=== PATIENT | female | born 1940 | race Caucasian/White ===

== ENCOUNTER 2023-12-28 14:42 | Outpatient (OUT) | payer MEDICARE, SELFPAY ==
[2023-12-28 15:54] LABS: Anion Gap 14.1; BUN Creatinine Ratio 14.8; Calcium 9.8 mg/dL (8.5-10.1); Carbon Dioxide 25.7 mmol/L (21.0-32.0); Chloride 101 mmol/L (98-107); Estimated GFR (African America 21 (>=60); Estimated GFR (Non-African Ame 17 (>=60); Glucose 85 mg/dL (74-106); Potassium 5.8 mmol/L (3.5-5.1); Sodium 135 mmol/L (136-145)
== END 2023-12-28 14:43 | disposition home or self-care (01) ==
LOC: LAB 14:47
PROVIDERS: PCP Nurse Practitioner Family; Visit Provider Physician Assistant
DX: L08.9 Local infection of the skin and subcutaneous tissue, unspecified (principal)
CPT/HCPCS: 36415; 80048

== ENCOUNTER 2024-01-03 09:32 | Outpatient (OUT) | payer MEDICARE, SELFPAY ==
--- OUTSIDE RECORDS SUMMARY | 2024-01-03 09:54 | XMS_ITS | CCD ---
Author Name Unknown Address [address] [facility] [address] [place] [address] Organization [facility] Care Team Providers Care Production Supply Equipment Tender Name Role Phone ABEBE, JIANLIN Unavailable Unavailable ABEBE, JIANLIN Unavailable Unavailable DURBIN, TAN Unavailable Unavailable DURBIN, TAN Unavailable Unavailable ABEEB, JIANLIN Unavailable Unavailable ABEBE, JIANLIN Unavailable Unavailable PAVLOCK, MAX ANAND Unavailable Unavailable PAVLOCK, MAX ANAND Unavailable Unavailable ABEBE, JIANLIN Unavailable Unavailable ABEBE, JIANLIN Unavailable Unavailable PAVLOCK, MAX ANAND Unavailable Unavailable PAVLOCK, MAX ANAND Unavailable Unavailable IA Unavailable Unavailable ABEBE, JIANLIN Unavailable Unavailable KAEL ADKINS Primary Care Unavailable KAEL ADKINS Attending Unavailable KAEL ADKINS Admitting Unavailable REQUEST, NONE LISTED Admitting Unavaila ble REQUEST, NONE LISTED Attending Unavaila ble ARIANNA, STACIA Primary Care Unavailable MISC, DR COOK Consulting Unavailable ARIANNA, STACIA Admitting Unavailable ARIANNA, STACIA Attending Unavailable ARIANNA, STACIA Primary Care Unavailable ARIANNA, STCAIA Admitting Unavailable ARIANNA, STACIA Attending Unavailable ARIANNA, STACIA Primary Care Unavailable JED ., DR SCRUGGS Admitting Unavailable HOMary Jane ., DR SCRUGGS Attending Unavailable ARIANNA, STACIA Primary Care Unavailable HOMary Jane ., DR SCRUGGS Consulting Unavailable MISC, DR COOK Admitting Unavailable MISC, DR COOK Attending Unavailable ARIANNA, STACIA Primary Care Unavailable MISC, DR COOK Consulting Unavailable JED .DR SCRUGGS Admitting Unavailable JED ., DR SCRUGGS Attending Unavailable ARIANNA, STACIA Primary Care Unavailable HOY ., DR SCRUGGS Consulting Unavailable ARIANNA, STACIA Admitting Unavailable ARIANNA, STACIA Attending Unavailable ARIANNA, STACIA Primary Care Unavailable ARIANNA, STACIA Consulting Unavailable Kael Adkins M Primary Care Unavailable Wendy Scott Attending Unavailable Wendy Scott Admitting Unavailable MIAN, MARQUITA A Attending Unavailable Jed THOMAS, Kael Tinoco Primary Care Provider [phone] Allergies Allergy Classification Reported Allergen(s) Allergy Type Date of Onset Reaction(s) Facility (3 sources) codeine Drug Allergy 12-28-19 13 AOF [facility] Repository (1 source) Dust; Translations: [Dust] Propensity to adverse reactions (disorder) 12-28-[address] [facility] Repository (1 source) glycerin Drug Allergy 12-28-[address] [facility] Repository (1 source) Grass pollen; Translations: [grass pollen] Propensity to adverse reactions (disorder) 12-28-[address] [facility] Repository (3 sources) Latex Drug allergy (disorder) 12-28-[address] [facility] Repository (2 sources) meperidine Drug Allergy 12-28-19 [address] [facility] [facility] Repository (2 sources) mold extract; Translations: [Mold] Drug Allergy 12-28-[address] [facility] Repository (3 sources) nitrofurantoin Drug Allergy 12-23-[address] [facility] Repository (1 source) sulfamethoxazole / trimethoprim Drug Allergy 12-28-[address] [facility] Repository (2 sources) Desonide Drug Allergy 06-13-20 13 [facility] Repository (2 sources) Glycerin Drug Allergy 06-13-20 13 [facility] Repository (2 sources) Lidocaine Drug Allergy 06-13-20 13 [facility] Repository (2 sources) Meperidine Drug Allergy 12-23-19 16 [facility] Repository (2 sources) Sulfonamides (Antibiotic) Drug allergy (disorder) 12-23-19 16 [facility] Repository (2 sources) Grass Pollen-[place], Standard Drug allergy (disorder) 06-13-20 13 [facility] Repository (2 sources) Misc-ENV; Translations: [Misc-ENV] Propensity to adverse reactions (disorder) 06-13-20 13 [facility] Repository (1 source) Codeine Drug Allergy 04-08-20 22 [facility] Repository (1 source) Glycerin Drug Allergy 04-08-20 [facility] Repository (1 source) Latex Drug allergy (disorder) 04-08-20 [facility] Repository (1 source) Lidocaine Drug Allergy 04-08-20 [facility] Repository (1 source) Meperidine Drug Allergy 04-08-20 [facility] Repository (1 source) NSAIDs Drug allergy (disorder) 04-08-20 [facility] Repository (1 source) Sulfonamides (Antibiotic) Drug allergy (disorder) 04-08-20 [facility] Repository (1 source) cat dander Drug allergy (disorder) 04-08-20 [facility] Repository Problems Active Problems Problem Classification Problem Date Documented Date Episodic/Chronic Complications of surgical procedures or medical care (1 source) Other postprocedural complications and disorders of digestive system; Translations: [OTH POSTPROCEDURAL COMPLICATIONS AND DISORDERS OF DGSTV SYS] Onset: 06-27-2018 Coronary atherosclerosis and other heart disease (1 source) Atherosclerotic heart disease of [place] coronary artery without angina pectoris; Translations: [ATHSCL HEART DISEASE OF [place] CORONARY ARTERY W/O ANG PCTRS] Onset: 06-27-2018 Chronic Diabetes mellitus with complications (1 source) Type 2 diabetes mellitus with diabetic neuropathy, unspecified; Translations: [TYPE 2 DIABETES MELLITUS WITH DIABETIC NEUROPATHY, UNSP] Onset: 06-27-2018 Esophageal disorders (1 source) Gastro-esophageal reflux disease without esophagitis; Translations: [GASTRO-ESOPHAGEAL REFLUX DISEASE WITHOUT ESOPHAGITIS] Onset: 06-27-2018 Chronic Essential hypertension (1 source) Essential (primary) hypertension; Translations: [ESSENTIAL (PRIMARY) HYPERTENSION] Onset: 05-24-2018 Chronic Fracture of upper limb (5 sources) Displaced fracture of distal phalanx of unspecified thumb, initial encounter for closed fracture; Translations: [Fracture of unspecified phalanx of unspecified finger, initial encounter for closed fracture] Onset: 11-16-2022 Episodic Mood disorders (1 source) Dysthymic disorder; Translations: [DYSTHYMIC DISORDER] Onset: 11-19-2022 Chronic Mood disorders (1 source) Major depressive disorder, single episode, unspecified; Translations: [MAJOR DEPRESSIVE DISORDER, SINGLE EPISODE, UNSPECIFIED] Onset: 06-27-2018 Open wounds of extremities (1 source) Laceration without foreign body of right index finger without damage to nail, initial encounter; Translations: [LAC W/O FB RT IF W/O DMG NAIL INIT] Onset: 11-19-2022 Episodic Osteoarthritis (1 source) Primary osteoarthritis, right hand; Translations: [PRIMARY OSTEOARTHRITIS RIGHT HAND] Onset: 11-19-2022 Chronic Other connective tissue disease (1 source) Impingement syndrome of right shoulder; Translations: [IMPINGEMENT SYNDROME RIGHT SHOULDER] Onset: 11-19-2022 Episodic Other connective tissue disease (1 source) Trigger finger, right index finger; Translations: [TRIGGER FINGER RIGHT INDEX FINGER] Onset: 11-19-2022 Episodic Other ear and sense organ disorders (1 source) Impacted cerumen of bilateral ears; Translations: [Impacted cerumen, bilateral] 12-14-2023 Episodic Other nervous system disorders (1 source) Complex regional pain syndrome I of right upper limb; Translations: [COMPLEX RGN PAIN SYND I RT UP LIMB] Onset: 11-19-2022 Chronic Unclassified (1 source) Other complications of procedures, not elsewhere classified, initial encounter; Translations: [Other complications of procedures, not elsewhere classified, initial encounter] Onset: 11-03-2023 Urinary tract infections (4 sources) Urinary tract infection, site not specified; Translations: [UTI SITE NOT SPECIFIED] Onset: 01-22-2023 Episodic Past or Other Problems Problem Classification Problem Date Documented Da te Episodic/Chronic Allergic reactions (4 sources) Latex allergy status; Translations: [Allergy status to other antibiotic agents status] Onset: 06-27-2018 Episodic Genitourinary symptoms and ill-defined conditions (4 sources) Unspecified symptoms and signs involving the genitourinary system; Translations: [UNS SYMPTOMS SIGNS INVLV SYSTEM] Onset: 02-08-2022 Episodic Other aftercare (4 sources) Encounter for therapeutic drug level monitoring; Translations: [ENCOUNTER FOR THERAPEUTIC DRUG LEVEL MONITORING] Onset: 05-24-2018 Episodic Other aftercare (1 source) Other manager terminal (current) drug therapy; Translations: [OTHER ALF (CURRENT) DRUG THERAPY] Onset: 05-24-2018 Episodic Other gastrointestinal disorders (4 sources) Fistula of intestine; Translations: [FISTULA OF INTESTINE] Onset: 04-19-2018 Episodic Screening or history of mental health and substance abuse (1 source) Personal history of nicotine dependence; Translations: [PERSONAL HISTORY OF NICOTINE DEPENDENCE] Onset: 06-27-2018 Episodic Unclassified (2 sources) Unknown / UNK(Unknown) Onset: 05-24-2018 Results Test Name Value Interpretation Reference Range Facility CULTURE URINEon 01-22-2023 CULTURE URINE Culture Observations : NO GROWTH. Normal [facility] Comment on above: Performed By: #### U A #### [facility] [address] [address] [address] Noreen Castro UA RANDOM W/MICROSCOPICon BACTERIA NONE SEEN Normal NONE SEEN [facility] Comment on above: Performed By: #### U AMIC #### [facility] [address] [place] [address] Dr. Noreen Castro Bilirubin Ql (U) Negative Normal NEGATIVE [facility] Comment on above: Performed By: #### U AMIC #### [facility] [address] [place] [address] Dr. Noreen Castro CAST NONE SEEN Normal NONE SEEN [facility] Comment on above: Performed By: #### U AMIC #### [facility] [address] [address] [address] Noreen Castro Clarity (U) SL CLOUDY Abnormal CLEAR [facility] Comment on above: Performed By: #### U AMIC #### [facility] [address] [address] [address] Noreen Castro Color (U) LT. YELLOW Normal YELLOW [facility] Comment on above: Performed By: #### U AMIC #### [facility] [address] [address] [address] Noreen Castro Crystals LM Nom (Urine sed) NONE SEEN Normal NONE SEEN [facility] Comment on above: Performed By: #### U AMIC #### [facility] [address] [place] [address] Dr. Noreen Castro Epithelial cells LM Ql (Urine sed) FEW Abnormal NONE SEEN /RARE [facility] Comment on above: Performed By: #### U AMIC #### [facility] [address] [place] [address] Dr. Noreen Castro Glucose Ql (U) Negative Normal NEGATIVE [facility] Comment on above: Performed By: #### U AMIC #### [facility] [address] [address] [address] Noreen Castro Hemoglobin Ql (U) Negative Normal NEGATIVE [facility] Comment on above: Performed By: #### U AMIC #### [facility] [address] [address] [address] Noreen Castro Ketones Ql (U) Negative Normal NEGATIVE [facility] Comment on above: Performed By: #### U AMIC #### [facility] [address] [address] [address] Noreen Castro LEUKOCYTES Negative Normal NEGATIVE [facility] Comment on above: Performed By: #### U AMIC #### [facility] [address] [place] [address] Dr. Noreen Castro MUCOUS NONE SEEN Normal NONE SEEN [facility] Comment on above: Performed By: #### U AMIC #### [facility] [address] [address] [address] Noreen Castro Nitrite Ql (U) Negative Normal NEGATIVE [facility] Comment on above: Performed By: #### U AMIC #### [facility] [address] [place] [address] Dr. Noreen Castro pH (U) 6.0 [pH] Normal 5-9 [facility] Comment on above: Performed By: #### U AMIC #### [facility] [address] [place] [address] Dr. Noreen Castro RBC NONE SEEN Abnormal 0-2 [facility] Comment on above: Performed By: #### U AMIC #### [facility] [address] [place] [address] Dr. Noreen Castro SPEC GRAVITY 1.015 Normal 1.005-<=1.02 5 [facility] Comment on above: Performed By: #### U AMIC #### [facility] [address] [address] [address] Noreen Castro UA PROTEIN TRACE Normal NEGATIVE/ TRACE [facility] Comment on above: Performed By: #### U AMIC #### [facility] [address] [place] [address] Dr. Noreen Castro Urobilinogen Qn (U) 0.2 {Scarlett'U}/dL Normal 0.2 - 1.0 [facility] Comment on above: Performed By: #### U AMIC #### [facility] [address] [place] [address] Dr. Noreen Castro WBC 0-2 Abnormal NONE SEEN [facility] Comment on above: Performed By: #### U AMIC #### [facility] [address] [place] [address] Dr. Noreen Castro BILIRUBIN CONJUGATED (DIRECT )on 11-16-2022 BILI, CONJUGATED 0.1 mg/dL Normal 0.0-0.2 [facility] Comment on above: Performed By: #### D NATASHA, CMP #### [facility] [address] [place] [address] Dr. oNreen Castro CBC AUTO DIFFon 11-16-2022 BASO # 0.1 103/ul Normal 0.0-0.1 [facility] Comment on above: Performed By: #### C BC #### [facility] [address] [place] [address] Dr. Noreen Castro Basophils/100 WBC (Bld) 0.6 % Normal 0.2-2.0 [facility] Comment on above: Performed By: #### C BC #### [facility] [address] [place] [address] Dr. Noreen Castro EO # 0.2 103/ul Normal 0.0-0.7 [facility] Comment on above: Performed By: #### C BC #### [facility] [address] [place] [address] Dr. Noreen Castro Eosinophils/100 WBC (Bld) 1.8 % Normal 0.9-7.0 [facility] Comment on above: Performed By: #### C BC #### [facility] [address] [place] [address] Dr. Noreen Castro Erythrocyte distribution width (RBC) [Ratio] 14.1 % Normal 11.0-15.0 [facility] Comment on above: Performed By: #### C BC #### [facility] [address] [place] [address] Dr. Noreen Castro Hematocrit (Bld) [Volume fraction] 35.0 % Critically low 36.0-48.0 [facility] Comment on above: Performed By: #### C BC #### [facility] [address] [place] [address] Dr. Noreen Castro Hemoglobin (Bld) [Mass/Vol] 12.0 g/dL Normal 12.0-16.0 [facility] Comment on above: Performed By: #### C BC #### [facility] [address] [place] [address] Dr. Noreen Castro IG # 0.07 10e3/ul Critically high 0.00-0.03 [facility] Comment on above: Performed By: #### C BC #### [facility] [address] [place] [address] Dr. Noreen Castro IG % 0.7 % Critically high 0.0-0.5 [facility] Comment on above: Performed By: #### C BC #### [facility] [address] [place] [address] Dr. Noreen Castro LYMPH # 2.8 103/ul Normal 1.2-3.8 [facility] Comment on above: Performed By: #### C BC #### [facility] [address] [place] [address] Dr. Noreen Castro Lymphocytes/100 WBC (Bld) 27.1 % Normal 20.5-60.0 [facility] Comment on above: Performed By: #### C BC #### [facility] [address] [place] [address] Dr. Noreen Castro MANUAL DIFF REQ NO Normal [facility] Comment on above: Performed By: #### C BC #### [facility] [address] [place] [address] Dr. Noreen Castro MCH (RBC) [Entitic mass] 31.1 pg Normal 26.7-34.0 [facility] Comment on above: Performed By: #### C BC #### [facility] [address] [address] [address] Noreen Castro MCHC (RBC) [Mass/Vol] 34.3 g/dL Normal 29.9-35.2 [facility] Comment on above: Performed By: #### C BC #### [facility] [address] [address] [address] Noreen Castro MCV (RBC) [Entitic vol] 90.7 fL Normal 81.0-99.0 [facility] Comment on above: Performed By: #### C BC #### [facility] [address] [address] [address] Noreen Castro MONO # 0.8 103/ul Normal 0.3-0.8 [facility] Comment on above: Performed By: #### C BC #### [facility] [address] [place] [address] Dr. Noreen Castro Monocytes/100 WBC (Bld) 8.0 % Normal 1.7-12.0 [facility] Comment on above: Performed By: #### C BC #### [facility] [address] [place] [address] Dr. Noreen Castro NEUT # 6.3 103/ul Normal 1.4-6.5 [facility] Comment on above: Performed By: #### C BC #### [facility] [address] [place] [address] Dr. Noreen Castro Neutrophils/100 WBC (Bld) 61.8 % Normal 43.0-75.0 [facility] Comment on above: Performed By: #### C BC #### [facility] [address] [place] [address] Dr. Noreen Castro Platelet mean volume (Bld) [Entitic vol] 9.6 fL Normal 9.5-13.5 [facility] Comment on above: Performed By: #### C BC #### [facility] [address] [place] [address] Dr. Noreen Castro PLT 210 103/ul Normal 150-450 [facility] Comment on above: Performed By: #### C BC #### [facility] [address] [address] [address] Noreen Castro RBC 3.86 106/ul Critically low 4.20-5.40 [facility] Comment on above: Performed By: #### C BC #### [facility] [address] [place] [address] Dr. Noreen Castro WBC 10.1 103/ul Normal 4.0-11.0 [facility] Comment on above: Performed By: #### C BC #### [facility] [address] [address] [address] Noreen Castro PROF 14(COMP METB)on 023 Albumin [Mass/Vol] 3.8 g/dL Normal 3.4-5.0 [facility] Comment on above: Performed By: #### D NATASHA, CMP #### [facility] [address] [place] [address] Dr. Noreen Castro Albumin/Globulin [Mass ratio] 1.1 {ratio} Normal [facility] Comment on above: Performed By: #### D NATASHA, CMP #### [facility] [address] [place] [address] Dr. Noreen Castro ALP [Catalytic activity/Vol] 76 U/L Normal 46-116 [facility] Comment on above: Performed By: #### D NATASHA, CMP #### [facility] [address] [place] [address] Dr. Noreen Castro ALT [Catalytic activity/Vol] 15 U/L Normal 14-59 [facility] Comment on above: Performed By: #### D NATASHA, CMP #### [facility] [address] [place] [address] Dr. Noreen Castro Anion gap [Moles/Vol] 12.7 mmol/L Normal [facility] Comment on above: Performed By: #### D NATASHA, CMP #### [facility] [address] [place] [address] Dr. Noreen Castro AST [Catalytic activity/Vol] 19 U/L Normal 15-37 [facility] Comment on above: Performed By: #### D NATASHA, CMP #### [facility] [address] [address] [address] Noreen Castro Bilirubin [Mass/Vol] 0.3 mg/dL Normal 0.2-1.0 [facility] Comment on above: Performed By: #### D NATASHA, CMP #### [facility] [address] [place] [address] Dr. Noreen Castro Calcium [Mass/Vol] 9.6 mg/dL Normal 8.5-10.1 [facility] Comment on above: Performed By: #### D NATASHA, CMP #### [facility] [address] [address] [address] Noreen Castro Chloride [Moles/Vol] 100 mmol/L Normal 98-107 [facility] Comment on above: Performed By: #### D NATASHA, CMP #### [facility] [address] [place] [address] Dr. Noreen Castro CO2 [Moles/Vol] 29.4 mmol/L Normal 21.0-32.0 [facility] Comment on above: Performed By: #### D NATASHA, CMP #### [facility] [address] [address] [address] Noreen Castro Creatinine [Mass/Vol] 2.18 mg/dL Critically high 0.55-1.02 [facility] Comment on above: Performed By: #### D NATASHA, CMP #### [facility] [address] [place] [address] Dr. Noreen Castro EGFR-AF UGANDAN 26 mL/min/1.73m2 Critically low >=60 [facility] Comment on above: Performed By: #### D NATASHA, CMP #### [facility] [address] [place] [address] Dr. Noreen Castro EGFR-NON AF UGANDAN 22 mL/min/1.73m2 Critically low >=60 [facility] Comment on above: Performed By: #### D NATASHA, CMP #### [facility] [address] [place] [address] Dr. Noreen Castro Globulin (S) [Mass/Vol] 3.6 g/dL Normal [facility] Comment on above: Performed By: #### D NATASHA, CMP #### [facility] [address] [address] [address] Noreen Castro Glucose [Mass/Vol] 89 mg/dL Normal 74-106 [facility] Comment on above: Performed By: #### D NATASHA, CMP #### [facility] [address] [address] [address] Noreen Castro Potassium [Moles/Vol] 5.1 mmol/L Normal 3.5-5.1 [facility] Comment on above: Performed By: #### D NATASHA, CMP #### [facility] [address] [address] [address] Noreen Castro Protein [Mass/Vol] 7.4 g/dL Normal 6.4-8.2 [facility] Comment on above: Performed By: #### D NATASHA, CMP #### [facility] [address] [place] [address] Dr. Noreen Castro Sodium [Moles/Vol] 137 mmol/L Normal 136-145 [facility] Comment on above: Performed By: #### D NATASHA, CMP #### [facility] [address] [address] [address] Noreen Castro Urea nitrogen [Mass/Vol] 27.0 mg/dL Critically high 7.0-18.0 [facility] Comment on above: Performed By: #### D NATASHA, CMP #### [facility] [address] [place] [address] Dr. Noreen Castro Urea nitrogen/Creatinin e [Mass ratio] 12.4 mg/mg Normal [facility] Comment on above: Performed By: #### D NATASHA, CMP #### [facility] [address] [place] [address] Dr. Noreen Castro Provider Orderson 08-31-2022 Provider Orders [id number] Normal [facility] C Urineon 08-30-2022 C Urine <10,000 cfu/ml Normal [facility] Comment on above: Performed By: #### [id number] #### [facility] (DEFAULT) [address] [place] [address] UA Standardon 08-28-2022 Breakpoint UA Normal [facility] Comment on above: Performed By: #### 1 [id number] #### [facility] (DEFAULT) [address] [place] [address] Color (U) Yellow Normal [facility] Comment on above: Performed By: #### 1 [id number] #### [facility] (DEFAULT) [address] [place] [id number] Glucose (U) [Mass/Vol] Negative [facility] Comment on above: Performed By: #### 1 [id number] #### [facility] (DEFAULT) [address] [place] [address] Ketones Ql (U) Negative Normal [facility] [facility] Comment on above: Performed By: #### 1 [id number] #### [facility] (DEFAULT) [address] [place] [address] UA Bilirubin Negative Normal [facility] Comment on above: Performed By: #### 1 [id number] #### [facility] (DEFAULT) [address] [place] [id number] UA Blood Negative Normal NEGATIVE [facility] Comment on above: Performed By: #### 1 [id number] #### [facility] (DEFAULT) [address] [place] [id number] UA Clarity CLEAR Normal CLEAR [facility] Comment on above: Performed By: #### 1 [id number] #### [facility] (DEFAULT) [address] [place] [id number] UA Leuk Est TRACE Abnormal NEGATIVE [facility] Comment on above: Performed By: #### 1 [id number] #### [facility] (DEFAULT) [address] [place] [address] UA Nitrite Negative Normal NEGATIVE [facility] Comment on above: Performed By: #### 1 [id number] #### [facility] (DEFAULT) [address] [place] [address] UA pH 6.0 Normal 5-8 [facility] Comment on above: Performed By: #### 1 [id number] #### [facility] (DEFAULT) [address] [place] [id number] UA Protein TRACE Abnormal NEGATIVE [facility] Comment on above: Performed By: #### 1 [id number] #### [facility] (DEFAULT) [address] [place] [address] UA Spec Grav 1.020 Normal 1.001-1.035 [facility] Comment on above: Performed By: #### 1 [id number] #### [facility] (DEFAULT) [address] [place] [address] UA Urobilinogen 0.2 mg/dL Normal 0.2-1.0 [facility] Comment on above: Performed By: #### 1 [id number] #### [facility] (DEFAULT) [address] [place] [address] Urine Source Clean Catch Normal [facility] Comment on above: Performed By: #### 1 [id number] #### [facility] (DEFAULT) [address] [place] [address] BILIRUBIN CONJUGATED (DIRECT )on 02-11-2022 BILI, CONJUGATED 0.1 mg/dL Normal 0.0-0.3 [facility] Comment on above: Performed By: #### C MP DBIL #### [facility] [address] [place] [address] Dr. Noreen Castro CBC AUTO DIFFon 02-11-2022 BASO # 0.1 103/ul Normal 0.0-0.1 [facility] Comment on above: Performed By: #### U A #### [facility] [address] [place] [address] Dr. Noreen Castro Basophils/100 WBC (Bld) 0.6 % Normal 0.2-2.0 [facility] Comment on above: Performed By: #### U A #### [facility] [address] [place] [address] Dr. Noreen Castro EO # 0.2 103/ul Normal 0.0-0.7 [facility] Comment on above: Performed By: #### U A #### [facility] [address] [place] [address] Dr. Noreen Castro Eosinophils/100 WBC (Bld) 1.2 % Normal 0.9-7.0 [facility] Comment on above: Performed By: #### U A #### [facility] [address] [place] [address] Dr. Noreen Castro Erythrocyte distribution width (RBC) [Ratio] 14.4 % Normal 11.0-15.0 [facility] Comment on above: Performed By: #### U A #### [facility] [address] [place] [address] Dr. Noreen Castro Hematocrit (Bld) [Volume fraction] 39.0 % Normal 36.0-48.0 [facility] Comment on above: Performed By: #### U A #### [facility] [address] [place] [address] Dr. Noreen Castro Hemoglobin (Bld) [Mass/Vol] 12.3 g/dL Normal 12.0-16.0 [facility] Comment on above: Performed By: #### U A #### [facility] [address] [place] [address] Dr. Noreen Castro IG # 0.20 10e3/ul Critically high 0.00-0.03 [facility] Comment on above: Performed By: #### U A #### [facility] [address] [place] [address] Dr. Noreen Castro IG % 1.4 % Critically high 0.0-0.5 [facility] Comment on above: Performed By: #### U A #### [facility] [address] [place] [address] Dr. Noreen Castro LYMPH # 4.4 103/ul Critically high 1.2-3.8 [facility] Comment on above: Performed By: #### U A #### [facility] [address] [place] [address] Dr. Noreen Castro Lymphocytes/100 WBC (Bld) 30.4 % Normal 20.5-60.0 [facility] Comment on above: Performed By: #### U A #### [facility] [address] [place] [address] Dr. Noreen Castro MANUAL DIFF REQ NO Normal [facility] Comment on above: Performed By: #### U A #### [facility] [address] [place] [address] Dr. Noreen Castro MCH (RBC) [Entitic mass] 30.8 pg Normal 26.7-34.0 [facility] Comment on above: Performed By: #### U A #### [facility] [address] [place] [address] Dr. Noreen Castro MCHC (RBC) [Mass/Vol] 31.5 g/dL Normal 29.9-35.2 [facility] Comment on above: Performed By: #### U A #### [facility] [address] [place] [address] Dr. Noreen Castro MCV (RBC) [Entitic vol] 97.5 fL Normal 81.0-99.0 [facility] Comment on above: Performed By: #### U A #### [facility] [address] [place] [address] Dr. Noreen Castro MONO # 1.0 103/ul Critically high 0.3-0.8 [facility] Comment on above: Performed By: #### U A #### [facility] [address] [place] [address] Dr. Noreen Castro Monocytes/100 WBC (Bld) 6.8 % Normal 1.7-12.0 [facility] Comment on above: Performed By: #### U A #### [facility] [address] [place] [address] Dr. Noreen Castro NEUT # 8.6 103/ul Critically high 1.4-6.5 [facility] Comment on above: Performed By: #### U A #### [facility] [address] [place] [address] Dr. Noreen Castro Neutrophils/100 WBC (Bld) 59.6 % Normal 43.0-75.0 [facility] Comment on above: Performed By: #### U A #### [facility] [address] [place] [address] Dr. Noreen Castro Platelet mean volume (Bld) [Entitic vol] 9.9 fL Normal 9.5-13.5 [facility] Comment on above: Performed By: #### U A #### [facility] [address] [place] [address] Dr. Noreen Castro PLT 283 103/ul Normal 150-450 [facility] Comment on above: Performed By: #### U A #### [facility] [address] [place] [address] Dr. Noreen Castro RBC 4.00 106/ul Critically low 4.20-5.40 [facility] Comment on above: Performed By: #### U A #### [facility] [address] [place] [address] Dr. Noreen Castro WBC 14.5 103/ul Critically high 4.0-11.0 [facility] Comment on above: Performed By: #### U A #### [facility] [address] [place] [address] Dr. Noreen Castro CULTURE URINEon 02-11-2022 CULTURE URINE Isolate 1 Escherichia coli >100,000 cfu/mL of ORGANISM 1 Escherichia coli ANTIBIOTIC M.I.C RX STATUS Ampicillin >=32 R F Ampicillin/Sulbactam 4 S F Piperacillin/Tazobactam <=4 S F Cefazolin 8 S F Ceftazidime <=1 S F Ceftriaxone <=1 S F Ertapenem <=0.5 S F Imipenem <=0.25 S F Amikacin <=2 S F Gentamicin <=1 S F Tobramycin <=1 S F Ciprofloxacin >=4 R F Levofloxacin >=8 R F Nitrofurantoin <=16 S F Trimethoprim/Sulfamethoxaz ole >=320 R F Normal [facility] Comment on above: Performed By: #### U RCX #### [facility] [address] [place] [address] Dr. Noreen Castro DRUG SCREEN RAPID (URINE)on 02-11-2022 AMP Negative Normal NEGATIVE [facility] Comment on above: Performed By: #### U A #### [facility] [address] [place] [address] Dr. Noreen Castro BAR Negative Normal NEGATIVE [facility] Comment on above: Performed By: #### U A #### [facility] [address] [place] [address] Dr. Noreen Castro BUP Negative Normal NEGATIVE [facility] Comment on above: Performed By: #### U A #### [facility] [address] [place] [address] Dr. Noreen Castor BZO Negative Normal NEGATIVE [facility] Comment on above: Performed By: #### U A #### [facility] [address] [place] [address] Dr. Noreen Castro VERONICA Negative Normal NEGATIVE [facility] Comment on above: Performed By: #### U A #### [facility] [address] [place] [address] Dr. Noreen Castro CUT-OFFS SEE BELOW Normal [facility] Comment on above: Result Comment: AMP (Amphetamine): 500ng/mL, BAR (Barbituates): 200 ng/mL, BZO (Benzodiazepines): 150 ng/mL, BUP (Buprenorphine): 10 ng/mL, VERONICA (Cocaine): 150 ng/mL, mAMP (Methamphetamine): 500 ng/mL, MTD (Methadone): 200 ng/mL, OPI (Opiates): 100 ng/mL, OXY (Oxycodone): 100 ng/mL, PCP (Phencyclidine): 25 ng/mL, PPX (Propoxyphene): 300 ng/mL, THC (Cannabinoids): 50 ng/mL, TCA (Trycyclic Antidepressants): 300 ng/mL Performed By: #### U A #### [facility] [address] [place] [address] Dr. Noreen Castro DRUG CUT HEADER DRUG CLASS TEST SYST EM CUT-OFF CONCENTRATIONS ARE FOLLOWS: Normal [facility] Comment on above: Performed By: #### U A #### [facility] [address] [place] [address] Dr. Noreen Castro mAMP Negative Normal NEGATIVE [facility] Comment on above: Performed By: #### U A #### [facility] [address] [place] [address] Dr. Noreen Castro MTD Negative Normal NEGATIVE [facility] Comment on above: Performed By: #### U A #### [facility] [address] [place] [address] Dr. Noreen Castro OPI Negative Normal NEGATIVE [facility] Comment on above: Performed By: #### U A #### [facility] [address] [place] [address] Dr. Noreen Castro OXY Negative Normal NEGATIVE [facility] Comment on above: Performed By: #### U A #### [facility] [address] [place] [address] Dr. Noreen Castro PCP Negative Normal NEGATIVE [facility] Comment on above: Performed By: #### U A #### [facility] [address] [place] [address] Dr. Noreen Castro PPX Negative Normal NEGATIVE [facility] Comment on above: Performed By: #### U A #### [facility] [address] [place] [address] Dr. Noreen Castro TCA Positive Abnormal NEGATIVE [facility] Comment on above: Performed By: #### U A #### [facility] [address] [place] [address] Dr. Noreen Castro THC Negative Normal NEGATIVE [facility] Comment on above: Performed By: #### U A #### [facility] [address] [place] [address] Dr. Noreen Castro PROF 14(COMP METB)on 022 Albumin [Mass/Vol] 3.9 g/dL Normal 3.4-5.0 [facility] Comment on above: Performed By: #### C MP, DBIL #### [facility] [address] [place] [address] Dr. Noreen Castro Albumin/Globulin [Mass ratio] 0.9 {ratio} Normal [facility] Comment on above: Performed By: #### C MP, DBIL #### [facility] [address] [place] [address] Dr. Noreen Castro ALP [Catalytic activity/Vol] 76 U/L Normal 46-116 [facility] Comment on above: Performed By: #### C MP, DBIL #### [facility] [address] [address] [address] Noreen Castro ALT [Catalytic activity/Vol] 39 U/L Normal 14-59 [facility] Comment on above: Performed By: #### C MP, DBIL #### [facility] [address] [address] [address] Noreen Castro Anion gap [Moles/Vol] 18.4 mmol/L Normal [facility] Comment on above: Performed By: #### C MP, DBIL #### [facility] [address] [address] [address] Noreen Castro AST [Catalytic activity/Vol] 30 U/L Normal 15-37 [facility] Comment on above: Performed By: #### C MP, DBIL #### [facility] [address] [place] [address] Dr. Noreen Castro Bilirubin [Mass/Vol] 0.4 mg/dL Normal 0.2-1.3 [facility] Comment on above: Performed By: #### C MP, DBIL #### [facility] [address] [address] [address] Noreen Castro Calcium [Mass/Vol] 9.2 mg/dL Normal 8.5-10.1 [facility] Comment on above: Performed By: #### C MP, DBIL #### [facility] [address] [place] [address] Dr. Noreen Castro Chloride [Moles/Vol] 99 mmol/L Normal 98-107 [facility] Comment on above: Performed By: #### C MP, DBIL #### [facility] [address] [address] [address] Noreen Castro CO2 [Moles/Vol] 22.2 mmol/L Normal 22.0-30.0 [facility] Comment on above: Performed By: #### C MP, DBIL #### [facility] [address] [address] [address] Noreen Castro Creatinine [Mass/Vol] 2.72 mg/dL Critically high 0.52-1.04 [facility] Comment on above: Performed By: #### C MP, DBIL #### [facility] [address] [address] [address] Noreen Castro EGFR-AF UGANDAN 20 mL/min/1.73m2 Critically low >=60 [facility] Comment on above: Performed By: #### C MP, DBIL #### [facility] [address] [address] [address] Noreen Castro EGFR-NON AF UGANDAN 17 mL/min/1.73m2 Critically low >=60 [facility] Comment on above: Performed By: #### C MP, DBIL #### [facility] [address] [address] [address] Noreen Castro Globulin (S) [Mass/Vol] 4.3 g/dL Normal [facility] Comment on above: Performed By: #### C MP, DBIL #### [facility] [address] [address] [address] Noreen Castro Glucose [Mass/Vol] 143 mg/dL Critically high 74-106 T [facility] Comment on above: Performed By: #### C MP, DBIL #### [facility] [address] [address] [address] Noreen Castro Potassium [Moles/Vol] 5.6 mmol/L Critically high 3.4-5.0 [facility] Comment on above: Performed By: #### C MP, DBIL #### [facility] [address] [address] [address] Noreen Castro Protein [Mass/Vol] 8.2 g/dL Normal 6.1-8.2 [facility] Comment on above: Performed By: #### C MP, DBIL #### [facility] [address] [address] [address] Noreen Castro Sodium [Moles/Vol] 134 mmol/L Critically low 137-145 Th [facility] Comment on above: Performed By: #### C MP, DBIL #### [facility] [address] [address] [address] Noreen Castro Urea nitrogen [Mass/Vol] 36.0 mg/dL Critically high 7.0-18.0 [facility] Comment on above: Performed By: #### C GALE, DBIL #### [facility] [address] [place] [address] Dr. Noreen Castro Urea nitrogen/Creatinin e [Mass ratio] 13.2 mg/mg Normal [facility] Comment on above: Performed By: #### C GALE, DBIL #### [facility] [address] [place] [address] Dr. Noreen Castro UA RANDOMon 02-08-2022 Bilirubin Ql (U) Negative Normal NEGATIVE [facility] Comment on above: Performed By: #### U A #### [facility] [address] [place] [address] Dr. Noreen Castro Clarity (U) SL CLOUDY Abnormal CLEAR [facility] Comment on above: Performed By: #### U A #### [facility] [address] [place] [address] Dr. Noreen Castro Color (U) LT. YELLOW Normal YELLOW [facility] Comment on above: Performed By: #### U A #### [facility] [address] [place] [address] Dr. Noreen Castro Glucose Ql (U) Negative Normal NEGATIVE [facility] Comment on above: Performed By: #### U A #### [facility] [address] [place] [address] Dr. Noreen Castro Hemoglobin Ql (U) TRACE-INTACT Abnormal NEGATIVE [facility] Comment on above: Performed By: #### U A #### [facility] [address] [place] [address] Dr. Noreen Castro Ketones Ql (U) Negative Normal NEGATIVE [facility] Comment on above: Performed By: #### U A #### [facility] [address] [place] [address] Dr. Noreen Castro LEUKOCYTES MODERATE Abnormal NEGATIVE [facility] Comment on above: Performed By: #### U A #### [facility] [address] [place] [address] Dr. Noreen Castro Nitrite Ql (U) Positive Abnormal NEGATIVE [facility] Comment on above: Performed By: #### U A #### [facility] [address] [place] [address] Dr. Noreen Castro pH (U) 5.0 [pH] Normal 5-9 [facility] Comment on above: Performed By: #### U A #### [facility] [address] [place] [address] Dr. Noreen Castro SPEC GRAVITY 1.020 Normal 1.005-<=1.02 5 [facility] Comment on above: Performed By: #### U A #### [facility] [address] [place] [address] Dr. Noreen PALM PROTEIN TRACE Normal NEGATIVE/ TRACE [facility] Comment on above: Performed By: #### U A #### [facility] [address] [place] [address] Dr. Noreen Castro Urobilinogen Qn (U) 0.2 {Scarlett'U}/dL Normal 0.2 - 1.0 [facility] Comment on above: Performed By: #### U A #### [facility] [address] [place] [address] Dr. Noreen Castro CULTURE URINEon 02-01-2022 CULTURE URINE Culture Observations : No growth Normal [facility] Comment on above: Performed By: #### U RCX #### [facility] [address] [place] [address] Dr. Noreen Castro UA RANDOMon 02-01-2022 Bilirubin Ql (U) Negative Normal NEGATIVE [facility] Comment on above: Performed By: #### U A #### [facility] [address] [place] [address] Dr. Noreen Castro Clarity (U) CLEAR Normal CLEAR [facility] Comment on above: Performed By: #### U A #### [facility] [address] [place] [address] Dr. Noreen Castro Color (U) YELLOW Normal YELLOW [facility] Comment on above: Performed By: #### U A #### [facility] [address] [place] [address] Dr. Noreen Castro Glucose Ql (U) Negative Normal NEGATIVE [facility] Comment on above: Performed By: #### U A #### [facility] [address] [place] [address] Dr. Noreen Castro Hemoglobin Ql (U) SMALL Abnormal NEGATIVE [facility] Comment on above: Performed By: #### U A #### [facility] [address] [place] [address] Dr. Noreen Castro Ketones Ql (U) Negative Normal NEGATIVE [facility] Comment on above: Performed By: #### U A #### [facility] [address] [place] [address] Dr. Noreen Castro LEUKOCYTES Negative Normal NEGATIVE [facility] Comment on above: Performed By: #### U A #### [facility] [address] [place] [address] Dr. Noreen Castro Nitrite Ql (U) Negative Normal NEGATIVE [facility] Comment on above: Performed By: #### U A #### [facility] [address] [place] [address] Dr. Noreen Castro pH (U) 5.0 [pH] Normal 5-9 [facility] Comment on above: Performed By: #### U A #### [facility] [address] [place] [address] Dr. Noreen Castro SPEC GRAVITY 1.025 Normal 1.005-<=1.02 5 [facility] Comment on above: Performed By: #### U A #### [facility] [address] [place] [address] Dr. Noreen Castro UA PROTEIN Negative Normal NEGATIVE/ TRACE [facility] Comment on above: Performed By: #### U A #### [facility] [address] [place] [address] Dr. Noreen Castro Urobilinogen Qn (U) 0.2 {Scarlett'U}/dL Normal 0.2 - 1.0 [facility] Comment on above: Performed By: #### U A #### [facility] [address] [place] [address] Dr. Noreen Castro POC GLUCOSE LABon 07-19-2018 Glucose mass conc 97 mg/dL Normal 70-[address] [facility] Comment on above: Performed By: #### 0 0121 ####[facility] [place] [address], [facility] Glucose mass conc 110 mg/dL High 70-[address] [facility] Comment on above: Performed By: #### 0 0121 ####[facility] [place] [address], [facility] Glucose mass conc 93 mg/dL Normal 70-[address] [facility] Comment on above: Performed By: #### 0 0121 ####[facility] [place] [address], [facility] Glucose mass conc 92 mg/dL Normal 70-[address] [facility] Comment on above: Performed By: #### 0 0121 ####[facility] [facility].[address] CBC COMPLETE BLOOD COUNTon 0 07-18-2018 Erythrocyte distribution width Auto Ratio (RBC) 14.0 % Normal 11.5-15.0 [facility] Comment on above: Order Comment: No: D o not add to previous draw Performed By: #### 0 0121 ####[facility] [facility] Hematocrit Auto Volume Fraction (Bld) 32.3 % Low 36.0-45.[address] [facility] Comment on above: Order Comment: No: D o not add to previous draw Performed By: #### 0 0121 ####[facility] [facility] [id number], [facility] Hemoglobin mass conc (Bld) 10.1 g/dL Low 12.0-15.[address] [facility] Comment on above: Order Comment: No: D o not add to previous draw Performed By: #### 0 0121 ####[facility] MCH Auto Entitic mass (RBC) 29.6 pg Normal 27.0-33.[address] [facility] Comment on above: Order Comment: No: D o not add to previous draw Performed By: #### 0 0121 ####[facility] MCHC Auto mass conc (RBC) 31.3 g/dL Low 32.0-35.[address] [facility] Comment on above: Order Comment: No: D o not add to previous draw Performed By: #### 0 0121 ####[facility] [facility].[address] MCV Auto Entitic volume (RBC) 94.7 fL Normal 82.0-98.[address] [facility] Comment on above: Order Comment: No: D o not add to previous draw Performed By: #### 0 0121 ####[facility]3000 [facility].[address] Nucleated RBC/100 WBC Ratio (Bld) 0 % Normal 0-[address] [facility] Comment on above: Order Comment: No: D o not add to previous draw Performed By: #### 0 0121 ####[facility]3000 [facility].[address] PLAT CNT 372 10*3/uL Normal 150-[address] [facility] Comment on above: Order Comment: No: D o not add to previous draw Performed By: #### 0 0121 ####[facility]3000 [facility].[address] RBC Auto #/vol (Bld) 3.41 10*6/uL Low 3.80-5.[address] [facility] Comment on above: Order Comment: No: D o not add to previous draw Performed By: #### 0 0121 ####[facility]3000 [facility].[address] WBC Auto #/vol (Bld) 8.69 10*3/uL Normal 4.00-10.[address] [facility] Comment on above: Order Comment: No: D o not add to previous draw Performed By: #### 0 0121 ####[facility] [place] [address], [place] POC GLUCOSE LABon 07-18-2018 Glucose mass conc 101 mg/dL High 70-[address] [facility] Comment on above: Performed By: #### 0 0121 ####[facility] [place] [address], [place] Glucose mass conc 117 mg/dL High 70-[address] [facility] Comment on above: Performed By: #### 0 0121 ####[facility] [place] [address], [place] Glucose mass conc 94 mg/dL Normal 70-[address] [facility] Comment on above: Performed By: #### 0 0121 ####[facility] [place] [address], [place] Glucose mass conc 92 mg/dL Normal 70-[address] [facility] Comment on above: Performed By: #### 0 0121 ####[facility] [place] [address], [place] POC GLUCOSE LABon 07-17-2018 Glucose mass conc 105 mg/dL High 70-[address] [facility] Comment on above: Performed By: #### 0 0121 ####[facility] [place] [address], [place] Glucose mass conc 126 mg/dL High 70-[address] [facility] Comment on above: Performed By: #### 0 0121 ####[facility] [place] [address], [place] Glucose mass conc 118 mg/dL High 70-[address] [facility] Comment on above: Performed By: #### 0 0121 ####[facility] [place] [address], [facility] Glucose mass conc 99 mg/dL Normal 70-[address] [facility] Comment on above: Performed By: #### 0 0121 ####[facility] [place] [address], [facility] BASIC METABOLIC PANELon 09-0 Calcium mass conc 9.4 mg/dL Normal 8.6-10.[address] [facility] Comment on above: Order Comment: No: D o not add to previous draw Performed By: #### 0 0121 ####[facility] [place] [address], [facility] Chloride molar conc 104 mmol/L Normal 98-[address] [facility] Comment on above: Order Comment: No: D o not add to previous draw Performed By: #### 0 0121 ####[facility] [place] [address], [facility] CO2 molar conc 24 mmol/L Normal 21-[address] [facility] Comment on above: Order Comment: No: D o not add to previous draw Performed By: #### 0 0121 ####[facility] [place] [address], [facility] Creatinine mass conc 1.11 mg/dL Normal 0.60-1.[address] [facility] Comment on above: Order Comment: No: D o not add to previous draw Performed By: #### 0 0121 ####[facility] [place] [address], [facility] GFR/1.73 sq M predicted among blacks MDRD vol rate/area (S/P/Bld) 57 ml/min/1.73sq m Abnormal >[address] [facility] Comment on above: Order Comment: No: D o not add to previous draw Result Comment: Calc ulation may not be valid for patients over 70 years Performed By: #### 0 0121 ####[facility] GFR/1.73 sq M predicted among non-blacks MDRD vol rate/area (S/P/Bld) 47 ml/min/1.73sq m Abnormal >[address] [facility] Comment on above: Order Comment: No: D o not add to previous draw Result Comment: Calc ulation may not be valid for patients over 70 years Performed By: #### 0 0121 ####[facility]3000 [facility].[address] Glucose mass conc 104 mg/dL High 70-[address] [facility] Comment on above: Order Comment: No: D o not add to previous draw Performed By: #### 0 0121 ####[address] Potassium molar conc 4.6 mmol/L Normal 3.5-5.[address] [facility] Comment on above: Order Comment: No: D o not add to previous draw Performed By: #### 0 0121 ####[place] [address] [facility].[address] Sodium molar conc 135 mmol/L Low 136-[address] [facility] Comment on above: Order Comment: No: D o not add to previous draw Performed By: #### 0 0121 ####[place] [address] [facility].[address] Urea nitrogen mass conc 22 mg/dL Normal 7-[address] [facility] Comment on above: Order Comment: No: D o not add to previous draw Performed By: #### 0 0121 ####[address] [place] [address], [facility] CBC W/DIFFon 07-16-2018 ABS BASOPHILS 0.1 10*3/uL Normal 0.0-0.[address] [facility] Comment on above: Order Comment: No: D o not add to previous draw Performed By: #### 0 0121 ####[address] [place] [address], [place] ABS IMM GRANS 0.3 10*3/uL High 0.0-0.[address] [facility] Comment on above: Order Comment: No: D o not add to previous draw Performed By: #### 0 0121 ####[facility] [place] [address], [facility] ABS NEUTROPHILS 6.5 10*3/uL Normal 1.6-7.[address] [facility] Comment on above: Order Comment: No: D o not add to previous draw Performed By: #### 0 0121 ####[address] Basophils Auto #/vol (Bld) 0.6 % Normal 0.0-1.[address] [facility] Comment on above: Order Comment: No: D o not add to previous draw Performed By: #### 0 0121 ####[facility] Eosinophils Auto #/vol (Bld) 0.3 10*3/uL Normal 0.0-0.[address] [facility] Comment on above: Order Comment: No: D o not add to previous draw Performed By: #### 0 0121 ####[address] Eosinophils/100 WBC Auto (Bld) 2.5 % Normal 0.0-6.[address] [facility] Comment on above: Order Comment: No: D o not add to previous draw Performed By: #### 0 0121 ####[address] Erythrocyte distribution width Auto Ratio (RBC) 14.4 % Normal 11.5-15.[address] [facility] Comment on above: Order Comment: No: D o not add to previous draw Performed By: #### 0 0121 ####[address] [place] [address], [place] Hematocrit Auto Volume Fraction (Bld) 31.7 % Low 36.0-45.[address] [facility] Comment on above: Order Comment: No: D o not add to previous draw Performed By: #### 0 0121 ####[facility] Hemoglobin mass conc (Bld) 10.1 g/dL Low 12.0-15.[address] [facility] Comment on above: Order Comment: No: D o not add to previous draw Performed By: #### 0 0121 ####[address] IMMATURE GRANS 2.8 % High 0.0-1.[address] [facility] Comment on above: Order Comment: No: D o not add to previous draw Performed By: #### 0 0121 ####[place] [address] [address] Lymphocytes Auto #/vol (Bld) 2.4 10*3/uL Normal 1.2-4.[address] [facility] Comment on above: Order Comment: No: D o not add to previous draw Performed By: #### 0 0121 ####[address] Lymphocytes/100 WBC Auto (Bld) 22.1 % Normal 20.0-45.[address] [facility] Comment on above: Order Comment: No: D o not add to previous draw Performed By: #### 0 0121 ####[place] [address], [facility] MCH Auto Entitic mass (RBC) 30.3 pg Normal 27.0-33.[address] [facility] Comment on above: Order Comment: No: D o not add to previous draw Performed By: #### 0 0121 ####[address] [address], [place] MCHC Auto mass conc (RBC) 31.9 g/dL Low 32.0-35.[address] [facility] Comment on above: Order Comment: No: D o not add to previous draw Performed By: #### 0 0121 ####[facility]3000 [facility].[address] MCV Auto Entitic volume (RBC) 95.2 fL Normal 82.0-98.[address] [facility] Comment on above: Order Comment: No: D o not add to previous draw Performed By: #### 0 0121 ####[facility] Monocytes Auto #/vol (Bld) 1.2 10*3/uL High 0.1-1.[address] [facility] Comment on above: Order Comment: No: D o not add to previous draw Performed By: #### 0 0121 ####[facility] MONOS 11.0 % Normal 5.0-12.[address] [facility] Comment on above: Order Comment: No: D o not add to previous draw Performed By: #### 0 0121 ####[facility] Neutrophils/100 WBC Auto (Bld) 61.0 % Normal 40.0-72.[address] [facility] Comment on above: Order Comment: No: D o not add to previous draw Performed By: #### 0 0121 ####[facility]3000 [facility].[address] Nucleated RBC/100 WBC Ratio (Bld) 0 % Normal 0-[address] [facility] Comment on above: Order Comment: No: D o not add to previous draw Performed By: #### 0 0121 ####[facility] [place] [address], [facility] PLAT CNT 450 10*3/uL High 150-[address] [facility] Comment on above: Order Comment: No: D o not add to previous draw Performed By: #### 0 0121 ####[facility] [place].[address] RBC Auto #/vol (Bld) 3.33 10*6/uL Low 3.80-5.[address] [facility] Comment on above: Order Comment: No: D o not add to previous draw Performed By: #### 0 0121 ####[facility]3000 [facility].[address] WBC Auto #/vol (Bld) 10.68 10*3/uL High 4.00-10.[address] [facility] Comment on above: Order Comment: No: D o not add to previous draw Performed By: #### 0 0121 ####[facility] [place].[address] MAGNESIUM BLOODon 07-16-2018 Magnesium mass conc 2.3 mg/dL Normal 1.9-2.[address] [facility] Comment on above: Order Comment: No: D o not add to previous draw Performed By: #### 0 0121 ####[facility] [place].[address] PHOSPHORUS BLOODon 8 Phosphate mass conc 3.6 mg/dL Normal 2.5-5.[address] [facility] Comment on above: Order Comment: No: D o not add to previous draw Performed By: #### 0 0121 ####[facility] [place].[address] POC GLUCOSE LABon 07-16-2018 Glucose mass conc 111 mg/dL High 70-[address] [facility] Comment on above: Performed By: #### 0 0121 ####[facility] [place].[address] Glucose mass conc 159 mg/dL High 70-[address] [facility] Comment on above: Performed By: #### 0 0121 ####[facility] [place] [address], [facility] Glucose mass conc 103 mg/dL High 70-[address] [facility] Comment on above: Performed By: #### 0 0121 ####[facility] [place] [address], [place] Glucose mass conc 99 mg/dL Normal 70-[address] [facility] Comment on above: Performed By: #### 0 0121 ####[facility] [place] [address], [facility] BASIC METABOLIC PANELon Calcium mass conc 8.8 mg/dL Normal 8.6-10.[address] [facility] Comment on above: Order Comment: No: D o not add to previous draw Performed By: #### 0 0121 ####[facility] [place] [address], [place] Chloride molar conc 106 mmol/L Normal 98-[address] [facility] Comment on above: Order Comment: No: D o not add to previous draw Performed By: #### 0 0121 ####[facility] [place] [address], [place] CO2 molar conc 23 mmol/L Normal 21-[address] [facility] Comment on above: Order Comment: No: D o not add to previous draw Performed By: #### 0 0121 ####[facility] [place] [address], [place] Creatinine mass conc 1.01 mg/dL Normal 0.60-1.[address] [facility] Comment on above: Order Comment: No: D o not add to previous draw Performed By: #### 0 0121 ####[facility] [place] [address], [place] GFR/1.73 sq M predicted among blacks MDRD vol rate/area (S/P/Bld) mL/min/{1.73_m2} Normal >[address] [facility] Comment on above: Order Comment: No: D o not add to previous draw Result Comment: Calc ulation may not be valid for patients over 70 years Performed By: #### 0 0121 ####[facility] [facility] [place] [address], [facility] GFR/1.73 sq M predicted among non-blacks MDRD vol rate/area (S/P/Bld) 53 ml/min/1.73sq m Abnormal >[address] [facility] Comment on above: Order Comment: No: D o not add to previous draw Result Comment: Calc ulation may not be valid for patients over 70 years Performed By: #### 0 0121 ####[facility] [facility] [place] [address], [facility] Glucose mass conc 139 mg/dL High 70-[address] [facility] Comment on above: Order Comment: No: D o not add to previous draw Performed By: #### 0 0121 ####[facility] [facility] [place] [address], [facility] Potassium molar conc 4.1 mmol/L Normal 3.5-5.[address] [facility] Comment on above: Order Comment: No: D o not add to previous draw Performed By: #### 0 0121 ####[facility] [place] [address], [facility] Sodium molar conc 136 mmol/L Normal 136-[address] [facility] Comment on above: Order Comment: No: D o not add to previous draw Performed By: #### 0 0121 ####[facility] [place] [address], [facility] Urea nitrogen mass conc 26 mg/dL High 7-[address] [facility] Comment on above: Order Comment: No: D o not add to previous draw Performed By: #### 0 0121 ####[facility] CBC W/DIFFon 07-15-2018 ABS BASOPHILS 0.0 10*3/uL Normal 0.0-0.[address] [facility] Comment on above: Order Comment: No: D o not add to previous draw Performed By: #### 0 0121 ####[facility] ABS IMM GRANS 0.3 10*3/uL High 0.0-0.[address] [facility] Comment on above: Order Comment: No: D o not add to previous draw Performed By: #### 0 0121 ####[address] ABS NEUTROPHILS 5.7 10*3/uL Normal 1.6-7.[address] [facility] Comment on above: Order Comment: No: D o not add to previous draw Performed By: #### 0 0121 ####[facility] Basophils Auto #/vol (Bld) 0.4 % Normal 0.0-1.[address] [facility] Comment on above: Order Comment: No: D o not add to previous draw Performed By: #### 0 0121 ####[facility] [place] [address] Eosinophils Auto #/vol (Bld) 0.2 10*3/uL Normal 0.0-0.[address] [facility] Comment on above: Order Comment: No: D o not add to previous draw Performed By: #### 0 0121 ####[facility] [place] [address], [facility] Eosinophils/100 WBC Auto (Bld) 2.1 % Normal 0.0-6.[address] [facility] Comment on above: Order Comment: No: D o not add to previous draw Performed By: #### 0 0121 ####[facility] Erythrocyte distribution width Auto Ratio (RBC) 14.1 % Normal 11.5-15.[address] [facility] Comment on above: Order Comment: No: D o not add to previous draw Performed By: #### 0 0121 ####[facility]3000 [facility].[address] Hematocrit Auto Volume Fraction (Bld) 28.7 % Low 36.0-45.[address] [facility] Comment on above: Order Comment: No: D o not add to previous draw Performed By: #### 0 0121 ####[facility] Hemoglobin mass conc (Bld) 9.1 g/dL Low 12.0-15.[address] [facility] Comment on above: Order Comment: No: D o not add to previous draw Performed By: #### 0 0121 ####[facility] IMMATURE GRANS 3.4 % High 0.0-1.[address] [facility] Comment on above: Order Comment: No: D o not add to previous draw Performed By: #### 0 0121 ####[place] [address] [address] Lymphocytes Auto #/vol (Bld) 2.6 10*3/uL Normal 1.2-4.[address] [facility] Comment on above: Order Comment: No: D o not add to previous draw Performed By: #### 0 0121 ####[facility]3000 [facility].[address] Lymphocytes/100 WBC Auto (Bld) 25.8 % Normal 20.0-45.[address] [facility] Comment on above: Order Comment: No: D o not add to previous draw Performed By: #### 0 0121 ####[facility] MCH Auto Entitic mass (RBC) 30.4 pg Normal 27.0-33.[address] [facility] Comment on above: Order Comment: No: D o not add to previous draw Performed By: #### 0 0121 ####[facility] MCHC Auto mass conc (RBC) 31.7 g/dL Low 32.0-35.[address] [facility] Comment on above: Order Comment: No: D o not add to previous draw Performed By: #### 0 0121 ####[address] MCV Auto Entitic volume (RBC) 96.0 fL Normal 82.0-98.[address] [facility] Comment on above: Order Comment: No: D o not add to previous draw Performed By: #### 0 0121 ####[facility] Monocytes Auto #/vol (Bld) 1.0 10*3/uL Normal 0.1-1.[address] [facility] Comment on above: Order Comment: No: D o not add to previous draw Performed By: #### 0 0121 ####[facility] [place] [address] MONOS 10.2 % Normal 5.0-12.[address] [facility] Comment on above: Order Comment: No: D o not add to previous draw Performed By: #### 0 0121 ####[address] Neutrophils/100 WBC Auto (Bld) 58.1 % Normal 40.0-72.[address] [facility] Comment on above: Order Comment: No: D o not add to previous draw Performed By: #### 0 0121 ####[address] [place] [address], [place] Nucleated RBC/100 WBC Ratio (Bld) 0 % Normal 0-[address] [facility] Comment on above: Order Comment: No: D o not add to previous draw Performed By: #### 0 0121 ####[facility] [facility] [place] [address], [facility] PLAT CNT 447 10*3/uL High 150-[address] [facility] Comment on above: Order Comment: No: D o not add to previous draw Performed By: #### 0 0121 ####[facility] [facility].[address] RBC Auto #/vol (Bld) 2.99 10*6/uL Low 3.80-5.[address] [facility] Comment on above: Order Comment: No: D o not add to previous draw Performed By: #### 0 0121 ####[facility] [place].[address] WBC Auto #/vol (Bld) 9.87 10*3/uL Normal 4.00-10.[address] [facility] Comment on above: Order Comment: No: D o not add to previous draw Performed By: #### 0 0121 ####[facility] [facility].[address] MAGNESIUM BLOODon 07-15-2018 Magnesium mass conc 1.6 mg/dL Low 1.9-2.[address] [facility] Comment on above: Order Comment: No: D o not add to previous draw Performed By: #### 0 0121 ####[facility] [facility] [place] [address], [facility] PHOSPHORUS BLOODon 8 Phosphate mass conc 3.2 mg/dL Normal 2.5-5.[address] [facility] Comment on above: Order Comment: No: D o not add to previous draw Performed By: #### 0 0121 ####[facility] [place] [address], [facility] POC GLUCOSE LABon 07-15-2018 Glucose mass conc 109 mg/dL High 70-[address] [facility] Comment on above: Performed By: #### 0 0121 ####[facility] [place] [address], [place] Glucose mass conc 154 mg/dL High 70-[address] [facility] Comment on above: Performed By: #### 0 0121 ####[facility] [place] [address], [place] Glucose mass conc 156 mg/dL High 70-[address] [facility] Comment on above: Performed By: #### 0 0121 ####[facility] [place] [address], [place] Glucose mass conc 166 mg/dL High 70-[address] [facility] Comment on above: Performed By: #### 0 0121 ####[facility] [facility] [place] [address], [facility] BASIC METABOLIC PANELon Calcium mass conc 9.6 mg/dL Normal 8.6-10.[address] [facility] Comment on above: Order Comment: No: D o not add to previous draw Performed By: #### 0 0121 ####[facility] [place] [address], [facility] Chloride molar conc 105 mmol/L Normal 98-[address] [facility] Comment on above: Order Comment: No: D o not add to previous draw Performed By: #### 0 0121 ####[facility] [place] [address], [facility] CO2 molar conc 21 mmol/L Normal 21-[address] [facility] Comment on above: Order Comment: No: D o not add to previous draw Performed By: #### 0 0121 ####[facility] [place] [address], [facility] Creatinine mass conc 1.16 mg/dL Normal 0.60-1.[address] [facility] [facility] Comment on above: Order Comment: No: D o not add to previous draw Performed By: #### 0 0121 ####[facility] [place] [address], [facility] GFR/1.73 sq M predicted among blacks MDRD vol rate/area (S/P/Bld) 54 ml/min/1.73sq m Abnormal >[address] [facility] Comment on above: Order Comment: No: D o not add to previous draw Result Comment: Calc ulation may not be valid for patients over 70 years Performed By: #### 0 0121 ####[facility] [facility] [place] [address], [facility] GFR/1.73 sq M predicted among non-blacks MDRD vol rate/area (S/P/Bld) 45 ml/min/1.73sq m Abnormal >[address] [facility] Comment on above: Order Comment: No: D o not add to previous draw Result Comment: Calc ulation may not be valid for patients over 70 years Performed By: #### 0 0121 ####[facility] [facility] [place] [address], [facility] Glucose mass conc 172 mg/dL High 70-[address] [facility] Comment on above: Order Comment: No: D o not add to previous draw Performed By: #### 0 0121 ####[facility] [facility] [place] [address], [facility] Potassium molar conc 4.9 mmol/L Normal 3.5-5.[address] [facility] Comment on above: Order Comment: No: D o not add to previous draw Performed By: #### 0 0121 ####[facility] [facility] [place] [address], [facility] Sodium molar conc 132 mmol/L Low 136-[address] [facility] Comment on above: Order Comment: No: D o not add to previous draw Performed By: #### 0 0121 ####[facility] Urea nitrogen mass conc 28 mg/dL High 7-[address] [facility] Comment on above: Order Comment: No: D o not add to previous draw Performed By: #### 0 0121 ####[facility] [place] [address], [facility] CBC W/DIFFon 07-14-2018 ABS BASOPHILS 0.1 10*3/uL Normal 0.0-0.[address] [facility] Comment on above: Order Comment: No: D o not add to previous draw Performed By: #### 0 0121 ####[facility] ABS NEUTROPHILS 9.2 10*3/uL High 1.6-7.[address] [facility] Comment on above: Order Comment: No: D o not add to previous draw Performed By: #### 0 0121 ####[facility] Basophils Auto #/vol (Bld) 0.9 % Normal 0.0-1.[address] [facility] Comment on above: Order Comment: No: D o not add to previous draw Performed By: #### 0 0121 ####[facility] Eosinophils Auto #/vol (Bld) 0.4 10*3/uL Normal 0.0-0.[address] [facility] Comment on above: Order Comment: No: D o not add to previous draw Performed By: #### 0 0121 ####[facility] Eosinophils/100 WBC Auto (Bld) 2.7 % Normal 0.0-6.[address] [facility] Comment on above: Order Comment: No: D o not add to previous draw Performed By: #### 0 0121 ####[facility]3000 [facility].[address] Erythrocyte distribution width Auto Ratio (RBC) 14.4 % Normal 11.5-15.[address] [facility] Comment on above: Order Comment: No: D o not add to previous draw Performed By: #### 0 0121 ####[facility] [facility].[address] Hematocrit Auto Volume Fraction (Bld) 30.8 % Low 36.0-45.[address] [facility] Comment on above: Order Comment: No: D o not add to previous draw Performed By: #### 0 0121 ####[facility] Hemoglobin mass conc (Bld) 9.7 g/dL Low 12.0-15.[address] [facility] Comment on above: Order Comment: No: D o not add to previous draw Performed By: #### 0 0121 ####[facility] Lymphocytes Auto #/vol (Bld) 2.5 10*3/uL Normal 1.2-4.[address] [facility] Comment on above: Order Comment: No: D o not add to previous draw Performed By: #### 0 0121 ####[facility] Lymphocytes/100 WBC Auto (Bld) 18.2 % Low 20.0-45.[address] [facility] Comment on above: Order Comment: No: D o not add to previous draw Performed By: #### 0 0121 ####[facility] MCH Auto Entitic mass (RBC) 30.6 pg Normal 27.0-33.[address] [facility] Comment on above: Order Comment: No: D o not add to previous draw Performed By: #### 0 0121 ####[facility] MCHC Auto mass conc (RBC) 31.5 g/dL Low 32.0-35.[address] [facility] Comment on above: Order Comment: No: D o not add to previous draw Performed By: #### 0 0121 ####[facility] MCV Auto Entitic volume (RBC) 97.2 fL Normal 82.0-98.[address] [facility] Comment on above: Order Comment: No: D o not add to previous draw Performed By: #### 0 0121 ####[place] [address] [facility].[address] Monocytes Auto #/vol (Bld) 1.3 10*3/uL High 0.1-1.[address] [facility] Comment on above: Order Comment: No: D o not add to previous draw Performed By: #### 0 0121 ####[facility] [facility].[address] MONOS 10.0 % Normal 5.0-12.[address] [facility] Comment on above: Order Comment: No: D o not add to previous draw Performed By: #### 0 0121 ####[facility] [facility].[address] Neutrophils/100 WBC Auto (Bld) 68.2 % Normal 40.0-72.[address] [facility] Comment on above: Order Comment: No: D o not add to previous draw Performed By: #### 0 0121 ####[facility] [facility].[address] NRBC SCAN Present Normal [facility] Comment on above: Order Comment: No: D o not add to previous draw Performed By: #### 0 0121 ####[facility] Nucleated RBC/100 WBC Ratio (Bld) 0 % Normal 0-[address] [facility] Comment on above: Order Comment: No: D o not add to previous draw Performed By: #### 0 0121 ####[facility] [place] [address], [facility] PLAT CNT 509 10*3/uL High 150-[address] [facility] Comment on above: Order Comment: No: D o not add to previous draw Performed By: #### 0 0121 ####[facility] [facility].[address] RBC Auto #/vol (Bld) 3.17 10*6/uL Low 3.80-5.[address] [facility] Comment on above: Order Comment: No: D o not add to previous draw Performed By: #### 0 0121 ####[facility] WBC Auto #/vol (Bld) 13.48 10*3/uL High 4.00-10.[address] [facility] Comment on above: Order Comment: No: D o not add to previous draw Performed By: #### 0 0121 ####[facility] MAGNESIUM BLOODon 07-14-2018 Magnesium mass conc 2.2 mg/dL Normal 1.9-2.[address] [facility] Comment on above: Order Comment: No: D o not add to previous draw Performed By: #### 0 0121 ####[facility] [place] [address], [facility] PHOSPHORUS BLOODon 8 Phosphate mass conc 3.8 mg/dL Normal 2.5-5.[address] [facility] Comment on above: Order Comment: No: D o not add to previous draw Performed By: #### 0 0121 ####[facility] [place] [address], [facility] POC GLUCOSE LABon 07-14-2018 Glucose mass conc 169 mg/dL High 70-[address] [facility] Comment on above: Performed By: #### 0 0121 ####[facility] [place] [address], [place] Glucose mass conc 188 mg/dL High 70-[address] [facility] Comment on above: Performed By: #### 0 0121 ####[facility] [place] [address], [place] Glucose mass conc 187 mg/dL High 70-[address] [facility] Comment on above: Performed By: #### 0 0121 ####[facility] [place] [address], [place] Glucose mass conc 123 mg/dL High 70-[address] [facility] Comment on above: Performed By: #### 0 0121 ####[facility] [address], [facility] BASIC METABOLIC PANELon Calcium mass conc 9.2 mg/dL Normal 8.6-10.[address] [facility] Comment on above: Order Comment: No: D o not add to previous draw Performed By: #### 0 0121 ####[facility] [place] [address], [facility] Chloride molar conc 104 mmol/L Normal 98-[address] [facility] Comment on above: Order Comment: No: D o not add to previous draw Performed By: #### 0 0121 ####[facility] [place] [address], [place] CO2 molar conc 22 mmol/L Normal 21-[address] [facility] Comment on above: Order Comment: No: D o not add to previous draw Performed By: #### 0 0121 ####[facility] [place] [address], [facility] Creatinine mass conc 1.30 mg/dL High 0.60-1.[address] [facility] Comment on above: Order Comment: No: D o not add to previous draw Performed By: #### 0 0121 ####[facility] [place] [address], [facility] GFR/1.73 sq M predicted among blacks MDRD vol rate/area (S/P/Bld) 47 ml/min/1.73sq m Abnormal >[address] [facility] Comment on above: Order Comment: No: D o not add to previous draw Result Comment: Calc ulation may not be valid for patients over 70 years Performed By: #### 0 0121 ####[facility] [place] [address], [facility] GFR/1.73 sq M predicted among non-blacks MDRD vol rate/area (S/P/Bld) 39 ml/min/1.73sq m Abnormal >[address] [facility] Comment on above: Order Comment: No: D o not add to previous draw Result Comment: Calc ulation may not be valid for patients over 70 years Performed By: #### 0 0121 ####[facility] [place] [address], [facility] Glucose mass conc 160 mg/dL High 70-[address] [facility] Comment on above: Order Comment: No: D o not add to previous draw Performed By: #### 0 0121 ####[facility] [facility] [place] [address], [facility] Potassium molar conc 4.7 mmol/L Normal 3.5-5.[address] [facility] Comment on above: Order Comment: No: D o not add to previous draw Performed By: #### 0 0121 ####[facility] [place] [address], [facility] Sodium molar conc 133 mmol/L Low 136-[address] [facility] Comment on above: Order Comment: No: D o not add to previous draw Performed By: #### 0 0121 ####[facility] Urea nitrogen mass conc 32 mg/dL High 7-[address] [facility] Comment on above: Order Comment: No: D o not add to previous draw Performed By: #### 0 0121 ####[facility] CBC W/DIFFon 07-13-2018 ABS BASOPHILS 0.1 10*3/uL Normal 0.0-0.[address] [facility] Comment on above: Order Comment: No: D o not add to previous draw Performed By: #### 0 0121 ####[facility] ABS NEUTROPHILS 7.1 10*3/uL Normal 1.6-7.[address] [facility] Comment on above: Order Comment: No: D o not add to previous draw Performed By: #### 0 0121 ####[facility] Basophils Auto #/vol (Bld) 1.0 % Normal 0.0-1.[address] [facility] Comment on above: Order Comment: No: D o not add to previous draw Performed By: #### 0 0121 ####[facility] [place] [address], [facility] Eosinophils Auto #/vol (Bld) 0.1 10*3/uL Normal 0.0-0.[address] [facility] Comment on above: Order Comment: No: D o not add to previous draw Performed By: #### 0 0121 ####[facility] [place] [address], [facility] Eosinophils/100 WBC Auto (Bld) 1.0 % Normal 0.0-6.[address] [facility] Comment on above: Order Comment: No: D o not add to previous draw Performed By: #### 0 0121 ####[facility]3000 [facility].[address] Erythrocyte distribution width Auto Ratio (RBC) 14.4 % Normal 11.5-15.[address] [facility] Comment on above: Order Comment: No: D o not add to previous draw Performed By: #### 0 0121 ####[facility]3000 [facility].[address] Hematocrit Auto Volume Fraction (Bld) 30.2 % Low 36.0-45.[address] [facility] Comment on above: Order Comment: No: D o not add to previous draw Performed By: #### 0 0121 ####[facility] Hemoglobin mass conc (Bld) 9.3 g/dL Low 12.0-15.[address] [facility] Comment on above: Order Comment: No: D o not add to previous draw Performed By: #### 0 0121 ####[facility] Lymphocytes Auto #/vol (Bld) 2.7 10*3/uL Normal 1.2-4.[address] [facility] Comment on above: Order Comment: No: D o not add to previous draw Performed By: #### 0 0121 ####[facility]3000 [facility].[address] Lymphocytes/100 WBC Auto (Bld) 23.3 % Normal 20.0-45.[address] [facility] Comment on above: Order Comment: No: D o not add to previous draw Performed By: #### 0 0121 ####[facility] MCH Auto Entitic mass (RBC) 30.3 pg Normal 27.0-33.[address] [facility] Comment on above: Order Comment: No: D o not add to previous draw Performed By: #### 0 0121 ####[facility]3000 [facility].[address] MCHC Auto mass conc (RBC) 30.8 g/dL Low 32.0-35.[address] [facility] Comment on above: Order Comment: No: D o not add to previous draw Performed By: #### 0 0121 ####[facility]3000 [facility].[address] MCV Auto Entitic volume (RBC) 98.4 fL High 82.0-98.[address] [facility] Comment on above: Order Comment: No: D o not add to previous draw Performed By: #### 0 0121 ####[facility] METAMYELO 1.9 % High 0.0-0.[address] [facility] Comment on above: Order Comment: No: D o not add to previous draw Performed By: #### 0 0121 ####[facility]3000 [facility].[address] Monocytes Auto #/vol (Bld) 1.0 10*3/uL Normal 0.1-1.[address] [facility] Comment on above: Order Comment: No: D o not add to previous draw Performed By: #### 0 0121 ####[facility]3000 [facility].[address] MONOS 8.7 % Normal 5.0-12.[address] [facility] Comment on above: Order Comment: No: D o not add to previous draw Performed By: #### 0 0121 ####[facility]3000 [facility].[address] MYELOS 3.9 % High .0-.[address] [facility] Comment on above: Order Comment: No: D o not add to previous draw Performed By: #### 0 0121 ####[facility] [facility] [place] [address], [facility] Neutrophils/100 WBC Auto (Bld) 60.2 % Normal 40.0-72.[address] [facility] Comment on above: Order Comment: No: D o not add to previous draw Performed By: #### 0 0121 ####[facility] [place] [address], [facility] Nucleated RBC/100 WBC Ratio (Bld) 0 % Normal 0-[address] [facility] Comment on above: Order Comment: No: D o not add to previous draw Performed By: #### 0 0121 ####[facility] [place] [address], [facility] PLAT CNT 435 10*3/uL High 150-[address] [facility] Comment on above: Order Comment: No: D o not add to previous draw Performed By: #### 0 0121 ####[facility] [place] [address], [facility] RBC Auto #/vol (Bld) 3.07 10*6/uL Low 3.80-5.[address] [facility] Comment on above: Order Comment: No: D o not add to previous draw Performed By: #### 0 0121 ####[facility] [place] [address], [facility] WBC Auto #/vol (Bld) 11.73 10*3/uL High 4.00-10.[address] [facility] Comment on above: Order Comment: No: D o not add to previous draw Performed By: #### 0 0121 ####[facility] [place] [address], [facility] MAGNESIUM BLOODon 07-13-2018 Magnesium mass conc 1.8 mg/dL Low 1.9-2.[address] [facility] Comment on above: Order Comment: No: D o not add to previous draw Performed By: #### 0 0121 ####[facility] [place] [address], [facility] PHOSPHORUS BLOODon 8 Phosphate mass conc 3.8 mg/dL Normal 2.5-5.[address] [facility] Comment on above: Order Comment: No: D o not add to previous draw Performed By: #### 0 0121 ####[facility] [address], [facility] POC GLUCOSE LABon 07-13-2018 Glucose mass conc 147 mg/dL High 70-[address] [facility] Comment on above: Performed By: #### 0 0121 ####[facility] [facility] [place] [address], [facility] Glucose mass conc 188 mg/dL High 70-[address] [facility] Comment on above: Performed By: #### 0 0121 ####[facility] [place] [address], [facility] Glucose mass conc 150 mg/dL High 70-[address] [facility] Comment on above: Performed By: #### 0 0121 ####[facility] [address], [facility] Glucose mass conc 139 mg/dL High 70-[address] [facility] Comment on above: Performed By: #### 0 0121 ####[facility] [place] [address], [facility] BASIC METABOLIC PANELon Calcium mass conc 9.7 mg/dL Normal 8.6-10.[address] [facility] Comment on above: Order Comment: No: D o not add to previous draw Performed By: #### 0 0121 ####[facility] [place] [address], [facility] Chloride molar conc 103 mmol/L Normal 98-[address] [facility] Comment on above: Order Comment: No: D o not add to previous draw Performed By: #### 0 0121 ####[facility] [place] [address], [facility] CO2 molar conc 18 mmol/L Low 21-[address] [facility] Comment on above: Order Comment: No: D o not add to previous draw Performed By: #### 0 0121 ####[facility] [facility] [place] [address], [facility] Creatinine mass conc 1.33 mg/dL High 0.60-1.[address] [facility] Comment on above: Order Comment: No: D o not add to previous draw Performed By: #### 0 0121 ####[facility] [facility] [place] [address], [facility] GFR/1.73 sq M predicted among blacks MDRD vol rate/area (S/P/Bld) 47 ml/min/1.73sq m Abnormal >[address] [facility] Comment on above: Order Comment: No: D o not add to previous draw Result Comment: Calc ulation may not be valid for patients over 70 years Performed By: #### 0 0121 ####[facility] [facility] [place] [address], [facility] GFR/1.73 sq M predicted among non-blacks MDRD vol rate/area (S/P/Bld) 39 ml/min/1.73sq m Abnormal >[address] [facility] Comment on above: Order Comment: No: D o not add to previous draw Result Comment: Calc ulation may not be valid for patients over 70 years Performed By: #### 0 0121 ####[facility] [facility] [place] [address], [facility] Glucose mass conc 133 mg/dL High 70-[address] [facility] Comment on above: Order Comment: No: D o not add to previous draw Performed By: #### 0 0121 ####[facility] [facility] [place] [address], [facility] Potassium molar conc 5.2 mmol/L High 3.5-5.[address] [facility] Comment on above: Order Comment: No: D o not add to previous draw Performed By: #### 0 0121 ####[facility] Sodium molar conc 131 mmol/L Low 136-[address] [facility] Comment on above: Order Comment: No: D o not add to previous draw Performed By: #### 0 0121 ####[place] [address] [address] Urea nitrogen mass conc 31 mg/dL High 7-[address] [facility] Comment on above: Order Comment: No: D o not add to previous draw Performed By: #### 0 0121 ####[address] CBC W/DIFFon 07-12-2018 ABS BASOPHILS 0.1 10*3/uL Normal 0.0-0.[address] [facility] Comment on above: Order Comment: No: D o not add to previous draw Performed By: #### 0 0121 ####[facility] ABS IMM GRANS 1.2 10*3/uL High 0.0-0.[address] [facility] Comment on above: Order Comment: No: D o not add to previous draw Performed By: #### 0 0121 ####[facility] ABS NEUTROPHILS 7.2 10*3/uL Normal 1.6-7.[address] [facility] Comment on above: Order Comment: No: D o not add to previous draw Performed By: #### 0 0121 ####[facility] Basophils Auto #/vol (Bld) 0.5 % Normal 0.0-1.[address] [facility] Comment on above: Order Comment: No: D o not add to previous draw Performed By: #### 0 0121 ####[facility] Eosinophils Auto #/vol (Bld) 0.3 10*3/uL Normal 0.0-0.[address] [facility] Comment on above: Order Comment: No: D o not add to previous draw Performed By: #### 0 0121 ####[facility]3000 [facility].[address] Eosinophils/100 WBC Auto (Bld) 2.3 % Normal 0.0-6.[address] [facility] Comment on above: Order Comment: No: D o not add to previous draw Performed By: #### 0 0121 ####[facility] Erythrocyte distribution width Auto Ratio (RBC) 14.2 % Normal 11.5-15.[address] [facility] Comment on above: Order Comment: No: D o not add to previous draw Performed By: #### 0 0121 ####[facility] Hematocrit Auto Volume Fraction (Bld) 36.0 % Normal 36.0-45.[address] [facility] Comment on above: Order Comment: No: D o not add to previous draw Performed By: #### 0 0121 ####[facility] Hemoglobin mass conc (Bld) 11.2 g/dL Low 12.0-15.[address] [facility] Comment on above: Order Comment: No: D o not add to previous draw Performed By: #### 0 0121 ####[facility] IMM PLATELET FRAC 2.2 % Normal 0.8-6.[address] [facility] Comment on above: Order Comment: No: D o not add to previous draw Performed By: #### 0 0121 ####[facility] IMMATURE GRANS 9.1 % High 0.0-1.[address] [facility] Comment on above: Order Comment: No: D o not add to previous draw Performed By: #### 0 0121 ####[facility] Lymphocytes Auto #/vol (Bld) 3.0 10*3/uL Normal 1.2-4.[address] [facility] Comment on above: Order Comment: No: D o not add to previous draw Performed By: #### 0 0121 ####[place] [address] [address] Lymphocytes/100 WBC Auto (Bld) 22.3 % Normal 20.0-45.[address] [facility] Comment on above: Order Comment: No: D o not add to previous draw Performed By: #### 0 0121 ####[facility] MCH Auto Entitic mass (RBC) 30.9 pg Normal 27.0-33.[address] [facility] Comment on above: Order Comment: No: D o not add to previous draw Performed By: #### 0 0121 ####[facility] MCHC Auto mass conc (RBC) 31.1 g/dL Low 32.0-35.[address] [facility] Comment on above: Order Comment: No: D o not add to previous draw Performed By: #### 0 0121 ####[facility] MCV Auto Entitic volume (RBC) 99.4 fL High 82.0-98.[address] [facility] Comment on above: Order Comment: No: D o not add to previous draw Performed By: #### 0 0121 ####[facility]3000 [facility] [place] [address], [facility] Monocytes Auto #/vol (Bld) 1.5 10*3/uL High 0.1-1.[address] [facility] Comment on above: Order Comment: No: D o not add to previous draw Performed By: #### 0 0121 ####[facility]3000 [facility] [place] [address], [facility] MONOS 11.3 % Normal 5.0-12.[address] [facility] Comment on above: Order Comment: No: D o not add to previous draw Performed By: #### 0 0121 ####[place] [address] [facility] [place] [address], [facility] Neutrophils/100 WBC Auto (Bld) 54.5 % Normal 40.0-72.[address] [facility] Comment on above: Order Comment: No: D o not add to previous draw Performed By: #### 0 0121 ####[facility]3000 [facility] [place] [address], [facility] Nucleated RBC/100 WBC Ratio (Bld) 0 % Normal 0-[address] [facility] Comment on above: Order Comment: No: D o not add to previous draw Performed By: #### 0 0121 ####[address] [place] [address], [facility] PLAT CNT 425 10*3/uL High 150-[address] [facility] Comment on above: Order Comment: No: D o not add to previous draw Performed By: #### 0 0121 ####[facility] [place] [address].[place] [address], [facility] RBC Auto #/vol (Bld) 3.62 10*6/uL Low 3.80-5.[address] [facility] Comment on above: Order Comment: No: D o not add to previous draw Performed By: #### 0 0121 ####[facility] [place] [address], [facility] WBC Auto #/vol (Bld) 13.29 10*3/uL High 4.00-10.[address] [facility] Comment on above: Order Comment: No: D o not add to previous draw Performed By: #### 0 0121 ####[facility] [address], [facility] MAGNESIUM BLOODon 07-12-2018 Magnesium mass conc 2.1 mg/dL Normal 1.9-2.[address] [facility] Comment on above: Order Comment: No: D o not add to previous draw Performed By: #### 0 0121 ####[facility] [place] [address], [facility] PHOSPHORUS BLOODon 8 Phosphate mass conc 4.6 mg/dL Normal 2.5-5.[address] [facility] Comment on above: Order Comment: No: D o not add to previous draw Performed By: #### 0 0121 ####[facility] [address], [facility] POC GLUCOSE LABon 07-12-2018 Glucose mass conc 145 mg/dL High 70-[address] [facility] Comment on above: Performed By: #### 0 0121 ####[facility] [place] [address], [facility] Glucose mass conc 184 mg/dL High 70-[address] [facility] Comment on above: Performed By: #### 0 0121 ####[facility] [place] [address], [facility] Glucose mass conc 134 mg/dL High 70-[address] [facility] Comment on above: Performed By: #### 0 0121 ####[facility] [place] [address], [place] Glucose mass conc 168 mg/dL High 70-[address] [facility] Comment on above: Performed By: #### 0 0121 ####[facility] ABDOMEN SERIES W CHESTon ABDOMEN SERIES W CHEST [facility]Department [facility] [address] [place] [address] Stacy ent Name: VIDHYA GIORDANO : 1940Sex: FAge: Race: WhiteMRN: [id number]. Location: [id number] Status: IVisit #: [id number] Date: 07/11/2018 11:25:00 AMCompleted Date: 07/11/2018 01:43 PMRequesting Provider: ROSIBEL PERRY Attending Provider: MEG ABEBE Report Copy To: Signs & Symptoms: Post OPHistory: Patient history not availableComments: R/O ObstructionExam: ABDOMEN SERIES W CHESTAccession #: [id number] ===ABDOMEN SERIES W CHEST 07/11/2018 1:43 PM EDT SIGNS AND SYMPTOMS: Post OP TECHNOLOGIST COMMENTS:post-op, complains of abdominal pain QUESTION FOR THE RADIOLOGIST: R/O Obstruction PROTOCOL: AP(PA)Chest with Supine and Decubitus Abdomen views were obtained. COMPARISON: None FINDINGS: Chest: The heart is mildly enlarged. Aorta is calcified aortic knob. Right diaphragm is elevated. No free air is noted. Focal atelectasis or infiltrate left lingula. Abdomen: Is no organomegaly. Scattered surgical clips are seen. No obstruction is noted or ileus. Contrast is noted in the colon from recent CT scan. Patient's had spinal fusion. No free air. IMPRESSION: No evidence of ileus or obstruction. Electronically signed by:Nora Sethi. Transcribed by: [id number], User Resident: Electronically Signed by: NORA SETHI @ 07/12/2018 07:26 AM Normal [facility] Comment on above: Order Comment: R/O O bstruction BASIC METABOLIC PANELon 09-0 Calcium mass conc 10.2 mg/dL Normal 8.6-10.[address] [facility] Comment on above: Order Comment: No: D o not add to previous draw Performed By: #### 0 0121 ####[facility] [facility] [place] [address], [facility] Chloride molar conc 102 mmol/L Normal 98-[address] [facility] Comment on above: Order Comment: No: D o not add to previous draw Performed By: #### 0 0121 ####[facility] [place] [address], [facility] CO2 molar conc 21 mmol/L Normal 21-[address] [facility] Comment on above: Order Comment: No: D o not add to previous draw Performed By: #### 0 0121 ####[facility] [place] [address], [facility] Creatinine mass conc 1.30 mg/dL High 0.60-1.[address] [facility] Comment on above: Order Comment: No: D o not add to previous draw Performed By: #### 0 0121 ####[facility] [place] [address], [facility] GFR/1.73 sq M predicted among blacks MDRD vol rate/area (S/P/Bld) 47 ml/min/1.73sq m Abnormal >[address] [facility] Comment on above: Order Comment: No: D o not add to previous draw Result Comment: Calc ulation may not be valid for patients over 70 years Performed By: #### 0 0121 ####[facility] [place] [address], [facility] GFR/1.73 sq M predicted among non-blacks MDRD vol rate/area (S/P/Bld) 39 ml/min/1.73sq m Abnormal >[address] [facility] Comment on above: Order Comment: No: D o not add to previous draw Result Comment: Calc ulation may not be valid for patients over 70 years Performed By: #### 0 0121 ####[facility] [place] [address], [facility] Glucose mass conc 162 mg/dL High 70-[address] [facility] Comment on above: Order Comment: No: D o not add to previous draw Performed By: #### 0 0121 ####[facility] [place] [address], [facility] Potassium molar conc 5.6 mmol/L High 3.5-5.[address] [facility] Comment on above: Order Comment: No: D o not add to previous draw Performed By: #### 0 0121 ####[facility] [place] [address], [facility] Sodium molar conc 132 mmol/L Low 136-[address] [facility] Comment on above: Order Comment: No: D o not add to previous draw Performed By: #### 0 0121 ####[facility] [place] [address], [facility] Urea nitrogen mass conc 29 mg/dL High 7-[address] [facility] Comment on above: Order Comment: No: D o not add to previous draw Performed By: #### 0 0121 ####[facility] CBC COMPLETE BLOOD COUNTon 0 07-11-2018 Erythrocyte distribution width Auto Ratio (RBC) 14.1 % Normal 11.5-15.[address] [facility] Comment on above: Order Comment: This order is a replacement of the rejected order with accession [id number]. Performed By: #### 0 0121 ####[facility] Hematocrit Auto Volume Fraction (Bld) 33.4 % Low 36.0-45.[address] [facility] Comment on above: Order Comment: This order is a replacement of the rejected order with accession [id number]. Performed By: #### 0 0121 ####[facility] Hemoglobin mass conc (Bld) 10.5 g/dL Low 12.0-15.[address] [facility] Comment on above: Order Comment: This order is a replacement of the rejected order with accession [id number]. Performed By: #### 0 0121 ####[address] MCH Auto Entitic mass (RBC) 30.3 pg Normal 27.0-33.[address] [facility] Comment on above: Order Comment: This order is a replacement of the rejected order with accession [id number]. Performed By: #### 0 0121 ####[place] [address] [address] MCHC Auto mass conc (RBC) 31.4 g/dL Low 32.0-35.[address] [facility] Comment on above: Order Comment: This order is a replacement of the rejected order with accession [id number]. Performed By: #### 0 0121 ####[place] [address] [address] MCV Auto Entitic volume (RBC) 96.5 fL Normal 82.0-98.[address] [facility] Comment on above: Order Comment: This order is a replacement of the rejected order with accession [id number]. Performed By: #### 0 0121 ####[address] Nucleated RBC/100 WBC Ratio (Bld) 0 % Normal 0-[address] [facility] Comment on above: Order Comment: This order is a replacement of the rejected order with accession [id number]. Performed By: #### 0 0121 ####[facility] [address], [facility] PLAT CNT 527 10*3/uL High 150-[address] [facility] Comment on above: Order Comment: This order is a replacement of the rejected order with accession [id number]. Performed By: #### 0 0121 ####[facility]3000 [facility].[address] RBC Auto #/vol (Bld) 3.46 10*6/uL Low 3.80-5.[address] [facility] Comment on above: Order Comment: This order is a replacement of the rejected order with accession [id number]. Performed By: #### 0 0121 ####[place] [address] [facility].[address] WBC Auto #/vol (Bld) 15.56 10*3/uL High 4.00-10.[address] [facility] Comment on above: Order Comment: This order is a replacement of the rejected order with accession [id number]. Performed By: #### 0 0121 ####[place] [address] [address] MAGNESIUM BLOODon 07-11-2018 Magnesium mass conc 1.7 mg/dL Low 1.9-2.[address] [facility] Comment on above: Order Comment: No: D o not add to previous draw Performed By: #### 0 0121 ####[facility]3000 [facility] [place] [address], [facility] PHOSPHORUS BLOODon 8 Phosphate mass conc 4.6 mg/dL Normal 2.5-5.[address] [facility] Comment on above: Order Comment: No: D o not add to previous draw Performed By: #### 0 0121 ####[facility]3000 [facility].[address] POC GLUCOSE LABon 07-11-2018 Glucose mass conc 158 mg/dL High 70-[address] [facility] Comment on above: Performed By: #### 0 0121 ####[facility] [place] [address], [facility] Glucose mass conc 204 mg/dL High 70-[address] [facility] Comment on above: Performed By: #### 0 0121 ####[facility] [place] [address], [facility] Glucose mass conc 186 mg/dL High 70-[address] [facility] Comment on above: Performed By: #### 0 0121 ####[facility] *BLOOD CULTUREon 07-10-2018 Bacteria identified in Blood by Culture Clinical Report: (D) Specimen: BLOOD CULTURE Collected: 07/10/2018 11:19 Status: Final Last Updated: 07/16/2018 06:46 CULT RES (Final) No Growth Day [address] [facility] Comment on above: Performed By: #### 0 0121 ####[facility] [place] BASIC METABOLIC PANELon Calcium mass conc 9.9 mg/dL Normal 8.6-10.[address] [facility] Comment on above: Order Comment: No: D o not add to previous draw Performed By: #### 0 0121 ####[facility] [place] [address], [facility] Chloride molar conc 101 mmol/L Normal 98-[address] [facility] Comment on above: Order Comment: No: D o not add to previous draw Performed By: #### 0 0121 ####[facility] [place] [address], [facility] CO2 molar conc 22 mmol/L Normal 21-[address] [facility] Comment on above: Order Comment: No: D o not add to previous draw Performed By: #### 0 0121 ####[facility] [place] [address], [facility] Creatinine mass conc 1.18 mg/dL Normal 0.60-1.[address] [facility] Comment on above: Order Comment: No: D o not add to previous draw Performed By: #### 0 0121 ####[facility] [place] [address], [facility] GFR/1.73 sq M predicted among blacks MDRD vol rate/area (S/P/Bld) 53 ml/min/1.73sq m Abnormal >[address] [facility] Comment on above: Order Comment: No: D o not add to previous draw Result Comment: Calc ulation may not be valid for patients over 70 years Performed By: #### 0 0121 ####[facility]3000 [facility] [address], [facility] GFR/1.73 sq M predicted among non-blacks MDRD vol rate/area (S/P/Bld) 45 ml/min/1.73sq m Abnormal >[address] [facility] Comment on above: Order Comment: No: D o not add to previous draw Result Comment: Calc ulation may not be valid for patients over 70 years Performed By: #### 0 0121 ####[facility]3000 [facility] [place] [address], [facility] Glucose mass conc 212 mg/dL High 70-[address] [facility] Comment on above: Order Comment: No: D o not add to previous draw Performed By: #### 0 0121 ####[facility]3000 [facility] [place] [address], [facility] Potassium molar conc 5.1 mmol/L Normal 3.5-5.[address] [facility] Comment on above: Order Comment: No: D o not add to previous draw Performed By: #### 0 0121 ####[facility]3000 [facility].[address] Sodium molar conc 132 mmol/L Low 136-[address] [facility] Comment on above: Order Comment: No: D o not add to previous draw Performed By: #### 0 0121 ####[facility] Urea nitrogen mass conc 28 mg/dL High 7-[address] [facility] Comment on above: Order Comment: No: D o not add to previous draw Performed By: #### 0 0121 ####[facility] CBC W/DIFFon 07-10-2018 ABS BASOPHILS 0.2 10*3/uL Normal 0.0-0.[address] [facility] Comment on above: Order Comment: No: D o not add to previous draw Performed By: #### 0 0121 ####[facility]3000 [facility].[address] ABS IMM GRANS 2.1 10*3/uL High 0.0-0.[address] [facility] Comment on above: Order Comment: No: D o not add to previous draw Performed By: #### 0 0121 ####[facility] ABS NEUTROPHILS 13.5 10*3/uL High 1.6-7.[address] [facility] Comment on above: Order Comment: No: D o not add to previous draw Performed By: #### 0 0121 ####[facility]3000 [facility].[address] Basophils Auto #/vol (Bld) 1.0 % Normal 0.0-1.[address] [facility] Comment on above: Order Comment: No: D o not add to previous draw Performed By: #### 0 0121 ####[facility]3000 [facility].[address] Eosinophils Auto #/vol (Bld) 0.2 10*3/uL Normal 0.0-0.[address] [facility] Comment on above: Order Comment: No: D o not add to previous draw Performed By: #### 0 0121 ####[facility] [place] [address], [facility] Eosinophils/100 WBC Auto (Bld) 1.0 % Normal 0.0-6.[address] [facility] Comment on above: Order Comment: No: D o not add to previous draw Performed By: #### 0 0121 ####[facility] Erythrocyte distribution width Auto Ratio (RBC) 13.9 % Normal 11.5-15.[address] [facility] Comment on above: Order Comment: No: D o not add to previous draw Performed By: #### 0 0121 ####[facility] Hematocrit Auto Volume Fraction (Bld) 32.3 % Low 36.0-45.[address] [facility] Comment on above: Order Comment: No: D o not add to previous draw Performed By: #### 0 0121 ####[facility] Hemoglobin mass conc (Bld) 10.4 g/dL Low 12.0-15.[address] [facility] Comment on above: Order Comment: No: D o not add to previous draw Performed By: #### 0 0121 ####[facility] [place] [address], [facility] Lymphocytes Auto #/vol (Bld) 2.8 10*3/uL Normal 1.2-4.[address] [facility] Comment on above: Order Comment: No: D o not add to previous draw Performed By: #### 0 0121 ####[facility] [place] [address], [facility] Lymphocytes/100 WBC Auto (Bld) 15.0 % Low 20.0-45.[address] [facility] Comment on above: Order Comment: No: D o not add to previous draw Performed By: #### 0 0121 ####[facility] MCH Auto Entitic mass (RBC) 30.6 pg Normal 27.0-33.[address] [facility] Comment on above: Order Comment: No: D o not add to previous draw Performed By: #### 0 0121 ####[facility] MCHC Auto mass conc (RBC) 32.2 g/dL Normal 32.0-35.[address] [facility] Comment on above: Order Comment: No: D o not add to previous draw Performed By: #### 0 0121 ####[facility] MCV Auto Entitic volume (RBC) 95.0 fL Normal 82.0-98.[address] [facility] Comment on above: Order Comment: No: D o not add to previous draw Performed By: #### 0 0121 ####[place] [address] [address] METAMYELO 4.0 % High 0.0-0.[address] [facility] Comment on above: Order Comment: No: D o not add to previous draw Performed By: #### 0 0121 ####[facility] Monocytes Auto #/vol (Bld) 0.9 10*3/uL Normal 0.1-1.[address] [facility] Comment on above: Order Comment: No: D o not add to previous draw Performed By: #### 0 0121 ####[facility] [place] [address] MONOS 5.0 % Normal 5.0-12.[address] [facility] Comment on above: Order Comment: No: D o not add to previous draw Performed By: #### 0 0121 ####[facility] MYELOS 2.0 % High .0-.[address] [facility] Comment on above: Order Comment: No: D o not add to previous draw Performed By: #### 0 0121 ####[facility]3000 [facility] [place] [address], [facility] Neutrophils/100 WBC Auto (Bld) 72.0 % Normal 40.0-72.0 The [facility] Comment on above: Order Comment: No: D o not add to previous draw Performed By: #### 0 0121 ####[facility]3000 [facility].[address] Nucleated RBC/100 WBC Ratio (Bld) 0 % Normal 0-[address] [facility] Comment on above: Order Comment: No: D o not add to previous draw Performed By: #### 0 0121 ####[facility]3000 [facility] [place] [address], [facility] PLAT CNT 530 10*3/uL High 150-[address] [facility] Comment on above: Order Comment: No: D o not add to previous draw Performed By: #### 0 0121 ####[facility] [facility] [place] [address], [facility] RBC Auto #/vol (Bld) 3.40 10*6/uL Low 3.80-5.[address] [facility] Comment on above: Order Comment: No: D o not add to previous draw Performed By: #### 0 0121 ####[facility] [place] [address], [facility] WBC Auto #/vol (Bld) 18.70 10*3/uL High 4.00-10.[address] [facility] Comment on above: Order Comment: No: D o not add to previous draw Performed By: #### 0 0121 ####[address] ABDOMEN AND PELVIS WO CON TRASTon 07-10-2018 CT ABDOMEN AND PELVIS WO CONTRAST [facility] HospitalDepartment [facility] Abzqdejyl[address] [place] [address] Stacy ent Name: VIDHYA GIORDANO : 1940Sex: FAge: Race: WhiteMRN: [id number]. Location: [id number] Status: IVisit #: [id number] Date: 07/10/2018 11:10:00 AMCompleted Date: 07/10/2018 02:44 PMRequesting Provider: MEG ABEBE Attending Provider: MEG ABEBE Report Copy To: Signs & Symptoms: AbscessHistory: Patient history not availableComments: Other, leukocytosis. need oral contrastExam: CT ABDOMEN AND PELVIS WO CONTRASTAccession #: [id number] ===CT ABDOMEN AND PELVIS WO CONTRAST 07/10/2018 2:44 PM EDT SIGNS AND SYMPTOMS: Abscess TECHNOLOGIST COMMENTS: leukocytosis. ? abscess abd pain QUESTION FOR THE RADIOLOGIST: Other, leukocytosis. need oral contrast PROTOCOL: Axial CT images of the abdomen and pelvis were obtained without IV contrast. TECHNIQUE: Multidetector ct axial images of the abdomen and pelvis were obtained without IV contrast. Multiplanar reformats were performed and viewed on a separate workstation and reviewed to further define anatomy and possible pathology. Appropriate CT dose lowering techniques were utilized. COMPARISON: None. FINDINGS: Lower Chest: Partially visualized venous catheter, tip at the atriocaval junction. No cardiomegaly or pericardial effusion. Bilateral dependent atelectasis. ABDOMEN:Liver: Within normal limits.Bile Ducts: Normal caliber.Gallbladder: No calcified gallstones. Normal caliber wall.Pancreas: Within normal limits.Spleen: Within normal limits.Adrenals: Within normal limits.Kidneys: There is 2.7 x 2.3 cm lesion extending from the inferior pole of the right kidney measuring approximately 24 Hounsfield units. Pelvis:Reproductive Organs: No pelvic masses.Ureters: Within normal limits.Bladder: Air bubble noted within the urinary bladder, likely from prior instrumentation. Bowel: Status post bowel resection with multiple suture lines noted. Nonobstructive bowel gas pattern. Surgical clips noted at the gastric fundus. There is circumferential narrowing involving the mid transverse colon seen on axial image 280.Mesenteric Lymph Nodes: No enlarged mesenteric lymph nodes.Peritoneum: Surgical drain tip adjacent to the pylorus. There is fluid collection noted at the surgical site posterior to the left rectus abdominis muscle measuring approximately 5.2 x 0.8 cm (transverse X AP) visualized on axial image 412 with multiple small air bubbles. Surgical clips noted in the left upper quadrant adjacent to the spleen.Vessels: Atherosclerotic changes within normal limitsRetroperitoneum: Within normal limits.Abdominal Wall: Status post open laparotomy.Bones: Severe degenerative disease involving thoracolumbar spine. Status post posterior transpedicular fusion of T9-L5 with disc spacer placement at L2-L3, L3-L4 and L4-L5. IMPRESSION:There is fluid collection posterior to the left rectus abdominis muscle measuring approximately 0.8 cm in AP dimension and 5.2 cm in transverse dimension with multiple small air bubbles, this may represent postoperative seroma or early developing abscess. At this time it is too thin for placement of a drainage catheter.There is 2.7 x 2.3 cm lesion extending from the inferior pole of the right kidney, kidney ultrasound is recommended for further evaluation.Circumferential narrowing involving the mid transverse colon, please correlate with prior colonoscopy.Dilatation of the stomach and duodenum with normal proximal jejunum. Partial bowel obstruction involving the distal duodenum or proximal jejunum cannot be excluded bulk of the contrast given is still within the stomach delayed imaging may be helpful for further evaluation Finding discussed with Dr. Alvarado at 3:21 PM 07/10/2018. Approved by:Wu Turner on 07/10/2018 3:27 PM EDT. I, Rhoda Nicole, have reviewed the images and report and concur with these findings. Electronically signed by:Rhoda Nicole. Transcribed by: [id number], User Resident: WU TURNERElectronically Signed by: RHODA NICOLE @ 07/12/2018 10:55 AMI personally read this/these film(s) with this resident Normal [facility] Comment on above: Order Comment: Other , leukocytosis. need oral contrast MAGNESIUM BLOODon 07-10-2018 Magnesium mass conc 1.8 mg/dL Low 1.9-2.[address] [facility] Comment on above: Order Comment: No: D o not add to previous draw Performed By: #### 0 0121 ####[facility] [place] [address], [facility] PHOSPHORUS BLOODon 8 Phosphate mass conc 4.4 mg/dL Normal 2.5-5.[address] [facility] Comment on above: Order Comment: No: D o not add to previous draw Performed By: #### 0 0121 ####[facility] [place] [address], [facility] POC GLUCOSE LABon 07-10-2018 Glucose mass conc 183 mg/dL High 70-[address] [facility] Comment on above: Performed By: #### 0 0121 ####[facility] [place] [address], [place] Glucose mass conc 195 mg/dL High 70-[address] [facility] Comment on above: Performed By: #### 0 0121 ####[facility] [place] [address], [place] Glucose mass conc 246 mg/dL High 70-[address] [facility] Comment on above: Performed By: #### 0 0121 ####[facility] [place] [address], [place] Glucose mass conc 187 mg/dL High 70-[address] [facility] Comment on above: Performed By: #### 0 0121 ####[facility] *BLOOD CULTUREon 07-09-2018 Bacteria identified in Blood by Culture Clinical Report: (D) Specimen: BLOOD CULTURE Collected: 07/09/2018 17:53 Status: Final Last Updated: 07/15/2018 07:43 CULT RES (Final) No Growth Day [address] [facility] Comment on above: Performed By: #### 0 0121 ####[facility]3000 [facility].[address] BASIC METABOLIC PANELon Calcium mass conc 9.2 mg/dL Normal 8.6-10.[address] [facility] Comment on above: Order Comment: No: D o not add to previous draw Performed By: #### 0 0121 ####[facility] [facility] [place] [address], [facility] Chloride molar conc 102 mmol/L Normal 98-[address] [facility] Comment on above: Order Comment: No: D o not add to previous draw Performed By: #### 0 0121 ####[facility] [facility] [place] [address], [facility] CO2 molar conc 25 mmol/L Normal 21-[address] [facility] Comment on above: Order Comment: No: D o not add to previous draw Performed By: #### 0 0121 ####[facility] [facility] [place] [address], [facility] Creatinine mass conc 0.95 mg/dL Normal 0.60-1.[address] [facility] Comment on above: Order Comment: No: D o not add to previous draw Performed By: #### 0 0121 ####[place] [address] [facility] [place] [address], [facility] GFR/1.73 sq M predicted among blacks MDRD vol rate/area (S/P/Bld) mL/min/{1.73_m2} Normal >[address] [facility] Comment on above: Order Comment: No: D o not add to previous draw Result Comment: Calc ulation may not be valid for patients over 70 years Performed By: #### 0 0121 ####[facility] [place] [address], [facility] GFR/1.73 sq M predicted among non-blacks MDRD vol rate/area (S/P/Bld) 56 ml/min/1.73sq m Abnormal >[address] [facility] Comment on above: Order Comment: No: D o not add to previous draw Result Comment: Calc ulation may not be valid for patients over 70 years Performed By: #### 0 0121 ####[facility] [place] [address], [facility] Glucose mass conc 178 mg/dL High 70-[address] [facility] Comment on above: Order Comment: No: D o not add to previous draw Performed By: #### 0 0121 ####[facility] [place] [address], [facility] Potassium molar conc 4.5 mmol/L Normal 3.5-5.[address] [facility] Comment on above: Order Comment: No: D o not add to previous draw Performed By: #### 0 0121 ####[facility] [place] [address], [facility] Sodium molar conc 131 mmol/L Low 136-[address] [facility] Comment on above: Order Comment: No: D o not add to previous draw Performed By: #### 0 0121 ####[facility] [place] [address], [facility] Urea nitrogen mass conc 28 mg/dL High 7-[address] [facility] Comment on above: Order Comment: No: D o not add to previous draw Performed By: #### 0 0121 ####[facility] CBC W/DIFFon 07-09-2018 ABS BASOPHILS 0.0 10*3/uL Normal 0.0-0.[address] [facility] Comment on above: Order Comment: No: D o not add to previous draw Performed By: #### 0 0121 ####[facility] ABS NEUTROPHILS 12.4 10*3/uL High 1.6-7.[address] [facility] Comment on above: Order Comment: No: D o not add to previous draw Performed By: #### 0 0121 ####[facility] Basophils Auto #/vol (Bld) 0.0 % Normal 0.0-1.[address] [facility] Comment on above: Order Comment: No: D o not add to previous draw Performed By: #### 0 0121 ####[facility]3000 [facility].[address] Eosinophils Auto #/vol (Bld) 0.3 10*3/uL Normal 0.0-0.[address] [facility] Comment on above: Order Comment: No: D o not add to previous draw Performed By: #### 0 0121 ####[facility] Eosinophils/100 WBC Auto (Bld) 1.8 % Normal 0.0-6.[address] [facility] Comment on above: Order Comment: No: D o not add to previous draw Performed By: #### 0 0121 ####[facility] Erythrocyte distribution width Auto Ratio (RBC) 14.0 % Normal 11.5-15.[address] [facility] Comment on above: Order Comment: No: D o not add to previous draw Performed By: #### 0 0121 ####[facility] GIANT PLATELETS Present Normal [facility] Comment on above: Order Comment: No: D o not add to previous draw Performed By: #### 0 0121 ####[facility] Hematocrit Auto Volume Fraction (Bld) 30.0 % Low 36.0-45.[address] [facility] Comment on above: Order Comment: No: D o not add to previous draw Performed By: #### 0 0121 ####[facility] Hemoglobin mass conc (Bld) 9.6 g/dL Low 12.0-15.[address] [facility] Comment on above: Order Comment: No: D o not add to previous draw Performed By: #### 0 0121 ####[facility] Lymphocytes Auto #/vol (Bld) 3.1 10*3/uL Normal 1.2-4.[address] [facility] Comment on above: Order Comment: No: D o not add to previous draw Performed By: #### 0 0121 ####[facility] Lymphocytes/100 WBC Auto (Bld) 17.4 % Low 20.0-45.[address] [facility] Comment on above: Order Comment: No: D o not add to previous draw Performed By: #### 0 0121 ####[facility] MCH Auto Entitic mass (RBC) 30.6 pg Normal 27.0-33.[address] [facility] Comment on above: Order Comment: No: D o not add to previous draw Performed By: #### 0 0121 ####[facility] MCHC Auto mass conc (RBC) 32.0 g/dL Normal 32.0-35.[address] [facility] Comment on above: Order Comment: No: D o not add to previous draw Performed By: #### 0 0121 ####[facility] MCV Auto Entitic volume (RBC) 95.5 fL Normal 82.0-98.[address] [facility] Comment on above: Order Comment: No: D o not add to previous draw Performed By: #### 0 0121 ####[facility] METAMYELO 1.8 % High 0.0-0.[address] [facility] Comment on above: Order Comment: No: D o not add to previous draw Performed By: #### 0 0121 ####[facility] Monocytes Auto #/vol (Bld) 1.3 10*3/uL High 0.1-1.[address] [facility] Comment on above: Order Comment: No: D o not add to previous draw Performed By: #### 0 0121 ####[facility] MONOS 7.4 % Normal 5.0-12.[address] [facility] Comment on above: Order Comment: No: D o not add to previous draw Performed By: #### 0 0121 ####[facility] MYELOS 0.9 % High .0-.[address] [facility] Comment on above: Order Comment: No: D o not add to previous draw Performed By: #### 0 0121 ####[facility] Neutrophils/100 WBC Auto (Bld) 70.7 % Normal 40.0-72.[address] [facility] Comment on above: Order Comment: No: D o not add to previous draw Performed By: #### 0 0121 ####[facility] NRBC SCAN Present Normal [facility] Comment on above: Order Comment: No: D o not add to previous draw Performed By: #### 0 0121 ####[facility]3000 [facility].[address] Nucleated RBC/100 WBC Ratio (Bld) 0 % Normal 0-[address] [facility] Comment on above: Order Comment: No: D o not add to previous draw Performed By: #### 0 0121 ####[facility]3000 [facility].[address] PLAT CNT 430 10*3/uL High 150-[address] [facility] Comment on above: Order Comment: No: D o not add to previous draw Performed By: #### 0 0121 ####[facility]3000 [facility].[address] RBC Auto #/vol (Bld) 3.14 10*6/uL Low 3.80-5.[address] [facility] Comment on above: Order Comment: No: D o not add to previous draw Performed By: #### 0 0121 ####[facility]3000 [facility].[address] WBC Auto #/vol (Bld) 17.58 10*3/uL High 4.00-10.[address] [facility] Comment on above: Order Comment: No: D o not add to previous draw Performed By: #### 0 0121 ####[facility] [facility].[address] MAGNESIUM BLOODon 07-09-2018 Magnesium mass conc 1.8 mg/dL Low 1.9-2.[address] [facility] Comment on above: Order Comment: No: D o not add to previous draw Performed By: #### 0 0121 ####[facility] [facility] [place] [address], [facility] PHOSPHORUS BLOODon 8 Phosphate mass conc 4.1 mg/dL Normal 2.5-5.[address] [facility] Comment on above: Order Comment: No: D o not add to previous draw Performed By: #### 0 0121 ####[facility] [place] [address], [facility] POC GLUCOSE LABon 07-09-2018 Glucose mass conc 172 mg/dL High 70-[address] [facility] Comment on above: Performed By: #### 0 0121 ####[address] Glucose mass conc 179 mg/dL High 70-[address] [facility] Comment on above: Performed By: #### 0 0121 ####[address] Glucose mass conc 168 mg/dL High 70-[address] [facility] Comment on above: Performed By: #### 0 0121 ####[address] Glucose mass conc 147 mg/dL High 70-[address] [facility] Comment on above: Performed By: #### 0 0121 ####[address] PORTABLE CHEST 1 VIEWon PORTABLE CHEST [address] [facility] [address] HospitalDepartment of Innfinrml[address] [place] [address] Stacy ent Name: VIDHYA GIORDANO : 1940Sex: FAge: Race: WhiteMRN: [id number]. Location: [id number] Status: IVisit #: [id number] Date: 07/09/2018 5:25:00 PMCompleted Date: 07/09/2018 06:13 PMRequesting Provider: MARLIN DELGADO Attending Provider: MEG ABEBE Report Copy To: Signs & Symptoms: Elevated WBCHistory: Patient history not availableComments: R/O PneumoniaExam: PORTABLE CHEST 1 VIEWAccession #: [id number] ===PORTABLE CHEST 1 VIEW 07/09/2018 6:13 PM EDT SIGNS AND SYMPTOMS: Elevated WBC TECHNOLOGIST COMMENTS: Patient short of breath and elevated WBC QUESTION FOR THE RADIOLOGIST: R/O Pneumonia PROTOCOL: AP(PA) view was obtained. COMPARISON: June 29, 2018 FINDINGS: Interval placement of left PICC line catheter, tip in the mid SVC. Redemonstration of thoracolumbar hardware fusion. Surgical clips noted in the left upper quadrant. Trachea is in the midline. Slightly increased cardiomediastinal silhouette. Costophrenic angles clear bilaterally. No pulmonary consolidation, effusion or pneumothorax no acute osseous abnormality. IMPRESSION: Mild elevation of the right hemidiaphragm and right lower lobe atelectasis. Improved since prior study Approved by:Wu Turner on 07/09/2018 7:00 PM EDT. I, Rhoda Nicole, have reviewed the images and report and concur with these findings. Electronically signed by:Rhoda Nicole. Transcribed by: [email or web address], User Resident: WU TURNERElectronically Signed by: RHODA NICOLE @ 07/10/2018 12:40 PMI personally read this/these film(s) with this resident Normal [facility] Comment on above: Order Comment: R/O P neumonia URINALYSIS REFLEXon 07-09-20 18 APPEARANCE CLEAR Normal CLEAR [facility] Comment on above: Order Comment: No: D o not add to previous drawCriteria for reflexing a culture was not met. Please call the lab [phone] within 24 hours of collection time if culture is needed Performed By: #### 0 0121 ####[facility] [place] [address], [facility] BILIRUBIN Negative Normal NEGATIVE [facility] Comment on above: Order Comment: No: D o not add to previous drawCriteria for reflexing a culture was not met. Please call the lab [id number] within 24 hours of collection time if culture is needed Performed By: #### 0 0121 ####[facility] [facility] [place] [address], [place] BLOOD Negative Normal NEGATIVE [facility] Comment on above: Order Comment: No: D o not add to previous drawCriteria for reflexing a culture was not met. Please call the lab [phone] within 24 hours of collection time if culture is needed Performed By: #### 0 0121 ####[facility] [facility] [place] [address], [place] COLOR YELLOW Normal YELLOW [facility] Comment on above: Order Comment: No: D o not add to previous drawCriteria for reflexing a culture was not met. Please call the lab [phone] within 24 hours of collection time if culture is needed Performed By: #### 0 0121 ####[facility] [address], [place] GLUCOSE Negative Normal NEGATIVE [facility] Comment on above: Order Comment: No: D o not add to previous drawCriteria for reflexing a culture was not met. Please call the lab [phone] within 24 hours of collection time if culture is needed Performed By: #### 0 0121 ####[facility] [place] [address], [place] KETONE Negative Normal NEGATIVE [facility] Comment on above: Order Comment: No: D o not add to previous drawCriteria for reflexing a culture was not met. Please call the lab [phone] within 24 hours of collection time if culture is needed Performed By: #### 0 0121 ####[facility] [facility] [place] [address], [facility] [place] Negative Normal NEGATIVE [facility] Comment on above: Order Comment: No: D o not add to previous drawCriteria for reflexing a culture was not met. Please call the lab [phone] within 24 hours of collection time if culture is needed Performed By: #### 0 0121 ####[facility] [facility] [address], [facility] MICRO NOT DONE negative chemical reactions unless requested in original order Normal [facility] Comment on above: Order Comment: No: D o not add to previous drawCriteria for reflexing a culture was not met. Please call the lab [phone] within 24 hours of collection time if culture is needed Performed By: #### 0 0121 ####[facility] [facility] [place] [address], [facility] NITRITE Negative Normal NEGATIVE [facility] Comment on above: Order Comment: No: D o not add to previous drawCriteria for reflexing a culture was not met. Please call the lab [phone] within 24 hours of collection time if culture is needed Performed By: #### 0 0121 ####[facility] [facility] [place] [address], [facility] PH 5.0 Normal 5.0-8.[address] [facility] Comment on above: Order Comment: No: D o not add to previous drawCriteria for reflexing a culture was not met. Please call the lab [phone] within 24 hours of collection time if culture is needed Performed By: #### 0 0121 ####[facility] [facility] [place] [address], [place] Protein mass conc Negative Normal NEGATIVE [facility] Comment on above: Order Comment: No: D o not add to previous drawCriteria for reflexing a culture was not met. Please call the lab [phone] within 24 hours of collection time if culture is needed Performed By: #### 0 0121 ####[facility]3000 [facility].[address] SPEC GRAV 1.009 Low 1.015-1.[address] [facility] Comment on above: Order Comment: No: D o not add to previous drawCriteria for reflexing a culture was not met. Please call the lab [phone] within 24 hours of collection time if culture is needed Performed By: #### 0 0121 ####[facility]3000 [facility].[address] BASIC METABOLIC PANELon 08-3 Calcium mass conc 9.2 mg/dL Normal 8.6-10.[address] [facility] Comment on above: Order Comment: No: D o not add to previous drawNo collection time noted on specimen or requisition. The collection timerecorded is the time of receipt in the lab. Performed By: #### 1 0070, 51643, 72485 ####[facility]3000 [facility] [place] [address], [facility] Chloride molar conc 100 mmol/L Normal 98-[address] [facility] Comment on above: Order Comment: No: D o not add to previous drawNo collection time noted on specimen or requisition. The collection timerecorded is the time of receipt in the lab. Performed By: #### 1 0070, 99715, 18351 ####[facility]3000 [facility] [place] [address], [facility] CO2 molar conc 26 mmol/L Normal 21-[address] [facility] Comment on above: Order Comment: No: D o not add to previous drawNo collection time noted on specimen or requisition. The collection timerecorded is the time of receipt in the lab. Performed By: #### 1 0070, 16941, 62385 ####[facility]3000 [facility] [place] [address], [facility] Creatinine mass conc 0.92 mg/dL Normal 0.60-1.[address] [facility] Comment on above: Order Comment: No: D o not add to previous drawNo collection time noted on specimen or requisition. The collection timerecorded is the time of receipt in the lab. Performed By: #### 1 0070, 58186, 12011 ####[facility]3000 [facility] [address], [facility] GFR/1.73 sq M predicted among blacks MDRD vol rate/area (S/P/Bld) mL/min/{1.73_m2} Normal >[address] [facility] Comment on above: Order Comment: No: D o not add to previous drawNo collection time noted on specimen or requisition. The collection timerecorded is the time of receipt in the lab. Result Comment: Calc ulation may not be valid for patients over 70 years Performed By: #### 1 0070, 83458, 71721 ####[facility]3000 [facility] [place] [address], [facility] GFR/1.73 sq M predicted among non-blacks MDRD vol rate/area (S/P/Bld) 59 ml/min/1.73sq m Abnormal >[address] [facility] Comment on above: Order Comment: No: D o not add to previous drawNo collection time noted on specimen or requisition. The collection timerecorded is the time of receipt in the lab. Result Comment: Calc ulation may not be valid for patients over 70 years Performed By: #### 1 0070, 51362, 55210 ####[facility]3000 [facility] [place] [address], [facility] Glucose mass conc 391 mg/dL High 70-[address] [facility] Comment on above: Order Comment: No: D o not add to previous drawNo collection time noted on specimen or requisition. The collection timerecorded is the time of receipt in the lab. Performed By: #### 1 0070, 39323, 50830 ####[facility] [place] [address] Potassium molar conc 5.1 mmol/L Normal 3.5-5.[address] [facility] Comment on above: Order Comment: No: D o not add to previous drawNo collection time noted on specimen or requisition. The collection timerecorded is the time of receipt in the lab. Performed By: #### 1 0070, 22149, 65878 ####[facility] Sodium molar conc 130 mmol/L Low 136-[address] [facility] Comment on above: Order Comment: No: D o not add to previous drawNo collection time noted on specimen or requisition. The collection timerecorded is the time of receipt in the lab. Performed By: #### 1 0070, 16811, 66210 ####[place] [address] [address] Urea nitrogen mass conc 24 mg/dL Normal 7-[address] [facility] Comment on above: Order Comment: No: D o not add to previous drawNo collection time noted on specimen or requisition. The collection timerecorded is the time of receipt in the lab. Performed By: #### 1 0070, 80624, 92032 ####[facility] CBC W/DIFFon 07-08-2018 ABS BASOPHILS 0.5 10*3/uL High 0.0-0.[address] [facility] Comment on above: Order Comment: No: D o not add to previous drawNo collection time noted on specimen or requisition. The collection timerecorded is the time of receipt in the lab. Performed By: #### 1 0070, 16451, 43106 ####[facility] [place] [address] ABS NEUTROPHILS 12.1 10*3/uL High 1.6-7.[address] [facility] Comment on above: Order Comment: No: D o not add to previous drawNo collection time noted on specimen or requisition. The collection timerecorded is the time of receipt in the lab. Performed By: #### 1 0, 48296, 81022 ####[facility] Basophils Auto #/vol (Bld) 2.8 % High 0.0-1.[address] [facility] Comment on above: Order Comment: No: D o not add to previous drawNo collection time noted on specimen or requisition. The collection timerecorded is the time of receipt in the lab. Performed By: #### 1 0, 52616, 77949 ####[facility] Eosinophils Auto #/vol (Bld) 0.1 10*3/uL Normal 0.0-0.[address] [facility] Comment on above: Order Comment: No: D o not add to previous drawNo collection time noted on specimen or requisition. The collection timerecorded is the time of receipt in the lab. Performed By: #### 1 0, 78972, 72256 ####[place] [address] [address] Eosinophils/100 WBC Auto (Bld) 0.9 % Normal 0.0-6.[address] [facility] Comment on above: Order Comment: No: D o not add to previous drawNo collection time noted on specimen or requisition. The collection timerecorded is the time of receipt in the lab. Performed By: #### 1 0, 36150, 63108 ####[facility] Erythrocyte distribution width Auto Ratio (RBC) 13.7 % Normal 11.5-15.[address] [facility] Comment on above: Order Comment: No: D o not add to previous drawNo collection time noted on specimen or requisition. The collection timerecorded is the time of receipt in the lab. Performed By: #### 1 0, 29725, 17466 ####[facility] Hematocrit Auto Volume Fraction (Bld) 30.4 % Low 36.0-45.[address] [facility] Comment on above: Order Comment: No: D o not add to previous drawNo collection time noted on specimen or requisition. The collection timerecorded is the time of receipt in the lab. Performed By: #### 1 0070, 86624, 89433 ####[address] Hemoglobin mass conc (Bld) 9.7 g/dL Low 12.0-15.[address] [facility] Comment on above: Order Comment: No: D o not add to previous drawNo collection time noted on specimen or requisition. The collection timerecorded is the time of receipt in the lab. Performed By: #### 1 0, 79595, 11167 ####[address] Lymphocytes Auto #/vol (Bld) 1.5 10*3/uL Normal 1.2-4.[address] [facility] Comment on above: Order Comment: No: D o not add to previous drawNo collection time noted on specimen or requisition. The collection timerecorded is the time of receipt in the lab. Performed By: #### 1 0, 71587, 18370 ####[address] Lymphocytes/100 WBC Auto (Bld) 9.2 % Low 20.0-45.[address] [facility] Comment on above: Order Comment: No: D o not add to previous drawNo collection time noted on specimen or requisition. The collection timerecorded is the time of receipt in the lab. Performed By: #### 1 0070, 57689, 48718 ####[address] MCH Auto Entitic mass (RBC) 30.7 pg Normal 27.0-33.[address] [facility] Comment on above: Order Comment: No: D o not add to previous drawNo collection time noted on specimen or requisition. The collection timerecorded is the time of receipt in the lab. Performed By: #### 1 0, 75838, 45960 ####[facility] MCHC Auto mass conc (RBC) 31.9 g/dL Low 32.0-35.[address] [facility] Comment on above: Order Comment: No: D o not add to previous drawNo collection time noted on specimen or requisition. The collection timerecorded is the time of receipt in the lab. Performed By: #### 1 0, 13586, 07343 ####[address] MCV Auto Entitic volume (RBC) 96.2 fL Normal 82.0-98.[address] [facility] Comment on above: Order Comment: No: D o not add to previous drawNo collection time noted on specimen or requisition. The collection timerecorded is the time of receipt in the lab. Performed By: #### 1 0, 46062, 87062 ####[place] [address] [address] Monocytes Auto #/vol (Bld) 1.9 10*3/uL High 0.1-1.[address] [facility] Comment on above: Order Comment: No: D o not add to previous drawNo collection time noted on specimen or requisition. The collection timerecorded is the time of receipt in the lab. Performed By: #### 1 0, 51397, 08683 ####[facility] MONOS 11.9 % Normal 5.0-12.[address] [facility] Comment on above: Order Comment: No: D o not add to previous drawNo collection time noted on specimen or requisition. The collection timerecorded is the time of receipt in the lab. Performed By: #### 1 0, , 92812 ####[facility]3000 [facility] [place] [address], [facility] Neutrophils/100 WBC Auto (Bld) 75.2 % High 40.0-72.[address] [facility] Comment on above: Order Comment: No: D o not add to previous drawNo collection time noted on specimen or requisition. The collection timerecorded is the time of receipt in the lab. Performed By: #### 1 0, , 15365 ####[facility]3000 [facility].[address] Nucleated RBC/100 WBC Ratio (Bld) 0 % Normal 0-[address] [facility] Comment on above: Order Comment: No: D o not add to previous drawNo collection time noted on specimen or requisition. The collection timerecorded is the time of receipt in the lab. Performed By: #### 1 0, , 78880 ####[facility] [place] [address], [facility] PLAT CNT 354 10*3/uL Normal 150-[address] [facility] Comment on above: Order Comment: No: D o not add to previous drawNo collection time noted on specimen or requisition. The collection timerecorded is the time of receipt in the lab. Performed By: #### 1 0, , 09058 ####[facility]3000 [facility].[address] RBC Auto #/vol (Bld) 3.16 10*6/uL Low 3.80-5.[address] [facility] Comment on above: Order Comment: No: D o not add to previous drawNo collection time noted on specimen or requisition. The collection timerecorded is the time of receipt in the lab. Performed By: #### 1 0, 52699, 56822 ####[facility] [facility] [place] [address], [facility] WBC Auto #/vol (Bld) 16.12 10*3/uL High 4.00-10.[address] [facility] Comment on above: Order Comment: No: D o not add to previous drawNo collection time noted on specimen or requisition. The collection timerecorded is the time of receipt in the lab. Performed By: #### 1 0070, 44867, 94238 ####[facility] [facility] [place] [address], [facility] MAGNESIUM BLOODon 07-08-2018 Magnesium mass conc 2.3 mg/dL Normal 1.9-2.[address] [facility] Comment on above: Order Comment: No: D o not add to previous drawNo collection time noted on specimen or requisition. The collection timerecorded is the time of receipt in the lab. Performed By: #### 1 0070, 80780, 10560 ####[facility] [facility] [place] [address], [facility] PHOSPHORUS BLOODon 8 Phosphate mass conc 4.7 mg/dL Normal 2.5-5.[address] [facility] Comment on above: Order Comment: No: D o not add to previous drawNo collection time noted on specimen or requisition. The collection timerecorded is the time of receipt in the lab. Performed By: #### 1 0070, 49429, 91963 ####[facility] [facility] [place] [address], [facility] POC GLUCOSE LABon 07-08-2018 Glucose mass conc 115 mg/dL High 70-[address] [facility] Comment on above: Performed By: #### 0 0121 ####[facility] [facility] [place] [address], [facility] Glucose mass conc 183 mg/dL High 70-[address] [facility] Comment on above: Performed By: #### 0 0121 ####[facility] [facility] [place] [address], [facility] BASIC METABOLIC PANELon 06-10 Calcium mass conc 9.5 mg/dL Normal 8.6-10.[address] [facility] Comment on above: Order Comment: No: D o not add to previous drawNo collection time noted on specimen or requisition. The collection timerecorded is the time of receipt in the lab. Performed By: #### 1 0070, 62349, 78158 ####[facility] [facility] [place] [address], [facility] Chloride molar conc 99 mmol/L Normal 98-[address] [facility] Comment on above: Order Comment: No: D o not add to previous drawNo collection time noted on specimen or requisition. The collection timerecorded is the time of receipt in the lab. Performed By: #### 1 0070, 79188, 84498 ####[facility] [facility] [place] [address], [facility] CO2 molar conc 24 mmol/L Normal 21-[address] [facility] Comment on above: Order Comment: No: D o not add to previous drawNo collection time noted on specimen or requisition. The collection timerecorded is the time of receipt in the lab. Performed By: #### 1 0070, 19984, 68537 ####[facility] [place] [address], [facility] Creatinine mass conc 0.90 mg/dL Normal 0.60-1.[address] [facility] Comment on above: Order Comment: No: D o not add to previous drawNo collection time noted on specimen or requisition. The collection timerecorded is the time of receipt in the lab. Performed By: #### 1 0070, 29076, 01705 ####[facility] [facility] [place] [address], [facility] GFR/1.73 sq M predicted among blacks MDRD vol rate/area (S/P/Bld) mL/min/{1.73_m2} Normal >[address] [facility] Comment on above: Order Comment: No: D o not add to previous drawNo collection time noted on specimen or requisition. The collection timerecorded is the time of receipt in the lab. Result Comment: Calc ulation may not be valid for patients over 70 years Performed By: #### 1 0070, 43276, 36800 ####[facility] [facility] [place] [address], [facility] GFR/1.73 sq M predicted among non-blacks MDRD vol rate/area (S/P/Bld) mL/min/{1.73_m2} Normal >[address] [facility] Comment on above: Order Comment: No: D o not add to previous drawNo collection time noted on specimen or requisition. The collection timerecorded is the time of receipt in the lab. Result Comment: Calc ulation may not be valid for patients over 70 years Performed By: #### 1 0070, 41884, 71025 ####[facility] [facility] [place] [address], [facility] Glucose mass conc 207 mg/dL High 70-[address] [facility] Comment on above: Order Comment: No: D o not add to previous drawNo collection time noted on specimen or requisition. The collection timerecorded is the time of receipt in the lab. Performed By: #### 1 0, 08827, 60981 ####[facility] [facility] [place] [address], [facility] Potassium molar conc 4.4 mmol/L Normal 3.5-5.[address] [facility] Comment on above: Order Comment: No: D o not add to previous drawNo collection time noted on specimen or requisition. The collection timerecorded is the time of receipt in the lab. Performed By: #### 1 0070, 41820, 39689 ####[facility] [facility] [place] [address], [facility] Sodium molar conc 131 mmol/L Low 136-[address] [facility] Comment on above: Order Comment: No: D o not add to previous drawNo collection time noted on specimen or requisition. The collection timerecorded is the time of receipt in the lab. Performed By: #### 1 0070, 96103, 07554 ####[facility]3000 [facility].[address] Urea nitrogen mass conc 19 mg/dL Normal 7-[address] [facility] Comment on above: Order Comment: No: D o not add to previous drawNo collection time noted on specimen or requisition. The collection timerecorded is the time of receipt in the lab. Performed By: #### 1 0070, 63961, 05257 ####[facility] CALCIUM IONIZED CBGLon 07-07 IONIZED CALCIUM 1.42 mmol/L High 1.12-1.[address] [facility] Comment on above: Performed By: #### 1 0, 00107, 24774 ####[facility] CBC W/DIFFon 07-07-2018 ABS BASOPHILS 0.0 10*3/uL Normal 0.0-0.[address] [facility] Comment on above: Order Comment: No: D o not add to previous drawNo collection time noted on specimen or requisition. The collection timerecorded is the time of receipt in the lab. Performed By: #### 1 0, 11380, 12892 ####[facility] ABS NEUTROPHILS 12.3 10*3/uL High 1.6-7.[address] [facility] Comment on above: Order Comment: No: D o not add to previous drawNo collection time noted on specimen or requisition. The collection timerecorded is the time of receipt in the lab. Performed By: #### 1 0070, 99139, 06920 ####[facility] Basophils Auto #/vol (Bld) 0.0 % Normal 0.0-1.[address] [facility] Comment on above: Order Comment: No: D o not add to previous drawNo collection time noted on specimen or requisition. The collection timerecorded is the time of receipt in the lab. Performed By: #### 1 0, 04549, 81177 ####[facility] Eosinophils Auto #/vol (Bld) 1.1 10*3/uL High 0.0-0.[address] [facility] Comment on above: Order Comment: No: D o not add to previous drawNo collection time noted on specimen or requisition. The collection timerecorded is the time of receipt in the lab. Performed By: #### 1 0, 87451, 88103 ####[facility]3000 [facility].[address] Eosinophils/100 WBC Auto (Bld) 6.4 % High 0.0-6.[address] [facility] Comment on above: Order Comment: No: D o not add to previous drawNo collection time noted on specimen or requisition. The collection timerecorded is the time of receipt in the lab. Performed By: #### 1 0, 47164, 71246 ####[facility] Erythrocyte distribution width Auto Ratio (RBC) 13.6 % Normal 11.5-15.[address] [facility] Comment on above: Order Comment: No: D o not add to previous drawNo collection time noted on specimen or requisition. The collection timerecorded is the time of receipt in the lab. Performed By: #### 1 0, 09463, 10774 ####[facility] [facility] [place] [address], [facility] GIANT PLATELETS Present Normal [facility] Comment on above: Order Comment: No: D o not add to previous drawNo collection time noted on specimen or requisition. The collection timerecorded is the time of receipt in the lab. Performed By: #### 1 0, 69253, 64536 ####[facility] [facility] [place] [address], [facility] Hematocrit Auto Volume Fraction (Bld) 31.8 % Low 36.0-45.[address] [facility] Comment on above: Order Comment: No: D o not add to previous drawNo collection time noted on specimen or requisition. The collection timerecorded is the time of receipt in the lab. Performed By: #### 1 0070, 97761, 36283 ####[facility] Hemoglobin mass conc (Bld) 10.1 g/dL Low 12.0-15.[address] [facility] Comment on above: Order Comment: No: D o not add to previous drawNo collection time noted on specimen or requisition. The collection timerecorded is the time of receipt in the lab. Performed By: #### 1 0, 11770, 48544 ####[address] Lymphocytes Auto #/vol (Bld) 2.7 10*3/uL Normal 1.2-4.[address] [facility] Comment on above: Order Comment: No: D o not add to previous drawNo collection time noted on specimen or requisition. The collection timerecorded is the time of receipt in the lab. Performed By: #### 1 0, 14725, 09639 ####[address] Lymphocytes/100 WBC Auto (Bld) 15.4 % Low 20.0-45.[address] [facility] Comment on above: Order Comment: No: D o not add to previous drawNo collection time noted on specimen or requisition. The collection timerecorded is the time of receipt in the lab. Performed By: #### 1 0070, 17879, 26007 ####[facility] [place] [address] MCH Auto Entitic mass (RBC) 31.3 pg Normal 27.0-33.[address] [facility] Comment on above: Order Comment: No: D o not add to previous drawNo collection time noted on specimen or requisition. The collection timerecorded is the time of receipt in the lab. Performed By: #### 1 0, 12084, 63111 ####[facility] MCHC Auto mass conc (RBC) 31.8 g/dL Low 32.0-35.[address] [facility] Comment on above: Order Comment: No: D o not add to previous drawNo collection time noted on specimen or requisition. The collection timerecorded is the time of receipt in the lab. Performed By: #### 1 0, , 47479 ####[facility] [facility] Auto Entitic volume (RBC) 98.5 fL High 82.0-98.[address] [facility] Comment on above: Order Comment: No: D o not add to previous drawNo collection time noted on specimen or requisition. The collection timerecorded is the time of receipt in the lab. Performed By: #### 1 0, , [id number] ####[facility] METAMYELO 0.9 % High 0.0-0.[address] [facility] Comment on above: Order Comment: No: D o not add to previous drawNo collection time noted on specimen or requisition. The collection timerecorded is the time of receipt in the lab. Performed By: #### 1 0, , [id number] ####[facility] Monocytes Auto #/vol (Bld) 1.0 10*3/uL Normal 0.1-1.[address] [facility] Comment on above: Order Comment: No: D o not add to previous drawNo collection time noted on specimen or requisition. The collection timerecorded is the time of receipt in the lab. Performed By: #### 1 0, 06344, 29315 ####[facility]3000 [facility] [address], [facility] MONOS 5.5 % Normal 5.0-12.[address] [facility] Comment on above: Order Comment: No: D o not add to previous drawNo collection time noted on specimen or requisition. The collection timerecorded is the time of receipt in the lab. Performed By: #### 1 0070, 84834, 44108 ####[facility]3000 [facility].[address] MYELOS 0.9 % High .0-.[address] [facility] Comment on above: Order Comment: No: D o not add to previous drawNo collection time noted on specimen or requisition. The collection timerecorded is the time of receipt in the lab. Performed By: #### 1 0, 95951, 99612 ####[facility]3000 [facility].[address] Neutrophils/100 WBC Auto (Bld) 70.9 % Normal 40.0-72.[address] [facility] Comment on above: Order Comment: No: D o not add to previous drawNo collection time noted on specimen or requisition. The collection timerecorded is the time of receipt in the lab. Performed By: #### 1 0, 18229, 05126 ####[facility]3000 [facility].[address] Nucleated RBC/100 WBC Ratio (Bld) 0 % Normal 0-[address] [facility] Comment on above: Order Comment: No: D o not add to previous drawNo collection time noted on specimen or requisition. The collection timerecorded is the time of receipt in the lab. Performed By: #### 1 0070, 54128, 03772 ####[address] [place] [address], [facility] PLAT CNT 382 10*3/uL Normal 150-[address] [facility] Comment on above: Order Comment: No: D o not add to previous drawNo collection time noted on specimen or requisition. The collection timerecorded is the time of receipt in the lab. Performed By: #### 1 0070, 70379, 13422 ####[facility]3000 [facility].[address] RBC Auto #/vol (Bld) 3.23 10*6/uL Low 3.80-5.[address] [facility] Comment on above: Order Comment: No: D o not add to previous drawNo collection time noted on specimen or requisition. The collection timerecorded is the time of receipt in the lab. Performed By: #### 1 0070, 80669, 47125 ####[facility] WBC Auto #/vol (Bld) 17.29 10*3/uL High 4.00-10.[address] [facility] Comment on above: Order Comment: No: D o not add to previous drawNo collection time noted on specimen or requisition. The collection timerecorded is the time of receipt in the lab. Performed By: #### 1 0070, 55549, 13759 ####[facility] LIVER BATTERYon 07-07-2018 Albumin mass conc 3.0 g/dL Low 3.5-5.[address] [facility] Comment on above: Order Comment: No: D o not add to previous drawNo collection time noted on specimen or requisition. The collection timerecorded is the time of receipt in the lab. Performed By: #### 1 0070, 31408, 96954 ####[facility]3000 [facility].[address] ALKALINE PHOSPH 99 IU/L Normal 34-[address] [facility] Comment on above: Order Comment: No: D o not add to previous drawNo collection time noted on specimen or requisition. The collection timerecorded is the time of receipt in the lab. Performed By: #### 1 0070, 05039, 02003 ####[facility] [place] [address], [facility] ALT enzyme act/vol 21 U/L Normal 7-[address] [facility] Comment on above: Order Comment: No: D o not add to previous drawNo collection time noted on specimen or requisition. The collection timerecorded is the time of receipt in the lab. Performed By: #### 1 0070, 96083, 60951 ####[facility] [facility] [place] [address], [facility] AST enzyme act/vol 23 U/L Normal 13-[address] [facility] Comment on above: Order Comment: No: D o not add to previous drawNo collection time noted on specimen or requisition. The collection timerecorded is the time of receipt in the lab. Performed By: #### 1 0070, 67229, 07630 ####[facility]3000 [facility] [place] [address], [facility] Bilirubin mass conc 0.5 mg/dL Normal 0.3-1.[address] [facility] Comment on above: Order Comment: No: D o not add to previous drawNo collection time noted on specimen or requisition. The collection timerecorded is the time of receipt in the lab. Performed By: #### 1 0070, 03953, 81411 ####[place] [address] [facility] [place] [address], [facility] Bilirubin.direct mass conc 0.3 mg/dL High 0.0-0.[address] [facility] Comment on above: Order Comment: No: D o not add to previous drawNo collection time noted on specimen or requisition. The collection timerecorded is the time of receipt in the lab. Performed By: #### 1 0070, 18430, 78623 ####[facility] [facility] [place] [address], [facility] Protein mass conc 6.5 g/dL Normal 6.0-8.[address] [facility] Comment on above: Order Comment: No: D o not add to previous drawNo collection time noted on specimen or requisition. The collection timerecorded is the time of receipt in the lab. Performed By: #### 1 0070, 74850, 15820 ####[facility]3000 [facility] [place] [address], [facility] MAGNESIUM BLOODon 07-07-2018 Magnesium mass conc 1.6 mg/dL Low 1.9-2.[address] [facility] Comment on above: Order Comment: No: D o not add to previous drawNo collection time noted on specimen or requisition. The collection timerecorded is the time of receipt in the lab. Performed By: #### 1 0070, 04628, 37406 ####[facility]3000 [facility] [place] [address], [facility] PHOSPHORUS BLOODon 8 Phosphate mass conc 3.4 mg/dL Normal 2.5-5.[address] [facility] Comment on above: Order Comment: No: D o not add to previous drawNo collection time noted on specimen or requisition. The collection timerecorded is the time of receipt in the lab. Performed By: #### 1 0070, 06736, 12605 ####[facility]3000 [facility] [place] [address], [facility] POC GLUCOSE LABon 07-07-2018 Glucose mass conc 157 mg/dL High 70-[address] [facility] Comment on above: Performed By: #### 1 0070, 25232, 45475 ####[facility]3000 [facility] [place] [address], [facility] Glucose mass conc 196 mg/dL High 70-[address] [facility] Comment on above: Performed By: #### 1 0070, 44133, 14163 ####[facility] [facility] [place] [address], [facility] Glucose mass conc 190 mg/dL High 70-[address] [facility] Comment on above: Performed By: #### 1 0070, 49674, 83223 ####[facility]3000 [place] [address], [facility] Glucose mass conc 189 mg/dL High 70-[address] [facility] Comment on above: Performed By: #### 1 0070, 48057, 93432 ####[facility] [place] [address], [facility] BASIC METABOLIC PANELon 06-09 Calcium mass conc 9.3 mg/dL Normal 8.6-10.[address] [facility] Comment on above: Order Comment: No: D o not add to previous draw Performed By: #### 8 [id number] ####[facility] [place] [address], [facility] Chloride molar conc 100 mmol/L Normal 98-[address] [facility] Comment on above: Order Comment: No: D o not add to previous draw Performed By: #### 8 [id number] ####[facility] [place] [address], [facility] CO2 molar conc 25 mmol/L Normal 21-[address] [facility] Comment on above: Order Comment: No: D o not add to previous draw Performed By: #### 8 [id number] ####[facility] [place] [address], [facility] Creatinine mass conc 0.97 mg/dL Normal 0.60-1.[address] [facility] Comment on above: Order Comment: No: D o not add to previous draw Performed By: #### 8 [id number] ####[facility] [place] [address], [facility] GFR/1.73 sq M predicted among blacks MDRD vol rate/area (S/P/Bld) mL/min/{1.73_m2} Normal >[address] [facility] Comment on above: Order Comment: No: D o not add to previous draw Result Comment: Calc ulation may not be valid for patients over 70 years Performed By: #### 8 [id number] ####[facility] [address], [facility] GFR/1.73 sq M predicted among non-blacks MDRD vol rate/area (S/P/Bld) 56 ml/min/1.73sq m Abnormal >[address] [facility] Comment on above: Order Comment: No: D o not add to previous draw Result Comment: Calc ulation may not be valid for patients over 70 years Performed By: #### 8 [id number] ####[facility] [place] [address], [facility] Glucose mass conc 213 mg/dL High 70-[address] [facility] Comment on above: Order Comment: No: D o not add to previous draw Performed By: #### 8 [id number] ####[facility] [place] [address], [facility] Potassium molar conc 4.1 mmol/L Normal 3.5-5.[address] [facility] Comment on above: Order Comment: No: D o not add to previous draw Performed By: #### 8 [id number] ####[facility] [place] [address], [facility] Sodium molar conc 132 mmol/L Low 136-[address] [facility] Comment on above: Order Comment: No: D o not add to previous draw Performed By: #### 8 [id number] ####[facility] [place] [address], [facility] Urea nitrogen mass conc 19 mg/dL Normal 7-[address] [facility] Comment on above: Order Comment: No: D o not add to previous draw Performed By: #### 8 [id number] ####[facility] [place] [address], [facility] MAGNESIUM BLOODon 07-06-2018 Magnesium mass conc 1.8 mg/dL Low 1.9-2.[address] [facility] Comment on above: Order Comment: No: D o not add to previous drawNo collection time noted on specimen or requisition. The collection timerecorded is the time of receipt in the lab. Performed By: #### 1 0070, 00071, 35274 ####[facility] [address], [facility] PHOSPHORUS BLOODon 8 Phosphate mass conc 3.8 mg/dL Normal 2.5-5.[address] [facility] Comment on above: Order Comment: No: D o not add to previous drawNo collection time noted on specimen or requisition. The collection timerecorded is the time of receipt in the lab. Performed By: #### 1 0070, 57670, 81571 ####[facility] [facility] [place] [address], [facility] POC GLUCOSE LABon 07-06-2018 Glucose mass conc 217 mg/dL High 70-[address] [facility] Comment on above: Performed By: #### 1 0070, 64780, 63835 ####[facility] [facility] [place] [address], [facility] Glucose mass conc 197 mg/dL High 70-[address] [facility] Comment on above: Performed By: #### 1 0070, 75497, 90812 ####[facility] [facility] [place] [address], [facility] Glucose mass conc 160 mg/dL High 70-[address] [facility] Comment on above: Performed By: #### 8 [id number] ####[facility] [facility] [place] [address], [facility] TRIGLYCERIDES BLOODon 2017 Triglyceride mass conc 256 mg/dL High 40-[address] [facility] Comment on above: Order Comment: No: D o not add to previous draw Result Comment: TRIG LYCERIDE REFERENCE RANGE:20 YEARS AND OLDER CARDIOVASCULAR RISKLESS THAN 150 mg/dl LOW [id number] TO 199 mg/dl BORDERLINE [id number] mg/dl AND GREATER HIGH RISK Performed By: #### 8 [id number] ####[facility]3000 [facility] [place] [address], [facility] BASIC METABOLIC PANELon 06-09 Calcium mass conc 8.7 mg/dL Normal 8.6-10.[address] [facility] Comment on above: Order Comment: No: D o not add to previous draw Performed By: #### 8 [id number] ####[facility] [place] [address], [place] Chloride molar conc 105 mmol/L Normal 98-[address] [facility] Comment on above: Order Comment: No: D o not add to previous draw Performed By: #### 8 [id number] ####[facility] [place] [address], [place] CO2 molar conc 24 mmol/L Normal 21-[address] [facility] Comment on above: Order Comment: No: D o not add to previous draw Performed By: #### 8 [id number] ####[facility] [place] [address], [place] Creatinine mass conc 1.05 mg/dL Normal 0.60-1.[address] [facility] Comment on above: Order Comment: No: D o not add to previous draw Performed By: #### 8 [id number] ####[facility] [place] [address], [place] GFR/1.73 sq M predicted among blacks MDRD vol rate/area (S/P/Bld) mL/min/{1.73_m2} Normal >[address] [facility] Comment on above: Order Comment: No: D o not add to previous draw Result Comment: Calc ulation may not be valid for patients over 70 years Performed By: #### 8 [id number] ####[facility] [place] [address], [place] GFR/1.73 sq M predicted among non-blacks MDRD vol rate/area (S/P/Bld) 50 ml/min/1.73sq m Abnormal >[address] [facility] Comment on above: Order Comment: No: D o not add to previous draw Result Comment: Calc ulation may not be valid for patients over 70 years Performed By: #### 8 [id number] ####[facility] Glucose mass conc 185 mg/dL High 70-[address] [facility] Comment on above: Order Comment: No: D o not add to previous draw Performed By: #### 8 [id number] ####[facility] Potassium molar conc 3.8 mmol/L Normal 3.5-5.[address] [facility] Comment on above: Order Comment: No: D o not add to previous draw Performed By: #### 8 [id number] ####[facility] Sodium molar conc 138 mmol/L Normal 136-[address] [facility] Comment on above: Order Comment: No: D o not add to previous draw Performed By: #### 8 [id number] ####[facility] Urea nitrogen mass conc 18 mg/dL Normal 7-[address] [facility] Comment on above: Order Comment: No: D o not add to previous draw Performed By: #### 8 [id number] ####[facility] CBC W/DIFFon 07-05-2018 ABS BASOPHILS 0.0 10*3/uL Normal 0.0-0.[address] [facility] Comment on above: Order Comment: No: D o not add to previous draw Performed By: #### 8 [id number] ####[facility] ABS NEUTROPHILS 9.5 10*3/uL High 1.6-7.[address] [facility] Comment on above: Order Comment: No: D o not add to previous draw Performed By: #### 8 [id number] ####[facility] Basophils Auto #/vol (Bld) 0.0 % Normal 0.0-1.[address] [facility] Comment on above: Order Comment: No: D o not add to previous draw Performed By: #### 8 [id number] ####[facility] Eosinophils Auto #/vol (Bld) 0.2 10*3/uL Normal 0.0-0.[address] [facility] Comment on above: Order Comment: No: D o not add to previous draw Performed By: #### 8 [id number] ####[facility]3000 [facility].[address] Eosinophils/100 WBC Auto (Bld) 1.8 % Normal 0.0-6.[address] [facility] Comment on above: Order Comment: No: D o not add to previous draw Performed By: #### 8 [id number] ####[facility]3000 [facility].[address] Erythrocyte distribution width Auto Ratio (RBC) 13.8 % Normal 11.5-15.[address] [facility] Comment on above: Order Comment: No: D o not add to previous draw Performed By: #### 8 [id number] ####[facility] [facility].[address] Hematocrit Auto Volume Fraction (Bld) 28.7 % Low 36.0-45.[address] [facility] Comment on above: Order Comment: No: D o not add to previous draw Performed By: #### 8 [id number] ####[facility] [facility].[address] Hemoglobin mass conc (Bld) 8.9 g/dL Low 12.0-15.[address] [facility] Comment on above: Order Comment: No: D o not add to previous draw Performed By: #### 8 [id number] ####[facility] [address], [facility] Lymphocytes Auto #/vol (Bld) 1.3 10*3/uL Normal 1.2-4.[address] [facility] Comment on above: Order Comment: No: D o not add to previous draw Performed By: #### 8 [id number] ####[facility] Lymphocytes/100 WBC Auto (Bld) 10.9 % Low 20.0-45.[address] [facility] Comment on above: Order Comment: No: D o not add to previous draw Performed By: #### 8 [id number] ####[facility] MCH Auto Entitic mass (RBC) 30.5 pg Normal 27.0-33.[address] [facility] Comment on above: Order Comment: No: D o not add to previous draw Performed By: #### 8 [id number] ####[facility] MCHC Auto mass conc (RBC) 31.0 g/dL Low 32.0-35.[address] [facility] Comment on above: Order Comment: No: D o not add to previous draw Performed By: #### 8 [id number] ####[facility] MCV Auto Entitic volume (RBC) 98.3 fL High 82.0-98.[address] [facility] Comment on above: Order Comment: No: D o not add to previous draw Performed By: #### 8 [id number] ####[facility] METAMYELO 0.9 % High 0.0-0.[address] [facility] Comment on above: Order Comment: No: D o not add to previous draw Performed By: #### 8 [id number] ####[facility] Monocytes Auto #/vol (Bld) 0.8 10*3/uL Normal 0.1-1.[address] [facility] Comment on above: Order Comment: No: D o not add to previous draw Performed By: #### 8 [id number] ####[facility] [facility] [place] [address], [facility] MONOS 6.4 % Normal 5.0-12.[address] [facility] Comment on above: Order Comment: No: D o not add to previous draw Performed By: #### 8 [id number] ####[facility] [facility] [place] [address], [facility] MYELOS 0.9 % High .0-.[address] [facility] Comment on above: Order Comment: No: D o not add to previous draw Performed By: #### 8 [id number] ####[facility]3000 [facility].[address] Neutrophils/100 WBC Auto (Bld) 79.1 % High 40.0-72.[address] [facility] Comment on above: Order Comment: No: D o not add to previous draw Performed By: #### 8 [id number] ####[facility]3000 [facility].[address] Nucleated RBC/100 WBC Ratio (Bld) 0 % Normal 0-[address] [facility] Comment on above: Order Comment: No: D o not add to previous draw Performed By: #### 8 [id number] ####[facility] [facility] [place] [address], [facility] PLAT CNT 284 10*3/uL Normal 150-[address] [facility] Comment on above: Order Comment: No: D o not add to previous draw Performed By: #### 8 [id number] ####[facility] [facility] [place] [address], [facility] RBC Auto #/vol (Bld) 2.92 10*6/uL Low 3.80-5.[address] [facility] Comment on above: Order Comment: No: D o not add to previous draw Performed By: #### 8 [id number] ####[facility] WBC Auto #/vol (Bld) 12.05 10*3/uL High 4.00-10.[address] [facility] Comment on above: Order Comment: No: D o not add to previous draw Performed By: #### 8 [id number] ####[facility] MAGNESIUM BLOODon 07-05-2018 Magnesium mass conc 1.8 mg/dL Low 1.9-2.[address] [facility] Comment on above: Order Comment: No: D o not add to previous draw Performed By: #### 8 [id number] ####[facility] [facility].[address] PHOSPHORUS BLOODon 8 Phosphate mass conc 3.4 mg/dL Normal 2.5-5.[address] [facility] Comment on above: Order Comment: No: D o not add to previous draw Performed By: #### 8 [id number] ####[facility] [facility].[address] POC GLUCOSE LABon 07-05-2018 Glucose mass conc 162 mg/dL High 70-[address] [facility] Comment on above: Performed By: #### 8 [id number] ####[facility] [facility].[address] Glucose mass conc 198 mg/dL High 70-100 [facility] [facility] Comment on above: Performed By: #### 8 [id number] ####[facility] [facility] [address], [facility] TRIGLYCERIDES BLOODon 2017 Triglyceride mass conc 204 mg/dL High 40-[address] [facility] Comment on above: Order Comment: No: D o not add to previous draw Result Comment: TRIG LYCERIDE REFERENCE RANGE:20 YEARS AND OLDER CARDIOVASCULAR RISKLESS THAN 150 mg/dl LOW [id number] TO 199 mg/dl BORDERLINE [id number] mg/dl AND GREATER HIGH RISK Performed By: #### 8 [id number] ####[facility] [place] [address], [facility] BASIC METABOLIC PANELon 06-09 Calcium mass conc 8.8 mg/dL Normal 8.6-10.[address] [facility] Comment on above: Order Comment: No: D o not add to previous draw Performed By: #### 8 [id number] ####[facility] [place] [address], [facility] Chloride molar conc 105 mmol/L Normal 98-[address] [facility] Comment on above: Order Comment: No: D o not add to previous draw Performed By: #### 8 [id number] ####[facility] [place] [address], [facility] CO2 molar conc 22 mmol/L Normal 21-[address] [facility] Comment on above: Order Comment: No: D o not add to previous draw Performed By: #### 8 [id number] ####[facility] [place] [address], [facility] Creatinine mass conc 1.07 mg/dL Normal 0.60-1.[address] [facility] Comment on above: Order Comment: No: D o not add to previous draw Performed By: #### 8 [id number] ####[facility] [place] [address], [place] GFR/1.73 sq M predicted among blacks MDRD vol rate/area (S/P/Bld) mL/min/{1.73_m2} Normal >[address] [facility] Comment on above: Order Comment: No: D o not add to previous draw Result Comment: Calc ulation may not be valid for patients over 70 years Performed By: #### [id number] ####[facility] [id number], [place] GFR/1.73 sq M predicted among non-blacks MDRD vol rate/area (S/P/Bld) 50 ml/min/1.73sq m Abnormal >[address] [facility] Comment on above: Order Comment: No: D o not add to previous draw Result Comment: Calc ulation may not be valid for patients over 70 years Performed By: #### 8 [id number] ####[facility] [place] [address], [facility] Glucose mass conc 188 mg/dL High 70-[address] [facility] Comment on above: Order Comment: No: D o not add to previous draw Performed By: #### 8 [id number] ####[facility] [facility] [place] [address], [facility] Potassium molar conc 3.7 mmol/L Normal 3.5-5.[address] [facility] Comment on above: Order Comment: No: D o not add to previous draw Performed By: #### 8 [id number] ####[facility] [place] [address], [facility] Sodium molar conc 136 mmol/L Normal 136-[address] [facility] Comment on above: Order Comment: No: D o not add to previous draw Performed By: #### 8 [id number] ####[facility] [place] [address], [facility] Urea nitrogen mass conc 14 mg/dL Normal 7-[address] [facility] Comment on above: Order Comment: No: D o not add to previous draw Performed By: #### 8 [id number] ####[facility] [place] [address], [facility] CBC W/DIFFon 07-04-2018 ABS BASOPHILS 0.0 10*3/uL Normal 0.0-0.[address] [facility] Comment on above: Performed By: #### 8 [id number] ####[facility] [place] [address], [facility] ABS NEUTROPHILS 9.7 10*3/uL High 1.6-7.[address] [facility] Comment on above: Performed By: #### 8 [id number] ####[facility] [place] [address], [facility] Basophils Auto #/vol (Bld) 0.0 % Normal 0.0-1.[address] [facility] Comment on above: Performed By: #### 8 [id number] ####[facility] [place] [address], [facility] Eosinophils Auto #/vol (Bld) 0.2 10*3/uL Normal 0.0-0.[address] [facility] Comment on above: Performed By: #### 8 [id number] ####[facility] Eosinophils/100 WBC Auto (Bld) 1.8 % Normal 0.0-6.[address] [facility] Comment on above: Performed By: #### 8 [id number] ####[facility] Erythrocyte distribution width Auto Ratio (RBC) 13.7 % Normal 11.5-15.[address] [facility] Comment on above: Performed By: #### 8 [id number] ####[facility] GIANT PLATELETS Present Normal [facility] Comment on above: Performed By: #### 8 [id number] ####[facility] Hematocrit Auto Volume Fraction (Bld) 31.4 % Low 36.0-45.[address] [facility] Comment on above: Performed By: #### 8 [id number] ####[facility] Hemoglobin mass conc (Bld) 10.0 g/dL Low 12.0-15.[address] [facility] Comment on above: Performed By: #### 8 [id number] ####[facility] [facility].[address] Lymphocytes Auto #/vol (Bld) 1.5 10*3/uL Normal 1.2-4.[address] [facility] Comment on above: Performed By: #### 8 [id number] ####[facility] [facility].[address] Lymphocytes/100 WBC Auto (Bld) 11.8 % Low 20.0-45.[address] [facility] Comment on above: Performed By: #### 8 [id number] ####[facility] MCH Auto Entitic mass (RBC) 30.8 pg Normal 27.0-33.[address] [facility] Comment on above: Performed By: #### 8 [id number] ####[facility] MCHC Auto mass conc (RBC) 31.8 g/dL Low 32.0-35.[address] [facility] Comment on above: Performed By: #### 8 [id number] ####[facility] MCV Auto Entitic volume (RBC) 96.6 fL Normal 82.0-98.[address] [facility] Comment on above: Performed By: #### 8 [id number] ####[facility] METAMYELO 0.9 % High 0.0-0.[address] [facility] Comment on above: Performed By: #### 8 [id number] ####[facility] Monocytes Auto #/vol (Bld) 1.0 10*3/uL Normal 0.1-1.[address] [facility] Comment on above: Performed By: #### 8 [id number] ####[facility] [place] [address], [facility] MONOS 8.2 % Normal 5.0-12.[address] [facility] Comment on above: Performed By: #### 8 [id number] ####[facility] [place] [address], [facility] Neutrophils/100 WBC Auto (Bld) 77.3 % High 40.0-72.[address] [facility] Comment on above: Performed By: #### 8 [id number] ####[facility] [facility].[address] NRBC SCAN Present Normal [facility] Comment on above: Performed By: #### 8 [id number] ####[facility] Nucleated RBC/100 WBC Ratio (Bld) 0 % Normal 0-[address] [facility] Comment on above: Performed By: #### 8 [id number] ####[facility] [facility] [place] [address], [facility] PLAT CNT 300 10*3/uL Normal 150-[address] [facility] Comment on above: Performed By: #### 8 [id number] ####[facility] RBC Auto #/vol (Bld) 3.25 10*6/uL Low 3.80-5.[address] [facility] Comment on above: Performed By: #### 8 [id number] ####[facility] [place] [address], [facility] WBC Auto #/vol (Bld) 12.52 10*3/uL High 4.00-10.[address] [facility] Comment on above: Performed By: #### 8 [id number] ####[facility] MAGNESIUM BLOODon 07-04-2018 Magnesium mass conc 1.9 mg/dL Normal 1.9-2.[address] [facility] Comment on above: Order Comment: No: D o not add to previous draw Performed By: #### 8 [id number] ####[facility] [place] [address], [facility] PHOSPHORUS BLOODon 8 Phosphate mass conc 2.8 mg/dL Normal 2.5-5.[address] [facility] Comment on above: Order Comment: No: D o not add to previous draw Performed By: #### 8 [id number] ####[facility] [place] [address], [facility] POC GLUCOSE LABon 07-04-2018 Glucose mass conc 161 mg/dL High 70-[address] [facility] Comment on above: Performed By: #### 8 [id number] ####[facility] [place] [address], [facility] Glucose mass conc 169 mg/dL High 70-[address] [facility] Comment on above: Performed By: #### 8 [id number] ####[facility] [place] [address], [facility] Glucose mass conc 222 mg/dL High 70-[address] [facility] Comment on above: Performed By: #### 8 [id number] ####[facility] [place] [address], [facility] Glucose mass conc 186 mg/dL High 70-[address] [facility] Comment on above: Performed By: #### 8 [id number] ####[facility] [place] [address], [facility] Glucose mass conc 153 mg/dL High 70-[address] [facility] Comment on above: Performed By: #### 8 [id number] ####[facility] [place] [address], [facility] BASIC METABOLIC PANELon 06-09 Calcium mass conc 8.1 mg/dL Low 8.6-10.[address] [facility] Comment on above: Order Comment: No: D o not add to previous draw Performed By: #### 8 [id number] ####[facility] [place] [address], [place] Chloride molar conc 104 mmol/L Normal 98-[address] [facility] Comment on above: Order Comment: No: D o not add to previous draw Performed By: #### 8 [id number] ####[facility] [place] [address], [place] CO2 molar conc 21 mmol/L Normal 21-[address] [facility] Comment on above: Order Comment: No: D o not add to previous draw Performed By: #### 8 [id number] ####[facility] [place] [address], [place] Creatinine mass conc 1.12 mg/dL Normal 0.60-1.[address] [facility] Comment on above: Order Comment: No: D o not add to previous draw Performed By: #### 8 [id number] ####[facility] [place] [address], [place] GFR/1.73 sq M predicted among blacks MDRD vol rate/area (S/P/Bld) 57 ml/min/1.73sq m Abnormal >[address] [facility] Comment on above: Order Comment: No: D o not add to previous draw Result Comment: Calc ulation may not be valid for patients over 70 years Performed By: #### 8 [id number] ####[facility] [place] [address], [place] GFR/1.73 sq M predicted among non-blacks MDRD vol rate/area (S/P/Bld) 47 ml/min/1.73sq m Abnormal >[address] [facility] Comment on above: Order Comment: No: D o not add to previous draw Result Comment: Calc ulation may not be valid for patients over 70 years Performed By: #### 8 [id number] ####[facility] [place] [address], [facility] Glucose mass conc 246 mg/dL High 70-[address] [facility] Comment on above: Order Comment: No: D o not add to previous draw Performed By: #### 8 [id number] ####[facility] [place] [address], [facility] Potassium molar conc 4.4 mmol/L Normal 3.5-5.[address] [facility] Comment on above: Order Comment: No: D o not add to previous draw Performed By: #### 8 [id number] ####[facility] [place] [address], [facility] Sodium molar conc 132 mmol/L Low 136-[address] [facility] Comment on above: Order Comment: No: D o not add to previous draw Performed By: #### 8 [id number] ####[facility] [place] [address], [facility] Urea nitrogen mass conc 10 mg/dL Normal 7-[address] [facility] Comment on above: Order Comment: No: D o not add to previous draw Performed By: #### 8 [id number] ####[facility] [facility] [place] [id number] [place] [address] CBC COMPLETE BLOOD COUNTon 0 07-03-2018 Erythrocyte distribution width Auto Ratio (RBC) 13.7 % Normal 11.5-15.[address] [facility] Comment on above: Order Comment: No: D o not add to previous draw Performed By: #### 8 [id number] ####[facility] [place] [address], [facility] Hematocrit Auto Volume Fraction (Bld) 36.3 % Normal 36.0-45.[address] [facility] Comment on above: Order Comment: No: D o not add to previous draw Performed By: #### 8 [id number] ####[facility] Hemoglobin mass conc (Bld) 11.3 g/dL Low 12.0-15.[address] [facility] Comment on above: Order Comment: No: D o not add to previous draw Performed By: #### 8 [id number] ####[facility] [facility].[address] MCH Auto Entitic mass (RBC) 30.5 pg Normal 27.0-33.[address] [facility] Comment on above: Order Comment: No: D o not add to previous draw Performed By: #### 8 [id number] ####[facility] MCHC Auto mass conc (RBC) 31.1 g/dL Low 32.0-35.[address] [facility] Comment on above: Order Comment: No: D o not add to previous draw Performed By: #### 8 [id number] ####[facility] MCV Auto Entitic volume (RBC) 97.8 fL Normal 82.0-98.[address] [facility] Comment on above: Order Comment: No: D o not add to previous draw Performed By: #### 8 [id number] ####[facility] Nucleated RBC/100 WBC Ratio (Bld) 0 % Normal 0-[address] [facility] Comment on above: Order Comment: No: D o not add to previous draw Performed By: #### 8 [id number] ####[facility] [place] [address] PLAT CNT 313 10*3/uL Normal 150-[address] [facility] Comment on above: Order Comment: No: D o not add to previous draw Performed By: #### 8 [id number] ####[facility] [place] [address], [place] RBC Auto #/vol (Bld) 3.71 10*6/uL Low 3.80-5.[address] [facility] Comment on above: Order Comment: No: D o not add to previous draw Performed By: #### 8 [id number] ####[facility] [place] [address], [facility] WBC Auto #/vol (Bld) 9.64 10*3/uL Normal 4.00-10.[address] [facility] Comment on above: Order Comment: No: D o not add to previous draw Performed By: #### 8 [id number] ####[facility] [place] [address], [facility] LIVER BATTERYon 07-03-2018 Albumin mass conc 2.8 g/dL Low 3.5-5.[address] [facility] Comment on above: Order Comment: No: D o not add to previous draw Performed By: #### 8 [id number] ####[facility] [place] [address], [facility] ALKALINE PHOSPH 87 IU/L Normal 34-[address] [facility] Comment on above: Order Comment: No: D o not add to previous draw Performed By: #### 8 [id number] ####[facility] [place] [address], [facility] ALT enzyme act/vol 17 U/L Normal 7-[address] [facility] Comment on above: Order Comment: No: D o not add to previous draw Performed By: #### 8 [id number] ####[facility] [place] [address], [facility] AST enzyme act/vol 17 U/L Normal 13-[address] [facility] Comment on above: Order Comment: No: D o not add to previous draw Performed By: #### 8 [id number] ####[facility] [place] [address], [facility] Bilirubin mass conc 1.0 mg/dL Normal 0.3-1.[address] [facility] Comment on above: Order Comment: No: D o not add to previous draw Performed By: #### 8 [id number] ####[facility] [facility] [place] [address], [facility] Bilirubin.direct mass conc 0.6 mg/dL High 0.0-0.[address] [facility] Comment on above: Order Comment: No: D o not add to previous draw Performed By: #### 8 [id number] ####[facility] [facility].[address] Protein mass conc 5.6 g/dL Low 6.0-8.[address] [facility] Comment on above: Order Comment: No: D o not add to previous draw Performed By: #### 8 [id number] ####[facility] [facility].[address] MAGNESIUM BLOODon 07-03-2018 Magnesium mass conc 2.3 mg/dL Normal 1.9-2.[address] [facility] Comment on above: Order Comment: No: D o not add to previous draw Performed By: #### 8 [id number] ####[facility] [facility].[address] Operative Reporton 8 Operative Report MR#: [id number] [facility] Name[facility] Vidhya Giordano Room #: [id number] Discharge Date: Birthdate: 1940 OPERATIVE REPORTDATE OF SURGERY: 07/02/2018SURGEON: Meg Abebe M.D.PREOPERATIVE DIAGNOSIS: Status post repair of enterocutaneous fistula andanastomosis leak.POSTOPERATIVE DIAGNOSIS: Status post repair of enterocutaneous fistula andanastomosis leak.OPERATION PERFORMED: Exploratory laparotomy, extensive lysis of adhesionmore than 2 hours, small-bowel resection with functional vft-ju-eknevwtcroyzdu and repair of a transverse colon iatrogenic enterotomy.ANESTHESIA: General endotracheal anesthesia.INDICATION: The patient is 78 years old white female, 6 days status postrepair of enterocutaneous fistula. She developed small bowel anastomosisleak, exploratory laparotomy, possible bowel resection was offered to thepatient. Informed consent was obtained.SURGERY: The patient was brought to the operating room, laid on theoperating table in supine position. General anesthesia was initiated.Abdomen was prepped and draped in the usual sterile fashion. Aftercompletion of time-out, the incision staple was reopened and zpamidpnoigersfmv-ac-hcrno suture was removed. The fascia was opened. Carefullyinspection, a localized anastomosis leak was noticed on the enterocutaneousfistular repair site. The decision was made to perform a small bowelresection for theenterocutaneous fistula leak. The incision was extended superiorly forbetter exposure. However, this extension of the opening fascia is causingtransverse colon enterotomy. Then, the extensive lysis of adhesion wasperformed. The small bowel was fully mobilized from the ligament of Treitz ileocecal valve. It is worse to note that I was told that shehad a right hemicolectomy. However, I noticed the patient had an intactright colon along with the ileocecal valve. The segment of small bowelresection was performed by blue load OLIVE stapler and the mesentery of thesmall bowel was divided with the LigaSure. Then, a functional abj-dp-xwcsurktyeivta was performed by a blue load 6 cm OLIVE stapler. The staplerinsertion site was closed by 3-0 Vicryl running canal suture, then 0 silkinterrupted Lembert suture. The mesenteric defect was also closed byinterrupted 3-0 silk suture. Then, the attention was turned to theenterotomy on the transverse colon. The transverse colon was fullymobilized and the edge of the bowel wall was cleaned up. Then, theenterotomy was closed transversely with a 3-0 Vicryl running canal suture,then interrupted 3-0 silk Lembert suture. Of note, omental patch was usedto cover the suture line. Then, the peritoneal cavity was irrigated withcopious normal saline. A 10 TREVOR was placed, which was introduced all theabdomen through a stab wound on the right lower quadrant. The Seprafilmwas placed into peritoneal cavity. The midline fascia was closed by the2-0 loop Maxon running suture and 1-0 Vicryl interrupted suture. Skin waspartially stapled, then tacked by wet Kerlix. Operation was completedwithout complication.I was present during the entire operation.Electronically Signed by:Meg Abebe M.D. 07/07/2018 12:44 P Meg Abebe M.D.Date Dict: 07/02/2018/07:16 P/Meg Abebe M.D.Date Trans: 07/02/2018 10:15 [id number] c: Kalin Santos D.O. [address] [place] [id number] Normal [facility] PHOSPHORUS BLOODon 8 Phosphate mass conc 2.3 mg/dL Low 2.5-5.[address] [facility] Comment on above: Order Comment: No: D o not add to previous draw Performed By: #### 8 [id number] ####[facility] [facility] [address], [place] POC GLUCOSE LABon 07-03-2018 Glucose mass conc 169 mg/dL High 70-[address] [facility] Comment on above: Performed By: #### 8 [id number] ####[facility] [facility] [place] [address], [place] Glucose mass conc 141 mg/dL High 70-[address] [facility] Comment on above: Performed By: #### 8 [id number] ####[facility] [place] [address], [place] Glucose mass conc 221 mg/dL High 70-[address] [facility] Comment on above: Performed By: #### 8 [id number] ####[facility] [place] [address], [place] *BLOOD CULTUREon 07-02-2018 Bacteria identified in Blood by Culture Clinical Report: (D) Specimen: BLOOD CULTURE Collected: 07/02/2018 21:59 Status: Final Last Updated: 07/08/2018 07:42 CULT RES (Final) No Growth Day [address] [facility] Comment on above: Performed By: #### 8 [id number] ####[facility] [place] [address], [facility] Bacteria identified in Blood by Culture Clinical Report: (D) Specimen: BLOOD CULTURE Collected: 07/02/2018 21:50 Status: Final Last Updated: 07/08/2018 07:42 (1) left hand CULT RES (Final) No Growth Day [address] [facility] Comment on above: Order Comment: left hand Performed By: #### 8 [id number] ####[facility] [facility] [place] [address], [facility] BASIC METABOLIC PANELon 06-09 Calcium mass conc 8.2 mg/dL Low 8.6-10.[address] [facility] Comment on above: Order Comment: No: D o not add to previous draw Performed By: #### 5 6101, 15928 ####[facility] [place] [address], [facility] Chloride molar conc 103 mmol/L Normal 98-[address] [facility] Comment on above: Order Comment: No: D o not add to previous draw Performed By: #### 5 610, 05631 ####[facility] [place] [address], [place] CO2 molar conc 20 mmol/L Low 21-[address] [facility] Comment on above: Order Comment: No: D o not add to previous draw Performed By: #### 5 6101, 89321 ####[facility] [place] [address], [place] Creatinine mass conc 1.09 mg/dL Normal 0.60-1.[address] [facility] Comment on above: Order Comment: No: D o not add to previous draw Performed By: #### 5 610, 60720 ####[facility] [place] [address], [facility] GFR/1.73 sq M predicted among blacks MDRD vol rate/area (S/P/Bld) 59 ml/min/1.73sq m Abnormal >[address] [facility] Comment on above: Order Comment: No: D o not add to previous draw Result Comment: Calc ulation may not be valid for patients over 70 years Performed By: #### 5 6101, 02823 ####[facility] [place] [address], [facility] GFR/1.73 sq M predicted among non-blacks MDRD vol rate/area (S/P/Bld) 48 ml/min/1.73sq m Abnormal >[address] [facility] Comment on above: Order Comment: No: D o not add to previous draw Result Comment: Calc ulation may not be valid for patients over 70 years Performed By: #### 5 610, 32219 ####[facility] [facility] [place] [address], [facility] Glucose mass conc 272 mg/dL High 70-[address] [facility] Comment on above: Order Comment: No: D o not add to previous draw Performed By: #### 5 6101, 50316 ####[facility] [facility] [place] [address], [facility] Potassium molar conc 3.6 mmol/L Normal 3.5-5.[address] [facility] Comment on above: Order Comment: No: D o not add to previous draw Performed By: #### 5 6101, 58101 ####[facility] [place] [address], [place] Sodium molar conc 132 mmol/L Low 136-[address] [facility] Comment on above: Order Comment: No: D o not add to previous draw Performed By: #### 5 6101, 88014 ####[facility] [place] [address], [facility] Urea nitrogen mass conc 10 mg/dL Normal 7-[address] [facility] Comment on above: Order Comment: No: D o not add to previous draw Performed By: #### 5 610, 05798 ####[facility] [id number], [facility] Calcium mass conc 8.4 mg/dL Low 8.6-10.[address] [facility] Comment on above: Order Comment: No: D o not add to previous draw Performed By: #### 5 610, 34056 ####[facility] [place] [address], [place] Chloride molar conc 106 mmol/L Normal 98-[address] [facility] Comment on above: Order Comment: No: D o not add to previous draw Performed By: #### 5 610, 97089 ####[facility] [place] [address], [place] CO2 molar conc 24 mmol/L Normal 21-[address] [facility] Comment on above: Order Comment: No: D o not add to previous draw Performed By: #### 5 610, 25605 ####[facility] [place] [address], [facility] Creatinine mass conc 1.12 mg/dL Normal 0.60-1.[address] [facility] Comment on above: Order Comment: No: D o not add to previous draw Performed By: #### 5 610, 48964 ####[facility] [place] [address], [place] GFR/1.73 sq M predicted among blacks MDRD vol rate/area (S/P/Bld) 57 ml/min/1.73sq m Abnormal >[address] [facility] Comment on above: Order Comment: No: D o not add to previous draw Result Comment: Calc ulation may not be valid for patients over 70 years Performed By: #### 5 610, 44154 ####[facility] [place] [address], [place] GFR/1.73 sq M predicted among non-blacks MDRD vol rate/area (S/P/Bld) 47 ml/min/1.73sq m Abnormal >[address] [facility] Comment on above: Order Comment: No: D o not add to previous draw Result Comment: Calc ulation may not be valid for patients over 70 years Performed By: #### 5 6101, 02536 ####[facility] [place] [address], [facility] Glucose mass conc 149 mg/dL High 70-[address] [facility] Comment on above: Order Comment: No: D o not add to previous draw Performed By: #### 5 6101, 34612 ####[facility] [place] [address], [facility] Potassium molar conc 3.8 mmol/L Normal 3.5-5.[address] [facility] Comment on above: Order Comment: No: D o not add to previous draw Performed By: #### 5 610, 15209 ####[facility] [place] [address], [facility] Sodium molar conc 136 mmol/L Normal 136-[address] [facility] Comment on above: Order Comment: No: D o not add to previous draw Performed By: #### 5 6101, 72511 ####[facility] [place] [address], [facility] Urea nitrogen mass conc 12 mg/dL Normal 7-[address] [facility] Comment on above: Order Comment: No: D o not add to previous draw Performed By: #### 5 6101, 60008 ####[facility] [place] [address], [facility] CBC COMPLETE BLOOD COUNTon 0 - Erythrocyte distribution width Auto Ratio (RBC) 13.8 % Normal 11.5-15.[address] [facility] Comment on above: Order Comment: No: D o not add to previous [id number]- PATIENT NOT IN ROOM; STILL IN O.R. SHOULD BE RN DRAW, PER RN-TECH LM Performed By: #### 5 610, 42689 ####[facility] Hematocrit Auto Volume Fraction (Bld) 36.9 % Normal 36.0-45.[address] [facility] Comment on above: Order Comment: No: D o not add to previous [id number]- PATIENT NOT IN ROOM; STILL IN O.R. SHOULD BE RN DRAW, PER RN-TECH LM Performed By: #### 5 610, 69888 ####[facility] Hemoglobin mass conc (Bld) 11.6 g/dL Low 12.0-15.[address] [facility] Comment on above: Order Comment: No: D o not add to previous [id number]- PATIENT NOT IN ROOM; STILL IN O.R. SHOULD BE RN DRAW, PER RN-TECH LM Performed By: #### 5 610, 00858 ####[facility] [place] [address] MCH Auto Entitic mass (RBC) 31.1 pg Normal 27.0-33.[address] [facility] Comment on above: Order Comment: No: D o not add to previous [id number]- PATIENT NOT IN ROOM; STILL IN O.R. SHOULD BE RN DRAW, PER RN-TECH LM Performed By: #### 5 610, 23718 ####[facility] MCHC Auto mass conc (RBC) 31.4 g/dL Low 32.0-35.[address] [facility] Comment on above: Order Comment: No: D o not add to previous [id number]- PATIENT NOT IN ROOM; STILL IN O.R. SHOULD BE RN DRAW, PER RN-TECH LM Performed By: #### 5 610, 34027 ####[facility] [place] [address] MCV Auto Entitic volume (RBC) 98.9 fL High 82.0-98.[address] [facility] Comment on above: Order Comment: No: D o not add to previous [id number]- PATIENT NOT IN ROOM; STILL IN O.R. SHOULD BE RN DRAW, PER RN-TECH LM Performed By: #### 5 610, 29285 ####[facility] Nucleated RBC/100 WBC Ratio (Bld) 0 % Normal 0-[address] [facility] Comment on above: Order Comment: No: D o not add to previous [id number]- PATIENT NOT IN ROOM; STILL IN O.R. SHOULD BE RN DRAW, PER RN-TECH LM Performed By: #### 5 6101, 35234 ####[facility] PLAT CNT 165 10*3/uL Normal 150-[address] [facility] Comment on above: Order Comment: No: D o not add to previous [id number]- PATIENT NOT IN ROOM; STILL IN O.R. SHOULD BE RN DRAW, PER RN-TECH LM Performed By: #### 5 610, 18219 ####[facility] RBC Auto #/vol (Bld) 3.73 10*6/uL Low 3.80-5.[address] [facility] Comment on above: Order Comment: No: D o not add to previous [id number]- PATIENT NOT IN ROOM; STILL IN O.R. SHOULD BE RN DRAW, PER RN-TECH LM Performed By: #### 5 610, 43014 ####[facility] [facility].[address] WBC Auto #/vol (Bld) 9.50 10*3/uL Normal 4.00-10.[address] [facility] Comment on above: Order Comment: No: D o not add to previous [id number]- PATIENT NOT IN ROOM; STILL IN O.R. SHOULD BE RN DRAW, PER RN-TECH LM Performed By: #### 5 610, 51695 ####[facility] [facility].[address] Erythrocyte distribution width Auto Ratio (RBC) 13.9 % Normal 11.5-15.[address] [facility] Comment on above: Order Comment: No: D o not add to previous draw Performed By: #### 5 6100, 00606 ####[facility] [facility].[address] Hematocrit Auto Volume Fraction (Bld) 34.4 % Low 36.0-45.[address] [facility] Comment on above: Order Comment: No: D o not add to previous draw Performed By: #### 5 6100, 92646 ####[place] [address] [address] Hemoglobin mass conc (Bld) 10.8 g/dL Low 12.0-15.[address] [facility] Comment on above: Order Comment: No: D o not add to previous draw Performed By: #### 5 6100, 82807 ####[facility] MCH Auto Entitic mass (RBC) 31.1 pg Normal 27.0-33.[address] [facility] Comment on above: Order Comment: No: D o not add to previous draw Performed By: #### 5 6100, 24502 ####[facility] [facility].[address] MCHC Auto mass conc (RBC) 31.4 g/dL Low 32.0-35.[address] [facility] Comment on above: Order Comment: No: D o not add to previous draw Performed By: #### 5 610, 25426 ####[facility] MCV Auto Entitic volume (RBC) 99.1 fL High 82.0-98.[address] [facility] Comment on above: Order Comment: No: D o not add to previous draw Performed By: #### 5 610, 33905 ####[facility] Nucleated RBC/100 WBC Ratio (Bld) 0 % Normal 0-[address] [facility] Comment on above: Order Comment: No: D o not add to previous draw Performed By: #### 5 610, 70388 ####[facility] [place] [address], [facility] PLAT CNT 232 10*3/uL Normal 150-[address] [facility] Comment on above: Order Comment: No: D o not add to previous draw Performed By: #### 5 610, 43395 ####[place] [address] RBC Auto #/vol (Bld) 3.47 10*6/uL Low 3.80-5.[address] [facility] Comment on above: Order Comment: No: D o not add to previous draw Performed By: #### 5 610, 90076 ####[facility] [facility].[address] WBC Auto #/vol (Bld) 9.09 10*3/uL Normal 4.00-10.[address] [facility] Comment on above: Order Comment: No: D o not add to previous draw Performed By: #### 5 6101, 06543 ####[facility] MAGNESIUM BLOODon 07-02-2018 Magnesium mass conc 1.6 mg/dL Low 1.9-2.[address] [facility] Comment on above: Order Comment: No: D o not add to previous draw Performed By: #### 5 6101, 81315 ####[place] [address] Operative Reporton 8 Operative Report MR#: [id number] [facility] Name[facility] Vidhya Giordano Room #: [id number] Discharge Date: Birthdate: 1940 OPERATIVE REPORTDATE OF SURGERY: 06/27/2018SURGEON: Meg Abebe M.D.PREOPERATIVE DIAGNOSIS: Enterocutaneous fistula.POSTOPERATIVE DIAGNOSIS:Enterocutaneous fistula.OPERATION PERFORMED: Exploratory laparotomy, repair of enterocutaneousfistula.ANE STHESIA: General endotracheal anesthesia.INDICATION: The patient is 78 years old white female with previous ventralhernia repair. 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 Informed consent was obtained. The patient understands the risksof this surgery include, but not limited to infection, bleeding,anastomosis leak, cardiac attack or stroke. The patient expressedunderstanding and agreed to proceed.SURGERY: The patient was brought to the operating room, laid on theoperating table in supine position. General anesthesia was initiated. Thepatient's abdomen was prepped in the usual sterile fashion. Aftercompletion of time-out, an elliptical incision was made around theenterocutaneous fistula inferior to umbilicus. The dissection down to thesubcutaneous tissue with electrocautery, then reached the fascia. Thefascia was entered by the electrocautery. Care was taken to avoid anyenterotomy. I noticed that polypropylene mesh underneath the fascia andthe erode into the small bowel causing the fistula rise. The small bowelwas fully mobilized by sharp dissection and the infected and eroded meshwas from the small bowel. The fistular tract along with the meshwas sent for permanent pathology. After sufficient lysis of adhesion, Inoticed that the fistula on the small bowel is only 1 cm in diameter, whichwas closed by interrupted full-thickness 3-0 silk suture and interrupted2-0 silk Lembert suture. After this was achieved, the small bowel wasreturned back to the peritoneal cavity. The fascia wasclosed by interrupted 0 PDS [id number] suture. The skin was closed byskin jd. The Prevena wound VAC was applied. Operation was completedwithout complication.I was present during the entire operation.Electronically Signed by:Meg Abebe M.D. 07/07/2018 12:44 P Meg Abebe M.D.Date Dict: 07/02/2018/07:09 Chandni/Meg Abebe M.D.Date Trans: 07/02/2018 09:51 P/[id number] c: Kalin Santos D.O. [address] [place] [id number] Normal [facility] PHOSPHORUS BLOODon 8 Phosphate mass conc 1.9 mg/dL Low 2.5-5.[address] [facility] Comment on above: Order Comment: No: D o not add to previous [id number]- CHANGED TO LAB DRAW Performed By: #### 8 5499 ####[facility] [place] [address], [place] POC GLUCOSE LABon 07-02-2018 Glucose mass conc 246 mg/dL High 70-[address] [facility] Comment on above: Performed By: #### 5 6101, 09486 ####[facility] [place] [address], [place] Glucose mass conc 145 mg/dL High 70-[address] [facility] Comment on above: Performed By: #### 5 6101, 74818 ####[facility] [place] [address], [place] Glucose mass conc 140 mg/dL High 70-[address] [facility] Comment on above: Performed By: #### 5 6101, 99878 ####[facility] [place] [address], [place] Glucose mass conc 163 mg/dL High 70-[address] [facility] Comment on above: Performed By: #### 5 6101, 03555 ####[facility] [place] [address], [place] TYPE AND SCREENon 07-02-2018 ABO INTERPRETATION A Normal [facility] Comment on above: Performed By: #### 5 610, 16504 ####[facility] [place] [address], [facility] RH INTERPRETATION Positive Normal [facility] Comment on above: Performed By: #### 5 610, 52759 ####[facility] [place] [address], [facility] POC GLUCOSE LABon 07-01-2018 Glucose mass conc 137 mg/dL High 70-[address] [facility] Comment on above: Performed By: #### 5 610, 88277 ####[facility] [place] [address], [facility] Glucose mass conc 178 mg/dL High 70-[address] [facility] Comment on above: Performed By: #### 5 610, 27475 ####[facility] [place] [address], [facility] Glucose mass conc 119 mg/dL High 70-[address] [facility] Comment on above: Performed By: #### 5 610, 99255 ####[facility] [place] [address], [facility] Glucose mass conc 95 mg/dL Normal 70-[address] [facility] Comment on above: Performed By: #### 5 610, 40540 ####[facility] [place] [address], [facility] BASIC METABOLIC PANELon 06-09 Calcium mass conc 8.3 mg/dL Low 8.6-10.[address] [facility] Comment on above: Order Comment: No: D o not add to previous draw Performed By: #### 5 610, 45172 ####[facility] [place] [address], [facility] Chloride molar conc 110 mmol/L High 98-[address] [facility] Comment on above: Order Comment: No: D o not add to previous draw Performed By: #### 5 6101, 34537 ####[facility] [place] [address], [facility] CO2 molar conc 23 mmol/L Normal 21-[address] [facility] Comment on above: Order Comment: No: D o not add to previous draw Performed By: #### 5 610, 18993 ####[facility] [place] [address], [facility] Creatinine mass conc 1.08 mg/dL Normal 0.60-1.[address] [facility] Comment on above: Order Comment: No: D o not add to previous draw Performed By: #### 5 610, 09711 ####[facility] [place] [address], [facility] GFR/1.73 sq M predicted among blacks MDRD vol rate/area (S/P/Bld) 59 ml/min/1.73sq m Abnormal >[address] [facility] Comment on above: Order Comment: No: D o not add to previous draw Result Comment: Calc ulation may not be valid for patients over 70 years Performed By: #### 5 610, 91032 ####[facility] [facility] [place] [address], [facility] GFR/1.73 sq M predicted among non-blacks MDRD vol rate/area (S/P/Bld) 49 ml/min/1.73sq m Abnormal >[address] [facility] Comment on above: Order Comment: No: D o not add to previous draw Result Comment: Calc ulation may not be valid for patients over 70 years Performed By: #### 5 6101, 89226 ####[facility] [place] [address], [facility] Glucose mass conc 148 mg/dL High 70-[address] [facility] Comment on above: Order Comment: No: D o not add to previous draw Performed By: #### 5 610, 36972 ####[facility] Potassium molar conc 3.9 mmol/L Normal 3.5-5.[address] [facility] Comment on above: Order Comment: No: D o not add to previous draw Performed By: #### 5 610, 59177 ####[facility] [place] [address], [facility] Sodium molar conc 139 mmol/L Normal 136-[address] [facility] Comment on above: Order Comment: No: D o not add to previous draw Performed By: #### 5 610, 13193 ####[facility] Urea nitrogen mass conc 14 mg/dL Normal 7-[address] [facility] Comment on above: Order Comment: No: D o not add to previous draw Performed By: #### 5 610, 21322 ####[facility] CBC COMPLETE BLOOD COUNTon 0 06-30-2018 Erythrocyte distribution width Auto Ratio (RBC) 14.0 % Normal 11.5-15.[address] [facility] Comment on above: Order Comment: No: D o not add to previous draw Performed By: #### 5 610, 22434 ####[facility] Hematocrit Auto Volume Fraction (Bld) 34.0 % Low 36.0-45.[address] [facility] Comment on above: Order Comment: No: D o not add to previous draw Performed By: #### 5 610, 25902 ####[facility] Hemoglobin mass conc (Bld) 10.7 g/dL Low 12.0-15.[address] [facility] Comment on above: Order Comment: No: D o not add to previous draw Performed By: #### 5 610, 92665 ####[facility] MCH Auto Entitic mass (RBC) 31.6 pg Normal 27.0-33.[address] [facility] Comment on above: Order Comment: No: D o not add to previous draw Performed By: #### 5 610, 31727 ####[facility] [facility].[address] MCHC Auto mass conc (RBC) 31.5 g/dL Low 32.0-35.[address] [facility] Comment on above: Order Comment: No: D o not add to previous draw Performed By: #### 5 6100, 32244 ####[address] MCV Auto Entitic volume (RBC) 100.3 fL High 82.0-98.[address] [facility] Comment on above: Order Comment: No: D o not add to previous draw Performed By: #### 5 6100, 11850 ####[facility] [facility].[address] Nucleated RBC/100 WBC Ratio (Bld) 0 % Normal 0-[address] [facility] Comment on above: Order Comment: No: D o not add to previous draw Performed By: #### 5 6100, 82640 ####[place] [address] [address] PLAT CNT 213 10*3/uL Normal 150-[address] [facility] Comment on above: Order Comment: No: D o not add to previous draw Performed By: #### 5 6100, 16413 ####[address] RBC Auto #/vol (Bld) 3.39 10*6/uL Low 3.80-5.[address] [facility] Comment on above: Order Comment: No: D o not add to previous draw Performed By: #### 5 610, 07625 ####[facility] [place] [address].[place] [address], [facility] WBC Auto #/vol (Bld) 11.66 10*3/uL High 4.00-10.[address] [facility] Comment on above: Order Comment: No: D o not add to previous draw Performed By: #### 5 6101, 87750 ####[facility] [place] [address], [facility] MAGNESIUM BLOODon 06-30-2018 Magnesium mass conc 2.1 mg/dL Normal 1.9-2.[address] [facility] Comment on above: Order Comment: No: D o not add to previous draw Performed By: #### 5 [id number], [id number] ####[facility] [place] [address], [facility] PHOSPHORUS BLOODon 8 Phosphate mass conc 2.1 mg/dL Low 2.5-5.[address] [facility] Comment on above: Order Comment: No: D o not add to previous draw Performed By: #### 5 610, [id number] ####[facility] [place] [address], [facility] POC GLUCOSE LABon 06-30-2018 Glucose mass conc 160 mg/dL High 70-[address] [facility] Comment on above: Performed By: #### 5 610, [id number] ####[facility] [place] [address], [facility] Glucose mass conc 193 mg/dL High 70-[address] [facility] Comment on above: Performed By: #### 5 610, [id number] ####[facility] [place] [place] [address], [facility] Glucose mass conc 134 mg/dL High 70-[address] [facility] Comment on above: Performed By: #### 8 [id number] ####[facility] [place] [address], [place] Glucose mass conc 132 mg/dL High 70-[address] [facility] Comment on above: Performed By: #### 8 [id number] ####[facility] [place] [address], [facility] BASIC METABOLIC PANELon 06-09 Calcium mass conc 8.7 mg/dL Normal 8.6-10.[address] [facility] Comment on above: Order Comment: No: D o not add to previous draw Performed By: #### 8 [id number] ####[facility] [place] [address], [facility] Chloride molar conc 110 mmol/L High 98-[address] [facility] Comment on above: Order Comment: No: D o not add to previous draw Performed By: #### 8 [id number] ####[facility] [place] [address], [place] CO2 molar conc 24 mmol/L Normal 21-[address] [facility] Comment on above: Order Comment: No: D o not add to previous draw Performed By: #### 8 [id number] ####[facility] [place] [address], [facility] Creatinine mass conc 1.25 mg/dL High 0.60-1.[address] [facility] Comment on above: Order Comment: No: D o not add to previous draw Performed By: #### 8 [id number] ####[facility] [place] [address], [facility] GFR/1.73 sq M predicted among blacks MDRD vol rate/area (S/P/Bld) 50 ml/min/1.73sq m Abnormal >[address] [facility] Comment on above: Order Comment: No: D o not add to previous draw Result Comment: Calc ulation may not be valid for patients over 70 years Performed By: #### 8 [id number] ####[facility] [place] [address], [place] GFR/1.73 sq M predicted among non-blacks MDRD vol rate/area (S/P/Bld) 42 ml/min/1.73sq m Abnormal >[address] [facility] Comment on above: Order Comment: No: D o not add to previous draw Result Comment: Calc ulation may not be valid for patients over 70 years Performed By: #### 8 [id number] ####[facility] [place] [address], [facility] Glucose mass conc 183 mg/dL High 70-[address] [facility] Comment on above: Order Comment: No: D o not add to previous draw Performed By: #### 8 [id number] ####[facility] [place] [address], [facility] Potassium molar conc 4.0 mmol/L Normal 3.5-5.[address] [facility] Comment on above: Order Comment: No: D o not add to previous draw Performed By: #### 8 [id number] ####[facility] [place] [address], [facility] Sodium molar conc 139 mmol/L Normal 136-[address] [facility] Comment on above: Order Comment: No: D o not add to previous draw Performed By: #### 8 [id number] ####[facility] [place] [address], [facility] Urea nitrogen mass conc 16 mg/dL Normal 7-[address] [facility] Comment on above: Order Comment: No: D o not add to previous draw Performed By: #### 8 [id number] ####[facility] [place] [address], [facility] CBC COMPLETE BLOOD COUNTon 0 06-29-2018 Erythrocyte distribution width Auto Ratio (RBC) 14.2 % Normal 11.5-15.[address] [facility] Comment on above: Order Comment: No: D o not add to previous draw Performed By: #### 8 [id number] ####[facility] [place] [address], [facility] Hematocrit Auto Volume Fraction (Bld) 36.9 % Normal 36.0-45.[address] [facility] Comment on above: Order Comment: No: D o not add to previous draw Performed By: #### 8 [id number] ####[facility] Hemoglobin mass conc (Bld) 11.5 g/dL Low 12.0-15.[address] [facility] Comment on above: Order Comment: No: D o not add to previous draw Performed By: #### 8 [id number] ####[facility] MCH Auto Entitic mass (RBC) 31.1 pg Normal 27.0-33.[address] [facility] Comment on above: Order Comment: No: D o not add to previous draw Performed By: #### 8 [id number] ####[facility] [facility] MCHC Auto mass conc (RBC) 31.2 g/dL Low 32.0-35.[address] [facility] Comment on above: Order Comment: No: D o not add to previous draw Performed By: #### 8 [id number] ####[facility] [facility].[address] MCV Auto Entitic volume (RBC) 99.7 fL High 82.0-98.[address] [facility] Comment on above: Order Comment: No: D o not add to previous draw Performed By: #### 8 [id number] ####[facility] Nucleated RBC/100 WBC Ratio (Bld) 0 % Normal 0-[address] [facility] Comment on above: Order Comment: No: D o not add to previous draw Performed By: #### 8 [id number] ####[facility] PLAT CNT 228 10*3/uL Normal 150-[address] [facility] Comment on above: Order Comment: No: D o not add to previous draw Performed By: #### 8 [id number] ####[facility] [place] [address], [facility] RBC Auto #/vol (Bld) 3.70 10*6/uL Low 3.80-5.[address] [facility] Comment on above: Order Comment: No: D o not add to previous draw Performed By: #### 8 [id number] ####[facility] [place] [address], [facility] WBC Auto #/vol (Bld) 14.41 10*3/uL High 4.00-10.[address] [facility] Comment on above: Order Comment: No: D o not add to previous draw Performed By: #### 8 [id number] ####[facility] [place] [address], [facility] MAGNESIUM BLOODon 06-29-2018 Magnesium mass conc 2.5 mg/dL Normal 1.9-2.[address] [facility] Comment on above: Order Comment: No: D o not add to previous draw Performed By: #### 8 [id number] ####[facility] [place] [address], [facility] PHOSPHORUS BLOODon 8 Phosphate mass conc 1.7 mg/dL Low 2.5-5.[address] [facility] Comment on above: Order Comment: No: D o not add to previous draw Performed By: #### 8 [id number] ####[facility] [place] [address], [facility] POC GLUCOSE LABon 06-29-2018 Glucose mass conc 134 mg/dL High 70-[address] [facility] Comment on above: Performed By: #### 8 [id number] ####[facility] [place] [address], [facility] Glucose mass conc 168 mg/dL High 70-[address] [facility] Comment on above: Performed By: #### 8 [id number] ####[facility] [facility] [address], [facility] Glucose mass conc 169 mg/dL High 70-[address] [facility] Comment on above: Performed By: #### 0 0121 ####[facility] [facility] [place] [address], [facility] Glucose mass conc 180 mg/dL High 70-[address] [facility] Comment on above: Performed By: #### 0 0121 ####[facility] [facility] [place] [address], [facility] PORTABLE CHEST 1 VIEWon 06-09 PORTABLE CHEST [address] [facility]Department of [id number] [place] [id number] Stacy ent Name: VIDHYA GIORDANO : 1940Sex: FAge: Race: WhiteMRN: [id number]. Location: [id number] Status: IVisit #: [id number] Date: 06/29/2018 7:00:00 AMCompleted Date: 06/29/2018 07:23 AMRequesting Provider: MARLIN DELGADO Attending Provider: MEG ABEBE Report Copy To: Signs & Symptoms: Elevated WBCHistory: Patient history not availableComments: R/O PneumoniaExam: PORTABLE CHEST 1 VIEWAccession #: [id number] ===PORTABLE CHEST 1 VIEW 06/29/2018 7:23 AM EDT SIGNS AND SYMPTOMS: Elevated WBC TECHNOLOGIST COMMENTS: Elevated WBC QUESTION FOR THE RADIOLOGIST: R/O Pneumonia PROTOCOL: AP(PA) view was obtained. COMPARISON: June 28, 2018. FINDINGS: Patient Is rotated. Cardiomediastinal silhouette is within normal limits. 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 Hardware fixation is again redemonstrated. Focal density overlying the right hemidiaphragm, likely atelectasis. Suspect small developing right pleural effusion. There is no pneumothorax. There is no subdiaphragmatic free air. The osseous structures are unchanged. IMPRESSION:Possible pneumatocele in the left upper lobe.Focal density overlying the right hemidiaphragm likely atelectasis. The hemidiaphragm is still visualized.New small right pleural effusion Approved by:MARITA MCKEON on 06/29/2018 9:11 AM EDT. I, Rhoda Nicole, have reviewed the images and report and concur with these findings. Electronically signed by:Rhoda Nicole. Transcribed by: [email or web address], User Resident: MARITA MCKENOElectronically Signed by: RHODA NICOLE @ 06/29/2018 09:45 AMI personally read this/these film(s) with this resident Normal [facility] Comment on above: Order Comment: R/O P neumonia *BLOOD CULTUREon 06-28-2018 Bacteria identified in Blood by Culture Clinical Report: (D) Specimen: BLOOD CULTURE Collected: 06/28/2018 18:45 Status: Final Last Updated: 07/04/2018 07:52 CULT RES (Final) No Growth Day [address] [facility] Comment on above: Performed By: #### 0 0121 ####[facility] [place] [address], [facility] BASIC METABOLIC PANELon 06-09 Calcium mass conc 8.6 mg/dL Normal 8.6-10.[address] [facility] Comment on above: Order Comment: No: D o not add to previous drawNo collection time noted on specimen or requisition. The collection timerecorded is the time of receipt in the lab. Performed By: #### 0 0121 ####[facility] [facility] [place] [address], [facility] Chloride molar conc 106 mmol/L Normal 98-[address] [facility] Comment on above: Order Comment: No: D o not add to previous drawNo collection time noted on specimen or requisition. The collection timerecorded is the time of receipt in the lab. Performed By: #### 0 0121 ####[facility] [facility] [place] [address], [facility] CO2 molar conc 26 mmol/L Normal 21-[address] [facility] Comment on above: Order Comment: No: D o not add to previous drawNo collection time noted on specimen or requisition. The collection timerecorded is the time of receipt in the lab. Performed By: #### 0 0121 ####[address] [place] [address], [facility] Creatinine mass conc 1.50 mg/dL High 0.60-1.[address] [facility] Comment on above: Order Comment: No: D o not add to previous drawNo collection time noted on specimen or requisition. The collection timerecorded is the time of receipt in the lab. Performed By: #### 0 0121 ####[facility] [facility] [place] [address], [facility] GFR/1.73 sq M predicted among blacks MDRD vol rate/area (S/P/Bld) 41 ml/min/1.73sq m Abnormal >[address] [facility] Comment on above: Order Comment: No: D o not add to previous drawNo collection time noted on specimen or requisition. The collection timerecorded is the time of receipt in the lab. Result Comment: Calc ulation may not be valid for patients over 70 years Performed By: #### 0 0121 ####[facility] [facility] [place] [address], [facility] GFR/1.73 sq M predicted among non-blacks MDRD vol rate/area (S/P/Bld) 33 ml/min/1.73sq m Abnormal >[address] [facility] Comment on above: Order Comment: No: D o not add to previous drawNo collection time noted on specimen or requisition. The collection timerecorded is the time of receipt in the lab. Result Comment: Calc ulation may not be valid for patients over 70 years Performed By: #### 0 0121 ####[facility] [facility] [place] [address], [facility] Glucose mass conc 170 mg/dL High 70-[address] [facility] Comment on above: Order Comment: No: D o not add to previous drawNo collection time noted on specimen or requisition. The collection timerecorded is the time of receipt in the lab. Performed By: #### 0 0121 ####[facility] [facility] [place] [address], [facility] Potassium molar conc 4.0 mmol/L Normal 3.5-5.[address] [facility] Comment on above: Order Comment: No: D o not add to previous drawNo collection time noted on specimen or requisition. The collection timerecorded is the time of receipt in the lab. Performed By: #### 0 0121 ####[facility] [facility] [place] [address], [facility] Sodium molar conc 137 mmol/L Normal 136-[address] [facility] Comment on above: Order Comment: No: D o not add to previous drawNo collection time noted on specimen or requisition. The collection timerecorded is the time of receipt in the lab. Performed By: #### 0 0121 ####[facility] [facility] [place] [address], [facility] Urea nitrogen mass conc 23 mg/dL Normal 7-[address] [facility] Comment on above: Order Comment: No: D o not add to previous drawNo collection time noted on specimen or requisition. The collection timerecorded is the time of receipt in the lab. Performed By: #### 0 0121 ####[facility] CBC W/DIFFon 06-28-2018 ABS BASOPHILS 0.0 10*3/uL Normal 0.0-0.[address] [facility] Comment on above: Order Comment: No: D o not add to previous drawNo collection time noted on specimen or requisition. The collection timerecorded is the time of receipt in the lab. Performed By: #### 0 0121 ####[facility] ABS IMM GRANS 0.1 10*3/uL Normal 0.0-0.[address] [facility] Comment on above: Order Comment: No: D o not add to previous drawNo collection time noted on specimen or requisition. The collection timerecorded is the time of receipt in the lab. Performed By: #### 0 0121 ####[address] ABS NEUTROPHILS 9.5 10*3/uL High 1.6-7.[address] [facility] Comment on above: Order Comment: No: D o not add to previous drawNo collection time noted on specimen or requisition. The collection timerecorded is the time of receipt in the lab. Performed By: #### 0 0121 ####[facility] Basophils Auto #/vol (Bld) 0.2 % Normal 0.0-1.[address] [facility] Comment on above: Order Comment: No: D o not add to previous drawNo collection time noted on specimen or requisition. The collection timerecorded is the time of receipt in the lab. Performed By: #### 0 0121 ####[address] Eosinophils Auto #/vol (Bld) 0.0 10*3/uL Normal 0.0-0.[address] [facility] Comment on above: Order Comment: No: D o not add to previous drawNo collection time noted on specimen or requisition. The collection timerecorded is the time of receipt in the lab. Performed By: #### 0 0121 ####[place] [address] Eosinophils/100 WBC Auto (Bld) 0.1 % Normal 0.0-6.[address] [facility] Comment on above: Order Comment: No: D o not add to previous drawNo collection time noted on specimen or requisition. The collection timerecorded is the time of receipt in the lab. Performed By: #### 0 0121 ####[place] [address] Erythrocyte distribution width Auto Ratio (RBC) 14.0 % Normal 11.5-15.[address] [facility] Comment on above: Order Comment: No: D o not add to previous drawNo collection time noted on specimen or requisition. The collection timerecorded is the time of receipt in the lab. Performed By: #### 0 0121 ####[address] Hematocrit Auto Volume Fraction (Bld) 35.7 % Low 36.0-45.[address] [facility] Comment on above: Order Comment: No: D o not add to previous drawNo collection time noted on specimen or requisition. The collection timerecorded is the time of receipt in the lab. Performed By: #### 0 0121 ####[facility] Hemoglobin mass conc (Bld) 11.9 g/dL Low 12.0-15.[address] [facility] Comment on above: Order Comment: No: D o not add to previous drawNo collection time noted on specimen or requisition. The collection timerecorded is the time of receipt in the lab. Performed By: #### 0 0121 ####[address] IMMATURE GRANS 0.4 % Normal 0.0-1.[address] [facility] Comment on above: Order Comment: No: D o not add to previous drawNo collection time noted on specimen or requisition. The collection timerecorded is the time of receipt in the lab. Performed By: #### 0 0121 ####[address] Lymphocytes Auto #/vol (Bld) 2.5 10*3/uL Normal 1.2-4.[address] [facility] Comment on above: Order Comment: No: D o not add to previous drawNo collection time noted on specimen or requisition. The collection timerecorded is the time of receipt in the lab. Performed By: #### 0 0121 ####[address] Lymphocytes/100 WBC Auto (Bld) 18.4 % Low 20.0-45.[address] [facility] Comment on above: Order Comment: No: D o not add to previous drawNo collection time noted on specimen or requisition. The collection timerecorded is the time of receipt in the lab. Performed By: #### 0 0121 ####[address] MCH Auto Entitic mass (RBC) 31.7 pg Normal 27.0-33.[address] [facility] Comment on above: Order Comment: No: D o not add to previous drawNo collection time noted on specimen or requisition. The collection timerecorded is the time of receipt in the lab. Performed By: #### 0 0121 ####[address] MCHC Auto mass conc (RBC) 33.3 g/dL Normal 32.0-35.[address] [facility] Comment on above: Order Comment: No: D o not add to previous drawNo collection time noted on specimen or requisition. The collection timerecorded is the time of receipt in the lab. Performed By: #### 0 0121 ####[facility] [facility].[address] MCV Auto Entitic volume (RBC) 95.2 fL Normal 82.0-98.[address] [facility] Comment on above: Order Comment: No: D o not add to previous drawNo collection time noted on specimen or requisition. The collection timerecorded is the time of receipt in the lab. Performed By: #### 0 0121 ####[facility] [facility].[address] Monocytes Auto #/vol (Bld) 1.3 10*3/uL High 0.1-1.[address] [facility] Comment on above: Order Comment: No: D o not add to previous drawNo collection time noted on specimen or requisition. The collection timerecorded is the time of receipt in the lab. Performed By: #### 0 0121 ####[facility] [facility].[address] MONOS 10.0 % Normal 5.0-12.[address] [facility] Comment on above: Order Comment: No: D o not add to previous drawNo collection time noted on specimen or requisition. The collection timerecorded is the time of receipt in the lab. Performed By: #### 0 0121 ####[facility] [facility].[address] Neutrophils/100 WBC Auto (Bld) 70.9 % Normal 40.0-72.[address] [facility] Comment on above: Order Comment: No: D o not add to previous drawNo collection time noted on specimen or requisition. The collection timerecorded is the time of receipt in the lab. Performed By: #### 0 0121 ####[facility] Nucleated RBC/100 WBC Ratio (Bld) 0 % Normal 0-[address] [facility] Comment on above: Order Comment: No: D o not add to previous drawNo collection time noted on specimen or requisition. The collection timerecorded is the time of receipt in the lab. Performed By: #### 0 0121 ####[facility] [facility].[address] PLAT CNT 236 10*3/uL Normal 150-[address] [facility] Comment on above: Order Comment: No: D o not add to previous drawNo collection time noted on specimen or requisition. The collection timerecorded is the time of receipt in the lab. Performed By: #### 0 0121 ####[facility] [facility].[address] RBC Auto #/vol (Bld) 3.75 10*6/uL Low 3.80-5.[address] [facility] Comment on above: Order Comment: No: D o not add to previous drawNo collection time noted on specimen or requisition. The collection timerecorded is the time of receipt in the lab. Performed By: #### 0 0121 ####[facility] WBC Auto #/vol (Bld) 13.43 10*3/uL High 4.00-10.[address] [facility] Comment on above: Order Comment: No: D o not add to previous drawNo collection time noted on specimen or requisition. The collection timerecorded is the time of receipt in the lab. Performed By: #### 0 0121 ####[facility]3000 [facility].[address] MAGNESIUM BLOODon 06-28-2018 Magnesium mass conc 1.7 mg/dL Low 1.9-2.[address] [facility] Comment on above: Order Comment: No: D o not add to previous drawNo collection time noted on specimen or requisition. The collection timerecorded is the time of receipt in the lab. Performed By: #### 1 0070, [id number], [id number] ####[facility] [facility] [place] [address], [facility] PHOSPHORUS BLOODon 8 Phosphate mass conc 3.4 mg/dL Normal 2.5-5.[address] [facility] Comment on above: Order Comment: No: D o not add to previous drawNo collection time noted on specimen or requisition. The collection timerecorded is the time of receipt in the lab. Performed By: #### 1 0070, [id number], [id number] ####[facility] POC GLUCOSE LABon 06-28-2018 Glucose mass conc 166 mg/dL High 70-[address] [facility] Comment on above: Performed By: #### 0 0121 ####[place] [address] [address] Glucose mass conc 168 mg/dL High 70-[address] [facility] Comment on above: Performed By: #### 0 0121 ####[address] Glucose mass conc 141 mg/dL High 70-[address] [facility] Comment on above: Performed By: #### 0 0121 ####[place] [address] [address] Glucose mass conc 180 mg/dL High 70-[address] [facility] Comment on above: Performed By: #### 8 5499 ####[address] PORTABLE CHEST 1 VIEWon 06-09 PORTABLE CHEST [address] [facility] HospitalDepartment of Pywiypoxr[address] [place] [id number] Stacy ent Name: VIDHYA GIORDANO : 1940Sex: FAge: Race: WhiteMRN: [id number]. Location: [id number] Status: IVisit #: [id number] Date: 06/28/2018 6:35:00 PMCompleted Date: 06/28/2018 07:38 PMRequesting Provider: VINICIO REAVES Attending Provider: MEG ABEBE Report Copy To: Signs & Symptoms: FeverHistory: Patient history not availableComments: R/O InfiltratesExam: PORTABLE CHEST 1 VIEWAccession #: [id number] ===PORTABLE CHEST 1 VIEW 06/28/2018 7:38 PM EDT SIGNS AND SYMPTOMS: Fever TECHNOLOGIST COMMENTS: fever QUESTION FOR THE RADIOLOGIST: R/O Infiltrates PROTOCOL: AP(PA) view was obtained. COMPARISON: October 13, 2013. FINDINGS: Trachea is midline. 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 Bilateral lungs and costophrenic sulci are clear. There is possibly a focal area of retrocardiac atelectasis. Surgical clips overlying the left upper quadrant. Subtle circular density with central lucency possibly a pneumatocele. 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 Bibasilar atelectasisNo radiographic evidence of acute cardiopulmonary disease. Approved by:MARITA MCKEON on 06/29/2018 9:16 AM EDT. I, Rhoda Nicole, have reviewed the images and report and concur with these findings. Electronically signed by:Rhoda Nicole. Transcribed by: [email or web address], User Resident: MARITA MCKEONElectronically Signed by: RHODA NICOLE @ 06/29/2018 09:22 AMI personally read this/these film(s) with this resident Normal [facility] Comment on above: Order Comment: R/O I nfiltrates URINALYSIS REFLEXon 06-28-20 18 APPEARANCE CLEAR Normal CLEAR [facility] Comment on above: Order Comment: No: D o not add to previous drawCriteria for reflexing a culture was not met. Please call the lab [id number] within 24 hours of collection time if culture is needed Performed By: #### 0 0121 ####[facility] [place] [address], [facility] BILIRUBIN Negative Normal NEGATIVE [facility] Comment on above: Order Comment: No: D o not add to previous drawCriteria for reflexing a culture was not met. Please call the lab [id number] within 24 hours of collection time if culture is needed Performed By: #### 0 0121 ####[facility] [place] [address], [place] BLOOD Negative Normal NEGATIVE [facility] Comment on above: Order Comment: No: D o not add to previous drawCriteria for reflexing a culture was not met. Please call the lab [id number] within 24 hours of collection time if culture is needed Performed By: #### 0 0121 ####[facility] [place] [address], [place] COLOR YELLOW Normal YELLOW [facility] Comment on above: Order Comment: No: D o not add to previous drawCriteria for reflexing a culture was not met. Please call the lab [id number] within 24 hours of collection time if culture is needed Performed By: #### 0 0121 ####[facility] [place] [address], [place] GLUCOSE Negative Normal NEGATIVE [facility] Comment on above: Order Comment: No: D o not add to previous drawCriteria for reflexing a culture was not met. Please call the lab [id number] within 24 hours of collection time if culture is needed Performed By: #### 0 0121 ####[facility] [place] [address], [place] KETONE Negative Normal NEGATIVE [facility] Comment on above: Order Comment: No: D o not add to previous drawCriteria for reflexing a culture was not met. Please call the lab [id number] within 24 hours of collection time if culture is needed Performed By: #### 0 0121 ####[facility] [place] [address], [facility] [place] Negative Normal NEGATIVE [facility] Comment on above: Order Comment: No: D o not add to previous drawCriteria for reflexing a culture was not met. Please call the lab [id number] within 24 hours of collection time if culture is needed Performed By: #### 0 0121 ####[facility] [facility] [place] [address], [facility] MICRO NOT DONE negative chemical reactions unless requested in original order Normal [facility] Comment on above: Order Comment: No: D o not add to previous drawCriteria for reflexing a culture was not met. Please call the lab [id number] within 24 hours of collection time if culture is needed Performed By: #### 0 0121 ####[facility] [facility] [place] [address], [facility] NITRITE Negative Normal NEGATIVE [facility] Comment on above: Order Comment: No: D o not add to previous drawCriteria for reflexing a culture was not met. Please call the lab [id number] within 24 hours of collection time if culture is needed Performed By: #### 0 0121 ####[facility] [place] [address], [facility] PH 5.0 Normal 5.0-8.[address] [facility] Comment on above: Order Comment: No: D o not add to previous drawCriteria for reflexing a culture was not met. Please call the lab [id number] within 24 hours of collection time if culture is needed Performed By: #### 0 0121 ####[facility] [place] [address], [facility] Protein mass conc Negative Normal NEGATIVE [facility] Comment on above: Order Comment: No: D o not add to previous drawCriteria for reflexing a culture was not met. Please call the lab [id number] within 24 hours of collection time if culture is needed Performed By: #### 0 0121 ####[facility] [place] [address], [facility] SPEC GRAV 1.013 Low 1.015-1.[address] [facility] Comment on above: Order Comment: No: D o not add to previous drawCriteria for reflexing a culture was not met. Please call the lab [id number] within 24 hours of collection time if culture is needed Performed By: #### 0 0121 ####[facility] APTTon 06-27-2018 aPTT Coag time (Bld) 33.7 s Normal 25.0-35.[address] [facility] Comment on above: Result Comment: ALL RESULTS MUST BE INTERPRETED WITH RESPECT TO BLOOD DRAWING ARTIFACTOR DILUTION ERROR OF ANTICOAGULANT AT THE TIME OF SAMPLING.THE APTT SHOULD NOT BE USED TO MONITOR UNFRACTIONATED HEPARIN THERAPY, THIS LABORATORY NO LONGER HAS AN ESTABLISHED THERAPEUTIC RANGE BASEDON THE APTT. IT IS RECOMMENDED THAT THE [facility] - HEPARIN ASSAY (ANTI-XAACTIVITY) BE USED FOR THIS PURPOSE. Performed By: #### 5 6101, [id number] ####[facility] [facility].[address] POC GLUCOSE LABon 06-27-2018 Glucose mass conc 164 mg/dL High 70-[address] [facility] Comment on above: Performed By: #### 8 5499 ####[facility] [facility] [place] [address], [facility] Glucose mass conc 194 mg/dL High 70-[address] [facility] Comment on above: Performed By: #### 8 5499 ####[facility] [facility] [place] [address], [facility] Glucose mass conc 115 mg/dL High 70-[address] [facility] Comment on above: Performed By: #### 8 5499 ####[facility] [facility].[address] PROTHROMBIN TIMEon 8 INR Coag RelTime (PPP) 1.07 {INR} Normal 0.91-1.[address] [facility] Comment on above: Result Comment: ACCC P RECOMMENDED INR FOR WARFARIN THERAPY CONDITION INRPROPHYLAXIS OF VENOUS THROMBOSIS 2-3(HIGH-RISK SURGERY)TREATMENT OF VENOUS THROMBOSIS 2-3TREATMENT OF PULMONARY EMBOLISM 2-3PREVENTION OF SYSTEMIC EMBOLISM: 2-3 ACUTE MYOCARDIAL INFARCTION TISSUE HEART VALVES VALVULAR HEART DISEASE ATRIAL FIBRILLATION RECURRENT SYSTEMIC EMBOLISMMECHANICAL HEART VALVE 2.5-3.5 FROM: ORAL ANTICOAGULANTS. MECHANISM OF ACTION, CLINICALEFFECTIVENESS, AND OPTIMAL THERAPEUTIC RANGE. [id number]. Performed By: #### 5 6101, 63631 ####[facility] [facility].[address] Prothrombin time (PT) Coag time (PPP) 13.9 s Normal 12.3-14.[address] [facility] Comment on above: Result Comment: ALL RESULTS MUST BE INTERPRETED WITH RESPECT TO BLOOD DRAWING ARTIFACTOR DILUTION ERROR OF ANTICOAGULANT AT THE TIME OF SAMPLING. Performed By: #### 5 6101, 70913 ####[facility] [facility].[address] CBC W/DIFFon 05-24-2018 ABS BASOPHILS 0.1 10*3/uL Normal 0.0-0.[address] [facility] Comment on above: Performed By: #### 5 0103 ####[facility] ABS IMM GRANS 0.1 10*3/uL Normal 0.0-0.[address] [facility] Comment on above: Performed By: #### 5 0103 ####[facility] ABS NEUTROPHILS 4.6 10*3/uL Normal 1.6-7.[address] [facility] Comment on above: Performed By: #### 5 0103 ####[facility] Basophils Auto #/vol (Bld) 0.7 % Normal 0.0-1.[address] [facility] Comment on above: Performed By: #### 5 0103 ####[facility] Eosinophils Auto #/vol (Bld) 0.5 10*3/uL Normal 0.0-0.[address] [facility] Comment on above: Performed By: #### 5 0103 ####[facility] Eosinophils/100 WBC Auto (Bld) 5.2 % Normal 0.0-6.[address] [facility] Comment on above: Performed By: #### 5 0103 ####[facility] Erythrocyte distribution width Auto Ratio (RBC) 13.8 % Normal 11.5-15.[address] [facility] Comment on above: Performed By: #### 5 3 ####[facility] Hematocrit Auto Volume Fraction (Bld) 40.0 % Normal 36.0-45.[address] [facility] Comment on above: Performed By: #### 5 102 ####[facility] Hemoglobin mass conc (Bld) 13.0 g/dL Normal 12.0-15.[address] [facility] Comment on above: Performed By: #### 102 ####[facility] IMMATURE GRANS 0.6 % Normal 0.0-1.[address] [facility] Comment on above: Performed By: #### 102 ####[address] Lymphocytes Auto #/vol (Bld) 3.1 10*3/uL Normal 1.2-4.[address] [facility] Comment on above: Performed By: #### 102 ####[address] Lymphocytes/100 WBC Auto (Bld) 33.5 % Normal 20.0-45.[address] [facility] Comment on above: Performed By: #### 5 102 ####[address] MCH Auto Entitic mass (RBC) 31.9 pg Normal 27.0-33.[address] [facility] Comment on above: Performed By: #### 5 3 ####[facility] MCHC Auto mass conc (RBC) 32.5 g/dL Normal 32.0-35.[address] [facility] Comment on above: Performed By: #### 102 ####[facility] [place] [address] MCV Auto Entitic volume (RBC) 98.0 fL Normal 82.0-98.[address] [facility] Comment on above: Performed By: #### 5 0103 ####[facility] [facility].[address] Monocytes Auto #/vol (Bld) 1.0 10*3/uL Normal 0.1-1.[address] [facility] Comment on above: Performed By: #### 102 ####[facility] MONOS 10.3 % Normal 5.0-12.[address] [facility] Comment on above: Performed By: #### 102 ####[facility] Neutrophils/100 WBC Auto (Bld) 49.7 % Normal 40.0-72.[address] [facility] Comment on above: Performed By: #### 102 ####[facility] Nucleated RBC/100 WBC Ratio (Bld) 0 % Normal 0-[address] [facility] Comment on above: Performed By: #### 102 ####[facility] PLAT CNT 258 10*3/uL Normal 150-[address] [facility] Comment on above: Performed By: #### 102 ####[facility] RBC Auto #/vol (Bld) 4.08 10*6/uL Normal 3.80-5.[address] [facility] Comment on above: Performed By: #### 102 ####[facility] WBC Auto #/vol (Bld) 9.35 10*3/uL Normal 4.00-10.[address] [facility] Comment on above: Performed By: #### 102 ####[facility] [place] [address], [facility] COMP METABOLIC PANELon 05-24 Albumin mass conc 4.1 g/dL Normal 3.5-5.[address] [facility] Comment on above: Performed By: #### 0 0121 ####[facility] [place] [address], [facility] ALKALINE PHOSPH 64 IU/L Normal 34-[address] [facility] Comment on above: Performed By: #### 0 0121 ####[facility] [place] [address], [facility] ALT enzyme act/vol 26 U/L Normal 7-[address] [facility] Comment on above: Performed By: #### 0 0121 ####[facility] [place] [address], [facility] AST enzyme act/vol 32 U/L Normal 13-[address] [facility] Comment on above: Performed By: #### 0 0121 ####[facility] [facility] [place] [address], [facility] Bilirubin mass conc 0.4 mg/dL Normal 0.3-1.[address] [facility] Comment on above: Performed By: #### 0 0121 ####[facility] [facility] [place] [address], [facility] Calcium mass conc 10.2 mg/dL Normal 8.6-10.[address] [facility] Comment on above: Performed By: #### 0 0121 ####[facility] [place] [address], [facility] Chloride molar conc 102 mmol/L Normal 98-[address] [facility] Comment on above: Performed By: #### 0 0121 ####[facility] [place] [address], [facility] CO2 molar conc 24 mmol/L Normal 21-[address] [facility] Comment on above: Performed By: #### 0 0121 ####[facility] [address], [facility] Creatinine mass conc 1.41 mg/dL High 0.60-1.[address] [facility] Comment on above: Performed By: #### 0 0121 ####[facility] [address], [facility] GFR/1.73 sq M predicted among blacks MDRD vol rate/area (S/P/Bld) 44 ml/min/1.73sq m Abnormal >[address] [facility] Comment on above: Result Comment: Calc ulation may not be valid for patients over 70 years Performed By: #### 0 0121 ####[facility] [facility] [place] [address], [facility] GFR/1.73 sq M predicted among non-blacks MDRD vol rate/area (S/P/Bld) 36 ml/min/1.73sq m Abnormal >[address] [facility] Comment on above: Result Comment: Calc ulation may not be valid for patients over 70 years Performed By: #### 0 0121 ####[facility] [facility] [place] [address], [facility] Glucose mass conc 129 mg/dL High 70-[address] [facility] Comment on above: Performed By: #### 0 0121 ####[facility] [facility] [place] [address], [facility] Potassium molar conc 5.1 mmol/L Normal 3.5-5.[address] [facility] Comment on above: Performed By: #### 0 0121 ####[facility] [place] [address], [facility] Protein mass conc 7.6 g/dL Normal 6.0-8.[address] [facility] Comment on above: Performed By: #### 0 0121 ####[facility] [place] Sodium molar conc 134 mmol/L Low 136-[address] [facility] Comment on above: Performed By: #### 0 0121 ####[facility] [place] Urea nitrogen mass conc 25 mg/dL Normal 7-[address] [facility] Comment on above: Performed By: #### 0 0121 ####[facility] Progress Noteon 12-02-2017 HIM IP Note OR Head Of Product Normal [facility] HIM IP Note OR Head Of Product Normal [facility] Encounters Encounter Date Encounter Type Care Provider Facility Start: 12-13-2023 End: 12-13-2023 ambulatory MARQUITA PAPPAS Not Available Comment on above: Bilateral impacted c erumen (Primary Dx) Start: 11-03-2023 ambulatory Kael Adkins Facility: [facility] Start: 01-22-2023 End: 01-22-2023 ambulatory STACIA KELLER Facility: Start: 11-16-2022 End: 11-17-[address] CROWLEY LISTED REQUEST Facility:[facility] Start: 09-16-2022 ambulatory STACIA KELLER Facility: Start: 08-28-2022 End: 08-29-2022 ambulatory KAEL ADKINS Facility:[facility] Start: 02-11-2022 End: 02-12-[address] DOCTOR JUAREZ Facility:[facility] Start: 02-08-2022 End: 02-08-[address] KAEL ADKINS . Facility:[facility] Start: 02-04-2022 ambulatory STACIA KELLER Facility: [facility] Start: 02-01-2022 End: 02-01-[address] KAEL ADKINS . Facility: Start: 06-27-2018 End: 07-19-2018 Evaluation and management of inpatient MEG ABEBE Facility:[facility] Start: 05-24-2018 End: 05-25-2018 Patient encounter MEG ABEBE Facility:[facility] Start: 04-19-2018 End: 04-20-2018 Patient encounter MEG ABEBE Facility:[facility] Procedures Date Procedure Procedure Detail Performing Clinician Start: 07-02-2018 EXCISION OF PERITONE UM, OPEN APPROACH TOMERIN MIS Start: 07-02-2018 EXCISION OF SMALL IN TESTINE, OPEN APPROACH MEG ABEBE Start: 07-02-2018 INTRODUCE ADHESION B ARRIER IN PERITON CAV, OPEN TOMERIN MIS Start: 07-02-2018 RELEASE SMALL INTEST INE, OPEN APPROACH MEG ABEBE Start: 07-02-2018 REPAIR TRANSVERSE CO ELMER, OPEN APPROACH MEG ABEBE Start: 07-02-2018 Antibody screen MEG ABEBE Comment on above: Performed By: #### 5 6101, [id number] ####[facility] [place] Start: 06-28-2018 INTRODUCE OF OTH THE RAP SUBST INTO RESP TRACT, VIA OPENING MEG ABEBE Start: 06-27-2018 EXCISION OF ABD SUBC U/FASCIA, OPEN APPROACH MEG ABEBE Start: 06-27-2018 REPAIR SMALL INTESTI NE, OPEN APPROACH MEG ABEBE Plan of Treatment Date Care Activity Detail Author Start: 2004 Pneumococcal Vaccine : 65+ Years (1 - PCV) Pneumococcal Vaccine: 65+ Years (1 - PCV) [facility] Payers Date Payer Category Payer Private Health Insurance [id number] Self-pay 1960 Medicare [id number] 1960 Self-pay [id number] 1959 Unknown 1959 Unknown [id number] 1939 Unknown [id number] 2.16.8 [id number] 1939 Unknown [id number] 2.16.8 [id number] 1939 Unknown [id number] 2.16.8 [id number] 1939 Unknown [id number] 2.16.84 0.1.588353.3.579.2.718 1939 Unknown [id number] 2.16.84 0.1.975701.3.579.2.593 1939 Unknown [id number] 2.16.84 0.1.896603.3.579.2.593 1939 Unknown [id number] 2.16.84 0.1.627870.3.579.2.593 1939 Unknown [id number] 2.16.84 0.1.514448.3.579.2.593 1939 Unknown [id number] 2.16.84 0.1.781184.3.579.2.593 1939 Unknown [id number] 2.16.84 0.1.777391.3.579.2.593 1939 Unknown [id number] 2.16.84 0.1.812756.3.579.2.593 1939 Unknown [id number] 2.16.84 0.1.570861.3.579.2.1259 Medicare [id number] Unknown [id number] 2.16.8 [id number] Social History Date Type Detail Facility [facility] Start: 1940 Sex Assigned At Not on file [facility] Gender identity Not on file [facility] History of Present illness Narrative 12-13-2023 ZORA Infante - 12/13/2023 1:00 PM EST Note Date & Type Note Facility 12-13-2023 History of Presen t illness Narrative History: Pt here for right ear cleaning. She recently saw her pcp and was told she had a lot of wax in her right ear. Otoscopic Exam: Right Ear: Cerumen impaction Left Ear: Minimal cerumen Procedure: Cerumen removed from each ear canal under direct otoscopy using suction and curette without incident. TM intact post cleaning. Pt to return prn documented in this encounter [facility] Evaluation note Note Date & Type Note Facility Evaluation note Diagnosis Bilateral impacted cerumen- Primary Impacted cerumen documented in this encounter [facility] Summary Purpose Family History No Family History Records FoundNo Family History Records FoundNo Family History Records FoundNo Family History Records FoundNo Family History Records FoundNo Family History Records Found Advance Directives No Advanced Directives Records FoundNo Advanced Directives Records FoundNo Advanced Directives Records FoundNo Advanced Directives Records FoundNo Advanced Directives Records FoundNo Advanced Directives Records Found Hospital Course Note MR[id number] [facility] Name[facility] Vidhya Giordano Admitted: 06/27/2018 Discharged: 07/19/2018 Date of : 1940 Physician: Meg Abebe M.D. DISCHARGE SUMMARYDISCHARGE ATTENDING: Meg Abebe M.D.PRINCIPAL DIAGNOSIS: Enterocutaneous fistula.SECONDARY DIAGNOSES: Depression, hypertension, diabetes mellitus,neuropathy.PROCEDURES PERFORMED AND TREATMENT RENDERED: The patient is a [id number] with a history of ventral hernia repair. She developed anenterocutaneous fistula with low output. However, after more than 6 monthsof conservative therapy, this fistula is not healed and repair of theenterocutaneous fistula was offered to the patient. On June 27, 2018,the patient underwent exploratory laparotomy, repair of anterior cutaneousfistula. Postoperatively, we waited for return of bowel function. On07/01/2018, there was noted to be stool from the midline. It was thendecided to take the patient back to the OR on July 02, 2018, 6 daysstatus p (more content not included)... Additional Source Comments INFORMATION SOURCE (unrecogn ized section and content) DATE CREATED AUTHOR 05/02/2018 [facility] DATE CREATED AUTHOR AUTHOR'S ORGANIZ ATION 10/02/2018 [facility] DATE CREATED AUTHOR AUTHOR'S ORGANIZ ATION 09/01/2022 [facility] DATE CREATED AUTHOR AUTHOR'S ORGANIZ ATION 01/31/2023 [facility] DATE CREATED AUTHOR AUTHOR'S ORGANIZ ATION 11/10/2023 [facility] DATE CREATED AUTHOR AUTHOR'S ORGANIZ ATION 12/14/2023 [facility] dical Specialists EPIC Care Teams (unrecognized sec tion and content) 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 This clinical summary was aggregated from multiple sources. Caution should be exercised in using it in the provision of clinical care. This summary normalizes information from multiple sources, and as a consequence, information in this document may materially change the coding, format and clinical context of patient data. In addition, data may be omitted in some cases. CLINICAL DECISIONS SHOULD BE BASED ON THE PRIMARY CLINICAL RECORDS. [employer] provides no warranty or guarantee of the accuracy or completeness of information in this document.
[2024-01-03 10:22] LABS: Alanine Aminotransferase 14 U/L (14-59); Albumin Level 3.7 g/dL (3.4-5.0); Alkaline Phosphatase 79 U/L (46-116); Anion Gap 13.2; Aspartate Amino Transferase 16 U/L (15-37); BUN Creatinine Ratio 16.8; Bilirubin Total 0.3 mg/dL (0.2-1.0); Calcium 9.1 mg/dL (8.5-10.1); Carbon Dioxide 25.9 mmol/L (21.0-32.0); Chloride 102 mmol/L (98-107); Estimated GFR (African America 24 (>=60); Estimated GFR (Non-African Ame 20 (>=60); Globulin 3.8 g/dL; Glucose 101 mg/dL (74-106); Potassium 5.1 mmol/L (3.5-5.1); Sodium 136 mmol/L (136-145); Total Protein 7.5 g/dL (6.4-8.2)
[2024-01-03 10:50] LABS: Estimated Average Glucose 120 mg/dL; Glycohemoglobin A1C 5.8 % (4.5-6.2)
== END 2024-01-03 09:33 | disposition home or self-care (01) ==
LOC: LAB 09:34
PROVIDERS: PCP Nurse Practitioner Family; Visit Provider Nurse Practitioner Family
DX: E87.5 Hyperkalemia (principal)
CPT/HCPCS: 36415; 80053; 83036

== ENCOUNTER 2024-01-18 12:33 | Outpatient (OUT) | payer MEDICARE, SELFPAY ==
--- NOTE | 2024-01-18 12:30 | CA_ITS ---
[facility] Test Date: 2024-01-18 Pat Name: VIDHYA REGALADO Department: Room: - Gender: Female Front Desk Specialist: : 1940 Requested By: Carline Neumann Order Number: [id number] Reading MD: ADIN MAXWELL Interpretive Statements Monophasic doppler waveforms. PVR waveforms with delayed upstroke, blunted amplitude and loss of dicrotic notch. Right: - no significant pressure gradient between cuffs - abnormal SIDRA Left: - no significant pressure gradient between cuffs - normal SIDRA Impression: - normal arterial evaluation of the left lower extremity without hemodynamic impairment of the left lower extremity at rest. (SIDRA 1.07) - significant arterial disease of the right lower extremity with mild hemodynamic impairment of the right lower extremity at rest (SIDRA 0.95) Electronically Signed On 01-18-2024 22:51:27 EDT by ADIN MAXWELL
== END 2024-01-18 12:34 | disposition home or self-care (01) ==
LOC: CARD 12:34
PROVIDERS: PCP Nurse Practitioner Family; Visit Provider Physician Assistant
DX: R09.89 Other specified symptoms and signs involving the circulatory and respiratory systems (principal)
CPT/HCPCS: 93923

== ENCOUNTER 2024-05-03 11:56 | Outpatient (OUT) | payer MEDICARE, OTHER, SELFPAY ==
[2024-05-03 13:30] LABS: Basophils Absolute Auto 0.1 10^3/uL (0.0-0.1); Basophils Percent Auto 0.5 % (0.2-2.0); Eosinophils Absolute Auto 0.2 10^3/uL (0.0-0.7); Eosinophils Percent Auto 1.7 % (0.9-7.0); Hematocrit 30.8 % (36.0-48.0); Hemoglobin 9.9 g/dL (12.0-16.0); Immature Granulocytes Abs Auto 0.12 10^3/uL (0.00-0.03); Lymphocytes Absolute Auto 3.6 10^3/uL (1.2-3.8); Lymphocytes Percent Auto 28.8 % (20.5-60.0); Mean Corpuscular HGB Conc 32.1 g/dL (29.9-35.2); Mean Corpuscular Hemoglobin 30.8 pg (26.7-34.0); Mean Platelet Volume 11.3 fL (9.5-13.5); Monocytes Absolute Auto 1.1 10^3/uL (0.3-0.8); Monocytes Percent Auto 8.8 % (1.7-12.0); Neutrophils Absolute Auto 7.3 10^3/uL (1.4-6.5); Neutrophils Percent Auto 59.2 % (43.0-75.0); Platelet Count 211 10^3/uL (150-450); Red Blood Count 3.21 10^6/uL (4.20-5.40); Red Cell Distribution Width 15.3 % (11.0-15.0); White Blood Count 12.3 10^3/uL (4.0-11.0)
[2024-05-03 14:51] LABS: Alanine Aminotransferase 16 U/L (14-59); Albumin Globulin Ratio 1.1; Alkaline Phosphatase 82 U/L (46-116); Anion Gap 16.6; Aspartate Amino Transferase 29 U/L (15-37); BUN Creatinine Ratio 11.5; Bilirubin Direct 0.1 mg/dL (0.0-0.2); Bilirubin Total 0.4 mg/dL (0.2-1.0); Calcium 8.7 mg/dL (8.5-10.1); Carbon Dioxide 24.7 mmol/L (21.0-32.0); Chloride 102 mmol/L (98-107); Estimated GFR (African America 17 (>=60); Estimated GFR (Non-African Ame 14 (>=60); Globulin 3.5 g/dL; Glucose 94 mg/dL (74-106); Sodium 137 mmol/L (136-145); Total Protein 7.5 g/dL (6.4-8.2)
[2024-05-03 15:05] LABS: Potassium 6.3 mmol/L (3.5-5.1)
== END 2024-05-03 11:57 | disposition home or self-care (01) ==
LOC: LAB 12:02
PROVIDERS: PCP Nurse Practitioner Family
DX: S62.523A Displaced fracture of distal phalanx of unspecified thumb, initial encounter for closed fracture (principal); G90.511 Complex regional pain syndrome I of right upper limb; F34.1 Dysthymic disorder; S62.609A Fracture of unspecified phalanx of unspecified finger, initial encounter for closed fracture; F41.1 Generalized anxiety disorder; M75.41 Impingement syndrome of right shoulder; S61.210A Laceration without foreign body of right index finger without damage to nail, initial encounter; M19.041 Primary osteoarthritis, right hand; M65.321 Trigger finger, right index finger
CPT/HCPCS: 36415; 80053; 82248; 85025

== ENCOUNTER 2025-03-05 16:27 | Inpatient (IN) | payer MEDICARE, SELFPAY ==
[2025-03-05] VITALS (33 sets, daily range): BP systolic 128–152; BP diastolic 63–77; PULSE 53–121; TEMP 36.8–37.2; O2SAT 86–94; BMI 29.3; BMI 30.1
--- NOTE | 2025-03-05 16:45 | ECG_ITS ---
[facility] Test Date: 2025-03-05 Pat Name: VIDHYA REGALADO Department: Room: - Gender: Female Camera Mechanic: : 1940 Requested By: [id number] Order Number: [id number] Reading MD: JANNA ALTAMIRANO M.D. Measurements Intervals [place] Rate: 53 P: 60 SC: 210 QRS: -4 QRSD: 118 T: 15 QT: 444 QTc: 428 Interpretive Statements 1100 Sinus rhythm 2231 First degree AV block 2440 Incomplete right bundle branch block 8102 Low QRS voltage in chest leads 9150 abnormal ECG Compared to ECG 08/30/2020 17:27:03 First degree AV block now present Incomplete right bundle-branch block now present Electronically Signed On 03-05-2025 17:21:02 EDT by JANNA ALTAMIRANO M.D.
--- NOTE | 2025-03-05 16:54 | ED_ITS ---
HPI HPI - General Adult General Chief complaint: Recheck/Abnormal Lab/Rx Stated complaint: ABNORMAL LABS Time Seen by Provider: 03/05/25 16:29 Source: patient Mode of arrival: ambulance History of Present Illness HPI narrative: The patient is 84 years old female coming from home after she had a regular workup at home and found to have elevated potassium, patient mentioned also that she had a fall yesterday she tripped and fell hitting her head she did not pass out, she fell backwards She denies any acute complaint she mentioned that she have bilateral leg heaviness which is not new. Related Data Home Medications ?Medication ?Instructions ?Recorded ?Confirmed allopurinol 100 mg tablet mg 03/05/25 atenolol 25 mg tablet mg 03/05/25 buprenorphine 20 mcg/hour weekly 03/05/25 transdermal patch cyclobenzaprine 10 mg tablet mg 03/05/25 cyclobenzaprine 5 mg tablet mg 03/05/25 diclofenac sodium 1 % topical gel topical 03/05/25 donepezil 5 mg tablet mg 03/05/25 escitalopram oxalate 20 mg tablet mg 03/05/25 esomeprazole magnesium 20 mg mg 03/05/25 capsule,delayed release gabapentin 300 mg capsule mg 03/05/25 levothyroxine 50 mcg tablet mcg 03/05/25 lidocaine 4 % topical cream 03/05/25 metformin 500 mg tablet mg 03/05/25 pravastatin 10 mg tablet mg 03/05/25 risperidone 0.25 mg tablet mg 03/05/25 spironolactone 25 mg tablet mg 03/05/25 vitamin B12 DAILY 03/05/25 Allergies Allergy/AdvReac Type Severity Reaction Status Date / Time codeine Allergy dizzy Verified 03/05/25 17:21 latex Allergy Rash Verified 03/05/25 17:21 meperidine (From Demerol) Allergy hallucinati Verified 03/05/25 17:21 on Sulfa (Sulfonamide Allergy Rash Verified 03/05/25 17:21 Antibiotics) Opioid HPI Opioid Management Most Recent Opioid Data: No Data to Display Review of Systems ROS Status of ROS 10 or more systems reviewed and unremark able except as noted in history and below PFSH PFSH Social History Little interest or pleasure in doing things: several days Feeling down, depressed, or hopeless: not at all Exam Narrative Exam Narrative: Nurses notes and vital signs reviewed and patient is not hypoxic. General: Well-appearing and in no apparent distress. Skin: Warm, dry, no pallor noted. No rash. Head: Normocephalic, atraumatic. Neck: Supple, non-tender. Patient is wearing a soft neck collar Eye: Pupils are equal, round and EOMI. No scleral icterus. Ears, Nose, Mouth, and Throat: TM are clear, no nasal mucosal hypertrophy. Oral mucosa is moist, no posterior oropharynx erythema, uvula is mid-line Cardiovascular: Regular Rate and Rhythm without murmur, gallop or rub. Respiratory: No accessory muscle use or respiratory distress. Lungs are clear to auscultation, no wheezing, rales or rhonchi Chest Wall: Some anterior chest wall tenderness Back: No midline thoracic or lumbar vertebral tenderness. No CVA tenderness Musculoskeletal: normal ROM, no calf or popliteal tenderness, although the patient does have bilateral leg looks like purple but she does have a good anterior tibial pulse bilaterally and the feet are warm GI: Abdomen is soft, non-distended. Normal bowel sounds. No masses appreciated. No tenderness to palpation. No rebound, guarding, or rigidity noted. Neurological: A&O x4. No cranial nerve dysfunction observed. No truncal ataxia. Moves all extremities. Sensation intact. Psychiatric: Cooperative and interactive. Normal mood and affect. Constitutional Vital Signs, click to edit/add: Last Vital Signs Temp 99 F 03/05/25 16:32 Pulse 54 L 03/05/25 18:46 Resp 18 03/05/25 18:50 BP 128/68 03/05/25 18:46 Pulse Ox 91 L 03/05/25 18:50 O2 Del Method Room Air 03/05/25 16:32 Course Vital Signs Vital signs: Vital Signs Temperature 99 F 03/05/25 16:32 Pulse Rate 53 L 03/05/25 16:32 Respiratory Rate 18 03/05/25 16:32 Blood Pressure 152/68 H 03/05/25 16:32 Pulse Oximetry 94 L 03/05/25 16:32 Oxygen Delivery Method Room Air 03/05/25 16:32 Temperature 99 F 03/05/25 16:32 Pulse Rate 54 L 03/05/25 18:46 Respiratory Rate 18 03/05/25 18:50 Blood Pressure 128/68 03/05/25 18:46 Pulse Oximetry 91 L 03/05/25 18:50 Oxygen Delivery Method Room Air 03/05/25 16:32 Medical Decision Making MDM Narrative Medical decision making narrative: The patient EKG in the ER showing sinus rhythm with a heart rate of [address] elevation or depression The patient CAT scan of the head showed no acute pathology as well as CT of the cervical x-ray of the chest and CT of the abdomen pelvis This workup was ordered just because the patient discoloration of the foot which seems to be chronic but just to make sure we not missing any acute pathology The patient does have bilateral leg good pulses and she have no weakness, The patient blood workup showed that the patient potassium is 6.5 with no acute EKG changes that shows hyperkalemia the patient was started on Lokelma The plan is to give her Lokelma 3 times every 8 hours for 24 hours and repeat the potassium tomorrow but because of the patient's fragility and the fact that she lives by self she will not be able to come tomorrow the patient will be admitted for observation PT case discussed with TANNER Calvo and will be admitted under Dr Ball Lab Data Labs: Lab Results 03/05/25 Range/Units 17:38 WBC 9.0 (4.0-11.0) 10^3/uL RBC 4.06 L (4.20-5.40) 10^6/uL Hgb 11.9 L (12.0-16.0) g/dL Hct 36.9 (36.0-48.0) % MCV 90.9 (81.0-99.0) fL MCH 29.3 (26.7-34.0) pg MCHC 32.2 (29.9-35.2) g/dL RDW 14.9 (11.0-15.0) % Plt Count 231 (150-450) 10^3/uL MPV 10.6 (9.5-13.5) fL Neut % (Auto) 56.8 (43.0-75.0) % Lymph % (Auto) 31.8 (20.5-60.0) % Forest % (Auto) 8.1 (1.7-12.0) % Eos % (Auto) 2.1 (0.9-7.0) % Baso % (Auto) 0.6 (0.2-2.0) % Neut # (Auto) 5.1 (1.4-6.5) 10^3/uL Lymph # (Auto) 2.9 (1.2-3.8) 10^3/uL Forest # (Auto) 0.7 (0.3-0.8) 10^3/uL Eos # (Auto) 0.2 (0.0-0.7) 10^3/uL Baso # (Auto) 0.1 (0.0-0.1) 10^3/uL Abs Immat Gran (auto) 0.05 H (0.00-0.03) 10^3/uL Imm/Tot Granulo (auto) 0.6 H (0.0-0.5) % Sodium 137 (136-145) mmol/L Potassium 6.5 H* (3.5-5.1) mmol/L Chloride 103 (98-107) mmol/L Carbon Dioxide 28.1 (21.0-32.0) mmol/L Anion Gap 12.4 BUN 26.0 H (7.0-18.0) mg/dL Creatinine 2.24 H (0.55-1.02) mg/dL Est GFR ( Amer) 25 L (>=60 mL/min/1.73m^2) Est GFR (Non-Af Amer) 21 L (>=60 mL/min/1.73m^2) BUN/Creatinine Ratio 11.6 Glucose 91 (74-106) mg/dL Calcium 9.2 (8.5-10.1) mg/dL Total Bilirubin 0.3 (0.2-1.0) mg/dL AST 16 (15-37) U/L ALT 18 (14-59) U/L Alkaline Phosphatase 85 (46-116) U/L Total Protein 7.4 (6.4-8.2) g/dL Albumin 3.9 (3.4-5.0) g/dL Globulin 3.5 g/dL Albumin/Globulin Ratio 1.1 Discharge Plan Discharge Chief Complaint: Recheck/Abnormal Lab/Rx Clinical Impression: Hyperkalemia, Fall Patient Disposition: Admitted as Observation Time of Disposition Decision: 18:55
[2025-03-05 17:49] LABS: Basophils Absolute Auto 0.1 10^3/uL (0.0-0.1); Basophils Percent Auto 0.6 % (0.2-2.0); Eosinophils Absolute Auto 0.2 10^3/uL (0.0-0.7); Eosinophils Percent Auto 2.1 % (0.9-7.0); Hematocrit 36.9 % (36.0-48.0); Hemoglobin 11.9 g/dL (12.0-16.0); Immature Granulocytes Abs Auto 0.05 10^3/uL (0.00-0.03); Immature Granulocytes Pct Auto 0.6 % (0.0-0.5); Lymphocytes Absolute Auto 2.9 10^3/uL (1.2-3.8); Lymphocytes Percent Auto 31.8 % (20.5-60.0); Mean Corpuscular HGB Conc 32.2 g/dL (29.9-35.2); Mean Corpuscular Hemoglobin 29.3 pg (26.7-34.0); Mean Corpuscular Volume 90.9 fL (81.0-99.0); Mean Platelet Volume 10.6 fL (9.5-13.5); Monocytes Absolute Auto 0.7 10^3/uL (0.3-0.8); Monocytes Percent Auto 8.1 % (1.7-12.0); Neutrophils Absolute Auto 5.1 10^3/uL (1.4-6.5); Neutrophils Percent Auto 56.8 % (43.0-75.0); Platelet Count 231 10^3/uL (150-450); Red Blood Count 4.06 10^6/uL (4.20-5.40); Red Cell Distribution Width 14.9 % (11.0-15.0)
[2025-03-05 17:59] LABS: Alanine Aminotransferase 18 U/L (14-59); Albumin Globulin Ratio 1.1; Albumin Level 3.9 g/dL (3.4-5.0); Alkaline Phosphatase 85 U/L (46-116); Anion Gap 12.4; Aspartate Amino Transferase 16 U/L (15-37); BUN Creatinine Ratio 11.6; Bilirubin Total 0.3 mg/dL (0.2-1.0); Calcium 9.2 mg/dL (8.5-10.1); Carbon Dioxide 28.1 mmol/L (21.0-32.0); Chloride 103 mmol/L (98-107); Estimated GFR (African America 25 (>=60 mL/min/1.73m^2); Estimated GFR (Non-African Ame 21 (>=60 mL/min/1.73m^2); Globulin 3.5 g/dL; Glucose 91 mg/dL (74-106); Sodium 137 mmol/L (136-145); Total Protein 7.4 g/dL (6.4-8.2)
[2025-03-05 18:02] LABS: Potassium 6.5 mmol/L (3.5-5.1)
[2025-03-05] MEDS: SODIUM ZIRCONIUM CYCLOSILICATE 10 GM POWD.PACK PO (19:03)
[2025-03-05] MEDS: CYCLOBENZAPRINE HCL 10 MG TABLET PO (22:29)
[2025-03-05] MEDS: ATENOLOL 25 MG TABLET 12.5 MG PO (22:29)
[2025-03-05] MEDS: PANTOPRAZOLE SODIUM 40 MG TABLET.DR PO (22:30)
[2025-03-05] MEDS: ESCITALOPRAM 10 MG TABLET 20 MG PO (22:30)
[2025-03-05] MEDS: GABAPENTIN 300 MG CAPSULE PO (22:30)
[2025-03-05] MEDS: ALLOPURINOL 100 MG TABLET PO (22:30)
[2025-03-05] MEDS: DONEPEZIL HCL 5 MG TABLET PO (22:30)
[2025-03-05 23:39] LABS: Anion Gap 14.8; BUN Creatinine Ratio 12.1; Calcium 8.6 mg/dL (8.5-10.1); Carbon Dioxide 26.4 mmol/L (21.0-32.0); Chloride 103 mmol/L (98-107); Estimated GFR (African America 25 (>=60 mL/min/1.73m^2); Estimated GFR (Non-African Ame 21 (>=60 mL/min/1.73m^2); Glucose 196 mg/dL (74-106); Potassium 5.2 mmol/L (3.5-5.1); Sodium 139 mmol/L (136-145)
[2025-03-06] VITALS (15 sets, daily range): BP systolic 135–169; BP diastolic 70–94; PULSE 49–90; TEMP 36.3–36.7; O2SAT 91–93
[2025-03-06] MEDS: LEVOTHYROXINE SODIUM 25 MCG TABLET 50 MCG PO (06:44)
[2025-03-06] MEDS: GABAPENTIN 300 MG CAPSULE PO ×3 (06:44→21:51)
[2025-03-06] MEDS: ACETAMINOPHEN 325 MG TABLET 650 MG PO (06:44)
[2025-03-06 06:50] LABS: Hematocrit 33.9 % (36.0-48.0); Hemoglobin 10.8 g/dL (12.0-16.0); Mean Corpuscular HGB Conc 31.9 g/dL (29.9-35.2); Mean Corpuscular Volume 90.9 fL (81.0-99.0); Mean Platelet Volume 11.2 fL (9.5-13.5); Platelet Count 211 10^3/uL (150-450); Red Blood Count 3.73 10^6/uL (4.20-5.40); Red Cell Distribution Width 15.1 % (11.0-15.0); White Blood Count 7.5 10^3/uL (4.0-11.0)
[2025-03-06 07:01] LABS: Anion Gap 14.4; Calcium 8.9 mg/dL (8.5-10.1); Chloride 104 mmol/L (98-107); Estimated GFR (African America 29 (>=60 mL/min/1.73m^2); Estimated GFR (Non-African Ame 24 (>=60 mL/min/1.73m^2); Glucose 82 mg/dL (74-106); Potassium 5.4 mmol/L (3.5-5.1); Sodium 138 mmol/L (136-145)
[2025-03-06 07:49] LABS: Magnesium 2.1 mg/dL (1.8-2.4)
--- NOTE | 2025-03-06 07:52 | P.HP_ITS ---
HPI H&P: HPI History of Present Illness Chief complaint: ABNORMAL LABS, HYPERKALEMIA Narrative: Patient with mechanical fall x 2, presented to the emergency room, CT workup for the fall was unremarkable no fractures, CT head normal, found on workup. Patient with potassium of over 6, she was given 1 dose of Lokelma, with the falls and the elevated potassium she was admitted to observation overnight When I saw patient up in the medical surgical floor, resting comfortably bed, she has a soft collar on which she wears chronically since having neck surgery years ago, no other specific complaints, strength in upper and lower extremities is normal to her but she has not been out of bed yet Opioid HPI Opioid Management Most Recent Pain and Opioid Data: Last Pain Scale 8 Today, 06:44 Last Pain Assessment 03/05/25, 21:00 Last MAR Pain Assessment Today, 06:44 Last ORT Total Score 0 03/05/25, 20:51 Last ORT Risk Category Low Risk 03/05/25, 20:51 Review of Systems ROS Status of ROS 10 or more systems reviewed and unremark able except as noted in history and below [facility] Medical History (Updated 03/05/25 @ 21:25 by Jaz Ravi, HENRY) Peripheral vascular disease ?I73.9 - Peripheral vascular disease, unspecified (ICD-10) Nerve damage ?T14.8XXA - Other injury of unspecified body region, initial encounter (ICD- 10) HTN (hypertension) ?I10 - Essential (primary) hypertension (ICD-10) Diabetes ?E11.9 - Type 2 diabetes mellitus without complications (ICD-10) Surgical History (Updated 03/05/25 @ 21:25 by Jaz Ravi, HENRY) History of cholecystectomy ?Z90.49 - Acquired absence of other specified parts of digestive tract (ICD- 10) H/O knee surgery ?Z98.890 - Other specified postprocedural states (ICD-10) History of hysterectomy ?Z90.710 - Acquired absence of both cervix and uterus (ICD-10) Previous back surgery ?Z98.890 - Other specified postprocedural states (ICD-10) H/O neck surgery ?Z98.890 - Other specified postprocedural states (ICD-10) Family History (Updated 03/05/25 @ 21:15 by Jaz Ravi, HENRY) Mother Family history of cancer Other Family history of CHF (congestive heart failure) Social History (Updated 03/05/25 @ 21:15 by Jaz Ravi RN) Within the past year, how often did you have a drink containing alcohol: never Score interpretation: A score less than 3 is consistent with normal alcohol consumption. Smoking status: Former smoker Non-prescribed substance use: denies use Highest level of school completed/degree received: high school graduate Are you now , , , , never or living with a partner: In a typical week, how many times do you talk on the telephone with family, friends, or neighbors: twice per week How often do you get together with friends or relatives: twice per week Little interest or pleasure in doing things: not at all Feeling down, depressed, or hopeless: not at all Feel stressed/tense/nervous/anxious/difficulty sleeping: not at all Do you think of yourself as: straight/heterosexual Gender Identity: female Meds Home Medications and Allergies Home Medications ?Medication ?Instructions ?Recorded ?Confirmed ?Type allopurinol 100 mg tablet 100 mg PO QDAY 03/05/2502/07 History atenolol 25 mg tablet 12.5 mg PO Q24H 03/05/25 History buprenorphine 20 mcg/hour weekly 1 patch transdermal Q 7D 03/05/25 03/05/25 History transdermal patch cyclobenzaprine 10 mg tablet 10 mg PO .qhs 03/05/25 History cyclobenzaprine 5 mg tablet 5 mg PO Q12H 03/05/2502/07 History diclofenac sodium 1 % topical gel 4 g topical .q6 PRN pain 03/05/25 03/05/25 History donepezil 5 mg tablet 5 mg PO .qhs 03/05/25 History escitalopram oxalate 20 mg tablet 20 mg PO .q12 03/05/25 History esomeprazole magnesium 20 mg 20 mg PO Q24H 03/05/25 History capsule,delayed release gabapentin 300 mg capsule 300 mg PO Q8H 03/05/2503/05 History levothyroxine 50 mcg tablet 50 mcg PO QAM 03/05/25 History lidocaine 4 % topical cream 2.5 g topical Q6H PRN pain 03/05/25 03/05/25 History metformin 500 mg tablet 500 mg PO QDAY 03/05/2502/07 History pravastatin 10 mg tablet 10 mg PO QDAY 03/05/2503/05 History risperidone 0.25 mg tablet 0.5 mg PO QDAY 03/05/25 History spironolactone 25 mg tablet 25 mg PO QDAY 03/05/25 History vitamin B12 1 tab PO DAILY 03/05/2502/07 History Allergies Allergy/AdvReac Type Severity Reaction Status Date / Time codeine Allergy dizzy Verified 03/05/25 17:21 latex Allergy Rash Verified 03/05/25 17:21 meperidine (From Demerol) Allergy hallucinati Verified 03/05/25 17:21 on Sulfa (Sulfonamide Allergy Rash Verified 03/05/25 17:21 Antibiotics) Exam Constitutional Vital Signs, click to edit/add: Last Vital Signs Temp 97.5 F L 03/06/25 07:00 Pulse 56 L 03/06/25 07:00 Resp 18 03/06/25 07:00 BP 166/74 H 03/06/25 07:00 Pulse Ox 92 L 03/06/25 07:00 O2 Del Method Room Air 03/06/25 07:00 Results Labs Labs: Short CBC 03/05/25 03/06/25 Range/Units 17:38 05:54 WBC 9.0 7.5 (4.0-11.0) 10^3/uL Hgb 11.9 L 10.8 L (12.0-16.0) g/dL Hct 36.9 33.9 L (36.0-48.0) % Plt Count 231 211 (150-450) 10^3/uL BMP 03/05/25 03/05/25 03/06/25 17:38 23:00 05:54 Sodium 137 139 138 Potassium 6.5 H* 5.2 H 5.4 H Chloride 103 103 104 Carbon Dioxide 28.1 26.4 25.0 BUN 26.0 H 27.0 H 26.0 H Creatinine 2.24 H 2.23 H 2.00 H Glucose 91 196 H 82 Calcium 9.2 8.6 8.9 Liver Function 04/28/25 Range/Units 17:38 Total Bilirubin 0.3 (0.2-1.0) mg/dL AST 16 (15-37) U/L ALT 18 (14-59) U/L Alkaline Phosphatase 85 (46-116) U/L Albumin 3.9 (3.4-5.0) g/dL Assessment and Plan Assessment and Plan (1) Fall: (2) Hyperkalemia: (3) HTN (hypertension): (4) Diabetes: (5) H/O neck surgery: Plan Admission findings: Tachycardia admission and bradycardia in the 50s, uncontrolled hypertension admission but improved this morning, hyperkalemia, iron deficiency anemia Mechanical fall-patient denies syncope, just to trip and fall, happened twice, no loss of consciousness, no chest pain no shortness of breath-workup negative so far, PT OT to work with patient, patient currently does not want to go to rehab will see how she ambulates Hyperkalemia-likely related to the spironolactone, will stop that as an outp atient, give 1 more dose of medication to bring her potassium down she was given Lokelma in the ER but her potassium is higher over the last evaluation, give 1 dose of Kayexalate if she is constipated anyway Iron deficiency anemia and anemia of chronic kidney disease-monitor as an outpatient Chronic kidney disease stage III-monitor as an outpatient-creatinine is improved this morning to baseline of 2 Chronic opioid use secondary to cervical disc disease status post surgery- maintain home medications Alzheimer's type dementia-continue with current medications Depression-continue current medications GERD continue with current medications Hypothyroidism continue continue with current medications Diabetes mellitus-insulin sliding scale Hypercholesterolemia continue with home medications Admission status: Patient admitted to observation status post fall x 2, PT OT to work with patient today, potassium so far although elevated from previous levels improved from a slightly admission numbers, maintain current observational status. If medically necessary treatment does span 2 midnights i.e. her potassium goes higher despite medication, or unable to ambulate she will be changed to inpatient status
[2025-03-06] MEDS: risperiDONE 0.5 MG TABLET PO (08:49)
[2025-03-06] MEDS: ESCITALOPRAM 10 MG TABLET 20 MG PO ×2 (08:49→21:51)
[2025-03-06] MEDS: SODIUM POLYSTYRENE SULFON 15 GM/60 ML ORAL.SUSP KAYEXALATE 30 GM PO (08:50)
[2025-03-06] MEDS: CYCLOBENZAPRINE HCL 10 MG TABLET 5 MG PO ×2 (08:50→13:42)
[2025-03-06] MEDS: ATENOLOL 25 MG TABLET 12.5 MG PO (08:50)
[2025-03-06] MEDS: ALLOPURINOL 100 MG TABLET PO (08:50)
[2025-03-06] MEDS: ATORVASTATIN CALCIUM 10 MG TABLET PO (09:02)
[2025-03-06 10:29] LABS: Anion Gap 13.6; BUN Creatinine Ratio 10.9; Calcium 8.9 mg/dL (8.5-10.1); Chloride 102 mmol/L (98-107); Estimated GFR (African America 23 (>=60 mL/min/1.73m^2); Estimated GFR (Non-African Ame 19 (>=60 mL/min/1.73m^2); Glucose 115 mg/dL (74-106); Potassium 5.6 mmol/L (3.5-5.1); Sodium 137 mmol/L (136-145)
--- NOTE | 2025-03-06 10:54 | SWNOTE1 ---
Medicare Outpatient Observation Notice reviewed and discussed with patient. Pt. verbalized understanding and signed the form. Original given to patient and copy placed in patient?s chart.
--- NOTE | 2025-03-06 11:10 | SWNOTE1 ---
SW met with pt to discuss dc needs. Pt lives at home with her daughter. It is a one story home and has a ramp to get in. Pt uses a walker at home. SW spoke with her about recommedations of HH services. Pt voiced she did have someone coming in, but she is unsure if she still has them. SW provided her a list of HH companies and [facility], but advised SW to call Sofi Srivastava office to verify. SW did advise pt that PT will be in to see her as well and we will see what there recommendations are. SW advised that there is a chance rehab may come up at a group home faciltiy. She voiced she does not want to go to rehab. SW to stop back after PT works with pt. TONEY called Sofi Srivastava's office and pt is current with [facility]. TONEY called [facility] and verified. TONEY had message from Garo in PT and he is recommending SNF. SW to speak with pt again about rehab.
[2025-03-06 11:18] LABS: Glucometer 118 mg/dL (74-106)
--- NOTE | 2025-03-06 11:56 | SWNOTE1 ---
SW had a conversation with pt and pt's daughter was on phone as well. TOENY explained to pt that PT did recommend SNF for a short time to get stronger. Pt did voice she felt like rehab would be a good idea and that she did struggle with therapy some. Daughter, Clyde, is in agreement with what patient decides. Clyde lives in [place] and has some medical issues and spoke to her mom about going somewhere in [place]. TONEY provided names of facilities in [place] and list from Medicare.gov. Pt and daughter in agreement and would like SW to reach out to [facility]. If [facility] does not have openings, then SW to call daughter back. TONEY advised daughter and pt that pt is a precert and we will have to wait for insurance to either approve or deny pt to go skilled. They voiced understanding. SW updated nurse and messaged doctor. Referral sent to [facility]. Referral included face sheet, ED note, H&P, provider notes, case management report, nursing notes, diagnostic imaging, med list, and PT/OT notes.
--- NOTE | 2025-03-06 12:54 | SWNOTE1 ---
[facility] is able to accept and they are starting precert. SW faxed over updated H&P with addendum added to Lacey at [facility].
--- NOTE | 2025-03-06 13:36 | SWNOTE1 ---
Important Message from Medicare reviewed and discussed with patient. Pt. verbalized understanding and signed the form. Original given to patient and copy placed in patient?s chart.
--- NOTE | 2025-03-06 13:38 | SWNOTE1 ---
SW let pt know that [facility] has accepted and submitted precert to insurance.
[2025-03-06] MEDS: LACTATED RINGER'S SOLUTION 1,000 ML 250 ML IV (13:41)
[2025-03-06] MEDS: ACETAMINOPHEN 500 MG TABLET 1000 MG PO (13:41)
[2025-03-06 14:14] LABS: BUN Creatinine Ratio 10.5; Calcium 9.2 mg/dL (8.5-10.1); Carbon Dioxide 28.6 mmol/L (21.0-32.0); Chloride 101 mmol/L (98-107); Estimated GFR (African America 23 (>=60 mL/min/1.73m^2); Estimated GFR (Non-African Ame 19 (>=60 mL/min/1.73m^2); Glucose 129 mg/dL (74-106); Potassium 5.6 mmol/L (3.5-5.1); Sodium 138 mmol/L (136-145)
--- NOTE | 2025-03-06 14:29 | SWNOTE1 ---
TONEY completed [facility] online. SW also called daughter and updated her that [facility] has started precert.
[2025-03-06 17:05] LABS: Glucometer 114 mg/dL (74-106)
[2025-03-06 20:17] LABS: Glucometer 117 mg/dL (74-106)
[2025-03-06 21:34] LABS: BUN Creatinine Ratio 11.4; Calcium 8.6 mg/dL (8.5-10.1); Carbon Dioxide 28.1 mmol/L (21.0-32.0); Chloride 102 mmol/L (98-107); Estimated GFR (African America 25 (>=60 mL/min/1.73m^2); Estimated GFR (Non-African Ame 20 (>=60 mL/min/1.73m^2); Glucose 119 mg/dL (74-106); Potassium 5.1 mmol/L (3.5-5.1); Sodium 140 mmol/L (136-145)
[2025-03-06] MEDS: PANTOPRAZOLE SODIUM 40 MG TABLET.DR PO (21:50)
[2025-03-06] MEDS: DONEPEZIL HCL 5 MG TABLET PO (21:51)
[2025-03-06] MEDS: CYCLOBENZAPRINE HCL 10 MG TABLET PO (21:51)
[2025-03-07] VITALS (17 sets, daily range): BP systolic 150–169; BP diastolic 75–87; PULSE 56–72; TEMP 36.3–36.8; O2SAT 91–98
[2025-03-07] MEDS: GABAPENTIN 300 MG CAPSULE PO ×3 (05:40→21:44)
[2025-03-07] MEDS: LEVOTHYROXINE SODIUM 25 MCG TABLET 50 MCG PO (05:40)
[2025-03-07 07:04] LABS: Basophils Absolute Auto 0.1 10^3/uL (0.0-0.1); Eosinophils Absolute Auto 0.2 10^3/uL (0.0-0.7); Eosinophils Percent Auto 2.3 % (0.9-7.0); Hematocrit 33.5 % (36.0-48.0); Hemoglobin 10.7 g/dL (12.0-16.0); Immature Granulocytes Abs Auto 0.04 10^3/uL (0.00-0.03); Immature Granulocytes Pct Auto 0.6 % (0.0-0.5); Lymphocytes Absolute Auto 2.4 10^3/uL (1.2-3.8); Lymphocytes Percent Auto 32.4 % (20.5-60.0); Mean Corpuscular HGB Conc 31.9 g/dL (29.9-35.2); Mean Corpuscular Hemoglobin 29.5 pg (26.7-34.0); Mean Corpuscular Volume 92.3 fL (81.0-99.0); Mean Platelet Volume 10.3 fL (9.5-13.5); Monocytes Absolute Auto 0.9 10^3/uL (0.3-0.8); Neutrophils Absolute Auto 3.8 10^3/uL (1.4-6.5); Neutrophils Percent Auto 51.7 % (43.0-75.0); Platelet Count 200 10^3/uL (150-450); Red Blood Count 3.63 10^6/uL (4.20-5.40); Red Cell Distribution Width 15.2 % (11.0-15.0); White Blood Count 7.3 10^3/uL (4.0-11.0)
[2025-03-07 07:12] LABS: Anion Gap 11.2; BUN Creatinine Ratio 13.6; Carbon Dioxide 30.5 mmol/L (21.0-32.0); Chloride 103 mmol/L (98-107); Estimated GFR (African America 27 (>=60 mL/min/1.73m^2); Estimated GFR (Non-African Ame 22 (>=60 mL/min/1.73m^2); Glucose 116 mg/dL (74-106); Potassium 4.7 mmol/L (3.5-5.1); Sodium 140 mmol/L (136-145)
--- NOTE | 2025-03-07 08:02 | P.PN_ITS ---
Progress Note: Subjective Subjective Interval history: Patient does feel better today, still with pain in her neck but that is her chronic Exam Constitutional Vital Signs, click to edit/add: Last Vital Signs Temp 97.4 F L 03/07/25 06:28 Pulse 68 03/07/25 06:28 Resp 18 03/07/25 06:28 BP 169/87 H 03/07/25 06:28 Pulse Ox 91 L 03/07/25 06:28 O2 Del Method Room Air 03/07/25 06:28 Documenting provider has reviewed patient's vital signs: yes Common normals: no apparent distress Neck & C-Spine Common normals: negative for full ROM (Soft collar in place-chronic) Chest Common normals: inspection of chest normal Respiratory Common normals: normal respiratory effort and no retractions Cardio Common normals: regular rate, regular rhythm, no gallops, no clicks and no murmurs GI Common normals: Normal to inspection, nondistended, normoactive bowel sounds present Extremity Common normals: normal to inspection, full ROM and no clubbing, cyanosis or edema Progress Note: Objective Labs Labs: Short CBC 03/07/25 Range/Units 06:57 WBC 7.3 (4.0-11.0) 10^3/uL Hgb 10.7 L (12.0-16.0) g/dL Hct 33.5 L (36.0-48.0) % Plt Count 200 (150-450) 10^3/uL BMP 03/06/25 03/06/25 03/06/25 10:14 14:00 20:40 Sodium 137 138 140 Potassium 5.6 H 5.6 H 5.1 Chloride 102 101 102 Carbon Dioxide 27.0 28.6 28.1 BUN 26.0 H 26.0 H 26.0 H Creatinine 2.38 H 2.47 H 2.28 H Glucose 115 H 129 H 119 H Calcium 8.9 9.2 8.6 03/07/25 06:57 Sodium 140 Potassium 4.7 Chloride 103 Carbon Dioxide 30.5 BUN 29.0 H Creatinine 2.13 H Glucose 116 H Calcium 9.0 Progress Note: A&P Assessment and Plan (1) Fall: (2) Hyperkalemia: (3) HTN (hypertension): (4) Diabetes: (5) H/O neck surgery: Plan Admission findings: Tachycardia admission and bradycardia in the 50s, uncontrolled hypertension admission but improved this morning, hyperkalemia, iron deficiency anemia Mechanical fall-patient denies syncope, just to trip and fall, happened twice, no loss of consciousness, no chest pain no shortness of breath-workup negative so far, PT OT to work with patient, patient currently does not want to go to rehab will see how she ambulates Hyperkalemia-hyperkalemia not responding to initial treatment and factor was elevating throughout the course of the day yesterday, finally back down to normal today, continue to monitor daily Iron deficiency anemia and anemia of chronic kidney disease-monitor as an outpatient Chronic kidney disease stage III-monitor as an outpatient-stable at her baseline 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 Because of this she was changed to inpatient status with medically necessary treatment spanning 2 midnights. Maintain inpatient status ?
[2025-03-07] MEDS: risperiDONE 0.5 MG TABLET PO (08:56)
[2025-03-07] MEDS: CYCLOBENZAPRINE HCL 10 MG TABLET 5 MG PO ×2 (08:57→14:13)
[2025-03-07] MEDS: ESCITALOPRAM 10 MG TABLET 20 MG PO ×2 (08:57→21:44)
[2025-03-07] MEDS: ATORVASTATIN CALCIUM 10 MG TABLET PO (08:58)
[2025-03-07] MEDS: ATENOLOL 25 MG TABLET PO (08:58)
[2025-03-07] MEDS: ALLOPURINOL 100 MG TABLET PO (08:58)
[2025-03-07 11:23] LABS: Glucometer 107 mg/dL (74-106)
--- NOTE | 2025-03-07 13:04 | OT.DAILY ---
Occupational Therapy Daily Note OT Inpatient Daily Visit Note Start: 03/06/25 09:29 Freq: Status: Active Protocol: Document 03/07/25 12:59 [id number] (Rec: 03/07/25 13:04 [id number]) OT Visit Details Time In/Time Out Time In 12:40 Time Out 12:56 OT Treatment Plan Subjective Subjective Pt awake and AAOx4. Reports neck pain 7/10 but agreeable to participate. Objective Objective Completed eac-fp-idixn transfer with recliner CGA for LOB, using walker. No LOB or fatigue walking to bathroom. Completed oral hygiene at sink while standing within base of walker. 1-3 cues to maintain appropriate posture while standing at sink. Stand-to- sit transfer to chair CGA with 1-3 VCs for safety techniques. Assessment Assessment Pt tolerated treatment well. Neck pain exacerbated with neck extension, slight increase in discomfort follow self-care tasks. Continue OT POC. OT Community Assistant Timed Codes Self-Shelter 16 Management minutes ( minutes) Self-Shelter 1 Management units
--- NOTE | 2025-03-07 13:43 | PT.DAILY ---
Physical Therapy Daily Note PT Daily Note/Assess Start: 03/06/25 11:18 Freq: Status: Active Protocol: Document 03/07/25 01:15 DERRICK (Rec: 03/07/25 13:43 DERRICK [id number]) Physical Therapy Daily Note/Assessment Time In/Time Out Time In 01:15 Time Out 01:32 Subjective Subjective Patient reports feeling good today, was just up with OT but agreeable to walk and seated exercises. Therapeutic Exercise Time Therapeutic Exercise 5 Minutes (minutes) Therapeutic Exercise 0 Units Therapeutic Exercise Treatment Therapeutic Exercise Seated Exercises: Treatment Marches x 10 LAQ x 10 HR/TR x 10 Hip abd x 10 Add squeezes x 10 Therapeutic Activity Time Therapeutic Activity 12 Minutes (minutes) Therapeutic Activity 1 Units Therapeutic Activity Treatment Chair Transfer Contact Guard Assist Ability Therapeutic Activity Patient ambulates 54 feet x 2 with RW and CGA for Comments safety. Patient demonstrates decreased step length with fatigue and mild SOB after ambulation. Requires short seated RB before second trial with quick recovery from SOB. Total Physical Therapy Time Total Therapy 17 Minutes Total Physical 1 Therapy Units Summary Daily Note Summary Patient demonstrates improved distance with ambulation to 54 feet x 2 with RW CGA. Seated RB required in between trials due to increased fatigue and SOB. Patient is then able to complete seated exercise after short rest break post ambulation. Patient recovers quickly from SOB and fatigue. Patient in chair with call light in reach and all needs met post treatment. Recommend SNF [place] to continue to improve B LE strength and increase endurance in order to return to PLOF.
[2025-03-07 14:49] LABS: Bilirubin Urine NEGATIVE (NEGATIVE); Blood Urine NEGATIVE (NEGATIVE); Clarity Urine CLEAR (CLEAR); Color Urine LT. YELLOW (YELLOW); Glucose Urine UA NEGATIVE (NEGATIVE); Ketones Urine NEGATIVE (NEGATIVE); Leukocyte Esterase Urine NEGATIVE (NEGATIVE); Nitrite Urine NEGATIVE (NEGATIVE); Protein Urine NEGATIVE (NEG/TRACE); Specific Gravity Urine 1.015 (1.005-1.025); Urobilinogen Urine 0.2 EU/dL (0.2-1.0)
[2025-03-07 14:58] LABS: Bacteria Urine NONE SEEN #/HPF (NONE SEEN); Cast Seen? NONE SEEN #/LPF (NONE SEEN); Crystals Seen? None Seen #/HPF (None Seen); Mucus Urine NONE SEEN (NONE SEEN); RBC Urine NONE SEEN #/HPF (0-2); Squamous Epithelial Cell Urine RARE #/LPF (NONE/RARE); WBC Urine 0-2 #/HPF (NONE SEEN)
[2025-03-07 14:59] LABS: Urine Culture Indicated NO
--- NOTE | 2025-03-07 15:03 | SWNOTE1 ---
TONEY faxed PT/Ot updates, physician note, labs, vitals, and nursing notes to Kristy at . She sent message back that precert is still pending. TONEY spoke to daughter, Clyde, and let her know precert still pending.
[2025-03-07 16:34] LABS: Glucometer 149 mg/dL (74-106)
[2025-03-07] MEDS: PANTOPRAZOLE SODIUM 40 MG TABLET.DR PO (21:44)
[2025-03-07] MEDS: DONEPEZIL HCL 5 MG TABLET PO (21:44)
[2025-03-07] MEDS: CYCLOBENZAPRINE HCL 10 MG TABLET PO (21:44)
[2025-03-07] MEDS: DICLOFENAC SODIUM 1% 100 GM TUBE TOPICAL (21:45)
[2025-03-07 21:55] LABS: Glucometer 128 mg/dL (74-106)
[2025-03-08] VITALS (12 sets, daily range): BP systolic 134–169; BP diastolic 69–76; PULSE 50–65; TEMP 36.4–36.7; O2SAT 90–96
[2025-03-08] MEDS: LEVOTHYROXINE SODIUM 25 MCG TABLET 50 MCG PO (05:42)
[2025-03-08] MEDS: GABAPENTIN 300 MG CAPSULE PO ×2 (05:43→15:24)
[2025-03-08 05:52] LABS: Anion Gap 9.5; BUN Creatinine Ratio 16.2; Calcium 9.2 mg/dL (8.5-10.1); Carbon Dioxide 29.8 mmol/L (21.0-32.0); Chloride 104 mmol/L (98-107); Estimated GFR (African America 29 (>=60 mL/min/1.73m^2); Estimated GFR (Non-African Ame 24 (>=60 mL/min/1.73m^2); Glucose 117 mg/dL (74-106); Potassium 4.3 mmol/L (3.5-5.1); Sodium 139 mmol/L (136-145)
--- NOTE | 2025-03-08 07:25 | P.PN_ITS ---
Progress Note: Subjective Subjective Interval history: Neck pain better today, still difficulty ambulating, shortness of breath significant requiring breaks Exam Constitutional Vital Signs, click to edit/add: Last Vital Signs Temp 97.5 F L 03/08/25 04:00 Pulse 58 L 03/08/25 06:00 Resp 18 03/08/25 04:00 BP 169/76 H 03/08/25 04:00 Pulse Ox 96 03/08/25 04:00 O2 Del Method Room Air 03/08/25 04:00 Documenting provider has reviewed patient's vital signs: yes Common normals: no apparent distress Neck & C-Spine Common normals: negative for full ROM (Soft collar in place-chronic) Respiratory Common normals: normal respiratory effort and clear to auscultation bilaterally Cardio Common normals: regular rate, regular rhythm, S1 normal heart sound and S2 normal heart sound GI Common normals: Normal to inspection, nondistended, normoactive bowel sounds present, soft to palpation, non-tender and no hepatosplenomegaly Extremity Common normals: normal to inspection, full ROM, normal capillary refill and no clubbing, cyanosis or edema Progress Note: Objective Labs Labs: [facility] 03/08/25 05:12 Sodium 139 Potassium 4.3 Chloride 104 Carbon Dioxide 29.8 BUN 32.0 H Creatinine 1.97 H Glucose 117 H Calcium 9.2 Urine 03/07/25 Range/Units 12:00 Urine Color Lt. yellow (YELLOW) Urine Clarity Clear (CLEAR) Urine pH 6.0 (5.0-9.0) Ur Specific [place] 1.015 (1.005-1.025) Urine Protein Negative (NEG/TRACE) mg/dL Urine Glucose (UA) Negative (NEGATIVE) mg/dL Progress Note: A&P Assessment and Plan (1) Fall: (2) Hyperkalemia: (3) HTN (hypertension): (4) Diabetes: (5) H/O neck surgery: Plan Admission findings: Tachycardia admission and bradycardia in the 50s, uncontrolled hypertension admission but improved this morning, hyperkalemia, iron deficiency anemia Mechanical fall-patient denies syncope, just to trip and fall, happened twice, no loss of consciousness, no chest pain no shortness of breath-continue with physical therapy Hyperkalemia-resolved, maintain current medications, avoid Aldactone in the future Iron deficiency anemia and anemia of chronic kidney disease-monitor as an outpatient Chronic kidney disease stage III-improved to baseline today 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 Because of this she was changed to inpatient status with medically necessary treatment spanning 2 midnights. Maintain inpatient status, stable for rehab ?
[2025-03-08 07:33] LABS: Glucometer 103 mg/dL (74-106)
[2025-03-08] MEDS: ALLOPURINOL 100 MG TABLET PO (09:14)
[2025-03-08] MEDS: ACETAMINOPHEN 500 MG TABLET 1000 MG PO ×2 (09:15→16:19)
[2025-03-08] MEDS: ATENOLOL 25 MG TABLET 50 MG PO (09:15)
[2025-03-08] MEDS: ATORVASTATIN CALCIUM 10 MG TABLET PO (09:15)
[2025-03-08] MEDS: ESCITALOPRAM 10 MG TABLET 20 MG PO (09:15)
[2025-03-08] MEDS: CYCLOBENZAPRINE HCL 10 MG TABLET 5 MG PO ×2 (09:16→15:24)
[2025-03-08] MEDS: risperiDONE 0.5 MG TABLET PO (09:17)
--- NOTE | 2025-03-08 09:25 | SWNOTE1 ---
TONEY received an email and insurance is requesting peer to peer to be completed by [facility]. TONEY secured text Dr. Adkins the information.
--- NOTE | 2025-03-08 09:55 | P.DS_ITS ---
DS: Providers Provider Date of admission: 03/06/25 12:08 Primary care physician: STACIA KELLER Consults: 03/06/25 07:35 Occupational Therapy Eval and Treat Routine Reason for consultation: Only if needed for Rehab Has provider been notified: No Physical Therapy Eval and Treat Routine Reason for consultation: Eval and Treat Has provider been notified: No 03/06/25 08:03 Physical Therapy Eval and Treat Routine Reason for consultation: if can ambulate in [place] safely will d/c to home DS: Diagnosis Discharge Diagnosis (1) Fall: (2) Hyperkalemia: (3) HTN (hypertension): (4) Diabetes: (5) H/O neck surgery: Plan Admission findings: Tachycardia admission and bradycardia in the 50s, uncontrolled hypertension admission but improved this morning, hyperkalemia, iron deficiency anemia Mechanical fall-patient denies syncope, just to trip and fall, happened twice, no loss of consciousness, no chest pain no shortness of breath-continue with physical therapy Hyperkalemia-resolved, maintain current medications, avoid Aldactone in the future Iron deficiency anemia and anemia of chronic kidney disease-monitor as an outpatient Chronic kidney disease stage III-improved to baseline today 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 Because of this she was changed to inpatient status with medically necessary treatment spanning 2 midnights. Maintain inpatient status, stable for rehab ? ? DS: Summary Hospital Course Hospital Course: Patient was admitted through the emergency room status post fall, but the significant finding was her significant anemia, given medicines in the ER, rest of the patient's morning blood patient on [facility], repeat potassium later today and continue to elevate, but that she was changed from observation status to inpatient due to the failure of Treatment: For her hyperkalemia, medications were further adjusted during the day and by next morning her potassium is finally improving, physical therapy evaluated the patient also on the day of admission and patient not safe for ambulation by herself, she does live with someone else but she is disabled, patient was recommended for rehab on the day of discharge she is approved to go to a rehab, she is medically stable for discharge to rehab. Medications see list. Follow-up PCP at discharge. Time Spent with Patient Time attestation: Total time spent providing and/or coordinating discharge services: Exam Constitutional Vital Signs, click to edit/add: Last Vital Signs Temp 97.8 F 03/08/25 11:12 Pulse 55 L 03/08/25 14:00 Resp 18 03/08/25 11:12 BP 134/75 03/08/25 11:12 Pulse Ox 94 L 03/08/25 11:30 O2 Del Method Room Air 03/08/25 11:30 Documenting provider has reviewed patient's vital signs: yes Common normals: no apparent distress Neck & C-Spine Common normals: negative for full ROM (Soft collar in place-chronic) Respiratory Common normals: normal respiratory effort and clear to auscultation bilaterally Cardio Common normals: regular rate, regular rhythm, S1 normal heart sound and S2 normal heart sound GI Common normals: Normal to inspection, nondistended, normoactive bowel sounds present, soft to palpation, non-tender and no hepatosplenomegaly Extremity Common normals: normal to inspection, full ROM, normal capillary refill and no clubbing, cyanosis or edema Discharge Plan Discharge Disposition: Xfer SNF Discharge Medications: New atenolol 50 mg Tablet 50 mg PO DAILY Qty: 30 0RF gabapentin 300 mg Capsule 300 mg PO Q8H Qty: 90 3RF buprenorphine 20 mcg/hour Patch Weekly 1 patch transdermal Q7D 28 Days Qty: 4 0RF Continued donepezil 5 mg tablet 5 mg PO .qhs risperidone 0.25 mg tablet 0.5 mg PO QDAY allopurinol 100 mg tablet 100 mg PO QDAY pravastatin 10 mg tablet 10 mg PO QDAY vitamin B12 100 mcg tablet 1 tab PO DAILY cyclobenzaprine 10 mg tablet 10 mg PO .qhs esomeprazole magnesium 20 mg capsule,delayed release(DR/EC) 20 mg PO Q24H escitalopram oxalate 20 mg tablet 20 mg PO .q12 Rx Instructions: x 1 month diclofenac sodium 1 % gel 4 g TOPICAL .q6 PRN (Reason: pain) buprenorphine 20 mcg/hour patch weekly 1 patch transdermal Q7D metformin 500 mg tablet 500 mg PO QDAY lidocaine 4 % cream 2.5 g topical Q6H PRN (Reason: pain) levothyroxine 50 mcg tablet 50 mcg PO QAM gabapentin 300 mg capsule 300 mg PO Q8H cyclobenzaprine 5 mg tablet 5 mg PO Q12H Rx Instructions: morning and afternoon Discontinued spironolactone 25 mg tablet 25 mg PO QDAY atenolol 25 mg tablet 12.5 mg PO Q24H Print Language: Prydeinig Assurance Associate/Senior Project Coordinator Instructions: Discharge to New Site skilled Forms: Portal Instructions Discharge Date/Time: 03/08/25 17:56 [facility]
--- NOTE | 2025-03-08 10:18 | SWNOTE1 ---
Dr. Adkins completing peer to peer.
--- NOTE | 2025-03-08 10:22 | SWNOTE1 ---
Doctor was able to schedule peer to peer between 1&3.
[2025-03-08 11:18] LABS: Glucometer 110 mg/dL (74-106)
--- NOTE | 2025-03-08 13:17 | SWNOTE1 ---
TONEY received message from Dr. Adkins and peer to peer is approved for rehab. TONEY messaged [facility] and they will let SW know when they receive approval.
--- NOTE | 2025-03-08 14:55 | SWNOTE1 ---
TONEY received message from Kristy at [facility] and they have received approval. TONEY let Dr. Adkins know. Dr. Adkins put in orders. TONEY faxed dc med rec, physician note, labs, vitals, and OT note from today. TONEY called [facility], but they do not have availability. TONEY called and spoke to daughter. She does not want SW to set up ambulance. She did ask about [facility]. TONEY advised that [facility] does not have transport available. TONEY did ask if she could come get pt and take her over and the hospital and [facility] will assist with getting her in and out of car. She would like TONEY to call [facility] first and then if they can't she will transport.
--- NOTE | 2025-03-08 15:13 | SWNOTE1 ---
SW called [facility] and they do not have transport. SW did email Kristy at and they do not have transport. SW called daughter and let her know. Daughter will be coming to get patient to transport. SW updated [place]. Pt is going to [place] skilled. SW took packet to med/surge floor.
--- NOTE | 2025-03-08 15:14 | SWNOTE1 ---
SW let Kristy at [facility] know daughter transporting and let nurse know.
--- NOTE | 2025-03-08 15:22 | PT.DAILY ---
Physical Therapy Daily Note PT Daily Note/Assess Start: 03/06/25 11:18 Freq: Status: Active Protocol: Document 03/08/25 02:40 DERRICK (Rec: 03/08/25 15:22 ESHUMARIANO [id number]) Physical Therapy Daily Note/Assessment Time In/Time Out Time In 02:40 Time Out 02:55 Subjective Subjective Patient reports feeling good today and is ready to get up and go for a walk. Therapeutic Exercise Time Therapeutic Exercise 5 Minutes (minutes) Therapeutic Exercise 0 Units Therapeutic Exercise Treatment Therapeutic Exercise Seated Exercises: Treatment Marches x 10 LAQ x 10 HR/ TR x 10 Hip abd x 10 Add squeezes x 10 Therapeutic Activity Time Therapeutic Activity 10 Minutes (minutes) Therapeutic Activity 1 Units Therapeutic Activity Treatment Chair Transfer Contact Guard Assist,Minimum Assist Ability Therapeutic Activity Patient completes sit to stand transfer from chair to Comments RW CGA. Ambulates 10 feet to bathroom with RW CGA. Sit to stand transfer from toilet back to RW required MIN A . Patient then stands at sink for around 1 minute to wash hands. Patient ambulates 40 feet from bathroom out into the hallway and back to chair. Total Physical Therapy Time Total Therapy 15 Minutes Total Physical 1 Therapy Units Summary Daily Note Summary Patient completes seated exercises today x 10 each. Patient able to complete sit to stand transfer from chair to RW CGA and then ambulate 10 feet to bathroom. MIN A required for transfer from toiler back to RW, then stand at sink for around 1 minute to wash hands then ambulates 40 feet from bathroom out into hallway and back to chair. Patient demonstrates improved endurance with ambulation and transfers without rest break today. Patient in chair with call light in reach and all needs met post treatment. Continue to recommend SNF at [place] to build endurance and increase strength in B LE.
--- NOTE | 2025-03-08 17:54 | PC.NURSE ---
report given to eze, all questions answered
== END 2025-03-08 17:56 | DRG 641 ==
LOC: ER 18:56 → MS 20:35
PROVIDERS: Registered Nurse; Admitting Provider Family Medicine; Emergency Provider Emergency Medicine; PCP Nurse Practitioner Family; Visit Provider Family Medicine
DX: E87.5 Hyperkalemia (principal); E11.51 Type 2 diabetes mellitus with diabetic peripheral angiopathy without gangrene; I12.9 Hypertensive chronic kidney disease with stage 1 through stage 4 chronic kidney disease, or unspecified chronic kidney disease; D63.1 Anemia in chronic kidney disease; N18.30 Chronic kidney disease, stage 3 unspecified; Z79.84 Long term (current) use of oral hypoglycemic drugs; Z90.49 Acquired absence of other specified parts of digestive tract; Z90.710 Acquired absence of both cervix and uterus; Z87.891 Personal history of nicotine dependence; Z79.899 Other long term (current) drug therapy; R00.0 Tachycardia, unspecified; D50.9 Iron deficiency anemia, unspecified; R00.1 Bradycardia, unspecified; Z91.81 History of falling; E11.22 Type 2 diabetes mellitus with diabetic chronic kidney disease; Z79.891 Long term (current) use of opiate analgesic; M50.90 Cervical disc disorder, unspecified, unspecified cervical region; G30.9 Alzheimer's disease, unspecified; F02.80 Dementia in other diseases classified elsewhere, unspecified severity, without behavioral disturbance, psychotic disturbance, mood disturbance, and anxiety; F32.A Depression, unspecified; K21.9 Gastro-esophageal reflux disease without esophagitis; E03.9 Hypothyroidism, unspecified; Z79.890 Hormone replacement therapy; E78.00 Pure hypercholesterolemia, unspecified
CPT/HCPCS: 36415; 70450; 71045; 72125; 74176; 80048; 80053; 81001; 82948; 83735; 85025; 85027; 87086; 93005; 94761; 97161; 97165; 97530; 97535; 99285; G0378

== ENCOUNTER 2025-05-15 09:25 | Outpatient (OUT) | payer MEDICARE, SELFPAY ==
--- OUTSIDE RECORDS SUMMARY | 2025-03-07 07:36 | XMS_ITS ---
Author Name Auto Generated Organization OHIP Care Team Providers Care Cloth Shrinker Name Role Phone Greg Adkins Attending Unavailable Greg Adkins Admitting Unavailable STACIA KELLER Attending Unavailable PROVIDER, CONVERSION Primary Care Unavailable PROBLEMS DATE TYPE CONDITION / CODE ATTENDING STATUS FATOUMATA RCE 03/05/2025 Unknown Essential (prima ry) hypertension / I10(ICD-10) STACIA KELLER Active [facility] PROCEDURES No Procedure Records Found RESULTS URINALYSIS Collected: 05/01/2025 4:00 PM S tatus: COMPLETED Source: [facility] Order Comment: Urine receive d without preservative. Delays in transport may affect results. Interpret with caution. A clinical correlation is recommended. TYPE CODE TESTS RESULT OUT OF RANGE REFERENCE UNITS LAB COLP COLOR Yellow Yellow, Colorless LAB TURB TURBIDITY Clear Clear LAB SPGR SPECIFIC GRAVITY <=^1.005 1.003-1.035 NA LAB NITR NITRITE Negative Negative LAB PHUR PH,URINE 6.0 5.0-8.5 NA LAB LEST LEUKOCYTE ESTERASE Trace Abnormal Negative LAB PRU PROTEIN Negative Negative LAB KET KETONES (URINE) Negative Negative LAB UROB UROBILINOGEN 0.2 eu/dL 0.2 eu/ dL, 1.0 eu/dL LAB BILEU BILIRUBIN (URINE) Negative Negative LAB BLUR BLOOD/HGB Negative Negative LAB SEP SQUAMOUS EPITHELIUM 1 0-5 NA LAB WBCU W.B.CELLS 20 High 0-5 NA LAB GLUR GLUCOSE (URINE) Negative Nega tive, 250 mg/dL Performed By: #### UA #### [facility]) [address] [place] [address]. [place] [address] VIR URINE CULTURE Observed: 05/01/2025 4:00 PM Status: COMPLETED Source: [facility] Order Comment: Urine receive d without preservative - delays in transport may affect results. Interpret with caution and clinical correlation is recommended. CULTURE RESULTS ESCHERICHIA COLI >100,000 CFU/mL Escherichia coli [ S = SUSCEPTIBLE R = RESISTANT I = INTERMEDIATE S-DO = Susceptible-dose dependent NS = Non-suscceptible NO = No Interpretation ] Organism: ESCHERICHIA COLI Antibiotic Interpretation JONATHAN Status Ampicillin S <=^2.0 F AMP/SULBACTAM S <=^2.0 F PIPERACIL/TAZOBACTAM S <=^4.0 F Cefazolin (non-urinary) S 2.0 F Cefazolin (urinary) S 2.0 F Ceftriaxone S <=^0.25 F Gentamicin S <=^1.0 F Ciprofloxacin S <=^0.06 F Levofloxacin S <=^0.12 F Nitrofurantoin S <=^16.0 F Trimethoprim + Sulfamethoxazole S <=^1.0 F Performed By: #### UC #### [facility] ([facility]) [address] [place] [address] VIR BASIC METABOLIC PANEL Collected: 04/11/2025 3:1 9 PM Status: COMPLETED Source: [facility] TYPE CODE TESTS RESULT OUT OF RANGE REFERENCE UNITS LAB NA SODIUM 135 134-146 mmol/L LAB K POTASSIUM 4.9 3.5-5.0 mmol/L LAB CL CHLORIDE 102 98-109 mmol/L LAB CO2 CARBON DIOXIDE 21 Low 22-32 mmol/L LAB AGAP ANION GAP 12 5-15 mmol/L LAB BUN BLOOD UREA NITROGEN 29 High 5-27 mg/dL LAB CRET CREATININE 2.29 High 0.40-1.00 mg/dL Result Comment: METHOD TRACE ABLE TO IDMS STANDARD LAB GLU GLUCOSE 188 High 65-99 mg/dL LAB CA CALCIUM 9.4 8.5-10.5 mg/dL LAB EGFR EGFR (CKD-EPI) NON-RACE DEPENDENT 20 Low >=60 ml/min/1. 73sq.m Result Comment: eGFR not rep orted due to non-numeric value for Creatinine. Reported eGFR is based on the CKD-EPI 2020 equation that does not use a race coefficient. Performed By: #### BMP #### [facility]) [address] [place] [address] VIR URINE CULTURE Observed: 03/07/2025 7:36 AM Status: F Source: [facility] 25,000 colonies/ml mixed bacterial skin contaminants 2 Days PERFORMED BY: [place] [id number] PATHOLOGIST TOLL BRIDGE ATTENDANT DEBORAH VIZCAINO M.D. Performed By: #### CUU #### [place] [id number] [facility] CBC WITH AUTO DIFFERENTIAL Collected: 0 03/05/2025 10:30 AM Status: COMPLETED Source: [facility] TYPE CODE TESTS RESULT OUT OF RANGE REFERENCE UNITS LAB WBC WBC 6.6 4-11 x10E9/L LAB RBC RBC COUNT 3.98 3.8-5.2 X10E12/L LAB HGB HEMOGLOBIN 11.4 Low 11.7-15.5 g/dL LAB HCT HEMATOCRIT 34.8 Low 35-47 % LAB MCV MCV 88 80-100 fL LAB MCH MCH 28.6 27-34 pg LAB MCHC MCHC 32.7 32-36 g/dL LAB RDW RDW 15.8 High 11.5-15 % LAB PLTC PLATELET COUNT 236 150-450 X10E9/L LAB MPV MPV 9.0 7-12 fL LAB NEUT NEUTROPHILS RELATIVE PERCENT BY AUTOMATED COUNT 57.6 % LAB LYMP LYMPHOCYTES RELATIVE PERCENT BY AUTOMATED COUNT 30.3 % LAB MONO MONOCYTES RELATIVE PERCENT BY AUTOMATED COUNT 8.9 % LAB EOS EOSINOPHILS RELATIVE PERCENT BY AUTOMATED COUNT 2.5 % LAB BASO BASOPHILS RELATIVE PERCENT BY AUTOMATED COUNT 0.7 % LAB ANEUT NEUTROPHILS ABSOLUTE COUNT BY AUTOMATED COUNT 3.8 10*3/uL LAB ALYMP LYMPHOCYTES ABSOLUTE COUNT (10*3/UL) BY AUTOMATED COUNT 2.0 10*3/uL LAB AMONO MONOCYTES ABSOLUTE COUNT (10*3/UL) BY AUTOMATED COUNT 0.6 10*3/uL LAB AEOS EOSINOPHILS ABSOLUTE COUNT (10*3/UL) BY AUTOMATED COUNT 0.2 10*3/uL LAB ABASO BASOPHILS ABSOLUTE COUNT (10*3/UL) BY AUTOMATED COUNT 0.0 10*3/uL LAB DTYPE CELLAVISION DIFFERENTIAL TYPE AUTOMATED DIFFERENTIAL Performed By: #### CBCA #### [address] [address] VIR THYROID PROFILE INCLUDES TSH FT4 Collected: 03/05/2025 10:30 AM Status: COMPLETED Source: [facility] TYPE CODE TESTS RESULT OUT OF RANGE REFERENCE UNITS LAB FT4 FREE T4 0.93 0.61-1.60 ng/dL LAB TSH TSH 2.21 0.49-4.67 uIU/mL Performed By: #### THYR #### [facility] [address] [address] VIR COMPREHENSIVE METABOLIC PANEL Collected : 03/05/2025 10:30 AM Status: COMPLETED Source: [facility] TYPE CODE TESTS RESULT OUT OF RANGE REFERENCE UNITS LAB NA SODIUM 135 134-146 mmol/L LAB K POTASSIUM 6.3 High Alert 3.5-5.0 mmol/L LAB CL CHLORIDE 103 98-109 mmol/L LAB CO2 CARBON DIOXIDE 24 22-32 mmol/L LAB AGAP ANION GAP 8 5-15 mmol/L LAB BUN BLOOD UREA NITROGEN 30 High 5-27 mg/dL LAB CRET CREATININE 2.14 High 0.40-1.00 mg/dL Result Comment: METHOD TRACE ABLE TO IDMS STANDARD LAB GLU GLUCOSE 102 High 65-99 mg/dL LAB CA CALCIUM 9.4 8.5-10.5 mg/dL LAB TP TOTAL PROTEIN 7.0 6.0-8.0 g/dL LAB ALB ALBUMIN 4.1 3.2-5.3 g/dL LAB ALK ALKALINE PHOSPHATASE 76 39-130 U/L LAB AST AST 21 <=41 U/L LAB ALT ALT 18 <=31 U/L LAB TBIL BILIRUBIN,TOTAL 0.6 0.3-1.2 mg/dL LAB EGFR EGFR (CKD-EPI) NON-RACE DEPENDENT 22 Low >=60 ml/min/1 .73sq.m Result Comment: Reported eGF R is based on the CKD-EPI 2020 equation that does not use a race coefficient. Performed By: #### CMP #### [facility] [place] [id number] VIR LIPID PROFILE Collected: 03/05/2025 10:30 AM Status: COMPLETED Source: [facility] TYPE CODE TESTS RESULT OUT OF RANGE REFERENCE UNITS LAB CHOL CHOLESTEROL 186 150-200 mg/dL LAB TRIG TRIGLYCERIDE 217 High 27-150 mg/dL LAB HDL HDL CHOLESTEROL 43 >39 mg/dL Result Comment: HDL <40 mg/d L - High Risk HDL > or = 40mg/dL- Desirable HDL >60 mg/dL - Negative Risk LAB LDL LDL (CALC) 100 <130 mg/dL Result Comment: LDL <100 mg/ dL - Desirable LDL >160 mg/dL - High Risk LAB CHDL CHOLESTEROL:HDL 4.3 1.0-5.0 NA LAB VLDL VERY LOW LIPOPROTEIN 43 High 0-30 mg/dL Performed By: #### LIPR #### [facility] ([facility]) [address] [place] [address] VIR IRON AND TIBC Collected: 10:30 AM Status: COMPLETED Source: [facility] TYPE CODE TESTS RESULT OUT OF RANGE REFERENCE UNITS LAB FE IRON 48 Low 50-170 ug/dL LAB TRF TRANSFERRIN 368 High 168-336 mg/dL LAB TIBC IRON BINDING 515 High 250-425 ug/dL LAB SAT IRON SATURATION 9 Low 15-50 % SATURATION Performed By: #### FEPR #### [facility] ([facility]) [address] [place] [address] VIR VITAMIN D 25 HYDROXY Collected: 025 10:30 AM Status: COMPLETED Source: [facility] Order Comment: Vitamin D sta tus 25 [place] Vitamin D Deficiency <20 ng/mL Insufficiency 20-29 ng/mL Sufficiency 30-100 ng/mL Toxicity >100 ng/mL NOTE: A pediatric reference range has not been established by the presser all around of this kit. The [place] [employer] recommends a Vitamin D level of = or >20ng/mL in infants and children. TYPE CODE TESTS RESULT OUT OF RANGE REFERENCE UNITS LAB VITD VITAMIN D 25 HYD TOT 35.4 30.0-100.0 ng/mL Performed By: #### VITD #### [facility] ([facility]) [address] [place] [address] VIR INSULIN Collected: 10:30 AM Status: COMPLETED Source: [facility] Order Comment: Ref. range is for FASTING NON-DIABETIC POPULATION. TYPE CODE TESTS RESULT OUT OF RANGE REFERENCE UNITS LAB INS INSULIN 19.48 1.00-23.00 uIU/mL Performed By: #### INSL #### [facility] ([facility]) [address] [place] [address] VIR HEMOGLOBIN A1C Collected: 03/05/2025 10:30 AM Status: COMPLETED Source: [facility] TYPE CODE TESTS RESULT OUT OF RANGE REFERENCE UNITS LAB HBA1C HEMOGLOBIN A1C 5.9 High 4.4-5.6 % Result Comment: ADA Guidelin es Result HgbA1c Normal : less than 5.7 % Prediabetes : 5.7 % to 6.4 % Diabetes : > 6.4 % Use with caution in patients with abnormal hemoglobin variants as the half-life of red blood cells and in vivo glycation rates are affected. LAB EAG EST. AVERAGE GLUCOSE 123 mg/dL Performed By: #### HA1C #### [facility] ([facility]) [address] [place] [address] VIR ALLERGIES DATE TYPE / CODE NAME / CODE REACTION SEVERITY SOURCE 04/08/2022 Drug Allergy/38904 8002(SNOMED CT) NSAIDS (Non-Steroidal Anti-Inflamma/W1223 62656(RXNORM) Rash Unknown [facility] 04/08/2022 Drug Allergy/94134 8002(SNOMED CT) glycerin/[id number] (RXNORM) Unknown Reaction Unknown [facility] 04/08/2022 Drug Allergy/59833 8002(SNOMED CT) lidocaine/[id number] 0(RXNORM) Unknown Reaction Unknown [facility] 04/08/2022 Drug Allergy/36027 8002(SNOMED CT) cat dander/[id number](R XNORM) Sneezing Unknown [facility] 04/08/2022 Drug Allergy/89586 8002(SNOMED CT) mold/[id number](RXN ORM) Sneezing Unknown [facility] Drug Class/7360056 03(SNOMED CT) NO ALLERGY INFORMATION AVAILABLE [facility] ENCOUNTERS ADMIT/DISCHARGE ACCOUNT NUMBER ADMITTING ENCOUNTER CLASS LOCATION SOURCE 03/07/2025/03/07/20 [id number] Greg Ad[facility] 03/05/2025/03/05/20 [id number] Ambulatory Building:[facility] PAYERS ENCOUNTER GUARANTOR PAYER SUBSCRIBER SOURCE 03/07/2025 Vidhya L [id number] [id number]: () Primary Insurance:Self PayPolicy Number: Effective Date:2025-03-07 [facility]25 VIDHYA L TINOOB: [place], [place] [address]Xba: (HP) (WP) Primary Insurance:[employer] MEDICARE PLAN (PPO)Policy Number: [id number] lay Date:2021-11-08 VIDHYA L TINOOB: [id number] [place], [place] [address]Ccm: (HP) [facility]
--- OUTSIDE RECORDS SUMMARY | 2025-05-15 09:28 | XMS_ITS | Encounter Summary ---
Author Organization [facility] [employer] [facility] Address [address] [place] [address] Care Team Providers Care Lap Machine Tender Name Role Phone Kalin Santos DO Primary Care Provider Unavaila ble Reason for Visit * Reason Comments Medication Refill Encounter Details Date Type Department Care Team (Late st Contact Info) Description 07/05/2012 Refill [facility] [address] [place] [phone] Antoni Anne MD [address] [place] [address] Medication Refill Social History Tobacco Use Types Packs/Day Years Used Date Smoking Tobacco: Never Smokeless Tobacco: Never Alcohol Use Standard Drinks/Week Comments No 0 (1 standard drink = 0.6 oz pur e alcohol) Comments Unknown Sex and Gender Information Value Date Recorded Sex Assigned at Not on file Legal Sex Female 8:48 PM EST Gender Identity Not on file Sexual Orientation Not on file documented as of this encounter Plan of Treatment Not on file documented as of this encounter Visit Diagnoses Not on filedocumented in this encounter Additional Health Concerns Infection Onset Date Last Indicated Resolved Time 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
--- OUTSIDE RECORDS SUMMARY | 2025-05-15 09:28 | XMS_ITS | Encounter Summary ---
Author Organization [facility] [employer] [facility] Address [address] [place] [address] Care Team Providers Care Management Services Technician Name Role Phone Kalin Santos DO Primary Care Provider Unavaila ble Encounter Details Date Type Department Care Team (Late st Contact Info) Description 05/12/2016 PAT Telephone [facility] Pre-Admit Testing [address] [place] [address] Marci Canchola RN Social History Tobacco Use Types Packs/Day Years Used Date Smoking Tobacco: Former Smokeless Tobacco: Never Alcohol Use Standard Drinks/Week Comments No 0 (1 standard drink = 0.6 oz pur e alcohol) Comments No Sex and Gender Information Value Date Recorded [...] Indicated Resolved Time 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
--- OUTSIDE RECORDS SUMMARY | 2025-05-15 09:28 | XMS_ITS | Encounter Summary ---
Author Organization [facility] [employer] [facility] Address [address] [place] [address] Care Team Providers Care Human Resources Analyst Name Role Phone Kalin Santos DO Primary Care Provider Unavaila ble Reason for Visit * Reason Comments Medication Refill Encounter Details Date Type Department Care Team (Late st Contact Info) Description 06/26/2012 Refill [facility] [address] [place] [phone] Antoni Anne MD [address] [place] [address] Medication Refill Social History Tobacco Use Types [...] documented as of this encounter Care Teams Human Resources Analyst Relationship Specialty Start Date End Date Kalin Santos DO [address] [place] [address] PCP - General 06/22/16 documented as of this encounter
--- OUTSIDE RECORDS SUMMARY | 2025-05-15 09:28 | XMS_ITS | Encounter Summary ---
Author Organization [facility] Address [address] [place] [address] Care Team Providers Care Public Relations Director Name Role Phone Kalin Santos DO Primary Care Provider Unavaila ble Encounter Details Date Type Department Care Team (Late st Contact Info) Description 06/19/2016 PAT Telephone [facility] Pre-Admit Testing [address] [place] [address] Osvaldo Pagan, HENRY Social History Tobacco Use Types Packs/Day Years [...] on file documented as of this encounter Last Filed Vital Signs Vital Sign Reading Time Taken Comments Blood Pressure - - Pulse - - Temperature - - Respiratory Rate - - Oxygen Saturation - - Inhaled Oxygen Concentration - - Weight 70.8 kg (156 lb) 06/19/2016 3:49 PM EDT Height 152.4 cm (5') 06/19/2016 3:49 PM EDT Body Mass Index 30.47 06/19/2016 3:49 PM EDT documented in this encounter Plan of Treatment Not on file documented as of this encounter Visit Diagnoses Not on filedocumented in this encounter Additional Health Concerns Infection Onset Date Last Indicated Resolved Time MRSA Comment:Barrett06/23/16 06/24/2016 06/24/2016 Assessment Noted Time A fall risk assessment has been complete d for the patient 02/22/2014 4:25 PM EDT documented as of this encounter Care Teams Public Relations Director Relationship Specialty Start Date End Date Kalin Santos DO [address] [place] [address] PCP - General 06/22/16 documented as of this encounter
--- OUTSIDE RECORDS SUMMARY | 2025-05-15 09:28 | XMS_ITS | Clinical Summary ---
Author Organization [facility] Address [address] [place] [address] Care Team Providers Care Atomic Physics Teacher Name Role Phone Kalin Santos DO Primary Care Provider Unavaila ble Allergies Active Allergy Reactions Criticality Noted Date Comments Lorazepam Anxiety Low 06/24/2016 Patient became very agitated Meperidine Hcl Anaphylaxis High 01/29/2011 Hydromorphone Hcl Other (See Comments) Low 06/24/20 16 Patient became very confused Latex 09/21/2013 Nitrofurantoin Monohyd Macro 09/21/2013 Morphine Other (See Comments) Medium 02/04/2016 Hallucinations, agitation Nsaids 08/16/2014 Has kidney disease Sulfa Antibiotics High 01/19/2013 Adhesive Tape Rash Low 05/13/2016 Paper tape OK Medications therapeutic multivitamin-mi nerals (THERAGRAN-M) tablet Take 1 tablet by mouth daily GUMMIES Active pravastatin (PRAVACHOL) 20 MG tablet Take 10 mg by mouth daily Active meclizine (ANTIVERT) 25 MG tablet Take 25 mg by mouth 3 times daily as needed. Active polyethylene glycol (GLYCOLAX) powder Take 17 g by mouth daily as needed Active donepezil (ARICEPT) 5 MG tablet Take 5 mg by mouth daily. Active risperiDONE (RISPERDAL) 0.25 MG tablet Take 0.25 mg by mouth 2 times daily. Active Cyanocobalamin (VITAMIN B-12) [address] under the tongue daily. Active ferrous sulfate 325 (65 FE) MG tablet Take 325 mg by mouth 2 times daily. Active pantoprazole (PROTONIX) 40 MG tablet Take 40 mg by mouth daily. Active Albuterol Sulfate (PROAIR HFA IN) Inhale 2 puffs into the lungs as needed. Active atenolol (TENORMIN) 25 MG tablet Take 12.5 mg by mouth daily Half tab daily Active spironolactone (ALDACTONE) 25 MG tablet Take 50 mg by mouth daily Active chlorpheniramin e (CHLOR-TRIMETON ) 4 MG tablet Take 2 mg by mouth daily Half tab Active Probiotic Product (PROBIOTIC DAILY PO) Take by mouth daily Active traZODone (DESYREL) 50 MG tablet Take 25 mg by mouth nightly Active ondansetron (ZOFRAN) 4 MG tablet Take 4 mg by mouth every 8 hours as needed for Nausea or Vomiting Active docusate sodium (COLACE, DULCOLAX) 100 MG CAPS Take 100 mg by mouth 2 times daily 60 capsule 6 Active Additional Information Patient taking differently:100 mg OralDAILY PRN, Reported on 09/03/2016 Carbamide Peroxide (DEBROX OT) Place in ear(s) as needed Active cyclobenzaprine (FLEXERIL) 5 MG tablet Take 5 mg by mouth 2 times daily as needed for Muscle spasms And 10mg at HS Active calcium citrate-vitamin D (CITRICAL + D) 315-250 MG-UNIT TABS per tablet Take 1 tablet by mouth daily Calcium 600 Active gabapentin (NEURONTIN) 600 MG tabletIndicatio ns:Chronic right shoulder pain,Closed displaced fracture of distal phalanx of right thumb, initial encounter,Open wound of finger, initial encounter,Chron ic pain syndrome Take 1 tablet by mouth 3 times daily for 30 days. 90 tablet 2 8 Active buprenorphine (BUTRANS) 20 MCG/HR PTWKIndications :Chronic right shoulder pain,Closed displaced fracture of distal phalanx of right thumb, initial encounter,Open wound of finger, initial encounter,Chron ic pain syndrome Apply 1 patch topically every 7 days for 84 days. 4 patch 2 8 Active escitalopram (LEXAPRO) 20 MG tabletIndicatio ns:Chronic right shoulder pain,Closed displaced fracture of distal phalanx of right thumb, initial encounter,Open wound of finger, initial encounter,Chron ic pain syndrome Take 1 tablet by mouth 2 times daily (with meals) 60 tablet 2 8 Active Active Problems Problem Noted Date Diagnosed Date Right shoulder pain 05/17/2014 Trigger finger, acquired Closed fracture of distal phalanx or phalanges o f hand Open wound of finger Unstable burst fracture of first cervical verteb ra Fall from other slipping, tripping, or stumbling Herniated cervical disc Syncope and collapse Mobility impaired Family History Medical History Relation Name Comments Cancer Mother Relation Name Status Comments Father Mother Social History Tobacco Use Types Packs/Day Years Used Date Smoking Tobacco: Former Smokeless Tobacco: Never Alcohol Use Standard Drinks/Week Comments No 0 (1 standard drink = 0.6 oz pur e alcohol) Comments No Sex and Gender Information Value Date Recorded Sex Assigned at Not on file Legal Sex Female 8:48 PM EST Gender Identity Not on file Sexual Orientation Not on file Last Filed Vital Signs Vital Sign Reading Time Taken Comments Blood Pressure 130/78 12/02/2017 12:00 PM EST Pulse 67 12/02/2017 12:00 PM EST Temperature 35.8 C (96.4 F) 12/02/2017 12:00 PM EST Respiratory Rate 20 12/02/2017 12:00 PM EST Oxygen Saturation 94% 06/30/2016 3:30 AM EDT Inhaled Oxygen Concentration - - Weight 78 kg (172 lb) 12/02/2017 12:00 PM EST Height 152.4 cm (5') 08/19/2017 11:09 AM EDT Body Mass Index 33.59 08/19/2017 11:09 AM EDT Plan of Treatment Not on file Additional Health Concerns Infection Onset Date Last Indicated MRSA Comment:Gladys-06/23/16 06/24/2016 06/24/[address] [place] [address] [employer] MEDICARE [place] MEDICARE [facility] Advance Directives Documents on File Type Date Recorded Patient Relationship Assoc Expl anation ACP-Power of Size Mixer 02/03/2016 10:12 AM * Full Code (Latest Code Status on File) Date Activated Date Inactivated Comments 06/22/2016 8:05 PM 06/30/2016 8:13 PM * Full Code Date Activated Date Inactivated Comments 05/13/2016 3:56 PM 05/18/2016 8:04 PM * Full Code Date Activated Date Inactivated Comments 02/04/2016 6:35 PM 02/11/2016 5:00 PM * Full Code Date Activated Date Inactivated Comments 02/03/2016 2:46 PM 02/04/2016 6:35 PM Care Teams Atomic Physics Teacher Relationship Specialty Start Date End Date Kalin Santos DO [address] [place] [address] PCP - General 06/22/16
--- OUTSIDE RECORDS SUMMARY | 2025-05-15 09:28 | XMS_ITS | Encounter Summary ---
Author Organization [facility] [place] [employer] [facility] Address [address] [place] [address] Care Team Providers Care Regulatory Affairs Internship Name Role Phone Kalin Santos DO Primary Care Provider Unavaila ble Reason for Visit * Reason Comments Medication Refill Encounter Details Date Type Department Care Team (Late st Contact Info) Description 03/28/2012 Refill [facility] [address] [place] [phone] Antoni Anne MD [address] [place] [address] Medication Refill Social History Tobacco Use Types [...] documented as of this encounter Care Teams Regulatory Affairs Internship Relationship Specialty Start Date End Date Kalin Santos DO [address] [place] [address] PCP - General 06/22/16 documented as of this encounter
--- OUTSIDE RECORDS SUMMARY | 2025-05-15 09:28 | XMS_ITS | Encounter Summary ---
Author Organization [facility] Address [address] [place] [address] Care Team Providers Care Ham Curer Name Role Phone Kalin Santos DO Primary Care Provider Unavaila ble Reason for Visit * Reason Comments Medication Refill Encounter Details Date Type Department Care Team (Late st Contact Info) Description 11/23/2016 Refill [facility] [address] [place] [address] [address] [place] [address] Antoni Anne MD [address] [place] [address] Medication Refill Social History Tobacco Use Types [...] documented as of this encounter Visit Diagnoses Diagnosis Chronic right shoulder pain Pain in joint, shoulder region Closed displaced fracture of distal phalanx of right thumb, initial encounter Open wound of finger, initial encounter Chronic pain syndrome documented in this encounter Additional Health Concerns Infection Onset Date Last Indicated Resolved Time MRSA Comment:Gladys-06/23/16 06/24/2016 06/24/2016 Assessment Noted Time A fall risk assessment has been complete d for the patient 02/22/2014 4:25 PM EDT documented as of this encounter Care Teams Ham Curer Relationship Specialty Start Date End Date Kalin Santos DO [address] [place] [address] PCP - General 06/22/16 documented as of this encounter
--- OUTSIDE RECORDS SUMMARY | 2025-05-15 09:28 | XMS_ITS | Encounter Summary ---
Author Organization [facility] Address [address] [place] [address] Care Team Providers Care Key Ringer Name Role Phone Kalin Santos DO Primary Care Provider Unavaila ble Reason for Visit * Reason Comments Medication Refill Encounter Details Date Type Department Care Team (Late st Contact Info) Description 11/15/2011 Refill [facility] [address] [place] [address] [address] [place] [phone] Antoni Anne MD [address] [place] [address] Medication Refill Social History Tobacco Use Types Packs/Day Years Used Date Smoking Tobacco: Never Assessed Comments Unknown Sex and Gender Information Value [...] documented as of this encounter Care Teams Key Ringer Relationship Specialty Start Date End Date Kalin Santos DO [address] [place] [address] PCP - General 06/22/16 documented as of this encounter
--- NOTE | 2025-05-15 09:32 | MR_ITS ---
The [address] [address] Patient Name: VIDHYA REGALADO MRN: [id number] date: 1940 Sex: F Assigned Patient Location: MRI Current Patient Location: MRI Accession/Order Number: [id number] Exam Date: 05/15/2025 15:07 Report Date: 05/15/2025 15:20 At the request of: KAEL AYALA MD Procedure: MR cervical spine wo con MR cervical spine wo con 05/15/2025:51 AM SIGNS AND SYMPTOMS: Recent fall, chronic neck pain right greater than left PROTOCOL: Multiplanar multisequence MR images of the cervical spine without IV contrast COMPARISON: None. FINDINGS: There is preservation of vertebral body heights. Posterior decompression from C3 through C6. This is similar to the prior CT. There is reversal of the normal cervical lordosis with 5 mm of anterolisthesis of C3 upon C4 which is unchanged. There is 4 mm of anterolisthesis of C2 upon C3. The marrow signal is within normal limits. Severe degenerative changes are noted at the craniocervical junction and along the lateral axial joint, better demonstrated on the previous CT. There is chronic myelomalacia at C3-C4. No epidural or paraspinous fluid collection is appreciated. The visualized paraspinous soft tissues are within normal limits. The prevertebral soft tissues are within normal limits. 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 At C2-C3: Facet hypertrophy is present bilaterally without joint spurring contributing to moderate to severe bilateral neural foraminal narrowing and moderate spinal canal stenosis. At C3-C4: There is facet hypertrophy with uncovertebral joint spurring contributing to moderate to severe left and severe right neural foraminal narrowing with moderate to severe spinal canal narrowing. There is underlying chronic myelomalacia within the cord at this level. At C4-C5: There is operative joint spurring and facet hypertrophy with posterior decompression. There is mild spinal canal narrowing with moderate right and mild left neural foraminal stenosis. At C5-C6: There is operative joint spurring and facet hypertrophy with posterior decompression. There is mild spinal canal narrowing with moderate right and mild left neural foraminal stenosis. At C6-C7: There is operative joint spurring and facet hypertrophy with posterior decompression. There is mild spinal canal narrowing with mild bilateral neural foraminal stenosis. At C7-T1: There is a normal disc, central canal, and neural foramen. MR/MR cervical spine wo con IMPRESSION: At C3-C4: There is facet hypertrophy with uncovertebral joint spurring contributing to moderate to severe left and severe right neural foraminal narrowing with moderate to severe spinal canal narrowing. There is underlying chronic myelomalacia within the cord at this level. Additional significant but lesser degrees of spinal canal and neural foraminal narrowing is noted as above. There is reversal of the normal cervical lordosis with 5 mm of anterolisthesis of C3 upon C4 which is unchanged. There is 4 mm of anterolisthesis of C2 upon C3. There is posterior decompression from C3 through C6 which is unchanged. Impression dictated by: Cheng Bartlett M.D. 05/15/2025 3:20 PM Dictation Location: [place] [address] Electronically authenticated by: [id number] Y Date: 05/15/2025 15:20
== END 2025-05-15 09:26 | disposition home or self-care (01) ==
PROVIDERS: PCP Nurse Practitioner Family; Visit Provider Family Medicine
DX: S12.090A Other displaced fracture of first cervical vertebra, initial encounter for closed fracture (principal); M43.12 Spondylolisthesis, cervical region
CPT/HCPCS: 72141

== ENCOUNTER 2025-06-25 15:47 | Observation (INO) | payer MEDICARE, SELFPAY ==
--- OUTSIDE RECORDS SUMMARY | 2025-05-28 08:58 | XMS_ITS ---
Author Organization The [facility] in [place] Address [address] [place] [address] Care Team Providers Care Lockstitch Back Maker Name Role Phone Atiya Srivastava Primary Care Provider [phone] REASON FOR VISIT UA Encounters Encounter Location Date Provider Diagnosis [address] [place] [address] 05/28/2025 Atiya Srivastava UTI (urinary tract infection) N39.0 Assessments Encounter Date Diagnosis (ICD Code) Assessment Notes Treatment Notes Treatment Clinical Notes Section Notes 05/28/2025 UTI (urinary tract infection) (ICD-10 - N39.0) Plan Of Treatment Pending Test Test Name Order Date UA (URINALYSIS, COMPLETE) 05/28/2025 Urine Culture 05/28/2025 Progress Notes * Dahlia REGALADO LDOB:01/1940 (84 yo F)Acc No.[id number]:05/28/2025 Patient: Nick Dahlia LYN :1940 A ge:84 Y S ex:Female Address:[address] [place] [address] Subjective: * Chief Complaints: * U A * Medical History: * Surgical History: * Hospitalization/Major Diagno stic Procedure: * Medications: Objective: * Vitals: * Physical Examination: Assessment: * Assessment: 1. U TI (urinary tract infection) - N39.0 (Primary) Plan: * Treatment: * Procedure Codes: * true * Date: Generated for Shyla larson/Evette/Evans on: 06/25/2025 04:58 PM EDT
--- OUTSIDE RECORDS SUMMARY | 2025-06-15 05:54 | XMS_ITS ---
Author Organization The [facility] in [place] Address [address] [place] [address] Care Team Providers Care Environmental Management Specialist Name Role Phone Atiya Srivastava Primary Care Provider REASON FOR VISIT UA Medications Medication SIG (Take, Route, Fr equency, Duration) Notes Start Date End Date Status levoFLOXacin 250 MG 1 tablet Orally Once a day for 5 days 06/15/2025 Active Encounters Encounter Location Date Provider Diagnosis [address] [address] 06/15/2025 Atiya Srivastava Plan Of Treatment Medication Medication Name Sig Start Date Stop Date Notes levoFLOXacin 250 MG 1 tablet Orally Once a day for 5 days 06/15/2025 Progress Notes * Dahlia REGALADO LDOB:01/1940 (85 yo F)Acc No.[id number]:06/15/2025 Patient: Nick Dahlia LYN :1940 A ge:85 Y S ex:Female Address:[address] [place] [address] * Refills Start levoFLOXacin Tablet, 250 MG, Orally, 5 Tablet, 1 tablet, Once a day, 5 days, Refills=0 Subjective: * Chief Complaints: * U A * Medical History: * Surgical History: * Hospitalization/Major Diagno stic Procedure: * Medications: Objective: * Vitals: * Physical Examination: Assessment: Plan: * Treatment: * Procedure Codes: * true * Date: Generated for Shyla larson/Evette/Evans on: 0 06/25/2025 04:58 PM EDT
--- OUTSIDE RECORDS SUMMARY | 2025-06-18 06:29 | XMS_ITS ---
Author Organization The [facility] in [place] Address [address] [place] [address] Care Team Providers Care Prepared Foods Production Team Member Name Role Phone Atiya Srivastava Primary Care Provider REASON FOR VISIT urine cx Medications Medication SIG (Take, Route, Fr equency, Duration) Notes Start Date End Date Status levoFLOXacin 250 MG 1 tablet Orally Once a day for 5 days 06/15/2025 Active Encounters Encounter Location Date Provider Diagnosis [address] [place] [address] 06/18/2025 Atiya Srivastava Plan Of Treatment Medication Medication Name Sig Start Date Stop Date Notes levoFLOXacin 250 MG 1 tablet Orally Once a day for 5 days 06/15/2025 Progress Notes * Dahlia REGALADO LDOB:01/1940 (85 yo F)Acc No.[id number]:06/18/2025 Patient: Nick Dahlia LYN :1940 A ge:85 Y S ex:Female Address:[address] [place] [address] * Refills Refill levoFLOXacin Tablet, 250 MG, Orally, 5 Tablet, 1 tablet, Once a day, 5 days, Refills=0 * true * Date: Generated for Printi ng/Fakiersteng/eTransmitting on: 0 06/25/2025 04:58 PM EDT
[2025-06-25 15:49] VITALS: BP 158/89; PULSE 80; TEMP 36.6; O2SAT 96; BMI 29.3
--- NOTE | 2025-06-25 16:05 | XR_ITS ---
[place] [id number] Patient Name: VIDHYA REGALADO MRN: [id number] date: 1940 Sex: F Assigned Patient Location: ED.MAIN Current Patient Location: ED.MAIN Accession/Order Number: [id number] Exam Date: 06/25/2025 17:14 Report Date: 06/25/2025 17:16 At the request of: BO PATRICK DO Procedure: XR chest 1V Plain film chest Single view HISTORY: Weakness COMPARISON: 03/05/2025 FINDINGS: SUPPORT DEVICES: None POSTSURGICAL CHANGES: Spinal fixation hardware HEART: Within normal limits PULMONARY FRANKIE: Within normal limits MEDIASTINUM: Unremarkable LUNGS AND PLEURA: No acute lung process, pleural effusion or pneumothorax identified. Similar right hemidiaphragm elevation BONY STRUCTURES: Intact ADDITIONAL FINDINGS None XR/XR chest 1V IMPRESSION: No acute process. Impression dictated by: Mark Funez M.D. 06/25/2025 5:16 PM Dictation Location: [employer] Electronically authenticated by: [id number] Y Date: 06/25/2025 17:16
--- NOTE | 2025-06-25 16:10 | ED.WEAKNESS1 ---
HPI - Weakness General Chief complaint: Weakness Stated complaint: WEAKNESS Time Seen by Provider: 06/25/25 15:50 Source: patient Mode of arrival: ambulance History of Present Illness HPI Narrative: The patient is an 85-year-old female who presents to the emergency department via EMS secondary to weakness. Patient usually has mobility issues and has home health care and lives with family. But, today she states that she is so weak she cannot even bear her own weight. She states usually she walks 1 or 2 steps and today she cannot do anything. This poses a problem for her because her daughter just recently broke her foot and is unable to provide any additional care than she already is. Now that the patient is profoundly weak she cannot do anything. The patient states that she does have home health care and despite that she is still very weak. About a week ago it was surmised that the patient had a urinary tract infection. She was placed on an unknown antibiotic. She states that she is progressively getting more weak. She occasionally feels chilled. She indicates that she does not have any flank pain but she still has burning, urgency, frequency and sometimes is not able to hold it. She is currently wearing a briefs but she has been wearing her briefs since a urinary tract infection since the urgency and frequency have been so profound. Related Data Home Medications ?Medication ?Instructions ?Recorded ?Confirmed allopurinol 100 mg tablet 100 mg PO QDAY 03/05/25 03/05/25 buprenorphine 20 mcg/hour weekly 1 patch transdermal Q7D 03/05/25 03/05/25 transdermal patch cyclobenzaprine 10 mg tablet 10 mg PO .qhs 03/05/25 03/05/25 cyclobenzaprine 5 mg tablet 5 mg PO Q12H 03/05/25 03/05/25 diclofenac sodium 1 % topical gel 4 g topical .q6 PRN pain 03/05/25 03/05/25 donepezil 5 mg tablet 5 mg PO .qhs 03/05/25 03/05/25 escitalopram oxalate 20 mg tablet 20 mg PO .q12 03/05/25 03/05/25 esomeprazole magnesium 20 mg 20 mg PO Q24H 03/05/25 03/05/25 capsule,delayed release gabapentin 300 mg capsule 300 mg PO Q8H 03/05/25 03/05/25 levothyroxine 50 mcg tablet 50 mcg PO QAM 03/05/25 03/05/25 lidocaine 4 % topical cream 2.5 g topical Q6H PRN pain 03/05/25 03/05/25 metformin 500 mg tablet 500 mg PO QDAY 03/05/25 03/05/25 pravastatin 10 mg tablet 10 mg PO QDAY 03/05/25 03/05/25 risperidone 0.25 mg tablet 0.5 mg PO QDAY 03/05/25 03/05/25 vitamin B12 1 tab PO DAILY 03/05/25 03/05/25 Previous Rx's ?Medication ?Instructions ?Recorded atenolol 50 mg tablet 50 mg PO DAILY #30 tabs 03/08/25 buprenorphine 20 mcg/hour weekly 1 patch transdermal Q7D 28 days #4 03/08/25 transdermal patch ea gabapentin 300 mg capsule 300 mg PO Q8H #90 caps 03/08/25 Allergies Allergy/AdvReac Type Severity Reaction Status Date / Time codeine Allergy dizzy Verified 03/05/25 17:21 latex Allergy Rash Verified 03/05/25 17:21 meperidine (From Demerol) Allergy hallucinati Verified 03/05/25 17:21 on Sulfa (Sulfonamide Allergy Rash Verified 03/05/25 17:21 Antibiotics) Review of Systems ROS Narrative 10 Systems were reviewed, and unless noted in the HPI, all other systems are reviewed, unremarkable, or noncontributory. [facility] Medical History Fall ?W19.XXXA - Unspecified fall, initial encounter (ICD-10) Hyperkalemia ?E87.5 - Hyperkalemia (ICD-10) Peripheral vascular disease ?I73.9 - Peripheral vascular disease, unspecified (ICD-10) Nerve damage ?T14.8XXA - Other injury of unspecified body region, initial encounter (ICD-10) HTN (hypertension) ?I10 - Essential (primary) hypertension (ICD-10) Diabetes ?E11.9 - Type 2 diabetes mellitus without complications (ICD-10) Surgical History History of cholecystectomy ?Z90.49 - Acquired absence of other specified parts of digestive tract (ICD-10) H/O knee surgery ?Z98.890 - Other specified postprocedural states (ICD-10) History of hysterectomy ?Z90.710 - Acquired absence of both cervix and uterus (ICD-10) Previous back surgery ?Z98.890 - Other specified postprocedural states (ICD-10) H/O neck surgery ?Z98.890 - Other specified postprocedural states (ICD-10) Family History Mother Family history of cancer Other Family history of CHF (congestive heart failure) Social History Within the past year, how often did you have a drink containing alcohol: never Score interpretation: A score less than 3 is consistent with normal alcohol consumption. Smoking status: Former smoker Non-prescribed substance use: denies use Highest level of school completed/degree received: high school graduate Are you now , , , , never or living with a partner: In a typical week, how many times do you talk on the telephone with family, friends, or neighbors: twice per week How often do you get together with friends or relatives: twice per week Little interest or pleasure in doing things: not at all Feeling down, depressed, or hopeless: not at all Feel stressed/tense/nervous/anxious/difficulty sleeping: not at all Do you think of yourself as: straight/heterosexual Gender Identity: female Exam Narrative Exam Narrative: Prior to examining the patient, I have washed with hospital approved and provided Antiseptic Hand Motor Room Controller and have also applied gloves.? Prior to touching the patient, I asked for consent to examine the patient.? General: Alert and oriented, morbidly obese, moderate distress. Profoundly weak. Patient can even turn herself in the bed. Eye: PERRL, EOMI, normal conjunctiva. 4 mm and reactive. No vertical or horizontal nystagmus. HENT: Normocephalic, normal hearing, moist oral mucosa, no scleral icterus Neck: Supple, non-tender, no carotid bruits, no JVD, no lymphadenopathy. Lungs: Clear to auscultation and percussion, non-labored respiration. No rhonchi, rales, wheezing Heart: Normal rate, regular rhythm, no murmur, gallop. The patient has generalized +1-2 pitting edema bilateral lower extremities to the thighs. Abdomen: Soft, non-tender, non-distended, normal bowel sounds, no masses. Obese Musculoskeletal: The patient has tenderness to the sacrum and coccyx area. The patient overall is profoundly weak. There is no gross deformity. Skin: Skin is warm, dry and pink, no rashes or lesions. Patient has +2 skin breakdown there is no peeling of the skin or breakdown of the skin but the patient has very poor blanching to palpation to the area and it is somewhat purple in appearance. No evidence of warmth or well-defined border. Neurologic: Awake, alert, and oriented X3, CN II-XII intact. Psychiatric: Cooperative, appropriate mood and affect.? Following the conclusion of the examination, I have washed my hands thoroughly after removing examination gloves. Constitutional Vital Signs, click to edit/add: Last Vital Signs Temp 97.8 F 06/25/25 15:49 Pulse 80 06/25/25 15:49 Resp 20 06/25/25 15:49 BP 158/89 H 06/25/25 15:49 Pulse Ox 97 06/25/25 16:39 O2 Del Method Room Air 06/25/25 16:39 Course Course Hospital Course: Patient is an 85-year-old profoundly weak patient who presents to the emergency department. The patient came in an ambulance. Patient currently lives with her daughter. Her daughter currently has a broken foot and cannot care for her. In addition, the patient has a caregiver who cares for her and is no longer able to care for her because her automobile is not working properly. However, having said that this patient typically is able to walk 2 or 3 steps to help stand, pivot, and transfer. For the last 6 days the patient has been bedridden and unable to move or help with anything and now with out having 2 people able to help her at all times the patient is unsafe being at home. Patient arrived in a completely full brief that she had had on this morning it was completely saturated and leaking around. Her perennial area was not vat cleaner cared for. The patient's sacral area had a stage II type of breakdown with nonblanching skin that was having a purple hue. Patient has not had any fever or chills. No evidence of infection. She is completely alert and oriented without any evidence of headache or injury. At this time the patient simply needs an assessment properly for potential placement, which would need PT/OT evaluation as well as social work assessment. I cannot send the patient home at this hour. It would be an unsafe disposition and placing the patient at further risk for disability or injury. Reevaluation(s) Reevaluation #1: Patient was made aware of the ultimate disposition to be admitted. Time: 18:54 Consultations Consultation #1: I discussed this case with Dr. Momin who was extremely helpful in facilitating the observation admission for this patient for unsafe disposition. Time: 18:54 Vital Signs Vital signs: Vital Signs Temperature 97.8 F 06/25/25 15:49 Pulse Rate 80 06/25/25 15:49 Respiratory Rate 20 06/25/25 15:49 Blood Pressure 158/89 H 06/25/25 15:49 Pulse Oximetry 96 06/25/25 15:49 Oxygen Delivery Method Room Air 06/25/25 15:49 Temperature 97.8 F 06/25/25 15:49 Pulse Rate 80 06/25/25 15:49 Respiratory Rate 20 06/25/25 15:49 Blood Pressure 158/89 H 06/25/25 15:49 Pulse Oximetry 97 06/25/25 16:39 Oxygen Delivery Method Room Air 06/25/25 16:39 MDM - Weakness MDM Narrative Medical decision making narrative: The patient at this time does not seem to have any metabolic or infectious etiology for her weakness at this time. The patient has had prolonged immobility for some time which I think is only gotten worse with the recent urinary tract infections. She has had 3 recent rounds of antibiotics. She still saying that she has burning with urination but I find that her urine is free of infection and I think that her burning is like from perhaps yeast vaginitis and irritation from the vulvar because of yeast. I do not endorse a urinary tract infection as a result of the burning. Differential Diagnosis Differential diagnosis: Likely acute myocardial infarction, anemia, hypoglycemia, hypothyroidism, rhabdomyolysis, sepsis and dehydration Medical Records Attestation: I reviewed the patient's medical records. Lab Data Attestation: I reviewed the patient's lab results. Labs: Lab Results 06/25/25 06/25/25 Range/Units 16:05 16:24 WBC 10.5 (4.0-11.0) 10^3/uL RBC 4.35 (4.20-5.40) 10^6/uL Hgb 11.8 L (12.0-16.0) g/dL Hct 37.8 (36.0-48.0) % MCV 86.9 (81.0-99.0) fL MCH 27.1 (26.7-34.0) pg MCHC 31.2 (29.9-35.2) g/dL RDW 15.7 H (11.0-15.0) % Plt Count 278 (150-450) 10^3/uL MPV 9.8 (9.5-13.5) fL Neut % (Auto) 59.3 (43.0-75.0) % Lymph % (Auto) 27.9 (20.5-60.0) % [place] % (Auto) 8.4 (1.7-12.0) % Eos % (Auto) 1.5 (0.9-7.0) % Baso % (Auto) 0.8 (0.2-2.0) % Neut # (Auto) 6.2 (1.4-6.5) 10^3/uL Lymph # (Auto) 2.9 (1.2-3.8) 10^3/uL [place] # (Auto) 0.9 H (0.3-0.8) 10^3/uL Eos # (Auto) 0.2 (0.0-0.7) 10^3/uL Baso # (Auto) 0.1 (0.0-0.1) 10^3/uL Abs Immat Gran (auto) 0.22 H (0.00-0.03) 10^3/uL Imm/Tot Granulo (auto) 2.1 H (0.0-0.5) % Sodium 140 (136-145) mmol/L Potassium 5.6 H (3.5-5.1) mmol/L Chloride 106 (98-107) mmol/L Carbon Dioxide 28.0 (21.0-32.0) mmol/L Anion Gap 11.6 BUN 35.0 H (7.0-18.0) mg/dL Creatinine 1.87 H (0.55-1.02) mg/dL Est GFR ( Amer) 31 L (>=60 mL/min/1.73m^2) Est GFR (Non-Af Amer) 26 L (>=60 mL/min/1.73m^2) BUN/Creatinine Ratio 18.7 Glucose 123 H (74-106) mg/dL Lactate 2.0 (0.4-2.0) mmol/L Calcium 9.7 (8.5-10.1) mg/dL Total Bilirubin 0.3 (0.2-1.0) mg/dL AST 16 (15-37) U/L ALT 24 (14-59) U/L Alkaline Phosphatase 135 H (46-116) U/L Troponin I High Sens 14.9 (4.0-51.3) pg/mL Total Protein 7.9 (6.4-8.2) g/dL Albumin 3.8 (3.4-5.0) g/dL Globulin 4.1 g/dL Albumin/Globulin Ratio 0.9 Urine Color Lt. yellow (YELLOW) Urine Clarity Clear (CLEAR) Urine pH 6.0 (5.0-9.0) Ur Specific [place] 1.020 (1.005-1.025) Urine Protein Negative (NEG/TRACE) mg/dL Urine Glucose (UA) Negative (NEGATIVE) mg/dL Urine Ketones Negative (NEGATIVE) mg/dL Urine Occult Blood Negative (NEGATIVE) Urine Nitrite Negative (NEGATIVE) Urine Bilirubin Negative (NEGATIVE) Urine Urobilinogen 0.2 (0.2-1.0) EU/dL Ur Leukocyte Esterase Negative (NEGATIVE) Urine RBC 0-2 (0-2) #/HPF Urine WBC 0-2 A (NONE SEEN) #/HPF Ur Squamous Epith Cells Rare (NONE/RARE) #/LPF Urine Crystals None seen (None Seen) #/HPF Urine Bacteria None seen (NONE SEEN) #/HPF Urine Casts None seen (NONE SEEN) #/LPF Urine Mucus None seen (NONE SEEN) Ur Culture Indicated? No Imaging Data Chest x-ray: Radiologist's impression: ITS Impressions Chest X-Ray 06/25/25 16:05 IMPRESSION: No acute process. Impression dictated by: Mark Funez M.D. 06/25/2025 5:16 PM Dictation Location: [place] [address] Electronically authenticated by: [id number] Y Date: 06/25/2025 17:16 Discharge Plan Discharge Chief Complaint: Weakness Clinical Impression: Weakness, Acute vaginitis Patient Disposition: Admitted as Observation Time of Disposition Decision: 18:57 Condition: Fair
[2025-06-25 16:33] LABS: Hematocrit 37.8 % (36.0-48.0); Hemoglobin 11.8 g/dL (12.0-16.0); Immature Granulocytes Abs Auto 0.22 10^3/uL (0.00-0.03); Immature Granulocytes Pct Auto 2.1 % (0.0-0.5); Lymphocytes Absolute Auto 2.9 10^3/uL (1.2-3.8); Mean Corpuscular HGB Conc 31.2 g/dL (29.9-35.2); Mean Corpuscular Hemoglobin 27.1 pg (26.7-34.0); Mean Corpuscular Volume 86.9 fL (81.0-99.0); Platelet Count 278 10^3/uL (150-450); Red Blood Count 4.35 10^6/uL (4.20-5.40); White Blood Count 10.5 10^3/uL (4.0-11.0)
[2025-06-25 16:39] VITALS: O2SAT 97
[2025-06-25 16:47] LABS: Alanine Aminotransferase 24 U/L (14-59); Albumin Globulin Ratio 0.9; Albumin Level 3.8 g/dL (3.4-5.0); Alkaline Phosphatase 135 U/L (46-116); Anion Gap 11.6; Aspartate Amino Transferase 16 U/L (15-37); Blood Urea Nitrogen 35.0 mg/dL (7.0-18.0); Calcium 9.7 mg/dL (8.5-10.1); Carbon Dioxide 28.0 mmol/L (21.0-32.0); Chloride 106 mmol/L (98-107); Estimated GFR (African America 31 (>=60 mL/min/1.73m^2); Estimated GFR (Non-African Ame 26 (>=60 mL/min/1.73m^2); Globulin 4.1 g/dL; Glucose 123 mg/dL (74-106); Potassium 5.6 mmol/L (3.5-5.1); Sodium 140 mmol/L (136-145); Total Protein 7.9 g/dL (6.4-8.2)
[2025-06-25 16:57] LABS: Glucose Urine UA NEGATIVE (NEGATIVE)
--- OUTSIDE RECORDS SUMMARY | 2025-06-25 16:58 | XMS_ITS | Encounter Summary ---
Author Organization [facility] Address [address], [address] [place] [address] Care Team Providers Care Enterprise Application Analyst Name Role Phone Kalin Santos DO Primary Care Provider Unavaila ble Encounter Details Date Type Department Care Team (Late st Contact Info) Description 05/12/2016 PAT Telephone STV Pre-Admit Testing [address] [place] [address] Marci Canchola RN Social History Tobacco Use [...] documented as of this encounter Care Teams Enterprise Application Analyst Relationship Specialty Start Date End Date Kalin Santos DO [address] [place] [address] PCP - General 06/22/16 documented as of this encounter
--- OUTSIDE RECORDS SUMMARY | 2025-06-25 16:58 | XMS_ITS | Encounter Summary ---
Author Organization [facility] Address [address], [address] [place] [address] Care Team Providers Care Machine Filler Shredder Name Role Phone Kalin Santos DO Primary Care Provider Unavaila ble Reason for Visit * Reason Comments Medication Refill Encounter Details Date Type Department Care Team (Late st Contact Info) Description 03/28/2012 Refill [facility] [address] [place] [phone] Antoni Anne MD [address] [place] [address] Medication Refill Social History Tobacco Use Types [...] documented as of this encounter Care Teams Machine Filler Shredder Relationship Specialty Start Date End Date Kalin Santos DO [address] [place] [address] PCP - General 06/22/16 documented as of this encounter
--- OUTSIDE RECORDS SUMMARY | 2025-06-25 16:58 | XMS_ITS | Encounter Summary ---
Author Organization [facility] Address [address], [address] [place] [address] Care Team Providers Care Supervisor Tree Trimming Name Role Phone Kalin Santos DO Primary Care Provider Unavaila ble Reason for Visit * Reason Comments Medication Refill Encounter Details Date Type Department Care Team (Late st Contact Info) Description 11/15/2011 Refill [facility] [address] [place] [phone] Antoni Anne MD [address] [place] [address] Medication Refill Social History Tobacco Use Types [...] documented as of this encounter Care Teams Supervisor Tree Trimming Relationship Specialty Start Date End Date Kalin Santos DO [address] [place] [address] PCP - General 06/22/16 documented as of this encounter
--- OUTSIDE RECORDS SUMMARY | 2025-06-25 16:58 | XMS_ITS | Encounter Summary ---
Author Organization [facility] Address [address], [address] [place] [address] Care Team Providers Care Sales Support Technician Name Role Phone Kalin Santos DO Primary Care Provider Unavaila ble Reason for Visit * Reason Comments Medication Refill Encounter Details Date Type Department Care Team (Late st Contact Info) Description 07/05/2012 Refill [facility] [address] [place] [phone] Antoni Anne MD [address] [place] [address] Medication Refill Social History Tobacco Use Types [...] documented as of this encounter Care Teams Sales Support Technician Relationship Specialty Start Date End Date Kalin Santos DO [address] [place] [address] PCP - General 06/22/16 documented as of this encounter
--- OUTSIDE RECORDS SUMMARY | 2025-06-25 16:58 | XMS_ITS | Encounter Summary ---
Author Organization [facility] Address [address], [address] [place] [address] Care Team Providers Care Combination Welder Apprentice Name Role Phone Kalin Santos DO Primary Care Provider Unavaila ble Reason for Visit * Reason Comments Medication Refill Encounter Details Date Type Department Care Team (Late st Contact Info) Description 06/26/2012 Refill [facility] [address] [place] [phone] Antoni Anne MD [address] [place] [address] Medication Refill Social History Tobacco Use Types [...] documented as of this encounter Care Teams Combination Welder Apprentice Relationship Specialty Start Date End Date Kalin Santos DO [address] [place] [address] PCP - General 06/22/16 documented as of this encounter
--- OUTSIDE RECORDS SUMMARY | 2025-06-25 16:58 | XMS_ITS | Patient Health Record ---
Author Organization [facility] in [place] Address [address] [place] [address] Care Team Providers Care Agriculture Research Director Name Role Phone Atiya Srivastava Primary Care Provider David Ayala [phone] Allergies Allergen (clinical drug ingredient) Drug/Non Drug Allergy documented on EMR Reaction Allergy Type Onset Date Status codeine Codeine Sulfate TABS (uncoded) dizzy Allergy Active Latex Latex (uncoded) rash Allergy Acti ve Demerol TABS dizzy Drug Allergy Acti ve Substance with sulfonamide structure and antibacterial mechanism of action (substance) Sulfa Antibiotics rash Drug Allergy Active Results Component Value Reference Range Notes VITAMIN D 25 HYD TOT Reviewed date:03/06/2025 08:45:29 AM Interpretation: Performing Lab: Notes/Report: VITAMIN D 25 HYD TOT 35.4 30.0-100.0 ng/mL Vitamin D status 25 [place] Vitamin D Deficiency <20 ng/mL Insufficiency 20-29 ng/mL Sufficiency 30-100 ng/mL Toxicity >100 ng/mL NOTE: A pediatric reference range has not been established by the bobbin hauler of this kit. The [place] [employer] recommends a Vitamin D level of = or >20ng/mL in infants and children. PERFORMED AT [facility] [place] [address],[place] [address] IRON PROFILE ([facility]) Reviewed date:03/06/2025 08:45:29 AM Interpretation: Performing Lab: Notes/Report: IRON 48 50-170 ug/dL TRANSFERRIN 368 168-336 mg/dL IRON BINDING 515 250-425 ug/dL IRON SATURATION 9 15-50 % SATURATION PERFORMED AT [address] [place] [id number] INSULIN Reviewed date:03/06/2025 08:45:29 AM Interpretation: Performing Lab: Notes/Report: INSULIN 19.48 1.00-23.00 uIU/mL Ref. range is for FASTING NON-DIABETIC POPULATION[place] [address] HGB A1C (GLYCO-HGB) Reviewed date:04/10/2025 12:47:56 PM Interpretation: Performing Lab: Notes/Report: HEMOGLOBIN A1C 5.9 4.4-5.6 % ADA Guidelines Result HgbA1c Normal : less than 5.7 % Prediabetes : 5.7 % to 6.4 % Diabetes : > 6.4 % Use with caution in patients with abnormal hemoglobin variants as the half-life of red blood cells and in vivo glycation rates are affected. EST. AVERAGE GLUCOSE [address] PERFORMED AT [address] [address] LIPID PANEL Reviewed date:03/06/2025 08:45:29 AM Interpretation: Performing Lab: Notes/Report: CHOLESTEROL 186 150-200 mg/dL TRIGLYCERIDE 217 27-150 mg/dL HDL CHOLESTEROL 43 >39 mg/dL HDL <40 mg/dL - High Risk HDL > or = 40mg/dL- Desirable HDL >60 mg/dL - Negative Risk LDL (CALC) 100 <130 mg/dL LDL <100 mg/dL - Desirable LDL >160 mg/dL - High Risk CHOLESTEROL:HDL 4.3 1.0-5.0 NA VERY LOW LIPOPROTEIN 43 0-30 mg/dL PERFORMED AT [address] [place], [place] [id number] PROF CHEM 8 (BAS METB) Reviewed date:03/06/2025 08:45:29 AM Interpretation: Performing Lab: Notes/Report: [facility] , Sodium 139 136-145 mmol/L Potassium 5.2 3.5-5.1 mmol/L Chloride 103 98-107 mmol/L Carbon Dioxide 26.4 21.0-32.0 mmol/L Anion Gap 14.8 Glucose 196 74-106 mg/dL Blood Urea Nitrogen 27.0 7.0-18.0 mg/dL Creatinine 2.23 0.55-1.02 mg/dL Estimated GFR ( Simona 25 >=60 mL/min/1.73m 2 Estimated GFR (Non- Eva 21 >=60 mL/min/1.73m 2 BUN Creatinine Ratio 12.1 Calcium 8.6 8.5-10.1 mg/dL Performing Lab: see note ML - [facility] LB ECG 12 lead Reviewed date:03/06/2025 08:45:29 AM Interpretation: Performing Lab: Notes/Report: Source Facility: [facility] [place] [address] [place] [address] Electrocardiograph Report Signed Patient: VIDHYA REGALADO MR#: [id number] : 1940 Acct:[id number] Age/Sex: 84 / F ADM Date: 03/05/25 Loc: ER Attending Dr: Ordering Physician: Jackelyn Arreola Date of Service: 03/05/25 Procedure(s): ECG 12 lead Accession Number(s): [id number] cc: [facility] Test Date: 2025-03-05 Pat Name: VIDHYA REGALADO Department: Room: - Gender: Female Yarn Wrapper: : 1940 Requested By: 1854 Order Number: [id number] Reading MD: JANNA ALTAMIRANO M.D. Measurements Intervals [place] Rate: 53 P: 60 [place]: 210 QRS: -4 QRSD: 118 T: 15 QT: 444 QTc: 428 Interpretive Statements 1100 Sinus rhythm 2231 First degree AV block 2440 Incomplete right bundle branch block 8102 Low QRS voltage in chest leads 9150 abnormal ECG Compared to ECG 08/30/2020 17:27:03 First degree AV block now present Incomplete right bundle-branch block now present Electronically Signed On 03-05-2025 17:21:02 EDT by JANNA ALTAMIRANO M.D. Dictated By: JANNA ALTAMIRANO Signed By: 03/05/251720 DD/ 48 TD/TT: Clam Bed Laborer: [place] [address] Electrocardiograph Report Signed Patient: VIDHYA REGALADO MR#: [id number] : 1940 Acct:[id number] Age/Sex: 84 / F ADM Date: 03/05/25 Loc: ER Attending Dr: Ordering Physician: Jackelyn Arreola Date of Service: 03/05/25 Procedure(s): ECG 12 lead Accession Number(s): [id number] cc: [facility] Test Date: 2025-03-05 Pat Name: VIDHYA REGALADO Department: 05 Room: - Gender: Female Yarn Wrapper: : 1940 Requ ested By: 4 Order Number: [id number] Reading MD: JANNA ALTAMIRANO M.D. Measurements Intervals [place] Rate: 53 P: 60 [place]: 210 QRS: -4 QRSD: 118 T: 15 QT: 444 QTc: 428 Interpretive Statements 1100 Sinus rhythm 2231 First degree AV block 2440 Incomplete righ t bundle branch block 8102 Low QRS voltage in chest leads 9150 abnormal ECG Compared to ECG 08/30/2020 17:27:03 First degree AV bloc k now present Incomplete right bundle-branch block now present Electronically Scarlett d On 03-05-2025 17:21:02 EDT by JANNA ALTAMIRANO M.D. Dictated By: JANNA ALTAMIRANO Signed By: 03/05/251720 DD/ 48 TD/TT: Clam Bed Laborer: MAGNESIUM Reviewed date:03/06/2025 12:19:06 PM Interpretation: Performing Lab: Notes/Report: Comment am blood? [facility] , Magnesium 2.1 1.8-2.4 mg/dL Performing Lab: see note ML - [facility] LB PROF CHEM 8 (BAS METB) Reviewed date:03/06/2025 12:19:06 PM Interpretation: Performing Lab: Notes/Report: [facility] , Sodium 137 136-145 mmol/L Potassium 5.6 3.5-5.1 mmol/L Chloride 102 98-107 mmol/L Carbon Dioxide 27.0 21.0-32.0 mmol/L Anion Gap 13.6 Glucose 115 74-106 mg/dL Blood Urea Nitrogen 26.0 7.0-18.0 mg/dL Creatinine 2.38 0.55-1.02 mg/dL Estimated GFR ( Simona 23 >=60 mL/min/1.73m 2 Estimated GFR (Non- Eva 19 >=60 mL/min/1.73m 2 BUN Creatinine Ratio 10.9 Calcium 8.9 8.5-10.1 mg/dL Performing Lab: see note ML - [facility] LB UA RANDOM W or MICROSCOPIC Reviewed date:03/07/2025 04:59:39 PM Interpretation: Performing Lab: Notes/Report: [facility] , Color Urine LT. YELLOW YELLOW Clarity Urine CLEAR CLEAR Specific [place] Urine 1.015 1.005-1.025 pH Urine 6.0 5.0-9.0 Protein Urine NEGATIVE NEG/TRACE mg/dL Glucose Urine UA NEGATIVE NEGATIVE mg/dL Bilirubin Urine NEGATIVE NEGATIVE Ketones Urine NEGATIVE NEGATIVE mg/dL Blood Urine NEGATIVE NEGATIVE Nitrite Urine NEGATIVE NEGATIVE Urobilinogen Urine 0.2 0.2-1.0 EU/dL Leukocyte Esterase Urine NEGATIVE NEGATIVE WBC Urine 0-2 NONE SEEN #/HPF RBC Urine NONE SEEN 0-2 #/HPF Bacteria Urine NONE SEEN NONE SEEN #/HPF Mucus Urine NONE SEEN NONE SEEN Squamous Epithelial Cell Urine RARE NONE/RARE #/LPF Crystals Seen? None Seen None Seen #/HPF Cast Seen? NONE SEEN NONE SEEN #/LPF Urine Culture Indicated NO Performing Lab: see note ML - [facility] LB Urine Culture - FR Reviewed date:03/12/2025 08:01:02 PM Interpretation: Performing Lab: Notes/Report: [facility] , Urine Culture - [facility] See Below For Report Urine Culture - FR 25,000 colonies/ml mixed Urine Culture - FR bacterial skin contaminants Urine Culture - FR 25,000 colonies/ml mixed Urine Culture - FR 2 Days Urine Culture - FR 25,000 colonies/ml mixed Urine Culture - [facility] Urine Culture - FR 25,000 colonies/ml mixed Urine Culture - [facility] Testing performed a t [facility] Urine Culture - [facility] 25,000 colonies/ml mixed Urine Culture - [facility] [address] [place] [address] Urine Culture - [facility] 25,000 colonies/ml mixed Performing Lab: see note ML - [facility] LB URINE CULTURE Reviewed date:05/03/2025 12:01:18 PM Interpretation: Performing Lab:[facility] ([facility]), [address] [place] [address]., [address], [place]. [address] PH:[phone] Notes/Report: URINE CULTURE SEE RESULTS BELOW SPECIMEN SOURCE Urine Urine, Clean Catch Midstream CULTURE RESULTS ORGANISM 1: ESCHERICHIA COLI >100,000 CFU/mL Escherichia coli REPORT STATUS FINAL 05/03/2025 ESCHERICHIA COLI Interpretation Ampicillin <=2.0 S AMP/SULBACTAM <=2.0 S PIPERACIL/TAZOBACTA M <=4.0 S Cefazolin (non-urinary) 2.0 S Cefazolin (urinary) 2.0 S Ceftriaxone <=0.25 S Gentamicin <=1.0 S Ciprofloxacin <=0.06 S Levofloxacin <=0.12 S Nitrofurantoin <=16.0 S Trimethoprim + Sulfamethoxazole<=1 .0 S Urine received without preservative - delays in transport may affect results. Interpret with caution and clinical correlation is recommended. PERFORMED AT [address], [place] [address] URINALYSIS Reviewed date:05/02/2025 08:54:55 AM Interpretation: Performing Lab: Notes/Report: COLOR Yellow Yellow, Colorless TURBIDITY Clear Clear SPECIFIC GRAVITY <=1.005 1.003-1.035 NA NITRITE Negative Negative PH,URINE 6.0 5.0-8.5 NA LEUKOCYTE ESTERASE Trace Negative PROTEIN Negative Negative KETONES (URINE) Negative Negative UROBILINOGEN 0.2 eu/dL 0.2 eu/dL, 1.0 eu/dL BILIRUBIN (URINE) Negative Negative BLOOD/HGB Negative Negative SQUAMOUS EPITHELIUM 1 0-5 NA W.B.CELLS 20 0-5 NA GLUCOSE (URINE) Negative Negative, 250 mg/dL Urine received without preservative. Delays in transport may affect results. Interpret with caution. A clinical correlation is recommended. PERFORMED AT [address] [place] [address] URINE CULTURE Reviewed date:05/28/2025 04:54:52 PM Interpretation: Performing Lab:[facility] ([facility]), [address] [place], [place] [address]., [address], [place]. [address] PH:[phone] Notes/Report: URINE CULTURE SEE RESULTS BELOW SPECIMEN SOURCE Urine Urine CULTURE RESULTS ORGANISM 1: ESCHERICHIA COLI >100,000 CFU/mL Escherichia coli REPORT STATUS FINAL 05/25/2025 ESCHERICHIA COLI Interpretation Ampicillin <=2.0 S AMP/SULBACTAM <=2.0 S PIPERACIL/TAZOBACTA M <=4.0 S Cefazolin (non-urinary) <=1.0 S Cefazolin (urinary) <=1.0 S Ceftriaxone <=0.25 S Gentamicin <=1.0 S Ciprofloxacin <=0.06 S Levofloxacin <=0.12 S Nitrofurantoin <=16.0 S Trimethoprim + Sulfamethoxazole<=1 .0 S PERFORMED AT [address], [place] [address] URINE CULTURE Reviewed date:06/18/2025 10:29:29 AM Interpretation: Performing Lab:[facility] ([facility]), [address] [place] [address]., [address], [place]. [address] PH:[phone] Notes/Report: URINE CULTURE SEE RESULTS BELOW SPECIMEN SOURCE Urine Urine CULTURE RESULTS ORGANISM 1: ESCHERICHIA COLI >100,000 CFU/mL Escherichia coli REPORT STATUS FINAL 06/17/2025 ESCHERICHIA COLI Interpretation Ampicillin <=2.0 S AMP/SULBACTAM <=2.0 S PIPERACIL/TAZOBACTA M <=4.0 S Cefazolin (non-urinary) 2.0 S Cefazolin (urinary) 2.0 S Ceftriaxone <=0.25 S Gentamicin <=1.0 S Ciprofloxacin <=0.06 S Levofloxacin <=0.12 S Nitrofurantoin <=16.0 S Trimethoprim + Sulfamethoxazole<=1 .0 S Along with 10,000 to 50,000 CFU/mL Normal Urogenital Dania. Urine received without preservative - delays in transport may affect results. Interpret with caution and clinical correlation is recommended. PERFORMED AT [address],[place] [address] URINALYSIS Reviewed date:06/18/2025 10:30:28 AM Interpretation: Performing Lab: Notes/Report: COLOR Yellow Yellow TURBIDITY Cloudy Clear SPECIFIC GRAVITY 1.025 1.003-1.035 NA NITRITE Positive Negative PH,URINE 6.0 5.0-8.5 NA LEUKOCYTE ESTERASE Moderate Negative PROTEIN Trace Negative KETONES (URINE) Negative Negative UROBILINOGEN 0.2 eu/dL 0.2 eu/dL, 1.0 eu/dL BILIRUBIN (URINE) Negative Negative BLOOD/HGB Trace Negative R.B.CELLS 3 0-5 NA SQUAMOUS EPITHELIUM 2 0-5 NA W.B.CELLS >100 0-5 NA GLUCOSE (URINE) Negative Negative, 250 mg/dL Urine received without preservative. Delays in transport may affect results. Interpret with caution. A clinical correlation is recommended. PERFORMED AT [address] [place] [address] CBC AUTO DIFF (Not yet revie wed by provider) Interpretation: Performing Lab: Notes/Report: [facility] , White Blood Count 10.5 4.0-11.0 10 3/uL Red Blood Count 4.35 4.20-5.40 10 6/uL Hemoglobin 11.8 12.0-16.0 g/dL Hematocrit 37.8 36.0-48.0 % Mean Corpuscular Volume 86.9 81.0-99.0 fL Mean Corpuscular Hemoglobin 27.1 26.7-34.0 pg Mean Corpuscular HGB Conc 31.2 29.9-35.2 g/dL Red Cell Distribution Width 15.7 11.0-15.0 % Platelet Count 278 150-450 10 3/uL Mean Platelet Volume 9.8 9.5-13.5 fL Neutrophils Percent Auto 59.3 43.0-75.0 % Lymphocytes Percent Auto 27.9 20.5-60.0 % Monocytes Percent Auto 8.4 1.7-12.0 % Eosinophils Percent Auto 1.5 0.9-7.0 % Basophils Percent Auto 0.8 0.2-2.0 % Immature Granulocytes Pct Auto 2.1 0.0-0.5 % Neutrophils Absolute Auto 6.2 1.4-6.5 10 3/uL Lymphocytes Absolute Auto 2.9 1.2-3.8 10 3/uL Monocytes Absolute Auto 0.9 0.3-0.8 10 3/uL Eosinophils Absolute Auto 0.2 0.0-0.7 10 3/uL Basophils Absolute Auto 0.1 0.0-0.1 10 3/uL Immature Granulocytes Abs Auto 0.22 0.00-0.03 10 3/uL Performing Lab: see note ML - [facility] LB PROF 14(COMP METB) (Not yet reviewed by provider) Interpretation: Performing Lab: Notes/Report: [facility] , Sodium 140 136-145 mmol/L Potassium 5.6 3.5-5.1 mmol/L Chloride 106 98-107 mmol/L Carbon Dioxide 28.0 21.0-32.0 mmol/L Anion Gap 11.6 Glucose 123 74-106 mg/dL Blood Urea Nitrogen 35.0 7.0-18.0 mg/dL Creatinine 1.87 0.55-1.02 mg/dL Estimated GFR ( Simona 31 >=60 mL/min/1.73m 2 Estimated GFR (Non- Eva 26 >=60 mL/min/1.73m 2 BUN Creatinine Ratio 18.7 Calcium 9.7 8.5-10.1 mg/dL Bilirubin Total 0.3 0.2-1.0 mg/dL Aspartate Amino Transferase 16 15-37 U/L Alanine Aminotransferase 24 14-59 U/L Alkaline Phosphatase 135 46-116 U/L Total Protein 7.9 6.4-8.2 g/dL Albumin Level 3.8 3.4-5.0 g/dL Globulin 4.1 Albumin Globulin Ratio 0.9 Performing Lab: see note ML - [facility] LB Troponin I High Sensitivity (Not yet reviewed by provider) Interpretation: Performing Lab: Notes/Report: [facility] , Troponin I High Sensitivity 14.9 4.0-51.3 pg/mL CUT-OFF POINTS HAVE BEEN ESTABLISHED BASED ON THE FOURTH UNIVERSAL DEFINITION OF MYOCARDIAL INFARCTION. THE UPPER REFERENCE LIMIT (URL) OF TROPONIN, DEFINED THE 99TH PERCENTILE OF cTnI DISTRIBUTION IN A REFERENCE POPULATION, HAS BEEN CONFIRMED THE DECISION THRESHOLD FOR ME DIAGNOSIS. 99TH PERCENTILE = 51.4 PG/ML NOTE: HIGH-SENSITIVITY TROPONIN ASSAY IS NOT INTENDED TO BE USED IN ISOLATION BUT SHOULD BE INTERPRETED IN CONJUNCTION WITH OTHER DIAGNOSTIC AND CLINICAL INFORMATION. Performing Lab: see note ML - [facility] LB BMP w/GFR Reviewed date:04/11/2025 09:49:53 PM Interpretation: Performing Lab: Notes/Report: SODIUM 135 134-146 mmol/L POTASSIUM 4.9 3.5-5.0 mmol/L CHLORIDE 102 98-109 mmol/L CARBON DIOXIDE 21 22-32 mmol/L ANION GAP 12 5-15 mmol/L BLOOD UREA NITROGEN 29 5-27 mg/dL CREATININE 2.29 0.40-1.00 mg/dL METHOD TRACE ABLE TO IDMS STANDARD GLUCOSE 188 65-99 mg/dL CALCIUM 9.4 8.5-10.5 mg/dL EGFR (CKD-EPI) NON-RACE DEPENDENT 20 >=60 ml/min/1.73sq.m eGFR not reported due to non-numeric value for Creatinine. Reported eGFR is based on the CKD-EPI 2020 equation that does not use a race coefficient. PERFORMED AT [address] [place] [address] CBC AUTO DIFF Reviewed date:03/07/2025 04:59:39 PM Interpretation: Performing Lab: Notes/Report: [facility] , White Blood Count 7.3 4.0-11.0 10 3/uL Red Blood Count 3.63 4.20-5.40 10 6/uL Hemoglobin 10.7 12.0-16.0 g/dL Hematocrit 33.5 36.0-48.0 % Mean Corpuscular Volume 92.3 81.0-99.0 fL Mean Corpuscular Hemoglobin 29.5 26.7-34.0 pg Mean Corpuscular HGB Conc 31.9 29.9-35.2 g/dL Red Cell Distribution Width 15.2 11.0-15.0 % Platelet Count 200 150-450 10 3/uL Mean Platelet Volume 10.3 9.5-13.5 fL Neutrophils Percent Auto 51.7 43.0-75.0 % Lymphocytes Percent Auto 32.4 20.5-60.0 % Monocytes Percent Auto 12.0 1.7-12.0 % Eosinophils Percent Auto 2.3 0.9-7.0 % Basophils Percent Auto 1.0 0.2-2.0 % Immature Granulocytes Pct Auto 0.6 0.0-0.5 % Neutrophils Absolute Auto 3.8 1.4-6.5 10 3/uL Lymphocytes Absolute Auto 2.4 1.2-3.8 10 3/uL Monocytes Absolute Auto 0.9 0.3-0.8 10 3/uL Eosinophils Absolute Auto 0.2 0.0-0.7 10 3/uL Basophils Absolute Auto 0.1 0.0-0.1 10 3/uL Immature Granulocytes Abs Auto 0.04 0.00-0.03 10 3/uL Performing Lab: see note - [facility] PROF CHEM 8 (Growing Stars METB) Reviewed date:03/07/2025 04:59:39 PM Interpretation: Performing Lab: Notes/Report: [facility] , Sodium 140 136-145 mmol/L Potassium 5.1 3.5-5.1 mmol/L Chloride 102 98-107 mmol/L Carbon Dioxide 28.1 21.0-32.0 mmol/L Anion Gap 15.0 Glucose 119 74-106 mg/dL Blood Urea Nitrogen 26.0 7.0-18.0 mg/dL Creatinine 2.28 0.55-1.02 mg/dL Estimated GFR ( Simona 25 >=60 mL/min/1.73m 2 Estimated GFR (Non- Eva 20 >=60 mL/min/1.73m 2 BUN Creatinine Ratio 11.4 Calcium 8.6 8.5-10.1 mg/dL Performing Lab: see note [facility] PROF CHEM 8 (Growing Stars METB) Reviewed date:03/06/2025 04:03:20 PM Interpretation: Performing Lab: Notes/Report: [facility] , Sodium 138 136-145 mmol/L Potassium 5.6 3.5-5.1 mmol/L Chloride 101 98-107 mmol/L Carbon Dioxide 28.6 21.0-32.0 mmol/L Anion Gap 14.0 Glucose 129 74-106 mg/dL Blood Urea Nitrogen 26.0 7.0-18.0 mg/dL Creatinine 2.47 0.55-1.02 mg/dL Estimated GFR ( Simona 23 >=60 mL/min/1.73m 2 Estimated GFR (Non- Eva 19 >=60 mL/min/1.73m 2 BUN Creatinine Ratio 10.5 Calcium 9.2 8.5-10.1 mg/dL Performing Lab: see note - [facility] CBC no Diff (Hemogram) Reviewed date:03/06/2025 08:45:29 AM Interpretation: Performing Lab: Notes/Report: [facility] , White Blood Count 7.5 4.0-11.0 10 3/uL Red Blood Count 3.73 4.20-5.40 10 6/uL Hemoglobin 10.8 12.0-16.0 g/dL Hematocrit 33.9 36.0-48.0 % Mean Corpuscular Volume 90.9 81.0-99.0 fL Mean Corpuscular Hemoglobin 29.0 26.7-34.0 pg Mean Corpuscular HGB Conc 31.9 29.9-35.2 g/dL Red Cell Distribution Width 15.1 11.0-15.0 % Platelet Count 211 150-450 10 3/uL Mean Platelet Volume 11.2 9.5-13.5 fL Performing Lab: see note - [facility] PROF CHEM 8 (BAS METB) Reviewed date:03/06/2025 08:45:29 AM Interpretation: Performing Lab: Notes/Report: [facility] , Sodium 138 136-145 mmol/L Potassium 5.4 3.5-5.1 mmol/L Chloride 104 98-107 mmol/L Carbon Dioxide 25.0 21.0-32.0 mmol/L Anion Gap 14.4 Glucose 82 74-106 mg/dL Blood Urea Nitrogen 26.0 7.0-18.0 mg/dL Creatinine 2.00 0.55-1.02 mg/dL Estimated GFR ( Simona 29 >=60 mL/min/1.73m 2 Estimated GFR (Non- Eva 24 >=60 mL/min/1.73m 2 BUN Creatinine Ratio 13.0 Calcium 8.9 8.5-10.1 mg/dL Performing Lab: see note - [facility] LB PROF 14(COMP METB) Reviewed date:03/06/2025 08:45:29 AM Interpretation: Performing Lab: Notes/Report: [facility] , Sodium 137 136-145 mmol/L Potassium 6.5 3.5-5.1 mmol/L RESULTS MENDOZA D TO Dr. Arreola Chloride 103 98-107 mmol/L Carbon Dioxide 28.1 21.0-32.0 mmol/L Anion Gap 12.4 Glucose 91 74-106 mg/dL Blood Urea Nitrogen 26.0 7.0-18.0 mg/dL Creatinine 2.24 0.55-1.02 mg/dL Estimated GFR ( Simona 25 >=60 mL/min/1.73m 2 Estimated GFR (Non- Eva 21 >=60 mL/min/1.73m 2 BUN Creatinine Ratio 11.6 Calcium 9.2 8.5-10.1 mg/dL Bilirubin Total 0.3 0.2-1.0 mg/dL Aspartate Amino Transferase 16 15-37 U/L Alanine Aminotransferase 18 14-59 U/L Alkaline Phosphatase 85 46-116 U/L Total Protein 7.4 6.4-8.2 g/dL Albumin Level 3.9 3.4-5.0 g/dL Globulin 3.5 Albumin Globulin Ratio 1.1 Performing Lab: see note ML - [facility] LB CBC AUTO DIFF Reviewed date:03/06/2025 08:45:29 AM Interpretation: Performing Lab: Notes/Report: [facility] , White Blood Count 9.0 4.0-11.0 10 3/uL Red Blood Count 4.06 4.20-5.40 10 6/uL Hemoglobin 11.9 12.0-16.0 g/dL Hematocrit 36.9 36.0-48.0 % Mean Corpuscular Volume 90.9 81.0-99.0 fL Mean Corpuscular Hemoglobin 29.3 26.7-34.0 pg Mean Corpuscular HGB Conc 32.2 29.9-35.2 g/dL Red Cell Distribution Width 14.9 11.0-15.0 % Platelet Count 231 150-450 10 3/uL Mean Platelet Volume 10.6 9.5-13.5 fL Neutrophils Percent Auto 56.8 43.0-75.0 % Lymphocytes Percent Auto 31.8 20.5-60.0 % Monocytes Percent Auto 8.1 1.7-12.0 % Eosinophils Percent Auto 2.1 0.9-7.0 % Basophils Percent Auto 0.6 0.2-2.0 % Immature Granulocytes Pct Auto 0.6 0.0-0.5 % Neutrophils Absolute Auto 5.1 1.4-6.5 10 3/uL Lymphocytes Absolute Auto 2.9 1.2-3.8 10 3/uL Monocytes Absolute Auto 0.7 0.3-0.8 10 3/uL Eosinophils Absolute Auto 0.2 0.0-0.7 10 3/uL Basophils Absolute Auto 0.1 0.0-0.1 10 3/uL Immature Granulocytes Abs Auto 0.05 0.00-0.03 10 3/uL Performing Lab: see note ML - [facility] LB URINALYSIS Reviewed date:05/25/2025 10:37:04 AM Interpretation: Performing Lab: Notes/Report: COLOR Yellow Yellow, Colorless TURBIDITY Hazy Clear SPECIFIC GRAVITY 1.020 1.003-1.035 NA NITRITE Positive Negative PH,URINE 6.0 5.0-8.5 NA LEUKOCYTE ESTERASE Moderate Negative PROTEIN Trace Negative KETONES (URINE) Negative Negative UROBILINOGEN 0.2 eu/dL 0.2 eu/dL, 1.0 eu/dL BILIRUBIN (URINE) Negative Negative BLOOD/HGB Negative Negative R.B.CELLS 3 0-5 NA SQUAMOUS EPITHELIUM 1 0-5 NA W.B.CELLS 90 0-5 NA GLUCOSE (URINE) Negative Negative, 250 mg/dL PERFORMED AT [address] [place] [address] MR cervical spine wo con Reviewed date:05/15/2025 07:26:45 PM Interpretation: Performing Lab: Notes/Report: Source Facility: [place] [address] Magnetic Resonance Report Signed Patient: VIDHYA REGALADO MR#: [id number] : 1940 Acct:[id number] Age/Sex: 84 / F ADM Date: 05/15/25 Loc: MRI Attending Dr: Kael Ayala M.D. Ordering Physician: Kael Ayala M.D. Date of Service: 05/15/25 Procedure(s): MR cervical spine wo con Accession Number(s): [id number] cc: ATIYA SRIVASTAVA ; Kael Ayala M.D. [place] [address] Patient Name: VIDHYA REGALADO MRN: [id number] date: 1940 Sex: F Assigned Patient Location: MRI Current Patient Location: MRI Accession/Order Number: [id number] Exam Date: 05/15/2025 15:07 Report Date: 05/15/2025 15:20 At the request of: KAEL AYALA MD Procedure: MR cervical spine wo con MR cervical spine wo con 05/15/2025:51 AM SIGNS AND SYMPTOMS: Recent fall, chronic neck pain right greater than left PROTOCOL: Multiplanar multisequence MR images of the cervical spine without IV contrast COMPARISON: None. FINDINGS: There is preservation of vertebral body heights. Posterior decompression from C3 through C6. This is similar to the prior CT. There is reversal of the normal cervical lordosis with 5 mm of anterolisthesis of C3 upon C4 which is unchanged. There is 4 mm of anterolisthesis of C2 upon C3. The marrow signal is within normal limits. Severe degenerative changes are noted at the craniocervical junction and along the lateral axial joint, better demonstrated on the previous CT. There is chronic myelomalacia at C3-C4. No epidural or paraspinous fluid collection is appreciated. The visualized paraspinous soft tissues are within normal limits. The prevertebral soft tissues are within normal limits. 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 At C2-C3: Facet hypertrophy is present bilaterally without joint spurring contributing to moderate to severe bilateral neural foraminal narrowing and moderate spinal canal stenosis. At C3-C4: There is facet hypertrophy with uncovertebral joint spurring contributing to moderate to severe left and severe right neural foraminal narrowing with moderate to severe spinal canal narrowing. There is underlying chronic myelomalacia within the cord at this level. At C4-C5: There is operative joint spurring and facet hypertrophy with posterior decompression. There is mild spinal canal narrowing with moderate right and mild left neural foraminal stenosis. At C5-C6: There is operative joint spurring and facet hypertrophy with posterior decompression. There is mild spinal canal narrowing with moderate right and mild left neural foraminal stenosis. At C6-C7: There is operative joint spurring and facet hypertrophy with posterior decompression. There is mild spinal canal narrowing with mild bilateral neural foraminal stenosis. At C7-T1: There is a normal disc, central canal, and neural foramen. MR/MR cervical spine wo con IMPRESSION: At C3-C4: There is facet hypertrophy with uncovertebral joint spurring contributing to moderate to severe left and severe right neural foraminal narrowing with moderate to severe spinal canal narrowing. There is underlying chronic myelomalacia within the cord at this level. Additional significant but lesser degrees of spinal canal and neural foraminal narrowing is noted as above. There is reversal of the normal cervical lordosis with 5 mm of anterolisthesis of C3 upon C4 which is unchanged. There is 4 mm of anterolisthesis of C2 upon C3. There is posterior decompression from C3 through C6 which is unchanged. Impression dictated by: Cheng Bartlett M.D. 05/15/2025 3:20 PM Dictation Location: [place] [address] Electronically authenticated by: [id number] Y Date: 05/15/2025 15:20 Dictated By: Cheng Bartlett M.D. Signed By: 05/15/25 1523 DD/ 1520 TD/TT: Clam Bed Laborer: [place] [address] Magnetic Resonance Report Signed Patient: VIDHYA REGALADO MR#: [id number] : 1940 Acct:[id number] Age/Sex: 84 / F ADM Date: 05/15/25 Loc: MRI Attending Dr: Julia Ayala M.D. Ordering Physician: Kael Ayala M.D. Date of Service: 05/15/25 Procedure(s): MR cer vical spine wo con Accession Number(s): [id number] cc: ATIYA SRIVASTAVA ; Kael Ayala M.D. [place] [address] Patient Name: VIDHYA REGALADO MRN: [id number] date: 1940 Sex: F Assigned Patient Location: MRI Current Patient Loca tion: MRI Accession/Order Numb er: [id number] Exam Date: 05/15/2025 15:07 Report Date: 05/15/2025 15:20 At the request of: KAEL AYALA MD Procedure: MR cervic al spine wo con MR cervical spine wo con 05/15/2025:51 AM SIGNS AND SYMPTOMS: Recent fall, chronic neck pain right greater than left PROTOCOL: Multiplana r multisequence MR images of the cervical spine without IV contrast COMPARISON: None. FINDINGS: There is preservation of vertebral body heights. Posterior decompression from C 3 through C6. This is similar to the prior CT. There is reversal of the norm al cervical lordosis with 5 mm of anterolisthesis of C3 upon C4 which is unchanged. There is 4 mm of anterolisthesis of C2 upon C3. The marrow signal is within normal limits. Severe degenerative changes are noted at the craniocervical junction and along the lateral axial joint, better demonstrated on the previous CT. There is chronic myelomalacia at C3-C4. No epidural or paraspin ous fluid collection is appreciated. The visualized paraspinous soft tis sues are within normal limits. The prevertebral soft tissues are within n ormal limits. 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 At C2-C3: Facet hypertrophy is present bilaterally without joint spurring contributing to mode rate to severe bilateral neural foraminal narrowing and moderate spinal chuck l stenosis. At C3-C4: There is f acet hypertrophy with uncovertebral joint spurring contributing to mode rate to severe left and severe right neural foraminal narrowing with moder ate to severe spinal canal narrowing. There is underlying chronic myelomalacia within the cord at this level. At C4-C5: There is operative joint spurring and facet hypertrophy with posterior decompress ion. There is mild spinal canal narrowing with moderate right and mild left neural foraminal stenosis. At C5-C6: There is operative joint spurring and facet hypertrophy with posterior decompress ion. There is mild spinal canal narrowing with moderate right and mild left neural foraminal stenosis. At C6-C7: There is operative joint spurring and facet hypertrophy with posterior decompress ion. There is mild spinal canal narrowing with mild bilateral neural foraminal stenosis. At C7-T1: There is a normal disc, central canal, and neural foramen. M R/MR cervical spine wo con IMPRESSION: At C3-C4: There is f acet hypertrophy with uncovertebral joint spurring contributing to mode rate to severe left and severe right neural foraminal narrowing with moder ate to severe spinal canal narrowing. There is underlying chronic myelomalacia within the cord at this level. Additional significa nt but lesser degrees of spinal canal and neural foraminal narrowing is noted a s above. There is reversal of the normal cervical lordosis with 5 mm of anterolisthesis of C3 upon C4 which is unchanged. There is 4 mm of anterolisthesis of C2 upon C3. There is posterior decompression from C3 through C6 which is unchanged. Impression dictated by: Cheng Bartlett M.D. 05/15/2025 3:20 PM Dictation Location: [place] [address] Electronically authenticated by: [id number] Y Date: 05/15/2025 15:20 Dictated By: Cheng Bartlett M.D. Signed By: 05/15/25 1523 DD/ 1520 TD/TT: Clam Bed Laborer: PROF NYLA Holland (PAOLA DONALD) Reviewed date:03/08/2025 12:30:42 PM Interpretation: Performing Lab: Notes/Report: [facility] , Sodium 139 136-145 mmol/L Potassium 4.3 3.5-5.1 mmol/L Chloride 104 98-107 mmol/L Carbon Dioxide 29.8 21.0-32.0 mmol/L Anion Gap 9.5 Glucose 117 74-106 mg/dL Blood Urea Nitrogen 32.0 7.0-18.0 mg/dL Creatinine 1.97 0.55-1.02 mg/dL Estimated GFR ( Simona 29 >=60 mL/min/1.73m 2 Estimated GFR (Non- Eva 24 >=60 mL/min/1.73m 2 BUN Creatinine Ratio 16.2 Calcium 9.2 8.5-10.1 mg/dL Performing Lab: see note ML - [facility] PROF NYLA Holland (PAOLA DONALD) Reviewed date:03/07/2025 04:59:39 PM Interpretation: Performing Lab: Notes/Report: [facility] , Sodium 140 136-145 mmol/L Potassium 4.7 3.5-5.1 mmol/L Chloride 103 98-107 mmol/L Carbon Dioxide 30.5 21.0-32.0 mmol/L Anion Gap 11.2 Glucose 116 74-106 mg/dL Blood Urea Nitrogen 29.0 7.0-18.0 mg/dL Creatinine 2.13 0.55-1.02 mg/dL Estimated GFR ( Simona 27 >=60 mL/min/1.73m 2 Estimated GFR (Non- Eva 22 >=60 mL/min/1.73m 2 BUN Creatinine Ratio 13.6 Calcium 9.0 8.5-10.1 mg/dL Performing Lab: see note ML - [facility] Reason For Referral Reason home health, pt and ot Diagnosis 1 Generalized weakness (R53.1) Referral Organization [facility] Referring Provider First Name Atiya Referring Provider Last Name Carola Referring Provider [facility] Referred Provider [facility] Referred Provider Specialty Home Health Agency Referral Priority Routine Reason needs home health ai de and nursing for labs Diagnosis 1 Generalized weakness (R53.1) Diagnosis 2 Chronic kidney disea se, stage 4 (severe) (N18.4) Diagnosis 3 Peripheral vascular disease, unspecified (I73.9) Referral Organization [facility] Referring Provider First Name Atiya Referring Provider Last Name Carola Referring Provider [facility] Referred Provider [facility] Referred Provider Specialty [facility] Referral Priority Routine Medications Medication SIG (Take, Route, Frequency, Duration) Notes Start Date End Date Status risperiDONE 0.25 MG TAKE 2 TABLETS BY MOUTH EVERY DAY FOR 90 DAYS for 90 Active Levothyroxine Sodium 50 MCG TAKE 1 TABLET BY MOUTH EVERY DAY IN THE MORNING ON AN EMPTY STOMACH for 90 Active Donepezil HCl 5 MG take 1 tablet by mouth at bedtime for 90 Active Cyclobenzaprine HCl 5 MG 1 tablet Orally am & noon per Dr Anne Active Colchicine 0.6 MG 1/2 tablet Orally once for 1 days may repeat dose in 3 days 03/06/2024 Active Indomethacin 50 MG 1 capsule with food or milk, PRN pain Orally TID for 30 02/14/2024 Active Incentive spirometer 12/07/2024 Active Gabapentin 300 MG 1 capsule Orally TID per Dr Anne Active Flexeril 10 MG 1 tablet Orally Q HS per Dr Anne Active Vitamin B12 100 MCG Orally Active Spironolactone 25 MG TAKE 1 TABLET BY MOUTH EVERY DAY for 90 days Active Lexapro 20 MG 0.5 tablet Orally Once a day Active Wheelchair with Standard Foot Rests With Use As Directed 12/01/2024 Active levoFLOXacin 250 MG 1 tablet Orally Once a day for 5 days 06/15/2025 Active Cefdinir 300 MG one capsule Orally daily for 7 days cr clearance 23 04/09/2025 Active Atenolol 25 MG 1/2 tablet Orally Once a day for 90 days 07/17/2024 Not-Taking Pravastatin Sodium 10 MG TAKE 1 TABLET BY MOUTH DAILY for 90 Active Allopurinol 100 MG take 1 tablet by mouth once daily for 30 Active Multivitamin Orally Active Caltrate 600+D 600-400 MG-UNIT 1 tablet with food Orally Once a day Active metFORMIN HCl 500 MG 1 tablet with a meal Orally Once a day for 30 days Active Butrans 20 MCG/HR 1 patch to skin Transdermal weekly per Dr Anne 1 patch only until patient can get ahold of Dr. Anne's office 08/28/2024 Active Blood Glucose Monitor System w/Device as directed daily fasting Active Nyamyc 398039 UNIT/GM APPLY TO THE ABDOMINAL FOLDS TWICE A DAY UNTIL RASH IIS CLEAR FOR 7 DAYS for 7 days Active NexIUM 20 MG 1 capsule Orally Once a day for 90 days 05/25/2024 Active Nebulizer/Tubing/Mouth piece - Use up to four times daily with nebulizer. Dx: Covid 19 12/07/2024 Active Mupirocin 2 % 1 application Externally Twice a day for 5 days 03/06/2024 Active Probiotic Orally Active ProAir HFA 108 (90 Base) MCG/ACT 2 puffs as needed Inhalation every 4 hrs Active Polymyxin B-Trimethoprim 19595-2.1 UNIT/ML 1 drop into affected eye Ophthalmic Four times a day for 5 days 01/08/2025 Active Immunizations Vaccine Route Administration Date Status Comme nts Flu, Fluad (0806-6487) (63048) 65 yrs+, single-dose syringe IM Intramuscular 09/29/2023 Administered Social History AUDIT-C (Standard) Question Answer Notes Did you have a drink containing alcohol in the p ast year? No Points 0 Interpretation Negative Problems Problem Type SNOMED Code ICD Code Onset Dates Problem Status W/U Status Risk Notes Problem 520537340 Peripheral vascular disease, unspecified (I73.9) Active confirmed Problem 48744076 Type 2 diabetes mellitus with diabetic chronic kidney disease (E11.22) Active confirmed Problem 50543489619827824 Cutaneous abscess of right foot (L02.611) Active confirmed Problem 216852634 Non-pressure chronic ulcer of skin of other sites with unspecified severity (L98.499) Active confirmed Problem 958896407 Chronic kidney disease, stage 4 (severe) (N18.4) Active confirmed Problem Gastroesophageal reflux disease (945853594) GERD (gastroesophag eal reflux disease) (K21.9) Active confirmed Problem Arthritis (6840372) Arthritis (M19.90) Active confirmed Problem Chronic kidney disease (209453096) CKD (chronic kidney disease) (N18.9) Active confirmed Problem Gout (58341035) Gout (M10.9) Active confirmed Problem Iron deficiency anemia (24819463) Iron deficiency anemia (D50.9) Active confirmed Problem Alzheimer disease (09224841) Alzheimer disease (G30.9) Active confirmed Problem Paresthesia of arm (92733276) Paresthesia of arm (R20.2) Active confirmed Vital Signs Heart Rate 60 /min 04/16/2025 Temperature 97.2 degrees Fahrenheit 11/30/2024 Oximetry 97 % 11/30/2024 Blood pressure diastolic 70 mm Hg 04/16/2025 Height 60 in 04/16/2025 Blood pressure systolic 130 mm Hg 04/16/2025 Encounters Encounter Location Date Provider Diagnosis [facility] [address] [place] [address] 06/15/2025 Atiya Srivastava [facility] [address] [place] [address] 06/18/2025 Atiya Srivastava [facility] [address] [place] [address] 05/02/2025 Atiya Srivastava [facility] [address] [place] [address] 05/03/2025 Atiya Srivastava Urinary tract infection, site not specified N39.0 [facility] [address] [place] [address] 05/04/2025 Atiya Srivastava [facility] [address] [place] [address] 05/15/2025 David Ayala [facility] [address] [place] [address] 05/24/2025 Atiya Srivastava [facility] [address] [place] [address] 05/28/2025 Atiya Srivastava UTI (urinary tract infection) N39.0 [facility] [address] [place] [address] 04/11/2025 Atiya Srivastava [facility] [address] [place] [address] 04/17/2025 Atiya Srivastava [facility] [address] [place] [address] 04/20/2025 Atiya Srivastava [facility] [address] [place] [address] 04/23/2025 David Ayala Compression fracture of C1 vertebra S12.090A [facility] [address] [place] [address] 04/27/2025 Atiya Srivastava [facility] [address] [place] [address] 05/01/2025 Atiya Srivastava [facility] [address] [place] [address] 03/05/2025 Atiya Srivastava [facility] [address] [place] [address] 03/13/2025 Atiya Srivastava [facility] [address] [place] [address] 03/29/2025 Atiya Srivastava [facility] [address] [place] [address] 03/30/2025 David Ayala Hyperkalemia E87.5 [facility] [address] [place] [address] 04/06/2025 Atiya Srivastava [facility] [address] [place] [address] 04/10/2025 Atiya Srivastava [facility] [address] [place] [address] 01/16/2025 Atiya Srivastava [facility] [address] [place] [address] 01/31/2025 Atiya Srivastava [facility] [address] [place] [address] 02/19/2025 Atiya Srivastava HTN (hypertension) I 10 [facility] [address] [place] [address] 02/22/2025 Atiya Srivastava [facility] [address] [place] [address] 03/01/2025 Atiya Srivastava Generalized weakness R53.1 and Type 2 diabetes mellitus with diabetic chronic kidney disease E11.22 [facility] [address] [place] [address] 03/05/2025 Atiya Srivastava [facility] [address] [place] [address] 12/06/2024 Atiya Srivastava [facility] [address] [place] [address] 12/07/2024 Atiya Srivastava [facility] [address] [place] [address] 12/08/2024 Atiya Srivastava [facility] [address] [place] [address] 01/02/2025 Atiya Srivastava Generalized weakness R53.1 [facility] [address] [place] [address] 01/02/2025 Atiya Srivastava [facility] [address] [place] [address] 01/08/2025 Atiya Srivastava [facility] [address] [place] [address] 07/17/2024 Atiya Srivastava [facility] [address] [place] [address] 08/18/2024 Atiya Srivastava [facility] [address] [place] [address] 08/28/2024 Atiya Srivastava [facility] [address] [place] [address] 09/26/2024 Atiya Srivastava [facility] [address] [place] [address] 11/30/2024 Atiya Srivastava COVID-19 U07.1 and Arthritis M19.90 [facility] [address] [place] [address] 04/16/2025 Atiya Srivastava Hyperkalemia E87.5 a nd Paresthesia of arm R20.2 Assessments Encounter Date Diagnosis (ICD Code) Assessment Notes Treatment Notes Treatment Clinical Notes Section Notes 01/02/2025 Generalized weakness (ICD-10 - R53.1) 02/19/2025 HTN (hypertension) (ICD-10 - I10) 03/01/2025 Generalized weakness (ICD-10 - R53.1) 03/01/2025 Type 2 diabetes mellitus with diabetic chronic kidney disease (ICD-10 - E11.22) 03/30/2025 Hyperkalemia (ICD-10 - E87.5) 04/23/2025 Compression fracture of C1 vertebra (ICD-10 - S12.090A) 05/03/2025 Urinary tract infection, site not specified (ICD-10 - N39.0) 05/28/2025 UTI (urinary tract infection) (ICD-10 - N39.0) 11/30/2024 COVID-19 (ICD-10 - U07.1) called in rx Paxlovid, renal dosing patient wants to take and zpack push fluids, rest monitor pulse ox, if condition worsens needs to fu 11/30/2024 Arthritis (ICD-10 - M19.90) The beneficiary has a mobility limitation that significantly impairs his/her ability to participate in one or more mobility-related activities of daily living including toileting, feeding dressing, grooming, and bathing in customary locations in the home. The beneficiary's mobility limitation cannot be sufficiently resolved by the use of an appropriately fitted cane or walker. The beneficiary's home provides adequate access between rooms, maneuvering space, and surfaces for use of the manual wheelchair that is provided. Use of a manual wheelchair will significantly improve the beneficiary's ability to participate in ADLs and the beneficiary will use it on a regular basis in the home. The beneficiary has not expressed an unwillingness to use the manual wheelchair that is provided in the home. The beneficiary has sufficient upper extremity function and other physical and mental capabilities to safely self propel the manual wheelchair that is provided in the home during a typical day. The beneficiary has a caregiver who is willing and able to provide assistance with the wheelchair in the home. 04/16/2025 Hyperkalemia (ICD-10 - E87.5) last K check wnl repeat 3m 04/16/2025 Paresthesia of arm (ICD-10 - R20.2) Plan Of Treatment Pending Test Test Name Order Date CMP (COMPLETE METABOLIC PANEL) 3 CMP (COMPLETE METABOLIC PANEL) 4 CMP (COMPLETE METABOLIC PANEL) 4 UA (URINALYSIS, COMPLETE) 03/19/2016 UA (URINALYSIS, COMPLETE) 05/03/2025 UA (URINALYSIS, COMPLETE) 05/28/2025 ALBUMIN, BLOOD 03/19/2016 HEMOGLOBIN A1C (GLYCO) 09/29/2023 HEMOGLOBIN A1C (GLYCO) 02/19/2025 HEMOGLOBIN A1C (GLYCO) 12/31/2023 IRON, TOTAL 02/19/2025 IRON, TOTAL 03/08/2023 IRON, TOTAL 09/29/2023 MAGNESIUM 03/19/2016 MAGNESIUM 02/27/2016 LIPID PANEL (CHOL/TRIG/HDL/LDL) 02/20/20 25 LIPID PANEL (CHOL/TRIG/HDL/LDL) 09/29/20 23 CBC NO DIFF 03/19/2016 CBC WITH DIFF 09/29/2023 CBC WITH DIFF 02/27/2016 CBC WITH DIFF 03/08/2023 BMP (BASIC MET PANEL - W/GFR) 02/27/2016 BMP (BASIC MET PANEL - W/GFR) 03/19/2016 MICROALBUMIN with ALB/CREAT RATIO, URINE (MALB)) 03/19/2016 MICROALBUMIN with ALB/CREAT RATIO, URINE (MALB)) 02/27/2016 PHOSPHORUS 02/27/2016 PHOSPHORUS 03/19/2016 PTH INTACT (PARATHYROID HORMONE) 016 VITAMIN D, 25 LEVEL (TOTAL) 03/19/2016 VITAMIN D, 25 LEVEL (TOTAL) 03/08/2023 VITAMIN D, 25 LEVEL (TOTAL) 02/19/2025 MRI Cervical Spine w/o contrast * 2024 Urine Culture 05/28/2025 Insulin Level 02/19/2025 EAR IRRIGATION - performed 09/29/2023 BMP - Basic Metabolic Panel 03/30/2025 CBC AUTO DIFF 06/25/2025 CULTURE URINE 05/03/2025 PROF 14(COMP METB) 06/25/2025 UA RANDOM W or MICROSCOPIC 03/08/2023 THYROID PANEL (T4/TSH/FREE T3) THYROID PANEL (T4/TSH/FREE T3) 3 Troponin I High Sensitivity 06/25/2025 XR cervical spine 2-3V 04/16/2025 CMP (COMP MET SALMON) w/eGFR CKD-EPI 2024 CBC WITH DIFF 02/19/2025 Future Test Test Name Order Date BMP (BASIC MET PANEL - W/GFR) 03/19/2016 Insurance Providers Payer Name Payer Address Payer Phone Subscriber Number Group Number Insured Name Patient Relationship to Insured Coverage Start Date Coverage End Date [employer] MED[employer]ARE [address] [place], [place] [id number] [facility] Self - patient is the insured Medical (General) History Medical History History ICD Code reoccuring UTI Arthritis of spine M46.90 Chronic kidney disease, stage 4 (severe) N18.4 COVID-19 U07.1 Dysphagia R13.10 Complex regional pain syndrome G90.50 Depression F32.A Anxiety F41.9 Diabetes mellitus E11.9 Fibrocystic breast disease N60.19 GERD (gastroesophageal reflux disease) K 21.9 Hemorrhoids K64.9 Hypercholesterolemia E78.00 Hypertension I10 Herpes zoster B02.9 Insomnia G47.00 Mitral regurgitation I34.0 Renal insufficiency N28.9 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
--- OUTSIDE RECORDS SUMMARY | 2025-06-25 16:58 | XMS_ITS | Encounter Summary ---
Author Organization [facility] Address [address], [address] [place] [address] Care Team Providers Care Quick Mixer Operator Name Role Phone Kalin Santos DO Primary Care Provider Unavaila ble Reason for Visit * Reason Comments Medication Refill Encounter Details Date Type Department Care Team (Late st Contact Info) Description 11/23/2016 Refill [facility] [address] [place] [address] [address] [place] [address] Antoni Anne MD [address] [place] [address] Medication Refill Social History Tobacco Use Types [...] documented as of this encounter Care Teams Quick Mixer Operator Relationship Specialty Start Date End Date Kalin Santos DO [address] [place] [address] PCP - General 06/22/16 documented as of this encounter
--- OUTSIDE RECORDS SUMMARY | 2025-06-25 16:58 | XMS_ITS | Clinical Summary ---
Author Organization [facility] Address [address], [address] [place] [address] Care Team Providers Care Oem Sales Manager Name Role Phone Kalin Santos DO Primary [...] Last Indicated MRSA Comment:Gladys-06/23/16 06/24/2016 06/24/2016 Insurance [address] [place] [address] A[employer]NA MEDICARE AETNA MEDICARE [facility] Advance Directives Documents on File Type Date Recorded Patient Die Cutting Machine Operator Expl anation ACP-Power of Neck Skewer 02/03/2016 10:12 AM * Full Code (Latest [...] 2:46 PM 02/04/2016 6:35 PM Care Teams Oem Sales Manager Relationship Specialty Start Date End Date Kalin Santos DO [address] [place] [address] PCP - General 06/22/16
--- OUTSIDE RECORDS SUMMARY | 2025-06-25 16:58 | XMS_ITS | Encounter Summary ---
Author Organization [facility] Address [address], [address] [place] [address] Care Team Providers Care World Language Teacher Name Role Phone Kalin Santos DO Primary Care Provider Unavaila ble Encounter Details Date Type Department Care Team (Late st Contact Info) Description 06/19/2016 PAT Telephone [facility] Pre-Admit Testing [address] [place] [id number] Osvaldo Pagan RN Social History Tobacco Use Types Packs/Day [...] documented as of this encounter Care Teams World Language Teacher Relationship Specialty Start Date End Date Kalin Santos DO [address] [place] [address] PCP - General 06/22/16 documented as of this encounter
--- OUTSIDE RECORDS SUMMARY | 2025-06-25 16:59 | XMS_ITS | Encounter Summary ---
Author Organization [facility] Sys tem Address [id number] [address] [place] [address] Care Team Providers Care Histology Teacher Name Role Phone Provider, Colt THOMAS Primary Care Provider Un available Encounter Details Date Type Department Care Team (Late st Contact Info) Description 03/20/2024 Orders Only [facility] [address] [place] [address] Ref Prov, [place] [address] Social History Tobacco Use Types Packs/Day Years Used Date Smoking Tobacco: Never Assessed Childcare Answer Date Recorded Childcare Unknown 04/19/2019 Employment Answer Date Recorded Employment Unknown 04/19/2019 Purpose - Life Answer Date Recorded Purpose and direction in life Unknown Comments Unknown Sex and Gender Information Value Date Recorded Sex Assigned at Not on file Legal Sex Female 11:29 AM EDT Gender Identity Not on file Sexual Orientation Not on file documented as of this encounter Plan of Treatment Not on file documented as of this encounter Procedures Procedure Name Priority Date/Time Associated Diagnosis Comments VASC ARTERIAL DOPPLER LOWER LIMITED SINGLE (SIDRA) Routine 03/20/2024 3:49 PM EDT documented in this encounter Results * Vas art doppler lwr limited single (03/20/2024 3:49 PM EDT) Anatomical Region Laterality Modality Vascular N/A Ultrasound us Not In System Ref Prov CV VASCULAR ORDERABLES Fi nal Result documented in this encounter Visit Diagnoses Not on filedocumented in this encounter Care Teams Histology Teacher Relationship Specialty Start Date End Date ProviderColt MD PCP - General 01/05/13 documented as of this encounter
--- OUTSIDE RECORDS SUMMARY | 2025-06-25 16:59 | XMS_ITS | Encounter Summary ---
Author Organization [facility] tem Address [id number] [address] [place] [address] Care Team Providers Care City Assessor Name Role Phone Provider, Conversion Primary Care Provider Un available Encounter Details Date Type Department Care Team (Late st Contact Info) Description 03/05/2025 Lab Requisition [facility] - Lab [address] [place] [phone] Atiya Srivastava, LODGE SALES ASSOCIATE-HEEL SEAT POUNDER [address] [place] [phone] Essential (primary) hypertension Social History Tobacco Use Types Packs/Day Years [...] Procedure Name Priority Date/Time Associated Diagnosis Comments THYROID PROFILE INCLUDES TSH FT4 Routine 03/05/2025 10:30 AM EDT Essential (primary) hypertension CBC WITH AUTO DIFFERENTIAL Routine 03/05/2025 10:30 AM EDT Essential (primary) hypertension IRON AND TIBC Routine 03/05/2025 10:30 AM EDT Essential (primary) hypertension VITAMIN D 25 HYDROXY Routine 03/05/2025 10:30 AM EDT Essential (primary) hypertension INSULIN Routine 03/05/2025 10:30 AM EDT Essential (primary) hypertension HEMOGLOBIN A1C Routine 03/05/2025 10:30 AM EDT Essential (primary) hypertension LIPID PROFILE Routine 03/05/2025 10:30 AM EDT Essential (primary) hypertension COMPREHENSIVE METABOLIC PANEL Routine 03/05/2025 10:30 AM EDT Essential (primary) hypertension documented in this encounter Results * (ABNORMAL) Comprehensive metabolic panel (03/05/2025 10:30 AM EDT) SODIUM 135 134 - 146 mmol/L 03/05/2025 12:29 PM EDT [facility] POTASSIUM 6.3(HH) 3.5 - 5.0 mmol/L 03/05/2025 12:29 PM EDT [facility] CHLORIDE 103 98 - 109 mmol/L 03/05/2025 12:29 PM EDT [facility] CARBON DIOXIDE 24 22 - 32 mmol/L 03/05/2025 12:29 PM EDT [facility] ANION GAP 8 5 - 15 mmol/L 03/05/2025 12:29 PM EDT [facility] BLOOD UREA NITROGEN 30(H) 5 - 27 mg/dL 03/05/2025 12:29 PM EDT [facility] CREATININE 2.14(H) 0.40 - 1.00 mg/dL 03/05/2025 12:29 PM EDT [facility] Comment:METHOD TRACEABLE TO IDMS STANDARD GLUCOSE 102(H) 65 - 99 mg/dL 03/05/2025 12:29 PM EDT [facility] CALCIUM 9.4 8.5 - 10.5 mg/dL 03/05/2025 12:29 PM EDT [facility] TOTAL PROTEIN 7.0 6.0 - 8.0 g/dL 03/05/2025 12:29 PM EDT [facility] ALBUMIN 4.1 3.2 - 5.3 g/dL 03/05/2025 12:29 PM EDT [facility] ALKALINE PHOSPHATASE 76 39 - 130 U/L 03/05/2025 12:29 PM EDT [facility] AST 21 <=41 U/L 03/05/2025 12:29 PM EDT [facility] ALT 18 <=31 U/L 03/05/2025 12:29 PM EDT [facility] BILIRUBIN,TOTAL 0.6 0.3 - 1.2 mg/dL 03/05/2025 12:29 PM EDT [facility] EGFR Non-Race Dependent 22(L) >=60 ml/min/1.7 3sq.m 03/05/2025 12:29 PM EDT [facility] Comment: Reported eGFR is based on the CKD-EPI 2020 equation that does not use a race coefficient. Blood Venous blood / Unknown 03/05/2025 10:30 AM EDT 03/05/2025 11:42 AM EDT us Atiya Srivastava LODGE SALES ASSOCIATE-HEEL SEAT POUNDER LAB BLOOD ORDERABLES Fi nal Result [facility] [address] [place] [address], * Thyroid profile includes TSH FT4 (03/05/2025 10:30 AM EDT) FREE T4 0.93 0.61 - 1.60 ng/dL 03/05/2025 12:24 PM EDT [facility] TSH 2.21 0.49 - 4.67 uIU/mL 03/05/2025 12:24 PM EDT [facility] Blood Venous blood / Unknown 03/05/2025 10:30 AM EDT 03/05/2025 11:42 AM EDT Atiya Srivastava LODGE SALES ASSOCIATE-[facility] LAB BLOOD ORDERABLES Fi nal Result [facility] [address] [place] [address], [place] * Insulin (03/05/2025 10:30 AM EDT) INSULIN 19.48 1.00 - 23.00 uIU/mL 03/05/2025 8:10 PM ED[address] [facility] Blood Venous blood / Unknown 03/05/2025 10:30 AM EDT 03/05/2025 11:42 AM EDT [facility]ORAT[facility] - 03/05/2025 8:10 PM EDT Ref. range is for FASTING NON-DIABETIC POPULATION. Atiya Srivastava [facility] LAB BLOOD ORDERABLES nal Result [facility] [address] [place] [address], [place] [phone] * Vitamin D 25 hydroxy (03/05/2025 10:30 AM EDT) VITAMIN D 25 HYD TOT 35.4 30.0 - 100.0 ng/mL 03/05/2025 8:09 PM EDT [facility] Blood Venous blood / Unknown 03/05/2025 10:30 AM EDT 03/05/2025 11:42 AM EDT [facility] LABORATORY - 03/05/2025 8:09 PM EDT Vitamin D status 25 [place] Vitamin D Deficiency <20 ng/mL Insufficiency 20-29 ng/mL Sufficiency 30-100 ng/mL Toxicity >100 ng/mL NOTE: A pediatric reference range has not been established by the supplier specialist of this kit. The [place] [employer] recommends a Vitamin D level of = or >20ng/mL in infants and children. Atiya Srivastava [facility] LAB BLOOD ORDERABLES Fi nal Result Performing Organization Address City/[facility]/ZIP Co de Phone Number [facility] [address] [place] [address], * (ABNORMAL) Iron and TIBC (03/05/2025 10:30 AM EDT) IRON 48(L) 50 - 170 ug/dL 03/05/2025 7:50 PM EDT [facility] TRANSFERRIN 368(H) 168 - 336 mg/dL 03/05/2025 7:50 PM EDT [facility] IRON BINDING 515(H) 250 - 425 ug/dL 03/05/2025 7:50 PM EDT [facility] IRON SATURATION 9(L) 15 - 50 % SATURATION 03/05/2025 7:50 PM EDT [facility] Blood Venous blood / Unknown 03/05/2025 10:30 AM EDT 03/05/2025 11:42 AM EDT Atiya Cottrellmer [facility] LAB BLOOD ORDERABLES nal Result Performing Organization Address City/[facility]/ZIP Co de Phone Number [facility] [address] [place] [address], * (ABNORMAL) Hemoglobin A1c (03/05/2025 10:30 AM EDT) HEMOGLOBIN A1C 5.9(H) 4.4 - 5.6 % 03/05/2025 7:33 PM ED[address] [facility] Comment: ADA Guidelines Result HgbA1c Normal : less than 5.7 % Prediabetes : 5.7 % to 6.4 % Diabetes : > 6.4 % Use with caution in patients with abnormal hemoglobin variants as the half-life of red blood cells and in vivo glycation rates are affected. EST. AVERAGE GLUCOSE 123 mg/dL 03/05/2025 7:33 PM EDT [facility] Blood Venous blood / Unknown 03/05/2025 10:30 AM EDT 03/05/2025 11:42 AM EDT us Atiya Srivastava LODGE SALES ASSOCIATE-HEEL SEAT POUNDER LAB BLOOD ORDERABLES Fi nal Result [facility] [address] [place] [address], * (ABNORMAL) CBC auto differential (03/05/2025 10:30 AM EDT) WBC 6.6 4 - 11 x10E9/L 03/05/2025 12:02 PM EDT [facility] RBC Count 3.98 3.8 - 5.2 X10E12/L 03/05/2025 12:02 PM EDT [facility] Hemoglobin 11.4(L) 11.7 - 15.5 g/dL 03/05/2025 12:02 PM EDT [facility] Hematocrit 34.8(L) 35 - 47 % 03/05/2025 12:02 PM EDT [facility] MCV 88 80 - 100 fL 03/05/2025 12:02 PM EDT [facility] MCH 28.6 27 - 34 pg 03/05/2025 12:02 PM EDT [facility] MCHC 32.7 32 - 36 g/dL 03/05/2025 12:02 PM EDT [facility] RDW 15.8(H) 11.5 - 15 % 03/05/2025 12:02 PM EDT [facility] Platelet Count 236 150 - 450 X10E9/L 03/05/2025 12:02 PM EDT [facility] MPV 9.0 7 - 12 fL 03/05/2025 12:02 PM EDT [facility] Neutrophils % 57.6 % 03/05/2025 12:02 PM EDT [facility] Lymphocytes % 30.3 % 03/05/2025 12:02 PM EDT [facility] Monocytes % 8.9 % 03/05/2025 12:02 PM EDT [facility] Eosinophils % 2.5 % 03/05/2025 12:02 PM EDT [facility] Basophils % 0.7 % 03/05/2025 12:02 PM EDT [facility] Neutrophils Absolute (A) 3.8 10*3/uL 03/05/2025 12:02 PM EDT [facility] Lymphocytes Absolute 2.0 10*3/uL 03/05/2025 12:02 PM EDT [facility] Monocytes Absolute 0.6 10*3/uL 03/05/2025 12:02 PM EDT [facility] Eosinophils Absolute 0.2 10*3/uL 03/05/2025 12:02 PM EDT [facility] Basophils Absolute 0.0 10*3/uL 03/05/2025 12:02 PM EDT [facility] Differential Type AUTOMATED DIFFERENTIAL 03/05/2025 12:02 PM EDT [facility] Blood Venous blood / Unknown 03/05/2025 10:30 AM EDT 03/05/2025 11:42 AM EDT us Atiya Srivastava LODGE SALES ASSOCIATE-HEEL SEAT POUNDER LAB BLOOD ORDERABLES Fi nal Result [facility] [address] [place] [address], [place] * (ABNORMAL) Lipid profile (03/05/2025 10:30 AM EDT) CHOLESTEROL 186 150 - 200 mg/dL 03/05/2025 7:50 PM EDT [facility] TRIGLYCERIDE 217(H) 27 - 150 mg/dL 03/05/2025 7:50 PM EDT [facility] HDL CHOLESTEROL 43 >39 mg/dL 7:50 PM EDT [facility] Comment: HDL <40 mg/dL - High Risk HDL > or = 40mg/dL- Desirable HDL >60 mg/dL - Negative Risk LDL (CALC) 100 <130 mg/dL 03/05/2025 7:50 PM EDT [facility] Comment: LDL <100 mg/dL - Desirable LDL >160 mg/dL - High Risk CHOLESTEROL:HDL 4.3 1.0 - 5.0 7:50 [address] [facility] VERY LOW LIPOPROTEIN 43(H) 0 - 30 mg/dL 03/05/2025 7:50 PM [address] [facility] Blood Venous blood / Unknown 03/05/2025 10:30 AM EDT 03/05/2025 11:42 AM EDT us Atiya Srivastava LODGE SALES ASSOCIATE-HEEL SEAT POUNDER LAB BLOOD ORDERABLES Fi nal Result [facility] [address] [place] [address], [place] [phone] documented in this encounter Visit Diagnoses Diagnosis Essential (primary) hypertension Unspecified essential hypertension documented in this encounter Care Teams City Assessor Relationship Specialty Start Date End Date Provider, MD Colt PCP - General 01/05/13 documented as of this encounter
--- OUTSIDE RECORDS SUMMARY | 2025-06-25 16:59 | XMS_ITS | Encounter Summary ---
Author Organization [facility] tem Address [id number] [address] [place] [address] Care Team Providers Care Motorboat Mechanic Inboard/Outboard Name Role Phone Provider, Conversion MD Primary Care Provider Un available Encounter Details Date Type Department Care Team (Latest Contact Info) Description 06/14/2025 Lab Requisition [facility] - Lab [address] [place] [address] Atiya Srivastava, ROVING WEIGHT GAUGER-FAMILY SUPPORT WORKER [address] [place] [address] Unspecified symptoms and signs involving the genitourinary system; Unspecified abnormal findings in urine; Type 2 diabetes mellitus with diabetic chronic kidney disease ([facility]) Social History Tobacco Use Types Packs/Day Years [...] Procedure Name Priority Date/Time Associated Diagnosis Comments URINALYSIS Routine 06/14/2025 3:50 PM EDT Unspecified symptoms and signs involving the genitourinary system Unspecified abnormal findings in urine Type 2 diabetes mellitus with diabetic chronic kidney disease ([facility]) URINE CULTURE Routine 06/14/2025 3:50 PM EDT Unspecified symptoms and signs involving the genitourinary system Unspecified abnormal findings in urine Type 2 diabetes mellitus with diabetic chronic kidney disease ([facility]) documented in this encounter Results * (ABNORMAL) Urine Culture (06/14/2025 3:50 PM EDT) CULTURE RESULTS >100,000 CFU/mL Escherichia coli(A) 06/17/2025 8:48 AM EDT [facility] Urine Urine / Unknown 06/14/2025 3 :50 PM EDT 06/14/2025 4:14 PM EDT Narrative [facility] - 06/17/2025 8:48 AM EDT Along with 10,000 to 50,000 CFU/mL Normal Urogenital Dania. Urine received without preservative - delays in transport may affect results. Interpret with caution and clinical correlation is recommended. Organism Antibiotic Method Susceptibility Escherichia coli Ampicillin <=2.0: Susceptible Escherichia coli AMP/SULBACTAM <=2.0: Susceptible Escherichia coli PIPERACIL/TAZOBACTAM <=4.0: Susceptible Escherichia coli Cefazolin (non-urinary) 2.0: Susceptible Escherichia coli Cefazolin (urinary) 2.0: Susceptible Escherichia coli Ceftriaxone <=0.25: Susceptible Escherichia coli Gentamicin <=1.0: Susceptible Escherichia coli Ciprofloxacin <=0.06: Susceptible Escherichia coli Levofloxacin <=0.12: Susceptible Escherichia coli Nitrofurantoin <=16.0: Susceptible Escherichia coli Trimethoprim + Sulfamethoxazole <=1.0: Susceptible us Atiya Srivastava ROVING WEIGHT GAUGER-FAMILY SUPPORT WORKER MICROBIOLOGY - GENERAL ORDERABLES Final Result [facility] [address] [place] [address], * (ABNORMAL) Urinalysis (06/14/2025 3:50 PM EDT) COLOR Yellow Yellow 06/14/2025 4:34 PM EDT [facility] TURBIDITY Cloudy(A) Clear 06/14/2025 4:34 PM EDT [facility] SPECIFIC GRAVITY 1.025 1.003 - 1.035 06/14/2025 4:34 PM EDT [facility] NITRITE Positive(A) Negative 06/14/2025 4:34 PM EDT [facility] PH,URINE 6.0 5.0 - 8.5 06/14/2025 4:34 PM EDT [facility] LEUKOCYTE ESTERASE Moderate(A) Negative 06/14/2025 4:34 PM EDT [facility] PROTEIN Trace(A) Negative 06/14/2025 4:34 PM EDT [facility] KETONES (URINE) Negative Negative 4:34 PM EDT [facility] UROBILINOGEN 0.2 eu/dL 0.2 eu/dL, 1.0 eu/dL 06/14/2025 4:34 PM EDT [facility] BILIRUBIN (URINE) Negative Negative 06/14/2025 4:34 PM EDT [facility] BLOOD/HGB Trace(A) Negative 06/14/2025 4:34 PM EDT [facility] R.B.CELLS 3 0 - 5 06/14/2025 4:34 PM EDT [facility] SQUAMOUS EPITHELIUM 2 0 - 5 06/14/2025 4:34 PM EDT [facility] W.B.CELLS >100(H) 0 - 5 06/14/2025 4:34 PM EDT [facility] GLUCOSE (URINE) Negative Negative, 250 mg/dL 06/14/2025 4:34 PM EDT [facility] Urine Urine / Unknown 06/14/2025 3 :50 PM EDT 06/14/2025 4:14 PM EDT Narrative [facility] - 06/14/2025 4:34 PM EDT Urine received without preservative. Delays in transport may affect results. Interpret with caution. A clinical correlation is recommended. us Atiya Srivastava ROVING WEIGHT GAUGER-FAMILY SUPPORT WORKER URINE ORDERABLES Final Result [facility] [address] [place] [address], documented in this encounter Visit Diagnoses Diagnosis Unspecified symptoms and signs involving the genitourinary system Unspecified abnormal findings in urine Type 2 diabetes mellitus with diabetic chronic kidney disease ([facility]) documented in this encounter Care Teams Motorboat Mechanic Inboard/Outboard Relationship Specialty Start Date End Date Provider, MD Colt PCP - General 01/05/13 documented as of this encounter
--- OUTSIDE RECORDS SUMMARY | 2025-06-25 16:59 | XMS_ITS | Encounter Summary ---
Author Organization [facility] [employer] [facility] tem Address [id number] [address] [place] [address] Care Team Providers Care Band Master Name Role Phone Provider, Conversion MD Primary Care Provider Un available Encounter Details Date Type Department Care Team (Latest Contact Info) Description 05/01/2025 Lab Requisition [facility] - Lab [address] [place] [phone] Atiya Srivastava, NEWBORN PHOTOGRAPHER-SPUDDER [address] [place] [phone] Unspecified symptoms and signs involving the genitourinary system; Unspecified abnormal findings in urine Social History Tobacco Use Types Packs/Day Years [...] Priority Date/Time Associated Diagnosis Comments URINALYSIS Routine 05/01/2025 4:00 PM EDT Unspecified symptoms and signs involving the genitourinary system Unspecified abnormal findings in urine URINE CULTURE Routine 05/01/2025 4:00 PM EDT Unspecified symptoms and signs involving the genitourinary system Unspecified abnormal findings in urine documented in this encounter Results * (ABNORMAL) Urine culture (05/01/2025 4:00 PM EDT) CULTURE RESULTS >100,000 CFU/mL Escherichia coli(A) 05/03/2025 10:33 AM EDT [facility] Urine Urine specimen collection, clean catch / Unknown 05/01/2025 4:00 PM EDT 05/01/2025 5:23 PM EDT Narrative [facility] - 05/03/2025 10:33 AM EDT Urine received without preservative - delays in [...] Escherichia coli Trimethoprim + Sulfamethoxazole <=1.0: Susceptible Atiya Srivastava NEWBORN PHOTOGRAPHER-SPUDDER MICROBIOLOGY - GENERAL ORDERABLES Final Result [facility] [address] [place] [address], * (ABNORMAL) Urinalysis (05/01/2025 4:00 PM EDT) COLOR Yellow Yellow, Colorless 05/01/2025 6:15 PM EDT [facility] TURBIDITY Clear Clear 05/01/2025 6:15 PM EDT [facility] SPECIFIC GRAVITY <=1.005 1.003 - 1.035 05/01 6:15 PM EDT [facility] NITRITE Negative Negative 05/01/2025 6:15 PM EDT [facility] PH,URINE 6.0 5.0 - 8.5 05/01/2025 6:15 PM EDT [facility] LEUKOCYTE ESTERASE Trace(A) Negative 05/01/2025 6:15 PM EDT [facility] PROTEIN Negative Negative 05/01/2025 6:15 PM EDT [facility] KETONES (URINE) Negative Negative 6:15 PM EDT [facility] UROBILINOGEN 0.2 eu/dL 0.2 eu/dL, 1.0 eu/dL 05/01/2025 6:15 PM EDT [facility] BILIRUBIN (URINE) Negative Negative 05/01/2025 6:15 PM EDT [facility] BLOOD/HGB Negative Negative 05/01/2025 6:15 PM EDT [facility] SQUAMOUS EPITHELIUM 1 0 - 5 05/01/2025 6:15 PM EDT [facility] W.B.CELLS 20(H) 0 - 5 05/01/2025 6:15 PM EDT [facility] GLUCOSE (URINE) Negative Negative, 250 mg/dL 05/01/2025 6:15 PM EDT [facility] Urine Urine specimen collection, clean catch / Unknown 05/01/2025 4:00 PM EDT 05/01/2025 5:23 PM EDT Narrative [facility] - 05/01/2025 6:15 PM EDT Urine received without preservative. Delays in transport may affect results. Interpret with caution. A clinical correlation is recommended. us Atiya Srivastava NEWBORN PHOTOGRAPHER-SPUDDER URINE ORDERABLES Final Result [facility] [address] [facility] [place] [address], documented in this encounter Visit Diagnoses Diagnosis Unspecified symptoms and signs involving the genitourinary system Unspecified abnormal findings in urine documented in this encounter Care Teams Band Master Relationship Specialty Start Date End Date Provider, Colt, PCP - General 01/05/13 documented as of this encounter
--- OUTSIDE RECORDS SUMMARY | 2025-06-25 16:59 | XMS_ITS | Clinical Summary ---
Author Organization [facility] [employer] [facility] Address [id number] [address] [place] [address] Care Team Providers Care Biofuels Manager Name Role Phone Provider, Conversion Primary Care Provider Un available Encounters Date Type Department Care Team Description 06/14/2025 Lab Requisition [facility] - Lab [address] [place] [phone] Atiya Srivastava, NAILER MACHINE-FILTRATION OPERATOR Unspecified symptoms and signs involving the genitourinary system; Unspecified abnormal findings in urine; Type 2 diabetes mellitus with diabetic chronic kidney disease ([facility]) 05/23/2025 Lab Requisition [facility] - Lab [address] [place] [phone] Atiya Srivastava, NAILER MACHINE-FILTRATION OPERATOR Type 2 diabetes mellitus with diabetic chronic kidney disease ([facility] Urinary tract infection, site not specified 05/01/2025 Lab Requisition [facility] - Lab [address] [place] [phone] Atiya Srivastava, NAILER MACHINE-FILTRATION OPERATOR Unspecified symptoms and signs involving the genitourinary system; Unspecified abnormal findings in urine 04/11/2025 Lab Requisition [facility] - Lab [address] [place] [phone] Greg Adkins MD Hyperkalemia; Type 2 diabetes mellitus with diabetic chronic kidney disease ([facility]) from Last 3 Months Social History Tobacco Use Types Packs/Day Years [...] Sign Reading Time Taken Comments Blood Pressure 113/72 06/15/2014 1:36 PM EDT Pulse 85 06/15/2014 1:36 PM EDT Temperature - - Respiratory Rate - - Oxygen Saturation - - Inhaled Oxygen Concentration - - Weight 78 kg (172 lb) 06/15/2014 1:36 PM EDT Height 152.4 cm (5') 06/15/2014 1:36 PM EDT Body Mass Index 33.59 06/15/2014 1:36 PM EDT Plan of Treatment Health Maintenance Due Date Last Done Comments Depression Screening 1952 Tobacco Screening 1952 DTaP,Tdap and Td Vaccines (1 - Tdap) 1958 Zoster (Shingles) Vaccine (1 of 2) 1989 Fall Risk Screening 2004 Influenza Vaccine 07/09/2025 Medical Devices Not on file Procedures Procedure Name Priority Date/Time Associated Diagnosis Comments URINALYSIS Routine 06/14/2025 3:50 PM EDT Unspecified symptoms and signs involving the genitourinary system Unspecified abnormal findings in urine Type 2 diabetes mellitus with diabetic chronic kidney disease ([facility]) URINE CULTURE Routine 06/14/2025 3:50 PM EDT Unspecified symptoms and signs involving the genitourinary system Unspecified abnormal findings in urine Type 2 diabetes mellitus with diabetic chronic kidney disease ([facility]) URINALYSIS Routine 05/23/2025 12:51 PM EDT Type 2 diabetes mellitus with diabetic chronic kidney disease ([facility]) Urinary tract infection, site not specified URINE CULTURE Routine 05/23/2025 12:51 PM EDT Type 2 diabetes mellitus with diabetic chronic kidney disease ([facility]) Urinary tract infection, site not specified URINALYSIS Routine 05/01/2025 4:00 PM EDT Unspecified symptoms and signs involving the genitourinary system Unspecified abnormal findings in urine URINE CULTURE Routine 05/01/2025 4:00 PM EDT Unspecified symptoms and signs involving the genitourinary system Unspecified abnormal findings in urine BASIC METABOLIC PANEL Routine 04/11/2025 3:19 PM EDT Hyperkalemia Type 2 diabetes mellitus with diabetic chronic kidney disease ([facility]) from Last 3 Months Results * (ABNORMAL) Urinalysis (06/14/2025 3:50 PM EDT) Only the most recent of3 resultswithin the time period is included. COLOR Yellow Yellow 06/14/2025 4:34 PM EDT [facility] TURBIDITY Cloudy(A) Clear 06/14/2025 4:34 PM EDT [facility] SPECIFIC GRAVITY 1.025 1.003 - 1.035 06/14/2025 4:34 PM EDT [facility] NITRITE Positive(A) Negative 06/14/2025 4:34 PM EDT [facility] PH,URINE 6.0 5.0 - 8.5 06/14/2025 4:34 PM EDT [facility] LEUKOCYTE ESTERASE Moderate(A) Negative 06/14/2025 4:34 PM EDT [facility] PROTEIN Trace(A) Negative 06/14/2025 4:34 PM EDT [facility] KETONES (URINE) Negative Negative 4:34 PM EDT [facility] UROBILINOGEN 0.2 eu/dL 0.2 eu/dL, 1.0 eu/dL 06/14/2025 4:34 PM EDT [facility] BILIRUBIN (URINE) Negative Negative 06/14/2025 4:34 PM EDT [facility] BLOOD/HGB Trace(A) Negative 06/14/2025 4:34 PM EDT [facility] R.B.CELLS 3 0 - 5 06/14/2025 4:34 PM EDT [facility] SQUAMOUS EPITHELIUM 2 0 - 5 06/14/2025 4:34 PM EDT [facility] W.B.CELLS >100(H) 0 - 5 06/14/2025 4:34 PM EDT [facility] GLUCOSE (URINE) Negative Negative, 250 mg/dL 06/14/2025 4:34 PM EDT [facility] Urine Urine / Unknown 06/14/2025 3 :50 PM EDT 06/14/2025 4:14 PM EDT [facility] - 06/14/2025 4:34 PM EDT Urine received without preservative. Delays in transport may affect results. Interpret with caution. A clinical correlation is recommended. us Atiya Srivastava NAILER MACHINE-FILTRATION OPERATOR URINE ORDERABLES Final Result [facility] [address] [place] [address], * (ABNORMAL) Urine Culture (06/14/2025 3:50 PM EDT) Only the most recent of3 resultswithin the time period is included. CULTURE RESULTS >100,000 CFU/mL Escherichia coli(A) 06/17/2025 8:48 AM EDT [facility] Urine Urine / Unknown 06/14/2025 3 :50 PM EDT 06/14/2025 4:14 PM EDT [facility] - 06/17/2025 8:48 AM EDT Along [...] + Sulfamethoxazole <=1.0: Susceptible us Atiya Srivastava NAILER MACHINE-FILTRATION OPERATOR MICROBIOLOGY - GENERAL ORDERABLES Final Result [facility] [address] [place] [address], * (ABNORMAL) Basic Metabolic Panel (04/11/2025 3:19 PM EDT) SODIUM 135 134 - 146 mmol/L 04/11/2025 4:02 PM EDT [facility] POTASSIUM 4.9 3.5 - 5.0 mmol/L 04/11/2025 4:02 PM EDT [facility] CHLORIDE 102 98 - 109 mmol/L 04/11/2025 4:02 PM EDT [facility] CARBON DIOXIDE 21(L) 22 - 32 mmol/L 04/11/2025 4:02 PM EDT [facility] ANION GAP 12 5 - 15 mmol/L 04/11/2025 4:02 PM EDT [facility] BLOOD UREA NITROGEN 29(H) 5 - 27 mg/dL 04/11/2025 4:02 PM EDT [facility] CREATININE 2.29(H) 0.40 - 1.00 mg/dL 04/11/2025 4:02 PM EDT [facility] Comment:METHOD TRACEABLE TO IDMS STANDARD GLUCOSE 188(H) 65 - 99 mg/dL 04/11/2025 4:02 PM EDT [facility] CALCIUM 9.4 8.5 - 10.5 mg/dL 04/11/2025 4:02 PM EDT [facility] EGFR Non-Race Dependent 20(L) >=60 ml/min/1.7 3sq.m 04/11/2025 4:02 PM EDT [facility] Comment: eGFR not reported due to non-numeric value for Creatinine. Reported eGFR is based on the CKD-EPI 2020 equation that does not use a race coefficient. Blood Venous blood / Unknown 04/11/2025 3:19 PM EDT 04/11/2025 3:47 PM EDT us Greg Adkins MD LAB BLOOD ORDERABLES Final Resu lt [facility] [address] [place] [address], from Last 3 Months Insurance [employer] MEDICARE Care Teams Biofuels Manager Relationship Specialty Start Date End Date Provider, MD Colt PCP - General 01/05/13
--- OUTSIDE RECORDS SUMMARY | 2025-06-25 16:59 | XMS_ITS | Encounter Summary ---
Author Organization [facility] [employer] [facility] Address [id number] [place] [address] Care Team Providers Care Waste Recycler Name Role Phone Provider, Conversion Primary Care Provider Un available Encounter Details Date Type Department Care Team (Late st Contact Info) Description 04/11/2025 Lab Requisition [facility] - Lab [address] [place] [phone] Greg Adkins MD [address] [place] [address] Hyperkalemia; Type 2 diabetes mellitus with diabetic chronic kidney disease ([facility]) Social History Tobacco Use Types Packs/Day Years [...] Procedure Name Priority Date/Time Associated Diagnosis Comments BASIC METABOLIC PANEL Routine 04/11/2025 3:19 PM EDT Hyperkalemia Type 2 diabetes mellitus with diabetic chronic kidney disease ([facility]) documented in this encounter Results * (ABNORMAL) Basic Metabolic Panel (04/11/2025 3:19 PM EDT) SODIUM 135 134 - 146 mmol/L 04/11/2025 4:02 PM EDT [facility] POTASSIUM 4.9 3.5 - 5.0 mmol/L 04/11/2025 4:02 PM EDT [facility] CHLORIDE 102 98 - 109 mmol/L 04/11/2025 4:02 PM EDT [facility] CARBON DIOXIDE 21(L) 22 - 32 mmol/L 04/11/2025 4:02 PM EDT [facility] ANION GAP 12 5 - 15 mmol/L 04/11/2025 4:02 PM EDT [facility] BLOOD UREA NITROGEN 29(H) 5 - 27 mg/dL 04/11/2025 4:02 PM EDT [facility] CREATININE 2.29(H) 0.40 - 1.00 mg/dL 04/11/2025 4:02 PM EDT [facility] Comment:METHOD TRACEABLE TO IDMS STANDARD GLUCOSE 188(H) 65 - 99 mg/dL 04/11/2025 4:02 PM EDT [facility] CALCIUM 9.4 8.5 - 10.5 mg/dL 04/11/2025 4:02 PM EDT [facility] EGFR Non-Race Dependent 20(L) >=60 ml/min/1.7 3sq.m 04/11/2025 4:02 PM EDT [facility] Comment: eGFR not reported due to non-numeric value for Creatinine. Reported eGFR is based on the CKD-EPI 2020 equation that does not use a race coefficient. Blood Venous blood / Unknown 04/11/2025 3:19 PM EDT 04/11/2025 3:47 PM EDT us Greg Adkins MD LAB BLOOD ORDERABLES Final Resu lt [facility] [address] [facility] [place] [address], documented in this encounter Visit Diagnoses Diagnosis Hyperkalemia Hyperpotassemia Type 2 diabetes mellitus with diabetic chronic kidney disease (CMS-HCC) documented in this encounter Care Teams Waste Recycler Relationship Specialty Start Date End Date Provider, Colt, PCP - General 01/05/13 documented as of this encounter
--- OUTSIDE RECORDS SUMMARY | 2025-06-25 16:59 | XMS_ITS | Encounter Summary ---
Author Organization [facility] [employer] [facility] Address [id number] [place] [address] Care Team Providers Care Active Directory Specialist Name Role Phone Provider, Conversion MD Primary Care Provider Un available Encounter Details Date Type Department Care Team (Late st Contact Info) Description 05/23/2025 Lab Requisition [facility] - Lab [address] [place] [phone] Atiya Srivastava, TILE POWER SHEAR OPERATOR-FULL TIME BABYSITTER [address] [place] [phone] Type 2 diabetes mellitus with diabetic chronic kidney disease ([facility]); Urinary tract infection, site not specified Social History Tobacco Use Types Packs/Day Years [...] Priority Date/Time Associated Diagnosis Comments URINALYSIS Routine 05/23/2025 12:51 PM EDT Type 2 diabetes mellitus with diabetic chronic kidney [facility] Urinary tract infection, site not specified URINE CULTURE Routine 05/23/2025 12:51 PM EDT Type 2 diabetes mellitus with diabetic chronic kidney disease (CMS-HCC) Urinary tract infection, site not specified documented in this encounter Results * (ABNORMAL) Urine culture (05/23/2025 12:51 PM EDT) CULTURE RESULTS >100,000 CFU/mL Escherichia coli(A) 05/25/2025 11:50 AM EDT [facility] Urine Urine / Unknown 05/23/2025 1 2:51 PM EDT 05/23/2025 1:28 PM EDT Narrative Organism Antibiotic Method Susceptibility Escherichia coli Ampicillin <=2.0: Susceptible Escherichia coli AMP/SULBACTAM <=2.0: Susceptible Escherichia coli PIPERACIL/TAZOBACTAM <=4.0: Susceptible Escherichia coli Cefazolin (non-urinary) <=1.0: Susceptible Escherichia coli Cefazolin (urinary) <=1.0: Susceptible Escherichia coli Ceftriaxone <=0.25: Susceptible Escherichia coli Gentamicin <=1.0: Susceptible Escherichia coli Ciprofloxacin <=0.06: Susceptible Escherichia coli Levofloxacin <=0.12: Susceptible Escherichia coli Nitrofurantoin <=16.0: Susceptible Escherichia coli Trimethoprim + Sulfamethoxazole <=1.0: Susceptible Atiya Srivastava TILE POWER SHEAR OPERATOR-FULL TIME BABYSITTER MICROBIOLOGY - GENERAL ORDERABLES Final Result [facility] [address] [place] [address], * (ABNORMAL) Urinalysis (05/23/2025 12:51 PM EDT) COLOR Yellow Yellow, Colorless 05/23/2025 2:07 PM EDT [facility] TURBIDITY Hazy(A) Clear 05/23/2025 2:07 PM EDT [facility] SPECIFIC GRAVITY 1.020 1.003 - 1.035 05/23/2025 2:07 PM EDT [facility] NITRITE Positive(A) Negative 05/23/2025 2:07 PM EDT [facility] PH,URINE 6.0 5.0 - 8.5 05/23/2025 2:07 PM EDT [facility] LEUKOCYTE ESTERASE Moderate(A) Negative 05/23/2025 2:07 PM EDT [facility] PROTEIN Trace(A) Negative 05/23/2025 2:07 PM EDT [facility] KETONES (URINE) Negative Negative 2:07 PM EDT [facility] UROBILINOGEN 0.2 eu/dL 0.2 eu/dL, 1.0 eu/dL 05/23/2025 2:07 PM EDT [facility] BILIRUBIN (URINE) Negative Negative 05/23/2025 2:07 PM EDT [facility] BLOOD/HGB Negative Negative 05/23/2025 2:07 PM EDT [facility] R.B.CELLS 3 0 - 5 05/23/2025 2:07 PM EDT [facility] SQUAMOUS EPITHELIUM 1 0 - 5 05/23/2025 2:07 PM EDT [facility] W.B.CELLS 90(H) 0 - 5 05/23/2025 2:07 PM EDT [facility] GLUCOSE (URINE) Negative Negative, 250 mg/dL 05/23/2025 2:07 PM EDT [facility] Urine Urine / Unknown 05/23/2025 1 2:51 PM EDT 05/23/2025 1:28 PM EDT us Atiya Srivastava TILE POWER SHEAR OPERATOR-FULL TIME BABYSITTER URINE ORDERABLES Final Result [facility] [address] [place] [address], documented in this encounter Visit Diagnoses Diagnosis Type 2 diabetes mellitus with diabetic chronic kidney disease (CMS-HCC) Urinary tract infection, site not specified documented in this encounter Care Teams Active Directory Specialist Relationship Specialty Start Date End Date Provider, Colt, PCP - General 01/05/13 documented as of this encounter
[2025-06-25 17:01] LABS: Lactate/Lactic Acid 2.0 mmol/L (0.4-2.0)
[2025-06-25 17:10] LABS: Cast Seen? NONE SEEN #/LPF (NONE SEEN); Crystals Seen? None Seen #/HPF (None Seen); Urine Culture Indicated NO
--- OUTSIDE RECORDS SUMMARY | 2025-06-25 17:45 | XMS_ITS | CCD ---
Author Organization [facility] Care Team Providers Care Plaster Model And Mold Maker Name Role Phone ABEBE, JIANLIN Unavailable Unavailable ABEBE, JIANLIN Unavailable Unavailable DURBIN, TAN Unavailable Unavailable DURBIN, TAN Unavailable Unavailable ABEBE, JIANLIN Unavailable Unavailable ABEBE, JIANLIN Unavailable Unavailable PAVLOCK, MAX ANAND Unavailable Unavailable PAVLOCK, MAX ANAND Unavailable Unavailable ABEBE, JIANLIN Unavailable Unavailable ABEBE, JIANLIN Unavailable Unavailable PAVLOCK, MAX ANAND Unavailable Unavailable PAVLOCK, MAX ANAND Unavailable Unavailable UT Unavailable Unavailable ABEBE, JIANLIN Unavailable Unavailable KAEL ADKINS Primary Care Unavailable KAEL ADKINS Attending Unavailable KAEL ADKINS Admitting Unavailable REQUEST, NONE LISTED Admitting Unavaila ble REQUEST, DR CROWLEY LISTED Attending Unavaila ble ARIANNA, STACIA Primary Care Unavailable MISC, DR COOK Consulting Unavailable ARIANNA, STACIA Admitting Unavailable ARIANNA, STACIA Attending Unavailable ARIANNA, STACIA Primary Care Unavailable ARIANNA, STACIA Admitting Unavailable ARIANNA, STACIA Attending Unavailable ARIANNA, STACIA Primary Care Unavailable HOMary Jane ., DR SCRUGGS Admitting Unavailable HOMary Jane ., DR SCRUGGS Attending Unavailable ARIANNA, STACIA Primary Care Unavailable HOY ., DR SCRUGGS Consulting Unavailable MISC, DR COOK Admitting Unavailable MISC, DR COOK Attending Unavailable ARIANNA, STACIA Primary Care Unavailable MISC, DR COOK Consulting Unavailable HOMary Jane ., DR SCRUGGS Admitting Unavailable HOMary Jane ., DR SCRUGGS Attending Unavailable ARIANNA, STACIA Primary Care Unavailable HOY ., DR SCRUGGS Consulting Unavailable ARIANNA, STACIA Admitting Unavailable ARIANNA, STACIA Attending Unavailable ARIANNA, STACIA Primary Care Unavailable ARIANNA, STACIA Consulting Unavailable Kael Adkins MD Primary Care Provider [phone] ANNA KUMAR Attending Unavailable MD Kael Adkins Primary Care Provider [phone] DG Scott Attending Provider Kael Adkins MD Attending Provider Kael Adkins Admitting Unavailable Kael Adkins Attending Unavailable Kael Adkins Primary Care Unavailable Wendy Scott Admitting Unavailable Wendy Scott Attending Unavailable STACIA KELLER Attending Unavailable PROVIDER, CONVERSION Primary Care Unavailable Allergies Allergy Classification Reported Allergen(s) Allergy Type Date of Onset Reaction(s) Facility (5 sources) codeine Drug Allergy 12-28-19 13 AOF, Unknown Reaction [facility] Rep[facility] (1 source) Dust; Translations: [Dust] Propensity to adverse reactions (disorder) 12-28-19 13 [facility] Rep[facility] (3 sources) glycerin Drug Allergy 12-28-19 13 Unknown Reaction [facility] (1 source) Grass pollen; Translations: [grass pollen] Propensity to adverse reactions (disorder) 12-28-19 13 [facility] (5 sources) Latex Drug allergy (disorder) 12-28-19 13 Unknown Reaction [facility] (2 sources) meperidine Drug Allergy 12-28-19 13 AOF [facility] Rep[facility] (4 sources) mold extract; Translations: [Mold] Drug Allergy 12-28-19 13 Sneezing [facility] (3 sources) nitrofurantoin Drug Allergy 12-23-19 16 [facility] (1 source) sulfamethoxazole / trimethoprim Drug Allergy 12-28-19 13 [facility] (2 sources) Desonide Drug Allergy 06-13-20 13 [facility] (2 sources) Glycerin Drug Allergy 06-13-20 13 [facility] (4 sources) Lidocaine Drug Allergy 06-13-20 13 Unknown Reaction [facility] (2 sources) Meperidine Drug Allergy 12-23-19 16 [facility] (2 sources) Sulfonamides (Antibiotic) Drug allergy (disorder) 12-23-19 16 [facility] (2 sources) Grass Pollen-[place], Standard Drug allergy (disorder) 06-13-20 13 [facility] (2 sources) Misc-ENV; Translations: [Misc-ENV] Propensity to adverse reactions (disorder) 06-13-20 13 [facility] Repository (3 sources) Meperidine; Translations: [meperidine] Drug Allergy 04-08-20 Confusion [facility] (3 sources) Sulfonamides (Antibiotic); Translations: [Sulfa (Sulfonamide Antibiotics)] Allergy to substance 04-08-20 [facility] (3 sources) cat dander; Translations: [cat dander] Allergy to substance 04-08-20 Sneezing [facility] (3 sources) NSAIDS (Non-Steroidal Anti-Inflamma; Translations: [NSAIDS (Non-Steroidal Anti-Inflamma] Allergy to substance 04-08-20 [facility] (1 source) Codeine Drug Allergy 04-08-20 [facility] Rep[facility] (1 source) Glycerin Drug Allergy 04-08-20 [facility] (1 source) Latex Drug allergy (disorder) 04-08-20 [facility] Rep[facility] (1 source) Lidocaine Drug Allergy 04-08-20 [facility] Repository Medications Current Medications Medication Drug Class(es) Dates Sig (Normalized) Sig (Original) 8 hr acetaminophen 650 mg extended release oral tablet (4 sources) Start: 05-10-2019 take 1 tablet by mouth every four to six hours as needed for pain Acetaminophen 650 mg Tablet Extended Release Active 650 MG PO EVERY 4-6 HOURS as needed for Pain May 10, 2019 12:00am Start: 05-10-2019 End: 11-14-2020 Acetaminophen 650 mg Supposi tory Discontinued 650 MG UT Q6H as needed for Fever May 10, 2019 12:00am November 14, 2020 8:57am Albuterol Sulfate (Proair Hfa) 90 mcg/actuation Hfa Aerosol Inhaler (2 sources) Start: 12-23-2017 take 1 puff(s) by inhalation every six hours as needed Albuterol Sulfate (Proair Hfa) 90 mcg/actuation Hfa Aerosol Inhaler Active 2 PUFF INHALATION Every 6 hours as needed for Shortness Of Breath December 23, 2017 1:00am Start: 12-23-2017 take 1 puff(s) by in halation every six hours Albuterol Sulfate (Proair Hfa) 90 mcg/actuation Hfa Aerosol Inhaler Active 2 PUFF INHALATION Every 6 hours December 23, 2017 1:00am allopurinol 100 mg oral tablet (2 sources) Xanthine Oxidase Inhibitor Start: 05-10-2019 take 1 tablet by mouth once daily Allopurinol 100 mg tablet Active 100 MG PO Daily May 10, 2019 12:00am atenolol 25 mg oral tablet (2 sources) beta-Adrenergic Dion Start: 12-23-2017 Atenolol 25 mg tablet Active 12.5 MG PO Daily December 23, 2017 1:00am Start: 12-23-2017 take 12.5 mg by mouth once lolis ly Atenolol Active 12.5 MG PO Daily December 23, 2017 1:00am 168 hr buprenorphine 0.02 mg/hr transdermal system (2 sources) Partial Opioid Agonist Start: 12-23-2017 apply 1 ug topically every hour Buprenorphine 20 mcg/hour patch weekly Active 20 mcg/hr TOPICAL every week December 23, 2017 1:00am calcium carbonate 1500 mg / cholecalciferol 800 unt chewable tablet (2 sources) Vitamin D Start: 12-23-2017 Calcium Carbonate-Vitamin D3 (Caltrate 600 + D) 600 mg (1,500 mg)-800 unit Tablet,Chewable Active 1 TAB PO Daily December 23, 2017 1:00am chlorpheniramine maleate 4 mg oral tablet (2 sources) Histamine-1 Receptor Antagonist Start: 12-23-2017 Chlorpheniramine Maleate (Chlor-Trimeton) 4 mg Tablet Active 2 MG PO Daily December 23, 2017 1:00am cyclobenzaprine hydrochloride 10 mg oral tablet (6 sources) Muscle Relaxant Start: 12-23-2017 End: 05-10-2019 take 1 tablet by mouth twice daily as needed for muscle spasms Cyclobenzaprine 10 mg Tablet Active 10 MG PO Twice daily as needed for Muscle Spasm May 10, 2019 12:00am Start: 12-23-2017 End: 05-10-2019 Cyclobenzaprine 5 mg tablet Discontinued TABLET December 23, 2017 1:00am May 10, 2019 11:25am Start: 12-23-2017 End: 05-10-2019 Cyclobenzaprine Discontinued TABLET December 23, 2017 1:00am May 10, 2019 11:25am donepezil hydrochloride 5 mg oral tablet (2 sources) Start: 12-23-2017 take 1 tablet by mouth once daily Donepezil 5 mg tablet Active 5 MG PO Daily December 23, 2017 1:00am escitalopram 20 mg oral tablet (2 sources) Serotonin Reuptake Inhibitor Start: 12-23-2017 take 1 tablet by mouth twice daily Escitalopram Oxalate 20 mg tablet Active 20 MG PO Twice daily December 23, 2017 1:00am gabapentin 600 mg oral tablet (2 sources) Anti-epileptic Agent Start: 12-23-2017 Gabapentin 600 mg tablet Active 800 MG PO Daily December 23, 2017 1:00am Start: 12-23-2017 take 800 mg by mouth once otoniel y Gabapentin Active 800 MG PO Daily December 23, 2017 1:00am Lactobacillus Combination No.4 (Probiotic) 3 billion cell Capsule (2 sources) Start: 05-10-2019 take 3 capsules by mouth once daily Lactobacillus Combination No.4 (Probiotic) 3 billion cell Capsule Active 3000 MMU CELLS PO Daily May 10, 2019 12:00am meclizine hydrochloride 12.5 mg oral tablet (2 sources) Antiemetic Start: 05-10-2019 take 1 tablet by mouth once daily as needed for dizziness Meclizine 12.5 mg Tablet Active 12.5 MG PO Daily as needed for Dizziness May 10, 2019 12:00am metFORMIN hydrochloride 500 mg oral tablet (2 sources) Biguanide Start: 05-10-2019 take 1 tablet by mouth once daily Metformin 500 mg Tablet Active 500 MG PO Daily May 10, 2019 12:00am Multivitamin (Daily-Justo) Tablet (2 sources) Start: 12-23-2017 take 1 tablet by mouth once daily Multivitamin (Daily-Justo) Tablet Active 1 TAB PO Daily December 23, 2017 1:00am ondansetron 4 mg disintegrating oral tablet (2 sources) Serotonin-3 Receptor Antagonist Start: 05-10-2019 take 1 tablet by mouth every four hours as needed for nausea Ondansetron 4 mg Tablet,Disintegrat ing Active 4 MG PO Q4H as needed for Nausea May 10, 2019 12:00am pantoprazole 40 mg delayed release oral tablet (4 sources) Proton Pump Inhibitor Start: 12-23-2017 End: 05-10-2019 take 1 tablet by mouth once daily Pantoprazole 40 mg tablet,delayed release (DR/EC) Active 40 MG PO Daily December 23, 2017 1:00am Start: 12-23-2017 End: 05-10-2019 Pantoprazole 40 mg tablet,de layed release (/EC) Discontinued December 23, 2017 1:00am May 10, 2019 11:35am polyethylene glycol 3350 29438 mg powder for oral solution (2 sources) Osmotic Laxative Start: 05-10-2019 Polyethylene Glycol 3350 (Miralax) 17 gram Powder In Packet Active 17 GM PO Daily as needed for Constipation May 10, 2019 12:00am pravastatin sodium 10 mg oral tablet (2 sources) HMG-CoA Reductase Inhibitor Start: 05-10-2019 take 1 tablet by mouth once daily Pravastatin 10 mg Tablet Active 10 MG PO Daily May 10, 2019 12:00am risperiDONE 0.25 mg oral tablet (2 sources) Atypical Antipsychotic Start: 05-10-2019 take 1 tablet by mouth twice daily Risperidone 0.25 mg Tablet Active 0.25 MG PO Twice daily May 10, 2019 12:00am spironolactone 25 mg oral tablet (2 sources) Aldosterone Antagonist Start: 05-10-2019 take 1 tablet by mouth once daily Spironolactone 25 mg Tablet Active 25 MG PO Daily May 10, 2019 12:00am triamcinolone acetonide 0.001 mg/mg topical ointment (2 sources) Corticosteroid Start: 12-23-2017 Triamcinolone Acetonide 0.1 % ointment Active 1 APPLIC TOPICAL Daily December 23, 2017 1:00am apply daily as discussed, no more than 2 wks valACYclovir 1000 mg oral tablet (2 sources) Herpesvirus Nucleoside Analog DNA Polymerase Inhibitor, Herpes Simplex Virus Nucleoside Analog DNA Polymerase Inhibitor, Herpes Zoster Virus Nucleoside Analog DNA Polymerase Inhibitor Start: 02-11-2022 Valacyclovir 1 gram tablet Active 1000 MG PO Three times daily February 11, 2022 12:00am Start: 02-11-2022 take 1000 mg by mout h three times daily Valacyclovir Active 1000 MG PO Three times daily February 11, 2022 12:00am vitamin b12 2.5 mg sublingual tablet (2 sources) Vitamin B12 Start: 05-10-2019 take 1 tablet under the tongue once daily Cyanocobalamin (Vitamin B-12) (Vitamin B-12) 2,500 mcg Tablet, Sublingual Active 2500 MCG SUBLINGUAL Daily May 10, 2019 12:00am Completed/Discontinued Medications Medication Drug Class(es) Dates Sig (Normalized) Sig (Original) acetaminophen 325 mg / oxyCODONE hydrochloride 5 mg oral tablet (2 sources) Opioid Agonist Start: 05-10-2019 End: 07-12-2020 take 2 tablets by mouth every four to six hours as needed for pain Oxycodone-Acetamin ophen 5-325 mg Tablet Discontinued 2 TAB PO EVERY 4-6 HOURS as needed for Pain May 10, 2019 12:00am July 12, 2020 2:05pm cefdinir 300 mg oral capsule (2 sources) Cephalosporin Antibacterial Start: 02-11-2022 End: 04-08-2022 take 2 capsules by mouth once daily Cefdinir 300 mg Capsule Discontinued 600 MG PO Daily February 11, 2022 12:00am April 08, 2022 1:02pm Start: 02-11-2022 End: 04-08-2022 take 600 mg by mouth once daily Cefdinir Discontinued 600 MG PO Daily February 11, 2022 12:00am April 08, 2022 1:02pm ciprofloxacin 500 mg oral tablet (2 sources) Quinolone Antimicrobial Start: 03-17-2021 End: 06-23-2021 take 1 tablet by mouth twice daily Ciprofloxacin Hcl (Cipro) 500 mg Tablet Discontinued 500 MG PO Twice daily March 17, 2021 12:00am June 23, 2021 11:25am docusate sodium 50 mg / sennosides, group home 8.6 mg oral tablet (2 sources) Start: 05-10-2019 End: 07-12-2020 take 2 tablets by mouth once daily at bedtime Sennosides-Docusate Sodium (Senna-S) 8.6-50 mg Tablet Discontinued 2 TAB PO Daily at bedtime May 10, 2019 12:00am July 12, 2020 2:05pm doxycycline hyclate 100 mg oral capsule (2 sources) Tetracycline-clas s Drug Start: 09-07-2019 End: 11-16-2019 take 1 capsule by mouth twice daily Doxycycline Hyclate 100 mg capsule Discontinued 100 MG PO Twice daily September 07, 2019 12:00am November 16, 2019 9:03am avoid taking Calcium/Iron at the same time as the Doxy ferrous sulfate 324 mg delayed release oral tablet (2 sources) Start: 12-23-2017 End: 07-12-2020 take 1 tablet by mouth twice daily Ferrous Sulfate 324 mg (65 mg iron) tablet,delayed release (DR/EC) Discontinued 325 MG PO Twice daily December 23, 2017 1:00am July 12, 2020 2:03pm hydroCHLOROthiazide 50 mg oral tablet (2 sources) Thiazide Diuretic Start: 12-23-2017 End: 05-10-2019 Hydrochlorothiazide 50 mg Tablet Discontinued TABLET December 23, 2017 1:00am May 10, 2019 11:35am Start: 12-23-2017 End: 05-10-2019 Hydrochlorothiazide Disconti nued TABLET December 23, 2017 1:00am May 10, 2019 11:35am L.Acidoph-L.Bulg-B.Bif-S.The rm (Bacid (L. Acidophilus)) 1 billion cell- 250 mg Tablet (2 sources) Start: 05-10-2019 End: 07-12-2020 take 1 tablet by mouth twice daily L.Acidoph-L.Bulg-B.Bif-S.Therm (Bacid (L. Acidophilus)) 1 billion cell- 250 mg Tablet Discontinued 1 TAB PO Twice daily May 10, 2019 12:00am July 12, 2020 2:05pm traZODone hydrochloride 50 m g oral tablet (2 sources) Cody Chang anthony Inhib itor Start: 05-10-2019 End: 07-12-2020 Trazodone 50 mg Tablet Discontinued 25 MG PO Daily at bedtime May 10, 2019 12:00am July 12, 2020 2:04pm Start: 05-10-2019 End: 07-12-2020 take 25 mg by mouth once daily at bedtime Trazodone Discontinued 25 MG PO Daily at bedtime May 10, 2019 12:00am July 12, 2020 2:04pm Problems Active Problems Problem Classification Problem Date Documented Da te Episodic/Chronic Administrative/social admission (6 sources) Reduced mobility; Translations: [Other reduced mobility] 07-12-2020 Episodic Allergic reactions (6 sources) Latex allergy status; Translations: [Allergy status to other antibiotic agents status] Onset: 8 12-23-2017 Episodic Complications of surgical procedures or medical care (1 source) Other postprocedural complications and disorders of digestive system; Translations: [OTH POSTPROCEDURAL COMPLICATIONS AND DISORDERS OF DGSTV SYS] Onset: 8 Coronary atherosclerosis and other heart disease (1 source) Atherosclerotic heart disease of [place] coronary artery without angina pectoris; Translations: [ATHSCL HEART DISEASE OF [place] CORONARY ARTERY W/O ANG PCTRS] Onset: 8 Chronic Delirium, dementia, and amnestic and other cognitive disorders (3 sources) Dementia; Translations: [Unspecified dementia without behavioral disturbance] 07-12-2020 Chronic Diabetes mellitus with complications (1 source) Type 2 diabetes mellitus with diabetic neuropathy, unspecified; Translations: [TYPE 2 DIABETES MELLITUS WITH DIABETIC NEUROPATHY, UNSP] Onset: 8 Esophageal disorders (1 source) Gastro-esophageal reflux disease without esophagitis; Translations: [GASTRO-ESOPHAGEAL REFLUX DISEASE WITHOUT ESOPHAGITIS] Onset: 8 Chronic Essential hypertension (2 sources) Essential (primary) hypertension; Translations: [ESSENTIAL (PRIMARY) HYPERTENSION] Onset: 8 Chronic Fracture of upper limb (5 sources) Displaced fracture of distal phalanx of unspecified thumb, initial encounter for closed fracture; Translations: [Fracture of unspecified phalanx of unspecified finger, initial encounter for closed fracture] Onset: 3 Episodic Mood disorders (1 source) Dysthymic disorder; Translations: [DYSTHYMIC DISORDER] Onset: 3 Chronic Mood disorders (1 source) Major depressive disorder, single episode, unspecified; Translations: [MAJOR DEPRESSIVE DISORDER, SINGLE EPISODE, UNSPECIFIED] Onset: 8 Mycoses (3 sources) Candidiasis; Translations: [Candidiasis, unspecified] 01-02-2021 Episodic Open wounds of extremities (1 source) Laceration without foreign body of right index finger without damage to nail, initial encounter; Translations: [LAC W/O FB RT IF W/O DMG NAIL INIT] Onset: 3 Episodic Osteoarthritis (1 source) Primary osteoarthritis, right hand; Translations: [PRIMARY OSTEOARTHRITIS RIGHT HAND] Onset: 3 Chronic Other connective tissue disease (1 source) Impingement syndrome of right shoulder; Translations: [IMPINGEMENT SYNDROME RIGHT SHOULDER] Onset: 3 Episodic Other connective tissue disease (1 source) Trigger finger, right index finger; Translations: [TRIGGER FINGER RIGHT INDEX FINGER] Onset: 3 Episodic Other ear and sense organ disorders (1 source) Impacted cerumen of bilateral ears; Translations: [Impacted cerumen, bilateral] 12-14-2023 Episodic Other gastrointestinal disorders (5 sources) Fistula of intestine; 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, excluding rectum and anus] Onset: 8 05-03-2024 Episodic Other gastrointestinal disorders (2 sources) Gastrointestinal fistula; 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] 01-13-2018 Episodic Other nervous system disorders (1 source) Complex regional pain syndrome I of right upper limb; Translations: [COMPLEX RGN PAIN SYND I RT UP LIMB] Onset: 3 Chronic Other nutritional; endocrine; and metabolic disorders (2 sources) Obesity; Translations: [Obesity, unspecified] 12-23-2017 Chronic Other nutritional; endocrine; and metabolic disorders (1 source) Obesity, unspecified; Translations: [Obesity, unspecified] 05-03-2024 Chronic Residual codes; unclassified (1 source) Inflammatory disorder 07-14-2023 Episodic Unclassified (2 sources) Inflammatory disorder; Translations: [Inflammation] 07-14-2023 Urinary tract infections (4 sources) Urinary tract infection, site not specified; Translations: [UTI SITE NOT SPECIFIED] Onset: 3 Episodic Past or Other Problems Problem Classification Problem Date Documented Date Episodic/Chronic Complications of surgical procedures or medical care (4 sources) Non-healing surgical wound; Translations: [Other complications of procedures, not elsewhere classified, initial encounter] Onset: 05-03-2024 06-03-2022 Episodic Genitourinary symptoms and ill-defined conditions (4 sources) Unspecified symptoms and signs involving the genitourinary system; Translations: [UNS SYMPTOMS SIGNS INVLV SYSTEM] Onset: 02-08-2022 Episodic Other aftercare (4 sources) Encounter for therapeutic drug level monitoring; Translations: [ENCOUNTER FOR THERAPEUTIC DRUG LEVEL MONITORING] Onset: 05-24-2018 Episodic Other aftercare (1 source) Other extermination inspector (current) drug therapy; Translations: [OTHER CROP SPECIALIST (CURRENT) DRUG THERAPY] Onset: 05-24-2018 Episodic Screening or history of mental health and substance abuse (1 source) Personal history of nicotine dependence; Translations: [PERSONAL HISTORY OF NICOTINE DEPENDENCE] Onset: 06-27-2018 Episodic Unclassified (2 sources) Unknown / UNK(Unknown) Onset: 05-24-2018 Results Test Name Value Interpretation Reference Range Facility URINALYSISon 06-14-2025 Bilirubin Ql (U) Negative Normal Negative [facility] Comment on above: Order Comment: Urine received without preservative. Delays in transport may affect results. Interpret with caution. A clinical correlation is recommended. Performed By: #### T HYR #### [facility] ([address] [address] VIR BLOOD/HGB Trace Abnormal Negative [facility] Comment on above: Order Comment: Urine received without preservative. Delays in transport may affect results. Interpret with caution. A clinical correlation is recommended. Performed By: #### T HYR #### [facility] ([address] [address] VIR Color (U) Yellow Normal Yellow [facility] Comment on above: Order Comment: Urine received without preservative. Delays in transport may affect results. Interpret with caution. A clinical correlation is recommended. Performed By: #### T HYR #### [facility] ([address] [address] VIR Glucose Ql (U) Negative Normal Negative, 250 mg/dL [facility] Comment on above: Order Comment: Urine received without preservative. Delays in transport may affect results. Interpret with caution. A clinical correlation is recommended. Performed By: #### T HYR #### [facility] ([address] [address] VIR Ketones Ql (U) Negative Normal Negative [facility] Comment on above: Order Comment: Urine received without preservative. Delays in transport may affect results. Interpret with caution. A clinical correlation is recommended. Performed By: #### T HYR #### [facility] ([address] [address] VIR Leukocyte esterase Test strip Ql (U) Moderate Abnormal Negative [facility] Comment on above: Order Comment: Urine received without preservative. Delays in transport may affect results. Interpret with caution. A clinical correlation is recommended. Performed By: #### T HYR #### [facility] ([address] [address] VIR Nitrite Ql (U) Positive Abnormal Negative [facility] Comment on above: Order Comment: Urine received without preservative. Delays in transport may affect results. Interpret with caution. A clinical correlation is recommended. Performed By: #### T HYR #### [facility] ([address] [address] VIR PH,URINE 6.0 Normal 5.0-8.5 [facility] Comment on above: Order Comment: Urine received without preservative. Delays in transport may affect results. Interpret with caution. A clinical correlation is recommended. Performed By: #### T HYR #### [facility] ([address] [address] VIR Protein Ql (U) Trace Abnormal Negative [facility] Comment on above: Order Comment: Urine received without preservative. Delays in transport may affect results. Interpret with caution. A clinical correlation is recommended. Performed By: #### T HYR #### [facility] ([address] [address] VIR R.B.CELLS 3 Normal 0-5 [facility] Comment on above: Order Comment: Urine received without preservative. Delays in transport may affect results. Interpret with caution. A clinical correlation is recommended. Performed By: #### T HYR #### [facility] ([address] [address] VIR Specific gravity (U) [Rel density] 1.025 Normal 1.003-1.035 [facility] Comment on above: Order Comment: Urine received without preservative. Delays in transport may affect results. Interpret with caution. A clinical correlation is recommended. Performed By: #### T HYR #### [facility] ([address] [address] VIR SQUAMOUS EPITHELIUM 2 Normal 0-5 [facility] Comment on above: Order Comment: Urine received without preservative. Delays in transport may affect results. Interpret with caution. A clinical correlation is recommended. Performed By: #### T HYR #### [facility] ([address] [address] VIR TURBIDITY Cloudy Abnormal Clear [facility] Comment on above: Order Comment: Urine received without preservative. Delays in transport may affect results. Interpret with caution. A clinical correlation is recommended. Performed By: #### T HYR #### [facility] ([address] [address] VIR UROBILINOGEN 0.2 eu/dL Normal 0.2 eu/dL, 1.0 eu/dL [facility] Comment on above: Order Comment: Urine received without preservative. Delays in transport may affect results. Interpret with caution. A clinical correlation is recommended. Performed By: #### T HYR #### [facility] ([address] [address] VIR W.B.CELLS >^100 High 0-5 [facility] Comment on above: Order Comment: Urine received without preservative. Delays in transport may affect results. Interpret with caution. A clinical correlation is recommended. Performed By: #### T HYR #### [facility] ([address] [address] VIR URINE CULTUREon 06-14-2025 Bacteria identified Cx Nom (U) CULTURE RESULTS ESCHERICHIA COLI >100,000 CFU/mL Escherichia [...] F Trimethoprim + Sulfamethoxazole S <=^1.0 F Susceptible [facility] Comment on above: Order Comment: Along with 10,000 to 50,000 CFU/mL Normal Urogenital Dania.Urine received without preservative - delays in transport may affect results. Interpret with caution and clinical correlation is recommended. Performed By: #### T HYR #### [facility] ([address] [place] [address] VIR URINALYSISon 05-23-2025 Bilirubin Ql (U) Negative Normal Negative [facility] Comment on above: Performed By: #### T HYR #### [facility] ([address] [place] [address] VIR BLOOD/HGB Negative Normal Negative [facility] Comment on above: Performed By: #### T HYR #### [facility] ([address] [place] [address] VIR Color (U) Yellow Normal Yellow, Colorless [facility] Comment on above: Performed By: #### T HYR #### [facility] ([address] [place] [address] VIR Glucose Ql (U) Negative Normal Negative, 250 mg/dL [facility] Comment on above: Performed By: #### T HYR #### [facility] ([address] [place] [address] VIR Ketones Ql (U) Negative Normal Negative [facility] Comment on above: Performed By: #### T HYR #### [facility] ([address] [place] [address] VIR Leukocyte esterase Test strip Ql (U) Moderate Abnormal Negative [facility] Comment on above: Performed By: #### T HYR #### [facility] ([facility]) [address] [place] [place] [address] VIR Nitrite Ql (U) Positive Abnormal Negative [facility] Comment on above: Performed By: #### T HYR #### [facility] ([facility]) [address] [place] [address] [place] [address] VIR PH,URINE 6.0 Normal 5.0-8.5 [facility] Comment on above: Performed By: #### T HYR #### [facility] ([address] [place] [address] VIR Protein Ql (U) Trace Abnormal Negative [facility] Comment on above: Performed By: #### T HYR #### [facility] ([address] [place] [address] VIR R.B.CELLS 3 Normal 0-5 [facility] Comment on above: Performed By: #### T HYR #### [facility] ([address] [place] [address] VIR Specific gravity (U) [Rel density] 1.020 Normal 1.003-1.035 [facility] Comment on above: Performed By: #### T HYR #### [facility] ([address] [place] [address] VIR SQUAMOUS EPITHELIUM 1 Normal 0-5 [facility] Comment on above: Performed By: #### T HYR #### [facility] ([place] [address] [place] [address] VIR TURBIDITY Hazy Abnormal Clear [facility] Comment on above: Performed By: #### T HYR #### [facility] ([address] [place] [address] VIR UROBILINOGEN 0.2 eu/dL Normal 0.2 eu/dL, 1.0 eu/dL [facility] Comment on above: Performed By: #### T HYR #### [facility] ([facility]) [address] [place] [address] VIR W.B.CELLS 90 High 0-5 [facility] Comment on above: Performed By: #### T HYR #### [facility] ([facility]) [address] [place] [address] VIR URINE CULTUREon 05-23-2025 Bacteria identified Cx Nom (U) CULTURE RESULTS ESCHERICHIA COLI >100,000 CFU/mL Escherichia coli [ S = SUSCEPTIBLE R = RESISTANT I = INTERMEDIATE S-DO = Susceptible-dose dependent NS = Non-suscceptible NO = No Interpretation ] Organism: ESCHERICHIA COLI Antibiotic Interpretation JONATHAN Status Ampicillin S <=^2.0 F AMP/SULBACTAM S <=^2.0 F PIPERACIL/TAZOBACTAM S <=^4.0 F Cefazolin (non-urinary) S <=^1.0 F Cefazolin (urinary) S <=^1.0 F Ceftriaxone S <=^0.25 F Gentamicin S <=^1.0 F Ciprofloxacin S <=^0.06 F Levofloxacin S <=^0.12 F Nitrofurantoin S <=^16.0 F Trimethoprim + Sulfamethoxazole S <=^1.0 F Susceptible [facility] Comment on above: Performed By: #### T HYR #### [facility] ([address] [address] VIR URINALYSISon 05-01-2025 Bilirubin Ql (U) Negative Normal Negative [facility] Comment on above: Order Comment: Urine received without preservative. Delays in transport may affect results. Interpret with caution. A clinical correlation is recommended. Performed By: #### U A #### [facility] ([facility]) [address] [place] [address] VIR BLOOD/HGB Negative Normal Negative [facility] Comment on above: Order Comment: Urine received without preservative. Delays in transport may affect results. Interpret with caution. A clinical correlation is recommended. Performed By: #### U A #### [facility] ([address] [place] [address] VIR Color (U) Yellow Normal Yellow, Colorless [facility] Comment on above: Order Comment: Urine received without preservative. Delays in transport may affect results. Interpret with caution. A clinical correlation is recommended. Performed By: #### U A #### [facility] ([address] [place] [address] VIR Glucose Ql (U) Negative Normal Negative, 250 mg/dL [facility] Comment on above: Order Comment: Urine received without preservative. Delays in transport may affect results. Interpret with caution. A clinical correlation is recommended. Performed By: #### U A #### [facility] ([address] [place] [address] VIR Ketones Ql (U) Negative Normal Negative [facility] Comment on above: Order Comment: Urine received without preservative. Delays in transport may affect results. Interpret with caution. A clinical correlation is recommended. Performed By: #### U A #### [address] [place] [address] VIR Leukocyte esterase Test strip Ql (U) Trace Abnormal Negative [facility] Comment on above: Order Comment: Urine received without preservative. Delays in transport may affect results. Interpret with caution. A clinical correlation is recommended. Performed By: #### U A #### [facility] ([address] [place] [address] VIR Nitrite Ql (U) Negative Normal Negative [facility] Comment on above: Order Comment: Urine received without preservative. Delays in transport may affect results. Interpret with caution. A clinical correlation is recommended. Performed By: #### U A #### [address] [place] [address] VIR PH,URINE 6.0 Normal 5.0-8.5 [facility] Comment on above: Order Comment: Urine received without preservative. Delays in transport may affect results. Interpret with caution. A clinical correlation is recommended. Performed By: #### U A #### [facility] ([address] [address] VIR Protein Ql (U) Negative Normal Negative [facility] Comment on above: Order Comment: Urine received without preservative. Delays in transport may affect results. Interpret with caution. A clinical correlation is recommended. Performed By: #### U A #### [facility] ([address] [address] VIR Specific gravity (U) [Rel density] <=^1.005 Normal 1.003-1.035 [facility] Comment on above: Order Comment: Urine received without preservative. Delays in transport may affect results. Interpret with caution. A clinical correlation is recommended. Performed By: #### U A #### [facility] ([address] [address] VIR SQUAMOUS EPITHELIUM 1 Normal 0-5 [facility] Comment on above: Order Comment: Urine received without preservative. Delays in transport may affect results. Interpret with caution. A clinical correlation is recommended. Performed By: #### U A #### [facility] ([address] [address] VIR TURBIDITY Clear Normal Clear [facility] Comment on above: Order Comment: Urine received without preservative. Delays in transport may affect results. Interpret with caution. A clinical correlation is recommended. Performed By: #### U A #### [facility] ([address] [address] VIR UROBILINOGEN 0.2 eu/dL Normal 0.2 eu/dL, 1.0 eu/dL [facility] Comment on above: Order Comment: Urine received without preservative. Delays in transport may affect results. Interpret with caution. A clinical correlation is recommended. Performed By: #### U A #### [facility] ([address] [address] VIR W.B.CELLS 20 High 0-5 [facility] Comment on above: Order Comment: Urine received without preservative. Delays in transport may affect results. Interpret with caution. A clinical correlation is recommended. Performed By: #### U A #### [facility] ([address] [place] [address] VIR URINE CULTUREon 05-01-2025 Bacteria identified Cx Nom (U) CULTURE RESULTS ESCHERICHIA COLI >100,000 CFU/mL Escherichia [...] F Trimethoprim + Sulfamethoxazole S <=^1.0 F Susceptible [facility] Comment on above: Order Comment: Urine received without preservative - delays in transport may affect results. Interpret with caution and clinical correlation is recommended. Performed By: #### T HYR #### [facility] ([address] [place] [address] VIR BASIC METABOLIC PANELon Anion gap [Moles/Vol] 12 mmol/L Normal 5-15 [facility] Comment on above: Performed By: #### B MP #### [facility] ([address] [address] VIR Calcium [Mass/Vol] 9.4 mg/dL Normal 8.5-10.5 [facility] Comment on above: Performed By: #### B MP #### [facility] ([address] [place] [address] VIR Chloride [Moles/Vol] 102 mmol/L Normal 98-109 [facility] Comment on above: Performed By: #### B MP #### [facility] ([address] [place] [address] VIR CO2 [Moles/Vol] 21 mmol/L Low 22-32 [facility] Comment on above: Performed By: #### B MP #### [facility] ([address] [place] [address] VIR Creatinine [Mass/Vol] 2.29 mg/dL High 0.40-1.00 [facility] Comment on above: Result Comment: METH OD TRACEABLE TO IDMS STANDARD Performed By: #### B MP #### [facility] ([address] [address] VIR GFR/1.73 sq M.predicted among non-blacks MDRD (S/P/Bld) [Vol rate/Area] 20 mL/min/{1.73_m2} Low >=60 [facility] Comment on above: Result Comment: eGFR not reported due to non-numeric value for Creatinine. Reported eGFR is based on the CKD-EPI 2021 equation that does not use a race coefficient. Performed By: #### B MP #### [facility] ([address] [place] [address] VIR Glucose [Mass/Vol] 188 mg/dL High 65-99 [facility] Comment on above: Performed By: #### B MP #### [facility] ([address] [place] [address] VIR Potassium [Moles/Vol] 4.9 mmol/L Normal 3.5-5.0 [facility] Comment on above: Performed By: #### B MP #### [facility]) [address] [place] [address]. [place] [address] VIR Sodium [Moles/Vol] 135 mmol/L Normal 134-146 [facility] Comment on above: Performed By: #### B MP #### [facility] ([facility]) [address] [place] [address]. [place] [address] VIR Urea nitrogen [Mass/Vol] 29 mg/dL High 5-27 [facility] Comment on above: Performed By: #### B MP #### [facility] ([facility]) [address] [place] [address] VIR Urine Cultureon 03-07-2025 Bacteria identified Cx Nom (U) 25,000 colonies/ml mixed bacterial skin contaminants 2 Days PERFORMED BY: [place] [address] PATHOLOGIST WELDING MACHINE OPERATOR [employer] DEBORAH VIZCAINO M.D. Normal [facility] Comment on above: Performed By: #### C UU #### [address] CBC WITH AUTO DIFFERENTIALon 03-05-2025 BASOPHILS ABSOLUTE COUNT (10*3/UL) BY AUTOMATED COUNT 0.0 10*3/uL Normal [facility] Comment on above: Performed By: #### C BCA #### [facility] ([facility]) [address] [place] [address] VIR BASOPHILS RELATIVE PERCENT BY AUTOMATED COUNT 0.7 % Normal [facility] Comment on above: Performed By: #### C BCA #### [facility] ([facility]) [address] [place] [address]. [place] [address] VIR CELLAVISION DIFFERENTIAL TYPE AUTOMATED DIFFERENTIAL Normal [facility] Comment on above: Performed By: #### C BCA #### [facility] ([facility]) [address] [place] [address] VIR Eosinophils (Bld) [#/Vol] 0.2 10*3/uL Normal [facility] Comment on above: Performed By: #### C BCA #### [facility] ([address] [address] VIR EOSINOPHILS RELATIVE PERCENT BY AUTOMATED COUNT 2.5 % Normal [facility] Comment on above: Performed By: #### C BCA #### [facility] ([address] [address] VIR Erythrocyte distribution width (RBC) [Ratio] 15.8 % High 11.5-15 [facility] Comment on above: Performed By: #### C BCA #### [facility] ([address] [address] VIR Hematocrit (Bld) [Volume fraction] 34.8 % Low 35-47 [facility] Comment on above: Performed By: #### C BCA #### [facility] ([address] [address] VIR Hemoglobin (Bld) [Mass/Vol] 11.4 g/dL Low 11.7-15.5 [facility] Comment on above: Performed By: #### C BCA #### [facility] ([address] [address] VIR LYMPHOCYTES ABSOLUTE COUNT (10*3/UL) BY AUTOMATED COUNT 2.0 10*3/uL Normal [facility] Comment on above: Performed By: #### C BCA #### [facility] ([address] [address] VIR LYMPHOCYTES RELATIVE PERCENT BY AUTOMATED COUNT 30.3 % Normal [facility] Comment on above: Performed By: #### C BCA #### [facility] ([address] [address] VIR MCH (RBC) [Entitic mass] 28.6 pg Normal 27-34 [facility] Comment on above: Performed By: #### C BCA #### [facility] ([address] [place] [address] VIR MCHC (RBC) [Mass/Vol] 32.7 g/dL Normal 32-36 [facility] Comment on above: Performed By: #### C BCA #### [facility] ([address] [place] [address] VIR MCV (RBC) [Entitic vol] 88 fL Normal 80-100 [facility] Comment on above: Performed By: #### C BCA #### [facility] ([address] [place] [address] VIR MONOCYTES ABSOLUTE COUNT (10*3/UL) BY AUTOMATED COUNT 0.6 10*3/uL Normal [facility] Comment on above: Performed By: #### C BCA #### [facility] ([address] [place] [address] VIR MONOCYTES RELATIVE PERCENT BY AUTOMATED COUNT 8.9 % Normal [facility] Comment on above: Performed By: #### C BCA #### [facility] ([address] [place] [address] VIR NEUTROPHILS ABSOLUTE COUNT BY AUTOMATED COUNT 3.8 10*3/uL Normal [facility] Comment on above: Performed By: #### C BCA #### [facility] ([address] [place] [address] VIR NEUTROPHILS RELATIVE PERCENT BY AUTOMATED COUNT 57.6 % Normal [facility] Comment on above: Performed By: #### C BCA #### [facility] ([address] [place] [address] VIR Platelet mean volume (Bld) [Entitic vol] 9.0 fL Normal 7-12 [facility] Comment on above: Performed By: #### C BCA #### [facility] ([address] [place] [address] VIR Platelets (Bld) [#/Vol] 236 10*3/uL Normal 150-450 [facility] Comment on above: Performed By: #### C BCA #### [facility] ([address] [place] [address] VIR RBC COUNT 3.98 X10E12/L Normal 3.8-5.2 [facility] Comment on above: Performed By: #### C BCA #### [facility] ([address] [place] [address] VIR WBC (Bld) [#/Vol] 6.6 10*3/uL Normal 4-11 [facility] Comment on above: Performed By: #### C BCA #### [facility] ([address] [place] [address] VIR COMPREHENSIVE METABOLIC PANE [place] 03-05-2025 Albumin [Mass/Vol] 4.1 g/dL Normal 3.2-5.3 [facility] Comment on above: Performed By: #### C MP #### [facility] ([address] [place] [address] VIR ALP [Catalytic activity/Vol] 76 U/L Normal 39-130 [facility] Comment on above: Performed By: #### C MP #### [facility] ([address] [place] [address] VIR ALT [Catalytic activity/Vol] 18 U/L Normal <=31 [facility] Comment on above: Performed By: #### C MP #### [facility] ([address] [place] [address] VIR Anion gap [Moles/Vol] 8 mmol/L Normal 5-15 [facility] Comment on above: Performed By: #### C MP #### [facility] ([address] [place] [address] VIR AST [Catalytic activity/Vol] 21 U/L Normal <=41 [facility] Comment on above: Performed By: #### C MP #### [facility] ([address] [place] [address] VIR Bilirubin [Mass/Vol] 0.6 mg/dL Normal 0.3-1.2 [facility] Comment on above: Performed By: #### C MP #### [facility] ([address] [place] [address] VIR Calcium [Mass/Vol] 9.4 mg/dL Normal 8.5-10.5 [facility] Comment on above: Performed By: #### C MP #### [facility] ([address] [place] [address] VIR Chloride [Moles/Vol] 103 mmol/L Normal 98-109 [facility] Comment on above: Performed By: #### C MP #### [facility] ([address] [place] [address] VIR CO2 [Moles/Vol] 24 mmol/L Normal 22-32 [facility] Comment on above: Performed By: #### C MP #### [facility] ([address] [place] [address] VIR Creatinine [Mass/Vol] 2.14 mg/dL High 0.40-1.00 [facility] Comment on above: Result Comment: METH OD TRACEABLE TO IDMS STANDARD Performed By: #### C MP #### [facility] ([address] [place] [address] VIR GFR/1.73 sq M.predicted among non-blacks MDRD (S/P/Bld) [Vol rate/Area] 22 mL/min/{1.73_m2} Low >=60 [facility] Comment on above: Result Comment: Repo rted eGFR is based on the CKD-EPI 2020 equation that does not use a race coefficient. Performed By: #### C MP #### [facility] ([facility]) [address] [place] [address] VIR Glucose [Mass/Vol] 102 mg/dL High 65-99 [facility] Comment on above: Performed By: #### C MP #### [facility] ([facility]) [address] [place] [place] [address] VIR Potassium [Moles/Vol] 6.3 mmol/L Critically high 3.5-5.0 [facility] Comment on above: Performed By: #### C MP #### [facility] ([address] [place] [address] VIR Protein [Mass/Vol] 7.0 g/dL Normal 6.0-8.0 [facility] Comment on above: Performed By: #### C MP #### [facility] ([address] [place] [address] VIR Sodium [Moles/Vol] 135 mmol/L Normal 134-146 [facility] Comment on above: Performed By: #### C MP #### [facility] ([address] [place] [address] VIR Urea nitrogen [Mass/Vol] 30 mg/dL High 5-27 [facility] Comment on above: Performed By: #### C MP #### [facility] ([address] [place] [address] VIR HEMOGLOBIN A1Con 03-05-2025 Glucose [Mass/Vol] 123 mg/dL Normal [facility] Comment on above: Performed By: #### H A1C #### [facility] ([facility]) [address] [place] [address] VIR HbA1c (Bld) [Mass fraction] 5.9 % High 4.4-5.6 [facility] Comment on above: Result Comment: ADA Guidelines Result HgbA1c Normal : less than 5.7 % Prediabetes : 5.7 % to 6.4 % Diabetes : > 6.4 % Use with caution in patients with abnormal hemoglobin variants as the half-life of red blood cells and in vivo glycation rates are affected. Performed By: #### H A1C #### [facility] ([facility]) [address] [place] [address] VIR INSULINon 03-05-2025 INSULIN 19.48 uIU/mL Normal 1.00-23.00 [facility] Comment on above: Order Comment: Ref. range is for FASTING NON-DIABETIC POPULATION. Performed By: #### I NSL #### [facility] ([facility]) [address] [place] [address] VIR IRON AND TIBCon 03-05-2025 Iron [Mass/Vol] 48 ug/dL Low 50-170 [facility] Comment on above: Performed By: #### F EPR #### [facility] ([facility]) [address] [place] [address] VIR IRON BINDING 515 ug/dL High 250-425 [facility] Comment on above: Performed By: #### F EPR #### [facility] ([facility]) [address] [place] [address] VIR IRON SATURATION 9 % SATURATION Low 15-50 [facility] Comment on above: Performed By: #### F EPR #### [facility] ([facility]) [address] [place] [address] VIR Transferrin [Mass/Vol] 368 mg/dL High 168-336 [facility] Comment on above: Performed By: #### F EPR #### [facility] ([facility]) [address] [place] [address] VIR LIPID PROFILEon 03-05-2025 Cholesterol [Mass/Vol] 186 mg/dL Normal 150-200 [facility] Comment on above: Performed By: #### L IPR #### [facility] ([facility]) [address] [place] [address] VIR Cholesterol in HDL [Mass/Vol] 43 mg/dL Normal >39 [facility] Comment on above: Result Comment: HDL <40 mg/dL - High Risk HDL > or = 40mg/dL- Desirable HDL >60 mg/dL - Negative Risk Performed By: #### L IPR #### [facility] ([facility]) [address] [place] [address] VIR Cholesterol in LDL [Mass/Vol] 100 mg/dL Normal <130 [facility] Comment on above: Result Comment: LDL <100 mg/dL - Desirable LDL >160 mg/dL - High Risk Performed By: #### L IPR #### [facility] ([facility]) [address] [place] [address] VIR CHOLESTEROL:HDL 4.3 Normal 1.0-5.0 [facility] Comment on above: Performed By: #### L IPR #### [facility] ([facility]) [address] [place] [address] VIR Triglyceride [Mass/Vol] 217 mg/dL High 27-150 [facility] Comment on above: Performed By: #### L IPR #### [facility] ([facility]) [address] [place] [address] VIR VERY LOW LIPOPROTEIN 43 mg/dL High 0-30 [facility] Comment on above: Performed By: #### L IPR #### [facility] ([facility]) [address] [place] [address] VIR THYROID PROFILE INCLUDES TSH FT4on 03-05-2025 Free T4 [Mass/Vol] 0.93 ng/dL Normal 0.61-1.60 [facility] Comment on above: Performed By: #### T HYR #### [facility] ([facility]) [address] [place], [place] [address]E. [place] [address] VIR TSH 2.21 uIU/mL Normal 0.49-4.67 [facility] Comment on above: Performed By: #### T HYR #### [facility] ([facility]) [address] [address] VIR VITAMIN D 25 HYDROXYon 03-05 VITAMIN D 25 HYD TOT 35.4 ng/mL Normal 30.0-100.0 [facility] Comment on above: Order Comment: Vitam in D status 25 [place] Vitamin D Deficiency <20 ng/mL Insufficiency 20-29 ng/mL Sufficiency 30-100 ng/mL Toxicity >100 ng/mL NOTE: A pediatric reference range has not been established by the technical spec of this kit. The [place] [employer] recommends a Vitamin D level of = or >20ng/mL in infants and children. Performed By: #### V ITD #### [facility] ([facility]) [address] [place] [address] VIR CULTURE URINEon 01-22-2023 CULTURE URINE Culture Observations : NO GROWTH. Normal [facility] Comment on above: Performed By: #### U A #### [facility] [address] [place] [address] Dr. Noreen Castro UA RANDOM W/MICROSCOPICon BACTERIA NONE SEEN Normal NONE SEEN [facility] Comment on above: Performed By: #### U AMIC #### [facility] [address] [address] [address] Noreen Castro Bilirubin Ql (U) Negative Normal NEGATIVE [facility] Comment on above: Performed By: #### U AMIC #### [facility] [address] [address] [address] Noreen Castro CAST NONE SEEN Normal NONE SEEN [facility] Comment on above: Performed By: #### U AMIC #### [facility] [address] [address] [address] Noreen Castro Clarity (U) SL CLOUDY Abnormal CLEAR [facility] Comment on above: Performed By: #### U AMIC #### [facility] [address] [address] [address] Noreen Castro Color (U) LT. YELLOW Normal YELLOW [facility] Comment on above: Performed By: #### U AMIC #### [facility] [address] [address] [address] Noreen Castro Crystals LM Nom (Urine sed) NONE SEEN Normal NONE SEEN [facility] Comment on above: Performed By: #### U AMIC #### [facility] [address] [address] [address] Noreen Castro Epithelial cells LM Ql (Urine sed) FEW Abnormal NONE SEEN /RARE [facility] Comment on above: Performed By: #### U AMIC #### [facility] [address] [place] [address] Dr. Noreen Castro Glucose Ql (U) Negative Normal NEGATIVE [facility] Comment on above: Performed By: #### U AMIC #### [facility] [address] [address] [address] Noreen Castro Hemoglobin Ql (U) Negative Normal NEGATIVE [facility] Comment on above: Performed By: #### U AMIC #### [facility] [address] [address] [address] Noreen Castro Ketones Ql (U) Negative Normal NEGATIVE [facility] Comment on above: Performed By: #### U AMIC #### [facility] [address] [address] [address] Noreen Castro LEUKOCYTES Negative Normal NEGATIVE [facility] Comment on above: Performed By: #### U AMIC #### [facility] [address] [address] [address] Noreen Castro MUCOUS NONE SEEN Normal NONE SEEN [facility] Comment on above: Performed By: #### U AMIC #### [facility] [address] [address] [address] Noreen Castro Nitrite Ql (U) Negative Normal NEGATIVE [facility] Comment on above: Performed By: #### U AMIC #### [facility] [address] [place] [address] Dr. Noreen Castro pH (U) 6.0 [pH] Normal 5-9 [facility] Comment on above: Performed By: #### U AMIC #### [facility] [address] [place] [address] Dr. Noreen Castro RBC NONE SEEN Abnormal 0-2 [facility] Comment on above: Performed By: #### U AMIC #### [facility] [address] [place] [address] Dr. Noreen Castro SPEC GRAVITY 1.015 Normal 1.005-<=1.02 5 [facility] Comment on above: Performed By: #### U AMIC #### [facility] [address] [place] [address] Dr. Noreen Castro UA PROTEIN TRACE Normal NEGATIVE/ TRACE [facility] Comment on above: Performed By: #### U AMIC #### [facility] [address] [place] [address] Dr. Noreen Castro Urobilinogen Qn (U) 0.2 {Scarlett'U}/dL Normal 0.2 - 1.0 [facility] Comment on above: Performed By: #### U AMIC #### [facility] [address] [place] [address] Dr. Noreen Castro WBC 0-2 Abnormal NONE SEEN [facility] Comment on above: Performed By: #### U AMIC #### [facility] [address] [place] [address] Dr. Noreen Castro BILIRUBIN CONJUGATED (DIRECT )on 11-16-2022 BILI, CONJUGATED 0.1 mg/dL Normal 0.0-0.2 [facility] Comment on above: Performed By: #### D NATASHA, CMP #### [facility] [address] [place] [address] Dr. Noreen Castro CBC AUTO DIFFon 11-16-2022 BASO # 0.1 103/ul Normal 0.0-0.1 [facility] Comment on above: Performed By: #### C BC #### [facility] [address] [place] [address] Dr. Noreen Castro Basophils/100 WBC (Bld) 0.6 % Normal 0.2-2.0 [facility] Comment on above: Performed By: #### C BC #### [facility] [address] [place] [address] Dr. Noreen Castro EO # 0.2 103/ul Normal 0.0-0.7 [facility] Comment on above: Performed By: #### C BC #### [facility] [address] [place] [address] Dr. Noreen Castro Eosinophils/100 WBC (Bld) 1.8 % Normal 0.9-7.0 [facility] Comment on above: Performed By: #### C BC #### [facility] [address] [place] [address] Dr. Noreen Castro Erythrocyte distribution width (RBC) [Ratio] 14.1 % Normal 11.0-15.0 [facility] Comment on above: Performed By: #### C BC #### [facility] [address] [place] [address] Dr. Noreen Castro Hematocrit (Bld) [Volume fraction] 35.0 % Critically low 36.0-48.0 [facility] Comment on above: Performed By: #### C BC #### [facility] [address] [place] [address] Dr. Noreen Castro Hemoglobin (Bld) [Mass/Vol] 12.0 g/dL Normal 12.0-16.0 [facility] Comment on above: Performed By: #### C BC #### [facility] [address] [place] [address] Dr. Noreen Castro IG # 0.07 10e3/ul Critically high 0.00-0.03 [facility] Comment on above: Performed By: #### C BC #### [facility] [address] [place] [address] Dr. Noreen Castro IG % 0.7 % Critically high 0.0-0.5 [facility] Comment on above: Performed By: #### C BC #### [facility] [address] [place] [address] Dr. Noreen Castro LYMPH # 2.8 103/ul Normal 1.2-3.8 [facility] Comment on above: Performed By: #### C BC #### [facility] [address] [place] [address] Dr. Noreen Castro Lymphocytes/100 WBC (Bld) 27.1 % Normal 20.5-60.0 [facility] Comment on above: Performed By: #### C BC #### [facility] [address] [place] [address] Dr. Noreen Castro MANUAL DIFF REQ NO Normal [facility] Comment on above: Performed By: #### C BC #### [facility] [address] [place] [address] Dr. Noreen Castro MCH (RBC) [Entitic mass] 31.1 pg Normal 26.7-34.0 [facility] Comment on above: Performed By: #### C BC #### [facility] [address] [place] [address] Dr. Noreen Castro MCHC (RBC) [Mass/Vol] 34.3 g/dL Normal 29.9-35.2 [facility] Comment on above: Performed By: #### C BC #### [facility] [address] [place] [address] Dr. Noreen Castro MCV (RBC) [Entitic vol] 90.7 fL Normal 81.0-99.0 [facility] Comment on above: Performed By: #### C BC #### [facility] [address] [place] [address] Dr. Noreen Castro MONO # 0.8 103/ul Normal 0.3-0.8 [facility] Comment on above: Performed By: #### C BC #### [facility] [address] [place] [address] Dr. Noreen Castro Monocytes/100 WBC (Bld) 8.0 % Normal 1.7-12.0 [facility] Comment on above: Performed By: #### C BC #### [facility] [address] [place] [address] Dr. Noreen Castro NEUT # 6.3 103/ul Normal 1.4-6.5 [facility] Comment on above: Performed By: #### C BC #### [facility] [address] [address] [address] Noreen Castro Neutrophils/100 WBC (Bld) 61.8 % Normal 43.0-75.0 [facility] Comment on above: Performed By: #### C BC #### [facility] [address] [address] [address] Noreen Castro Platelet mean volume (Bld) [Entitic vol] 9.6 fL Normal 9.5-13.5 [facility] Comment on above: Performed By: #### C BC #### [facility] [address] [place] [address] Dr. Noreen Castro PLT 210 103/ul Normal 150-450 [facility] Comment on above: Performed By: #### C BC #### [facility] [address] [place] [address] Dr. Noreen Castro RBC 3.86 106/ul Critically low 4.20-5.40 [facility] Comment on above: Performed By: #### C BC #### [facility] [address] [place] [address] Dr. Noreen Castro WBC 10.1 103/ul Normal 4.0-11.0 [facility] Comment on above: Performed By: #### C BC #### [facility] [address] [place] [address] Dr. Noreen Castro PROF 14(COMP METB)on 023 Albumin [Mass/Vol] 3.8 g/dL Normal 3.4-5.0 [facility] Comment on above: Performed By: #### D NATASHA, CMP #### [facility] [address] [place] [address] Dr. Noreen Castro Albumin/Globulin [Mass ratio] 1.1 {ratio} Normal [facility] Comment on above: Performed By: #### D NATASHA, CMP #### [facility] [address] [address] [address] Noreen Castro ALP [Catalytic activity/Vol] 76 U/L Normal 46-116 [facility] Comment on above: Performed By: #### D NATASHA, CMP #### [facility] [address] [address] [address] Noreen Castro ALT [Catalytic activity/Vol] 15 U/L Normal 14-59 [facility] Comment on above: Performed By: #### D NATASHA, CMP #### [facility] [address] [address] [address] Noreen Castro Anion gap [Moles/Vol] 12.7 mmol/L Normal [facility] Comment on above: Performed By: #### D NATASHA, CMP #### [facility] [address] [address] [address] Noreen Castro AST [Catalytic activity/Vol] 19 U/L Normal 15-37 [facility] Comment on above: Performed By: #### D NATASHA, CMP #### [facility] [address] [address] [address] Noreen Castro Bilirubin [Mass/Vol] 0.3 mg/dL Normal 0.2-1.0 [facility] Comment on above: Performed By: #### D NATASHA, CMP #### [facility] [address] [address] [address] Noreen Castro Calcium [Mass/Vol] 9.6 mg/dL Normal 8.5-10.1 [facility] Comment on above: Performed By: #### D NATASHA, CMP #### [facility] [address] [address] [address] Noreen Castro Chloride [Moles/Vol] 100 mmol/L Normal 98-107 [facility] Comment on above: Performed By: #### D NATASHA, CMP #### [facility] [address] [address] [address] Noreen Castro CO2 [Moles/Vol] 29.4 mmol/L Normal 21.0-32.0 [facility] Comment on above: Performed By: #### D NATASHA, CMP #### [facility] [address] [address] [address] Noreen Castro Creatinine [Mass/Vol] 2.18 mg/dL Critically high 0.55-1.02 [facility] Comment on above: Performed By: #### D NATASHA, CMP #### [facility] [address] [address] [address] Noreen Castro EGFR-AF ARMENIAN 26 mL/min/1.73m2 Critically low >=60 [facility] Comment on above: Performed By: #### D NATASHA, CMP #### [facility] [address] [address] [address] Noreen Castro EGFR-NON AF ARMENIAN 22 mL/min/1.73m2 Critically low >=60 [facility] Comment on above: Performed By: #### D NATASHA, CMP #### [facility] [address] [place] [address] Dr. Noreen Castro Globulin (S) [Mass/Vol] 3.6 g/dL Normal [facility] Comment on above: Performed By: #### D NATASHA, CMP #### [facility] [address] [place] [address] Dr. Noreen Castro Glucose [Mass/Vol] 89 mg/dL Normal 74-106 [facility] Comment on above: Performed By: #### D NATASHA, CMP #### [facility] [address] [place] [address] Dr. Noreen Castro Potassium [Moles/Vol] 5.1 mmol/L Normal 3.5-5.1 [facility] Comment on above: Performed By: #### D NATASHA, CMP #### [facility] [address] [place] [address] Dr. Noreen Castro Protein [Mass/Vol] 7.4 g/dL Normal 6.4-8.2 [facility] Comment on above: Performed By: #### D NATASHA, CMP #### [facility] [address] [place] [address] Dr. Noreen Castro Sodium [Moles/Vol] 137 mmol/L Normal 136-145 [facility] Comment on above: Performed By: #### D NATASHA, CMP #### [facility] [address] [place] [address] Dr. Noreen Castro Urea nitrogen [Mass/Vol] 27.0 mg/dL Critically high 7.0-18.0 [facility] Comment on above: Performed By: #### D NATASHA, CMP #### [facility] [address] [address] [address] Noreen Castro Urea nitrogen/Creatinin e [Mass ratio] 12.4 mg/mg Normal [facility] Comment on above: Performed By: #### D NATASHA, CMP #### [facility] [address] [address] [address] Noreen Castro Provider Orderson 08-31-2022 Provider Orders [id number] [facility] C Urineon 08-30-2022 C Urine <10,000 cfu/ml [facility] Comment on above: Performed By: #### [id number] #### [facility] (DEFAULT) [address] [place] [address] 38333 UA Standardon 08-28-2022 Breakpoint [facility]A [facility] Comment on above: Performed By: #### 1 [id number] #### [facility] (DEFAULT) [address] [place] [address] 53317 Color (U) Yellow [facility] Comment on above: Performed By: #### 1 [id number] #### [facility] (DEFAULT) [address] [place] [address] Glucose (U) [Mass/Vol] Negative [facility] Comment on above: Performed By: #### 1 [id number] #### [facility] (DEFAULT) [address] [place] [address]239 Ketones Ql (U) Negative [facility] Comment on above: Performed By: #### 1 [id number] #### [facility] (DEFAULT) [address] [place] [address] 77553 UA Bilirubin Negative [facility] Comment on above: Performed By: #### 1 [id number] #### [facility] (DEFAULT) [address] [place] [address] 28795 UA Blood Negative Normal [facility] Comment on above: Performed By: #### 1 [id number] #### [facility] (DEFAULT) [address] [place] [address] 57839 UA Clarity CLEAR Normal CLEAR [facility] Comment on above: Performed By: #### 1 [id number] #### [facility] (DEFAULT) [address] [place] [address] 90436 UA Leuk Est TRACE Abnormal NEGATIVE [facility] Comment on above: Performed By: #### 1 [id number] #### [facility] (DEFAULT) [address] [place] [address] 96369 UA Nitrite Negative Normal NEGATIVE [facility] Comment on above: Performed By: #### 1 [id number] #### [facility] (DEFAULT) [address] [place] [address] 14943 UA pH 6.0 Normal 5-8 [facility] Comment on above: Performed By: #### 1 [id number] #### [facility] (DEFAULT) [address] [place] [address] 48721 UA Protein TRACE Abnormal NEGATIVE [facility] Comment on above: Performed By: #### 1 [id number] #### [facility] (DEFAULT) [address] [place] [address] 70201 UA Spec Grav 1.020 Normal 1.001-1.035 [facility] Comment on above: Performed By: #### 1 [id number] #### [facility] (DEFAULT) [address] [place] [address] 20773 UA Urobilinogen 0.2 mg/dL Normal 0.2-1.0 [facility] Comment on above: Performed By: #### 1 [id number] #### [facility] (DEFAULT) [address] [place] [address] 13569 Urine Source Clean Catch Normal [facility] Comment on above: Performed By: #### 1 [id number] #### [facility] (DEFAULT) [address] [place] [address] 82481 BILIRUBIN CONJUGATED (DIRECT )on 02-11-2022 BILI, CONJUGATED 0.1 mg/dL Normal 0.0-0.3 [facility] Comment on above: Performed By: #### C MP DBIL #### [facility] [address] [address] [address] Noreen Castro CBC AUTO DIFFon 02-11-2022 BASO # 0.1 103/ul Normal 0.0-0.1 [facility] Comment on above: Performed By: #### U A #### [facility] [address] [place] [address] Dr. Noreen Castro Basophils/100 WBC (Bld) 0.6 % Normal 0.2-2.0 [facility] Comment on above: Performed By: #### U A #### [facility] [address] [place] [address] Dr. Noreen Castro EO # 0.2 103/ul Normal 0.0-0.7 [facility] Comment on above: Performed By: #### U A #### [facility] [address] [place] [address] Dr. Noreen Castro Eosinophils/100 WBC (Bld) 1.2 % Normal 0.9-7.0 [facility] Comment on above: Performed By: #### U A #### [facility] [address] [place] [address] Dr. Noreen Castro Erythrocyte distribution width (RBC) [Ratio] 14.4 % Normal 11.0-15.0 [facility] Comment on above: Performed By: #### U A #### [facility] [address] [place] [address] Dr. Noreen Castro Hematocrit (Bld) [Volume fraction] 39.0 % Normal 36.0-48.0 [facility] Comment on above: Performed By: #### U A #### [facility] [address] [place] [address] Dr. Noreen Castro Hemoglobin (Bld) [Mass/Vol] 12.3 g/dL Normal 12.0-16.0 [facility] Comment on above: Performed By: #### U A #### [facility] [address] [place] [address] Dr. Noreen Castro IG # 0.20 10e3/ul Critically high 0.00-0.03 [facility] Comment on above: Performed By: #### U A #### [facility] [address] [place] [address] Dr. Noreen Castro IG % 1.4 % Critically high 0.0-0.5 [facility] Comment on above: Performed By: #### U A #### [facility] [address] [place] [address] Dr. Noreen Castro LYMPH # 4.4 103/ul Critically high 1.2-3.8 [facility] Comment on above: Performed By: #### U A #### [facility] [address] [place] [address] Dr. Noreen Castro Lymphocytes/100 WBC (Bld) 30.4 % Normal 20.5-60.0 [facility] Comment on above: Performed By: #### U A #### [facility] [address] [place] [address] Dr. Noreen Castro MANUAL DIFF REQ NO Normal [facility] Comment on above: Performed By: #### U A #### [facility] [address] [place] [address] Dr. Noreen Castro MCH (RBC) [Entitic mass] 30.8 pg Normal 26.7-34.0 [facility] Comment on above: Performed By: #### U A #### [facility] [address] [place] [address] Dr. Noreen Castro MCHC (RBC) [Mass/Vol] 31.5 g/dL Normal 29.9-35.2 [facility] Comment on above: Performed By: #### U A #### [facility] [address] [place] [address] Dr. Noreen Castro MCV (RBC) [Entitic vol] 97.5 fL Normal 81.0-99.0 [facility] Comment on above: Performed By: #### U A #### [facility] [address] [place] [address] Dr. Noreen Castro MONO # 1.0 103/ul Critically high 0.3-0.8 [facility] Comment on above: Performed By: #### U A #### [facility] [address] [address] [address] Noreen Castro Monocytes/100 WBC (Bld) 6.8 % Normal 1.7-12.0 [facility] Comment on above: Performed By: #### U A #### [facility] [address] [address] [address] Noreen Castro NEUT # 8.6 103/ul Critically high 1.4-6.5 [facility] Comment on above: Performed By: #### U A #### [facility] [address] [address] [address] Noreen Castro Neutrophils/100 WBC (Bld) 59.6 % Normal 43.0-75.0 [facility] Comment on above: Performed By: #### U A #### [facility] [address] [place] [address] Dr. Noreen Castro Platelet mean volume (Bld) [Entitic vol] 9.9 fL Normal 9.5-13.5 [facility] Comment on above: Performed By: #### U A #### [facility] [address] [place] [address] Dr. Noreen Castro PLT 283 103/ul Normal 150-450 [facility] Comment on above: Performed By: #### U A #### [facility] [address] [place] [address] Dr. Noreen Castro RBC 4.00 106/ul Critically low 4.20-5.40 [facility] Comment on above: Performed By: #### U A #### [facility] [address] [place] [address] Dr. Noreen Castro WBC 14.5 103/ul Critically high 4.0-11.0 [facility] Comment on above: Performed By: #### U A #### [facility] [address] [place] [address] Dr. Noreen Castro CULTURE URINEon 02-11-2022 CULTURE [...] Trimethoprim/Sulfamethoxaz ole >=320 R F Normal [facility] Comment on above: Performed By: #### U RCX #### [facility] [address] [place] [address] Dr. Noreen Castro DRUG SCREEN RAPID (URINE)on 02-11-2022 AMP Negative Normal NEGATIVE [facility] Comment on above: Performed By: #### U A #### [facility] [address] [place] [address] Dr. Noreen Castro BAR Negative Normal NEGATIVE [facility] Comment on above: Performed By: #### U A #### [facility] [address] [place] [address] Dr. Noreen Castro BUP Negative Normal NEGATIVE [facility] Comment on above: Performed By: #### U A #### [facility] [address] [place] [address] Dr. Noreen Castro BZO Negative Normal NEGATIVE [facility] Comment on above: Performed By: #### U A #### [facility] [address] [place] [address] Dr. Noreen Castro VERONICA Negative Normal NEGATIVE [facility] Comment on above: Performed By: #### U A #### [facility] [address] [place] [address] Dr. Noreen Castro CUT-OFFS SEE BELOW Normal [facility] Comment on above: Result Comment: AMP (Amphetamine): 500ng/mL, BAR (Barbituates): 200 ng/mL, BZO (Benzodiazepines): 150 ng/mL, BUP (Buprenorphine): 10 ng/mL, VERONICA (Cocaine): 150 ng/mL, mAMP (Methamphetamine): 500 ng/mL, MTD (Methadone): 200 ng/mL, OPI (Opiates): 100 ng/mL, OXY (Oxycodone): 100 ng/mL, PCP (Phencyclidine): 25 ng/mL, PPX (Propoxyphene): 300 ng/mL, THC (Cannabinoids): 50 ng/mL, TCA (Trycyclic Antidepressants): 300 ng/mL Performed By: #### U A #### [facility] [address] [place] [address] Dr. Noreen Castro DRUG CUT HEADER DRUG CLASS TEST SYST EM CUT-OFF CONCENTRATIONS ARE FOLLOWS: Normal [facility] Comment on above: Performed By: #### U A #### [facility] [address] [place] [address] Dr. Noreen Castro mAMP Negative Normal NEGATIVE [facility] Comment on above: Performed By: #### U A #### [facility] [address] [place] [address] Dr. Noreen Castro MTD Negative Normal NEGATIVE [facility] [facility] Comment on above: Performed By: #### U A #### [facility] [address] [place] [address] Dr. Noreen Castro OPI Negative Normal NEGATIVE [facility] Comment on above: Performed By: #### U A #### [facility] [address] [place] [address] Dr. Noreen Castro OXY Negative Normal NEGATIVE [facility] Comment on above: Performed By: #### U A #### [facility] [address] [place] [address] Dr. Noreen Castro PCP Negative Normal NEGATIVE [facility] Comment on above: Performed By: #### U A #### [facility] [address] [place] [address] Dr. Noreen Castro PPX Negative Normal NEGATIVE [facility] Comment on above: Performed By: #### U A #### [facility] [address] [place] [address] Dr. Noreen Castro TCA Positive Abnormal NEGATIVE [facility] Comment on above: Performed By: #### U A #### [facility] [address] [place] [address] Dr. Noreen Castro THC Negative Normal NEGATIVE [facility] Comment on above: Performed By: #### U A #### [facility] [address] [address] [address] Noreen Castro PROF 14(COMP METB)on 022 Albumin [Mass/Vol] 3.9 g/dL Normal 3.4-5.0 [facility] Comment on above: Performed By: #### C MP, DBIL #### [facility] [address] [place] [address] Dr. Noreen Castro Albumin/Globulin [Mass ratio] 0.9 {ratio} Normal [facility] Comment on above: Performed By: #### C MP, DBIL #### [facility] [address] [place] [address] Dr. Noreen Castro ALP [Catalytic activity/Vol] 76 U/L Normal 46-116 [facility] Comment on above: Performed By: #### C MP, DBIL #### [facility] [address] [place] [address] Dr. Noreen Castro ALT [Catalytic activity/Vol] 39 U/L Normal 14-59 [facility] Comment on above: Performed By: #### C MP, DBIL #### [facility] [address] [place] [address] Dr. Noreen Castro Anion gap [Moles/Vol] 18.4 mmol/L Normal [facility] Comment on above: Performed By: #### C MP, DBIL #### [facility] [address] [place] [address] Dr. Noreen Castro AST [Catalytic activity/Vol] 30 U/L Normal 15-37 [facility] Comment on above: Performed By: #### C MP, DBIL #### [facility] [address] [place] [address] Dr. Noreen Castro Bilirubin [Mass/Vol] 0.4 mg/dL Normal 0.2-1.3 [facility] Comment on above: Performed By: #### C MP, DBIL #### [facility] [address] [place] [address] Dr. Noreen Castro Calcium [Mass/Vol] 9.2 mg/dL Normal 8.5-10.1 [facility] Comment on above: Performed By: #### C MP, DBIL #### [facility] [address] [place] [address] Dr. Noreen Castro Chloride [Moles/Vol] 99 mmol/L Normal 98-107 [facility] Comment on above: Performed By: #### C MP, DBIL #### [facility] [address] [place] [address] Dr. Noreen Castro CO2 [Moles/Vol] 22.2 mmol/L Normal 22.0-30.0 [facility] Comment on above: Performed By: #### C MP, DBIL #### [facility] [address] [place] [address] Dr. Noreen Castro Creatinine [Mass/Vol] 2.72 mg/dL Critically high 0.52-1.04 [facility] Comment on above: Performed By: #### C MP, DBIL #### [facility] [address] [place] [address] Dr. Noreen Castro EGFR-AF ARMENIAN 20 mL/min/1.73m2 Critically low >=60 [facility] Comment on above: Performed By: #### C MP, DBIL #### [facility] [address] [place] [address] Dr. Noreen Castro EGFR-NON AF ARMENIAN 17 mL/min/1.73m2 Critically low >=60 [facility] Comment on above: Performed By: #### C MP, DBIL #### [facility] [address] [place] [address] Dr. Noreen Castro Globulin (S) [Mass/Vol] 4.3 g/dL Normal [facility] Comment on above: Performed By: #### C MP, DBIL #### [facility] [address] [place] [address] Dr. Noreen Castro Glucose [Mass/Vol] 143 mg/dL Critically high 74-106 T [facility] Comment on above: Performed By: #### C MP, DBIL #### [facility] [address] [place] [address] Dr. Noreen Castro Potassium [Moles/Vol] 5.6 mmol/L Critically high 3.4-5.0 [facility] Comment on above: Performed By: #### C MP, DBIL #### [facility] [address] [place] [address] Dr. Noreen Castro Protein [Mass/Vol] 8.2 g/dL Normal 6.1-8.2 [facility] Comment on above: Performed By: #### C MP, DBIL #### [facility] [address] [place] [address] Dr. Noreen Castro Sodium [Moles/Vol] 134 mmol/L Critically low 137-145 Th [facility] Comment on above: Performed By: #### C MP, DBIL #### [facility] [address] [place] [address] Dr. Noreen Castro Urea nitrogen [Mass/Vol] 36.0 mg/dL Critically high 7.0-18.0 [facility] Comment on above: Performed By: #### C MP, DBIL #### [facility] [address] [place] [address] Dr. Noreen Castro Urea nitrogen/Creatinin e [Mass ratio] 13.2 mg/mg Normal [facility] Comment on above: Performed By: #### C MP, DBIL #### [facility] [address] [place] [address] Dr. Noreen Castro UA RANDOMon 02-08-2022 Bilirubin Ql (U) Negative Normal NEGATIVE [facility] Comment on above: Performed By: #### U A #### [facility] [address] [place] [address] Dr. Noreen Castro Clarity (U) SL CLOUDY Abnormal CLEAR [facility] Comment on above: Performed By: #### U A #### [facility] [address] [place] [address] Dr. Noreen Castro Color (U) LT. YELLOW Normal YELLOW [facility] Comment on above: Performed By: #### U A #### [facility] [address] [place] [address] Dr. Noreen Castro Glucose Ql (U) Negative Normal NEGATIVE [facility] Comment on above: Performed By: #### U A #### [facility] [address] [place] [address] Dr. Noreen Castro Hemoglobin Ql (U) TRACE-INTACT Abnormal NEGATIVE [facility] Comment on above: Performed By: #### U A #### [facility] [address] [place] [address] Dr. Noreen Castro Ketones Ql (U) Negative Normal NEGATIVE [facility] Comment on above: Performed By: #### U A #### [facility] [address] [place] [address] Dr. Noreen Castro LEUKOCYTES MODERATE Abnormal NEGATIVE [facility] Comment on above: Performed By: #### U A #### [facility] [address] [place] [address] Dr. Noreen Castro Nitrite Ql (U) Positive Abnormal NEGATIVE [facility] Comment on above: Performed By: #### U A #### [facility] [address] [place] [address] Dr. Noreen Castro pH (U) 5.0 [pH] Normal 5-9 [facility] Comment on above: Performed By: #### U A #### [facility] [address] [place] [address] Dr. Noreen Castro SPEC GRAVITY 1.020 Normal 1.005-<=1.02 5 [facility] Comment on above: Performed By: #### U A #### [facility] [address] [place] [address] Dr. Noreen Castro UA PROTEIN TRACE Normal NEGATIVE/ TRACE [facility] Comment on above: Performed By: #### U A #### [facility] [address] [place] [address] Dr. Noreen Castro Urobilinogen Qn (U) 0.2 {Scarlett'U}/dL Normal 0.2 - 1.0 [facility] Comment on above: Performed By: #### U A #### [facility] [address] [place] [address] Dr. Noreen Castro CULTURE URINEon 02-01-2022 CULTURE URINE Culture Observations : No growth Normal [facility] Comment on above: Performed By: #### U RCX #### [facility] [address] [place] [address] Dr. Noreen Castro UA RANDOMon 02-01-2022 Bilirubin Ql (U) Negative Normal NEGATIVE [facility] Comment on above: Performed By: #### U A #### [facility] [address] [place] [address] Dr. Noreen Castro Clarity (U) CLEAR Normal CLEAR [facility] Comment on above: Performed By: #### U A #### [facility] [address] [place] [address] Dr. Noreen Castro Color (U) YELLOW Normal YELLOW [facility] Comment on above: Performed By: #### U A #### [facility] [address] [place] [address] Dr. Noreen Castro Glucose Ql (U) Negative Normal NEGATIVE [facility] Comment on above: Performed By: #### U A #### [facility] [address] [place] [address] Dr. Noreen Castro Hemoglobin Ql (U) SMALL Abnormal NEGATIVE [facility] Comment on above: Performed By: #### U A #### [facility] [address] [place] [address] Dr. Noreen Castro Ketones Ql (U) Negative Normal NEGATIVE [facility] Comment on above: Performed By: #### U A #### [facility] [address] [place] [address] Dr. Noreen Castro LEUKOCYTES Negative Normal NEGATIVE [facility] Comment on above: Performed By: #### U A #### [facility] [address] [place] [address] Dr. Noreen Castro Nitrite Ql (U) Negative Normal NEGATIVE [facility] Comment on above: Performed By: #### U A #### [facility] [address] [place] [address] Dr. Noreen Castro pH (U) 5.0 [pH] Normal 5-9 [facility] Comment on above: Performed By: #### U A #### [facility] [address] [address] [address] Noreen Castro SPEC GRAVITY 1.025 Normal 1.005-<=1.02 5 [facility] Comment on above: Performed By: #### U A #### [facility] [address] [address] [address] Noreen Castro UA PROTEIN Negative Normal NEGATIVE/ TRACE [facility] Comment on above: Performed By: #### U A #### [facility] [address] [address] [address] Noreen Castro Urobilinogen Qn (U) 0.2 {Scarlett'U}/dL Normal 0.2 - 1.0 [facility] Comment on above: Performed By: #### U A #### [facility] [address] [address] [address] Noreen Castro POC GLUCOSE LABon 07-19-2018 Glucose mass conc 97 mg/dL Normal 70-100 [facility] Comment on above: Performed By: #### 0 0121 ####[facility] [facility] [place] [address], [facility] Glucose mass conc 110 mg/dL High 70-100 [facility] Comment on above: Performed By: #### 0 0121 ####[facility] [facility] [place] [address], [facility] Glucose mass conc 93 mg/dL Normal 70-100 [facility] Comment on above: Performed By: #### 0 0121 ####[facility] [facility] [place] [address], [facility] Glucose mass conc 92 mg/dL Normal 70-100 [facility] Comment on above: Performed By: #### 0 0121 ####[facility] [facility] [place] [address], [facility] CBC COMPLETE BLOOD COUNTon 0 07-18-2018 Erythrocyte distribution width Auto Ratio (RBC) 14.0 % Normal 11.5-15.0 [facility] Comment on above: Order Comment: No: D o not add to previous draw Performed By: #### 0 0121 ####[facility] Hematocrit Auto Volume Fraction (Bld) 32.3 % Low 36.0-45.0 [facility] Comment on above: Order Comment: No: D o not add to previous draw Performed By: #### 0 0121 ####[facility] Hemoglobin mass conc (Bld) 10.1 g/dL Low 12.0-15.0 [facility] Comment on above: Order Comment: No: D o not add to previous draw Performed By: #### 0 0121 ####[facility] MCH Auto Entitic mass (RBC) 29.6 pg Normal 27.0-33.0 [facility] Comment on above: Order Comment: No: D o not add to previous draw Performed By: #### 0 0121 ####[facility] MCHC Auto mass conc (RBC) 31.3 g/dL Low 32.0-35.0 [facility] Comment on above: Order Comment: No: D o not add to previous draw Performed By: #### 0 0121 ####[facility] MCV Auto Entitic volume (RBC) 94.7 fL Normal 82.0-98.0 [facility] Comment on above: Order Comment: No: D o not add to previous draw Performed By: #### 0 0121 ####[facility] Nucleated RBC/100 WBC Ratio (Bld) 0 % Normal 0-0 [facility] Comment on above: Order Comment: No: D o not add to previous draw Performed By: #### 0 0121 ####[facility] [place] [address], [facility] PLAT CNT 372 10*3/uL Normal 150-400 [facility] Comment on above: Order Comment: No: D o not add to previous draw Performed By: #### 0 0121 ####[facility] [place] [address], [facility] RBC Auto #/vol (Bld) 3.41 10*6/uL Low 3.80-5.00 [facility] Comment on above: Order Comment: No: D o not add to previous draw Performed By: #### 0 0121 ####[facility] [place] [address], [facility] WBC Auto #/vol (Bld) 8.69 10*3/uL Normal 4.00-10.60 [facility] Comment on above: Order Comment: No: D o not add to previous draw Performed By: #### 0 0121 ####[facility] [place] [address], [facility] POC GLUCOSE LABon 07-18-2018 Glucose mass conc 101 mg/dL High 70-100 [facility] Comment on above: Performed By: #### 0 0121 ####[facility] [place] [address], [facility] Glucose mass conc 117 mg/dL High 70-100 [facility] Comment on above: Performed By: #### 0 0121 ####[facility] [place] [address], [facility] Glucose mass conc 94 mg/dL Normal 70-100 [facility] Comment on above: Performed By: #### 0 0121 ####[facility] [address], [facility] Glucose mass conc 92 mg/dL Normal 70-100 [facility] Comment on above: Performed By: #### 0 0121 ####[facility] [address], [facility] POC GLUCOSE LABon 07-17-2018 Glucose mass conc 105 mg/dL High 70-100 [facility] Comment on above: Performed By: #### 0 0121 ####[facility] [place] [address], [facility] Glucose mass conc 126 mg/dL High 70-100 [facility] Comment on above: Performed By: #### 0 0121 ####[facility] [facility] [address], [facility] Glucose mass conc 118 mg/dL High 70-100 [facility] Comment on above: Performed By: #### 0 0121 ####[facility] [facility] [address], [facility] Glucose mass conc 99 mg/dL Normal 70-100 [facility] Comment on above: Performed By: #### 0 0121 ####[facility] [facility] [place] [address], [facility] BASIC METABOLIC PANELon Calcium mass conc 9.4 mg/dL Normal 8.6-10.3 [facility] Comment on above: Order Comment: No: D o not add to previous draw Performed By: #### 0 0121 ####[facility] [place] [address], [facility] Chloride molar conc 104 mmol/L Normal 98-107 [facility] Comment on above: Order Comment: No: D o not add to previous draw Performed By: #### 0 0121 ####[facility] [place] [address], [facility] CO2 molar conc 24 mmol/L Normal 21-31 [facility] Comment on above: Order Comment: No: D o not add to previous draw Performed By: #### 0 0121 ####[facility] [place] [address], [facility] Creatinine mass conc 1.11 mg/dL Normal 0.60-1.20 [facility] Comment on above: Order Comment: No: D o not add to previous draw Performed By: #### 0 0121 ####[facility] [place] [address], [facility] GFR/1.73 sq M predicted among blacks MDRD vol rate/area (S/P/Bld) 57 ml/min/1.73sq m Abnormal >60 [facility] Comment on above: Order Comment: No: D o not add to previous draw Result Comment: Calc ulation may not be valid for patients over 70 years Performed By: #### 0 0121 ####[facility] [place] [address], [facility] GFR/1.73 sq M predicted among non-blacks MDRD vol rate/area (S/P/Bld) 47 ml/min/1.73sq m Abnormal >60 [facility] Comment on above: Order Comment: No: D o not add to previous draw Result Comment: Calc ulation may not be valid for patients over 70 years Performed By: #### 0 0121 ####[facility] [facility] [place] [address], [facility] Glucose mass conc 104 mg/dL High 70-100 [facility] Comment on above: Order Comment: No: D o not add to previous draw Performed By: #### 0 0121 ####[facility] [facility] [place] [address], [facility] Potassium molar conc 4.6 mmol/L Normal 3.5-5.1 [facility] Comment on above: Order Comment: No: D o not add to previous draw Performed By: #### 0 0121 ####[facility] [facility] [place] [address], [place] Sodium molar conc 135 mmol/L Low 136-145 [facility] Comment on above: Order Comment: No: D o not add to previous draw Performed By: #### 0 0121 ####[place] [address] Urea nitrogen mass conc 22 mg/dL Normal 7-25 [facility] Comment on above: Order Comment: No: D o not add to previous draw Performed By: #### 0 0121 ####[facility] CBC W/DIFFon 07-16-2018 ABS BASOPHILS 0.1 10*3/uL Normal 0.0-0.2 [facility] Comment on above: Order Comment: No: D o not add to previous draw Performed By: #### 0 0121 ####[facility] ABS IMM GRANS 0.3 10*3/uL High 0.0-0.2 [facility] Comment on above: Order Comment: No: D o not add to previous draw Performed By: #### 0 0121 ####[place] [address] ABS NEUTROPHILS 6.5 10*3/uL Normal 1.6-7.6 [facility] Comment on above: Order Comment: No: D o not add to previous draw Performed By: #### 0 0121 ####[facility] Basophils Auto #/vol (Bld) 0.6 % Normal 0.0-1.0 [facility] Comment on above: Order Comment: No: D o not add to previous draw Performed By: #### 0 0121 ####[facility] Eosinophils Auto #/vol (Bld) 0.3 10*3/uL Normal 0.0-0.5 [facility] Comment on above: Order Comment: No: D o not add to previous draw Performed By: #### 0 0121 ####[facility] Eosinophils/100 WBC Auto (Bld) 2.5 % Normal 0.0-6.0 [facility] Comment on above: Order Comment: No: D o not add to previous draw Performed By: #### 0 0121 ####[facility] Erythrocyte distribution width Auto Ratio (RBC) 14.4 % Normal 11.5-15.0 [facility] Comment on above: Order Comment: No: D o not add to previous draw Performed By: #### 0 0121 ####[facility] Hematocrit Auto Volume Fraction (Bld) 31.7 % Low 36.0-45.0 [facility] Comment on above: Order Comment: No: D o not add to previous draw Performed By: #### 0 0121 ####[facility] Hemoglobin mass conc (Bld) 10.1 g/dL Low 12.0-15.0 [facility] Comment on above: Order Comment: No: D o not add to previous draw Performed By: #### 0 0121 ####[facility] IMMATURE GRANS 2.8 % High 0.0-1.0 [facility] Comment on above: Order Comment: No: D o not add to previous draw Performed By: #### 0 0121 ####[facility] Lymphocytes Auto #/vol (Bld) 2.4 10*3/uL Normal 1.2-4.0 [facility] Comment on above: Order Comment: No: D o not add to previous draw Performed By: #### 0 0121 ####[facility] Lymphocytes/100 WBC Auto (Bld) 22.1 % Normal 20.0-45.0 [facility] Comment on above: Order Comment: No: D o not add to previous draw Performed By: #### 0 0121 ####[facility] MCH Auto Entitic mass (RBC) 30.3 pg Normal 27.0-33.0 [facility] Comment on above: Order Comment: No: D o not add to previous draw Performed By: #### 0 0121 ####[facility] MCHC Auto mass conc (RBC) 31.9 g/dL Low 32.0-35.0 [facility] Comment on above: Order Comment: No: D o not add to previous draw Performed By: #### 0 0121 ####[place] [address] MCV Auto Entitic volume (RBC) 95.2 fL Normal 82.0-98.0 [facility] Comment on above: Order Comment: No: D o not add to previous draw Performed By: #### 0 0121 ####[facility] Monocytes Auto #/vol (Bld) 1.2 10*3/uL High 0.1-1.0 [facility] Comment on above: Order Comment: No: D o not add to previous draw Performed By: #### 0 0121 ####[facility] MONOS 11.0 % Normal 5.0-12.0 [facility] Comment on above: Order Comment: No: D o not add to previous draw Performed By: #### 0 0121 ####[facility] [address] [address], [facility] Neutrophils/100 WBC Auto (Bld) 61.0 % Normal 40.0-72.0 [facility] Comment on above: Order Comment: No: D o not add to previous draw Performed By: #### 0 0121 ####[facility] [facility].[address] Nucleated RBC/100 WBC Ratio (Bld) 0 % Normal 0-0 [facility] Comment on above: Order Comment: No: D o not add to previous draw Performed By: #### 0 0121 ####[facility] [facility] [place] [address], [facility] PLAT CNT 450 10*3/uL High 150-400 [facility] Comment on above: Order Comment: No: D o not add to previous draw Performed By: #### 0 0121 ####[facility] [facility].[address] RBC Auto #/vol (Bld) 3.33 10*6/uL Low 3.80-5.00 [facility] Comment on above: Order Comment: No: D o not add to previous draw Performed By: #### 0 0121 ####[facility] [address], [facility] WBC Auto #/vol (Bld) 10.68 10*3/uL High 4.00-10.60 [facility] Comment on above: Order Comment: No: D o not add to previous draw Performed By: #### 0 0121 ####[facility] MAGNESIUM BLOODon 07-16-2018 Magnesium mass conc 2.3 mg/dL Normal 1.9-2.7 [facility] Comment on above: Order Comment: No: D o not add to previous draw Performed By: #### 0 0121 ####[facility] [place] [address], [facility] PHOSPHORUS BLOODon 8 Phosphate mass conc 3.6 mg/dL Normal 2.5-5.0 [facility] Comment on above: Order Comment: No: D o not add to previous draw Performed By: #### 0 0121 ####[facility] [place] [address], [facility] POC GLUCOSE LABon 07-16-2018 Glucose mass conc 111 mg/dL High 70-100 [facility] Comment on above: Performed By: #### 0 0121 ####[facility] [place] [address], [facility] Glucose mass conc 159 mg/dL High 70-100 [facility] Comment on above: Performed By: #### 0 0121 ####[facility] [place] [address], [facility] Glucose mass conc 103 mg/dL High 70-100 [facility] Comment on above: Performed By: #### 0 0121 ####[facility] [place] [address], [facility] Glucose mass conc 99 mg/dL Normal 70-100 [facility] Comment on above: Performed By: #### 0 0121 ####[facility] [place] [address], [facility] BASIC METABOLIC PANELon Calcium mass conc 8.8 mg/dL Normal 8.6-10.3 [facility] Comment on above: Order Comment: No: D o not add to previous draw Performed By: #### 0 0121 ####[facility] [place] [address], [facility] Chloride molar conc 106 mmol/L Normal 98-107 [facility] Comment on above: Order Comment: No: D o not add to previous draw Performed By: #### 0 0121 ####[facility] [facility] [place] [address], [facility] CO2 molar conc 23 mmol/L Normal 21-31 [facility] Comment on above: Order Comment: No: D o not add to previous draw Performed By: #### 0 0121 ####[facility] [place] [address], [facility] Creatinine mass conc 1.01 mg/dL Normal 0.60-1.20 [facility] Comment on above: Order Comment: No: D o not add to previous draw Performed By: #### 0 0121 ####[facility] [facility] [place] [address], [facility] GFR/1.73 sq M predicted among blacks MDRD vol rate/area (S/P/Bld) mL/min/{1.73_m2} Normal >60 [facility] Comment on above: Order Comment: No: D o not add to previous draw Result Comment: Calc ulation may not be valid for patients over 70 years Performed By: #### 0 0121 ####[facility] [facility] [place] [address], [facility] GFR/1.73 sq M predicted among non-blacks MDRD vol rate/area (S/P/Bld) 53 ml/min/1.73sq m Abnormal >60 [facility] Comment on above: Order Comment: No: D o not add to previous draw Result Comment: Calc ulation may not be valid for patients over 70 years Performed By: #### 0 0121 ####[facility] [facility] [address], [facility] Glucose mass conc 139 mg/dL High 70-100 [facility] Comment on above: Order Comment: No: D o not add to previous draw Performed By: #### 0 0121 ####[facility] [facility] Potassium molar conc 4.1 mmol/L Normal 3.5-5.1 [facility] Comment on above: Order Comment: No: D o not add to previous draw Performed By: #### 0 0121 ####[facility] [facility].[address] Sodium molar conc 136 mmol/L Normal 136-145 [facility] Comment on above: Order Comment: No: D o not add to previous draw Performed By: #### 0 0121 ####[facility] Urea nitrogen mass conc 26 mg/dL High 7-25 [facility] Comment on above: Order Comment: No: D o not add to previous draw Performed By: #### 0 0121 ####[facility] CBC W/DIFFon 07-15-2018 ABS BASOPHILS 0.0 10*3/uL Normal 0.0-0.2 [facility] Comment on above: Order Comment: No: D o not add to previous draw Performed By: #### 0 0121 ####[facility] ABS IMM GRANS 0.3 10*3/uL High 0.0-0.2 [facility] Comment on above: Order Comment: No: D o not add to previous draw Performed By: #### 0 0121 ####[facility] ABS NEUTROPHILS 5.7 10*3/uL Normal 1.6-7.6 [facility] Comment on above: Order Comment: No: D o not add to previous draw Performed By: #### 0 0121 ####[facility] [facility].[address] Basophils Auto #/vol (Bld) 0.4 % Normal 0.0-1.0 [facility] Comment on above: Order Comment: No: D o not add to previous draw Performed By: #### 0 0121 ####[facility] Eosinophils Auto #/vol (Bld) 0.2 10*3/uL Normal 0.0-0.5 [facility] Comment on above: Order Comment: No: D o not add to previous draw Performed By: #### 0 0121 ####[facility] Eosinophils/100 WBC Auto (Bld) 2.1 % Normal 0.0-6.0 [facility] Comment on above: Order Comment: No: D o not add to previous draw Performed By: #### 0 0121 ####[facility] Erythrocyte distribution width Auto Ratio (RBC) 14.1 % Normal 11.5-15.0 [facility] Comment on above: Order Comment: No: D o not add to previous draw Performed By: #### 0 0121 ####[facility] Hematocrit Auto Volume Fraction (Bld) 28.7 % Low 36.0-45.0 [facility] Comment on above: Order Comment: No: D o not add to previous draw Performed By: #### 0 0121 ####[facility] Hemoglobin mass conc (Bld) 9.1 g/dL Low 12.0-15.0 [facility] Comment on above: Order Comment: No: D o not add to previous draw Performed By: #### 0 0121 ####[facility] [place] [address] IMMATURE GRANS 3.4 % High 0.0-1.0 [facility] Comment on above: Order Comment: No: D o not add to previous draw Performed By: #### 0 0121 ####[facility] Lymphocytes Auto #/vol (Bld) 2.6 10*3/uL Normal 1.2-4.0 [facility] Comment on above: Order Comment: No: D o not add to previous draw Performed By: #### 0 0121 ####[facility] Lymphocytes/100 WBC Auto (Bld) 25.8 % Normal 20.0-45.0 [facility] Comment on above: Order Comment: No: D o not add to previous draw Performed By: #### 0 0121 ####[place] [address] [address] MCH Auto Entitic mass (RBC) 30.4 pg Normal 27.0-33.0 [facility] Comment on above: Order Comment: No: D o not add to previous draw Performed By: #### 0 0121 ####[place] [address] MCHC Auto mass conc (RBC) 31.7 g/dL Low 32.0-35.0 [facility] Comment on above: Order Comment: No: D o not add to previous draw Performed By: #### 0 0121 ####[facility] MCV Auto Entitic volume (RBC) 96.0 fL Normal 82.0-98.0 [facility] Comment on above: Order Comment: No: D o not add to previous draw Performed By: #### 0 0121 ####[address] Monocytes Auto #/vol (Bld) 1.0 10*3/uL Normal 0.1-1.0 [facility] Comment on above: Order Comment: No: D o not add to previous draw Performed By: #### 0 0121 ####[facility] MONOS 10.2 % Normal 5.0-12.0 [facility] Comment on above: Order Comment: No: D o not add to previous draw Performed By: #### 0 0121 ####[facility] [facility].[address] Neutrophils/100 WBC Auto (Bld) 58.1 % Normal 40.0-72.0 [facility] Comment on above: Order Comment: No: D o not add to previous draw Performed By: #### 0 0121 ####[facility] [facility].[address] Nucleated RBC/100 WBC Ratio (Bld) 0 % Normal 0-0 [facility] Comment on above: Order Comment: No: D o not add to previous draw Performed By: #### 0 0121 ####[facility] [facility] [place] [address], [facility] PLAT CNT 447 10*3/uL High 150-400 [facility] Comment on above: Order Comment: No: D o not add to previous draw Performed By: #### 0 0121 ####[facility] [facility].[address] RBC Auto #/vol (Bld) 2.99 10*6/uL Low 3.80-5.00 [facility] Comment on above: Order Comment: No: D o not add to previous draw Performed By: #### 0 0121 ####[facility] WBC Auto #/vol (Bld) 9.87 10*3/uL Normal 4.00-10.60 [facility] Comment on above: Order Comment: No: D o not add to previous draw Performed By: #### 0 0121 ####[facility] [place] [address], [facility] MAGNESIUM BLOODon 07-15-2018 Magnesium mass conc 1.6 mg/dL Low 1.9-2.7 [facility] Comment on above: Order Comment: No: D o not add to previous draw Performed By: #### 0 0121 ####[facility] [place] [address], [facility] PHOSPHORUS BLOODon 8 Phosphate mass conc 3.2 mg/dL Normal 2.5-5.0 [facility] Comment on above: Order Comment: No: D o not add to previous draw Performed By: #### 0 0121 ####[facility] [place] [address], [facility] POC GLUCOSE LABon 07-15-2018 Glucose mass conc 109 mg/dL High 70-100 [facility] Comment on above: Performed By: #### 0 0121 ####[facility] [place] [address], [facility] Glucose mass conc 154 mg/dL High 70-100 [facility] Comment on above: Performed By: #### 0 0121 ####[facility] [place] [address], [facility] Glucose mass conc 156 mg/dL High 70-100 [facility] Comment on above: Performed By: #### 0 0121 ####[facility] [place] [address], [facility] Glucose mass conc 166 mg/dL High 70-100 [facility] Comment on above: Performed By: #### 0 0121 ####[facility] [place] [address], [facility] BASIC METABOLIC PANELon Calcium mass conc 9.6 mg/dL Normal 8.6-10.3 [facility] Comment on above: Order Comment: No: D o not add to previous draw Performed By: #### 0 0121 ####[facility] [place] [address], [facility] Chloride molar conc 105 mmol/L Normal 98-107 [facility] Comment on above: Order Comment: No: D o not add to previous draw Performed By: #### 0 0121 ####[facility] [place] [address], [place] CO2 molar conc 21 mmol/L Normal 21-31 [facility] Comment on above: Order Comment: No: D o not add to previous draw Performed By: #### 0 0121 ####[facility] [place] [address], [facility] Creatinine mass conc 1.16 mg/dL Normal 0.60-1.20 [facility] Comment on above: Order Comment: No: D o not add to previous draw Performed By: #### 0 0121 ####[facility] [facility] [place] [address], [facility] GFR/1.73 sq M predicted among blacks MDRD vol rate/area (S/P/Bld) 54 ml/min/1.73sq m Abnormal >60 [facility] Comment on above: Order Comment: No: D o not add to previous draw Result Comment: Calc ulation may not be valid for patients over 70 years Performed By: #### 0 0121 ####[facility] [facility] [place] [address], [facility] GFR/1.73 sq M predicted among non-blacks MDRD vol rate/area (S/P/Bld) 45 ml/min/1.73sq m Abnormal >60 [facility] Comment on above: Order Comment: No: D o not add to previous draw Result Comment: Calc ulation may not be valid for patients over 70 years Performed By: #### 0 0121 ####[facility] Glucose mass conc 172 mg/dL High 70-100 [facility] Comment on above: Order Comment: No: D o not add to previous draw Performed By: #### 0 0121 ####[facility] [facility].[address] Potassium molar conc 4.9 mmol/L Normal 3.5-5.1 [facility] Comment on above: Order Comment: No: D o not add to previous draw Performed By: #### 0 0121 ####[facility] [facility].[address] Sodium molar conc 132 mmol/L Low 136-145 [facility] Comment on above: Order Comment: No: D o not add to previous draw Performed By: #### 0 0121 ####[facility] [facility].[address] Urea nitrogen mass conc 28 mg/dL High 7-25 [facility] Comment on above: Order Comment: No: D o not add to previous draw Performed By: #### 0 0121 ####[address] CBC W/DIFFon 07-14-2018 ABS BASOPHILS 0.1 10*3/uL Normal 0.0-0.2 [facility] Comment on above: Order Comment: No: D o not add to previous draw Performed By: #### 0 0121 ####[facility] [facility].[address] ABS NEUTROPHILS 9.2 10*3/uL High 1.6-7.6 [facility] Comment on above: Order Comment: No: D o not add to previous draw Performed By: #### 0 0121 ####[facility] [facility].[address] Basophils Auto #/vol (Bld) 0.9 % Normal 0.0-1.0 [facility] Comment on above: Order Comment: No: D o not add to previous draw Performed By: #### 0 0121 ####[facility] [facility].[address] Eosinophils Auto #/vol (Bld) 0.4 10*3/uL Normal 0.0-0.5 [facility] Comment on above: Order Comment: No: D o not add to previous draw Performed By: #### 0 0121 ####[facility] Eosinophils/100 WBC Auto (Bld) 2.7 % Normal 0.0-6.0 [facility] Comment on above: Order Comment: No: D o not add to previous draw Performed By: #### 0 0121 ####[facility] Erythrocyte distribution width Auto Ratio (RBC) 14.4 % Normal 11.5-15.0 [facility] Comment on above: Order Comment: No: D o not add to previous draw Performed By: #### 0 0121 ####[facility] Hematocrit Auto Volume Fraction (Bld) 30.8 % Low 36.0-45.0 [facility] Comment on above: Order Comment: No: D o not add to previous draw Performed By: #### 0 0121 ####[facility] Hemoglobin mass conc (Bld) 9.7 g/dL Low 12.0-15.0 [facility] Comment on above: Order Comment: No: D o not add to previous draw Performed By: #### 0 0121 ####[facility] [place] [address], [facility] Lymphocytes Auto #/vol (Bld) 2.5 10*3/uL Normal 1.2-4.0 [facility] Comment on above: Order Comment: No: D o not add to previous draw Performed By: #### 0 0121 ####[facility] Lymphocytes/100 WBC Auto (Bld) 18.2 % Low 20.0-45.0 [facility] Comment on above: Order Comment: No: D o not add to previous draw Performed By: #### 0 0121 ####[facility] MCH Auto Entitic mass (RBC) 30.6 pg Normal 27.0-33.0 [facility] Comment on above: Order Comment: No: D o not add to previous draw Performed By: #### 0 0121 ####[facility] MCHC Auto mass conc (RBC) 31.5 g/dL Low 32.0-35.0 [facility] Comment on above: Order Comment: No: D o not add to previous draw Performed By: #### 0 0121 ####[facility] MCV Auto Entitic volume (RBC) 97.2 fL Normal 82.0-98.0 [facility] Comment on above: Order Comment: No: D o not add to previous draw Performed By: #### 0 0121 ####[facility] Monocytes Auto #/vol (Bld) 1.3 10*3/uL High 0.1-1.0 [facility] Comment on above: Order Comment: No: D o not add to previous draw Performed By: #### 0 0121 ####[facility] MONOS 10.0 % Normal 5.0-12.0 [facility] Comment on above: Order Comment: No: D o not add to previous draw Performed By: #### 0 0121 ####[facility] [place] [address], [facility] Neutrophils/100 WBC Auto (Bld) 68.2 % Normal 40.0-72.0 [facility] Comment on above: Order Comment: No: D o not add to previous draw Performed By: #### 0 0121 ####[facility] [facility].[address] NRBC SCAN Present Normal [facility] Comment on above: Order Comment: No: D o not add to previous draw Performed By: #### 0 0121 ####[facility] [facility].[address] Nucleated RBC/100 WBC Ratio (Bld) 0 % Normal 0-0 [facility] Comment on above: Order Comment: No: D o not add to previous draw Performed By: #### 0 0121 ####[facility] [facility].[address] PLAT CNT 509 10*3/uL High 150-400 [facility] Comment on above: Order Comment: No: D o not add to previous draw Performed By: #### 0 0121 ####[facility] [facility].[address] RBC Auto #/vol (Bld) 3.17 10*6/uL Low 3.80-5.00 [facility] Comment on above: Order Comment: No: D o not add to previous draw Performed By: #### 0 0121 ####[facility] [place] [address].[address] WBC Auto #/vol (Bld) 13.48 10*3/uL High 4.00-10.60 [facility] Comment on above: Order Comment: No: D o not add to previous draw Performed By: #### 0 0121 ####[facility] [place] [address], [facility] MAGNESIUM BLOODon 07-14-2018 Magnesium mass conc 2.2 mg/dL Normal 1.9-2.7 [facility] Comment on above: Order Comment: No: D o not add to previous draw Performed By: #### 0 0121 ####[facility] [place] [address], [facility] PHOSPHORUS BLOODon 8 Phosphate mass conc 3.8 mg/dL Normal 2.5-5.0 [facility] Comment on above: Order Comment: No: D o not add to previous draw Performed By: #### 0 0121 ####[facility] [place] [address], [facility] POC GLUCOSE LABon 07-14-2018 Glucose mass conc 169 mg/dL High 70-100 [facility] Comment on above: Performed By: #### 0 0121 ####[facility] [place] [address], [facility] Glucose mass conc 188 mg/dL High 70-100 [facility] Comment on above: Performed By: #### 0 0121 ####[facility] [place] [address], [facility] Glucose mass conc 187 mg/dL High 70-100 [facility] Comment on above: Performed By: #### 0 0121 ####[facility] [place] [address], [facility] Glucose mass conc 123 mg/dL High 70-100 [facility] Comment on above: Performed By: #### 0 0121 ####[facility] [place] [address], [facility] BASIC METABOLIC PANELon Calcium mass conc 9.2 mg/dL Normal 8.6-10.3 [facility] Comment on above: Order Comment: No: D o not add to previous draw Performed By: #### 0 0121 ####[facility] [place] [address], [facility] Chloride molar conc 104 mmol/L Normal 98-107 [facility] Comment on above: Order Comment: No: D o not add to previous draw Performed By: #### 0 0121 ####[facility] [place] [address], [place] CO2 molar conc 22 mmol/L Normal 21-31 [facility] Comment on above: Order Comment: No: D o not add to previous draw Performed By: #### 0 0121 ####[facility] [place] [address], [facility] Creatinine mass conc 1.30 mg/dL High 0.60-1.20 [facility] Comment on above: Order Comment: No: D o not add to previous draw Performed By: #### 0 0121 ####[facility] [place] [address], [facility] GFR/1.73 sq M predicted among blacks MDRD vol rate/area (S/P/Bld) 47 ml/min/1.73sq m Abnormal >60 [facility] Comment on above: Order Comment: No: D o not add to previous draw Result Comment: Calc ulation may not be valid for patients over 70 years Performed By: #### 0 0121 ####[facility] [place] [address], [facility] GFR/1.73 sq M predicted among non-blacks MDRD vol rate/area (S/P/Bld) 39 ml/min/1.73sq m Abnormal >60 [facility] Comment on above: Order Comment: No: D o not add to previous draw Result Comment: Calc ulation may not be valid for patients over 70 years Performed By: #### 0 0121 ####[facility] Glucose mass conc 160 mg/dL High 70-100 [facility] Comment on above: Order Comment: No: D o not add to previous draw Performed By: #### 0 0121 ####[facility] [facility].[address] Potassium molar conc 4.7 mmol/L Normal 3.5-5.1 [facility] Comment on above: Order Comment: No: D o not add to previous draw Performed By: #### 0 0121 ####[facility] [facility].[address] Sodium molar conc 133 mmol/L Low 136-145 [facility] Comment on above: Order Comment: No: D o not add to previous draw Performed By: #### 0 0121 ####[facility] [facility].[address] Urea nitrogen mass conc 32 mg/dL High 7-25 [facility] Comment on above: Order Comment: No: D o not add to previous draw Performed By: #### 0 0121 ####[address] CBC W/DIFFon 07-13-2018 ABS BASOPHILS 0.1 10*3/uL Normal 0.0-0.2 [facility] Comment on above: Order Comment: No: D o not add to previous draw Performed By: #### 0 0121 ####[facility] [facility].[address] ABS NEUTROPHILS 7.1 10*3/uL Normal 1.6-7.6 [facility] Comment on above: Order Comment: No: D o not add to previous draw Performed By: #### 0 0121 ####[facility] [facility].[address] Basophils Auto #/vol (Bld) 1.0 % Normal 0.0-1.0 [facility] Comment on above: Order Comment: No: D o not add to previous draw Performed By: #### 0 0121 ####[facility] Eosinophils Auto #/vol (Bld) 0.1 10*3/uL Normal 0.0-0.5 [facility] Comment on above: Order Comment: No: D o not add to previous draw Performed By: #### 0 0121 ####[facility] [facility].[address] Eosinophils/100 WBC Auto (Bld) 1.0 % Normal 0.0-6.0 [facility] Comment on above: Order Comment: No: D o not add to previous draw Performed By: #### 0 0121 ####[facility] [facility].[address] Erythrocyte distribution width Auto Ratio (RBC) 14.4 % Normal 11.5-15.0 [facility] Comment on above: Order Comment: No: D o not add to previous draw Performed By: #### 0 0121 ####[facility] [facility].[address] Hematocrit Auto Volume Fraction (Bld) 30.2 % Low 36.0-45.0 [facility] Comment on above: Order Comment: No: D o not add to previous draw Performed By: #### 0 0121 ####[facility] [facility].[address] Hemoglobin mass conc (Bld) 9.3 g/dL Low 12.0-15.0 [facility] Comment on above: Order Comment: No: D o not add to previous draw Performed By: #### 0 0121 ####[facility] [place] [address], [facility] Lymphocytes Auto #/vol (Bld) 2.7 10*3/uL Normal 1.2-4.0 [facility] Comment on above: Order Comment: No: D o not add to previous draw Performed By: #### 0 0121 ####[facility] Lymphocytes/100 WBC Auto (Bld) 23.3 % Normal 20.0-45.0 [facility] Comment on above: Order Comment: No: D o not add to previous draw Performed By: #### 0 0121 ####[facility] MCH Auto Entitic mass (RBC) 30.3 pg Normal 27.0-33.0 [facility] Comment on above: Order Comment: No: D o not add to previous draw Performed By: #### 0 0121 ####[facility] MCHC Auto mass conc (RBC) 30.8 g/dL Low 32.0-35.0 [facility] Comment on above: Order Comment: No: D o not add to previous draw Performed By: #### 0 0121 ####[facility] MCV Auto Entitic volume (RBC) 98.4 fL High 82.0-98.0 [facility] Comment on above: Order Comment: No: D o not add to previous draw Performed By: #### 0 0121 ####[facility] METAMYELO 1.9 % High 0.0-0.0 [facility] Comment on above: Order Comment: No: D o not add to previous draw Performed By: #### 0 0121 ####[facility] [place] [address] Monocytes Auto #/vol (Bld) 1.0 10*3/uL Normal 0.1-1.0 [facility] Comment on above: Order Comment: No: D o not add to previous draw Performed By: #### 0 0121 ####[facility] [place] [address], [facility] MONOS 8.7 % Normal 5.0-12.0 [facility] Comment on above: Order Comment: No: D o not add to previous draw Performed By: #### 0 0121 ####[facility] [facility] [place] [address], [facility] MYELOS 3.9 % High .0-.0 [facility] Comment on above: Order Comment: No: D o not add to previous draw Performed By: #### 0 0121 ####[facility] [facility].[address] Neutrophils/100 WBC Auto (Bld) 60.2 % Normal 40.0-72.0 [facility] Comment on above: Order Comment: No: D o not add to previous draw Performed By: #### 0 0121 ####[facility] [facility].[address] Nucleated RBC/100 WBC Ratio (Bld) 0 % Normal 0-0 [facility] Comment on above: Order Comment: No: D o not add to previous draw Performed By: #### 0 0121 ####[facility] [facility] [place] [address], [facility] PLAT CNT 435 10*3/uL High 150-400 [facility] Comment on above: Order Comment: No: D o not add to previous draw Performed By: #### 0 0121 ####[facility] [place] [address], [facility] RBC Auto #/vol (Bld) 3.07 10*6/uL Low 3.80-5.00 [facility] Comment on above: Order Comment: No: D o not add to previous draw Performed By: #### 0 0121 ####[facility] [facility] [place] [address], [facility] WBC Auto #/vol (Bld) 11.73 10*3/uL High 4.00-10.60 [facility] Comment on above: Order Comment: No: D o not add to previous draw Performed By: #### 0 0121 ####[facility] [facility] [place] [address], [facility] MAGNESIUM BLOODon 07-13-2018 Magnesium mass conc 1.8 mg/dL Low 1.9-2.7 [facility] Comment on above: Order Comment: No: D o not add to previous draw Performed By: #### 0 0121 ####[facility] [facility] [place] [address], [facility] PHOSPHORUS BLOODon 8 Phosphate mass conc 3.8 mg/dL Normal 2.5-5.0 [facility] Comment on above: Order Comment: No: D o not add to previous draw Performed By: #### 0 0121 ####[facility] [facility].[address] POC GLUCOSE LABon 07-13-2018 Glucose mass conc 147 mg/dL High 70-100 [facility] Comment on above: Performed By: #### 0 0121 ####[facility] [facility] [place] [address], [facility] Glucose mass conc 188 mg/dL High 70-100 [facility] Comment on above: Performed By: #### 0 0121 ####[facility] [facility] [place] [address], [facility] Glucose mass conc 150 mg/dL High 70-100 [facility] Comment on above: Performed By: #### 0 0121 ####[facility] [facility] [place] [address], [facility] Glucose mass conc 139 mg/dL High 70-100 [facility] Comment on above: Performed By: #### 0 0121 ####[facility] [place] [address], [facility] BASIC METABOLIC PANELon 09-0 Calcium mass conc 9.7 mg/dL Normal 8.6-10.3 [facility] Comment on above: Order Comment: No: D o not add to previous draw Performed By: #### 0 0121 ####[facility] [place] [address], [facility] Chloride molar conc 103 mmol/L Normal 98-107 [facility] Comment on above: Order Comment: No: D o not add to previous draw Performed By: #### 0 0121 ####[facility] [place] [address], [facility] CO2 molar conc 18 mmol/L Low 21-31 [facility] Comment on above: Order Comment: No: D o not add to previous draw Performed By: #### 0 0121 ####[facility] [place] [address], [facility] Creatinine mass conc 1.33 mg/dL High 0.60-1.20 [facility] Comment on above: Order Comment: No: D o not add to previous draw Performed By: #### 0 0121 ####[facility] [place] [address], [facility] GFR/1.73 sq M predicted among blacks MDRD vol rate/area (S/P/Bld) 47 ml/min/1.73sq m Abnormal >60 [facility] Comment on above: Order Comment: No: D o not add to previous draw Result Comment: Calc ulation may not be valid for patients over 70 years Performed By: #### 0 0121 ####[facility] [place] [address], [facility] GFR/1.73 sq M predicted among non-blacks MDRD vol rate/area (S/P/Bld) 39 ml/min/1.73sq m Abnormal >60 [facility] Comment on above: Order Comment: No: D o not add to previous draw Result Comment: Calc ulation may not be valid for patients over 70 years Performed By: #### 0 0121 ####[facility] [facility].[address] Glucose mass conc 133 mg/dL High 70-100 [facility] Comment on above: Order Comment: No: D o not add to previous draw Performed By: #### 0 0121 ####[facility] [facility].[address] Potassium molar conc 5.2 mmol/L High 3.5-5.1 [facility] Comment on above: Order Comment: No: D o not add to previous draw Performed By: #### 0 0121 ####[facility] [facility].[address] Sodium molar conc 131 mmol/L Low 136-145 [facility] Comment on above: Order Comment: No: D o not add to previous draw Performed By: #### 0 0121 ####[facility] [facility].[address] Urea nitrogen mass conc 31 mg/dL High 7-25 [facility] Comment on above: Order Comment: No: D o not add to previous draw Performed By: #### 0 0121 ####[facility] [facility] [place] [address], [facility] CBC W/DIFFon 07-12-2018 ABS BASOPHILS 0.1 10*3/uL Normal 0.0-0.2 [facility] Comment on above: Order Comment: No: D o not add to previous draw Performed By: #### 0 0121 ####[facility] [facility] [place] [address], [place] ABS IMM GRANS 1.2 10*3/uL High 0.0-0.2 [facility] Comment on above: Order Comment: No: D o not add to previous draw Performed By: #### 0 0121 ####[facility] [facility] [place] [address], [facility] ABS NEUTROPHILS 7.2 10*3/uL Normal 1.6-7.6 [facility] Comment on above: Order Comment: No: D o not add to previous draw Performed By: #### 0 0121 ####[facility] [facility] [place] [address], [facility] Basophils Auto #/vol (Bld) 0.5 % Normal 0.0-1.0 [facility] Comment on above: Order Comment: No: D o not add to previous draw Performed By: #### 0 0121 ####[facility] [facility] [place] [address], [facility] Eosinophils Auto #/vol (Bld) 0.3 10*3/uL Normal 0.0-0.5 [facility] Comment on above: Order Comment: No: D o not add to previous draw Performed By: #### 0 0121 ####[facility] [facility].[address] Eosinophils/100 WBC Auto (Bld) 2.3 % Normal 0.0-6.0 [facility] Comment on above: Order Comment: No: D o not add to previous draw Performed By: #### 0 0121 ####[facility] [facility].[address] Erythrocyte distribution width Auto Ratio (RBC) 14.2 % Normal 11.5-15.0 [facility] Comment on above: Order Comment: No: D o not add to previous draw Performed By: #### 0 0121 ####[facility] Hematocrit Auto Volume Fraction (Bld) 36.0 % Normal 36.0-45.0 [facility] Comment on above: Order Comment: No: D o not add to previous draw Performed By: #### 0 0121 ####[facility] [facility].[address] Hemoglobin mass conc (Bld) 11.2 g/dL Low 12.0-15.0 [facility] Comment on above: Order Comment: No: D o not add to previous draw Performed By: #### 0 0121 ####[facility] IMM PLATELET FRAC 2.2 % Normal 0.8-6.3 [facility] Comment on above: Order Comment: No: D o not add to previous draw Performed By: #### 0 0121 ####[facility] IMMATURE GRANS 9.1 % High 0.0-1.0 [facility] Comment on above: Order Comment: No: D o not add to previous draw Performed By: #### 0 0121 ####[facility] Lymphocytes Auto #/vol (Bld) 3.0 10*3/uL Normal 1.2-4.0 [facility] Comment on above: Order Comment: No: D o not add to previous draw Performed By: #### 0 0121 ####[facility] [facility].[address] Lymphocytes/100 WBC Auto (Bld) 22.3 % Normal 20.0-45.0 [facility] Comment on above: Order Comment: No: D o not add to previous draw Performed By: #### 0 0121 ####[facility] MCH Auto Entitic mass (RBC) 30.9 pg Normal 27.0-33.0 [facility] Comment on above: Order Comment: No: D o not add to previous draw Performed By: #### 0 0121 ####[facility] MCHC Auto mass conc (RBC) 31.1 g/dL Low 32.0-35.0 [facility] Comment on above: Order Comment: No: D o not add to previous draw Performed By: #### 0 0121 ####[facility] MCV Auto Entitic volume (RBC) 99.4 fL High 82.0-98.0 [facility] Comment on above: Order Comment: No: D o not add to previous draw Performed By: #### 0 0121 ####[facility] Monocytes Auto #/vol (Bld) 1.5 10*3/uL High 0.1-1.0 [facility] Comment on above: Order Comment: No: D o not add to previous draw Performed By: #### 0 0121 ####[facility] MONOS 11.3 % Normal 5.0-12.0 [facility] Comment on above: Order Comment: No: D o not add to previous draw Performed By: #### 0 0121 ####[facility] Neutrophils/100 WBC Auto (Bld) 54.5 % Normal 40.0-72.0 [facility] Comment on above: Order Comment: No: D o not add to previous draw Performed By: #### 0 0121 ####[facility] Nucleated RBC/100 WBC Ratio (Bld) 0 % Normal 0-0 [facility] Comment on above: Order Comment: No: D o not add to previous draw Performed By: #### 0 0121 ####[facility] [address], [facility] PLAT CNT 425 10*3/uL High 150-400 [facility] Comment on above: Order Comment: No: D o not add to previous draw Performed By: #### 0 0121 ####[facility] RBC Auto #/vol (Bld) 3.62 10*6/uL Low 3.80-5.00 [facility] Comment on above: Order Comment: No: D o not add to previous draw Performed By: #### 0 0121 ####[facility] [facility] [place] [address], [facility] WBC Auto #/vol (Bld) 13.29 10*3/uL High 4.00-10.60 [facility] Comment on above: Order Comment: No: D o not add to previous draw Performed By: #### 0 0121 ####[facility] [facility].[address] MAGNESIUM BLOODon 07-12-2018 Magnesium mass conc 2.1 mg/dL Normal 1.9-2.7 [facility] Comment on above: Order Comment: No: D o not add to previous draw Performed By: #### 0 0121 ####[facility] [place] [address], [facility] PHOSPHORUS BLOODon 8 Phosphate mass conc 4.6 mg/dL Normal 2.5-5.0 [facility] Comment on above: Order Comment: No: D o not add to previous draw Performed By: #### 0 0121 ####[facility] POC GLUCOSE LABon 07-12-2018 Glucose mass conc 145 mg/dL High 70-[address] [facility] Comment on above: Performed By: #### 0 0121 ####[facility] [place] [address], [facility] Glucose mass conc 184 mg/dL High 70-100 [facility] Comment on above: Performed By: #### 0 0121 ####[facility] [facility] [place] [address], [facility] Glucose mass conc 134 mg/dL High 70-100 [facility] Comment on above: Performed By: #### 0 0121 ####[facility] [place] [address], [facility] Glucose mass conc 168 mg/dL High 70-100 [facility] Comment on above: Performed By: #### 0 0121 ####[facility] [place] [address], [facility] ABDOMEN SERIES W CHESTon ABDOMEN SERIES W CHEST [facility] [id number] [place] [address] Stacy ent Name: VIDHYA GIORDANO : 1940Sex: FAge: Race: WhiteMRN: [id number]. Location: [id number] Status: IVisit #: [id number] Date: 07/11/2018 11:25:00 AMCompleted Date: 07/11/2018 01:43 PMRequesting Provider: ROSIBEL PERRY Attending Provider: MEG ABEBE Report Copy To: Signs & Symptoms: Post OPHistory: Patient history not availableComments: R/O ObstructionExam: ABDOMEN SERIES W CHESTAccession #: [id number] ===ABDOMEN SERIES W CHEST 07/11/2018 1:43 PM [...] obstruction. Electronically signed by:Nora Sethi. Transcribed by: [email or web address], User Resident: Electronically Signed by: NORA SETHI @ 07/12/2018 07:26 AM Normal [facility] Comment on above: Order Comment: R/O O bstruction BASIC METABOLIC PANELon Calcium mass conc 10.2 mg/dL Normal 8.6-10.3 [facility] Comment on above: Order Comment: No: D o not add to previous draw Performed By: #### 0 0121 ####[facility] [facility] [place] [address], [facility] Chloride molar conc 102 mmol/L Normal 98-107 [facility] Comment on above: Order Comment: No: D o not add to previous draw Performed By: #### 0 0121 ####[facility] [place] [address], [facility] CO2 molar conc 21 mmol/L Normal 21-31 [facility] Comment on above: Order Comment: No: D o not add to previous draw Performed By: #### 0 0121 ####[facility] [place] [address], [facility] Creatinine mass conc 1.30 mg/dL High 0.60-1.20 [facility] Comment on above: Order Comment: No: D o not add to previous draw Performed By: #### 0 0121 ####[facility] [place] [address], [facility] GFR/1.73 sq M predicted among blacks MDRD vol rate/area (S/P/Bld) 47 ml/min/1.73sq m Abnormal >60 [facility] Comment on above: Order Comment: No: D o not add to previous draw Result Comment: Calc ulation may not be valid for patients over 70 years Performed By: #### 0 0121 ####[facility] [facility] [place] [address], [facility] GFR/1.73 sq M predicted among non-blacks MDRD vol rate/area (S/P/Bld) 39 ml/min/1.73sq m Abnormal >60 [facility] Comment on above: Order Comment: No: D o not add to previous draw Result Comment: Calc ulation may not be valid for patients over 70 years Performed By: #### 0 0121 ####[facility] [facility] [place] [address], [facility] Glucose mass conc 162 mg/dL High 70-100 [facility] Comment on above: Order Comment: No: D o not add to previous draw Performed By: #### 0 0121 ####[facility] [facility] [place] [address], [facility] Potassium molar conc 5.6 mmol/L High 3.5-5.1 [facility] Comment on above: Order Comment: No: D o not add to previous draw Performed By: #### 0 0121 ####[facility] [facility] [place] [address], [facility] Sodium molar conc 132 mmol/L Low 136-145 [facility] Comment on above: Order Comment: No: D o not add to previous draw Performed By: #### 0 0121 ####[facility] Urea nitrogen mass conc 29 mg/dL High 7-25 [facility] Comment on above: Order Comment: No: D o not add to previous draw Performed By: #### 0 0121 ####[facility] CBC COMPLETE BLOOD COUNTon 0 07-11-2018 Erythrocyte distribution width Auto Ratio (RBC) 14.1 % Normal 11.5-15.0 [facility] Comment on above: Order Comment: This order is a replacement of the rejected order with accession [id number]. Performed By: #### 0 0121 ####[place] [address] Hematocrit Auto Volume Fraction (Bld) 33.4 % Low 36.0-45.0 [facility] Comment on above: Order Comment: This order is a replacement of the rejected order with accession [id number]. Performed By: #### 0 0121 ####[place] [address] Hemoglobin mass conc (Bld) 10.5 g/dL Low 12.0-15.0 [facility] Comment on above: Order Comment: This order is a replacement of the rejected order with accession [id number]. Performed By: #### 0 0121 ####[facility] MCH Auto Entitic mass (RBC) 30.3 pg Normal 27.0-33.0 [facility] Comment on above: Order Comment: This order is a replacement of the rejected order with accession [id number]. Performed By: #### 0 0121 ####[facility] MCHC Auto mass conc (RBC) 31.4 g/dL Low 32.0-35.0 [facility] Comment on above: Order Comment: This order is a replacement of the rejected order with accession [id number]. Performed By: #### 0 0121 ####[facility] MCV Auto Entitic volume (RBC) 96.5 fL Normal 82.0-98.0 [facility] Comment on above: Order Comment: This order is a replacement of the rejected order with accession [id number]. Performed By: #### 0 0121 ####[place] [address] Nucleated RBC/100 WBC Ratio (Bld) 0 % Normal 0-0 [facility] Comment on above: Order Comment: This order is a replacement of the rejected order with accession [id number]. Performed By: #### 0 0121 ####[facility] PLAT CNT 527 10*3/uL High 150-400 [facility] Comment on above: Order Comment: This order is a replacement of the rejected order with accession [id number]. Performed By: #### 0 0121 ####[place] [address] RBC Auto #/vol (Bld) 3.46 10*6/uL Low 3.80-5.00 [facility] Comment on above: Order Comment: This order is a replacement of the rejected order with accession [id number]. Performed By: #### 0 0121 ####[facility] WBC Auto #/vol (Bld) 15.56 10*3/uL High 4.00-10.60 [facility] Comment on above: Order Comment: This order is a replacement of the rejected order with accession [id number]. Performed By: #### 0 0121 ####[facility] [facility] [place] [address], [facility] MAGNESIUM BLOODon 07-11-2018 Magnesium mass conc 1.7 mg/dL Low 1.9-2.7 [facility] Comment on above: Order Comment: No: D o not add to previous draw Performed By: #### 0 0121 ####[facility] [facility] [place] [address], [facility] PHOSPHORUS BLOODon 8 Phosphate mass conc 4.6 mg/dL Normal 2.5-5.0 [facility] Comment on above: Order Comment: No: D o not add to previous draw Performed By: #### 0 0121 ####[facility] [facility] [place] [address], [facility] POC GLUCOSE LABon 07-11-2018 Glucose mass conc 158 mg/dL High 70-100 [facility] Comment on above: Performed By: #### 0 0121 ####[facility] [facility].[address] Glucose mass conc 204 mg/dL High 70-100 [facility] Comment on above: Performed By: #### 0 0121 ####[facility] [facility] [place] [address], [facility] Glucose mass conc 186 mg/dL High 70-100 [facility] Comment on above: Performed By: #### 0 0121 ####[facility] [facility].[address] *BLOOD CULTUREon 07-10-2018 Bacteria identified in Blood by Culture Clinical Report: (D) Specimen: BLOOD CULTURE Collected: 07/10/2018 11:19 Status: Final Last Updated: 07/16/2018 06:46 CULT RES (Final) No Growth Day 5 Normal [facility] Comment on above: Performed By: #### 0 0121 ####[facility] [place] [address], [facility] BASIC METABOLIC PANELon 09-0 Calcium mass conc 9.9 mg/dL Normal 8.6-10.3 [facility] Comment on above: Order Comment: No: D o not add to previous draw Performed By: #### 0 0121 ####[facility] [place] [address], [facility] Chloride molar conc 101 mmol/L Normal 98-107 [facility] Comment on above: Order Comment: No: D o not add to previous draw Performed By: #### 0 0121 ####[facility] [place] [address], [facility] CO2 molar conc 22 mmol/L Normal 21-31 [facility] Comment on above: Order Comment: No: D o not add to previous draw Performed By: #### 0 0121 ####[facility] [place] [address], [facility] Creatinine mass conc 1.18 mg/dL Normal 0.60-1.20 [facility] Comment on above: Order Comment: No: D o not add to previous draw Performed By: #### 0 0121 ####[facility] [place] [address], [facility] GFR/1.73 sq M predicted among blacks MDRD vol rate/area (S/P/Bld) 53 ml/min/1.73sq m Abnormal >60 [facility] Comment on above: Order Comment: No: D o not add to previous draw Result Comment: Calc ulation may not be valid for patients over 70 years Performed By: #### 0 0121 ####[facility] [place] [address], [facility] GFR/1.73 sq M predicted among non-blacks MDRD vol rate/area (S/P/Bld) 45 ml/min/1.73sq m Abnormal >60 [facility] Comment on above: Order Comment: No: D o not add to previous draw Result Comment: Calc ulation may not be valid for patients over 70 years Performed By: #### 0 0121 ####[facility] Glucose mass conc 212 mg/dL High 70-100 [facility] Comment on above: Order Comment: No: D o not add to previous draw Performed By: #### 0 0121 ####[facility] Potassium molar conc 5.1 mmol/L Normal 3.5-5.1 [facility] Comment on above: Order Comment: No: D o not add to previous draw Performed By: #### 0 0121 ####[facility] Sodium molar conc 132 mmol/L Low 136-145 [facility] Comment on above: Order Comment: No: D o not add to previous draw Performed By: #### 0 0121 ####[facility] Urea nitrogen mass conc 28 mg/dL High 7-25 [facility] Comment on above: Order Comment: No: D o not add to previous draw Performed By: #### 0 0121 ####[facility] CBC W/DIFFon 07-10-2018 ABS BASOPHILS 0.2 10*3/uL Normal 0.0-0.2 [facility] Comment on above: Order Comment: No: D o not add to previous draw Performed By: #### 0 0121 ####[facility] ABS IMM GRANS 2.1 10*3/uL High 0.0-0.2 [facility] Comment on above: Order Comment: No: D o not add to previous draw Performed By: #### 0 0121 ####[facility] [facility] [place] [address], [facility] ABS NEUTROPHILS 13.5 10*3/uL High 1.6-7.6 [facility] Comment on above: Order Comment: No: D o not add to previous draw Performed By: #### 0 0121 ####[facility] [facility] [place] [address], [facility] Basophils Auto #/vol (Bld) 1.0 % Normal 0.0-1.0 [facility] Comment on above: Order Comment: No: D o not add to previous draw Performed By: #### 0 0121 ####[facility] [place] [address], [facility] Eosinophils Auto #/vol (Bld) 0.2 10*3/uL Normal 0.0-0.5 [facility] Comment on above: Order Comment: No: D o not add to previous draw Performed By: #### 0 0121 ####[facility] [place] [address], [facility] Eosinophils/100 WBC Auto (Bld) 1.0 % Normal 0.0-6.0 [facility] Comment on above: Order Comment: No: D o not add to previous draw Performed By: #### 0 0121 ####[facility] [facility].[address] Erythrocyte distribution width Auto Ratio (RBC) 13.9 % Normal 11.5-15.0 [facility] Comment on above: Order Comment: No: D o not add to previous draw Performed By: #### 0 0121 ####[facility] Hematocrit Auto Volume Fraction (Bld) 32.3 % Low 36.0-45.0 [facility] Comment on above: Order Comment: No: D o not add to previous draw Performed By: #### 0 0121 ####[facility] Hemoglobin mass conc (Bld) 10.4 g/dL Low 12.0-15.0 [facility] Comment on above: Order Comment: No: D o not add to previous draw Performed By: #### 0 0121 ####[facility] Lymphocytes Auto #/vol (Bld) 2.8 10*3/uL Normal 1.2-4.0 [facility] Comment on above: Order Comment: No: D o not add to previous draw Performed By: #### 0 0121 ####[facility] Lymphocytes/100 WBC Auto (Bld) 15.0 % Low 20.0-45.0 [facility] Comment on above: Order Comment: No: D o not add to previous draw Performed By: #### 0 0121 ####[facility] MCH Auto Entitic mass (RBC) 30.6 pg Normal 27.0-33.0 [facility] Comment on above: Order Comment: No: D o not add to previous draw Performed By: #### 0 0121 ####[facility] [place] [address] MCHC Auto mass conc (RBC) 32.2 g/dL Normal 32.0-35.0 [facility] Comment on above: Order Comment: No: D o not add to previous draw Performed By: #### 0 0121 ####[place] [address] [address] MCV Auto Entitic volume (RBC) 95.0 fL Normal 82.0-98.0 [facility] Comment on above: Order Comment: No: D o not add to previous draw Performed By: #### 0 0121 ####[facility] [facility] [place] [address], [facility] METAMYELO 4.0 % High 0.0-0.0 [facility] Comment on above: Order Comment: No: D o not add to previous draw Performed By: #### 0 0121 ####[facility] [facility] [place] [address], [facility] Monocytes Auto #/vol (Bld) 0.9 10*3/uL Normal 0.1-1.0 [facility] Comment on above: Order Comment: No: D o not add to previous draw Performed By: #### 0 0121 ####[facility] [facility] [place] [address], [facility] MONOS 5.0 % Normal 5.0-12.0 [facility] Comment on above: Order Comment: No: D o not add to previous draw Performed By: #### 0 0121 ####[facility] [facility] [place] [address], [facility] MYELOS 2.0 % High .0-.0 [facility] Comment on above: Order Comment: No: D o not add to previous draw Performed By: #### 0 0121 ####[facility] [facility] [place] [address], [facility] Neutrophils/100 WBC Auto (Bld) 72.0 % Normal 40.0-72.0 [facility] Comment on above: Order Comment: No: D o not add to previous draw Performed By: #### 0 0121 ####[facility] [facility] [place] [address], [facility] Nucleated RBC/100 WBC Ratio (Bld) 0 % Normal 0-0 [facility] Comment on above: Order Comment: No: D o not add to previous draw Performed By: #### 0 0121 ####[facility] PLAT CNT 530 10*3/uL High 150-400 [facility] Comment on above: Order Comment: No: D o not add to previous draw Performed By: #### 0 0121 ####[facility] RBC Auto #/vol (Bld) 3.40 10*6/uL Low 3.80-5.00 [facility] Comment on above: Order Comment: No: D o not add to previous draw Performed By: #### 0 0121 ####[facility] WBC Auto #/vol (Bld) 18.70 10*3/uL High 4.00-10.60 [facility] Comment on above: Order Comment: No: D o not add to previous draw Performed By: #### 0 0121 ####[address] ABDOMEN AND PELVIS WO CON TRASTon 07-10-2018 CT ABDOMEN AND PELVIS WO CONTRAST [facility] Dadghpkx[address] [place] [address] Stacy ent Name: VIDHYA GIORDANO : 1940Sex: FAge: Race: WhiteMRN: [id number]. Location: [id number] Status: IVisit #: [id number] Date: 07/10/2018 11:10:00 AMCompleted Date: 07/10/2018 02:44 PMRequesting Provider: MEG AEBBE Attending Provider: MEG ABEBE Report Copy To: Signs & Symptoms: AbscessHistory: Patient history not availableComments: Other, leukocytosis. need oral contrastExam: CT ABDOMEN AND PELVIS WO CONTRASTAccession #: [id number] ===CT ABDOMEN AND PELVIS WO CONTRAST 07/10/2018 [...] findings. Electronically signed by:Rhoda Nicole. Transcribed by: [email or web address], User Resident: WU TURNERElectronically Signed by: RHODA NICOLE @ 07/12/2018 10:55 AMI personally read this/these film(s) with this resident Normal [facility] Comment on above: Order Comment: Other , leukocytosis. need oral contrast MAGNESIUM BLOODon 07-10-2018 Magnesium mass conc 1.8 mg/dL Low 1.9-2.7 [facility] Comment on above: Order Comment: No: D o not add to previous draw Performed By: #### 0 0121 ####[facility] PHOSPHORUS BLOODon 8 Phosphate mass conc 4.4 mg/dL Normal 2.5-5.0 [facility] Comment on above: Order Comment: No: D o not add to previous draw Performed By: #### 0 0121 ####[facility] [place] [address], [facility] POC GLUCOSE LABon 07-10-2018 Glucose mass conc 183 mg/dL High 70-100 [facility] Comment on above: Performed By: #### 0 0121 ####[facility] [facility] [place] [address], [facility] Glucose mass conc 195 mg/dL High 70-100 [facility] Comment on above: Performed By: #### 0 0121 ####[facility] [facility] [place] [address], [facility] Glucose mass conc 246 mg/dL High 70-100 [facility] Comment on above: Performed By: #### 0 0121 ####[facility] [facility] [place] [address], [facility] Glucose mass conc 187 mg/dL High 70-100 [facility] Comment on above: Performed By: #### 0 0121 ####[facility] [facility].[address] *BLOOD CULTUREon 07-09-2018 Bacteria identified in Blood by Culture Clinical Report: (D) Specimen: BLOOD CULTURE Collected: 07/09/2018 17:53 Status: Final Last Updated: 07/15/2018 07:43 CULT RES (Final) No Growth Day 5 Normal [facility] Comment on above: Performed By: #### 0 0121 ####[facility] [facility].[address] BASIC METABOLIC PANELon Calcium mass conc 9.2 mg/dL Normal 8.6-10.3 [facility] Comment on above: Order Comment: No: D o not add to previous draw Performed By: #### 0 0121 ####[facility] Chloride molar conc 102 mmol/L Normal 98-107 [facility] Comment on above: Order Comment: No: D o not add to previous draw Performed By: #### 0 0121 ####[facility] [place] [address], [facility] CO2 molar conc 25 mmol/L Normal 21-31 [facility] Comment on above: Order Comment: No: D o not add to previous draw Performed By: #### 0 0121 ####[facility] [place] [address], [facility] Creatinine mass conc 0.95 mg/dL Normal 0.60-1.20 [facility] Comment on above: Order Comment: No: D o not add to previous draw Performed By: #### 0 0121 ####[facility] [place] [address], [facility] GFR/1.73 sq M predicted among blacks MDRD vol rate/area (S/P/Bld) mL/min/{1.73_m2} Normal >60 [facility] Comment on above: Order Comment: No: D o not add to previous draw Result Comment: Calc ulation may not be valid for patients over 70 years Performed By: #### 0 0121 ####[facility] [facility] [place] [address], [facility] GFR/1.73 sq M predicted among non-blacks MDRD vol rate/area (S/P/Bld) 56 ml/min/1.73sq m Abnormal >60 [facility] Comment on above: Order Comment: No: D o not add to previous draw Result Comment: Calc ulation may not be valid for patients over 70 years Performed By: #### 0 0121 ####[facility] [place] [address], [facility] Glucose mass conc 178 mg/dL High 70-100 [facility] Comment on above: Order Comment: No: D o not add to previous draw Performed By: #### 0 0121 ####[facility] [place] [address], [facility] Potassium molar conc 4.5 mmol/L Normal 3.5-5.1 [facility] Comment on above: Order Comment: No: D o not add to previous draw Performed By: #### 0 0121 ####[facility] Sodium molar conc 131 mmol/L Low 136-145 [facility] Comment on above: Order Comment: No: D o not add to previous draw Performed By: #### 0 0121 ####[facility] [place] [address] Urea nitrogen mass conc 28 mg/dL High 7-25 [facility] Comment on above: Order Comment: No: D o not add to previous draw Performed By: #### 0 0121 ####[place] [address] CBC W/DIFFon 07-09-2018 ABS BASOPHILS 0.0 10*3/uL Normal 0.0-0.2 [facility] Comment on above: Order Comment: No: D o not add to previous draw Performed By: #### 0 0121 ####[place] [address] ABS NEUTROPHILS 12.4 10*3/uL High 1.6-7.6 [facility] Comment on above: Order Comment: No: D o not add to previous draw Performed By: #### 0 0121 ####[facility] Basophils Auto #/vol (Bld) 0.0 % Normal 0.0-1.0 [facility] Comment on above: Order Comment: No: D o not add to previous draw Performed By: #### 0 0121 ####[facility] Eosinophils Auto #/vol (Bld) 0.3 10*3/uL Normal 0.0-0.5 [facility] Comment on above: Order Comment: No: D o not add to previous draw Performed By: #### 0 0121 ####[facility] Eosinophils/100 WBC Auto (Bld) 1.8 % Normal 0.0-6.0 [facility] Comment on above: Order Comment: No: D o not add to previous draw Performed By: #### 0 0121 ####[facility] Erythrocyte distribution width Auto Ratio (RBC) 14.0 % Normal 11.5-15.0 [facility] Comment on above: Order Comment: No: D o not add to previous draw Performed By: #### 0 0121 ####[facility] GIANT PLATELETS Present Normal [facility] Comment on above: Order Comment: No: D o not add to previous draw Performed By: #### 0 0121 ####[facility] Hematocrit Auto Volume Fraction (Bld) 30.0 % Low 36.0-45.0 [facility] Comment on above: Order Comment: No: D o not add to previous draw Performed By: #### 0 0121 ####[facility] [facility].[address] Hemoglobin mass conc (Bld) 9.6 g/dL Low 12.0-15.0 [facility] Comment on above: Order Comment: No: D o not add to previous draw Performed By: #### 0 0121 ####[facility] Lymphocytes Auto #/vol (Bld) 3.1 10*3/uL Normal 1.2-4.0 [facility] Comment on above: Order Comment: No: D o not add to previous draw Performed By: #### 0 0121 ####[facility] Lymphocytes/100 WBC Auto (Bld) 17.4 % Low 20.0-45.0 [facility] Comment on above: Order Comment: No: D o not add to previous draw Performed By: #### 0 0121 ####[facility] MCH Auto Entitic mass (RBC) 30.6 pg Normal 27.0-33.0 [facility] Comment on above: Order Comment: No: D o not add to previous draw Performed By: #### 0 0121 ####[facility] MCHC Auto mass conc (RBC) 32.0 g/dL Normal 32.0-35.0 [facility] Comment on above: Order Comment: No: D o not add to previous draw Performed By: #### 0 0121 ####[facility] MCV Auto Entitic volume (RBC) 95.5 fL Normal 82.0-98.0 [facility] Comment on above: Order Comment: No: D o not add to previous draw Performed By: #### 0 0121 ####[facility] METAMYELO 1.8 % High 0.0-0.0 [facility] Comment on above: Order Comment: No: D o not add to previous draw Performed By: #### 0 0121 ####[address] Monocytes Auto #/vol (Bld) 1.3 10*3/uL High 0.1-1.0 [facility] Comment on above: Order Comment: No: D o not add to previous draw Performed By: #### 0 0121 ####[facility] [place] [address], [facility] MONOS 7.4 % Normal 5.0-12.0 [facility] Comment on above: Order Comment: No: D o not add to previous draw Performed By: #### 0 0121 ####[facility] [place] [address], [facility] MYELOS 0.9 % High .0-.0 [facility] Comment on above: Order Comment: No: D o not add to previous draw Performed By: #### 0 0121 ####[facility] [place] [address], [facility] Neutrophils/100 WBC Auto (Bld) 70.7 % Normal 40.0-72.0 [facility] Comment on above: Order Comment: No: D o not add to previous draw Performed By: #### 0 0121 ####[facility] NRBC SCAN Present Normal [facility] Comment on above: Order Comment: No: D o not add to previous draw Performed By: #### 0 0121 ####[facility] [place] [address], [facility] Nucleated RBC/100 WBC Ratio (Bld) 0 % Normal 0-0 [facility] Comment on above: Order Comment: No: D o not add to previous draw Performed By: #### 0 0121 ####[facility] [place] [address], [facility] PLAT CNT 430 10*3/uL High 150-400 [facility] Comment on above: Order Comment: No: D o not add to previous draw Performed By: #### 0 0121 ####[facility] [place] [address], [facility] RBC Auto #/vol (Bld) 3.14 10*6/uL Low 3.80-5.00 [facility] Comment on above: Order Comment: No: D o not add to previous draw Performed By: #### 0 0121 ####[facility] [facility].[address] WBC Auto #/vol (Bld) 17.58 10*3/uL High 4.00-10.60 [facility] Comment on above: Order Comment: No: D o not add to previous draw Performed By: #### 0 0121 ####[facility] [facility] [place] [address], [facility] MAGNESIUM BLOODon 07-09-2018 Magnesium mass conc 1.8 mg/dL Low 1.9-2.7 [facility] Comment on above: Order Comment: No: D o not add to previous draw Performed By: #### 0 0121 ####[facility] [facility] [place] [address], [facility] PHOSPHORUS BLOODon 8 Phosphate mass conc 4.1 mg/dL Normal 2.5-5.0 [facility] Comment on above: Order Comment: No: D o not add to previous draw Performed By: #### 0 0121 ####[facility] [facility].[address] POC GLUCOSE LABon 07-09-2018 Glucose mass conc 172 mg/dL High 70-100 [facility] Comment on above: Performed By: #### 0 0121 ####[facility] [facility] [place] [address], [facility] Glucose mass conc 179 mg/dL High 70-100 [facility] Comment on above: Performed By: #### 0 0121 ####[facility] [facility] [place] [address], [facility] Glucose mass conc 168 mg/dL High 70-100 [facility] Comment on above: Performed By: #### 0 0121 ####[id number] [place] [address], [facility] Glucose mass conc 147 mg/dL High 70-100 [facility] Comment on above: Performed By: #### 0 0121 ####[facility] [place] [address], [facility] PORTABLE CHEST 1 VIEWon PORTABLE CHEST 1 VIEW [facility] D[address]mdmbbmc[address] [place] [address] Stacy ent Name: VIDHYA GIORDANO : 1940Sex: FAge: Race: WhiteMRN: [id number]. Location: [id number] Status: IVisit #: [id number] Date: 07/09/2018 5:25:00 PMCompleted Date: 07/09/2018 06:13 PMRequesting Provider: MARLIN DELGADO Attending Provider: MEG ABEBE Report Copy To: Signs & Symptoms: Elevated WBCHistory: Patient history not availableComments: R/O PneumoniaExam: PORTABLE CHEST 1 VIEWAccession #: [id number] ===PORTABLE CHEST 1 VIEW 07/09/2018 6:13 PM [...] findings. Electronically signed by:Rhoda Nicole. Transcribed by: [id number], User Resident: WU TURNERElectronically Signed by: RHODA NICOLE @ 07/10/2018 12:40 PMI personally read this/these film(s) with this resident Normal [facility] Comment on above: Order Comment: R/O P neumonia URINALYSIS REFLEXon 07-09-20 18 APPEARANCE CLEAR Normal CLEAR [facility] Comment on above: Order Comment: No: D o not add to previous drawCriteria for reflexing a culture was not met. Please call the lab [phone] within 24 hours of collection time if culture is needed Performed By: #### 0 0121 ####[facility] [facility] [place] [address], [facility] BILIRUBIN Negative Normal NEGATIVE [facility] Comment on above: Order Comment: No: D o not add to previous drawCriteria for reflexing a culture was not met. Please call the lab [phone] within 24 hours of collection time if culture is needed Performed By: #### 0 0121 ####[facility] [place] [address], [place] BLOOD Negative Normal NEGATIVE [facility] Comment on above: Order Comment: No: D o not add to previous drawCriteria for reflexing a culture was not met. Please call the lab [id number] within 24 hours of collection time if culture is needed Performed By: #### 0 0121 ####[facility] [place] [address], [place] COLOR YELLOW Normal YELLOW [facility] Comment on above: Order Comment: No: D o not add to previous drawCriteria for reflexing a culture was not met. Please call the lab [id number] within 24 hours of collection time if culture is needed Performed By: #### 0 0121 ####[facility] [place] [address], [place] GLUCOSE Negative Normal NEGATIVE [facility] Comment on above: Order Comment: No: D o not add to previous drawCriteria for reflexing a culture was not met. Please call the lab [id number] within 24 hours of collection time if culture is needed Performed By: #### 0 0121 ####[facility] [place] [address], [facility] KETONE Negative Normal NEGATIVE [facility] Comment on above: Order Comment: No: D o not add to previous drawCriteria for reflexing a culture was not met. Please call the lab [id number] within 24 hours of collection time if culture is needed Performed By: #### 0 0121 ####[facility] [address], [place] LE[place] GA Negative Normal NEGATIVE [facility] Comment on above: Order Comment: No: D o not add to previous drawCriteria for reflexing a culture was not met. Please call the lab [id number] within 24 hours of collection time if culture is needed Performed By: #### 0 0121 ####[facility] [place] [address], [place] MICRO NOT DONE negative chemical reactions unless requested in original order Normal [facility] Comment on above: Order Comment: No: D o not add to previous drawCriteria for reflexing a culture was not met. Please call the lab [id number] within 24 hours of collection time if culture is needed Performed By: #### 0 0121 ####[facility] [place] [address], [place] NITRITE Negative Normal NEGATIVE [facility] Comment on above: Order Comment: No: D o not add to previous drawCriteria for reflexing a culture was not met. Please call the lab [id number] within 24 hours of collection time if culture is needed Performed By: #### 0 0121 ####[facility] [place] [address], [facility] PH 5.0 Normal 5.0-8.0 [facility] Comment on above: Order Comment: No: D o not add to previous drawCriteria for reflexing a culture was not met. Please call the lab [id number] within 24 hours of collection time if culture is needed Performed By: #### 0 0121 ####[facility] [place] [address], [facility] Protein mass conc Negative Normal NEGATIVE [facility] Comment on above: Order Comment: No: D o not add to previous drawCriteria for reflexing a culture was not met. Please call the lab [id number] within 24 hours of collection time if culture is needed Performed By: #### 0 0121 ####[facility] [place] [address], [facility] SPEC GRAV 1.009 Low 1.015-1.020 [facility] Comment on above: Order Comment: No: D o not add to previous drawCriteria for reflexing a culture was not met. Please call the lab [id number] within 24 hours of collection time if culture is needed Performed By: #### 0 0121 ####[facility] [facility] [place] [address], [facility] BASIC METABOLIC PANELon 08-3 Calcium mass conc 9.2 mg/dL Normal 8.6-10.3 [facility] Comment on above: Order Comment: No: D o not add to previous drawNo collection time noted on specimen or requisition. The collection timerecorded is the time of receipt in the lab. Performed By: #### 1 0070, 84528, 48940 ####[facility] [facility] [place] [address], [facility] Chloride molar conc 100 mmol/L Normal 98-107 [facility] Comment on above: Order Comment: No: D o not add to previous drawNo collection time noted on specimen or requisition. The collection timerecorded is the time of receipt in the lab. Performed By: #### 1 0070, 67990, 01110 ####[facility] [facility] [place] [address], [facility] CO2 molar conc 26 mmol/L Normal 21-31 [facility] Comment on above: Order Comment: No: D o not add to previous drawNo collection time noted on specimen or requisition. The collection timerecorded is the time of receipt in the lab. Performed By: #### 1 0070, 88852, 64763 ####[facility] [place] [address], [facility] Creatinine mass conc 0.92 mg/dL Normal 0.60-1.20 [facility] Comment on above: Order Comment: No: D o not add to previous drawNo collection time noted on specimen or requisition. The collection timerecorded is the time of receipt in the lab. Performed By: #### 1 0070, 78826, 17152 ####[facility] [facility] [place] [address], [facility] GFR/1.73 sq M predicted among blacks MDRD vol rate/area (S/P/Bld) mL/min/{1.73_m2} Normal >60 [facility] Comment on above: Order Comment: No: D o not add to previous drawNo collection time noted on specimen or requisition. The collection timerecorded is the time of receipt in the lab. Result Comment: Calc ulation may not be valid for patients over 70 years Performed By: #### 1 0070, 58974, 04415 ####[facility] [facility] [place] [address], [facility] GFR/1.73 sq M predicted among non-blacks MDRD vol rate/area (S/P/Bld) 59 ml/min/1.73sq m Abnormal >60 [facility] Comment on above: Order Comment: No: D o not add to previous drawNo collection time noted on specimen or requisition. The collection timerecorded is the time of receipt in the lab. Result Comment: Calc ulation may not be valid for patients over 70 years Performed By: #### 1 0070, 89073, 25212 ####[facility] [facility] [place] [address], [facility] Glucose mass conc 391 mg/dL High 70-100 [facility] Comment on above: Order Comment: No: D o not add to previous drawNo collection time noted on specimen or requisition. The collection timerecorded is the time of receipt in the lab. Performed By: #### 1 0070, 31224, 10479 ####[facility] [facility] [place] [address], [facility] Potassium molar conc 5.1 mmol/L Normal 3.5-5.1 [facility] Comment on above: Order Comment: No: D o not add to previous drawNo collection time noted on specimen or requisition. The collection timerecorded is the time of receipt in the lab. Performed By: #### 1 0070, 01062, 06239 ####[facility] [facility] [place] [address], [facility] Sodium molar conc 130 mmol/L Low 136-145 [facility] Comment on above: Order Comment: No: D o not add to previous drawNo collection time noted on specimen or requisition. The collection timerecorded is the time of receipt in the lab. Performed By: #### 1 0070, 57166, 26444 ####[facility] [facility] [place] [address], [facility] Urea nitrogen mass conc 24 mg/dL Normal 7-25 [facility] Comment on above: Order Comment: No: D o not add to previous drawNo collection time noted on specimen or requisition. The collection timerecorded is the time of receipt in the lab. Performed By: #### 1 0, 12901, 57086 ####[facility] [facility].[address] CBC W/DIFFon 07-08-2018 ABS BASOPHILS 0.5 10*3/uL High 0.0-0.2 [facility] Comment on above: Order Comment: No: D o not add to previous drawNo collection time noted on specimen or requisition. The collection timerecorded is the time of receipt in the lab. Performed By: #### 1 0, 34931, 91629 ####[facility] [facility].[address] ABS NEUTROPHILS 12.1 10*3/uL High 1.6-7.6 [facility] Comment on above: Order Comment: No: D o not add to previous drawNo collection time noted on specimen or requisition. The collection timerecorded is the time of receipt in the lab. Performed By: #### 1 0, , 23646 ####[facility] [facility].[address] Basophils Auto #/vol (Bld) 2.8 % High 0.0-1.0 [facility] Comment on above: Order Comment: No: D o not add to previous drawNo collection time noted on specimen or requisition. The collection timerecorded is the time of receipt in the lab. Performed By: #### 1 0, , 85023 ####[facility] [facility].[address] Eosinophils Auto #/vol (Bld) 0.1 10*3/uL Normal 0.0-0.5 [facility] Comment on above: Order Comment: No: D o not add to previous drawNo collection time noted on specimen or requisition. The collection timerecorded is the time of receipt in the lab. Performed By: #### 1 0, 05695, 38623 ####[facility] [facility].[address] Eosinophils/100 WBC Auto (Bld) 0.9 % Normal 0.0-6.0 [facility] Comment on above: Order Comment: No: D o not add to previous drawNo collection time noted on specimen or requisition. The collection timerecorded is the time of receipt in the lab. Performed By: #### 1 0070, 07635, 27687 ####[facility] Erythrocyte distribution width Auto Ratio (RBC) 13.7 % Normal 11.5-15.0 [facility] Comment on above: Order Comment: No: D o not add to previous drawNo collection time noted on specimen or requisition. The collection timerecorded is the time of receipt in the lab. Performed By: #### 1 0070, 12474, 79662 ####[facility] [facility].[address] Hematocrit Auto Volume Fraction (Bld) 30.4 % Low 36.0-45.0 [facility] Comment on above: Order Comment: No: D o not add to previous drawNo collection time noted on specimen or requisition. The collection timerecorded is the time of receipt in the lab. Performed By: #### 1 0070, 70516, 72775 ####[facility] Hemoglobin mass conc (Bld) 9.7 g/dL Low 12.0-15.0 [facility] Comment on above: Order Comment: No: D o not add to previous drawNo collection time noted on specimen or requisition. The collection timerecorded is the time of receipt in the lab. Performed By: #### 1 0070, 88789, 12202 ####[facility] [facility].[address] Lymphocytes Auto #/vol (Bld) 1.5 10*3/uL Normal 1.2-4.0 [facility] Comment on above: Order Comment: No: D o not add to previous drawNo collection time noted on specimen or requisition. The collection timerecorded is the time of receipt in the lab. Performed By: #### 1 0070, 64554, 44211 ####[facility] Lymphocytes/100 WBC Auto (Bld) 9.2 % Low 20.0-45.0 [facility] Comment on above: Order Comment: No: D o not add to previous drawNo collection time noted on specimen or requisition. The collection timerecorded is the time of receipt in the lab. Performed By: #### 1 0070, 46622, 05052 ####[facility] [place] [address] MCH Auto Entitic mass (RBC) 30.7 pg Normal 27.0-33.0 [facility] Comment on above: Order Comment: No: D o not add to previous drawNo collection time noted on specimen or requisition. The collection timerecorded is the time of receipt in the lab. Performed By: #### 1 0070, 58927, 11525 ####[address] MCHC Auto mass conc (RBC) 31.9 g/dL Low 32.0-35.0 [facility] Comment on above: Order Comment: No: D o not add to previous drawNo collection time noted on specimen or requisition. The collection timerecorded is the time of receipt in the lab. Performed By: #### 1 0070, 91095, 09215 ####[facility] MCV Auto Entitic volume (RBC) 96.2 fL Normal 82.0-98.0 [facility] Comment on above: Order Comment: No: D o not add to previous drawNo collection time noted on specimen or requisition. The collection timerecorded is the time of receipt in the lab. Performed By: #### 1 0070, 23973, 49083 ####[facility] [facility] [address], [facility] Monocytes Auto #/vol (Bld) 1.9 10*3/uL High 0.1-1.0 [facility] Comment on above: Order Comment: No: D o not add to previous drawNo collection time noted on specimen or requisition. The collection timerecorded is the time of receipt in the lab. Performed By: #### 1 0, , 83399 ####[facility] [facility].[address] MONOS 11.9 % Normal 5.0-12.0 [facility] Comment on above: Order Comment: No: D o not add to previous drawNo collection time noted on specimen or requisition. The collection timerecorded is the time of receipt in the lab. Performed By: #### 1 0, , 64659 ####[facility] [facility].[address] Neutrophils/100 WBC Auto (Bld) 75.2 % High 40.0-72.0 [facility] Comment on above: Order Comment: No: D o not add to previous drawNo collection time noted on specimen or requisition. The collection timerecorded is the time of receipt in the lab. Performed By: #### 1 0, , 30257 ####[facility] [facility].[address] Nucleated RBC/100 WBC Ratio (Bld) 0 % Normal 0-0 [facility] Comment on above: Order Comment: No: D o not add to previous drawNo collection time noted on specimen or requisition. The collection timerecorded is the time of receipt in the lab. Performed By: #### 1 0, 88314, 93690 ####[facility] [place] [address], [facility] PLAT CNT 354 10*3/uL Normal 150-400 [facility] Comment on above: Order Comment: No: D o not add to previous drawNo collection time noted on specimen or requisition. The collection timerecorded is the time of receipt in the lab. Performed By: #### 1 0070, 93007, 77142 ####[facility] RBC Auto #/vol (Bld) 3.16 10*6/uL Low 3.80-5.00 [facility] Comment on above: Order Comment: No: D o not add to previous drawNo collection time noted on specimen or requisition. The collection timerecorded is the time of receipt in the lab. Performed By: #### 1 0070, 83356, 99004 ####[facility] WBC Auto #/vol (Bld) 16.12 10*3/uL High 4.00-10.60 [facility] Comment on above: Order Comment: No: D o not add to previous drawNo collection time noted on specimen or requisition. The collection timerecorded is the time of receipt in the lab. Performed By: #### 1 0070, 08148, 99668 ####[facility] MAGNESIUM BLOODon 07-08-2018 Magnesium mass conc 2.3 mg/dL Normal 1.9-2.7 [facility] Comment on above: Order Comment: No: D o not add to previous drawNo collection time noted on specimen or requisition. The collection timerecorded is the time of receipt in the lab. Performed By: #### 1 0070, 42008, 50133 ####[facility] [place] [address], [facility] PHOSPHORUS BLOODon 8 Phosphate mass conc 4.7 mg/dL Normal 2.5-5.0 [facility] Comment on above: Order Comment: No: D o not add to previous drawNo collection time noted on specimen or requisition. The collection timerecorded is the time of receipt in the lab. Performed By: #### 1 0070, 98614, 43241 ####[facility] [facility].[address] POC GLUCOSE LABon 07-08-2018 Glucose mass conc 115 mg/dL High 70-100 [facility] Comment on above: Performed By: #### 0 0121 ####[facility] [facility] [place] [address], [facility] Glucose mass conc 183 mg/dL High 70-100 [facility] Comment on above: Performed By: #### 0 0121 ####[address] BASIC METABOLIC PANELon 06-10 Calcium mass conc 9.5 mg/dL Normal 8.6-10.3 [facility] Comment on above: Order Comment: No: D o not add to previous drawNo collection time noted on specimen or requisition. The collection timerecorded is the time of receipt in the lab. Performed By: #### 1 0070, 97025, 31004 ####[place] [facility] [place] [address], [facility] Chloride molar conc 99 mmol/L Normal 98-107 [facility] Comment on above: Order Comment: No: D o not add to previous drawNo collection time noted on specimen or requisition. The collection timerecorded is the time of receipt in the lab. Performed By: #### 1 0070, 69799, 03661 ####[facility] [facility] [place] [address], [facility] CO2 molar conc 24 mmol/L Normal 21-31 [facility] Comment on above: Order Comment: No: D o not add to previous drawNo collection time noted on specimen or requisition. The collection timerecorded is the time of receipt in the lab. Performed By: #### 1 0070, 60130, 40206 ####[facility] [place] [address], [facility] Creatinine mass conc 0.90 mg/dL Normal 0.60-1.20 [facility] Comment on above: Order Comment: No: D o not add to previous drawNo collection time noted on specimen or requisition. The collection timerecorded is the time of receipt in the lab. Performed By: #### 1 0070, 45332, 98923 ####[facility] [place] [address], [facility] GFR/1.73 sq M predicted among blacks MDRD vol rate/area (S/P/Bld) mL/min/{1.73_m2} Normal >60 [facility] Comment on above: Order Comment: No: D o not add to previous drawNo collection time noted on specimen or requisition. The collection timerecorded is the time of receipt in the lab. Result Comment: Calc ulation may not be valid for patients over 70 years Performed By: #### 1 0070, 38301, 02325 ####[address] [place] [address], [facility] GFR/1.73 sq M predicted among non-blacks MDRD vol rate/area (S/P/Bld) mL/min/{1.73_m2} Normal >60 [facility] Comment on above: Order Comment: No: D o not add to previous drawNo collection time noted on specimen or requisition. The collection timerecorded is the time of receipt in the lab. Result Comment: Calc ulation may not be valid for patients over 70 years Performed By: #### 1 0070, 37056, 07242 ####[address] [place] [address], [facility] Glucose mass conc 207 mg/dL High 70-100 [facility] Comment on above: Order Comment: No: D o not add to previous drawNo collection time noted on specimen or requisition. The collection timerecorded is the time of receipt in the lab. Performed By: #### 1 0070, 03556, 73236 ####[facility] Potassium molar conc 4.4 mmol/L Normal 3.5-5.1 [facility] Comment on above: Order Comment: No: D o not add to previous drawNo collection time noted on specimen or requisition. The collection timerecorded is the time of receipt in the lab. Performed By: #### 1 0, 24937, 47256 ####[facility] [facility].[address] Sodium molar conc 131 mmol/L Low 136-145 [facility] Comment on above: Order Comment: No: D o not add to previous drawNo collection time noted on specimen or requisition. The collection timerecorded is the time of receipt in the lab. Performed By: #### 1 0, 43907, 17657 ####[place] [address] [facility].[address] Urea nitrogen mass conc 19 mg/dL Normal 7-25 [facility] Comment on above: Order Comment: No: D o not add to previous drawNo collection time noted on specimen or requisition. The collection timerecorded is the time of receipt in the lab. Performed By: #### 1 0, 14971, 14535 ####[facility] CALCIUM IONIZED CBGLon 07-07 IONIZED CALCIUM 1.42 mmol/L High 1.12-1.30 [facility] Comment on above: Performed By: #### 1 0070, 96597, 56850 ####[facility] [facility] [place] [address], [facility] CBC W/DIFFon 07-07-2018 ABS BASOPHILS 0.0 10*3/uL Normal 0.0-0.2 [facility] Comment on above: Order Comment: No: D o not add to previous drawNo collection time noted on specimen or requisition. The collection timerecorded is the time of receipt in the lab. Performed By: #### 1 0, , 32875 ####[facility] ABS NEUTROPHILS 12.3 10*3/uL High 1.6-7.6 [facility] Comment on above: Order Comment: No: D o not add to previous drawNo collection time noted on specimen or requisition. The collection timerecorded is the time of receipt in the lab. Performed By: #### 1 0, , 48255 ####[facility] Basophils Auto #/vol (Bld) 0.0 % Normal 0.0-1.0 [facility] Comment on above: Order Comment: No: D o not add to previous drawNo collection time noted on specimen or requisition. The collection timerecorded is the time of receipt in the lab. Performed By: #### 1 0, , 18428 ####[facility] Eosinophils Auto #/vol (Bld) 1.1 10*3/uL High 0.0-0.5 [facility] Comment on above: Order Comment: No: D o not add to previous drawNo collection time noted on specimen or requisition. The collection timerecorded is the time of receipt in the lab. Performed By: #### 1 0, , 10025 ####[facility] Eosinophils/100 WBC Auto (Bld) 6.4 % High 0.0-6.0 [facility] Comment on above: Order Comment: No: D o not add to previous drawNo collection time noted on specimen or requisition. The collection timerecorded is the time of receipt in the lab. Performed By: #### 1 0, , 61558 ####[facility] Erythrocyte distribution width Auto Ratio (RBC) 13.6 % Normal 11.5-15.0 [facility] Comment on above: Order Comment: No: D o not add to previous drawNo collection time noted on specimen or requisition. The collection timerecorded is the time of receipt in the lab. Performed By: #### 1 0070, 37062, 52651 ####[facility] GIANT PLATELETS Present Normal [facility] Comment on above: Order Comment: No: D o not add to previous drawNo collection time noted on specimen or requisition. The collection timerecorded is the time of receipt in the lab. Performed By: #### 1 0070, 11742, 06533 ####[facility] Hematocrit Auto Volume Fraction (Bld) 31.8 % Low 36.0-45.0 [facility] Comment on above: Order Comment: No: D o not add to previous drawNo collection time noted on specimen or requisition. The collection timerecorded is the time of receipt in the lab. Performed By: #### 1 0070, 27300, 47106 ####[facility] Hemoglobin mass conc (Bld) 10.1 g/dL Low 12.0-15.0 [facility] Comment on above: Order Comment: No: D o not add to previous drawNo collection time noted on specimen or requisition. The collection timerecorded is the time of receipt in the lab. Performed By: #### 1 0070, 08800, 98677 ####[facility] Lymphocytes Auto #/vol (Bld) 2.7 10*3/uL Normal 1.2-4.0 [facility] Comment on above: Order Comment: No: D o not add to previous drawNo collection time noted on specimen or requisition. The collection timerecorded is the time of receipt in the lab. Performed By: #### 1 0, 54872, 28250 ####[facility] Lymphocytes/100 WBC Auto (Bld) 15.4 % Low 20.0-45.0 [facility] Comment on above: Order Comment: No: D o not add to previous drawNo collection time noted on specimen or requisition. The collection timerecorded is the time of receipt in the lab. Performed By: #### 1 0, , 52155 ####[facility] MCH Auto Entitic mass (RBC) 31.3 pg Normal 27.0-33.0 [facility] Comment on above: Order Comment: No: D o not add to previous drawNo collection time noted on specimen or requisition. The collection timerecorded is the time of receipt in the lab. Performed By: #### 1 0, , 59632 ####[facility] MCHC Auto mass conc (RBC) 31.8 g/dL Low 32.0-35.0 [facility] Comment on above: Order Comment: No: D o not add to previous drawNo collection time noted on specimen or requisition. The collection timerecorded is the time of receipt in the lab. Performed By: #### 1 0, 10431, 90446 ####[facility]3000 [facility].[address] MCV Auto Entitic volume (RBC) 98.5 fL High 82.0-98.0 [facility] Comment on above: Order Comment: No: D o not add to previous drawNo collection time noted on specimen or requisition. The collection timerecorded is the time of receipt in the lab. Performed By: #### 1 0070, 86228, 77803 ####[facility] METAMYELO 0.9 % High 0.0-0.0 [facility] Comment on above: Order Comment: No: D o not add to previous drawNo collection time noted on specimen or requisition. The collection timerecorded is the time of receipt in the lab. Performed By: #### 1 0070, 96468, 40287 ####[facility] Monocytes Auto #/vol (Bld) 1.0 10*3/uL Normal 0.1-1.0 [facility] Comment on above: Order Comment: No: D o not add to previous drawNo collection time noted on specimen or requisition. The collection timerecorded is the time of receipt in the lab. Performed By: #### 1 0070, 76001, 00329 ####[address] MONOS 5.5 % Normal 5.0-12.0 [facility] Comment on above: Order Comment: No: D o not add to previous drawNo collection time noted on specimen or requisition. The collection timerecorded is the time of receipt in the lab. Performed By: #### 1 0070, 86606, 26660 ####[address] MYELOS 0.9 % High .0-.0 [facility] Comment on above: Order Comment: No: D o not add to previous drawNo collection time noted on specimen or requisition. The collection timerecorded is the time of receipt in the lab. Performed By: #### 1 0070, 88105, 89991 ####[place] [address] [address] Neutrophils/100 WBC Auto (Bld) 70.9 % Normal 40.0-72.0 [facility] Comment on above: Order Comment: No: D o not add to previous drawNo collection time noted on specimen or requisition. The collection timerecorded is the time of receipt in the lab. Performed By: #### 1 0, 40817, 31011 ####[facility]3000 [facility].[address] Nucleated RBC/100 WBC Ratio (Bld) 0 % Normal 0-0 [facility] Comment on above: Order Comment: No: D o not add to previous drawNo collection time noted on specimen or requisition. The collection timerecorded is the time of receipt in the lab. Performed By: #### 1 0, , 72546 ####[facility]3000 [facility].[address] PLAT CNT 382 10*3/uL Normal 150-400 [facility] Comment on above: Order Comment: No: D o not add to previous drawNo collection time noted on specimen or requisition. The collection timerecorded is the time of receipt in the lab. Performed By: #### 1 0, , 53222 ####[facility]3000 [facility].[address] RBC Auto #/vol (Bld) 3.23 10*6/uL Low 3.80-5.00 [facility] Comment on above: Order Comment: No: D o not add to previous drawNo collection time noted on specimen or requisition. The collection timerecorded is the time of receipt in the lab. Performed By: #### 1 0, 42294, 63329 ####[facility]3000 [facility].[address] WBC Auto #/vol (Bld) 17.29 10*3/uL High 4.00-10.60 [facility] Comment on above: Order Comment: No: D o not add to previous drawNo collection time noted on specimen or requisition. The collection timerecorded is the time of receipt in the lab. Performed By: #### 1 0, 69232, 11020 ####[facility] [place] [address].[address] LIVER BATTERYon 07-07-2018 Albumin mass conc 3.0 g/dL Low 3.5-5.7 [facility] Comment on above: Order Comment: No: D o not add to previous drawNo collection time noted on specimen or requisition. The collection timerecorded is the time of receipt in the lab. Performed By: #### 1 0070, 00740, 65037 ####[facility] ALKALINE PHOSPH 99 IU/L Normal 34-104 [facility] Comment on above: Order Comment: No: D o not add to previous drawNo collection time noted on specimen or requisition. The collection timerecorded is the time of receipt in the lab. Performed By: #### 1 0070, 38131, 43988 ####[address] ALT enzyme act/vol 21 U/L Normal 7-52 [facility] Comment on above: Order Comment: No: D o not add to previous drawNo collection time noted on specimen or requisition. The collection timerecorded is the time of receipt in the lab. Performed By: #### 1 0070, 07646, 96353 ####[place] [address] [address] AST enzyme act/vol 23 U/L Normal 13-39 [facility] Comment on above: Order Comment: No: D o not add to previous drawNo collection time noted on specimen or requisition. The collection timerecorded is the time of receipt in the lab. Performed By: #### 1 0070, 77312, 44773 ####[address] Bilirubin mass conc 0.5 mg/dL Normal 0.3-1.0 [facility] Comment on above: Order Comment: No: D o not add to previous drawNo collection time noted on specimen or requisition. The collection timerecorded is the time of receipt in the lab. Performed By: #### 1 0070, 33246, 59094 ####[facility] [facility] [place] [address], [facility] Bilirubin.direct mass conc 0.3 mg/dL High 0.0-0.2 [facility] Comment on above: Order Comment: No: D o not add to previous drawNo collection time noted on specimen or requisition. The collection timerecorded is the time of receipt in the lab. Performed By: #### 1 0070, 42539, 02855 ####[facility]3000 [facility].[address] Protein mass conc 6.5 g/dL Normal 6.0-8.3 [facility] Comment on above: Order Comment: No: D o not add to previous drawNo collection time noted on specimen or requisition. The collection timerecorded is the time of receipt in the lab. Performed By: #### 1 0, 04500, 01501 ####[facility] [facility] [place] [address], [facility] MAGNESIUM BLOODon 07-07-2018 Magnesium mass conc 1.6 mg/dL Low 1.9-2.7 [facility] Comment on above: Order Comment: No: D o not add to previous drawNo collection time noted on specimen or requisition. The collection timerecorded is the time of receipt in the lab. Performed By: #### 1 0070, 31313, 43458 ####[facility] [place] [address], [facility] PHOSPHORUS BLOODon 8 Phosphate mass conc 3.4 mg/dL Normal 2.5-5.0 [facility] Comment on above: Order Comment: No: D o not add to previous drawNo collection time noted on specimen or requisition. The collection timerecorded is the time of receipt in the lab. Performed By: #### 1 0070, 98266, 83815 ####[facility] [place] [address], [place] POC GLUCOSE LABon 07-07-2018 Glucose mass conc 157 mg/dL High 70-100 [facility] Comment on above: Performed By: #### 1 0070, 43352, 16879 ####[facility] [place] [address], [place] Glucose mass conc 196 mg/dL High 70-100 [facility] Comment on above: Performed By: #### 1 0070, 00570, 57239 ####[facility] [place] [address], [place] Glucose mass conc 190 mg/dL High 70-100 [facility] Comment on above: Performed By: #### 1 0070, 65859, 78721 ####[facility] [place] [address], [place] Glucose mass conc 189 mg/dL High 70-100 [facility] Comment on above: Performed By: #### 1 0070, 85889, 68940 ####[facility] [place] [address], [facility] BASIC METABOLIC PANELon 06-09 Calcium mass conc 9.3 mg/dL Normal 8.6-10.3 [facility] Comment on above: Order Comment: No: D o not add to previous draw Performed By: #### 8 5499 ####[facility] [place] [address], [place] Chloride molar conc 100 mmol/L Normal 98-107 [facility] Comment on above: Order Comment: No: D o not add to previous draw Performed By: #### 8 1629 ####[facility] [place] [address], [place] CO2 molar conc 25 mmol/L Normal 21-31 [facility] Comment on above: Order Comment: No: D o not add to previous draw Performed By: #### 8 8279 ####[facility] [place] [address], [facility] Creatinine mass conc 0.97 mg/dL Normal 0.60-1.20 [facility] Comment on above: Order Comment: No: D o not add to previous draw Performed By: #### 8 5499 ####[facility] [place] [address], [facility] GFR/1.73 sq M predicted among blacks MDRD vol rate/area (S/P/Bld) mL/min/{1.73_m2} Normal >60 [facility] Comment on above: Order Comment: No: D o not add to previous draw Result Comment: Calc ulation may not be valid for patients over 70 years Performed By: #### 8 5499 ####[facility] [place] [address], [facility] GFR/1.73 sq M predicted among non-blacks MDRD vol rate/area (S/P/Bld) 56 ml/min/1.73sq m Abnormal >60 [facility] Comment on above: Order Comment: No: D o not add to previous draw Result Comment: Calc ulation may not be valid for patients over 70 years Performed By: #### 8 5499 ####[facility] [place] [address], [facility] Glucose mass conc 213 mg/dL High 70-100 [facility] Comment on above: Order Comment: No: D o not add to previous draw Performed By: #### 8 5499 ####[facility] [place] [address], [place] Potassium molar conc 4.1 mmol/L Normal 3.5-5.1 [facility] Comment on above: Order Comment: No: D o not add to previous draw Performed By: #### 8 5499 ####[facility] [place] [address], [place] Sodium molar conc 132 mmol/L Low 136-145 [facility] Comment on above: Order Comment: No: D o not add to previous draw Performed By: #### 8 5499 ####[facility] [facility] [place] [address], [facility] Urea nitrogen mass conc 19 mg/dL Normal 7-25 [facility] Comment on above: Order Comment: No: D o not add to previous draw Performed By: #### 8 5499 ####[facility]3000 [facility].[address] MAGNESIUM BLOODon 07-06-2018 Magnesium mass conc 1.8 mg/dL Low 1.9-2.7 [facility] Comment on above: Order Comment: No: D o not add to previous drawNo collection time noted on specimen or requisition. The collection timerecorded is the time of receipt in the lab. Performed By: #### 1 0070, 43837, 20301 ####[facility] [facility].[address] PHOSPHORUS BLOODon 8 Phosphate mass conc 3.8 mg/dL Normal 2.5-5.0 [facility] Comment on above: Order Comment: No: D o not add to previous drawNo collection time noted on specimen or requisition. The collection timerecorded is the time of receipt in the lab. Performed By: #### 1 0070, 59777, 53916 ####[facility] [facility] [place] [address], [facility] POC GLUCOSE LABon 07-06-2018 Glucose mass conc 217 mg/dL High 70-100 [facility] Comment on above: Performed By: #### 1 0070, 80752, 02135 ####[facility] [facility] [place] [address], [facility] Glucose mass conc 197 mg/dL High 70-100 [facility] Comment on above: Performed By: #### 1 0070, 49792, 95034 ####[facility] [address], [facility] Glucose mass conc 160 mg/dL High 70-100 [facility] Comment on above: Performed By: #### 8 5499 ####[facility] [place] [address], [facility] TRIGLYCERIDES BLOODon 2017 Triglyceride mass conc 256 mg/dL High 40-149 [facility] Comment on above: Order Comment: No: D o not add to previous draw Result Comment: TRIG LYCERIDE REFERENCE RANGE:20 YEARS AND OLDER CARDIOVASCULAR RISKLESS THAN 150 mg/dl LOW [id number] TO 199 mg/dl BORDERLINE [id number] mg/dl AND GREATER HIGH RISK Performed By: #### 8 5499 ####[address] BASIC METABOLIC PANELon 06-09 Calcium mass conc 8.7 mg/dL Normal 8.6-10.3 [facility] Comment on above: Order Comment: No: D o not add to previous draw Performed By: #### 8 5499 ####[facility] [facility] [place] [address], [facility] Chloride molar conc 105 mmol/L Normal 98-107 [facility] Comment on above: Order Comment: No: D o not add to previous draw Performed By: #### 8 5499 ####[facility] [address], [facility] CO2 molar conc 24 mmol/L Normal 21-31 [facility] Comment on above: Order Comment: No: D o not add to previous draw Performed By: #### 8 5499 ####[facility] [address], [facility] Creatinine mass conc 1.05 mg/dL Normal 0.60-1.20 [facility] Comment on above: Order Comment: No: D o not add to previous draw Performed By: #### 8 5499 ####[facility] [facility] [place] [address], [facility] GFR/1.73 sq M predicted among blacks MDRD vol rate/area (S/P/Bld) mL/min/{1.73_m2} Normal >60 [facility] Comment on above: Order Comment: No: D o not add to previous draw Result Comment: Calc ulation may not be valid for patients over 70 years Performed By: #### 8 5499 ####[facility] [facility] [place] [address], [facility] GFR/1.73 sq M predicted among non-blacks MDRD vol rate/area (S/P/Bld) 50 ml/min/1.73sq m Abnormal >60 [facility] Comment on above: Order Comment: No: D o not add to previous draw Result Comment: Calc ulation may not be valid for patients over 70 years Performed By: #### 8 5499 ####[facility] [facility] [place] [address], [facility] Glucose mass conc 185 mg/dL High 70-100 [facility] Comment on above: Order Comment: No: D o not add to previous draw Performed By: #### 8 5499 ####[facility] [facility] [place] [address], [facility] Potassium molar conc 3.8 mmol/L Normal 3.5-5.1 [facility] Comment on above: Order Comment: No: D o not add to previous draw Performed By: #### 8 5499 ####[facility] [facility] [place] [address], [place] Sodium molar conc 138 mmol/L Normal 136-145 [facility] Comment on above: Order Comment: No: D o not add to previous draw Performed By: #### 8 5499 ####[facility] [facility] [place] [address], [facility] Urea nitrogen mass conc 18 mg/dL Normal 7-25 [facility] Comment on above: Order Comment: No: D o not add to previous draw Performed By: #### 8 5499 ####[facility] CBC W/DIFFon 07-05-2018 ABS BASOPHILS 0.0 10*3/uL Normal 0.0-0.2 [facility] Comment on above: Order Comment: No: D o not add to previous draw Performed By: #### 8 5499 ####[facility] ABS NEUTROPHILS 9.5 10*3/uL High 1.6-7.6 [facility] Comment on above: Order Comment: No: D o not add to previous draw Performed By: #### 8 5499 ####[facility] Basophils Auto #/vol (Bld) 0.0 % Normal 0.0-1.0 [facility] Comment on above: Order Comment: No: D o not add to previous draw Performed By: #### 8 5499 ####[facility] [place] [address], [facility] Eosinophils Auto #/vol (Bld) 0.2 10*3/uL Normal 0.0-0.5 [facility] Comment on above: Order Comment: No: D o not add to previous draw Performed By: #### 8 5499 ####[facility] Eosinophils/100 WBC Auto (Bld) 1.8 % Normal 0.0-6.0 [facility] Comment on above: Order Comment: No: D o not add to previous draw Performed By: #### 8 5499 ####[facility] Erythrocyte distribution width Auto Ratio (RBC) 13.8 % Normal 11.5-15.0 [facility] Comment on above: Order Comment: No: D o not add to previous draw Performed By: #### 8 5499 ####[facility] Hematocrit Auto Volume Fraction (Bld) 28.7 % Low 36.0-45.0 [facility] Comment on above: Order Comment: No: D o not add to previous draw Performed By: #### 8 5499 ####[facility] Hemoglobin mass conc (Bld) 8.9 g/dL Low 12.0-15.0 [facility] Comment on above: Order Comment: No: D o not add to previous draw Performed By: #### 8 5499 ####[facility] [place] [address] Lymphocytes Auto #/vol (Bld) 1.3 10*3/uL Normal 1.2-4.0 [facility] Comment on above: Order Comment: No: D o not add to previous draw Performed By: #### 8 5499 ####[facility] [place] [address] Lymphocytes/100 WBC Auto (Bld) 10.9 % Low 20.0-45.0 [facility] Comment on above: Order Comment: No: D o not add to previous draw Performed By: #### 8 5499 ####[facility] [place] [address] MCH Auto Entitic mass (RBC) 30.5 pg Normal 27.0-33.0 [facility] Comment on above: Order Comment: No: D o not add to previous draw Performed By: #### 8 5499 ####[facility] [place] [address] MCHC Auto mass conc (RBC) 31.0 g/dL Low 32.0-35.0 [facility] Comment on above: Order Comment: No: D o not add to previous draw Performed By: #### 8 5499 ####[facility] MCV Auto Entitic volume (RBC) 98.3 fL High 82.0-98.0 [facility] Comment on above: Order Comment: No: D o not add to previous draw Performed By: #### 8 5499 ####[facility] METAMYELO 0.9 % High 0.0-0.0 [facility] Comment on above: Order Comment: No: D o not add to previous draw Performed By: #### 8 5499 ####[facility] Monocytes Auto #/vol (Bld) 0.8 10*3/uL Normal 0.1-1.0 [facility] Comment on above: Order Comment: No: D o not add to previous draw Performed By: #### 8 5499 ####[facility] MONOS 6.4 % Normal 5.0-12.0 [facility] Comment on above: Order Comment: No: D o not add to previous draw Performed By: #### 8 5499 ####[facility] MYELOS 0.9 % High .0-.0 [facility] Comment on above: Order Comment: No: D o not add to previous draw Performed By: #### 8 5499 ####[facility] Neutrophils/100 WBC Auto (Bld) 79.1 % High 40.0-72.0 [facility] Comment on above: Order Comment: No: D o not add to previous draw Performed By: #### 8 5499 ####[facility] Nucleated RBC/100 WBC Ratio (Bld) 0 % Normal 0-0 [facility] Comment on above: Order Comment: No: D o not add to previous draw Performed By: #### 8 5499 ####[facility] [facility] [place] [address], [facility] PLAT CNT 284 10*3/uL Normal 150-400 [facility] Comment on above: Order Comment: No: D o not add to previous draw Performed By: #### 8 5499 ####[facility] [facility].[address] RBC Auto #/vol (Bld) 2.92 10*6/uL Low 3.80-5.00 [facility] Comment on above: Order Comment: No: D o not add to previous draw Performed By: #### 8 5499 ####[facility] [facility].[address] WBC Auto #/vol (Bld) 12.05 10*3/uL High 4.00-10.60 [facility] Comment on above: Order Comment: No: D o not add to previous draw Performed By: #### 8 5499 ####[facility] [facility].[address] MAGNESIUM BLOODon 07-05-2018 Magnesium mass conc 1.8 mg/dL Low 1.9-2.7 [facility] Comment on above: Order Comment: No: D o not add to previous draw Performed By: #### 8 5499 ####[facility] [address], [facility] PHOSPHORUS BLOODon 8 Phosphate mass conc 3.4 mg/dL Normal 2.5-5.0 [facility] Comment on above: Order Comment: No: D o not add to previous draw Performed By: #### 8 5499 ####[facility] [place] [address], [facility] POC GLUCOSE LABon 07-05-2018 Glucose mass conc 162 mg/dL High 70-100 [facility] Comment on above: Performed By: #### 8 5499 ####[facility] [place] [address], [facility] Glucose mass conc 198 mg/dL High 70-100 [facility] Comment on above: Performed By: #### 8 5499 ####[facility] [place] [address], [facility] TRIGLYCERIDES BLOODon 2017 Triglyceride mass conc 204 mg/dL High 40-149 [facility] Comment on above: Order Comment: No: D o not add to previous draw Result Comment: TRIG LYCERIDE REFERENCE RANGE:20 YEARS AND OLDER CARDIOVASCULAR RISKLESS THAN 150 mg/dl LOW [id number] TO 199 mg/dl BORDERLINE [id number] mg/dl AND GREATER HIGH RISK Performed By: #### 8 [id number] ####[facility] [facility] [place] [address], [facility] BASIC METABOLIC PANELon 06-09 Calcium mass conc 8.8 mg/dL Normal 8.6-10.3 [facility] Comment on above: Order Comment: No: D o not add to previous draw Performed By: #### 8 [id number] ####[facility] [place] [address], [facility] Chloride molar conc 105 mmol/L Normal 98-107 [facility] Comment on above: Order Comment: No: D o not add to previous draw Performed By: #### 8 [id number] ####[facility] [place] [address], [facility] CO2 molar conc 22 mmol/L Normal 21-31 [facility] Comment on above: Order Comment: No: D o not add to previous draw Performed By: #### 8 [id number] ####[facility] [facility] [place] [address], [facility] Creatinine mass conc 1.07 mg/dL Normal 0.60-1.20 [facility] Comment on above: Order Comment: No: D o not add to previous draw Performed By: #### 8 [id number] ####[facility] [place] [address], [place] GFR/1.73 sq M predicted among blacks MDRD vol rate/area (S/P/Bld) mL/min/{1.73_m2} Normal >60 [facility] Comment on above: Order Comment: No: D o not add to previous draw Result Comment: Calc ulation may not be valid for patients over 70 years Performed By: #### 8 [id number] ####[facility] [facility] [place] [address], [facility] GFR/1.73 sq M predicted among non-blacks MDRD vol rate/area (S/P/Bld) 50 ml/min/1.73sq m Abnormal >60 [facility] Comment on above: Order Comment: No: D o not add to previous draw Result Comment: Calc ulation may not be valid for patients over 70 years Performed By: #### 8 [id number] ####[facility] [facility] [place] [address], [facility] Glucose mass conc 188 mg/dL High 70-100 [facility] Comment on above: Order Comment: No: D o not add to previous draw Performed By: #### 8 [id number] ####[facility] [facility] [place] [address], [place] Potassium molar conc 3.7 mmol/L Normal 3.5-5.1 [facility] Comment on above: Order Comment: No: D o not add to previous draw Performed By: #### 8 [id number] ####[facility] [facility] [address], [place] Sodium molar conc 136 mmol/L Normal 136-145 [facility] Comment on above: Order Comment: No: D o not add to previous draw Performed By: #### 8 [id number] ####[facility] [facility].[address] Urea nitrogen mass conc 14 mg/dL Normal 7-25 [facility] Comment on above: Order Comment: No: D o not add to previous draw Performed By: #### 8 [id number] ####[facility] [facility].[address] CBC W/DIFFon 07-04-2018 ABS BASOPHILS 0.0 10*3/uL Normal 0.0-0.2 [facility] Comment on above: Performed By: #### 8 [id number] ####[facility] [facility].[address] ABS NEUTROPHILS 9.7 10*3/uL High 1.6-7.6 [facility] Comment on above: Performed By: #### 8 [id number] ####[facility] [facility].[address] Basophils Auto #/vol (Bld) 0.0 % Normal 0.0-1.0 [facility] Comment on above: Performed By: #### 8 [id number] ####[facility] [facility].[address] Eosinophils Auto #/vol (Bld) 0.2 10*3/uL Normal 0.0-0.5 [facility] Comment on above: Performed By: #### 8 5499 ####[facility] [facility].[address] Eosinophils/100 WBC Auto (Bld) 1.8 % Normal 0.0-6.0 [facility] Comment on above: Performed By: #### 8 5499 ####[facility] [facility].[address] Erythrocyte distribution width Auto Ratio (RBC) 13.7 % Normal 11.5-15.0 [facility] Comment on above: Performed By: #### 8 [id number] ####[facility] GIANT PLATELETS Present Normal [facility] Comment on above: Performed By: #### 8 [id number] ####[facility] Hematocrit Auto Volume Fraction (Bld) 31.4 % Low 36.0-45.0 [facility] Comment on above: Performed By: #### 8 5499 ####[facility] Hemoglobin mass conc (Bld) 10.0 g/dL Low 12.0-15.0 [facility] Comment on above: Performed By: #### 8 5499 ####[facility] Lymphocytes Auto #/vol (Bld) 1.5 10*3/uL Normal 1.2-4.0 [facility] Comment on above: Performed By: #### 8 5499 ####[facility] Lymphocytes/100 WBC Auto (Bld) 11.8 % Low 20.0-45.0 [facility] Comment on above: Performed By: #### 8 5499 ####[facility] MCH Auto Entitic mass (RBC) 30.8 pg Normal 27.0-33.0 [facility] Comment on above: Performed By: #### 8 5499 ####[facility] MCHC Auto mass conc (RBC) 31.8 g/dL Low 32.0-35.0 [facility] Comment on above: Performed By: #### 8 5499 ####[facility] [facility].[address] MCV Auto Entitic volume (RBC) 96.6 fL Normal 82.0-98.0 [facility] Comment on above: Performed By: #### 8 5499 ####[facility] [facility].[address] METAMYELO 0.9 % High 0.0-0.0 [facility] Comment on above: Performed By: #### 8 5499 ####[facility] Monocytes Auto #/vol (Bld) 1.0 10*3/uL Normal 0.1-1.0 [facility] Comment on above: Performed By: #### 8 5499 ####[facility] MONOS 8.2 % Normal 5.0-12.0 [facility] Comment on above: Performed By: #### 8 5499 ####[facility] Neutrophils/100 WBC Auto (Bld) 77.3 % High 40.0-72.0 [facility] Comment on above: Performed By: #### 8 5499 ####[facility] NRBC SCAN Present Normal [facility] Comment on above: Performed By: #### 8 5499 ####[facility] [facility].[address] Nucleated RBC/100 WBC Ratio (Bld) 0 % Normal 0-0 [facility] Comment on above: Performed By: #### 8 [id number] ####[facility] [facility] [place] [address], [facility] PLAT CNT 300 10*3/uL Normal 150-400 [facility] Comment on above: Performed By: #### 8 5499 ####[facility] [place] [address], [facility] RBC Auto #/vol (Bld) 3.25 10*6/uL Low 3.80-5.00 [facility] Comment on above: Performed By: #### 8 5499 ####[facility] WBC Auto #/vol (Bld) 12.52 10*3/uL High 4.00-10.60 [facility] Comment on above: Performed By: #### 8 5499 ####[facility] MAGNESIUM BLOODon 07-04-2018 Magnesium mass conc 1.9 mg/dL Normal 1.9-2.7 [facility] Comment on above: Order Comment: No: D o not add to previous draw Performed By: #### 8 5499 ####[facility] PHOSPHORUS BLOODon 8 Phosphate mass conc 2.8 mg/dL Normal 2.5-5.0 [facility] Comment on above: Order Comment: No: D o not add to previous draw Performed By: #### 8 5499 ####[facility] POC GLUCOSE LABon 07-04-2018 Glucose mass conc 161 mg/dL High 70-100 [facility] Comment on above: Performed By: #### 8 5499 ####[facility] Glucose mass conc 169 mg/dL High 70-100 [facility] Comment on above: Performed By: #### 8 5499 ####[facility] [place] [address], [place] Glucose mass conc 222 mg/dL High 70-100 [facility] Comment on above: Performed By: #### 8 5499 ####[facility] [place] [address], [place] Glucose mass conc 186 mg/dL High 70-100 [facility] Comment on above: Performed By: #### 8 5499 ####[facility] [place] [address], [place] Glucose mass conc 153 mg/dL High 70-100 [facility] Comment on above: Performed By: #### 8 5499 ####[facility] [place] [address], [facility] BASIC METABOLIC PANELon 08-2 Calcium mass conc 8.1 mg/dL Low 8.6-10.3 [facility] Comment on above: Order Comment: No: D o not add to previous draw Performed By: #### 8 5499 ####[facility] [place] [address], [place] Chloride molar conc 104 mmol/L Normal 98-107 [facility] Comment on above: Order Comment: No: D o not add to previous draw Performed By: #### 8 5499 ####[facility] [place] [address], [place] CO2 molar conc 21 mmol/L Normal 21-31 [facility] Comment on above: Order Comment: No: D o not add to previous draw Performed By: #### 8 5499 ####[facility] [place] [address], [place] Creatinine mass conc 1.12 mg/dL Normal 0.60-1.20 [facility] Comment on above: Order Comment: No: D o not add to previous draw Performed By: #### 8 5499 ####[facility] [place] [address], [place] GFR/1.73 sq M predicted among blacks MDRD vol rate/area (S/P/Bld) 57 ml/min/1.73sq m Abnormal >60 [facility] Comment on above: Order Comment: No: D o not add to previous draw Result Comment: Calc ulation may not be valid for patients over 70 years Performed By: #### 8 5499 ####[facility] [place] [address], [facility] GFR/1.73 sq M predicted among non-blacks MDRD vol rate/area (S/P/Bld) 47 ml/min/1.73sq m Abnormal >60 [facility] Comment on above: Order Comment: No: D o not add to previous draw Result Comment: Calc ulation may not be valid for patients over 70 years Performed By: #### 8 5499 ####[facility] [facility] [address], [facility] Glucose mass conc 246 mg/dL High 70-100 [facility] Comment on above: Order Comment: No: D o not add to previous draw Performed By: #### 8 5499 ####[facility] [facility] [address], [place] Potassium molar conc 4.4 mmol/L Normal 3.5-5.1 [facility] Comment on above: Order Comment: No: D o not add to previous draw Performed By: #### 8 5499 ####[facility] [place] [address], [place] Sodium molar conc 132 mmol/L Low 136-145 [facility] Comment on above: Order Comment: No: D o not add to previous draw Performed By: #### 8 5499 ####[facility] [place] [address], [place] Urea nitrogen mass conc 10 mg/dL Normal 7-25 [facility] Comment on above: Order Comment: No: D o not add to previous draw Performed By: #### 8 5499 ####[facility] CBC COMPLETE BLOOD COUNTon 0 07-03-2018 Erythrocyte distribution width Auto Ratio (RBC) 13.7 % Normal 11.5-15.0 [facility] Comment on above: Order Comment: No: D o not add to previous draw Performed By: #### 8 [id number] ####[facility] [facility] Hematocrit Auto Volume Fraction (Bld) 36.3 % Normal 36.0-45.0 [facility] Comment on above: Order Comment: No: D o not add to previous draw Performed By: #### 8 5499 ####[facility] Hemoglobin mass conc (Bld) 11.3 g/dL Low 12.0-15.0 [facility] Comment on above: Order Comment: No: D o not add to previous draw Performed By: #### 8 5499 ####[facility] [facility].[address] MCH Auto Entitic mass (RBC) 30.5 pg Normal 27.0-33.0 [facility] Comment on above: Order Comment: No: D o not add to previous draw Performed By: #### 8 5499 ####[facility] [facility].[address] MCHC Auto mass conc (RBC) 31.1 g/dL Low 32.0-35.0 [facility] Comment on above: Order Comment: No: D o not add to previous draw Performed By: #### 8 5499 ####[facility] MCV Auto Entitic volume (RBC) 97.8 fL Normal 82.0-98.0 [facility] Comment on above: Order Comment: No: D o not add to previous draw Performed By: #### 8 5499 ####[facility] Nucleated RBC/100 WBC Ratio (Bld) 0 % Normal 0-0 [facility] Comment on above: Order Comment: No: D o not add to previous draw Performed By: #### 8 5499 ####[facility] [address], [facility] PLAT CNT 313 10*3/uL Normal 150-400 [facility] Comment on above: Order Comment: No: D o not add to previous draw Performed By: #### 8 5499 ####[facility] RBC Auto #/vol (Bld) 3.71 10*6/uL Low 3.80-5.00 [facility] Comment on above: Order Comment: No: D o not add to previous draw Performed By: #### 8 5499 ####[facility] WBC Auto #/vol (Bld) 9.64 10*3/uL Normal 4.00-10.60 [facility] Comment on above: Order Comment: No: D o not add to previous draw Performed By: #### 8 5499 ####[facility] LIVER BATTERYon 07-03-2018 Albumin mass conc 2.8 g/dL Low 3.5-5.7 [facility] Comment on above: Order Comment: No: D o not add to previous draw Performed By: #### 8 5499 ####[facility] [place] [address], [facility] ALKALINE PHOSPH 87 IU/L Normal 34-104 [facility] Comment on above: Order Comment: No: D o not add to previous draw Performed By: #### 8 5499 ####[facility] [place] [address], [facility] ALT enzyme act/vol 17 U/L Normal 7-52 [facility] Comment on above: Order Comment: No: D o not add to previous draw Performed By: #### 8 5499 ####[facility] [place] [address], [place] AST enzyme act/vol 17 U/L Normal 13-39 [facility] Comment on above: Order Comment: No: D o not add to previous draw Performed By: #### 8 5499 ####[facility] [place] [address], [facility] Bilirubin mass conc 1.0 mg/dL Normal 0.3-1.0 [facility] Comment on above: Order Comment: No: D o not add to previous draw Performed By: #### 8 5499 ####[facility] [place] [address], [facility] Bilirubin.direct mass conc 0.6 mg/dL High 0.0-0.2 [facility] Comment on above: Order Comment: No: D o not add to previous draw Performed By: #### 8 5499 ####[facility] [place] [address], [facility] Protein mass conc 5.6 g/dL Low 6.0-8.3 [facility] Comment on above: Order Comment: No: D o not add to previous draw Performed By: #### 8 5499 ####[facility] [place] [address], [facility] MAGNESIUM BLOODon 07-03-2018 Magnesium mass conc 2.3 mg/dL Normal 1.9-2.7 [facility] Comment on above: Order Comment: No: D o not add to previous draw Performed By: #### 8 5499 ####[facility] Operative Reporton 8 Operative Report MR#: [id number] [facility] Name[facility] Vidhya Giordano Room #: 3AB [id number] Discharge Date: Birthdate: 1940 OPERATIVE REPORTDATE OF SURGERY: 07/02/2018SURGEON: Meg Abebe M.D.PREOPERATIVE DIAGNOSIS: Status post repair of enterocutaneous fistula andanastomosis leak.POSTOPERATIVE DIAGNOSIS: Status post repair of enterocutaneous fistula andanastomosis leak.OPERATION PERFORMED: Exploratory laparotomy, extensive lysis of adhesionmore than 2 hours, small-bowel resection with functional nlt-qi-jxhpplhctqvixz and repair of a transverse colon iatrogenic [...] time-out, the incision staple was reopened and bezckkrlyqooerhyc-kg-qlwtk suture was removed. The fascia was opened. [...] divided with the LigaSure. Then, a functional elk-uw-wiobocmbdxpnmk was performed by a blue load 6 [...] 07/02/2018/07:16 P/Meg Abebe M.D.Date Trans: 07/02/2018 10:15 P/[id number] c: Kalin Santos D.O. [address] [place] [id number] Normal [facility] PHOSPHORUS BLOODon 8 Phosphate mass conc 2.3 mg/dL Low 2.5-5.0 [facility] Comment on above: Order Comment: No: D o not add to previous draw Performed By: #### 8 [id number] ####[facility] [place] [address], [facility] POC GLUCOSE LABon 07-03-2018 Glucose mass conc 169 mg/dL High 70-100 [facility] Comment on above: Performed By: #### 8 5499 ####[facility] [address], [facility] Glucose mass conc 141 mg/dL High 70-100 [facility] Comment on above: Performed By: #### 8 5499 ####[facility] [place] [address], [facility] Glucose mass conc 221 mg/dL High 70-100 [facility] Comment on above: Performed By: #### 8 5499 ####[facility] [place] [address], [facility] *BLOOD CULTUREon 07-02-2018 Bacteria identified in Blood by Culture Clinical Report: (D) Specimen: BLOOD CULTURE Collected: 07/02/2018 21:59 Status: Final Last Updated: 07/08/2018 07:42 CULT RES (Final) No Growth Day 5 Normal [facility] Comment on above: Performed By: #### 8 [id number] ####[facility] [facility] [place] [address], [facility] Bacteria identified in Blood by Culture Clinical Report: (D) Specimen: BLOOD CULTURE Collected: 07/02/2018 21:50 Status: Final Last Updated: 07/08/2018 07:42 (1) left hand CULT RES (Final) No Growth Day 5 Normal [facility] Comment on above: Order Comment: left hand Performed By: #### 8 [id number] ####[facility] [place] [address], [facility] BASIC METABOLIC PANELon 06-09 Calcium mass conc 8.2 mg/dL Low 8.6-10.3 [facility] Comment on above: Order Comment: No: D o not add to previous draw Performed By: #### 5 6101, 77073 ####[facility] [place] [address], [facility] Chloride molar conc 103 mmol/L Normal 98-107 [facility] Comment on above: Order Comment: No: D o not add to previous draw Performed By: #### 5 0601, 72053 ####[facility] [place] [address], [facility] CO2 molar conc 20 mmol/L Low 21-31 [facility] Comment on above: Order Comment: No: D o not add to previous draw Performed By: #### 5 6101, 15009 ####[facility] [place] [address], [facility] Creatinine mass conc 1.09 mg/dL Normal 0.60-1.20 [facility] Comment on above: Order Comment: No: D o not add to previous draw Performed By: #### 5 6101, 22406 ####[facility] [place] [address], [facility] GFR/1.73 sq M predicted among blacks MDRD vol rate/area (S/P/Bld) 59 ml/min/1.73sq m Abnormal >60 [facility] Comment on above: Order Comment: No: D o not add to previous draw Result Comment: Calc ulation may not be valid for patients over 70 years Performed By: #### 5 6101, 62304 ####[facility] [place] [address], [facility] GFR/1.73 sq M predicted among non-blacks MDRD vol rate/area (S/P/Bld) 48 ml/min/1.73sq m Abnormal >60 [facility] Comment on above: Order Comment: No: D o not add to previous draw Result Comment: Calc ulation may not be valid for patients over 70 years Performed By: #### 5 0965, 70540 ####[facility] [place] [address], [facility] Glucose mass conc 272 mg/dL High 70-100 [facility] Comment on above: Order Comment: No: D o not add to previous draw Performed By: #### 5 610, 49411 ####[facility] [place] [address], [place] Potassium molar conc 3.6 mmol/L Normal 3.5-5.1 [facility] Comment on above: Order Comment: No: D o not add to previous draw Performed By: #### 5 610, 11885 ####[facility] [place] [address], [place] Sodium molar conc 132 mmol/L Low 136-145 [facility] Comment on above: Order Comment: No: D o not add to previous draw Performed By: #### 5 610, 66409 ####[facility] [place] [address], [facility] Urea nitrogen mass conc 10 mg/dL Normal 7-25 [facility] Comment on above: Order Comment: No: D o not add to previous draw Performed By: #### 5 610, 20896 ####[facility] [place] [address], [place] Calcium mass conc 8.4 mg/dL Low 8.6-10.3 [facility] Comment on above: Order Comment: No: D o not add to previous draw Performed By: #### 5 610, 56860 ####[facility] [place] [address], [place] Chloride molar conc 106 mmol/L Normal 98-107 [facility] Comment on above: Order Comment: No: D o not add to previous draw Performed By: #### 5 610, 20853 ####[facility] [place] [address], [place] CO2 molar conc 24 mmol/L Normal 21-31 [facility] Comment on above: Order Comment: No: D o not add to previous draw Performed By: #### 5 610, 65181 ####[facility] [place] [address], [facility] Creatinine mass conc 1.12 mg/dL Normal 0.60-1.20 [facility] Comment on above: Order Comment: No: D o not add to previous draw Performed By: #### 5 610, 53576 ####[facility] [place] [address], [facility] GFR/1.73 sq M predicted among blacks MDRD vol rate/area (S/P/Bld) 57 ml/min/1.73sq m Abnormal >60 [facility] Comment on above: Order Comment: No: D o not add to previous draw Result Comment: Calc ulation may not be valid for patients over 70 years Performed By: #### 5 610, 18410 ####[facility] [place] [address], [facility] GFR/1.73 sq M predicted among non-blacks MDRD vol rate/area (S/P/Bld) 47 ml/min/1.73sq m Abnormal >60 The [facility] Comment on above: Order Comment: No: D o not add to previous draw Result Comment: Calc ulation may not be valid for patients over 70 years Performed By: #### 5 3334, 93269 ####[facility] [place] [address], [facility] Glucose mass conc 149 mg/dL High 70-100 [facility] Comment on above: Order Comment: No: D o not add to previous draw Performed By: #### 5 0496, 29054 ####[facility] [place] [address], [facility] Potassium molar conc 3.8 mmol/L Normal 3.5-5.1 [facility] Comment on above: Order Comment: No: D o not add to previous draw Performed By: #### 5 610, 43929 ####[facility] [place] [address], [place] Sodium molar conc 136 mmol/L Normal 136-145 [facility] Comment on above: Order Comment: No: D o not add to previous draw Performed By: #### 5 610, 90503 ####[facility] Urea nitrogen mass conc 12 mg/dL Normal 7-25 [facility] Comment on above: Order Comment: No: D o not add to previous draw Performed By: #### 5 610, 84708 ####[facility] CBC COMPLETE BLOOD COUNTon 0 07-02-2018 Erythrocyte distribution width Auto Ratio (RBC) 13.8 % Normal 11.5-15.0 [facility] Comment on above: Order Comment: No: D o not add to previous [id number]- PATIENT NOT IN ROOM; STILL IN O.R. SHOULD BE RN DRAW, PER RN-TECH LM Performed By: #### 5 610, 19356 ####[facility] Hematocrit Auto Volume Fraction (Bld) 36.9 % Normal 36.0-45.0 [facility] Comment on above: Order Comment: No: D o not add to previous [id number]- PATIENT NOT IN ROOM; STILL IN O.R. SHOULD BE RN DRAW, PER RN-TECH LM Performed By: #### 5 6101, 23714 ####[facility] [facility].[address] Hemoglobin mass conc (Bld) 11.6 g/dL Low 12.0-15.0 [facility] Comment on above: Order Comment: No: D o not add to previous [id number]- PATIENT NOT IN ROOM; STILL IN O.R. SHOULD BE RN DRAW, PER RN-TECH LM Performed By: #### 5 6101, 78957 ####[facility] [facility] [place] [address], [facility] MCH Auto Entitic mass (RBC) 31.1 pg Normal 27.0-33.0 [facility] Comment on above: Order Comment: No: D o not add to previous [id number]- PATIENT NOT IN ROOM; STILL IN O.R. SHOULD BE RN DRAW, PER RN-TECH LM Performed By: #### 5 610, 36390 ####[facility] MCHC Auto mass conc (RBC) 31.4 g/dL Low 32.0-35.0 [facility] Comment on above: Order Comment: No: D o not add to previous [id number]- PATIENT NOT IN ROOM; STILL IN O.R. SHOULD BE RN DRAW, PER RN-TECH LM Performed By: #### 5 610, 01549 ####[place] [address] [address] MCV Auto Entitic volume (RBC) 98.9 fL High 82.0-98.0 [facility] Comment on above: Order Comment: No: D o not add to previous [id number]- PATIENT NOT IN ROOM; STILL IN O.R. SHOULD BE RN DRAW, PER RN-TECH LM Performed By: #### 5 610, 75029 ####[address] Nucleated RBC/100 WBC Ratio (Bld) 0 % Normal 0-0 [facility] Comment on above: Order Comment: No: D o not add to previous [id number]- PATIENT NOT IN ROOM; STILL IN O.R. SHOULD BE RN DRAW, PER RN-TECH LM Performed By: #### 5 610, 40015 ####[place] [address] [address] PLAT CNT 165 10*3/uL Normal 150-400 [facility] Comment on above: Order Comment: No: D o not add to previous [id number]- PATIENT NOT IN ROOM; STILL IN O.R. SHOULD BE RN DRAW, PER RN-TECH LM Performed By: #### 5 610, 60978 ####[facility] RBC Auto #/vol (Bld) 3.73 10*6/uL Low 3.80-5.00 [facility] Comment on above: Order Comment: No: D o not add to previous [id number]- PATIENT NOT IN ROOM; STILL IN O.R. SHOULD BE RN DRAW, PER RN-TECH LM Performed By: #### 5 610, 92914 ####[facility] [facility].[address] WBC Auto #/vol (Bld) 9.50 10*3/uL Normal 4.00-10.60 [facility] Comment on above: Order Comment: No: D o not add to previous [id number]- PATIENT NOT IN ROOM; STILL IN O.R. SHOULD BE RN DRAW, PER RN-TECH LM Performed By: #### 5 610, 93477 ####[facility] [facility].[address] Erythrocyte distribution width Auto Ratio (RBC) 13.9 % Normal 11.5-15.0 [facility] Comment on above: Order Comment: No: D o not add to previous draw Performed By: #### 5 610, 91044 ####[place] [address] [facility].[address] Hematocrit Auto Volume Fraction (Bld) 34.4 % Low 36.0-45.0 [facility] Comment on above: Order Comment: No: D o not add to previous draw Performed By: #### 5 610, 54675 ####[facility] [facility] Hemoglobin mass conc (Bld) 10.8 g/dL Low 12.0-15.0 [facility] Comment on above: Order Comment: No: D o not add to previous draw Performed By: #### 5 610, 34793 ####[facility] [facility] [place] [address], [facility] MCH Auto Entitic mass (RBC) 31.1 pg Normal 27.0-33.0 [facility] Comment on above: Order Comment: No: D o not add to previous draw Performed By: #### 5 610, 55734 ####[facility] MCHC Auto mass conc (RBC) 31.4 g/dL Low 32.0-35.0 [facility] Comment on above: Order Comment: No: D o not add to previous draw Performed By: #### 5 6100, 45404 ####[facility] MCV Auto Entitic volume (RBC) 99.1 fL High 82.0-98.0 [facility] Comment on above: Order Comment: No: D o not add to previous draw Performed By: #### 5 6100, 77380 ####[facility] [facility].[address] Nucleated RBC/100 WBC Ratio (Bld) 0 % Normal 0-0 [facility] Comment on above: Order Comment: No: D o not add to previous draw Performed By: #### 5 6100, 41702 ####[facility] PLAT CNT 232 10*3/uL Normal 150-400 [facility] Comment on above: Order Comment: No: D o not add to previous draw Performed By: #### 5 610, 72973 ####[facility] RBC Auto #/vol (Bld) 3.47 10*6/uL Low 3.80-5.00 [facility] Comment on above: Order Comment: No: D o not add to previous draw Performed By: #### 5 610, 36977 ####[facility] WBC Auto #/vol (Bld) 9.09 10*3/uL Normal 4.00-10.60 [facility] Comment on above: Order Comment: No: D o not add to previous draw Performed By: #### 5 6101, 69594 ####[facility] MAGNESIUM BLOODon 07-02-2018 Magnesium mass conc 1.6 mg/dL Low 1.9-2.7 [facility] Comment on above: Order Comment: No: D o not add to previous draw Performed By: #### 5 6101, 94163 ####[facility] Operative Reporton 8 Operative Report MR#: [id number] [facility] Vidhya Giordano Room #: [id number] Discharge Date: Birthdate: 1940 OPERATIVE REPORTDATE OF [...] The fascia wasclosed by interrupted 0 PDS mrfggm-[id number] suture. The skin was closed byskin jd. The Prevena wound VAC was applied. Operation was completedwithout complication.I was present during the entire operation.Electronically Signed by:Meg Abebe M.D. 07/07/2018 12:44 P Meg Abebe M.D.Date Dict: 07/02/2018/07:09 P/Meg Abebe M.D.Date Trans: 07/02/2018 09:51 P/[email or web address]_JN:[id number] c: Kalin Santos D.O. [address] [facility] [address] Normal [facility] PHOSPHORUS BLOODon 8 Phosphate mass conc 1.9 mg/dL Low 2.5-5.0 [facility] Comment on above: Order Comment: No: D o not add to previous [id number]- CHANGED TO LAB DRAW Performed By: #### 8 5499 ####[facility] [facility] [place] [address], [facility] POC GLUCOSE LABon 07-02-2018 Glucose mass conc 246 mg/dL High 70-100 [facility] Comment on above: Performed By: #### 5 6101, 75435 ####[facility] [facility] [place] [address], [place] Glucose mass conc 145 mg/dL High 70-100 [facility] Comment on above: Performed By: #### 5 610, 42544 ####[facility] [place] [address], [place] Glucose mass conc 140 mg/dL High 70-100 [facility] Comment on above: Performed By: #### 5 610, 42146 ####[facility] [place] [address], [place] Glucose mass conc 163 mg/dL High 70-100 [facility] Comment on above: Performed By: #### 5 610, 86277 ####[facility] [place] [address], [place] TYPE AND SCREENon 07-02-2018 ABO INTERPRETATION A Normal [facility] Comment on above: Performed By: #### 5 610, 03602 ####[facility] [place] [address], [place] RH INTERPRETATION Positive Normal [facility] Comment on above: Performed By: #### 5 610, 15662 ####[facility] [place] [address], [place] POC GLUCOSE LABon 07-01-2018 Glucose mass conc 137 mg/dL High 70-100 [facility] Comment on above: Performed By: #### 5 6100, 75265 ####[facility] [place] [address], [place] Glucose mass conc 178 mg/dL High 70-100 [facility] Comment on above: Performed By: #### 5 610, 74803 ####[facility] [place] [address], [place] Glucose mass conc 119 mg/dL High 70-100 [facility] Comment on above: Performed By: #### 5 610, 65271 ####[facility] [place] [address], [facility] Glucose mass conc 95 mg/dL Normal 70-100 [facility] Comment on above: Performed By: #### 5 610, 88685 ####[facility] [place] [address], [facility] BASIC METABOLIC PANELon 08-2 Calcium mass conc 8.3 mg/dL Low 8.6-10.3 [facility] Comment on above: Order Comment: No: D o not add to previous draw Performed By: #### 5 610, 85238 ####[facility] [place] [address], [facility] Chloride molar conc 110 mmol/L High 98-107 [facility] Comment on above: Order Comment: No: D o not add to previous draw Performed By: #### 5 610, 74730 ####[facility] [place] [address], [facility] CO2 molar conc 23 mmol/L Normal 21-31 [facility] Comment on above: Order Comment: No: D o not add to previous draw Performed By: #### 5 610, 84069 ####[facility] [place] [address], [facility] Creatinine mass conc 1.08 mg/dL Normal 0.60-1.20 [facility] Comment on above: Order Comment: No: D o not add to previous draw Performed By: #### 5 610, 94615 ####[facility] [place] [address], [facility] GFR/1.73 sq M predicted among blacks MDRD vol rate/area (S/P/Bld) 59 ml/min/1.73sq m Abnormal >60 [facility] Comment on above: Order Comment: No: D o not add to previous draw Result Comment: Calc ulation may not be valid for patients over 70 years Performed By: #### 5 6101, 48325 ####[facility] [place] [address], [facility] GFR/1.73 sq M predicted among non-blacks MDRD vol rate/area (S/P/Bld) 49 ml/min/1.73sq m Abnormal >60 [facility] Comment on above: Order Comment: No: D o not add to previous draw Result Comment: Calc ulation may not be valid for patients over 70 years Performed By: #### 5 6101, 61040 ####[facility] [place] [address], [facility] Glucose mass conc 148 mg/dL High 70-100 [facility] Comment on above: Order Comment: No: D o not add to previous draw Performed By: #### 5 610, 66631 ####[facility] [place] [address], [facility] Potassium molar conc 3.9 mmol/L Normal 3.5-5.1 [facility] Comment on above: Order Comment: No: D o not add to previous draw Performed By: #### 5 6101, 19747 ####[facility] [place] [address], [facility] Sodium molar conc 139 mmol/L Normal 136-145 [facility] Comment on above: Order Comment: No: D o not add to previous draw Performed By: #### 5 6101, 34159 ####[facility] [place] [address], [facility] Urea nitrogen mass conc 14 mg/dL Normal 7-25 [facility] Comment on above: Order Comment: No: D o not add to previous draw Performed By: #### 5 6101, 42603 ####[facility] [place] [address], [facility] CBC COMPLETE BLOOD COUNTon 0 - Erythrocyte distribution width Auto Ratio (RBC) 14.0 % Normal 11.5-15.0 [facility] Comment on above: Order Comment: No: D o not add to previous draw Performed By: #### 5 610, 77098 ####[facility] Hematocrit Auto Volume Fraction (Bld) 34.0 % Low 36.0-45.0 [facility] Comment on above: Order Comment: No: D o not add to previous draw Performed By: #### 5 610, 32626 ####[facility] Hemoglobin mass conc (Bld) 10.7 g/dL Low 12.0-15.0 [facility] Comment on above: Order Comment: No: D o not add to previous draw Performed By: #### 5 610, 36481 ####[facility] [facility].[address] MCH Auto Entitic mass (RBC) 31.6 pg Normal 27.0-33.0 [facility] Comment on above: Order Comment: No: D o not add to previous draw Performed By: #### 5 6100, 83985 ####[facility] [facility].[address] MCHC Auto mass conc (RBC) 31.5 g/dL Low 32.0-35.0 [facility] Comment on above: Order Comment: No: D o not add to previous draw Performed By: #### 5 610, 56579 ####[facility] [facility].[address] MCV Auto Entitic volume (RBC) 100.3 fL High 82.0-98.0 [facility] Comment on above: Order Comment: No: D o not add to previous draw Performed By: #### 5 610, 52366 ####[facility] Nucleated RBC/100 WBC Ratio (Bld) 0 % Normal 0-0 [facility] Comment on above: Order Comment: No: D o not add to previous draw Performed By: #### 5 610, 68795 ####[facility] [address], [facility] PLAT CNT 213 10*3/uL Normal 150-400 [facility] Comment on above: Order Comment: No: D o not add to previous draw Performed By: #### 5 610, 96470 ####[facility] [address], [facility] RBC Auto #/vol (Bld) 3.39 10*6/uL Low 3.80-5.00 [facility] Comment on above: Order Comment: No: D o not add to previous draw Performed By: #### 5 610, 56603 ####[facility] [place] [address], [facility] WBC Auto #/vol (Bld) 11.66 10*3/uL High 4.00-10.60 [facility] Comment on above: Order Comment: No: D o not add to previous draw Performed By: #### 5 6101, 50014 ####[facility] [place] [address], [facility] MAGNESIUM BLOODon 06-30-2018 Magnesium mass conc 2.1 mg/dL Normal 1.9-2.7 [facility] Comment on above: Order Comment: No: D o not add to previous draw Performed By: #### 5 610, 22266 ####[facility] [place] [address], [facility] PHOSPHORUS BLOODon 8 Phosphate mass conc 2.1 mg/dL Low 2.5-5.0 [facility] Comment on above: Order Comment: No: D o not add to previous draw Performed By: #### 5 610, 78993 ####[facility] [place] [address], [facility] POC GLUCOSE LABon 06-30-2018 Glucose mass conc 160 mg/dL High 70-100 [facility] Comment on above: Performed By: #### 5 6101, 38337 ####[facility] [place] [address], [facility] Glucose mass conc 193 mg/dL High 70-100 [facility] Comment on above: Performed By: #### 5 6101, 88932 ####[facility] [place] [address], [facility] Glucose mass conc 134 mg/dL High 70-100 [facility] Comment on above: Performed By: #### 8 5499 ####[facility] [place] [address], [facility] Glucose mass conc 132 mg/dL High 70-100 [facility] Comment on above: Performed By: #### 8 5499 ####[facility] [place] [address], [facility] BASIC METABOLIC PANELon 06-09 Calcium mass conc 8.7 mg/dL Normal 8.6-10.3 [facility] Comment on above: Order Comment: No: D o not add to previous draw Performed By: #### 8 5499 ####[facility] [place] [address], [facility] Chloride molar conc 110 mmol/L High 98-107 [facility] Comment on above: Order Comment: No: D o not add to previous draw Performed By: #### 8 5499 ####[facility] [place] [address], [facility] CO2 molar conc 24 mmol/L Normal 21-31 [facility] Comment on above: Order Comment: No: D o not add to previous draw Performed By: #### 8 5499 ####[facility] [place] [address], [facility] Creatinine mass conc 1.25 mg/dL High 0.60-1.20 [facility] Comment on above: Order Comment: No: D o not add to previous draw Performed By: #### 8 5499 ####[facility] [facility] [place] [address], [facility] GFR/1.73 sq M predicted among blacks MDRD vol rate/area (S/P/Bld) 50 ml/min/1.73sq m Abnormal >60 [facility] Comment on above: Order Comment: No: D o not add to previous draw Result Comment: Calc ulation may not be valid for patients over 70 years Performed By: #### 8 5499 ####[facility] [facility] [place] [address], [facility] GFR/1.73 sq M predicted among non-blacks MDRD vol rate/area (S/P/Bld) 42 ml/min/1.73sq m Abnormal >60 [facility] Comment on above: Order Comment: No: D o not add to previous draw Result Comment: Calc ulation may not be valid for patients over 70 years Performed By: #### 8 5499 ####[facility] [facility] [place] [address], [facility] Glucose mass conc 183 mg/dL High 70-100 [facility] Comment on above: Order Comment: No: D o not add to previous draw Performed By: #### 8 5499 ####[facility] [facility] [place] [address], [facility] Potassium molar conc 4.0 mmol/L Normal 3.5-5.1 [facility] Comment on above: Order Comment: No: D o not add to previous draw Performed By: #### 8 5499 ####[facility] [facility] [place] [address], [place] Sodium molar conc 139 mmol/L Normal 136-145 [facility] Comment on above: Order Comment: No: D o not add to previous draw Performed By: #### 8 5499 ####[facility] [facility].[address] Urea nitrogen mass conc 16 mg/dL Normal 7-25 [facility] Comment on above: Order Comment: No: D o not add to previous draw Performed By: #### 8 5499 ####[facility] [facility].[address] CBC COMPLETE BLOOD COUNTon 06-29-2018 Erythrocyte distribution width Auto Ratio (RBC) 14.2 % Normal 11.5-15.0 [facility] Comment on above: Order Comment: No: D o not add to previous draw Performed By: #### 8 5499 ####[facility] Hematocrit Auto Volume Fraction (Bld) 36.9 % Normal 36.0-45.0 [facility] Comment on above: Order Comment: No: D o not add to previous draw Performed By: #### 8 5499 ####[facility] [facility].[address] Hemoglobin mass conc (Bld) 11.5 g/dL Low 12.0-15.0 [facility] Comment on above: Order Comment: No: D o not add to previous draw Performed By: #### 8 5499 ####[facility] [facility].[address] MCH Auto Entitic mass (RBC) 31.1 pg Normal 27.0-33.0 [facility] Comment on above: Order Comment: No: D o not add to previous draw Performed By: #### 8 5499 ####[facility] [facility].[address] MCHC Auto mass conc (RBC) 31.2 g/dL Low 32.0-35.0 [facility] Comment on above: Order Comment: No: D o not add to previous draw Performed By: #### 8 5499 ####[facility] MCV Auto Entitic volume (RBC) 99.7 fL High 82.0-98.0 [facility] Comment on above: Order Comment: No: D o not add to previous draw Performed By: #### 8 5499 ####[facility] [facility].[address] Nucleated RBC/100 WBC Ratio (Bld) 0 % Normal 0-0 [facility] Comment on above: Order Comment: No: D o not add to previous draw Performed By: #### 8 5499 ####[facility] [facility].[address] PLAT CNT 228 10*3/uL Normal 150-400 [facility] Comment on above: Order Comment: No: D o not add to previous draw Performed By: #### 8 5499 ####[facility] RBC Auto #/vol (Bld) 3.70 10*6/uL Low 3.80-5.00 [facility] Comment on above: Order Comment: No: D o not add to previous draw Performed By: #### 8 5499 ####[facility] [facility].[address] WBC Auto #/vol (Bld) 14.41 10*3/uL High 4.00-10.60 [facility] Comment on above: Order Comment: No: D o not add to previous draw Performed By: #### 8 5499 ####[facility] [facility].[address] MAGNESIUM BLOODon 06-29-2018 Magnesium mass conc 2.5 mg/dL Normal 1.9-2.7 [facility] Comment on above: Order Comment: No: D o not add to previous draw Performed By: #### 8 5499 ####[facility] [facility] [place] [address], [facility] PHOSPHORUS BLOODon 8 Phosphate mass conc 1.7 mg/dL Low 2.5-5.0 [facility] Comment on above: Order Comment: No: D o not add to previous draw Performed By: #### 8 5499 ####[facility] [place] [address] [address], [facility] POC GLUCOSE LABon 06-29-2018 Glucose mass conc 134 mg/dL High 70-100 [facility] Comment on above: Performed By: #### 8 5499 ####[facility] [facility] [place] [address], [facility] Glucose mass conc 168 mg/dL High 70-100 [facility] Comment on above: Performed By: #### 8 [id number] ####[facility] [place] [address], [facility] Glucose mass conc 169 mg/dL High 70-100 [facility] Comment on above: Performed By: #### 0 0121 ####[address] [address], [facility] Glucose mass conc 180 mg/dL High 70-100 [facility] Comment on above: Performed By: #### 0 0121 ####[address] [address], [facility] PORTABLE CHEST 1 VIEWon 06-09 PORTABLE CHEST 1 VIEW [facility] Abqlfbcpk[address] [place] [address] Stacy ent Name: VIDHYA GIORDANO : 1940Sex: FAge: Race: WhiteMRN: [id number]. Location: [id number] Status: IVisit #: [id number] Date: 06/29/2018 7:00:00 AMCompleted Date: 06/29/2018 07:23 AMRequesting Provider: MARLIN DELGADO Attending Provider: MEG ABEBE Report Copy To: Signs & Symptoms: Elevated WBCHistory: Patient history not availableComments: R/O PneumoniaExam: PORTABLE CHEST 1 VIEWAccession #: [id number] ===PORTABLE CHEST 1 VIEW 06/29/2018 7:23 AM [...] findings. Electronically signed by:Rhoda Nicole. Transcribed by: [email or web address], User Resident: MARITA MCKEONElectronically Signed by: RHODA NICOLE @ 06/29/2018 09:45 AMI personally read this/these film(s) with this resident Normal [facility] Comment on above: Order Comment: R/O P neumonia *BLOOD CULTUREon 06-28-2018 Bacteria identified in Blood by Culture Clinical Report: (D) Specimen: BLOOD CULTURE Collected: 06/28/2018 18:45 Status: Final Last Updated: 07/04/2018 07:52 CULT RES (Final) No Growth Day 5 Normal [facility] Comment on above: Performed By: #### 0 0121 ####[facility] [facility].[address] BASIC METABOLIC PANELon 06-09 Calcium mass conc 8.6 mg/dL Normal 8.6-10.3 [facility] Comment on above: Order Comment: No: D o not add to previous drawNo collection time noted on specimen or requisition. The collection timerecorded is the time of receipt in the lab. Performed By: #### 0 0121 ####[facility] [facility] [place] [address], [facility] Chloride molar conc 106 mmol/L Normal 98-107 [facility] Comment on above: Order Comment: No: D o not add to previous drawNo collection time noted on specimen or requisition. The collection timerecorded is the time of receipt in the lab. Performed By: #### 0 0121 ####[facility] [facility] [place] [address], [facility] CO2 molar conc 26 mmol/L Normal 21-31 [facility] Comment on above: Order Comment: No: D o not add to previous drawNo collection time noted on specimen or requisition. The collection timerecorded is the time of receipt in the lab. Performed By: #### 0 0121 ####[facility] [facility] [place] [address], [facility] Creatinine mass conc 1.50 mg/dL High 0.60-1.20 [facility] Comment on above: Order Comment: No: D o not add to previous drawNo collection time noted on specimen or requisition. The collection timerecorded is the time of receipt in the lab. Performed By: #### 0 0121 ####[facility] [place] [address], [facility] GFR/1.73 sq M predicted among blacks MDRD vol rate/area (S/P/Bld) 41 ml/min/1.73sq m Abnormal >60 [facility] Comment on above: Order Comment: No: D o not add to previous drawNo collection time noted on specimen or requisition. The collection timerecorded is the time of receipt in the lab. Result Comment: Calc ulation may not be valid for patients over 70 years Performed By: #### 0 0121 ####[facility] [facility] [place] [address], [facility] GFR/1.73 sq M predicted among non-blacks MDRD vol rate/area (S/P/Bld) 33 ml/min/1.73sq m Abnormal >60 [facility] Comment on above: Order Comment: No: D o not add to previous drawNo collection time noted on specimen or requisition. The collection timerecorded is the time of receipt in the lab. Result Comment: Calc ulation may not be valid for patients over 70 years Performed By: #### 0 0121 ####[place] [address] [place] [address], [facility] Glucose mass conc 170 mg/dL High 70-100 [facility] Comment on above: Order Comment: No: D o not add to previous drawNo collection time noted on specimen or requisition. The collection timerecorded is the time of receipt in the lab. Performed By: #### 0 0121 ####[address] Potassium molar conc 4.0 mmol/L Normal 3.5-5.1 [facility] Comment on above: Order Comment: No: D o not add to previous drawNo collection time noted on specimen or requisition. The collection timerecorded is the time of receipt in the lab. Performed By: #### 0 0121 ####[place] [address] Sodium molar conc 137 mmol/L Normal 136-145 [facility] Comment on above: Order Comment: No: D o not add to previous drawNo collection time noted on specimen or requisition. The collection timerecorded is the time of receipt in the lab. Performed By: #### 0 0121 ####[place] [address] Urea nitrogen mass conc 23 mg/dL Normal 7-25 [facility] Comment on above: Order Comment: No: D o not add to previous drawNo collection time noted on specimen or requisition. The collection timerecorded is the time of receipt in the lab. Performed By: #### 0 0121 ####[address] CBC W/DIFFon 06-28-2018 ABS BASOPHILS 0.0 10*3/uL Normal 0.0-0.2 [facility] Comment on above: Order Comment: No: D o not add to previous drawNo collection time noted on specimen or requisition. The collection timerecorded is the time of receipt in the lab. Performed By: #### 0 0121 ####[address] ABS IMM GRANS 0.1 10*3/uL Normal 0.0-0.2 [facility] Comment on above: Order Comment: No: D o not add to previous drawNo collection time noted on specimen or requisition. The collection timerecorded is the time of receipt in the lab. Performed By: #### 0 0121 ####[address] ABS NEUTROPHILS 9.5 10*3/uL High 1.6-7.6 [facility] Comment on above: Order Comment: No: D o not add to previous drawNo collection time noted on specimen or requisition. The collection timerecorded is the time of receipt in the lab. Performed By: #### 0 0121 ####[facility] Basophils Auto #/vol (Bld) 0.2 % Normal 0.0-1.0 [facility] Comment on above: Order Comment: No: D o not add to previous drawNo collection time noted on specimen or requisition. The collection timerecorded is the time of receipt in the lab. Performed By: #### 0 0121 ####[facility] Eosinophils Auto #/vol (Bld) 0.0 10*3/uL Normal 0.0-0.5 [facility] Comment on above: Order Comment: No: D o not add to previous drawNo collection time noted on specimen or requisition. The collection timerecorded is the time of receipt in the lab. Performed By: #### 0 0121 ####[place] [address] Eosinophils/100 WBC Auto (Bld) 0.1 % Normal 0.0-6.0 [facility] Comment on above: Order Comment: No: D o not add to previous drawNo collection time noted on specimen or requisition. The collection timerecorded is the time of receipt in the lab. Performed By: #### 0 0121 ####[facility] Erythrocyte distribution width Auto Ratio (RBC) 14.0 % Normal 11.5-15.0 [facility] Comment on above: Order Comment: No: D o not add to previous drawNo collection time noted on specimen or requisition. The collection timerecorded is the time of receipt in the lab. Performed By: #### 0 0121 ####[address] Hematocrit Auto Volume Fraction (Bld) 35.7 % Low 36.0-45.0 [facility] Comment on above: Order Comment: No: D o not add to previous drawNo collection time noted on specimen or requisition. The collection timerecorded is the time of receipt in the lab. Performed By: #### 0 0121 ####[facility] Hemoglobin mass conc (Bld) 11.9 g/dL Low 12.0-15.0 [facility] Comment on above: Order Comment: No: D o not add to previous drawNo collection time noted on specimen or requisition. The collection timerecorded is the time of receipt in the lab. Performed By: #### 0 0121 ####[place] [address] IMMATURE GRANS 0.4 % Normal 0.0-1.0 [facility] Comment on above: Order Comment: No: D o not add to previous drawNo collection time noted on specimen or requisition. The collection timerecorded is the time of receipt in the lab. Performed By: #### 0 0121 ####[address] Lymphocytes Auto #/vol (Bld) 2.5 10*3/uL Normal 1.2-4.0 [facility] Comment on above: Order Comment: No: D o not add to previous drawNo collection time noted on specimen or requisition. The collection timerecorded is the time of receipt in the lab. Performed By: #### 0 0121 ####[address] Lymphocytes/100 WBC Auto (Bld) 18.4 % Low 20.0-45.0 [facility] Comment on above: Order Comment: No: D o not add to previous drawNo collection time noted on specimen or requisition. The collection timerecorded is the time of receipt in the lab. Performed By: #### 0 0121 ####[facility] MCH Auto Entitic mass (RBC) 31.7 pg Normal 27.0-33.0 [facility] Comment on above: Order Comment: No: D o not add to previous drawNo collection time noted on specimen or requisition. The collection timerecorded is the time of receipt in the lab. Performed By: #### 0 0121 ####[facility] MCHC Auto mass conc (RBC) 33.3 g/dL Normal 32.0-35.0 [facility] Comment on above: Order Comment: No: D o not add to previous drawNo collection time noted on specimen or requisition. The collection timerecorded is the time of receipt in the lab. Performed By: #### 0 0121 ####[facility] MCV Auto Entitic volume (RBC) 95.2 fL Normal 82.0-98.0 [facility] Comment on above: Order Comment: No: D o not add to previous drawNo collection time noted on specimen or requisition. The collection timerecorded is the time of receipt in the lab. Performed By: #### 0 0121 ####[place] [address] Monocytes Auto #/vol (Bld) 1.3 10*3/uL High 0.1-1.0 [facility] Comment on above: Order Comment: No: D o not add to previous drawNo collection time noted on specimen or requisition. The collection timerecorded is the time of receipt in the lab. Performed By: #### 0 0121 ####[facility] MONOS 10.0 % Normal 5.0-12.0 [facility] Comment on above: Order Comment: No: D o not add to previous drawNo collection time noted on specimen or requisition. The collection timerecorded is the time of receipt in the lab. Performed By: #### 0 0121 ####[facility] Neutrophils/100 WBC Auto (Bld) 70.9 % Normal 40.0-72.0 [facility] Comment on above: Order Comment: No: D o not add to previous drawNo collection time noted on specimen or requisition. The collection timerecorded is the time of receipt in the lab. Performed By: #### 0 0121 ####[facility] Nucleated RBC/100 WBC Ratio (Bld) 0 % Normal 0-0 [facility] Comment on above: Order Comment: No: D o not add to previous drawNo collection time noted on specimen or requisition. The collection timerecorded is the time of receipt in the lab. Performed By: #### 0 0121 ####[facility] PLAT CNT 236 10*3/uL Normal 150-400 [facility] Comment on above: Order Comment: No: D o not add to previous drawNo collection time noted on specimen or requisition. The collection timerecorded is the time of receipt in the lab. Performed By: #### 0 0121 ####[facility] RBC Auto #/vol (Bld) 3.75 10*6/uL Low 3.80-5.00 [facility] Comment on above: Order Comment: No: D o not add to previous drawNo collection time noted on specimen or requisition. The collection timerecorded is the time of receipt in the lab. Performed By: #### 0 0121 ####[facility] [facility].[address] WBC Auto #/vol (Bld) 13.43 10*3/uL High 4.00-10.60 [facility] Comment on above: Order Comment: No: D o not add to previous drawNo collection time noted on specimen or requisition. The collection timerecorded is the time of receipt in the lab. Performed By: #### 0 0121 ####[facility] [facility] [place] [address], [facility] MAGNESIUM BLOODon 06-28-2018 Magnesium mass conc 1.7 mg/dL Low 1.9-2.7 [facility] Comment on above: Order Comment: No: D o not add to previous drawNo collection time noted on specimen or requisition. The collection timerecorded is the time of receipt in the lab. Performed By: #### 1 0070, [id number], [id number] ####[facility] [facility] [place] [address], [facility] PHOSPHORUS BLOODon 8 Phosphate mass conc 3.4 mg/dL Normal 2.5-5.0 [facility] Comment on above: Order Comment: No: D o not add to previous drawNo collection time noted on specimen or requisition. The collection timerecorded is the time of receipt in the lab. Performed By: #### 1 0070, [id number], [id number] ####[facility] [facility] [place] [address], [facility] POC GLUCOSE LABon 06-28-2018 Glucose mass conc 166 mg/dL High 70-100 [facility] Comment on above: Performed By: #### 0 0121 ####[facility] [facility] [place] [address], [facility] Glucose mass conc 168 mg/dL High 70-100 [facility] Comment on above: Performed By: #### 0 0121 ####[facility] [facility] [place] [address], [facility] Glucose mass conc 141 mg/dL High 70-100 [facility] Comment on above: Performed By: #### 0 0121 ####[facility] [facility] [place] [address], [facility] Glucose mass conc 180 mg/dL High 70-100 [facility] Comment on above: Performed By: #### 8 5499 ####[facility] [place] [address], [facility] PORTABLE CHEST 1 VIEWon 06-09 PORTABLE CHEST 1 VIEW [facility] [id number] [place] [id number] Stacy ent Name: VIDHYA GIORDANO : 1940Sex: FAge: Race: WhiteMRN: [id number]. Location: [id number] Status: IVisit #: [id number] Date: 06/28/2018 6:35:00 PMCompleted Date: 06/28/2018 07:38 PMRequesting Provider: VINICIO REAVES Attending Provider: MEG ABEBE Report Copy To: Signs & Symptoms: FeverHistory: Patient history not availableComments: R/O InfiltratesExam: PORTABLE CHEST 1 VIEWAccession #: [id number] ===PORTABLE CHEST 1 VIEW 06/28/2018 7:38 PM [...] findings. Electronically signed by:Rhoda Nicole. Transcribed by: [email or web address], User Resident: MARITA MCKEONElectronically Signed by: RHODA NICOLE @ 06/29/2018 09:22 AMI personally read this/these film(s) with this resident Normal [facility] Comment on above: Order Comment: R/O I nfiltrates URINALYSIS REFLEXon 06-28-20 18 APPEARANCE CLEAR Normal CLEAR [facility] Comment on above: Order Comment: No: D o not add to previous drawCriteria for reflexing a culture was not met. Please call the lab [email or web address] within 24 hours of collection time if culture is needed Performed By: #### 0 0121 ####[facility] [facility] [place] [address], [facility] BILIRUBIN Negative Normal NEGATIVE [facility] Comment on above: Order Comment: No: D o not add to previous drawCriteria for reflexing a culture was not met. Please call the lab [email or web address] within 24 hours of collection time if culture is needed Performed By: #### 0 0121 ####[facility] [place] [address], [facility] BLOOD Negative Normal NEGATIVE [facility] Comment on above: Order Comment: No: D o not add to previous drawCriteria for reflexing a culture was not met. Please call the lab [phone] within 24 hours of collection time if culture is needed Performed By: #### 0 0121 ####[facility] [address], [place] COLOR YELLOW Normal YELLOW [facility] Comment on above: Order Comment: No: D o not add to previous drawCriteria for reflexing a culture was not met. Please call the lab [phone] within 24 hours of collection time if culture is needed Performed By: #### 0 0121 ####[facility] [place] [address], [place] GLUCOSE Negative Normal NEGATIVE [facility] Comment on above: Order Comment: No: D o not add to previous drawCriteria for reflexing a culture was not met. Please call the lab [id number] within 24 hours of collection time if culture is needed Performed By: #### 0 0121 ####[facility] [place] [address], [facility] KETONE Negative Normal NEGATIVE [facility] Comment on above: Order Comment: No: D o not add to previous drawCriteria for reflexing a culture was not met. Please call the lab [id number] within 24 hours of collection time if culture is needed Performed By: #### 0 0121 ####[facility] [place] [address], [place] Negative Normal NEGATIVE [facility] Comment on above: Order Comment: No: D o not add to previous drawCriteria for reflexing a culture was not met. Please call the lab [id number] within 24 hours of collection time if culture is needed Performed By: #### 0 0121 ####[facility] [place] [address], [place] MICRO NOT DONE negative chemical reactions unless requested in original order Normal [facility] Comment on above: Order Comment: No: D o not add to previous drawCriteria for reflexing a culture was not met. Please call the lab [id number] within 24 hours of collection time if culture is needed Performed By: #### 0 0121 ####[facility] [place] [address], [facility] NITRITE Negative Normal NEGATIVE [facility] Comment on above: Order Comment: No: D o not add to previous drawCriteria for reflexing a culture was not met. Please call the lab [id number] within 24 hours of collection time if culture is needed Performed By: #### 0 0121 ####[facility] [facility].[address] PH 5.0 Normal 5.0-8.0 [facility] Comment on above: Order Comment: No: D o not add to previous drawCriteria for reflexing a culture was not met. Please call the lab [id number] within 24 hours of collection time if culture is needed Performed By: #### 0 0121 ####[facility] Protein mass conc Negative Normal NEGATIVE [facility] Comment on above: Order Comment: No: D o not add to previous drawCriteria for reflexing a culture was not met. Please call the lab [id number] within 24 hours of collection time if culture is needed Performed By: #### 0 0121 ####[facility] SPEC GRAV 1.013 Low 1.015-1.020 [facility] Comment on above: Order Comment: No: D o not add to previous drawCriteria for reflexing a culture was not met. Please call the lab [id number] within 24 hours of collection time if culture is needed Performed By: #### 0 0121 ####[facility] [facility].[address] APTTon 06-27-2018 aPTT Coag time (Bld) 33.7 s Normal 25.0-35.0 [facility] Comment on above: Result Comment: ALL RESULTS [...] THIS PURPOSE. Performed By: #### 5 6101, [id number] ####[facility] [facility].[address] POC GLUCOSE LABon 06-27-2018 Glucose mass conc 164 mg/dL High 70-100 [facility] Comment on above: Performed By: #### 8 5499 ####[facility] [facility].[address] Glucose mass conc 194 mg/dL High 70-100 [facility] Comment on above: Performed By: #### 8 5499 ####[facility] [facility].[address] Glucose mass conc 115 mg/dL High 70-100 [facility] Comment on above: Performed By: #### 8 5499 ####[facility] [facility].[address] PROTHROMBIN TIMEon 8 INR Coag RelTime (PPP) 1.07 {INR} Normal 0.91-1.16 [facility] Comment on above: Result Comment: ACCC P RECOMMENDED INR FOR WARFARIN THERAPY CONDITION INRPROPHYLAXIS OF VENOUS THROMBOSIS 2-3(HIGH-RISK SURGERY)TREATMENT OF VENOUS THROMBOSIS 2-3TREATMENT OF PULMONARY EMBOLISM 2-3PREVENTION OF SYSTEMIC EMBOLISM: 2-3 ACUTE MYOCARDIAL INFARCTION TISSUE HEART VALVES VALVULAR HEART DISEASE ATRIAL FIBRILLATION RECURRENT SYSTEMIC EMBOLISMMECHANICAL HEART VALVE 2.5-3.5 FROM: ORAL ANTICOAGULANTS. MECHANISM OF ACTION, CLINICALEFFECTIVENESS, AND OPTIMAL THERAPEUTIC RANGE. [id number]. Performed By: #### 5 6101, [id number] ####[facility] Prothrombin time (PT) Coag time (PPP) 13.9 s Normal 12.3-14.8 [facility] Comment on above: Result Comment: ALL RESULTS MUST BE INTERPRETED WITH RESPECT TO BLOOD DRAWING ARTIFACTOR DILUTION ERROR OF ANTICOAGULANT AT THE TIME OF SAMPLING. Performed By: #### 5 6101, [id number] ####[facility] CBC W/DIFFon 05-24-2018 ABS BASOPHILS 0.1 10*3/uL Normal 0.0-0.2 [facility] Comment on above: Performed By: #### 5 0103 ####[facility] ABS IMM GRANS 0.1 10*3/uL Normal 0.0-0.2 [facility] Comment on above: Performed By: #### 5 0103 ####[place] [address] ABS NEUTROPHILS 4.6 10*3/uL Normal 1.6-7.6 [facility] Comment on above: Performed By: #### 5 0103 ####[facility] Basophils Auto #/vol (Bld) 0.7 % Normal 0.0-1.0 [facility] Comment on above: Performed By: #### 5 0103 ####[facility] [facility].[address] Eosinophils Auto #/vol (Bld) 0.5 10*3/uL Normal 0.0-0.5 [facility] Comment on above: Performed By: #### 5 0103 ####[facility] [facility].[address] Eosinophils/100 WBC Auto (Bld) 5.2 % Normal 0.0-6.0 [facility] Comment on above: Performed By: #### 3 ####[facility] [facility].[address] Erythrocyte distribution width Auto Ratio (RBC) 13.8 % Normal 11.5-15.0 [facility] Comment on above: Performed By: #### 3 ####[facility] Hematocrit Auto Volume Fraction (Bld) 40.0 % Normal 36.0-45.0 [facility] Comment on above: Performed By: #### 3 ####[facility] [facility].[address] Hemoglobin mass conc (Bld) 13.0 g/dL Normal 12.0-15.0 [facility] [place] Comment on above: Performed By: #### 5 3 ####[facility] IMMATURE GRANS 0.6 % Normal 0.0-1.0 [facility] [place] Comment on above: Performed By: #### 5 3 ####[facility]3000 [facility].[address] Lymphocytes Auto #/vol (Bld) 3.1 10*3/uL Normal 1.2-4.0 [facility] [place] Comment on above: Performed By: #### 5 3 ####[facility] Lymphocytes/100 WBC Auto (Bld) 33.5 % Normal 20.0-45.0 [facility] [place] Comment on above: Performed By: #### 0103 ####[facility] MCH Auto Entitic mass (RBC) 31.9 pg Normal 27.0-33.0 [facility] [place] Comment on above: Performed By: #### 3 ####[facility] MCHC Auto mass conc (RBC) 32.5 g/dL Normal 32.0-35.0 [facility] [place] Comment on above: Performed By: #### 3 ####[facility] MCV Auto Entitic volume (RBC) 98.0 fL Normal 82.0-98.0 [facility] [place] Comment on above: Performed By: #### 3 ####[facility] Monocytes Auto #/vol (Bld) 1.0 10*3/uL Normal 0.1-1.0 [facility] [place] Comment on above: Performed By: #### 3 ####[facility] MONOS 10.3 % Normal 5.0-12.0 [facility] [place] Comment on above: Performed By: #### 5 3 ####[facility] Neutrophils/100 WBC Auto (Bld) 49.7 % Normal 40.0-72.0 [facility] [place] Comment on above: Performed By: #### 3 ####[facility] Nucleated RBC/100 WBC Ratio (Bld) 0 % Normal 0-0 [facility] [place] Comment on above: Performed By: #### 3 ####[facility] [address], [facility] PLAT CNT 258 10*3/uL Normal 150-400 [facility] [place] Comment on above: Performed By: #### 102 ####[facility]3000 [facility] [place] [address], [facility] RBC Auto #/vol (Bld) 4.08 10*6/uL Normal 3.80-5.00 [facility] [place] Comment on above: Performed By: #### 5 010 ####[facility]3000 [facility] [place] [address], [facility] WBC Auto #/vol (Bld) 9.35 10*3/uL Normal 4.00-10.60 [facility] [place] Comment on above: Performed By: #### 102 ####[facility]3000 [facility].[address] COMP METABOLIC PANELon 05-24 Albumin mass conc 4.1 g/dL Normal 3.5-5.7 [facility] [place] Comment on above: Performed By: #### 0 0121 ####[place] [address] [facility].[address] ALKALINE PHOSPH 64 IU/L Normal 34-104 [facility] [place] Comment on above: Performed By: #### 0 0121 ####[facility]3000 [facility].[address] ALT enzyme act/vol 26 U/L Normal 7-52 [facility] [place] Comment on above: Performed By: #### 0 0121 ####[place] [address] [facility].[address] AST enzyme act/vol 32 U/L Normal 13-39 [facility] [place] Comment on above: Performed By: #### 0 0121 ####[address] Bilirubin mass conc 0.4 mg/dL Normal 0.3-1.0 [facility] [place] Comment on above: Performed By: #### 0 0121 ####[facility]3000 [facility] [place] [address], [facility] Calcium mass conc 10.2 mg/dL Normal 8.6-10.3 [facility] [place] Comment on above: Performed By: #### 0 0121 ####[facility]3000 [facility] [place] [address], [facility] Chloride molar conc 102 mmol/L Normal 98-107 [facility] [place] Comment on above: Performed By: #### 0 0121 ####[facility]3000 [facility] [place] [address], [facility] CO2 molar conc 24 mmol/L Normal 21-31 [facility] [place] Comment on above: Performed By: #### 0 0121 ####[facility] [place] [address], [facility] Creatinine mass conc 1.41 mg/dL High 0.60-1.20 [facility] [place] Comment on above: Performed By: #### 0 0121 ####[facility] [place] [address], [facility] GFR/1.73 sq M predicted among blacks MDRD vol rate/area (S/P/Bld) 44 ml/min/1.73sq m Abnormal >60 [facility] [place] Comment on above: Result Comment: Calc ulation may not be valid for patients over 70 years Performed By: #### 0 0121 ####[facility]3000 [facility] [place] [address], [facility] GFR/1.73 sq M predicted among non-blacks MDRD vol rate/area (S/P/Bld) 36 ml/min/1.73sq m Abnormal >60 [facility] [place] Comment on above: Result Comment: Calc ulation may not be valid for patients over 70 years Performed By: #### 0 0121 ####[facility]3000 [facility] [place] [address], [facility] Glucose mass conc 129 mg/dL High 70-100 [facility] [place] Comment on above: Performed By: #### 0 0121 ####[facility]3000 [facility] [place] [address], [facility] Potassium molar conc 5.1 mmol/L Normal 3.5-5.1 [facility] [place] Comment on above: Performed By: #### 0 0121 ####[facility] [facility] [place] [address], [facility] Protein mass conc 7.6 g/dL Normal 6.0-8.3 [facility] [place] Comment on above: Performed By: #### 0 0121 ####[facility]3000 [facility] [place] [address], [facility] Sodium molar conc 134 mmol/L Low 136-145 [facility] [place] Comment on above: Performed By: #### 0 0121 ####[facility]3000 [facility] [place] [address], [facility] Urea nitrogen mass conc 25 mg/dL Normal 7-25 [facility] [place] Comment on above: Performed By: #### 0 0121 ####[facility]3000 [place], [place] [id number] [place] [address] Progress Noteon 12-02-2017 HIM IP Note OR Remarketing Manager Normal [facility] HIM IP Note OR Remarketing Manager Normal [facility] Vital Signs Date Time Vital Sign Value Performing Clinician Manohari shana 05-03-2024 13: Body height 152.4 cm MD Kael Adkins Work Phone: [facility] 05-03-2024 13: Body mass index (BMI) [Ratio] 31.5 kg/m2 MD Kael Adkins Work Phone: [facility] 05-03-2024 13: Body weight 73.2 kg MD Kael Adkins Work Phone: [facility] 05-03-2024 13:020400 Body temperature 97.3 [degF] MD Kael Adkins Work Phone: [facility] 05-03-2024 13:020400 Diastolic blood pressure 59 mm[Hg] MD Kael Adkins Work Phone: [facility] 05-03-2024 13:020400 Heart rate 56 /min MD Kael Adkins Work Phone: [facility] 05-03-2024 13:020400 Respiratory rate 20 /min MD Kael Adkins Work Phone: [facility] 05-03-2024 13:020400 Systolic blood pressure 106 mm[Hg] MD Kael Adkins Work Phone: [facility] Encounters Encounter Date Encounter Type Care Provider Facility Start: 03-07-2025 End: 03-07-2025 ambulatory Kael Adkins [facility] Work Phone: Start: 03-07-2025 End: 03-07-2025 Departed Referred Kael Adkins MD Work Phone: [facility] Start: 03-05-2025 End: 03-05-2025 ambulatory [facility] Start: 05-03-2024 End: 05-03-2024 ambulatory MD Kael Adkins Work Phone: [facility] Work Phone: Start: 05-03-2024 End: 05-03-2024 Discharged Recurring MD Kael Adkins Work Phone: [facility] [place] Work Phone: Start: 12-13-2023 End: 12-13-2023 Clinical Support Anna Kumar CCC-A Work Phone: [facility] Comment on above: Bilateral impacted c erumen (Primary Dx) Start: 01-22-2023 End: 01-22-2023 ambulatory STACIA ARIANNA Facility:[facility] Start: 11-16-2022 End: 11-17-2022 ambulatory NONE LISTED REQUEST Facility:[facility] Start: 09-16-2022 ambulatory STACIAKRISSY KELLER Facility: [facility] Start: 08-28-2022 End: 08-29-2022 ambulatory KAEL ADKINS Facility:[facility] Start: 02-11-2022 End: 02-12-[address] DOCTOR JUAREZ Facility:[facility] Start: 02-08-2022 End: 02-08-[address] KAEL ADKINS . Facility:[facility] Start: 02-04-2022 ambulatory STACIA KELLER Facility: [facility] Start: 02-01-2022 End: 02-01-[address] KAEL ADKINS . Facility: Start: 06-27-2018 End: 07-19-2018 Evaluation and management of inpatient MEG ABEBE Facility:[facility] Start: 05-24-2018 End: 05-25-2018 Patient encounter MEG ABEBE Facility:[facility] Start: 04-19-2018 End: 04-20-2018 Patient encounter MEG ABEBE Facility:[facility] Procedures Date Procedure Procedure Detail Performing Clinician Start: 07-02-2018 EXCISION OF PERITONE UM, OPEN APPROACH MEG ABEBE Start: 07-02-2018 EXCISION OF SMALL IN TESTINE, OPEN APPROACH MEG ABEBE Start: 07-02-2018 INTRODUCE ADHESION B ARRIER IN PERITON CAV, OPEN MEG ABEBE Start: 07-02-2018 RELEASE SMALL INTEST INE, OPEN APPROACH EMG ABEBE Start: 07-02-2018 REPAIR TRANSVERSE CO ELMER, OPEN APPROACH MEG ABEBE Start: 07-02-2018 Antibody screen MEG ABEBE Comment on above: Performed By: #### 5 6101, [id number] ####[facility] [place] [address], [facility] Start: 06-28-2018 INTRODUCE OF OTH THE RAP SUBST INTO RESP TRACT, VIA OPENING TOMERIN MIS Start: 06-27-2018 EXCISION OF ABD SUBC U/FASCIA, OPEN APPROACH MEG ABEBE Start: 06-27-2018 REPAIR SMALL INTESTI NE, OPEN APPROACH MEG ABEBE Plan of Treatment Date Care Activity Detail Author Start: 03-07-2025 Bacteria identified in Urine by Culture Urine Culture [facility] Start: 03-07-2025 Urine culture [facility] Start: 2004 Pneumococcal Vaccine: 65+ Years (1 - PCV) Pneumococcal Vaccine: 65+ Years (1 - PCV) [facility] Payers Date Payer Category Payer Private Health Insurance [facility] [id number] 2020 Self-pay [id number] 1960 Medicare [id number] 1959 Self-pay [id number] 1959 Unknown 1959 Unknown [id number] 1939 Unknown [id number] 2.16.8 [id number] 1939 Unknown [id number] 2.16.8 [id number] 1939 Unknown [id number] 2.16.8 [id number] 1939 Unknown [id number] 2.16.84 [id number] 1939 Unknown [id number] 2.16.84 [id number] 1939 Unknown [id number] 2.16.84 0.1.490035.3.579.2.593 1939 Unknown [id number] 2.16.84 0.1.749490.3.579.2.593 1939 Unknown [id number] 2.16.84 [id number] 1939 Unknown [id number] 2.16.84 [id number] 1939 Unknown [id number] 2.16.84 0.1.699271.3.579.2.593 1939 Unknown [id number] 2.16.84 [id number] 1939 Unknown [id number] 2.16.84 [id number] 1939 Unknown [id number] 2.16. [id number] Medicare [id number] Unknown [id number] 2.16.8 [id number] Unknown [id number] 2.16.8 [id number] Social History Date Type Detail Facility Tobacco smoking status NHIS Tobacco smoking consumption unknown [facility] Start: 1940 Sex Assigned At Not on file [facility] Gender identity Not on file [facility] Start: 05-03-2024 Tobacco smoking status NHIS Ex-smoker (finding) [facility] Start: 1940 Sex Assigned At Female F [facility] Start: 03-09-2025 Sex Female (finding) [facility] Clinical Notes 10-17-2020 to 05-03-2024 Note Date & Type Note Facility 05-03-2024 Progress note Note Date/Time May 03, 2024 1:14pm [facility] [address] [place] [address] Wound Center Provider Note Signed Patient: Vidhya Giordano MR#: [id number] : 1940 Acct:[id number] Age/Sex: 83 / F Copies to: MD Wendy Verdugo APRN~ HPI Date of Visit Date of Visit: Date of Service: 05/03/2024 Time of Service: 13:12 Narrative HPI: Vidhya is an 81 year old female presenting to [facility] wound care program for afollow up visit for an abdominal ulcer. 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 Her daughter states that she did have mesh removed from the area but that there is still mesh in place and I do wonder if this area will not heal because of the foreign body that is still in place- Vidhya has no intention of any further surgical procedures. The patient reports that this area has been opening on and off for the past 3-4 years. She is currently living with her daughter at her home and she has HH in place. I did order collagen silver and bordered foam for bioburden control and to assist in healing- the area looks epithelialized today 04/08/22. The patient reports that her appetite has been good- I did provide her with Humble samples, unflavored and flavored and did educate her and her daughter about obtaining these if she likes them. Healing of the area will be largely dependent on an adequate diet, compliance with dressing changes, and prevention of infection- it is highly likely that this will never remain healed given the internal mesh. She can be seen every 8 weeks for maintenance. 06/03/22 the area is stable, orders kept the same, can be seen again in 8 weeks for maintenance 07/29/22 stable, no real change, silver nitrate was applied today, orders kept asis, 8 week appt 09/23/22 stable, no change, orders kept the same, 8 week appt to follow for any acute infection or changes, they understand that this will not heal 11/18/22 stable, no change, no change to orders, 8 week appt 01/13/23 stable, no change, orders changed to include iodoflex, prefers to keep appts at 8 week intervals, understands that healing will not occur 03/24/23 stable, no change, orders the same as 01/13/ visit, patient and daughter still prefer to visit but do understand that this will not heal 05/19/23 stable again, [facility] we will order suppliesfrom a dme supplier, orders the same since the daughter prefers it that way, 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, 8 week appt 07/14/23 stable, no real change, orders the same, likely not going to heal withoutsurgical intervention and since they decline a consult our goal is not healing but rather keeping her comfortable, 8 week appt 09/08/23 still the same, no change, no change expected given the fistula, 8 week appt 11/03/23 stable, changed orders to alginate silver, 8 week appt, daughter present for visit 12/29/22 stable, no acute infection signs, collagen silver and alginate silver for something different to see if the collagen will stimulate any collagen growth, 8 week appt, daughter present and still performs the dressings 03/01/24 stable, no change, same orders of collagen silver and iodoflex since thepatient and family are happy with this order, [facility] and [facility] will think about getting this since she qualifies for the skilled dressing and taxing effort to leave the home, no acute infection noted, doubtful this will heal given the fistula and her desire to not have surgery, 8 week appt 05/03/24 hypergranulated today, silver nitrate applied, orders the same, showed us a spot on her lle and by the explanation of how it comes and goes and scabs- it sounds like derm should look at this area and so 2 local options were provided, 8 week appt here, no acute infection noted Subjective Pain Abdomen: Pain Description: Intermittent Pain Intensity: 7 Wound/Ulcer History Mode of Arrival/ Residence Hall Director: Family Assistive Device Used Today: Wheelchair Lives with:: Children Appetite Description: Within Normal Limits Who helps w/ dressing change?: Home Health Why Do You Need Help?: Can't Reach Ulcer, Limited mobility, Unsafe leave home byself and Taxing effort to leave home Smoking Status: Former smoker [facility], [facility] Medical History (Updated 07/14/23 @ 13:12 by Wendy Scott APRN) Skin ulcer of abdomen Intestinal fistula Bipolar disorder Major depressive disorder Alzheimer disease Hyperlipemia Neck fracture Dementia Muscle weakness Chronic pain Chronic UTI SOB (shortness of breath) HBP (high blood pressure) Gout Surgical History H/O: hysterectomy Hx of cholecystectomy Family History Mother Cancer Daughter Cancer Sister Cancer Social History Smoking Status: Former smoker Tobacco Type: cigarettes Substance Use Type: None Grafts History of Graft History of Graft?: No Exam Physical Exam Vital Signs: Temp Pulse Resp BP O2 Del Method 97.3 F L 56 L 20 106/59 L Room Air 05/03/24 13:02 05/03/24 13:02 05/03/24 13:02 05/03/24 13:02 03/01/24 14:47 Const General: cooperative, comfortable and no acute distress Nutritional Appearance: obese Orientation: alert, awake and oriented x3 Lower/Upper Extremity Exam Vascular Exam-Pulses Left Brachial: Pulse Assessment Method: NIBP Objective Meds/Allergies Home Medications albuterol sulfate 90 mcg/actuation aerosol inhaler (ProAir HFA) 2 puff inhalation Q6HR PRN Shortness Of Breath 12/23/17 [History Confirmed 11/03/23] atenolol 25 mg tablet 12.5 mg PO DAILY 12/23/17 [History Confirmed 11/03/23] buprenorphine 20 mcg/hour weekly transdermal patch 20 mcg/hr topical QWEEK 12/23/17 [History Confirmed 11/03/23] calcium carbonate 600 mg-vitamin D3 20 mcg (800 unit) chewable tablet (Caltrate 600 plus D) 1 tab PO DAILY 12/23/17 [History Confirmed 11/03/23] chlorpheniramine maleate 4 mg tablet (Chlor-Trimeton) 2 mg PO DAILY 12/23/17 [History Confirmed 11/03/23] donepezil 5 mg tablet 5 mg PO DAILY 12/23/17 [History Confirmed 11/03/23] escitalopram oxalate 20 mg tablet 20 mg PO BID 12/23/17 [History Confirmed 11/03/23] gabapentin 600 mg tablet 800 mg PO DAILY 12/23/17 [History Confirmed 11/03/23] multivitamin (Daily-Justo tablet) 1 tab PO DAILY 12/23/17 [History Confirmed 11/03/23] pantoprazole 40 mg tablet,delayed release 40 mg PO DAILY 12/23/17 [History Confirmed 11/03/23] triamcinolone acetonide 0.1 % topical ointment 1 applic topical DAILY #30 grams 12/23/17 [Rx Confirmed 11/03/23] acetaminophen 650 mg tablet,extended release 650 mg PO Q4-6H PRN Pain 05/10/19 [History Confirmed 11/03/23] allopurinol 100 mg tablet 100 mg PO DAILY 05/10/19 [History Confirmed 11/03/23] cyanocobalamin (vitamin B-12) 2,500 mcg sublingual tablet (Vitamin B-12) 2,500 mcg sublingual DAILY 05/10/19 [History Confirmed 11/03/23] cyclobenzaprine 10 mg tablet 10 mg PO BID PRN Muscle Spasm 05/10/19 [History Confirmed 11/03/23] lactobacillus combination no.4 3 billion cell capsule (Probiotic) 3,000 mmu cells PO DAILY 05/10/19 [History Confirmed 11/03/23] meclizine 12.5 mg tablet 12.5 mg PO DAILY PRN Dizziness 05/10/19 [History Confirmed 11/03/23] metformin 500 mg tablet 500 mg PO DAILY 05/10/19 [History Confirmed 11/03/23] ondansetron 4 mg disintegrating tablet 4 mg PO Q4H PRN Nausea 05/10/19 [History Confirmed 11/03/23] polyethylene glycol 3350 17 gram oral powder packet (Miralax) 17 g PO DAILY PRN Constipation 05/10/19 [History Confirmed 11/03/23] pravastatin 10 mg tablet 10 mg PO DAILY 05/10/19 [History Confirmed 11/03/23] risperidone 0.25 mg tablet 0.25 mg PO BID 05/10/19 [History Confirmed 11/03/23] spironolactone 25 mg tablet 25 mg PO DAILY 05/10/19 [History Confirmed 11/03/23] valacyclovir 1 gram tablet 1,000 mg PO TID 02/11/22 [History Confirmed 11/03/23] Allergies cat dander Allergy (Verified 04/08/22 13:01) Sneezing codeine Allergy (Verified 04/08/22 13:01) Unknown Reaction glycerin Allergy (Verified 04/08/22 13:01) Unknown Reaction latex Allergy (Verified 04/08/22 13:01) Unknown Reaction lidocaine Allergy (Verified 04/08/22 13:01) Unknown Reaction meperidine [From Demerol] Allergy (Verified 04/08/22 13:01) Confusion mold Allergy (Verified 04/08/22 13:01) Sneezing NSAIDS (Non-Steroidal Anti-Inflamma Allergy (Verified 04/08/22 13:01) Rash Sulfa (Sulfonamide Antibiotics) Allergy (Verified 04/08/22 13:01) Rash Wound/Ulcer Abdomen: Type: Surgical Wound (Non-healing surgical wound) Thickness: Full Bed Appearance: Beefy Red, Hypergranulation and [place] Percent of Wound Bed Granulated/Red: 100 Percent of Devitalized: 0 Length (cm): 0.3 Width (cm): 0.2 Depth (cm): 0.1 CM Sq: 0.060 Surrounding Tissue Appearance: Hyperpigmented Surrounding Tissue Temp: Warm Drainage Amount: Moderate Drainage Description: Serosanguineous and Yellow Drainage Odor: No Odor Lidocaine Applied Topically: 2% Jelly Chemical Cauterization: Chem Caut-Hypergranulation Procedures Time Out: 2 Patient Identifiers, Correct Patient, Correct Side/Site, Correct Procedure and Safety Issues Reviewed Procedure: silver nitrate applied to the wound to knock down the hypergranulated tissue- she tolerated well Results Height: 5 ft Weight: 73.21 kg Body Mass Index: 31.5 Assessment/Plan Assessment/Plan (1) Surgical wound, non healing: Qualifiers: Encounter type: sequela Qualified Code(s): T81.89XS - Other complications of procedures, not elsewhere classified, sequela Code(s): T81.89XA - Other complications of procedures, not elsewhere classified, initial encounter (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: Qualifiers: Encounter type: initial encounter Qualified Code(s): T85.79XA - Infection and inflammatory reaction due to other internal prosthetic devices, implants and grafts, initial encounter Code(s): T85.79XA - Infection and inflammatory reaction due to other internal prosthetic devices, implants and grafts, initial encounter (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 - Fistula of intestine (4) Obesity: Code(s): E66.9 - Obesity, unspecified (5) Limited mobility: Code(s): Z74.09 - Other reduced mobility (6) Requires daily assistance for activities of daily living (ADL) and comfort needs: Code(s): Z74.1 - Need for assistance with personal care (7) Dementia: Code(s): F03.90 - Unspecified dementia, unspecified severity, without behavioral disturbance, psychotic disturbance, mood disturbance, and anxiety (8) Inflammation: Plan see orders and hpi Time spent with patient Time Spent With Patient (min): 12 Dictated By: Wendy Scott APRN DD/ 11 Signed By: <Electronically signed by DG Scott> 05/03/241313 [facility] Work Phone: 1(766) 832-562304-24-2024 Progress note Author Wendy Scott [facility] March 01, 2024 2:57pm Note Date/Time March 01, 2024 2:5 8pm [facility] [address] [place] [address] Wound Center Provider Note Signed Patient: Vidhya Giordano MR#: [id number] : 1940 Acct:[id number] Age/Sex: 83 / F Copies to: MD Wendy Verdugo, DG~ HPI Date of Visit Date of Visit: Date of Service: 03/01/2024 Time of Service: 14:55 Narrative HPI: Vidhya is an 81 year old female presenting to [facility] wound care program for afollow up visit for an abdominal ulcer. 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 Her daughter states that she did have mesh removed from the area but that there is still mesh in place and I do wonder if this area will not heal because of the foreign body that is still in place- Vidhya has no intention of any further surgical procedures. The patient reports that this area has been opening on and off for the past 3-4 years. She is currently living with her daughter at her home and she has HH in place. I did order collagen silver and bordered foam for bioburden control and to assist in healing- the area looks epithelialized today 04/08/22. The patient reports that her appetite has been good- I did provide her with Humble samples, unflavored and flavored and did educate her and her daughter about obtaining these if she likes them. Healing of the area will be largely dependent on an adequate diet, compliance with dressing changes, and prevention of infection- it is highly likely that this will never remain healed given the internal mesh. She can be seen every 8 weeks for maintenance. 06/03/22 the area is stable, orders kept the same, can be seen again in 8 weeks for maintenance 07/29/22 stable, no real change, silver nitrate was applied today, orders kept asis, 8 week appt 09/23/22 stable, no change, orders kept the same, 8 week appt to follow for any acute infection or changes, they understand that this will not heal 11/18/22 stable, no change, no change to orders, 8 week appt 3/8/23 stable, no change, orders changed to include iodoflex, prefers to keep appts at 8 week intervals, understands that healing will not occur 03/24/23 stable, no change, orders the same as 01/13/ visit, patient and daughter still prefer to visit but do understand that this will not heal 05/19/23 stable again, [facility] suppliesfrom a dme supplier, orders the same since the daughter prefers it that way, 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, 8 week appt 07/14/23 stable, no real change, orders the same, likely not going to heal withoutsurgical intervention and since they decline a consult our goal is not healing but rather keeping her comfortable, 8 week appt 09/08/23 still the same, no change, no change expected given the fistula, 8 week appt 11/03/23 stable, changed orders to alginate silver, 8 week appt, daughter present for visit 12/29/22 stable, no acute infection signs, collagen silver and alginate silver for something different to see if the collagen will stimulate any collagen growth, 8 week appt, daughter present and still performs the dressings 03/01/24 stable, no change, same orders of collagen silver and iodoflex since thepatient and family are happy with this order, [facility] and [facility] will think about getting this since she qualifies for the skilled dressing and taxing effort to leave the home, no acute infection noted, doubtful this will heal given the fistula and her desire to not have surgery, 8 week appt Subjective Pain Abdomen: Pain Description: Constant Pain Intensity: 0 Pain Management Techniques Other/Comment: it bhargav hurts all the time Wound/Ulcer History Mode of Arrival/ Residence Hall Director: Family Assistive Device Used Today: Wheelchair Lives with:: Children Appetite Description: Within Normal Limits Who helps w/ dressing change?: Home Health Why Do You Need Help?: Can't Reach Ulcer, Limited mobility, Unsafe leave home byself and Taxing effort to leave home Smoking Status: Former smoker [facility], [facility] Medical History (Updated 07/14/23 @ 13:12 by Wendy Scott APRN) Skin ulcer of abdomen Intestinal fistula Bipolar disorder Major depressive disorder Alzheimer disease Hyperlipemia Neck fracture Dementia Muscle weakness Chronic pain Chronic UTI SOB (shortness of breath) HBP (high blood pressure) Gout Surgical History H/O: hysterectomy Hx of cholecystectomy Family History Mother Cancer Daughter Cancer Sister Cancer Social History Smoking Status: Former smoker Tobacco Type: cigarettes Substance Use Type: None Grafts History of Graft History of Graft?: No Exam Physical Exam Vital Signs: Temp Pulse Resp BP O2 Del Method 97.5 F L 69 20 138/78 Room Air 03/01/24 14:47 03/01/24 14:47 03/01/24 14:47 03/01/24 14:47 03/01/24 14:47 Const General: cooperative, comfortable and no acute distress Nutritional Appearance: obese Orientation: alert, awake and oriented x3 Lower/Upper Extremity Exam Vascular Exam-Pulses Left Brachial: Pulse Assessment Method: NIBP Objective Meds/Allergies Home Medications albuterol sulfate 90 mcg/actuation aerosol inhaler (ProAir HFA) 2 puff inhalation Q6HR PRN Shortness Of Breath 12/23/17 [History Confirmed 11/03/23] atenolol 25 mg tablet 12.5 mg PO DAILY 12/23/17 [History Confirmed 11/03/23] buprenorphine 20 mcg/hour weekly transdermal patch 20 mcg/hr topical QWEEK 12/23/17 [History Confirmed 11/03/23] calcium carbonate 600 mg-vitamin D3 20 mcg (800 unit) chewable tablet (Caltrate 600 plus D) 1 tab PO DAILY 12/23/17 [History Confirmed 11/03/23] chlorpheniramine maleate 4 mg tablet (Chlor-Trimeton) 2 mg PO DAILY 12/23/17 [History Confirmed 11/03/23] donepezil 5 mg tablet 5 mg PO DAILY 12/23/17 [History Confirmed 11/03/23] escitalopram oxalate 20 mg tablet 20 mg PO BID 12/23/17 [History Confirmed 11/03/23] gabapentin 600 mg tablet 800 mg PO DAILY 12/23/17 [History Confirmed 11/03/23] multivitamin (Daily-Justo tablet) 1 tab PO DAILY 12/23/17 [History Confirmed 11/03/23] pantoprazole 40 mg tablet,delayed release 40 mg PO DAILY 12/23/17 [History Confirmed 11/03/23] triamcinolone acetonide 0.1 % topical ointment 1 applic topical DAILY #30 grams 12/23/17 [Rx Confirmed 11/03/23] acetaminophen 650 mg tablet,extended release 650 mg PO Q4-6H PRN Pain 05/10/19 [History Confirmed 11/03/23] allopurinol 100 mg tablet 100 mg PO DAILY 05/10/19 [History Confirmed 11/03/23] cyanocobalamin (vitamin B-12) 2,500 mcg sublingual tablet (Vitamin B-12) 2,500 mcg sublingual DAILY 05/10/19 [History Confirmed 11/03/23] cyclobenzaprine 10 mg tablet 10 mg PO BID PRN Muscle Spasm 05/10/19 [History Confirmed 11/03/23] lactobacillus combination no.4 3 billion cell capsule (Probiotic) 3,000 mmu cells PO DAILY 05/10/19 [History Confirmed 11/03/23] meclizine 12.5 mg tablet 12.5 mg PO DAILY PRN Dizziness 05/10/19 [History Confirmed 11/03/23] metformin 500 mg tablet 500 mg PO DAILY 05/10/19 [History Confirmed 11/03/23] ondansetron 4 mg disintegrating tablet 4 mg PO Q4H PRN Nausea 05/10/19 [History Confirmed 11/03/23] polyethylene glycol 3350 17 gram oral powder packet (Miralax) 17 g PO DAILY PRN Constipation 05/10/19 [History Confirmed 11/03/23] pravastatin 10 mg tablet 10 mg PO DAILY 05/10/19 [History Confirmed 11/03/23] risperidone 0.25 mg tablet 0.25 mg PO BID 05/10/19 [History Confirmed 11/03/23] spironolactone 25 mg tablet 25 mg PO DAILY 05/10/19 [History Confirmed 11/03/23] valacyclovir 1 gram tablet 1,000 mg PO TID 02/11/22 [History Confirmed 11/03/23] Allergies cat dander Allergy (Verified 04/08/22 13:01) Sneezing codeine Allergy (Verified 04/08/22 13:01) Unknown Reaction glycerin Allergy (Verified 04/08/22 13:01) Unknown Reaction latex Allergy (Verified 04/08/22 13:01) Unknown Reaction lidocaine Allergy (Verified 04/08/22 13:01) Unknown Reaction meperidine [From Demerol] Allergy (Verified 04/08/22 13:01) Confusion mold Allergy (Verified 04/08/22 13:01) Sneezing NSAIDS (Non-Steroidal Anti-Inflamma Allergy (Verified 04/08/22 13:01) Rash Sulfa (Sulfonamide Antibiotics) Allergy (Verified 04/08/22 13:01) Rash Wound/Ulcer Abdomen: Type: Surgical Wound (Non-healing surgical wound) Thickness: Full Bed Appearance: Beefy Red and [place] Percent of Wound Bed Granulated/Red: 100 Percent of Devitalized: 0 Length (cm): 0.2 Width (cm): 0.3 Depth (cm): 0.3 CM Sq: 0.060 Surrounding Tissue Appearance: Hyperpigmented Surrounding Tissue Temp: Warm Drainage Amount: Moderate Drainage Description: Serosanguineous and Yellow Drainage Odor: No Odor Results Height: 5 ft Weight: 73.21 kg Body Mass Index: 31.5 Assessment/Plan Assessment/Plan (1) Surgical wound, non healing: Qualifiers: Encounter type: sequela Qualified Code(s): T81.89XS - Other complications of procedures, not elsewhere classified, sequela Code(s): T81.89XA - Other complications of procedures, not elsewhere classified, initial encounter (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: Qualifiers: Encounter type: initial encounter Qualified Code(s): T85.79XA - Infection and inflammatory reaction due to other internal prosthetic devices, implants and grafts, initial encounter Code(s): T85.79XA - Infection and inflammatory reaction due to other internal prosthetic devices, implants and grafts, initial encounter (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 - Fistula of intestine (4) Obesity: Code(s): E66.9 - Obesity, unspecified (5) Limited mobility: Code(s): Z74.09 - Other reduced mobility (6) Requires daily assistance for activities of daily living (ADL) and comfort needs: Code(s): Z74.1 - Need for assistance with personal care (7) Dementia: Code(s): F03.90 - Unspecified dementia, unspecified severity, without behavioral disturbance, psychotic disturbance, mood disturbance, and anxiety (8) Inflammation: Plan see orders and hpi Time spent with patient Time Spent With Patient (min): 11 Dictated By: Wendy Scott APRN DD/ 1455 Signed By: <Electronically signed by DG Sctot> 03/01/24 1455 [facility] Work Phone: 1(194) 901-640902-21-2024 Progress note Author Wendy Scott [facility] December 29, 2023 1:12pm Note Date/Time December 29, 2023 1:34pm [facility] [address] [place] [address] Wound Center Provider Note Signed Patient: Vidhya Giordano MR#: [id number] : 1940 Acct:[id number] Age/Sex: 83 / F Copies to: MD Wendy Verdugo APRN~ HPI Date of Visit Date of Visit: Date of Service: 12/29/2023 Time of Service: 13:10 Narrative HPI: Vidhya is an 81 year old female presenting to [facility] wound care program for afollow up visit for an abdominal ulcer. 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 Her daughter states that she did have mesh removed from the area but that there is still mesh in place and I do wonder if this area will not heal because of the foreign body that is still in place- Vidhya has no intention of any further surgical procedures. The patient reports that this area has been opening on and off for the past 3-4 years. She is currently living with her daughter at her home and she has HH in place. I did order collagen silver and bordered foam for bioburden control and to assist in healing- the area looks epithelialized today 04/08/22. The patient reports that her appetite has been good- I did provide her with [employer] samples, unflavored and flavored and did educate her and her daughter about obtaining these if she likes them. Healing of the area will be largely dependent on an adequate diet, compliance with dressing changes, and prevention of infection- it is highly likely that this will never remain healed given the internal mesh. She can be seen every 8 weeks for maintenance. 06/03/22 the area is stable, orders kept the same, can be seen again in 8 weeks for maintenance 07/29/22 stable, no real change, silver nitrate was applied today, orders kept asis, 8 week appt 09/23/22 stable, no change, orders kept the same, 8 week appt to follow for any acute infection or changes, they understand that this will not heal 11/18/22 stable, no change, no change to orders, 8 week appt 01/13/23 stable, no change, orders changed to include iodoflex, prefers to keep appts at 8 week intervals, understands that healing will not occur 03/24/23 stable, no change, orders the same as 01/13/ visit, patient and daughter still prefer to visit but do understand that this will not heal 05/19/23 stable again, [facility] a dme supplier, orders the same since the daughter prefers it that way, 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, 8 week appt 07/14/23 stable, no real change, orders the same, likely not going to heal withoutsurgical intervention and since they decline a consult our goal is not healing but rather keeping her comfortable, 8 week appt 09/08/23 still the same, no change, no change expected given the fistula, 8 week appt 11/03/23 stable, changed orders to alginate silver, 8 week appt, daughter present for visit 12/29/22 stable, no acute infection signs, collagen silver and alginate silver for something different to see if the collagen will stimulate any collagen growth, 8 week appt, daughter present and still performs the dressings Subjective Pain Abdomen: Pain Description: Intermittent Pain Intensity: 0 Wound/Ulcer History Mode of Arrival/ Residence Hall Director: Family Assistive Device Used Today: Wheelchair Lives with:: Children Appetite Description: Within Normal Limits Who helps w/ dressing change?: Home Health Why Do You Need Help?: Can't Reach Ulcer, Limited mobility, Unsafe leave home byself and Taxing effort to leave home Smoking Status: Former smoker [facility], [facility] Medical History (Updated 07/14/23 @ 13:12 by Wendy Scott APRN) Skin ulcer of abdomen Intestinal fistula Bipolar disorder Major depressive disorder Alzheimer disease Hyperlipemia Neck fracture Dementia Muscle weakness Chronic pain Chronic UTI SOB (shortness of breath) HBP (high blood pressure) Gout Surgical History H/O: hysterectomy Hx of cholecystectomy Family History Mother Cancer Daughter Cancer Sister Cancer Social History Smoking Status: Former smoker Tobacco Type: cigarettes Substance Use Type: None Grafts History of Graft History of Graft?: No Exam Physical Exam Vital Signs: Temp Pulse Resp BP O2 Del Method 97.2 F L 60 18 140/77 Room Air 12/29/23 13:07 12/29/23 13:07 12/29/23 13:07 12/29/23 13:07 12/29/23 13:07 Const General: cooperative, comfortable and no acute distress Nutritional Appearance: obese Orientation: alert, awake and oriented x3 Lower/Upper Extremity Exam Vascular Exam-Pulses Left Brachial: Pulse Assessment Method: NIBP Objective Meds/Allergies Home Medications albuterol sulfate 90 mcg/actuation aerosol inhaler (ProAir HFA) 2 puff inhalation Q6HR PRN Shortness Of Breath 12/23/17 [History Confirmed 11/03/23] atenolol 25 mg tablet 12.5 mg PO DAILY 12/23/17 [History Confirmed 11/03/23] buprenorphine 20 mcg/hour weekly transdermal patch 20 mcg/hr topical QWEEK 12/23/17 [History Confirmed 11/03/23] calcium carbonate 600 mg-vitamin D3 20 mcg (800 unit) chewable tablet (Caltrate 600 plus D) 1 tab PO DAILY 12/23/17 [History Confirmed 11/03/23] chlorpheniramine maleate 4 mg tablet (Chlor-Trimeton) 2 mg PO DAILY 12/23/17 [History Confirmed 11/03/23] donepezil 5 mg tablet 5 mg PO DAILY 12/23/17 [History Confirmed 11/03/23] escitalopram oxalate 20 mg tablet 20 mg PO BID 12/23/17 [History Confirmed 11/03/23] gabapentin 600 mg tablet 800 mg PO DAILY 12/23/17 [History Confirmed 11/03/23] multivitamin (Daily-Justo tablet) 1 tab PO DAILY 12/23/17 [History Confirmed 11/03/23] pantoprazole 40 mg tablet,delayed release 40 mg PO DAILY 12/23/17 [History Confirmed 11/03/23] triamcinolone acetonide 0.1 % topical ointment 1 applic topical DAILY #30 grams 12/23/17 [Rx Confirmed 11/03/23] acetaminophen 650 mg tablet,extended release 650 mg PO Q4-6H PRN Pain 05/10/19 [History Confirmed 11/03/23] allopurinol 100 mg tablet 100 mg PO DAILY 05/10/19 [History Confirmed 11/03/23] cyanocobalamin (vitamin B-12) 2,500 mcg sublingual tablet (Vitamin B-12) 2,500 mcg sublingual DAILY 05/10/19 [History Confirmed 11/03/23] cyclobenzaprine 10 mg tablet 10 mg PO BID PRN Muscle Spasm 05/10/19 [History Confirmed 11/03/23] lactobacillus combination no.4 3 billion cell capsule (Probiotic) 3,000 mmu cells PO DAILY 05/10/19 [History Confirmed 11/03/23] meclizine 12.5 mg tablet 12.5 mg PO DAILY PRN Dizziness 05/10/19 [History Confirmed 11/03/23] metformin 500 mg tablet 500 mg PO DAILY 05/10/19 [History Confirmed 11/03/23] ondansetron 4 mg disintegrating tablet 4 mg PO Q4H PRN Nausea 05/10/19 [History Confirmed 11/03/23] polyethylene glycol 3350 17 gram oral powder packet (Miralax) 17 g PO DAILY PRN Constipation 05/10/19 [History Confirmed 11/03/23] pravastatin 10 mg tablet 10 mg PO DAILY 05/10/19 [History Confirmed 11/03/23] risperidone 0.25 mg tablet 0.25 mg PO BID 05/10/19 [History Confirmed 11/03/23] spironolactone 25 mg tablet 25 mg PO DAILY 05/10/19 [History Confirmed 11/03/23] valacyclovir 1 gram tablet 1,000 mg PO TID 02/11/22 [History Confirmed 11/03/23] Allergies cat dander Allergy (Verified 04/08/22 13:01) Sneezing codeine Allergy (Verified 04/08/22 13:01) Unknown Reaction glycerin Allergy (Verified 04/08/22 13:01) Unknown Reaction latex Allergy (Verified 04/08/22 13:01) Unknown Reaction lidocaine Allergy (Verified 04/08/22 13:01) Unknown Reaction meperidine [From Demerol] Allergy (Verified 04/08/22 13:01) Confusion mold Allergy (Verified 04/08/22 13:01) Sneezing NSAIDS (Non-Steroidal Anti-Inflamma Allergy (Verified 04/08/22 13:01) Rash Sulfa (Sulfonamide Antibiotics) Allergy (Verified 04/08/22 13:01) Rash Wound/Ulcer Abdomen: Type: Surgical Wound (Non-healing surgical wound) Thickness: Full Bed Appearance: Beefy Red and [place] Percent of Wound Bed Granulated/Red: 100 Percent of Devitalized: 0 Length (cm): 0.3 Width (cm): 0.3 Depth (cm): 0.2 CM Sq: 0.090 Surrounding Tissue Appearance: Hyperpigmented Surrounding Tissue Temp: Warm Drainage Amount: Moderate Drainage Description: Serosanguineous and Yellow Drainage Odor: No Odor Results Height: 5 ft Weight: 73.21 kg Body Mass Index: 31.5 Assessment/Plan Assessment/Plan (1) Surgical wound, non healing: Qualifiers: Encounter type: sequela Qualified Code(s): T81.89XS - Other complications of procedures, not elsewhere classified, sequela Code(s): T81.89XA - Other complications of procedures, not elsewhere classified, initial encounter (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: Qualifiers: Encounter type: initial encounter Qualified Code(s): T85.79XA - Infection and inflammatory reaction due to other internal prosthetic devices, implants and grafts, initial encounter Code(s): T85.79XA - Infection and inflammatory reaction due to other internal prosthetic devices, implants and grafts, initial encounter (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 - Fistula of intestine (4) Obesity: Code(s): E66.9 - Obesity, unspecified (5) Limited mobility: Code(s): Z74.09 - Other reduced mobility (6) Requires daily assistance for activities of daily living (ADL) and comfort needs: Code(s): Z74.1 - Need for assistance with personal care (7) Dementia: Code(s): F03.90 - Unspecified dementia, unspecified severity, without behavioral disturbance, psychotic disturbance, mood disturbance, and anxiety (8) Inflammation: Plan see orders and hpi Time spent with patient Time Spent With Patient (min): 10 Dictated By: Wendy Scott APRN DD/ 1310 Signed By: <Electronically signed by DG Scott> 12/29/23 1312 [facility] Work Phone: [phone]) 938-222202-05-2024 History of Present illness Narrative* ZORA Infante - 12/13/2023 1:00 PM EST History: Pt here for right ear cleaning. She recently saw her pcp and was told she had a lot of wax in her right ear. Otoscopic Exam: Right Ear: Cerumen impaction Left Ear: Minimal cerumen Procedure: Cerumen removed from each ear canal under direct otoscopy using suction and curette without incident. TM intact post cleaning. Pt to return prn documented in this encounterCox [id number] Progress note Author Wendy Scott [facility] November 03, 2023 1:09pm Note Date/Time November 03, 2023 1:09pm [facility] [address] [place] [address] Wound Center Provider Note Signed Patient: Vidhya Giordano MR#: [id number] : 1940 Acct:[id number] Age/Sex: 83 / F Copies to: MD Wendy Verdugo APRN~ HPI Date of Visit Date of Visit: Date of Service: 11/03/2023 Time of Service: 13:08 Narrative HPI: Vidhya is an 81 year old female presenting to [facility] wound care program for afollow up visit for an abdominal ulcer. 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 Her daughter states that she did have mesh removed from the area but that there is still mesh in place and I do wonder if this area will not heal because of the foreign body that is still in place- Vidhya has no intention of any further surgical procedures. The patient reports that this area has been opening on and off for the past 3-4 years. She is currently living with her daughter at her home and she has HH in place. I did order collagen silver and bordered foam for bioburden control and to assist in healing- the area looks epithelialized today 04/08/22. The patient reports that her appetite has been good- I did provide her with [employer] samples, unflavored and flavored and did educate her and her daughter about obtaining these if she likes them. Healing of the area will be largely dependent on an adequate diet, compliance with dressing changes, and prevention of infection- it is highly likely that this will never remain healed given the internal mesh. She can be seen every 8 weeks for maintenance. 06/03/22 the area is stable, orders kept the same, can be seen again in 8 weeks for maintenance 07/29/22 stable, no real change, silver nitrate was applied today, orders kept asis, 8 week appt 09/23/22 stable, no change, orders kept the same, 8 week appt to follow for any acute infection or changes, they understand that this will not heal 11/18/22 stable, no change, no change to orders, 8 week appt 01/13/23 stable, no change, orders changed to include iodoflex, prefers to keep appts at 8 week intervals, understands that healing will not occur 03/24/23 stable, no change, orders the same as 01/13/ visit, patient and daughter still prefer to visit but do understand that this will not heal 05/19/23 stable again, [facility] suppliesfrom a dme supplier, orders the same since the daughter prefers it that way, 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, 8 week appt 07/14/23 stable, no real change, orders the same, likely not going to heal withoutsurgical intervention and since they decline a consult our goal is not healing but rather keeping her comfortable, 8 week appt 09/08/23 still the same, no change, no change expected given the fistula, 8 week appt 11/03/23 stable, changed orders to alginate silver, 8 week appt, daughter present for visit Subjective Pain Abdomen: Pain Description: Intermittent Pain Intensity: 0 Wound/Ulcer History Mode of Arrival/ Residence Hall Director: Family Assistive Device Used Today: Wheelchair Lives with:: Children Appetite Description: Within Normal Limits Who helps w/ dressing change?: Home Health Why Do You Need Help?: Can't Reach Ulcer, Limited mobility, Unsafe leave home byself and Taxing effort to leave home Smoking Status: Former smoker [facility], [facility] Medical History (Updated 07/14/23 @ 13:12 by Wendy Scott APRN) Alzheimer disease Bipolar disorder Chronic pain Chronic UTI Dementia Gout HBP (high blood pressure) Hyperlipemia Intestinal fistula Major depressive disorder Muscle weakness Neck fracture Skin ulcer of abdomen SOB (shortness of breath) Surgical History H/O: hysterectomy Hx of cholecystectomy Family History Mother Cancer Daughter Cancer Sister Cancer Social History Smoking Status: Former smoker Tobacco Type: cigarettes Substance Use Type: None Grafts History of Graft History of Graft?: No Exam Physical Exam Vital Signs: Temp Pulse Resp BP O2 Del Method 97.9 F 81 20 121/77 Room Air 11/03/23 13:04 11/03/23 13:04 11/03/23 13:04 11/03/23 13:04 11/03/23 13:04 Const General: cooperative, comfortable and no acute distress Nutritional Appearance: obese Orientation: alert, awake and oriented x3 Lower/Upper Extremity Exam Vascular Exam-Pulses Left Brachial: Pulse Assessment Method: NIBP Objective Meds/Allergies Home Medications albuterol sulfate 90 mcg/actuation aerosol inhaler (ProAir HFA) 2 puff inhalation Q6HR PRN Shortness Of Breath 12/23/17 [History Confirmed 07/14/23] atenolol 25 mg tablet 12.5 mg PO DAILY 12/23/17 [History Confirmed 07/14/23] buprenorphine 20 mcg/hour weekly transdermal patch 20 mcg/hr topical QWEEK 12/23/17 [History Confirmed 07/14/23] calcium carbonate 600 mg-vitamin D3 20 mcg (800 unit) chewable tablet (Caltrate 600 plus D) 1 tab PO DAILY 12/23/17 [History Confirmed 07/14/23] chlorpheniramine maleate 4 mg tablet (Chlor-Trimeton) 2 mg PO DAILY 12/23/17 [History Confirmed 07/14/23] donepezil 5 mg tablet 5 mg PO DAILY 12/23/17 [History Confirmed 07/14/23] escitalopram oxalate 20 mg tablet 20 mg PO BID 12/23/17 [History Confirmed 07/14/23] gabapentin 600 mg tablet 800 mg PO DAILY 12/23/17 [History Confirmed 07/14/23] multivitamin (Daily-Justo tablet) 1 tab PO DAILY 12/23/17 [History Confirmed 07/14/23] pantoprazole 40 mg tablet,delayed release 40 mg PO DAILY 12/23/17 [History Confirmed 07/14/23] triamcinolone acetonide 0.1 % topical ointment 1 applic topical DAILY #30 grams 12/23/17 [Rx Confirmed 07/14/23] acetaminophen 650 mg tablet,extended release 650 mg PO Q4-6H PRN Pain 05/10/19 [History Confirmed 07/14/23] allopurinol 100 mg tablet 100 mg PO DAILY 05/10/19 [History Confirmed 07/14/23] cyanocobalamin (vitamin B-12) 2,500 mcg sublingual tablet (Vitamin B-12) 2,500 mcg sublingual DAILY 05/10/19 [History Confirmed 07/14/23] cyclobenzaprine 10 mg tablet 10 mg PO BID PRN Muscle Spasm 05/10/19 [History Confirmed 07/14/23] lactobacillus combination no.4 3 billion cell capsule (Probiotic) 3,000 mmu cells PO DAILY 05/10/19 [History Confirmed 07/14/23] meclizine 12.5 mg tablet 12.5 mg PO DAILY PRN Dizziness 05/10/19 [History Confirmed 07/14/23] metformin 500 mg tablet 500 mg PO DAILY 05/10/19 [History Confirmed 07/14/23] ondansetron 4 mg disintegrating tablet 4 mg PO Q4H PRN Nausea 05/10/19 [History Confirmed 07/14/23] polyethylene glycol 3350 17 gram oral powder packet (Miralax) 17 g PO DAILY PRN Constipation 05/10/19 [History Confirmed 07/14/23] pravastatin 10 mg tablet 10 mg PO DAILY 05/10/19 [History Confirmed 07/14/23] risperidone 0.25 mg tablet 0.25 mg PO BID 05/10/19 [History Confirmed 07/14/23] spironolactone 25 mg tablet 25 mg PO DAILY 05/10/19 [History Confirmed 07/14/23] valacyclovir 1 gram tablet 1,000 mg PO TID 02/11/22 [History Confirmed 07/14/23] Allergies cat dander Allergy (Verified 04/08/22 13:01) Sneezing codeine Allergy (Verified 04/08/22 13:01) Unknown Reaction glycerin Allergy (Verified 04/08/22 13:01) Unknown Reaction latex Allergy (Verified 04/08/22 13:01) Unknown Reaction lidocaine Allergy (Verified 04/08/22 13:01) Unknown Reaction meperidine [From Demerol] Allergy (Verified 04/08/22 13:01) Confusion mold Allergy (Verified 04/08/22 13:01) Sneezing NSAIDS (Non-Steroidal Anti-Inflamma Allergy (Verified 04/08/22 13:01) Rash Sulfa (Sulfonamide Antibiotics) Allergy (Verified 04/08/22 13:01) Rash Wound/Ulcer Abdomen: Type: Surgical Wound (Non-healing surgical wound) Thickness: Full Bed Appearance: Beefy Red and [place] Percent of Wound Bed Granulated/Red: 100 Percent of Devitalized: 0 Length (cm): 0.1 Width (cm): 0.1 Depth (cm): 0.1 CM Sq: 0.010 Tunneling Position: 00:00 Tunneling Depth: 0 Surrounding Tissue Appearance: Hyperpigmented Surrounding Tissue Temp: Warm Drainage Amount: Moderate Drainage Description: Serosanguineous and Yellow Drainage Odor: No Odor Results Height: 5 ft Weight: 73.21 kg Body Mass Index: 31.5 Assessment/Plan Assessment/Plan (1) Surgical wound, non healing: Qualifiers: Encounter type: sequela Qualified Code(s): T81.89XS - Other complications of procedures, not elsewhere classified, sequela (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: Qualifiers: Encounter type: initial encounter Qualified Code(s): T85.79XA - Infection and inflammatory reaction due to other internal prosthetic devices, implants and grafts, initial encounter (3) Gastrointestinal fistula: (4) Obesity: (5) Limited mobility: (6) Requires daily assistance for activities of daily living (ADL) and comfort needs: (7) Dementia: (8) Inflammation: Plan see orders and hpi Time spent with patient Time Spent With Patient (min): 8 Dictated By: Wendy Scott APRN DD/ 1308 Signed By: <Electronically signed by DG Scott> 11/03/23 1309 [facility] Work Phone: 1([phone]) 126-454911-01-2023 Progress note Author Wendy Scott [facility] September 08, 2023 1:10pm Note Date/Time September 08, 2023 1 :10pm [facility] [address] [place] [address] Wound Center Provider Note Signed Patient: Vidhya Giordano MR#: [id number] : 1940 Acct:[id number] Age/Sex: 83 / F Copies to: MD Wendy Verdugo APRN~ HPI Date of Visit Date of Visit: Date of Service: 09/08/2023 Time of Service: 13:08 Narrative HPI: Vidhya is an 81 year old female presenting to [facility] wound care program for afollow up visit for an abdominal ulcer. 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 Her daughter states that she did have mesh removed from the area but that there is still mesh in place and I do wonder if this area will not heal because of the foreign body that is still in place- Vidhya has no intention of any further surgical procedures. The patient reports that this area has been opening on and off for the past 3-4 years. She is currently living with her daughter at her home and she has HH in place. I did order collagen silver and bordered foam for bioburden control and to assist in healing- the area looks epithelialized today 04/08/22. The patient reports that her appetite has been good- I did provide her with Humble samples, unflavored and flavored and did educate her and her daughter about obtaining these if she likes them. Healing of the area will be largely dependent on an adequate diet, compliance with dressing changes, and prevention of infection- it is highly likely that this will never remain healed given the internal mesh. She can be seen every 8 weeks for maintenance. 06/03/22 the area is stable, orders kept the same, can be seen again in 8 weeks for maintenance 07/29/22 stable, no real change, silver nitrate was applied today, orders kept asis, 8 week appt 09/23/22 stable, no change, orders kept the same, 8 week appt to follow for any acute infection or changes, they understand that this will not heal 11/18/22 stable, no change, no change to orders, 8 week appt 01/13/23 stable, no change, orders changed to include iodoflex, prefers to keep appts at 8 week intervals, understands that healing will not occur 03/24/23 stable, no change, orders the same as 01/13/ visit, patient and daughter still prefer to visit but do understand that this will not heal 05/19/23 stable again, [facility] order suppliesfrom a dme supplier, orders the same since the daughter prefers it that way, 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, 8 week appt 07/14/23 stable, no real change, orders the same, likely not going to heal withoutsurgical intervention and since they decline a consult our goal is not healing but rather keeping her comfortable, 8 week appt 09/08/23 still the same, no change, no change expected given the fistula, 8 week appt Subjective Pain Abdomen: Pain Description: Intermittent and Soreness Pain Intensity: 0 Wound/Ulcer History Mode of Arrival/ Residence Hall Director: Family Assistive Device Used Today: Wheelchair Lives with:: Children Appetite Description: Within Normal Limits Who helps w/ dressing change?: Home Health Why Do You Need Help?: Can't Reach Ulcer, Limited mobility, Unsafe leave home byself and Taxing effort to leave home Smoking Status: Former smoker [facility], [facility] Medical History (Updated 07/14/23 @ 13:12 by Wendy Scott APRN) Alzheimer disease Bipolar disorder Chronic pain Chronic UTI Dementia Gout HBP (high blood pressure) Hyperlipemia Intestinal fistula Major depressive disorder Muscle weakness Neck fracture Skin ulcer of abdomen SOB (shortness of breath) Surgical History H/O: hysterectomy Hx of cholecystectomy Family History Mother Cancer Daughter Cancer Sister Cancer Social History Smoking Status: Former smoker Tobacco Type: cigarettes Substance Use Type: None Grafts History of Graft History of Graft?: No Exam Physical Exam Vital Signs: Temp Pulse Resp BP O2 Del Method 97.5 F L 69 18 99/55 L Room Air 09/08/23 13:03 09/08/23 13:03 09/08/23 13:03 09/08/23 13:03 07/14/23 13:05 Const General: cooperative, comfortable and no acute distress Nutritional Appearance: obese Orientation: alert, awake and oriented x3 Lower/Upper Extremity Exam Vascular Exam-Pulses Left Brachial: Pulse Assessment Method: NIBP Objective Meds/Allergies Home Medications albuterol sulfate 90 mcg/actuation aerosol inhaler (ProAir HFA) 2 puff inhalation Q6HR PRN Shortness Of Breath 12/23/17 [History Confirmed 07/14/23] atenolol 25 mg tablet 12.5 mg PO DAILY 12/23/17 [History Confirmed 07/14/23] buprenorphine 20 mcg/hour weekly transdermal patch 20 mcg/hr topical QWEEK 12/23/17 [History Confirmed 07/14/23] calcium carbonate 600 mg-vitamin D3 20 mcg (800 unit) chewable tablet (Caltrate 600 plus D) 1 tab PO DAILY 12/23/17 [History Confirmed 07/14/23] chlorpheniramine maleate 4 mg tablet (Chlor-Trimeton) 2 mg PO DAILY 12/23/17 [History Confirmed 07/14/23] donepezil 5 mg tablet 5 mg PO DAILY 12/23/17 [History Confirmed 07/14/23] escitalopram oxalate 20 mg tablet 20 mg PO BID 12/23/17 [History Confirmed 07/14/23] gabapentin 600 mg tablet 800 mg PO DAILY 12/23/17 [History Confirmed 07/14/23] multivitamin (Daily-Justo tablet) 1 tab PO DAILY 12/23/17 [History Confirmed 07/14/23] pantoprazole 40 mg tablet,delayed release 40 mg PO DAILY 12/23/17 [History Confirmed 07/14/23] triamcinolone acetonide 0.1 % topical ointment 1 applic topical DAILY #30 grams 12/23/17 [Rx Confirmed 07/14/23] acetaminophen 650 mg tablet,extended release 650 mg PO Q4-6H PRN Pain 05/10/19 [History Confirmed 07/14/23] allopurinol 100 mg tablet 100 mg PO DAILY 05/10/19 [History Confirmed 07/14/23] cyanocobalamin (vitamin B-12) 2,500 mcg sublingual tablet (Vitamin B-12) 2,500 mcg sublingual DAILY 05/10/19 [History Confirmed 07/14/23] cyclobenzaprine 10 mg tablet 10 mg PO BID PRN Muscle Spasm 05/10/19 [History Confirmed 07/14/23] lactobacillus combination no.4 3 billion cell capsule (Probiotic) 3,000 mmu cells PO DAILY 05/10/19 [History Confirmed 07/14/23] meclizine 12.5 mg tablet 12.5 mg PO DAILY PRN Dizziness 05/10/19 [History Confirmed 07/14/23] metformin 500 mg tablet 500 mg PO DAILY 05/10/19 [History Confirmed 07/14/23] ondansetron 4 mg disintegrating tablet 4 mg PO Q4H PRN Nausea 05/10/19 [History Confirmed 07/14/23] polyethylene glycol 3350 17 gram oral powder packet (Miralax) 17 g PO DAILY PRN Constipation 05/10/19 [History Confirmed 07/14/23] pravastatin 10 mg tablet 10 mg PO DAILY 05/10/19 [History Confirmed 07/14/23] risperidone 0.25 mg tablet 0.25 mg PO BID 05/10/19 [History Confirmed 07/14/23] spironolactone 25 mg tablet 25 mg PO DAILY 05/10/19 [History Confirmed 07/14/23] valacyclovir 1 gram tablet 1,000 mg PO TID 02/11/22 [History Confirmed 07/14/23] Allergies cat dander Allergy (Verified 04/08/22 13:01) Sneezing codeine Allergy (Verified 04/08/22 13:01) Unknown Reaction glycerin Allergy (Verified 04/08/22 13:01) Unknown Reaction latex Allergy (Verified 04/08/22 13:01) Unknown Reaction lidocaine Allergy (Verified 04/08/22 13:01) Unknown Reaction meperidine [From Demerol] Allergy (Verified 04/08/22 13:01) Confusion mold Allergy (Verified 04/08/22 13:01) Sneezing NSAIDS (Non-Steroidal Anti-Inflamma Allergy (Verified 04/08/22 13:01) Rash Sulfa (Sulfonamide Antibiotics) Allergy (Verified 04/08/22 13:01) Rash Wound/Ulcer Abdomen: Type: Surgical Wound (Non-healing surgical wound) Thickness: Full Bed Appearance: Beefy Red and [place] Percent of Wound Bed Granulated/Red: 100 Percent of Devitalized: 0 Length (cm): 0.2 Width (cm): 0.2 Depth (cm): 0.3 CM Sq: 0.040 Tunneling Position: 00:00 Tunneling Depth: 0 Surrounding Tissue Appearance: Hyperpigmented Surrounding Tissue Temp: Warm Drainage Amount: Moderate Drainage Description: Serosanguineous and Yellow Drainage Odor: No Odor Results Height: 5 ft Weight: 73.21 kg Body Mass Index: 31.5 Assessment/Plan Assessment/Plan (1) Surgical wound, non healing: Qualifiers: Encounter type: sequela Qualified Code(s): T81.89XS - Other complications of procedures, not elsewhere classified, sequela Code(s): T81.89XA - Other complications of procedures, not elsewhere classified, initial encounter Status: Chronic (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: Assessment/Problem Details: patient states mesh is present in abdomen Qualifiers: Encounter type: initial encounter Qualified Code(s): T85.79XA - Infection and inflammatory reaction due to other internal prosthetic devices, implants and grafts, initial encounter Code(s): T85.79XA - Infection and inflammatory reaction due to other internal prosthetic devices, implants and grafts, initial encounter Status: Suspected (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 - Fistula of intestine Status: Chronic (4) Obesity: Code(s): E66.9 - Obesity, unspecified Status: Chronic (5) Limited mobility: Code(s): Z74.09 - Other reduced mobility Status: Chronic (6) Requires daily assistance for activities of daily living (ADL) and comfort needs: Code(s): Z74.1 - Need for assistance with personal care Status: Chronic (7) Dementia: Code(s): F03.90 - Unspecified dementia, unspecified severity, without behavioral disturbance, psychotic disturbance, mood disturbance, and anxiety Status: Chronic (8) Inflammation: Status: Chronic Time spent with patient Time Spent With Patient (min): 10 Dictated By: Wendy Scott APRN DD/ 1308 Signed By: <Electronically signed by DG Scott> 09/08/23 1310 [facility] Work Phone: 1(832) 837-746209-06-2023 Progress note Author Wendy Scott [facility] July 14, 2023 1:12pm Note Date/Time July 14, 2023 1:13pm [facility] [address] [place] [address] Wound Center Provider Note Signed Patient: Vidhya Giordano MR#: [id number] : 1940 Acct:[id number] Age/Sex: 83 / F Copies to: MD Wendy Verdugo APRN~ HPI Date of Visit Date of Visit: Date of Service: 07/14/2023 Time of Service: 13:10 Narrative HPI: Vidhya is an 81 year old female presenting to [facility] wound care program for afollow up visit for an abdominal ulcer. 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 Her daughter states that she did have mesh removed from the area but that there is still mesh in place and I do wonder if this area will not heal because of the foreign body that is still in place- Vidhya has no intention of any further surgical procedures. The patient reports that this area has been opening on and off for the past 3-4 years. She is currently living with her daughter at her home and she has HH in place. I did order collagen silver and bordered foam for bioburden control and to assist in healing- the area looks epithelialized today 04/08/22. The patient reports that her appetite has been good- I did provide her with Humble samples, unflavored and flavored and did educate her and her daughter about obtaining these if she likes them. Healing of the area will be largely dependent on an adequate diet, compliance with dressing changes, and prevention of infection- it is highly likely that this will never remain healed given the internal mesh. She can be seen every 8 weeks for maintenance. 06/03/22 the area is stable, orders kept the same, can be seen again in 8 weeks for maintenance 07/29/22 stable, no real change, silver nitrate was applied today, orders kept asis, 8 week appt 09/23/22 stable, no change, orders kept the same, 8 week appt to follow for any acute infection or changes, they understand that this will not heal 11/18/22 stable, no change, no change to orders, 8 week appt 01/13/23 stable, no change, orders changed to include iodoflex, prefers to keep appts at 8 week intervals, understands that healing will not occur 03/24/23 stable, no change, orders the same as 01/13/ visit, patient and daughter still prefer to visit but do understand that this will not heal 05/19/23 stable again, [facility] will order suppliesfrom a dme supplier, orders the same since the daughter prefers it that way, 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, 8 week appt 07/14/23 stable, mo real change, orders the same, likely not going to heal withoutsurgical intervention and since they decline a consult our goal is not healing but rather keeping her comfortable, 8 week appt Subjective Pain Abdomen: Pain Description: Intermittent and Soreness Pain Intensity: 0 Wound/Ulcer History Mode of Arrival/ Residence Hall Director: Family Assistive Device Used Today: Wheelchair Lives with:: Children Appetite Description: Within Normal Limits Who helps w/ dressing change?: Home Health Why Do You Need Help?: Can't Reach Ulcer, Limited mobility, Unsafe leave home byself and Taxing effort to leave home Smoking Status: Former smoker [facility], [facility] Medical History (Updated 07/14/23 @ 13:12 by Wendy Scott APRN) Alzheimer disease Bipolar disorder Chronic pain Chronic UTI Dementia Gout HBP (high blood pressure) Hyperlipemia Intestinal fistula Major depressive disorder Muscle weakness Neck fracture Skin ulcer of abdomen SOB (shortness of breath) Surgical History H/O: hysterectomy Hx of cholecystectomy Family History Mother Cancer Daughter Cancer Sister Cancer Social History Smoking Status: Former smoker Tobacco Type: cigarettes Substance Use Type: None Grafts History of Graft History of Graft?: No Exam Physical Exam Vital Signs: Temp Pulse Resp BP O2 Del Method 97.3 F L 80 20 137/73 Room Air 07/14/23 13:05 07/14/23 13:05 07/14/23 13:05 07/14/23 13:05 07/14/23 13:05 Const General: cooperative, comfortable and no acute distress Nutritional Appearance: obese Orientation: alert, awake and oriented x3 Lower/Upper Extremity Exam Vascular Exam-Pulses Left Brachial: Pulse Assessment Method: NIBP Objective Meds/Allergies Home Medications albuterol sulfate 90 mcg/actuation aerosol inhaler (ProAir HFA) 2 puff inhalation Q6HR PRN Shortness Of Breath 12/23/17 [History Confirmed 07/14/23] atenolol 25 mg tablet 12.5 mg PO DAILY 12/23/17 [History Confirmed 07/14/23] buprenorphine 20 mcg/hour weekly transdermal patch 20 mcg/hr topical QWEEK 12/23/17 [History Confirmed 07/14/23] calcium carbonate 600 mg-vitamin D3 20 mcg (800 unit) chewable tablet (Caltrate 600 plus D) 1 tab PO DAILY 12/23/17 [History Confirmed 07/14/23] chlorpheniramine maleate 4 mg tablet (Chlor-Trimeton) 2 mg PO DAILY 12/23/17 [History Confirmed 07/14/23] donepezil 5 mg tablet 5 mg PO DAILY 12/23/17 [History Confirmed 07/14/23] escitalopram oxalate 20 mg tablet 20 mg PO BID 12/23/17 [History Confirmed 07/14/23] gabapentin 600 mg tablet 800 mg PO DAILY 12/23/17 [History Confirmed 07/14/23] multivitamin (Daily-Justo tablet) 1 tab PO DAILY 12/23/17 [History Confirmed 07/14/23] pantoprazole 40 mg tablet,delayed release 40 mg PO DAILY 12/23/17 [History Confirmed 07/14/23] triamcinolone acetonide 0.1 % topical ointment 1 applic topical DAILY #30 grams 12/23/17 [Rx Confirmed 07/14/23] acetaminophen 650 mg tablet,extended release 650 mg PO Q4-6H PRN Pain 05/10/19 [History Confirmed 07/14/23] allopurinol 100 mg tablet 100 mg PO DAILY 05/10/19 [History Confirmed 07/14/23] cyanocobalamin (vitamin B-12) 2,500 mcg sublingual tablet (Vitamin B-12) 2,500 mcg sublingual DAILY 05/10/19 [History Confirmed 07/14/23] cyclobenzaprine 10 mg tablet 10 mg PO BID PRN Muscle Spasm 05/10/19 [History Confirmed 07/14/23] lactobacillus combination no.4 3 billion cell capsule (Probiotic) 3,000 mmu cells PO DAILY 05/10/19 [History Confirmed 07/14/23] meclizine 12.5 mg tablet 12.5 mg PO DAILY PRN Dizziness 05/10/19 [History Confirmed 07/14/23] metformin 500 mg tablet 500 mg PO DAILY 05/10/19 [History Confirmed 07/14/23] ondansetron 4 mg disintegrating tablet 4 mg PO Q4H PRN Nausea 05/10/19 [History Confirmed 07/14/23] polyethylene glycol 3350 17 gram oral powder packet (Miralax) 17 g PO DAILY PRN Constipation 05/10/19 [History Confirmed 07/14/23] pravastatin 10 mg tablet 10 mg PO DAILY 05/10/19 [History Confirmed 07/14/23] risperidone 0.25 mg tablet 0.25 mg PO BID 05/10/19 [History Confirmed 07/14/23] spironolactone 25 mg tablet 25 mg PO DAILY 05/10/19 [History Confirmed 07/14/23] valacyclovir 1 gram tablet 1,000 mg PO TID 02/11/22 [History Confirmed 07/14/23] Allergies cat dander Allergy (Verified 04/08/22 13:01) Sneezing codeine Allergy (Verified 04/08/22 13:01) Unknown Reaction glycerin Allergy (Verified 04/08/22 13:01) Unknown Reaction latex Allergy (Verified 04/08/22 13:01) Unknown Reaction lidocaine Allergy (Verified 04/08/22 13:01) Unknown Reaction meperidine [From Demerol] Allergy (Verified 04/08/22 13:01) Confusion mold Allergy (Verified 04/08/22 13:01) Sneezing NSAIDS (Non-Steroidal Anti-Inflamma Allergy (Verified 04/08/22 13:01) Rash Sulfa (Sulfonamide Antibiotics) Allergy (Verified 04/08/22 13:01) Rash Wound/Ulcer Abdomen: Type: Surgical Wound (Non-healing surgical wound) Thickness: Full Bed Appearance: Beefy Red and [place] Percent of Wound Bed Granulated/Red: 100 Percent of Devitalized: 0 Length (cm): 0.3 Width (cm): 0.3 Depth (cm): 0.3 CM Sq: 0.090 Tunneling Position: 00:00 Surrounding Tissue Appearance: Hyperpigmented Surrounding Tissue Temp: Warm Drainage Amount: Moderate Drainage Description: Serosanguineous and Yellow Drainage Odor: No Odor Results Height: 5 ft Weight: 73.21 kg Body Mass Index: 31.5 Assessment/Plan Assessment/Plan (1) Surgical wound, non healing: Qualifiers: Encounter type: sequela Qualified Code(s): T81.89XS - Other complications of procedures, not elsewhere classified, sequela Code(s): T81.89XA - Other complications of procedures, not elsewhere classified, initial encounter Status: Chronic (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: Assessment/Problem Details: patient states mesh is present in abdomen Qualifiers: Encounter type: initial encounter Qualified Code(s): T85.79XA - Infection and inflammatory reaction due to other internal prosthetic devices, implants and grafts, initial encounter Code(s): T85.79XA - Infection and inflammatory reaction due to other internal prosthetic devices, implants and grafts, initial encounter Status: Suspected (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 - Fistula of intestine Status: Chronic (4) Obesity: Code(s): E66.9 - Obesity, unspecified Status: Chronic (5) Limited mobility: Code(s): Z74.09 - Other reduced mobility Status: Chronic (6) Requires daily assistance for activities of daily living (ADL) and comfort needs: Code(s): Z74.1 - Need for assistance with personal care Status: Chronic (7) Dementia: Code(s): F03.90 - Unspecified dementia, unspecified severity, without behavioral disturbance, psychotic disturbance, mood disturbance, and anxiety Status: Chronic (8) Inflammation: Status: Chronic Time spent with patient Time Spent With Patient (min): 12 Dictated By: Wendy Scott APRN DD/ 1310 Signed By: <Electronically signed by DG Scott> 07/14/23 1312 [facility] Work Phone: 1(658) 351-808907-12-2023 Progress note Author Wendy Scott [facility] May 19, 2023 1:22pm Note Date/Time May 19, 2023 1:22 pm [facility] [address] [place] [address] Wound Center Provider Note Signed Patient: Vidhya Giordano MR#: [id number] : 1940 Acct:[id number] Age/Sex: 82 / F Copies to: MD Wendy Verdugo, LACTATION COORDINATOR~ HPI Date of Visit Date of Visit: Date of Service: 05/19/2023 Time of Service: 13:19 Narrative HPI: Vidhya is an 81 year old female presenting to [facility] wound care program for afollow up visit for an abdominal ulcer. 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 Her daughter states that she did have mesh removed from the area but that there is still mesh in place and I do wonder if this area will not heal because of the foreign body that is still in place- Vidhya has no intention of any further surgical procedures. The patient reports that this area has been opening on and off for the past 3-4 years. She is currently living with her daughter at her home and she has HH in place. I did order collagen silver and bordered foam for bioburden control and to assist in healing- the area looks epithelialized today 04/08/22. The patient reports that her appetite has been good- I did provide her with Humble samples, unflavored and flavored and did educate her and her daughter about obtaining these if she likes them. Healing of the area will be largely dependent on an adequate diet, compliance with dressing changes, and prevention of infection- it is highly likely that this will never remain healed given the internal mesh. She can be seen every 8 weeks for maintenance. 06/03/22 the area is stable, orders kept the same, can be seen again in 8 weeks for maintenance 07/29/22 stable, no real change, silver nitrate was applied today, orders kept asis, 8 week appt 09/23/22 stable, no change, orders kept the same, 8 week appt to follow for any acute infection or changes, they understand that this will not heal 11/18/22 stable, no change, no change to orders, 8 week appt 01/13/23 stable, no change, orders changed to include iodoflex, prefers to keep appts at 8 week intervals, understands that healing will not occur 03/24/23 stable, no change, orders the same as 01/13/ visit, patient and daughter still prefer to visit but do understand that this will not heal 05/19/23 stable again, [facility] we will order suppliesfrom a dme supplier, orders the same since the daughter prefers it that way, 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, 8 week appt Subjective Pain Abdomen: Pain Intensity: 0 Wound/Ulcer History Mode of Arrival/ Residence Hall Director: Family Assistive Device Used Today: Wheelchair Lives with:: Children Appetite Description: Within Normal Limits Who helps w/ dressing change?: Home Health Why Do You Need Help?: Can't Reach Ulcer, Limited mobility, Unsafe leave home byself and Taxing effort to leave home Smoking Status: Former smoker [facility], [facility] Medical History (Updated 06/03/22 @ 11:55 by Wendy Scott APRN) Alzheimer disease Bipolar disorder Chronic pain Chronic UTI Dementia Gout HBP (high blood pressure) Hyperlipemia Intestinal fistula Major depressive disorder Muscle weakness Neck fracture Skin ulcer of abdomen SOB (shortness of breath) Surgical History H/O: hysterectomy Hx of cholecystectomy Family History Mother Cancer Daughter Cancer Sister Cancer Social History Smoking Status: Former smoker Tobacco Type: cigarettes Substance Use Type: None Grafts History of Graft History of Graft?: No Exam Physical Exam Vital Signs: Temp Pulse Resp BP O2 Del Method 98.6 F 71 18 112/69 Room Air 05/19/23 13:12 05/19/23 13:12 05/19/23 13:12 05/19/23 13:12 05/19/23 13:12 Const General: cooperative, comfortable and no acute distress Nutritional Appearance: obese Orientation: alert, awake and oriented x3 Lower/Upper Extremity Exam Vascular Exam-Pulses Left Brachial: Pulse Assessment Method: NIBP Objective Meds/Allergies Home Medications albuterol sulfate 90 mcg/actuation aerosol inhaler (ProAir HFA) 2 puff inhalation Q6HR PRN Shortness Of Breath 12/23/17 [History Confirmed 03/24/23] atenolol 25 mg tablet 12.5 mg PO DAILY 12/23/17 [History Confirmed 03/24/23] buprenorphine 20 mcg/hour weekly transdermal patch 20 mcg/hr topical QWEEK 12/23/17 [History Confirmed 03/24/23] calcium carbonate 600 mg-vitamin D3 20 mcg (800 unit) chewable tablet (Caltrate 600 plus D) 1 tab PO DAILY 12/23/17 [History Confirmed 03/24/23] chlorpheniramine maleate 4 mg tablet (Chlor-Trimeton) 2 mg PO DAILY 12/23/17 [History Confirmed 03/24/23] donepezil 5 mg tablet 5 mg PO DAILY 12/23/17 [History Confirmed 03/24/23] escitalopram oxalate 20 mg tablet 20 mg PO BID 12/23/17 [History Confirmed 03/24/23] gabapentin 600 mg tablet 800 mg PO DAILY 12/23/17 [History Confirmed 03/24/23] multivitamin (Daily-Justo tablet) 1 tab PO DAILY 12/23/17 [History Confirmed 03/24/23] pantoprazole 40 mg tablet,delayed release 40 mg PO DAILY 12/23/17 [History Confirmed 03/24/23] triamcinolone acetonide 0.1 % topical ointment 1 applic topical DAILY #30 grams 12/23/17 [Rx Confirmed 03/24/23] acetaminophen 650 mg tablet,extended release 650 mg PO Q4-6H PRN Pain 05/10/19 [History Confirmed 03/24/23] allopurinol 100 mg tablet 100 mg PO DAILY 05/10/19 [History Confirmed 03/24/23] cyanocobalamin (vitamin B-12) 2,500 mcg sublingual tablet (Vitamin B-12) 2,500 mcg sublingual DAILY 05/10/19 [History Confirmed 03/24/23] cyclobenzaprine 10 mg tablet 10 mg PO BID PRN Muscle Spasm 05/10/19 [History Confirmed 03/24/23] lactobacillus combination no.4 3 billion cell capsule (Probiotic) 3,000 mmu cells PO DAILY 05/10/19 [History Confirmed 03/24/23] meclizine 12.5 mg tablet 12.5 mg PO DAILY PRN Dizziness 05/10/19 [History Confirmed 03/24/23] metformin 500 mg tablet 500 mg PO DAILY 05/10/19 [History Confirmed 03/24/23] ondansetron 4 mg disintegrating tablet 4 mg PO Q4H PRN Nausea 05/10/19 [History Confirmed 03/24/23] polyethylene glycol 3350 17 gram oral powder packet (Miralax) 17 g PO DAILY PRN Constipation 05/10/19 [History Confirmed 03/24/23] pravastatin 10 mg tablet 10 mg PO DAILY 05/10/19 [History Confirmed 03/24/23] risperidone 0.25 mg tablet 0.25 mg PO BID 05/10/19 [History Confirmed 03/24/23] spironolactone 25 mg tablet 25 mg PO DAILY 05/10/19 [History Confirmed 03/24/23] valacyclovir 1 gram tablet 1,000 mg PO TID 02/11/22 [History Confirmed 03/24/23] Allergies cat dander Allergy (Verified 04/08/22 13:01) Sneezing codeine Allergy (Verified 04/08/22 13:01) Unknown Reaction glycerin Allergy (Verified 04/08/22 13:01) Unknown Reaction latex Allergy (Verified 04/08/22 13:01) Unknown Reaction lidocaine Allergy (Verified 04/08/22 13:01) Unknown Reaction meperidine [From Demerol] Allergy (Verified 04/08/22 13:01) Confusion mold Allergy (Verified 04/08/22 13:01) Sneezing NSAIDS (Non-Steroidal Anti-Inflamma Allergy (Verified 04/08/22 13:01) Rash Sulfa (Sulfonamide Antibiotics) Allergy (Verified 04/08/22 13:01) Rash Wound/Ulcer Abdomen: Type: Surgical Wound (Non-healing surgical wound) Thickness: Full Bed Appearance: Beefy Red, [place] and Hypergranulation Percent of Wound Bed Granulated/Red: 100 Percent of Devitalized: 0 Length (cm): 0.2 Width (cm): 0.2 Depth (cm): 0.2 CM Sq: 0.040 Surrounding Tissue Appearance: Hyperpigmented Surrounding Tissue Temp: Warm Drainage Amount: Small Drainage Description: Serosanguineous and Yellow Drainage Odor: No Odor Results Height: 5 ft Weight: 73.21 kg Body Mass Index: 31.5 Assessment/Plan Assessment/Plan (1) Surgical wound, non healing: Qualifiers: Encounter type: sequela Qualified Code(s): T81.89XS - Other complications of procedures, not elsewhere classified, sequela Code(s): T81.89XA - Other complications of procedures, not elsewhere classified, initial encounter Status: Chronic (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: Assessment/Problem Details: patient states mesh is present in abdomen Qualifiers: Encounter type: initial encounter Qualified Code(s): T85.79XA - Infection and inflammatory reaction due to other internal prosthetic devices, implants and grafts, initial encounter Code(s): T85.79XA - Infection and inflammatory reaction due to other internal prosthetic devices, implants and grafts, initial encounter Status: Suspected (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 - Fistula of intestine Status: Chronic (4) Obesity: Code(s): E66.9 - Obesity, unspecified Status: Chronic (5) Limited mobility: Code(s): Z74.09 - Other reduced mobility Status: Chronic (6) Requires daily assistance for activities of daily living (ADL) and comfort needs: Code(s): Z74.1 - Need for assistance with personal care Status: Chronic (7) Dementia: Code(s): F03.90 - Unspecified dementia, unspecified severity, without behavioral disturbance, psychotic disturbance, mood disturbance, and anxiety Status: Chronic Time spent with patient Time Spent With Patient (min): 12 Dictated By: Wendy Scott APRN DD/ 1319 Signed By: <Electronically signed by DG Scott> 05/19/23 [address] [facility] Work Phone: [phone]) 124-756205-17-2023 Progress note Author Wendy Scott [facility] March 24, 2023 1:44pm Note Date/Time March 24, 2023 1:44p m [facility] [address] [place] [address] Wound Center Provider Note Signed Patient: Vidhya Giordano MR#: [id number] : 1940 Acct:[id number] Age/Sex: 82 / F Copies to: Kael Adkins MD Wendy Tyler, LACTATION COORDINATOR~ HPI Date of Visit Date of Visit: Date of Service: 03/24/2023 Time of Service: 13:42 Narrative HPI: Vidhya is an 81 year old female presenting to [facility] wound care program for afollow up visit for an abdominal ulcer. 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 Her daughter states that she did have mesh removed from the area but that there is still mesh in place and I do wonder if this area will not heal because of the foreign body that is still in place- Vidhya has no intention of any further surgical procedures. The patient reports that this area has been opening on and off for the past 3-4 years. She is currently living with her daughter at her home and she has HH in place. I did order collagen silver and bordered foam for bioburden control and to assist in healing- the area looks epithelialized today 04/08/22. The patient reports that her appetite has been good- I did provide her with Humble samples, unflavored and flavored and did educate her and her daughter about obtaining these if she likes them. Healing of the area will be largely dependent on an adequate diet, compliance with dressing changes, and prevention of infection- it is highly likely that this will never remain healed given the internal mesh. She can be seen every 8 weeks for maintenance. 06/03/22 the area is stable, orders kept the same, can be seen again in 8 weeks for maintenance 07/29/22 stable, no real change, silver nitrate was applied today, orders kept asis, 8 week appt 09/23/22 stable, no change, orders kept the same, 8 week appt to follow for any acute infection or changes, they understand that this will not heal 11/18/22 stable, no change, no change to orders, 8 week appt 01/13/23 stable, no change, orders changed to include iodoflex, prefers to keep appts at 8 week intervals, understands that healing will not occur 03/24/23 stable, no change, orders the same as 3/8/ visit, patient and daughter still prefer to visit but do understand that this will not heal Subjective Pain Abdomen: Pain Intensity: 0 Pain Management Techniques Other/Comment: 02/11/2022 States sharp pain from shingles Wound/Ulcer History Mode of Arrival/ Residence Hall Director: Family Assistive Device Used Today: Wheelchair Lives with:: Children Appetite Description: Within Normal Limits Who helps w/ dressing change?: Home Health Why Do You Need Help?: Can't Reach Ulcer, Limited mobility, Unsafe leave home byself and Taxing effort to leave home Smoking Status: Former smoker [facility], [facility] Medical History (Updated 06/03/22 @ 11:55 by Wendy Scott APRN) Alzheimer disease Bipolar disorder Chronic pain Chronic UTI Dementia Gout HBP (high blood pressure) Hyperlipemia Intestinal fistula Major depressive disorder Muscle weakness Neck fracture Skin ulcer of abdomen SOB (shortness of breath) Surgical History H/O: hysterectomy Hx of cholecystectomy Family History Mother Cancer Daughter Cancer Sister Cancer Social History Smoking Status: Former smoker Tobacco Type: cigarettes Substance Use Type: None Grafts History of Graft History of Graft?: No Exam Physical Exam Vital Signs: Temp Pulse Resp BP O2 Del Method 97.3 F L 77 20 125/75 Room Air 03/24/23 13:35 03/24/23 13:35 03/24/23 13:35 03/24/23 13:35 03/24/23 13:35 Const General: cooperative, comfortable and no acute distress Nutritional Appearance: obese Orientation: alert, awake and oriented x3 Lower/Upper Extremity Exam Vascular Exam-Pulses Left Brachial: Pulse Assessment Method: NIBP Objective Meds/Allergies Home Medications albuterol sulfate 90 mcg/actuation aerosol inhaler (ProAir HFA) 2 puff inhalation Q6HR PRN Shortness Of Breath 12/23/17 [History Confirmed 03/24/23] atenolol 25 mg tablet 12.5 mg PO DAILY 12/23/17 [History Confirmed 03/24/23] buprenorphine 20 mcg/hour weekly transdermal patch 20 mcg/hr topical QWEEK 12/23/17 [History Confirmed 03/24/23] calcium carbonate 600 mg-vitamin D3 20 mcg (800 unit) chewable tablet (Caltrate 600 plus D) 1 tab PO DAILY 12/23/17 [History Confirmed 03/24/23] chlorpheniramine maleate 4 mg tablet (Chlor-Trimeton) 2 mg PO DAILY 12/23/17 [History Confirmed 03/24/23] donepezil 5 mg tablet 5 mg PO DAILY 12/23/17 [History Confirmed 03/24/23] escitalopram oxalate 20 mg tablet 20 mg PO BID 12/23/17 [History Confirmed 03/24/23] gabapentin 600 mg tablet 800 mg PO DAILY 12/23/17 [History Confirmed 03/24/23] multivitamin (Daily-Justo tablet) 1 tab PO DAILY 12/23/17 [History Confirmed 03/24/23] pantoprazole 40 mg tablet,delayed release 40 mg PO DAILY 12/23/17 [History Confirmed 03/24/23] triamcinolone acetonide 0.1 % topical ointment 1 applic topical DAILY #30 grams 12/23/17 [Rx Confirmed 03/24/23] acetaminophen 650 mg tablet,extended release 650 mg PO Q4-6H PRN Pain 05/10/19 [History Confirmed 03/24/23] allopurinol 100 mg tablet 100 mg PO DAILY 05/10/19 [History Confirmed 03/24/23] cyanocobalamin (vitamin B-12) 2,500 mcg sublingual tablet (Vitamin B-12) 2,500 mcg sublingual DAILY 05/10/19 [History Confirmed 03/24/23] cyclobenzaprine 10 mg tablet 10 mg PO BID PRN Muscle Spasm 05/10/19 [History Confirmed 03/24/23] lactobacillus combination no.4 3 billion cell capsule (Probiotic) 3,000 mmu cells PO DAILY 05/10/19 [History Confirmed 03/24/23] meclizine 12.5 mg tablet 12.5 mg PO DAILY PRN Dizziness 05/10/19 [History Confirmed 03/24/23] metformin 500 mg tablet 500 mg PO DAILY 05/10/19 [History Confirmed 03/24/23] ondansetron 4 mg disintegrating tablet 4 mg PO Q4H PRN Nausea 05/10/19 [History Confirmed 03/24/23] polyethylene glycol 3350 17 gram oral powder packet (Miralax) 17 g PO DAILY PRN Constipation 05/10/19 [History Confirmed 03/24/23] pravastatin 10 mg tablet 10 mg PO DAILY 05/10/19 [History Confirmed 03/24/23] risperidone 0.25 mg tablet 0.25 mg PO BID 05/10/19 [History Confirmed 03/24/23] spironolactone 25 mg tablet 25 mg PO DAILY 05/10/19 [History Confirmed 03/24/23] valacyclovir 1 gram tablet 1,000 mg PO TID 02/11/22 [History Confirmed 03/24/23] Allergies cat dander Allergy (Verified 04/08/22 13:01) Sneezing codeine Allergy (Verified 04/08/22 13:01) Unknown Reaction glycerin Allergy (Verified 04/08/22 13:01) Unknown Reaction latex Allergy (Verified 04/08/22 13:01) Unknown Reaction lidocaine Allergy (Verified 04/08/22 13:01) Unknown Reaction meperidine [From Demerol] Allergy (Verified 04/08/22 13:01) Confusion mold Allergy (Verified 04/08/22 13:01) Sneezing NSAIDS (Non-Steroidal Anti-Inflamma Allergy (Verified 04/08/22 13:01) Rash Sulfa (Sulfonamide Antibiotics) Allergy (Verified 04/08/22 13:01) Rash Wound/Ulcer Abdomen: Type: Surgical Wound (Non-healing surgical wound) Thickness: Full Bed Appearance: [place] and Rolled Edges Percent of Wound Bed Granulated/Red: 100 Percent of Devitalized: 0 Length (cm): 0.2 Width (cm): 0.2 Depth (cm): 0.2 CM Sq: 0.040 Surrounding Tissue Appearance: Hyperpigmented Surrounding Tissue Temp: Warm Drainage Amount: Small Drainage Description: Serosanguineous and Yellow Drainage Odor: No Odor Results Height: 5 ft Weight: 73.21 kg Body Mass Index: 31.5 Assessment/Plan Assessment/Plan (1) Surgical wound, non healing: Qualifiers: Encounter type: sequela Qualified Code(s): T81.89XS - Other complications of procedures, not elsewhere classified, sequela Code(s): T81.89XA - Other complications of procedures, not elsewhere classified, initial encounter Status: Chronic (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: Assessment/Problem Details: patient states mesh is present in abdomen Qualifiers: Encounter type: initial encounter Qualified Code(s): T85.79XA - Infection and inflammatory reaction due to other internal prosthetic devices, implants and grafts, initial encounter Code(s): T85.79XA - Infection and inflammatory reaction due to other internal prosthetic devices, implants and grafts, initial encounter Status: Suspected (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 - Fistula of intestine Status: Chronic (4) Obesity: Code(s): E66.9 - Obesity, unspecified Status: Chronic (5) Limited mobility: Code(s): Z74.09 - Other reduced mobility Status: Chronic (6) Requires daily assistance for activities of daily living (ADL) and comfort needs: Code(s): Z74.1 - Need for assistance with personal care Status: Chronic (7) Dementia: Code(s): F03.90 - Unspecified dementia, unspecified severity, without behavioral disturbance, psychotic disturbance, mood disturbance, and anxiety Status: Chronic Time spent with patient Time Spent With Patient (min): 13 Dictated By: Wendy Scott APRN DD/ 1342 Signed By: <Electronically signed by DG Scott> 03/24/23 [address] [facility] Work Phone: 1(590) 707-921703-08-2023 Progress note Author Wendy Scott [facility] January 13, 2023 1:07pm Note Date/Time January 13, 2023 1:08 pm [facility] [address] [place] [address] Wound Center Provider Note Signed Patient: Vidhya Giordano MR#: [id number] : 1940 Acct:[id number] Age/Sex: 82 / F Copies to: MD Wendy Verdugo APRN~ HPI Date of Visit Date of Visit: Date of Service: 01/13/2023 Time of Service: 13:06 Narrative HPI: Vidhya is an 81 year old female presenting to [facility] wound care program for afollow up visit for an abdominal ulcer. 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 Her daughter states that she did have mesh removed from the area but that there is still mesh in place and I do wonder if this area will not heal because of the foreign body that is still in place- Vidhya has no intention of any further surgical procedures. The patient reports that this area has been opening on and off for the past 3-4 years. She is currently living with her daughter at her home and she has HH in place. I did order collagen silver and bordered foam for bioburden control and to assist in healing- the area looks epithelialized today 04/08/22. The patient reports that her appetite has been good- I did provide her with Humble samples, unflavored and flavored and did educate her and her daughter about obtaining these if she likes them. Healing of the area will be largely dependent on an adequate diet, compliance with dressing changes, and prevention of infection- it is highly likely that this will never remain healed given the internal mesh. She can be seen every 8 weeks for maintenance. 06/03/22 the area is stable, orders kept the same, can be seen again in 8 weeks for maintenance 07/29/22 stable, no real change, silver nitrate was applied today, orders kept asis, 8 week appt 09/23/22 stable, no change, orders kept the same, 8 week appt to follow for any acute infection or changes, they understand that this will not heal 11/18/22 stable, no change, no change to orders, 8 week appt 01/13/23 stable, no change, orders changed to include iodoflex, prefers to keep appts at 8 week intervals, understands that healing will not occur Subjective Pain Abdomen: Pain Description: Intermittent Pain Intensity: 7 Wound/Ulcer History Mode of Arrival/ Residence Hall Director: Family Assistive Device Used Today: Wheelchair Lives with:: Children Appetite Description: Within Normal Limits Who helps w/ dressing change?: Home Health Why Do You Need Help?: Can't Reach Ulcer, Limited mobility, Unsafe leave home byself and Taxing effort to leave home Smoking Status: Former smoker [facility], [facility] Medical History (Updated 06/03/22 @ 11:55 by Wendy Scott APRN) Alzheimer disease Bipolar disorder Chronic pain Chronic UTI Dementia Gout HBP (high blood pressure) Hyperlipemia Intestinal fistula Major depressive disorder Muscle weakness Neck fracture Skin ulcer of abdomen SOB (shortness of breath) Surgical History H/O: hysterectomy Hx of cholecystectomy Family History Mother Cancer Daughter Cancer Sister Cancer Social History Smoking Status: Former smoker Tobacco Type: cigarettes Substance Use Type: None Grafts History of Graft History of Graft?: No Exam Physical Exam Vital Signs: Temp Pulse Resp BP O2 Del Method 97.9 F 60 18 130/64 Room Air 01/13/23 13:00 01/13/23 13:00 01/13/23 13:00 01/13/23 13:00 01/13/23 13:00 Const General: cooperative, comfortable and no acute distress Nutritional Appearance: obese Orientation: alert, awake and oriented x3 Lower/Upper Extremity Exam Vascular Exam-Pulses Left Radial: Pulse Assessment Method: Palpation Objective Meds/Allergies Home Medications albuterol sulfate 90 mcg/actuation aerosol inhaler (ProAir HFA) 2 puff inhalation Q6HR PRN Shortness Of Breath 12/23/17 [History Confirmed 01/13/23] atenolol 25 mg tablet 12.5 mg PO DAILY 12/23/17 [History Confirmed 01/13/23] buprenorphine 20 mcg/hour weekly transdermal patch 20 mcg/hr topical QWEEK 12/23/17 [History Confirmed 01/13/23] calcium carbonate 600 mg-vitamin D3 20 mcg (800 unit) chewable tablet (Caltrate 600 plus D) 1 tab PO DAILY 12/23/17 [History Confirmed 01/13/23] chlorpheniramine maleate 4 mg tablet (Chlor-Trimeton) 2 mg PO DAILY 12/23/17 [History Confirmed 01/13/23] donepezil 5 mg tablet 5 mg PO DAILY 12/23/17 [History Confirmed 01/13/23] escitalopram oxalate 20 mg tablet 20 mg PO BID 12/23/17 [History Confirmed 01/13/23] gabapentin 600 mg tablet 800 mg PO DAILY 12/23/17 [History Confirmed 01/13/23] multivitamin (Daily-Justo tablet) 1 tab PO DAILY 12/23/17 [History Confirmed 01/13/23] pantoprazole 40 mg tablet,delayed release 40 mg PO DAILY 12/23/17 [History Confirmed 01/13/23] triamcinolone acetonide 0.1 % topical ointment 1 applic topical DAILY #30 grams 12/23/17 [Rx Confirmed 01/13/23] acetaminophen 650 mg tablet,extended release 650 mg PO Q4-6H PRN Pain 05/10/19 [History Confirmed 01/13/23] allopurinol 100 mg tablet 100 mg PO DAILY 05/10/19 [History Confirmed 01/13/23] cyanocobalamin (vitamin B-12) 2,500 mcg sublingual tablet (Vitamin B-12) 2,500 mcg sublingual DAILY 05/10/19 [History Confirmed 01/13/23] cyclobenzaprine 10 mg tablet 10 mg PO BID PRN Muscle Spasm 05/10/19 [History Confirmed 01/13/23] lactobacillus combination no.4 3 billion cell capsule (Probiotic) 3,000 mmu cells PO DAILY 05/10/19 [History Confirmed 01/13/23] meclizine 12.5 mg tablet 12.5 mg PO DAILY PRN Dizziness 05/10/19 [History Confirmed 01/13/23] metformin 500 mg tablet 500 mg PO DAILY 05/10/19 [History Confirmed 01/13/23] ondansetron 4 mg disintegrating tablet 4 mg PO Q4H PRN Nausea 05/10/19 [History Confirmed 01/13/23] polyethylene glycol 3350 17 gram oral powder packet (Miralax) 17 g PO DAILY PRN Constipation 05/10/19 [History Confirmed 01/13/23] pravastatin 10 mg tablet 10 mg PO DAILY 05/10/19 [History Confirmed 01/13/23] risperidone 0.25 mg tablet 0.25 mg PO BID 05/10/19 [History Confirmed 01/13/23] spironolactone 25 mg tablet 25 mg PO DAILY 05/10/19 [History Confirmed 01/13/23] valacyclovir 1 gram tablet 1,000 mg PO TID 02/11/22 [History Confirmed 01/13/23] Allergies cat dander Allergy (Verified 04/08/22 13:01) Sneezing codeine Allergy (Verified 04/08/22 13:01) Unknown Reaction glycerin Allergy (Verified 04/08/22 13:01) Unknown Reaction latex Allergy (Verified 04/08/22 13:01) Unknown Reaction lidocaine Allergy (Verified 04/08/22 13:01) Unknown Reaction meperidine [From Demerol] Allergy (Verified 04/08/22 13:01) Confusion mold Allergy (Verified 04/08/22 13:01) Sneezing NSAIDS (Non-Steroidal Anti-Inflamma Allergy (Verified 04/08/22 13:01) Rash Sulfa (Sulfonamide Antibiotics) Allergy (Verified 04/08/22 13:01) Rash Wound/Ulcer Abdomen: Type: Surgical Wound (Non-healing surgical wound) Thickness: Full Bed Appearance: [place] and Rolled Edges Percent of Wound Bed Granulated/Red: 100 Percent of Devitalized: 0 Length (cm): 0.2 Width (cm): 0.3 Depth (cm): 0.4 CM Sq: 0.060 Surrounding Tissue Appearance: Hyperpigmented Surrounding Tissue Temp: Warm Drainage Amount: Small Drainage Description: Serosanguineous and Yellow Drainage Odor: No Odor Results Height: 5 ft Weight: 73.21 kg Body Mass Index: 31.5 Assessment/Plan Assessment/Plan (1) Surgical wound, non healing: Qualifiers: Encounter type: sequela Qualified Code(s): T81.89XS - Other complications of procedures, not elsewhere classified, sequela Code(s): T81.89XA - Other complications of procedures, not elsewhere classified, initial encounter Status: Chronic (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: Qualifiers: Encounter type: initial encounter Qualified Code(s): T85.79XA - Infection and inflammatory reaction due to other internal prosthetic devices, implants and grafts, initial encounter Code(s): T85.79XA - Infection and inflammatory reaction due to other internal prosthetic devices, implants and grafts, initial encounter Status: Suspected (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 - Fistula of intestine Status: Chronic (4) Obesity: Code(s): E66.9 - Obesity, unspecified Status: Chronic (5) Limited mobility: Code(s): Z74.09 - Other reduced mobility Status: Chronic (6) Requires daily assistance for activities of daily living (ADL) and comfort needs: Code(s): Z74.1 - Need for assistance with personal care Status: Chronic (7) Dementia: Code(s): F03.90 - Unspecified dementia, unspecified severity, without behavioral disturbance, psychotic disturbance, mood disturbance, and anxiety Status: Chronic Time spent with patient Time Spent With Patient (min): 10 Dictated By: Wendy Scott APRN DD/ 1306 Signed By: <Electronically signed by DG Scott> 01/13/23 [address] [facility] Work Phone: 1(400) 270-522901-11-2023 Progress note Author Wendy Scott [facility] November 18, 2022 11:26am Note Date/Time November 18, 2022 1 1:27am [facility] [address] [place] [address] Wound Center Provider Note Signed Patient: Vidhya Giordano MR#: [id number] : 1940 Acct:[id number] Age/Sex: 82 / F Copies to: MD Wendy Verdugo APRN~ HPI Date of Visit Date of Visit: Date of Service: 11/18/2022 Time of Service: 11:25 Narrative HPI: Vidhya is an 81 year old female presenting to [facility] wound care program for afollow up visit for an abdominal ulcer. 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 Her daughter states that she did have mesh removed from the area but that there is still mesh in place and I do wonder if this area will not heal because of the foreign body that is still in place- Vidhya has no intention of any further surgical procedures. The patient reports that this area has been opening on and off for the past 3-4 years. She is currently living with her daughter at her home and she has HH in place. I did order collagen silver and bordered foam for bioburden control and to assist in healing- the area looks epithelialized today 04/08/22. The patient reports that her appetite has been good- I did provide her with Humble samples, unflavored and flavored and did educate her and her daughter about obtaining these if she likes them. Healing of the area will be largely dependent on an adequate diet, compliance with dressing changes, and prevention of infection- it is highly likely that this will never remain healed given the internal mesh. She can be seen every 8 weeks for maintenance. 06/03/22 the area is stable, orders kept the same, can be seen again in 8 weeks for maintenance 07/29/22 stable, no real change, silver nitrate was applied today, orders kept asis, 8 week appt 09/23/22 stable, no change, orders kept the same, 8 week appt to follow for any acute infection or changes, they understand that this will not heal 11/18/22 stable, no change, no change to orders, 8 week appt Subjective Pain Abdomen: Pain Description: Soreness Pain Intensity: 0 Pain Management Techniques Other/Comment: 02/11/2022 States sharp pain from shingles Wound/Ulcer History Mode of Arrival/ Residence Hall Director: Family Assistive Device Used Today: Wheelchair Lives with:: Children Appetite Description: Within Normal Limits Who helps w/ dressing change?: Home Health Why Do You Need Help?: Can't Reach Ulcer, Limited mobility, Unsafe leave home byself and Taxing effort to leave home Smoking Status: Former smoker [facility], [facility] Medical History (Updated 06/03/22 @ 11:55 by Wendy Scott APRN) Alzheimer disease Bipolar disorder Chronic pain Chronic UTI Dementia Gout HBP (high blood pressure) Hyperlipemia Intestinal fistula Major depressive disorder Muscle weakness Neck fracture Skin ulcer of abdomen SOB (shortness of breath) Surgical History H/O: hysterectomy Hx of cholecystectomy Family History Mother Cancer Daughter Cancer Sister Cancer Social History Smoking Status: Former smoker Tobacco Type: cigarettes Substance Use Type: None Grafts History of Graft History of Graft?: No Exam Physical Exam Vital Signs: Temp Pulse Resp BP O2 Del Method 97 F L 60 18 130/58 L Room Air 11/18/22 11:16 11/18/22 11:16 11/18/22 11:16 11/18/22 11:16 11/18/22 11:16 Const General: cooperative, comfortable and no acute distress Nutritional Appearance: obese Orientation: alert, awake and oriented x3 Lower/Upper Extremity Exam Vascular Exam-Pulses Left Radial: Pulse Assessment Method: Palpation Objective Meds/Allergies Home Medications albuterol sulfate 90 mcg/actuation aerosol inhaler (ProAir HFA) 2 puff inhalation Q6HR PRN Shortness Of Breath 12/23/17 [History Confirmed 11/18/22] atenolol 25 mg tablet 12.5 mg PO DAILY 12/23/17 [History Confirmed 11/18/22] buprenorphine 20 mcg/hour weekly transdermal patch 20 mcg/hr topical QWEEK 12/23/17 [History Confirmed 11/18/22] calcium carbonate 600 mg-vitamin D3 20 mcg (800 unit) chewable tablet (Caltrate 600 plus D) 1 tab PO DAILY 12/23/17 [History Confirmed 11/18/22] chlorpheniramine maleate 4 mg tablet (Chlor-Trimeton) 2 mg PO DAILY 12/23/17 [History Confirmed 11/18/22] donepezil 5 mg tablet 5 mg PO DAILY 12/23/17 [History Confirmed 11/18/22] escitalopram oxalate 20 mg tablet 20 mg PO BID 12/23/17 [History Confirmed 11/18/22] gabapentin 600 mg tablet 800 mg PO DAILY 12/23/17 [History Confirmed 11/18/22] multivitamin (Daily-Justo tablet) 1 tab PO DAILY 12/23/17 [History Confirmed 11/18/22] pantoprazole 40 mg tablet,delayed release 40 mg PO DAILY 12/23/17 [History Confirmed 11/18/22] triamcinolone acetonide 0.1 % topical ointment 1 applic topical DAILY #30 grams 12/23/17 [Rx Confirmed 11/18/22] acetaminophen 650 mg tablet,extended release 650 mg PO Q4-6H PRN Pain 05/10/19 [History Confirmed 11/18/22] allopurinol 100 mg tablet 100 mg PO DAILY 05/10/19 [History Confirmed 11/18/22] cyanocobalamin (vitamin B-12) 2,500 mcg sublingual tablet (Vitamin B-12) 2,500 mcg sublingual DAILY 05/10/19 [History Confirmed 11/18/22] cyclobenzaprine 10 mg tablet 10 mg PO BID PRN Muscle Spasm 05/10/19 [History Confirmed 11/18/22] lactobacillus combination no.4 3 billion cell capsule (Probiotic) 3,000 mmu cells PO DAILY 05/10/19 [History Confirmed 11/18/22] meclizine 12.5 mg tablet 12.5 mg PO DAILY PRN Dizziness 05/10/19 [History Confirmed 11/18/22] metformin 500 mg tablet 500 mg PO DAILY 05/10/19 [History Confirmed 11/18/22] ondansetron 4 mg disintegrating tablet 4 mg PO Q4H PRN Nausea 05/10/19 [History Confirmed 11/18/22] polyethylene glycol 3350 17 gram oral powder packet (Miralax) 17 g PO DAILY PRN Constipation 05/10/19 [History Confirmed 11/18/22] pravastatin 10 mg tablet 10 mg PO DAILY 05/10/19 [History Confirmed 11/18/22] risperidone 0.25 mg tablet 0.25 mg PO BID 05/10/19 [History Confirmed 11/18/22] spironolactone 25 mg tablet 25 mg PO DAILY 05/10/19 [History Confirmed 11/18/22] valacyclovir 1 gram tablet 1,000 mg PO TID 02/11/22 [History Confirmed 11/18/22] Allergies cat dander Allergy (Verified 04/08/22 13:01) Sneezing codeine Allergy (Verified 04/08/22 13:01) Unknown Reaction glycerin Allergy (Verified 04/08/22 13:01) Unknown Reaction latex Allergy (Verified 04/08/22 13:01) Unknown Reaction lidocaine Allergy (Verified 04/08/22 13:01) Unknown Reaction meperidine [From Demerol] Allergy (Verified 04/08/22 13:01) Confusion mold Allergy (Verified 04/08/22 13:01) Sneezing NSAIDS (Non-Steroidal Anti-Inflamma Allergy (Verified 04/08/22 13:01) Rash Sulfa (Sulfonamide Antibiotics) Allergy (Verified 04/08/22 13:01) Rash Wound/Ulcer Abdomen: Type: Surgical Wound (Non-healing surgical wound) Thickness: Full Bed Appearance: [place] and Rolled Edges Percent of Wound Bed Granulated/Red: 100 Percent of Devitalized: 0 Length (cm): 0.2 Width (cm): 0.3 Depth (cm): 0.4 CM Sq: 0.060 Tunneling Position: 00:00 Tunneling Depth: 0 Surrounding Tissue Appearance: Hyperpigmented Surrounding Tissue Temp: Warm Drainage Amount: Small Drainage Description: Serosanguineous and Yellow Drainage Odor: No Odor Results Height: 5 ft Weight: 73.21 kg Body Mass Index: 31.5 Assessment/Plan Assessment/Plan (1) Surgical wound, non healing: Qualifiers: Encounter type: sequela Qualified Code(s): T81.89XS - Other complications of procedures, not elsewhere classified, sequela Code(s): T81.89XA - Other complications of procedures, not elsewhere classified, initial encounter Status: Chronic (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: Qualifiers: Encounter type: initial encounter Qualified Code(s): T85.79XA - Infection and inflammatory reaction due to other internal prosthetic devices, implants and grafts, initial encounter Code(s): T85.79XA - Infection and inflammatory reaction due to other internal prosthetic devices, implants and grafts, initial encounter Status: Suspected (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 - Fistula of intestine Status: Chronic (4) Obesity: Code(s): E66.9 - Obesity, unspecified Status: Chronic (5) Limited mobility: Code(s): Z74.09 - Other reduced mobility Status: Chronic (6) Requires daily assistance for activities of daily living (ADL) and comfort needs: Code(s): Z74.1 - Need for assistance with personal care Status: Chronic (7) Dementia: Code(s): F03.90 - Unspecified dementia, unspecified severity, without behavioral disturbance, psychotic disturbance, mood disturbance, and anxiety Status: Chronic Time spent with patient Time Spent With Patient (min): 10 Dictated By: Wendy Scott APRN DD/ 24 Signed By: <Electronically signed by DG Scott> 11/18/221125 [facility] Work Phone: 1(956) 520-244411-16-2022 Progress note Author Wendy Scott [facility] September 23, 2022 11:25am Note Date/Time September 23, 2022 11:25am [facility] [address] [place] [address] Wound Center Provider Note Signed Patient: Vidhya Giordano MR#: [id number] : 1940 Acct:[id number] Age/Sex: 82 / F Copies to: MD Wendy Verdugo APRN~ HPI Date of Visit Date of Visit: Date of Service: 09/23/2022 Time of Service: 11:22 Narrative HPI: Vidhya is an 81 year old female presenting to [facility] wound care program for afollow up visit for an abdominal ulcer. 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 Her daughter states that she did have mesh removed from the area but that there is still mesh in place and I do wonder if this area will not heal because of the foreign body that is still in place- Vidhya has no intention of any further surgical procedures. The patient reports that this area has been opening on and off for the past 3-4 years. She is currently living with her daughter at her home and she has HH in place. I did order collagen silver and bordered foam for bioburden control and to assist in healing- the area looks epithelialized today 04/08/22. The patient reports that her appetite has been good- I did provide her with Humble samples, unflavored and flavored and did educate her and her daughter about obtaining these if she likes them. Healing of the area will be largely dependent on an adequate diet, compliance with dressing changes, and prevention of infection- it is highly likely that this will never remain healed given the internal mesh. She can be seen every 8 weeks for maintenance. 06/03/22 the area is stable, orders kept the same, can be seen again in 8 weeks for maintenance 07/29/22 stable, no real change, silver nitrate was applied today, orders kept asis, 8 week appt 09/23/22 stable, no change, orders kept the same, 8 week appt to follow for any acute infection or changes, they understand that this will not heal Subjective Pain Abdomen: Pain Description: Soreness Pain Intensity: 0 Wound/Ulcer History Mode of Arrival/ Residence Hall Director: Family Assistive Device Used Today: Wheelchair Lives with:: Children Appetite Description: Within Normal Limits Who helps w/ dressing change?: Home Health Why Do You Need Help?: Can't Reach Ulcer, Limited mobility, Unsafe leave home byself and Taxing effort to leave home Smoking Status: Former smoker [facility], [facility] Medical History (Updated 06/03/22 @ 11:55 by Wendy Scott APRN) Alzheimer disease Bipolar disorder Chronic pain Chronic UTI Dementia Gout HBP (high blood pressure) Hyperlipemia Intestinal fistula Major depressive disorder Muscle weakness Neck fracture Skin ulcer of abdomen SOB (shortness of breath) Surgical History H/O: hysterectomy Hx of cholecystectomy Family History Mother Cancer Daughter Cancer Sister Cancer Social History Smoking Status: Former smoker Tobacco Type: cigarettes Substance Use Type: None Grafts History of Graft History of Graft?: No Exam Physical Exam Vital Signs: Temp Pulse Resp BP O2 Del Method 97.2 F L 68 18 118/62 Room Air 09/23/22 11:15 09/23/22 11:15 09/23/22 11:15 09/23/22 11:15 09/23/22 11:15 Const General: cooperative, comfortable and no acute distress Nutritional Appearance: obese Orientation: alert, awake and oriented x3 Lower/Upper Extremity Exam Vascular Exam-Pulses Left Radial: Pulse Assessment Method: Palpation Objective Meds/Allergies Home Medications albuterol sulfate 90 mcg/actuation aerosol inhaler (ProAir HFA) 2 puff inhalation Q6HR PRN Shortness Of Breath 12/23/17 [History Confirmed 06/03/22] atenolol 25 mg tablet 12.5 mg PO DAILY 12/23/17 [History Confirmed 06/03/22] buprenorphine 20 mcg/hour weekly transdermal patch 20 mcg/hr topical QWEEK 12/23/17 [History Confirmed 06/03/22] calcium carbonate 600 mg-vitamin D3 20 mcg (800 unit) chewable tablet (Caltrate 600 plus D) 1 tab PO DAILY 12/23/17 [History Confirmed 06/03/22] chlorpheniramine maleate 4 mg tablet (Chlor-Trimeton) 2 mg PO DAILY 12/23/17 [History Confirmed 06/03/22] donepezil 5 mg tablet 5 mg PO DAILY 12/23/17 [History Confirmed 06/03/22] escitalopram oxalate 20 mg tablet 20 mg PO BID 12/23/17 [History Confirmed 06/03/22] gabapentin 600 mg tablet 800 mg PO DAILY 12/23/17 [History Confirmed 06/03/22] multivitamin (Daily-Justo tablet) 1 tab PO DAILY 12/23/17 [History Confirmed 06/03/22] pantoprazole 40 mg tablet,delayed release 40 mg PO DAILY 12/23/17 [History Confirmed 06/03/22] triamcinolone acetonide 0.1 % topical ointment 1 applic topical DAILY #30 grams 12/23/17 [Rx Confirmed 06/03/22] acetaminophen 650 mg tablet,extended release 650 mg PO Q4-6H PRN Pain 05/10/19 [History Confirmed 06/03/22] allopurinol 100 mg tablet 100 mg PO DAILY 05/10/19 [History Confirmed 06/03/22] cyanocobalamin (vitamin B-12) 2,500 mcg sublingual tablet (Vitamin B-12) 2,500 mcg sublingual DAILY 05/10/19 [History Confirmed 06/03/22] cyclobenzaprine 10 mg tablet 10 mg PO BID PRN Muscle Spasm 05/10/19 [History Confirmed 06/03/22] lactobacillus combination no.4 3 billion cell capsule (Probiotic) 3,000 mmu cells PO DAILY 05/10/19 [History Confirmed 06/03/22] meclizine 12.5 mg tablet 12.5 mg PO DAILY PRN Dizziness 05/10/19 [History Confirmed 06/03/22] metformin 500 mg tablet 500 mg PO DAILY 05/10/19 [History Confirmed 07/29/22] ondansetron 4 mg disintegrating tablet 4 mg PO Q4H PRN Nausea 05/10/19 [History Confirmed 06/03/22] polyethylene glycol 3350 17 gram oral powder packet (Miralax) 17 g PO DAILY PRN Constipation 05/10/19 [History Confirmed 06/03/22] pravastatin 10 mg tablet 10 mg PO DAILY 05/10/19 [History Confirmed 06/03/22] risperidone 0.25 mg tablet 0.25 mg PO BID 05/10/19 [History Confirmed 06/03/22] spironolactone 25 mg tablet 25 mg PO DAILY 05/10/19 [History Confirmed 06/03/22] valacyclovir 1 gram tablet 1,000 mg PO TID 02/11/22 [History Confirmed 06/03/22] Allergies cat dander Allergy (Verified 04/08/22 13:01) Sneezing codeine Allergy (Verified 04/08/22 13:01) Unknown Reaction glycerin Allergy (Verified 04/08/22 13:01) Unknown Reaction latex Allergy (Verified 04/08/22 13:01) Unknown Reaction lidocaine Allergy (Verified 04/08/22 13:01) Unknown Reaction meperidine [From Demerol] Allergy (Verified 04/08/22 13:01) Confusion mold Allergy (Verified 04/08/22 13:01) Sneezing NSAIDS (Non-Steroidal Anti-Inflamma Allergy (Verified 04/08/22 13:01) Rash Sulfa (Sulfonamide Antibiotics) Allergy (Verified 04/08/22 13:01) Rash Wound/Ulcer Abdomen: Type: Surgical Wound (Non-healing surgical wound) Thickness: Full Bed Appearance: [place] and Rolled Edges Percent of Wound Bed Granulated/Red: 100 Percent of Devitalized: 0 Length (cm): 0.2 Width (cm): 0.4 Depth (cm): 0.4 CM Sq: 0.080 Surrounding Tissue Appearance: Hyperpigmented Surrounding Tissue Temp: Warm Drainage Amount: Small Drainage Description: Serosanguineous Drainage Odor: No Odor Results Height: 5 ft Weight: 73.21 kg Body Mass Index: 31.5 Assessment/Plan Assessment/Plan (1) Surgical wound, non healing: Qualifiers: Encounter type: sequela Qualified Code(s): T81.89XS - Other complications of procedures, not elsewhere classified, sequela Code(s): T81.89XA - Other complications of procedures, not elsewhere classified, initial encounter Status: Chronic (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: Assessment/Problem Details: patient states mesh is present in abdomen Qualifiers: Encounter type: initial encounter Qualified Code(s): T85.79XA - Infection and inflammatory reaction due to other internal prosthetic devices, implants and grafts, initial encounter Code(s): T85.79XA - Infection and inflammatory reaction due to other internal prosthetic devices, implants and grafts, initial encounter Status: Suspected (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 - Fistula of intestine Status: Chronic (4) Obesity: Code(s): E66.9 - Obesity, unspecified Status: Chronic (5) Limited mobility: Code(s): Z74.09 - Other reduced mobility Status: Chronic (6) Requires daily assistance for activities of daily living (ADL) and comfort needs: Code(s): Z74.1 - Need for assistance with personal care Status: Chronic (7) Dementia: Code(s): F03.90 - Unspecified dementia, unspecified severity, without behavioral disturbance, psychotic disturbance, mood disturbance, and anxiety Status: Chronic Time spent with patient Time Spent With Patient (min): 15 Dictated By: Wendy Scott APRN DD/ 21 Signed By: <Electronically signed by DG Scott> 09/23/22 [address] [facility] Work Phone: 1(435) 855-216509-21-2022 Progress note Author Wendy Scott [facility] July 29, 2022 11:35am Note Date/Time July 29, 2022 11:34am [facility] [address] [place] [address] Wound Center Provider Note Signed Patient: Vidhya Giordano MR#: [id number] : 1940 Acct:[id number] Age/Sex: 82 / F Copies to: MD Wendy Verdugo APRN~ HPI Date of Visit Date of Visit: Date of Service: 07/29/2022 Time of Service: 11:25 Narrative HPI: Vidhya is an 81 year old female presenting to [facility] wound care program for afollow up visit for an abdominal ulcer. 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 Her daughter states that she did have mesh removed from the area but that there is still mesh in place and I do wonder if this area will not heal because of the foreign body that is still in place- Vidhya has no intention of any further surgical procedures. The patient reports that this area has been opening on and off for the past 3-4 years. She is currently living with her daughter at her home and she has HH in place. I did order collagen silver and bordered foam for bioburden control and to assist in healing- the area looks epithelialized today 04/08/22. The patient reports that her appetite has been good- I did provide her with Humble samples, unflavored and flavored and did educate her and her daughter about obtaining these if she likes them. Healing of the area will be largely dependent on an adequate diet, compliance with dressing changes, and prevention of infection- it is highly likely that this will never remain healed given the internal mesh. She can be seen every 8 weeks for maintenance. 06/03/22 the area is stable, orders kept the same, can be seen again in 8 weeks for maintenance 07/29/22 stable, no real change, silver nitrate was applied today, orders kept asis, 8 week appt Subjective Pain Abdomen: Pain Description: Soreness Pain Intensity: 6 Wound/Ulcer History Mode of Arrival/ Residence Hall Director: Family Assistive Device Used Today: Wheelchair Lives with:: Children Appetite Description: Within Normal Limits Who helps w/ dressing change?: Home Health Why Do You Need Help?: Can't Reach Ulcer, Limited mobility, Unsafe leave home byself and Taxing effort to leave home Smoking Status: Former smoker [facility], [facility] Medical History (Updated 06/03/22 @ 11:55 by Wendy Scott APRN) Alzheimer disease Bipolar disorder Chronic pain Chronic UTI Dementia Gout HBP (high blood pressure) Hyperlipemia Intestinal fistula Major depressive disorder Muscle weakness Neck fracture Skin ulcer of abdomen SOB (shortness of breath) Surgical History H/O: hysterectomy Hx of cholecystectomy Family History Mother Cancer Daughter Cancer Sister Cancer Social History Smoking Status: Former smoker Tobacco Type: cigarettes Substance Use Type: None Grafts History of Graft History of Graft?: No Exam Physical Exam Vital Signs: Temp Pulse Resp BP O2 Del Method 98.1 F 61 20 145/71 H Room Air 07/29/22 11:17 07/29/22 11:17 07/29/22 11:17 07/29/22 11:17 07/29/22 11:17 Const General: cooperative, comfortable and no acute distress Nutritional Appearance: obese Orientation: alert, awake and oriented x3 Lower/Upper Extremity Exam Vascular Exam-Pulses Left Brachial: Pulse Assessment Method: NIBP Objective Meds/Allergies Home Medications albuterol sulfate 90 mcg/actuation aerosol inhaler (ProAir HFA) 2 puff inhalation Q6HR PRN Shortness Of Breath 12/23/17 [History Confirmed 06/03/22] atenolol 25 mg tablet 12.5 mg PO DAILY 12/23/17 [History Confirmed 06/03/22] buprenorphine 20 mcg/hour weekly transdermal patch 20 mcg/hr topical QWEEK 12/23/17 [History Confirmed 06/03/22] calcium carbonate 600 mg-vitamin D3 20 mcg (800 unit) chewable tablet (Caltrate 600 plus D) 1 tab PO DAILY 12/23/17 [History Confirmed 06/03/22] chlorpheniramine maleate 4 mg tablet (Chlor-Trimeton) 2 mg PO DAILY 12/23/17 [History Confirmed 06/03/22] donepezil 5 mg tablet 5 mg PO DAILY 12/23/17 [History Confirmed 06/03/22] escitalopram oxalate 20 mg tablet 20 mg PO BID 12/23/17 [History Confirmed 06/03/22] gabapentin 600 mg tablet 800 mg PO DAILY 12/23/17 [History Confirmed 06/03/22] multivitamin (Daily-Justo tablet) 1 tab PO DAILY 12/23/17 [History Confirmed 06/03/22] pantoprazole 40 mg tablet,delayed release 40 mg PO DAILY 12/23/17 [History Confirmed 06/03/22] triamcinolone acetonide 0.1 % topical ointment 1 applic topical DAILY #30 grams 12/23/17 [Rx Confirmed 06/03/22] acetaminophen 650 mg tablet,extended release 650 mg PO Q4-6H PRN Pain 05/10/19 [History Confirmed 06/03/22] allopurinol 100 mg tablet 100 mg PO DAILY 05/10/19 [History Confirmed 06/03/22] cyanocobalamin (vitamin B-12) 2,500 mcg sublingual tablet (Vitamin B-12) 2,500 mcg sublingual DAILY 05/10/19 [History Confirmed 06/03/22] cyclobenzaprine 10 mg tablet 10 mg PO BID PRN Muscle Spasm 05/10/19 [History Confirmed 06/03/22] lactobacillus combination no.4 3 billion cell capsule (Probiotic) 3,000 mmu cells PO DAILY 05/10/19 [History Confirmed 06/03/22] meclizine 12.5 mg tablet 12.5 mg PO DAILY PRN Dizziness 05/10/19 [History Confirmed 06/03/22] metformin 500 mg tablet 500 mg PO DAILY 05/10/19 [History Confirmed 07/29/22] ondansetron 4 mg disintegrating tablet 4 mg PO Q4H PRN Nausea 05/10/19 [History Confirmed 06/03/22] polyethylene glycol 3350 17 gram oral powder packet (Miralax) 17 g PO DAILY PRN Constipation 05/10/19 [History Confirmed 06/03/22] pravastatin 10 mg tablet 10 mg PO DAILY 05/10/19 [History Confirmed 06/03/22] risperidone 0.25 mg tablet 0.25 mg PO BID 05/10/19 [History Confirmed 06/03/22] spironolactone 25 mg tablet 25 mg PO DAILY 05/10/19 [History Confirmed 06/03/22] valacyclovir 1 gram tablet 1,000 mg PO TID 02/11/22 [History Confirmed 06/03/22] Allergies cat dander Allergy (Verified 04/08/22 13:01) Sneezing codeine Allergy (Verified 04/08/22 13:01) Unknown Reaction glycerin Allergy (Verified 04/08/22 13:01) Unknown Reaction latex Allergy (Verified 04/08/22 13:01) Unknown Reaction lidocaine Allergy (Verified 04/08/22 13:01) Unknown Reaction meperidine [From Demerol] Allergy (Verified 04/08/22 13:01) Confusion mold Allergy (Verified 04/08/22 13:01) Sneezing NSAIDS (Non-Steroidal Anti-Inflamma Allergy (Verified 04/08/22 13:01) Rash Sulfa (Sulfonamide Antibiotics) Allergy (Verified 04/08/22 13:01) Rash Wound/Ulcer Abdomen: Type: Surgical Wound (Non-healing surgical wound) Thickness: Full Bed Appearance: Beefy Red, [place] and Rolled Edges Percent of Wound Bed Granulated/Red: 100 Percent of Devitalized: 0 Length (cm): 0.2 Width (cm): 0.3 Depth (cm): 0.3 CM Sq: 0.060 Surrounding Tissue Appearance: Hyperpigmented Surrounding Tissue Temp: Warm Drainage Amount: Small Drainage Description: Serosanguineous Drainage Odor: No Odor Lidocaine Applied Topically: 2% Jelly Chemical Cauterization: Chem Caut-Epibole Procedures Time Out: 2 Patient Identifiers, Correct Patient, Correct Side/Site, Correct Procedure and Safety Issues Reviewed Procedure: Silver nitrate was applied to the abdomen wound to knock down the rolled edges of the ulcer- she tolerated well. Results Height: 5 ft Weight: 73.21 kg Body Mass Index: 31.5 Assessment/Plan Assessment/Plan (1) Surgical wound, non healing: Qualifiers: Encounter type: sequela Qualified Code(s): T81.89XS - Other complications of procedures, not elsewhere classified, sequela Code(s): T81.89XA - Other complications of procedures, not elsewhere classified, initial encounter Status: Chronic (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: Assessment/Problem Details: patient states mesh is present in abdomen Qualifiers: Encounter type: initial encounter Qualified Code(s): T85.79XA - Infection and inflammatory reaction due to other internal prosthetic devices, implants and grafts, initial encounter Code(s): T85.79XA - Infection and inflammatory reaction due to other internal prosthetic devices, implants and grafts, initial encounter Status: Suspected (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 - Fistula of intestine Status: Chronic (4) Obesity: Code(s): E66.9 - Obesity, unspecified Status: Chronic (5) Limited mobility: Code(s): Z74.09 - Other reduced mobility Status: Chronic (6) Requires daily assistance for activities of daily living (ADL) and comfort needs: Code(s): Z74.1 - Need for assistance with personal care Status: Chronic (7) Dementia: Code(s): F03.90 - Unspecified dementia without behavioral disturbance Status: Chronic Time spent with patient Time Spent With Patient (min): 10 Dictated By: Wendy Scott APRN DD/ 24 Signed By: <Electronically signed by DG Scott> 07/29/22 113[address] [facility] Work Phone: [phone]) 545-450007-27-2022 Progress note Author Wendy Scott [facility] June 03, 2022 11:56am Note Date/Time June 03, 2022 11:5 5am [facility] [address] [place] [address] Wound Center Provider Note Signed Patient: Vidhya Giordano MR#: [id number] : 1940 Acct:[id number] Age/Sex: 81 / F Copies to: MD Wendy Verdugo APRN~ HPI Date of Visit Date of Visit: Date of Service: 06/03/2022 Time of Service: 11:54 Narrative HPI: Vidhya is an 81 year old female presenting to [facility] wound care program for afollow up visit for an abdominal ulcer. 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 Her daughter states that she did have mesh removed from the area but that there is still mesh in place and I do wonder if this area will not heal because of the foreign body that is still in place- Vihdya has no intention of any further surgical procedures. The patient reports that this area has been opening on and off for the past 3-4 years. She is currently living with her daughter at her home and she has HH in place. I did order collagen silver and bordered foam for bioburden control and to assist in healing- the area looks epithelialized today 04/08/22. The patient reports that her appetite has been good- I did provide her with Humble samples, unflavored and flavored and did educate her and her daughter about obtaining these if she likes them. Healing of the area will be largely dependent on an adequate diet, compliance with dressing changes, and prevention of infection- it is highly likely that this will never remain healed given the internal mesh. She can be seen every 8 weeks for maintenance. 06/03/22 the area is stable, orders kept the same, can be seen again in 8 weeks for maintenance Subjective Pain Abdomen: Pain Description: Soreness Pain Intensity: 7 Pain Management Techniques Other/Comment: 02/11/2022 States sharp pain from shingles Wound/Ulcer History Mode of Arrival/ Residence Hall Director: Family Assistive Device Used Today: Wheelchair Lives with:: Children Appetite Description: Within Normal Limits Who helps w/ dressing change?: Home Health Why Do You Need Help?: Can't Reach Ulcer, Limited mobility, Unsafe leave home byself and Taxing effort to leave home Smoking Status: Former smoker [facility], [facility] Medical History (Updated 06/03/22 @ 11:55 by Wendy Scott APRN) Alzheimer disease Bipolar disorder Chronic pain Chronic UTI Dementia Gout HBP (high blood pressure) Hyperlipemia Intestinal fistula Major depressive disorder Muscle weakness Neck fracture Skin ulcer of abdomen SOB (shortness of breath) Surgical History H/O: hysterectomy Hx of cholecystectomy Family History Mother Cancer Daughter Cancer Sister Cancer Social History Smoking Status: Former smoker Tobacco Type: cigarettes Substance Use Type: None Grafts History of Graft History of Graft?: No Exam Physical Exam Vital Signs: Temp Pulse Resp BP O2 Del Method 97.5 F L 67 18 148/77 H Room Air 06/03/22 11:45 06/03/22 11:45 06/03/22 11:45 06/03/22 11:45 06/03/22 11:45 Const General: cooperative, comfortable and no acute distress Nutritional Appearance: obese Orientation: alert, awake and oriented x3 Lower/Upper Extremity Exam Vascular Exam-Pulses Left Brachial: Pulse Assessment Method: NIBP Objective Meds/Allergies Home Medications albuterol sulfate 90 mcg/actuation aerosol inhaler (ProAir HFA) 2 puff inhalation Q6HR PRN Shortness Of Breath 12/23/17 [History Confirmed 06/03/22] atenolol 25 mg tablet 12.5 mg PO DAILY 12/23/17 [History Confirmed 06/03/22] buprenorphine 20 mcg/hour weekly transdermal patch 20 mcg/hr topical QWEEK 12/23/17 [History Confirmed 06/03/22] calcium carbonate 600 mg-vitamin D3 20 mcg (800 unit) chewable tablet (Caltrate 600 plus D) 1 tab PO DAILY 12/23/17 [History Confirmed 06/03/22] chlorpheniramine maleate 4 mg tablet (Chlor-Trimeton) 2 mg PO DAILY 12/23/17 [History Confirmed 06/03/22] donepezil 5 mg tablet 5 mg PO DAILY 12/23/17 [History Confirmed 06/03/22] escitalopram oxalate 20 mg tablet 20 mg PO BID 12/23/17 [History Confirmed 06/03/22] gabapentin 600 mg tablet 800 mg PO DAILY 12/23/17 [History Confirmed 06/03/22] multivitamin (Daily-Justo) 1 tab PO DAILY 12/23/17 [History Confirmed 06/03/22] pantoprazole 40 mg tablet,delayed release 40 mg PO DAILY 12/23/17 [History Confirmed 06/03/22] triamcinolone acetonide 0.1 % topical ointment 1 applic topical DAILY #30 grams 12/23/17 [Rx Confirmed 06/03/22] acetaminophen 650 mg tablet,extended release 650 mg PO Q4-6H PRN Pain 05/10/19 [History Confirmed 06/03/22] allopurinol 100 mg tablet 100 mg PO DAILY 05/10/19 [History Confirmed 06/03/22] cyanocobalamin (vitamin B-12) 2,500 mcg sublingual tablet (Vitamin B-12) 2,500 mcg sublingual DAILY 05/10/19 [History Confirmed 06/03/22] cyclobenzaprine 10 mg tablet 10 mg PO BID PRN Muscle Spasm 05/10/19 [History Confirmed 06/03/22] lactobacillus combination no.4 3 billion cell capsule (Probiotic) 3,000 mmu cells PO DAILY 05/10/19 [History Confirmed 06/03/22] meclizine 12.5 mg tablet 12.5 mg PO DAILY PRN Dizziness 05/10/19 [History Confirmed 06/03/22] metformin 500 mg tablet 500 mg PO BID 05/10/19 [History Confirmed 06/03/22] ondansetron 4 mg disintegrating tablet 4 mg PO Q4H PRN Nausea 05/10/19 [History Confirmed 06/03/22] polyethylene glycol 3350 17 gram oral powder packet (Miralax) 17 g PO DAILY PRN Constipation 05/10/19 [History Confirmed 06/03/22] pravastatin 10 mg tablet 10 mg PO DAILY 05/10/19 [History Confirmed 06/03/22] risperidone 0.25 mg tablet 0.25 mg PO BID 05/10/19 [History Confirmed 06/03/22] spironolactone 25 mg tablet 25 mg PO DAILY 05/10/19 [History Confirmed 06/03/22] valacyclovir 1 gram tablet 1,000 mg PO TID 02/11/22 [History Confirmed 06/03/22] Allergies cat dander Allergy (Verified 04/08/22 13:01) Sneezing codeine Allergy (Verified 04/08/22 13:01) Unknown Reaction glycerin Allergy (Verified 04/08/22 13:01) Unknown Reaction latex Allergy (Verified 04/08/22 13:01) Unknown Reaction lidocaine Allergy (Verified 04/08/22 13:01) Unknown Reaction meperidine [From Demerol] Allergy (Verified 06/01/22 13:01) Confusion mold Allergy (Verified 04/08/22 13:01) Sneezing NSAIDS (Non-Steroidal Anti-Inflamma Allergy (Verified 04/08/22 13:01) Rash Sulfa (Sulfonamide Antibiotics) Allergy (Verified 04/08/22 13:01) Rash Wound/Ulcer Abdomen: Type: Surgical Wound (Non-healing surgical wound) Thickness: Full Bed Appearance: Beefy Red, [place] and Hypergranulation Percent of Wound Bed Granulated/Red: 90 Percent of Devitalized: 10 Length (cm): 0.2 Width (cm): 0.2 Depth (cm): 0.3 CM Sq: 0.040 Surrounding Tissue Appearance: Hyperpigmented Surrounding Tissue Temp: Warm Drainage Amount: Small Drainage Description: Serosanguineous Drainage Odor: No Odor Results Height: 5 ft Weight: 73.21 kg Body Mass Index: 31.5 Assessment/Plan Assessment/Plan (1) Surgical wound, non healing: Qualifiers: Encounter type: sequela Qualified Code(s): T81.89XS - Other complications of procedures, not elsewhere classified, sequela Code(s): T81.89XA - Other complications of procedures, not elsewhere classified, initial encounter Status: Chronic (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: Assessment/Problem Details: patient states mesh is present in abdomen Qualifiers: Encounter type: initial encounter Qualified Code(s): T85.79XA - Infection and inflammatory reaction due to other internal prosthetic devices, implants and grafts, initial encounter Code(s): T85.79XA - Infection and inflammatory reaction due to other internal prosthetic devices, implants and grafts, initial encounter Status: Suspected (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 - Fistula of intestine Status: Chronic (4) Obesity: Code(s): E66.9 - Obesity, unspecified Status: Chronic (5) Limited mobility: Code(s): Z74.09 - Other reduced mobility Status: Chronic (6) Requires daily assistance for activities of daily living (ADL) and comfort needs: Code(s): Z74.1 - Need for assistance with personal care Status: Chronic (7) Dementia: Code(s): F03.90 - Unspecified dementia without behavioral disturbance Status: Chronic Time spent with patient Time Spent With Patient (min): 10 Dictated By: Wendy Scott APRN DD/ 1154 Signed By: <Electronically signed by DG Scott> 06/03/22 115[address] [facility] Work Phone: 1(775) 269-237606-01-2022 Progress note Author Wendy Scott [facility] April 08, 2022 1:14pm Note Date/Time April 08, 2022 1:14p m [facility] [address] [place] [address] Wound Center Provider Note Signed Patient: Vidhya Giordano MR#: [id number] : 1940 Acct:[id number] Age/Sex: 81 / F Copies to: MD Wendy Verdugo APRN~ HPI Date of Visit Date of Visit: Date of Service: 04/08/2022 Time of Service: 13:11 Narrative HPI: Vidhya is an 81 year old female presenting to [facility] wound care program for afollow up visit for an abdominal ulcer. 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 Her daughter states that she did have mesh removed from the area but that there is still mesh in place and I do wonder if this area will not heal because of the foreign body that is still in place- Vidhya has no intention of any further surgical procedures. The patient reports that this area has been opening on and off for the past 3-4 years. She is currently living with her daughter at her home and she has HH in place. I did order collagen silver and bordered foam for bioburden control and to assist in healing- the area looks epithelialized today 04/08/22. The patient reports that her appetite has been good- I did provide her with Humble samples, unflavored and flavored and did educate her and her daughter about obtaining these if she likes them. Healing of the area will be largely dependent on an adequate diet, compliance with dressing changes, and prevention of infection- it is highly likely that this will never remain healed given the internal mesh. She can be seen every 8 weeks for maintenance. Subjective Pain Abdomen: Pain Intensity: 0 Wound/Ulcer History Mode of Arrival/ Residence Hall Director: Family Assistive Device Used Today: Wheelchair Lives with:: Children Appetite Description: Within Normal Limits Who helps w/ dressing change?: Home Health Why Do You Need Help?: Can't Reach Ulcer, Limited mobility, Unsafe leave home byself and Taxing effort to leave home Smoking Status: Former smoker [facility], [facility] Medical History (Updated 04/08/22 @ 13:13 by Wendy Scott APRN) Alzheimer disease Bipolar disorder Chronic pain Chronic UTI Dementia Gout HBP (high blood pressure) Hyperlipemia Intestinal fistula Major depressive disorder Muscle weakness Neck fracture Skin ulcer of abdomen SOB (shortness of breath) Surgical History H/O: hysterectomy Hx of cholecystectomy Family History Mother Cancer Daughter Cancer Sister Cancer Social History Smoking Status: Former smoker Tobacco Type: cigarettes Substance Use Type: None Grafts History of Graft History of Graft?: No Exam Physical Exam Vital Signs: Temp Pulse Resp BP 97.3 F L 73 18 155/78 H 04/08/22 13:00 04/08/22 13:00 04/08/22 13:00 04/08/22 13:00 Const General: cooperative, comfortable and no acute distress Nutritional Appearance: obese Orientation: alert, awake and oriented x3 Lower/Upper Extremity Exam Vascular Exam-Pulses Right Brachial: Pulse Assessment Method: NIBP Objective Meds/Allergies Home Medications albuterol sulfate 90 mcg/actuation aerosol inhaler (ProAir HFA) 2 puff INHALATION Q6HR PRN 12/23/17 [History Confirmed 04/08/22] atenolol 25 mg tablet 12.5 mg PO DAILY 12/23/17 [History Confirmed 04/08/22] buprenorphine 20 mcg/hour weekly transdermal patch 20 mcg/hr TOPICAL QWEEK 12/23/17 [History Confirmed 04/08/22] calcium carbonate 600 mg-vitamin D3 20 mcg (800 unit) chewable tablet (Caltrate 600 plus D) 1 tab PO DAILY 12/23/17 [History Confirmed 04/08/22] chlorpheniramine maleate 4 mg tablet (Chlor-Trimeton) 2 mg PO DAILY 12/23/17 [History Confirmed 04/08/22] donepezil 5 mg tablet 5 mg PO DAILY 12/23/17 [History Confirmed 04/08/22] escitalopram oxalate 20 mg tablet 20 mg PO BID 12/23/17 [History Confirmed 04/08/22] gabapentin 600 mg tablet 800 mg PO DAILY 12/23/17 [History Confirmed 04/08/22] multivitamin (Daily-Justo) 1 tab PO DAILY 12/23/17 [History Confirmed 04/08/22] pantoprazole 40 mg tablet,delayed release 40 mg PO DAILY 12/23/17 [History Confirmed 04/08/22] triamcinolone acetonide 0.1 % topical ointment 1 applic TOPICAL DAILY #30 gm 12/23/17 [Rx Confirmed 04/08/22] acetaminophen 650 mg tablet,extended release 650 mg PO Q4-6H PRN 05/10/19 [History Confirmed 04/08/22] allopurinol 100 mg tablet 100 mg PO DAILY 05/10/19 [History Confirmed 04/08/22] cyanocobalamin (vitamin B-12) 2,500 mcg sublingual tablet (Vitamin B-12) 2,500 mcg SUBLINGUAL DAILY 05/10/19 [History Confirmed 04/08/22] cyclobenzaprine 10 mg tablet 10 mg PO BID PRN 05/10/19 [History Confirmed 04/08/22] lactobacillus combination no.4 3 billion cell capsule (Probiotic) 3,000 mmu cells PO DAILY 05/10/19 [History Confirmed 04/08/22] meclizine 12.5 mg tablet 12.5 mg PO DAILY PRN 05/10/19 [History Confirmed 04/08/22] metformin 500 mg tablet 500 mg PO BID 05/10/19 [History Confirmed 04/08/22] ondansetron 4 mg disintegrating tablet 4 mg PO Q4H PRN 05/10/19 [History Confirmed 04/08/22] polyethylene glycol 3350 17 gram oral powder packet (Miralax) 17 g PO DAILY PRN 05/10/19 [History Confirmed 04/08/22] pravastatin 10 mg tablet 10 mg PO DAILY 05/10/19 [History Confirmed 04/08/22] risperidone 0.25 mg tablet 0.25 mg PO BID 05/10/19 [History Confirmed 04/08/22] spironolactone 25 mg tablet 25 mg PO DAILY 05/10/19 [History Confirmed 04/08/22] valacyclovir 1 gram tablet 1,000 mg PO TID 02/11/22 [History Confirmed 04/08/22] Allergies cat dander Allergy (Verified 04/08/22 13:01) Sneezing codeine Allergy (Verified 04/08/22 13:01) Unknown Reaction glycerin Allergy (Verified 04/08/22 13:01) Unknown Reaction latex Allergy (Verified 04/08/22 13:01) Unknown Reaction lidocaine Allergy (Verified 04/08/22 13:01) Unknown Reaction meperidine [From Demerol] Allergy (Verified 04/08/22 13:01) Confusion mold Allergy (Verified 04/08/22 13:01) Sneezing NSAIDS (Non-Steroidal Anti-Inflamma Allergy (Verified 04/08/22 13:01) Rash Sulfa (Sulfonamide Antibiotics) Allergy (Verified 04/08/22 13:01) Rash Wound/Ulcer Abdomen: Type: Surgical Wound (Non-healing surgical wound) Thickness: Full Length (cm): 0 Width (cm): 0 Depth (cm): 0 CM Sq: 0.000 Tunneling Position: 00:00 Tunneling Depth: 0 Surrounding Tissue Appearance: Hyperpigmented Surrounding Tissue Temp: Warm Drainage Amount: None Drainage Odor: No Odor Results Height: 5 ft Weight: 73.21 kg Body Mass Index: 31.5 Assessment/Plan Assessment/Plan (1) Surgical wound, non healing: Qualifiers: Encounter type: subsequent encounter Qualified Code(s): T81.89XD - Other complications of procedures, not elsewhere classified, subsequent encounter Code(s): T81.89XA - Other complications of procedures, not elsewhere classified, initial encounter Status: Resolved (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: Assessment/Problem Details: patient states mesh is present in abdomen Qualifiers: Encounter type: initial encounter Qualified Code(s): T85.79XA - Infection and inflammatory reaction due to other internal prosthetic devices, implants and grafts, initial encounter Code(s): T85.79XA - Infection and inflammatory reaction due to other internal prosthetic devices, implants and grafts, initial encounter Status: Suspected (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 - Fistula of intestine Status: Chronic (4) Obesity: Code(s): E66.9 - Obesity, unspecified Status: Chronic (5) Limited mobility: Code(s): Z74.09 - Other reduced mobility Status: Chronic (6) Requires daily assistance for activities of daily living (ADL) and comfort needs: Code(s): Z74.1 - Need for assistance with personal care Status: Chronic (7) Dementia: Code(s): F03.90 - Unspecified dementia without behavioral disturbance Status: Chronic Time spent with patient Time Spent With Patient (min): 15 Dictated By: Wendy Scott APRN DD/ 1311 Signed By: <Electronically signed by DG Scott> 04/08/22 13[address] [facility] Work Phone: 1(945) 960-861404-06-2022 Progress note Author Wendy Scott [facility] February 11, 2022 1:50pm Note Date/Time February 11, 2022 1:50 pm [facility] [address] [place] [address] Wound Center Provider Note Signed Patient: Vidhya Giordano MR#: [id number] : 1940 Acct:[id number] Age/Sex: 81 / F Copies to: MD Wendy Verdugo APRN~ HPI Date of Visit Date of Visit: Date of Service: 02/11/2022 Time of Service: 13:46 Narrative HPI: Vidhya is an 81 year old female presenting to [facility] wound care program for afollow up visit for an abdominal ulcer. 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 Her daughter states that she did have mesh removed from the area but that there is still mesh in place and I do wonder if this area will not heal because of the foreign body that is still in place- Vidhya has no intention of any further surgical procedures. The patient reports that this area has been opening on and off for the past 3-4 years. She is currently living with her daughter at her home and she has HH in place. I did order Iodoflex, and bordered foam for bioburden control and to assist in healing. The patient reports that her appetite has been good- I did provide her with Humble samples, unflavored and flavored and did educate her and her daughter about obtaining these if she likes them. Healing of the area will be largely dependent on an adequate diet, compliance with dressing changes, and prevention of infection- it is highly likely that this will never heal given the internal mesh. She can be seen every 8 weeks for maintenance. Subjective Pain Abdomen: Pain Intensity: 0 Pain Management Techniques Other/Comment: 02/11/2022 States sharp pain from shingles Wound/Ulcer History Mode of Arrival/ Residence Hall Director: Family Assistive Device Used Today: Wheelchair Lives with:: Children Appetite Description: Within Normal Limits Who helps w/ dressing change?: Home Health Why Do You Need Help?: Can't Reach Ulcer, Limited mobility, Unsafe leave home byself and Taxing effort to leave home Smoking Status: Former smoker [facility], [facility] Medical History (Updated 01/02/21 @ 15:16 by Nichole Giordano APRN) Alzheimer disease Bipolar disorder Chronic pain Chronic UTI Dementia Gout HBP (high blood pressure) Hyperlipemia Intestinal fistula Major depressive disorder Muscle weakness Neck fracture Skin ulcer of abdomen SOB (shortness of breath) Surgical History H/O: hysterectomy Hx of cholecystectomy Family History Mother Cancer Daughter Cancer Sister Cancer Social History Smoking Status: Former smoker Tobacco Type: cigarettes Substance Use Type: None Grafts History of Graft History of Graft?: No Exam Physical Exam Vital Signs: Temp Pulse Resp BP 97.5 F L 72 20 138/83 02/11/22 13:37 02/11/22 13:37 02/11/22 13:37 02/11/22 13:37 Const General: cooperative, comfortable and no acute distress Nutritional Appearance: obese Orientation: alert, awake and oriented x3 Lower/Upper Extremity Exam Vascular Exam-Pulses Right Brachial: Pulse Assessment Method: NIBP Objective Meds/Allergies Home Medications albuterol sulfate 90 mcg/actuation aerosol inhaler (ProAir HFA) 2 puff INHALATION Q6HR PRN 12/23/17 [History Confirmed 02/11/22] atenolol 25 mg tablet 12.5 mg PO DAILY 12/23/17 [History Confirmed 02/11/22] buprenorphine 20 mcg/hour weekly transdermal patch 20 mcg/hr TOPICAL QWEEK 12/23/17 [History Confirmed 02/11/22] calcium carbonate 600 mg-vitamin D3 20 mcg (800 unit) chewable tablet (Caltrate 600 plus D) 1 tab PO DAILY 12/23/17 [History Confirmed 02/11/22] chlorpheniramine maleate 4 mg tablet (Chlor-Trimeton) 2 mg PO DAILY 12/23/17 [History Confirmed 02/11/22] donepezil 5 mg tablet 5 mg PO DAILY 12/23/17 [History Confirmed 02/11/22] escitalopram oxalate 20 mg tablet 20 mg PO BID 12/23/17 [History Confirmed 02/11/22] gabapentin 600 mg tablet 800 mg PO DAILY 12/23/17 [History Confirmed 02/11/22] multivitamin (Daily-Justo) 1 tab PO DAILY 12/23/17 [History Confirmed 02/11/22] pantoprazole 40 mg tablet,delayed release 40 mg PO DAILY 12/23/17 [History Confirmed 02/11/22] triamcinolone acetonide 0.1 % topical ointment 1 applic TOPICAL DAILY #30 gm 12/23/17 [Rx Confirmed 02/11/22] acetaminophen 650 mg tablet,extended release 650 mg PO Q4-6H PRN 05/10/19 [History Confirmed 02/11/22] allopurinol 100 mg tablet 100 mg PO DAILY 05/10/19 [History Confirmed 02/11/22] cyanocobalamin (vitamin B-12) 2,500 mcg sublingual tablet (Vitamin B-12) 2,500 mcg SUBLINGUAL DAILY 05/10/19 [History Confirmed 02/11/22] cyclobenzaprine 10 mg tablet 10 mg PO BID PRN 05/10/19 [History Confirmed 02/11/22] lactobacillus combination no.4 3 billion cell capsule (Probiotic) 3,000 mmu cells PO DAILY 05/10/19 [History Confirmed 02/11/22] meclizine 12.5 mg tablet 12.5 mg PO DAILY PRN 05/10/19 [History Confirmed 02/11/22] metformin 500 mg tablet 500 mg PO BID 05/10/19 [History Confirmed 02/11/22] ondansetron 4 mg disintegrating tablet 4 mg PO Q4H PRN 05/10/19 [History Confirmed 02/11/22] polyethylene glycol 3350 17 gram oral powder packet (Miralax) 17 g PO DAILY PRN 05/10/19 [History Confirmed 02/11/22] pravastatin 10 mg tablet 10 mg PO DAILY 05/10/19 [History Confirmed 02/11/22] risperidone 0.25 mg tablet 0.25 mg PO BID 05/10/19 [History Confirmed 02/11/22] spironolactone 25 mg tablet 25 mg PO DAILY 05/10/19 [History Confirmed 02/11/22] cefdinir 300 mg capsule 300 mg PO DAILY 02/11/22 [History Confirmed 02/11/22] valacyclovir 1 gram tablet 1,000 mg PO TID 02/11/22 [History Confirmed 02/11/22] Allergies cat dander Allergy (Verified 12/17/21 13:53) Sneezing codeine Allergy (Verified 12/17/21 13:53) Unknown Reaction glycerin Allergy (Verified 12/17/21 13:53) Unknown Reaction latex Allergy (Verified 12/17/21 13:53) Unknown Reaction lidocaine Allergy (Verified 12/17/21 13:53) Unknown Reaction meperidine [From Demerol] Allergy (Verified 12/17/21 13:53) Confusion mold Allergy (Verified 12/17/21 13:53) Sneezing NSAIDS (Non-Steroidal Anti-Inflamma Allergy (Verified 12/17/21 13:53) Rash Sulfa (Sulfonamide Antibiotics) Allergy (Verified 12/17/21 13:53) Rash Wound/Ulcer Abdomen: Type: Surgical Wound (Non-healing surgical wound) Thickness: Full Bed Appearance: Beefy Red and [place] Percent of Wound Bed Granulated/Red: 90 Percent of Devitalized: 10 Length (cm): 0.6 Width (cm): 0.6 Depth (cm): 0.5 CM Sq: 0.360 Surrounding Tissue Appearance: Hyperpigmented Surrounding Tissue Temp: Warm Drainage Amount: Scant Drainage Description: Sanguineous Drainage Odor: No Odor Results Height: 5 ft Weight: 73.21 kg Body Mass Index: 31.5 Assessment/Plan Assessment/Plan (1) Surgical wound, non healing: Qualifiers: Encounter type: subsequent encounter Qualified Code(s): T81.89XD - Other complications of procedures, not elsewhere classified, subsequent encounter Code(s): T81.89XA - Other complications of procedures, not elsewhere classified, initial encounter Status: Chronic (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: Assessment/Problem Details: patient states mesh is present in abdomen Qualifiers: Encounter type: initial encounter Qualified Code(s): T85.79XA - Infection and inflammatory reaction due to other internal prosthetic devices, implants and grafts, initial encounter Code(s): T85.79XA - Infection and inflammatory reaction due to other internal prosthetic devices, implants and grafts, initial encounter Status: Suspected (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 - Fistula of intestine Status: Chronic (4) Obesity: Code(s): E66.9 - Obesity, unspecified Status: Chronic (5) Limited mobility: Code(s): Z74.09 - Other reduced mobility Status: Chronic (6) Requires daily assistance for activities of daily living (ADL) and comfort needs: Code(s): Z74.1 - Need for assistance with personal care Status: Chronic (7) Dementia: Code(s): F03.90 - Unspecified dementia without behavioral disturbance Status: Chronic Time spent with patient Time Spent With Patient (min): 10 Dictated By: Wendy Scott APRN DD/ [id number] Signed By: <Electronically signed by DG Scott> 02/11/22 [address] [facility] Work Phone: [phone]) 269-487402-09-2022 Progress note Author Wendy Scott [facility] December 17, 2021 2:16pm Note Date/Time December 17, 2021 2 :16pm [facility] [address] [place] [address] Wound Center Provider Note Signed Patient: Vidhya Giordano MR#: [id number] : 1940 Acct:[id number] Age/Sex: 81 / F Copies to: MD Wendy Verdugo APRN~ HPI Date of Visit Date of Visit: Date of Service: 12/17/2021 Time of Service: 14:13 Narrative HPI: Vidhya is an 81 year old female presenting to [facility] wound care program for afollow up visit for an abdominal ulcer. 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 Her daughter states that she did have mesh removed from the area but that there is still mesh in place and I do wonder if this area will not heal because of the foreign body that is still in place- Vidhya has no intention of any further surgical procedures. The patient reports that this area has been opening on and off for the past 3-4 years. She is currently living with her daughter at her home and she has HH in place. I did order collagen silver packing, and bordered foam for bioburden control andto assist in healing. The patient reports that her appetite has been good- I did provide her with Humble samples, unflavored and flavored and did educate her and her daughter about obtaining these if she likes them. Healing of the area will be largely dependent on an adequate diet, compliance with dressing changes, and prevention of infection- it is highly likely that this will never heal given the internal mesh. She can be seen every 8 weeks for maintenance. Subjective Pain Abdomen: Pain Description: Soreness Pain Intensity: 6 Pain Management Techniques Other/Comment: Hurts when I touch it, and I know it is there Wound/Ulcer History Mode of Arrival/ Residence Hall Director: Family Assistive Device Used Today: Wheelchair Lives with:: Children Appetite Description: Within Normal Limits Who helps w/ dressing change?: Home Health Why Do You Need Help?: Can't Reach Ulcer, Limited mobility, Unsafe leave home byself and Taxing effort to leave home Smoking Status: Former smoker [facility], [facility] Medical History (Updated 01/02/21 @ 15:16 by Nichole Giordano APRN) Alzheimer disease Bipolar disorder Chronic pain Chronic UTI Dementia Gout HBP (high blood pressure) Hyperlipemia Intestinal fistula Major depressive disorder Muscle weakness Neck fracture Skin ulcer of abdomen SOB (shortness of breath) Surgical History H/O: hysterectomy Hx of cholecystectomy Family History Mother Cancer Daughter Cancer Sister Cancer Social History Smoking Status: Former smoker Tobacco Type: cigarettes Substance Use Type: None Grafts History of Graft History of Graft?: No Exam Physical Exam Vital Signs: Temp Pulse Resp BP 97.5 F L 76 18 124/68 12/17/21 13:52 12/17/21 13:52 12/17/21 13:52 12/17/21 13:52 Const General: cooperative, comfortable and no acute distress Nutritional Appearance: obese Orientation: alert, awake and oriented x3 Lower/Upper Extremity Exam Vascular Exam-Pulses Right Radial: Pulse Assessment Method: Palpation Objective Meds/Allergies Home Medications albuterol sulfate 90 mcg/actuation aerosol inhaler (ProAir HFA) 2 puff INHALATION Q6HR PRN 12/23/17 [History Confirmed 12/17/21] atenolol 25 mg tablet 12.5 mg PO DAILY 12/23/17 [History Confirmed 12/17/21] buprenorphine 20 mcg/hour weekly transdermal patch 20 mcg/hr TOPICAL QWEEK 12/23/17 [History Confirmed 12/17/21] calcium carbonate 600 mg-vitamin D3 20 mcg (800 unit) chewable tablet (Caltrate 600 plus D) 1 tab PO DAILY 12/23/17 [History Confirmed 12/17/21] chlorpheniramine maleate 4 mg tablet (Chlor-Trimeton) 2 mg PO DAILY 12/23/17 [History Confirmed 12/17/21] donepezil 5 mg tablet 5 mg PO DAILY 12/23/17 [History Confirmed 12/17/21] escitalopram oxalate 20 mg tablet 20 mg PO BID 12/23/17 [History Confirmed 12/17/21] gabapentin 600 mg tablet 800 mg PO DAILY 12/23/17 [History Confirmed 12/17/21] multivitamin (Daily-Justo) 1 tab PO DAILY 12/23/17 [History Confirmed 12/17/21] pantoprazole 40 mg tablet,delayed release 40 mg PO DAILY 12/23/17 [History Confirmed 12/17/21] triamcinolone acetonide 0.1 % topical ointment 1 applic TOPICAL DAILY #30 gm 12/23/17 [Rx Confirmed 12/17/21] acetaminophen 650 mg tablet,extended release 650 mg PO Q4-6H PRN 05/10/19 [History Confirmed 12/17/21] allopurinol 100 mg tablet 100 mg PO DAILY 05/10/19 [History Confirmed 12/17/21] cyanocobalamin (vitamin B-12) 2,500 mcg sublingual tablet (Vitamin B-12) 2,500 mcg SUBLINGUAL DAILY 05/10/19 [History Confirmed 12/17/21] cyclobenzaprine 10 mg tablet 10 mg PO BID PRN 05/10/19 [History Confirmed 12/17/21] lactobacillus combination no.4 3 billion cell capsule (Probiotic) 3,000 mmu cells PO DAILY 05/10/19 [History Confirmed 12/17/21] meclizine 12.5 mg tablet 12.5 mg PO DAILY PRN 05/10/19 [History Confirmed 12/17/21] metformin 500 mg tablet 500 mg PO BID 05/10/19 [History Confirmed 12/17/21] ondansetron 4 mg disintegrating tablet 4 mg PO Q4H PRN 05/10/19 [History Confirmed 12/17/21] polyethylene glycol 3350 17 gram oral powder packet (Miralax) 17 g PO DAILY PRN 05/10/19 [History Confirmed 12/17/21] pravastatin 10 mg tablet 10 mg PO DAILY 05/10/19 [History Confirmed 12/17/21] risperidone 0.25 mg tablet 0.25 mg PO BID 05/10/19 [History Confirmed 12/17/21] spironolactone 25 mg tablet 25 mg PO DAILY 05/10/19 [History Confirmed 12/17/21] Allergies cat dander Allergy (Verified 12/17/21 13:53) Sneezing codeine Allergy (Verified 12/17/21 13:53) Unknown Reaction glycerin Allergy (Verified 12/17/21 13:53) Unknown Reaction latex Allergy (Verified 12/17/21 13:53) Unknown Reaction lidocaine Allergy (Verified 12/17/21 13:53) Unknown Reaction meperidine [From Demerol] Allergy (Verified 12/17/21 13:53) Confusion mold Allergy (Verified 12/17/21 13:53) Sneezing NSAIDS (Non-Steroidal Anti-Inflamma Allergy (Verified 12/17/21 13:53) Rash Sulfa (Sulfonamide Antibiotics) Allergy (Verified 12/17/21 13:53) Rash Wound/Ulcer Abdomen: Type: Surgical Wound (Non-healing surgical wound) Thickness: Full Bed Appearance: Beefy Red and [place] Percent of Wound Bed Granulated/Red: 100 Percent of Devitalized: 0 Length (cm): 0.2 Width (cm): 0.3 Depth (cm): 0.7 CM Sq: 0.060 Surrounding Tissue Appearance: Hyperpigmented Surrounding Tissue Temp: Warm Drainage Amount: Moderate Drainage Description: Bloody Drainage Odor: No Odor Lidocaine Applied Topically: 2% Jelly Results Height: 5 ft Weight: 73.21 kg Body Mass Index: 31.5 Assessment/Plan Assessment/Plan (1) Surgical wound, non healing: Qualifiers: Encounter type: subsequent encounter Qualified Code(s): T81.89XD - Other complications of procedures, not elsewhere classified, subsequent encounter Code(s): T81.89XA - Other complications of procedures, not elsewhere classified, initial encounter Status: Chronic (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: Assessment/Problem Details: patient states mesh is present in abdomen Qualifiers: Encounter type: initial encounter Qualified Code(s): T85.79XA - Infection and inflammatory reaction due to other internal prosthetic devices, implants and grafts, initial encounter Code(s): T85.79XA - Infection and inflammatory reaction due to other internal prosthetic devices, implants and grafts, initial encounter Status: Suspected (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 - Fistula of intestine Status: Chronic (4) Obesity: Code(s): E66.9 - Obesity, unspecified Status: Chronic (5) Limited mobility: Code(s): Z74.09 - Other reduced mobility Status: Chronic (6) Requires daily assistance for activities of daily living (ADL) and comfort needs: Code(s): Z74.1 - Need for assistance with personal care Status: Chronic (7) Dementia: Code(s): F03.90 - Unspecified dementia without behavioral disturbance Status: Chronic Time spent with patient Time Spent With Patient (min): 10 Dictated By: Wendy Scott APRN DD/ 12 Signed By: <Electronically signed by DG Scott> 12/17/21 [facility] Work Phone: [phone]) 867-198911-29-2021 Progress note Author Wendy Scott [facility] October 06, 2021 11:31am Note Date/Time October 06, 2021 11:31am [facility] [address] [place] [address] Wound Center Provider Note Signed Patient: Vidhya Giordano MR#: [id number] : 1940 Acct:[id number] Age/Sex: 81 / F Copies to: MD Wendy Verdugo APRN~ HPI Date of Visit Date of Visit: Date of Service: 10/06/2021 Time of Service: :29 Narrative HPI: Vidhya is an 81 year old female presenting to [facility] wound care program for afollow up visit for an abdominal ulcer. 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 Her daughter states that she did have mesh removed from the area but that there is still mesh in place and I do wonder if this area will not heal because of the foreign body that is still in place. The patient reports that this area has been opening on and off for the past 3-4 years. She is currently living with her daughter at her home and she has HH in place. I did order gentamicin coated1/4 strip gauze packing, and bordered foam for bioburden control and to assist in healing. The patient reports that her appetite has been good- I did provide her with Humble samples, unflavored and flavored and did educate her and her daughter about obtaining these if she likes them. Healing of the area will be largely dependent on an adequate diet, compliance with dressing changes, and prevention of infection- it is highly likely that this will never heal given theinternal mesh. She can be seen every 8 weeks for maintenance. Subjective Pain Abdomen: Pain Description: Intermittent and Sharp Pain Intensity: 6 Pain Management Techniques Other/Comment: Hurts when I touch it, and I know it is there Wound/Ulcer History Mode of Arrival/ Residence Hall Director: Family Assistive Device Used Today: Wheelchair Lives with:: Children Appetite Description: Within Normal Limits Who helps w/ dressing change?: Home Health Why Do You Need Help?: Can't Reach Ulcer, Limited mobility, Unsafe leave home byself and Taxing effort to leave home Smoking Status: Former smoker [facility], [facility] Medical History (Updated 01/02/21 @ 15:16 by Nichole Giordano APRN) Alzheimer disease Bipolar disorder Chronic pain Chronic UTI Dementia Gout HBP (high blood pressure) Hyperlipemia Intestinal fistula Major depressive disorder Muscle weakness Neck fracture Skin ulcer of abdomen SOB (shortness of breath) Surgical History H/O: hysterectomy Hx of cholecystectomy Family History Mother Cancer Daughter Cancer Sister Cancer Social History Smoking Status: Former smoker Tobacco Type: cigarettes Substance Use Type: None Grafts History of Graft History of Graft?: No Exam Physical Exam Vital Signs: Temp Pulse Resp BP 97.3 F L 80 20 160/72 H 10/06/21 11:23 10/06/21 11:23 10/06/21 11:23 10/06/21 11:23 Const General: cooperative, comfortable and no acute distress Nutritional Appearance: obese Orientation: alert, awake and oriented x3 Lower/Upper Extremity Exam Vascular Exam-Pulses Right Radial: Pulse Assessment Method: NIBP Objective Meds/Allergies Home Medications albuterol sulfate 90 mcg/actuation aerosol inhaler (ProAir HFA) 2 puff INHALATION Q6HR PRN 12/23/17 [History Confirmed 06/23/21] atenolol 25 mg tablet 12.5 mg PO DAILY 12/23/17 [History Confirmed 06/23/21] buprenorphine 20 mcg/hour weekly transdermal patch 20 mcg/hr TOPICAL QWEEK 12/23/17 [History Confirmed 06/23/21] calcium carbonate 600 mg-vitamin D3 20 mcg (800 unit) chewable tablet (Caltrate 600 plus D) 1 tab PO DAILY 12/23/17 [History Confirmed 06/23/21] chlorpheniramine maleate 4 mg tablet (Chlor-Trimeton) 2 mg PO DAILY 12/23/17 [History Confirmed 06/23/21] donepezil 5 mg tablet 5 mg PO DAILY 12/23/17 [History Confirmed 06/23/21] escitalopram oxalate 20 mg tablet 20 mg PO BID 12/23/17 [History Confirmed 06/23/21] gabapentin 600 mg tablet 800 mg PO DAILY 12/23/17 [History Confirmed 06/23/21] multivitamin (Daily-Justo) 1 tab PO DAILY 12/23/17 [History Confirmed 06/23/21] pantoprazole 40 mg tablet,delayed release 40 mg PO DAILY 12/23/17 [History Confirmed 06/23/21] triamcinolone acetonide 0.1 % topical ointment 1 applic TOPICAL DAILY #30 gm 12/23/17 [Rx Confirmed 06/23/21] acetaminophen 650 mg tablet,extended release 650 mg PO Q4-6H PRN 05/10/19 [History Confirmed 06/23/21] allopurinol 100 mg tablet 100 mg PO DAILY 05/10/19 [History Confirmed 06/23/21] cyanocobalamin (vitamin B-12) 2,500 mcg sublingual tablet (Vitamin B-12) 2,500 mcg SUBLINGUAL DAILY 05/10/19 [History Confirmed 06/23/21] cyclobenzaprine 10 mg tablet 10 mg PO BID PRN 05/10/19 [History Confirmed 06/23/21] lactobacillus combination no.4 3 billion cell capsule (Probiotic) 3,000 mmu cells PO DAILY 05/10/19 [History Confirmed 06/23/21] meclizine 12.5 mg tablet 12.5 mg PO DAILY PRN 05/10/19 [History Confirmed 06/23/21] metformin 500 mg tablet 500 mg PO BID 05/10/19 [History Confirmed 06/23/21] ondansetron 4 mg disintegrating tablet 4 mg PO Q4H PRN 05/10/19 [History Confirmed 06/23/21] polyethylene glycol 3350 17 gram oral powder packet (Miralax) 17 g PO DAILY PRN 05/10/19 [History Confirmed 06/23/21] pravastatin 10 mg tablet 10 mg PO DAILY 05/10/19 [History Confirmed 06/23/21] risperidone 0.25 mg tablet 0.25 mg PO BID 05/10/19 [History Confirmed 06/23/21] spironolactone 25 mg tablet 25 mg PO DAILY 05/10/19 [History Confirmed 06/23/21] Allergies cat dander Allergy (Verified 06/23/21 11:26) Sneezing codeine Allergy (Verified 06/23/21 11:26) Unknown Reaction glycerin Allergy (Verified 06/23/21 11:26) Unknown Reaction latex Allergy (Verified 06/23/21 11:26) Unknown Reaction lidocaine Allergy (Verified 06/23/21 11:26) Unknown Reaction meperidine [From Demerol] Allergy (Verified 06/23/21 11:26) Confusion mold Allergy (Verified 06/23/21 11:26) Sneezing NSAIDS (Non-Steroidal Anti-Inflamma Allergy (Verified 06/23/21 11:26) Rash Sulfa (Sulfonamide Antibiotics) Allergy (Verified 06/23/21 11:26) Rash Wound/Ulcer Abdomen: Type: Surgical Wound (Non-healing surgical wound) Thickness: Full Bed Appearance: Beefy Red and [place] Percent of Wound Bed Granulated/Red: 100 Percent of Devitalized: 0 Length (cm): 0.2 Width (cm): 0.2 Depth (cm): 0.5 CM Sq: 0.040 Surrounding Tissue Appearance: Hyperpigmented Surrounding Tissue Temp: Warm Drainage Amount: Scant Drainage Description: Bloody Drainage Odor: No Odor Results Height: 5 ft Weight: 73.21 kg Body Mass Index: 31.5 Assessment/Plan Assessment/Plan (1) Surgical wound, non healing: Qualifiers: Encounter type: subsequent encounter Qualified Code(s): T81.89XD - Other complications of procedures, not elsewhere classified, subsequent encounter Code(s): T81.89XA - Other complications of procedures, not elsewhere classified, initial encounter Status: Chronic (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: Assessment/Problem Details: patient states mesh is present in abdomen Qualifiers: Encounter type: initial encounter Qualified Code(s): T85.79XA - Infection and inflammatory reaction due to other internal prosthetic devices, implants and grafts, initial encounter Code(s): T85.79XA - Infection and inflammatory reaction due to other internal prosthetic devices, implants and grafts, initial encounter Status: Suspected (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 - Fistula of intestine Status: Chronic (4) Obesity: Code(s): E66.9 - Obesity, unspecified Status: Chronic (5) Limited mobility: Code(s): Z74.09 - Other reduced mobility Status: Chronic (6) Requires daily assistance for activities of daily living (ADL) and comfort needs: Code(s): Z74.1 - Need for assistance with personal care Status: Chronic (7) Dementia: Code(s): F03.90 - Unspecified dementia without behavioral disturbance Status: Chronic Time spent with patient Time Spent With Patient (min): 15 Dictated By: Wendy Scott APRN DD/ [id number] Signed By: <Electronically signed by DG Scott> 10/06/21 [address] [facility] Work Phone: [phone]) 414-930010-11-2021 Progress note Author Wendy Scott [facility] August 18, 2021 11:42am Note Date/Time August 18, 2021 1 1:42am [facility] [address] [place] [address] Wound Center Provider Note Signed Patient: Vidhya Giordano MR#: [id number] : 1940 Acct:[id number] Age/Sex: 81 / F Copies to: MD Wendy Verdugo, LACTATION COORDINATOR~ HPI Date of Visit Date of Visit: Date of Service: 08/18/2021 Time of Service: 11:37 Narrative HPI: Vidhya is an 81 year old female presenting to [facility] wound care program for afollow up visit for an abdominal ulcer. 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 Her daughter states that she did have mesh removed from the area but that there is still mesh in place and I do wonder if this area will not heal because of the foreign body that is still in place. The patient reports that this area has been opening on and off for the past 3-4 years. She is currently living with her daughter at her home and she has HH in place. I did order gentamicin coated1/4 strip gauze packing, and bordered foam for bioburden control and to assist in healing. The patient reports that her appetite has been good- I did provide her with Humble samples, unflavored and flavored and did educate her and her daughter about obtaining these if she likes them. Healing of the area will be largely dependent on an adequate diet, compliance with dressing changes, and prevention of infection- it is highly likely that this will never heal given theinternal mesh. She can be seen every 8 weeks for maintenance. Subjective Pain Abdomen: Pain Description: Intermittent and Sharp Pain Intensity: 8 Pain Management Techniques Other/Comment: Hurts when I touch it, and I know it is there Wound/Ulcer History Mode of Arrival/ Residence Hall Director: Family Assistive Device Used Today: Wheelchair Lives with:: Children Appetite Description: Within Normal Limits Who helps w/ dressing change?: Home Health Why Do You Need Help?: Can't Reach Ulcer, Limited mobility, Unsafe leave home byself and Taxing effort to leave home Smoking Status: Former smoker [facility], [facility] Medical History (Updated 01/02/21 @ 15:16 by Nichole Giordano APRN) Alzheimer disease Bipolar disorder Chronic pain Chronic UTI Dementia Gout HBP (high blood pressure) Hyperlipemia Intestinal fistula Major depressive disorder Muscle weakness Neck fracture Skin ulcer of abdomen SOB (shortness of breath) Surgical History H/O: hysterectomy Hx of cholecystectomy Family History Mother Cancer Daughter Cancer Sister Cancer Social History Smoking Status: Former smoker Tobacco Type: cigarettes Substance Use Type: None Grafts History of Graft History of Graft?: No Exam Physical Exam Vital Signs: Temp Pulse Resp BP 97.7 F 84 20 131/74 08/18/21 11:23 08/18/21 11:23 08/18/21 11:23 08/18/21 11:23 Const General: cooperative, comfortable and no acute distress Nutritional Appearance: obese Orientation: alert, awake and oriented x3 Lower/Upper Extremity Exam Vascular Exam-Pulses Left Radial: Pulse Assessment Method: NIBP Objective Meds/Allergies Home Medications albuterol sulfate 90 mcg/actuation aerosol inhaler (ProAir HFA) 2 puff INHALATION Q6HR PRN 12/23/17 [History Confirmed 06/23/21] atenolol 25 mg tablet 12.5 mg PO DAILY 12/23/17 [History Confirmed 06/23/21] buprenorphine 20 mcg/hour weekly transdermal patch 20 mcg/hr TOPICAL QWEEK 12/23/17 [History Confirmed 06/23/21] calcium carbonate 600 mg(1,500 mg)-vitamin D3 800 unit chewable tablet ([id number] plus D) 1 tab PO DAILY 12/23/17 [History Confirmed 06/23/21] chlorpheniramine maleate 4 mg tablet (Chlor-Trimeton) 2 mg PO DAILY 12/23/17 [History Confirmed 06/23/21] donepezil 5 mg tablet 5 mg PO DAILY 12/23/17 [History Confirmed 06/23/21] escitalopram oxalate 20 mg tablet 20 mg PO BID 12/23/17 [History Confirmed 06/23/21] gabapentin 600 mg tablet 800 mg PO DAILY 12/23/17 [History Confirmed 06/23/21] multivitamin (Daily-Justo) 1 tab PO DAILY 12/23/17 [History Confirmed 06/23/21] pantoprazole 40 mg tablet,delayed release 40 mg PO DAILY 12/23/17 [History Confirmed 06/23/21] triamcinolone acetonide 0.1 % topical ointment 1 applic TOPICAL DAILY #30 gm 12/23/17 [Rx Confirmed 06/23/21] acetaminophen 650 mg tablet,extended release 650 mg PO Q4-6H PRN 05/10/19 [History Confirmed 06/23/21] allopurinol 100 mg tablet 100 mg PO DAILY 05/10/19 [History Confirmed 06/23/21] cyanocobalamin (vitamin B-12) 2,500 mcg sublingual tablet (Vitamin B-12) 2,500 mcg SUBLINGUAL DAILY 05/10/19 [History Confirmed 06/23/21] cyclobenzaprine 10 mg tablet 10 mg PO BID PRN 05/10/19 [History Confirmed 06/23/21] lactobacillus combination no.4 3 billion cell capsule (Probiotic) 3,000 mmu cells PO DAILY 05/10/19 [History Confirmed 06/23/21] meclizine 12.5 mg tablet 12.5 mg PO DAILY PRN 05/10/19 [History Confirmed 06/23/21] metformin 500 mg tablet 500 mg PO BID 05/10/19 [History Confirmed 06/23/21] ondansetron 4 mg disintegrating tablet 4 mg PO Q4H PRN 05/10/19 [History Confirmed 06/23/21] polyethylene glycol 3350 17 gram oral powder packet (Miralax) 17 g PO DAILY PRN 05/10/19 [History Confirmed 06/23/21] pravastatin 10 mg tablet 10 mg PO DAILY 05/10/19 [History Confirmed 06/23/21] risperidone 0.25 mg tablet 0.25 mg PO BID 05/10/19 [History Confirmed 06/23/21] spironolactone 25 mg tablet 25 mg PO DAILY 05/10/19 [History Confirmed 06/23/21] Allergies cat dander Allergy (Verified 06/23/21 11:26) Sneezing codeine Allergy (Verified 06/23/21 11:26) Unknown Reaction glycerin Allergy (Verified 06/23/21 11:26) Unknown Reaction latex Allergy (Verified 06/23/21 11:26) Unknown Reaction lidocaine Allergy (Verified 06/23/21 11:) Unknown Reaction meperidine [From Demerol] Allergy (Verified 06/23/21 11:26) Confusion mold Allergy (Verified 06/23/21 11:26) Sneezing NSAIDS (Non-Steroidal Anti-Inflamma Allergy (Verified 06/23/21 11:26) Rash Sulfa (Sulfonamide Antibiotics) Allergy (Verified 06/23/21 11:26) Rash Wound/Ulcer Abdomen: Type: Surgical Wound (Non-healing surgical wound) Thickness: Full Bed Appearance: Beefy Red and [place] Percent of Wound Bed Granulated/Red: 100 Percent of Devitalized: 0 Length (cm): 0.2 Width (cm): 0.2 Depth (cm): 0.3 CM Sq: 0.040 Tunneling Position: 05:00 Tunneling Depth: 0.5 Surrounding Tissue Appearance: Hyperpigmented Surrounding Tissue Temp: Warm Drainage Amount: Scant Drainage Description: Bloody Drainage Odor: No Odor Results Height: 5 ft Weight: 73.21 kg Body Mass Index: 31.5 Assessment/Plan Assessment/Plan (1) Surgical wound, non healing: Qualifiers: Encounter type: subsequent encounter Qualified Code(s): T81.89XD - Other complications of procedures, not elsewhere classified, subsequent encounter Code(s): T81.89XA - Other complications of procedures, not elsewhere classified, initial encounter Status: Chronic (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: Assessment/Problem Details: patient states mesh is present in abdomen Qualifiers: Encounter type: initial encounter Qualified Code(s): T85.79XA - Infection and inflammatory reaction due to other internal prosthetic devices, implants and grafts, initial encounter Code(s): T85.79XA - Infection and inflammatory reaction due to other internal prosthetic devices, implants and grafts, initial encounter Status: Suspected (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 - Fistula of intestine Status: Chronic (4) Obesity: Code(s): E66.9 - Obesity, unspecified Status: Chronic (5) Limited mobility: Code(s): Z74.09 - Other reduced mobility Status: Chronic (6) Requires daily assistance for activities of daily living (ADL) and comfort needs: Code(s): Z74.1 - Need for assistance with personal care Status: Chronic (7) Dementia: Code(s): F03.90 - Unspecified dementia without behavioral disturbance Status: Chronic Time spent with patient Time Spent With Patient (min): 15 Dictated By: Wendy Scott APRN DD/ [id number] Signed By: <Electronically signed by DG Scott> 08/18/21 114[address] [facility] Work Phone: 1(398) 362-627408-16-2021 Progress note Author Wendy Scott [facility] June 23, 2021 11:37am Note Date/Time June 23, 2021 11 :37am [facility] [address] [place] [address] Wound Center Provider Note Signed Patient: Vidhya Giordano MR#: [id number] : 1940 Acct:[id number] Age/Sex: 81 / F Copies to: MD Wendy Verdugo APRN~ HPI Date of Visit Date of Visit: Date of Service: 06/23/2021 Time of Service: 11:35 Narrative HPI: Vidhya is an 81 year old female presenting to [facility] wound care program for a follow up visit with myself for an abdominal ulcer. 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 Her daughter states that she did have mesh removed from the area but that there is still mesh in place and I do wonder if this area will not heal because of the foreign body that is still in place. The patient reports that this area has been opening on and off for the past 3-4 years. She is currently living with her daughter at her home and she has HH in place. I did order Vashe, iodoflex, and bordered foam for bioburden control and to assist in healing. The patient reports that her appetite has been good. Healing of the area will be largely dependent on an adequate diet, compliance with dressing changes, and prevention of infection- it is highly likely that this will never heal given the internal mesh. She can be seen every 8 weeks for maintenance. Subjective Pain Abdomen: Pain Description: Intermittent Pain Intensity: 8 Pain Management Techniques Other/Comment: Hurts when I touch it, and I know it is there Wound/Ulcer History Mode of Arrival/ Residence Hall Director: Family Assistive Device Used Today: Wheelchair Lives with:: Children Appetite Description: Within Normal Limits Who helps w/ dressing change?: Home Health Why Do You Need Help?: Can't Reach Ulcer, Limited mobility, Unsafe leave home byself and Taxing effort to leave home Smoking Status: Former smoker [facility], [facility] Medical History (Updated 01/02/21 @ 15:16 by Nichole Giordano APRN) Alzheimer disease Bipolar disorder Chronic pain Chronic UTI Dementia Gout HBP (high blood pressure) Hyperlipemia Intestinal fistula Major depressive disorder Muscle weakness Neck fracture Skin ulcer of abdomen SOB (shortness of breath) Surgical History H/O: hysterectomy Hx of cholecystectomy Family History Mother Cancer Daughter Cancer Sister Cancer Social History Smoking Status: Former smoker Tobacco Type: cigarettes Substance Use Type: None Grafts History of Graft History of Graft?: No Exam Physical Exam Vital Signs: Temp Pulse Resp BP 98.1 F 78 16 115/75 06/23/21 11:26 06/23/21 11:26 06/23/21 11:26 06/23/21 11:26 Const General: cooperative, comfortable and no acute distress Nutritional Appearance: obese Orientation: alert, awake and oriented x3 Lower/Upper Extremity Exam Vascular Exam-Pulses Left Radial: Pulse Assessment Method: NIBP Objective Meds/Allergies Home Medications albuterol sulfate 90 mcg/actuation aerosol inhaler (ProAir HFA) 2 puff INHALATION Q6HR PRN 12/23/17 [History Confirmed 06/23/21] atenolol 25 mg tablet 12.5 mg PO DAILY 12/23/17 [History Confirmed 06/23/21] buprenorphine 20 mcg/hour weekly transdermal patch 20 mcg/hr TOPICAL QWEEK 12/23/17 [History Confirmed 06/23/21] calcium carbonate 600 mg(1,500 mg)-vitamin D3 800 unit chewable tablet ([id number] plus D) 1 tab PO DAILY 12/23/17 [History Confirmed 06/23/21] chlorpheniramine maleate 4 mg tablet (Chlor-Trimeton) 2 mg PO DAILY 12/23/17 [History Confirmed 06/23/21] donepezil 5 mg tablet 5 mg PO DAILY 12/23/17 [History Confirmed 06/23/21] escitalopram oxalate 20 mg tablet 20 mg PO BID 12/23/17 [History Confirmed 06/23/21] gabapentin 600 mg tablet 800 mg PO DAILY 12/23/17 [History Confirmed 06/23/21] multivitamin (Daily-Justo) 1 tab PO DAILY 12/23/17 [History Confirmed 06/23/21] pantoprazole 40 mg tablet,delayed release 40 mg PO DAILY 12/23/17 [History Confirmed 06/23/21] triamcinolone acetonide 0.1 % topical ointment 1 applic TOPICAL DAILY #30 gm 12/23/17 [Rx Confirmed 06/23/21] acetaminophen 650 mg tablet,extended release 650 mg PO Q4-6H PRN 05/10/19 [History Confirmed 06/23/21] allopurinol 100 mg tablet 100 mg PO DAILY 05/10/19 [History Confirmed 06/23/21] cyanocobalamin (vitamin B-12) 2,500 mcg sublingual tablet (Vitamin B-12) 2,500 mcg SUBLINGUAL DAILY 05/10/19 [History Confirmed 06/23/21] cyclobenzaprine 10 mg tablet 10 mg PO BID PRN 05/10/19 [History Confirmed 06/23/21] lactobacillus combination no.4 3 billion cell capsule (Probiotic) 3,000 mmu cells PO DAILY 05/10/19 [History Confirmed 06/23/21] meclizine 12.5 mg tablet 12.5 mg PO DAILY PRN 05/10/19 [History Confirmed 06/23/21] metformin 500 mg tablet 500 mg PO BID 05/10/19 [History Confirmed 06/23/21] ondansetron 4 mg disintegrating tablet 4 mg PO Q4H PRN 05/10/19 [History Confirmed 06/23/21] polyethylene glycol 3350 17 gram oral powder packet (Miralax) 17 g PO DAILY PRN 05/10/19 [History Confirmed 06/23/21] pravastatin 10 mg tablet 10 mg PO DAILY 05/10/19 [History Confirmed 06/23/21] risperidone 0.25 mg tablet 0.25 mg PO BID 05/10/19 [History Confirmed 06/23/21] spironolactone 25 mg tablet 25 mg PO DAILY 05/10/19 [History Confirmed 06/23/21] Allergies cat dander Allergy (Verified 06/23/21 11:26) Sneezing codeine Allergy (Verified 06/23/21 11:26) Unknown Reaction glycerin Allergy (Verified 06/23/21 11:26) Unknown Reaction latex Allergy (Verified 06/23/21 11:26) Unknown Reaction lidocaine Allergy (Verified 06/23/21 11:26) Unknown Reaction meperidine [From Demerol] Allergy (Verified 06/23/21 11:26) Confusion mold Allergy (Verified 06/23/21 11:26) Sneezing NSAIDS (Non-Steroidal Anti-Inflamma Allergy (Verified 06/23/21 11:26) Rash Sulfa (Sulfonamide Antibiotics) Allergy (Verified 06/23/21 11:26) Rash Wound/Ulcer Abdomen: Type: Surgical Wound (Non-healing surgical wound) Thickness: Full Bed Appearance: Beefy Red and [place] Percent of Wound Bed Granulated/Red: 100 Percent of Devitalized: 0 Length (cm): 0.1 Width (cm): 0.1 Depth (cm): 0.1 CM Sq: 0.010 Surrounding Tissue Appearance: Hyperpigmented Surrounding Tissue Temp: Warm Drainage Amount: Scant Drainage Description: Brown Drainage Odor: No Odor Lidocaine Applied Topically: 2% Jelly Results Height: 5 ft Weight: 73.21 kg Body Mass Index: 31.5 Assessment/Plan Assessment/Plan (1) Surgical wound, non healing: Qualifiers: Encounter type: subsequent encounter Qualified Code(s): T81.89XD - Other complications of procedures, not elsewhere classified, subsequent encounter Code(s): T81.89XA - Other complications of procedures, not elsewhere classified, initial encounter Status: Chronic (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: Assessment/Problem Details: patient states mesh is present in abdomen Qualifiers: Encounter type: initial encounter Qualified Code(s): T85.79XA - Infection and inflammatory reaction due to other internal prosthetic devices, implants and grafts, initial encounter Code(s): T85.79XA - Infection and inflammatory reaction due to other internal prosthetic devices, implants and grafts, initial encounter Status: Suspected (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 - Fistula of intestine Status: Chronic (4) Obesity: Code(s): E66.9 - Obesity, unspecified Status: Chronic (5) Limited mobility: Code(s): Z74.09 - Other reduced mobility Status: Chronic (6) Requires daily assistance for activities of daily living (ADL) and comfort needs: Code(s): Z74.1 - Need for assistance with personal care Status: Chronic (7) Dementia: Code(s): F03.90 - Unspecified dementia without behavioral disturbance Status: Chronic Time spent with patient Time Spent With Patient (min): 15 Dictated By: Wendy Scott APRN DD/ 1135 Signed By: <Electronically signed by DG Scott> 06/23/21 [address] [facility] Work Phone: 1(143) 618-646206-21-2021 Progress note Author Wendy Scott [facility] April 28, 2021 11:22am Note Date/Time April 28, 2021 11:2 2am [facility] [address] [place] [address] Wound Center Provider Note Signed Patient: Vidhya Giordano MR#: [id number] : 1940 Acct:[id number] Age/Sex: 80 / F Copies to: MD Wendy Verdugo APRN~ HPI Date of Visit Date of Visit: Date of Service: 04/28/2021 Time of Service: 11:18 Narrative HPI: Vidhya is an 80 year old female presenting to [facility] wound care program for a follow up visit with myself for an abdominal ulcer. 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 Her daughter states that she did have mesh removed from the area but that there is still mesh in place and I do wonder if this area will not healbecause of the foreign body that is still in place. The patient reports that this area has been opening on and off for the past 3-4 years. She is currently living with her daughter at her home and she has HH in place. I did order Vashe, iodoflex, and bordered foam for bioburden control and to assist in healing. The patient reports that her appetite has been good. Healing of the area will be largely dependent on an adequate diet, compliance with dressing changes, and prevention of infection- it is highly likely that this will never heal given the internal mesh. She can be seen every 8 weeks for maintenance. Subjective Pain Abdomen: Pain Intensity: 0 Wound/Ulcer History Mode of Arrival/ Residence Hall Director: Family Assistive Device Used Today: Wheelchair Lives with:: Children Appetite Description: Within Normal Limits Who helps w/ dressing change?: Home Health Why Do You Need Help?: Can't Reach Ulcer, Limited mobility, Unsafe leave home byself and Taxing effort to leave home Smoking Status: Former smoker [facility], [facility] Medical History (Updated 01/02/21 @ 15:16 by Nichole Giordano APRN) Alzheimer disease Bipolar disorder Chronic pain Chronic UTI Dementia Gout HBP (high blood pressure) Hyperlipemia Intestinal fistula Major depressive disorder Muscle weakness Neck fracture Skin ulcer of abdomen SOB (shortness of breath) Surgical History H/O: hysterectomy Hx of cholecystectomy Family History Mother Cancer Daughter Cancer Sister Cancer Social History Smoking Status: Former smoker Tobacco Type: cigarettes Substance Use Type: None Grafts History of Graft History of Graft?: No Exam Physical Exam Vital Signs: Temp Pulse Resp BP 97.3 F L 74 18 138/75 04/28/21 11:12 04/28/21 11:12 04/28/21 11:12 04/28/21 11:12 Const General: cooperative, comfortable and no acute distress Nutritional Appearance: obese Orientation: alert, awake and oriented x3 Lower/Upper Extremity Exam Vascular Exam-Pulses Left Radial: Pulse Assessment Method: NIBP Objective Meds/Allergies Home Medications albuterol sulfate [ProAir HFA] 2 puff INHALATION Q6HR PRN 12/23/17 [History Confirmed 04/28/21] atenolol 12.5 mg PO DAILY 12/23/17 [History Confirmed 04/28/21] buprenorphine 20 mcg/hr TOPICAL QWEEK 12/23/17 [History Confirmed 04/28/21] calcium carbonate-vitamin D3 [Caltrate 600 + D] 1 tab PO DAILY 12/23/17 [History Confirmed 04/28/21] chlorpheniramine maleate [Chlor-Trimeton] 2 mg PO DAILY 12/23/17 [History Confirmed 04/28/21] donepezil 5 mg PO DAILY 12/23/17 [History Confirmed 04/28/21] escitalopram oxalate 20 mg PO BID 12/23/17 [History Confirmed 04/28/21] gabapentin 800 mg PO DAILY 12/23/17 [History Confirmed 04/28/21] multivitamin [Daily-Justo] 1 tab PO DAILY 12/23/17 [History Confirmed 04/28/21] pantoprazole 40 mg PO DAILY 12/23/17 [History Confirmed 04/28/21] triamcinolone acetonide 1 applic TOPICAL DAILY #30 gm 12/23/17 [Rx Confirmed 04/28/21] acetaminophen 650 mg PO Q4-6H PRN 05/10/19 [History Confirmed 04/28/21] allopurinol 100 mg PO DAILY 05/10/19 [History Confirmed 04/28/21] cyanocobalamin (vitamin B-12) [Vitamin B-12] 2,500 mcg SUBLINGUAL DAILY 05/10/19[History Confirmed 04/28/21] cyclobenzaprine 10 mg PO BID PRN 05/10/19 [History Confirmed 04/28/21] lactobacillus combination no.4 [Probiotic] 3,000 mmu cells PO DAILY 05/10/19 [History Confirmed 04/28/21] meclizine 12.5 mg PO DAILY PRN 05/10/19 [History Confirmed 04/28/21] metformin 500 mg PO BID 05/10/19 [History Confirmed 04/28/21] ondansetron 4 mg PO Q4H PRN 05/10/19 [History Confirmed 04/28/21] polyethylene glycol 3350 [Miralax] 17 g PO DAILY PRN 05/10/19 [History Confirmed 04/28/21] pravastatin 10 mg PO DAILY 05/10/19 [History Confirmed 04/28/21] risperidone 0.25 mg PO BID 05/10/19 [History Confirmed 04/28/21] spironolactone 25 mg PO DAILY 05/10/19 [History Confirmed 04/28/21] ciprofloxacin HCl [Cipro] 500 mg PO BID 03/17/21 [History Confirmed 04/28/21] Allergies cat dander Allergy (Verified 03/17/21 11:23) Sneezing codeine Allergy (Verified 03/17/21 11:23) Unknown Reaction glycerin Allergy (Verified 03/17/21 11:23) Unknown Reaction latex Allergy (Verified 03/17/21 11:23) Unknown Reaction lidocaine Allergy (Verified 03/17/21 11:23) Unknown Reaction meperidine [From Demerol] Allergy (Verified 03/17/21 11:23) Confusion mold Allergy (Verified 03/17/21 11:23) Sneezing NSAIDS (Non-Steroidal Anti-Inflamma Allergy (Verified 03/17/21 11:23) Rash Sulfa (Sulfonamide Antibiotics) Allergy (Verified 03/17/21 11:) Rash Wound/Ulcer Abdomen: Type: Surgical Wound (Non-healing surgical wound) Thickness: Full Bed Appearance: Beefy Red and [place] Percent of Wound Bed Granulated/Red: 100 Percent of Devitalized: 0 Length (cm): 0.1 Width (cm): 0.1 Depth (cm): 0.1 CM Sq: 0.010 Surrounding Tissue Appearance: Hyperpigmented Surrounding Tissue Temp: Warm Drainage Amount: Scant Drainage Description: Brown Drainage Odor: No Odor Results Height: 5 ft Weight: 74.843 kg Body Mass Index: 32.2 Assessment/Plan Assessment/Plan (1) Surgical wound, non healing: Qualifiers: Encounter type: subsequent encounter Qualified Code(s): T81.89XD - Other complications of procedures, not elsewhere classified, subsequent encounter Code(s): T81.89XA - Other complications of procedures, not elsewhere classified, initial encounter Status: Chronic (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: Assessment/Problem Details: patient states mesh is present in abdomen Qualifiers: Encounter type: initial encounter Qualified Code(s): T85.79XA - Infection and inflammatory reaction due to other internal prosthetic devices, implants and grafts, initial encounter Code(s): T85.79XA - Infection and inflammatory reaction due to other internal prosthetic devices, implants and grafts, initial encounter Status: Suspected (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 - Fistula of intestine Status: Chronic (4) Obesity: Code(s): E66.9 - Obesity, unspecified Status: Chronic (5) Limited mobility: Code(s): Z74.09 - Other reduced mobility Status: Chronic (6) Requires daily assistance for activities of daily living (ADL) and comfort needs: Code(s): Z74.1 - Need for assistance with personal care Status: Chronic (7) Dementia: Code(s): F03.90 - Unspecified dementia without behavioral disturbance Status: Chronic Time spent with patient Time Spent With Patient (min): 15 Dictated By: Wendy Scott APRN DD/ 1118 Signed By: <Electronically signed by DG Scott> 04/28/21 [address] [facility] Work Phone: [phone]) 735-344805-10-2021 Progress note Author Wendy Scott [facility] March 17, 2021 11:35am Note Date/Time March 17, 2021 11:35 am [facility] [address] [place] [address] Wound Center Provider Note Signed Patient: Vidhya Giordano MR#: [id number] : 1940 Acct:[id number] Age/Sex: 80 / F Copies to: MD Wendy Verdugo APRN~ HPI Date of Visit Date of Visit: Date of Service: 03/17/2021 Time of Service: 11:31 Narrative HPI: Vidhya is an 80 year old female presenting to [facility] wound care program for a follow up visit with myself for an abdominal ulcer. 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 Her daughter states that she did have mesh removed from the area but that there is still mesh in place and I do wonder if this area will not healbecause of the foreign body that is still in place. The patient reports that this area has been opening on and off for the past 3-4 years. She is currently living with her daughter at her home and she has HH in place. I did order Vashe, iodoflex, and bordered foam for bioburden control and to assist in healing. The patient reports that her appetite has been good. Healing of the area will be largely dependent on an adequate diet, compliance with dressing changes, and prevention of infection- it is highly likely that this will never heal given the internal mesh. She can be seen monthly to every 6-7 weeks for maintenance. Subjective Pain Abdomen: Pain Description: Intermittent Pain Intensity: 0 Pain Management Techniques Other/Comment: Hurts when I touch it, and I know it is there Wound/Ulcer History Mode of Arrival/ Residence Hall Director: Family Assistive Device Used Today: Wheelchair Lives with:: Children Appetite Description: Within Normal Limits Who helps w/ dressing change?: Home Health Why Do You Need Help?: Can't Reach Ulcer, Limited mobility, Unsafe leave home byself and Taxing effort to leave home [facility] Medical History (Updated 01/02/21 @ 15:16 by Nichole Giordano APRN) Alzheimer disease Bipolar disorder Chronic pain Chronic UTI Dementia Gout HBP (high blood pressure) Hyperlipemia Intestinal fistula Major depressive disorder Muscle weakness Neck fracture Skin ulcer of abdomen SOB (shortness of breath) Surgical History H/O: hysterectomy Hx of cholecystectomy Family History Mother Cancer Daughter Cancer Sister Cancer Social History Smoking Status: Former smoker Tobacco Type: cigarettes Substance Use Type: None Grafts History of Graft History of Graft?: No Exam Physical Exam Vital Signs: Temp Pulse Resp BP 97.2 F L 68 18 123/74 03/17/21 11:23 03/17/21 11:23 03/17/21 11:23 03/17/21 11:23 Const General: cooperative, comfortable and no acute distress Nutritional Appearance: obese Orientation: alert, awake and oriented x3 Lower/Upper Extremity Exam Vascular Exam-Pulses Right Radial: Pulse Assessment Method: Palpation Left Radial: Pulse Assessment Method: NIBP Objective Meds/Allergies Home Medications albuterol sulfate [ProAir HFA] 2 puff INHALATION Q6HR PRN 12/23/17 [History Confirmed 03/17/21] atenolol 12.5 mg PO DAILY 12/23/17 [History Confirmed 03/17/21] buprenorphine 20 mcg/hr TOPICAL QWEEK 12/23/17 [History Confirmed 03/17/21] calcium carbonate-vitamin D3 [Caltrate 600 + D] 1 tab PO DAILY 12/23/17 [History Confirmed 03/17/21] chlorpheniramine maleate [Chlor-Trimeton] 2 mg PO DAILY 12/23/17 [History Confirmed 03/17/21] donepezil 5 mg PO DAILY 12/23/17 [History Confirmed 03/17/21] escitalopram oxalate 20 mg PO BID 12/23/17 [History Confirmed 03/17/21] gabapentin 800 mg PO DAILY 12/23/17 [History Confirmed 03/17/21] multivitamin [Daily-Justo] 1 tab PO DAILY 12/23/17 [History Confirmed 03/17/21] pantoprazole 40 mg PO DAILY 12/23/17 [History Confirmed 03/17/21] triamcinolone acetonide 1 applic TOPICAL DAILY #30 gm 12/23/17 [Rx Confirmed 03/17/21] acetaminophen 650 mg PO Q4-6H PRN 05/10/19 [History Confirmed 03/17/21] allopurinol 100 mg PO DAILY 05/10/19 [History Confirmed 03/17/21] cyanocobalamin (vitamin B-12) [Vitamin B-12] 2,500 mcg SUBLINGUAL DAILY 05/10/19[History Confirmed 03/17/21] cyclobenzaprine 10 mg PO BID PRN 05/10/19 [History Confirmed 03/17/21] lactobacillus combination no.4 [Probiotic] 3,000 mmu cells PO DAILY 05/10/19 [History Confirmed 03/17/21] meclizine 12.5 mg PO DAILY PRN 05/10/19 [History Confirmed 03/17/21] metformin 500 mg PO BID 05/10/19 [History Confirmed 03/17/21] ondansetron 4 mg PO Q4H PRN 05/10/19 [History Confirmed 03/17/21] polyethylene glycol 3350 [Miralax] 17 g PO DAILY PRN 05/10/19 [History Confirmed 03/17/21] pravastatin 10 mg PO DAILY 05/10/19 [History Confirmed 03/17/21] risperidone 0.25 mg PO BID 05/10/19 [History Confirmed 03/17/21] spironolactone 25 mg PO DAILY 05/10/19 [History Confirmed 03/17/21] ciprofloxacin HCl [Cipro] 500 mg PO BID 03/17/21 [History Confirmed 03/17/21] Allergies cat dander Allergy (Verified 03/17/21 11:23) Sneezing codeine Allergy (Verified 03/17/21 11:23) Unknown Reaction glycerin Allergy (Verified 03/17/21 11:23) Unknown Reaction latex Allergy (Verified 03/17/21 11:23) Unknown Reaction lidocaine Allergy (Verified 03/17/21 11:23) Unknown Reaction meperidine [From Demerol] Allergy (Verified 03/17/21 11:23) Confusion mold Allergy (Verified 03/17/21 11:23) Sneezing NSAIDS (Non-Steroidal Anti-Inflamma Allergy (Verified 03/17/21 11:23) Rash Sulfa (Sulfonamide Antibiotics) Allergy (Verified 03/17/21 11:23) Rash Wound/Ulcer Abdomen: Type: Surgical Wound (Non-healing surgical wound) Thickness: Full Bed Appearance: Beefy Red and [place] Percent of Wound Bed Granulated/Red: 100 Percent of Devitalized: 0 Length (cm): 0.1 Width (cm): 0.1 Depth (cm): 0.3 CM Sq: 0.010 Surrounding Tissue Appearance: Hyperpigmented Surrounding Tissue Temp: Warm Drainage Amount: Moderate Drainage Description: Brown Drainage Odor: No Odor Results Height: 5 ft Weight: 74.843 kg Body Mass Index: 32.2 Assessment/Plan Assessment/Plan (1) Surgical wound, non healing: Qualifiers: Encounter type: subsequent encounter Qualified Code(s): T81.89XD - Other complications of procedures, not elsewhere classified, subsequent encounter Code(s): T81.89XA - Other complications of procedures, not elsewhere classified, initial encounter Status: Chronic (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: Assessment/Problem Details: patient states mesh is present in abdomen Qualifiers: Encounter type: initial encounter Qualified Code(s): T85.79XA - Infection and inflammatory reaction due to other internal prosthetic devices, implants and grafts, initial encounter Code(s): T85.79XA - Infection and inflammatory reaction due to other internal prosthetic devices, implants and grafts, initial encounter Status: Suspected (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 - Fistula of intestine Status: Chronic (4) Obesity: Code(s): E66.9 - Obesity, unspecified Status: Chronic (5) Limited mobility: Code(s): Z74.09 - Other reduced mobility Status: Chronic (6) Requires daily assistance for activities of daily living (ADL) and comfort needs: Code(s): Z74.1 - Need for assistance with personal care Status: Chronic (7) Dementia: Code(s): F03.90 - Unspecified dementia without behavioral disturbance Status: Chronic Time spent with patient Time Spent With Patient (min): 15 Dictated By: Wendy Scott APRN DD/ 30 Signed By: <Electronically signed by DG Scott> 03/17/21 113[address] [facility] Work Phone: 1(242) 531-680203-17-2021 Progress note Author Wendy Scott [facility] January 22, 2021 1:13pm Note Date/Time January 22, 2021 1:1 3pm [facility] [address] [place] [address] Wound Center Provider Note Signed Patient: Vidhya Giordano MR#: [id number] : 1940 Acct:[id number] Age/Sex: 80 / F Copies to: MD Wendy Verdugo APRN~ HPI Date of Visit Date of Visit: Date of Service: 01/22/2021 Time of Service: 13:11 Narrative HPI: Vidhya is an 80 year old female presenting to [facility] wound care program for a follow up visit with myself for an abdominal ulcer. 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 Her daughter states that she did have mesh removed from the area but that there is still mesh in place and I do wonder if this area will not healbecause of the foreign body that is still in place. The patient reports that this area has been opening on and off for the past 3-4 years. She is currently living with her daughter at her home and she has HH in place. I did order Vashe, collagen silver, and bordered foam for bioburden control and to assist inhealing. The patient reports that her appetite has been good. Healing of the area will be largely dependent on an adequate diet, compliance with dressing changes, and prevention of infection- it is highly likely that this will never heal given the internal mesh. She can be seen monthly to every 6 weeks for maintenance. Subjective Pain Abdomen: Pain Description: Intermittent Pain Intensity: 0 Pain Management Techniques Other/Comment: Hurts when I touch it, and I know it is there Wound/Ulcer History Mode of Arrival/ Residence Hall Director: Family Assistive Device Used Today: Wheelchair Lives with:: Children Appetite Description: Within Normal Limits Who helps w/ dressing change?: Home Health Why Do You Need Help?: Can't Reach Ulcer, Limited mobility, Unsafe leave home byself and Taxing effort to leave home Smoking Status: Former smoker [facility], [facility] Medical History (Updated 01/02/21 @ 15:16 by Nichole Giordano APRN) Alzheimer disease Bipolar disorder Chronic pain Chronic UTI Dementia Gout HBP (high blood pressure) Hyperlipemia Intestinal fistula Major depressive disorder Muscle weakness Neck fracture Skin ulcer of abdomen SOB (shortness of breath) Surgical History H/O: hysterectomy Hx of cholecystectomy Family History Mother Cancer Daughter Cancer Sister Cancer Social History Smoking Status: Former smoker Tobacco Type: cigarettes Substance Use Type: None Grafts History of Graft History of Graft?: No Exam Physical Exam Vital Signs: Temp Pulse Resp BP 97.3 F L 70 18 142/79 H 01/22/21 13:04 01/22/21 13:04 01/22/21 13:04 01/22/21 13:04 Const General: cooperative, comfortable and no acute distress Nutritional Appearance: obese Orientation: alert, awake and oriented x3 Lower/Upper Extremity Exam Vascular Exam-Pulses Right Radial: Pulse Assessment Method: Palpation Objective Meds/Allergies Home Medications albuterol sulfate [ProAir HFA] 2 puff INHALATION Q6HR PRN 12/23/17 [History Confirmed 11/14/20] atenolol 12.5 mg PO DAILY 12/23/17 [History Confirmed 11/14/20] buprenorphine 20 mcg/hr TOPICAL QWEEK 12/23/17 [History Confirmed 11/14/20] calcium carbonate-vitamin D3 [Caltrate 600 + D] 1 tab PO DAILY 12/23/17 [History Confirmed 11/14/20] chlorpheniramine maleate [Chlor-Trimeton] 2 mg PO DAILY 12/23/17 [History Confirmed 11/14/20] donepezil 5 mg PO DAILY 12/23/17 [History Confirmed 11/14/20] escitalopram oxalate 20 mg PO BID 12/23/17 [History Confirmed 11/14/20] gabapentin 800 mg PO DAILY 12/23/17 [History Confirmed 11/14/20] multivitamin [Daily-Justo] 1 tab PO DAILY 12/23/17 [History Confirmed 11/14/20] pantoprazole 40 mg PO DAILY 12/23/17 [History Confirmed 11/14/20] triamcinolone acetonide 1 applic TOPICAL DAILY #30 gm 12/23/17 [Rx Confirmed 11/14/20] acetaminophen 650 mg PO Q4-6H PRN 05/10/19 [History Confirmed 11/14/20] allopurinol 100 mg PO DAILY 05/10/19 [History Confirmed 11/14/20] cyanocobalamin (vitamin B-12) [Vitamin B-12] 2,500 mcg SUBLINGUAL DAILY 05/10/19[History Confirmed 11/14/20] cyclobenzaprine 10 mg PO BID PRN 05/10/19 [History Confirmed 11/14/20] lactobacillus combination no.4 [Probiotic] 3,000 mmu cells PO DAILY 05/10/19 [History Confirmed 11/14/20] meclizine 12.5 mg PO DAILY PRN 05/10/19 [History Confirmed 11/14/20] metformin 500 mg PO BID 05/10/19 [History Confirmed 11/14/20] ondansetron 4 mg PO Q4H PRN 05/10/19 [History Confirmed 11/14/20] polyethylene glycol 3350 [Miralax] 17 g PO DAILY PRN 05/10/19 [History Confirmed 11/14/20] pravastatin 10 mg PO DAILY 05/10/19 [History Confirmed 11/14/20] risperidone 0.25 mg PO BID 05/10/19 [History Confirmed 11/14/20] spironolactone 25 mg PO DAILY 05/10/19 [History Confirmed 11/14/20] Allergies cat dander Allergy (Verified 11/14/20 07:56) Sneezing codeine Allergy (Verified 11/14/20 07:56) Unknown Reaction glycerin Allergy (Verified 11/14/20 07:56) Unknown Reaction latex Allergy (Verified 11/14/20 07:56) Unknown Reaction lidocaine Allergy (Verified 11/14/20 07:56) Unknown Reaction meperidine [From Demerol] Allergy (Verified 11/14/20 07:56) Confusion mold Allergy (Verified 11/14/20 07:56) Sneezing NSAIDS (Non-Steroidal Anti-Inflamma Allergy (Verified 11/14/20 07:56) Rash Sulfa (Sulfonamide Antibiotics) Allergy (Verified 11/14/20 07:56) Rash Wound/Ulcer Abdomen: Type: Surgical Wound (Non-healing surgical wound) Thickness: Full Bed Appearance: Beefy Red and [place] Percent of Wound Bed Granulated/Red: 100 Percent of Devitalized: 0 Length (cm): 0.2 Width (cm): 0.3 Depth (cm): 0.3 CM Sq: 0.060 Surrounding Tissue Appearance: Hyperpigmented Surrounding Tissue Temp: Warm Drainage Amount: Moderate Drainage Description: Serosanguineous Drainage Odor: No Odor Results Height: 5 ft Weight: 74.843 kg Body Mass Index: 32.2 Assessment/Plan Assessment/Plan (1) Surgical wound, non healing: Qualifiers: Encounter type: subsequent encounter Qualified Code(s): T81.89XD - Other complications of procedures, not elsewhere classified, subsequent encounter Code(s): T81.89XA - Other complications of procedures, not elsewhere classified, initial encounter Status: Chronic (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: Assessment/Problem Details: patient states mesh is present in abdomen Qualifiers: Encounter type: initial encounter Qualified Code(s): T85.79XA - Infection and inflammatory reaction due to other internal prosthetic devices, implants and grafts, initial encounter Code(s): T85.79XA - Infection and inflammatory reaction due to other internal prosthetic devices, implants and grafts, initial encounter Status: Suspected (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 - Fistula of intestine Status: Chronic (4) Obesity: Code(s): E66.9 - Obesity, unspecified Status: Chronic (5) Limited mobility: Code(s): Z74.09 - Other reduced mobility Status: Chronic (6) Requires daily assistance for activities of daily living (ADL) and comfort needs: Code(s): Z74.1 - Need for assistance with personal care Status: Chronic (7) Dementia: Code(s): F03.90 - Unspecified dementia without behavioral disturbance Status: Chronic Time spent with patient Time Spent With Patient (min): 15 Dictated By: Wendy Scott APRN DD/ 10 Signed By: <Electronically signed by DG Scott> 01/22/211312 [facility] Work Phone: 1(445) 545-911102-25-2021 Progress note Author Nichole Giordano [facility] January 02, 2021 3:18pm Note Date/Time January 02, 2021 3:15pm [facility] [address] [place] [address] Wound Center Provider Note Signed Patient: Vidhya Giordano MR#: [id number] : 1940 Acct:[id number] Age/Sex: 80 / F Copies to: MD Nichole Verdugo APRN~ HPI Date of Visit Date of Visit: Date of Service: 01/02/2021 Time of Service: 15:14 Narrative HPI: Vidhya is an 80 year old female presenting to [facility] wound care program for an initial visit with myself but a follow up visit to the office for an abdominal ulcer. I am very familiar with Vidhya, as she has been a patient of ours in the past for the same area and at that time it was a fistula but she hassince had surgery to repair the fistula. Her daughter states that she did have mesh removed from the area but that there is still mesh in place and I do wonderif this area will not heal because of the foreign body that is still in place. The patient reports that this area has been opening on and off for the past 3-4 years. She is currently living with her daughter at her home and she has HH in place. The wound did have some improvement today. The patient did previously have a fungal rash that is resolved at today's visit. I did continue the currentorders of Vashe, iodoflex, and bordered foam for bioburden control and to assistin healing. The patient reports that her appetite has been good. Healing of the area will be largely dependent on an adequate diet, compliance with dressingchanges, and prevention of infection- it is highly likely that this will never heal given the internal mesh. She can be seen monthly to every 6 weeks for maintenance. Subjective Pain Abdomen: Pain Description: Intermittent Pain Intensity: 0 Pain Management Techniques Other/Comment: Hurts when I touch it, and I know it is there Wound/Ulcer History Mode of Arrival/ Residence Hall Director: Family Assistive Device Used Today: Wheelchair Lives with:: Children Appetite Description: Within Normal Limits Who helps w/ dressing change?: Home Health Why Do You Need Help?: Can't Reach Ulcer, Limited mobility, Unsafe leave home byself and Taxing effort to leave home Smoking Status: Former smoker [facility], [facility] Medical History (Updated 01/02/21 @ 15:16 by Nichole Giordano APRN) Alzheimer disease Bipolar disorder Chronic pain Chronic UTI Dementia Gout HBP (high blood pressure) Hyperlipemia Intestinal fistula Major depressive disorder Muscle weakness Neck fracture Skin ulcer of abdomen SOB (shortness of breath) Surgical History H/O: hysterectomy Hx of cholecystectomy Family History Mother Cancer Daughter Cancer Sister Cancer Social History Smoking Status: Former smoker Tobacco Type: cigarettes Substance Use Type: None Grafts History of Graft History of Graft?: No Exam Physical Exam Vital Signs: Temp Pulse Resp BP 96.1 F L 67 18 108/71 01/02/21 15:10 01/02/21 15:10 01/02/21 15:10 01/02/21 15:10 Const General: cooperative, no acute distress and well groomed Nutritional Appearance: average body habitus and obese Orientation: alert and oriented x3 Lower/Upper Extremity Exam Vascular Exam-Pulses Right Radial: Pulse Assessment Method: Diagnostic Monitor Left Radial: Pulse Assessment Method: Palpation Objective Meds/Allergies Home Medications albuterol sulfate [ProAir HFA] 2 puff INHALATION Q6HR PRN 12/23/17 [History Confirmed 11/14/20] atenolol 12.5 mg PO DAILY 12/23/17 [History Confirmed 11/14/20] buprenorphine 20 mcg/hr TOPICAL QWEEK 12/23/17 [History Confirmed 11/14/20] calcium carbonate-vitamin D3 [Caltrate 600 + D] 1 tab PO DAILY 12/23/17 [History Confirmed 11/14/20] chlorpheniramine maleate [Chlor-Trimeton] 2 mg PO DAILY 12/23/17 [History Confirmed 11/14/20] donepezil 5 mg PO DAILY 12/23/17 [History Confirmed 11/14/20] escitalopram oxalate 20 mg PO BID 12/23/17 [History Confirmed 11/14/20] gabapentin 800 mg PO DAILY 12/23/17 [History Confirmed 11/14/20] multivitamin [Daily-Justo] 1 tab PO DAILY 12/23/17 [History Confirmed 11/14/20] pantoprazole 40 mg PO DAILY 12/23/17 [History Confirmed 11/14/20] triamcinolone acetonide 1 applic TOPICAL DAILY #30 gm 12/23/17 [Rx Confirmed 11/14/20] acetaminophen 650 mg PO Q4-6H PRN 05/10/19 [History Confirmed 11/14/20] allopurinol 100 mg PO DAILY 05/10/19 [History Confirmed 11/14/20] cyanocobalamin (vitamin B-12) [Vitamin B-12] 2,500 mcg SUBLINGUAL DAILY 05/10/19[History Confirmed 11/14/20] cyclobenzaprine 10 mg PO BID PRN 05/10/19 [History Confirmed 11/14/20] lactobacillus combination no.4 [Probiotic] 3,000 mmu cells PO DAILY 05/10/19 [History Confirmed 11/14/20] meclizine 12.5 mg PO DAILY PRN 05/10/19 [History Confirmed 11/14/20] metformin 500 mg PO BID 05/10/19 [History Confirmed 11/14/20] ondansetron 4 mg PO Q4H PRN 05/10/19 [History Confirmed 11/14/20] polyethylene glycol 3350 [Miralax] 17 g PO DAILY PRN 05/10/19 [History Confirmed 11/14/20] pravastatin 10 mg PO DAILY 05/10/19 [History Confirmed 11/14/20] risperidone 0.25 mg PO BID 05/10/19 [History Confirmed 11/14/20] spironolactone 25 mg PO DAILY 05/10/19 [History Confirmed 11/14/20] Allergies cat dander Allergy (Verified 11/14/20 07:56) Sneezing codeine Allergy (Verified 11/14/20 07:56) Unknown Reaction glycerin Allergy (Verified 11/14/20 07:56) Unknown Reaction latex Allergy (Verified 11/14/20 07:56) Unknown Reaction lidocaine Allergy (Verified 11/14/20 07:56) Unknown Reaction meperidine [From Demerol] Allergy (Verified 11/14/20 07:56) Confusion mold Allergy (Verified 11/14/20 07:56) Sneezing NSAIDS (Non-Steroidal Anti-Inflamma Allergy (Verified 11/14/20 07:56) Rash Sulfa (Sulfonamide Antibiotics) Allergy (Verified 11/14/20 07:56) Rash Wound/Ulcer Abdomen: Type: Surgical Wound (Non-healing surgical wound) Thickness: Full Bed Appearance: Beefy Red and [place] Percent of Wound Bed Granulated/Red: 100 Percent of Devitalized: 0 Length (cm): 0.2 Width (cm): 0.3 Depth (cm): 0.3 CM Sq: 0.060 Surrounding Tissue Appearance: Hyperpigmented Surrounding Tissue Temp: Warm Drainage Amount: Moderate Drainage Description: Serosanguineous Drainage Odor: No Odor Results Height: 5 ft Weight: 74.843 kg Body Mass Index: 32.2 Assessment/Plan Assessment/Plan (1) Candidiasis: Assessment/Problem Details: periwound skin abdomen at 11/14 visit Code(s): B37.9 - Candidiasis, unspecified Status: Resolved (2) Surgical wound, non healing: Qualifiers: Encounter type: subsequent encounter Qualified Code(s): T81.89XD - Other complications of procedures, not elsewhere classified, subsequent encounter Code(s): T81.89XA - Other complications of procedures, not elsewhere classified, initial encounter Status: Chronic (3) Infected prosthetic mesh of abdominal wall: Assessment/Problem Details: patient states mesh is present in abdomen Qualifiers: Encounter type: initial encounter Qualified Code(s): T85.79XA - Infection and inflammatory reaction due to other internal prosthetic devices, implants and grafts, initial encounter Code(s): T85.79XA - Infection and inflammatory reaction due to other internal prosthetic devices, implants and grafts, initial encounter Status: Suspected (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 - Fistula of intestine Status: Chronic (5) Obesity: Code(s): E66.9 - Obesity, unspecified Status: Chronic (6) Limited mobility: Code(s): Z74.09 - Other reduced mobility Status: Chronic (7) Requires daily assistance for activities of daily living (ADL) and comfort needs: Code(s): Z74.1 - Need for assistance with personal care Status: Chronic (8) Dementia: Code(s): F03.90 - Unspecified dementia without behavioral disturbance Status: Chronic Time spent with patient Time Spent With Patient (min): 20 Dictated By: Nichole Giordano APRN DD/ 13 Signed By: <Electronically signed by DG Giordano> 01/02/21 1518 [facility] Work Phone: 1(624) 997-772501-07-2021 Progress note Author Wendy Scott [facility] November 14, 2020 8:16am Note Date/Time November 14, 2020 8: 16am [facility] [address] [place] [address] Wound Center Provider Note Signed Patient: Vidhya Giordano MR#: [id number] : 1940 Acct:[id number] Age/Sex: 80 / F Copies to: MD Wendy Verdugo APRN~ HPI Date of Visit Date of Visit: Date of Service: 11/14/2020 Time of Service: 08:14 Narrative HPI: Vidhya is an 80 year old female presenting to [facility] wound care program for a follow up visit with myself for an abdominal ulcer. 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 Her daughter states that she did have mesh removed from the area but that there is still mesh in place and I do wonder if this area will not healbecause of the foreign body that is still in place. The patient reports that this area has been opening on and off for the past 3-4 years. She is currently living with her daughter at her home and she has HH in place. I did order Vashe, iodoflex, and bordered foam for bioburden control and to assist in healing. The patient reports that her appetite has been good. Healing of the area will be largely dependent on an adequate diet, compliance with dressing changes, and prevention of infection- it is highly likely that this will never heal given the internal mesh. She can be seen monthly to every 6 weeks for maintenance. She has a fungal rash so this was addressed today and nystatin was ordered and dressing orders were adjusted as well. Subjective Pain Abdomen: Pain Intensity: 0 Pain Management Techniques Other/Comment: Hurts when I touch it, and I know it is there Wound/Ulcer History Mode of Arrival/ Residence Hall Director: Family Assistive Device Used Today: Wheelchair Lives with:: Children Appetite Description: Within Normal Limits Who helps w/ dressing change?: Home Health Why Do You Need Help?: Can't Reach Ulcer, Limited mobility, Unsafe leave home byself and Taxing effort to leave home Smoking Status: Former smoker [facility], [facility] Medical History (Updated 11/14/20 @ 08:16 by Wendy Scott APRN) Alzheimer disease Bipolar disorder Chronic pain Chronic UTI Dementia Gout HBP (high blood pressure) Hyperlipemia Intestinal fistula Major depressive disorder Muscle weakness Neck fracture Skin ulcer of abdomen SOB (shortness of breath) Surgical History H/O: hysterectomy Hx of cholecystectomy Family History Mother Cancer Daughter Cancer Sister Cancer Social History Smoking Status: Former smoker Tobacco Type: cigarettes Substance Use Type: None Grafts History of Graft History of Graft?: No Exam Physical Exam Vital Signs: Temp Pulse Resp BP 98.1 F 76 16 120/70 11/14/20 07:57 11/14/20 07:57 11/14/20 07:57 11/14/20 07:57 Const General: cooperative, comfortable and no acute distress Nutritional Appearance: obese Orientation: alert, awake and oriented x3 Lower/Upper Extremity Exam Vascular Exam-Pulses Left Radial: Pulse Assessment Method: Palpation Objective Meds/Allergies Home Medications albuterol sulfate [ProAir HFA] 2 puff INHALATION Q6HR PRN 12/23/17 [History Confirmed 11/14/20] atenolol 12.5 mg PO DAILY 12/23/17 [History Confirmed 11/14/20] buprenorphine 20 mcg/hr TOPICAL QWEEK 12/23/17 [History Confirmed 11/14/20] calcium carbonate-vitamin D3 [Caltrate 600 + D] 1 tab PO DAILY 12/23/17 [History Confirmed 11/14/20] chlorpheniramine maleate [Chlor-Trimeton] 2 mg PO DAILY 12/23/17 [History Confirmed 11/14/20] donepezil 5 mg PO DAILY 12/23/17 [History Confirmed 11/14/20] escitalopram oxalate 20 mg PO BID 12/23/17 [History Confirmed 11/14/20] gabapentin 800 mg PO DAILY 12/23/17 [History Confirmed 11/14/20] multivitamin [Daily-Justo] 1 tab PO DAILY 12/23/17 [History Confirmed 11/14/20] pantoprazole 40 mg PO DAILY 12/23/17 [History Confirmed 11/14/20] triamcinolone acetonide 1 applic TOPICAL DAILY #30 gm 12/23/17 [Rx Confirmed 11/14/20] acetaminophen 650 mg PO Q4-6H PRN 05/10/19 [History Confirmed 11/14/20] allopurinol 100 mg PO DAILY 05/10/19 [History Confirmed 11/14/20] cyanocobalamin (vitamin B-12) [Vitamin B-12] 2,500 mcg SUBLINGUAL DAILY 05/10/19[History Confirmed 11/14/20] cyclobenzaprine 10 mg PO BID PRN 05/10/19 [History Confirmed 11/14/20] lactobacillus combination no.4 [Probiotic] 3,000 mmu cells PO DAILY 05/10/19 [History Confirmed 11/14/20] meclizine 12.5 mg PO DAILY PRN 05/10/19 [History Confirmed 11/14/20] metformin 500 mg PO BID 05/10/19 [History Confirmed 11/14/20] ondansetron 4 mg PO Q4H PRN 05/10/19 [History Confirmed 11/14/20] polyethylene glycol 3350 [Miralax] 17 g PO DAILY PRN 05/10/19 [History Confirmed 11/14/20] pravastatin 10 mg PO DAILY 05/10/19 [History Confirmed 11/14/20] risperidone 0.25 mg PO BID 05/10/19 [History Confirmed 11/14/20] spironolactone 25 mg PO DAILY 05/10/19 [History Confirmed 11/14/20] Allergies cat dander Allergy (Verified 11/14/20 07:56) Sneezing codeine Allergy (Verified 11/14/20 07:56) Unknown Reaction glycerin Allergy (Verified 11/14/20 07:56) Unknown Reaction latex Allergy (Verified 11/14/20 07:56) Unknown Reaction lidocaine Allergy (Verified 11/14/20 07:56) Unknown Reaction meperidine [From Demerol] Allergy (Verified 11/14/20 07:56) Confusion mold Allergy (Verified 11/14/20 07:56) Sneezing NSAIDS (Non-Steroidal Anti-Inflamma Allergy (Verified 11/14/20 07:56) Rash Sulfa (Sulfonamide Antibiotics) Allergy (Verified 11/14/20 07:56) Rash Wound/Ulcer Abdomen: Bed Appearance: Beefy Red and [place] Percent of Wound Bed Granulated/Red: 100 Percent of Devitalized: 0 Length (cm): 0.6 Width (cm): 0.6 Depth (cm): 0.5 CM Sq: 0.360 Surrounding Tissue Appearance: Hyperpigmented Surrounding Tissue Temp: Warm Drainage Amount: Moderate Drainage Description: Serosanguineous Drainage Odor: No Odor Results Height: 5 ft Weight: 74.843 kg Body Mass Index: 32.2 Assessment/Plan Assessment/Plan (1) Candidiasis: Assessment/Problem Details: periwound skin abdomen at 11/14 visit Code(s): B37.9 - Candidiasis, unspecified Status: Acute (2) Surgical wound, non healing: Qualifiers: Encounter type: subsequent encounter Qualified Code(s): T81.89XD - Other complications of procedures, not elsewhere classified, subsequent encounter Code(s): T81.89XA - Other complications of procedures, not elsewhere classified, initial encounter Status: Chronic (3) Infected prosthetic mesh of abdominal wall: Assessment/Problem Details: patient states mesh is present in abdomen Qualifiers: Encounter type: initial encounter Qualified Code(s): T85.79XA - Infection and inflammatory reaction due to other internal prosthetic devices, implants and grafts, initial encounter Code(s): T85.79XA - Infection and inflammatory reaction due to other internal prosthetic devices, implants and grafts, initial encounter Status: Suspected (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 - Fistula of intestine Status: Chronic (5) Obesity: Code(s): E66.9 - Obesity, unspecified Status: Chronic (6) Limited mobility: Code(s): Z74.09 - Other reduced mobility Status: Chronic (7) Requires daily assistance for activities of daily living (ADL) and comfort needs: Code(s): Z74.1 - Need for assistance with personal care Status: Chronic (8) Dementia: Code(s): F03.90 - Unspecified dementia without behavioral disturbance Status: Chronic Time spent with patient Time Spent With Patient (min): 15 Dictated By: Wendy Scott APRN DD/ 3 Signed By: <Electronically signed by DG Scott> 11/14/20815 [facility] Work Phone: [phone] 592-240912-10-2020 Progress note Author Wendy Scott [facility] October 17, 2020 8:39am Note Date/Time October 17, 2020 8:35am [facility] [address] [place] [address] Wound Center Provider Note Signed Patient: Vidhya Giordano MR#: [id number] : 1940 Acct:[id number] Age/Sex: 80 / F Copies to: MD Wendy Verdugo APRN~ HPI Date of Visit Date of Visit: Date of Service: 10/17/2020 Time of Service: 08:32 Narrative HPI: Vidhya is an 80 year old female presenting to [facility] wound care program for an initial visit with myself for an abdominal ulcer. 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 Her daughter states that she did have mesh removed from the area but that there is still mesh in place and I do wonder if this area will not healbecause of the foreign body that is still in place. The patient reports that this area has been opening on and off for the past 3-4 years. She is currently living with her daughter at her home and she has HH in place. I did order Vashe, iodoflex coated nugauze, and bordered foam for bioburden control and to assist in healing. The patient reports that her appetite has been good. Healing of the area will be largely dependent on an adequate diet, compliance with dressing changes, and prevention of infection- it is highly likely that this will never heal given the internal mesh. She can be seen monthly to every 6weeks for maintenance. Subjective Pain Abdomen: Pain Management Techniques Other/Comment: Hurts when I touch it, and I know it is there Wound/Ulcer History Mode of Arrival/ Residence Hall Director: Family Assistive Device Used Today: Wheelchair Lives with:: Children Appetite Description: Within Normal Limits Who helps w/ dressing change?: Home Health Why Do You Need Help?: Can't Reach Ulcer, Limited mobility, Unsafe leave home byself and Taxing effort to leave home Smoking Status: Former smoker [facility] Medical History (Updated 10/17/20 @ 08:34 by Wendy Scott APRN) Alzheimer disease (Chronic) Bipolar disorder (Chronic) Chronic pain (Chronic) Chronic UTI (Chronic) Dementia (Chronic) Gout (Chronic) HBP (high blood pressure) (Chronic) Hyperlipemia (Chronic) Intestinal fistula (Chronic) Major depressive disorder (Chronic) Muscle weakness (Chronic) Neck fracture (Chronic) Skin ulcer of abdomen (Acute) SOB (shortness of breath) (Chronic) Surgical History H/O: hysterectomy (Acute) Hx of cholecystectomy (Acute) Family History Mother Cancer Daughter Cancer Sister Cancer Social History Smoking Status: Former smoker Tobacco Type: cigarettes Substance Use Type: None Grafts History of Graft History of Graft?: No Exam Physical Exam Vital Signs: Temp Pulse Resp BP 97.7 F 68 18 122/62 10/17/20 08:16 10/17/20 08:16 10/17/20 08:16 10/17/20 08:16 Const General: cooperative, comfortable and no acute distress Nutritional Appearance: obese Orientation: alert, awake and oriented x3 Lower/Upper Extremity Exam Vascular Exam-Pulses Right Radial: Pulse Assessment Method: Palpation Objective Meds/Allergies Home Medications albuterol sulfate [ProAir HFA] 2 puff INHALATION Q6HR PRN 12/23/17 [History Confirmed 10/17/20] atenolol 12.5 mg PO DAILY 12/23/17 [History Confirmed 10/17/20] buprenorphine 20 mcg/hr TOPICAL QWEEK 12/23/17 [History Confirmed 10/17/20] calcium carbonate-vitamin D3 [Caltrate 600 + D] 1 tab PO DAILY 12/23/17 [History Confirmed 10/17/20] chlorpheniramine maleate [Chlor-Trimeton] 2 mg PO DAILY 12/23/17 [History Confirmed 10/17/20] donepezil 5 mg PO DAILY 12/23/17 [History Confirmed 10/17/20] escitalopram oxalate 20 mg PO BID 12/23/17 [History Confirmed 10/17/20] gabapentin 800 mg PO DAILY 12/23/17 [History Confirmed 10/17/20] multivitamin [Daily-Justo] 1 tab PO DAILY 12/23/17 [History Confirmed 10/17/20] pantoprazole 40 mg PO DAILY 12/23/17 [History Confirmed 10/17/20] triamcinolone acetonide 1 applic TOPICAL DAILY #30 gm 12/23/17 [Rx Confirmed 10/17/20] acetaminophen 650 mg PO Q4-6H PRN 05/10/19 [History Confirmed 10/17/20] acetaminophen 650 mg UT Q6H PRN 05/10/19 [History Confirmed 10/17/20] allopurinol 100 mg PO DAILY 05/10/19 [History Confirmed 10/17/20] cyanocobalamin (vitamin B-12) [Vitamin B-12] 2,500 mcg SUBLINGUAL DAILY 05/10/19[History Confirmed 10/17/20] cyclobenzaprine 10 mg PO BID PRN 05/10/19 [History Confirmed 10/17/20] lactobacillus combination no.4 [Probiotic] 3,000 mmu cells PO DAILY 05/10/19 [History Confirmed 10/17/20] meclizine 12.5 mg PO DAILY PRN 05/10/19 [History Confirmed 10/17/20] metformin 500 mg PO BID 05/10/19 [History Confirmed 10/17/20] ondansetron 4 mg PO Q4H PRN 05/10/19 [History Confirmed 10/17/20] polyethylene glycol 3350 [Miralax] 17 g PO DAILY PRN 05/10/19 [History Confirmed 10/17/20] pravastatin 10 mg PO DAILY 05/10/19 [History Confirmed 10/17/20] risperidone 0.25 mg PO BID 05/10/19 [History Confirmed 10/17/20] spironolactone 25 mg PO DAILY 05/10/19 [History Confirmed 10/17/20] Allergies cat dander Allergy (Verified 07/12/20 14:02) Sneezing codeine Allergy (Verified 07/12/20 14:02) Unknown Reaction glycerin Allergy (Verified 07/12/20 14:02) Unknown Reaction latex Allergy (Verified 07/12/20 14:02) Unknown Reaction lidocaine Allergy (Verified 07/12/20 14:02) Unknown Reaction meperidine [From Demerol] Allergy (Verified 07/12/20 14:02) Confusion mold Allergy (Verified 07/12/20 14:02) Sneezing NSAIDS (Non-Steroidal Anti-Inflamma Allergy (Verified 07/12/20 14:02) Rash Sulfa (Sulfonamide Antibiotics) Allergy (Verified 07/12/20 14:02) Rash Wound/Ulcer Abdomen: Bed Appearance: Beefy Red, [place] and Hypergranulation Percent of Wound Bed Granulated/Red: 100 Percent of Devitalized: 0 Length (cm): 0.5 Width (cm): 0.5 Depth (cm): 0.5 CM Sq: 0.250 Surrounding Tissue Appearance: Hyperpigmented Surrounding Tissue Temp: Warm Drainage Amount: Scant Drainage Description: Serosanguineous Drainage Odor: No Odor Chemical Cauterization: Chem Caut-Hypergranulation Procedures Time Out: 2 Patient Identifiers, Correct Patient, Correct Side/Site, Correct Procedure and Safety Issues Reviewed Procedure: Silver nitrate was used to knock down some rolled edges as well as help with hyper granulated tissue. She tolerated this well without pain. Results Height: 5 ft Weight: 74.843 kg Body Mass Index: 32.2 Assessment/Plan Assessment/Plan (1) Surgical wound, non healing: Qualifiers: Encounter type: initial encounter Qualified Code(s): T81.89XA - Other complications of procedures, not elsewhere classified, initial encounter Code(s): T81.89XA - Other complications of procedures, not elsewhere classified, initial encounter Status: Chronic (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: Assessment/Problem Details: patient states mesh is present in abdomen Qualifiers: Encounter type: initial encounter Qualified Code(s): T85.79XA - Infection and inflammatory reaction due to other internal prosthetic devices, implants and grafts, initial encounter Code(s): T85.79XA - Infection and inflammatory reaction due to other internal prosthetic devices, implants and grafts, initial encounter Status: Suspected (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 - Fistula of intestine Status: Chronic (4) Obesity: Code(s): E66.9 - Obesity, unspecified Status: Chronic (5) Limited mobility: Code(s): Z74.09 - Other reduced mobility Status: Chronic (6) Requires daily assistance for activities of daily living (ADL) and comfort needs: Code(s): Z74.1 - Need for assistance with personal care Status: Chronic (7) Dementia: Code(s): F03.90 - Unspecified dementia without behavioral disturbance Status: Chronic Time spent with patient Time Spent With Patient (min): 20 Dictated By: Wendy Scott APRN DD/ 0832 Signed By: <Electronically signed by DG Scott> 10/17/20 0839 [facility] Work Phone: Evaluation note* Diagnosis Bilateral impacted cerumen- Primary Impacted cerumen documented in this encounter [facility] Diagnosis Onset Date Resolution Status Dementia chronic Gastrointestinal fistula chr onic Inflammation chronic Limited mobility chronic Obesity chronic [id number] chronic Surgical wound, non healing chronic Candidiasis resolved [facility] Work Phone: Evaluation noteNo assessment information available [facility] Work Phone: Summary Purpose Family History No Family History Records Found Relationship Condition Age at Onset Recorded Date/T scott mother Malignant neoplasm Unknown daughter Malignant neoplasm Unknown sister Malignant neoplasm Unknown Advance Directives No Advanced Directives Records Found Advance Directive Response Recorded Date/ Time Advance Directives No December 11:26am Hospital Course Note MR[id number] [facility] Vidhya Giordano Admitted: 06/27/2018 Discharged: 07/19/2018 Date of : 1940 Physician: Meg Abebe M.D. DISCHARGE SUMMARYDISCHARGE ATTENDING: Jianlin Abebe, M.D.PRINCIPAL DIAGNOSIS: Enterocutaneous fistula.SECONDARY DIAGNOSES: Depression, hypertension, diabetes mellitus,neuropathy.PROCEDURES PERFORMED AND TREATMENT RENDERED: The patient is a [id number] with a history of ventral hernia repair. [...] 6 daysstatus p (more content not included)... Chief Complaint and Reason for Visit Chief Complaint Open Wound - new wou nd Reason for Visit Dementia Gastrointestinal fistula Inflammation Limited mobility Obesity [id number] Surgical wound, non healing Candidiasis Chief Complaint Admit Date Unknown March 07, 2025 7:3 6am Additional Source Comments INFORMATION SOURCE (unrecogn ized section and content) DATE CREATED AUTHOR [facility]02[facility]2018 [facility] DATE CREATED AUTHOR AUTHOR'S ORGANIZ ATION 10/02/2018 [facility] DATE CREATED AUTHOR AUTHOR'S ORGANIZ ATION 09/01/[address] [facility] DATE CREATED AUTHOR AUTHOR'S ORGANIZ ATION 01/31/2023 [facility] DATE CREATED AUTHOR AUTHOR'S ORGANIZ ATION 06/24/2024 [facility] EPIC DATE CREATED AUTHOR AUTHOR'S ORGANIZ ATION 03/13/2025 [facility] DATE CREATED AUTHOR AUTHOR'S ORGANIZ ATION 06/18/2025 [facility] Care Teams (unrecognized sec tion and content) [employer] Relationship Specialty Start Date End Date Kael Adkins MD [address] [place] [address] PCP - General Family Medicine 12/13/23 Team Status: Active Member Role Status Dates Kael Adkins MD Primary Care Provider Active Team Status: Inactive Member Role Status Dates Kael Adkins MD Primary Care Provider Active Start: May 03, 2024 End: May 03, 2024 Wendy Scott APRN Attending Provider Active St art: May 03, 2024 End: May 03, 2024 Nichole Giordano APRN Active Start: May 03, 2024 End: May 03, 2024 Team Status: Inactive Member Role Status Dates Kael Adkins MD Attending Provider Active Sta rt: March 07, 2025 End: March 07, 2025 Goals (unrecognized section and content) Goals may be documented in a n alternate sectionGoals may be documented in an alternate section FOR RECORDS PERTAINING TO PATIENTS WHO ARE [...] BE BASED ON THE PRIMARY CLINICAL RECORDS. [employer] provides no warranty or guarantee of the accuracy or completeness of information in this document.
--- NOTE | 2025-06-25 18:29 | PC.NURSE ---
upon ED arrival, pt arrived via EMS. pt transferred over to ED cart and foul smelling urine was noted. pt arrived in a brief that was soaked. pt unable to state when the brief was last changed. this RN changed pt into gown and removed old soaked brief. pts linens changed d/t pt urinating while changing. states she does not always know when she has to urinate which is baseline. pt noted to have reddened genital area that is blanchable. no open wounds or sores noted. excoriation from sitting in wet brief noted. some yeast noted to labia. pt has small reddened area to coccyx that is blanchable. pt denies pain to bottom or genital. pt states having home health nurse who changes her, also states she moves from chair to potty chair independently. pt is weak and unable to lift legs off of bed during this security solutions architect and assessment.
--- OUTSIDE RECORDS SUMMARY | 2025-06-25 20:02 | XMS_ITS | CCD ---
Author Organization [facility] Care Team Providers Care [place] Name Role Phone ABEBE, JIANLIN Unavailable Unavailable [...] Unavailable Kael Adkins MD Primary Care Provider [phone] ANNA KUMAR Attending Unavailable MD Kael Adkins Primary Care Provider [phone] DG Scott Attending Provider [phone] Kael Adkins MD Attending Provider Kael Adkins Admitting Unavailable Kael Adkins Attending Unavailable Kael Adkins Primary Care Unavailable Wendy Scott Admitting Unavailable Wendy Scott Attending Unavailable STACIA KELLER Attending Unavailable PROVIDER, CONVERSION Primary Care Unavailable Allergies Allergy Classification Reported Allergen(s) Allergy Type Date of Onset Reaction(s) Facility (5 sources) codeine Drug Allergy 12-28-19 13 AOF, Unknown Reaction [facility] Repository (1 source) Dust; Translations: [Dust] Propensity to adverse reactions (disorder) 12-28-19 13 [facility] Repository (3 sources) glycerin Drug Allergy 12-28-19 13 Unknown Reaction [facility] Repository (1 source) Grass pollen; Translations: [grass pollen] Propensity to adverse reactions (disorder) 12-28-19 13 [facility] Repository (5 sources) Latex Drug allergy (disorder) 12-28-19 13 Unknown Reaction [facility] Repository (2 sources) meperidine Drug Allergy 12-28-19 13 AOF [facility] Repository (4 sources) mold extract; Translations: [Mold] Drug Allergy 12-28-19 13 Sneezing [facility] Repository (3 sources) nitrofurantoin Drug Allergy 12-23-19 16 [facility] Repository (1 source) sulfamethoxazole / trimethoprim Drug Allergy 12-28-19 13 [facility] Repository (2 sources) Desonide Drug Allergy 06-13-20 13 [facility] Repository (2 sources) Glycerin Drug Allergy 06-13-20 13 [facility] Repository (4 sources) Lidocaine Drug Allergy 06-13-20 13 Unknown Reaction [facility] Repository (2 sources) Meperidine Drug Allergy 12-23-19 16 [facility] Repository (2 sources) Sulfonamides (Antibiotic) Drug allergy (disorder) 12-23-19 16 [facility] Repository (2 sources) Grass Pollen-[place], Standard Drug allergy (disorder) 06-13-20 13 [facility] Repository (2 sources) Misc-ENV; Translations: [Misc-ENV] Propensity to adverse reactions (disorder) 06-13-20 13 [facility] Repository (3 sources) Meperidine; Translations: [meperidine] Drug Allergy 04-08-[address] [facility] (3 sources) Sulfonamides (Antibiotic); Translations: [Sulfa (Sulfonamide Antibiotics)] Allergy to substance 04-08-20 [facility] (3 sources) cat dander; Translations: [cat dander] Allergy to substance 04-08-[address] [facility] (3 sources) NSAIDS (Non-Steroidal Anti-Inflamma; Translations: [NSAIDS (Non-Steroidal Anti-Inflamma] Allergy to substance 04-08-20 [facility] (1 source) Codeine Drug Allergy 04-08-[address] [facility] Repository (1 source) Glycerin Drug Allergy 04-08-[address] [facility] Repository (1 source) Latex Drug allergy (disorder) 04-08-[address] [facility] Repository (1 source) Lidocaine Drug Allergy 04-08-[address] 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 Delays in transport may affect results. Interpret with caution. A clinical correlation is recommended. Performed By: #### T HYR #### [facility] ([address] [address] VIR BLOOD/HGB Trace Abnormal Negative [facility] Comment on above: Order Comment: Urine received without preservative. Delays in transport may affect results. Interpret with caution. A clinical correlation is recommended. Performed By: #### T HYR #### [facility] ([address] [address] VIR Color (U) Yellow Normal Yellow [facility] Comment on above: Order Comment: Urine received without preservative. Delays in transport may affect results. Interpret with caution. A clinical correlation is recommended. Performed By: #### T HYR #### [facility] ([address] [address] VIR Glucose Ql (U) Negative Normal Negative, 250 mg/dL [facility] Comment on above: Order Comment: Urine received without preservative. Delays in transport may affect results. Interpret with caution. A clinical correlation is recommended. Performed By: #### T HYR #### [facility] ([address] [address] VIR Ketones Ql (U) Negative Normal Negative [facility] Comment on above: Order Comment: Urine received without preservative. Delays in transport may affect results. Interpret with caution. A clinical correlation is recommended. Performed By: #### T HYR #### [facility] ([address] [address] VIR Leukocyte esterase Test strip Ql (U) Moderate Abnormal Negative [facility] Comment on above: Order Comment: Urine received without preservative. Delays in transport may affect results. Interpret with caution. A clinical correlation is recommended. Performed By: #### T HYR #### [facility] ([address] [address] VIR Nitrite Ql (U) Positive Abnormal Negative [facility] Comment on above: Order Comment: Urine received without preservative. Delays in transport may affect results. Interpret with caution. A clinical correlation is recommended. Performed By: #### T HYR #### [facility] ([address] [address] VIR PH,URINE 6.0 Normal 5.0-8.5 [facility] Comment on above: Order Comment: Urine received without preservative. Delays in transport may affect results. Interpret with caution. A clinical correlation is recommended. Performed By: #### T HYR #### [facility] ([address] [address] VIR Protein Ql (U) Trace Abnormal Negative [facility] Comment on above: Order Comment: Urine received without preservative. Delays in transport may affect results. Interpret with caution. A clinical correlation is recommended. Performed By: #### T HYR #### [facility] ([address] [address] VIR R.B.CELLS 3 Normal 0-5 [facility] Comment on above: Order Comment: Urine received without preservative. Delays in transport may affect results. Interpret with caution. A clinical correlation is recommended. Performed By: #### T HYR #### [facility] ([address] [address] VIR Specific gravity (U) [Rel density] 1.025 Normal 1.003-1.035 [facility] Comment on above: Order Comment: Urine received without preservative. Delays in transport may affect results. Interpret with caution. A clinical correlation is recommended. Performed By: #### T HYR #### [facility] ([address] [address] VIR SQUAMOUS EPITHELIUM 2 Normal 0-5 [facility] Comment on above: Order Comment: Urine received without preservative. Delays in transport may affect results. Interpret with caution. A clinical correlation is recommended. Performed By: #### T HYR #### [facility] ([address] [address] VIR TURBIDITY Cloudy Abnormal Clear [facility] Comment on above: Order Comment: Urine received without preservative. Delays in transport may affect results. Interpret with caution. A clinical correlation is recommended. Performed By: #### T HYR #### [facility] ([address] [address] VIR UROBILINOGEN 0.2 eu/dL Normal 0.2 eu/dL, 1.0 eu/dL [facility] Comment on above: Order Comment: Urine received without preservative. Delays in transport may affect results. Interpret with caution. A clinical correlation is recommended. Performed By: #### T HYR #### [facility] ([address] [address] VIR W.B.CELLS >^100 High 0-5 [facility] Comment on above: Order Comment: Urine received without preservative. Delays in transport may affect results. Interpret with caution. A clinical correlation is recommended. Performed By: #### T HYR #### [facility] ([address] [address] VIR URINE CULTUREon 06-14-2025 Bacteria identified Cx [...] Trimethoprim + Sulfamethoxazole S <=^1.0 F Susceptible [facility] Comment on above: Order Comment: Along with 10,000 to 50,000 CFU/mL Normal Urogenital Dania.Urine received without preservative - delays in transport may affect results. Interpret with caution and clinical correlation is recommended. Performed By: #### T HYR #### [facility] ([address] [place] [address] VIR URINALYSISon 05-23-2025 Bilirubin Ql (U) Negative Normal Negative [facility] Comment on above: Performed By: #### T HYR #### [facility] ([address] [place] [address] VIR BLOOD/HGB Negative Normal Negative [facility] Comment on above: Performed By: #### T HYR #### [facility] ([address] [place] [address] VIR Color (U) Yellow Normal Yellow, Colorless [facility] Comment on above: Performed By: #### T HYR #### [facility] ([address] [place] [address] VIR Glucose Ql (U) Negative Normal Negative, 250 mg/dL [facility] Comment on above: Performed By: #### T HYR #### [facility] ([address] [place] [address] VIR Ketones Ql (U) Negative Normal Negative [facility] Comment on above: Performed By: #### T HYR #### [facility] ([address] [place] [address] VIR Leukocyte esterase Test strip Ql (U) Moderate Abnormal Negative [facility] Comment on above: Performed By: #### T HYR #### [facility] ([facility]) [address] [place] [address] VIR Nitrite Ql (U) Positive Abnormal Negative [facility] Comment on above: Performed By: #### T HYR #### [facility] ([facility]) [address] [place] [address] [place] [address] VIR PH,URINE 6.0 Normal 5.0-8.5 [facility] Comment on above: Performed By: #### T HYR #### [facility] ([address] [place] [address] VIR Protein Ql (U) Trace Abnormal Negative [facility] Comment on above: Performed By: #### T HYR #### [facility] ([address] [place] [address] VIR R.B.CELLS 3 Normal 0-5 [facility] Comment on above: Performed By: #### T HYR #### [facility] ([address] [place] [address] VIR Specific gravity (U) [Rel density] 1.020 Normal 1.003-1.035 [facility] Comment on above: Performed By: #### T HYR #### [facility] ([address] [place] [address] VIR SQUAMOUS EPITHELIUM 1 Normal 0-5 [facility] Comment on above: Performed By: #### T HYR #### [facility] ([place] [address] [facility] [place] [address] VIR TURBIDITY Hazy Abnormal Clear [facility] Comment on above: Performed By: #### T HYR #### [facility] ([address] [place] [address] VIR UROBILINOGEN 0.2 eu/dL Normal 0.2 eu/dL, 1.0 eu/dL [facility] Comment on above: Performed By: #### T HYR #### [facility] ([facility]) [address] [place] [address] VIR W.B.CELLS 90 High 0-5 [facility] Comment on above: Performed By: #### T HYR #### [facility] ([facility]) [address] [place] [address] VIR URINE CULTUREon 05-23-2025 Bacteria identified Cx [...] Trimethoprim + Sulfamethoxazole S <=^1.0 F Susceptible [facility] Comment on above: Performed By: #### T HYR #### [facility] ([address] [address] VIR URINALYSISon 05-01-2025 Bilirubin Ql (U) Negative Normal Negative [facility] Comment on above: Order Comment: Urine received without preservative. Delays in transport may affect results. Interpret with caution. A clinical correlation is recommended. Performed By: #### U A #### [facility] ([facility]) [address] [place] [address] VIR BLOOD/HGB Negative Normal Negative [facility] Comment on above: Order Comment: Urine received without preservative. Delays in transport may affect results. Interpret with caution. A clinical correlation is recommended. Performed By: #### U A #### [facility] ([address] [place] [address] VIR Color (U) Yellow Normal Yellow, Colorless [facility] Comment on above: Order Comment: Urine received without preservative. Delays in transport may affect results. Interpret with caution. A clinical correlation is recommended. Performed By: #### U A #### [facility] ([address] [place] [address] VIR Glucose Ql (U) Negative Normal Negative, 250 mg/dL [facility] Comment on above: Order Comment: Urine received without preservative. Delays in transport may affect results. Interpret with caution. A clinical correlation is recommended. Performed By: #### U A #### [facility] ([address] [place] [address] VIR Ketones Ql (U) Negative Normal Negative [facility] Comment on above: Order Comment: Urine received without preservative. Delays in transport may affect results. Interpret with caution. A clinical correlation is recommended. Performed By: #### U A #### [address] [place] [address] VIR Leukocyte esterase Test strip Ql (U) Trace Abnormal Negative [facility] Comment on above: Order Comment: Urine received without preservative. Delays in transport may affect results. Interpret with caution. A clinical correlation is recommended. Performed By: #### U A #### [facility] ([address] [place] [address] VIR Nitrite Ql (U) Negative Normal Negative [facility] Comment on above: Order Comment: Urine received without preservative. Delays in transport may affect results. Interpret with caution. A clinical correlation is recommended. Performed By: #### U A #### [address] [place] [address] VIR PH,URINE 6.0 Normal 5.0-8.5 [facility] Comment on above: Order Comment: Urine received without preservative. Delays in transport may affect results. Interpret with caution. A clinical correlation is recommended. Performed By: #### U A #### [facility] ([address] [address] VIR Protein Ql (U) Negative Normal Negative [facility] Comment on above: Order Comment: Urine received without preservative. Delays in transport may affect results. Interpret with caution. A clinical correlation is recommended. Performed By: #### U A #### [facility] ([address] [address] VIR Specific gravity (U) [Rel density] <=^1.005 Normal 1.003-1.035 [facility] Comment on above: Order Comment: Urine received without preservative. Delays in transport may affect results. Interpret with caution. A clinical correlation is recommended. Performed By: #### U A #### [facility] ([address] [address] VIR SQUAMOUS EPITHELIUM 1 Normal 0-5 [facility] Comment on above: Order Comment: Urine received without preservative. Delays in transport may affect results. Interpret with caution. A clinical correlation is recommended. Performed By: #### U A #### [facility] ([address] [address] VIR TURBIDITY Clear Normal Clear [facility] Comment on above: Order Comment: Urine received without preservative. Delays in transport may affect results. Interpret with caution. A clinical correlation is recommended. Performed By: #### U A #### [facility] ([address] [address] VIR UROBILINOGEN 0.2 eu/dL Normal 0.2 eu/dL, 1.0 eu/dL [facility] Comment on above: Order Comment: Urine received without preservative. Delays in transport may affect results. Interpret with caution. A clinical correlation is recommended. Performed By: #### U A #### [facility] ([address] [address] VIR W.B.CELLS 20 High 0-5 [facility] Comment on above: Order Comment: Urine received without preservative. Delays in transport may affect results. Interpret with caution. A clinical correlation is recommended. Performed By: #### U A #### [facility] ([address] [place] [address] VIR URINE CULTUREon 05-01-2025 Bacteria identified Cx [...] Trimethoprim + Sulfamethoxazole S <=^1.0 F Susceptible [facility] Comment on above: Order Comment: Urine received without preservative - delays in transport may affect results. Interpret with caution and clinical correlation is recommended. Performed By: #### T HYR #### [facility] ([address] [place] [address] VIR BASIC METABOLIC PANELon Anion gap [Moles/Vol] 12 mmol/L Normal 5-15 [facility] Comment on above: Performed By: #### B MP #### [facility] ([address] [address] VIR Calcium [Mass/Vol] 9.4 mg/dL Normal 8.5-10.5 [facility] Comment on above: Performed By: #### B MP #### [facility] ([address] [place] [address] VIR Chloride [Moles/Vol] 102 mmol/L Normal 98-109 [facility] Comment on above: Performed By: #### B MP #### [facility] ([address] [place] [address] VIR CO2 [Moles/Vol] 21 mmol/L Low 22-32 [facility] Comment on above: Performed By: #### B MP #### [facility] ([address] [place] [address] VIR Creatinine [Mass/Vol] 2.29 mg/dL High 0.40-1.00 [facility] Comment on above: Result Comment: METH OD TRACEABLE TO IDMS STANDARD Performed By: #### B MP #### [facility] ([address] [address] VIR GFR/1.73 sq M.predicted among non-blacks MDRD (S/P/Bld) [Vol rate/Area] 20 mL/min/{1.73_m2} Low >=60 [facility] Comment on above: Result Comment: eGFR not reported due to non-numeric value for Creatinine. Reported eGFR is based on the CKD-EPI 2021 equation that does not use a race coefficient. Performed By: #### B MP #### [facility] ([address] [place] [address] VIR Glucose [Mass/Vol] 188 mg/dL High 65-99 [facility] Comment on above: Performed By: #### B MP #### [facility] ([address] [place] [address] VIR Potassium [Moles/Vol] 4.9 mmol/L Normal 3.5-5.0 [facility] Comment on above: Performed By: #### B MP #### [facility]) [address] [place] [address]. [place] [address] VIR Sodium [Moles/Vol] 135 mmol/L Normal 134-146 [facility] Comment on above: Performed By: #### B MP #### [facility] ([facility]) [address] [place] [address]. [place] [address] VIR Urea nitrogen [Mass/Vol] 29 mg/dL High 5-27 [facility] Comment on above: Performed By: #### B MP #### [facility] ([facility]) [address] [place] [address] VIR Urine Cultureon 03-07-2025 Bacteria identified Cx Nom (U) 25,000 colonies/ml mixed bacterial skin contaminants 2 Days PERFORMED BY: [place] [address] PATHOLOGIST BOX OFFICE CLERK DEBORAH VIZCAINO M.D. Normal [facility] Comment on above: Performed By: #### C UU #### [address] CBC WITH AUTO DIFFERENTIALon 03-05-2025 BASOPHILS ABSOLUTE COUNT (10*3/UL) BY AUTOMATED COUNT 0.0 10*3/uL Normal [facility] Comment on above: Performed By: #### C BCA #### [facility] ([facility]) [address] [place] [address] VIR BASOPHILS RELATIVE PERCENT BY AUTOMATED COUNT 0.7 % Normal [facility] Comment on above: Performed By: #### C BCA #### [facility] ([facility]) [address] [place] [address]. [place] [address] VIR CELLAVISION DIFFERENTIAL TYPE AUTOMATED DIFFERENTIAL Normal [facility] Comment on above: Performed By: #### C BCA #### [facility] ([facility]) [address] [place] [address] VIR Eosinophils (Bld) [#/Vol] 0.2 10*3/uL Normal [facility] Comment on above: Performed By: #### C BCA #### [facility] ([address] [address] VIR EOSINOPHILS RELATIVE PERCENT BY AUTOMATED COUNT 2.5 % Normal [facility] Comment on above: Performed By: #### C BCA #### [facility] ([address] [address] VIR Erythrocyte distribution width (RBC) [Ratio] 15.8 % High 11.5-15 [facility] Comment on above: Performed By: #### C BCA #### [facility] ([address] [address] VIR Hematocrit (Bld) [Volume fraction] 34.8 % Low 35-47 [facility] Comment on above: Performed By: #### C BCA #### [facility] ([address] [address] VIR Hemoglobin (Bld) [Mass/Vol] 11.4 g/dL Low 11.7-15.5 [facility] Comment on above: Performed By: #### C BCA #### [facility] ([address] [address] VIR LYMPHOCYTES ABSOLUTE COUNT (10*3/UL) BY AUTOMATED COUNT 2.0 10*3/uL Normal [facility] Comment on above: Performed By: #### C BCA #### [facility] ([address] [address] VIR LYMPHOCYTES RELATIVE PERCENT BY AUTOMATED COUNT 30.3 % Normal [facility] Comment on above: Performed By: #### C BCA #### [facility] ([address] [address] VIR MCH (RBC) [Entitic mass] 28.6 pg Normal 27-34 [facility] Comment on above: Performed By: #### C BCA #### [facility] ([address] [place] [address] VIR MCHC (RBC) [Mass/Vol] 32.7 g/dL Normal 32-36 [facility] Comment on above: Performed By: #### C BCA #### [facility] ([address] [place] [address] VIR MCV (RBC) [Entitic vol] 88 fL Normal 80-100 [facility] Comment on above: Performed By: #### C BCA #### [facility] ([address] [place] [address] VIR MONOCYTES ABSOLUTE COUNT (10*3/UL) BY AUTOMATED COUNT 0.6 10*3/uL Normal [facility] Comment on above: Performed By: #### C BCA #### [facility] ([address] [place] [address] VIR MONOCYTES RELATIVE PERCENT BY AUTOMATED COUNT 8.9 % Normal [facility] Comment on above: Performed By: #### C BCA #### [facility] ([address] [place] [address] VIR NEUTROPHILS ABSOLUTE COUNT BY AUTOMATED COUNT 3.8 10*3/uL Normal [facility] Comment on above: Performed By: #### C BCA #### [facility] ([address] [place] [address] VIR NEUTROPHILS RELATIVE PERCENT BY AUTOMATED COUNT 57.6 % Normal [facility] Comment on above: Performed By: #### C BCA #### [facility] ([address] [place] [address] VIR Platelet mean volume (Bld) [Entitic vol] 9.0 fL Normal 7-12 [facility] Comment on above: Performed By: #### C BCA #### [facility] ([address] [place] [address] VIR Platelets (Bld) [#/Vol] 236 10*3/uL Normal 150-450 [facility] Comment on above: Performed By: #### C BCA #### [facility] ([address] [place] [address] VIR RBC COUNT 3.98 X10E12/L Normal 3.8-5.2 [facility] Comment on above: Performed By: #### C BCA #### [facility] ([address] [place] [address] VIR WBC (Bld) [#/Vol] 6.6 10*3/uL Normal 4-11 [facility] Comment on above: Performed By: #### C BCA #### [facility] ([address] [place] [address] VIR COMPREHENSIVE METABOLIC PANE Elmer 03-05-2025 Albumin [Mass/Vol] 4.1 g/dL Normal 3.2-5.3 [facility] Comment on above: Performed By: #### C MP #### [facility] ([address] [place] [address] VIR ALP [Catalytic activity/Vol] 76 U/L Normal 39-130 [facility] Comment on above: Performed By: #### C MP #### [facility] ([address] [place] [address] VIR ALT [Catalytic activity/Vol] 18 U/L Normal <=31 [facility] Comment on above: Performed By: #### C MP #### [facility] ([address] [place] [address] VIR Anion gap [Moles/Vol] 8 mmol/L Normal 5-15 [facility] Comment on above: Performed By: #### C MP #### [facility] ([address] [place] [address] VIR AST [Catalytic activity/Vol] 21 U/L Normal <=41 [facility] Comment on above: Performed By: #### C MP #### [facility] ([address] [place] [address] VIR Bilirubin [Mass/Vol] 0.6 mg/dL Normal 0.3-1.2 [facility] Comment on above: Performed By: #### C MP #### [facility] ([address] [place] [address] VIR Calcium [Mass/Vol] 9.4 mg/dL Normal 8.5-10.5 [facility] Comment on above: Performed By: #### C MP #### [facility] ([address] [place] [address] VIR Chloride [Moles/Vol] 103 mmol/L Normal 98-109 [facility] Comment on above: Performed By: #### C MP #### [facility] ([address] [place] [address] VIR CO2 [Moles/Vol] 24 mmol/L Normal 22-32 [facility] Comment on above: Performed By: #### C MP #### [facility] ([address] [place] [address] VIR Creatinine [Mass/Vol] 2.14 mg/dL High 0.40-1.00 [facility] Comment on above: Result Comment: METH OD TRACEABLE TO IDMS STANDARD Performed By: #### C MP #### [facility] ([address] [place] [address] VIR GFR/1.73 sq M.predicted among non-blacks MDRD (S/P/Bld) [Vol rate/Area] 22 mL/min/{1.73_m2} Low >=60 [facility] Comment on above: Result Comment: Repo rted eGFR is based on the CKD-EPI 2020 equation that does not use a race coefficient. Performed By: #### C MP #### [facility] ([facility]) [address] [place] [address] VIR Glucose [Mass/Vol] 102 mg/dL High 65-99 [facility] Comment on above: Performed By: #### C MP #### [facility] ([facility]) [address] [place] [address] VIR Potassium [Moles/Vol] 6.3 mmol/L Critically high 3.5-5.0 [facility] Comment on above: Performed By: #### C MP #### [facility] ([address] [place] [address] VIR Protein [Mass/Vol] 7.0 g/dL Normal 6.0-8.0 [facility] Comment on above: Performed By: #### C MP #### [facility] ([address] [place] [address] VIR Sodium [Moles/Vol] 135 mmol/L Normal 134-146 [facility] Comment on above: Performed By: #### C MP #### [facility] ([address] [place] [address] VIR Urea nitrogen [Mass/Vol] 30 mg/dL High 5-27 [facility] Comment on above: Performed By: #### C MP #### [facility] ([address] [place] [address] VIR HEMOGLOBIN A1Con 03-05-2025 Glucose [Mass/Vol] 123 mg/dL Normal [facility] Comment on above: Performed By: #### H A1C #### [facility] ([facility]) [address] [place] [address] VIR HbA1c (Bld) [Mass fraction] 5.9 % High 4.4-5.6 [facility] Comment on above: Result Comment: ADA Guidelines Result HgbA1c Normal : less than 5.7 % Prediabetes : 5.7 % to 6.4 % Diabetes : > 6.4 % Use with caution in patients with abnormal hemoglobin variants as the half-life of red blood cells and in vivo glycation rates are affected. Performed By: #### H A1C #### [facility] ([facility]) [address] [place] [address] VIR INSULINon 03-05-2025 INSULIN 19.48 uIU/mL Normal 1.00-23.00 [facility] Comment on above: Order Comment: Ref. range is for FASTING NON-DIABETIC POPULATION. Performed By: #### I NSL #### [facility] ([facility]) [address] [place] [address] VIR IRON AND TIBCon 03-05-2025 Iron [Mass/Vol] 48 ug/dL Low 50-170 [facility] Comment on above: Performed By: #### F EPR #### [facility] ([facility]) [address] [place] [address] VIR IRON BINDING 515 ug/dL High 250-425 [facility] Comment on above: Performed By: #### F EPR #### [facility] ([facility]) [address] [place] [address] VIR IRON SATURATION 9 % SATURATION Low 15-50 [facility] Comment on above: Performed By: #### F EPR #### [facility] ([facility]) [address] [place] [address] VIR Transferrin [Mass/Vol] 368 mg/dL High 168-336 [facility] Comment on above: Performed By: #### F EPR #### [facility] ([facility]) [address] [place] [address] VIR LIPID PROFILEon 03-05-2025 Cholesterol [Mass/Vol] 186 mg/dL Normal 150-200 [facility] Comment on above: Performed By: #### L IPR #### [facility] ([facility]) [address] [place] [address] VIR Cholesterol in HDL [Mass/Vol] 43 mg/dL Normal >39 [facility] Comment on above: Result Comment: HDL <40 mg/dL - High Risk HDL > or = 40mg/dL- Desirable HDL >60 mg/dL - Negative Risk Performed By: #### L IPR #### [facility] ([facility]) [address] [place] [address] VIR Cholesterol in LDL [Mass/Vol] 100 mg/dL Normal <130 [facility] Comment on above: Result Comment: LDL <100 mg/dL - Desirable LDL >160 mg/dL - High Risk Performed By: #### L IPR #### [facility] ([facility]) [address] [place] [address] VIR CHOLESTEROL:HDL 4.3 Normal 1.0-5.0 [facility] Comment on above: Performed By: #### L IPR #### [facility] ([facility]) [address] [place] [address] VIR Triglyceride [Mass/Vol] 217 mg/dL High 27-150 [facility] Comment on above: Performed By: #### L IPR #### [facility] ([facility]) [address] [place] [address] VIR VERY LOW LIPOPROTEIN 43 mg/dL High 0-30 [facility] Comment on above: Performed By: #### L IPR #### [facility] ([facility]) [address] [place] [address] VIR THYROID PROFILE INCLUDES TSH FT4on 03-05-2025 Free T4 [Mass/Vol] 0.93 ng/dL Normal 0.61-1.60 [facility] Comment on above: Performed By: #### T HYR #### [facility] ([facility]) [address] [place], [place] [address] [address] VIR TSH 2.21 uIU/mL Normal 0.49-4.67 [facility] Comment on above: Performed By: #### T HYR #### [facility] ([facility]) [address] [place] [address] VIR VITAMIN D 25 HYDROXYon 03-05 VITAMIN D 25 HYD TOT 35.4 ng/mL Normal 30.0-100.0 [facility] Comment on above: Order Comment: Vitam in D status 25 [place] Vitamin D Deficiency <20 ng/mL Insufficiency 20-29 ng/mL Sufficiency 30-100 ng/mL Toxicity >100 ng/mL NOTE: A pediatric reference range has not been established by the memory care program director of this kit. The [place] [employer] recommends a Vitamin D level of = or >20ng/mL in infants and children. Performed By: #### V ITD #### [facility] ([facility]) [address] [place] [address] VIR CULTURE URINEon 01-22-2023 CULTURE URINE Culture Observations : NO GROWTH. Normal [facility] Comment on above: Performed By: #### U A #### [facility] [address] [place] [address] Dr. Noreen Castro UA RANDOM W/MICROSCOPICon BACTERIA NONE SEEN Normal NONE SEEN [facility] Comment on above: Performed By: #### U AMIC #### [facility] [address] [address] [address] Noreen Castro Bilirubin Ql (U) Negative Normal NEGATIVE [facility] Comment on above: Performed By: #### U AMIC #### [facility] [address] [address] [address] Noreen Castro CAST NONE SEEN Normal NONE SEEN [facility] Comment on above: Performed By: #### U AMIC #### [facility] [address] [address] [address] Noreen Castro Clarity (U) SL CLOUDY Abnormal CLEAR [facility] Comment on above: Performed By: #### U AMIC #### [facility] [address] [address] [address] Noreen Castro Color (U) LT. YELLOW Normal YELLOW [facility] Comment on above: Performed By: #### U AMIC #### [facility] [address] [address] [address] Noreen Castro Crystals LM Nom (Urine sed) NONE SEEN Normal NONE SEEN [facility] Comment on above: Performed By: #### U AMIC #### [facility] [address] [address] [address] Noreen Castro Epithelial cells LM Ql (Urine sed) FEW Abnormal NONE SEEN /RARE [facility] Comment on above: Performed By: #### U AMIC #### [facility] [address] [place] [address] Dr. Noreen Castro Glucose Ql (U) Negative Normal NEGATIVE The [facility] Comment on above: Performed By: #### U AMIC #### [facility] [address] [address] [address] oNreen Castro Hemoglobin Ql (U) Negative Normal NEGATIVE [facility] Comment on above: Performed By: #### U AMIC #### [facility] [address] [address] [address] Noreen Castro Ketones Ql (U) Negative Normal NEGATIVE [facility] Comment on above: Performed By: #### U AMIC #### [facility] [address] [address] [address] Noreen Castro LEUKOCYTES Negative Normal NEGATIVE [facility] Comment on above: Performed By: #### U AMIC #### [facility] [address] [address] [address] Noreen Castro MUCOUS NONE SEEN Normal NONE SEEN [facility] Comment on above: Performed By: #### U AMIC #### [facility] [address] [address] [address] Noreen Castro Nitrite Ql (U) Negative Normal NEGATIVE [facility] Comment on above: Performed By: #### U AMIC #### [facility] [address] [place] [address] Dr. Noreen Castro pH (U) 6.0 [pH] Normal 5-9 [facility] Comment on above: Performed By: #### U AMIC #### [facility] [address] [place] [address] Dr. Noreen Castro RBC NONE SEEN Abnormal 0-2 [facility] Comment on above: Performed By: #### U AMIC #### [facility] [address] [place] [address] Dr. Noreen Castro SPEC GRAVITY 1.015 Normal 1.005-<=1.02 5 [facility] Comment on above: Performed By: #### U AMIC #### [facility] [address] [place] [address] Dr. Noreen Castro UA PROTEIN TRACE Normal NEGATIVE/ TRACE [facility] Comment on above: Performed By: #### U AMIC #### [facility] [address] [place] [address] Dr. Noreen Castro Urobilinogen Qn (U) 0.2 {Scarlett'U}/dL Normal 0.2 - 1.0 [facility] Comment on above: Performed By: #### U AMIC #### [facility] [address] [place] [address] Dr. Noreen Castro WBC 0-2 Abnormal NONE SEEN [facility] Comment on above: Performed By: #### U AMIC #### [facility] [address] [place] [address] Dr. Noreen Castro BILIRUBIN CONJUGATED (DIRECT )on 11-16-2022 BILI, CONJUGATED 0.1 mg/dL Normal 0.0-0.[address] [facility] Comment on above: Performed By: #### D NATASHA, CMP #### [facility] [address] [place] [address] Dr. Noreen Castro CBC AUTO DIFFon 11-16-2022 BASO # 0.1 103/ul Normal 0.0-0.1 [facility] Comment on above: Performed By: #### C BC #### [facility] [address] [place] [address] Dr. Noreen Castro Basophils/100 WBC (Bld) 0.6 % Normal 0.2-2.0 [facility] Comment on above: Performed By: #### C BC #### [facility] [address] [place] [address] Dr. Noreen Castro EO # 0.2 103/ul Normal 0.0-0.7 [facility] Comment on above: Performed By: #### C BC #### [facility] [address] [place] [address] Dr. Noreen Castro Eosinophils/100 WBC (Bld) 1.8 % Normal 0.9-7.0 [facility] Comment on above: Performed By: #### C BC #### [facility] [address] [place] [address] Dr. Noreen Castro Erythrocyte distribution width (RBC) [Ratio] 14.1 % Normal 11.0-15.0 [facility] Comment on above: Performed By: #### C BC #### [facility] [address] [place] [address] Dr. Noreen Castro Hematocrit (Bld) [Volume fraction] 35.0 % Critically low 36.0-48.0 [facility] Comment on above: Performed By: #### C BC #### [facility] [address] [place] [address] Dr. Noreen Castro Hemoglobin (Bld) [Mass/Vol] 12.0 g/dL Normal 12.0-16.0 [facility] Comment on above: Performed By: #### C BC #### [facility] [address] [place] [address] Dr. Noreen Castro IG # 0.07 10e3/ul Critically high 0.00-0.03 [facility] Comment on above: Performed By: #### C BC #### [facility] [address] [place] [address] Dr. Noreen Castro IG % 0.7 % Critically high 0.0-0.[address] [facility] Comment on above: Performed By: #### C BC #### [facility] [address] [place] [address] Dr. Noreen Castro LYMPH # 2.8 103/ul Normal 1.2-3.8 [facility] Comment on above: Performed By: #### C BC #### [facility] [address] [place] [address] Dr. Noreen Castro Lymphocytes/100 WBC (Bld) 27.1 % Normal 20.5-60.0 [facility] Comment on above: Performed By: #### C BC #### [facility] [address] [place] [address] Dr. Noreen Castro MANUAL DIFF REQ NO Normal [facility] Comment on above: Performed By: #### C BC #### [facility] [address] [place] [address] Dr. Noreen Castro MCH (RBC) [Entitic mass] 31.1 pg Normal 26.7-34.0 [facility] Comment on above: Performed By: #### C BC #### [facility] [address] [place] [address] Dr. Noreen Castro MCHC (RBC) [Mass/Vol] 34.3 g/dL Normal 29.9-35.2 [facility] Comment on above: Performed By: #### C BC #### [facility] [address] [place] [address] Dr. Noreen Castro MCV (RBC) [Entitic vol] 90.7 fL Normal 81.0-99.0 [facility] Comment on above: Performed By: #### C BC #### [facility] [address] [place] [address] Dr. Noreen Castro MONO # 0.8 103/ul Normal 0.3-0.8 [facility] Comment on above: Performed By: #### C BC #### [facility] [address] [place] [address] Dr. Noreen Castro Monocytes/100 WBC (Bld) 8.0 % Normal 1.7-12.0 [facility] Comment on above: Performed By: #### C BC #### [facility] [address] [place] [address] Dr. Noreen Castro NEUT # 6.3 103/ul Normal 1.4-6.5 [facility] Comment on above: Performed By: #### C BC #### [facility] [address] [address] [address] Noreen Castro Neutrophils/100 WBC (Bld) 61.8 % Normal 43.0-75.0 [facility] Comment on above: Performed By: #### C BC #### [facility] [address] [address] [address] Noreen Castro Platelet mean volume (Bld) [Entitic vol] 9.6 fL Normal 9.5-13.5 [facility] Comment on above: Performed By: #### C BC #### [facility] [address] [place] [address] Dr. Noreen Castro PLT 210 103/ul Normal 150-450 [facility] Comment on above: Performed By: #### C BC #### [facility] [address] [place] [address] Dr. Noreen Castro RBC 3.86 106/ul Critically low 4.20-5.40 [facility] Comment on above: Performed By: #### C BC #### [facility] [address] [place] [address] Dr. Noreen Castro WBC 10.1 103/ul Normal 4.0-11.0 [facility] Comment on above: Performed By: #### C BC #### [facility] [address] [place] [address] Dr. Noreen Castro PROF 14(COMP METB)on 023 Albumin [Mass/Vol] 3.8 g/dL Normal 3.4-5.0 [facility] Comment on above: Performed By: #### D NATASHA, CMP #### [facility] [address] [place] [address] Dr. Noreen Castro Albumin/Globulin [Mass ratio] 1.1 {ratio} Normal [facility] Comment on above: Performed By: #### D NATASHA, CMP #### [facility] [address] [address] [address] Noreen Castro ALP [Catalytic activity/Vol] 76 U/L Normal 46-116 [facility] Comment on above: Performed By: #### D NATASHA, CMP #### [facility] [address] [address] [address] Noreen Castro ALT [Catalytic activity/Vol] 15 U/L Normal 14-59 [facility] Comment on above: Performed By: #### D NATASHA, CMP #### [facility] [address] [address] [address] Noreen Castro Anion gap [Moles/Vol] 12.7 mmol/L Normal [facility] Comment on above: Performed By: #### D NATASHA, CMP #### [facility] [address] [address] [address] Noreen Castro AST [Catalytic activity/Vol] 19 U/L Normal 15-37 [facility] Comment on above: Performed By: #### D NATASHA, CMP #### [facility] [address] [address] [address] Noreen Castro Bilirubin [Mass/Vol] 0.3 mg/dL Normal 0.2-1.0 [facility] Comment on above: Performed By: #### D NATASHA, CMP #### [facility] [address] [address] [address] Noreen Castro Calcium [Mass/Vol] 9.6 mg/dL Normal 8.5-10.1 [facility] Comment on above: Performed By: #### D NATASHA, CMP #### [facility] [address] [address] [address] Noreen Castro Chloride [Moles/Vol] 100 mmol/L Normal 98-107 [facility] Comment on above: Performed By: #### D NATASHA, CMP #### [facility] [address] [address] [address] Noreen Castro CO2 [Moles/Vol] 29.4 mmol/L Normal 21.0-32.0 [facility] Comment on above: Performed By: #### D NATASHA, CMP #### [facility] [address] [address] [address] Noreen Castro Creatinine [Mass/Vol] 2.18 mg/dL Critically high 0.55-1.02 [facility] Comment on above: Performed By: #### D NATASHA, CMP #### [facility] [address] [address] [address] Noreen Castro EGFR-AF [place] 26 mL/min/1.73m2 Critically low >=60 [facility] Comment on above: Performed By: #### D NATASHA, CMP #### [facility] [facility] [address] [address] [address] Noreen Castro EGFR-NON AF CANADIAN 22 mL/min/1.73m2 Critically low >=60 [facility] Comment on above: Performed By: #### D NATASHA, CMP #### [facility] [address] [place] [address] Dr. Noreen Castro Globulin (S) [Mass/Vol] 3.6 g/dL Normal [facility] Comment on above: Performed By: #### D NATASHA, CMP #### [facility] [address] [place] [address] Dr. Noreen Castro Glucose [Mass/Vol] 89 mg/dL Normal 74-106 [facility] Comment on above: Performed By: #### D NATASHA, CMP #### [facility] [address] [place] [address] Dr. Noreen Castro Potassium [Moles/Vol] 5.1 mmol/L Normal 3.5-5.1 [facility] Comment on above: Performed By: #### D NATASHA, CMP #### [facility] [address] [place] [address] Dr. Noreen Castro Protein [Mass/Vol] 7.4 g/dL Normal 6.4-8.2 [facility] Comment on above: Performed By: #### D NATASHA, CMP #### [facility] [address] [place] [address] Dr. Noreen Castro Sodium [Moles/Vol] 137 mmol/L Normal 136-145 [facility] Comment on above: Performed By: #### D NATASHA, CMP #### [facility] [address] [place] [address] Dr. Noreen Castro Urea nitrogen [Mass/Vol] 27.0 mg/dL Critically high 7.0-18.0 [facility] Comment on above: Performed By: #### D NATASHA, CMP #### [facility] [address] [address] [address] Noreen Castro Urea nitrogen/Creatinin e [Mass ratio] 12.4 mg/mg Normal [facility] Comment on above: Performed By: #### D NATASHA, CMP #### [facility] [address] [address] [address] Noreen Castro Provider Orderson 08-31-2022 Provider Orders [id number] [facility] C Urineon 08-30-2022 C Urine <10,000 cfu/ml [facility] Comment on above: Performed By: #### [id number] #### [facility] (DEFAULT) [address] [place] [address] UA Standardon 08-28-2022 Breakpoint UA [facility] Comment on above: Performed By: #### 1 [id number] #### [facility] (DEFAULT) [address] [place] [address] 37744 Color (U) Yellow [facility] Comment on above: Performed By: #### 1 [id number] #### [facility] (DEFAULT) [address] [place] [address] 03874 Glucose (U) [Mass/Vol] Negative [facility] Comment on above: Performed By: #### 1 [id number] #### [facility] (DEFAULT) [address] [place] [address] 17101 Ketones Ql (U) Negative [facility] Comment on above: Performed By: #### 1 [id number] #### [facility] (DEFAULT) [address] [place] [address] 10642 UA Bilirubin Negative [facility] Comment on above: Performed By: #### 1 [id number] #### [facility] (DEFAULT) [address] [place] [address] 66220 UA Blood Negative Normal [facility] Comment on above: Performed By: #### 1 [id number] #### [facility] (DEFAULT) [address] [place] [address] 18910 UA Clarity CLEAR Normal CLEAR [facility] Comment on above: Performed By: #### 1 [id number] #### [facility] (DEFAULT) [address] [place] [address] 40287 UA Leuk Est TRACE Abnormal NEGATIVE [facility] Comment on above: Performed By: #### 1 [id number] #### [facility] (DEFAULT) [address] [place] [address] 67167 UA Nitrite Negative Normal NEGATIVE [facility] Comment on above: Performed By: #### 1 [id number] #### [facility] (DEFAULT) [address] [place] [address] 16269 UA pH 6.0 Normal 5-8 [facility] Comment on above: Performed By: #### 1 [id number] #### [facility] (DEFAULT) [address] [place] [address] 70834 UA Protein TRACE Abnormal NEGATIVE [facility] Comment on above: Performed By: #### 1 [id number] #### [facility] (DEFAULT) [address] [place] [address] 31736 UA Spec Grav 1.020 Normal 1.001-1.035 [facility] Comment on above: Performed By: #### 1 [id number] #### [facility] (DEFAULT) [address] [place] [address] 87856 UA Urobilinogen 0.2 mg/dL Normal 0.2-1.0 [facility] Comment on above: Performed By: #### 1 [id number] #### [facility] (DEFAULT) [address] [place] [address] 47723 Urine Source Clean Catch Normal [facility] Comment on above: Performed By: #### 1 [id number] #### [facility] (DEFAULT) [address] [place] [address] 32351 BILIRUBIN CONJUGATED (DIRECT )on 02-11-2022 BILI, CONJUGATED 0.1 mg/dL Normal 0.0-0.3 [facility] Comment on above: Performed By: #### C MP DBIL #### [facility] [address] [address] [address] Noreen Castro CBC AUTO DIFFon 02-11-2022 BASO # 0.1 103/ul Normal 0.0-0.1 [facility] Comment on above: Performed By: #### U A #### [facility] [address] [place] [address] Dr. Noreen Castro Basophils/100 WBC (Bld) 0.6 % Normal 0.2-2.0 [facility] Comment on above: Performed By: #### U A #### [facility] [address] [place] [address] Dr. Noreen Castro EO # 0.2 103/ul Normal 0.0-0.7 [facility] Comment on above: Performed By: #### U A #### [facility] [address] [place] [address] Dr. Noreen Castro Eosinophils/100 WBC (Bld) 1.2 % Normal 0.9-7.0 [facility] Comment on above: Performed By: #### U A #### [facility] [address] [place] [address] Dr. Noreen Castro Erythrocyte distribution width (RBC) [Ratio] 14.4 % Normal 11.0-15.0 [facility] Comment on above: Performed By: #### U A #### [facility] [address] [place] [address] Dr. Noreen Castro Hematocrit (Bld) [Volume fraction] 39.0 % Normal 36.0-48.0 [facility] Comment on above: Performed By: #### U A #### [facility] [address] [place] [address] Dr. Noreen Castro Hemoglobin (Bld) [Mass/Vol] 12.3 g/dL Normal 12.0-16.0 [facility] Comment on above: Performed By: #### U A #### [facility] [address] [place] [address] Dr. Noreen Castro IG # 0.20 10e3/ul Critically high 0.00-0.03 [facility] Comment on above: Performed By: #### U A #### [facility] [address] [place] [address] Dr. Noreen Castro IG % 1.4 % Critically high 0.0-0.5 [facility] Comment on above: Performed By: #### U A #### [facility] [address] [place] [address] Dr. Noreen Castro LYMPH # 4.4 103/ul Critically high 1.2-3.[address] [facility] Comment on above: Performed By: #### U A #### [facility] [address] [place] [address] Dr. Noreen Castro Lymphocytes/100 WBC (Bld) 30.4 % Normal 20.5-60.0 [facility] Comment on above: Performed By: #### U A #### [facility] [address] [place] [address] Dr. Noreen Castro MANUAL DIFF REQ NO Normal [facility] Comment on above: Performed By: #### U A #### [facility] [address] [place] [address] Dr. Noreen Castro MCH (RBC) [Entitic mass] 30.8 pg Normal 26.7-34.0 [facility] Comment on above: Performed By: #### U A #### [facility] [address] [place] [address] Dr. Noreen Castro MCHC (RBC) [Mass/Vol] 31.5 g/dL Normal 29.9-35.2 [facility] Comment on above: Performed By: #### U A #### [facility] [address] [place] [address] Dr. Noreen Castro MCV (RBC) [Entitic vol] 97.5 fL Normal 81.0-99.0 [facility] Comment on above: Performed By: #### U A #### [facility] [address] [place] [address] Dr. Noreen Castro MONO # 1.0 103/ul Critically high 0.3-0.8 [facility] Comment on above: Performed By: #### U A #### [facility] [address] [address] [address] Noreen Castro Monocytes/100 WBC (Bld) 6.8 % Normal 1.7-12.0 [facility] Comment on above: Performed By: #### U A #### [facility] [address] [address] [address] Noreen Castro NEUT # 8.6 103/ul Critically high 1.4-6.[address] [facility] Comment on above: Performed By: #### U A #### [facility] [address] [address] [address] Noreen Castro Neutrophils/100 WBC (Bld) 59.6 % Normal 43.0-75.0 [facility] Comment on above: Performed By: #### U A #### [facility] [address] [place] [address] Dr. Noreen Castro Platelet mean volume (Bld) [Entitic vol] 9.9 fL Normal 9.5-13.5 [facility] Comment on above: Performed By: #### U A #### [facility] [address] [place] [address] Dr. Noreen Castro PLT 283 103/ul Normal 150-450 [facility] Comment on above: Performed By: #### U A #### [facility] [address] [place] [address] Dr. Noreen Castro RBC 4.00 106/ul Critically low 4.20-5.[address] [facility] Comment on above: Performed By: #### U A #### [facility] [address] [place] [address] Dr. Noreen Castro WBC 14.5 103/ul Critically high 4.0-11.[address] [facility] Comment on above: Performed By: #### U A #### [facility] [address] [place] [address] Dr. Noreen Castro CULTURE URINEon 02-11-2022 CULTURE [...] Trimethoprim/Sulfamethoxaz ole >=320 R F Normal [facility] Comment on above: Performed By: #### U RCX #### [facility] [address] [place] [address] Dr. Noreen Castro DRUG SCREEN RAPID (URINE)on 02-11-2022 AMP Negative Normal NEGATIVE [facility] Comment on above: Performed By: #### U A #### [facility] [address] [place] [address] Dr. Noreen Castro BAR Negative Normal NEGATIVE [facility] Comment on above: Performed By: #### U A #### [facility] [address] [place] [address] Dr. Noreen Castro BUP Negative Normal NEGATIVE [facility] Comment on above: Performed By: #### U A #### [facility] [address] [place] [address] Dr. Noreen Castro BZO Negative Normal NEGATIVE [facility] Comment on above: Performed By: #### U A #### [facility] [address] [place] [address] Dr. Noreen Castro VERONICA Negative Normal NEGATIVE [facility] Comment on above: Performed By: #### U A #### [facility] [address] [place] [address] Dr. Noreen Castro CUT-OFFS SEE BELOW Normal [facility] Comment on above: Result Comment: [...] ng/mL Performed By: #### U A #### [facility] [address] [place] [address] Dr. Noreen Castro DRUG CUT HEADER DRUG CLASS TEST SYST EM CUT-OFF CONCENTRATIONS ARE FOLLOWS: Normal [facility] Comment on above: Performed By: #### U A #### [facility] [address] [place] [address] Dr. Noreen Castro mAMP Negative Normal NEGATIVE [facility] Comment on above: Performed By: #### U A #### [facility] [address] [place] [address] Dr. Noreen Castro MTD Negative Normal NEGATIVE [facility] Comment on above: Performed By: #### U A #### [facility] [address] [place] [address] Dr. Noreen Castro OPI Negative Normal NEGATIVE [facility] Comment on above: Performed By: #### U A #### [facility] [address] [place] [address] Dr. Noreen Castro OXY Negative Normal NEGATIVE [facility] Comment on above: Performed By: #### U A #### [facility] [address] [place] [address] Dr. Noreen Castro PCP Negative Normal NEGATIVE [facility] Comment on above: Performed By: #### U A #### [facility] [address] [place] [address] Dr. Noreen Castro PPX Negative Normal NEGATIVE [facility] Comment on above: Performed By: #### U A #### [facility] [address] [place] [address] Dr. Noreen Castro TCA Positive Abnormal NEGATIVE [facility] Comment on above: Performed By: #### U A #### [facility] [address] [place] [address] Dr. Noreen Castro THC Negative Normal NEGATIVE [facility] Comment on above: Performed By: #### U A #### [facility] [address] [address] [address] Noreen Castro PROF 14(COMP METB)on 022 Albumin [Mass/Vol] 3.9 g/dL Normal 3.4-5.0 [facility] Comment on above: Performed By: #### C MP, DBIL #### [facility] [address] [place] [address] Dr. Noreen Castro Albumin/Globulin [Mass ratio] 0.9 {ratio} Normal [facility] Comment on above: Performed By: #### C MP, DBIL #### [facility] [address] [place] [address] Dr. Nroeen Castro ALP [Catalytic activity/Vol] 76 U/L Normal 46-116 [facility] Comment on above: Performed By: #### C MP, DBIL #### [facility] [address] [place] [address] Dr. Noreen Castro ALT [Catalytic activity/Vol] 39 U/L Normal 14-59 [facility] Comment on above: Performed By: #### C MP, DBIL #### [facility] [address] [place] [address] Dr. Noreen Castro Anion gap [Moles/Vol] 18.4 mmol/L Normal [facility] Comment on above: Performed By: #### C MP, DBIL #### [facility] [address] [place] [address] Dr. Noreen Castro AST [Catalytic activity/Vol] 30 U/L Normal 15-37 [facility] Comment on above: Performed By: #### C MP, DBIL #### [facility] [address] [place] [address] Dr. Noreen Castro Bilirubin [Mass/Vol] 0.4 mg/dL Normal 0.2-1.3 [facility] Comment on above: Performed By: #### C MP, DBIL #### [facility] [address] [place] [address] Dr. Noreen Castro Calcium [Mass/Vol] 9.2 mg/dL Normal 8.5-10.1 [facility] Comment on above: Performed By: #### C MP, DBIL #### [facility] [address] [place] [address] Dr. Noreen Castro Chloride [Moles/Vol] 99 mmol/L Normal 98-107 [facility] Comment on above: Performed By: #### C MP, DBIL #### [facility] [address] [place] [address] Dr. Noreen Castro CO2 [Moles/Vol] 22.2 mmol/L Normal 22.0-30.0 [facility] Comment on above: Performed By: #### C MP, DBIL #### [facility] [address] [place] [address] Dr. Noreen Castro Creatinine [Mass/Vol] 2.72 mg/dL Critically high 0.52-1.04 [facility] Comment on above: Performed By: #### C MP, DBIL #### [facility] [address] [place] [address] Dr. Noreen Castro EGFR-AF CANADIAN 20 mL/min/1.73m2 Critically low >=60 [facility] Comment on above: Performed By: #### C MP, DBIL #### [facility] [address] [place] [address] Dr. Noreen Castro EGFR-NON AF [place]DIAN 17 mL/min/1.73m2 Critically low >=60 [facility] Comment on above: Performed By: #### C MP, DBIL #### [facility] [address] [place] [address] Dr. Noreen Castro Globulin (S) [Mass/Vol] 4.3 g/dL Normal [facility] Comment on above: Performed By: #### C MP, DBIL #### [facility] [address] [place] [address] Dr. Noreen Castro Glucose [Mass/Vol] 143 mg/dL Critically high 74-106 T [facility] Comment on above: Performed By: #### C MP, DBIL #### [facility] [address] [place] [address] Dr. Noreen Castro Potassium [Moles/Vol] 5.6 mmol/L Critically high 3.4-5.0 [facility] Comment on above: Performed By: #### C MP, DBIL #### [facility] [address] [place] [address] Dr. Noreen Castro Protein [Mass/Vol] 8.2 g/dL Normal 6.1-8.2 [facility] Comment on above: Performed By: #### C MP, DBIL #### [facility] [address] [place] [address] Dr. Noreen Castro Sodium [Moles/Vol] 134 mmol/L Critically low 137-145 Th [facility] Comment on above: Performed By: #### C MP, DBIL #### [facility] [address] [place] [address] Dr. Noreen Castro Urea nitrogen [Mass/Vol] 36.0 mg/dL Critically high 7.0-18.0 [facility] Comment on above: Performed By: #### C MP, DBIL #### [facility] [address] [place] [address] Dr. Noreen Castro Urea nitrogen/Creatinin e [Mass ratio] 13.2 mg/mg Normal [facility] Comment on above: Performed By: #### C MP, DBIL #### [facility] [address] [place] [address] Dr. Noreen Castro UA RANDOMon 02-08-2022 Bilirubin Ql (U) Negative Normal NEGATIVE [facility] Comment on above: Performed By: #### U A #### [facility] [address] [place] [address] Dr. Noreen Castro Clarity (U) SL CLOUDY Abnormal CLEAR [facility] Comment on above: Performed By: #### U A #### [facility] [address] [place] [address] Dr. Noreen Castro Color (U) LT. YELLOW Normal YELLOW [facility] Comment on above: Performed By: #### U A #### [facility] [address] [place] [address] Dr. Noreen Castro Glucose Ql (U) Negative Normal NEGATIVE [facility] Comment on above: Performed By: #### U A #### [facility] [address] [place] [address] Dr. Noreen Castro Hemoglobin Ql (U) TRACE-INTACT Abnormal NEGATIVE [facility] Comment on above: Performed By: #### U A #### [facility] [address] [place] [address] Dr. Noreen Castro Ketones Ql (U) Negative Normal NEGATIVE [facility] Comment on above: Performed By: #### U A #### [facility] [address] [place] [address] Dr. Noreen Castro LEUKOCYTES MODERATE Abnormal NEGATIVE [facility] Comment on above: Performed By: #### U A #### [facility] [address] [place] [address] Dr. Noreen Castro Nitrite Ql (U) Positive Abnormal NEGATIVE [facility] Comment on above: Performed By: #### U A #### [facility] [address] [place] [address] Dr. Noreen Castro pH (U) 5.0 [pH] Normal 5-9 [facility] Comment on above: Performed By: #### U A #### [facility] [address] [place] [address] Dr. Noreen Castro SPEC GRAVITY 1.020 Normal 1.005-<=1.02 5 [facility] Comment on above: Performed By: #### U A #### [facility] [address] [place] [address] Dr. Noreen Castro UA PROTEIN TRACE Normal NEGATIVE/ TRACE [facility] Comment on above: Performed By: #### U A #### [facility] [address] [place] [address] Dr. Noreen Castro Urobilinogen Qn (U) 0.2 {Scarlett'U}/dL Normal 0.2 - 1.0 [facility] Comment on above: Performed By: #### U A #### [facility] [address] [place] [address] Dr. Noreen Castro CULTURE URINEon 02-01-2022 CULTURE URINE Culture Observations : No growth Normal [facility] Comment on above: Performed By: #### U RCX #### [facility] [address] [place] [address] Dr. Noreen Castro UA RANDOMon 02-01-2022 Bilirubin Ql (U) Negative Normal NEGATIVE [facility] Comment on above: Performed By: #### U A #### [facility] [address] [place] [address] Dr. Noreen Castro Clarity (U) CLEAR Normal CLEAR [facility] Comment on above: Performed By: #### U A #### [facility] [address] [place] [address] Dr. Noreen Castro Color (U) YELLOW Normal YELLOW [facility] Comment on above: Performed By: #### U A #### [facility] [address] [place] [address] Dr. Noreen Castro Glucose Ql (U) Negative Normal NEGATIVE [facility] Comment on above: Performed By: #### U A #### [facility] [address] [place] [address] Dr. Noreen Castro Hemoglobin Ql (U) SMALL Abnormal NEGATIVE [facility] Comment on above: Performed By: #### U A #### [facility] [address] [place] [address] Dr. Noreen aCstro Ketones Ql (U) Negative Normal NEGATIVE [facility] Comment on above: Performed By: #### U A #### [facility] [address] [place] [address] Dr. Noreen Castro LEUKOCYTES Negative Normal NEGATIVE [facility] Comment on above: Performed By: #### U A #### [facility] [address] [place] [address] Dr. Noreen Castro Nitrite Ql (U) Negative Normal NEGATIVE [facility] Comment on above: Performed By: #### U A #### [facility] [address] [place] [address] Dr. oNreen Castro pH (U) 5.0 [pH] Normal 5-9 [facility] Comment on above: Performed By: #### U A #### [facility] [address] [address] [address] Noreen Castro SPEC GRAVITY 1.025 Normal 1.005-<=1.02 5 [facility] Comment on above: Performed By: #### U A #### [facility] [address] [address] [address] Noreen Castro UA PROTEIN Negative Normal NEGATIVE/ TRACE [facility] Comment on above: Performed By: #### U A #### [facility] [address] [address] [address] Noreen Castro Urobilinogen Qn (U) 0.2 {Scarlett'U}/dL Normal 0.2 - 1.0 [facility] Comment on above: Performed By: #### U A #### [facility] [address] [address] [address] Noreen Castro POC GLUCOSE LABon 07-19-2018 Glucose mass conc 97 mg/dL Normal 70-100 [facility] Comment on above: Performed By: #### 0 0121 ####[facility] [facility] [place] [address], [facility] Glucose mass conc 110 mg/dL High 70-100 [facility] Comment on above: Performed By: #### 0 0121 ####[facility] [facility] [place] [address], [facility] Glucose mass conc 93 mg/dL Normal 70-100 [facility] Comment on above: Performed By: #### 0 0121 ####[facility] [facility] [place] [address], [facility] Glucose mass conc 92 mg/dL Normal 70-100 [facility] Comment on above: Performed By: #### 0 0121 ####[facility] [facility] [place] [address], [facility] CBC COMPLETE BLOOD COUNTon 0 07-18-2018 Erythrocyte distribution width Auto Ratio (RBC) 14.0 % Normal 11.5-15.0 [facility] Comment on above: Order Comment: No: D o not add to previous draw Performed By: #### 0 0121 ####[facility] Hematocrit Auto Volume Fraction (Bld) 32.3 % Low 36.0-45.0 [facility] Comment on above: Order Comment: No: D o not add to previous draw Performed By: #### 0 0121 ####[facility] Hemoglobin mass conc (Bld) 10.1 g/dL Low 12.0-15.0 [facility] Comment on above: Order Comment: No: D o not add to previous draw Performed By: #### 0 0121 ####[facility] MCH Auto Entitic mass (RBC) 29.6 pg Normal 27.0-33.0 [facility] Comment on above: Order Comment: No: D o not add to previous draw Performed By: #### 0 0121 ####[facility] MCHC Auto mass conc (RBC) 31.3 g/dL Low 32.0-35.0 [facility] Comment on above: Order Comment: No: D o not add to previous draw Performed By: #### 0 0121 ####[facility] MCV Auto Entitic volume (RBC) 94.7 fL Normal 82.0-98.0 [facility] Comment on above: Order Comment: No: D o not add to previous draw Performed By: #### 0 0121 ####[facility] Nucleated RBC/100 WBC Ratio (Bld) 0 % Normal 0-0 [facility] Comment on above: Order Comment: No: D o not add to previous draw Performed By: #### 0 0121 ####[facility] [place] [address], [facility] PLAT CNT 372 10*3/uL Normal 150-400 [facility] Comment on above: Order Comment: No: D o not add to previous draw Performed By: #### 0 0121 ####[facility] [address], [facility] RBC Auto #/vol (Bld) 3.41 10*6/uL Low 3.80-5.00 [facility] Comment on above: Order Comment: No: D o not add to previous draw Performed By: #### 0 0121 ####[facility] [address], [facility] WBC Auto #/vol (Bld) 8.69 10*3/uL Normal 4.00-10.60 [facility] Comment on above: Order Comment: No: D o not add to previous draw Performed By: #### 0 0121 ####[facility] [address], [facility] POC GLUCOSE LABon 07-18-2018 Glucose mass conc 101 mg/dL High 70-100 [facility] Comment on above: Performed By: #### 0 0121 ####[facility] [place] [address], [facility] Glucose mass conc 117 mg/dL High 70-100 [facility] Comment on above: Performed By: #### 0 0121 ####[facility] [address], [facility] Glucose mass conc 94 mg/dL Normal 70-100 [facility] Comment on above: Performed By: #### 0 0121 ####[facility] [address], [facility] Glucose mass conc 92 mg/dL Normal 70-100 [facility] Comment on above: Performed By: #### 0 0121 ####[facility] [address], [facility] POC GLUCOSE LABon 07-17-2018 Glucose mass conc 105 mg/dL High 70-100 [facility] Comment on above: Performed By: #### 0 0121 ####[facility] [address], [facility] Glucose mass conc 126 mg/dL High 70-100 [facility] Comment on above: Performed By: #### 0 0121 ####[facility] [facility] [place] [address], [facility] Glucose mass conc 118 mg/dL High 70-100 [facility] Comment on above: Performed By: #### 0 0121 ####[facility] [facility] [place] [address], [facility] Glucose mass conc 99 mg/dL Normal 70-100 [facility] Comment on above: Performed By: #### 0 0121 ####[facility] [facility] [place] [address], [facility] BASIC METABOLIC PANELon Calcium mass conc 9.4 mg/dL Normal 8.6-10.3 [facility] Comment on above: Order Comment: No: D o not add to previous draw Performed By: #### 0 0121 ####[facility] [facility] [place] [address], [facility] Chloride molar conc 104 mmol/L Normal 98-107 [facility] Comment on above: Order Comment: No: D o not add to previous draw Performed By: #### 0 0121 ####[facility] [place] [address], [facility] CO2 molar conc 24 mmol/L Normal 21-31 [facility] Comment on above: Order Comment: No: D o not add to previous draw Performed By: #### 0 0121 ####[facility] [facility] [place] [address], [facility] Creatinine mass conc 1.11 mg/dL Normal 0.60-1.20 [facility] Comment on above: Order Comment: No: D o not add to previous draw Performed By: #### 0 0121 ####[facility] [facility] [place] [address], [facility] GFR/1.73 sq M predicted among blacks MDRD vol rate/area (S/P/Bld) 57 ml/min/1.73sq m Abnormal >60 [facility] Comment on above: Order Comment: No: D o not add to previous draw Result Comment: Calc ulation may not be valid for patients over 70 years Performed By: #### 0 0121 ####[facility] [facility] [place] [address], [facility] GFR/1.73 sq M predicted among non-blacks MDRD vol rate/area (S/P/Bld) 47 ml/min/1.73sq m Abnormal >60 [facility] Comment on above: Order Comment: No: D o not add to previous draw Result Comment: Calc ulation may not be valid for patients over 70 years Performed By: #### 0 0121 ####[facility] [facility] [place] [address], [facility] Glucose mass conc 104 mg/dL High 70-100 [facility] Comment on above: Order Comment: No: D o not add to previous draw Performed By: #### 0 0121 ####[facility] [facility] [place] [address], [facility] Potassium molar conc 4.6 mmol/L Normal 3.5-5.1 [facility] Comment on above: Order Comment: No: D o not add to previous draw Performed By: #### 0 0121 ####[facility] [facility] [place] [address], [place] Sodium molar conc 135 mmol/L Low 136-145 [facility] Comment on above: Order Comment: No: D o not add to previous draw Performed By: #### 0 0121 ####[place] [id number] [address] Urea nitrogen mass conc 22 mg/dL Normal 7-25 [facility] Comment on above: Order Comment: No: D o not add to previous draw Performed By: #### 0 0121 ####[facility] CBC W/DIFFon 07-16-2018 ABS BASOPHILS 0.1 10*3/uL Normal 0.0-0.2 [facility] Comment on above: Order Comment: No: D o not add to previous draw Performed By: #### 0 0121 ####[facility] ABS IMM GRANS 0.3 10*3/uL High 0.0-0.2 [facility] Comment on above: Order Comment: No: D o not add to previous draw Performed By: #### 0 0121 ####[place] [id number] [address] ABS NEUTROPHILS 6.5 10*3/uL Normal 1.6-7.6 [facility] Comment on above: Order Comment: No: D o not add to previous draw Performed By: #### 0 0121 ####[facility] Basophils Auto #/vol (Bld) 0.6 % Normal 0.0-1.0 [facility] Comment on above: Order Comment: No: D o not add to previous draw Performed By: #### 0 0121 ####[facility] Eosinophils Auto #/vol (Bld) 0.3 10*3/uL Normal 0.0-0.5 [facility] Comment on above: Order Comment: No: D o not add to previous draw Performed By: #### 0 0121 ####[facility] Eosinophils/100 WBC Auto (Bld) 2.5 % Normal 0.0-6.0 [facility] Comment on above: Order Comment: No: D o not add to previous draw Performed By: #### 0 0121 ####[facility] Erythrocyte distribution width Auto Ratio (RBC) 14.4 % Normal 11.5-15.0 [facility] Comment on above: Order Comment: No: D o not add to previous draw Performed By: #### 0 0121 ####[facility] Hematocrit Auto Volume Fraction (Bld) 31.7 % Low 36.0-45.0 [facility] Comment on above: Order Comment: No: D o not add to previous draw Performed By: #### 0 0121 ####[facility] Hemoglobin mass conc (Bld) 10.1 g/dL Low 12.0-15.0 [facility] Comment on above: Order Comment: No: D o not add to previous draw Performed By: #### 0 0121 ####[facility] IMMATURE GRANS 2.8 % High 0.0-1.0 [facility] Comment on above: Order Comment: No: D o not add to previous draw Performed By: #### 0 0121 ####[facility] Lymphocytes Auto #/vol (Bld) 2.4 10*3/uL Normal 1.2-4.0 [facility] Comment on above: Order Comment: No: D o not add to previous draw Performed By: #### 0 0121 ####[facility] Lymphocytes/100 WBC Auto (Bld) 22.1 % Normal 20.0-45.0 [facility] Comment on above: Order Comment: No: D o not add to previous draw Performed By: #### 0 0121 ####[facility] MCH Auto Entitic mass (RBC) 30.3 pg Normal 27.0-33.0 [facility] Comment on above: Order Comment: No: D o not add to previous draw Performed By: #### 0 0121 ####[facility] MCHC Auto mass conc (RBC) 31.9 g/dL Low 32.0-35.0 [facility] Comment on above: Order Comment: No: D o not add to previous draw Performed By: #### 0 0121 ####[place] [id number] [address] MCV Auto Entitic volume (RBC) 95.2 fL Normal 82.0-98.0 [facility] Comment on above: Order Comment: No: D o not add to previous draw Performed By: #### 0 0121 ####[facility] Monocytes Auto #/vol (Bld) 1.2 10*3/uL High 0.1-1.0 [facility] Comment on above: Order Comment: No: D o not add to previous draw Performed By: #### 0 0121 ####[facility] MONOS 11.0 % Normal 5.0-12.0 [facility] Comment on above: Order Comment: No: D o not add to previous draw Performed By: #### 0 0121 ####[facility] [address] [address], [facility] Neutrophils/100 WBC Auto (Bld) 61.0 % Normal 40.0-72.0 [facility] Comment on above: Order Comment: No: D o not add to previous draw Performed By: #### 0 0121 ####[facility] [facility].[address] Nucleated RBC/100 WBC Ratio (Bld) 0 % Normal 0-0 [facility] Comment on above: Order Comment: No: D o not add to previous draw Performed By: #### 0 0121 ####[facility] [facility] [place] [address], [facility] PLAT CNT 450 10*3/uL High 150-400 [facility] Comment on above: Order Comment: No: D o not add to previous draw Performed By: #### 0 0121 ####[facility] [facility].[address] RBC Auto #/vol (Bld) 3.33 10*6/uL Low 3.80-5.00 [facility] Comment on above: Order Comment: No: D o not add to previous draw Performed By: #### 0 0121 ####[facility] [address], [facility] WBC Auto #/vol (Bld) 10.68 10*3/uL High 4.00-10.60 [facility] Comment on above: Order Comment: No: D o not add to previous draw Performed By: #### 0 0121 ####[facility] MAGNESIUM BLOODon 07-16-2018 Magnesium mass conc 2.3 mg/dL Normal 1.9-2.7 [facility] Comment on above: Order Comment: No: D o not add to previous draw Performed By: #### 0 0121 ####[facility] [place] [address], [facility] PHOSPHORUS BLOODon 8 Phosphate mass conc 3.6 mg/dL Normal 2.5-5.0 [facility] Comment on above: Order Comment: No: D o not add to previous draw Performed By: #### 0 0121 ####[facility] [address], [facility] POC GLUCOSE LABon 07-16-2018 Glucose mass conc 111 mg/dL High 70-100 [facility] Comment on above: Performed By: #### 0 0121 ####[facility] [place] [address], [facility] Glucose mass conc 159 mg/dL High 70-100 [facility] Comment on above: Performed By: #### 0 0121 ####[facility] [place] [address], [facility] Glucose mass conc 103 mg/dL High 70-100 [facility] Comment on above: Performed By: #### 0 0121 ####[facility] [address], [facility] Glucose mass conc 99 mg/dL Normal 70-100 [facility] Comment on above: Performed By: #### 0 0121 ####[facility] [address], [facility] BASIC METABOLIC PANELon Calcium mass conc 8.8 mg/dL Normal 8.6-10.3 [facility] Comment on above: Order Comment: No: D o not add to previous draw Performed By: #### 0 0121 ####[facility] [place] [address], [facility] Chloride molar conc 106 mmol/L Normal 98-107 [facility] Comment on above: Order Comment: No: D o not add to previous draw Performed By: #### 0 0121 ####[facility] [facility] [address], [facility] CO2 molar conc 23 mmol/L Normal 21-31 [facility] Comment on above: Order Comment: No: D o not add to previous draw Performed By: #### 0 0121 ####[facility] [facility] [place] [address], [facility] Creatinine mass conc 1.01 mg/dL Normal 0.60-1.20 [facility] Comment on above: Order Comment: No: D o not add to previous draw Performed By: #### 0 0121 ####[facility] [facility] [place] [address], [facility] GFR/1.73 sq M predicted among blacks MDRD vol rate/area (S/P/Bld) mL/min/{1.73_m2} Normal >60 [facility] Comment on above: Order Comment: No: D o not add to previous draw Result Comment: Calc ulation may not be valid for patients over 70 years Performed By: #### 0 0121 ####[facility] [facility] [place] [place] [address], [facility] GFR/1.73 sq M predicted among non-blacks MDRD vol rate/area (S/P/Bld) 53 ml/min/1.73sq m Abnormal >60 [facility] Comment on above: Order Comment: No: D o not add to previous draw Result Comment: Calc ulation may not be valid for patients over 70 years Performed By: #### 0 0121 ####[facility] [facility] [place] [address], [facility] Glucose mass conc 139 mg/dL High 70-100 [facility] Comment on above: Order Comment: No: D o not add to previous draw Performed By: #### 0 0121 ####[facility] [facility].[address] Potassium molar conc 4.1 mmol/L Normal 3.5-5.1 [facility] Comment on above: Order Comment: No: D o not add to previous draw Performed By: #### 0 0121 ####[facility] [facility].[address] Sodium molar conc 136 mmol/L Normal 136-145 [facility] Comment on above: Order Comment: No: D o not add to previous draw Performed By: #### 0 0121 ####[facility] Urea nitrogen mass conc 26 mg/dL High 7-25 [facility] Comment on above: Order Comment: No: D o not add to previous draw Performed By: #### 0 0121 ####[facility] CBC W/DIFFon 07-15-2018 ABS BASOPHILS 0.0 10*3/uL Normal 0.0-0.2 [facility] Comment on above: Order Comment: No: D o not add to previous draw Performed By: #### 0 0121 ####[facility] ABS IMM GRANS 0.3 10*3/uL High 0.0-0.2 [facility] Comment on above: Order Comment: No: D o not add to previous draw Performed By: #### 0 0121 ####[facility] ABS NEUTROPHILS 5.7 10*3/uL Normal 1.6-7.6 [facility] Comment on above: Order Comment: No: D o not add to previous draw Performed By: #### 0 0121 ####[facility] [facility].[address] Basophils Auto #/vol (Bld) 0.4 % Normal 0.0-1.0 [facility] Comment on above: Order Comment: No: D o not add to previous draw Performed By: #### 0 0121 ####[facility] Eosinophils Auto #/vol (Bld) 0.2 10*3/uL Normal 0.0-0.5 [facility] Comment on above: Order Comment: No: D o not add to previous draw Performed By: #### 0 0121 ####[facility] Eosinophils/100 WBC Auto (Bld) 2.1 % Normal 0.0-6.0 [facility] Comment on above: Order Comment: No: D o not add to previous draw Performed By: #### 0 0121 ####[facility] Erythrocyte distribution width Auto Ratio (RBC) 14.1 % Normal 11.5-15.0 [facility] Comment on above: Order Comment: No: D o not add to previous draw Performed By: #### 0 0121 ####[facility] Hematocrit Auto Volume Fraction (Bld) 28.7 % Low 36.0-45.0 [facility] Comment on above: Order Comment: No: D o not add to previous draw Performed By: #### 0 0121 ####[facility] Hemoglobin mass conc (Bld) 9.1 g/dL Low 12.0-15.0 [facility] Comment on above: Order Comment: No: D o not add to previous draw Performed By: #### 0 0121 ####[facility] [place] [address] IMMATURE GRANS 3.4 % High 0.0-1.0 [facility] Comment on above: Order Comment: No: D o not add to previous draw Performed By: #### 0 0121 ####[facility] Lymphocytes Auto #/vol (Bld) 2.6 10*3/uL Normal 1.2-4.0 [facility] Comment on above: Order Comment: No: D o not add to previous draw Performed By: #### 0 0121 ####[facility] Lymphocytes/100 WBC Auto (Bld) 25.8 % Normal 20.0-45.0 [facility] Comment on above: Order Comment: No: D o not add to previous draw Performed By: #### 0 0121 ####[place] [id number] [address] MCH Auto Entitic mass (RBC) 30.4 pg Normal 27.0-33.0 [facility] Comment on above: Order Comment: No: D o not add to previous draw Performed By: #### 0 0121 ####[place] [id number] MCHC Auto mass conc (RBC) 31.7 g/dL Low 32.0-35.0 [facility] Comment on above: Order Comment: No: D o not add to previous draw Performed By: #### 0 0121 ####[facility] MCV Auto Entitic volume (RBC) 96.0 fL Normal 82.0-98.0 [facility] Comment on above: Order Comment: No: D o not add to previous draw Performed By: #### 0 0121 ####[address] Monocytes Auto #/vol (Bld) 1.0 10*3/uL Normal 0.1-1.0 [facility] Comment on above: Order Comment: No: D o not add to previous draw Performed By: #### 0 0121 ####[facility] MONOS 10.2 % Normal 5.0-12.0 [facility] Comment on above: Order Comment: No: D o not add to previous draw Performed By: #### 0 0121 ####[facility] [facility].[address] Neutrophils/100 WBC Auto (Bld) 58.1 % Normal 40.0-72.0 [facility] Comment on above: Order Comment: No: D o not add to previous draw Performed By: #### 0 0121 ####[facility] [facility].[address] Nucleated RBC/100 WBC Ratio (Bld) 0 % Normal 0-0 [facility] Comment on above: Order Comment: No: D o not add to previous draw Performed By: #### 0 0121 ####[facility] [facility] [place] [address], [facility] PLAT CNT 447 10*3/uL High 150-400 [facility] Comment on above: Order Comment: No: D o not add to previous draw Performed By: #### 0 0121 ####[facility] [facility].[address] RBC Auto #/vol (Bld) 2.99 10*6/uL Low 3.80-5.00 [facility] Comment on above: Order Comment: No: D o not add to previous draw Performed By: #### 0 0121 ####[facility] WBC Auto #/vol (Bld) 9.87 10*3/uL Normal 4.00-10.60 [facility] Comment on above: Order Comment: No: D o not add to previous draw Performed By: #### 0 0121 ####[facility] [place] [address], [facility] MAGNESIUM BLOODon 07-15-2018 Magnesium mass conc 1.6 mg/dL Low 1.9-2.7 [facility] Comment on above: Order Comment: No: D o not add to previous draw Performed By: #### 0 0121 ####[facility] [place] [address], [facility] PHOSPHORUS BLOODon 8 Phosphate mass conc 3.2 mg/dL Normal 2.5-5.0 [facility] Comment on above: Order Comment: No: D o not add to previous draw Performed By: #### 0 0121 ####[facility] [place] [address], [facility] POC GLUCOSE LABon 07-15-2018 Glucose mass conc 109 mg/dL High 70-100 [facility] Comment on above: Performed By: #### 0 0121 ####[facility] [place] [address], [facility] Glucose mass conc 154 mg/dL High 70-100 [facility] Comment on above: Performed By: #### 0 0121 ####[facility] [place] [address], [facility] Glucose mass conc 156 mg/dL High 70-100 [facility] Comment on above: Performed By: #### 0 0121 ####[facility] [place] [address], [facility] Glucose mass conc 166 mg/dL High 70-100 [facility] Comment on above: Performed By: #### 0 0121 ####[facility] [place] [address], [facility] BASIC METABOLIC PANELon Calcium mass conc 9.6 mg/dL Normal 8.6-10.3 [facility] Comment on above: Order Comment: No: D o not add to previous draw Performed By: #### 0 0121 ####[facility] [place] [address], [facility] Chloride molar conc 105 mmol/L Normal 98-107 [facility] Comment on above: Order Comment: No: D o not add to previous draw Performed By: #### 0 0121 ####[facility] [place] [address], [place] CO2 molar conc 21 mmol/L Normal 21-31 [facility] Comment on above: Order Comment: No: D o not add to previous draw Performed By: #### 0 0121 ####[facility] [facility] [place] [address], [facility] Creatinine mass conc 1.16 mg/dL Normal 0.60-1.20 [facility] Comment on above: Order Comment: No: D o not add to previous draw Performed By: #### 0 0121 ####[facility] [facility] [place] [address], [facility] GFR/1.73 sq M predicted among blacks MDRD vol rate/area (S/P/Bld) 54 ml/min/1.73sq m Abnormal >60 [facility] Comment on above: Order Comment: No: D o not add to previous draw Result Comment: Calc ulation may not be valid for patients over 70 years Performed By: #### 0 0121 ####[facility] [facility] [place] [address], [facility] GFR/1.73 sq M predicted among non-blacks MDRD vol rate/area (S/P/Bld) 45 ml/min/1.73sq m Abnormal >60 [facility] Comment on above: Order Comment: No: D o not add to previous draw Result Comment: Calc ulation may not be valid for patients over 70 years Performed By: #### 0 0121 ####[facility] Glucose mass conc 172 mg/dL High 70-100 [facility] Comment on above: Order Comment: No: D o not add to previous draw Performed By: #### 0 0121 ####[facility] [facility].[address] Potassium molar conc 4.9 mmol/L Normal 3.5-5.1 [facility] Comment on above: Order Comment: No: D o not add to previous draw Performed By: #### 0 0121 ####[facility] [facility].[address] Sodium molar conc 132 mmol/L Low 136-145 [facility] Comment on above: Order Comment: No: D o not add to previous draw Performed By: #### 0 0121 ####[facility] [facility].[address] Urea nitrogen mass conc 28 mg/dL High 7-25 [facility] Comment on above: Order Comment: No: D o not add to previous draw Performed By: #### 0 0121 ####[address] CBC W/DIFFon 07-14-2018 ABS BASOPHILS 0.1 10*3/uL Normal 0.0-0.2 [facility] Comment on above: Order Comment: No: D o not add to previous draw Performed By: #### 0 0121 ####[facility] [facility].[address] ABS NEUTROPHILS 9.2 10*3/uL High 1.6-7.6 [facility] Comment on above: Order Comment: No: D o not add to previous draw Performed By: #### 0 0121 ####[facility] [facility].[address] Basophils Auto #/vol (Bld) 0.9 % Normal 0.0-1.0 [facility] Comment on above: Order Comment: No: D o not add to previous draw Performed By: #### 0 0121 ####[facility] [facility].[address] Eosinophils Auto #/vol (Bld) 0.4 10*3/uL Normal 0.0-0.5 [facility] Comment on above: Order Comment: No: D o not add to previous draw Performed By: #### 0 0121 ####[facility] Eosinophils/100 WBC Auto (Bld) 2.7 % Normal 0.0-6.0 [facility] Comment on above: Order Comment: No: D o not add to previous draw Performed By: #### 0 0121 ####[facility] Erythrocyte distribution width Auto Ratio (RBC) 14.4 % Normal 11.5-15.0 [facility] Comment on above: Order Comment: No: D o not add to previous draw Performed By: #### 0 0121 ####[facility] Hematocrit Auto Volume Fraction (Bld) 30.8 % Low 36.0-45.0 [facility] Comment on above: Order Comment: No: D o not add to previous draw Performed By: #### 0 0121 ####[facility] Hemoglobin mass conc (Bld) 9.7 g/dL Low 12.0-15.0 [facility] Comment on above: Order Comment: No: D o not add to previous draw Performed By: #### 0 0121 ####[facility] [place] [address], [facility] Lymphocytes Auto #/vol (Bld) 2.5 10*3/uL Normal 1.2-4.0 [facility] Comment on above: Order Comment: No: D o not add to previous draw Performed By: #### 0 0121 ####[facility] Lymphocytes/100 WBC Auto (Bld) 18.2 % Low 20.0-45.0 [facility] Comment on above: Order Comment: No: D o not add to previous draw Performed By: #### 0 0121 ####[facility] MCH Auto Entitic mass (RBC) 30.6 pg Normal 27.0-33.0 [facility] Comment on above: Order Comment: No: D o not add to previous draw Performed By: #### 0 0121 ####[facility] MCHC Auto mass conc (RBC) 31.5 g/dL Low 32.0-35.0 [facility] Comment on above: Order Comment: No: D o not add to previous draw Performed By: #### 0 0121 ####[facility] MCV Auto Entitic volume (RBC) 97.2 fL Normal 82.0-98.0 [facility] Comment on above: Order Comment: No: D o not add to previous draw Performed By: #### 0 0121 ####[facility] Monocytes Auto #/vol (Bld) 1.3 10*3/uL High 0.1-1.0 [facility] Comment on above: Order Comment: No: D o not add to previous draw Performed By: #### 0 0121 ####[facility] MONOS 10.0 % Normal 5.0-12.0 [facility] Comment on above: Order Comment: No: D o not add to previous draw Performed By: #### 0 0121 ####[facility] [place] [address], [facility] Neutrophils/100 WBC Auto (Bld) 68.2 % Normal 40.0-72.0 [facility] Comment on above: Order Comment: No: D o not add to previous draw Performed By: #### 0 0121 ####[facility] [facility].[address] NRBC SCAN Present Normal [facility] Comment on above: Order Comment: No: D o not add to previous draw Performed By: #### 0 0121 ####[facility] [facility].[address] Nucleated RBC/100 WBC Ratio (Bld) 0 % Normal 0-0 [facility] Comment on above: Order Comment: No: D o not add to previous draw Performed By: #### 0 0121 ####[facility] [facility].[address] PLAT CNT 509 10*3/uL High 150-400 [facility] Comment on above: Order Comment: No: D o not add to previous draw Performed By: #### 0 0121 ####[facility] [facility].[address] RBC Auto #/vol (Bld) 3.17 10*6/uL Low 3.80-5.00 [facility] Comment on above: Order Comment: No: D o not add to previous draw Performed By: #### 0 0121 ####[facility] [place] [address].[address] WBC Auto #/vol (Bld) 13.48 10*3/uL High 4.00-10.60 [facility] Comment on above: Order Comment: No: D o not add to previous draw Performed By: #### 0 0121 ####[facility] [place] [address], [facility] MAGNESIUM BLOODon 07-14-2018 Magnesium mass conc 2.2 mg/dL Normal 1.9-2.7 [facility] Comment on above: Order Comment: No: D o not add to previous draw Performed By: #### 0 0121 ####[facility] [place] [address], [facility] PHOSPHORUS BLOODon 8 Phosphate mass conc 3.8 mg/dL Normal 2.5-5.0 [facility] Comment on above: Order Comment: No: D o not add to previous draw Performed By: #### 0 0121 ####[facility] [place] [address], [facility] POC GLUCOSE LABon 07-14-2018 Glucose mass conc 169 mg/dL High 70-100 [facility] Comment on above: Performed By: #### 0 0121 ####[facility] [place] [address], [facility] Glucose mass conc 188 mg/dL High 70-100 [facility] Comment on above: Performed By: #### 0 0121 ####[facility] [place] [address], [facility] Glucose mass conc 187 mg/dL High 70-100 [facility] Comment on above: Performed By: #### 0 0121 ####[facility] [place] [address], [facility] Glucose mass conc 123 mg/dL High 70-100 [facility] Comment on above: Performed By: #### 0 0121 ####[facility] [place] [address], [facility] BASIC METABOLIC PANELon Calcium mass conc 9.2 mg/dL Normal 8.6-10.3 [facility] Comment on above: Order Comment: No: D o not add to previous draw Performed By: #### 0 0121 ####[facility] [place] [address], [facility] Chloride molar conc 104 mmol/L Normal 98-107 [facility] Comment on above: Order Comment: No: D o not add to previous draw Performed By: #### 0 0121 ####[facility] [place] [address], [place] CO2 molar conc 22 mmol/L Normal 21-31 [facility] Comment on above: Order Comment: No: D o not add to previous draw Performed By: #### 0 0121 ####[facility] [facility] [place] [address], [facility] Creatinine mass conc 1.30 mg/dL High 0.60-1.20 [facility] Comment on above: Order Comment: No: D o not add to previous draw Performed By: #### 0 0121 ####[facility] [facility] [place] [address], [facility] GFR/1.73 sq M predicted among blacks MDRD vol rate/area (S/P/Bld) 47 ml/min/1.73sq m Abnormal >60 [facility] Comment on above: Order Comment: No: D o not add to previous draw Result Comment: Calc ulation may not be valid for patients over 70 years Performed By: #### 0 0121 ####[facility] [facility] [place] [address], [facility] GFR/1.73 sq M predicted among non-blacks MDRD vol rate/area (S/P/Bld) 39 ml/min/1.73sq m Abnormal >60 [facility] Comment on above: Order Comment: No: D o not add to previous draw Result Comment: Calc ulation may not be valid for patients over 70 years Performed By: #### 0 0121 ####[facility] Glucose mass conc 160 mg/dL High 70-100 [facility] Comment on above: Order Comment: No: D o not add to previous draw Performed By: #### 0 0121 ####[facility] [facility].[address] Potassium molar conc 4.7 mmol/L Normal 3.5-5.1 [facility] Comment on above: Order Comment: No: D o not add to previous draw Performed By: #### 0 0121 ####[facility] [facility].[address] Sodium molar conc 133 mmol/L Low 136-145 [facility] Comment on above: Order Comment: No: D o not add to previous draw Performed By: #### 0 0121 ####[facility] [facility].[address] Urea nitrogen mass conc 32 mg/dL High 7-25 [facility] Comment on above: Order Comment: No: D o not add to previous draw Performed By: #### 0 0121 ####[address] CBC W/DIFFon 07-13-2018 ABS BASOPHILS 0.1 10*3/uL Normal 0.0-0.2 [facility] Comment on above: Order Comment: No: D o not add to previous draw Performed By: #### 0 0121 ####[facility] [facility].[address] ABS NEUTROPHILS 7.1 10*3/uL Normal 1.6-7.6 [facility] Comment on above: Order Comment: No: D o not add to previous draw Performed By: #### 0 0121 ####[facility] [facility].[address] Basophils Auto #/vol (Bld) 1.0 % Normal 0.0-1.0 [facility] Comment on above: Order Comment: No: D o not add to previous draw Performed By: #### 0 0121 ####[facility] Eosinophils Auto #/vol (Bld) 0.1 10*3/uL Normal 0.0-0.5 [facility] Comment on above: Order Comment: No: D o not add to previous draw Performed By: #### 0 0121 ####[facility] [facility].[address] Eosinophils/100 WBC Auto (Bld) 1.0 % Normal 0.0-6.0 [facility] Comment on above: Order Comment: No: D o not add to previous draw Performed By: #### 0 0121 ####[facility] [facility].[address] Erythrocyte distribution width Auto Ratio (RBC) 14.4 % Normal 11.5-15.0 [facility] Comment on above: Order Comment: No: D o not add to previous draw Performed By: #### 0 0121 ####[facility] [facility].[address] Hematocrit Auto Volume Fraction (Bld) 30.2 % Low 36.0-45.0 [facility] Comment on above: Order Comment: No: D o not add to previous draw Performed By: #### 0 0121 ####[facility] [facility].[address] Hemoglobin mass conc (Bld) 9.3 g/dL Low 12.0-15.0 [facility] Comment on above: Order Comment: No: D o not add to previous draw Performed By: #### 0 0121 ####[facility] [place] [address], [facility] Lymphocytes Auto #/vol (Bld) 2.7 10*3/uL Normal 1.2-4.0 [facility] Comment on above: Order Comment: No: D o not add to previous draw Performed By: #### 0 0121 ####[facility] Lymphocytes/100 WBC Auto (Bld) 23.3 % Normal 20.0-45.0 [facility] Comment on above: Order Comment: No: D o not add to previous draw Performed By: #### 0 0121 ####[facility] MCH Auto Entitic mass (RBC) 30.3 pg Normal 27.0-33.0 [facility] Comment on above: Order Comment: No: D o not add to previous draw Performed By: #### 0 0121 ####[facility] MCHC Auto mass conc (RBC) 30.8 g/dL Low 32.0-35.0 [facility] Comment on above: Order Comment: No: D o not add to previous draw Performed By: #### 0 0121 ####[facility] MCV Auto Entitic volume (RBC) 98.4 fL High 82.0-98.0 [facility] Comment on above: Order Comment: No: D o not add to previous draw Performed By: #### 0 0121 ####[facility] METAMYELO 1.9 % High 0.0-0.0 [facility] Comment on above: Order Comment: No: D o not add to previous draw Performed By: #### 0 0121 ####[facility] [place] [address] Monocytes Auto #/vol (Bld) 1.0 10*3/uL Normal 0.1-1.0 [facility] Comment on above: Order Comment: No: D o not add to previous draw Performed By: #### 0 0121 ####[facility] [place] [address], [facility] MONOS 8.7 % Normal 5.0-12.0 [facility] Comment on above: Order Comment: No: D o not add to previous draw Performed By: #### 0 0121 ####[facility] [facility] [place] [address], [facility] MYELOS 3.9 % High .0-.0 [facility] Comment on above: Order Comment: No: D o not add to previous draw Performed By: #### 0 0121 ####[facility] [facility].[address] Neutrophils/100 WBC Auto (Bld) 60.2 % Normal 40.0-72.0 [facility] Comment on above: Order Comment: No: D o not add to previous draw Performed By: #### 0 0121 ####[facility] [facility].[address] Nucleated RBC/100 WBC Ratio (Bld) 0 % Normal 0-0 [facility] Comment on above: Order Comment: No: D o not add to previous draw Performed By: #### 0 0121 ####[facility] [facility] [place] [address], [facility] PLAT CNT 435 10*3/uL High 150-400 [facility] Comment on above: Order Comment: No: D o not add to previous draw Performed By: #### 0 0121 ####[facility] [place] [address], [facility] RBC Auto #/vol (Bld) 3.07 10*6/uL Low 3.80-5.00 [facility] Comment on above: Order Comment: No: D o not add to previous draw Performed By: #### 0 0121 ####[facility] [facility] [place] [address], [facility] WBC Auto #/vol (Bld) 11.73 10*3/uL High 4.00-10.60 [facility] Comment on above: Order Comment: No: D o not add to previous draw Performed By: #### 0 0121 ####[facility] [facility] [place] [address], [facility] MAGNESIUM BLOODon 07-13-2018 Magnesium mass conc 1.8 mg/dL Low 1.9-2.7 [facility] Comment on above: Order Comment: No: D o not add to previous draw Performed By: #### 0 0121 ####[facility] [facility] [place] [address], [facility] PHOSPHORUS BLOODon 8 Phosphate mass conc 3.8 mg/dL Normal 2.5-5.0 [facility] Comment on above: Order Comment: No: D o not add to previous draw Performed By: #### 0 0121 ####[facility] [facility].[address] POC GLUCOSE LABon 07-13-2018 Glucose mass conc 147 mg/dL High 70-100 [facility] Comment on above: Performed By: #### 0 0121 ####[facility] [facility] [place] [address], [facility] Glucose mass conc 188 mg/dL High 70-100 [facility] Comment on above: Performed By: #### 0 0121 ####[facility] [facility] [place] [address], [facility] Glucose mass conc 150 mg/dL High 70-100 [facility] Comment on above: Performed By: #### 0 0121 ####[facility] [facility] [place] [address], [facility] Glucose mass conc 139 mg/dL High 70-100 [facility] Comment on above: Performed By: #### 0 0121 ####[facility] [place] [address], [facility] BASIC METABOLIC PANELon 09-0 Calcium mass conc 9.7 mg/dL Normal 8.6-10.3 [facility] Comment on above: Order Comment: No: D o not add to previous draw Performed By: #### 0 0121 ####[facility] [place] [address], [facility] Chloride molar conc 103 mmol/L Normal 98-107 [facility] Comment on above: Order Comment: No: D o not add to previous draw Performed By: #### 0 0121 ####[facility] [place] [address], [facility] CO2 molar conc 18 mmol/L Low 21-31 [facility] Comment on above: Order Comment: No: D o not add to previous draw Performed By: #### 0 0121 ####[facility] [place] [address], [facility] Creatinine mass conc 1.33 mg/dL High 0.60-1.20 [facility] Comment on above: Order Comment: No: D o not add to previous draw Performed By: #### 0 0121 ####[facility] [place] [address], [facility] GFR/1.73 sq M predicted among blacks MDRD vol rate/area (S/P/Bld) 47 ml/min/1.73sq m Abnormal >60 [facility] Comment on above: Order Comment: No: D o not add to previous draw Result Comment: Calc ulation may not be valid for patients over 70 years Performed By: #### 0 0121 ####[facility] [place] [address], [facility] GFR/1.73 sq M predicted among non-blacks MDRD vol rate/area (S/P/Bld) 39 ml/min/1.73sq m Abnormal >60 [facility] Comment on above: Order Comment: No: D o not add to previous draw Result Comment: Calc ulation may not be valid for patients over 70 years Performed By: #### 0 0121 ####[facility] [facility].[address] Glucose mass conc 133 mg/dL High 70-100 [facility] Comment on above: Order Comment: No: D o not add to previous draw Performed By: #### 0 0121 ####[facility] [facility].[address] Potassium molar conc 5.2 mmol/L High 3.5-5.1 [facility] Comment on above: Order Comment: No: D o not add to previous draw Performed By: #### 0 0121 ####[facility] [facility].[address] Sodium molar conc 131 mmol/L Low 136-145 [facility] Comment on above: Order Comment: No: D o not add to previous draw Performed By: #### 0 0121 ####[facility] [facility].[address] Urea nitrogen mass conc 31 mg/dL High 7-25 [facility] Comment on above: Order Comment: No: D o not add to previous draw Performed By: #### 0 0121 ####[facility] [facility] [place] [address], [facility] CBC W/DIFFon 07-12-2018 ABS BASOPHILS 0.1 10*3/uL Normal 0.0-0.2 [facility] Comment on above: Order Comment: No: D o not add to previous draw Performed By: #### 0 0121 ####[facility] [facility] [place] [address], [place] ABS IMM GRANS 1.2 10*3/uL High 0.0-0.2 [facility] Comment on above: Order Comment: No: D o not add to previous draw Performed By: #### 0 0121 ####[facility] [facility] [place] [place] [address], [facility] ABS NEUTROPHILS 7.2 10*3/uL Normal 1.6-7.6 [facility] Comment on above: Order Comment: No: D o not add to previous draw Performed By: #### 0 0121 ####[facility] [facility] [place] [address], [facility] Basophils Auto #/vol (Bld) 0.5 % Normal 0.0-1.0 [facility] Comment on above: Order Comment: No: D o not add to previous draw Performed By: #### 0 0121 ####[facility] [facility] [place] [address], [facility] Eosinophils Auto #/vol (Bld) 0.3 10*3/uL Normal 0.0-0.5 [facility] Comment on above: Order Comment: No: D o not add to previous draw Performed By: #### 0 0121 ####[facility] [facility].[address] Eosinophils/100 WBC Auto (Bld) 2.3 % Normal 0.0-6.0 [facility] Comment on above: Order Comment: No: D o not add to previous draw Performed By: #### 0 0121 ####[facility] [facility].[address] Erythrocyte distribution width Auto Ratio (RBC) 14.2 % Normal 11.5-15.0 [facility] Comment on above: Order Comment: No: D o not add to previous draw Performed By: #### 0 0121 ####[facility] Hematocrit Auto Volume Fraction (Bld) 36.0 % Normal 36.0-45.0 [facility] Comment on above: Order Comment: No: D o not add to previous draw Performed By: #### 0 0121 ####[facility] [facility].[address] Hemoglobin mass conc (Bld) 11.2 g/dL Low 12.0-15.0 [facility] Comment on above: Order Comment: No: D o not add to previous draw Performed By: #### 0 0121 ####[facility] IMM PLATELET FRAC 2.2 % Normal 0.8-6.3 [facility] Comment on above: Order Comment: No: D o not add to previous draw Performed By: #### 0 0121 ####[facility] IMMATURE GRANS 9.1 % High 0.0-1.0 [facility] Comment on above: Order Comment: No: D o not add to previous draw Performed By: #### 0 0121 ####[facility] Lymphocytes Auto #/vol (Bld) 3.0 10*3/uL Normal 1.2-4.0 [facility] Comment on above: Order Comment: No: D o not add to previous draw Performed By: #### 0 0121 ####[facility] [facility].[address] Lymphocytes/100 WBC Auto (Bld) 22.3 % Normal 20.0-45.0 [facility] Comment on above: Order Comment: No: D o not add to previous draw Performed By: #### 0 0121 ####[facility] MCH Auto Entitic mass (RBC) 30.9 pg Normal 27.0-33.0 [facility] Comment on above: Order Comment: No: D o not add to previous draw Performed By: #### 0 0121 ####[facility] MCHC Auto mass conc (RBC) 31.1 g/dL Low 32.0-35.0 [facility] Comment on above: Order Comment: No: D o not add to previous draw Performed By: #### 0 0121 ####[facility] MCV Auto Entitic volume (RBC) 99.4 fL High 82.0-98.0 [facility] Comment on above: Order Comment: No: D o not add to previous draw Performed By: #### 0 0121 ####[facility] Monocytes Auto #/vol (Bld) 1.5 10*3/uL High 0.1-1.0 [facility] Comment on above: Order Comment: No: D o not add to previous draw Performed By: #### 0 0121 ####[facility] MONOS 11.3 % Normal 5.0-12.0 [facility] Comment on above: Order Comment: No: D o not add to previous draw Performed By: #### 0 0121 ####[facility] Neutrophils/100 WBC Auto (Bld) 54.5 % Normal 40.0-72.0 [facility] Comment on above: Order Comment: No: D o not add to previous draw Performed By: #### 0 0121 ####[facility] Nucleated RBC/100 WBC Ratio (Bld) 0 % Normal 0-0 [facility] Comment on above: Order Comment: No: D o not add to previous draw Performed By: #### 0 0121 ####[facility] [address], [facility] PLAT CNT 425 10*3/uL High 150-400 [facility] Comment on above: Order Comment: No: D o not add to previous draw Performed By: #### 0 0121 ####[facility] RBC Auto #/vol (Bld) 3.62 10*6/uL Low 3.80-5.00 [facility] Comment on above: Order Comment: No: D o not add to previous draw Performed By: #### 0 0121 ####[facility] [facility] [place] [address], [facility] WBC Auto #/vol (Bld) 13.29 10*3/uL High 4.00-10.60 [facility] Comment on above: Order Comment: No: D o not add to previous draw Performed By: #### 0 0121 ####[facility] [facility].[address] MAGNESIUM BLOODon 07-12-2018 Magnesium mass conc 2.1 mg/dL Normal 1.9-2.7 [facility] Comment on above: Order Comment: No: D o not add to previous draw Performed By: #### 0 0121 ####[facility] [facility] [place] [address], [facility] PHOSPHORUS BLOODon 8 Phosphate mass conc 4.6 mg/dL Normal 2.5-5.0 [facility] Comment on above: Order Comment: No: D o not add to previous draw Performed By: #### 0 0121 ####[facility] POC GLUCOSE LABon 07-12-2018 Glucose mass conc 145 mg/dL High 70-100 [facility] Comment on above: Performed By: #### 0 0121 ####[facility] [place] [address], [facility] Glucose mass conc 184 mg/dL High 70-100 [facility] Comment on above: Performed By: #### 0 0121 ####[facility] [facility] [place] [address], [facility] Glucose mass conc 134 mg/dL High 70-100 [facility] Comment on above: Performed By: #### 0 0121 ####[facility] [place] [address], [facility] Glucose mass conc 168 mg/dL High 70-100 [facility] Comment on above: Performed By: #### 0 0121 ####[facility] [place] [address], [facility] ABDOMEN SERIES W CHESTon ABDOMEN SERIES W CHEST [facility] Foundation[facility] Rfstiyrzt[address] [place] [address] Stacy ent Name: VIDHYA GIORDANO : 1940Sex: FAge: Race: WhiteMRN: [id number]. Location: [id number] Status: IVisit #: [id number] Date: 07/11/2018 11:25:00 AMCompleted Date: 07/11/2018 01:43 PMRequesting Provider: ROSIBEL PERRY Attending Provider: MEG ABEBE Report Copy To: Signs & Symptoms: Post OPHistory: Patient history not availableComments: R/O ObstructionExam: ABDOMEN SERIES W CHESTAccession #: [id number] ===ABDOMEN SERIES W CHEST 07/11/2018 1:43 PM [...] obstruction. Electronically signed by:Nora Sethi. Transcribed by: [email or web address], User Resident: Electronically Signed by: NORA SETHI @ 07/12/2018 07:26 AM Normal [facility] Comment on above: Order Comment: R/O O bstruction BASIC METABOLIC PANELon Calcium mass conc 10.2 mg/dL Normal 8.6-10.3 [facility] Comment on above: Order Comment: No: D o not add to previous draw Performed By: #### 0 0121 ####[facility] [facility] [place] [address], [facility] Chloride molar conc 102 mmol/L Normal 98-107 [facility] Comment on above: Order Comment: No: D o not add to previous draw Performed By: #### 0 0121 ####[facility] [place] [address], [facility] CO2 molar conc 21 mmol/L Normal 21-31 [facility] Comment on above: Order Comment: No: D o not add to previous draw Performed By: #### 0 0121 ####[facility] [place] [address], [facility] Creatinine mass conc 1.30 mg/dL High 0.60-1.20 [facility] Comment on above: Order Comment: No: D o not add to previous draw Performed By: #### 0 0121 ####[facility] [facility] [place] [address], [facility] GFR/1.73 sq M predicted among blacks MDRD vol rate/area (S/P/Bld) 47 ml/min/1.73sq m Abnormal >60 [facility] Comment on above: Order Comment: No: D o not add to previous draw Result Comment: Calc ulation may not be valid for patients over 70 years Performed By: #### 0 0121 ####[facility] [facility] [place] [address], [facility] GFR/1.73 sq M predicted among non-blacks MDRD vol rate/area (S/P/Bld) 39 ml/min/1.73sq m Abnormal >60 [facility] Comment on above: Order Comment: No: D o not add to previous draw Result Comment: Calc ulation may not be valid for patients over 70 years Performed By: #### 0 0121 ####[facility] [facility] [place] [address], [facility] Glucose mass conc 162 mg/dL High 70-100 [facility] Comment on above: Order Comment: No: D o not add to previous draw Performed By: #### 0 0121 ####[facility] [facility] [place] [address], [facility] Potassium molar conc 5.6 mmol/L High 3.5-5.1 [facility] Comment on above: Order Comment: No: D o not add to previous draw Performed By: #### 0 0121 ####[facility] [facility] [place] [address], [facility] Sodium molar conc 132 mmol/L Low 136-145 [facility] Comment on above: Order Comment: No: D o not add to previous draw Performed By: #### 0 0121 ####[facility] Urea nitrogen mass conc 29 mg/dL High 7-25 [facility] Comment on above: Order Comment: No: D o not add to previous draw Performed By: #### 0 0121 ####[facility] CBC COMPLETE BLOOD COUNTon 0 07-11-2018 Erythrocyte distribution width Auto Ratio (RBC) 14.1 % Normal 11.5-15.0 [facility] Comment on above: Order Comment: This order is a replacement of the rejected order with accession [id number]. Performed By: #### 0 0121 ####[place] [id number] Hematocrit Auto Volume Fraction (Bld) 33.4 % Low 36.0-45.0 [facility] Comment on above: Order Comment: This order is a replacement of the rejected order with accession [id number]. Performed By: #### 0 0121 ####[place] [address] Hemoglobin mass conc (Bld) 10.5 g/dL Low 12.0-15.0 [facility] Comment on above: Order Comment: This order is a replacement of the rejected order with accession [id number]. Performed By: #### 0 0121 ####[facility] MCH Auto Entitic mass (RBC) 30.3 pg Normal 27.0-33.0 [facility] Comment on above: Order Comment: This order is a replacement of the rejected order with accession [id number]. Performed By: #### 0 0121 ####[facility] MCHC Auto mass conc (RBC) 31.4 g/dL Low 32.0-35.0 [facility] Comment on above: Order Comment: This order is a replacement of the rejected order with accession [id number]. Performed By: #### 0 0121 ####[facility] MCV Auto Entitic volume (RBC) 96.5 fL Normal 82.0-98.0 [facility] Comment on above: Order Comment: This order is a replacement of the rejected order with accession [id number]. Performed By: #### 0 0121 ####[place] [address] Nucleated RBC/100 WBC Ratio (Bld) 0 % Normal 0-0 [facility] Comment on above: Order Comment: This order is a replacement of the rejected order with accession [id number]. Performed By: #### 0 0121 ####[facility] PLAT CNT 527 10*3/uL High 150-400 [facility] Comment on above: Order Comment: This order is a replacement of the rejected order with accession [id number]. Performed By: #### 0 0121 ####[place] [address] RBC Auto #/vol (Bld) 3.46 10*6/uL Low 3.80-5.00 [facility] Comment on above: Order Comment: This order is a replacement of the rejected order with accession [id number]. Performed By: #### 0 0121 ####[facility] WBC Auto #/vol (Bld) 15.56 10*3/uL High 4.00-10.60 [facility] Comment on above: Order Comment: This order is a replacement of the rejected order with accession [id number]. Performed By: #### 0 0121 ####[facility] [facility] [place] [address], [facility] MAGNESIUM BLOODon 07-11-2018 Magnesium mass conc 1.7 mg/dL Low 1.9-2.7 [facility] Comment on above: Order Comment: No: D o not add to previous draw Performed By: #### 0 0121 ####[facility] [facility] [place] [address], [facility] PHOSPHORUS BLOODon 8 Phosphate mass conc 4.6 mg/dL Normal 2.5-5.0 [facility] Comment on above: Order Comment: No: D o not add to previous draw Performed By: #### 0 0121 ####[facility] [facility] [place] [address], [facility] POC GLUCOSE LABon 07-11-2018 Glucose mass conc 158 mg/dL High 70-100 [facility] Comment on above: Performed By: #### 0 0121 ####[facility] [facility].[address] Glucose mass conc 204 mg/dL High 70-100 [facility] Comment on above: Performed By: #### 0 0121 ####[facility] [facility] [place] [address], [facility] Glucose mass conc 186 mg/dL High 70-100 [facility] Comment on above: Performed By: #### 0 0121 ####[facility] [facility].[address] *BLOOD CULTUREon 07-10-2018 Bacteria identified in Blood by Culture Clinical Report: (D) Specimen: BLOOD CULTURE Collected: 07/10/2018 11:19 Status: Final Last Updated: 07/16/2018 06:46 CULT RES (Final) No Growth Day 5 Normal [facility] Comment on above: Performed By: #### 0 0121 ####[facility] [place] [address], [facility] BASIC METABOLIC PANELon 09-0 Calcium mass conc 9.9 mg/dL Normal 8.6-10.3 [facility] Comment on above: Order Comment: No: D o not add to previous draw Performed By: #### 0 0121 ####[facility] [place] [address], [facility] Chloride molar conc 101 mmol/L Normal 98-107 [facility] Comment on above: Order Comment: No: D o not add to previous draw Performed By: #### 0 0121 ####[facility] [place] [address], [facility] CO2 molar conc 22 mmol/L Normal 21-31 [facility] Comment on above: Order Comment: No: D o not add to previous draw Performed By: #### 0 0121 ####[facility] [place] [address], [facility] Creatinine mass conc 1.18 mg/dL Normal 0.60-1.20 [facility] Comment on above: Order Comment: No: D o not add to previous draw Performed By: #### 0 0121 ####[facility] [address], [facility] GFR/1.73 sq M predicted among blacks MDRD vol rate/area (S/P/Bld) 53 ml/min/1.73sq m Abnormal >60 [facility] Comment on above: Order Comment: No: D o not add to previous draw Result Comment: Calc ulation may not be valid for patients over 70 years Performed By: #### 0 0121 ####[facility] [address], [facility] GFR/1.73 sq M predicted among non-blacks MDRD vol rate/area (S/P/Bld) 45 ml/min/1.73sq m Abnormal >60 [facility] Comment on above: Order Comment: No: D o not add to previous draw Result Comment: Calc ulation may not be valid for patients over 70 years Performed By: #### 0 0121 ####[facility] Glucose mass conc 212 mg/dL High 70-100 [facility] Comment on above: Order Comment: No: D o not add to previous draw Performed By: #### 0 0121 ####[facility] Potassium molar conc 5.1 mmol/L Normal 3.5-5.1 [facility] Comment on above: Order Comment: No: D o not add to previous draw Performed By: #### 0 0121 ####[facility] Sodium molar conc 132 mmol/L Low 136-145 [facility] Comment on above: Order Comment: No: D o not add to previous draw Performed By: #### 0 0121 ####[facility] Urea nitrogen mass conc 28 mg/dL High 7-25 [facility] Comment on above: Order Comment: No: D o not add to previous draw Performed By: #### 0 0121 ####[facility] CBC W/DIFFon 07-10-2018 ABS BASOPHILS 0.2 10*3/uL Normal 0.0-0.2 [facility] Comment on above: Order Comment: No: D o not add to previous draw Performed By: #### 0 0121 ####[facility] ABS IMM GRANS 2.1 10*3/uL High 0.0-0.2 [facility] Comment on above: Order Comment: No: D o not add to previous draw Performed By: #### 0 0121 ####[facility] [facility] [place] [address], [facility] ABS NEUTROPHILS 13.5 10*3/uL High 1.6-7.6 [facility] Comment on above: Order Comment: No: D o not add to previous draw Performed By: #### 0 0121 ####[facility] [facility] [place] [address], [facility] Basophils Auto #/vol (Bld) 1.0 % Normal 0.0-1.0 [facility] Comment on above: Order Comment: No: D o not add to previous draw Performed By: #### 0 0121 ####[facility] [place] [address], [facility] Eosinophils Auto #/vol (Bld) 0.2 10*3/uL Normal 0.0-0.5 [facility] Comment on above: Order Comment: No: D o not add to previous draw Performed By: #### 0 0121 ####[facility] [place] [address], [facility] Eosinophils/100 WBC Auto (Bld) 1.0 % Normal 0.0-6.0 [facility] Comment on above: Order Comment: No: D o not add to previous draw Performed By: #### 0 0121 ####[facility] [facility].[address] Erythrocyte distribution width Auto Ratio (RBC) 13.9 % Normal 11.5-15.0 [facility] Comment on above: Order Comment: No: D o not add to previous draw Performed By: #### 0 0121 ####[facility] Hematocrit Auto Volume Fraction (Bld) 32.3 % Low 36.0-45.0 [facility] Comment on above: Order Comment: No: D o not add to previous draw Performed By: #### 0 0121 ####[facility] Hemoglobin mass conc (Bld) 10.4 g/dL Low 12.0-15.0 [facility] Comment on above: Order Comment: No: D o not add to previous draw Performed By: #### 0 0121 ####[facility] Lymphocytes Auto #/vol (Bld) 2.8 10*3/uL Normal 1.2-4.0 [facility] Comment on above: Order Comment: No: D o not add to previous draw Performed By: #### 0 0121 ####[facility] Lymphocytes/100 WBC Auto (Bld) 15.0 % Low 20.0-45.0 [facility] Comment on above: Order Comment: No: D o not add to previous draw Performed By: #### 0 0121 ####[facility] MCH Auto Entitic mass (RBC) 30.6 pg Normal 27.0-33.0 [facility] Comment on above: Order Comment: No: D o not add to previous draw Performed By: #### 0 0121 ####[facility] [place] [address] MCHC Auto mass conc (RBC) 32.2 g/dL Normal 32.0-35.0 [facility] Comment on above: Order Comment: No: D o not add to previous draw Performed By: #### 0 0121 ####[place] [address] MCV Auto Entitic volume (RBC) 95.0 fL Normal 82.0-98.0 [facility] Comment on above: Order Comment: No: D o not add to previous draw Performed By: #### 0 0121 ####[facility]3000 [facility] [place] [address], [facility] METAMYELO 4.0 % High 0.0-0.0 [facility] Comment on above: Order Comment: No: D o not add to previous draw Performed By: #### 0 0121 ####[facility]3000 [facility] [place] [address], [facility] Monocytes Auto #/vol (Bld) 0.9 10*3/uL Normal 0.1-1.0 [facility] Comment on above: Order Comment: No: D o not add to previous draw Performed By: #### 0 0121 ####[facility] [facility] [place] [address], [facility] MONOS 5.0 % Normal 5.0-12.0 [facility] Comment on above: Order Comment: No: D o not add to previous draw Performed By: #### 0 0121 ####[facility] [facility] [place] [address], [facility] MYELOS 2.0 % High .0-.0 [facility] Comment on above: Order Comment: No: D o not add to previous draw Performed By: #### 0 0121 ####[facility] [facility] [place] [address], [facility] Neutrophils/100 WBC Auto (Bld) 72.0 % Normal 40.0-72.0 [facility] Comment on above: Order Comment: No: D o not add to previous draw Performed By: #### 0 0121 ####[facility] [facility] [place] [address], [facility] Nucleated RBC/100 WBC Ratio (Bld) 0 % Normal 0-0 [facility] Comment on above: Order Comment: No: D o not add to previous draw Performed By: #### 0 0121 ####[facility] PLAT CNT 530 10*3/uL High 150-400 [facility] Comment on above: Order Comment: No: D o not add to previous draw Performed By: #### 0 0121 ####[facility] RBC Auto #/vol (Bld) 3.40 10*6/uL Low 3.80-5.00 [facility] Comment on above: Order Comment: No: D o not add to previous draw Performed By: #### 0 0121 ####[facility] WBC Auto #/vol (Bld) 18.70 10*3/uL High 4.00-10.60 [facility] Comment on above: Order Comment: No: D o not add to previous draw Performed By: #### 0 0121 ####[address] ABDOMEN AND PELVIS WO CON TRASTon 07-10-2018 CT ABDOMEN AND PELVIS WO CONTRAST [facility] [address]ptzr[address] [place] [address] Stacy ent Name: VIDHYA GIORDANO : 1940Sex: FAge: Race: WhiteMRN: [id number]. Location: [id number] Status: IVisit #: [id number] Date: 07/10/2018 11:10:00 AMCompleted Date: 07/10/2018 02:44 PMRequesting Provider: MEG ABEBE Attending Provider: MEG ABEBE Report Copy To: Signs & Symptoms: AbscessHistory: Patient history not availableComments: Other, leukocytosis. need oral contrastExam: CT ABDOMEN AND PELVIS WO CONTRASTAccession #: [id number] ===CT ABDOMEN AND PELVIS WO CONTRAST 07/10/2018 [...] findings. Electronically signed by:Rhoda Nicole. Transcribed by: [id number], User Resident: WU TURNERElectronically Signed by: RHODA NICOLE @ 07/12/2018 10:55 AMI personally read this/these film(s) with this resident Normal [facility] Comment on above: Order Comment: Other , leukocytosis. need oral contrast MAGNESIUM BLOODon 07-10-2018 Magnesium mass conc 1.8 mg/dL Low 1.9-2.7 [facility] Comment on above: Order Comment: No: D o not add to previous draw Performed By: #### 0 0121 ####[facility] PHOSPHORUS BLOODon 8 Phosphate mass conc 4.4 mg/dL Normal 2.5-5.0 [facility] Comment on above: Order Comment: No: D o not add to previous draw Performed By: #### 0 0121 ####[facility] [place] [address], [facility] POC GLUCOSE LABon 07-10-2018 Glucose mass conc 183 mg/dL High 70-100 [facility] Comment on above: Performed By: #### 0 0121 ####[facility] [facility] [place] [address], [facility] Glucose mass conc 195 mg/dL High 70-100 [facility] Comment on above: Performed By: #### 0 0121 ####[facility] [facility] [place] [address], [facility] Glucose mass conc 246 mg/dL High 70-100 [facility] Comment on above: Performed By: #### 0 0121 ####[facility] [facility] [place] [address], [facility] Glucose mass conc 187 mg/dL High 70-100 [facility] Comment on above: Performed By: #### 0 0121 ####[facility] [facility].[address] *BLOOD CULTUREon 07-09-2018 Bacteria identified in Blood by Culture Clinical Report: (D) Specimen: BLOOD CULTURE Collected: 07/09/2018 17:53 Status: Final Last Updated: 07/15/2018 07:43 CULT RES (Final) No Growth Day 5 Normal [facility] Comment on above: Performed By: #### 0 0121 ####[facility] [facility].[address] BASIC METABOLIC PANELon Calcium mass conc 9.2 mg/dL Normal 8.6-10.3 [facility] Comment on above: Order Comment: No: D o not add to previous draw Performed By: #### 0 0121 ####[facility] Chloride molar conc 102 mmol/L Normal 98-107 [facility] Comment on above: Order Comment: No: D o not add to previous draw Performed By: #### 0 0121 ####[facility] [address], [facility] CO2 molar conc 25 mmol/L Normal 21-31 [facility] Comment on above: Order Comment: No: D o not add to previous draw Performed By: #### 0 0121 ####[facility] [place] [address], [facility] Creatinine mass conc 0.95 mg/dL Normal 0.60-1.20 [facility] Comment on above: Order Comment: No: D o not add to previous draw Performed By: #### 0 0121 ####[facility]3000 [facility] [place] [address], [facility] GFR/1.73 sq M predicted among blacks MDRD vol rate/area (S/P/Bld) mL/min/{1.73_m2} Normal >60 [facility] Comment on above: Order Comment: No: D o not add to previous draw Result Comment: Calc ulation may not be valid for patients over 70 years Performed By: #### 0 0121 ####[facility] [facility] [place] [address], [facility] GFR/1.73 sq M predicted among non-blacks MDRD vol rate/area (S/P/Bld) 56 ml/min/1.73sq m Abnormal >60 [facility] Comment on above: Order Comment: No: D o not add to previous draw Result Comment: Calc ulation may not be valid for patients over 70 years Performed By: #### 0 0121 ####[facility] [place] [address], [facility] Glucose mass conc 178 mg/dL High 70-100 [facility] Comment on above: Order Comment: No: D o not add to previous draw Performed By: #### 0 0121 ####[facility] [place] [address], [facility] Potassium molar conc 4.5 mmol/L Normal 3.5-5.1 [facility] Comment on above: Order Comment: No: D o not add to previous draw Performed By: #### 0 0121 ####[facility] Sodium molar conc 131 mmol/L Low 136-145 [facility] Comment on above: Order Comment: No: D o not add to previous draw Performed By: #### 0 0121 ####[facility] [place] [address] Urea nitrogen mass conc 28 mg/dL High 7-25 [facility] Comment on above: Order Comment: No: D o not add to previous draw Performed By: #### 0 0121 ####[place] [address] CBC W/DIFFon 07-09-2018 ABS BASOPHILS 0.0 10*3/uL Normal 0.0-0.2 [facility] Comment on above: Order Comment: No: D o not add to previous draw Performed By: #### 0 0121 ####[place] [address] ABS NEUTROPHILS 12.4 10*3/uL High 1.6-7.6 [facility] Comment on above: Order Comment: No: D o not add to previous draw Performed By: #### 0 0121 ####[facility] Basophils Auto #/vol (Bld) 0.0 % Normal 0.0-1.0 [facility] Comment on above: Order Comment: No: D o not add to previous draw Performed By: #### 0 0121 ####[facility] Eosinophils Auto #/vol (Bld) 0.3 10*3/uL Normal 0.0-0.5 [facility] Comment on above: Order Comment: No: D o not add to previous draw Performed By: #### 0 0121 ####[facility] Eosinophils/100 WBC Auto (Bld) 1.8 % Normal 0.0-6.0 [facility] Comment on above: Order Comment: No: D o not add to previous draw Performed By: #### 0 0121 ####[facility] Erythrocyte distribution width Auto Ratio (RBC) 14.0 % Normal 11.5-15.0 [facility] Comment on above: Order Comment: No: D o not add to previous draw Performed By: #### 0 0121 ####[facility] GIANT PLATELETS Present Normal [facility] Comment on above: Order Comment: No: D o not add to previous draw Performed By: #### 0 0121 ####[facility] Hematocrit Auto Volume Fraction (Bld) 30.0 % Low 36.0-45.0 [facility] Comment on above: Order Comment: No: D o not add to previous draw Performed By: #### 0 0121 ####[facility] [facility].[address] Hemoglobin mass conc (Bld) 9.6 g/dL Low 12.0-15.0 [facility] Comment on above: Order Comment: No: D o not add to previous draw Performed By: #### 0 0121 ####[facility] Lymphocytes Auto #/vol (Bld) 3.1 10*3/uL Normal 1.2-4.0 [facility] Comment on above: Order Comment: No: D o not add to previous draw Performed By: #### 0 0121 ####[facility] Lymphocytes/100 WBC Auto (Bld) 17.4 % Low 20.0-45.0 [facility] Comment on above: Order Comment: No: D o not add to previous draw Performed By: #### 0 0121 ####[facility] MCH Auto Entitic mass (RBC) 30.6 pg Normal 27.0-33.0 [facility] Comment on above: Order Comment: No: D o not add to previous draw Performed By: #### 0 0121 ####[facility] MCHC Auto mass conc (RBC) 32.0 g/dL Normal 32.0-35.0 [facility] Comment on above: Order Comment: No: D o not add to previous draw Performed By: #### 0 0121 ####[facility] MCV Auto Entitic volume (RBC) 95.5 fL Normal 82.0-98.0 [facility] Comment on above: Order Comment: No: D o not add to previous draw Performed By: #### 0 0121 ####[facility] METAMYELO 1.8 % High 0.0-0.0 [facility] Comment on above: Order Comment: No: D o not add to previous draw Performed By: #### 0 0121 ####[address] Monocytes Auto #/vol (Bld) 1.3 10*3/uL High 0.1-1.0 [facility] Comment on above: Order Comment: No: D o not add to previous draw Performed By: #### 0 0121 ####[facility] [address], [facility] MONOS 7.4 % Normal 5.0-12.0 [facility] Comment on above: Order Comment: No: D o not add to previous draw Performed By: #### 0 0121 ####[facility] [place] [address], [facility] MYELOS 0.9 % High .0-.0 [facility] Comment on above: Order Comment: No: D o not add to previous draw Performed By: #### 0 0121 ####[facility] [address], [facility] Neutrophils/100 WBC Auto (Bld) 70.7 % Normal 40.0-72.0 [facility] Comment on above: Order Comment: No: D o not add to previous draw Performed By: #### 0 0121 ####[facility] NRBC SCAN Present Normal [facility] Comment on above: Order Comment: No: D o not add to previous draw Performed By: #### 0 0121 ####[facility] [place] [address], [facility] Nucleated RBC/100 WBC Ratio (Bld) 0 % Normal 0-0 [facility] Comment on above: Order Comment: No: D o not add to previous draw Performed By: #### 0 0121 ####[facility] [address], [facility] PLAT CNT 430 10*3/uL High 150-400 [facility] Comment on above: Order Comment: No: D o not add to previous draw Performed By: #### 0 0121 ####[facility] [address], [facility] RBC Auto #/vol (Bld) 3.14 10*6/uL Low 3.80-5.00 [facility] Comment on above: Order Comment: No: D o not add to previous draw Performed By: #### 0 0121 ####[facility] [facility].[address] WBC Auto #/vol (Bld) 17.58 10*3/uL High 4.00-10.60 [facility] Comment on above: Order Comment: No: D o not add to previous draw Performed By: #### 0 0121 ####[facility] [facility] [place] [address], [facility] MAGNESIUM BLOODon 07-09-2018 Magnesium mass conc 1.8 mg/dL Low 1.9-2.7 [facility] Comment on above: Order Comment: No: D o not add to previous draw Performed By: #### 0 0121 ####[facility] [facility] [place] [address], [facility] PHOSPHORUS BLOODon 8 Phosphate mass conc 4.1 mg/dL Normal 2.5-5.0 [facility] Comment on above: Order Comment: No: D o not add to previous draw Performed By: #### 0 0121 ####[facility] [facility].[address] POC GLUCOSE LABon 07-09-2018 Glucose mass conc 172 mg/dL High 70-100 [facility] Comment on above: Performed By: #### 0 0121 ####[facility] [facility] [place] [address], [facility] Glucose mass conc 179 mg/dL High 70-100 [facility] Comment on above: Performed By: #### 0 0121 ####[facility] [facility] [place] [address], [facility] Glucose mass conc 168 mg/dL High 70-100 [facility] Comment on above: Performed By: #### 0 0121 ####[id number] [place] [address], [facility] Glucose mass conc 147 mg/dL High 70-100 [facility] Comment on above: Performed By: #### 0 0121 ####[facility]3000 [facility] [place] [address], [facility] PORTABLE CHEST 1 VIEWon PORTABLE CHEST 1 VIEW [facility]Department [facility] Mayklyotr[address] [place] [address] Stacy ent Name: VIDHYA GIORDANO : 1940Sex: FAge: Race: WhiteMRN: [id number]. Location: [id number] Status: IVisit #: [id number] Date: 07/09/2018 5:25:00 PMCompleted Date: 07/09/2018 06:13 PMRequesting Provider: MARLIN DELGADO Attending Provider: MEG ABEBE Report Copy To: Signs & Symptoms: Elevated WBCHistory: Patient history not availableComments: R/O PneumoniaExam: PORTABLE CHEST 1 VIEWAccession #: [id number] ===PORTABLE CHEST 1 VIEW 07/09/2018 6:13 PM [...] findings. Electronically signed by:Rhoda Nicole. Transcribed by: [email or web address], User Resident: WU TURNERElectronically Signed by: RHODA NICOLE @ 07/10/2018 12:40 PMI personally read this/these film(s) with this resident Normal [facility] Comment on above: Order Comment: R/O P neumonia URINALYSIS REFLEXon 07-09-20 18 APPEARANCE CLEAR Normal CLEAR [facility] Comment on above: Order Comment: No: D o not add to previous drawCriteria for reflexing a culture was not met. Please call the lab [id number] within 24 hours of collection time if culture is needed Performed By: #### 0 0121 ####[facility] [facility] [place] [address], [facility] BILIRUBIN Negative Normal NEGATIVE [facility] Comment on above: Order Comment: No: D o not add to previous drawCriteria for reflexing a culture was not met. Please call the lab [id number] within 24 hours of collection time if culture is needed Performed By: #### 0 0121 ####[facility] [place] [address], [place] BLOOD Negative Normal NEGATIVE [facility] Comment on above: Order Comment: No: D o not add to previous drawCriteria for reflexing a culture was not met. Please call the lab [id number] within 24 hours of collection time if culture is needed Performed By: #### 0 0121 ####[facility] [place] [address], [place] COLOR YELLOW Normal YELLOW [facility] Comment on above: Order Comment: No: D o not add to previous drawCriteria for reflexing a culture was not met. Please call the lab [id number] within 24 hours of collection time if culture is needed Performed By: #### 0 0121 ####[facility] [address], [place] GLUCOSE Negative Normal NEGATIVE [facility] Comment on above: Order Comment: No: D o not add to previous drawCriteria for reflexing a culture was not met. Please call the lab [id number] within 24 hours of collection time if culture is needed Performed By: #### 0 0121 ####[facility]3000 [facility] [place] [address], [facility] KETONE Negative Normal NEGATIVE [facility] Comment on above: Order Comment: No: D o not add to previous drawCriteria for reflexing a culture was not met. Please call the lab [id number] within 24 hours of collection time if culture is needed Performed By: #### 0 0121 ####[facility] [place] [address], [place] GA Negative Normal NEGATIVE [facility] Comment on above: Order Comment: No: D o not add to previous drawCriteria for reflexing a culture was not met. Please call the lab [id number] within 24 hours of collection time if culture is needed Performed By: #### 0 0121 ####[facility] [place] [address], [place] MICRO NOT DONE negative chemical reactions unless requested in original order Normal [facility] Comment on above: Order Comment: No: D o not add to previous drawCriteria for reflexing a culture was not met. Please call the lab [id number] within 24 hours of collection time if culture is needed Performed By: #### 0 0121 ####[facility] [place] [address], [place] NITRITE Negative Normal NEGATIVE [facility] Comment on above: Order Comment: No: D o not add to previous drawCriteria for reflexing a culture was not met. Please call the lab [id number] within 24 hours of collection time if culture is needed Performed By: #### 0 0121 ####[facility] [place] [address], [facility] PH 5.0 Normal 5.0-8.0 [facility] Comment on above: Order Comment: No: D o not add to previous drawCriteria for reflexing a culture was not met. Please call the lab [id number] within 24 hours of collection time if culture is needed Performed By: #### 0 0121 ####[facility] [place] [address], [facility] Protein mass conc Negative Normal NEGATIVE [facility] Comment on above: Order Comment: No: D o not add to previous drawCriteria for reflexing a culture was not met. Please call the lab [id number] within 24 hours of collection time if culture is needed Performed By: #### 0 0121 ####[facility] [place] [address], [facility] SPEC GRAV 1.009 Low 1.015-1.020 [facility] Comment on above: Order Comment: No: D o not add to previous drawCriteria for reflexing a culture was not met. Please call the lab [id number] within 24 hours of collection time if culture is needed Performed By: #### 0 0121 ####[facility] [facility] [place] [address], [facility] BASIC METABOLIC PANELon 08-3 Calcium mass conc 9.2 mg/dL Normal 8.6-10.3 [facility] Comment on above: Order Comment: No: D o not add to previous drawNo collection time noted on specimen or requisition. The collection timerecorded is the time of receipt in the lab. Performed By: #### 1 0070, [id number], [id number] ####[facility] [facility] [place] [address], [facility] Chloride molar conc 100 mmol/L Normal 98-107 [facility] Comment on above: Order Comment: No: D o not add to previous drawNo collection time noted on specimen or requisition. The collection timerecorded is the time of receipt in the lab. Performed By: #### 1 0070, [id number], [id number] ####[facility] [facility] [place] [address], [facility] CO2 molar conc 26 mmol/L Normal 21-31 [facility] Comment on above: Order Comment: No: D o not add to previous drawNo collection time noted on specimen or requisition. The collection timerecorded is the time of receipt in the lab. Performed By: #### 1 0070, [id number], [id number] ####[facility] [place] [address], [facility] Creatinine mass conc 0.92 mg/dL Normal 0.60-1.20 [facility] Comment on above: Order Comment: No: D o not add to previous drawNo collection time noted on specimen or requisition. The collection timerecorded is the time of receipt in the lab. Performed By: #### 1 0070, [id number], [id number] ####[facility] [facility] [place] [address], [facility] GFR/1.73 sq M predicted among blacks MDRD vol rate/area (S/P/Bld) mL/min/{1.73_m2} Normal >60 [facility] Comment on above: Order Comment: No: D o not add to previous drawNo collection time noted on specimen or requisition. The collection timerecorded is the time of receipt in the lab. Result Comment: Calc ulation may not be valid for patients over 70 years Performed By: #### 1 0070, 46060, 12395 ####[facility] [facility] [place] [address], [facility] GFR/1.73 sq M predicted among non-blacks MDRD vol rate/area (S/P/Bld) 59 ml/min/1.73sq m Abnormal >60 [facility] Comment on above: Order Comment: No: D o not add to previous drawNo collection time noted on specimen or requisition. The collection timerecorded is the time of receipt in the lab. Result Comment: Calc ulation may not be valid for patients over 70 years Performed By: #### 1 0070, 41613, 35560 ####[facility] [facility] [place] [address], [facility] Glucose mass conc 391 mg/dL High 70-100 [facility] Comment on above: Order Comment: No: D o not add to previous drawNo collection time noted on specimen or requisition. The collection timerecorded is the time of receipt in the lab. Performed By: #### 1 0070, 72102, 55722 ####[facility] [facility] [place] [address], [facility] Potassium molar conc 5.1 mmol/L Normal 3.5-5.1 [facility] Comment on above: Order Comment: No: D o not add to previous drawNo collection time noted on specimen or requisition. The collection timerecorded is the time of receipt in the lab. Performed By: #### 1 0070, 19918, 88940 ####[facility] [facility] [place] [address], [facility] Sodium molar conc 130 mmol/L Low 136-145 [facility] Comment on above: Order Comment: No: D o not add to previous drawNo collection time noted on specimen or requisition. The collection timerecorded is the time of receipt in the lab. Performed By: #### 1 0070, 54172, 93640 ####[facility] [facility] [place] [address], [facility] Urea nitrogen mass conc 24 mg/dL Normal 7-25 [facility] Comment on above: Order Comment: No: D o not add to previous drawNo collection time noted on specimen or requisition. The collection timerecorded is the time of receipt in the lab. Performed By: #### 1 0, 21547, 85909 ####[facility] [facility].[address] CBC W/DIFFon 07-08-2018 ABS BASOPHILS 0.5 10*3/uL High 0.0-0.2 [facility] Comment on above: Order Comment: No: D o not add to previous drawNo collection time noted on specimen or requisition. The collection timerecorded is the time of receipt in the lab. Performed By: #### 1 0, 97575, 13760 ####[facility] [facility].[address] ABS NEUTROPHILS 12.1 10*3/uL High 1.6-7.6 [facility] Comment on above: Order Comment: No: D o not add to previous drawNo collection time noted on specimen or requisition. The collection timerecorded is the time of receipt in the lab. Performed By: #### 1 0, , 13450 ####[facility] [facility].[address] Basophils Auto #/vol (Bld) 2.8 % High 0.0-1.0 [facility] Comment on above: Order Comment: No: D o not add to previous drawNo collection time noted on specimen or requisition. The collection timerecorded is the time of receipt in the lab. Performed By: #### 1 0, , 65326 ####[facility] [facility].[address] Eosinophils Auto #/vol (Bld) 0.1 10*3/uL Normal 0.0-0.5 [facility] Comment on above: Order Comment: No: D o not add to previous drawNo collection time noted on specimen or requisition. The collection timerecorded is the time of receipt in the lab. Performed By: #### 1 0, 21254, 32518 ####[facility] [facility].[address] Eosinophils/100 WBC Auto (Bld) 0.9 % Normal 0.0-6.0 [facility] Comment on above: Order Comment: No: D o not add to previous drawNo collection time noted on specimen or requisition. The collection timerecorded is the time of receipt in the lab. Performed By: #### 1 0070, 70812, 07298 ####[facility] Erythrocyte distribution width Auto Ratio (RBC) 13.7 % Normal 11.5-15.0 [facility] Comment on above: Order Comment: No: D o not add to previous drawNo collection time noted on specimen or requisition. The collection timerecorded is the time of receipt in the lab. Performed By: #### 1 0070, 97680, 20682 ####[facility] [facility].[address] Hematocrit Auto Volume Fraction (Bld) 30.4 % Low 36.0-45.0 [facility] Comment on above: Order Comment: No: D o not add to previous drawNo collection time noted on specimen or requisition. The collection timerecorded is the time of receipt in the lab. Performed By: #### 1 0070, 98717, 21565 ####[facility] Hemoglobin mass conc (Bld) 9.7 g/dL Low 12.0-15.0 [facility] Comment on above: Order Comment: No: D o not add to previous drawNo collection time noted on specimen or requisition. The collection timerecorded is the time of receipt in the lab. Performed By: #### 1 0070, 96639, 50167 ####[facility] [facility].[address] Lymphocytes Auto #/vol (Bld) 1.5 10*3/uL Normal 1.2-4.0 [facility] Comment on above: Order Comment: No: D o not add to previous drawNo collection time noted on specimen or requisition. The collection timerecorded is the time of receipt in the lab. Performed By: #### 1 0070, 22745, 25235 ####[facility] Lymphocytes/100 WBC Auto (Bld) 9.2 % Low 20.0-45.0 [facility] Comment on above: Order Comment: No: D o not add to previous drawNo collection time noted on specimen or requisition. The collection timerecorded is the time of receipt in the lab. Performed By: #### 1 0070, 96104, 33315 ####[facility] [place] [address] MCH Auto Entitic mass (RBC) 30.7 pg Normal 27.0-33.0 [facility] Comment on above: Order Comment: No: D o not add to previous drawNo collection time noted on specimen or requisition. The collection timerecorded is the time of receipt in the lab. Performed By: #### 1 0070, 22321, 26449 ####[address] MCHC Auto mass conc (RBC) 31.9 g/dL Low 32.0-35.0 [facility] Comment on above: Order Comment: No: D o not add to previous drawNo collection time noted on specimen or requisition. The collection timerecorded is the time of receipt in the lab. Performed By: #### 1 0070, 03352, 24201 ####[facility] MCV Auto Entitic volume (RBC) 96.2 fL Normal 82.0-98.0 [facility] Comment on above: Order Comment: No: D o not add to previous drawNo collection time noted on specimen or requisition. The collection timerecorded is the time of receipt in the lab. Performed By: #### 1 0070, 77675, 26425 ####[facility] [facility] [place] [address], [facility] Monocytes Auto #/vol (Bld) 1.9 10*3/uL High 0.1-1.0 [facility] Comment on above: Order Comment: No: D o not add to previous drawNo collection time noted on specimen or requisition. The collection timerecorded is the time of receipt in the lab. Performed By: #### 1 0, , 93326 ####[facility] [facility].[address] MONOS 11.9 % Normal 5.0-12.0 [facility] Comment on above: Order Comment: No: D o not add to previous drawNo collection time noted on specimen or requisition. The collection timerecorded is the time of receipt in the lab. Performed By: #### 1 0, , 37953 ####[facility] [facility].[address] Neutrophils/100 WBC Auto (Bld) 75.2 % High 40.0-72.0 [facility] Comment on above: Order Comment: No: D o not add to previous drawNo collection time noted on specimen or requisition. The collection timerecorded is the time of receipt in the lab. Performed By: #### 1 0, , 37063 ####[facility] [facility].[address] Nucleated RBC/100 WBC Ratio (Bld) 0 % Normal 0-0 [facility] Comment on above: Order Comment: No: D o not add to previous drawNo collection time noted on specimen or requisition. The collection timerecorded is the time of receipt in the lab. Performed By: #### 1 0, 42340, 71309 ####[facility] [place] [address], [facility] PLAT CNT 354 10*3/uL Normal 150-400 [facility] Comment on above: Order Comment: No: D o not add to previous drawNo collection time noted on specimen or requisition. The collection timerecorded is the time of receipt in the lab. Performed By: #### 1 0070, 32991, 69480 ####[facility] RBC Auto #/vol (Bld) 3.16 10*6/uL Low 3.80-5.00 [facility] Comment on above: Order Comment: No: D o not add to previous drawNo collection time noted on specimen or requisition. The collection timerecorded is the time of receipt in the lab. Performed By: #### 1 0070, 40715, 33107 ####[facility] WBC Auto #/vol (Bld) 16.12 10*3/uL High 4.00-10.60 [facility] Comment on above: Order Comment: No: D o not add to previous drawNo collection time noted on specimen or requisition. The collection timerecorded is the time of receipt in the lab. Performed By: #### 1 0070, 78061, 76803 ####[facility] MAGNESIUM BLOODon 07-08-2018 Magnesium mass conc 2.3 mg/dL Normal 1.9-2.7 [facility] Comment on above: Order Comment: No: D o not add to previous drawNo collection time noted on specimen or requisition. The collection timerecorded is the time of receipt in the lab. Performed By: #### 1 0070, 18597, 01450 ####[facility] [place] [address], [facility] PHOSPHORUS BLOODon 8 Phosphate mass conc 4.7 mg/dL Normal 2.5-5.0 [facility] Comment on above: Order Comment: No: D o not add to previous drawNo collection time noted on specimen or requisition. The collection timerecorded is the time of receipt in the lab. Performed By: #### 1 0070, 05272, 56800 ####[facility] [facility].[address] POC GLUCOSE LABon 07-08-2018 Glucose mass conc 115 mg/dL High 70-100 [facility] Comment on above: Performed By: #### 0 0121 ####[facility] [facility] [place] [address], [facility] Glucose mass conc 183 mg/dL High 70-100 [facility] Comment on above: Performed By: #### 0 0121 ####[address] BASIC METABOLIC PANELon 06-10 Calcium mass conc 9.5 mg/dL Normal 8.6-10.3 [facility] Comment on above: Order Comment: No: D o not add to previous drawNo collection time noted on specimen or requisition. The collection timerecorded is the time of receipt in the lab. Performed By: #### 1 0070, 91364, 52929 ####[place] [address] [facility] [place] [address], [facility] Chloride molar conc 99 mmol/L Normal 98-107 [facility] Comment on above: Order Comment: No: D o not add to previous drawNo collection time noted on specimen or requisition. The collection timerecorded is the time of receipt in the lab. Performed By: #### 1 0070, 50200, 09447 ####[facility] [facility] [place] [address], [facility] CO2 molar conc 24 mmol/L Normal 21-31 [facility] Comment on above: Order Comment: No: D o not add to previous drawNo collection time noted on specimen or requisition. The collection timerecorded is the time of receipt in the lab. Performed By: #### 1 0070, 33081, 35822 ####[facility] [place] [address], [facility] Creatinine mass conc 0.90 mg/dL Normal 0.60-1.20 [facility] Comment on above: Order Comment: No: D o not add to previous drawNo collection time noted on specimen or requisition. The collection timerecorded is the time of receipt in the lab. Performed By: #### 1 0070, 88726, 38699 ####[facility] [place] [address], [facility] GFR/1.73 sq M predicted among blacks MDRD vol rate/area (S/P/Bld) mL/min/{1.73_m2} Normal >60 [facility] Comment on above: Order Comment: No: D o not add to previous drawNo collection time noted on specimen or requisition. The collection timerecorded is the time of receipt in the lab. Result Comment: Calc ulation may not be valid for patients over 70 years Performed By: #### 1 0070, 22457, 71161 ####[place] [address] [place] [address], [facility] GFR/1.73 sq M predicted among non-blacks MDRD vol rate/area (S/P/Bld) mL/min/{1.73_m2} Normal >60 [facility] Comment on above: Order Comment: No: D o not add to previous drawNo collection time noted on specimen or requisition. The collection timerecorded is the time of receipt in the lab. Result Comment: Calc ulation may not be valid for patients over 70 years Performed By: #### 1 0070, 65664, 45829 ####[place] [address] [place] [address], [facility] Glucose mass conc 207 mg/dL High 70-100 [facility] Comment on above: Order Comment: No: D o not add to previous drawNo collection time noted on specimen or requisition. The collection timerecorded is the time of receipt in the lab. Performed By: #### 1 0070, 24299, 29329 ####[facility] Potassium molar conc 4.4 mmol/L Normal 3.5-5.1 [facility] Comment on above: Order Comment: No: D o not add to previous drawNo collection time noted on specimen or requisition. The collection timerecorded is the time of receipt in the lab. Performed By: #### 1 0, 83531, 80587 ####[facility] [facility].[address] Sodium molar conc 131 mmol/L Low 136-145 [facility] Comment on above: Order Comment: No: D o not add to previous drawNo collection time noted on specimen or requisition. The collection timerecorded is the time of receipt in the lab. Performed By: #### 1 0, 48357, 97737 ####[place] [address] [facility].[address] Urea nitrogen mass conc 19 mg/dL Normal 7-25 [facility] Comment on above: Order Comment: No: D o not add to previous drawNo collection time noted on specimen or requisition. The collection timerecorded is the time of receipt in the lab. Performed By: #### 1 0, 79337, 63479 ####[facility] CALCIUM IONIZED CBGLon 07-07 IONIZED CALCIUM 1.42 mmol/L High 1.12-1.30 [facility] Comment on above: Performed By: #### 1 0070, 69986, 10713 ####[facility] [facility] [place] [address], [facility] CBC W/DIFFon 07-07-2018 ABS BASOPHILS 0.0 10*3/uL Normal 0.0-0.2 [facility] Comment on above: Order Comment: No: D o not add to previous drawNo collection time noted on specimen or requisition. The collection timerecorded is the time of receipt in the lab. Performed By: #### 1 0, , 64756 ####[facility] ABS NEUTROPHILS 12.3 10*3/uL High 1.6-7.6 [facility] Comment on above: Order Comment: No: D o not add to previous drawNo collection time noted on specimen or requisition. The collection timerecorded is the time of receipt in the lab. Performed By: #### 1 0, , 57903 ####[facility] Basophils Auto #/vol (Bld) 0.0 % Normal 0.0-1.0 [facility] Comment on above: Order Comment: No: D o not add to previous drawNo collection time noted on specimen or requisition. The collection timerecorded is the time of receipt in the lab. Performed By: #### 1 0, , 02425 ####[facility] Eosinophils Auto #/vol (Bld) 1.1 10*3/uL High 0.0-0.5 [facility] Comment on above: Order Comment: No: D o not add to previous drawNo collection time noted on specimen or requisition. The collection timerecorded is the time of receipt in the lab. Performed By: #### 1 0, , 87179 ####[facility] Eosinophils/100 WBC Auto (Bld) 6.4 % High 0.0-6.0 [facility] Comment on above: Order Comment: No: D o not add to previous drawNo collection time noted on specimen or requisition. The collection timerecorded is the time of receipt in the lab. Performed By: #### 1 0, , 30039 ####[facility] Erythrocyte distribution width Auto Ratio (RBC) 13.6 % Normal 11.5-15.0 [facility] Comment on above: Order Comment: No: D o not add to previous drawNo collection time noted on specimen or requisition. The collection timerecorded is the time of receipt in the lab. Performed By: #### 1 0070, 93631, 08158 ####[facility] GIANT PLATELETS Present Normal [facility] Comment on above: Order Comment: No: D o not add to previous drawNo collection time noted on specimen or requisition. The collection timerecorded is the time of receipt in the lab. Performed By: #### 1 0070, 41729, 42020 ####[facility] Hematocrit Auto Volume Fraction (Bld) 31.8 % Low 36.0-45.0 [facility] Comment on above: Order Comment: No: D o not add to previous drawNo collection time noted on specimen or requisition. The collection timerecorded is the time of receipt in the lab. Performed By: #### 1 0070, 80162, 67572 ####[facility] Hemoglobin mass conc (Bld) 10.1 g/dL Low 12.0-15.0 [facility] Comment on above: Order Comment: No: D o not add to previous drawNo collection time noted on specimen or requisition. The collection timerecorded is the time of receipt in the lab. Performed By: #### 1 0070, 38914, 66418 ####[facility] Lymphocytes Auto #/vol (Bld) 2.7 10*3/uL Normal 1.2-4.0 [facility] Comment on above: Order Comment: No: D o not add to previous drawNo collection time noted on specimen or requisition. The collection timerecorded is the time of receipt in the lab. Performed By: #### 1 0, 72464, 14854 ####[facility] Lymphocytes/100 WBC Auto (Bld) 15.4 % Low 20.0-45.0 [facility] Comment on above: Order Comment: No: D o not add to previous drawNo collection time noted on specimen or requisition. The collection timerecorded is the time of receipt in the lab. Performed By: #### 1 0, , 74366 ####[facility] MCH Auto Entitic mass (RBC) 31.3 pg Normal 27.0-33.0 [facility] Comment on above: Order Comment: No: D o not add to previous drawNo collection time noted on specimen or requisition. The collection timerecorded is the time of receipt in the lab. Performed By: #### 1 0, , 94722 ####[facility] MCHC Auto mass conc (RBC) 31.8 g/dL Low 32.0-35.0 [facility] Comment on above: Order Comment: No: D o not add to previous drawNo collection time noted on specimen or requisition. The collection timerecorded is the time of receipt in the lab. Performed By: #### 1 0, 97090, 25218 ####[facility] [facility].[address] MCV Auto Entitic volume (RBC) 98.5 fL High 82.0-98.0 [facility] Comment on above: Order Comment: No: D o not add to previous drawNo collection time noted on specimen or requisition. The collection timerecorded is the time of receipt in the lab. Performed By: #### 1 0070, 82269, 84887 ####[facility] METAMYELO 0.9 % High 0.0-0.0 [facility] Comment on above: Order Comment: No: D o not add to previous drawNo collection time noted on specimen or requisition. The collection timerecorded is the time of receipt in the lab. Performed By: #### 1 0070, 19541, 41597 ####[facility] Monocytes Auto #/vol (Bld) 1.0 10*3/uL Normal 0.1-1.0 [facility] Comment on above: Order Comment: No: D o not add to previous drawNo collection time noted on specimen or requisition. The collection timerecorded is the time of receipt in the lab. Performed By: #### 1 0070, 34624, 18487 ####[address] MONOS 5.5 % Normal 5.0-12.0 [facility] Comment on above: Order Comment: No: D o not add to previous drawNo collection time noted on specimen or requisition. The collection timerecorded is the time of receipt in the lab. Performed By: #### 1 0070, 33588, 80854 ####[address] MYELOS 0.9 % High .0-.0 [facility] Comment on above: Order Comment: No: D o not add to previous drawNo collection time noted on specimen or requisition. The collection timerecorded is the time of receipt in the lab. Performed By: #### 1 0070, 20569, 23346 ####[place] [address] Neutrophils/100 WBC Auto (Bld) 70.9 % Normal 40.0-72.0 [facility] Comment on above: Order Comment: No: D o not add to previous drawNo collection time noted on specimen or requisition. The collection timerecorded is the time of receipt in the lab. Performed By: #### 1 0, 70943, 17216 ####[facility] [facility].[address] Nucleated RBC/100 WBC Ratio (Bld) 0 % Normal 0-0 [facility] Comment on above: Order Comment: No: D o not add to previous drawNo collection time noted on specimen or requisition. The collection timerecorded is the time of receipt in the lab. Performed By: #### 1 0, , 62569 ####[facility] [facility].[address] PLAT CNT 382 10*3/uL Normal 150-400 [facility] Comment on above: Order Comment: No: D o not add to previous drawNo collection time noted on specimen or requisition. The collection timerecorded is the time of receipt in the lab. Performed By: #### 1 0, , 72649 ####[facility] [facility].[address] RBC Auto #/vol (Bld) 3.23 10*6/uL Low 3.80-5.00 [facility] Comment on above: Order Comment: No: D o not add to previous drawNo collection time noted on specimen or requisition. The collection timerecorded is the time of receipt in the lab. Performed By: #### 1 0, 79084, 79417 ####[facility] [facility].[address] WBC Auto #/vol (Bld) 17.29 10*3/uL High 4.00-10.60 [facility] Comment on above: Order Comment: No: D o not add to previous drawNo collection time noted on specimen or requisition. The collection timerecorded is the time of receipt in the lab. Performed By: #### 1 0, 09843, 12819 ####[facility] [place] [address].[address] LIVER BATTERYon 07-07-2018 Albumin mass conc 3.0 g/dL Low 3.5-5.7 [facility] Comment on above: Order Comment: No: D o not add to previous drawNo collection time noted on specimen or requisition. The collection timerecorded is the time of receipt in the lab. Performed By: #### 1 0070, 28323, 82550 ####[facility] ALKALINE PHOSPH 99 IU/L Normal 34-104 [facility] Comment on above: Order Comment: No: D o not add to previous drawNo collection time noted on specimen or requisition. The collection timerecorded is the time of receipt in the lab. Performed By: #### 1 0070, 40526, 54268 ####[address] ALT enzyme act/vol 21 U/L Normal 7-52 [facility] Comment on above: Order Comment: No: D o not add to previous drawNo collection time noted on specimen or requisition. The collection timerecorded is the time of receipt in the lab. Performed By: #### 1 0070, 87412, 00026 ####[place] [address] [address] AST enzyme act/vol 23 U/L Normal 13-39 [facility] Comment on above: Order Comment: No: D o not add to previous drawNo collection time noted on specimen or requisition. The collection timerecorded is the time of receipt in the lab. Performed By: #### 1 0070, 42929, 12704 ####[address] Bilirubin mass conc 0.5 mg/dL Normal 0.3-1.0 [facility] Comment on above: Order Comment: No: D o not add to previous drawNo collection time noted on specimen or requisition. The collection timerecorded is the time of receipt in the lab. Performed By: #### 1 0070, 27979, 54255 ####[facility] [facility] [place] [address], [facility] Bilirubin.direct mass conc 0.3 mg/dL High 0.0-0.2 [facility] Comment on above: Order Comment: No: D o not add to previous drawNo collection time noted on specimen or requisition. The collection timerecorded is the time of receipt in the lab. Performed By: #### 1 0070, 70701, 20716 ####[facility] [facility].[address] Protein mass conc 6.5 g/dL Normal 6.0-8.3 [facility] Comment on above: Order Comment: No: D o not add to previous drawNo collection time noted on specimen or requisition. The collection timerecorded is the time of receipt in the lab. Performed By: #### 1 0, 92946, 55176 ####[facility] [facility] [place] [address], [facility] MAGNESIUM BLOODon 07-07-2018 Magnesium mass conc 1.6 mg/dL Low 1.9-2.7 [facility] Comment on above: Order Comment: No: D o not add to previous drawNo collection time noted on specimen or requisition. The collection timerecorded is the time of receipt in the lab. Performed By: #### 1 0070, 48906, 81303 ####[facility]3000 [facility] [place] [address], [facility] PHOSPHORUS BLOODon 8 Phosphate mass conc 3.4 mg/dL Normal 2.5-5.0 [facility] Comment on above: Order Comment: No: D o not add to previous drawNo collection time noted on specimen or requisition. The collection timerecorded is the time of receipt in the lab. Performed By: #### 1 0070, 26929, 15192 ####[facility] [facility] [place] [address], [place] POC GLUCOSE LABon 07-07-2018 Glucose mass conc 157 mg/dL High 70-100 [facility] Comment on above: Performed By: #### 1 0070, 89623, 38399 ####[facility] [place] [address], [place] Glucose mass conc 196 mg/dL High 70-100 [facility] Comment on above: Performed By: #### 1 0070, 40143, 94997 ####[facility] [place] [address], [place] Glucose mass conc 190 mg/dL High 70-100 [facility] Comment on above: Performed By: #### 1 0070, 57861, 07717 ####[facility] [place] [address], [place] Glucose mass conc 189 mg/dL High 70-100 [facility] Comment on above: Performed By: #### 1 0070, 19380, 38999 ####[facility]3000 [facility] [place] [address], [facility] BASIC METABOLIC PANELon 06-09 Calcium mass conc 9.3 mg/dL Normal 8.6-10.3 [facility] Comment on above: Order Comment: No: D o not add to previous draw Performed By: #### 8 5499 ####[facility] [place] [address], [place] Chloride molar conc 100 mmol/L Normal 98-107 [facility] Comment on above: Order Comment: No: D o not add to previous draw Performed By: #### 8 7289 ####[facility] [place] [address], [place] CO2 molar conc 25 mmol/L Normal 21-31 [facility] Comment on above: Order Comment: No: D o not add to previous draw Performed By: #### 8 7739 ####[facility] [address], [facility] Creatinine mass conc 0.97 mg/dL Normal 0.60-1.20 [facility] Comment on above: Order Comment: No: D o not add to previous draw Performed By: #### 8 5499 ####[facility] [place] [address], [facility] GFR/1.73 sq M predicted among blacks MDRD vol rate/area (S/P/Bld) mL/min/{1.73_m2} Normal >60 [facility] Comment on above: Order Comment: No: D o not add to previous draw Result Comment: Calc ulation may not be valid for patients over 70 years Performed By: #### 8 5499 ####[facility] [place] [address], [facility] GFR/1.73 sq M predicted among non-blacks MDRD vol rate/area (S/P/Bld) 56 ml/min/1.73sq m Abnormal >60 [facility] Comment on above: Order Comment: No: D o not add to previous draw Result Comment: Calc ulation may not be valid for patients over 70 years Performed By: #### 8 5499 ####[facility] [place] [address], [facility] Glucose mass conc 213 mg/dL High 70-100 [facility] Comment on above: Order Comment: No: D o not add to previous draw Performed By: #### 8 5499 ####[facility] [place] [address], [place] Potassium molar conc 4.1 mmol/L Normal 3.5-5.1 [facility] Comment on above: Order Comment: No: D o not add to previous draw Performed By: #### 8 5499 ####[facility] [address], [place] Sodium molar conc 132 mmol/L Low 136-145 [facility] Comment on above: Order Comment: No: D o not add to previous draw Performed By: #### 8 5499 ####[facility] [facility] [place] [address], [facility] Urea nitrogen mass conc 19 mg/dL Normal 7-25 [facility] Comment on above: Order Comment: No: D o not add to previous draw Performed By: #### 8 5499 ####[facility] [facility].[address] MAGNESIUM BLOODon 07-06-2018 Magnesium mass conc 1.8 mg/dL Low 1.9-2.7 [facility] Comment on above: Order Comment: No: D o not add to previous drawNo collection time noted on specimen or requisition. The collection timerecorded is the time of receipt in the lab. Performed By: #### 1 0070, 91099, 90461 ####[facility] [facility].[address] PHOSPHORUS BLOODon 8 Phosphate mass conc 3.8 mg/dL Normal 2.5-5.0 [facility] Comment on above: Order Comment: No: D o not add to previous drawNo collection time noted on specimen or requisition. The collection timerecorded is the time of receipt in the lab. Performed By: #### 1 0070, 47153, 83703 ####[facility] [facility] [place] [address], [facility] POC GLUCOSE LABon 07-06-2018 Glucose mass conc 217 mg/dL High 70-100 [facility] Comment on above: Performed By: #### 1 0070, 58969, 37149 ####[facility] [facility] [place] [address], [facility] Glucose mass conc 197 mg/dL High 70-100 [facility] Comment on above: Performed By: #### 1 0070, 79151, 85675 ####[facility] [address], [facility] Glucose mass conc 160 mg/dL High 70-100 [facility] Comment on above: Performed By: #### 8 5499 ####[facility] [place] [address], [facility] TRIGLYCERIDES BLOODon 2017 Triglyceride mass conc 256 mg/dL High 40-149 [facility] Comment on above: Order Comment: No: D o not add to previous draw Result Comment: TRIG LYCERIDE REFERENCE RANGE:20 YEARS AND OLDER CARDIOVASCULAR RISKLESS THAN 150 mg/dl LOW [id number] TO 199 mg/dl BORDERLINE [id number] mg/dl AND GREATER HIGH RISK Performed By: #### 8 5499 ####[address] BASIC METABOLIC PANELon 06-09 Calcium mass conc 8.7 mg/dL Normal 8.6-10.3 [facility] Comment on above: Order Comment: No: D o not add to previous draw Performed By: #### 8 5499 ####[facility] [facility] [place] [address], [facility] Chloride molar conc 105 mmol/L Normal 98-107 [facility] Comment on above: Order Comment: No: D o not add to previous draw Performed By: #### 8 5499 ####[facility] [address], [facility] CO2 molar conc 24 mmol/L Normal 21-31 [facility] Comment on above: Order Comment: No: D o not add to previous draw Performed By: #### 8 5499 ####[facility] [address], [facility] Creatinine mass conc 1.05 mg/dL Normal 0.60-1.20 [facility] Comment on above: Order Comment: No: D o not add to previous draw Performed By: #### 8 5499 ####[facility] [facility] [place] [address], [facility] GFR/1.73 sq M predicted among blacks MDRD vol rate/area (S/P/Bld) mL/min/{1.73_m2} Normal >60 [facility] Comment on above: Order Comment: No: D o not add to previous draw Result Comment: Calc ulation may not be valid for patients over 70 years Performed By: #### 8 5499 ####[facility] [facility] [place] [address], [facility] GFR/1.73 sq M predicted among non-blacks MDRD vol rate/area (S/P/Bld) 50 ml/min/1.73sq m Abnormal >60 [facility] Comment on above: Order Comment: No: D o not add to previous draw Result Comment: Calc ulation may not be valid for patients over 70 years Performed By: #### 8 5499 ####[facility] [facility] [place] [address], [facility] Glucose mass conc 185 mg/dL High 70-100 [facility] Comment on above: Order Comment: No: D o not add to previous draw Performed By: #### 8 5499 ####[facility] [facility] [place] [address], [facility] Potassium molar conc 3.8 mmol/L Normal 3.5-5.1 [facility] Comment on above: Order Comment: No: D o not add to previous draw Performed By: #### 8 5499 ####[facility] [facility] [place] [address], [place] Sodium molar conc 138 mmol/L Normal 136-145 [facility] Comment on above: Order Comment: No: D o not add to previous draw Performed By: #### 8 5499 ####[facility] [facility] [place] [address], [facility] Urea nitrogen mass conc 18 mg/dL Normal 7-25 [facility] Comment on above: Order Comment: No: D o not add to previous draw Performed By: #### 8 5499 ####[facility] CBC W/DIFFon 07-05-2018 ABS BASOPHILS 0.0 10*3/uL Normal 0.0-0.2 [facility] Comment on above: Order Comment: No: D o not add to previous draw Performed By: #### 8 5499 ####[facility] ABS NEUTROPHILS 9.5 10*3/uL High 1.6-7.6 [facility] Comment on above: Order Comment: No: D o not add to previous draw Performed By: #### 8 5499 ####[facility] Basophils Auto #/vol (Bld) 0.0 % Normal 0.0-1.0 [facility] Comment on above: Order Comment: No: D o not add to previous draw Performed By: #### 8 5499 ####[facility] [place] [address], [facility] Eosinophils Auto #/vol (Bld) 0.2 10*3/uL Normal 0.0-0.5 [facility] Comment on above: Order Comment: No: D o not add to previous draw Performed By: #### 8 5499 ####[facility] Eosinophils/100 WBC Auto (Bld) 1.8 % Normal 0.0-6.0 [facility] Comment on above: Order Comment: No: D o not add to previous draw Performed By: #### 8 5499 ####[facility] Erythrocyte distribution width Auto Ratio (RBC) 13.8 % Normal 11.5-15.0 [facility] Comment on above: Order Comment: No: D o not add to previous draw Performed By: #### 8 5499 ####[facility] Hematocrit Auto Volume Fraction (Bld) 28.7 % Low 36.0-45.0 [facility] Comment on above: Order Comment: No: D o not add to previous draw Performed By: #### 8 5499 ####[facility] Hemoglobin mass conc (Bld) 8.9 g/dL Low 12.0-15.0 [facility] Comment on above: Order Comment: No: D o not add to previous draw Performed By: #### 8 5499 ####[facility] [place] [address] Lymphocytes Auto #/vol (Bld) 1.3 10*3/uL Normal 1.2-4.0 [facility] Comment on above: Order Comment: No: D o not add to previous draw Performed By: #### 8 5499 ####[facility] [place] [address] Lymphocytes/100 WBC Auto (Bld) 10.9 % Low 20.0-45.0 [facility] Comment on above: Order Comment: No: D o not add to previous draw Performed By: #### 8 5499 ####[facility] [place] [address] MCH Auto Entitic mass (RBC) 30.5 pg Normal 27.0-33.0 [facility] Comment on above: Order Comment: No: D o not add to previous draw Performed By: #### 8 5499 ####[facility] [place] [address] MCHC Auto mass conc (RBC) 31.0 g/dL Low 32.0-35.0 [facility] Comment on above: Order Comment: No: D o not add to previous draw Performed By: #### 8 5499 ####[facility] MCV Auto Entitic volume (RBC) 98.3 fL High 82.0-98.0 [facility] Comment on above: Order Comment: No: D o not add to previous draw Performed By: #### 8 5499 ####[facility] METAMYELO 0.9 % High 0.0-0.0 [facility] Comment on above: Order Comment: No: D o not add to previous draw Performed By: #### 8 5499 ####[facility] Monocytes Auto #/vol (Bld) 0.8 10*3/uL Normal 0.1-1.0 [facility] Comment on above: Order Comment: No: D o not add to previous draw Performed By: #### 8 5499 ####[facility] MONOS 6.4 % Normal 5.0-12.0 [facility] Comment on above: Order Comment: No: D o not add to previous draw Performed By: #### 8 5499 ####[facility] MYELOS 0.9 % High .0-.0 [facility] Comment on above: Order Comment: No: D o not add to previous draw Performed By: #### 8 5499 ####[facility] Neutrophils/100 WBC Auto (Bld) 79.1 % High 40.0-72.0 [facility] Comment on above: Order Comment: No: D o not add to previous draw Performed By: #### 8 5499 ####[facility] Nucleated RBC/100 WBC Ratio (Bld) 0 % Normal 0-0 [facility] Comment on above: Order Comment: No: D o not add to previous draw Performed By: #### 8 5499 ####[facility] [facility] [place] [address], [facility] PLAT CNT 284 10*3/uL Normal 150-400 [facility] Comment on above: Order Comment: No: D o not add to previous draw Performed By: #### 8 5499 ####[facility] [facility].[address] RBC Auto #/vol (Bld) 2.92 10*6/uL Low 3.80-5.00 [facility] Comment on above: Order Comment: No: D o not add to previous draw Performed By: #### 8 5499 ####[facility] [facility].[address] WBC Auto #/vol (Bld) 12.05 10*3/uL High 4.00-10.60 [facility] Comment on above: Order Comment: No: D o not add to previous draw Performed By: #### 8 5499 ####[facility] [facility].[address] MAGNESIUM BLOODon 07-05-2018 Magnesium mass conc 1.8 mg/dL Low 1.9-2.7 [facility] Comment on above: Order Comment: No: D o not add to previous draw Performed By: #### 8 5499 ####[facility] [address], [facility] PHOSPHORUS BLOODon 8 Phosphate mass conc 3.4 mg/dL Normal 2.5-5.0 [facility] Comment on above: Order Comment: No: D o not add to previous draw Performed By: #### 8 5499 ####[facility] [place] [address], [facility] POC GLUCOSE LABon 07-05-2018 Glucose mass conc 162 mg/dL High 70-100 [facility] Comment on above: Performed By: #### 8 5499 ####[facility] [facility] [place] [address], [facility] Glucose mass conc 198 mg/dL High 70-100 [facility] Comment on above: Performed By: #### 8 5499 ####[facility] [facility] [place] [address], [facility] TRIGLYCERIDES BLOODon 2017 Triglyceride mass conc 204 mg/dL High 40-149 [facility] Comment on above: Order Comment: No: D o not add to previous draw Result Comment: TRIG LYCERIDE REFERENCE RANGE:20 YEARS AND OLDER CARDIOVASCULAR RISKLESS THAN 150 mg/dl LOW [id number] TO 199 mg/dl BORDERLINE [id number] mg/dl AND GREATER HIGH RISK Performed By: #### 8 5499 ####[facility] [facility] [place] [address], [facility] BASIC METABOLIC PANELon 06-09 Calcium mass conc 8.8 mg/dL Normal 8.6-10.3 [facility] Comment on above: Order Comment: No: D o not add to previous draw Performed By: #### 8 5499 ####[facility] [facility] [place] [address], [facility] Chloride molar conc 105 mmol/L Normal 98-107 [facility] Comment on above: Order Comment: No: D o not add to previous draw Performed By: #### 8 5499 ####[facility] [facility] [place] [address], [facility] CO2 molar conc 22 mmol/L Normal 21-31 [facility] Comment on above: Order Comment: No: D o not add to previous draw Performed By: #### 8 5499 ####[facility] [facility] [place] [address], [facility] Creatinine mass conc 1.07 mg/dL Normal 0.60-1.20 [facility] Comment on above: Order Comment: No: D o not add to previous draw Performed By: #### 8 5499 ####[facility] [facility] [place] [address], [place] GFR/1.73 sq M predicted among blacks MDRD vol rate/area (S/P/Bld) mL/min/{1.73_m2} Normal >60 [facility] Comment on above: Order Comment: No: D o not add to previous draw Result Comment: Calc ulation may not be valid for patients over 70 years Performed By: #### 8 [id number] ####[facility] [facility] [place] [address], [facility] GFR/1.73 sq M predicted among non-blacks MDRD vol rate/area (S/P/Bld) 50 ml/min/1.73sq m Abnormal >60 [facility] Comment on above: Order Comment: No: D o not add to previous draw Result Comment: Calc ulation may not be valid for patients over 70 years Performed By: #### 8 [id number] ####[facility] [facility] [place] [place] [address], [facility] Glucose mass conc 188 mg/dL High 70-100 [facility] Comment on above: Order Comment: No: D o not add to previous draw Performed By: #### 8 5499 ####[facility] [facility] [place] [address], [place] Potassium molar conc 3.7 mmol/L Normal 3.5-5.1 [facility] Comment on above: Order Comment: No: D o not add to previous draw Performed By: #### 8 5499 ####[facility] [facility] [place] [address], [place] Sodium molar conc 136 mmol/L Normal 136-145 [facility] Comment on above: Order Comment: No: D o not add to previous draw Performed By: #### 8 5499 ####[facility] [facility].[address] Urea nitrogen mass conc 14 mg/dL Normal 7-25 [facility] Comment on above: Order Comment: No: D o not add to previous draw Performed By: #### 8 5499 ####[facility] [facility].[address] CBC W/DIFFon 07-04-2018 ABS BASOPHILS 0.0 10*3/uL Normal 0.0-0.2 [facility] Comment on above: Performed By: #### 8 5499 ####[facility] [facility].[address] ABS NEUTROPHILS 9.7 10*3/uL High 1.6-7.6 [facility] Comment on above: Performed By: #### 8 5499 ####[facility] [facility].[address] Basophils Auto #/vol (Bld) 0.0 % Normal 0.0-1.0 [facility] Comment on above: Performed By: #### 8 [id number] ####[facility] [facility].[address] Eosinophils Auto #/vol (Bld) 0.2 10*3/uL Normal 0.0-0.5 [facility] Comment on above: Performed By: #### 8 5499 ####[facility] [facility].[address] Eosinophils/100 WBC Auto (Bld) 1.8 % Normal 0.0-6.0 [facility] Comment on above: Performed By: #### 8 5499 ####[facility] [facility].[address] Erythrocyte distribution width Auto Ratio (RBC) 13.7 % Normal 11.5-15.0 [facility] Comment on above: Performed By: #### 8 [id number] ####[facility] GIANT PLATELETS Present Normal [facility] Comment on above: Performed By: #### 8 [id number] ####[facility] Hematocrit Auto Volume Fraction (Bld) 31.4 % Low 36.0-45.0 [facility] Comment on above: Performed By: #### 8 [id number] ####[facility] Hemoglobin mass conc (Bld) 10.0 g/dL Low 12.0-15.0 [facility] Comment on above: Performed By: #### 8 [id number] ####[facility] Lymphocytes Auto #/vol (Bld) 1.5 10*3/uL Normal 1.2-4.0 [facility] Comment on above: Performed By: #### 8 5499 ####[facility] Lymphocytes/100 WBC Auto (Bld) 11.8 % Low 20.0-45.0 [facility] Comment on above: Performed By: #### 8 [id number] ####[facility] MCH Auto Entitic mass (RBC) 30.8 pg Normal 27.0-33.0 [facility] Comment on above: Performed By: #### 8 [id number] ####[facility] MCHC Auto mass conc (RBC) 31.8 g/dL Low 32.0-35.0 [facility] Comment on above: Performed By: #### 8 5499 ####[facility] [facility].[address] MCV Auto Entitic volume (RBC) 96.6 fL Normal 82.0-98.0 [facility] Comment on above: Performed By: #### 8 [id number] ####[facility] [facility].[address] METAMYELO 0.9 % High 0.0-0.0 [facility] Comment on above: Performed By: #### 8 5499 ####[facility] Monocytes Auto #/vol (Bld) 1.0 10*3/uL Normal 0.1-1.0 [facility] Comment on above: Performed By: #### 8 5499 ####[facility] MONOS 8.2 % Normal 5.0-12.0 [facility] Comment on above: Performed By: #### 8 5499 ####[facility] Neutrophils/100 WBC Auto (Bld) 77.3 % High 40.0-72.0 [facility] Comment on above: Performed By: #### 8 5499 ####[facility] NRBC SCAN Present Normal [facility] Comment on above: Performed By: #### 8 5499 ####[facility] [facility].[address] Nucleated RBC/100 WBC Ratio (Bld) 0 % Normal 0-0 [facility] Comment on above: Performed By: #### 8 [id number] ####[facility] [facility] [place] [address], [facility] PLAT CNT 300 10*3/uL Normal 150-400 [facility] Comment on above: Performed By: #### 8 5499 ####[facility] [address], [facility] RBC Auto #/vol (Bld) 3.25 10*6/uL Low 3.80-5.00 [facility] Comment on above: Performed By: #### 8 5499 ####[facility] WBC Auto #/vol (Bld) 12.52 10*3/uL High 4.00-10.60 [facility] Comment on above: Performed By: #### 8 5499 ####[facility] MAGNESIUM BLOODon 07-04-2018 Magnesium mass conc 1.9 mg/dL Normal 1.9-2.7 [facility] Comment on above: Order Comment: No: D o not add to previous draw Performed By: #### 8 5499 ####[facility] [address].[address] PHOSPHORUS BLOODon 8 Phosphate mass conc 2.8 mg/dL Normal 2.5-5.0 [facility] Comment on above: Order Comment: No: D o not add to previous draw Performed By: #### 8 5499 ####[facility] POC GLUCOSE LABon 07-04-2018 Glucose mass conc 161 mg/dL High 70-100 [facility] Comment on above: Performed By: #### 8 5499 ####[facility] Glucose mass conc 169 mg/dL High 70-100 [facility] Comment on above: Performed By: #### 8 5499 ####[facility] [place] [address], [place] Glucose mass conc 222 mg/dL High 70-100 [facility] Comment on above: Performed By: #### 8 5499 ####[facility] [place] [address], [place] Glucose mass conc 186 mg/dL High 70-100 [facility] Comment on above: Performed By: #### 8 5499 ####[facility] [place] [address], [place] Glucose mass conc 153 mg/dL High 70-100 [facility] Comment on above: Performed By: #### 8 5499 ####[facility] [address], [facility] BASIC METABOLIC PANELon 08-2 Calcium mass conc 8.1 mg/dL Low 8.6-10.3 [facility] Comment on above: Order Comment: No: D o not add to previous draw Performed By: #### 8 5499 ####[facility] [place] [address], [place] Chloride molar conc 104 mmol/L Normal 98-107 [facility] Comment on above: Order Comment: No: D o not add to previous draw Performed By: #### 8 5499 ####[facility] [place] [address], [place] CO2 molar conc 21 mmol/L Normal 21-31 [facility] Comment on above: Order Comment: No: D o not add to previous draw Performed By: #### 8 5499 ####[facility] [place] [address], [place] Creatinine mass conc 1.12 mg/dL Normal 0.60-1.20 [facility] Comment on above: Order Comment: No: D o not add to previous draw Performed By: #### 8 5499 ####[facility] [address], [place] GFR/1.73 sq M predicted among blacks MDRD vol rate/area (S/P/Bld) 57 ml/min/1.73sq m Abnormal >60 [facility] Comment on above: Order Comment: No: D o not add to previous draw Result Comment: Calc ulation may not be valid for patients over 70 years Performed By: #### 8 5499 ####[facility] [address], [facility] GFR/1.73 sq M predicted among non-blacks MDRD vol rate/area (S/P/Bld) 47 ml/min/1.73sq m Abnormal >60 [facility] Comment on above: Order Comment: No: D o not add to previous draw Result Comment: Calc ulation may not be valid for patients over 70 years Performed By: #### 8 5499 ####[facility]3000 [facility] [place] [address], [facility] Glucose mass conc 246 mg/dL High 70-100 [facility] Comment on above: Order Comment: No: D o not add to previous draw Performed By: #### 8 5499 ####[facility] [facility] [place] [address], [place] Potassium molar conc 4.4 mmol/L Normal 3.5-5.1 [facility] Comment on above: Order Comment: No: D o not add to previous draw Performed By: #### 8 5499 ####[facility] [place] [address], [place] Sodium molar conc 132 mmol/L Low 136-145 [facility] Comment on above: Order Comment: No: D o not add to previous draw Performed By: #### 8 5499 ####[facility] [place] [address], [place] Urea nitrogen mass conc 10 mg/dL Normal 7-25 [facility] Comment on above: Order Comment: No: D o not add to previous draw Performed By: #### 8 5499 ####[facility] CBC COMPLETE BLOOD COUNTon 0 07-03-2018 Erythrocyte distribution width Auto Ratio (RBC) 13.7 % Normal 11.5-15.0 [facility] Comment on above: Order Comment: No: D o not add to previous draw Performed By: #### 8 5499 ####[facility]3000 [facility] Hematocrit Auto Volume Fraction (Bld) 36.3 % Normal 36.0-45.0 [facility] Comment on above: Order Comment: No: D o not add to previous draw Performed By: #### 8 5499 ####[facility] Hemoglobin mass conc (Bld) 11.3 g/dL Low 12.0-15.0 [facility] Comment on above: Order Comment: No: D o not add to previous draw Performed By: #### 8 5499 ####[facility] [facility].[address] MCH Auto Entitic mass (RBC) 30.5 pg Normal 27.0-33.0 [facility] Comment on above: Order Comment: No: D o not add to previous draw Performed By: #### 8 5499 ####[facility] [facility].[address] MCHC Auto mass conc (RBC) 31.1 g/dL Low 32.0-35.0 [facility] Comment on above: Order Comment: No: D o not add to previous draw Performed By: #### 8 5499 ####[facility] MCV Auto Entitic volume (RBC) 97.8 fL Normal 82.0-98.0 [facility] Comment on above: Order Comment: No: D o not add to previous draw Performed By: #### 8 5499 ####[facility] Nucleated RBC/100 WBC Ratio (Bld) 0 % Normal 0-0 [facility] Comment on above: Order Comment: No: D o not add to previous draw Performed By: #### 8 5499 ####[facility] [address], [facility] PLAT CNT 313 10*3/uL Normal 150-400 [facility] Comment on above: Order Comment: No: D o not add to previous draw Performed By: #### 8 5499 ####[facility] [place] AVJerri.[address] RBC Auto #/vol (Bld) 3.71 10*6/uL Low 3.80-5.00 [facility] Comment on above: Order Comment: No: D o not add to previous draw Performed By: #### 8 5499 ####[facility] WBC Auto #/vol (Bld) 9.64 10*3/uL Normal 4.00-10.60 [facility] Comment on above: Order Comment: No: D o not add to previous draw Performed By: #### 8 5499 ####[facility] LIVER BATTERYon 07-03-2018 Albumin mass conc 2.8 g/dL Low 3.5-5.7 [facility] Comment on above: Order Comment: No: D o not add to previous draw Performed By: #### 8 5499 ####[facility] [address], [facility] ALKALINE PHOSPH 87 IU/L Normal 34-104 [facility] Comment on above: Order Comment: No: D o not add to previous draw Performed By: #### 8 5499 ####[facility] [address], [facility] ALT enzyme act/vol 17 U/L Normal 7-52 [facility] Comment on above: Order Comment: No: D o not add to previous draw Performed By: #### 8 5499 ####[facility] [place] [address], [place] AST enzyme act/vol 17 U/L Normal 13-39 [facility] Comment on above: Order Comment: No: D o not add to previous draw Performed By: #### 8 5499 ####[facility] [address], [facility] Bilirubin mass conc 1.0 mg/dL Normal 0.3-1.0 [facility] Comment on above: Order Comment: No: D o not add to previous draw Performed By: #### 8 5499 ####[facility] [address], [facility] Bilirubin.direct mass conc 0.6 mg/dL High 0.0-0.2 [facility] Comment on above: Order Comment: No: D o not add to previous draw Performed By: #### 8 5499 ####[facility] [address], [facility] Protein mass conc 5.6 g/dL Low 6.0-8.3 [facility] Comment on above: Order Comment: No: D o not add to previous draw Performed By: #### 8 5499 ####[facility] [place] [address], [facility] MAGNESIUM BLOODon 07-03-2018 Magnesium mass conc 2.3 mg/dL Normal 1.9-2.7 [facility] Comment on above: Order Comment: No: D o not add to previous draw Performed By: #### 8 5499 ####[facility] [address] Operative Reporton 8 Operative Report MR#: [id number] [facility] Pt[facility] Name: Vidhya Giordano Room #: [id number] Discharge Date: Birthdate: 1940 OPERATIVE REPORTDATE OF SURGERY: 07/02/2018SURGEON: Meg Abebe M.D.PREOPERATIVE DIAGNOSIS: Status post repair of enterocutaneous fistula andanastomosis leak.POSTOPERATIVE DIAGNOSIS: Status post repair of enterocutaneous fistula andanastomosis leak.OPERATION PERFORMED: Exploratory laparotomy, extensive lysis of adhesionmore than 2 hours, small-bowel resection with functional bum-wb-csodahnoxxcaso and repair of a transverse colon iatrogenic [...] time-out, the incision staple was reopened and hgpzjoueiyykdfyec-tf-ynqxd suture was removed. The fascia was opened. [...] divided with the LigaSure. Then, a functional ihz-ty-nsxpsaesnogmja was performed by a blue load 6 [...] 07/02/2018/07:16 P/Meg Abebe M.D.Date Trans: 07/02/2018 10:15 P/[id number]:[id number] c: Kalin Santos D.O. [address] [place] [id number] Normal [facility] PHOSPHORUS BLOODon 8 Phosphate mass conc 2.3 mg/dL Low 2.5-5.0 [facility] Comment on above: Order Comment: No: D o not add to previous draw Performed By: #### 8 5499 ####[facility] [place] [address], [facility] POC GLUCOSE LABon 07-03-2018 Glucose mass conc 169 mg/dL High 70-100 [facility] Comment on above: Performed By: #### 8 5499 ####[facility] [place] [address], [facility] Glucose mass conc 141 mg/dL High 70-100 [facility] Comment on above: Performed By: #### 8 5499 ####[facility] [address], [facility] Glucose mass conc 221 mg/dL High 70-100 [facility] Comment on above: Performed By: #### 8 5499 ####[facility] [address], [facility] *BLOOD CULTUREon 07-02-2018 Bacteria identified in Blood by Culture Clinical Report: (D) Specimen: BLOOD CULTURE Collected: 07/02/2018 21:59 Status: Final Last Updated: 07/08/2018 07:42 CULT RES (Final) No Growth Day 5 Normal [facility] Comment on above: Performed By: #### 8 5499 ####[facility] [facility] [place] [address], [facility] Bacteria identified in Blood by Culture Clinical Report: (D) Specimen: BLOOD CULTURE Collected: 07/02/2018 21:50 Status: Final Last Updated: 07/08/2018 07:42 (1) left hand CULT RES (Final) No Growth Day 5 Normal [facility] Comment on above: Order Comment: left hand Performed By: #### 8 5499 ####[facility] [place] [address], [facility] BASIC METABOLIC PANELon 06-09 Calcium mass conc 8.2 mg/dL Low 8.6-10.3 [facility] Comment on above: Order Comment: No: D o not add to previous draw Performed By: #### 5 6101, 55612 ####[facility] [address], [facility] Chloride molar conc 103 mmol/L Normal 98-107 [facility] Comment on above: Order Comment: No: D o not add to previous draw Performed By: #### 5 0921, 43762 ####[facility] [address], [facility] CO2 molar conc 20 mmol/L Low 21-31 [facility] Comment on above: Order Comment: No: D o not add to previous draw Performed By: #### 5 6101, 65788 ####[facility] [place] [address], [facility] Creatinine mass conc 1.09 mg/dL Normal 0.60-1.20 [facility] Comment on above: Order Comment: No: D o not add to previous draw Performed By: #### 5 6101, 53205 ####[facility] [facility] [place] [address], [facility] GFR/1.73 sq M predicted among blacks MDRD vol rate/area (S/P/Bld) 59 ml/min/1.73sq m Abnormal >60 [facility] Comment on above: Order Comment: No: D o not add to previous draw Result Comment: Calc ulation may not be valid for patients over 70 years Performed By: #### 5 6101, 17697 ####[facility] [facility] [place] [address], [facility] GFR/1.73 sq M predicted among non-blacks MDRD vol rate/area (S/P/Bld) 48 ml/min/1.73sq m Abnormal >60 [facility] Comment on above: Order Comment: No: D o not add to previous draw Result Comment: Calc ulation may not be valid for patients over 70 years Performed By: #### 5 1094, 23970 ####[facility] [address], [facility] Glucose mass conc 272 mg/dL High 70-100 [facility] Comment on above: Order Comment: No: D o not add to previous draw Performed By: #### 5 610, 48433 ####[facility] [place] [address], [place] Potassium molar conc 3.6 mmol/L Normal 3.5-5.1 [facility] Comment on above: Order Comment: No: D o not add to previous draw Performed By: #### 5 610, 81133 ####[facility] [place] [address], [place] Sodium molar conc 132 mmol/L Low 136-145 [facility] Comment on above: Order Comment: No: D o not add to previous draw Performed By: #### 5 610, 86747 ####[facility] [place] [address], [facility] Urea nitrogen mass conc 10 mg/dL Normal 7-25 [facility] Comment on above: Order Comment: No: D o not add to previous draw Performed By: #### 5 610, 33125 ####[facility] [place] [address], [place] Calcium mass conc 8.4 mg/dL Low 8.6-10.3 [facility] Comment on above: Order Comment: No: D o not add to previous draw Performed By: #### 5 610, 58988 ####[facility] [place] [address], [place] Chloride molar conc 106 mmol/L Normal 98-107 [facility] Comment on above: Order Comment: No: D o not add to previous draw Performed By: #### 5 610, 47221 ####[facility] [place] [address], [place] CO2 molar conc 24 mmol/L Normal 21-31 [facility] Comment on above: Order Comment: No: D o not add to previous draw Performed By: #### 5 610, 04832 ####[facility] [address], [facility] Creatinine mass conc 1.12 mg/dL Normal 0.60-1.20 [facility] Comment on above: Order Comment: No: D o not add to previous draw Performed By: #### 5 610, 62160 ####[facility] [address], [facility] GFR/1.73 sq M predicted among blacks MDRD vol rate/area (S/P/Bld) 57 ml/min/1.73sq m Abnormal >60 [facility] Comment on above: Order Comment: No: D o not add to previous draw Result Comment: Calc ulation may not be valid for patients over 70 years Performed By: #### 5 610, 77757 ####[facility] [address], [facility] GFR/1.73 sq M predicted among non-blacks MDRD vol rate/area (S/P/Bld) 47 ml/min/1.73sq m Abnormal >60 [facility] Comment on above: Order Comment: No: D o not add to previous draw Result Comment: Calc ulation may not be valid for patients over 70 years Performed By: #### 5 5752, 21616 ####[facility] [address], [facility] Glucose mass conc 149 mg/dL High 70-100 [facility] Comment on above: Order Comment: No: D o not add to previous draw Performed By: #### 5 2760, 00662 ####[facility] [place] [address], [facility] Potassium molar conc 3.8 mmol/L Normal 3.5-5.1 [facility] Comment on above: Order Comment: No: D o not add to previous draw Performed By: #### 5 610, 61141 ####[facility] [place] [address], [place] Sodium molar conc 136 mmol/L Normal 136-145 [facility] Comment on above: Order Comment: No: D o not add to previous draw Performed By: #### 5 610, 71779 ####[facility] Urea nitrogen mass conc 12 mg/dL Normal 7-25 [facility] Comment on above: Order Comment: No: D o not add to previous draw Performed By: #### 5 610, 99927 ####[facility] CBC COMPLETE BLOOD COUNTon 0 07-02-2018 Erythrocyte distribution width Auto Ratio (RBC) 13.8 % Normal 11.5-15.0 [facility] Comment on above: Order Comment: No: D o not add to previous [id number]- PATIENT NOT IN ROOM; STILL IN O.R. SHOULD BE RN DRAW, PER RN-TECH LM Performed By: #### 5 610, 94709 ####[facility] Hematocrit Auto Volume Fraction (Bld) 36.9 % Normal 36.0-45.0 [facility] Comment on above: Order Comment: No: D o not add to previous [id number]- PATIENT NOT IN ROOM; STILL IN O.R. SHOULD BE RN DRAW, PER RN-TECH LM Performed By: #### 5 6101, 81110 ####[facility] [facility].[address] Hemoglobin mass conc (Bld) 11.6 g/dL Low 12.0-15.0 [facility] Comment on above: Order Comment: No: D o not add to previous [id number]- PATIENT NOT IN ROOM; STILL IN O.R. SHOULD BE RN DRAW, PER RN-TECH LM Performed By: #### 5 6101, 45839 ####[facility] [facility] [place] [address], [facility] MCH Auto Entitic mass (RBC) 31.1 pg Normal 27.0-33.0 [facility] Comment on above: Order Comment: No: D o not add to previous [id number]- PATIENT NOT IN ROOM; STILL IN O.R. SHOULD BE RN DRAW, PER RN-TECH LM Performed By: #### 5 610, 12652 ####[facility] MCHC Auto mass conc (RBC) 31.4 g/dL Low 32.0-35.0 [facility] Comment on above: Order Comment: No: D o not add to previous [id number]- PATIENT NOT IN ROOM; STILL IN O.R. SHOULD BE RN DRAW, PER RN-TECH LM Performed By: #### 5 610, [address] ####[place] [address] [address] MCV Auto Entitic volume (RBC) 98.9 fL High 82.0-98.0 [facility] Comment on above: Order Comment: No: D o not add to previous [id number]- PATIENT NOT IN ROOM; STILL IN O.R. SHOULD BE RN DRAW, PER RN-TECH LM Performed By: #### 5 610, 75053 ####[address] Nucleated RBC/100 WBC Ratio (Bld) 0 % Normal 0-0 [facility] Comment on above: Order Comment: No: D o not add to previous [id number]- PATIENT NOT IN ROOM; STILL IN O.R. SHOULD BE RN DRAW, PER RN-TECH LM Performed By: #### 5 610, 79514 ####[place] [address] [address] PLAT CNT 165 10*3/uL Normal 150-400 [facility] Comment on above: Order Comment: No: D o not add to previous [id number]- PATIENT NOT IN ROOM; STILL IN O.R. SHOULD BE RN DRAW, PER RN-TECH LM Performed By: #### 5 610, 55320 ####[facility] RBC Auto #/vol (Bld) 3.73 10*6/uL Low 3.80-5.00 The [facility] Comment on above: Order Comment: No: D o not add to previous [id number]- PATIENT NOT IN ROOM; STILL IN O.R. SHOULD BE RN DRAW, PER RN-TECH LM Performed By: #### 5 610, 72946 ####[facility] [facility].[address] WBC Auto #/vol (Bld) 9.50 10*3/uL Normal 4.00-10.60 [facility] Comment on above: Order Comment: No: D o not add to previous [id number]- PATIENT NOT IN ROOM; STILL IN O.R. SHOULD BE RN DRAW, PER RN-TECH LM Performed By: #### 5 610, 50667 ####[facility] [facility].[address] Erythrocyte distribution width Auto Ratio (RBC) 13.9 % Normal 11.5-15.0 [facility] Comment on above: Order Comment: No: D o not add to previous draw Performed By: #### 5 610, 53770 ####[place] [address] [facility].[address] Hematocrit Auto Volume Fraction (Bld) 34.4 % Low 36.0-45.0 [facility] Comment on above: Order Comment: No: D o not add to previous draw Performed By: #### 5 610, 01854 ####[facility]3000 [facility].[address] Hemoglobin mass conc (Bld) 10.8 g/dL Low 12.0-15.0 [facility] Comment on above: Order Comment: No: D o not add to previous draw Performed By: #### 5 610, 14092 ####[facility]3000 [facility] [place] [address], [facility] MCH Auto Entitic mass (RBC) 31.1 pg Normal 27.0-33.0 [facility] Comment on above: Order Comment: No: D o not add to previous draw Performed By: #### 5 610, 44494 ####[facility] MCHC Auto mass conc (RBC) 31.4 g/dL Low 32.0-35.0 [facility] Comment on above: Order Comment: No: D o not add to previous draw Performed By: #### 5 6100, 42503 ####[facility] MCV Auto Entitic volume (RBC) 99.1 fL High 82.0-98.0 [facility] Comment on above: Order Comment: No: D o not add to previous draw Performed By: #### 5 6100, 76963 ####[facility]3000 [facility].[address] Nucleated RBC/100 WBC Ratio (Bld) 0 % Normal 0-0 [facility] Comment on above: Order Comment: No: D o not add to previous draw Performed By: #### 5 6100, 59245 ####[facility] PLAT CNT 232 10*3/uL Normal 150-400 [facility] Comment on above: Order Comment: No: D o not add to previous draw Performed By: #### 5 610, 87825 ####[facility] RBC Auto #/vol (Bld) 3.47 10*6/uL Low 3.80-5.00 [facility] Comment on above: Order Comment: No: D o not add to previous draw Performed By: #### 5 610, 58442 ####[facility] WBC Auto #/vol (Bld) 9.09 10*3/uL Normal 4.00-10.60 [facility] Comment on above: Order Comment: No: D o not add to previous draw Performed By: #### 5 6101, 38172 ####[facility] MAGNESIUM BLOODon 07-02-2018 Magnesium mass conc 1.6 mg/dL Low 1.9-2.7 [facility] Comment on above: Order Comment: No: D o not add to previous draw Performed By: #### 5 6101, 82005 ####[facility] Operative Reporton 8 Operative Report MR#: [id number] [facility] Name[facility] Vidhya Giordano Room #: 3AB [id number] Discharge Date: Birthdate: 1940 OPERATIVE REPORTDATE OF [...] The fascia wasclosed by interrupted 0 PDS ujghnr-ps-tqiqk suture. The skin was closed byskin jd. The Prevena wound VAC was applied. Operation was completedwithout complication.I was present during the entire operation.Electronically Signed by:Meg Abebe M.D. 07/07/2018 12:44 P Meg Abebe M.D.Date Dict: 07/02/2018/07:09 P/Meg Abebe M.D.Date Trans: 07/02/2018 09:51 P/giovannyoDWalt_JN:[id number] c: Kalin Santos D.O. [address] [facility] [address] Normal [facility] PHOSPHORUS BLOODon 8 Phosphate mass conc 1.9 mg/dL Low 2.5-5.0 [facility] Comment on above: Order Comment: No: D o not add to previous [id number]- CHANGED TO LAB DRAW Performed By: #### 8 5499 ####[facility] [facility] [place] [address], [facility] POC GLUCOSE LABon 07-02-2018 Glucose mass conc 246 mg/dL High 70-100 [facility] Comment on above: Performed By: #### 5 6101, 02275 ####[facility] [facility] [address] [place] [place] [address], [place] Glucose mass conc 145 mg/dL High 70-100 [facility] Comment on above: Performed By: #### 5 610, 27427 ####[facility] [address], [place] Glucose mass conc 140 mg/dL High 70-100 [facility] Comment on above: Performed By: #### 5 610, 02031 ####[facility] [place] [address], [place] Glucose mass conc 163 mg/dL High 70-100 [facility] Comment on above: Performed By: #### 5 610, 43636 ####[facility] [place] [address], [place] TYPE AND SCREENon 07-02-2018 ABO INTERPRETATION A Normal [facility] Comment on above: Performed By: #### 5 610, 70734 ####[facility]3000 [facility] [place] [address], [place] RH INTERPRETATION Positive Normal [facility] Comment on above: Performed By: #### 5 610, 06248 ####[facility] [place] [address], [place] POC GLUCOSE LABon 07-01-2018 Glucose mass conc 137 mg/dL High 70-100 [facility] Comment on above: Performed By: #### 5 6100, 66421 ####[facility] [address], [place] Glucose mass conc 178 mg/dL High 70-100 [facility] Comment on above: Performed By: #### 5 610, 95777 ####[facility] [place] [address], [place] Glucose mass conc 119 mg/dL High 70-100 [facility] Comment on above: Performed By: #### 5 610, 83475 ####[facility] [address], [facility] Glucose mass conc 95 mg/dL Normal 70-100 [facility] Comment on above: Performed By: #### 5 610, 01343 ####[facility] [address], [facility] BASIC METABOLIC PANELon 08-2 Calcium mass conc 8.3 mg/dL Low 8.6-10.3 [facility] Comment on above: Order Comment: No: D o not add to previous draw Performed By: #### 5 610, 53651 ####[facility] [place] [address], [facility] Chloride molar conc 110 mmol/L High 98-107 [facility] Comment on above: Order Comment: No: D o not add to previous draw Performed By: #### 5 610, 85649 ####[facility] [place] [address], [facility] CO2 molar conc 23 mmol/L Normal 21-31 [facility] Comment on above: Order Comment: No: D o not add to previous draw Performed By: #### 5 610, 19747 ####[facility] [place] [address], [facility] Creatinine mass conc 1.08 mg/dL Normal 0.60-1.20 [facility] Comment on above: Order Comment: No: D o not add to previous draw Performed By: #### 5 610, 19841 ####[facility] [place] [address], [facility] GFR/1.73 sq M predicted among blacks MDRD vol rate/area (S/P/Bld) 59 ml/min/1.73sq m Abnormal >60 [facility] Comment on above: Order Comment: No: D o not add to previous draw Result Comment: Calc ulation may not be valid for patients over 70 years Performed By: #### 5 6101, 22762 ####[facility] [address], [facility] GFR/1.73 sq M predicted among non-blacks MDRD vol rate/area (S/P/Bld) 49 ml/min/1.73sq m Abnormal >60 [facility] Comment on above: Order Comment: No: D o not add to previous draw Result Comment: Calc ulation may not be valid for patients over 70 years Performed By: #### 5 6101, 44271 ####[facility] [address], [facility] Glucose mass conc 148 mg/dL High 70-100 [facility] Comment on above: Order Comment: No: D o not add to previous draw Performed By: #### 5 610, 53170 ####[facility] [place] [address], [facility] Potassium molar conc 3.9 mmol/L Normal 3.5-5.1 [facility] Comment on above: Order Comment: No: D o not add to previous draw Performed By: #### 5 6101, 62546 ####[facility] [address], [facility] Sodium molar conc 139 mmol/L Normal 136-145 [facility] Comment on above: Order Comment: No: D o not add to previous draw Performed By: #### 5 6101, 46016 ####[facility] [address], [facility] Urea nitrogen mass conc 14 mg/dL Normal 7-25 [facility] Comment on above: Order Comment: No: D o not add to previous draw Performed By: #### 5 6101, 79870 ####[facility] [address], [facility] CBC COMPLETE BLOOD COUNTon 0 - Erythrocyte distribution width Auto Ratio (RBC) 14.0 % Normal 11.5-15.0 [facility] Comment on above: Order Comment: No: D o not add to previous draw Performed By: #### 5 610, 85754 ####[facility] Hematocrit Auto Volume Fraction (Bld) 34.0 % Low 36.0-45.0 [facility] Comment on above: Order Comment: No: D o not add to previous draw Performed By: #### 5 610, 74842 ####[facility] Hemoglobin mass conc (Bld) 10.7 g/dL Low 12.0-15.0 [facility] Comment on above: Order Comment: No: D o not add to previous draw Performed By: #### 5 610, 03529 ####[facility]3000 [facility].[address] MCH Auto Entitic mass (RBC) 31.6 pg Normal 27.0-33.0 [facility] Comment on above: Order Comment: No: D o not add to previous draw Performed By: #### 5 6100, 22522 ####[facility]3000 [facility].[address] MCHC Auto mass conc (RBC) 31.5 g/dL Low 32.0-35.0 [facility] Comment on above: Order Comment: No: D o not add to previous draw Performed By: #### 5 610, 07412 ####[facility] [facility].[address] MCV Auto Entitic volume (RBC) 100.3 fL High 82.0-98.0 [facility] Comment on above: Order Comment: No: D o not add to previous draw Performed By: #### 5 610, 01896 ####[facility] Nucleated RBC/100 WBC Ratio (Bld) 0 % Normal 0-0 [facility] Comment on above: Order Comment: No: D o not add to previous draw Performed By: #### 5 610, 57754 ####[facility] [address], [facility] PLAT CNT 213 10*3/uL Normal 150-400 [facility] Comment on above: Order Comment: No: D o not add to previous draw Performed By: #### 5 610, 74582 ####[facility] [address], [facility] RBC Auto #/vol (Bld) 3.39 10*6/uL Low 3.80-5.00 [facility] Comment on above: Order Comment: No: D o not add to previous draw Performed By: #### 5 610, 35773 ####[facility] [place] [address], [facility] WBC Auto #/vol (Bld) 11.66 10*3/uL High 4.00-10.60 [facility] Comment on above: Order Comment: No: D o not add to previous draw Performed By: #### 5 6101, 49944 ####[facility] [address], [facility] MAGNESIUM BLOODon 06-30-2018 Magnesium mass conc 2.1 mg/dL Normal 1.9-2.7 [facility] Comment on above: Order Comment: No: D o not add to previous draw Performed By: #### 5 610, 73089 ####[facility] [address], [facility] PHOSPHORUS BLOODon 8 Phosphate mass conc 2.1 mg/dL Low 2.5-5.0 [facility] Comment on above: Order Comment: No: D o not add to previous draw Performed By: #### 5 610, 26845 ####[facility] [address], [facility] POC GLUCOSE LABon 06-30-2018 Glucose mass conc 160 mg/dL High 70-100 [facility] Comment on above: Performed By: #### 5 6101, 05950 ####[facility] [address], [facility] Glucose mass conc 193 mg/dL High 70-100 [facility] Comment on above: Performed By: #### 5 6101, 17318 ####[facility] [address], [facility] Glucose mass conc 134 mg/dL High 70-100 [facility] Comment on above: Performed By: #### 8 5499 ####[facility] [address], [facility] Glucose mass conc 132 mg/dL High 70-100 [facility] Comment on above: Performed By: #### 8 5499 ####[facility] [address], [facility] BASIC METABOLIC PANELon 06-09 Calcium mass conc 8.7 mg/dL Normal 8.6-10.3 [facility] Comment on above: Order Comment: No: D o not add to previous draw Performed By: #### 8 5499 ####[facility] [address], [facility] Chloride molar conc 110 mmol/L High 98-107 [facility] Comment on above: Order Comment: No: D o not add to previous draw Performed By: #### 8 5499 ####[facility] [address], [facility] CO2 molar conc 24 mmol/L Normal 21-31 [facility] Comment on above: Order Comment: No: D o not add to previous draw Performed By: #### 8 5499 ####[facility] [address], [facility] Creatinine mass conc 1.25 mg/dL High 0.60-1.20 [facility] Comment on above: Order Comment: No: D o not add to previous draw Performed By: #### 8 5499 ####[facility] [facility] [place] [address], [facility] GFR/1.73 sq M predicted among blacks MDRD vol rate/area (S/P/Bld) 50 ml/min/1.73sq m Abnormal >60 [facility] Comment on above: Order Comment: No: D o not add to previous draw Result Comment: Calc ulation may not be valid for patients over 70 years Performed By: #### 8 5499 ####[facility] [facility] [place] [address], [facility] GFR/1.73 sq M predicted among non-blacks MDRD vol rate/area (S/P/Bld) 42 ml/min/1.73sq m Abnormal >60 [facility] Comment on above: Order Comment: No: D o not add to previous draw Result Comment: Calc ulation may not be valid for patients over 70 years Performed By: #### 8 5499 ####[facility] [facility] [place] [address], [facility] Glucose mass conc 183 mg/dL High 70-100 [facility] Comment on above: Order Comment: No: D o not add to previous draw Performed By: #### 8 5499 ####[facility] [facility] [place] [address], [facility] Potassium molar conc 4.0 mmol/L Normal 3.5-5.1 [facility] Comment on above: Order Comment: No: D o not add to previous draw Performed By: #### 8 5499 ####[facility] [facility] [place] [address], [place] Sodium molar conc 139 mmol/L Normal 136-145 [facility] Comment on above: Order Comment: No: D o not add to previous draw Performed By: #### 8 5499 ####[facility] [facility].[address] Urea nitrogen mass conc 16 mg/dL Normal 7-25 [facility] Comment on above: Order Comment: No: D o not add to previous draw Performed By: #### 8 5499 ####[facility] [facility].[address] CBC COMPLETE BLOOD COUNTon 06-29-2018 Erythrocyte distribution width Auto Ratio (RBC) 14.2 % Normal 11.5-15.0 [facility] Comment on above: Order Comment: No: D o not add to previous draw Performed By: #### 8 5499 ####[facility] Hematocrit Auto Volume Fraction (Bld) 36.9 % Normal 36.0-45.0 [facility] Comment on above: Order Comment: No: D o not add to previous draw Performed By: #### 8 5499 ####[facility] [facility].[address] Hemoglobin mass conc (Bld) 11.5 g/dL Low 12.0-15.0 [facility] Comment on above: Order Comment: No: D o not add to previous draw Performed By: #### 8 5499 ####[facility] [facility].[address] MCH Auto Entitic mass (RBC) 31.1 pg Normal 27.0-33.0 [facility] Comment on above: Order Comment: No: D o not add to previous draw Performed By: #### 8 5499 ####[facility] [facility].[address] MCHC Auto mass conc (RBC) 31.2 g/dL Low 32.0-35.0 [facility] Comment on above: Order Comment: No: D o not add to previous draw Performed By: #### 8 5499 ####[facility] MCV Auto Entitic volume (RBC) 99.7 fL High 82.0-98.0 [facility] Comment on above: Order Comment: No: D o not add to previous draw Performed By: #### 8 5499 ####[facility] [facility].[address] Nucleated RBC/100 WBC Ratio (Bld) 0 % Normal 0-0 [facility] Comment on above: Order Comment: No: D o not add to previous draw Performed By: #### 8 5499 ####[facility] [facility].[address] PLAT CNT 228 10*3/uL Normal 150-400 [facility] Comment on above: Order Comment: No: D o not add to previous draw Performed By: #### 8 5499 ####[facility] RBC Auto #/vol (Bld) 3.70 10*6/uL Low 3.80-5.00 [facility] Comment on above: Order Comment: No: D o not add to previous draw Performed By: #### 8 5499 ####[facility] [facility].[address] WBC Auto #/vol (Bld) 14.41 10*3/uL High 4.00-10.60 [facility] Comment on above: Order Comment: No: D o not add to previous draw Performed By: #### 8 5499 ####[facility] [facility].[address] MAGNESIUM BLOODon 06-29-2018 Magnesium mass conc 2.5 mg/dL Normal 1.9-2.7 [facility] Comment on above: Order Comment: No: D o not add to previous draw Performed By: #### 8 5499 ####[facility] [facility] [place] [address], [facility] PHOSPHORUS BLOODon 8 Phosphate mass conc 1.7 mg/dL Low 2.5-5.0 [facility] Comment on above: Order Comment: No: D o not add to previous draw Performed By: #### 8 5499 ####[facility] [place] [address].[place] [address], [facility] POC GLUCOSE LABon 06-29-2018 Glucose mass conc 134 mg/dL High 70-100 [facility] Comment on above: Performed By: #### 8 5499 ####[facility] [place] [address], [facility] Glucose mass conc 168 mg/dL High 70-100 [facility] Comment on above: Performed By: #### 8 5499 ####[facility] [place] [address], [facility] Glucose mass conc 169 mg/dL High 70-100 [facility] Comment on above: Performed By: #### 0 0121 ####[address] [address], [facility] Glucose mass conc 180 mg/dL High 70-100 [facility] Comment on above: Performed By: #### 0 0121 ####[address] [address], [facility] PORTABLE CHEST 1 VIEWon 06-09 PORTABLE CHEST 1 VIEW [facility] of Iwq[address]bbqq[address] [place] [address] Stacy ent Name: VIDHYA GIORDANO : 1940Sex: FAge: Race: WhiteMRN: [id number]. Location: [id number] Status: IVisit #: [id number] Date: 06/29/2018 7:00:00 AMCompleted Date: 06/29/2018 07:23 AMRequesting Provider: MARLIN DELGADO Attending Provider: MEG ABEBE Report Copy To: Signs & Symptoms: Elevated WBCHistory: Patient history not availableComments: R/O PneumoniaExam: PORTABLE CHEST 1 VIEWAccession #: [id number] ===PORTABLE CHEST 1 VIEW 06/29/2018 7:23 AM [...] on 06/29/2018 9:11 AM EDT. I, Rhoda Nicoel, have reviewed the images and report and concur with these findings. Electronically signed by:Rhoda Nicole. Transcribed by: [id number], User Resident: MARITA MCKEONElectronically Signed by: RHODA NICOLE @ 06/29/2018 09:45 AMI personally read this/these film(s) with this resident Normal [facility] Comment on above: Order Comment: R/O P neumonia *BLOOD CULTUREon 06-28-2018 Bacteria identified in Blood by Culture Clinical Report: (D) Specimen: BLOOD CULTURE Collected: 06/28/2018 18:45 Status: Final Last Updated: 07/04/2018 07:52 CULT RES (Final) No Growth Day 5 Normal [facility] Comment on above: Performed By: #### 0 0121 ####[facility] [facility].[address] BASIC METABOLIC PANELon 06-09 Calcium mass conc 8.6 mg/dL Normal 8.6-10.3 [facility] Comment on above: Order Comment: No: D o not add to previous drawNo collection time noted on specimen or requisition. The collection timerecorded is the time of receipt in the lab. Performed By: #### 0 0121 ####[facility] [facility] [place] [address], [facility] Chloride molar conc 106 mmol/L Normal 98-107 [facility] Comment on above: Order Comment: No: D o not add to previous drawNo collection time noted on specimen or requisition. The collection timerecorded is the time of receipt in the lab. Performed By: #### 0 0121 ####[facility] [facility] [place] [address], [facility] CO2 molar conc 26 mmol/L Normal 21-31 [facility] Comment on above: Order Comment: No: D o not add to previous drawNo collection time noted on specimen or requisition. The collection timerecorded is the time of receipt in the lab. Performed By: #### 0 0121 ####[facility] [facility].[place] [place] [address], [facility] Creatinine mass conc 1.50 mg/dL High 0.60-1.20 [facility] Comment on above: Order Comment: No: D o not add to previous drawNo collection time noted on specimen or requisition. The collection timerecorded is the time of receipt in the lab. Performed By: #### 0 0121 ####[facility] [place] [address], [facility] GFR/1.73 sq M predicted among blacks MDRD vol rate/area (S/P/Bld) 41 ml/min/1.73sq m Abnormal >60 [facility] Comment on above: Order Comment: No: D o not add to previous drawNo collection time noted on specimen or requisition. The collection timerecorded is the time of receipt in the lab. Result Comment: Calc ulation may not be valid for patients over 70 years Performed By: #### 0 0121 ####[facility] [facility] [place] [address], [facility] GFR/1.73 sq M predicted among non-blacks MDRD vol rate/area (S/P/Bld) 33 ml/min/1.73sq m Abnormal >60 [facility] Comment on above: Order Comment: No: D o not add to previous drawNo collection time noted on specimen or requisition. The collection timerecorded is the time of receipt in the lab. Result Comment: Calc ulation may not be valid for patients over 70 years Performed By: #### 0 0121 ####[place] [address] [place] [address], [facility] Glucose mass conc 170 mg/dL High 70-100 [facility] Comment on above: Order Comment: No: D o not add to previous drawNo collection time noted on specimen or requisition. The collection timerecorded is the time of receipt in the lab. Performed By: #### 0 0121 ####[address] Potassium molar conc 4.0 mmol/L Normal 3.5-5.1 [facility] Comment on above: Order Comment: No: D o not add to previous drawNo collection time noted on specimen or requisition. The collection timerecorded is the time of receipt in the lab. Performed By: #### 0 0121 ####[place] [address] Sodium molar conc 137 mmol/L Normal 136-145 [facility] Comment on above: Order Comment: No: D o not add to previous drawNo collection time noted on specimen or requisition. The collection timerecorded is the time of receipt in the lab. Performed By: #### 0 0121 ####[place] [address] Urea nitrogen mass conc 23 mg/dL Normal 7-25 [facility] Comment on above: Order Comment: No: D o not add to previous drawNo collection time noted on specimen or requisition. The collection timerecorded is the time of receipt in the lab. Performed By: #### 0 0121 ####[address] CBC W/DIFFon 06-28-2018 ABS BASOPHILS 0.0 10*3/uL Normal 0.0-0.2 [facility] Comment on above: Order Comment: No: D o not add to previous drawNo collection time noted on specimen or requisition. The collection timerecorded is the time of receipt in the lab. Performed By: #### 0 0121 ####[address] ABS IMM GRANS 0.1 10*3/uL Normal 0.0-0.2 [facility] Comment on above: Order Comment: No: D o not add to previous drawNo collection time noted on specimen or requisition. The collection timerecorded is the time of receipt in the lab. Performed By: #### 0 0121 ####[address] ABS NEUTROPHILS 9.5 10*3/uL High 1.6-7.6 [facility] Comment on above: Order Comment: No: D o not add to previous drawNo collection time noted on specimen or requisition. The collection timerecorded is the time of receipt in the lab. Performed By: #### 0 0121 ####[facility] Basophils Auto #/vol (Bld) 0.2 % Normal 0.0-1.0 [facility] Comment on above: Order Comment: No: D o not add to previous drawNo collection time noted on specimen or requisition. The collection timerecorded is the time of receipt in the lab. Performed By: #### 0 0121 ####[facility] Eosinophils Auto #/vol (Bld) 0.0 10*3/uL Normal 0.0-0.5 [facility] Comment on above: Order Comment: No: D o not add to previous drawNo collection time noted on specimen or requisition. The collection timerecorded is the time of receipt in the lab. Performed By: #### 0 0121 ####[place] [address] Eosinophils/100 WBC Auto (Bld) 0.1 % Normal 0.0-6.0 [facility] Comment on above: Order Comment: No: D o not add to previous drawNo collection time noted on specimen or requisition. The collection timerecorded is the time of receipt in the lab. Performed By: #### 0 0121 ####[facility] Erythrocyte distribution width Auto Ratio (RBC) 14.0 % Normal 11.5-15.0 [facility] Comment on above: Order Comment: No: D o not add to previous drawNo collection time noted on specimen or requisition. The collection timerecorded is the time of receipt in the lab. Performed By: #### 0 0121 ####[address] Hematocrit Auto Volume Fraction (Bld) 35.7 % Low 36.0-45.0 [facility] Comment on above: Order Comment: No: D o not add to previous drawNo collection time noted on specimen or requisition. The collection timerecorded is the time of receipt in the lab. Performed By: #### 0 0121 ####[facility] Hemoglobin mass conc (Bld) 11.9 g/dL Low 12.0-15.0 [facility] Comment on above: Order Comment: No: D o not add to previous drawNo collection time noted on specimen or requisition. The collection timerecorded is the time of receipt in the lab. Performed By: #### 0 0121 ####[place] [address] IMMATURE GRANS 0.4 % Normal 0.0-1.0 [facility] Comment on above: Order Comment: No: D o not add to previous drawNo collection time noted on specimen or requisition. The collection timerecorded is the time of receipt in the lab. Performed By: #### 0 0121 ####[address] Lymphocytes Auto #/vol (Bld) 2.5 10*3/uL Normal 1.2-4.0 [facility] Comment on above: Order Comment: No: D o not add to previous drawNo collection time noted on specimen or requisition. The collection timerecorded is the time of receipt in the lab. Performed By: #### 0 0121 ####[address] Lymphocytes/100 WBC Auto (Bld) 18.4 % Low 20.0-45.0 [facility] Comment on above: Order Comment: No: D o not add to previous drawNo collection time noted on specimen or requisition. The collection timerecorded is the time of receipt in the lab. Performed By: #### 0 0121 ####[facility] MCH Auto Entitic mass (RBC) 31.7 pg Normal 27.0-33.0 [facility] Comment on above: Order Comment: No: D o not add to previous drawNo collection time noted on specimen or requisition. The collection timerecorded is the time of receipt in the lab. Performed By: #### 0 0121 ####[facility] MCHC Auto mass conc (RBC) 33.3 g/dL Normal 32.0-35.0 [facility] Comment on above: Order Comment: No: D o not add to previous drawNo collection time noted on specimen or requisition. The collection timerecorded is the time of receipt in the lab. Performed By: #### 0 0121 ####[facility] MCV Auto Entitic volume (RBC) 95.2 fL Normal 82.0-98.0 [facility] Comment on above: Order Comment: No: D o not add to previous drawNo collection time noted on specimen or requisition. The collection timerecorded is the time of receipt in the lab. Performed By: #### 0 0121 ####[place] [address] Monocytes Auto #/vol (Bld) 1.3 10*3/uL High 0.1-1.0 [facility] Comment on above: Order Comment: No: D o not add to previous drawNo collection time noted on specimen or requisition. The collection timerecorded is the time of receipt in the lab. Performed By: #### 0 0121 ####[facility] MONOS 10.0 % Normal 5.0-12.0 [facility] Comment on above: Order Comment: No: D o not add to previous drawNo collection time noted on specimen or requisition. The collection timerecorded is the time of receipt in the lab. Performed By: #### 0 0121 ####[facility] Neutrophils/100 WBC Auto (Bld) 70.9 % Normal 40.0-72.0 [facility] Comment on above: Order Comment: No: D o not add to previous drawNo collection time noted on specimen or requisition. The collection timerecorded is the time of receipt in the lab. Performed By: #### 0 0121 ####[facility] Nucleated RBC/100 WBC Ratio (Bld) 0 % Normal 0-0 [facility] Comment on above: Order Comment: No: D o not add to previous drawNo collection time noted on specimen or requisition. The collection timerecorded is the time of receipt in the lab. Performed By: #### 0 0121 ####[facility] PLAT CNT 236 10*3/uL Normal 150-400 [facility] Comment on above: Order Comment: No: D o not add to previous drawNo collection time noted on specimen or requisition. The collection timerecorded is the time of receipt in the lab. Performed By: #### 0 0121 ####[facility] RBC Auto #/vol (Bld) 3.75 10*6/uL Low 3.80-5.00 [facility] Comment on above: Order Comment: No: D o not add to previous drawNo collection time noted on specimen or requisition. The collection timerecorded is the time of receipt in the lab. Performed By: #### 0 0121 ####[facility] [facility].[address] WBC Auto #/vol (Bld) 13.43 10*3/uL High 4.00-10.60 [facility] Comment on above: Order Comment: No: D o not add to previous drawNo collection time noted on specimen or requisition. The collection timerecorded is the time of receipt in the lab. Performed By: #### 0 0121 ####[facility] [facility] [place] [address], [facility] MAGNESIUM BLOODon 06-28-2018 Magnesium mass conc 1.7 mg/dL Low 1.9-2.7 [facility] Comment on above: Order Comment: No: D o not add to previous drawNo collection time noted on specimen or requisition. The collection timerecorded is the time of receipt in the lab. Performed By: #### 1 0070, [id number], [id number] ####[facility] [facility] [place] [address], [facility] PHOSPHORUS BLOODon 8 Phosphate mass conc 3.4 mg/dL Normal 2.5-5.0 [facility] Comment on above: Order Comment: No: D o not add to previous drawNo collection time noted on specimen or requisition. The collection timerecorded is the time of receipt in the lab. Performed By: #### 1 0070, [id number], [id number] ####[facility] [facility] [place] [address], [facility] POC GLUCOSE LABon 06-28-2018 Glucose mass conc 166 mg/dL High 70-100 [facility] Comment on above: Performed By: #### 0 0121 ####[facility] [facility] [place] [address], [facility] Glucose mass conc 168 mg/dL High 70-100 [facility] Comment on above: Performed By: #### 0 0121 ####[facility] [facility] [place] [address], [facility] Glucose mass conc 141 mg/dL High 70-100 [facility] Comment on above: Performed By: #### 0 0121 ####[facility] [facility] [place] [address], [facility] Glucose mass conc 180 mg/dL High 70-100 [facility] Comment on above: Performed By: #### 8 5499 ####[facility] [place] [address], [facility] PORTABLE CHEST 1 VIEWon 06-09 PORTABLE CHEST 1 VIEW [facility] [id number] [place] [id number] Stacy ent Name: VIDHYA GIORDANO : 1940Sex: FAge: Race: WhiteMRN: [id number]. Location: [id number] Status: IVisit #: [id number] Date: 06/28/2018 6:35:00 PMCompleted Date: 06/28/2018 07:38 PMRequesting Provider: VINICIO REAVES Attending Provider: MEG ABEBE Report Copy To: Signs & Symptoms: FeverHistory: Patient history not availableComments: R/O InfiltratesExam: PORTABLE CHEST 1 VIEWAccession #: [id number] ===PORTABLE CHEST 1 VIEW 06/28/2018 7:38 PM [...] findings. Electronically signed by:Rhoda Nicole. Transcribed by: [email or web address], User Resident: MARITA MCKEONElectronically Signed by: RHODA NICOLE @ 06/29/2018 09:22 AMI personally read this/these film(s) with this resident Normal [facility] Comment on above: Order Comment: R/O I nfiltrates URINALYSIS REFLEXon 06-28-20 18 APPEARANCE CLEAR Normal CLEAR [facility] Comment on above: Order Comment: No: D o not add to previous drawCriteria for reflexing a culture was not met. Please call the lab [id number] within 24 hours of collection time if culture is needed Performed By: #### 0 0121 ####[facility] [facility] [place] [address], [facility] BILIRUBIN Negative Normal NEGATIVE [facility] Comment on above: Order Comment: No: D o not add to previous drawCriteria for reflexing a culture was not met. Please call the lab [id number] within 24 hours of collection time if culture is needed Performed By: #### 0 0121 ####[facility] [place] [address], [facility] BLOOD Negative Normal NEGATIVE [facility] Comment on above: Order Comment: No: D o not add to previous drawCriteria for reflexing a culture was not met. Please call the lab [id number] within 24 hours of collection time if culture is needed Performed By: #### 0 0121 ####[facility] [address], [place] COLOR YELLOW Normal YELLOW [facility] Comment on above: Order Comment: No: D o not add to previous drawCriteria for reflexing a culture was not met. Please call the lab [id number] within 24 hours of collection time if culture is needed Performed By: #### 0 0121 ####[facility] [address], [place] GLUCOSE Negative Normal NEGATIVE [facility] Comment on above: Order Comment: No: D o not add to previous drawCriteria for reflexing a culture was not met. Please call the lab [id number] within 24 hours of collection time if culture is needed Performed By: #### 0 0121 ####[facility] [facility] [place] [place] [address], [facility] KETONE Negative Normal NEGATIVE [facility] Comment on above: Order Comment: No: D o not add to previous drawCriteria for reflexing a culture was not met. Please call the lab [id number] within 24 hours of collection time if culture is needed Performed By: #### 0 0121 ####[facility] [facility] [place] [address], [place] Negative Normal NEGATIVE [facility] Comment on above: Order Comment: No: D o not add to previous drawCriteria for reflexing a culture was not met. Please call the lab [id number] within 24 hours of collection time if culture is needed Performed By: #### 0 0121 ####[facility] [facility] [place] [address], [place] MICRO NOT DONE negative chemical reactions unless requested in original order Normal [facility] Comment on above: Order Comment: No: D o not add to previous drawCriteria for reflexing a culture was not met. Please call the lab [id number] within 24 hours of collection time if culture is needed Performed By: #### 0 0121 ####[facility] [address], [facility] NITRITE Negative Normal NEGATIVE [facility] Comment on above: Order Comment: No: D o not add to previous drawCriteria for reflexing a culture was not met. Please call the lab [id number] within 24 hours of collection time if culture is needed Performed By: #### 0 0121 ####[facility] [facility].[address] PH 5.0 Normal 5.0-8.0 [facility] Comment on above: Order Comment: No: D o not add to previous drawCriteria for reflexing a culture was not met. Please call the lab [id number] within 24 hours of collection time if culture is needed Performed By: #### 0 0121 ####[facility] Protein mass conc Negative Normal NEGATIVE [facility] Comment on above: Order Comment: No: D o not add to previous drawCriteria for reflexing a culture was not met. Please call the lab [id number] within 24 hours of collection time if culture is needed Performed By: #### 0 0121 ####[facility] SPEC GRAV 1.013 Low 1.015-1.020 [facility] Comment on above: Order Comment: No: D o not add to previous drawCriteria for reflexing a culture was not met. Please call the lab [id number] within 24 hours of collection time if culture is needed Performed By: #### 0 0121 ####[facility] [facility].[address] APTTon 06-27-2018 aPTT Coag time (Bld) 33.7 s Normal 25.0-35.0 [facility] Comment on above: Result Comment: ALL RESULTS [...] THIS PURPOSE. Performed By: #### 5 6101, 40730 ####[facility] [facility].[address] POC GLUCOSE LABon 06-27-2018 Glucose mass conc 164 mg/dL High 70-100 [facility] Comment on above: Performed By: #### 8 5499 ####[facility] [facility].[address] Glucose mass conc 194 mg/dL High 70-100 [facility] Comment on above: Performed By: #### 8 5499 ####[facility] [facility].[address] Glucose mass conc 115 mg/dL High 70-100 [facility] Comment on above: Performed By: #### 8 5499 ####[facility] [facility].[address] PROTHROMBIN TIMEon 8 INR Coag RelTime (PPP) 1.07 {INR} Normal 0.91-1.16 [facility] Comment on above: Result Comment: ACC[facility] P RECOMMENDED INR FOR WARFARIN THERAPY CONDITION INRPROPHYLAXIS OF VENOUS THROMBOSIS 2-3(HIGH-RISK SURGERY)TREATMENT OF VENOUS THROMBOSIS 2-3TREATMENT OF PULMONARY EMBOLISM 2-3PREVENTION OF SYSTEMIC EMBOLISM: 2-3 ACUTE MYOCARDIAL INFARCTION TISSUE HEART VALVES VALVULAR HEART DISEASE ATRIAL FIBRILLATION RECURRENT SYSTEMIC EMBOLISMMECHANICAL HEART VALVE 2.5-3.5 FROM: ORAL ANTICOAGULANTS. MECHANISM OF ACTION, CLINICALEFFECTIVENESS, AND OPTIMAL THERAPEUTIC RANGE. [id number]. Performed By: #### 5 6101, 80735 ####[facility] Prothrombin time (PT) Coag time (PPP) 13.9 s Normal 12.3-14.8 [facility] Comment on above: Result Comment: ALL RESULTS MUST BE INTERPRETED WITH RESPECT TO BLOOD DRAWING ARTIFACTOR DILUTION ERROR OF ANTICOAGULANT AT THE TIME OF SAMPLING. Performed By: #### 5 6101, [id number] ####[facility] CBC W/DIFFon 05-24-2018 ABS BASOPHILS 0.1 10*3/uL Normal 0.0-0.2 [facility] Comment on above: Performed By: #### 5 0103 ####[facility] ABS IMM GRANS 0.1 10*3/uL Normal 0.0-0.2 [facility] Comment on above: Performed By: #### 5 0103 ####[place] [address] ABS NEUTROPHILS 4.6 10*3/uL Normal 1.6-7.6 [facility] Comment on above: Performed By: #### 5 0103 ####[facility] Basophils Auto #/vol (Bld) 0.7 % Normal 0.0-1.0 [facility] Comment on above: Performed By: #### 5 0103 ####[facility] [facility].[address] Eosinophils Auto #/vol (Bld) 0.5 10*3/uL Normal 0.0-0.5 [facility] Comment on above: Performed By: #### 5 0103 ####[facility] [facility].[address] Eosinophils/100 WBC Auto (Bld) 5.2 % Normal 0.0-6.0 [facility] Comment on above: Performed By: #### 3 ####[facility] [facility].[address] Erythrocyte distribution width Auto Ratio (RBC) 13.8 % Normal 11.5-15.0 [facility] Comment on above: Performed By: #### 3 ####[facility] Hematocrit Auto Volume Fraction (Bld) 40.0 % Normal 36.0-45.0 [facility] Comment on above: Performed By: #### 3 ####[facility] [facility].[address] Hemoglobin mass conc (Bld) 13.0 g/dL Normal 12.0-15.0 [facility] Comment on above: Performed By: #### 5 3 ####[facility] IMMATURE GRANS 0.6 % Normal 0.0-1.0 [facility] Comment on above: Performed By: #### 5 3 ####[facility] [facility].[address] Lymphocytes Auto #/vol (Bld) 3.1 10*3/uL Normal 1.2-4.0 [facility] Comment on above: Performed By: #### 5 3 ####[facility] [facility].[address] Lymphocytes/100 WBC Auto (Bld) 33.5 % Normal 20.0-45.0 [facility] Comment on above: Performed By: #### 0103 ####[facility] MCH Auto Entitic mass (RBC) 31.9 pg Normal 27.0-33.0 [facility] Comment on above: Performed By: #### 3 ####[facility] MCHC Auto mass conc (RBC) 32.5 g/dL Normal 32.0-35.0 [facility] Comment on above: Performed By: #### 3 ####[facility] MCV Auto Entitic volume (RBC) 98.0 fL Normal 82.0-98.0 [facility] Comment on above: Performed By: #### 3 ####[facility] Monocytes Auto #/vol (Bld) 1.0 10*3/uL Normal 0.1-1.0 [facility] Comment on above: Performed By: #### 3 ####[facility] MONOS 10.3 % Normal 5.0-12.0 [facility] Comment on above: Performed By: #### 5 3 ####[facility] Neutrophils/100 WBC Auto (Bld) 49.7 % Normal 40.0-72.0 [facility] Comment on above: Performed By: #### 3 ####[facility] Nucleated RBC/100 WBC Ratio (Bld) 0 % Normal 0-0 [facility] Comment on above: Performed By: #### 3 ####[facility] [address], [facility] PLAT CNT 258 10*3/uL Normal 150-400 [facility] Comment on above: Performed By: #### 102 ####[facility] [facility] [place] [place] [address], [facility] RBC Auto #/vol (Bld) 4.08 10*6/uL Normal 3.80-5.00 [facility] Comment on above: Performed By: #### 5 010 ####[facility] [facility] [place] [address], [facility] WBC Auto #/vol (Bld) 9.35 10*3/uL Normal 4.00-10.60 [facility] Comment on above: Performed By: #### 102 ####[facility] [facility].[address] COMP METABOLIC PANELon 05-24 Albumin mass conc 4.1 g/dL Normal 3.5-5.7 [facility] Comment on above: Performed By: #### 0 0121 ####[place] [address] [facility].[address] ALKALINE PHOSPH 64 IU/L Normal 34-104 [facility] Comment on above: Performed By: #### 0 0121 ####[facility] [facility].[address] ALT enzyme act/vol 26 U/L Normal 7-52 [facility] Comment on above: Performed By: #### 0 0121 ####[place] [address] [facility].[address] AST enzyme act/vol 32 U/L Normal 13-39 [facility] Comment on above: Performed By: #### 0 0121 ####[address] Bilirubin mass conc 0.4 mg/dL Normal 0.3-1.0 [facility] Comment on above: Performed By: #### 0 0121 ####[facility] [facility] [place] [address], [facility] Calcium mass conc 10.2 mg/dL Normal 8.6-10.3 [facility] Comment on above: Performed By: #### 0 0121 ####[facility] [facility] [place] [address], [facility] Chloride molar conc 102 mmol/L Normal 98-107 [facility] Comment on above: Performed By: #### 0 0121 ####[facility] [facility] [place] [address], [facility] CO2 molar conc 24 mmol/L Normal 21-31 [facility] Comment on above: Performed By: #### 0 0121 ####[facility] [place] [address], [facility] Creatinine mass conc 1.41 mg/dL High 0.60-1.20 [facility] Comment on above: Performed By: #### 0 0121 ####[facility] [place] [address], [facility] GFR/1.73 sq M predicted among blacks MDRD vol rate/area (S/P/Bld) 44 ml/min/1.73sq m Abnormal >60 [facility] Comment on above: Result Comment: Calc ulation may not be valid for patients over 70 years Performed By: #### 0 0121 ####[facility] [facility] [place] [address], [facility] GFR/1.73 sq M predicted among non-blacks MDRD vol rate/area (S/P/Bld) 36 ml/min/1.73sq m Abnormal >60 [facility] Comment on above: Result Comment: Calc ulation may not be valid for patients over 70 years Performed By: #### 0 0121 ####[facility] [facility] [place] [address], [facility] Glucose mass conc 129 mg/dL High 70-100 [facility] Comment on above: Performed By: #### 0 0121 ####[facility] [facility] [place] [address], [facility] Potassium molar conc 5.1 mmol/L Normal 3.5-5.1 [facility] Comment on above: Performed By: #### 0 0121 ####[facility] [facility] [place] [address], [facility] Protein mass conc 7.6 g/dL Normal 6.0-8.3 [facility] Comment on above: Performed By: #### 0 0121 ####[facility] [facility] [place] [address], [facility] Sodium molar conc 134 mmol/L Low 136-145 [facility] Comment on above: Performed By: #### 0 0121 ####[facility] [facility] [place] [address], [facility] Urea nitrogen mass conc 25 mg/dL Normal 7-25 [facility] Comment on above: Performed By: #### 0 0121 ####[facility] [place], [place] [id number] [place] [address] Progress Noteon 12-02-2017 HIM IP Note OR Film Mounter Normal [facility] HIM IP Note OR Film Mounter Normal [facility] Vital Signs Date Time Vital Sign Value Performing Clinician Manohari shana 05-03-2024 13: Body height 152.4 cm MD Kael Adkins Work Phone: [facility] 05-03-2024 13: Body mass index (BMI) [Ratio] 31.5 kg/m2 MD Kael Adkins Work Phone: [facility] 05-03-2024 13: Body weight 73.2 kg MD Kael Adkins Work Phone: [facility] 05-03-2024 13:020400 Body temperature 97.3 [degF] MD Kael Adkins Work Phone: [facility] 05-03-2024 13:020400 Diastolic blood pressure 59 mm[Hg] MD Kael Adkins Work Phone: [facility] 05-03-2024 13:020400 Heart rate 56 /min MD Kael Adkins Work Phone: [facility] 05-03-2024 13:020400 Respiratory rate 20 /min MD Kael Adkins Work Phone: [facility] 05-03-2024 13:020400 Systolic blood pressure 106 mm[Hg] MD Kael Adkins Work Phone: [facility] Encounters Encounter Date Encounter Type Care Provider Facility Start: 03-07-2025 End: 03-07-2025 ambulatory Kael Adkins [facility] Work Phone: Start: 03-07-2025 End: 03-07-2025 Departed Referred Kael Adkins MD Work Phone: [facility] Start: 03-05-2025 End: 03-05-2025 ambulatory [facility] Start: 05-03-2024 End: 05-03-2024 ambulatory MD Kael Adkins Work Phone: [facility] Work Phone: Start: 05-03-2024 End: 05-03-2024 Discharged Recurring MD Kael Adkins Work Phone: [facility] [place] Work Phone: Start: 12-13-2023 End: 12-13-2023 Clinical Support Anna Kumar CCC-A Work Phone: [facility] Comment on above: Bilateral impacted c erumen (Primary Dx) Start: 01-22-2023 End: 01-22-2023 ambulatory STACIA ARIANNA Facility:[facility] Start: 11-16-2022 End: 11-17-2022 ambulatory NONE LISTED REQUEST Facility:[facility] Start: 09-16-2022 ambulatory STACIAKRISSY KELLER Facility: [facility] Start: 08-28-2022 End: 08-29-2022 ambulatory KAEL ADKINS Facility:[facility] Start: 02-11-2022 End: 02-12-[address] DOCTOR JUAREZ Facility:[facility] Start: 02-08-2022 End: 02-08-[address] KAEL ADKINS . Facility:[facility] Start: 02-04-2022 ambulatory STACIA KELLER Facility: [facility] Start: 02-01-2022 End: 02-01-[address] KAEL ADKINS . Facility: Start: 06-27-2018 End: 07-19-2018 Evaluation and management of inpatient MEG ABEBE Facility:[facility] Start: 05-24-2018 End: 05-25-2018 Patient encounter MEG ABEBE Facility:[facility] Start: 04-19-2018 End: 04-20-2018 Patient encounter MEG ABEBE Facility:[facility] Procedures Date Procedure Procedure Detail Performing Clinician [...] on above: Performed By: #### 5 6101, [address] ####[facility] [place] [address], [facility] Start: 06-28-2018 INTRODUCE OF OTH THE RAP SUBST INTO RESP TRACT, VIA OPENING TOMERIN MIS Start: 06-27-2018 EXCISION OF ABD SUBC U/FASCIA, OPEN APPROACH MEG ABEBE Start: 06-27-2018 REPAIR SMALL INTESTI NE, OPEN APPROACH MEG ABEBE Plan of Treatment Date Care Activity Detail Author Start: 03-07-2025 Bacteria identified in Urine by Culture Urine Culture [facility] Start: 03-07-[address] [facility] Start: 2004 Pneumococcal Vaccine: 65+ Years (1 - PCV) Pneumococcal Vaccine: 65+ Years (1 - PCV) [facility] Payers Date Payer Category Payer Private Health Insurance [facility] [id number] 2020 Self-pay [id number] 1960 Medicare [id number] 1959 Self-pay [id number] 1959 Unknown 1959 Unknown [id number] 1939 Unknown [id number] 2.16.8 [id number] 1939 Unknown [id number] 2.16.8 40.1.010930.3.579.2.647 1939 Unknown [id number] 2.16.8 40.1.707113.3.579.2.647 1939 Unknown [id number] 2.16.84 0.1.536269.3.579.2.718 1939 Unknown [id number] 2.16.84 0.1.118401.3.579.2.593 1939 Unknown [id number] 2.16.84 0.1.753312.3.579.2.593 1939 Unknown [id number] 2.16.84 0.1.929342.3.579.2.593 1939 Unknown [id number] 2.16.84 0.1.649156.3.579.2.593 1939 Unknown [id number] 2.16.84 0.1.435233.3.579.2.593 1939 Unknown [id number] 2.16.84 0.1.304610.3.579.2.593 1939 Unknown [id number] 2.16.84 0.1.313571.3.579.2.593 1939 Unknown [id number] 2.16.84 0.1.489191.3.579.2.1259 1939 Unknown [id number] 2.16. 840.1.000230.3.579.2.1286 Medicare [id number] Unknown [id number] 2.16.8 40.1.492929.3.579.2.531 Unknown [id number] 2.16.8 40.1.623688.3.579.2.531 Social History Date Type Detail Facility Tobacco smoking status NHIS Tobacco smoking consumption unknown [facility] Start: 1940 Sex Assigned At Not on file [facility] Gender identity Not on file [facility] Start: 05-03-2024 Tobacco smoking status NHIS Ex-smoker (finding) [facility] Start: 1940 Sex Assigned At Female F [facility] Start: 03-09-2025 Sex Female (finding) [facility] Clinical Notes 10-17-2020 to 05-03-2024 Note Date & Type Note Facility 05-03-2024 Progress note Note Date/Time May 03, 2024 1:14pm [facility] [address] [place] [address] Wound Center Provider Note Signed Patient: Vidhya Giordano MR#: [id number] : 1940 Acct:[id number] Age/Sex: 83 / F Copies to: MD Wendy Verdugo APRN~ HPI Date of Visit Date of Visit: Date of Service: 05/03/2024 Time of Service: 13:12 Narrative HPI: Vidhya is an 81 year old female presenting to [facility] wound care program for afollow up [...] 05/19/23 stable again, was apparently dc'd from [facility] and so we will order suppliesfrom [...] are happy with this order, spoke about [facility] again and they will think about [...] Intensity: 7 Wound/Ulcer History Mode of Arrival/ Airplane Pilot Commercial: Family Assistive Device Used Today: Wheelchair Lives with:: Children Appetite Description: Within Normal Limits Who helps w/ dressing change?: Home Health Why Do You Need Help?: Can't Reach Ulcer, Limited mobility, Unsafe leave home byself and Taxing effort to leave home Smoking Status: Former smoker [facility] Medical History (Updated 07/14/23 @ 13:12 by [...] Full Bed Appearance: Beefy Red, Hypergranulation and Suarez Percent of Wound Bed Granulated/Red: 100 Percent [...] By: <Electronically signed by DG Scott> 05/03/241313 [facility] Work Phone: 1(194) 281-545104-24-2024 Progress note Author eWndy Scott [facility] March 01, 2024 2:57pm Note Date/Time March 01, 2024 2:5 8pm [facility] [address] [place] [address] Wound Center Provider Note Signed Patient: Vidhya Giordano MR#: [id number] : 1940 Acct:[id number] Age/Sex: 83 / F Copies to: MD Wendy Verdugo, DG~ HPI Date of Visit Date of Visit: Date of Service: 03/01/2024 Time of Service: 14:55 Narrative HPI: Vidhya is an 81 year old female presenting to [facility] wound care program for afollow up [...] 05/19/23 stable again, was apparently dc'd from [facility] and so we will order suppliesfrom [...] are happy with this order, spoke about [facility] again and they will think about [...] the time Wound/Ulcer History Mode of Arrival/ Airplane Pilot Commercial: Family Assistive Device Used Today: Wheelchair Lives with:: Children Appetite Description: Within Normal Limits Who helps w/ dressing change?: Home Health Why Do You Need Help?: Can't Reach Ulcer, Limited mobility, Unsafe leave home byself and Taxing effort to leave home Smoking Status: Former smoker [facility] Medical History (Updated 07/14/23 @ 13:12 by [...] Thickness: Full Bed Appearance: Beefy Red and Suarez Percent of Wound Bed Granulated/Red: 100 Percent [...] 1455 Signed By: <Electronically signed by DG Scott> 03/01/24 1454 [facility] Work Phone: 1(503) 217-183102-21-2024 Progress note Author Wendy Scott [facility] December 29, 2023 1:12pm Note Date/Time December 29, 2023 1:34pm [facility] [address] [place] [address] Wound Center Provider Note Signed Patient: Vidhya Giordano MR#: [id number] : 1940 Acct:[id number] Age/Sex: 83 / F Copies to: MD Wendy Verdugo APRN~ HPI Date of Visit Date of Visit: Date of Service: 12/29/2023 Time of Service: 13:10 Narrative HPI: Vidhya is an 81 year old female presenting to [facility] wound care program for afollow up [...] 05/19/23 stable again, was apparently dc'd from [facility] and so we will order suppliesfrom [...] Intensity: 0 Wound/Ulcer History Mode of Arrival/ Airplane Pilot Commercial: Family Assistive Device Used Today: Wheelchair Lives with:: Children Appetite Description: Within Normal Limits Who helps w/ dressing change?: Home Health Why Do You Need Help?: Can't Reach Ulcer, Limited mobility, Unsafe leave home byself and Taxing effort to leave home Smoking Status: Former smoker [facility] Medical History (Updated 07/14/23 @ 13:12 by [...] Thickness: Full Bed Appearance: Beefy Red and Suarez Percent of Wound Bed Granulated/Red: 100 Percent [...] <Electronically signed by DG Scott> 12/29/23 1312 [facility] Work Phone: 1(325) 831-417802-05-2024 History of Present illness Narrative* ZORA Infante [...] Pt to return prn documented in [facility] encounterThree [facility] [id number] Progress note Author Wendy Scott [facility] November 03, 2023 1:09pm Note Date/Time November 03, 2023 1:09pm [facility] [address] [place] [address] Wound Center Provider Note Signed Patient: Vidhya Giordano MR#: [id number] : 1940 Acct:[id number] Age/Sex: 83 / F Copies to: MD Wendy Verdugo APRN~ HPI Date of Visit Date of Visit: Date of Service: 11/03/2023 Time of Service: 13:08 Narrative HPI: Vidhya is an 81 year old female presenting to [facility] wound care program for afollow up [...] 05/19/23 stable again, was apparently dc'd from [facility] and so we will order suppliesfrom [...] Intensity: 0 Wound/Ulcer History Mode of Arrival/ Airplane Pilot Commercial: Family Assistive Device Used Today: Wheelchair Lives with:: Children Appetite Description: Within Normal Limits Who helps w/ dressing change?: Home Health Why Do You Need Help?: Can't Reach Ulcer, Limited mobility, Unsafe leave home byself and Taxing effort to leave home Smoking Status: Former smoker [facility] Medical History (Updated 07/14/23 @ 13:12 by [...] Thickness: Full Bed Appearance: Beefy Red and Suarez Percent of Wound Bed Granulated/Red: 100 Percent [...] <Electronically signed by DG Scott> 11/03/23 1309 [facility] Work Phone: 1(175) 823-823911-01-2023 Progress note Author Wendy Scott [facility] September 08, 2023 1:10pm Note Date/Time September 08, 2023 1 :10pm [facility] [address] [place] [address] Wound Center Provider Note Signed Patient: Vidhya Giordano MR#: [id number] : 1940 Acct:[id number] Age/Sex: 83 / F Copies to: MD Wendy Verdugo APRN~ HPI Date of Visit Date of Visit: Date of Service: 09/08/2023 Time of Service: 13:08 Narrative HPI: Vidhya is an 81 year old female presenting to [facility] wound care program for afollow up [...] 05/19/23 stable again, was apparently dc'd from [facility] and so we will order suppliesfrom [...] Intensity: 0 Wound/Ulcer History Mode of Arrival/ Airplane Pilot Commercial: Family Assistive Device Used Today: Wheelchair Lives with:: Children Appetite Description: Within Normal Limits Who helps w/ dressing change?: Home Health Why Do You Need Help?: Can't Reach Ulcer, Limited mobility, Unsafe leave home byself and Taxing effort to leave home Smoking Status: Former smoker [facility] Medical History (Updated 07/14/23 @ 13:12 by [...] Thickness: Full Bed Appearance: Beefy Red and Suarez Percent of Wound Bed Granulated/Red: 100 Percent [...] <Electronically signed by DG Scott> 09/08/23 1310 [facility] Work Phone: 1(623) 513-630409-06-2023 Progress note Author Wendy Scott [facility] July 14, 2023 1:12pm Note Date/Time July 14, 2023 1:13pm [facility] [address] [place] [address] Wound Center Provider Note Signed Patient: Vidhya Giordano MR#: [id number] : 1940 Acct:[id number] Age/Sex: 83 / F Copies to: MD Wendy Verdugo APRN~ HPI Date of Visit Date of Visit: Date of Service: 07/14/2023 Time of Service: 13:10 Narrative HPI: Vidhya is an 81 year old female presenting to [facility] wound care program for afollow up [...] 05/19/23 stable again, was apparently dc'd from [facility] and so we will order suppliesfrom [...] Intensity: 0 Wound/Ulcer History Mode of Arrival/ Airplane Pilot Commercial: Family Assistive Device Used Today: Wheelchair Lives with:: Children Appetite Description: Within Normal Limits Who helps w/ dressing change?: Home Health Why Do You Need Help?: Can't Reach Ulcer, Limited mobility, Unsafe leave home byself and Taxing effort to leave home Smoking Status: Former smoker [facility] Medical History (Updated 07/14/23 @ 13:12 by [...] Thickness: Full Bed Appearance: Beefy Red and Suarez Percent of Wound Bed Granulated/Red: 100 Percent [...] <Electronically signed by DG Scott> 07/14/23 1312 [facility] Work Phone: 1(171) 225-450907-12-2023 Progress note Author Wendy Scott [facility] May 19, 2023 1:22pm Note Date/Time May 19, 2023 1:22 pm [facility] [address] [place] [address] Wound Center Provider Note Signed Patient: Vidhya Giordano MR#: [id number] : 1940 Acct:[id number] Age/Sex: 82 / F Copies to: MD Wendy Verdugo, [employer]~ HPI Date of Visit Date of Visit: Date of Service: 05/19/2023 Time of Service: 13:19 Narrative HPI: Vidhya is an 81 year old female presenting to [facility] wound care program for afollow up [...] 05/19/23 stable again, was apparently dc'd from [facility] and so we will order suppliesfrom a dme supplier, orders the same since the daughter prefers it that way, 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, 8 week appt Subjective Pain Abdomen: Pain Intensity: 0 Wound/Ulcer History Mode of Arrival/ Airplane Pilot Commercial: Family Assistive Device Used Today: Wheelchair Lives with:: Children Appetite Description: Within Normal Limits Who helps w/ dressing change?: Home Health Why Do You Need Help?: Can't Reach Ulcer, Limited mobility, Unsafe leave home byself and Taxing effort to leave home Smoking Status: Former smoker [facility] Medical History (Updated 06/03/22 @ 11:55 by [...] wound) Thickness: Full Bed Appearance: Beefy Red, Suarez and Hypergranulation Percent of Wound Bed Granulated/Red: [...] <Electronically signed by DG Scott> 05/19/23 1322 [facility] Work Phone: 1(165) 151-310305-17-2023 Progress note Author Wendy Scott [facility] March 24, 2023 1:44pm Note Date/Time March 24, 2023 1:44p m [facility] [address] [place] [address] Wound Center Provider Note Signed Patient: Vidhya Giordano MR#: [id number] : 1940 Acct:[id number] Age/Sex: 82 / F Copies to: Kael Adkins MD Wendy Tyler, [employer]~ HPI Date of Visit Date of Visit: Date of Service: 03/24/2023 Time of Service: 13:42 Narrative HPI: Vidhya is an 81 year old female presenting to [facility] wound care program for afollow up [...] from shingles Wound/Ulcer History Mode of Arrival/ Airplane Pilot Commercial: Family Assistive Device Used Today: Wheelchair Lives with:: Children Appetite Description: Within Normal Limits Who helps w/ dressing change?: Home Health Why Do You Need Help?: Can't Reach Ulcer, Limited mobility, Unsafe leave home byself and Taxing effort to leave home Smoking Status: Former smoker [facility] Medical History (Updated 06/03/22 @ 11:55 by [...] (Non-healing surgical wound) Thickness: Full Bed Appearance: Suarez and Rolled Edges Percent of Wound Bed [...] <Electronically signed by DG Scott> 03/24/23 1344 [facility] Work Phone: 1(729) 974-892103-08-2023 Progress note Author Wendy Scott [facility] January 13, 2023 1:07pm Note Date/Time January 13, 2023 1:08 pm [facility] [address] [place] [address] Wound Center Provider Note Signed Patient: Vidhya Giordano MR#: [id number] : 1940 Acct:[id number] Age/Sex: 82 / F Copies to: MD Wendy Verdugo APRN~ HPI Date of Visit Date of Visit: Date of Service: 01/13/2023 Time of Service: 13:06 Narrative HPI: Vidhya is an 81 year old female presenting to [facility] wound care program for afollow up [...] Intensity: 7 Wound/Ulcer History Mode of Arrival/ Airplane Pilot Commercial: Family Assistive Device Used Today: Wheelchair Lives with:: Children Appetite Description: Within Normal Limits Who helps w/ dressing change?: Home Health Why Do You Need Help?: Can't Reach Ulcer, Limited mobility, Unsafe leave home byself and Taxing effort to leave home Smoking Status: Former smoker [facility] Medical History (Updated 06/03/22 @ 11:55 by Wedny Scott APRN) Alzheimer disease Bipolar disorder Chronic [...] (Non-healing surgical wound) Thickness: Full Bed Appearance: Suarez and Rolled Edges Percent of Wound Bed [...] By: <Electronically signed by DG Scott> 01/13/23 1303 [facility] Work Phone: 1(717) 854-966501-11-2023 Progress note Author Wendy Scott [facility] November 18, 2022 11:26am Note Date/Time November 18, 2022 1 1:27am [facility] [address] [place] [address] Wound Center Provider Note Signed Patient: Vidhya Giordano MR#: [id number] : 1940 Acct:[id number] Age/Sex: 82 / F Copies to: MD Wendy Verdugo APRN~ HPI Date of Visit Date of Visit: Date of Service: 11/18/2022 Time of Service: 11:25 Narrative HPI: Vidhya is an 81 year old female presenting to [facility] wound care program for afollow up [...] from shingles Wound/Ulcer History Mode of Arrival/ Airplane Pilot Commercial: Family Assistive Device Used Today: Wheelchair Lives with:: Children Appetite Description: Within Normal Limits Who helps w/ dressing change?: Home Health Why Do You Need Help?: Can't Reach Ulcer, Limited mobility, Unsafe leave home byself and Taxing effort to leave home Smoking Status: Former smoker [facility] Medical History (Updated 06/03/22 @ 11:55 by [...] (Non-healing surgical wound) Thickness: Full Bed Appearance: Suarez and Rolled Edges Percent of Wound Bed [...] By: <Electronically signed by DG Scott> 11/18/221125 [facility] Work Phone: 1(249) 454-956911-16-2022 Progress note Author Wendy Scott [facility] September 23, 2022 11:25am Note Date/Time September 23, 2022 11:25am [facility] [address] [place] [address] Wound Center Provider Note Signed Patient: Vidhya Giordano MR#: [id number] : 1940 Acct:[id number] Age/Sex: 82 / F Copies to: MD Wendy Verdugo APRN~ HPI Date of Visit Date of Visit: Date of Service: 09/23/2022 Time of Service: 11:22 Narrative HPI: Vidhya is an 81 year old female presenting to [facility] wound care program for afollow up [...] Intensity: 0 Wound/Ulcer History Mode of Arrival/ Airplane Pilot Commercial: Family Assistive Device Used Today: Wheelchair Lives with:: Children Appetite Description: Within Normal Limits Who helps w/ dressing change?: Home Health Why Do You Need Help?: Can't Reach Ulcer, Limited mobility, Unsafe leave home byself and Taxing effort to leave home Smoking Status: Former smoker [facility] Medical History (Updated 06/03/22 @ 11:55 by [...] (Non-healing surgical wound) Thickness: Full Bed Appearance: Suarez and Rolled Edges Percent of Wound Bed [...] <Electronically signed by DG Scott> 09/23/22 1125 [facility] Work Phone: 1(279) 427-954609-21-2022 Progress note Author Wendy Scott [facility] July 29, 2022 11:35am Note Date/Time July 29, 2022 11:34am [facility] [address] [place] [address] Wound Center Provider Note Signed Patient: Vidhya Giordano MR#: [id number] : 1940 Acct:[id number] Age/Sex: 82 / F Copies to: MD Wendy Verdugo APRN~ HPI Date of Visit Date of Visit: Date of Service: 07/29/2022 Time of Service: 11:25 Narrative HPI: Vidhya is an 81 year old female presenting to [facility] wound care program for afollow up [...] Intensity: 6 Wound/Ulcer History Mode of Arrival/ Airplane Pilot Commercial: Family Assistive Device Used Today: Wheelchair Lives with:: Children Appetite Description: Within Normal Limits Who helps w/ dressing change?: Home Health Why Do You Need Help?: Can't Reach Ulcer, Limited mobility, Unsafe leave home byself and Taxing effort to leave home Smoking Status: Former smoker [facility] Medical History (Updated 06/03/22 @ 11:55 by [...] wound) Thickness: Full Bed Appearance: Beefy Red, Suarez and Rolled Edges Percent of Wound Bed [...] <Electronically signed by DG Scott> 07/29/22 1135 [facility] Work Phone: 1(121) 917-344507-27-2022 Progress note Author Wendy Scott [facility] June 03, 2022 11:56am Note Date/Time June 03, 2022 11:5 5am [facility] [address] [place] [address] Wound Center Provider Note Signed Patient: Vidhya Giordano MR#: [id number] : 1940 Acct:[id number] Age/Sex: 81 / F Copies to: MD Wendy Verdugo APRN~ HPI Date of Visit Date of Visit: Date of Service: 06/03/2022 Time of Service: 11:54 Narrative HPI: Vidhya is an 81 year old female presenting to [facility] wound care program for afollow up [...] from shingles Wound/Ulcer History Mode of Arrival/ Airplane Pilot Commercial: Family Assistive Device Used Today: Wheelchair Lives with:: Children Appetite Description: Within Normal Limits Who helps w/ dressing change?: Home Health Why Do You Need Help?: Can't Reach Ulcer, Limited mobility, Unsafe leave home byself and Taxing effort to leave home Smoking Status: Former smoker [facility] Medical History (Updated 06/03/22 @ 11:55 by [...] wound) Thickness: Full Bed Appearance: Beefy Red, Suarez and Hypergranulation Percent of Wound Bed Granulated/Red: [...] By: <Electronically signed by DG Scott> 06/03/22 1158 [facility] Work Phone: 1(988) 684-296506-01-2022 Progress note Author Wendy Scott [facility] April 08, 2022 1:14pm Note Date/Time April 08, 2022 1:14p m [facility] [address] [place] [address] Wound Center Provider Note Signed Patient: Vidhya Giordano MR#: [id number] : 1940 Acct:[id number] Age/Sex: 81 / F Copies to: MD Wendy Verdugo APRN~ HPI Date of Visit Date of Visit: Date of Service: 04/08/2022 Time of Service: 13:11 Narrative HPI: Vidhya is an 81 year old female presenting to [facility] wound care program for afollow up [...] Intensity: 0 Wound/Ulcer History Mode of Arrival/ Airplane Pilot Commercial: Family Assistive Device Used Today: Wheelchair Lives with:: Children Appetite Description: Within Normal Limits Who helps w/ dressing change?: Home Health Why Do You Need Help?: Can't Reach Ulcer, Limited mobility, Unsafe leave home byself and Taxing effort to leave home Smoking Status: Former smoker [facility] Medical History (Updated 04/08/22 @ 13:13 by [...] <Electronically signed by DG Scott> 04/08/22 1314 [facility] Work Phone: 1(793) 603-986204-06-2022 Progress note Author Wendy Scott [facility] February 11, 2022 1:50pm Note Date/Time February 11, 2022 1:50 pm [facility] [address] [place] [address] Wound Center Provider Note Signed Patient: Vidhya Giordano MR#: [id number] : 1940 Acct:[id number] Age/Sex: 81 / F Copies to: MD Wendy Verdugo APRN~ HPI Date of Visit Date of Visit: Date of Service: 02/11/2022 Time of Service: 13:46 Narrative HPI: Vidhya is an 81 year old female presenting to [facility] wound care program for afollow up [...] from shingles Wound/Ulcer History Mode of Arrival/ Airplane Pilot Commercial: Family Assistive Device Used Today: Wheelchair Lives with:: Children Appetite Description: Within Normal Limits Who helps w/ dressing change?: Home Health Why Do You Need Help?: Can't Reach Ulcer, Limited mobility, Unsafe leave home byself and Taxing effort to leave home Smoking Status: Former smoker [facility] Medical History (Updated 01/02/21 @ 15:16 by [...] Thickness: Full Bed Appearance: Beefy Red and Suarez Percent of Wound Bed Granulated/Red: 90 Percent [...] <Electronically signed by DG Scott> 02/11/22 1350 [facility] Work Phone: 1(449) 143-835502-09-2022 Progress note Author Wendy Scott [facility] December 17, 2021 2:16pm Note Date/Time December 17, 2021 2 :16pm [facility] [address] [place] [address] Wound Center Provider Note Signed Patient: Vidhya Giordano MR#: [id number] : 1940 Acct:[id number] Age/Sex: 81 / F Copies to: MD Wendy Verdugo APRN~ HPI Date of Visit Date of Visit: Date of Service: 12/17/2021 Time of Service: 14:13 Narrative HPI: Vidhya is an 81 year old female presenting to [facility] wound care program for afollow up [...] is there Wound/Ulcer History Mode of Arrival/ Airplane Pilot Commercial: Family Assistive Device Used Today: Wheelchair Lives with:: Children Appetite Description: Within Normal Limits Who helps w/ dressing change?: Home Health Why Do You Need Help?: Can't Reach Ulcer, Limited mobility, Unsafe leave home byself and Taxing effort to leave home Smoking Status: Former smoker [facility] Medical History (Updated 01/02/21 @ 15:16 by [...] Thickness: Full Bed Appearance: Beefy Red and Suarez Percent of Wound Bed Granulated/Red: 100 Percent [...] By: <Electronically signed by DG Scott> 12/17/21 [facility]6 [facility] Work Phone: 1(199) 308-858911-29-2021 Progress note Author Wendy Scott [facility] October 06, 2021 11:31am Note Date/Time October 06, 2021 11:31am [facility] [address] [place] [address] Wound Center Provider Note Signed Patient: Vidhya Giordano MR#: [id number] : 1940 Acct:[id number] Age/Sex: 81 / F Copies to: MD Wendy Verdugo APRN~ HPI Date of Visit Date of Visit: Date of Service: 10/06/2021 Time of Service: :29 Narrative HPI: Vidhya is an 81 year old female presenting to [facility] wound care program for afollow up [...] is there Wound/Ulcer History Mode of Arrival/ Airplane Pilot Commercial: Family Assistive Device Used Today: Wheelchair Lives with:: Children Appetite Description: Within Normal Limits Who helps w/ dressing change?: Home Health Why Do You Need Help?: Can't Reach Ulcer, Limited mobility, Unsafe leave home byself and Taxing effort to leave home Smoking Status: Former smoker [facility] Medical History (Updated 01/02/21 @ 15:16 by [...] Thickness: Full Bed Appearance: Beefy Red and Suarez Percent of Wound Bed Granulated/Red: 100 Percent [...] <Electronically signed by DG Scott> 10/06/21 1131 [facility] Work Phone: 1(707) 106-335510-11-2021 Progress note Author Wendy Scott [facility] August 18, 2021 11:42am Note Date/Time August 18, 2021 1 1:42am [facility] [address] [place] [address] Wound Center Provider Note Signed Patient: Vidhya Giordano MR#: [id number] : 1940 Acct:[id number] Age/Sex: 81 / F Copies to: MD Wendy Verdugo, [employer]~ HPI Date of Visit Date of Visit: Date of Service: 08/18/2021 Time of Service: 11:37 Narrative HPI: Vidhya is an 81 year old female presenting to [facility] wound care program for afollow up [...] is there Wound/Ulcer History Mode of Arrival/ Airplane Pilot Commercial: Family Assistive Device Used Today: Wheelchair Lives with:: Children Appetite Description: Within Normal Limits Who helps w/ dressing change?: Home Health Why Do You Need Help?: Can't Reach Ulcer, Limited mobility, Unsafe leave home byself and Taxing effort to leave home Smoking Status: Former smoker [facility] Medical History (Updated 01/02/21 @ 15:16 by [...] mg(1,500 mg)-vitamin D3 800 unit chewable tablet ([id number] plus D) 1 tab PO DAILY 12/23/17 [...] Thickness: Full Bed Appearance: Beefy Red and Suarez Percent of Wound Bed Granulated/Red: 100 Percent [...] <Electronically signed by DG Scott> 08/18/21 1142 [facility] Work Phone: 1(641) 624-608108-16-2021 Progress note Author Wendy Scott [facility] June 23, 2021 11:37am Note Date/Time June 23, 2021 11 :37am [facility] [address] [place] [address] Wound Center Provider Note Signed Patient: Vidhya Giordano MR#: [id number] : 1940 Acct:[id number] Age/Sex: 81 / F Copies to: MD Wendy Verdugo APRN~ HPI Date of Visit Date of Visit: Date of Service: 06/23/2021 Time of Service: 11:35 Narrative HPI: Vidhya is an 81 year old female presenting to [facility] wound care program for a follow [...] is there Wound/Ulcer History Mode of Arrival/ Airplane Pilot Commercial: Family Assistive Device Used Today: Wheelchair Lives with:: Children Appetite Description: Within Normal Limits Who helps w/ dressing change?: Home Health Why Do You Need Help?: Can't Reach Ulcer, Limited mobility, Unsafe leave home byself and Taxing effort to leave home Smoking Status: Former smoker [facility] Medical History (Updated 01/02/21 @ 15:16 by [...] mg(1,500 mg)-vitamin D3 800 unit chewable tablet ([id number] plus D) 1 tab PO DAILY 12/23/17 [...] Thickness: Full Bed Appearance: Beefy Red and Suarez Percent of Wound Bed Granulated/Red: 100 Percent [...] 1135 Signed By: <Electronically signed by DG Soctt> 06/23/21 1137 [facility] Work Phone: 1(520) 474-112306-21-2021 Progress note Author Wendy Scott [facility] April 28, 2021 11:22am Note Date/Time April 28, 2021 11:2 2am [facility] [address] [place] [address] Wound Center Provider Note Signed Patient: Vdihya Giordano MR#: [id number] : 1940 Acct:[id number] Age/Sex: 80 / F Copies to: MD Wendy Verdugo APRN~ HPI Date of Visit Date of Visit: Date of Service: 04/28/2021 Time of Service: 11:18 Narrative HPI: Vidhya is an 80 year old female presenting to [facility] wound care program for a follow [...] Intensity: 0 Wound/Ulcer History Mode of Arrival/ Airplane Pilot Commercial: Family Assistive Device Used Today: Wheelchair Lives with:: Children Appetite Description: Within Normal Limits Who helps w/ dressing change?: Home Health Why Do You Need Help?: Can't Reach Ulcer, Limited mobility, Unsafe leave home byself and Taxing effort to leave home Smoking Status: Former smoker [facility] Medical History (Updated 01/02/21 @ 15:16 by [...] Thickness: Full Bed Appearance: Beefy Red and Suarez Percent of Wound Bed Granulated/Red: 100 Percent [...] <Electronically signed by DG Scott> 04/28/21 1122 [facility] Work Phone: 1(505) 600-622405-10-2021 Progress note Author Wendy Scott [facility] March 17, 2021 11:35am Note Date/Time March 17, 2021 11:35 am [facility] [address] [place] [address] Wound Center Provider Note Signed Patient: Vidhya Giordano MR#: [id number] : 1940 Acct:[id number] Age/Sex: 80 / F Copies to: MD Wendy Verdugo APRN~ HPI Date of Visit Date of Visit: Date of Service: 03/17/2021 Time of Service: 11:31 Narrative HPI: Vidhya is an 80 year old female presenting to [facility] wound care program for a follow [...] is there Wound/Ulcer History Mode of Arrival/ Airplane Pilot Commercial: Family Assistive Device Used Today: Wheelchair Lives with:: Children Appetite Description: Within Normal Limits Who helps w/ dressing change?: Home Health Why Do You Need Help?: Can't Reach Ulcer, Limited mobility, Unsafe leave home byself and Taxing effort to leave home [facility] Medical History (Updated 01/02/21 @ 15:16 by [...] Thickness: Full Bed Appearance: Beefy Red and Suarez Percent of Wound Bed Granulated/Red: 100 Percent [...] <Electronically signed by DG Scott> 03/17/21 1135 [facility] Work Phone: 1(703) 309-499303-17-2021 Progress note Author Wendy Scott [facility] January 22, 2021 1:13pm Note Date/Time January 22, 2021 1:1 3pm [facility] [address] [place] [address] Wound Center Provider Note Signed Patient: Vidhya Giordano MR#: [id number] : 1940 Acct:[id number] Age/Sex: 80 / F Copies to: MD Wendy Verdugo APRN~ HPI Date of Visit Date of Visit: Date of Service: 01/22/2021 Time of Service: 13:11 Narrative HPI: Vidhya is an 80 year old female presenting to [facility] wound care program for a follow [...] is there Wound/Ulcer History Mode of Arrival/ Airplane Pilot Commercial: Family Assistive Device Used Today: Wheelchair Lives with:: Children Appetite Description: Within Normal Limits Who helps w/ dressing change?: Home Health Why Do You Need Help?: Can't Reach Ulcer, Limited mobility, Unsafe leave home byself and Taxing effort to leave home Smoking Status: Former smoker [facility] Medical History (Updated 01/02/21 @ 15:16 by [...] Thickness: Full Bed Appearance: Beefy Red and Suarez Percent of Wound Bed Granulated/Red: 100 Percent [...] By: <Electronically signed by DG Scott> 01/22/211312 [facility] Work Phone: 1(121) 810-505402-25-2021 Progress note Author Nichole Giordano [facility] January 02, 2021 3:18pm Note Date/Time January 02, 2021 3:15pm [facility] [address] [place] [address] Wound Center Provider Note Signed Patient: Vidhya Giordano MR#: [id number] : 1940 Acct:[id number] Age/Sex: 80 / F Copies to: MD Nichole Verdugo APRN~ HPI Date of Visit Date of Visit: Date of Service: 01/02/2021 Time of Service: 15:14 Narrative HPI: Vidhya is an 80 year old female presenting to [facility] wound care program for an initial [...] is there Wound/Ulcer History Mode of Arrival/ Airplane Pilot Commercial: Family Assistive Device Used Today: Wheelchair Lives with:: Children Appetite Description: Within Normal Limits Who helps w/ dressing change?: Home Health Why Do You Need Help?: Can't Reach Ulcer, Limited mobility, Unsafe leave home byself and Taxing effort to leave home Smoking Status: Former smoker [facility] Medical History (Updated 01/02/21 @ 15:16 by [...] Thickness: Full Bed Appearance: Beefy Red and Suarez Percent of Wound Bed Granulated/Red: 100 Percent [...] <Electronically signed by DG Giordano> 01/02/21 1518 [facility] Work Phone: 1(302) 833-269501-07-2021 Progress note Author Wendy Scott [facility] November 14, 2020 8:16am Note Date/Time November 14, 2020 8: 16am [facility] [address] [place] [address] Wound Center Provider Note Signed Patient: Vidhya Giordano MR#: [id number] : 1940 Acct:[id number] Age/Sex: 80 / F Copies to: MD Wendy Verdugo APRN~ HPI Date of Visit Date of Visit: Date of Service: 11/14/2020 Time of Service: 08:14 Narrative HPI: Vidhya is an 80 year old female presenting to [facility] wound care program for a follow [...] is there Wound/Ulcer History Mode of Arrival/ Airplane Pilot Commercial: Family Assistive Device Used Today: Wheelchair Lives with:: Children Appetite Description: Within Normal Limits Who helps w/ dressing change?: Home Health Why Do You Need Help?: Can't Reach Ulcer, Limited mobility, Unsafe leave home byself and Taxing effort to leave home Smoking Status: Former smoker [facility] Medical History (Updated 11/14/20 @ 08:16 by [...] Wound/Ulcer Abdomen: Bed Appearance: Beefy Red and Suarez Percent of Wound Bed Granulated/Red: 100 Percent [...] DD/ 3 Signed By: <Electronically signed by GD Scott> 11/14/20815 [facility] Work Phone: 1(393) 224-998112-10-2020 Progress note Author Wendy Scott [facility] October 17, 2020 8:39am Note Date/Time October 17, 2020 8:35am [facility] [address] [place] [address] Wound Center Provider Note Signed Patient: Vidhya Giordano MR#: [id number] : 1940 Acct:[id number] Age/Sex: 80 / F Copies to: MD Wendy Verdugo APRN~ HPI Date of Visit Date of Visit: Date of Service: 10/17/2020 Time of Service: 08:32 Narrative HPI: Vidhya is an 80 year old female presenting to [facility] wound care program for an initial [...] is there Wound/Ulcer History Mode of Arrival/ Airplane Pilot Commercial: Family Assistive Device Used Today: Wheelchair Lives with:: Children Appetite Description: Within Normal Limits Who helps w/ dressing change?: Home Health Why Do You Need Help?: Can't Reach Ulcer, Limited mobility, Unsafe leave home byself and Taxing effort to leave home Smoking Status: Former smoker [facility] Medical History (Updated 10/17/20 @ 08:34 by [...] Rash Wound/Ulcer Abdomen: Bed Appearance: Beefy Red, Suarez and Hypergranulation Percent of Wound Bed Granulated/Red: [...] <Electronically signed by DG Scott> 10/17/20 0839 [facility] Work Phone: Evaluation note* Diagnosis Bilateral impacted cerumen- Primary Impacted cerumen documented in this encounter [facility] Diagnosis Onset Date Resolution Status Dementia chronic Gastrointestinal fistula chr onic Inflammation chronic Limited mobility chronic Obesity chronic [id number] chronic Surgical wound, non healing chronic Candidiasis resolved [facility] Work Phone: Evaluation noteNo assessment information available [facility] Work Phone: Summary Purpose Family History No Family History Records Found Relationship Condition Age at Onset Recorded Date/T scott mother Malignant neoplasm Unknown daughter Malignant neoplasm Unknown sister Malignant neoplasm Unknown Advance Directives No Advanced Directives Records Found Advance Directive Response Recorded Date/ Time Advance Directives No December 11:26am Hospital Course Note MR[id number] Vid[facility] Admitted: 06/27/2018 Discharged: 07/19/2018 Date of : 1940 Physician: Meg Abebe M.D. DISCHARGE SUMMARYDISCHARGE ATTENDING: Jianlin Abebe, M.D.PRINCIPAL DIAGNOSIS: Enterocutaneous fistula.SECONDARY DIAGNOSES: Depression, hypertension, diabetes mellitus,neuropathy.PROCEDURES PERFORMED AND TREATMENT RENDERED: The patient is a [id number] with a history of ventral hernia repair. [...] Dementia Gastrointestinal fistula Inflammation Limited mobility Obesity [id number] Surgical wound, non healing Candidiasis Chief Complaint Admit Date Unknown March 07, 2025 7:3 6am Additional Source Comments INFORMATION SOURCE (unrecogn ized section and content) DATE CREATED AUTHOR [facility]02/2018 [facility] DATE CREATED AUTHOR AUTHOR'S ORGANIZ ATION 10/02/2018 [facility] DATE CREATED AUTHOR AUTHOR'S ORGANIZ ATION 09/01/2022 [facility] DATE CREATED AUTHOR AUTHOR'S ORGANIZ ATION 01/31/2023 [facility] DATE CREATED AUTHOR AUTHOR'S ORGANIZ ATION 06/24/2024 [facility] EPIC DATE CREATED AUTHOR AUTHOR'S ORGANIZ ATION 03/13/2025 [facility] DATE CREATED AUTHOR AUTHOR'S ORGANIZ ATION 06/18/2025 [facility] Care Teams (unrecognized sec tion and content) [place] Relationship Specialty Start Date End Date Kael Adkins MD [address] [place] [address] PCP - General Family Medicine 12/13/23 Team [...] BE BASED ON THE PRIMARY CLINICAL RECORDS. [employer] provides no warranty or guarantee of the accuracy or completeness of information in this document.
[2025-06-25 20:09] VITALS: BP 161/78; PULSE 78; TEMP 36.7; O2SAT 95
[2025-06-25 20:11] VITALS: BP 176/85; PULSE 77; TEMP 36.4; O2SAT 93; BMI 31.1
[2025-06-25] MEDS: SODIUM ZIRCONIUM CYCLOSILICATE 10 GM POWD.PACK 5 GM PO (21:35)
[2025-06-25] MEDS: ACETAMINOPHEN 325 MG TABLET 650 MG PO (21:38)
[2025-06-25 23:54] VITALS: BP 132/71; PULSE 76; TEMP 36.4; O2SAT 92
[2025-06-26 04:00] VITALS: BP 129/75; PULSE 71; TEMP 36.5; O2SAT 90
[2025-06-26 05:43] LABS: Hematocrit 35.0 % (36.0-48.0); Hemoglobin 11.0 g/dL (12.0-16.0); Immature Granulocytes Abs Auto 0.15 10^3/uL (0.00-0.03); Immature Granulocytes Pct Auto 1.6 % (0.0-0.5); Lymphocytes Absolute Auto 3.1 10^3/uL (1.2-3.8); Mean Corpuscular HGB Conc 31.4 g/dL (29.9-35.2); Mean Corpuscular Hemoglobin 27.0 pg (26.7-34.0); Mean Corpuscular Volume 85.8 fL (81.0-99.0); Platelet Count 254 10^3/uL (150-450); Red Blood Count 4.08 10^6/uL (4.20-5.40); White Blood Count 9.4 10^3/uL (4.0-11.0)
[2025-06-26 06:00] LABS: Anion Gap 13.1; Blood Urea Nitrogen 34.0 mg/dL (7.0-18.0); Calcium 9.5 mg/dL (8.5-10.1); Carbon Dioxide 25.7 mmol/L (21.0-32.0); Chloride 104 mmol/L (98-107); Estimated GFR (African America 35 (>=60 mL/min/1.73m^2); Estimated GFR (Non-African Ame 29 (>=60 mL/min/1.73m^2); Glucose 113 mg/dL (74-106); Potassium 4.8 mmol/L (3.5-5.1); Sodium 138 mmol/L (136-145)
[2025-06-26 08:05] VITALS: BP 169/84; PULSE 76; TEMP 36.8; O2SAT 92
--- NOTE | 2025-06-26 09:44 | PC.NURSE ---
It was reported to bond writer from case management that in patient's chart there is a documented coccyx ulcer. Sales Secretary and another RN do not find any wound on this patient's buttocks. Old, healed wounds are noted but no signs of any opening skin. Her buttocks are reddened and slightly purple from laying on buttocks, but blanchable. Patient has been turned and repositioned at this time. Sales Secretary did note a bandage on umbilicus. Patient states this is an old fistual that she has been dealing with for years after hernia surgery. She states she has a nurse that places a bandage on it weekly. Sales Secretary took pictures for chart and placed mepilex.
--- NOTE | 2025-06-26 09:45 | CM.NOTE ---
Rounds made with Dr. Momin, discussed with pt reason for admission and plan of care. Dr. Momin will also reach out to pt's daughter for more information and provide update. Pt will remain OBS status at this time.
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
--- NOTE | 2025-06-26 09:58 | SWNOTE1 ---
Pt also stated the private caregiver's car broke down so she has not been able to come see her.
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
--- NOTE | 2025-06-26 11:17 | SWNOTE1 ---
PT/OT did recommend SNF. Pt and daughter have voiced they want her to go to [facility] if possible. SW to send referral and reach out to [facility].
--- NOTE | 2025-06-26 11:28 | SWNOTE1 ---
Referral sent to [facility]. Referral included face sheet, ED note, case management report, nursing notes, diagnostic imaging, med list, and PT/OT notes.
--- NOTE | 2025-06-26 12:59 | SWNOTE1 ---
Lacey at [facility] reached back out and they are not sure when they will have a bed and will not know until tomorrow due to other people appealing there discharge. TONEY called and updated daughter. TONEY advised that we will have to get a precert started today and can't wait until tomorrow to see if they have a bed open. TONEY explained that sometimes precerts take a few days and we do not want to delay her discharge. Pt's daughter did ask about where Dr. Adkins went, TONEY advised the [facility]. She would like SW to check [facility], SW did let her know that SW spoke to them yesterday and they were pretty full and unsure of bed status, but SW will check. TONEY called and spoke with Lula. She voiced they are also waiting on appeals and discharges and not sure when they will have a bed open either. TONEY called and explained this to daughter. TONEY went over list from [email or web address].GOV earlier in conversation and daughter was going to look at this. She was alright with TONEY looking in to [facility], but wants SW to talk with pt as well. SW to talk with pt. TONEY also went over the other facilties in [place].
--- NOTE | 2025-06-26 13:15 | SWNOTE1 ---
SW stopped in to speak with pt in regards to facilities for rehab. Nurse was in room as well. SW let pt know [facility] is unsure when they will have a bed open. SW let pt know that SW has spoke to her daughter a few times over the phone and [facility] was her second choice, but they were also unsure of when they would have openings. SW did let pt know that SW and her daughter did go over list from Medicare.gov of the facilities in the area and [facility] was her 3rd choice. Pt is alright with [facility] and alright with SW sending referral. She did ask how long it would take. SW did explain that she is a precert and it will depend on her insurance. SW to call daughter back to update her.
--- NOTE | 2025-06-26 14:10 | SWNOTE1 ---
TONEY received call from Lula at [facility] and they do now have a bed that will be open for pt. TONEY to send referral. TONEY called pt's daughter, Divya, and updated her. She would like [facility]. She again asked about [facility], but SW stated they do not have a bed. SW to updated pt on [facility]. Referral sent to [facility]. Referral included face sheet, ED note, case management report, wound consult, nursing notes, diagnostic imaging, med list, and PT/OT notes.
--- NOTE | 2025-06-26 14:24 | PM.HP ---
HPI H&P: HPI History of Present Illness Chief complaint: WEAKNESS Acute vaginitis Narrative: Mrs. Giordano is an 85-year-old female with a long history of Chronic neck pain. Patient had been living at home with her daughter. As per report, the patient developed a few times. Over the last week or 2 her weakness has gotten worse. Before that she was able to ambulate with a walker and rollator but recently she became so weak up to the point that she was unable to stand up and ambulate. She was urinating in her brief. She was brought to the emergency room for an evaluation suspecting that she may have recurrent UTI. Repeat UA is negative. No fever or chills. No chest pain palpitation. No abdominal pain. No focal weakness or numbness. Patient is wearing a soft neck collar. She has been wearing a neck collar for 5 years at least according to her. Opioid HPI Opioid Management Most Recent Pain and Opioid Data: Last Pain Scale 0 Today, 06:19 Last Pain Intensity 3 03/06/25, 11:19 Last Pain Assessment 06/25/25, 21:38 Last MAR Pain Assessment 06/25/25, 21:38 Last ORT Total Score 0 06/25/25, 20:11 Last ORT Risk Category Low Risk 06/25/25, 20:11 Review of Systems ROS Status of ROS 10 or more systems reviewed and unremarkable except as noted in history and below [facility] Medical History Fall ?W19.XXXA - Unspecified fall, initial encounter (ICD-10) Hyperkalemia ?E87.5 - Hyperkalemia (ICD-10) Peripheral vascular disease ?I73.9 - Peripheral vascular disease, unspecified (ICD-10) Nerve damage ?T14.8XXA - Other injury of unspecified body region, initial encounter (ICD-10) HTN (hypertension) ?I10 - Essential (primary) hypertension (ICD-10) Diabetes ?E11.9 - Type 2 diabetes mellitus without complications (ICD-10) Surgical History History of cholecystectomy ?Z90.49 - Acquired absence of other specified parts of digestive tract (ICD-10) H/O knee surgery ?Z98.890 - Other specified postprocedural states (ICD-10) History of hysterectomy ?Z90.710 - Acquired absence of both cervix and uterus (ICD-10) Previous back surgery ?Z98.890 - Other specified postprocedural states (ICD-10) H/O neck surgery ?Z98.890 - Other specified postprocedural states (ICD-10) Family History Mother Family history of cancer Other Family history of CHF (congestive heart failure) Social History (Updated 06/25/25 @ 20:28 by Carline Spivey RN) Within the past year, how often did you have a drink containing alcohol: never Within the past year, how often did you have six or more drinks on one occasion: never Score interpretation: A score less than 3 is consistent with normal alcohol consumption. Smoking status: Former smoker Second hand tobacco smoke exposure: Yes Non-prescribed substance use: denies use Known occupational exposures/hazards: No Highest level of school completed/degree received: high school graduate Do you want help with school or training: No Are you now , , , , never or living with a partner: In a typical week, how many times do you talk on the telephone with family, friends, or neighbors: twice per week How often do you get together with friends or relatives: twice per week Little interest or pleasure in doing things: not at all Feeling down, depressed, or hopeless: not at all Feel stressed/tense/nervous/anxious/difficulty sleeping: not at all Do you think of yourself as: straight/heterosexual Gender Identity: female Meds Home Medications and Allergies Home Medications ?Medication ?Instructions ?Recorded ?Confirmed ?Type allopurinol 100 mg tablet 100 mg PO QDAY 03/05/25 03/05/25 History buprenorphine 20 mcg/hour weekly 1 patch transdermal Q7D 03/05/25 06/25/25 History transdermal patch cyclobenzaprine 10 mg tablet 10 mg PO .qhs 03/05/25 06/25/25 History donepezil 5 mg tablet 5 mg PO .qhs 03/05/25 06/25/25 History escitalopram oxalate 20 mg tablet 20 mg PO BID 03/05/25 06/25/25 History esomeprazole magnesium 20 mg 20 mg PO Q24H 03/05/25 06/25/25 History capsule,delayed release levothyroxine 50 mcg tablet 50 mcg PO QAM 03/05/25 06/25/25 History metformin 500 mg tablet 500 mg PO DAILY 03/05/25 06/25/25 History pravastatin 10 mg tablet 10 mg PO QDAY 03/05/25 06/25/25 History risperidone 0.25 mg tablet 0.5 mg PO .QHS 03/05/25 06/25/25 History vitamin B12 1 tab PO DAILY 03/05/25 03/05/25 History gabapentin 300 mg capsule 300 mg PO Q8H #90 caps 03/08/25 Rx atenolol 25 mg tablet 12.5 mg PO DAILY 06/25/25 History spironolactone 25 mg tablet 25 mg PO DAILY 06/25/25 06/25/25 History Allergies Allergy/AdvReac Type Severity Reaction Status Date / Time codeine Allergy dizzy Verified 03/05/25 17:21 latex Allergy Rash Verified 03/05/25 17:21 meperidine (From Demerol) Allergy hallucinati Verified 03/05/25 17:21 on Sulfa (Sulfonamide Allergy Rash Verified 03/05/25 17:21 Antibiotics) Exam Narrative Exam Narrative: Patient is lying in bed. She is wearing a soft neck collar. Her neck is tilted to the right side. Chest is clear, heart is regular. Central obesity. No abdominal tenderness. No guarding. Lower extremities trace pitting edema and hyperpigmentation. Patient is able to provide information. Able to answer questions. Unable to provide details. Able to lift upper arms against gravity. Able to lift upper legs against gravity but not against resistance. Symmetrical tone. Symmetric reflexes Constitutional Vital Signs, click to edit/add: Last Vital Signs Temp 98.3 F 06/26/25 08:05 Pulse 76 06/26/25 08:05 Resp 18 06/26/25 08:05 BP 169/84 H 06/26/25 08:05 Pulse Ox 92 L 06/26/25 08:05 O2 Del Method Room Air 06/26/25 08:05 Results Labs Labs: Short CBC 06/25/25 06/26/25 Range/Units 16:24 05:28 WBC 10.5 9.4 (4.0-11.0) 10^3/uL Hgb 11.8 L 11.0 L (12.0-16.0) g/dL Hct 37.8 35.0 L (36.0-48.0) % Plt Count 278 254 (150-450) 10^3/uL BMP 06/25/25 06/26/25 16:24 05:28 Sodium 140 138 Potassium 5.6 H 4.8 Chloride 106 104 Carbon Dioxide 28.0 25.7 BUN 35.0 H 34.0 H Creatinine 1.87 H 1.66 H Glucose 123 H 113 H Calcium 9.7 9.5 Liver Function 06/25/25 Range/Units 16:24 Total Bilirubin 0.3 (0.2-1.0) mg/dL AST 16 (15-37) U/L ALT 24 (14-59) U/L Alkaline Phosphatase 135 H (46-116) U/L Albumin 3.8 (3.4-5.0) g/dL Urine 06/25/25 Range/Units 16:05 Urine Color Lt. yellow (YELLOW) Urine Clarity Clear (CLEAR) Urine pH 6.0 (5.0-9.0) Ur Specific G[place]mith 1.020 (1.005-1.025) Urine Protein Negative (NEG/TRACE) mg/dL Urine Glucose (UA) Negative (NEGATIVE) mg/dL Assessment and Plan Assessment and Plan (1) Weakness: (2) Spinal stenosis: (3) Myelomalacia: (4) Obesity: Plan Progressive weakness. Patient is unable to stand up and ambulate. Patient is wearing neck collar. I reviewed the record and the subsequently called her daughter Clyde to gather more information. Her daughter stated that the patient had cervical spine surgery in [place] more than 6 years ago. Patient had instrumentation in the cervical spine. 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 Subsequently, patient was told by her spine surgeon in [place] to wear halo for several years. Recently the patient switched the hard halo into the soft halo. Patient was told by her spine surgeon in [place] 5 years ago that her cervical bone vertebral body is so soft that he would not recommend any additional surgical intervention. Since then the patient has had progressive weakness and fatigue. She uses a walker at home. She was admitted to the long-term facility in April for several weeks. Subsequently her insurance company cut her down. She went back home and has been gradually declining. Patient had MRI of the cervical spine last month ordered by her primary care doctor Dr. Adkins. Please refer to MRI report for details but essentially showing severe right neural foraminal narrowing with moderate to severe spinal canal stenosis as well as underlying chronic myelomalacia within the cord itself. MRI of is also positive for significant but lesser degree spinal canal stenosis involving multiple levels. I suspect that her progressive weakness is likely secondary to spinal cord disease. I could not exclude other possible etiologies such as progressive myopathy, neuropathy, thoracic and lumbar spine disease causing or contributing to her weakness. I requested CAT scan of the head to rule out acute/subacute ischemic cerebral process although it is less likely given the preservation of her cognition and mental status. Goals of care discussion and advance care plan I had an open and honest conversation with her daughter Clyde about her issues. Given the development of chronic cervical spine myelomalacia, the patient may be having chronic and irreversible weakness involving her upper and lower extremities. Furthermore, her spine surgeon did not recommend any additional surgical intervention 6 years ago therefore it is unlikely that she would be offered surgical intervention now. At this time, her daughter Clyde is acceptinmg the fact that patient may never recover from the functional standpoint. Clyde is accepting that her mom would likely end up being wheelchair and Ayde lift dependent. (At this time she is totally dependent but hoping that she may recover with physical and Occupational Therapy ) I would trial the use of Decadron for a few days to see if there would be any improvement In addition patient is 85 years old with chronic kidney failure and obesity. She is also diagnosed having dementia and on Aricept however patient has preserved cognitive status to understand conversation related to her health. Clyde is in agreement not to put her through any additional diagnostic investigation for her weakness such as MRI of the entire spine and/or brain Clyde is in agreement not to put her through any additional therapeutic intervention other than physical and Occupational Therapy. Clyde would like her mom to go to a long-term facility. I will arrange for that. I suspect that the patient may end up needing to to stay at the care home long-term after skilled care. Clyde is aware of that. Furthermore we discussed her CODE STATUS and living well. I explained in simple terms of the difference between full code, CCA and CC. I explained in layman's terms the process of CPR, chest compressions and shocks. Clyde wants her mom to be CCA. She does not want her to receive any heroic measures such as intubation, shocks, life support or any other resuscitative effort in case of a cardiac or respiratory arrest. Hyperkalemia Likely caused by CKD while patient taking spironolactone. Discontinue spironolactone. Patient was given Lokelma yesterday and her potassium had been corrected. Diabetes, patient is on metformin. Metformin is contraindicated and the patient with a GFR less than 30. Her GFR now is 30 and creatinine is 1.66. We will discontinue metformin Hypothyroidism Continue Synthroid. Check TSH DVT prophylax Heparin subcu Chronic medical conditions not listed above, incidental findings seen on labs and imaging. These would need to be addressed. Could be addressed when time and condition are appropriate. Could be addressed in the outpatient setting by PCP collaboration with other needed outpatient providers. Urinary Catheter Management Urinary Catheter Management Pure Wick: Cath placed during this visit: no
--- NOTE | 2025-06-26 14:35 | CT_ITS ---
The [address] [address] Patient Name: VIDHYA REGALADO MRN: [id number] date: 1940 Sex: F Assigned Patient Location: [place] Current Patient Location: [place] Accession/Order Number: [id number] Exam Date: 06/26/2025 16:05 Report Date: 06/26/2025 16:11 At the request of: SOL MUHAMMAD MD Procedure: CT head/brain wo con CT BRAIN WITHOUT CONTRAST: CLINICAL HISTORY: Weakness COMPARISON: CT head 03/05/2025, MRI cervical spine 05/15/2025 TECHNIQUE: Contiguous axial unenhanced images were obtained through the brain. This CT exam was performed using one or more following dose reduction techniques: Automated exposure control, adjustment of the mA and/or kV according to patient size, or use of iterative reconstruction technique. FINDINGS: There is no evidence of midline shift, intra or extra-axial fluid collection, hemorrhage or CT evidence of of acute large vascular lesion stroke. Moderate chronic small ischemic disease and Central involutional changes identified. 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 There are contraindications identified involving the intracranial vasculature. Cataract surgery. Visualized paranasal sinuses are clear. No calvarial fracture. Severe degenerative changes at the craniocervical junction again identified better assessed on recent MRI cervical spine. CT/CT head/brain wo con IMPRESSION: NO ACUTE INTRACRANIAL ABNORMALITY. CHRONIC SMALL VESSEL ISCHEMIC DISEASE AND CENTRAL INVOLUTIONAL CHANGES. Impression dictated by: Odilon Jain M.D. 06/26/2025 4:11 PM Dictation Location: [place] [address] Electronically authenticated by: [id number] Y Date: 06/26/2025 16:11
--- NOTE | 2025-06-26 14:56 | SWNOTE1 ---
TONEY faxed H&P to the [facility].
[2025-06-26 14:57] VITALS: BP 138/73
[2025-06-26] MEDS: AMLODIPINE BESYLATE 5 MG TABLET 2.5 MG PO (14:57)
[2025-06-26] MEDS: ASPIRIN 81 MG TABLET.DR PO (14:57)
[2025-06-26] MEDS: DEXAMETHASONE SOD PHOS 10 MG/ML VIAL IM (15:25)
--- NOTE | 2025-06-26 15:41 | PM.EN ---
Event Note Event Note: I went back and talked to the patient about the different options. Patient is really in agreement to proceed with skilled care at the nursing facility. I informed the patient that I do not have a spine surgeon here at [facility] to evaluate your case comprehensively and determine if you would benefit from any surgical treatment. I offered to transfer her back to [facility] (assuming that her previous spine surgeon is still practicing ) or to [facility] Patient understood benefit and risk of all options. Patient declined to permit transferring her anywhere. She wants to stay here at [facility] and go to the nursing facility for rehabilitation. I informed her that her weakness may not recover completely and may end up dependent on wheelchair. She is comfortable with that. She stated that she has had neck trouble for a while and does not want intervention. I called her primary care doctor Dr. Adkins to discuss the case as well. He is in agreement for patient to go to skilled care meanwhile he will pursue to seek spine surgery opinion on MRI abnormalities and he will discuss further with the patient and her daughter. In fact, he told me that he started the process of seeking spine surgery consultation.
[2025-06-26 16:15] VITALS: BP 138/73; PULSE 74; O2SAT 91
[2025-06-26 20:00] VITALS: BP 150/68; PULSE 100; TEMP 36.8; O2SAT 92
[2025-06-26] MEDS: DONEPEZIL HCL 5 MG TABLET PO (21:04)
[2025-06-26] MEDS: ESCITALOPRAM 10 MG TABLET 20 MG PO (21:04)
[2025-06-26] MEDS: ACETAMINOPHEN 325 MG TABLET 650 MG PO (21:04)
[2025-06-26] MEDS: DEXAMETHASONE 4 MG TABLET PO (21:07)
[2025-06-27] VITALS (9 sets, daily range): BP systolic 137–180; BP diastolic 76–83; PULSE 87–98; TEMP 36.4–37.4; O2SAT 88–94
[2025-06-27] MEDS: ACETAMINOPHEN 325 MG TABLET 650 MG PO ×3 (00:50→12:08)
[2025-06-27 06:01] LABS: Hematocrit 37.3 % (36.0-48.0); Hemoglobin 12.1 g/dL (12.0-16.0); Mean Corpuscular HGB Conc 32.4 g/dL (29.9-35.2); Mean Corpuscular Hemoglobin 27.5 pg (26.7-34.0); Mean Corpuscular Volume 84.8 fL (81.0-99.0); Platelet Count 261 10^3/uL (150-450); Red Blood Count 4.40 10^6/uL (4.20-5.40); White Blood Count 11.0 10^3/uL (4.0-11.0)
[2025-06-27] MEDS: PANTOPRAZOLE SODIUM 40 MG TABLET.DR PO (06:02)
[2025-06-27] MEDS: LEVOTHYROXINE SODIUM 25 MCG TABLET 50 MCG PO (06:02)
[2025-06-27] MEDS: DEXAMETHASONE 4 MG TABLET PO ×2 (06:02→13:50)
[2025-06-27 06:14] LABS: Anion Gap 12.9; Blood Urea Nitrogen 38.0 mg/dL (7.0-18.0); Calcium 9.5 mg/dL (8.5-10.1); Carbon Dioxide 26.4 mmol/L (21.0-32.0); Chloride 102 mmol/L (98-107); Estimated GFR (African America 31 (>=60 mL/min/1.73m^2); Estimated GFR (Non-African Ame 26 (>=60 mL/min/1.73m^2); Glucose 255 mg/dL (74-106); Potassium 5.3 mmol/L (3.5-5.1); Sodium 136 mmol/L (136-145)
--- NOTE | 2025-06-27 08:25 | SWNOTE1 ---
Precert to [facility] was started on 06/26/25.
--- NOTE | 2025-06-27 08:52 | SWNOTE1 ---
SW reviewed RO form with pt, she voiced she would like SW to review form with daughter, Divya.
--- NOTE | 2025-06-27 09:20 | CM.NOTE ---
Rounds made with Dr. Momin, Dr. Momin discussed plan of care with pt's PCP. Pt had outpatient MRI done in May with significant findings that have been discussed with pt and daughter. Dr. Momin discussed transfer to [facility] or [facility] to see specialist to consider surgical intervention( if pt would be a candidate). Pt at this time refuses transfer and does not want intervention. Pt A&Ox3 at this time and verbalizes understanding of risks and benefits. Daughter also aware of MRI findings and would like mother to make her own decision regarding transfer or intervention. Pt continues to verbalize that she does not want surgical intervention and wishes are to stay at [facility] and go to [facility] for skilled rehab at discharge.
[2025-06-27] MEDS: ESCITALOPRAM 10 MG TABLET 20 MG PO ×2 (09:22→21:34)
[2025-06-27] MEDS: TORSEMIDE 20 MG TABLET PO (09:22)
[2025-06-27] MEDS: ASPIRIN 81 MG TABLET.DR PO (09:23)
[2025-06-27] MEDS: AMLODIPINE BESYLATE 5 MG TABLET 2.5 MG PO ×2 (09:23→10:34)
--- NOTE | 2025-06-27 10:12 | P.PN_ITS ---
Progress Note: Subjective Subjective Interval history: Uneventful night. Patient reports having constipation. Persistent numbing sensation involving her hands and feet. Chronic neck pain for the last 7 years Exam Narrative Exam Narrative: Patient is lying in bed. She has neck collar on. Her had this tilted to the right side with slight contraction and the rigidity suggestive of chronicity. Chest is clear, heart regular. Abdomen soft. Increased abdominal girth, no tenderness. Hypoactive bowel sounds. Lower extremities trace pitting edema. Hyperpigmentation. Patient is able to lift upper arms against mild resistance. Patient is able to lift upper legs against gravity. Symmetrical tone. Mild hyperreflexia. Constitutional Vital Signs, click to edit/add: Last Vital Signs Temp 97.6 F 06/27/25 07:48 Pulse 91 H 06/27/25 07:48 Resp 16 06/27/25 07:48 BP 180/79 H 06/27/25 07:48 Pulse Ox 90 L 06/27/25 07:48 O2 Del Method Room Air 06/27/25 07:48 Progress Note: Objective Labs Labs: Short CBC 06/27/25 Range/Units 05:53 WBC 11.0 (4.0-11.0) 10^3/uL Hgb 12.1 (12.0-16.0) g/dL Hct 37.3 (36.0-48.0) % Plt Count 261 (150-450) 10^3/uL BMP 06/27/25 05:53 Sodium 136 Potassium 5.3 H Chloride 102 Carbon Dioxide 26.4 BUN 38.0 H Creatinine 1.86 H Glucose 255 H Calcium 9.5 Progress Note: A&P Assessment and Plan (1) Weakness: (2) Spinal stenosis: (3) Myelomalacia: (4) Obesity: Plan Progressive weakness. Gradual up progression of her weakness over the last 7 years but more rapid decline over the last 2 months prompting the decision by her primary care doctor to order MRI of the cervical spine in the beginning of May. Cervical spine stenosis. Neuroforaminal narrowing. Myelomalacia suggestive of chronicity and and likelihood of irreversibility I discussed this with patient, her daughter and their primary care doctor. Her primary care doctor Dr. Adkins was planning to seek spine surgery consultation, not yet accomplished in the outpatient setting. I had a long conversation with her daughter yesterday about her cervical spine issue and the progressive weakness. Daughter confirmed that patient has been progressively weak for the last several years. Patient confirmed that patient had cervical spine repair 6 to 7 years ago in [place] followed by revision due to migration of rods Subsequently her surgeon told her that they would not recommend any show logical intervention on her neck anytime in the future. Her daughter asked me to discuss this further with the patient and make her make the final decision. Patient is on Aricept for suspected dementia however she is very coherent. She is able to understand conversation related to her health. She is able to understand the benefit, risk, options, alternatives. I offered the patient to transfer her to [place] to see her spine team if not retired yet. I also offered patient to go to [place] such as [facility] or . I informed the patient that transferring her does not mean that she would definitely have cervical spine operation Furthermore I could not exclude other possible thoracic or lumbar spinal abnormalities contributing to her weakness I informed patient 06/26 and 06/27 and her daughter on 06/26 that without surgery there is a likelihood that the patient will continue to decline from the functional standpoint and they become wheelchair and bedbound today. Patient understood the conversation very well. Patient understood the potential risk and benefit. Patient was able to ask and answer questions. Patient was able to repeat and recite. Patient declined to allow me to initiate transfer. Patient does not want to have any surgical intervention whatsoever. Patient is interested in having PT OT at the nursing facility. Hyperkalemia Likely caused by CKD while patient taking spironolactone. Discontinue spironolactone. Patient was given Lokelma on 06/25 Given her CKD I would start patient on diuretics to keep patient in euvolemic state and keep potassium hopefully less than 5.4. Diabetes, patient is on metformin. Metformin is contraindicated and the patient with a GFR less than 30. Her GFR now is 30 and creatinine is 1.66. We will discontinue metformin Hypothyroidism Continue Synthroid. Check TSH DVT prophylax Heparin subcu Chronic medical conditions not listed above, incidental findings seen on labs and imaging. These would need to be addressed. Could be addressed when time and condition are appropriate. Could be addressed in the outpatient setting by PCP collaboration with other needed outpatient providers. Urinary Catheter Management Urinary Catheter Management Pure Wick: Cath placed during this visit: no
--- NOTE | 2025-06-27 10:57 | SWNOTE1 ---
SW called daughter, Divya Love, and reviewed RO form with her as well. Pt nor daughter had questions or concerns in regards to RO form. SW signed the form that it was reviewed with pt and daughter. TONEY placed original in pt's room and copy on chart.
--- NOTE | 2025-06-27 11:13 | REH.PTDLY ---
Physical Therapy Daily Note PT Daily Note/Assess Start: 06/27/25 11:06 Freq: Status: Active Protocol: Document 06/27/25 11:07 [email or web address] (Rec: 06/27/25 11:12 [facility] [id number]) Physical Therapy Daily Note/Assessment Time In 10:33 Time Out 10:54 Subjective Pt in chair upon arrival, reports her neck pain as an 8 /10 and that hands are numb. Pt wearing neck collar. Student nurse and pt states it was a 2 assist for pt to get into chair. Therapeutic Exercise 10 Minutes (minutes) Therapeutic Exercise 1 Units Therapeutic Exercise Instructed in Zachery LE exs with feet elevated in recliner Treatment 10x ea with AP, QS, AA heel slides, AA hip abd slides, and AA SLR to improve strength for ease of transfers and gait. L LE is weaker compared to R LE with limited ROM. Seated exs included LAQ, hip add squeeze, and marching 10x ea. Marching performed in very small range Therapeutic Activity 7 Minutes (minutes) Therapeutic Activity 0 Units Therapeutic Activity Instructed in sit to stand transfers from chair. First Comments transfer cued pt to scoot forward and to push off with arms from chair, pt able to stand up with Min A x2, with blocking of pt's feet to prevent them from sliding forward. Pt stood for 30 seconds, attempted to advance feet, but unsuccessful. On second attempt to stand pt is unsuccessful in standing, readjusted pt's feet and continued to cue pt. Pt is then able to stand with Mod A x2 on 3rd attempt, however pt sits down rather quickly after 20 seconds. Total Therapy 17 Minutes Total Physical 1 Therapy Units Daily Note Summary Pt continues to need 2 assist with transfers. Pt unable to ambulate at this time. Worked on Zachery LE exs to improve strength for transfers and gait. Pt will need SNF stay at [facility] to become stronger as she is unable to care for herself at this time.
--- NOTE | 2025-06-27 11:47 | SWNOTE1 ---
TONEY faxed over PT/OT, phsyician notes, labs, vitals, and nursing notes to Ara at [facility] to be attached to pt's precert.
[2025-06-27] MEDS: SENNOSIDES/DOCUSATE SODIUM 1 TAB TABLET 2 TAB PO (12:08)
[2025-06-27] MEDS: POLYETHYLENE GLYCOL 3350 17 GM POWDER PACKET PO (12:08)
[2025-06-27] MEDS: METHYLNALTREXONE BROMIDE 12 MG/0.6 ML VIAL SUBQ (12:18)
[2025-06-27] MEDS: DONEPEZIL HCL 5 MG TABLET PO (21:34)
[2025-06-27] MEDS: TRAMADOL HCL 50 MG TABLET PO (21:34)
[2025-06-27] MEDS: PREGABALIN 50 MG CAPSULE PO (21:34)
[2025-06-28 04:00] VITALS: BP 150/85; PULSE 80; TEMP 36.4; O2SAT 90
[2025-06-28] MEDS: PANTOPRAZOLE SODIUM 40 MG TABLET.DR PO (05:50)
[2025-06-28] MEDS: LEVOTHYROXINE SODIUM 25 MCG TABLET 50 MCG PO (05:50)
[2025-06-28 08:01] VITALS: BP 146/74; PULSE 94; TEMP 36.5; O2SAT 92
--- NOTE | 2025-06-28 08:49 | SWNOTE1 ---
SW had an email from Eugene at [facility] and pt is approved to go to [facility]. SW notified case management.
--- NOTE | 2025-06-28 08:56 | SWNOTE1 ---
TONEY called daughter, Divya, and updated her on approval from insurance. She did ask about transport, SW let her know that the [facility] or trips will transport. She did ask about clothes and that she would not be able to get clothes to her right away, but likely later to the [facility]. SW assured daughter that we can accommodate.
--- NOTE | 2025-06-28 09:00 | CM.NOTE ---
Rounds made with Dr. Momin, pt has been approved for skilled therapy at [facility]. Dr. Momin changing pt to inpatient status today. Pt continues with c/o increasing abdominal pain. SW will update [facility].
[2025-06-28] MEDS: SENNOSIDES/DOCUSATE SODIUM 1 TAB TABLET 2 TAB PO (09:43)
[2025-06-28] MEDS: POLYETHYLENE GLYCOL 3350 17 GM POWDER PACKET PO ×2 (09:43→21:46)
[2025-06-28] MEDS: DOCUSATE SODIUM 100 MG CAPSULE PO ×2 (09:44→21:46)
[2025-06-28] MEDS: PREGABALIN 50 MG CAPSULE PO ×2 (09:44→21:46)
[2025-06-28] MEDS: AMLODIPINE BESYLATE 5 MG TABLET PO (09:44)
[2025-06-28] MEDS: TORSEMIDE 20 MG TABLET PO (09:44)
[2025-06-28] MEDS: ASPIRIN 81 MG TABLET.DR PO (09:44)
[2025-06-28] MEDS: ESCITALOPRAM 10 MG TABLET 20 MG PO (09:44)
[2025-06-28] MEDS: TRAMADOL HCL 50 MG TABLET PO (09:44)
[2025-06-28] MEDS: DEXAMETHASONE 4 MG TABLET PO ×2 (09:44→21:46)
--- NOTE | 2025-06-28 10:13 | XR_ITS ---
[place] [id number] Patient Name: VIDHYA REGALADO MRN: [id number] date: 1940 Sex: F Assigned Patient Location: [place] Current Patient Location: [place] Accession/Order Number: [id number] Exam Date: 06/28/2025 12:02 Report Date: 06/28/2025 12:05 At the request of: SOL MUHAMMAD MD Procedure: XR abdomen 1V Single supine view abdomen INDICATION: Ileus XR/XR abdomen 1V IMPRESSION: 02/25/2025 FINDINGS: There are prominent gas-filled loops of bowel identified moderate stool burden rectosigmoid junction. No definite free air. Multilevel postsurgical changes thoracolumbar instrumentation noted. IMPRESSION: Moderate stool burden rectosigmoid junction. Moderate gaseous of the bowel loops may suggest distal obstruction or impaction. Impression dictated by: Odilon Jain M.D. 06/28/2025 12:05 PM Dictation Location: [place] [address] Electronically authenticated by: [id number] Y Date: 06/28/2025 12:05
--- NOTE | 2025-06-28 10:13 | PM.PN ---
Progress Note: Subjective Subjective Interval history: Patient had large bowel movement yesterday. Persistent numbing sensation involving her hands and feet. Chronic neck pain for the last 7 years Exam Narrative Exam Narrative: Patient is lying in bed. She has neck collar on. Her had this tilted to the right side with slight contraction and the rigidity suggestive of chronicity. Chest is clear, heart regular. Abdomen soft. Increased abdominal girth, no tenderness. Hypoactive bowel sounds. Lower extremities trace pitting edema. Hyperpigmentation. Patient is able to lift upper arms against mild resistance. Patient is able to lift upper legs against gravity. Symmetrical tone. Mild hyperreflexia. Constitutional Vital Signs, click to edit/add: Last Vital Signs Temp 97.7 F 06/28/25 08:01 Pulse 94 H 06/28/25 08:01 Resp 18 06/28/25 08:01 BP 146/74 H 06/28/25 08:01 Pulse Ox 92 L 06/28/25 08:01 O2 Del Method Room Air 06/28/25 08:01 Progress Note: A&P Assessment and Plan (1) Weakness: (2) Spinal stenosis: (3) Myelomalacia: (4) Obesity: Plan Progressive weakness. Gradual up progression of her weakness over the last 7 years but more rapid decline over the last 2 months prompting the decision by her primary care doctor to order MRI of the cervical spine in the beginning of May. Cervical spine stenosis. Neuroforaminal narrowing. Myelomalacia suggestive of chronicity and and likelihood of irreversibility I discussed this with patient, her daughter and their primary care doctor. Her primary care doctor Dr. Adkins was planning to seek spine surgery consultation, not yet accomplished in the outpatient setting. I had a long conversation with her daughter yesterday about her cervical spine issue and the progressive weakness. Daughter confirmed that patient has been progressively weak for the last several years. 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 Her daughter asked me to discuss this further with the patient and make her make the final decision. Patient is on Aricept for suspected dementia however she is very coherent. She is able to understand conversation related to her health. She is able to understand the benefit, risk, options, alternatives. I offered the patient to transfer her to [place] to see her spine team if not retired yet. I also offered patient to go to [place] such as [facility] or . I informed the patient that transferring her does not mean that she would definitely have cervical spine operation Furthermore I could not exclude other possible thoracic or lumbar spinal abnormalities contributing to her weakness I informed patient 06/26 and 06/27 and her daughter on 06/26 that without surgery there is a likelihood that the patient will continue to decline from the functional standpoint and they become wheelchair and bedbound today. Patient understood the conversation very well. Patient understood the potential risk and benefit. Patient was able to ask and answer questions. Patient was able to repeat and recite. Patient declined to allow me to initiate transfer. Patient does not want to have any surgical intervention whatsoever. Patient is interested in having PT OT at the nursing facility. Patient will be discharged to the [facility] once medically cleared Ileus likely secondary to diminished activity, the use of opiates. Probable opiate induced ileus. Patient had a bowel movement yesterday after given Relistor, Senokot and MiraLAX Patient is feeling better today. Continues to have some distention. Requested KUB Continue stool softeners, laxatives and stimulant Hyperkalemia Likely caused by CKD while patient taking spironolactone. Discontinue spironolactone. Patient was given Lokelma on 06/25 Given her CKD I started patient on diuretics to keep patient in euvolemic state and keep potassium hopefully less than 5.4. Diabetes, patient is on metformin. Metformin is contraindicated and the patient with a GFR less than 30. Her GFR now is 30 and creatinine is 1.66. We will discontinue metformin Hypothyroidism Continue Synthroid. Check TSH CKD stage III, near baseline Avoid nephrotoxic drugs. Start patient on diuretics to keep her in euvolemic state DVT prophylax Heparin subcu Chronic medical conditions not listed above, incidental findings seen on labs and imaging. These would need to be addressed. Could be addressed when time and condition are appropriate. Could be addressed in the outpatient setting by PCP collaboration with other needed outpatient providers. Urinary Catheter Management Urinary Catheter Management Pure Wick: Cath placed during this visit: no
[2025-06-28] MEDS: MAGNESIUM HYDROXIDE 2,400 MG/10 ML ORAL.SUSP 2400 MG PO (10:48)
--- NOTE | 2025-06-28 10:52 | SWNOTE1 ---
TONEY spoke to case management and pt is not discharging today. TONEY updated Eugene at [facility] and she voiced they do have several other referrals and if pt does not come tomorrow, her bed may be filled. TONEY to let doctor know.
[2025-06-28 11:41] VITALS: BP 136/83; PULSE 100; TEMP 36.6; O2SAT 93
--- NOTE | 2025-06-28 13:11 | SWNOTE1 ---
SW called and updated pt's daughter of no discharge today, left message. SW called daughter, Divya, while in room with pt. Divya and pt were able to converse, SW assisted with holding the phone. Daughter did inform SW that pt now has to share room with someone at [facility]. Pt is alright with this. SW also assisted pt with calling her brother. SW then assisted pt with ordering lunch. Nurse updated.
--- NOTE | 2025-06-28 13:39 | SWNOTE1 ---
Important Message from Medicare reviewed and discussed with patient and pt's daughter, Divya Love, via telephone. Pt and daughter verbalized understanding and had SW sign the form that it was reviewed. Original placed in pt's room and copy placed in patient?s chart.
--- NOTE | 2025-06-28 15:02 | OT.DAILY ---
Occupational Therapy Daily Note OT Inpatient Daily Visit Note Start: 06/26/25 10:44 Freq: Status: Active Protocol: Document 06/28/25 14:51 [id number] (Rec: 06/28/25 15:01 [id number] No Response) OT Visit Details Time In/Time Out Time In 14:25 Time Out 14:48 OT Treatment Plan Subjective Subjective I am feeling weak Objective Objective Completed stand-pivot transfer from EOB to BSC, 2x assist. Able to maintain TINO while sitting on commode. No BMs, minimal voiding. Max A kimberly-care for generalized weakness and poor dynamic balance. Sit-to- stand from BSC to walker 2x assist, pivot to recliner chair to begin LB dressing with nursing staff. Assessment Assessment Pt tolerated treatment well. She was agreeable to sit- to-stand as needed for adjustments and body positioning . 2-4 VCs during transfer for correct positioning and safety techniques. Continue OT POC. OT Cloth Hand Timed Codes Self-Nursing Home 20 Management minutes ( minutes) Self-Nursing Home 1 Management units
--- NOTE | 2025-06-28 15:03 | PT.DAILY ---
Physical Therapy Daily Note PT Daily Note/Assess Start: 06/27/25 11:06 Freq: Status: Active Protocol: Document 06/28/25 14:50 [id number] (Rec: 06/28/25 15:03 ESHUMARIANO [id number]) Physical Therapy Daily Note/Assessment Time In/Time Out Time In 14:08 Time Out 14:48 Subjective Subjective Patient is agreeable to PT. Wishes to get up to commode and then into chair. Patient reports neck pain but does not rate on pain scale, and complaints of numbness in B hands. Therapeutic Exercise Time Therapeutic Exercise 10 Minutes (minutes) Therapeutic Exercise 1 Units Therapeutic Exercise Treatment Therapeutic Exercise Supine exercises with APOM in all planes to promote Treatment improved strength and prepare for bed mobility and transfers. Therapeutic Activity Time Therapeutic Activity 15 Minutes (minutes) Therapeutic Activity 1 Units Therapeutic Activity Treatment Bed Mobility Ability Maximum Assist,1 Person Assist Chair Transfer Minimum Assist,Moderate Assist,1 Person Assist,2 Person Ability Assist Therapeutic Activity Patient does well initiating bed mobility with brining Comments legs off of bed but then requires max assist at trunk to come up into unsupported sitting. Sit stands completed 8x throughout RX from various heights and surfaces with assistance ranging from mod assist x1 to min assist x2. Transfer from bed to commode was mod assist x2 with side stepping over, and then min assist x2 going form commode to chair. Once in chair patient was unable to push self back and did require max assist position comfortably in chair. Total Physical Therapy Time Total Therapy 25 Minutes Total Physical 2 Therapy Units Summary Daily Note Summary Patient does show improvements in transfers and bed mobility but is still heavily reliant on assistance for safety and due to weakness. Patient will benefit from SNF at [place] to gain strength allowing her to return to [facility]. Patient is in chair and nursing takes over care post RX.
--- NOTE | 2025-06-28 15:04 | PT.DAILY ---
Physical Therapy Daily Note PT Daily Note/Assess Start: 06/27/25 11:06 Freq: Status: Active Protocol: Document 06/28/25 14:50 ESSOFÍA (Rec: 06/28/25 15:03 ESHUMARIANO [id number]) Physical Therapy Daily Note/Assessment Time In/Time Out Time In 14:08 Time Out 14:48 Subjective Subjective Patient is agreeable to PT. Wishes to get up to commode and then into chair. Patient reports neck pain but does not rate on pain scale, and complaints of numbness in B hands. Therapeutic Exercise Time Therapeutic Exercise 10 Minutes (minutes) Therapeutic Exercise 1 Units Therapeutic Exercise Treatment Therapeutic Exercise Supine exercises with APOM in all planes to promote Treatment improved strength and prepare for bed mobility and transfers. Therapeutic Activity Time Therapeutic Activity 15 Minutes (minutes) Therapeutic Activity 1 Units Therapeutic Activity Treatment Bed Mobility Ability Maximum Assist,1 Person Assist Chair Transfer Minimum Assist,Moderate Assist,1 Person Assist,2 Person Ability Assist Therapeutic Activity Patient does well initiating bed mobility with brining Comments legs off of bed but then requires max assist at trunk to come up into unsupported sitting. Sit stands completed 8x throughout RX from various heights and surfaces with assistance ranging from mod assist x1 to min assist x2. Transfer from bed to commode was mod assist x2 with side stepping over, and then min assist x2 going form commode to chair. Once in chair patient was unable to push self back and did require max assist position comfortably in chair. Total Physical Therapy Time Total Therapy 25 Minutes Total Physical 2 Therapy Units Summary Daily Note Summary Patient does show improvements in transfers and bed mobility but is still heavily reliant on assistance for safety and due to weakness. Patient will benefit from SNF at [place] to gain strength allowing her to return to [facility]. Patient is in chair and nursing takes over care post RX.
[2025-06-28 15:26] VITALS: BP 150/84; PULSE 98; TEMP 36.6; O2SAT 94
[2025-06-28 20:00] VITALS: BP 137/82; PULSE 83; TEMP 36.5
--- NOTE | 2025-06-28 20:00 | CT_ITS ---
[address] [address] Patient Name: VIDHYA REGALADO MRN: [id number] date: 1940 Sex: F Assigned Patient Location: MS Current Patient Location: [place] Accession/Order Number: [id number] Exam Date: 06/28/2025 22:02 Report Date: 06/28/2025 22:57 At the request of: SOL MUHAMMAD MD Procedure: CT abdomen pelvis wo con CT Abdomen and Pelvis withoutcontrast TECHNIQUE: Axial imaging with 2-D reconstruction. . The CT exam was performed using one or more the following dose reduction techniques: Automated exposure control, adjustment of the MA and/or Kv according to patient size, or use of the iterative reconstruction technique. COMPARISON: None History: Constipation. Assessment for obstruction LIMITATIONS: None LOWER THORAX mild atelectasis/scarring. LIVER: Unremarkable GALLBLADDER: Cholecystectomy clips identified. BILE DUCTS: No dilatation SPLEEN: Unremarkable PANCREAS: Unremarkable ADRENAL GLANDS: Unremarkable KIDNEYS:Unremarkable AORTA: No abdominal aortic aneurysm identified. Atherosclerosis RETROPERITONEUM: No significant retroperitoneal abnormalities identified. MESENTERY:Unremarkable STOMACH:Unremarkable SMALL BOWEL: The small bowel loops are nondistended. APPENDIX: The appendix is normal. COLON: Moderate burden of stool throughout the colon. URINARY BLADDER: Urinary bladder is unremarkable. REPRODUCTIVE SYSTEM: Reproductive structures are unremarkable. PNEUMOPERITONEUM: None PERITONEAL FLUID:None BONY STRUCTURES: Spinal fixation hardware ABDOMINAL WALL: Unremarkable CT/CT abdomen pelvis wo con IMPRESSION: No acute findings. Moderate constipation. No bowel obstruction. No focal inflammatory changes. Impression dictated by: Mark Funez M.D. 06/28/2025 10:57 PM Dictation Location: [employer] Electronically authenticated by: [id number] Y Date: 06/28/2025 22:57
[2025-06-28] MEDS: DONEPEZIL HCL 5 MG TABLET PO (21:46)
[2025-06-29] VITALS: BP 144/83; PULSE 82; O2SAT 92
[2025-06-29 03:37] VITALS: BP 122/80; PULSE 80; TEMP 36.4; O2SAT 94
[2025-06-29 05:31] LABS: Hematocrit 38.9 % (36.0-48.0); Hemoglobin 12.8 g/dL (12.0-16.0); Mean Corpuscular HGB Conc 32.9 g/dL (29.9-35.2); Mean Corpuscular Hemoglobin 27.2 pg (26.7-34.0); Mean Corpuscular Volume 82.8 fL (81.0-99.0); Platelet Count 311 10^3/uL (150-450); Red Blood Count 4.70 10^6/uL (4.20-5.40); White Blood Count 15.0 10^3/uL (4.0-11.0)
[2025-06-29 05:52] LABS: Anion Gap 15.2; Blood Urea Nitrogen 60.0 mg/dL (7.0-18.0); Calcium 9.5 mg/dL (8.5-10.1); Carbon Dioxide 29.6 mmol/L (21.0-32.0); Chloride 93 mmol/L (98-107); Estimated GFR (African America 30 (>=60 mL/min/1.73m^2); Estimated GFR (Non-African Ame 24 (>=60 mL/min/1.73m^2); Glucose 225 mg/dL (74-106); Potassium 4.8 mmol/L (3.5-5.1); Sodium 133 mmol/L (136-145)
[2025-06-29] MEDS: LEVOTHYROXINE SODIUM 25 MCG TABLET 50 MCG PO (06:15)
[2025-06-29] MEDS: PANTOPRAZOLE SODIUM 40 MG TABLET.DR PO (06:15)
[2025-06-29 07:22] VITALS: BP 130/80; PULSE 87; TEMP 36.2; O2SAT 93
--- NOTE | 2025-06-29 08:39 | SWNOTE1 ---
TONEY called Janette at [facility] and let her know that pt is ready for discharge today.
--- NOTE | 2025-06-29 08:45 | CM.NOTE ---
Rounds made with Dr. Momin, pt will discharge to [facility] for skilled therapy today. Updated SW, SW will notify [facility] and set up discharge transportation.
[2025-06-29] MEDS: POLYETHYLENE GLYCOL 3350 17 GM POWDER PACKET PO (09:52)
[2025-06-29] MEDS: TORSEMIDE 20 MG TABLET PO (09:53)
[2025-06-29] MEDS: ESCITALOPRAM 10 MG TABLET 20 MG PO (09:53)
[2025-06-29] MEDS: DOCUSATE SODIUM 100 MG CAPSULE PO (09:53)
[2025-06-29] MEDS: PREGABALIN 50 MG CAPSULE PO (09:53)
[2025-06-29] MEDS: SENNOSIDES/DOCUSATE SODIUM 1 TAB TABLET 2 TAB PO (09:53)
[2025-06-29] MEDS: AMLODIPINE BESYLATE 5 MG TABLET PO (09:53)
[2025-06-29] MEDS: DEXAMETHASONE 4 MG TABLET PO (09:53)
[2025-06-29] MEDS: ASPIRIN 81 MG TABLET.DR PO (09:54)
--- NOTE | 2025-06-29 10:53 | PT.DAILY ---
Physical Therapy Daily Note PT Daily Note/Assess Start: 06/27/25 11:06 Freq: Status: Active Protocol: Document 06/29/25 10:49 CHAZ (Rec: 06/29/25 10:53 CHAZ [id number]) Physical Therapy Daily Note/Assessment Time In/Time Out Time In 10:30 Time Out 10:43 Pain In Pain N/A Pain Out Pain N/A Subjective Subjective Pt supine upon arrival. Agrees to PT. Planned dc this afternoon to [facility]. Therapeutic Activity Time Therapeutic Activity 10 Minutes (minutes) Therapeutic Activity 1 Units Therapeutic Activity Treatment Bed Mobility Ability Maximum Assist Chair Transfer Maximum Assist Ability Therapeutic Activity Supine>sit MaxA due to heavy posterior lean and to Comments shift hips to EOB. Pt sit>stand to RW MaxA - cont to demonstrate heavy posterior lean. 3x attempts for sit> stand to feel stable enough to pivot to BS chair. Pt takes 3 side steps with R foot to pivot to chair using RW and MaxA. pt wishes to get dressed to prepare for dc . Needs total assist for upper and lower body dressing. Sit>stand with ModA+2 to pull pants up completely. Pt able to scoot herself back into chair with ModA. Pt remains in BS chair with call light within reach and needs met. Total Physical Therapy Time Total Therapy 10 Minutes Total Physical 1 Therapy Units Summary Daily Note Summary Poor transfer ability. Would benefit greatly from SNF to improve strength, balance, and endurance to PLOF.
--- NOTE | 2025-06-29 11:07 | P.DS_ITS ---
DS: Providers Provider Date of admission: 06/28/25 08:30 Primary care physician: STACIA KELLER Consults: 06/25/25 19:20 Occupational Therapy Eval and Treat Routine Reason for consultation: Weakness Physical Therapy Eval and Treat Routine Reason for consultation: Weakness DS: Diagnosis Discharge Diagnosis (1) Weakness: (2) Spinal stenosis: (3) Myelomalacia: (4) Obesity: Plan As listed above and others that are not listed DS: Summary Hospital Course Hospital Course: Mrs. Giordano is 85-year-old female who came in with progressive weakness and a chronic functional decline over the last several years. Patient was found to have the following Progressive weakness. Gradual progression of her weakness over the last 7 years but more rapid decline over the last 2 months prompting the decision by her primary care doctor to order MRI of the cervical spine in the beginning of May. Cervical spine stenosis. Neuroforaminal narrowing. Myelomalacia suggestive of chronicity and and likelihood of irreversibility I discussed this with patient, her daughter and their primary care doctor. Her primary care doctor Dr. Adkins was planning to seek spine surgery consultation, not yet accomplished in the outpatient setting. I had a long conversation with her daughter about her cervical spine issue and the progressive weakness. Daughter confirmed that patient has been progressively weak for the last several years. 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 Her daughter asked me to discuss this further with the patient and make her make the final decision. Patient is on Aricept for suspected dementia however she is very coherent. She is able to understand conversation related to her health. She is able to understand the benefit, risk, options, alternatives. Patient was able to ask and answer questions. Patient was able to recite I offered the patient to transfer her to [place] to see her spine team if not retired yet. I also offered patient to go to [place] such as [facility] or . I informed the patient that transferring her does not mean that she would definitely have cervical spine operation Furthermore I could not exclude other possible thoracic or lumbar spinal abnormalities contributing to her weakness I informed patient 06/26 and 06/27 and her daughter on 06/26 that without surgery there is a likelihood that the patient will continue to decline from the functional standpoint and they become wheelchair and bedbound today. Patient understood the conversation very well. Patient understood the potential risk and benefit. Patient was able to ask and answer questions. Patient was able to repeat and recite. Repeatedly and on a daily basis, patient declined to allow me to initiate transfer. Repeatedly and on a daily basis, patient does not want to have any surgical intervention whatsoever. Patient is interested in having PT OT at the nursing facility. Patient will be discharged to the assisted once medically cleared Her daughter was made aware of patient's decision not to proceed with any surgical intervention at this time. Daughter is comfortable and content with the decision Ileus likely secondary to diminished activity, the use of opiates. Probable opiate induced ileus. Patient had a bowel movement yesterday after given Relistor, Senokot and MiraLAX Patient is feeling better today. Continues to have some distention. Requested KUB which showed constipation with fecal impaction. I ordered CT scan which does not show any obstruction. Patient is feeling much better. She has had multiple bowel movements over the last 48 hours. Continue stool softeners, laxatives and stimulant Hyperkalemia Likely caused by CKD while patient taking spironolactone. Discontinued spironolactone. Patient was given Lokelma on 06/25 Given her CKD I started patient on diuretics to keep patient in euvolemic state and keep potassium hopefully less than 5.4. Diabetes, patient is on metformin. Metformin is contraindicated and the patient with a GFR less than 30. Her GFR now is 30 and creatinine is 1.66. We will discontinue metformin Last A1c was normal. Her blood sugar is slightly elevated secondary to Decadron. Hopefully this will stabilize after discontinuation of Decadron Hypothyroidism Continue Synthroid. CKD stage III, near baseline Avoid nephrotoxic drugs. Start patient on diuretics to keep her in euvolemic state DVT prophylax Heparin subcu Chronic medical conditions not listed above, incidental findings seen on labs and imaging. These would need to be addressed. Could be addressed when time and condition are appropriate. Could be addressed in the outpatient setting by PCP collaboration with other needed outpatient providers. Patient has multiple complex medical issues as listed above and others that are not listed. All appear to be stable. I do not have any clear or strong clinical justification to extend inpatient hospitalization. Patient however will require close and frequent monitoring as well as additional work-up, investigation and therapeutic intervention that could take place from this point on post discharge. That is to prevent relapse, decompensation, rehospitalization and other medical implications. I instructed patient to ask her primary care doctor to obtain [facility] record entirely to address abnormalities seen on labs and imaging that I have and have not addressed during this hospitalization, follow-up on pending blood work, imaging and pathology is if available and to follow-up on needed medical care in the outpatient setting. Time Spent with Patient Time attestation: Total time spent providing and/or coordinating discharge services: Time spent: greater than 30 minutes Exam Narrative Exam Narrative: Patient is lying in bed. She has neck collar on. Her had this tilted to the right side with slight contraction and the rigidity suggestive of chronicity. Chest is clear, heart regular. Abdomen soft. Increased abdominal girth, no tenderness. Hypoactive bowel sounds. Lower extremities trace pitting edema. Hyperpigmentation. Patient is able to lift upper arms against mild resistance. Patient is able to lift upper legs against gravity. Symmetrical tone. Mild hyperreflexia. Constitutional Vital Signs, click to edit/add: Last Vital Signs Temp 97.2 F L 06/29/25 07:22 Pulse 87 06/29/25 07:22 Resp 18 06/29/25 07:22 BP 130/80 06/29/25 07:22 Pulse Ox 93 L 06/29/25 07:22 O2 Del Method Room Air 06/29/25 07:22 DS: Data Data Completed and Pending Labs on day of discharge: Labs from last 24 hours 06/29/25 05:10 WBC 15.0 H RBC 4.70 Hgb 12.8 Hct 38.9 MCV 82.8 MCH 27.2 MCHC 32.9 RDW 15.2 H Plt Count 311 MPV 10.7 Sodium 133 L Potassium 4.8 Chloride 93 L Carbon Dioxide 29.6 Anion Gap 15.2 BUN 60.0 H Creatinine 1.94 H Est GFR ( Amer) 30 L Est GFR (Non-Af Amer) 24 L BUN/Creatinine Ratio 30.9 Glucose 225 H Calcium 9.5 Discharge Plan Discharge Disposition: Xfer SNF Condition: Fair Discharge Medications: New acetaminophen [Tylenol] 325 mg Tablet 650 mg PO Q6H PRN (Reason: Pain) Qty: 0 0RF torsemide 20 mg Tablet 20 mg PO QD Qty: 0 0RF polyethylene glycol 3350 17 gram Powder In Packet 17 g PO BID PRN (Reason: Constipation) Qty: 30 0RF sennosides-docusate sodium [Senna Plus] 8.6-50 mg Tablet 2 tab PO QD Qty: 0 0RF amlodipine 5 mg Tablet 5 mg PO QD Qty: 0 0RF aspirin 81 mg Tablet,Delayed Release (Dr/Ec) 81 mg PO QD Qty: 0 0RF docusate sodium 100 mg Capsule 100 mg PO BID Qty: 0 0RF escitalopram oxalate 10 mg Tablet 20 mg PO DAILY Qty: 0 0RF pregabalin 50 mg Capsule 50 mg PO BID Qty: 20 0RF Melatonin 6 mg PO HS Qty: 0 0RF metoprolol succinate [Toprol XL] 25 mg tablet extended release 24 hr 25 mg PO DAILY Qty: 30 1RF Continued donepezil 5 mg tablet 5 mg PO .qhs allopurinol 100 mg tablet 100 mg PO QDAY pravastatin 10 mg tablet 10 mg PO QDAY vitamin B12 100 mcg tablet 1 tab PO DAILY esomeprazole magnesium 20 mg capsule,delayed release(DR/EC) 20 mg PO Q24H levothyroxine 50 mcg tablet 50 mcg PO QAM buprenorphine 20 mcg/hour patch weekly 1 patch transdermal Q7D Qty: 1 0RF Discontinued risperidone 0.25 mg tablet 0.5 mg PO .QHS cyclobenzaprine 10 mg tablet 10 mg PO .qhs escitalopram oxalate 20 mg tablet 20 mg PO BID metformin 500 mg tablet 500 mg PO DAILY gabapentin 300 mg Capsule 300 mg PO Q8H Qty: 90 3RF spironolactone 25 mg tablet 25 mg PO DAILY atenolol 25 mg tablet 12.5 mg PO DAILY Print Language: Luxembourgish Activity Restrictions/Additional Instructions: I may not have addressed or treated all of your medical illnesses or the abnormal blood work or imaging studies during this hospitalization. Please ask your primary care provider to obtain [facility] records entirely to follow up on all of the abnormal physical, laboratory, and imaging findings that I have not addressed. Please return back to the emergency room or seek medical attention if your symptoms worsen or return. Discharging you from [facility] does not mean that your medical care ends here and now. You may still need additional monitoring, work up, investigation, and treatment plan to be handled from this point on by out patient providers including your primary care provider and specialists. For any medication question, please contact your retail pharmacist or your primary care provider. Thank you. [employer]/Weight Inspector Instructions: Discharge to [facility] Forms: Portal Instructions
[2025-06-29 11:37] VITALS: BP 134/82; PULSE 96; TEMP 36.6; O2SAT 93
--- NOTE | 2025-06-29 11:57 | SWNOTE1 ---
Pt is all set to go to [facility]. [facility] called and set up trips, family can't transport and [facility] does not have transport today. Trips will be here between 3:15-3:45. TONEY faxed over dc med rec and dc summary to the [facility]. TONEY called and let pt's daughter Divya, pt's nurse, and Janette at [facility] of time. TONEY complete HENS 7000 online as well. TONEY took packet to med/surge floor.
== END 2025-06-29 15:17 ==
LOC: ER 18:57 → MS 19:56
PROVIDERS: Admitting Provider Internal Medicine; Emergency Provider Emergency Medicine; PCP Nurse Practitioner Family; Visit Provider Internal Medicine
DX: G95.89 Other specified diseases of spinal cord (principal); K56.7 Ileus, unspecified; M48.02 Spinal stenosis, cervical region; R53.1 Weakness; T40.2X5A Adverse effect of other opioids, initial encounter; K56.41 Fecal impaction; E87.5 Hyperkalemia; Z79.84 Long term (current) use of oral hypoglycemic drugs; N18.30 Chronic kidney disease, stage 3 unspecified; E11.22 Type 2 diabetes mellitus with diabetic chronic kidney disease; E03.9 Hypothyroidism, unspecified; Z79.82 Long term (current) use of aspirin; Z79.899 Other long term (current) drug therapy; Z87.440 Personal history of urinary (tract) infections; E11.51 Type 2 diabetes mellitus with diabetic peripheral angiopathy without gangrene; Z90.49 Acquired absence of other specified parts of digestive tract; Z90.710 Acquired absence of both cervix and uterus; Z87.891 Personal history of nicotine dependence; F03.90 Unspecified dementia, unspecified severity, without behavioral disturbance, psychotic disturbance, mood disturbance, and anxiety; Z79.890 Hormone replacement therapy; E66.01 Morbid (severe) obesity due to excess calories; N76.0 Acute vaginitis; Z68.31 Body mass index [BMI] 31.0-31.9, adult; M79.606 Pain in leg, unspecified; R60.0 Localized edema
CPT/HCPCS: 36415; 70450; 71045; 74018; 74176; 80048; 80053; 81001; 83605; 84484; 85025; 85027; 93970; 96372; 97110; 97163; 97165; 97530; 97535; 99285; G0378; J1100; J2212; J8540

== ENCOUNTER 2025-07-08 11:10 | Inpatient (IN) | payer MEDICARE, SELFPAY ==
--- OUTSIDE RECORDS SUMMARY | 2025-05-24 10:21 | XMS_ITS ---
Author Organization The [facility] in [place] Address [address] [place] [address] Care Team Providers Care Field Service Engineer Name Role Phone Atiya Srivastava Primary Care Provider REASON FOR VISIT UTI Medications Medication SIG (Take, Route, Frequency, Duration) Notes Start Date End Date Status Cefdinir 300 MG one capsule Orally d aily for 7 days cr clearance 23 04/09/2025 Active Encounters Encounter Location Date Provider Diagnosis [address] [address] 05/24/2025 Atiya Srivastava Plan Of Treatment Medication Medication Name Sig Start Date Stop Date Notes Cefdinir 300 MG one capsule Orally d aily for 7 days 04/09/2025 cr clearance 23 Progress Notes * Dahlia REGALADO LDOB:01/1940 (84 yo F)Acc No.[id number]:05/24/2025 Patient: Nick Dahlia LYN :1940 A ge:84 Y S ex:Female Address:[address] [place] [address] * Refills Refill Cefdinir Capsule, 300 MG, Orally, 7, one capsule, daily, 7 days, Refills=0 Subjective: * Chief Complaints: * U TI * Medical History: * Surgical History: * Hospitalization/Major Diagno stic Procedure: * Medications: Objective: * Vitals: * Physical Examination: Assessment: Plan: * Treatment: * Procedure Codes: * true * Date: Generated for Shyla larson/Evette/Evans on: 0 07/12/2025 12:42 AM EDT
--- OUTSIDE RECORDS SUMMARY | 2025-05-28 08:58 | XMS_ITS ---
Author Organization The [facility] in [place] Address [address] [place] [address] Care Team Providers Care Major Account Representative Name Role Phone Atiya Srivastava Primary Care Provider REASON FOR VISIT UA Encounters Encounter Location Date Provider Diagnosis [address] [place] [address] 05/28/2025 Atiya Srivastava UTI (urinary tract infection) N39.0 Assessments Encounter Date Diagnosis (ICD Code) Assessment Notes Treatment Notes Treatment Clinical Notes Section Notes 05/28/2025 UTI (urinary tract infection) (ICD-10 - N39.0) Plan Of Treatment Pending Test Test Name Order Date UA (URINALYSIS, COMPLETE) 05/28/2025 Urine Culture 05/28/2025 Progress Notes * Dahlia REGALADO LDOB:01/1940 (84 yo F)Acc No.[id number]:05/28/2025 Patient: iNck Dahlia LYN :1940 A ge:84 Y S ex:Female Address:[address] [place] [address] Subjective: * Chief Complaints: * U A * Medical History: * Surgical History: * Hospitalization/Major Diagno stic Procedure: * Medications: Objective: * Vitals: * Physical Examination: Assessment: * Assessment: 1. U TI (urinary tract infection) - N39.0 (Primary) Plan: * Treatment: * Procedure Codes: * true * Date: Generated for Shyla larson/Evette/Evans on: 0 07/12/2025 12:43 AM EDT
--- OUTSIDE RECORDS SUMMARY | 2025-06-15 05:54 | XMS_ITS ---
Author Organization The [facility] in [place] Address [address] [place] [address] Care Team Providers Care Gear Lapping Machine Operator Name Role Phone Atiya Srivastava Primary Care Provider [phone] REASON FOR VISIT UA Medications Medication SIG (Take, Route, Fr equency, Duration) Notes Start Date End Date Status levoFLOXacin 250 MG 1 tablet Orally Once a day for 5 days 06/15/2025 Active Encounters Encounter Location Date Provider Diagnosis [address] [address] 06/15/2025 Atiya Srivastava Plan Of Treatment Medication Medication Name Sig Start Date Stop Date Notes levoFLOXacin 250 MG 1 tablet Orally Once a day for 5 days 06/15/2025 Progress Notes * Dahlia REGALADO LDOB:01/1940 (85 yo F)Acc No.[id number]:06/15/2025 Patient: Nick Dahlia LYN :1940 A ge:85 Y S ex:Female Address:[address] [place] [address] * Refills Start levoFLOXacin Tablet, 250 MG, [...]
--- OUTSIDE RECORDS SUMMARY | 2025-06-18 06:29 | XMS_ITS ---
Author Organization [facility] in [place] Address [address] [place] [address] Care Team Providers Care Hand Fur Cleaner Name Role Phone Atiya Srivastava Primary Care Provider REASON FOR VISIT urine cx Medications Medication SIG (Take, Route, Fr equency, Duration) Notes Start Date End Date Status levoFLOXacin 250 MG 1 tablet Orally Once a day for 5 days 06/15/2025 Active Encounters Encounter Location Date Provider Diagnosis [address] [place] [address] 06/18/2025 Atiya Srivastava Plan Of Treatment Medication Medication Name Sig Start Date Stop Date Notes levoFLOXacin 250 MG 1 tablet Orally Once a day for 5 days 06/15/2025 Progress Notes * Dahlia REGALADO LDOB:01/1940 (85 yo F)Acc No.[id number]:06/18/2025 Patient: Nick Dahlia LYN :1940 A ge:85 Y S ex:Female Address:[address] [place] [address] * Refills Refill levoFLOXacin Tablet, 250 MG, Orally, 5 Tablet, 1 tablet, Once a day, 5 days, Refills=0 * true * Date: Generated for Printi ng/Fakiersteng/eTransmitting on: 0 07/12/2025 12:42 AM EDT
--- OUTSIDE RECORDS SUMMARY | 2025-06-26 11:37 | XMS_ITS ---
Author Organization [facility] in [place] Address [address] [place] [address] Care Team Providers Care Ear Pull Machine Operator Name Role Phone Atiya Srivastava Primary Care Provider [phone] David Adkins Unavailable [phone] REASON FOR VISIT Surgeon Encounters Encounter Location Date Provider Diagnosis [facility] [address] [place] [address] 06/26/2025 David Adkins Plan Of Treatment No Information Progress Notes * Dahlia REGALADO LDOB:01/1940 (85 yo F)Acc No.[id number]:06/26/2025 Patient: Nick Dahlia LYN :1940 A ge:85 Y S ex:Female Address:[address] [place], [place] [address] * true * Date: Generated for Printi ng/Fakiersteng/eTransmitting on: 0 07/12/2025 12:42 AM EDT
[2025-07-08] VITALS (47 sets, daily range): BP systolic 84–139; BP diastolic 51–74; PULSE 72–87; TEMP 36.6–36.8; O2SAT 89–97; BMI 28.4
--- NOTE | 2025-07-08 11:19 | ECG_ITS ---
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 [employer]: : 1940 Requested By: [id number] Order Number: [id number] Reading MD: BJORN PRINCE Measurements Intervals [place] Rate: 85 P: -27 AK: 186 QRS: -47 QRSD: 132 T: 6 QT: 428 QTc: 470 Interpretive Statements 1100 Sinus rhythm 2450 Right bundle branch block 2630 Left anterior fascicular block Bifascicular Block 7300 Indeterminate axis 9150 abnormal ECG Compared to ECG 03/05/2025 16:49:25 Right bundle-branch block now present Left anterior fascicular block now present Indeterminate axis now present First degree AV block no longer present Incomplete right bundle-branch block no longer present Electronically Signed On 07-11-2025 13:35:26 EDT by BJORN PRINCE
--- NOTE | 2025-07-08 11:19 | CT_ITS ---
The [address] [address] Patient Name: VIDHYA REGALADO MRN: [id number] date: 1940 Sex: F Assigned Patient Location: ER Current Patient Location: Accession/Order Number: [id number] Exam Date: 07/08/2025 11:29 Report Date: 07/08/2025 11:55 At the request of: MACARIO BASS MD Procedure: CT stroke head/brain wo con CT stroke head/brain wo con 07/08/2025 11:47 AM SIGNS AND SYMPTOMS: ^new blurry vision and weakness TECHNIQUE:Multi-detector CT axial slices of the brain were obtained without IV contrast. CT was performed with one or more of the following dose reduction techniques: Automated exposure control, adjustment of the mA and/or kV according to patient size, or use of iterative reconstruction technique. COMPARISON: 06/26/2025 FINDINGS: There is no shift of the midline structures, acute intracranial bleeding, mass effects, or evidence of acute ischemia. The ventricular system is normal in size. The brainstem is within normal limits. There is gliosis and encephalomalacia in the left cerebellar hemisphere. This is consistent with a remote infarct. Periventricular white matter hypoattenuation is noted. There is a remote infarct in the left frontal periventricular white matter. There is age-related cortical atrophy. The visualized intraorbital contents, the visualized paranasal sinuses, and the infratemporal soft tissues show no acute abnormality. The osseous structures in the skull base and the calvarium show no abnormality. CT/CT stroke head/brain wo con IMPRESSION: No acute intrapelvic pathology. 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 Impression dictated by: Cheng Bartlett M.D. 07/08/2025 11:55 AM Dictation Location: [place] [address] Electronically authenticated by: [id number] Y Date: 07/08/2025 11:55
--- NOTE | 2025-07-08 11:20 | CT_ITS ---
The [address] [address] Patient Name: VIDHYA REGALADO MRN: [id number] date: 1940 Sex: F Assigned Patient Location: ER Current Patient Location: Accession/Order Number: [id number] Exam Date: 07/08/2025 11:30 Report Date: 07/08/2025 12:01 At the request of: MACARIO BASS MD Procedure: CT cervical spine wo con CT cervical spine wo con 07/08/2025 11:46 AM SIGN AND SYMPTOMS: ^left sided upper and lower extremity movement TECHNIQUE: Multi detector CT axial slices of the cervical spine were obtained without IV contrast. Volumetric acquisition sagittal, coronal, and 3-D reconstructions were performed and reviewed. CT was performed with one or more of the following dose reduction techniques: Automated exposure control, adjustment of the mA and/or kV according to patient size, or use of iterative reconstruction technique. COMPARISON: 05/15/2025 FINDINGS: There is preservation of the vertebral body heights. There is severe disc height loss at C4-C5, C5-6, and C6-C7. There is accompanying posterior decompression. There is facet hypertrophy throughout. No fractures or dislocations are seen. The alignment of the cervical spine is normal. Degenerative changes are noted at the craniocervical junction and atlantoaxial joint. There is pseudoarticulation of the posterior arch of C1 and the posterior elements of C2. The prevertebral soft tissues are within normal limits. Calcified plaque is noted in the carotid bifurcations. The paraspinous soft tissues are within normal limits. The lung apices are unremarkable. CT/CT cervical spine wo con IMPRESSION: No acute bony injury. Severe degenerative and postoperative changes are noted as above. Impression dictated by: Cheng Bartlett M.D. 07/08/2025 12:01 PM Dictation Location: [place] [address] Electronically authenticated by: [id number] Y Date: 07/08/2025 12:01
--- NOTE | 2025-07-08 11:21 | PC.NURSE ---
pupils are round and equal, unreactive to lihjy. pt reports having cataract surgery to bilat eyes.
--- OUTSIDE RECORDS SUMMARY | 2025-07-08 11:35 | XMS_ITS | Encounter Summary ---
Author Organization [facility] Address [id number] [address] [place] [address] Care Team Providers Care Tutorial Laboratory Supervisor Name Role Phone Provider, Colt THOMAS Primary Care Provider Un available Encounter Details Date Type Department Care Team (Late st Contact Info) Description 07/08/2025 11:35 AM EDT Ancillary Procedure [facility] [address] [place] [address] Pain Social History Tobacco Use Types Packs/Day Years [...] Procedure Name Priority Date/Time Associated Diagnosis Comments CT BRAIN WO CONT STROKE ALERT STAT Reading 07/08/2025 11:35 AM EDT Pain documented in this encounter Results * CT brain without contrast stroke alert (07/08/2025 11:35 AM EDT) us Scanning Provider External IMG CT ORDERABLES Fin al Result documented in this encounter Visit Diagnoses Diagnosis Pain Generalized pain documented in this encounter Care Teams Tutorial Laboratory Supervisor Relationship Specialty Start Date End Date ProviderColt MD PCP - General 01/05/13 documented as of this encounter
--- OUTSIDE RECORDS SUMMARY | 2025-07-08 11:40 | XMS_ITS | Encounter Summary ---
Author Organization [facility] Address [facility]-[id number] [address] [place] [address] Care Team Providers Care Rose Grader Name Role Phone Provider, Colt THOMAS Primary Care Provider Un available Encounter Details Date Type Department Care Team (Late st Contact Info) Description 07/08/2025 11:40 AM EDT Ancillary Procedure [facility] [address] [place] [address] Pain Social History Tobacco Use [...] Name Priority Date/Time Associated Diagnosis Comments CT CERVICAL SPINE WO CONT Routine 07/08/2025 11:40 AM EDT Pain documented in this encounter Results * CT cervical spine without contrast (07/08/2025 11:40 AM EDT) us Scanning Provider External IMG CT ORDERABLES Fin al Result documented in this encounter Visit Diagnoses Diagnosis Pain Generalized pain documented in this encounter Care Teams Rose Grader Relationship Specialty Start Date End Date ProviderColt MD PCP - General 01/05/13 documented as of this encounter
--- OUTSIDE RECORDS SUMMARY | 2025-07-08 11:43 | XMS_ITS | CCD ---
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 Name Role Phone ABEBE, JIANLIN Unavailable Unavailable ABEBE, JIANLIN Unavailable Unavailable DURBIN, TAN Unavailable Unavailable DURBIN, TAN Unavailable Unavailable ABEBE, JIANLIN Unavailable Unavailable ABEBE, JIANLIN Unavailable Unavailable PAVLOCK, MAX ANAND Unavailable Unavailable PAVLOCK, MAX ANAND Unavailable Unavailable ABEBE, JIANLIN Unavailable Unavailable ABEBE, JIANLIN Unavailable Unavailable PAVLOCK, MAX ANAND Unavailable Unavailable PAVLOCK, MAX ANAND Unavailable Unavailable SC Unavailable Unavailable ABEBE, JIANLIN Unavailable Unavailable KAEL [...] Unavailable Kael Adkins MD Primary Care Provider [phone] ANNA KUMAR Attending Unavailable MD Kael Adkins Primary Care Provider [phone] DG Scott Attending Provider [phone] Kael Adkins MD Attending Provider Kael Adkins Admitting Unavailable Kael Adkins Attending Unavailable Kael Adkins Primary Care Unavailable Wendy Scott Admitting Unavailable Wendy Scott Attending Unavailable STACIA KELLER Attending Unavailable PROVIDER, CONVERSION Primary Care Unavailable Allergies Allergy Classification Reported Allergen(s) Allergy Type Date of Onset Reaction(s) Facility (5 sources) codeine Drug Allergy 12-28-19 13 AOF, Unknown Reaction [facility] Repository (1 source) Dust; Translations: [Dust] Propensity to adverse reactions (disorder) 12-28-19 13 [facility] Repository (3 sources) glycerin Drug Allergy 12-28-19 13 Unknown Reaction [facility] Repository (1 source) Grass pollen; Translations: [grass pollen] Propensity to adverse reactions (disorder) 12-28-19 13 The [facility] Repository (5 sources) Latex Drug allergy (disorder) 12-28-19 13 Unknown Reaction [facility] Repository (2 sources) meperidine Drug Allergy 12-28-19 13 AOF [facility] Repository (4 sources) mold extract; Translations: [Mold] Drug Allergy 12-28-19 13 Sneezing [facility] Repository (3 sources) nitrofurantoin Drug Allergy 12-23-19 16 [facility] Repository (1 source) sulfamethoxazole / trimethoprim Drug Allergy 12-28-19 13 [facility] Repository (2 sources) Desonide Drug Allergy 06-13-20 13 The [facility] Repository (2 sources) Glycerin Drug Allergy 06-13-20 13 The [facility] Repository (4 sources) Lidocaine Drug Allergy 06-13-20 13 Unknown Reaction The [facility] Repository (2 sources) Meperidine Drug Allergy 12-23-19 16 The [facility] Repository (2 sources) Sulfonamides (Antibiotic) Drug allergy (disorder) 12-23-19 16 The [facility] Repository (2 sources) Grass Pollen-[place], Standard Drug allergy (disorder) 06-13-20 13 The [facility] Repository (2 sources) Misc-ENV; Translations: [Misc-ENV] Propensity to adverse reactions (disorder) 06-13-20 13 [facility] Repository (3 sources) Meperidine; Translations: [meperidine] Drug Allergy 04-08-20 Confusion [facility] (3 sources) Sulfonamides (Antibiotic); Translations: [Sulfa (Sulfonamide Antibiotics)] Allergy to substance 04-08-[address] [facility] (3 sources) cat dander; Translations: [cat dander] Allergy to substance 04-08-20 Sneezing [facility] (3 sources) NSAIDS (Non-Steroidal Anti-Inflamma; Translations: [NSAIDS (Non-Steroidal Anti-Inflamma] Allergy to substance 04-08-[address] [facility] (1 source) Codeine Drug Allergy 04-08-20 [facility] Repository (1 source) Glycerin Drug Allergy 04-08-20 [facility] Repository (1 source) Latex Drug allergy (disorder) 04-08-20 [facility] Repository (1 source) Lidocaine Drug Allergy 04-08-20 [facility] Repository Medications Current Medications Medication Drug [...] 650 mg Supposi tory Discontinued 650 MG SC Q6H as needed for Fever May 10, [...] May 10, 2019 11:35am polyethylene glycol 3350 60658 mg powder for oral solution (2 sources) [...] 11:25am docusate sodium 50 mg / sennosides, [facility] 8.6 mg oral tablet (2 sources) Start: [...] disease (1 source) Atherosclerotic heart disease of [place] coronary artery without angina pectoris; Translations: [ATHSCL HEART DISEASE OF [place] CORONARY ARTERY W/O ANG PCTRS] Onset: 8 [...] 05-24-2018 Episodic Other aftercare (1 source) Other intermission coordinator (current) drug therapy; Translations: [OTHER WEIGHTS AND MEASURES INSPECTOR (CURRENT) DRUG THERAPY] Onset: 05-24-2018 Episodic Screening or history of mental health and substance abuse (1 source) Personal history of nicotine dependence; Translations: [PERSONAL HISTORY OF NICOTINE DEPENDENCE] Onset: 06-27-2018 Episodic Unclassified (2 sources) Unknown / UNK(Unknown) Onset: 05-24-2018 Results Test Name Value Interpretation Reference Range Facility URINALYSISon 06-14-2025 Bilirubin Ql (U) Negative Normal Negative [facility] Comment on above: Order Comment: Urine received without preservative. Delays in transport may affect results. Interpret with caution. A clinical correlation is recommended. Performed By: #### T HYR #### [facility] ([address] [address] VIR BLOOD/HGB Trace Abnormal Negative [facility] Comment on above: Order Comment: Urine received without preservative. Delays in transport may affect results. Interpret with caution. A clinical correlation is recommended. Performed By: #### T HYR #### [facility] ([address] [address] VIR Color (U) Yellow Normal Yellow [facility] Comment on above: Order Comment: Urine received without preservative. Delays in transport may affect results. Interpret with caution. A clinical correlation is recommended. Performed By: #### T HYR #### [facility] ([address] [address] VIR Glucose Ql (U) Negative Normal Negative, 250 mg/dL [facility] Comment on above: Order Comment: Urine received without preservative. Delays in transport may affect results. Interpret with caution. A clinical correlation is recommended. Performed By: #### T HYR #### [facility] ([address] [address] VIR Ketones Ql (U) Negative Normal Negative [facility] Comment on above: Order Comment: Urine received without preservative. Delays in transport may affect results. Interpret with caution. A clinical correlation is recommended. Performed By: #### T HYR #### [facility] ([address] [address] VIR Leukocyte esterase Test strip Ql (U) Moderate Abnormal Negative [facility] Comment on above: Order Comment: Urine received without preservative. Delays in transport may affect results. Interpret with caution. A clinical correlation is recommended. Performed By: #### T HYR #### [facility] ([address] [address] VIR Nitrite Ql (U) Positive Abnormal Negative [facility] Comment on above: Order Comment: Urine received without preservative. Delays in transport may affect results. Interpret with caution. A clinical correlation is recommended. Performed By: #### T HYR #### [facility] ([address] [address] VIR PH,URINE 6.0 Normal 5.0-8.[address] [facility] Comment on above: Order Comment: Urine received without preservative. Delays in transport may affect results. Interpret with caution. A clinical correlation is recommended. Performed By: #### T HYR #### [facility] ([address] [address] VIR Protein Ql (U) Trace Abnormal Negative [facility] Comment on above: Order Comment: Urine received without preservative. Delays in transport may affect results. Interpret with caution. A clinical correlation is recommended. Performed By: #### T HYR #### [facility] ([address] [address] VIR R.B.CELLS 3 Normal 0-[address] [facility] Comment on above: Order Comment: Urine received without preservative. Delays in transport may affect results. Interpret with caution. A clinical correlation is recommended. Performed By: #### T HYR #### [facility] ([address] [address] VIR Specific gravity (U) [Rel density] 1.025 Normal 1.003-1.[address] [facility] Comment on above: Order Comment: Urine received without preservative. Delays in transport may affect results. Interpret with caution. A clinical correlation is recommended. Performed By: #### T HYR #### [facility] ([address] [address] VIR SQUAMOUS EPITHELIUM 2 Normal 0-[address] [facility] Comment on above: Order Comment: Urine received without preservative. Delays in transport may affect results. Interpret with caution. A clinical correlation is recommended. Performed By: #### T HYR #### [facility] ([address] [address] VIR TURBIDITY Cloudy Abnormal Clear [facility] Comment on above: Order Comment: Urine received without preservative. Delays in transport may affect results. Interpret with caution. A clinical correlation is recommended. Performed By: #### T HYR #### [facility] ([address] [address] VIR UROBILINOGEN 0.2 eu/dL Normal 0.2 eu/dL, 1.0 eu/dL [facility] Comment on above: Order Comment: Urine received without preservative. Delays in transport may affect results. Interpret with caution. A clinical correlation is recommended. Performed By: #### T HYR #### [facility] ([address] [address] VIR W.B.CELLS >^100 High 0-[address] [facility] Comment on above: Order Comment: Urine received without preservative. Delays in transport may affect results. Interpret with caution. A clinical correlation is recommended. Performed By: #### T HYR #### [facility] ([address] [address] VIR URINE CULTUREon 06-14-2025 Bacteria identified Cx [...] Trimethoprim + Sulfamethoxazole S <=^1.0 F Susceptible [facility] Comment on above: Order Comment: Along with 10,000 to 50,000 CFU/mL Normal Urogenital Dania.Urine received without preservative - delays in transport may affect results. Interpret with caution and clinical correlation is recommended. Performed By: #### T HYR #### [facility] ([address] [place] [address] VIR URINALYSISon 05-23-2025 Bilirubin Ql (U) Negative Normal Negative [facility] Comment on above: Performed By: #### T HYR #### [facility] ([address] [place] [address] VIR BLOOD/HGB Negative Normal Negative [facility] Comment on above: Performed By: #### T HYR #### [facility] ([address] [place] [address] VIR Color (U) Yellow Normal Yellow, Colorless [facility] Comment on above: Performed By: #### T HYR #### [facility] ([address] [place] [address] VIR Glucose Ql (U) Negative Normal Negative, 250 mg/dL [facility] Comment on above: Performed By: #### T HYR #### [facility] ([address] [place] [address] VIR Ketones Ql (U) Negative Normal Negative [facility] Comment on above: Performed By: #### T HYR #### [facility] ([address] [place] [address] VIR Leukocyte esterase Test strip Ql (U) Moderate Abnormal Negative [facility] Comment on above: Performed By: #### T HYR #### [facility] ([facility]) [address] [place] [address] VIR Nitrite Ql (U) Positive Abnormal Negative [facility] Comment on above: Performed By: #### T HYR #### [facility] ([facility]) [address] [place] [address] [place] [address] VIR PH,URINE 6.0 Normal 5.0-8.[address] [facility] Comment on above: Performed By: #### T HYR #### [facility] ([address] [place] [address] VIR Protein Ql (U) Trace Abnormal Negative [facility] Comment on above: Performed By: #### T HYR #### [facility] ([address] [place] [address] VIR R.B.CELLS 3 Normal 0-[address] [facility] Comment on above: Performed By: #### T HYR #### [facility] ([address] [place] [address] VIR Specific gravity (U) [Rel density] 1.020 Normal 1.003-1.[address] [facility] Comment on above: Performed By: #### T HYR #### [facility] ([address] [place] [address] VIR SQUAMOUS EPITHELIUM 1 Normal 0-[address] [facility] Comment on above: Performed By: #### T HYR #### [facility] ([place] [address] [place] [address] VIR TURBIDITY Hazy Abnormal Clear [facility] Comment on above: Performed By: #### T HYR #### [facility] ([address] [place] [address] VIR UROBILINOGEN 0.2 eu/dL Normal 0.2 eu/dL, 1.0 eu/dL [facility] Comment on above: Performed By: #### T HYR #### [facility] ([facility]) [address] [place] [address] VIR W.B.CELLS 90 High 0-[address] [facility] Comment on above: Performed By: #### T HYR #### [facility] ([facility]) [address] [place] [address] VIR URINE CULTUREon 05-23-2025 Bacteria identified Cx [...] Trimethoprim + Sulfamethoxazole S <=^1.0 F Susceptible [facility] Comment on above: Performed By: #### T HYR #### [facility] ([address] [address] VIR URINALYSISon 05-01-2025 Bilirubin Ql (U) Negative Normal Negative [facility] Comment on above: Order Comment: Urine received without preservative. Delays in transport may affect results. Interpret with caution. A clinical correlation is recommended. Performed By: #### U A #### [facility] ([facility]) [address] [place] [address] VIR BLOOD/HGB Negative Normal Negative [facility] Comment on above: Order Comment: Urine received without preservative. Delays in transport may affect results. Interpret with caution. A clinical correlation is recommended. Performed By: #### U A #### [facility] ([address] [place] [address] VIR Color (U) Yellow Normal Yellow, Colorless [facility] Comment on above: Order Comment: Urine received without preservative. Delays in transport may affect results. Interpret with caution. A clinical correlation is recommended. Performed By: #### U A #### [facility] ([address] [place] [address] VIR Glucose Ql (U) Negative Normal Negative, 250 mg/dL [facility] Comment on above: Order Comment: Urine received without preservative. Delays in transport may affect results. Interpret with caution. A clinical correlation is recommended. Performed By: #### U A #### [facility] ([address] [place] [address] VIR Ketones Ql (U) Negative Normal Negative [facility] Comment on above: Order Comment: Urine received without preservative. Delays in transport may affect results. Interpret with caution. A clinical correlation is recommended. Performed By: #### U A #### [address] [place] [address] VIR Leukocyte esterase Test strip Ql (U) Trace Abnormal Negative [facility] Comment on above: Order Comment: Urine received without preservative. Delays in transport may affect results. Interpret with caution. A clinical correlation is recommended. Performed By: #### U A #### [facility] ([address] [place] [address] VIR Nitrite Ql (U) Negative Normal Negative [facility] Comment on above: Order Comment: Urine received without preservative. Delays in transport may affect results. Interpret with caution. A clinical correlation is recommended. Performed By: #### U A #### [address] [place] [address] VIR PH,URINE 6.0 Normal 5.0-8.[address] [facility] Comment on above: Order Comment: Urine received without preservative. Delays in transport may affect results. Interpret with caution. A clinical correlation is recommended. Performed By: #### U A #### [facility] ([address] [address] VIR Protein Ql (U) Negative Normal Negative [facility] Comment on above: Order Comment: Urine received without preservative. Delays in transport may affect results. Interpret with caution. A clinical correlation is recommended. Performed By: #### U A #### [facility] ([address] [address] VIR Specific gravity (U) [Rel density] <=^1.005 Normal 1.003-1.[address] [facility] Comment on above: Order Comment: Urine received without preservative. Delays in transport may affect results. Interpret with caution. A clinical correlation is recommended. Performed By: #### U A #### [facility] ([address] [address] VIR SQUAMOUS EPITHELIUM 1 Normal 0-[address] [facility] Comment on above: Order Comment: Urine received without preservative. Delays in transport may affect results. Interpret with caution. A clinical correlation is recommended. Performed By: #### U A #### [facility] ([address] [address] VIR TURBIDITY Clear Normal Clear [facility] Comment on above: Order Comment: Urine received without preservative. Delays in transport may affect results. Interpret with caution. A clinical correlation is recommended. Performed By: #### U A #### [facility] ([address] [address] VIR UROBILINOGEN 0.2 eu/dL Normal 0.2 eu/dL, 1.0 eu/dL [facility] Comment on above: Order Comment: Urine received without preservative. Delays in transport may affect results. Interpret with caution. A clinical correlation is recommended. Performed By: #### U A #### [facility] ([address] [address] VIR W.B.CELLS 20 High 0-[address] [facility] Comment on above: Order Comment: Urine received without preservative. Delays in transport may affect results. Interpret with caution. A clinical correlation is recommended. Performed By: #### U A #### [facility] ([address] [place] [address] VIR URINE CULTUREon 05-01-2025 Bacteria identified Cx [...] Trimethoprim + Sulfamethoxazole S <=^1.0 F Susceptible [facility] Comment on above: Order Comment: Urine received without preservative - delays in transport may affect results. Interpret with caution and clinical correlation is recommended. Performed By: #### T HYR #### [facility] ([address] [place] [address] VIR BASIC METABOLIC PANELon Anion gap [Moles/Vol] 12 mmol/L Normal 5-[address] [facility] Comment on above: Performed By: #### B MP #### [facility] ([address] [address] VIR Calcium [Mass/Vol] 9.4 mg/dL Normal 8.5-10.5 [facility] Comment on above: Performed By: #### B MP #### [facility] ([address] [place] [address] VIR Chloride [Moles/Vol] 102 mmol/L Normal 98-[address] [facility] Comment on above: Performed By: #### B MP #### [facility] ([address] [place] [address] VIR CO2 [Moles/Vol] 21 mmol/L Low 22-[address] [facility] Comment on above: Performed By: #### B MP #### [facility] ([address] [place] [address] VIR Creatinine [Mass/Vol] 2.29 mg/dL High 0.40-1.[address] [facility] Comment on above: Result Comment: METH OD TRACEABLE TO IDMS STANDARD Performed By: #### B MP #### [facility] ([address] [address] VIR GFR/1.73 sq M.predicted among non-blacks MDRD (S/P/Bld) [Vol rate/Area] 20 mL/min/{1.73_m2} Low >=[address] [facility] Comment on above: Result Comment: eGFR not reported due to non-numeric value for Creatinine. Reported eGFR is based on the CKD-EPI 2021 equation that does not use a race coefficient. Performed By: #### B MP #### [facility] ([address] [place] [address] VIR Glucose [Mass/Vol] 188 mg/dL High 65-99 [facility] Comment on above: Performed By: #### B MP #### [facility] ([address] [place] [address] VIR Potassium [Moles/Vol] 4.9 mmol/L Normal 3.5-5.[address] [facility] Comment on above: Performed By: #### B MP #### [facility]) [address] [place] [address]. [place] [address] VIR Sodium [Moles/Vol] 135 mmol/L Normal 134-146 [facility] Comment on above: Performed By: #### B MP #### [facility] ([facility]) [address] [place] [address]. [place] [address] VIR Urea nitrogen [Mass/Vol] 29 mg/dL High 5-[address] [facility] Comment on above: Performed By: #### B MP #### [facility] ([facility]) [address] [place] [address] VIR Urine Cultureon 03-07-2025 Bacteria identified Cx Nom (U) 25,000 colonies/ml mixed bacterial skin contaminants 2 Days PERFORMED BY: [place] [address] PATHOLOGIST GEAR CHANGER DEBORAH VIZCAINO M.D. Normal [facility] Comment on above: Performed By: #### C UU #### [address] CBC WITH AUTO DIFFERENTIALon 03-05-2025 BASOPHILS ABSOLUTE COUNT (10*3/UL) BY AUTOMATED COUNT 0.0 10*3/uL Normal [facility] Comment on above: Performed By: #### C BCA #### [facility] ([facility]) [address] [place] [address] VIR BASOPHILS RELATIVE PERCENT BY AUTOMATED COUNT 0.7 % Normal [facility] Comment on above: Performed By: #### C BCA #### [facility] ([facility]) [address] [place] [address]. [place] [address] VIR CELLAVISION DIFFERENTIAL TYPE AUTOMATED DIFFERENTIAL Normal [facility] Comment on above: Performed By: #### C BCA #### [facility] ([facility]) [address] [place] [address] VIR Eosinophils (Bld) [#/Vol] 0.2 10*3/uL Normal [facility] Comment on above: Performed By: #### C BCA #### [facility] ([address] [address] VIR EOSINOPHILS RELATIVE PERCENT BY AUTOMATED COUNT 2.5 % Normal [facility] Comment on above: Performed By: #### C BCA #### [facility] ([address] [address] VIR Erythrocyte distribution width (RBC) [Ratio] 15.8 % High 11.5-[address] [facility] Comment on above: Performed By: #### C BCA #### [facility] ([address] [address] VIR Hematocrit (Bld) [Volume fraction] 34.8 % Low 35-[address] [facility] Comment on above: Performed By: #### C BCA #### [facility] ([address] [address] VIR Hemoglobin (Bld) [Mass/Vol] 11.4 g/dL Low 11.7-15.[address] [facility] Comment on above: Performed By: #### C BCA #### [facility] ([address] [address] VIR LYMPHOCYTES ABSOLUTE COUNT (10*3/UL) BY AUTOMATED COUNT 2.0 10*3/uL Normal [facility] Comment on above: Performed By: #### C BCA #### [facility] ([address] [address] VIR LYMPHOCYTES RELATIVE PERCENT BY AUTOMATED COUNT 30.3 % Normal [facility] Comment on above: Performed By: #### C BCA #### [facility] ([address] [address] VIR MCH (RBC) [Entitic mass] 28.6 pg Normal 27-[address] [facility] Comment on above: Performed By: #### C BCA #### [facility] ([address] [place] [address] VIR MCHC (RBC) [Mass/Vol] 32.7 g/dL Normal 32-[address] [facility] Comment on above: Performed By: #### C BCA #### [facility] ([address] [place] [address] VIR MCV (RBC) [Entitic vol] 88 fL Normal 80-[address] [facility] Comment on above: Performed By: #### C BCA #### [facility] ([address] [place] [address] VIR MONOCYTES ABSOLUTE COUNT (10*3/UL) BY AUTOMATED COUNT 0.6 10*3/uL Normal [facility] Comment on above: Performed By: #### C BCA #### [facility] ([address] [place] [address] VIR MONOCYTES RELATIVE PERCENT BY AUTOMATED COUNT 8.9 % Normal [facility] Comment on above: Performed By: #### C BCA #### [facility] ([address] [place] [address] VIR NEUTROPHILS ABSOLUTE COUNT BY AUTOMATED COUNT 3.8 10*3/uL Normal [facility] Comment on above: Performed By: #### C BCA #### [facility] ([address] [place] [address] VIR NEUTROPHILS RELATIVE PERCENT BY AUTOMATED COUNT 57.6 % Normal [facility] Comment on above: Performed By: #### C BCA #### [facility] ([address] [place] [address] VIR Platelet mean volume (Bld) [Entitic vol] 9.0 fL Normal 7-[address] [facility] Comment on above: Performed By: #### C BCA #### [facility] ([address] [place] [address] VIR Platelets (Bld) [#/Vol] 236 10*3/uL Normal 150-[address] [facility] Comment on above: Performed By: #### C BCA #### [facility] ([address] [place] [address] VIR RBC COUNT 3.98 X10E12/L Normal 3.8-5.[address] [facility] Comment on above: Performed By: #### C BCA #### [facility] ([address] [place] [address] VIR WBC (Bld) [#/Vol] 6.6 10*3/uL Normal 4-11 [facility] Comment on above: Performed By: #### C BCA #### [facility] ([address] [place] [address] VIR COMPREHENSIVE METABOLIC PANE Elmer 03-05-2025 Albumin [Mass/Vol] 4.1 g/dL Normal 3.2-5.3 [facility] Comment on above: Performed By: #### C MP #### [facility] ([address] [place] [address] VIR ALP [Catalytic activity/Vol] 76 U/L Normal 39-[address] [facility] Comment on above: Performed By: #### C MP #### [facility] ([address] [place] [address] VIR ALT [Catalytic activity/Vol] 18 U/L Normal <=[address] [facility] Comment on above: Performed By: #### C MP #### [facility] ([address] [place] [address] VIR Anion gap [Moles/Vol] 8 mmol/L Normal 5-[address] [facility] Comment on above: Performed By: #### C MP #### [facility] ([address] [place] [address] VIR AST [Catalytic activity/Vol] 21 U/L Normal <=[address] [facility] Comment on above: Performed By: #### C MP #### [facility] ([address] [place] [address] VIR Bilirubin [Mass/Vol] 0.6 mg/dL Normal 0.3-1.[address] [facility] Comment on above: Performed By: #### C MP #### [facility] ([address] [place] [address] VIR Calcium [Mass/Vol] 9.4 mg/dL Normal 8.5-10.5 [facility] Comment on above: Performed By: #### C MP #### [facility] ([address] [place] [address] VIR Chloride [Moles/Vol] 103 mmol/L Normal 98-[address] [facility] Comment on above: Performed By: #### C MP #### [facility] ([address] [place] [address] VIR CO2 [Moles/Vol] 24 mmol/L Normal 22-[address] [facility] Comment on above: Performed By: #### C MP #### [facility] ([address] [place] [address] VIR Creatinine [Mass/Vol] 2.14 mg/dL High 0.40-1.[address] [facility] Comment on above: Result Comment: METH OD TRACEABLE TO IDMS STANDARD Performed By: #### C MP #### [facility] ([address] [place] [address] VIR GFR/1.73 sq M.predicted among non-blacks MDRD (S/P/Bld) [Vol rate/Area] 22 mL/min/{1.73_m2} Low >=[address] [facility] Comment on above: Result Comment: Repo rted eGFR is based on the CKD-EPI 2020 equation that does not use a race coefficient. Performed By: #### C MP #### [facility] ([facility]) [address] [place] [address] VIR Glucose [Mass/Vol] 102 mg/dL High 65-99 [facility] Comment on above: Performed By: #### C MP #### [facility] ([facility]) [address] [place] [address] VIR Potassium [Moles/Vol] 6.3 mmol/L Critically high 3.5-5.[address] [facility] Comment on above: Performed By: #### C MP #### [facility] ([address] [place] [address] VIR Protein [Mass/Vol] 7.0 g/dL Normal 6.0-8.0 [facility] Comment on above: Performed By: #### C MP #### [facility] ([address] [place] [address] VIR Sodium [Moles/Vol] 135 mmol/L Normal 134-146 [facility] Comment on above: Performed By: #### C MP #### [facility] ([address] [place] [address] VIR Urea nitrogen [Mass/Vol] 30 mg/dL High 5-[address] [facility] Comment on above: Performed By: #### C MP #### [facility] ([address] [place] [address] VIR HEMOGLOBIN A1Con 03-05-2025 Glucose [Mass/Vol] 123 mg/dL Normal [facility] Comment on above: Performed By: #### H A1C #### [facility] ([facility]) [address] [place] [address] VIR HbA1c (Bld) [Mass fraction] 5.9 % High 4.4-5.[address] [facility] Comment on above: Result Comment: ADA Guidelines Result HgbA1c Normal : less than 5.7 % Prediabetes : 5.7 % to 6.4 % Diabetes : > 6.4 % Use with caution in patients with abnormal hemoglobin variants as the half-life of red blood cells and in vivo glycation rates are affected. Performed By: #### H A1C #### [facility] ([facility]) [address] [place] [address] VIR INSULINon 03-05-2025 INSULIN 19.48 uIU/mL Normal 1.00-23.[address] [facility] Comment on above: Order Comment: Ref. range is for FASTING NON-DIABETIC POPULATION. Performed By: #### I NSL #### [facility] ([facility]) [address] [place] [address] VIR IRON AND TIBCon 03-05-2025 Iron [Mass/Vol] 48 ug/dL Low 50-[address] [facility] Comment on above: Performed By: #### F EPR #### [facility] ([facility]) [address] [place] [address] VIR IRON BINDING 515 ug/dL High 250-[address] [facility] Comment on above: Performed By: #### F EPR #### [facility] ([facility]) [address] [place] [address] VIR IRON SATURATION 9 % SATURATION Low 15-50 [facility] Comment on above: Performed By: #### F EPR #### [facility] ([facility]) [address] [place] [address] VIR Transferrin [Mass/Vol] 368 mg/dL High 168-[address] [facility] Comment on above: Performed By: #### F EPR #### [facility] ([facility]) [address] [place] [address] VIR LIPID PROFILEon 03-05-2025 Cholesterol [Mass/Vol] 186 mg/dL Normal 150-[address] [facility] Comment on above: Performed By: #### L IPR #### [facility] ([facility]) [address] [place] [address] VIR Cholesterol in HDL [Mass/Vol] 43 mg/dL Normal >[address] [facility] Comment on above: Result Comment: HDL <40 mg/dL - High Risk HDL > or = 40mg/dL- Desirable HDL >60 mg/dL - Negative Risk Performed By: #### L IPR #### [facility] ([facility]) [address] [place] [address] VIR Cholesterol in LDL [Mass/Vol] 100 mg/dL Normal <[address] [facility] Comment on above: Result Comment: LDL <100 mg/dL - Desirable LDL >160 mg/dL - High Risk Performed By: #### L IPR #### [facility] ([facility]) [address] [place] [address] VIR CHOLESTEROL:HDL 4.3 Normal 1.0-5.[address] [facility] Comment on above: Performed By: #### L IPR #### [facility] ([facility]) [address] [place] [address] VIR Triglyceride [Mass/Vol] 217 mg/dL High 27-[address] [facility] Comment on above: Performed By: #### L IPR #### [facility] ([facility]) [address] [place] [address] VIR VERY LOW LIPOPROTEIN 43 mg/dL High 0-[address] [facility] Comment on above: Performed By: #### L IPR #### [facility] ([facility]) [address] [place] [address] VIR THYROID PROFILE INCLUDES TSH FT4on 03-05-2025 Free T4 [Mass/Vol] 0.93 ng/dL Normal 0.61-1.60 [facility] Comment on above: Performed By: #### T HYR #### [facility] ([facility]) [address] [place], [place] [address] [address] VIR TSH 2.21 uIU/mL Normal 0.49-4.[address] [facility] Comment on above: Performed By: #### T HYR #### [facility] ([facility]) [address] [facility] [place] [address] VIR VITAMIN D 25 HYDROXYon 03-05 VITAMIN D 25 HYD TOT 35.4 ng/mL Normal 30.0-100.[address] [facility] Comment on above: Order Comment: Vitam in D status 25 [place] Vitamin D Deficiency <20 ng/mL Insufficiency 20-29 ng/mL Sufficiency 30-100 ng/mL Toxicity >100 ng/mL NOTE: A pediatric reference range has not been established by the clay miller of this kit. The [employer] recommends a Vitamin D level of = or >20ng/mL in infants and children. Performed By: #### V ITD #### [facility] ([facility]) [address] [place] [address] VIR CULTURE URINEon 01-22-2023 CULTURE URINE Culture Observations : NO GROWTH. Normal [facility] Comment on above: Performed By: #### U A #### [facility] [address] [place] [address] Dr. Noreen Castro UA RANDOM W/MICROSCOPICon BACTERIA NONE SEEN Normal NONE SEEN [facility] Comment on above: Performed By: #### U AMIC #### [facility] [address] [address] [address] Noreen Castro Bilirubin Ql (U) Negative Normal NEGATIVE [facility] Comment on above: Performed By: #### U AMIC #### [facility] [address] [address] [address] Noreen Castro CAST NONE SEEN Normal NONE SEEN [facility] Comment on above: Performed By: #### U AMIC #### [facility] [address] [address] [address] Noreen Castro Clarity (U) SL CLOUDY Abnormal CLEAR [facility] Comment on above: Performed By: #### U AMIC #### [facility] [address] [address] [address] Noreen Castro Color (U) LT. YELLOW Normal YELLOW [facility] Comment on above: Performed By: #### U AMIC #### [facility] [address] [address] [address] Noreen Castro Crystals LM Nom (Urine sed) NONE SEEN Normal NONE SEEN [facility] Comment on above: Performed By: #### U AMIC #### [facility] [address] [address] [address] Noreen Castro Epithelial cells LM Ql (Urine sed) FEW Abnormal NONE SEEN /RARE [facility] Comment on above: Performed By: #### U AMIC #### [facility] [address] [place] [address] Dr. Noreen Castro Glucose Ql (U) Negative Normal NEGATIVE [facility] Comment on above: Performed By: #### U AMIC #### [facility] [address] [address] [address] Noreen Castro Hemoglobin Ql (U) Negative Normal NEGATIVE [facility] Comment on above: Performed By: #### U AMIC #### [facility] [address] [address] [address] Noreen Castro Ketones Ql (U) Negative Normal NEGATIVE [facility] Comment on above: Performed By: #### U AMIC #### [facility] [address] [address] [address] Noreen Castro LEUKOCYTES Negative Normal NEGATIVE [facility] Comment on above: Performed By: #### U AMIC #### [facility] [address] [address] [address] Noreen Castro MUCOUS NONE SEEN Normal NONE SEEN [facility] Comment on above: Performed By: #### U AMIC #### [facility] [address] [address] [address] Noreen Castro Nitrite Ql (U) Negative Normal NEGATIVE [facility] Comment on above: Performed By: #### U AMIC #### [facility] [address] [place] [address] Dr. Noreen Castro pH (U) 6.0 [pH] Normal 5-9 [facility] Comment on above: Performed By: #### U AMIC #### [facility] [address] [place] [address] Dr. Noreen Castro RBC NONE SEEN Abnormal 0-2 [facility] Comment on above: Performed By: #### U AMIC #### [facility] [address] [place] [address] Dr. Noreen Castro SPEC GRAVITY 1.015 Normal 1.005-<=1.02 5 [facility] Comment on above: Performed By: #### U AMIC #### [facility] [address] [place] [address] Dr. Noreen Castro UA PROTEIN TRACE Normal NEGATIVE/ TRACE [facility] Comment on above: Performed By: #### U AMIC #### [facility] [address] [place] [address] Dr. Noreen Castro Urobilinogen Qn (U) 0.2 {Scarlett'U}/dL Normal 0.2 - 1.0 [facility] Comment on above: Performed By: #### U AMIC #### [facility] [address] [place] [address] Dr. Noreen Castro WBC 0-2 Abnormal NONE SEEN [facility] Comment on above: Performed By: #### U AMIC #### [facility] [address] [place] [address] Dr. Noreen Castro BILIRUBIN CONJUGATED (DIRECT )on 11-16-2022 BILI, CONJUGATED 0.1 mg/dL Normal 0.0-0.2 [facility] Comment on above: Performed By: #### D NATASHA, CMP #### [facility] [address] [place] [address] Dr. Noreen Castro CBC AUTO DIFFon 11-16-2022 BASO # 0.1 103/ul Normal 0.0-0.1 [facility] Comment on above: Performed By: #### C BC #### [facility] [address] [place] [address] Dr. Noreen Castro Basophils/100 WBC (Bld) 0.6 % Normal 0.2-2.0 [facility] Comment on above: Performed By: #### C BC #### [facility] [address] [place] [address] Dr. Noreen Castro EO # 0.2 103/ul Normal 0.0-0.7 [facility] Comment on above: Performed By: #### C BC #### [facility] [address] [place] [address] Dr. Noreen Castro Eosinophils/100 WBC (Bld) 1.8 % Normal 0.9-7.0 [facility] Comment on above: Performed By: #### C BC #### [facility] [address] [place] [address] Dr. Noreen Castro Erythrocyte distribution width (RBC) [Ratio] 14.1 % Normal 11.0-15.0 [facility] Comment on above: Performed By: #### C BC #### [facility] [address] [place] [address] Dr. Noreen Castro Hematocrit (Bld) [Volume fraction] 35.0 % Critically low 36.0-48.0 [facility] Comment on above: Performed By: #### C BC #### [facility] [address] [place] [address] Dr. Noreen Castro Hemoglobin (Bld) [Mass/Vol] 12.0 g/dL Normal 12.0-16.0 [facility] Comment on above: Performed By: #### C BC #### [facility] [address] [place] [address] Dr. Noreen Castro IG # 0.07 10e3/ul Critically high 0.00-0.03 [facility] Comment on above: Performed By: #### C BC #### [facility] [address] [place] [address] Dr. Noreen Castro IG % 0.7 % Critically high 0.0-0.5 [facility] Comment on above: Performed By: #### C BC #### [facility] [address] [place] [address] Dr. Noreen Castro LYMPH # 2.8 103/ul Normal 1.2-3.8 [facility] Comment on above: Performed By: #### C BC #### [facility] [address] [place] [address] Dr. Noreen Castro Lymphocytes/100 WBC (Bld) 27.1 % Normal 20.5-60.0 [facility] Comment on above: Performed By: #### C BC #### [facility] [address] [place] [address] Dr. Noreen Castro MANUAL DIFF REQ NO Normal [facility] Comment on above: Performed By: #### C BC #### [facility] [address] [place] [address] Dr. Noreen Castro MCH (RBC) [Entitic mass] 31.1 pg Normal 26.7-34.0 [facility] Comment on above: Performed By: #### C BC #### [facility] [address] [place] [address] Dr. Noreen Castro MCHC (RBC) [Mass/Vol] 34.3 g/dL Normal 29.9-35.2 [facility] Comment on above: Performed By: #### C BC #### [facility] [address] [place] [address] Dr. Noreen Castro MCV (RBC) [Entitic vol] 90.7 fL Normal 81.0-99.0 [facility] Comment on above: Performed By: #### C BC #### [facility] [address] [place] [address] Dr. Noreen Castro MONO # 0.8 103/ul Normal 0.3-0.8 [facility] Comment on above: Performed By: #### C BC #### [facility] [address] [place] [address] Dr. Noreen Castro Monocytes/100 WBC (Bld) 8.0 % Normal 1.7-12.0 [facility] Comment on above: Performed By: #### C BC #### [facility] [address] [place] [address] Dr. Noreen Castro NEUT # 6.3 103/ul Normal 1.4-6.5 [facility] Comment on above: Performed By: #### C BC #### [facility] [address] [address] [address] Noreen Castro Neutrophils/100 WBC (Bld) 61.8 % Normal 43.0-75.0 [facility] Comment on above: Performed By: #### C BC #### [facility] [address] [address] [address] Noreen Castro Platelet mean volume (Bld) [Entitic vol] 9.6 fL Normal 9.5-13.5 [facility] Comment on above: Performed By: #### C BC #### [facility] [address] [place] [address] Dr. Noreen Castro PLT 210 103/ul Normal 150-450 [facility] Comment on above: Performed By: #### C BC #### [facility] [address] [place] [address] Dr. Noreen Castro RBC 3.86 106/ul Critically low 4.20-5.40 [facility] Comment on above: Performed By: #### C BC #### [facility] [address] [place] [address] Dr. Noreen Castro WBC 10.1 103/ul Normal 4.0-11.0 [facility] Comment on above: Performed By: #### C BC #### [facility] [address] [place] [address] Dr. Noreen Castro PROF 14(COMP METB)on 023 Albumin [Mass/Vol] 3.8 g/dL Normal 3.4-5.0 [facility] Comment on above: Performed By: #### D NATASHA, CMP #### [facility] [address] [place] [address] Dr. Noreen Castro Albumin/Globulin [Mass ratio] 1.1 {ratio} Normal [facility] Comment on above: Performed By: #### D NATASHA, CMP #### [facility] [address] [address] [address] Noreen Castro ALP [Catalytic activity/Vol] 76 U/L Normal 46-116 [facility] Comment on above: Performed By: #### D NATASHA, CMP #### [facility] [address] [address] [address] Noreen Castro ALT [Catalytic activity/Vol] 15 U/L Normal 14-59 [facility] Comment on above: Performed By: #### D NATASHA, CMP #### [facility] [address] [address] [address] Noreen Castro Anion gap [Moles/Vol] 12.7 mmol/L Normal [facility] Comment on above: Performed By: #### D NATASHA, CMP #### [facility] [address] [address] [address] Noreen Castro AST [Catalytic activity/Vol] 19 U/L Normal 15-37 [facility] Comment on above: Performed By: #### D NATASHA, CMP #### [facility] [address] [address] [address] Noreen Castro Bilirubin [Mass/Vol] 0.3 mg/dL Normal 0.2-1.0 [facility] Comment on above: Performed By: #### D NATASHA, CMP #### [facility] [address] [address] [address] Noreen Castro Calcium [Mass/Vol] 9.6 mg/dL Normal 8.5-10.1 [facility] Comment on above: Performed By: #### D NATASHA, CMP #### [facility] [address] [address] [address] Noreen Castro Chloride [Moles/Vol] 100 mmol/L Normal 98-107 [facility] Comment on above: Performed By: #### D NATASHA, CMP #### [facility] [address] [address] [address] Noreen Castro CO2 [Moles/Vol] 29.4 mmol/L Normal 21.0-32.0 [facility] Comment on above: Performed By: #### D NATASHA, CMP #### [facility] [address] [address] [address] Noreen Castro Creatinine [Mass/Vol] 2.18 mg/dL Critically high 0.55-1.02 [facility] Comment on above: Performed By: #### D NATASHA, CMP #### [facility] [address] [address] [address] Noreen Castro EGFR-AF LUXEMBOURGER 26 mL/min/1.73m2 Critically low >=60 [facility] Comment on above: Performed By: #### D NATASHA, CMP #### [facility] [address] [address] [address] Noreen Castro EGFR-NON AF LUXEMBOURGER 22 mL/min/1.73m2 Critically low >=60 [facility] Comment on above: Performed By: #### D NATASHA, CMP #### [facility] [address] [place] [address] Dr. Noreen Castro Globulin (S) [Mass/Vol] 3.6 g/dL Normal [facility] Comment on above: Performed By: #### D NATASHA, CMP #### [facility] [address] [place] [address] Dr. Noreen Castro Glucose [Mass/Vol] 89 mg/dL Normal 74-106 [facility] Comment on above: Performed By: #### D NATASHA, CMP #### [facility] [address] [place] [address] Dr. Noreen Castro Potassium [Moles/Vol] 5.1 mmol/L Normal 3.5-5.1 [facility] Comment on above: Performed By: #### D NATASHA, CMP #### [facility] [address] [place] [address] Dr. Noreen Castro Protein [Mass/Vol] 7.4 g/dL Normal 6.4-8.2 [facility] Comment on above: Performed By: #### D NATASHA, CMP #### [facility] [address] [place] [address] Dr. Noreen Castro Sodium [Moles/Vol] 137 mmol/L Normal 136-145 [facility] Comment on above: Performed By: #### D NATASHA, CMP #### [facility] [address] [place] [address] Dr. Noreen Castro Urea nitrogen [Mass/Vol] 27.0 mg/dL Critically high 7.0-18.0 [facility] Comment on above: Performed By: #### D NATASHA, CMP #### [facility] [address] [address] [address] Noreen Castro Urea nitrogen/Creatinin e [Mass ratio] 12.4 mg/mg Normal [facility] Comment on above: Performed By: #### D NATASHA, CMP #### [facility] [address] [address] [address] Noreen Castro Provider Orderson 08-31-2022 Provider Orders [id number] [facility] C Urineon 08-30-2022 C Urine <10,000 cfu/ml [facility] Comment on above: Performed By: #### [id number] #### [facility] (DEFAULT) [address] [place] [address] 71355 UA Standardon 08-28-2022 Breakpoint UA [facility] Comment on above: Performed By: #### 1 [id number] #### [facility] (DEFAULT) [address] [place] [address] 13787 Color (U) Yellow [facility] Comment on above: Performed By: #### 1 [id number] #### [facility] (DEFAULT) [address] [place] [address] 54714 Glucose (U) [Mass/Vol] Negative [facility] Comment on above: Performed By: #### 1 [id number] #### [facility] (DEFAULT) [address] [place] [address] 95767 Ketones Ql (U) Negative [facility] Comment on above: Performed By: #### 1 [id number] #### [facility] (DEFAULT) [address] [place] [address] 72438 UA Bilirubin Negative [facility] Comment on above: Performed By: #### 1 [id number] #### [facility] (DEFAULT) [address] [place] [address] 73532 UA Blood Negative Normal [facility] Comment on above: Performed By: #### 1 [id number] #### [facility] (DEFAULT) [address] [place] [address] 70961 UA Clarity CLEAR Normal CLEAR [facility] Comment on above: Performed By: #### 1 [id number] #### [facility] (DEFAULT) [address] [place] [address] 34517 UA Leuk Est TRACE Abnormal NEGATIVE [facility] Comment on above: Performed By: #### 1 [id number] #### [facility] (DEFAULT) [address] [place] [address] 90591 UA Nitrite Negative Normal NEGATIVE [facility] Comment on above: Performed By: #### 1 [id number] #### [facility] (DEFAULT) [address] [place] [address] 10983 UA pH 6.0 Normal 5-8 [facility] Comment on above: Performed By: #### 1 [id number] #### [facility] (DEFAULT) [address] [place] [address] 65462 UA Protein TRACE Abnormal NEGATIVE [facility] Comment on above: Performed By: #### 1 [id number] #### [facility] (DEFAULT) [address] [place] [address] 46148 UA Spec Grav 1.020 Normal 1.001-1.035 [facility] Comment on above: Performed By: #### 1 [id number] #### [facility] (DEFAULT) [address] [place] [address] 83613 UA Urobilinogen 0.2 mg/dL Normal 0.2-1.0 [facility] Comment on above: Performed By: #### 1 [id number] #### [facility] (DEFAULT) [address] [place] [address] 57106 Urine Source Clean Catch Normal [facility] Comment on above: Performed By: #### 1 [id number] #### [facility] (DEFAULT) [address] [place] [address] 98523 BILIRUBIN CONJUGATED (DIRECT )on 02-11-2022 BILI, CONJUGATED 0.1 mg/dL Normal 0.0-0.3 [facility] Comment on above: Performed By: #### C MP DBIL #### [facility] [address] [address] [address] Noreen Castro CBC AUTO DIFFon 02-11-2022 BASO # 0.1 103/ul Normal 0.0-0.1 [facility] Comment on above: Performed By: #### U A #### [facility] [address] [place] [address] Dr. Noreen Castro Basophils/100 WBC (Bld) 0.6 % Normal 0.2-2.0 [facility] Comment on above: Performed By: #### U A #### [facility] [address] [place] [address] Dr. Noreen Castro EO # 0.2 103/ul Normal 0.0-0.7 [facility] Comment on above: Performed By: #### U A #### [facility] [address] [place] [address] Dr. Noreen Castro Eosinophils/100 WBC (Bld) 1.2 % Normal 0.9-7.0 [facility] Comment on above: Performed By: #### U A #### [facility] [address] [place] [address] Dr. Noreen Castro Erythrocyte distribution width (RBC) [Ratio] 14.4 % Normal 11.0-15.0 [facility] Comment on above: Performed By: #### U A #### [facility] [address] [place] [address] Dr. Noreen Castro Hematocrit (Bld) [Volume fraction] 39.0 % Normal 36.0-48.0 [facility] Comment on above: Performed By: #### U A #### [facility] [address] [place] [address] Dr. Noreen Castro Hemoglobin (Bld) [Mass/Vol] 12.3 g/dL Normal 12.0-16.0 [facility] Comment on above: Performed By: #### U A #### [facility] [address] [place] [address] Dr. Noreen Castro IG # 0.20 10e3/ul Critically high 0.00-0.03 [facility] Comment on above: Performed By: #### U A #### [facility] [address] [place] [address] Dr. Noreen Castro IG % 1.4 % Critically high 0.0-0.5 [facility] Comment on above: Performed By: #### U A #### [facility] [address] [place] [address] Dr. Noreen Castro LYMPH # 4.4 103/ul Critically high 1.2-3.8 [facility] Comment on above: Performed By: #### U A #### [facility] [address] [place] [address] Dr. Noreen Castro Lymphocytes/100 WBC (Bld) 30.4 % Normal 20.5-60.0 [facility] Comment on above: Performed By: #### U A #### [facility] [address] [place] [address] Dr. Noreen Castro MANUAL DIFF REQ NO Normal [facility] Comment on above: Performed By: #### U A #### [facility] [address] [place] [address] Dr. Noreen Castro MCH (RBC) [Entitic mass] 30.8 pg Normal 26.7-34.0 [facility] Comment on above: Performed By: #### U A #### [facility] [address] [place] [address] Dr. Noreen Castro MCHC (RBC) [Mass/Vol] 31.5 g/dL Normal 29.9-35.2 [facility] Comment on above: Performed By: #### U A #### [facility] [address] [place] [address] Dr. Noreen Castro MCV (RBC) [Entitic vol] 97.5 fL Normal 81.0-99.0 [facility] Comment on above: Performed By: #### U A #### [facility] [address] [place] [address] Dr. Noreen Castro MONO # 1.0 103/ul Critically high 0.3-0.8 [facility] Comment on above: Performed By: #### U A #### [facility] [address] [address] [address] Noreen Castro Monocytes/100 WBC (Bld) 6.8 % Normal 1.7-12.0 [facility] Comment on above: Performed By: #### U A #### [facility] [address] [address] [address] Noreen Castro NEUT # 8.6 103/ul Critically high 1.4-6.5 [facility] Comment on above: Performed By: #### U A #### [facility] [address] [address] [address] Noreen Castro Neutrophils/100 WBC (Bld) 59.6 % Normal 43.0-75.0 [facility] Comment on above: Performed By: #### U A #### [facility] [address] [place] [address] Dr. Noreen Castro Platelet mean volume (Bld) [Entitic vol] 9.9 fL Normal 9.5-13.5 [facility] Comment on above: Performed By: #### U A #### [facility] [address] [place] [address] Dr. Noreen Castro PLT 283 103/ul Normal 150-450 [facility] Comment on above: Performed By: #### U A #### [facility] [address] [place] [address] Dr. Noreen Castro RBC 4.00 106/ul Critically low 4.20-5.40 [facility] Comment on above: Performed By: #### U A #### [facility] [address] [place] [address] Dr. Noreen Castro WBC 14.5 103/ul Critically high 4.0-11.0 [facility] Comment on above: Performed By: #### U A #### [facility] [address] [place] [address] Dr. Noreen Castro CULTURE URINEon 02-11-2022 CULTURE [...] >=320 R F Normal [facility] Comment on above: Performed By: #### U RCX #### [facility] [address] [place] [address] Dr. Noreen Castro DRUG SCREEN RAPID (URINE)on 02-11-2022 AMP Negative Normal NEGATIVE [facility] Comment on above: Performed By: #### U A #### [facility] [address] [place] [address] Dr. Noreen Castro BAR Negative Normal NEGATIVE [facility] Comment on above: Performed By: #### U A #### [facility] [address] [place] [address] Dr. Noreen Castro BUP Negative Normal NEGATIVE [facility] Comment on above: Performed By: #### U A #### [facility] [address] [place] [address] Dr. Noreen Castro BZO Negative Normal NEGATIVE [facility] Comment on above: Performed By: #### U A #### [facility] [address] [place] [address] Dr. Noreen Castro VERONICA Negative Normal NEGATIVE [facility] Comment on above: Performed By: #### U A #### [facility] [address] [place] [address] Dr. Noreen Castro CUT-OFFS SEE BELOW Normal [facility] Comment on above: Result Comment: AMP [...] By: #### U A #### [facility] [address] [place] [address] Dr. Noreen Castro DRUG CUT HEADER DRUG CLASS TEST SYST EM CUT-OFF CONCENTRATIONS ARE FOLLOWS: Normal [facility] Comment on above: Performed By: #### U A #### [facility] [address] [place] [address] Dr. Noreen Castro mAMP Negative Normal NEGATIVE [facility] Comment on above: Performed By: #### U A #### [facility] [address] [place] [address] Dr. Noreen Castro MTD Negative Normal NEGATIVE [facility] Comment on above: Performed By: #### U A #### [facility] [address] [place] [address] Dr. Noreen Castro OPI Negative Normal NEGATIVE [facility] Comment on above: Performed By: #### U A #### [facility] [address] [place] [address] Dr. Noreen Castro OXY Negative Normal NEGATIVE [facility] Comment on above: Performed By: #### U A #### [facility] [address] [place] [address] Dr. Noreen Castro PCP Negative Normal NEGATIVE [facility] Comment on above: Performed By: #### U A #### [facility] [address] [place] [address] Dr. Noreen Castro PPX Negative Normal NEGATIVE [facility] Comment on above: Performed By: #### U A #### [facility] [address] [place] [address] Dr. Noreen Castro TCA Positive Abnormal NEGATIVE [facility] Comment on above: Performed By: #### U A #### [facility] [address] [place] [address] Dr. Noreen Castro THC Negative Normal NEGATIVE [facility] Comment on above: Performed By: #### U A #### [facility] [address] [address] [address] Noreen Castro PROF 14(COMP METB)on 022 Albumin [Mass/Vol] 3.9 g/dL Normal 3.4-5.0 [facility] Comment on above: Performed By: #### C MP, DBIL #### [facility] [address] [place] [address] Dr. Noreen Castro Albumin/Globulin [Mass ratio] 0.9 {ratio} Normal [facility] Comment on above: Performed By: #### C MP, DBIL #### [facility] [address] [place] [address] Dr. Noreen Castro ALP [Catalytic activity/Vol] 76 U/L Normal 46-116 [facility] Comment on above: Performed By: #### C MP, DBIL #### [facility] [address] [place] [address] Dr. Noreen Castro ALT [Catalytic activity/Vol] 39 U/L Normal 14-59 [facility] Comment on above: Performed By: #### C MP, DBIL #### [facility] [address] [place] [address] Dr. Noreen Castro Anion gap [Moles/Vol] 18.4 mmol/L Normal [facility] Comment on above: Performed By: #### C MP, DBIL #### [facility] [address] [place] [address] Dr. Noreen Castro AST [Catalytic activity/Vol] 30 U/L Normal 15-37 [facility] Comment on above: Performed By: #### C MP, DBIL #### [facility] [address] [place] [address] Dr. Noreen Castro Bilirubin [Mass/Vol] 0.4 mg/dL Normal 0.2-1.3 [facility] Comment on above: Performed By: #### C MP, DBIL #### [facility] [address] [place] [address] Dr. Noreen Castro Calcium [Mass/Vol] 9.2 mg/dL Normal 8.5-10.1 [facility] Comment on above: Performed By: #### C MP, DBIL #### [facility] [address] [place] [address] Dr. Noreen Castro Chloride [Moles/Vol] 99 mmol/L Normal 98-107 [facility] Comment on above: Performed By: #### C MP, DBIL #### [facility] [address] [place] [address] Dr. Noreen Castro CO2 [Moles/Vol] 22.2 mmol/L Normal 22.0-30.0 [facility] Comment on above: Performed By: #### C MP, DBIL #### [facility] [address] [place] [address] Dr. Noreen Castro Creatinine [Mass/Vol] 2.72 mg/dL Critically high 0.52-1.04 [facility] Comment on above: Performed By: #### C MP, DBIL #### [facility] [address] [place] [address] Dr. Noreen Castro EGFR-AF LUXEMBOURGER 20 mL/min/1.73m2 Critically low >=60 [facility] Comment on above: Performed By: #### C MP, DBIL #### [facility] [address] [place] [address] Dr. Noreen Castro EGFR-NON AF LUXEMBOURGER 17 mL/min/1.73m2 Critically low >=60 [facility] Comment on above: Performed By: #### C MP, DBIL #### [facility] [address] [place] [address] Dr. Noreen Castro Globulin (S) [Mass/Vol] 4.3 g/dL Normal [facility] Comment on above: Performed By: #### C MP, DBIL #### [facility] [address] [place] [address] Dr. Noreen Castro Glucose [Mass/Vol] 143 mg/dL Critically high 74-106 [facility] Comment on above: Performed By: #### C MP, DBIL #### [facility] [address] [place] [address] Dr. Noreen Castro Potassium [Moles/Vol] 5.6 mmol/L Critically high 3.4-5.0 [facility] Comment on above: Performed By: #### C MP, DBIL #### [facility] [address] [place] [address] Dr. Noreen Castro Protein [Mass/Vol] 8.2 g/dL Normal 6.1-8.2 [facility] Comment on above: Performed By: #### C MP, DBIL #### [facility] [address] [place] [address] Dr. Noreen Castro Sodium [Moles/Vol] 134 mmol/L Critically low 137-145 Th [facility] Comment on above: Performed By: #### C MP, DBIL #### [facility] [address] [place] [address] Dr. Noreen Castro Urea nitrogen [Mass/Vol] 36.0 mg/dL Critically high 7.0-18.0 [facility] Comment on above: Performed By: #### C MP, DBIL #### [facility] [address] [place] [address] Dr. Noreen Castro Urea nitrogen/Creatinin e [Mass ratio] 13.2 mg/mg Normal [facility] Comment on above: Performed By: #### C MP, DBIL #### [facility] [address] [place] [address] Dr. Noreen Castro UA RANDOMon 02-08-2022 Bilirubin Ql (U) Negative Normal NEGATIVE [facility] Comment on above: Performed By: #### U A #### [facility] [address] [place] [address] Dr. Norene Castro Clarity (U) SL CLOUDY Abnormal CLEAR [facility] Comment on above: Performed By: #### U A #### [facility] [address] [place] [address] Dr. Noreen Castro Color (U) LT. YELLOW Normal YELLOW [facility] Comment on above: Performed By: #### U A #### [facility] [address] [place] [address] Dr. Noreen Castro Glucose Ql (U) Negative Normal NEGATIVE [facility] Comment on above: Performed By: #### U A #### [facility] [address] [place] [address] Dr. Noreen Castro Hemoglobin Ql (U) TRACE-INTACT Abnormal NEGATIVE [facility] Comment on above: Performed By: #### U A #### [facility] [address] [place] [address] Dr. Noreen Castro Ketones Ql (U) Negative Normal NEGATIVE [facility] Comment on above: Performed By: #### U A #### [facility] [address] [place] [address] Dr. Noreen Castro LEUKOCYTES MODERATE Abnormal NEGATIVE [facility] Comment on above: Performed By: #### U A #### [facility] [address] [place] [address] Dr. Noreen Castro Nitrite Ql (U) Positive Abnormal NEGATIVE [facility] Comment on above: Performed By: #### U A #### [facility] [address] [place] [address] Dr. Noreen Castro pH (U) 5.0 [pH] Normal 5-9 [facility] Comment on above: Performed By: #### U A #### [facility] [address] [place] [address] Dr. Noreen Castro SPEC GRAVITY 1.020 Normal 1.005-<=1.02 5 [facility] Comment on above: Performed By: #### U A #### [facility] [address] [place] [address] Dr. Noreen Castro UA PROTEIN TRACE Normal NEGATIVE/ TRACE [facility] Comment on above: Performed By: #### U A #### [facility] [address] [place] [address] Dr. Noreen Castro Urobilinogen Qn (U) 0.2 {Scarlett'U}/dL Normal 0.2 - 1.0 [facility] Comment on above: Performed By: #### U A #### [facility] [address] [place] [address] Dr. Noreen Castro CULTURE URINEon 02-01-2022 CULTURE URINE Culture Observations : No growth Normal [facility] Comment on above: Performed By: #### U RCX #### [facility] [address] [place] [address] Dr. Noreen Castro UA RANDOMon 02-01-2022 Bilirubin Ql (U) Negative Normal NEGATIVE [facility] Comment on above: Performed By: #### U A #### [facility] [address] [place] [address] Dr. Noreen Castro Clarity (U) CLEAR Normal CLEAR [facility] Comment on above: Performed By: #### U A #### [facility] [address] [place] [address] Dr. Noreen Castro Color (U) YELLOW Normal YELLOW [facility] Comment on above: Performed By: #### U A #### [facility] [address] [place] [address] Dr. Noreen Castro Glucose Ql (U) Negative Normal NEGATIVE [facility] Comment on above: Performed By: #### U A #### [facility] [address] [place] [address] Dr. Noreen Castro Hemoglobin Ql (U) SMALL Abnormal NEGATIVE [facility] Comment on above: Performed By: #### U A #### [facility] [address] [place] [address] Dr. Noreen Castro Ketones Ql (U) Negative Normal NEGATIVE [facility] Comment on above: Performed By: #### U A #### [facility] [address] [place] [address] Dr. Noreen Castro LEUKOCYTES Negative Normal NEGATIVE [facility] Comment on above: Performed By: #### U A #### [facility] [address] [place] [address] Dr. Noreen Castro Nitrite Ql (U) Negative Normal NEGATIVE [facility] Comment on above: Performed By: #### U A #### [facility] [address] [place] [address] Dr. Noreen Castro pH (U) 5.0 [pH] Normal 5-9 [facility] Comment on above: Performed By: #### U A #### [facility] [address] [address] [address] Noreen Castro SPEC GRAVITY 1.025 Normal 1.005-<=1.02 5 [facility] Comment on above: Performed By: #### U A #### [facility] [address] [address] [address] Noreen Castro UA PROTEIN Negative Normal NEGATIVE/ TRACE [facility] Comment on above: Performed By: #### U A #### [facility] [address] [address] [address] Noreen Castro Urobilinogen Qn (U) 0.2 {Scarlett'U}/dL Normal 0.2 - 1.0 [facility] Comment on above: Performed By: #### U A #### [facility] [address] [address] [address] Noreen Castro POC GLUCOSE LABon 07-19-2018 Glucose mass conc 97 mg/dL Normal 70-100 [facility] Comment on above: Performed By: #### 0 0121 ####[facility] [facility] [place] [address], [facility] Glucose mass conc 110 mg/dL High 70-100 [facility] Comment on above: Performed By: #### 0 0121 ####[facility] [facility] [place] [address], [facility] Glucose mass conc 93 mg/dL Normal 70-100 [facility] Comment on above: Performed By: #### 0 0121 ####[facility] [facility] [place] [address], [facility] Glucose mass conc 92 mg/dL Normal 70-100 [facility] Comment on above: Performed By: #### 0 0121 ####[facility] [facility] [place] [address], [facility] CBC COMPLETE BLOOD COUNTon 0 07-18-2018 Erythrocyte distribution width Auto Ratio (RBC) 14.0 % Normal 11.5-15.0 [facility] Comment on above: Order Comment: No: D o not add to previous draw Performed By: #### 0 0121 ####[facility] Hematocrit Auto Volume Fraction (Bld) 32.3 % Low 36.0-45.0 [facility] Comment on above: Order Comment: No: D o not add to previous draw Performed By: #### 0 0121 ####[facility] Hemoglobin mass conc (Bld) 10.1 g/dL Low 12.0-15.0 [facility] Comment on above: Order Comment: No: D o not add to previous draw Performed By: #### 0 0121 ####[facility] MCH Auto Entitic mass (RBC) 29.6 pg Normal 27.0-33.0 [facility] Comment on above: Order Comment: No: D o not add to previous draw Performed By: #### 0 0121 ####[facility] MCHC Auto mass conc (RBC) 31.3 g/dL Low 32.0-35.0 [facility] Comment on above: Order Comment: No: D o not add to previous draw Performed By: #### 0 0121 ####[facility] MCV Auto Entitic volume (RBC) 94.7 fL Normal 82.0-98.0 [facility] Comment on above: Order Comment: No: D o not add to previous draw Performed By: #### 0 0121 ####[facility] Nucleated RBC/100 WBC Ratio (Bld) 0 % Normal 0-0 [facility] Comment on above: Order Comment: No: D o not add to previous draw Performed By: #### 0 0121 ####[facility] [address], [facility] PLAT CNT 372 10*3/uL Normal 150-400 [facility] Comment on above: Order Comment: No: D o not add to previous draw Performed By: #### 0 0121 ####[facility] [place] [address], [facility] RBC Auto #/vol (Bld) 3.41 10*6/uL Low 3.80-5.00 [facility] Comment on above: Order Comment: No: D o not add to previous draw Performed By: #### 0 0121 ####[facility] [place] [address], [facility] WBC Auto #/vol (Bld) 8.69 10*3/uL Normal 4.00-10.60 [facility] Comment on above: Order Comment: No: D o not add to previous draw Performed By: #### 0 0121 ####[facility] [place] [address], [facility] POC GLUCOSE LABon 07-18-2018 Glucose mass conc 101 mg/dL High 70-100 [facility] Comment on above: Performed By: #### 0 0121 ####[facility] [place] [address], [facility] Glucose mass conc 117 mg/dL High 70-100 [facility] Comment on above: Performed By: #### 0 0121 ####[facility] [place] [address], [facility] Glucose mass conc 94 mg/dL Normal 70-100 [facility] Comment on above: Performed By: #### 0 0121 ####[facility] [place] [address], [facility] Glucose mass conc 92 mg/dL Normal 70-100 [facility] Comment on above: Performed By: #### 0 0121 ####[facility] [place] [address], [facility] POC GLUCOSE LABon 07-17-2018 Glucose mass conc 105 mg/dL High 70-100 [facility] Comment on above: Performed By: #### 0 0121 ####[facility] [place] [address], [facility] Glucose mass conc 126 mg/dL High 70-100 [facility] Comment on above: Performed By: #### 0 0121 ####[facility] [facility] [address], [facility] Glucose mass conc 118 mg/dL High 70-100 [facility] Comment on above: Performed By: #### 0 0121 ####[facility] [facility] [place] [address], [facility] Glucose mass conc 99 mg/dL Normal 70-100 [facility] Comment on above: Performed By: #### 0 0121 ####[facility] [facility] [place] [address], [facility] BASIC METABOLIC PANELon Calcium mass conc 9.4 mg/dL Normal 8.6-10.3 [facility] Comment on above: Order Comment: No: D o not add to previous draw Performed By: #### 0 0121 ####[facility] [facility] [place] [address], [facility] Chloride molar conc 104 mmol/L Normal 98-107 [facility] Comment on above: Order Comment: No: D o not add to previous draw Performed By: #### 0 0121 ####[facility] [place] [address], [facility] CO2 molar conc 24 mmol/L Normal 21-31 [facility] Comment on above: Order Comment: No: D o not add to previous draw Performed By: #### 0 0121 ####[facility] [facility] [place] [address], [facility] Creatinine mass conc 1.11 mg/dL Normal 0.60-1.20 [facility] Comment on above: Order Comment: No: D o not add to previous draw Performed By: #### 0 0121 ####[facility] [facility] [place] [address], [facility] GFR/1.73 sq M predicted among blacks MDRD vol rate/area (S/P/Bld) 57 ml/min/1.73sq m Abnormal >60 [facility] Comment on above: Order Comment: No: D o not add to previous draw Result Comment: Calc ulation may not be valid for patients over 70 years Performed By: #### 0 0121 ####[facility] [facility] [place] [address], [facility] GFR/1.73 sq M predicted among non-blacks MDRD vol rate/area (S/P/Bld) 47 ml/min/1.73sq m Abnormal >60 [facility] Comment on above: Order Comment: No: D o not add to previous draw Result Comment: Calc ulation may not be valid for patients over 70 years Performed By: #### 0 0121 ####[facility] [facility] [place] [address], [facility] Glucose mass conc 104 mg/dL High 70-100 [facility] Comment on above: Order Comment: No: D o not add to previous draw Performed By: #### 0 0121 ####[facility] [facility] [place] [address], [facility] Potassium molar conc 4.6 mmol/L Normal 3.5-5.1 [facility] Comment on above: Order Comment: No: D o not add to previous draw Performed By: #### 0 0121 ####[facility] [facility] [place] [address], [place] Sodium molar conc 135 mmol/L Low 136-145 [facility] Comment on above: Order Comment: No: D o not add to previous draw Performed By: #### 0 0121 ####[place] [id number] Urea nitrogen mass conc 22 mg/dL Normal 7-25 [facility] Comment on above: Order Comment: No: D o not add to previous draw Performed By: #### 0 0121 ####[facility] CBC W/DIFFon 07-16-2018 ABS BASOPHILS 0.1 10*3/uL Normal 0.0-0.2 [facility] Comment on above: Order Comment: No: D o not add to previous draw Performed By: #### 0 0121 ####[facility] ABS IMM GRANS 0.3 10*3/uL High 0.0-0.2 [facility] Comment on above: Order Comment: No: D o not add to previous draw Performed By: #### 0 0121 ####[place] [id number] ABS NEUTROPHILS 6.5 10*3/uL Normal 1.6-7.6 [facility] Comment on above: Order Comment: No: D o not add to previous draw Performed By: #### 0 0121 ####[facility] Basophils Auto #/vol (Bld) 0.6 % Normal 0.0-1.0 [facility] Comment on above: Order Comment: No: D o not add to previous draw Performed By: #### 0 0121 ####[facility] Eosinophils Auto #/vol (Bld) 0.3 10*3/uL Normal 0.0-0.5 [facility] Comment on above: Order Comment: No: D o not add to previous draw Performed By: #### 0 0121 ####[facility] Eosinophils/100 WBC Auto (Bld) 2.5 % Normal 0.0-6.0 [facility] Comment on above: Order Comment: No: D o not add to previous draw Performed By: #### 0 0121 ####[facility] Erythrocyte distribution width Auto Ratio (RBC) 14.4 % Normal 11.5-15.0 [facility] Comment on above: Order Comment: No: D o not add to previous draw Performed By: #### 0 0121 ####[facility] Hematocrit Auto Volume Fraction (Bld) 31.7 % Low 36.0-45.0 [facility] Comment on above: Order Comment: No: D o not add to previous draw Performed By: #### 0 0121 ####[facility] Hemoglobin mass conc (Bld) 10.1 g/dL Low 12.0-15.0 [facility] Comment on above: Order Comment: No: D o not add to previous draw Performed By: #### 0 0121 ####[facility] IMMATURE GRANS 2.8 % High 0.0-1.0 [facility] Comment on above: Order Comment: No: D o not add to previous draw Performed By: #### 0 0121 ####[facility] Lymphocytes Auto #/vol (Bld) 2.4 10*3/uL Normal 1.2-4.0 [facility] Comment on above: Order Comment: No: D o not add to previous draw Performed By: #### 0 0121 ####[facility] Lymphocytes/100 WBC Auto (Bld) 22.1 % Normal 20.0-45.0 [facility] Comment on above: Order Comment: No: D o not add to previous draw Performed By: #### 0 0121 ####[facility] MCH Auto Entitic mass (RBC) 30.3 pg Normal 27.0-33.0 [facility] Comment on above: Order Comment: No: D o not add to previous draw Performed By: #### 0 0121 ####[facility] MCHC Auto mass conc (RBC) 31.9 g/dL Low 32.0-35.0 [facility] Comment on above: Order Comment: No: D o not add to previous draw Performed By: #### 0 0121 ####[place] [id number] MCV Auto Entitic volume (RBC) 95.2 fL Normal 82.0-98.0 [facility] Comment on above: Order Comment: No: D o not add to previous draw Performed By: #### 0 0121 ####[facility] Monocytes Auto #/vol (Bld) 1.2 10*3/uL High 0.1-1.0 [facility] Comment on above: Order Comment: No: D o not add to previous draw Performed By: #### 0 0121 ####[facility] MONOS 11.0 % Normal 5.0-12.0 [facility] Comment on above: Order Comment: No: D o not add to previous draw Performed By: #### 0 0121 ####[facility] [address] [address], [facility] Neutrophils/100 WBC Auto (Bld) 61.0 % Normal 40.0-72.0 [facility] Comment on above: Order Comment: No: D o not add to previous draw Performed By: #### 0 0121 ####[facility] [facility].[address] Nucleated RBC/100 WBC Ratio (Bld) 0 % Normal 0-0 [facility] Comment on above: Order Comment: No: D o not add to previous draw Performed By: #### 0 0121 ####[facility] [facility] [place] [address], [facility] PLAT CNT 450 10*3/uL High 150-400 [facility] Comment on above: Order Comment: No: D o not add to previous draw Performed By: #### 0 0121 ####[facility] [facility].[address] RBC Auto #/vol (Bld) 3.33 10*6/uL Low 3.80-5.00 [facility] Comment on above: Order Comment: No: D o not add to previous draw Performed By: #### 0 0121 ####[facility] [address], [facility] WBC Auto #/vol (Bld) 10.68 10*3/uL High 4.00-10.60 [facility] Comment on above: Order Comment: No: D o not add to previous draw Performed By: #### 0 0121 ####[facility] MAGNESIUM BLOODon 07-16-2018 Magnesium mass conc 2.3 mg/dL Normal 1.9-2.7 [facility] Comment on above: Order Comment: No: D o not add to previous draw Performed By: #### 0 0121 ####[facility] [place] [address], [facility] PHOSPHORUS BLOODon 8 Phosphate mass conc 3.6 mg/dL Normal 2.5-5.0 [facility] Comment on above: Order Comment: No: D o not add to previous draw Performed By: #### 0 0121 ####[facility] [place] [address], [facility] POC GLUCOSE LABon 07-16-2018 Glucose mass conc 111 mg/dL High 70-100 [facility] Comment on above: Performed By: #### 0 0121 ####[facility] [place] [address], [facility] Glucose mass conc 159 mg/dL High 70-100 [facility] Comment on above: Performed By: #### 0 0121 ####[facility] [place] [address], [facility] Glucose mass conc 103 mg/dL High 70-100 [facility] Comment on above: Performed By: #### 0 0121 ####[facility] [place] [address], [facility] Glucose mass conc 99 mg/dL Normal 70-100 [facility] Comment on above: Performed By: #### 0 0121 ####[facility] [place] [address], [facility] BASIC METABOLIC PANELon Calcium mass conc 8.8 mg/dL Normal 8.6-10.3 [facility] Comment on above: Order Comment: No: D o not add to previous draw Performed By: #### 0 0121 ####[facility] [place] [address], [facility] Chloride molar conc 106 mmol/L Normal 98-107 [facility] Comment on above: Order Comment: No: D o not add to previous draw Performed By: #### 0 0121 ####[facility] [facility] [place] [address], [facility] CO2 molar conc 23 mmol/L Normal 21-31 [facility] Comment on above: Order Comment: No: D o not add to previous draw Performed By: #### 0 0121 ####[facility] [facility] [place] [address], [facility] Creatinine mass conc 1.01 mg/dL Normal 0.60-1.20 [facility] Comment on above: Order Comment: No: D o not add to previous draw Performed By: #### 0 0121 ####[facility] [facility] [place] [address], [facility] GFR/1.73 sq M predicted among blacks MDRD vol rate/area (S/P/Bld) mL/min/{1.73_m2} Normal >60 [facility] Comment on above: Order Comment: No: D o not add to previous draw Result Comment: Calc ulation may not be valid for patients over 70 years Performed By: #### 0 0121 ####[facility] [facility] [place] [address], [facility] GFR/1.73 sq M predicted among non-blacks MDRD vol rate/area (S/P/Bld) 53 ml/min/1.73sq m Abnormal >60 [facility] Comment on above: Order Comment: No: D o not add to previous draw Result Comment: Calc ulation may not be valid for patients over 70 years Performed By: #### 0 0121 ####[facility] [facility] [place] [address], [facility] Glucose mass conc 139 mg/dL High 70-100 [facility] Comment on above: Order Comment: No: D o not add to previous draw Performed By: #### 0 0121 ####[facility] [facility] Potassium molar conc 4.1 mmol/L Normal 3.5-5.1 [facility] Comment on above: Order Comment: No: D o not add to previous draw Performed By: #### 0 0121 ####[facility] [facility].[address] Sodium molar conc 136 mmol/L Normal 136-145 [facility] Comment on above: Order Comment: No: D o not add to previous draw Performed By: #### 0 0121 ####[facility] Urea nitrogen mass conc 26 mg/dL High 7-25 [facility] Comment on above: Order Comment: No: D o not add to previous draw Performed By: #### 0 0121 ####[facility] CBC W/DIFFon 07-15-2018 ABS BASOPHILS 0.0 10*3/uL Normal 0.0-0.2 [facility] Comment on above: Order Comment: No: D o not add to previous draw Performed By: #### 0 0121 ####[facility] ABS IMM GRANS 0.3 10*3/uL High 0.0-0.2 [facility] Comment on above: Order Comment: No: D o not add to previous draw Performed By: #### 0 0121 ####[facility] ABS NEUTROPHILS 5.7 10*3/uL Normal 1.6-7.6 [facility] Comment on above: Order Comment: No: D o not add to previous draw Performed By: #### 0 0121 ####[facility] [facility].[address] Basophils Auto #/vol (Bld) 0.4 % Normal 0.0-1.0 [facility] Comment on above: Order Comment: No: D o not add to previous draw Performed By: #### 0 0121 ####[facility] Eosinophils Auto #/vol (Bld) 0.2 10*3/uL Normal 0.0-0.5 [facility] Comment on above: Order Comment: No: D o not add to previous draw Performed By: #### 0 0121 ####[facility] Eosinophils/100 WBC Auto (Bld) 2.1 % Normal 0.0-6.0 [facility] Comment on above: Order Comment: No: D o not add to previous draw Performed By: #### 0 0121 ####[facility] Erythrocyte distribution width Auto Ratio (RBC) 14.1 % Normal 11.5-15.0 [facility] Comment on above: Order Comment: No: D o not add to previous draw Performed By: #### 0 0121 ####[facility] Hematocrit Auto Volume Fraction (Bld) 28.7 % Low 36.0-45.0 [facility] Comment on above: Order Comment: No: D o not add to previous draw Performed By: #### 0 0121 ####[facility] Hemoglobin mass conc (Bld) 9.1 g/dL Low 12.0-15.0 [facility] Comment on above: Order Comment: No: D o not add to previous draw Performed By: #### 0 0121 ####[facility] [place] [address] IMMATURE GRANS 3.4 % High 0.0-1.0 [facility] Comment on above: Order Comment: No: D o not add to previous draw Performed By: #### 0 0121 ####[facility] Lymphocytes Auto #/vol (Bld) 2.6 10*3/uL Normal 1.2-4.0 [facility] Comment on above: Order Comment: No: D o not add to previous draw Performed By: #### 0 0121 ####[facility] Lymphocytes/100 WBC Auto (Bld) 25.8 % Normal 20.0-45.0 [facility] Comment on above: Order Comment: No: D o not add to previous draw Performed By: #### 0 0121 ####[place] [id number] MCH Auto Entitic mass (RBC) 30.4 pg Normal 27.0-33.0 [facility] Comment on above: Order Comment: No: D o not add to previous draw Performed By: #### 0 0121 ####[place] [id number] MCHC Auto mass conc (RBC) 31.7 g/dL Low 32.0-35.0 [facility] Comment on above: Order Comment: No: D o not add to previous draw Performed By: #### 0 0121 ####[facility] MCV Auto Entitic volume (RBC) 96.0 fL Normal 82.0-98.0 [facility] Comment on above: Order Comment: No: D o not add to previous draw Performed By: #### 0 0121 ####[address] Monocytes Auto #/vol (Bld) 1.0 10*3/uL Normal 0.1-1.0 [facility] Comment on above: Order Comment: No: D o not add to previous draw Performed By: #### 0 0121 ####[facility] MONOS 10.2 % Normal 5.0-12.0 [facility] Comment on above: Order Comment: No: D o not add to previous draw Performed By: #### 0 0121 ####[facility] [facility].[address] Neutrophils/100 WBC Auto (Bld) 58.1 % Normal 40.0-72.0 [facility] Comment on above: Order Comment: No: D o not add to previous draw Performed By: #### 0 0121 ####[facility] [facility].[address] Nucleated RBC/100 WBC Ratio (Bld) 0 % Normal 0-0 [facility] Comment on above: Order Comment: No: D o not add to previous draw Performed By: #### 0 0121 ####[facility] [facility] [place] [address], [facility] PLAT CNT 447 10*3/uL High 150-400 [facility] Comment on above: Order Comment: No: D o not add to previous draw Performed By: #### 0 0121 ####[facility] [facility].[address] RBC Auto #/vol (Bld) 2.99 10*6/uL Low 3.80-5.00 [facility] Comment on above: Order Comment: No: D o not add to previous draw Performed By: #### 0 0121 ####[facility] WBC Auto #/vol (Bld) 9.87 10*3/uL Normal 4.00-10.60 [facility] Comment on above: Order Comment: No: D o not add to previous draw Performed By: #### 0 0121 ####[facility] [place] [address], [facility] MAGNESIUM BLOODon 07-15-2018 Magnesium mass conc 1.6 mg/dL Low 1.9-2.7 [facility] Comment on above: Order Comment: No: D o not add to previous draw Performed By: #### 0 0121 ####[facility] [place] [address], [facility] PHOSPHORUS BLOODon 8 Phosphate mass conc 3.2 mg/dL Normal 2.5-5.0 [facility] Comment on above: Order Comment: No: D o not add to previous draw Performed By: #### 0 0121 ####[facility] [place] [address], [facility] POC GLUCOSE LABon 07-15-2018 Glucose mass conc 109 mg/dL High 70-100 [facility] Comment on above: Performed By: #### 0 0121 ####[facility] [address], [facility] Glucose mass conc 154 mg/dL High 70-100 [facility] Comment on above: Performed By: #### 0 0121 ####[facility] [place] [address], [facility] Glucose mass conc 156 mg/dL High 70-100 [facility] Comment on above: Performed By: #### 0 0121 ####[facility] [place] [address], [facility] Glucose mass conc 166 mg/dL High 70-100 [facility] Comment on above: Performed By: #### 0 0121 ####[facility] [place] [address], [facility] BASIC METABOLIC PANELon Calcium mass conc 9.6 mg/dL Normal 8.6-10.3 [facility] Comment on above: Order Comment: No: D o not add to previous draw Performed By: #### 0 0121 ####[facility] [place] [address], [facility] Chloride molar conc 105 mmol/L Normal 98-107 [facility] Comment on above: Order Comment: No: D o not add to previous draw Performed By: #### 0 0121 ####[facility] [place] [address], [place] CO2 molar conc 21 mmol/L Normal 21-31 [facility] Comment on above: Order Comment: No: D o not add to previous draw Performed By: #### 0 0121 ####[facility] [facility] [place] [address], [facility] Creatinine mass conc 1.16 mg/dL Normal 0.60-1.20 [facility] Comment on above: Order Comment: No: D o not add to previous draw Performed By: #### 0 0121 ####[facility] [facility] [place] [address], [facility] GFR/1.73 sq M predicted among blacks MDRD vol rate/area (S/P/Bld) 54 ml/min/1.73sq m Abnormal >60 [facility] Comment on above: Order Comment: No: D o not add to previous draw Result Comment: Calc ulation may not be valid for patients over 70 years Performed By: #### 0 0121 ####[facility] [facility] [place] [address], [facility] GFR/1.73 sq M predicted among non-blacks MDRD vol rate/area (S/P/Bld) 45 ml/min/1.73sq m Abnormal >60 [facility] Comment on above: Order Comment: No: D o not add to previous draw Result Comment: Calc ulation may not be valid for patients over 70 years Performed By: #### 0 0121 ####[facility] Glucose mass conc 172 mg/dL High 70-100 [facility] Comment on above: Order Comment: No: D o not add to previous draw Performed By: #### 0 0121 ####[facility] [facility].[address] Potassium molar conc 4.9 mmol/L Normal 3.5-5.1 [facility] Comment on above: Order Comment: No: D o not add to previous draw Performed By: #### 0 0121 ####[facility] [facility].[address] Sodium molar conc 132 mmol/L Low 136-145 [facility] Comment on above: Order Comment: No: D o not add to previous draw Performed By: #### 0 0121 ####[facility] [facility].[address] Urea nitrogen mass conc 28 mg/dL High 7-25 [facility] Comment on above: Order Comment: No: D o not add to previous draw Performed By: #### 0 0121 ####[address] CBC W/DIFFon 07-14-2018 ABS BASOPHILS 0.1 10*3/uL Normal 0.0-0.2 [facility] Comment on above: Order Comment: No: D o not add to previous draw Performed By: #### 0 0121 ####[facility] [facility].[address] ABS NEUTROPHILS 9.2 10*3/uL High 1.6-7.6 [facility] Comment on above: Order Comment: No: D o not add to previous draw Performed By: #### 0 0121 ####[facility] [facility].[address] Basophils Auto #/vol (Bld) 0.9 % Normal 0.0-1.0 [facility] Comment on above: Order Comment: No: D o not add to previous draw Performed By: #### 0 0121 ####[facility] [facility].[address] Eosinophils Auto #/vol (Bld) 0.4 10*3/uL Normal 0.0-0.5 [facility] Comment on above: Order Comment: No: D o not add to previous draw Performed By: #### 0 0121 ####[facility] Eosinophils/100 WBC Auto (Bld) 2.7 % Normal 0.0-6.0 [facility] Comment on above: Order Comment: No: D o not add to previous draw Performed By: #### 0 0121 ####[facility] Erythrocyte distribution width Auto Ratio (RBC) 14.4 % Normal 11.5-15.0 [facility] Comment on above: Order Comment: No: D o not add to previous draw Performed By: #### 0 0121 ####[facility] Hematocrit Auto Volume Fraction (Bld) 30.8 % Low 36.0-45.0 [facility] Comment on above: Order Comment: No: D o not add to previous draw Performed By: #### 0 0121 ####[facility] Hemoglobin mass conc (Bld) 9.7 g/dL Low 12.0-15.0 [facility] Comment on above: Order Comment: No: D o not add to previous draw Performed By: #### 0 0121 ####[facility] [place] [address], [facility] Lymphocytes Auto #/vol (Bld) 2.5 10*3/uL Normal 1.2-4.0 [facility] Comment on above: Order Comment: No: D o not add to previous draw Performed By: #### 0 0121 ####[facility] Lymphocytes/100 WBC Auto (Bld) 18.2 % Low 20.0-45.0 [facility] Comment on above: Order Comment: No: D o not add to previous draw Performed By: #### 0 0121 ####[facility] MCH Auto Entitic mass (RBC) 30.6 pg Normal 27.0-33.0 [facility] Comment on above: Order Comment: No: D o not add to previous draw Performed By: #### 0 0121 ####[facility] MCHC Auto mass conc (RBC) 31.5 g/dL Low 32.0-35.0 [facility] Comment on above: Order Comment: No: D o not add to previous draw Performed By: #### 0 0121 ####[facility] MCV Auto Entitic volume (RBC) 97.2 fL Normal 82.0-98.0 [facility] Comment on above: Order Comment: No: D o not add to previous draw Performed By: #### 0 0121 ####[facility] Monocytes Auto #/vol (Bld) 1.3 10*3/uL High 0.1-1.0 [facility] Comment on above: Order Comment: No: D o not add to previous draw Performed By: #### 0 0121 ####[facility] MONOS 10.0 % Normal 5.0-12.0 [facility] Comment on above: Order Comment: No: D o not add to previous draw Performed By: #### 0 0121 ####[facility] [address], [facility] Neutrophils/100 WBC Auto (Bld) 68.2 % Normal 40.0-72.0 [facility] Comment on above: Order Comment: No: D o not add to previous draw Performed By: #### 0 0121 ####[facility] [facility].[address] NRBC SCAN Present Normal [facility] Comment on above: Order Comment: No: D o not add to previous draw Performed By: #### 0 0121 ####[facility] [facility].[address] Nucleated RBC/100 WBC Ratio (Bld) 0 % Normal 0-0 [facility] Comment on above: Order Comment: No: D o not add to previous draw Performed By: #### 0 0121 ####[facility] [facility].[address] PLAT CNT 509 10*3/uL High 150-400 [facility] Comment on above: Order Comment: No: D o not add to previous draw Performed By: #### 0 0121 ####[facility] [facility].[address] RBC Auto #/vol (Bld) 3.17 10*6/uL Low 3.80-5.00 [facility] Comment on above: Order Comment: No: D o not add to previous draw Performed By: #### 0 0121 ####[facility] [place] [address].[address] WBC Auto #/vol (Bld) 13.48 10*3/uL High 4.00-10.60 [facility] Comment on above: Order Comment: No: D o not add to previous draw Performed By: #### 0 0121 ####[facility] [place] [address], [facility] MAGNESIUM BLOODon 07-14-2018 Magnesium mass conc 2.2 mg/dL Normal 1.9-2.7 [facility] Comment on above: Order Comment: No: D o not add to previous draw Performed By: #### 0 0121 ####[facility] [place] [address], [facility] PHOSPHORUS BLOODon 8 Phosphate mass conc 3.8 mg/dL Normal 2.5-5.0 [facility] Comment on above: Order Comment: No: D o not add to previous draw Performed By: #### 0 0121 ####[facility] [place] [address], [facility] POC GLUCOSE LABon 07-14-2018 Glucose mass conc 169 mg/dL High 70-100 [facility] Comment on above: Performed By: #### 0 0121 ####[facility] [place] [address], [facility] Glucose mass conc 188 mg/dL High 70-100 [facility] Comment on above: Performed By: #### 0 0121 ####[facility] [place] [address], [facility] Glucose mass conc 187 mg/dL High 70-100 [facility] Comment on above: Performed By: #### 0 0121 ####[facility] [place] [address], [facility] Glucose mass conc 123 mg/dL High 70-100 [facility] Comment on above: Performed By: #### 0 0121 ####[facility] [place] [address], [facility] BASIC METABOLIC PANELon Calcium mass conc 9.2 mg/dL Normal 8.6-10.3 [facility] Comment on above: Order Comment: No: D o not add to previous draw Performed By: #### 0 0121 ####[facility] [place] [address], [facility] Chloride molar conc 104 mmol/L Normal 98-107 [facility] Comment on above: Order Comment: No: D o not add to previous draw Performed By: #### 0 0121 ####[facility] [place] [address], [place] CO2 molar conc 22 mmol/L Normal 21-31 [facility] Comment on above: Order Comment: No: D o not add to previous draw Performed By: #### 0 0121 ####[facility] [facility] [place] [address], [facility] Creatinine mass conc 1.30 mg/dL High 0.60-1.20 [facility] Comment on above: Order Comment: No: D o not add to previous draw Performed By: #### 0 0121 ####[facility] [facility] [place] [address], [facility] GFR/1.73 sq M predicted among blacks MDRD vol rate/area (S/P/Bld) 47 ml/min/1.73sq m Abnormal >60 [facility] Comment on above: Order Comment: No: D o not add to previous draw Result Comment: Calc ulation may not be valid for patients over 70 years Performed By: #### 0 0121 ####[facility] [facility] [place] [address], [facility] GFR/1.73 sq M predicted among non-blacks MDRD vol rate/area (S/P/Bld) 39 ml/min/1.73sq m Abnormal >60 [facility] Comment on above: Order Comment: No: D o not add to previous draw Result Comment: Calc ulation may not be valid for patients over 70 years Performed By: #### 0 0121 ####[facility] Glucose mass conc 160 mg/dL High 70-100 [facility] Comment on above: Order Comment: No: D o not add to previous draw Performed By: #### 0 0121 ####[facility] [facility].[address] Potassium molar conc 4.7 mmol/L Normal 3.5-5.1 [facility] Comment on above: Order Comment: No: D o not add to previous draw Performed By: #### 0 0121 ####[facility] [facility].[address] Sodium molar conc 133 mmol/L Low 136-145 [facility] Comment on above: Order Comment: No: D o not add to previous draw Performed By: #### 0 0121 ####[facility] [facility].[address] Urea nitrogen mass conc 32 mg/dL High 7-25 [facility] Comment on above: Order Comment: No: D o not add to previous draw Performed By: #### 0 0121 ####[address] CBC W/DIFFon 07-13-2018 ABS BASOPHILS 0.1 10*3/uL Normal 0.0-0.2 [facility] Comment on above: Order Comment: No: D o not add to previous draw Performed By: #### 0 0121 ####[facility] [facility].[address] ABS NEUTROPHILS 7.1 10*3/uL Normal 1.6-7.6 [facility] Comment on above: Order Comment: No: D o not add to previous draw Performed By: #### 0 0121 ####[facility] [facility].[address] Basophils Auto #/vol (Bld) 1.0 % Normal 0.0-1.0 [facility] Comment on above: Order Comment: No: D o not add to previous draw Performed By: #### 0 0121 ####[facility] Eosinophils Auto #/vol (Bld) 0.1 10*3/uL Normal 0.0-0.5 [facility] Comment on above: Order Comment: No: D o not add to previous draw Performed By: #### 0 0121 ####[facility] [facility].[address] Eosinophils/100 WBC Auto (Bld) 1.0 % Normal 0.0-6.0 [facility] Comment on above: Order Comment: No: D o not add to previous draw Performed By: #### 0 0121 ####[facility] [facility].[address] Erythrocyte distribution width Auto Ratio (RBC) 14.4 % Normal 11.5-15.0 [facility] Comment on above: Order Comment: No: D o not add to previous draw Performed By: #### 0 0121 ####[facility] [facility].[address] Hematocrit Auto Volume Fraction (Bld) 30.2 % Low 36.0-45.0 [facility] Comment on above: Order Comment: No: D o not add to previous draw Performed By: #### 0 0121 ####[facility] [facility].[address] Hemoglobin mass conc (Bld) 9.3 g/dL Low 12.0-15.0 [facility] Comment on above: Order Comment: No: D o not add to previous draw Performed By: #### 0 0121 ####[facility] [place] [address], [facility] Lymphocytes Auto #/vol (Bld) 2.7 10*3/uL Normal 1.2-4.0 [facility] Comment on above: Order Comment: No: D o not add to previous draw Performed By: #### 0 0121 ####[facility] Lymphocytes/100 WBC Auto (Bld) 23.3 % Normal 20.0-45.0 [facility] Comment on above: Order Comment: No: D o not add to previous draw Performed By: #### 0 0121 ####[facility] MCH Auto Entitic mass (RBC) 30.3 pg Normal 27.0-33.0 [facility] Comment on above: Order Comment: No: D o not add to previous draw Performed By: #### 0 0121 ####[facility] MCHC Auto mass conc (RBC) 30.8 g/dL Low 32.0-35.0 [facility] Comment on above: Order Comment: No: D o not add to previous draw Performed By: #### 0 0121 ####[facility] MCV Auto Entitic volume (RBC) 98.4 fL High 82.0-98.0 [facility] Comment on above: Order Comment: No: D o not add to previous draw Performed By: #### 0 0121 ####[facility] METAMYELO 1.9 % High 0.0-0.0 [facility] Comment on above: Order Comment: No: D o not add to previous draw Performed By: #### 0 0121 ####[facility] [place] [address] Monocytes Auto #/vol (Bld) 1.0 10*3/uL Normal 0.1-1.0 [facility] Comment on above: Order Comment: No: D o not add to previous draw Performed By: #### 0 0121 ####[facility] [address], [facility] MONOS 8.7 % Normal 5.0-12.0 [facility] Comment on above: Order Comment: No: D o not add to previous draw Performed By: #### 0 0121 ####[facility] [facility] [place] [address], [facility] MYELOS 3.9 % High .0-.0 [facility] Comment on above: Order Comment: No: D o not add to previous draw Performed By: #### 0 0121 ####[facility] [facility].[address] Neutrophils/100 WBC Auto (Bld) 60.2 % Normal 40.0-72.0 [facility] Comment on above: Order Comment: No: D o not add to previous draw Performed By: #### 0 0121 ####[facility] [facility].[address] Nucleated RBC/100 WBC Ratio (Bld) 0 % Normal 0-0 [facility] Comment on above: Order Comment: No: D o not add to previous draw Performed By: #### 0 0121 ####[facility] [facility] [place] [address], [facility] PLAT CNT 435 10*3/uL High 150-400 [facility] Comment on above: Order Comment: No: D o not add to previous draw Performed By: #### 0 0121 ####[facility] [place] [address], [facility] RBC Auto #/vol (Bld) 3.07 10*6/uL Low 3.80-5.00 [facility] Comment on above: Order Comment: No: D o not add to previous draw Performed By: #### 0 0121 ####[facility] [facility] [place] [address], [facility] WBC Auto #/vol (Bld) 11.73 10*3/uL High 4.00-10.60 [facility] Comment on above: Order Comment: No: D o not add to previous draw Performed By: #### 0 0121 ####[facility] [facility] [place] [address], [facility] MAGNESIUM BLOODon 07-13-2018 Magnesium mass conc 1.8 mg/dL Low 1.9-2.7 [facility] Comment on above: Order Comment: No: D o not add to previous draw Performed By: #### 0 0121 ####[facility] [facility] [place] [address], [facility] PHOSPHORUS BLOODon 8 Phosphate mass conc 3.8 mg/dL Normal 2.5-5.0 [facility] Comment on above: Order Comment: No: D o not add to previous draw Performed By: #### 0 0121 ####[facility] [facility].[address] POC GLUCOSE LABon 07-13-2018 Glucose mass conc 147 mg/dL High 70-100 [facility] Comment on above: Performed By: #### 0 0121 ####[facility] [facility] [place] [address], [facility] Glucose mass conc 188 mg/dL High 70-100 [facility] Comment on above: Performed By: #### 0 0121 ####[facility] [facility] [place] [address], [facility] Glucose mass conc 150 mg/dL High 70-100 [facility] Comment on above: Performed By: #### 0 0121 ####[facility] [facility] [place] [address], [facility] Glucose mass conc 139 mg/dL High 70-100 [facility] Comment on above: Performed By: #### 0 0121 ####[facility] [place] [address], [facility] BASIC METABOLIC PANELon 09-0 Calcium mass conc 9.7 mg/dL Normal 8.6-10.3 [facility] Comment on above: Order Comment: No: D o not add to previous draw Performed By: #### 0 0121 ####[facility] [address], [facility] Chloride molar conc 103 mmol/L Normal 98-107 [facility] Comment on above: Order Comment: No: D o not add to previous draw Performed By: #### 0 0121 ####[facility] [place] [address], [facility] CO2 molar conc 18 mmol/L Low 21-31 [facility] Comment on above: Order Comment: No: D o not add to previous draw Performed By: #### 0 0121 ####[facility] [place] [address], [facility] Creatinine mass conc 1.33 mg/dL High 0.60-1.20 [facility] Comment on above: Order Comment: No: D o not add to previous draw Performed By: #### 0 0121 ####[facility] [facility] [address], [facility] GFR/1.73 sq M predicted among blacks MDRD vol rate/area (S/P/Bld) 47 ml/min/1.73sq m Abnormal >60 The [facility] Comment on above: Order Comment: No: D o not add to previous draw Result Comment: Calc ulation may not be valid for patients over 70 years Performed By: #### 0 0121 ####[facility] [address], [facility] GFR/1.73 sq M predicted among non-blacks MDRD vol rate/area (S/P/Bld) 39 ml/min/1.73sq m Abnormal >60 The [facility] Comment on above: Order Comment: No: D o not add to previous draw Result Comment: Calc ulation may not be valid for patients over 70 years Performed By: #### 0 0121 ####[facility]3000 [facility].[address] Glucose mass conc 133 mg/dL High 70-100 The [facility] Comment on above: Order Comment: No: D o not add to previous draw Performed By: #### 0 0121 ####[facility]3000 [facility].[address] Potassium molar conc 5.2 mmol/L High 3.5-5.1 The [facility] Comment on above: Order Comment: No: D o not add to previous draw Performed By: #### 0 0121 ####[facility]3000 [facility].[address] Sodium molar conc 131 mmol/L Low 136-145 The [facility] Comment on above: Order Comment: No: D o not add to previous draw Performed By: #### 0 0121 ####[facility]3000 [facility].[address] Urea nitrogen mass conc 31 mg/dL High 7-25 The [facility] Comment on above: Order Comment: No: D o not add to previous draw Performed By: #### 0 0121 ####[facility] [facility] [place] [place] [address], [facility] CBC W/DIFFon 07-12-2018 ABS BASOPHILS 0.1 10*3/uL Normal 0.0-0.2 The [facility] Comment on above: Order Comment: No: D o not add to previous draw Performed By: #### 0 0121 ####[facility] [facility] [place] [address], [place] ABS IMM GRANS 1.2 10*3/uL High 0.0-0.2 The [facility] Comment on above: Order Comment: No: D o not add to previous draw Performed By: #### 0 0121 ####[facility] [facility] [place] [address], [facility] ABS NEUTROPHILS 7.2 10*3/uL Normal 1.6-7.6 The [facility] Comment on above: Order Comment: No: D o not add to previous draw Performed By: #### 0 0121 ####[facility]3000 [facility] [place] [place] [address], [facility] Basophils Auto #/vol (Bld) 0.5 % Normal 0.0-1.0 The [facility] Comment on above: Order Comment: No: D o not add to previous draw Performed By: #### 0 0121 ####[facility] [facility] [place] [address], [facility] Eosinophils Auto #/vol (Bld) 0.3 10*3/uL Normal 0.0-0.5 The [facility] Comment on above: Order Comment: No: D o not add to previous draw Performed By: #### 0 0121 ####[facility]3000 [facility].[address] Eosinophils/100 WBC Auto (Bld) 2.3 % Normal 0.0-6.0 The [facility] Comment on above: Order Comment: No: D o not add to previous draw Performed By: #### 0 0121 ####[facility]3000 [facility].[address] Erythrocyte distribution width Auto Ratio (RBC) 14.2 % Normal 11.5-15.0 The [facility] Comment on above: Order Comment: No: D o not add to previous draw Performed By: #### 0 0121 ####[facility] Hematocrit Auto Volume Fraction (Bld) 36.0 % Normal 36.0-45.0 The [facility] Comment on above: Order Comment: No: D o not add to previous draw Performed By: #### 0 0121 ####[facility] [facility].[address] Hemoglobin mass conc (Bld) 11.2 g/dL Low 12.0-15.0 The [facility] Comment on above: Order Comment: No: D o not add to previous draw Performed By: #### 0 0121 ####[facility] IMM PLATELET FRAC 2.2 % Normal 0.8-6.3 The [facility] Comment on above: Order Comment: No: D o not add to previous draw Performed By: #### 0 0121 ####[facility] IMMATURE GRANS 9.1 % High 0.0-1.0 The [facility] Comment on above: Order Comment: No: D o not add to previous draw Performed By: #### 0 0121 ####[facility] Lymphocytes Auto #/vol (Bld) 3.0 10*3/uL Normal 1.2-4.0 The [facility] Comment on above: Order Comment: No: D o not add to previous draw Performed By: #### 0 0121 ####[facility]3000 [facility].[address] Lymphocytes/100 WBC Auto (Bld) 22.3 % Normal 20.0-45.0 The [facility] Comment on above: Order Comment: No: D o not add to previous draw Performed By: #### 0 0121 ####[facility] MCH Auto Entitic mass (RBC) 30.9 pg Normal 27.0-33.0 The [facility] Comment on above: Order Comment: No: D o not add to previous draw Performed By: #### 0 0121 ####[facility] MCHC Auto mass conc (RBC) 31.1 g/dL Low 32.0-35.0 The [facility] Comment on above: Order Comment: No: D o not add to previous draw Performed By: #### 0 0121 ####[facility] MCV Auto Entitic volume (RBC) 99.4 fL High 82.0-98.0 The [facility] Comment on above: Order Comment: No: D o not add to previous draw Performed By: #### 0 0121 ####[facility] Monocytes Auto #/vol (Bld) 1.5 10*3/uL High 0.1-1.0 The [facility] Comment on above: Order Comment: No: D o not add to previous draw Performed By: #### 0 0121 ####[facility] MONOS 11.3 % Normal 5.0-12.0 The [facility] Comment on above: Order Comment: No: D o not add to previous draw Performed By: #### 0 0121 ####[facility] Neutrophils/100 WBC Auto (Bld) 54.5 % Normal 40.0-72.0 The [facility] Comment on above: Order Comment: No: D o not add to previous draw Performed By: #### 0 0121 ####[facility] Nucleated RBC/100 WBC Ratio (Bld) 0 % Normal 0-0 The [facility] Comment on above: Order Comment: No: D o not add to previous draw Performed By: #### 0 0121 ####[facility] [address], [facility] PLAT CNT 425 10*3/uL High 150-400 The [facility] Comment on above: Order Comment: No: D o not add to previous draw Performed By: #### 0 0121 ####[facility] RBC Auto #/vol (Bld) 3.62 10*6/uL Low 3.80-5.00 The [facility] Comment on above: Order Comment: No: D o not add to previous draw Performed By: #### 0 0121 ####[facility] [facility] [place] [address], [facility] WBC Auto #/vol (Bld) 13.29 10*3/uL High 4.00-10.60 The [facility] Comment on above: Order Comment: No: D o not add to previous draw Performed By: #### 0 0121 ####[facility]3000 [facility].[address] MAGNESIUM BLOODon 07-12-2018 Magnesium mass conc 2.1 mg/dL Normal 1.9-2.7 The [facility] Comment on above: Order Comment: No: D o not add to previous draw Performed By: #### 0 0121 ####[facility] [facility] [place] [address], [facility] PHOSPHORUS BLOODon 8 Phosphate mass conc 4.6 mg/dL Normal 2.5-5.0 The [facility] Comment on above: Order Comment: No: D o not add to previous draw Performed By: #### 0 0121 ####[facility] POC GLUCOSE LABon 07-12-2018 Glucose mass conc 145 mg/dL High 70-[address] [facility] Comment on above: Performed By: #### 0 0121 ####[facility] [place] [address], [facility] Glucose mass conc 184 mg/dL High 70-100 The [facility] Comment on above: Performed By: #### 0 0121 ####[facility] [facility] [place] [address], [facility] Glucose mass conc 134 mg/dL High 70-100 The [facility] Comment on above: Performed By: #### 0 0121 ####[facility] [place] [address], [facility] Glucose mass conc 168 mg/dL High 70-100 The [facility] Comment on above: Performed By: #### 0 0121 ####[facility] [place] [address], [facility] ABDOMEN SERIES W CHESTon ABDOMEN SERIES W CHEST [facility] ShawDepartment of [address] [place] [address] Stacy ent Name: VIDHYA GIORDANO : 1940Sex: FAge: Race: WhiteMRN: [id number]. Location: [id number] Status: IVisit #: [id number] Date: 07/11/2018 11:25:00 AMCompleted Date: 07/11/2018 01:43 PMRequesting Provider: ROSIBEL PERRY Attending Provider: MEG ABEBE Report Copy To: Signs & Symptoms: Post OPHistory: Patient history not availableComments: R/O ObstructionExam: ABDOMEN SERIES W CHESTAccession #: [id number] ===ABDOMEN SERIES W CHEST 07/11/2018 1:43 PM [...] obstruction. Electronically signed by:Nora Sethi. Transcribed by: [email or web address], User Resident: Electronically Signed by: NORA SETHI @ 07/12/2018 07:26 AM Normal The [facility] Comment on above: Order Comment: R/O O bstruction BASIC METABOLIC PANELon Calcium mass conc 10.2 mg/dL Normal 8.6-10.3 The [facility] Comment on above: Order Comment: No: D o not add to previous draw Performed By: #### 0 0121 ####[facility] [facility] [place] [address], [facility] Chloride molar conc 102 mmol/L Normal 98-107 The [facility] Comment on above: Order Comment: No: D o not add to previous draw Performed By: #### 0 0121 ####[facility] [place] [address], [facility] CO2 molar conc 21 mmol/L Normal 21-31 The [facility] Comment on above: Order Comment: No: D o not add to previous draw Performed By: #### 0 0121 ####[facility] [place] [address], [facility] Creatinine mass conc 1.30 mg/dL High 0.60-1.20 The [facility] Comment on above: Order Comment: No: D o not add to previous draw Performed By: #### 0 0121 ####[facility] [facility] [place] [address], [facility] GFR/1.73 sq M predicted among blacks MDRD vol rate/area (S/P/Bld) 47 ml/min/1.73sq m Abnormal >60 The [facility] Comment on above: Order Comment: No: D o not add to previous draw Result Comment: Calc ulation may not be valid for patients over 70 years Performed By: #### 0 0121 ####[facility] [facility] [place] [address], [facility] GFR/1.73 sq M predicted among non-blacks MDRD vol rate/area (S/P/Bld) 39 ml/min/1.73sq m Abnormal >60 The [facility] Comment on above: Order Comment: No: D o not add to previous draw Result Comment: Calc ulation may not be valid for patients over 70 years Performed By: #### 0 0121 ####[facility] [facility] [place] [address], [facility] Glucose mass conc 162 mg/dL High 70-100 The [facility] Comment on above: Order Comment: No: D o not add to previous draw Performed By: #### 0 0121 ####[facility] [facility] [place] [address], [facility] Potassium molar conc 5.6 mmol/L High 3.5-5.1 The [facility] Comment on above: Order Comment: No: D o not add to previous draw Performed By: #### 0 0121 ####[facility] [facility] [place] [address], [facility] Sodium molar conc 132 mmol/L Low 136-145 The [facility] Comment on above: Order Comment: No: D o not add to previous draw Performed By: #### 0 0121 ####[facility] Urea nitrogen mass conc 29 mg/dL High 7-25 The [facility] Comment on above: Order Comment: No: D o not add to previous draw Performed By: #### 0 0121 ####[facility] CBC COMPLETE BLOOD COUNTon 0 07-11-2018 Erythrocyte distribution width Auto Ratio (RBC) 14.1 % Normal 11.5-15.0 The [facility] Comment on above: Order Comment: This order is a replacement of the rejected order with accession [id number]. Performed By: #### 0 0121 ####[place] [address] Hematocrit Auto Volume Fraction (Bld) 33.4 % Low 36.0-45.0 The [facility] Comment on above: Order Comment: This order is a replacement of the rejected order with accession [id number]. Performed By: #### 0 0121 ####[place] [address] Hemoglobin mass conc (Bld) 10.5 g/dL Low 12.0-15.0 The [facility] Comment on above: Order Comment: This order is a replacement of the rejected order with accession [id number]. Performed By: #### 0 0121 ####[facility] MCH Auto Entitic mass (RBC) 30.3 pg Normal 27.0-33.0 The [facility] Comment on above: Order Comment: This order is a replacement of the rejected order with accession [id number]. Performed By: #### 0 0121 ####[facility] MCHC Auto mass conc (RBC) 31.4 g/dL Low 32.0-35.0 The [facility] Comment on above: Order Comment: This order is a replacement of the rejected order with accession [id number]. Performed By: #### 0 0121 ####[facility] MCV Auto Entitic volume (RBC) 96.5 fL Normal 82.0-98.0 The [facility] Comment on above: Order Comment: This order is a replacement of the rejected order with accession [id number]. Performed By: #### 0 0121 ####[place] [address] Nucleated RBC/100 WBC Ratio (Bld) 0 % Normal 0-0 The [facility] Comment on above: Order Comment: This order is a replacement of the rejected order with accession [id number]. Performed By: #### 0 0121 ####[facility] PLAT CNT 527 10*3/uL High 150-400 The [facility] Comment on above: Order Comment: This order is a replacement of the rejected order with accession [id number]. Performed By: #### 0 0121 ####[place] [address] RBC Auto #/vol (Bld) 3.46 10*6/uL Low 3.80-5.00 The [facility] Comment on above: Order Comment: This order is a replacement of the rejected order with accession [id number]. Performed By: #### 0 0121 ####[facility] WBC Auto #/vol (Bld) 15.56 10*3/uL High 4.00-10.60 The [facility] Comment on above: Order Comment: This order is a replacement of the rejected order with accession [id number]. Performed By: #### 0 0121 ####[facility] [facility] [place] [address], [facility] MAGNESIUM BLOODon 07-11-2018 Magnesium mass conc 1.7 mg/dL Low 1.9-2.7 The [facility] Comment on above: Order Comment: No: D o not add to previous draw Performed By: #### 0 0121 ####[facility] [facility] [place] [address], [facility] PHOSPHORUS BLOODon 8 Phosphate mass conc 4.6 mg/dL Normal 2.5-5.0 The [facility] Comment on above: Order Comment: No: D o not add to previous draw Performed By: #### 0 0121 ####[facility] [facility] [place] [address], [facility] POC GLUCOSE LABon 07-11-2018 Glucose mass conc 158 mg/dL High 70-100 The [facility] Comment on above: Performed By: #### 0 0121 ####[facility] [facility].[address] Glucose mass conc 204 mg/dL High 70-100 The [facility] Comment on above: Performed By: #### 0 0121 ####[facility] [facility] [place] [address], [facility] Glucose mass conc 186 mg/dL High 70-100 The [facility] Comment on above: Performed By: #### 0 0121 ####[facility] [facility].[address] *BLOOD CULTUREon 07-10-2018 Bacteria identified in Blood by Culture Clinical Report: (D) Specimen: BLOOD CULTURE Collected: 07/10/2018 11:19 Status: Final Last Updated: 07/16/2018 06:46 CULT RES (Final) No Growth Day 5 Normal The [facility] Comment on above: Performed By: #### 0 0121 ####[facility] [address], [facility] BASIC METABOLIC PANELon 09-0 Calcium mass conc 9.9 mg/dL Normal 8.6-10.3 The [facility] Comment on above: Order Comment: No: D o not add to previous draw Performed By: #### 0 0121 ####[facility] [place] [address], [facility] Chloride molar conc 101 mmol/L Normal 98-107 The [facility] Comment on above: Order Comment: No: D o not add to previous draw Performed By: #### 0 0121 ####[facility] [place] [address], [facility] CO2 molar conc 22 mmol/L Normal 21-31 The [facility] Comment on above: Order Comment: No: D o not add to previous draw Performed By: #### 0 0121 ####[facility] [address], [facility] Creatinine mass conc 1.18 mg/dL Normal 0.60-1.20 The [facility] Comment on above: Order Comment: No: D o not add to previous draw Performed By: #### 0 0121 ####[facility] [place] [address], [facility] GFR/1.73 sq M predicted among blacks MDRD vol rate/area (S/P/Bld) 53 ml/min/1.73sq m Abnormal >60 The [facility] Comment on above: Order Comment: No: D o not add to previous draw Result Comment: Calc ulation may not be valid for patients over 70 years Performed By: #### 0 0121 ####[facility] [address], [facility] GFR/1.73 sq M predicted among non-blacks MDRD vol rate/area (S/P/Bld) 45 ml/min/1.73sq m Abnormal >60 The [facility] Comment on above: Order Comment: No: D o not add to previous draw Result Comment: Calc ulation may not be valid for patients over 70 years Performed By: #### 0 0121 ####[facility] Glucose mass conc 212 mg/dL High 70-100 The [facility] Comment on above: Order Comment: No: D o not add to previous draw Performed By: #### 0 0121 ####[facility] Potassium molar conc 5.1 mmol/L Normal 3.5-5.1 The [facility] Comment on above: Order Comment: No: D o not add to previous draw Performed By: #### 0 0121 ####[facility] Sodium molar conc 132 mmol/L Low 136-145 The [facility] Comment on above: Order Comment: No: D o not add to previous draw Performed By: #### 0 0121 ####[facility] Urea nitrogen mass conc 28 mg/dL High 7-25 The [facility] Comment on above: Order Comment: No: D o not add to previous draw Performed By: #### 0 0121 ####[facility] CBC W/DIFFon 07-10-2018 ABS BASOPHILS 0.2 10*3/uL Normal 0.0-0.2 The [facility] Comment on above: Order Comment: No: D o not add to previous draw Performed By: #### 0 0121 ####[facility] ABS IMM GRANS 2.1 10*3/uL High 0.0-0.2 The [facility] Comment on above: Order Comment: No: D o not add to previous draw Performed By: #### 0 0121 ####[facility] [facility] [place] [address], [facility] ABS NEUTROPHILS 13.5 10*3/uL High 1.6-7.6 The [facility] Comment on above: Order Comment: No: D o not add to previous draw Performed By: #### 0 0121 ####[facility] [facility] [place] [address], [facility] Basophils Auto #/vol (Bld) 1.0 % Normal 0.0-1.0 The [facility] Comment on above: Order Comment: No: D o not add to previous draw Performed By: #### 0 0121 ####[facility] [place] [address], [facility] Eosinophils Auto #/vol (Bld) 0.2 10*3/uL Normal 0.0-0.5 The [facility] Comment on above: Order Comment: No: D o not add to previous draw Performed By: #### 0 0121 ####[facility] [place] [address], [facility] Eosinophils/100 WBC Auto (Bld) 1.0 % Normal 0.0-6.0 The [facility] Comment on above: Order Comment: No: D o not add to previous draw Performed By: #### 0 0121 ####[facility]3000 [facility].[address] Erythrocyte distribution width Auto Ratio (RBC) 13.9 % Normal 11.5-15.0 The [facility] Comment on above: Order Comment: No: D o not add to previous draw Performed By: #### 0 0121 ####[facility] Hematocrit Auto Volume Fraction (Bld) 32.3 % Low 36.0-45.0 The [facility] Comment on above: Order Comment: No: D o not add to previous draw Performed By: #### 0 0121 ####[facility] Hemoglobin mass conc (Bld) 10.4 g/dL Low 12.0-15.0 The [facility] Comment on above: Order Comment: No: D o not add to previous draw Performed By: #### 0 0121 ####[facility] Lymphocytes Auto #/vol (Bld) 2.8 10*3/uL Normal 1.2-4.0 The [facility] Comment on above: Order Comment: No: D o not add to previous draw Performed By: #### 0 0121 ####[facility] Lymphocytes/100 WBC Auto (Bld) 15.0 % Low 20.0-45.0 The [facility] Comment on above: Order Comment: No: D o not add to previous draw Performed By: #### 0 0121 ####[facility] MCH Auto Entitic mass (RBC) 30.6 pg Normal 27.0-33.0 The [facility] Comment on above: Order Comment: No: D o not add to previous draw Performed By: #### 0 0121 ####[facility] [place] [address] MCHC Auto mass conc (RBC) 32.2 g/dL Normal 32.0-35.0 The [facility] Comment on above: Order Comment: No: D o not add to previous draw Performed By: #### 0 0121 ####[place] [address] MCV Auto Entitic volume (RBC) 95.0 fL Normal 82.0-98.0 The [facility] Comment on above: Order Comment: No: D o not add to previous draw Performed By: #### 0 0121 ####[facility] [facility] [place] [address], [facility] METAMYELO 4.0 % High 0.0-0.0 The [facility] Comment on above: Order Comment: No: D o not add to previous draw Performed By: #### 0 0121 ####[facility] [facility] [place] [address], [facility] Monocytes Auto #/vol (Bld) 0.9 10*3/uL Normal 0.1-1.0 The [facility] Comment on above: Order Comment: No: D o not add to previous draw Performed By: #### 0 0121 ####[facility] [facility] [place] [place] [address], [facility] MONOS 5.0 % Normal 5.0-12.0 The [facility] Comment on above: Order Comment: No: D o not add to previous draw Performed By: #### 0 0121 ####[facility] [facility] [place] [address], [facility] MYELOS 2.0 % High .0-.0 The [facility] Comment on above: Order Comment: No: D o not add to previous draw Performed By: #### 0 0121 ####[facility] [facility] [place] [place] [address], [facility] Neutrophils/100 WBC Auto (Bld) 72.0 % Normal 40.0-72.0 The [facility] Comment on above: Order Comment: No: D o not add to previous draw Performed By: #### 0 0121 ####[facility] [facility] [place] [place] [address], [facility] Nucleated RBC/100 WBC Ratio (Bld) 0 % Normal 0-0 The [facility] Comment on above: Order Comment: No: D o not add to previous draw Performed By: #### 0 0121 ####[facility] PLAT CNT 530 10*3/uL High 150-400 The [facility] Comment on above: Order Comment: No: D o not add to previous draw Performed By: #### 0 0121 ####[facility] RBC Auto #/vol (Bld) 3.40 10*6/uL Low 3.80-5.00 The [facility] Comment on above: Order Comment: No: D o not add to previous draw Performed By: #### 0 0121 ####[facility] WBC Auto #/vol (Bld) 18.70 10*3/uL High 4.00-10.60 The [facility] Comment on above: Order Comment: No: D o not add to previous draw Performed By: #### 0 0121 ####[address] ABDOMEN AND PELVIS WO CON TRASTon 07-10-2018 CT ABDOMEN AND PELVIS WO CONTRAST [facility] Shaw[facility] Vhaunvtg[address] [place] [address] Stacy ent Name: VIDHYA GIORDANO : 1940Sex: FAge: Race: WhiteMRN: [id number]. Location: [id number] Status: IVisit #: [id number] Date: 07/10/2018 11:10:00 AMCompleted Date: 07/10/2018 02:44 PMRequesting Provider: MEG ABEBE Attending Provider: MEG ABEBE Report Copy To: Signs & Symptoms: AbscessHistory: Patient history not availableComments: Other, leukocytosis. need oral contrastExam: CT ABDOMEN AND PELVIS WO CONTRASTAccession #: [id number] ===CT ABDOMEN AND PELVIS WO CONTRAST 07/10/2018 [...] findings. Electronically signed by:Rhoda Nicole. Transcribed by: [email or web address], User Resident: WU TURNERElectronically Signed by: RHODA NICOLE @ 07/12/2018 10:55 AMI personally read this/these film(s) with this resident Normal The [facility] Comment on above: Order Comment: Other , leukocytosis. need oral contrast MAGNESIUM BLOODon 07-10-2018 Magnesium mass conc 1.8 mg/dL Low 1.9-2.7 The [facility] Comment on above: Order Comment: No: D o not add to previous draw Performed By: #### 0 0121 ####[facility] [place].[address] PHOSPHORUS BLOODon 8 Phosphate mass conc 4.4 mg/dL Normal 2.5-5.0 The [facility] Comment on above: Order Comment: No: D o not add to previous draw Performed By: #### 0 0121 ####[facility] [place] [address], [facility] POC GLUCOSE LABon 07-10-2018 Glucose mass conc 183 mg/dL High 70-100 The [facility] Comment on above: Performed By: #### 0 0121 ####[facility] [facility] [place] [address], [facility] Glucose mass conc 195 mg/dL High 70-100 The [facility] Comment on above: Performed By: #### 0 0121 ####[facility] [facility] [place] [address], [facility] Glucose mass conc 246 mg/dL High 70-100 The [facility] Comment on above: Performed By: #### 0 0121 ####[facility] [facility] [place] [address], [facility] Glucose mass conc 187 mg/dL High 70-100 The [facility] Comment on above: Performed By: #### 0 0121 ####[facility]3000 [facility].[address] *BLOOD CULTUREon 07-09-2018 Bacteria identified in Blood by Culture Clinical Report: (D) Specimen: BLOOD CULTURE Collected: 07/09/2018 17:53 Status: Final Last Updated: 07/15/2018 07:43 CULT RES (Final) No Growth Day 5 Normal The [facility] Comment on above: Performed By: #### 0 0121 ####[facility]3000 [facility].[address] BASIC METABOLIC PANELon Calcium mass conc 9.2 mg/dL Normal 8.6-10.3 The [facility] Comment on above: Order Comment: No: D o not add to previous draw Performed By: #### 0 0121 ####[facility] Chloride molar conc 102 mmol/L Normal 98-107 The [facility] Comment on above: Order Comment: No: D o not add to previous draw Performed By: #### 0 0121 ####[facility] [place] [address], [facility] CO2 molar conc 25 mmol/L Normal 21-31 The [facility] Comment on above: Order Comment: No: D o not add to previous draw Performed By: #### 0 0121 ####[facility] [place] [address], [facility] Creatinine mass conc 0.95 mg/dL Normal 0.60-1.20 The [facility] Comment on above: Order Comment: No: D o not add to previous draw Performed By: #### 0 0121 ####[facility] [facility] [place] [address], [facility] GFR/1.73 sq M predicted among blacks MDRD vol rate/area (S/P/Bld) mL/min/{1.73_m2} Normal >60 The [facility] Comment on above: Order Comment: No: D o not add to previous draw Result Comment: Calc ulation may not be valid for patients over 70 years Performed By: #### 0 0121 ####[facility] [facility] [place] [address], [facility] GFR/1.73 sq M predicted among non-blacks MDRD vol rate/area (S/P/Bld) 56 ml/min/1.73sq m Abnormal >60 The [facility] Comment on above: Order Comment: No: D o not add to previous draw Result Comment: Calc ulation may not be valid for patients over 70 years Performed By: #### 0 0121 ####[facility] [place] [address], [facility] Glucose mass conc 178 mg/dL High 70-100 The [facility] Comment on above: Order Comment: No: D o not add to previous draw Performed By: #### 0 0121 ####[facility] [place] [address], [facility] Potassium molar conc 4.5 mmol/L Normal 3.5-5.1 The [facility] Comment on above: Order Comment: No: D o not add to previous draw Performed By: #### 0 0121 ####[facility] Sodium molar conc 131 mmol/L Low 136-145 The [facility] Comment on above: Order Comment: No: D o not add to previous draw Performed By: #### 0 0121 ####[facility] [place] [address] Urea nitrogen mass conc 28 mg/dL High 7-25 The [facility] Comment on above: Order Comment: No: D o not add to previous draw Performed By: #### 0 0121 ####[place] [address] CBC W/DIFFon 07-09-2018 ABS BASOPHILS 0.0 10*3/uL Normal 0.0-0.2 The [facility] Comment on above: Order Comment: No: D o not add to previous draw Performed By: #### 0 0121 ####[place] [address] ABS NEUTROPHILS 12.4 10*3/uL High 1.6-7.6 The [facility] Comment on above: Order Comment: No: D o not add to previous draw Performed By: #### 0 0121 ####[facility] Basophils Auto #/vol (Bld) 0.0 % Normal 0.0-1.0 The [facility] Comment on above: Order Comment: No: D o not add to previous draw Performed By: #### 0 0121 ####[facility] Eosinophils Auto #/vol (Bld) 0.3 10*3/uL Normal 0.0-0.5 The [facility] Comment on above: Order Comment: No: D o not add to previous draw Performed By: #### 0 0121 ####[facility] Eosinophils/100 WBC Auto (Bld) 1.8 % Normal 0.0-6.0 The [facility] Comment on above: Order Comment: No: D o not add to previous draw Performed By: #### 0 0121 ####[facility] Erythrocyte distribution width Auto Ratio (RBC) 14.0 % Normal 11.5-15.0 The [facility] Comment on above: Order Comment: No: D o not add to previous draw Performed By: #### 0 0121 ####[facility] GIANT PLATELETS Present Normal The [facility] Comment on above: Order Comment: No: D o not add to previous draw Performed By: #### 0 0121 ####[facility] Hematocrit Auto Volume Fraction (Bld) 30.0 % Low 36.0-45.0 The [facility] Comment on above: Order Comment: No: D o not add to previous draw Performed By: #### 0 0121 ####[facility]3000 [facility].[address] Hemoglobin mass conc (Bld) 9.6 g/dL Low 12.0-15.0 The [facility] Comment on above: Order Comment: No: D o not add to previous draw Performed By: #### 0 0121 ####[facility] Lymphocytes Auto #/vol (Bld) 3.1 10*3/uL Normal 1.2-4.0 The [facility] Comment on above: Order Comment: No: D o not add to previous draw Performed By: #### 0 0121 ####[facility] Lymphocytes/100 WBC Auto (Bld) 17.4 % Low 20.0-45.0 The [facility] Comment on above: Order Comment: No: D o not add to previous draw Performed By: #### 0 0121 ####[facility] MCH Auto Entitic mass (RBC) 30.6 pg Normal 27.0-33.0 The [facility] Comment on above: Order Comment: No: D o not add to previous draw Performed By: #### 0 0121 ####[facility] MCHC Auto mass conc (RBC) 32.0 g/dL Normal 32.0-35.0 The [facility] Comment on above: Order Comment: No: D o not add to previous draw Performed By: #### 0 0121 ####[facility] MCV Auto Entitic volume (RBC) 95.5 fL Normal 82.0-98.0 The [facility] Comment on above: Order Comment: No: D o not add to previous draw Performed By: #### 0 0121 ####[facility] METAMYELO 1.8 % High 0.0-0.0 The [facility] Comment on above: Order Comment: No: D o not add to previous draw Performed By: #### 0 0121 ####[address] Monocytes Auto #/vol (Bld) 1.3 10*3/uL High 0.1-1.0 The [facility] Comment on above: Order Comment: No: D o not add to previous draw Performed By: #### 0 0121 ####[facility] [address], [facility] MONOS 7.4 % Normal 5.0-12.0 The [facility] Comment on above: Order Comment: No: D o not add to previous draw Performed By: #### 0 0121 ####[facility] [address], [facility] MYELOS 0.9 % High .0-.0 The [facility] Comment on above: Order Comment: No: D o not add to previous draw Performed By: #### 0 0121 ####[facility] [address], [facility] Neutrophils/100 WBC Auto (Bld) 70.7 % Normal 40.0-72.0 The [facility] Comment on above: Order Comment: No: D o not add to previous draw Performed By: #### 0 0121 ####[facility] NRBC SCAN Present Normal The [facility] Comment on above: Order Comment: No: D o not add to previous draw Performed By: #### 0 0121 ####[facility] [place] [address], [facility] Nucleated RBC/100 WBC Ratio (Bld) 0 % Normal 0-0 The [facility] Comment on above: Order Comment: No: D o not add to previous draw Performed By: #### 0 0121 ####[facility] [address], [facility] PLAT CNT 430 10*3/uL High 150-400 The [facility] Comment on above: Order Comment: No: D o not add to previous draw Performed By: #### 0 0121 ####[facility] [address], [facility] RBC Auto #/vol (Bld) 3.14 10*6/uL Low 3.80-5.00 The [facility] Comment on above: Order Comment: No: D o not add to previous draw Performed By: #### 0 0121 ####[facility] [facility].[address] WBC Auto #/vol (Bld) 17.58 10*3/uL High 4.00-10.60 The [facility] Comment on above: Order Comment: No: D o not add to previous draw Performed By: #### 0 0121 ####[facility] [facility] [place] [address], [facility] MAGNESIUM BLOODon 07-09-2018 Magnesium mass conc 1.8 mg/dL Low 1.9-2.7 The [facility] Comment on above: Order Comment: No: D o not add to previous draw Performed By: #### 0 0121 ####[facility] [facility] [place] [address], [facility] PHOSPHORUS BLOODon 8 Phosphate mass conc 4.1 mg/dL Normal 2.5-5.0 The [facility] Comment on above: Order Comment: No: D o not add to previous draw Performed By: #### 0 0121 ####[facility] [facility].[address] POC GLUCOSE LABon 07-09-2018 Glucose mass conc 172 mg/dL High 70-100 The [facility] Comment on above: Performed By: #### 0 0121 ####[facility] [facility] [place] [address], [facility] Glucose mass conc 179 mg/dL High 70-100 The [facility] Comment on above: Performed By: #### 0 0121 ####[facility] [facility] [place] [address], [facility] Glucose mass conc 168 mg/dL High 70-100 The [facility] Comment on above: Performed By: #### 0 0121 ####[facility] [id number] [place] [address], [facility] Glucose mass conc 147 mg/dL High 70-100 The [facility] Comment on above: Performed By: #### 0 0121 ####[facility] [facility] [address], [facility] PORTABLE CHEST 1 VIEWon PORTABLE CHEST 1 VIEW [facility] of Orzptaxgm[address] [place] [address] Stacy ent Name: VIDHYA GIORDANO : 1940Sex: FAge: Race: WhiteMRN: [id number]. Location: [id number] Status: IVisit #: [id number] Date: 07/09/2018 5:25:00 PMCompleted Date: 07/09/2018 06:13 PMRequesting Provider: MARLIN DELGADO Attending Provider: MEG ABEBE Report Copy To: Signs & Symptoms: Elevated WBCHistory: Patient history not availableComments: R/O PneumoniaExam: PORTABLE CHEST 1 VIEWAccession #: [id number] ===PORTABLE CHEST 1 VIEW 07/09/2018 6:13 PM [...] findings. Electronically signed by:Rhoda Nicole. Transcribed by: [email or web address], User Resident: WU TURNERElectronically Signed by: RHODA NICOLE @ 07/10/2018 12:40 PMI personally read this/these film(s) with this resident Normal The [facility] Comment on above: Order Comment: R/O P neumonia URINALYSIS REFLEXon 07-09-20 18 APPEARANCE CLEAR Normal CLEAR The [facility] Comment on above: Order Comment: No: D o not add to previous drawCriteria for reflexing a culture was not met. Please call the lab [id number] within 24 hours of collection time if culture is needed Performed By: #### 0 0121 ####[facility] [facility] [place] [address], [facility] BILIRUBIN Negative Normal NEGATIVE The [facility] Comment on above: Order Comment: No: D o not add to previous drawCriteria for reflexing a culture was not met. Please call the lab [id number] within 24 hours of collection time if culture is needed Performed By: #### 0 0121 ####[facility] [place] [address], [place] BLOOD Negative Normal NEGATIVE The [facility] Comment on above: Order Comment: No: D o not add to previous drawCriteria for reflexing a culture was not met. Please call the lab [id number] within 24 hours of collection time if culture is needed Performed By: #### 0 0121 ####[facility] [place] [address], [place] COLOR YELLOW Normal YELLOW The [facility] Comment on above: Order Comment: No: D o not add to previous drawCriteria for reflexing a culture was not met. Please call the lab [phone] within 24 hours of collection time if culture is needed Performed By: #### 0 0121 ####[facility] [place] [address], [place] GLUCOSE Negative Normal NEGATIVE The [facility] Comment on above: Order Comment: No: D o not add to previous drawCriteria for reflexing a culture was not met. Please call the lab [phone] within 24 hours of collection time if culture is needed Performed By: #### 0 0121 ####[facility] [facility] [place] [address], [facility] KETONE Negative Normal NEGATIVE The [facility] Comment on above: Order Comment: No: D o not add to previous drawCriteria for reflexing a culture was not met. Please call the lab [phone] within 24 hours of collection time if culture is needed Performed By: #### 0 0121 ####[facility] [place] [place] [address], [place] Negative Normal NEGATIVE The [facility] Comment on above: Order Comment: No: D o not add to previous drawCriteria for reflexing a culture was not met. Please call the lab [id number] within 24 hours of collection time if culture is needed Performed By: #### 0 0121 ####[facility] [place] [address], [place] MICRO NOT DONE negative chemical reactions unless requested in original order Normal The [facility] Comment on above: Order Comment: No: D o not add to previous drawCriteria for reflexing a culture was not met. Please call the lab [id number] within 24 hours of collection time if culture is needed Performed By: #### 0 0121 ####[facility] [place] [address], [place] NITRITE Negative Normal NEGATIVE [facility] Comment on above: Order Comment: No: D o not add to previous drawCriteria for reflexing a culture was not met. Please call the lab [id number] within 24 hours of collection time if culture is needed Performed By: #### 0 0121 ####[facility] [place] [address], [facility] PH 5.0 Normal 5.0-8.0 [facility] Comment on above: Order Comment: No: D o not add to previous drawCriteria for reflexing a culture was not met. Please call the lab [id number] within 24 hours of collection time if culture is needed Performed By: #### 0 0121 ####[facility] [place] [address], [facility] Protein mass conc Negative Normal NEGATIVE [facility] Comment on above: Order Comment: No: D o not add to previous drawCriteria for reflexing a culture was not met. Please call the lab [id number] within 24 hours of collection time if culture is needed Performed By: #### 0 0121 ####[facility] [place] [address], [facility] SPEC GRAV 1.009 Low 1.015-1.020 [facility] Comment on above: Order Comment: No: D o not add to previous drawCriteria for reflexing a culture was not met. Please call the lab [id number] within 24 hours of collection time if culture is needed Performed By: #### 0 0121 ####[facility] [facility] [place] [address], [facility] BASIC METABOLIC PANELon 08-3 Calcium mass conc 9.2 mg/dL Normal 8.6-10.3 [facility] Comment on above: Order Comment: No: D o not add to previous drawNo collection time noted on specimen or requisition. The collection timerecorded is the time of receipt in the lab. Performed By: #### 1 0070, 07670, 06472 ####[facility] [facility] [place] [address], [facility] Chloride molar conc 100 mmol/L Normal 98-107 [facility] Comment on above: Order Comment: No: D o not add to previous drawNo collection time noted on specimen or requisition. The collection timerecorded is the time of receipt in the lab. Performed By: #### 1 0070, 56219, 14309 ####[facility] [facility] [place] [address], [facility] CO2 molar conc 26 mmol/L Normal 21-31 [facility] Comment on above: Order Comment: No: D o not add to previous drawNo collection time noted on specimen or requisition. The collection timerecorded is the time of receipt in the lab. Performed By: #### 1 0070, 36601, 18422 ####[facility] [place] [address], [facility] Creatinine mass conc 0.92 mg/dL Normal 0.60-1.20 [facility] Comment on above: Order Comment: No: D o not add to previous drawNo collection time noted on specimen or requisition. The collection timerecorded is the time of receipt in the lab. Performed By: #### 1 0070, 90655, 58621 ####[facility] [facility] [place] [address], [facility] GFR/1.73 sq M predicted among blacks MDRD vol rate/area (S/P/Bld) mL/min/{1.73_m2} Normal >60 [facility] Comment on above: Order Comment: No: D o not add to previous drawNo collection time noted on specimen or requisition. The collection timerecorded is the time of receipt in the lab. Result Comment: Calc ulation may not be valid for patients over 70 years Performed By: #### 1 0070, 96545, 55433 ####[facility] [facility] [place] [address], [facility] GFR/1.73 sq M predicted among non-blacks MDRD vol rate/area (S/P/Bld) 59 ml/min/1.73sq m Abnormal >60 [facility] Comment on above: Order Comment: No: D o not add to previous drawNo collection time noted on specimen or requisition. The collection timerecorded is the time of receipt in the lab. Result Comment: Calc ulation may not be valid for patients over 70 years Performed By: #### 1 0070, 80684, 66163 ####[facility] [facility] [place] [address], [facility] Glucose mass conc 391 mg/dL High 70-100 [facility] Comment on above: Order Comment: No: D o not add to previous drawNo collection time noted on specimen or requisition. The collection timerecorded is the time of receipt in the lab. Performed By: #### 1 0070, 94932, 58908 ####[facility] [facility] [place] [address], [facility] Potassium molar conc 5.1 mmol/L Normal 3.5-5.1 [facility] Comment on above: Order Comment: No: D o not add to previous drawNo collection time noted on specimen or requisition. The collection timerecorded is the time of receipt in the lab. Performed By: #### 1 0070, 39343, 15061 ####[facility] [facility] [place] [address], [facility] Sodium molar conc 130 mmol/L Low 136-145 [facility] Comment on above: Order Comment: No: D o not add to previous drawNo collection time noted on specimen or requisition. The collection timerecorded is the time of receipt in the lab. Performed By: #### 1 0070, 07939, 79838 ####[facility] [facility] [place] [address], [facility] Urea nitrogen mass conc 24 mg/dL Normal 7-25 [facility] Comment on above: Order Comment: No: D o not add to previous drawNo collection time noted on specimen or requisition. The collection timerecorded is the time of receipt in the lab. Performed By: #### 1 0, 39590, 89865 ####[facility] [facility].[address] CBC W/DIFFon 07-08-2018 ABS BASOPHILS 0.5 10*3/uL High 0.0-0.2 [facility] Comment on above: Order Comment: No: D o not add to previous drawNo collection time noted on specimen or requisition. The collection timerecorded is the time of receipt in the lab. Performed By: #### 1 0, 35404, 97283 ####[facility] [facility].[address] ABS NEUTROPHILS 12.1 10*3/uL High 1.6-7.6 [facility] Comment on above: Order Comment: No: D o not add to previous drawNo collection time noted on specimen or requisition. The collection timerecorded is the time of receipt in the lab. Performed By: #### 1 0, , 70099 ####[facility] [facility].[address] Basophils Auto #/vol (Bld) 2.8 % High 0.0-1.0 [facility] Comment on above: Order Comment: No: D o not add to previous drawNo collection time noted on specimen or requisition. The collection timerecorded is the time of receipt in the lab. Performed By: #### 1 0, , 91279 ####[facility] [facility].[address] Eosinophils Auto #/vol (Bld) 0.1 10*3/uL Normal 0.0-0.5 [facility] Comment on above: Order Comment: No: D o not add to previous drawNo collection time noted on specimen or requisition. The collection timerecorded is the time of receipt in the lab. Performed By: #### 1 0, 54085, 09966 ####[facility] [facility].[address] Eosinophils/100 WBC Auto (Bld) 0.9 % Normal 0.0-6.0 [facility] Comment on above: Order Comment: No: D o not add to previous drawNo collection time noted on specimen or requisition. The collection timerecorded is the time of receipt in the lab. Performed By: #### 1 0070, 96014, 72765 ####[facility] Erythrocyte distribution width Auto Ratio (RBC) 13.7 % Normal 11.5-15.0 [facility] Comment on above: Order Comment: No: D o not add to previous drawNo collection time noted on specimen or requisition. The collection timerecorded is the time of receipt in the lab. Performed By: #### 1 0070, 51842, 49608 ####[facility] [facility].[address] Hematocrit Auto Volume Fraction (Bld) 30.4 % Low 36.0-45.0 [facility] Comment on above: Order Comment: No: D o not add to previous drawNo collection time noted on specimen or requisition. The collection timerecorded is the time of receipt in the lab. Performed By: #### 1 0070, 65622, 72593 ####[facility] Hemoglobin mass conc (Bld) 9.7 g/dL Low 12.0-15.0 [facility] Comment on above: Order Comment: No: D o not add to previous drawNo collection time noted on specimen or requisition. The collection timerecorded is the time of receipt in the lab. Performed By: #### 1 0070, 55792, 81650 ####[facility] [facility].[address] Lymphocytes Auto #/vol (Bld) 1.5 10*3/uL Normal 1.2-4.0 [facility] Comment on above: Order Comment: No: D o not add to previous drawNo collection time noted on specimen or requisition. The collection timerecorded is the time of receipt in the lab. Performed By: #### 1 0070, 23385, 60578 ####[facility] Lymphocytes/100 WBC Auto (Bld) 9.2 % Low 20.0-45.0 [facility] Comment on above: Order Comment: No: D o not add to previous drawNo collection time noted on specimen or requisition. The collection timerecorded is the time of receipt in the lab. Performed By: #### 1 0070, 63422, 45368 ####[facility] [place] [address] MCH Auto Entitic mass (RBC) 30.7 pg Normal 27.0-33.0 [facility] Comment on above: Order Comment: No: D o not add to previous drawNo collection time noted on specimen or requisition. The collection timerecorded is the time of receipt in the lab. Performed By: #### 1 0070, 40078, 53156 ####[address] MCHC Auto mass conc (RBC) 31.9 g/dL Low 32.0-35.0 [facility] Comment on above: Order Comment: No: D o not add to previous drawNo collection time noted on specimen or requisition. The collection timerecorded is the time of receipt in the lab. Performed By: #### 1 0070, 36378, 80077 ####[facility] MCV Auto Entitic volume (RBC) 96.2 fL Normal 82.0-98.0 [facility] Comment on above: Order Comment: No: D o not add to previous drawNo collection time noted on specimen or requisition. The collection timerecorded is the time of receipt in the lab. Performed By: #### 1 0070, 82047, 13891 ####[facility] [place] [address], [facility] Monocytes Auto #/vol (Bld) 1.9 10*3/uL High 0.1-1.0 [facility] Comment on above: Order Comment: No: D o not add to previous drawNo collection time noted on specimen or requisition. The collection timerecorded is the time of receipt in the lab. Performed By: #### 1 0, , 42031 ####[facility] [facility].[address] MONOS 11.9 % Normal 5.0-12.0 [facility] Comment on above: Order Comment: No: D o not add to previous drawNo collection time noted on specimen or requisition. The collection timerecorded is the time of receipt in the lab. Performed By: #### 1 0, , 58676 ####[facility] [facility].[address] Neutrophils/100 WBC Auto (Bld) 75.2 % High 40.0-72.0 [facility] Comment on above: Order Comment: No: D o not add to previous drawNo collection time noted on specimen or requisition. The collection timerecorded is the time of receipt in the lab. Performed By: #### 1 0, , 58765 ####[facility] [facility].[address] Nucleated RBC/100 WBC Ratio (Bld) 0 % Normal 0-0 [facility] Comment on above: Order Comment: No: D o not add to previous drawNo collection time noted on specimen or requisition. The collection timerecorded is the time of receipt in the lab. Performed By: #### 1 0, 69178, 99929 ####[facility] [place] [address], [facility] PLAT CNT 354 10*3/uL Normal 150-400 [facility] Comment on above: Order Comment: No: D o not add to previous drawNo collection time noted on specimen or requisition. The collection timerecorded is the time of receipt in the lab. Performed By: #### 1 0070, 57665, 29829 ####[facility] RBC Auto #/vol (Bld) 3.16 10*6/uL Low 3.80-5.00 [facility] Comment on above: Order Comment: No: D o not add to previous drawNo collection time noted on specimen or requisition. The collection timerecorded is the time of receipt in the lab. Performed By: #### 1 0070, 74302, 41178 ####[facility] WBC Auto #/vol (Bld) 16.12 10*3/uL High 4.00-10.60 [facility] Comment on above: Order Comment: No: D o not add to previous drawNo collection time noted on specimen or requisition. The collection timerecorded is the time of receipt in the lab. Performed By: #### 1 0070, 23182, 39849 ####[facility] MAGNESIUM BLOODon 07-08-2018 Magnesium mass conc 2.3 mg/dL Normal 1.9-2.7 [facility] Comment on above: Order Comment: No: D o not add to previous drawNo collection time noted on specimen or requisition. The collection timerecorded is the time of receipt in the lab. Performed By: #### 1 0070, 66422, 95753 ####[facility] [place] [address], [facility] PHOSPHORUS BLOODon 8 Phosphate mass conc 4.7 mg/dL Normal 2.5-5.0 [facility] Comment on above: Order Comment: No: D o not add to previous drawNo collection time noted on specimen or requisition. The collection timerecorded is the time of receipt in the lab. Performed By: #### 1 0070, 50840, 08296 ####[facility] [facility].[address] POC GLUCOSE LABon 07-08-2018 Glucose mass conc 115 mg/dL High 70-100 [facility] Comment on above: Performed By: #### 0 0121 ####[facility] [facility] [place] [address], [facility] Glucose mass conc 183 mg/dL High 70-100 [facility] Comment on above: Performed By: #### 0 0121 ####[address] BASIC METABOLIC PANELon 06-10 Calcium mass conc 9.5 mg/dL Normal 8.6-10.3 [facility] Comment on above: Order Comment: No: D o not add to previous drawNo collection time noted on specimen or requisition. The collection timerecorded is the time of receipt in the lab. Performed By: #### 1 0070, 70701, 52941 ####[place] [address] [facility] [place] [address], [facility] Chloride molar conc 99 mmol/L Normal 98-107 [facility] Comment on above: Order Comment: No: D o not add to previous drawNo collection time noted on specimen or requisition. The collection timerecorded is the time of receipt in the lab. Performed By: #### 1 0070, 84012, 74680 ####[facility] [facility] [place] [address], [facility] CO2 molar conc 24 mmol/L Normal 21-31 [facility] Comment on above: Order Comment: No: D o not add to previous drawNo collection time noted on specimen or requisition. The collection timerecorded is the time of receipt in the lab. Performed By: #### 1 0070, 99368, 52935 ####[facility] [place] [address], [facility] Creatinine mass conc 0.90 mg/dL Normal 0.60-1.20 [facility] Comment on above: Order Comment: No: D o not add to previous drawNo collection time noted on specimen or requisition. The collection timerecorded is the time of receipt in the lab. Performed By: #### 1 0070, 08750, 31979 ####[facility] [place] [address], [facility] GFR/1.73 sq M predicted among blacks MDRD vol rate/area (S/P/Bld) mL/min/{1.73_m2} Normal >60 [facility] Comment on above: Order Comment: No: D o not add to previous drawNo collection time noted on specimen or requisition. The collection timerecorded is the time of receipt in the lab. Result Comment: Calc ulation may not be valid for patients over 70 years Performed By: #### 1 0070, 97192, 90899 ####[place] [address] [place] [address], [facility] GFR/1.73 sq M predicted among non-blacks MDRD vol rate/area (S/P/Bld) mL/min/{1.73_m2} Normal >60 [facility] Comment on above: Order Comment: No: D o not add to previous drawNo collection time noted on specimen or requisition. The collection timerecorded is the time of receipt in the lab. Result Comment: Calc ulation may not be valid for patients over 70 years Performed By: #### 1 0070, 50826, 99482 ####[place] [address] [place] [address], [facility] Glucose mass conc 207 mg/dL High 70-100 [facility] Comment on above: Order Comment: No: D o not add to previous drawNo collection time noted on specimen or requisition. The collection timerecorded is the time of receipt in the lab. Performed By: #### 1 0070, 17186, 86102 ####[facility] Potassium molar conc 4.4 mmol/L Normal 3.5-5.1 [facility] Comment on above: Order Comment: No: D o not add to previous drawNo collection time noted on specimen or requisition. The collection timerecorded is the time of receipt in the lab. Performed By: #### 1 0, 23712, 02231 ####[facility] [facility].[address] Sodium molar conc 131 mmol/L Low 136-145 [facility] Comment on above: Order Comment: No: D o not add to previous drawNo collection time noted on specimen or requisition. The collection timerecorded is the time of receipt in the lab. Performed By: #### 1 0, 83079, 53980 ####[place] [address] [facility].[address] Urea nitrogen mass conc 19 mg/dL Normal 7-25 [facility] Comment on above: Order Comment: No: D o not add to previous drawNo collection time noted on specimen or requisition. The collection timerecorded is the time of receipt in the lab. Performed By: #### 1 0, 79034, 26748 ####[facility] CALCIUM IONIZED CBGLon 07-07 IONIZED CALCIUM 1.42 mmol/L High 1.12-1.30 [facility] Comment on above: Performed By: #### 1 0070, 31750, 93772 ####[facility] [facility] [place] [address], [facility] CBC W/DIFFon 07-07-2018 ABS BASOPHILS 0.0 10*3/uL Normal 0.0-0.2 [facility] Comment on above: Order Comment: No: D o not add to previous drawNo collection time noted on specimen or requisition. The collection timerecorded is the time of receipt in the lab. Performed By: #### 1 0, , 72240 ####[facility] ABS NEUTROPHILS 12.3 10*3/uL High 1.6-7.6 [facility] Comment on above: Order Comment: No: D o not add to previous drawNo collection time noted on specimen or requisition. The collection timerecorded is the time of receipt in the lab. Performed By: #### 1 0, , 69391 ####[facility] Basophils Auto #/vol (Bld) 0.0 % Normal 0.0-1.0 [facility] Comment on above: Order Comment: No: D o not add to previous drawNo collection time noted on specimen or requisition. The collection timerecorded is the time of receipt in the lab. Performed By: #### 1 0, , 05357 ####[facility] Eosinophils Auto #/vol (Bld) 1.1 10*3/uL High 0.0-0.5 [facility] Comment on above: Order Comment: No: D o not add to previous drawNo collection time noted on specimen or requisition. The collection timerecorded is the time of receipt in the lab. Performed By: #### 1 0, , 62066 ####[facility] Eosinophils/100 WBC Auto (Bld) 6.4 % High 0.0-6.0 [facility] Comment on above: Order Comment: No: D o not add to previous drawNo collection time noted on specimen or requisition. The collection timerecorded is the time of receipt in the lab. Performed By: #### 1 0, , 51188 ####[facility] Erythrocyte distribution width Auto Ratio (RBC) 13.6 % Normal 11.5-15.0 [facility] Comment on above: Order Comment: No: D o not add to previous drawNo collection time noted on specimen or requisition. The collection timerecorded is the time of receipt in the lab. Performed By: #### 1 0070, 01261, 91787 ####[facility] GIANT PLATELETS Present Normal [facility] Comment on above: Order Comment: No: D o not add to previous drawNo collection time noted on specimen or requisition. The collection timerecorded is the time of receipt in the lab. Performed By: #### 1 0070, 32831, 65376 ####[facility] Hematocrit Auto Volume Fraction (Bld) 31.8 % Low 36.0-45.0 [facility] Comment on above: Order Comment: No: D o not add to previous drawNo collection time noted on specimen or requisition. The collection timerecorded is the time of receipt in the lab. Performed By: #### 1 0070, 01031, 77043 ####[facility] Hemoglobin mass conc (Bld) 10.1 g/dL Low 12.0-15.0 [facility] Comment on above: Order Comment: No: D o not add to previous drawNo collection time noted on specimen or requisition. The collection timerecorded is the time of receipt in the lab. Performed By: #### 1 0070, 69174, 94175 ####[facility] Lymphocytes Auto #/vol (Bld) 2.7 10*3/uL Normal 1.2-4.0 [facility] Comment on above: Order Comment: No: D o not add to previous drawNo collection time noted on specimen or requisition. The collection timerecorded is the time of receipt in the lab. Performed By: #### 1 0, 38741, 73231 ####[facility] Lymphocytes/100 WBC Auto (Bld) 15.4 % Low 20.0-45.0 [facility] Comment on above: Order Comment: No: D o not add to previous drawNo collection time noted on specimen or requisition. The collection timerecorded is the time of receipt in the lab. Performed By: #### 1 0, , 23219 ####[facility] MCH Auto Entitic mass (RBC) 31.3 pg Normal 27.0-33.0 [facility] Comment on above: Order Comment: No: D o not add to previous drawNo collection time noted on specimen or requisition. The collection timerecorded is the time of receipt in the lab. Performed By: #### 1 0, , 11310 ####[facility] MCHC Auto mass conc (RBC) 31.8 g/dL Low 32.0-35.0 [facility] Comment on above: Order Comment: No: D o not add to previous drawNo collection time noted on specimen or requisition. The collection timerecorded is the time of receipt in the lab. Performed By: #### 1 0, 35512, 62070 ####[facility]3000 [facility].[address] MCV Auto Entitic volume (RBC) 98.5 fL High 82.0-98.0 [facility] Comment on above: Order Comment: No: D o not add to previous drawNo collection time noted on specimen or requisition. The collection timerecorded is the time of receipt in the lab. Performed By: #### 1 0070, 94597, 23146 ####[facility] METAMYELO 0.9 % High 0.0-0.0 [facility] Comment on above: Order Comment: No: D o not add to previous drawNo collection time noted on specimen or requisition. The collection timerecorded is the time of receipt in the lab. Performed By: #### 1 0070, 53759, 92361 ####[facility] Monocytes Auto #/vol (Bld) 1.0 10*3/uL Normal 0.1-1.0 [facility] Comment on above: Order Comment: No: D o not add to previous drawNo collection time noted on specimen or requisition. The collection timerecorded is the time of receipt in the lab. Performed By: #### 1 0070, 62025, 22872 ####[address] MONOS 5.5 % Normal 5.0-12.0 [facility] Comment on above: Order Comment: No: D o not add to previous drawNo collection time noted on specimen or requisition. The collection timerecorded is the time of receipt in the lab. Performed By: #### 1 0070, 87174, 56270 ####[address] MYELOS 0.9 % High .0-.0 [facility] Comment on above: Order Comment: No: D o not add to previous drawNo collection time noted on specimen or requisition. The collection timerecorded is the time of receipt in the lab. Performed By: #### 1 0070, 55464, 77879 ####[place] [address] Neutrophils/100 WBC Auto (Bld) 70.9 % Normal 40.0-72.0 [facility] Comment on above: Order Comment: No: D o not add to previous drawNo collection time noted on specimen or requisition. The collection timerecorded is the time of receipt in the lab. Performed By: #### 1 0, 62506, 84419 ####[facility]3000 [facility].[address] Nucleated RBC/100 WBC Ratio (Bld) 0 % Normal 0-0 [facility] Comment on above: Order Comment: No: D o not add to previous drawNo collection time noted on specimen or requisition. The collection timerecorded is the time of receipt in the lab. Performed By: #### 1 0, , 01491 ####[facility]3000 [facility].[address] PLAT CNT 382 10*3/uL Normal 150-400 [facility] Comment on above: Order Comment: No: D o not add to previous drawNo collection time noted on specimen or requisition. The collection timerecorded is the time of receipt in the lab. Performed By: #### 1 0, , 02216 ####[facility]3000 [facility].[address] RBC Auto #/vol (Bld) 3.23 10*6/uL Low 3.80-5.00 [facility] Comment on above: Order Comment: No: D o not add to previous drawNo collection time noted on specimen or requisition. The collection timerecorded is the time of receipt in the lab. Performed By: #### 1 0, 36244, 35034 ####[facility]3000 [facility].[address] WBC Auto #/vol (Bld) 17.29 10*3/uL High 4.00-10.60 [facility] Comment on above: Order Comment: No: D o not add to previous drawNo collection time noted on specimen or requisition. The collection timerecorded is the time of receipt in the lab. Performed By: #### 1 0, 06179, 97618 ####[facility] [place] [address].[address] LIVER BATTERYon 07-07-2018 Albumin mass conc 3.0 g/dL Low 3.5-5.7 [facility] Comment on above: Order Comment: No: D o not add to previous drawNo collection time noted on specimen or requisition. The collection timerecorded is the time of receipt in the lab. Performed By: #### 1 0070, 69753, 31517 ####[facility] ALKALINE PHOSPH 99 IU/L Normal 34-104 [facility] Comment on above: Order Comment: No: D o not add to previous drawNo collection time noted on specimen or requisition. The collection timerecorded is the time of receipt in the lab. Performed By: #### 1 0070, 73733, 77146 ####[address] ALT enzyme act/vol 21 U/L Normal 7-52 [facility] Comment on above: Order Comment: No: D o not add to previous drawNo collection time noted on specimen or requisition. The collection timerecorded is the time of receipt in the lab. Performed By: #### 1 0070, 39703, 12558 ####[place] [address] AST enzyme act/vol 23 U/L Normal 13-39 [facility] Comment on above: Order Comment: No: D o not add to previous drawNo collection time noted on specimen or requisition. The collection timerecorded is the time of receipt in the lab. Performed By: #### 1 0070, 76406, 73971 ####[address] Bilirubin mass conc 0.5 mg/dL Normal 0.3-1.0 [facility] Comment on above: Order Comment: No: D o not add to previous drawNo collection time noted on specimen or requisition. The collection timerecorded is the time of receipt in the lab. Performed By: #### 1 0070, 10541, 61010 ####[facility] [facility] [place] [place] [address], [facility] Bilirubin.direct mass conc 0.3 mg/dL High 0.0-0.2 [facility] Comment on above: Order Comment: No: D o not add to previous drawNo collection time noted on specimen or requisition. The collection timerecorded is the time of receipt in the lab. Performed By: #### 1 0070, 65684, 54234 ####[facility] [facility].[address] Protein mass conc 6.5 g/dL Normal 6.0-8.3 [facility] Comment on above: Order Comment: No: D o not add to previous drawNo collection time noted on specimen or requisition. The collection timerecorded is the time of receipt in the lab. Performed By: #### 1 0, 51287, 06257 ####[facility] [facility] [place] [address], [facility] MAGNESIUM BLOODon 07-07-2018 Magnesium mass conc 1.6 mg/dL Low 1.9-2.7 [facility] Comment on above: Order Comment: No: D o not add to previous drawNo collection time noted on specimen or requisition. The collection timerecorded is the time of receipt in the lab. Performed By: #### 1 0070, 42168, 77433 ####[facility] [facility] [address], [facility] PHOSPHORUS BLOODon 8 Phosphate mass conc 3.4 mg/dL Normal 2.5-5.0 [facility] Comment on above: Order Comment: No: D o not add to previous drawNo collection time noted on specimen or requisition. The collection timerecorded is the time of receipt in the lab. Performed By: #### 1 0070, 12259, 12513 ####[facility] [facility] [place] [address], [place] POC GLUCOSE LABon 07-07-2018 Glucose mass conc 157 mg/dL High 70-100 [facility] Comment on above: Performed By: #### 1 0070, 58952, 00495 ####[facility] [place] [address], [place] Glucose mass conc 196 mg/dL High 70-100 [facility] Comment on above: Performed By: #### 1 0070, 34241, 84229 ####[facility] [place] [address], [place] Glucose mass conc 190 mg/dL High 70-100 [facility] Comment on above: Performed By: #### 1 0070, 94314, 30337 ####[facility] [place] [address], [place] Glucose mass conc 189 mg/dL High 70-100 [facility] Comment on above: Performed By: #### 1 0070, 76682, 90872 ####[facility] [facility] [place] [address], [facility] BASIC METABOLIC PANELon 06-09 Calcium mass conc 9.3 mg/dL Normal 8.6-10.3 [facility] Comment on above: Order Comment: No: D o not add to previous draw Performed By: #### 8 5499 ####[facility] [place] [address], [place] Chloride molar conc 100 mmol/L Normal 98-107 [facility] Comment on above: Order Comment: No: D o not add to previous draw Performed By: #### 8 6559 ####[facility] [place] [address], [place] CO2 molar conc 25 mmol/L Normal 21-31 [facility] Comment on above: Order Comment: No: D o not add to previous draw Performed By: #### 8 6059 ####[facility] [place] [address], [facility] Creatinine mass conc 0.97 mg/dL Normal 0.60-1.20 [facility] Comment on above: Order Comment: No: D o not add to previous draw Performed By: #### 8 5499 ####[facility] [place] [address], [facility] GFR/1.73 sq M predicted among blacks MDRD vol rate/area (S/P/Bld) mL/min/{1.73_m2} Normal >60 [facility] Comment on above: Order Comment: No: D o not add to previous draw Result Comment: Calc ulation may not be valid for patients over 70 years Performed By: #### 8 5499 ####[facility] [place] [address], [facility] GFR/1.73 sq M predicted among non-blacks MDRD vol rate/area (S/P/Bld) 56 ml/min/1.73sq m Abnormal >60 [facility] Comment on above: Order Comment: No: D o not add to previous draw Result Comment: Calc ulation may not be valid for patients over 70 years Performed By: #### 8 5499 ####[facility] [place] [address], [facility] Glucose mass conc 213 mg/dL High 70-100 [facility] Comment on above: Order Comment: No: D o not add to previous draw Performed By: #### 8 5499 ####[facility] [place] [address], [place] Potassium molar conc 4.1 mmol/L Normal 3.5-5.1 [facility] Comment on above: Order Comment: No: D o not add to previous draw Performed By: #### 8 5499 ####[facility] [place] [address], [place] Sodium molar conc 132 mmol/L Low 136-145 [facility] Comment on above: Order Comment: No: D o not add to previous draw Performed By: #### 8 5499 ####[facility] [facility] [place] [address], [facility] Urea nitrogen mass conc 19 mg/dL Normal 7-25 [facility] Comment on above: Order Comment: No: D o not add to previous draw Performed By: #### 8 5499 ####[facility]3000 [facility].[address] MAGNESIUM BLOODon 07-06-2018 Magnesium mass conc 1.8 mg/dL Low 1.9-2.7 [facility] Comment on above: Order Comment: No: D o not add to previous drawNo collection time noted on specimen or requisition. The collection timerecorded is the time of receipt in the lab. Performed By: #### 1 0070, 85405, 19195 ####[facility]3000 [facility].[address] PHOSPHORUS BLOODon 8 Phosphate mass conc 3.8 mg/dL Normal 2.5-5.0 [facility] Comment on above: Order Comment: No: D o not add to previous drawNo collection time noted on specimen or requisition. The collection timerecorded is the time of receipt in the lab. Performed By: #### 1 0070, 73762, 33418 ####[facility] [facility] [place] [address], [facility] POC GLUCOSE LABon 07-06-2018 Glucose mass conc 217 mg/dL High 70-100 [facility] Comment on above: Performed By: #### 1 0070, 93260, 36368 ####[facility] [facility] [place] [address], [facility] Glucose mass conc 197 mg/dL High 70-100 [facility] Comment on above: Performed By: #### 1 0070, 16843, 22772 ####[facility] [place] [address], [facility] Glucose mass conc 160 mg/dL High 70-100 [facility] Comment on above: Performed By: #### 8 5499 ####[facility] [place] [address], [facility] TRIGLYCERIDES BLOODon 2017 Triglyceride mass conc 256 mg/dL High 40-149 [facility] Comment on above: Order Comment: No: D o not add to previous draw Result Comment: TRIG LYCERIDE REFERENCE RANGE:20 YEARS AND OLDER CARDIOVASCULAR RISKLESS THAN 150 mg/dl LOW [id number] TO 199 mg/dl BORDERLINE [id number] mg/dl AND GREATER HIGH RISK Performed By: #### 8 5499 ####[address] BASIC METABOLIC PANELon 06-09 Calcium mass conc 8.7 mg/dL Normal 8.6-10.3 [facility] Comment on above: Order Comment: No: D o not add to previous draw Performed By: #### 8 5499 ####[facility] [facility] [place] [address], [facility] Chloride molar conc 105 mmol/L Normal 98-107 [facility] Comment on above: Order Comment: No: D o not add to previous draw Performed By: #### 8 5499 ####[facility] [place] [address], [facility] CO2 molar conc 24 mmol/L Normal 21-31 [facility] Comment on above: Order Comment: No: D o not add to previous draw Performed By: #### 8 5499 ####[facility] [place] [address], [facility] Creatinine mass conc 1.05 mg/dL Normal 0.60-1.20 [facility] Comment on above: Order Comment: No: D o not add to previous draw Performed By: #### 8 5499 ####[facility] [facility] [place] [address], [facility] GFR/1.73 sq M predicted among blacks MDRD vol rate/area (S/P/Bld) mL/min/{1.73_m2} Normal >60 [facility] Comment on above: Order Comment: No: D o not add to previous draw Result Comment: Calc ulation may not be valid for patients over 70 years Performed By: #### 8 5499 ####[facility] [facility] [place] [address], [facility] GFR/1.73 sq M predicted among non-blacks MDRD vol rate/area (S/P/Bld) 50 ml/min/1.73sq m Abnormal >60 [facility] Comment on above: Order Comment: No: D o not add to previous draw Result Comment: Calc ulation may not be valid for patients over 70 years Performed By: #### 8 5499 ####[facility] [facility] [place] [address], [facility] Glucose mass conc 185 mg/dL High 70-100 [facility] Comment on above: Order Comment: No: D o not add to previous draw Performed By: #### 8 5499 ####[facility] [facility] [place] [address], [facility] Potassium molar conc 3.8 mmol/L Normal 3.5-5.1 [facility] Comment on above: Order Comment: No: D o not add to previous draw Performed By: #### 8 5499 ####[facility] [facility] [place] [address], [place] Sodium molar conc 138 mmol/L Normal 136-145 [facility] Comment on above: Order Comment: No: D o not add to previous draw Performed By: #### 8 5499 ####[facility] [facility] [place] [address], [facility] Urea nitrogen mass conc 18 mg/dL Normal 7-25 [facility] Comment on above: Order Comment: No: D o not add to previous draw Performed By: #### 8 5499 ####[facility] CBC W/DIFFon 07-05-2018 ABS BASOPHILS 0.0 10*3/uL Normal 0.0-0.2 [facility] Comment on above: Order Comment: No: D o not add to previous draw Performed By: #### 8 5499 ####[facility] ABS NEUTROPHILS 9.5 10*3/uL High 1.6-7.6 [facility] Comment on above: Order Comment: No: D o not add to previous draw Performed By: #### 8 5499 ####[facility] Basophils Auto #/vol (Bld) 0.0 % Normal 0.0-1.0 [facility] Comment on above: Order Comment: No: D o not add to previous draw Performed By: #### 8 5499 ####[facility] [place] [address], [facility] Eosinophils Auto #/vol (Bld) 0.2 10*3/uL Normal 0.0-0.5 [facility] Comment on above: Order Comment: No: D o not add to previous draw Performed By: #### 8 5499 ####[facility] Eosinophils/100 WBC Auto (Bld) 1.8 % Normal 0.0-6.0 [facility] Comment on above: Order Comment: No: D o not add to previous draw Performed By: #### 8 5499 ####[facility] Erythrocyte distribution width Auto Ratio (RBC) 13.8 % Normal 11.5-15.0 [facility] Comment on above: Order Comment: No: D o not add to previous draw Performed By: #### 8 5499 ####[facility] Hematocrit Auto Volume Fraction (Bld) 28.7 % Low 36.0-45.0 [facility] Comment on above: Order Comment: No: D o not add to previous draw Performed By: #### 8 5499 ####[facility] Hemoglobin mass conc (Bld) 8.9 g/dL Low 12.0-15.0 [facility] Comment on above: Order Comment: No: D o not add to previous draw Performed By: #### 8 5499 ####[facility] [place] [address] Lymphocytes Auto #/vol (Bld) 1.3 10*3/uL Normal 1.2-4.0 [facility] Comment on above: Order Comment: No: D o not add to previous draw Performed By: #### 8 5499 ####[facility] [place] [address] Lymphocytes/100 WBC Auto (Bld) 10.9 % Low 20.0-45.0 [facility] Comment on above: Order Comment: No: D o not add to previous draw Performed By: #### 8 5499 ####[facility] [place] [address] MCH Auto Entitic mass (RBC) 30.5 pg Normal 27.0-33.0 [facility] Comment on above: Order Comment: No: D o not add to previous draw Performed By: #### 8 5499 ####[facility] [place] [address] MCHC Auto mass conc (RBC) 31.0 g/dL Low 32.0-35.0 [facility] Comment on above: Order Comment: No: D o not add to previous draw Performed By: #### 8 5499 ####[facility] MCV Auto Entitic volume (RBC) 98.3 fL High 82.0-98.0 [facility] Comment on above: Order Comment: No: D o not add to previous draw Performed By: #### 8 5499 ####[facility] METAMYELO 0.9 % High 0.0-0.0 [facility] Comment on above: Order Comment: No: D o not add to previous draw Performed By: #### 8 5499 ####[facility] Monocytes Auto #/vol (Bld) 0.8 10*3/uL Normal 0.1-1.0 [facility] Comment on above: Order Comment: No: D o not add to previous draw Performed By: #### 8 5499 ####[facility] MONOS 6.4 % Normal 5.0-12.0 [facility] Comment on above: Order Comment: No: D o not add to previous draw Performed By: #### 8 5499 ####[facility] MYELOS 0.9 % High .0-.0 [facility] Comment on above: Order Comment: No: D o not add to previous draw Performed By: #### 8 5499 ####[facility] Neutrophils/100 WBC Auto (Bld) 79.1 % High 40.0-72.0 The [facility] [facility] Comment on above: Order Comment: No: D o not add to previous draw Performed By: #### [id number] ####[facility] Nucleated RBC/100 WBC Ratio (Bld) 0 % Normal 0-0 [facility] Comment on above: Order Comment: No: D o not add to previous draw Performed By: #### 8 [id number] ####[facility] [facility] [place] [address], [facility] PLAT CNT 284 10*3/uL Normal 150-400 [facility] Comment on above: Order Comment: No: D o not add to previous draw Performed By: #### 8 [id number] ####[facility] [facility].[address] RBC Auto #/vol (Bld) 2.92 10*6/uL Low 3.80-5.00 The [facility] Comment on above: Order Comment: No: D o not add to previous draw Performed By: #### 8 [id number] ####[facility] [facility].[address] WBC Auto #/vol (Bld) 12.05 10*3/uL High 4.00-10.60 The [facility] Comment on above: Order Comment: No: D o not add to previous draw Performed By: #### 8 [id number] ####[facility] [facility].[address] MAGNESIUM BLOODon 07-05-2018 Magnesium mass conc 1.8 mg/dL Low 1.9-2.7 The [facility] Comment on above: Order Comment: No: D o not add to previous draw Performed By: #### 8 [id number] ####[facility] [address], [facility] PHOSPHORUS BLOODon 8 Phosphate mass conc 3.4 mg/dL Normal 2.5-5.0 The [facility] Comment on above: Order Comment: No: D o not add to previous draw Performed By: #### 8 [id number] ####[facility] [place] [address], [facility] POC GLUCOSE LABon 07-05-2018 Glucose mass conc 162 mg/dL High 70-100 The [facility] Comment on above: Performed By: #### 8 [id number] ####[facility] [facility] [address], [facility] Glucose mass conc 198 mg/dL High 70-100 The [facility] Comment on above: Performed By: #### 8 [id number] ####[facility] [facility] [place] [address], [facility] TRIGLYCERIDES BLOODon 2017 Triglyceride mass conc 204 mg/dL High 40-149 The [facility] Comment on above: Order Comment: No: D o not add to previous draw Result Comment: TRIG LYCERIDE REFERENCE RANGE:20 YEARS AND OLDER CARDIOVASCULAR RISKLESS THAN 150 mg/dl LOW [id number] TO 199 mg/dl BORDERLINE [id number] mg/dl AND GREATER HIGH RISK Performed By: #### 8 [id number] ####[facility] [facility] [place] [address], [facility] BASIC METABOLIC PANELon 06-09 Calcium mass conc 8.8 mg/dL Normal 8.6-10.3 The [facility] Comment on above: Order Comment: No: D o not add to previous draw Performed By: #### [id number] ####[facility] [facility] [address], [facility] Chloride molar conc 105 mmol/L Normal 98-107 The [facility] Comment on above: Order Comment: No: D o not add to previous draw Performed By: #### 8 [id number] ####[facility] [facility] [place] [address], [facility] CO2 molar conc 22 mmol/L Normal 21-31 The [facility] Comment on above: Order Comment: No: D o not add to previous draw Performed By: #### 8 [id number] ####[facility] [facility] [place] [address], [facility] Creatinine mass conc 1.07 mg/dL Normal 0.60-1.20 The [facility] Comment on above: Order Comment: No: D o not add to previous draw Performed By: #### 8 [id number] ####[facility] [facility] [place] [address], [place] GFR/1.73 sq M predicted among blacks MDRD vol rate/area (S/P/Bld) mL/min/{1.73_m2} Normal >60 The [facility] Comment on above: Order Comment: No: D o not add to previous draw Result Comment: Calc ulation may not be valid for patients over 70 years Performed By: #### 8 [id number] ####[facility] [facility] [place] [address], [facility] GFR/1.73 sq M predicted among non-blacks MDRD vol rate/area (S/P/Bld) 50 ml/min/1.73sq m Abnormal >60 The [facility] Comment on above: Order Comment: No: D o not add to previous draw Result Comment: Calc ulation may not be valid for patients over 70 years Performed By: #### 8 [id number] ####[facility] [facility] [place] [address], [facility] Glucose mass conc 188 mg/dL High 70-100 The [facility] Comment on above: Order Comment: No: D o not add to previous draw Performed By: #### 8 [id number] ####[facility] [facility] [place] [address], [place] Potassium molar conc 3.7 mmol/L Normal 3.5-5.1 The [facility] Comment on above: Order Comment: No: D o not add to previous draw Performed By: #### 8 [id number] ####[facility] [facility] [place] [address], [place] Sodium molar conc 136 mmol/L Normal 136-145 The [facility] Comment on above: Order Comment: No: D o not add to previous draw Performed By: #### 8 [id number] ####[facility] [facility].[address] Urea nitrogen mass conc 14 mg/dL Normal 7-25 The [facility] Comment on above: Order Comment: No: D o not add to previous draw Performed By: #### 8 [id number] ####[facility] [facility].[address] CBC W/DIFFon 07-04-2018 ABS BASOPHILS 0.0 10*3/uL Normal 0.0-0.2 The [facility] Comment on above: Performed By: #### 8 [id number] ####[facility] [facility].[address] ABS NEUTROPHILS 9.7 10*3/uL High 1.6-7.6 The [facility] Comment on above: Performed By: #### 8 [id number] ####[facility] [facility].[address] Basophils Auto #/vol (Bld) 0.0 % Normal 0.0-1.0 The [facility] Comment on above: Performed By: #### 8 [id number] ####[facility] [facility].[address] Eosinophils Auto #/vol (Bld) 0.2 10*3/uL Normal 0.0-0.5 The [facility] Comment on above: Performed By: #### 8 [id number] ####[facility] [facility].[address] Eosinophils/100 WBC Auto (Bld) 1.8 % Normal 0.0-6.0 The [facility] Comment on above: Performed By: #### 8 [id number] ####[facility] [facility].[address] Erythrocyte distribution width Auto Ratio (RBC) 13.7 % Normal 11.5-15.0 The [facility] Comment on above: Performed By: #### 8 [id number] ####[facility] GIANT PLATELETS Present Normal The [facility] Comment on above: Performed By: #### 8 [id number] ####[facility] Hematocrit Auto Volume Fraction (Bld) 31.4 % Low 36.0-45.0 The [facility] Comment on above: Performed By: #### 8 [id number] ####[facility] Hemoglobin mass conc (Bld) 10.0 g/dL Low 12.0-15.0 The [facility] Comment on above: Performed By: #### 8 [id number] ####[facility] Lymphocytes Auto #/vol (Bld) 1.5 10*3/uL Normal 1.2-4.0 The [facility] Comment on above: Performed By: #### 8 [id number] ####[facility] Lymphocytes/100 WBC Auto (Bld) 11.8 % Low 20.0-45.0 The [facility] Comment on above: Performed By: #### 8 [id number] ####[facility] MCH Auto Entitic mass (RBC) 30.8 pg Normal 27.0-33.0 The [facility] Comment on above: Performed By: #### 8 [id number] ####[facility] MCHC Auto mass conc (RBC) 31.8 g/dL Low 32.0-35.0 The [facility] Comment on above: Performed By: #### 8 [id number] ####[facility] [facility].[address] MCV Auto Entitic volume (RBC) 96.6 fL Normal 82.0-98.0 The [facility] Comment on above: Performed By: #### 8 [id number] ####[facility] [facility].[address] METAMYELO 0.9 % High 0.0-0.0 The [facility] Comment on above: Performed By: #### 8 [id number] ####[facility] Monocytes Auto #/vol (Bld) 1.0 10*3/uL Normal 0.1-1.0 The [facility] Comment on above: Performed By: #### 8 [id number] ####[facility] MONOS 8.2 % Normal 5.0-12.0 The [facility] Comment on above: Performed By: #### 8 [id number] ####[facility] Neutrophils/100 WBC Auto (Bld) 77.3 % High 40.0-72.0 The [facility] Comment on above: Performed By: #### 8 [id number] ####[facility] NRBC SCAN Present Normal The [facility] Comment on above: Performed By: #### 8 [id number] ####[facility] [facility].[address] Nucleated RBC/100 WBC Ratio (Bld) 0 % Normal 0-0 The [facility] Comment on above: Performed By: #### 8 [id number] ####[facility] [facility] [place] [address], [facility] PLAT CNT 300 10*3/uL Normal 150-400 The [facility] Comment on above: Performed By: #### 8 [id number] ####[facility] [address], [facility] RBC Auto #/vol (Bld) 3.25 10*6/uL Low 3.80-5.00 The [facility] Comment on above: Performed By: #### 8 [id number] ####[facility] WBC Auto #/vol (Bld) 12.52 10*3/uL High 4.00-10.60 The [facility] Comment on above: Performed By: #### 8 [id number] ####[facility] MAGNESIUM BLOODon 07-04-2018 Magnesium mass conc 1.9 mg/dL Normal 1.9-2.7 The [facility] Comment on above: Order Comment: No: D o not add to previous draw Performed By: #### 8 [id number] ####[facility] PHOSPHORUS BLOODon 8 Phosphate mass conc 2.8 mg/dL Normal 2.5-5.0 The [facility] Comment on above: Order Comment: No: D o not add to previous draw Performed By: #### 8 [id number] ####[facility] POC GLUCOSE LABon 07-04-2018 Glucose mass conc 161 mg/dL High 70-100 The [facility] Comment on above: Performed By: #### 8 [id number] ####[facility] Glucose mass conc 169 mg/dL High 70-100 The [facility] Comment on above: Performed By: #### 8 [id number] ####[facility] [place] [address], [place] Glucose mass conc 222 mg/dL High 70-100 The [facility] Comment on above: Performed By: #### 8 [id number] ####[facility] [place] [address], [place] Glucose mass conc 186 mg/dL High 70-100 The [facility] Comment on above: Performed By: #### 8 [id number] ####[facility] [place] [address], [place] Glucose mass conc 153 mg/dL High 70-100 The [facility] Comment on above: Performed By: #### 8 [id number] ####[facility] [place] [address], [facility] BASIC METABOLIC PANELon 08-2 Calcium mass conc 8.1 mg/dL Low 8.6-10.3 The [facility] Comment on above: Order Comment: No: D o not add to previous draw Performed By: #### 8 [id number] ####[facility] [place] [address], [place] Chloride molar conc 104 mmol/L Normal 98-107 The [facility] Comment on above: Order Comment: No: D o not add to previous draw Performed By: #### 8 [id number] ####[facility] [place] [address], [place] CO2 molar conc 21 mmol/L Normal 21-31 The [facility] Comment on above: Order Comment: No: D o not add to previous draw Performed By: #### 8 [id number] ####[facility] [place] [address], [place] Creatinine mass conc 1.12 mg/dL Normal 0.60-1.20 The [facility] Comment on above: Order Comment: No: D o not add to previous draw Performed By: #### 8 [id number] ####[facility] [place] [address], [place] GFR/1.73 sq M predicted among blacks MDRD vol rate/area (S/P/Bld) 57 ml/min/1.73sq m Abnormal >60 The [facility] Comment on above: Order Comment: No: D o not add to previous draw Result Comment: Calc ulation may not be valid for patients over 70 years Performed By: #### 8 [id number] ####[facility] [place] [address], [facility] GFR/1.73 sq M predicted among non-blacks MDRD vol rate/area (S/P/Bld) 47 ml/min/1.73sq m Abnormal >60 The [facility] Comment on above: Order Comment: No: D o not add to previous draw Result Comment: Calc ulation may not be valid for patients over 70 years Performed By: #### 8 [id number] ####[facility] [facility] [place] [address], [facility] Glucose mass conc 246 mg/dL High 70-100 The [facility] Comment on above: Order Comment: No: D o not add to previous draw Performed By: #### 8 [id number] ####[facility] [facility] [place] [address], [place] Potassium molar conc 4.4 mmol/L Normal 3.5-5.1 The [facility] Comment on above: Order Comment: No: D o not add to previous draw Performed By: #### 8 [id number] ####[facility] [place] [address], [place] Sodium molar conc 132 mmol/L Low 136-145 The [facility] Comment on above: Order Comment: No: D o not add to previous draw Performed By: #### 8 [id number] ####[facility] [place] [address], [place] Urea nitrogen mass conc 10 mg/dL Normal 7-25 The [facility] Comment on above: Order Comment: No: D o not add to previous draw Performed By: #### 8 [id number] ####[facility] CBC COMPLETE BLOOD COUNTon 0 07-03-2018 Erythrocyte distribution width Auto Ratio (RBC) 13.7 % Normal 11.5-15.0 The [facility] Comment on above: Order Comment: No: D o not add to previous draw Performed By: #### 8 [id number] ####[facility] [facility] Hematocrit Auto Volume Fraction (Bld) 36.3 % Normal 36.0-45.0 The [facility] Comment on above: Order Comment: No: D o not add to previous draw Performed By: #### 8 [id number] ####[facility] Hemoglobin mass conc (Bld) 11.3 g/dL Low 12.0-15.0 The [facility] Comment on above: Order Comment: No: D o not add to previous draw Performed By: #### 8 [id number] ####[facility] [facility].[address] MCH Auto Entitic mass (RBC) 30.5 pg Normal 27.0-33.0 The [facility] Comment on above: Order Comment: No: D o not add to previous draw Performed By: #### 8 [id number] ####[facility] [facility].[address] MCHC Auto mass conc (RBC) 31.1 g/dL Low 32.0-35.0 The [facility] Comment on above: Order Comment: No: D o not add to previous draw Performed By: #### 8 [id number] ####[facility] MCV Auto Entitic volume (RBC) 97.8 fL Normal 82.0-98.0 The [facility] Comment on above: Order Comment: No: D o not add to previous draw Performed By: #### 8 [id number] ####[facility] Nucleated RBC/100 WBC Ratio (Bld) 0 % Normal 0-0 The [facility] Comment on above: Order Comment: No: D o not add to previous draw Performed By: #### 8 [id number] ####[facility] [address], [facility] PLAT CNT 313 10*3/uL Normal 150-400 The [facility] Comment on above: Order Comment: No: D o not add to previous draw Performed By: #### 8 [id number] ####[facility] RBC Auto #/vol (Bld) 3.71 10*6/uL Low 3.80-5.00 The [facility] Comment on above: Order Comment: No: D o not add to previous draw Performed By: #### 8 [id number] ####[facility] WBC Auto #/vol (Bld) 9.64 10*3/uL Normal 4.00-10.60 The [facility] Comment on above: Order Comment: No: D o not add to previous draw Performed By: #### 8 [id number] ####[facility] LIVER BATTERYon 07-03-2018 Albumin mass conc 2.8 g/dL Low 3.5-5.7 The [facility] Comment on above: Order Comment: No: D o not add to previous draw Performed By: #### 8 [id number] ####[facility] [address], [facility] ALKALINE PHOSPH 87 IU/L Normal 34-104 The [facility] Comment on above: Order Comment: No: D o not add to previous draw Performed By: #### 8 [id number] ####[facility] [place] [address], [facility] ALT enzyme act/vol 17 U/L Normal 7-52 The [facility] Comment on above: Order Comment: No: D o not add to previous draw Performed By: #### 8 [id number] ####[facility] [place] [address], [place] AST enzyme act/vol 17 U/L Normal 13-39 The [facility] Comment on above: Order Comment: No: D o not add to previous draw Performed By: #### 8 [id number] ####[facility] [place] [address], [facility] Bilirubin mass conc 1.0 mg/dL Normal 0.3-1.0 The [facility] Comment on above: Order Comment: No: D o not add to previous draw Performed By: #### 8 [id number] ####[facility] [place] [address], [facility] Bilirubin.direct mass conc 0.6 mg/dL High 0.0-0.2 The [facility] Comment on above: Order Comment: No: D o not add to previous draw Performed By: #### 8 [id number] ####[facility] [place] [address], [facility] Protein mass conc 5.6 g/dL Low 6.0-8.3 The [facility] Comment on above: Order Comment: No: D o not add to previous draw Performed By: #### 8 [id number] ####[facility] [place] [address], [facility] MAGNESIUM BLOODon 07-03-2018 Magnesium mass conc 2.3 mg/dL Normal 1.9-2.7 The [facility] Comment on above: Order Comment: No: D o not add to previous draw Performed By: #### 8 [id number] ####[facility] Operative Reporton 8 Operative Report MR#: [id number] [facility] Vidhya Giordano Room #: [id number] Discharge Date: Birthdate: 1940 OPERATIVE REPORTDATE OF SURGERY: 07/02/2018SURGEON: Meg Abebe M.D.PREOPERATIVE DIAGNOSIS: Status post repair of enterocutaneous fistula andanastomosis leak.POSTOPERATIVE DIAGNOSIS: Status post repair of enterocutaneous fistula andanastomosis leak.OPERATION PERFORMED: Exploratory laparotomy, extensive lysis of adhesionmore than 2 hours, small-bowel resection with functional [id number]-vfqpcktkbnzbaq and repair of a transverse colon iatrogenic [...] time-out, the incision staple was reopened and tsmurmpwhdqkonjsc-bp-[id number] suture was removed. The fascia was opened. [...] divided with the LigaSure. Then, a functional jkl-uv-zwvyajiuibyihk was performed by a blue load 6 [...] 07/02/2018/07:16 P/Meg Abebe M.D.Date Trans: 07/02/2018 10:15 P/[id number]:[id number] c: Kalin Santos D.O. [address] [place] [id number] Normal The [facility] PHOSPHORUS BLOODon 8 Phosphate mass conc 2.3 mg/dL Low 2.5-5.0 The [facility] Comment on above: Order Comment: No: D o not add to previous draw Performed By: #### 8 [id number] ####[facility] [place] [address], [facility] POC GLUCOSE LABon 07-03-2018 Glucose mass conc 169 mg/dL High 70-100 The [facility] Comment on above: Performed By: #### 8 [id number] ####[facility] [address], [facility] Glucose mass conc 141 mg/dL High 70-100 The [facility] Comment on above: Performed By: #### 8 [id number] ####[facility] [place] [address], [facility] Glucose mass conc 221 mg/dL High 70-100 The [facility] Comment on above: Performed By: #### 8 [id number] ####[facility] [address] [address], [facility] *BLOOD CULTUREon 07-02-2018 Bacteria identified in Blood by Culture Clinical Report: (D) Specimen: BLOOD CULTURE Collected: 07/02/2018 21:59 Status: Final Last Updated: 07/08/2018 07:42 CULT RES (Final) No Growth Day 5 Normal [facility] Comment on above: Performed By: #### 8 [id number] ####[facility] [facility] [place] [address], [facility] Bacteria identified in Blood by Culture Clinical Report: (D) Specimen: BLOOD CULTURE Collected: 07/02/2018 21:50 Status: Final Last Updated: 07/08/2018 07:42 (1) left hand CULT RES (Final) No Growth Day 5 Normal [facility] Comment on above: Order Comment: left hand Performed By: #### 8 5499 ####[facility] [address], [facility] BASIC METABOLIC PANELon 06-09 Calcium mass conc 8.2 mg/dL Low 8.6-10.3 [facility] Comment on above: Order Comment: No: D o not add to previous draw Performed By: #### 5 6101, 89963 ####[facility] [address], [facility] Chloride molar conc 103 mmol/L Normal 98-107 [facility] Comment on above: Order Comment: No: D o not add to previous draw Performed By: #### 5 3191, 37938 ####[facility] [place] [address], [facility] CO2 molar conc 20 mmol/L Low 21-31 [facility] Comment on above: Order Comment: No: D o not add to previous draw Performed By: #### 5 6101, 37502 ####[facility] [place] [address], [facility] Creatinine mass conc 1.09 mg/dL Normal 0.60-1.20 [facility] Comment on above: Order Comment: No: D o not add to previous draw Performed By: #### 5 6101, 18994 ####[facility] [facility] [place] [address], [facility] GFR/1.73 sq M predicted among blacks MDRD vol rate/area (S/P/Bld) 59 ml/min/1.73sq m Abnormal >60 [facility] Comment on above: Order Comment: No: D o not add to previous draw Result Comment: Calc ulation may not be valid for patients over 70 years Performed By: #### 5 6101, 47121 ####[facility] [facility] [place] [address], [facility] GFR/1.73 sq M predicted among non-blacks MDRD vol rate/area (S/P/Bld) 48 ml/min/1.73sq m Abnormal >60 [facility] Comment on above: Order Comment: No: D o not add to previous draw Result Comment: Calc ulation may not be valid for patients over 70 years Performed By: #### 5 2470, 61298 ####[facility] [place] [address], [facility] Glucose mass conc 272 mg/dL High 70-100 [facility] Comment on above: Order Comment: No: D o not add to previous draw Performed By: #### 5 610, 14211 ####[facility] [place] [address], [place] Potassium molar conc 3.6 mmol/L Normal 3.5-5.1 [facility] Comment on above: Order Comment: No: D o not add to previous draw Performed By: #### 5 610, 11583 ####[facility] [place] [address], [place] Sodium molar conc 132 mmol/L Low 136-145 [facility] Comment on above: Order Comment: No: D o not add to previous draw Performed By: #### 5 610, 50331 ####[facility] [place] [address], [facility] Urea nitrogen mass conc 10 mg/dL Normal 7-25 [facility] Comment on above: Order Comment: No: D o not add to previous draw Performed By: #### 5 610, 24216 ####[facility] [place] [address], [place] Calcium mass conc 8.4 mg/dL Low 8.6-10.3 [facility] Comment on above: Order Comment: No: D o not add to previous draw Performed By: #### 5 610, 44759 ####[facility] [place] [address], [place] Chloride molar conc 106 mmol/L Normal 98-107 [facility] Comment on above: Order Comment: No: D o not add to previous draw Performed By: #### 5 610, 27966 ####[facility] [place] [address], [place] CO2 molar conc 24 mmol/L Normal 21-31 [facility] Comment on above: Order Comment: No: D o not add to previous draw Performed By: #### 5 610, 20350 ####[facility] [place] [address], [facility] Creatinine mass conc 1.12 mg/dL Normal 0.60-1.20 [facility] Comment on above: Order Comment: No: D o not add to previous draw Performed By: #### 5 610, 42813 ####[facility] [place] [address], [facility] GFR/1.73 sq M predicted among blacks MDRD vol rate/area (S/P/Bld) 57 ml/min/1.73sq m Abnormal >60 [facility] Comment on above: Order Comment: No: D o not add to previous draw Result Comment: Calc ulation may not be valid for patients over 70 years Performed By: #### 5 610, 28700 ####[facility] [place] [address], [facility] GFR/1.73 sq M predicted among non-blacks MDRD vol rate/area (S/P/Bld) 47 ml/min/1.73sq m Abnormal >60 [facility] Comment on above: Order Comment: No: D o not add to previous draw Result Comment: Calc ulation may not be valid for patients over 70 years Performed By: #### 5 0903, 99294 ####[facility] [place] [address], [facility] Glucose mass conc 149 mg/dL High 70-100 [facility] Comment on above: Order Comment: No: D o not add to previous draw Performed By: #### 5 5729, 50934 ####[facility] [place] [address], [facility] Potassium molar conc 3.8 mmol/L Normal 3.5-5.1 [facility] Comment on above: Order Comment: No: D o not add to previous draw Performed By: #### 5 610, 01229 ####[facility] [place] [address], [place] Sodium molar conc 136 mmol/L Normal 136-145 [facility] Comment on above: Order Comment: No: D o not add to previous draw Performed By: #### 5 610, 88224 ####[facility] Urea nitrogen mass conc 12 mg/dL Normal 7-25 [facility] Comment on above: Order Comment: No: D o not add to previous draw Performed By: #### 5 610, 01963 ####[facility] CBC COMPLETE BLOOD COUNTon 0 07-02-2018 Erythrocyte distribution width Auto Ratio (RBC) 13.8 % Normal 11.5-15.0 [facility] Comment on above: Order Comment: No: D o not add to previous [id number]- PATIENT NOT IN ROOM; STILL IN O.R. SHOULD BE RN DRAW, PER RN-TECH LM Performed By: #### 5 610, 05029 ####[facility] Hematocrit Auto Volume Fraction (Bld) 36.9 % Normal 36.0-45.0 [facility] Comment on above: Order Comment: No: D o not add to previous [id number]- PATIENT NOT IN ROOM; STILL IN O.R. SHOULD BE RN DRAW, PER RN-TECH LM Performed By: #### 5 6101, 49150 ####[facility] [facility].[address] Hemoglobin mass conc (Bld) 11.6 g/dL Low 12.0-15.0 [facility] Comment on above: Order Comment: No: D o not add to previous [id number]- PATIENT NOT IN ROOM; STILL IN O.R. SHOULD BE RN DRAW, PER RN-TECH LM Performed By: #### 5 6101, 17727 ####[facility] [facility] [place] [address], [facility] MCH Auto Entitic mass (RBC) 31.1 pg Normal 27.0-33.0 [facility] Comment on above: Order Comment: No: D o not add to previous [id number]- PATIENT NOT IN ROOM; STILL IN O.R. SHOULD BE RN DRAW, PER RN-TECH LM Performed By: #### 5 610, 37973 ####[facility] MCHC Auto mass conc (RBC) 31.4 g/dL Low 32.0-35.0 [facility] Comment on above: Order Comment: No: D o not add to previous [id number]- PATIENT NOT IN ROOM; STILL IN O.R. SHOULD BE RN DRAW, PER RN-TECH LM Performed By: #### 5 610, 40905 ####[place] [address] [address] MCV Auto Entitic volume (RBC) 98.9 fL High 82.0-98.0 [facility] Comment on above: Order Comment: No: D o not add to previous [id number]- PATIENT NOT IN ROOM; STILL IN O.R. SHOULD BE RN DRAW, PER RN-TECH LM Performed By: #### 5 610, 45204 ####[address] Nucleated RBC/100 WBC Ratio (Bld) 0 % Normal 0-0 [facility] Comment on above: Order Comment: No: D o not add to previous [id number]- PATIENT NOT IN ROOM; STILL IN O.R. SHOULD BE RN DRAW, PER RN-TECH LM Performed By: #### 5 610, 07528 ####[place] [address] PLAT CNT 165 10*3/uL Normal 150-400 [facility] Comment on above: Order Comment: No: D o not add to previous [id number]- PATIENT NOT IN ROOM; STILL IN O.R. SHOULD BE RN DRAW, PER RN-TECH LM Performed By: #### 5 610, 65556 ####[facility] RBC Auto #/vol (Bld) 3.73 10*6/uL Low 3.80-5.00 [facility] Comment on above: Order Comment: No: D o not add to previous [id number]- PATIENT NOT IN ROOM; STILL IN O.R. SHOULD BE RN DRAW, PER RN-TECH LM Performed By: #### 5 610, 65090 ####[facility] [facility].[address] WBC Auto #/vol (Bld) 9.50 10*3/uL Normal 4.00-10.60 [facility] Comment on above: Order Comment: No: D o not add to previous [id number]- PATIENT NOT IN ROOM; STILL IN O.R. SHOULD BE RN DRAW, PER RN-TECH LM Performed By: #### 5 610, 22594 ####[facility] [facility].[address] Erythrocyte distribution width Auto Ratio (RBC) 13.9 % Normal 11.5-15.0 [facility] Comment on above: Order Comment: No: D o not add to previous draw Performed By: #### 5 610, 10018 ####[place] [address] [facility].[address] Hematocrit Auto Volume Fraction (Bld) 34.4 % Low 36.0-45.0 [facility] Comment on above: Order Comment: No: D o not add to previous draw Performed By: #### 5 610, 15112 ####[facility] [facility].[address] Hemoglobin mass conc (Bld) 10.8 g/dL Low 12.0-15.0 [facility] Comment on above: Order Comment: No: D o not add to previous draw Performed By: #### 5 610, 08976 ####[facility] [facility] [place] [address], [facility] MCH Auto Entitic mass (RBC) 31.1 pg Normal 27.0-33.0 [facility] Comment on above: Order Comment: No: D o not add to previous draw Performed By: #### 5 610, 51828 ####[facility] MCHC Auto mass conc (RBC) 31.4 g/dL Low 32.0-35.0 [facility] Comment on above: Order Comment: No: D o not add to previous draw Performed By: #### 5 6100, 48293 ####[facility] MCV Auto Entitic volume (RBC) 99.1 fL High 82.0-98.0 [facility] Comment on above: Order Comment: No: D o not add to previous draw Performed By: #### 5 6100, 56745 ####[facility] [facility].[address] Nucleated RBC/100 WBC Ratio (Bld) 0 % Normal 0-0 [facility] Comment on above: Order Comment: No: D o not add to previous draw Performed By: #### 5 6100, 90867 ####[facility] PLAT CNT 232 10*3/uL Normal 150-400 [facility] Comment on above: Order Comment: No: D o not add to previous draw Performed By: #### 5 610, 65746 ####[facility] RBC Auto #/vol (Bld) 3.47 10*6/uL Low 3.80-5.00 [facility] Comment on above: Order Comment: No: D o not add to previous draw Performed By: #### 5 610, 77664 ####[facility] WBC Auto #/vol (Bld) 9.09 10*3/uL Normal 4.00-10.60 [facility] Comment on above: Order Comment: No: D o not add to previous draw Performed By: #### 5 6101, 84148 ####[facility] MAGNESIUM BLOODon 07-02-2018 Magnesium mass conc 1.6 mg/dL Low 1.9-2.7 [facility] Comment on above: Order Comment: No: D o not add to previous draw Performed By: #### 5 6101, 43416 ####[facility] Operative Reporton 8 Operative Report MR#: [id number] [facility] Vidhya Giordano Room #: 3AB [id number] Discharge Date: Birthdate: 1940 OPERATIVE REPORTDATE OF [...] The fascia wasclosed by interrupted 0 PDS nttgar-vk-[id number] suture. The skin was closed byskin jd. The Prevena wound VAC was applied. Operation was completedwithout complication.I was present during the entire operation.Electronically Signed by:Meg Abebe M.D. 07/07/2018 12:44 P Meg Abebe M.D.Date Dict: 07/02/2018/07:09 P/Meg Abebe M.D.Date Trans: 07/02/2018 09:51 P/[id number] c: Kalin Santos D.O. [address] [facility] [address] Normal [facility] PHOSPHORUS BLOODon 8 Phosphate mass conc 1.9 mg/dL Low 2.5-5.0 [facility] Comment on above: Order Comment: No: D o not add to previous [id number]- CHANGED TO LAB DRAW Performed By: #### 8 5499 ####[facility] [facility] [place] [address], [facility] POC GLUCOSE LABon 07-02-2018 Glucose mass conc 246 mg/dL High 70-100 [facility] Comment on above: Performed By: #### 5 6101, 98317 ####[facility] [facility] [place] [address], [place] Glucose mass conc 145 mg/dL High 70-100 [facility] Comment on above: Performed By: #### 5 610, 37600 ####[facility] [place] [address], [place] Glucose mass conc 140 mg/dL High 70-100 [facility] Comment on above: Performed By: #### 5 610, 19362 ####[facility] [place] [address], [place] Glucose mass conc 163 mg/dL High 70-100 [facility] Comment on above: Performed By: #### 5 610, 88808 ####[facility] [place] [address], [place] TYPE AND SCREENon 07-02-2018 ABO INTERPRETATION A Normal [facility] Comment on above: Performed By: #### 5 610, 90637 ####[facility] [facility] [place] [address], [place] RH INTERPRETATION Positive Normal [facility] Comment on above: Performed By: #### 5 610, 17854 ####[facility] [place] [address], [place] POC GLUCOSE LABon 07-01-2018 Glucose mass conc 137 mg/dL High 70-100 [facility] Comment on above: Performed By: #### 5 6100, 68275 ####[facility] [address], [place] Glucose mass conc 178 mg/dL High 70-100 [facility] Comment on above: Performed By: #### 5 610, 12279 ####[facility] [place] [address], [place] Glucose mass conc 119 mg/dL High 70-100 [facility] Comment on above: Performed By: #### 5 610, 56059 ####[facility] [place] [address], [facility] Glucose mass conc 95 mg/dL Normal 70-100 [facility] Comment on above: Performed By: #### 5 610, 75951 ####[facility] [address], [facility] BASIC METABOLIC PANELon 08-2 Calcium mass conc 8.3 mg/dL Low 8.6-10.3 [facility] Comment on above: Order Comment: No: D o not add to previous draw Performed By: #### 5 610, 98823 ####[facility] [place] [address], [facility] Chloride molar conc 110 mmol/L High 98-107 [facility] Comment on above: Order Comment: No: D o not add to previous draw Performed By: #### 5 610, 99038 ####[facility] [place] [address], [facility] CO2 molar conc 23 mmol/L Normal 21-31 [facility] Comment on above: Order Comment: No: D o not add to previous draw Performed By: #### 5 610, 14821 ####[facility] [place] [address], [facility] Creatinine mass conc 1.08 mg/dL Normal 0.60-1.20 [facility] Comment on above: Order Comment: No: D o not add to previous draw Performed By: #### 5 610, 94512 ####[facility] [place] [address], [facility] GFR/1.73 sq M predicted among blacks MDRD vol rate/area (S/P/Bld) 59 ml/min/1.73sq m Abnormal >60 [facility] Comment on above: Order Comment: No: D o not add to previous draw Result Comment: Calc ulation may not be valid for patients over 70 years Performed By: #### 5 6101, 06038 ####[facility] [place] [address], [facility] GFR/1.73 sq M predicted among non-blacks MDRD vol rate/area (S/P/Bld) 49 ml/min/1.73sq m Abnormal >60 [facility] Comment on above: Order Comment: No: D o not add to previous draw Result Comment: Calc ulation may not be valid for patients over 70 years Performed By: #### 5 6101, 17702 ####[facility] [place] [address], [facility] Glucose mass conc 148 mg/dL High 70-100 [facility] Comment on above: Order Comment: No: D o not add to previous draw Performed By: #### 5 610, 07827 ####[facility] [place] [address], [facility] Potassium molar conc 3.9 mmol/L Normal 3.5-5.1 [facility] Comment on above: Order Comment: No: D o not add to previous draw Performed By: #### 5 6101, 03804 ####[facility] [address], [facility] Sodium molar conc 139 mmol/L Normal 136-145 [facility] Comment on above: Order Comment: No: D o not add to previous draw Performed By: #### 5 6101, 03240 ####[facility] [place] [address], [facility] Urea nitrogen mass conc 14 mg/dL Normal 7-25 [facility] Comment on above: Order Comment: No: D o not add to previous draw Performed By: #### 5 6101, 21685 ####[facility] [place] [place] [address], [facility] CBC COMPLETE BLOOD COUNTon 0 - Erythrocyte distribution width Auto Ratio (RBC) 14.0 % Normal 11.5-15.0 [facility] Comment on above: Order Comment: No: D o not add to previous draw Performed By: #### 5 610, 40510 ####[facility] Hematocrit Auto Volume Fraction (Bld) 34.0 % Low 36.0-45.0 [facility] Comment on above: Order Comment: No: D o not add to previous draw Performed By: #### 5 610, 97228 ####[facility] Hemoglobin mass conc (Bld) 10.7 g/dL Low 12.0-15.0 [facility] Comment on above: Order Comment: No: D o not add to previous draw Performed By: #### 5 610, 34782 ####[facility] [facility].[address] MCH Auto Entitic mass (RBC) 31.6 pg Normal 27.0-33.0 [facility] Comment on above: Order Comment: No: D o not add to previous draw Performed By: #### 5 6100, 90863 ####[facility] [facility].[address] MCHC Auto mass conc (RBC) 31.5 g/dL Low 32.0-35.0 [facility] Comment on above: Order Comment: No: D o not add to previous draw Performed By: #### 5 610, 17631 ####[facility] [facility].[address] MCV Auto Entitic volume (RBC) 100.3 fL High 82.0-98.0 [facility] Comment on above: Order Comment: No: D o not add to previous draw Performed By: #### 5 610, 40703 ####[facility] Nucleated RBC/100 WBC Ratio (Bld) 0 % Normal 0-0 [facility] Comment on above: Order Comment: No: D o not add to previous draw Performed By: #### 5 610, 77601 ####[facility] [address], [facility] PLAT CNT 213 10*3/uL Normal 150-400 [facility] Comment on above: Order Comment: No: D o not add to previous draw Performed By: #### 5 610, 65553 ####[facility] [address], [facility] RBC Auto #/vol (Bld) 3.39 10*6/uL Low 3.80-5.00 [facility] Comment on above: Order Comment: No: D o not add to previous draw Performed By: #### 5 610, 17288 ####[facility] [place] [address], [facility] WBC Auto #/vol (Bld) 11.66 10*3/uL High 4.00-10.60 [facility] Comment on above: Order Comment: No: D o not add to previous draw Performed By: #### 5 [id number], [id number] ####[facility] [place] [address], [facility] MAGNESIUM BLOODon 06-30-2018 Magnesium mass conc 2.1 mg/dL Normal 1.9-2.7 The [facility] Comment on above: Order Comment: No: D o not add to previous draw Performed By: #### 5 610, [id number] ####[facility] [place] [address], [facility] PHOSPHORUS BLOODon 8 Phosphate mass conc 2.1 mg/dL Low 2.5-5.0 The [facility] Comment on above: Order Comment: No: D o not add to previous draw Performed By: #### 5 610, [id number] ####[facility] [place] [address], [facility] POC GLUCOSE LABon 06-30-2018 Glucose mass conc 160 mg/dL High 70-100 The [facility] Comment on above: Performed By: #### 5 6101, [id number] ####[facility] [place] [address], [facility] Glucose mass conc 193 mg/dL High 70-100 The [facility] Comment on above: Performed By: #### 5 6101, 82017 ####[facility] [place] [address], [facility] Glucose mass conc 134 mg/dL High 70-100 The [facility] Comment on above: Performed By: #### 8 [id number] ####[facility] [place] [address], [facility] Glucose mass conc 132 mg/dL High 70-100 The [facility] Comment on above: Performed By: #### 8 [id number] ####[facility] [place] [address], [facility] BASIC METABOLIC PANELon 06-09 Calcium mass conc 8.7 mg/dL Normal 8.6-10.3 The [facility] Comment on above: Order Comment: No: D o not add to previous draw Performed By: #### 8 [id number] ####[facility] [place] [address], [facility] Chloride molar conc 110 mmol/L High 98-107 The [facility] Comment on above: Order Comment: No: D o not add to previous draw Performed By: #### 8 [id number] ####[facility] [place] [address], [facility] CO2 molar conc 24 mmol/L Normal 21-31 The [facility] Comment on above: Order Comment: No: D o not add to previous draw Performed By: #### 8 [id number] ####[facility] [place] [address], [facility] Creatinine mass conc 1.25 mg/dL High 0.60-1.20 The [facility] Comment on above: Order Comment: No: D o not add to previous draw Performed By: #### 8 [id number] ####[facility] [facility] [place] [address], [facility] GFR/1.73 sq M predicted among blacks MDRD vol rate/area (S/P/Bld) 50 ml/min/1.73sq m Abnormal >60 The [facility] Comment on above: Order Comment: No: D o not add to previous draw Result Comment: Calc ulation may not be valid for patients over 70 years Performed By: #### 8 [id number] ####[facility] [facility] [place] [address], [facility] GFR/1.73 sq M predicted among non-blacks MDRD vol rate/area (S/P/Bld) 42 ml/min/1.73sq m Abnormal >60 The [facility] Comment on above: Order Comment: No: D o not add to previous draw Result Comment: Calc ulation may not be valid for patients over 70 years Performed By: #### 8 [id number] ####[facility] [facility] [place] [address], [facility] Glucose mass conc 183 mg/dL High 70-100 The [facility] Comment on above: Order Comment: No: D o not add to previous draw Performed By: #### 8 [id number] ####[facility] [facility] [place] [address], [facility] Potassium molar conc 4.0 mmol/L Normal 3.5-5.1 The [facility] Comment on above: Order Comment: No: D o not add to previous draw Performed By: #### 8 [id number] ####[facility] [facility] [place] [address], [place] Sodium molar conc 139 mmol/L Normal 136-145 The [facility] Comment on above: Order Comment: No: D o not add to previous draw Performed By: #### 8 [id number] ####[facility] [facility].[address] Urea nitrogen mass conc 16 mg/dL Normal 7-25 The [facility] Comment on above: Order Comment: No: D o not add to previous draw Performed By: #### 8 [id number] ####[facility] [facility].[address] CBC COMPLETE BLOOD COUNTon 06-29-2018 Erythrocyte distribution width Auto Ratio (RBC) 14.2 % Normal 11.5-15.0 The [facility] Comment on above: Order Comment: No: D o not add to previous draw Performed By: #### 8 [id number] ####[facility] Hematocrit Auto Volume Fraction (Bld) 36.9 % Normal 36.0-45.0 The [facility] Comment on above: Order Comment: No: D o not add to previous draw Performed By: #### 8 [id number] ####[facility] [facility].[address] Hemoglobin mass conc (Bld) 11.5 g/dL Low 12.0-15.0 The [facility] Comment on above: Order Comment: No: D o not add to previous draw Performed By: #### 8 [id number] ####[facility] [facility].[address] MCH Auto Entitic mass (RBC) 31.1 pg Normal 27.0-33.0 The [facility] Comment on above: Order Comment: No: D o not add to previous draw Performed By: #### 8 [id number] ####[facility] [facility].[address] MCHC Auto mass conc (RBC) 31.2 g/dL Low 32.0-35.0 The [facility] Comment on above: Order Comment: No: D o not add to previous draw Performed By: #### 8 [id number] ####[facility] MCV Auto Entitic volume (RBC) 99.7 fL High 82.0-98.0 The [facility] Comment on above: Order Comment: No: D o not add to previous draw Performed By: #### 8 [id number] ####[facility] [facility].[address] Nucleated RBC/100 WBC Ratio (Bld) 0 % Normal 0-0 The [facility] Comment on above: Order Comment: No: D o not add to previous draw Performed By: #### 8 [id number] ####[facility] [facility].[address] PLAT CNT 228 10*3/uL Normal 150-400 The [facility] Comment on above: Order Comment: No: D o not add to previous draw Performed By: #### 8 [id number] ####[facility] RBC Auto #/vol (Bld) 3.70 10*6/uL Low 3.80-5.00 The [facility] Comment on above: Order Comment: No: D o not add to previous draw Performed By: #### 8 [id number] ####[facility] [facility].[address] WBC Auto #/vol (Bld) 14.41 10*3/uL High 4.00-10.60 The [facility] Comment on above: Order Comment: No: D o not add to previous draw Performed By: #### 8 5499 ####[facility] [facility].[address] MAGNESIUM BLOODon 06-29-2018 Magnesium mass conc 2.5 mg/dL Normal 1.9-2.7 The [facility] Comment on above: Order Comment: No: D o not add to previous draw Performed By: #### 8 [id number] ####[facility] [facility] [place] [address], [facility] PHOSPHORUS BLOODon 8 Phosphate mass conc 1.7 mg/dL Low 2.5-5.0 The [facility] Comment on above: Order Comment: No: D o not add to previous draw Performed By: #### 8 [id number] ####[facility] [place] [address].[place] [address], [facility] POC GLUCOSE LABon 06-29-2018 Glucose mass conc 134 mg/dL High 70-100 The [facility] Comment on above: Performed By: #### 8 5499 ####[facility] [place] [address], [facility] Glucose mass conc 168 mg/dL High 70-100 The [facility] Comment on above: Performed By: #### 8 5499 ####[facility] [place] [address], [facility] Glucose mass conc 169 mg/dL High 70-100 The [facility] Comment on above: Performed By: #### 0 0121 ####[address] [address], [facility] Glucose mass conc 180 mg/dL High 70-100 The [facility] Comment on above: Performed By: #### 0 0121 ####[address] [address], [facility] PORTABLE CHEST 1 VIEWon 06-09 PORTABLE CHEST 1 VIEW [facility] ShawDepartment of Cynauwkto[address] [place] [address] Stacy ent Name: VIDHYA GIORDANO : 1940Sex: FAge: Race: WhiteMRN: [id number]. Location: [id number] Status: IVisit #: [id number] Date: 06/29/2018 7:00:00 AMCompleted Date: 06/29/2018 07:23 AMRequesting Provider: MARLIN DELGADO Attending Provider: MEG ABEBE Report Copy To: Signs & Symptoms: Elevated WBCHistory: Patient history not availableComments: R/O PneumoniaExam: PORTABLE CHEST 1 VIEWAccession #: [id number] ===PORTABLE CHEST 1 VIEW 06/29/2018 7:23 AM [...] findings. Electronically signed by:Rhoda Nicole. Transcribed by: [email or web address], User Resident: MARITA MCKEONElectronically Signed by: RHODA NICOLE @ 06/29/2018 09:45 AMI personally read this/these film(s) with this resident Normal [facility] Comment on above: Order Comment: R/O P neumonia *BLOOD CULTUREon 06-28-2018 Bacteria identified in Blood by Culture Clinical Report: (D) Specimen: BLOOD CULTURE Collected: 06/28/2018 18:45 Status: Final Last Updated: 07/04/2018 07:52 CULT RES (Final) No Growth Day 5 Normal The [facility] Comment on above: Performed By: #### 0 0121 ####[facility] [facility].[address] BASIC METABOLIC PANELon 06-09 Calcium mass conc 8.6 mg/dL Normal 8.6-10.3 The [facility] Comment on above: Order Comment: No: D o not add to previous drawNo collection time noted on specimen or requisition. The collection timerecorded is the time of receipt in the lab. Performed By: #### 0 0121 ####[facility] [facility] [place] [address], [facility] Chloride molar conc 106 mmol/L Normal 98-107 The [facility] Comment on above: Order Comment: No: D o not add to previous drawNo collection time noted on specimen or requisition. The collection timerecorded is the time of receipt in the lab. Performed By: #### 0 0121 ####[facility] [facility] [place] [address], [facility] CO2 molar conc 26 mmol/L Normal 21-31 The [facility] Comment on above: Order Comment: No: D o not add to previous drawNo collection time noted on specimen or requisition. The collection timerecorded is the time of receipt in the lab. Performed By: #### 0 0121 ####[facility] [facility] [place] [address], [facility] Creatinine mass conc 1.50 mg/dL High 0.60-1.20 The [facility] Comment on above: Order Comment: No: D o not add to previous drawNo collection time noted on specimen or requisition. The collection timerecorded is the time of receipt in the lab. Performed By: #### 0 0121 ####[facility] [place] [address], [facility] GFR/1.73 sq M predicted among blacks MDRD vol rate/area (S/P/Bld) 41 ml/min/1.73sq m Abnormal >60 The [facility] Comment on above: Order Comment: No: D o not add to previous drawNo collection time noted on specimen or requisition. The collection timerecorded is the time of receipt in the lab. Result Comment: Calc ulation may not be valid for patients over 70 years Performed By: #### 0 0121 ####[facility] [facility] [place] [address], [facility] GFR/1.73 sq M predicted among non-blacks MDRD vol rate/area (S/P/Bld) 33 ml/min/1.73sq m Abnormal >60 The [facility] Comment on above: Order Comment: No: D o not add to previous drawNo collection time noted on specimen or requisition. The collection timerecorded is the time of receipt in the lab. Result Comment: Calc ulation may not be valid for patients over 70 years Performed By: #### 0 0121 ####[place] [address] [place] [address], [facility] Glucose mass conc 170 mg/dL High 70-100 The [facility] Comment on above: Order Comment: No: D o not add to previous drawNo collection time noted on specimen or requisition. The collection timerecorded is the time of receipt in the lab. Performed By: #### 0 0121 ####[address] Potassium molar conc 4.0 mmol/L Normal 3.5-5.1 The [facility] Comment on above: Order Comment: No: D o not add to previous drawNo collection time noted on specimen or requisition. The collection timerecorded is the time of receipt in the lab. Performed By: #### 0 0121 ####[place] [address] Sodium molar conc 137 mmol/L Normal 136-145 The [facility] Comment on above: Order Comment: No: D o not add to previous drawNo collection time noted on specimen or requisition. The collection timerecorded is the time of receipt in the lab. Performed By: #### 0 0121 ####[place] [address] Urea nitrogen mass conc 23 mg/dL Normal 7-25 The [facility] Comment on above: Order Comment: No: D o not add to previous drawNo collection time noted on specimen or requisition. The collection timerecorded is the time of receipt in the lab. Performed By: #### 0 0121 ####[address] CBC W/DIFFon 06-28-2018 ABS BASOPHILS 0.0 10*3/uL Normal 0.0-0.2 The [facility] Comment on above: Order Comment: No: D o not add to previous drawNo collection time noted on specimen or requisition. The collection timerecorded is the time of receipt in the lab. Performed By: #### 0 0121 ####[address] ABS IMM GRANS 0.1 10*3/uL Normal 0.0-0.2 The [facility] Comment on above: Order Comment: No: D o not add to previous drawNo collection time noted on specimen or requisition. The collection timerecorded is the time of receipt in the lab. Performed By: #### 0 0121 ####[address] ABS NEUTROPHILS 9.5 10*3/uL High 1.6-7.6 The [facility] Comment on above: Order Comment: No: D o not add to previous drawNo collection time noted on specimen or requisition. The collection timerecorded is the time of receipt in the lab. Performed By: #### 0 0121 ####[facility] Basophils Auto #/vol (Bld) 0.2 % Normal 0.0-1.0 The [facility] Comment on above: Order Comment: No: D o not add to previous drawNo collection time noted on specimen or requisition. The collection timerecorded is the time of receipt in the lab. Performed By: #### 0 0121 ####[facility] Eosinophils Auto #/vol (Bld) 0.0 10*3/uL Normal 0.0-0.5 The [facility] Comment on above: Order Comment: No: D o not add to previous drawNo collection time noted on specimen or requisition. The collection timerecorded is the time of receipt in the lab. Performed By: #### 0 0121 ####[place] [address] Eosinophils/100 WBC Auto (Bld) 0.1 % Normal 0.0-6.0 The [facility] Comment on above: Order Comment: No: D o not add to previous drawNo collection time noted on specimen or requisition. The collection timerecorded is the time of receipt in the lab. Performed By: #### 0 0121 ####[facility] Erythrocyte distribution width Auto Ratio (RBC) 14.0 % Normal 11.5-15.0 [facility] Comment on above: Order Comment: No: D o not add to previous drawNo collection time noted on specimen or requisition. The collection timerecorded is the time of receipt in the lab. Performed By: #### 0 0121 ####[address] Hematocrit Auto Volume Fraction (Bld) 35.7 % Low 36.0-45.0 The [facility] Comment on above: Order Comment: No: D o not add to previous drawNo collection time noted on specimen or requisition. The collection timerecorded is the time of receipt in the lab. Performed By: #### 0 0121 ####[facility] Hemoglobin mass conc (Bld) 11.9 g/dL Low 12.0-15.0 [facility] Comment on above: Order Comment: No: D o not add to previous drawNo collection time noted on specimen or requisition. The collection timerecorded is the time of receipt in the lab. Performed By: #### 0 0121 ####[place] [address] IMMATURE GRANS 0.4 % Normal 0.0-1.0 The [facility] Comment on above: Order Comment: No: D o not add to previous drawNo collection time noted on specimen or requisition. The collection timerecorded is the time of receipt in the lab. Performed By: #### 0 0121 ####[address] Lymphocytes Auto #/vol (Bld) 2.5 10*3/uL Normal 1.2-4.0 [facility] Comment on above: Order Comment: No: D o not add to previous drawNo collection time noted on specimen or requisition. The collection timerecorded is the time of receipt in the lab. Performed By: #### 0 0121 ####[address] Lymphocytes/100 WBC Auto (Bld) 18.4 % Low 20.0-45.0 The [facility] Comment on above: Order Comment: No: D o not add to previous drawNo collection time noted on specimen or requisition. The collection timerecorded is the time of receipt in the lab. Performed By: #### 0 0121 ####[facility] MCH Auto Entitic mass (RBC) 31.7 pg Normal 27.0-33.0 [facility] Comment on above: Order Comment: No: D o not add to previous drawNo collection time noted on specimen or requisition. The collection timerecorded is the time of receipt in the lab. Performed By: #### 0 0121 ####[facility] MCHC Auto mass conc (RBC) 33.3 g/dL Normal 32.0-35.0 [facility] Comment on above: Order Comment: No: D o not add to previous drawNo collection time noted on specimen or requisition. The collection timerecorded is the time of receipt in the lab. Performed By: #### 0 0121 ####[facility] MCV Auto Entitic volume (RBC) 95.2 fL Normal 82.0-98.0 [facility] Comment on above: Order Comment: No: D o not add to previous drawNo collection time noted on specimen or requisition. The collection timerecorded is the time of receipt in the lab. Performed By: #### 0 0121 ####[place] [address] Monocytes Auto #/vol (Bld) 1.3 10*3/uL High 0.1-1.0 The [facility] Comment on above: Order Comment: No: D o not add to previous drawNo collection time noted on specimen or requisition. The collection timerecorded is the time of receipt in the lab. Performed By: #### 0 0121 ####[facility] MONOS 10.0 % Normal 5.0-12.0 The [facility] Comment on above: Order Comment: No: D o not add to previous drawNo collection time noted on specimen or requisition. The collection timerecorded is the time of receipt in the lab. Performed By: #### 0 0121 ####[facility] Neutrophils/100 WBC Auto (Bld) 70.9 % Normal 40.0-72.0 [facility] Comment on above: Order Comment: No: D o not add to previous drawNo collection time noted on specimen or requisition. The collection timerecorded is the time of receipt in the lab. Performed By: #### 0 0121 ####[facility] Nucleated RBC/100 WBC Ratio (Bld) 0 % Normal 0-0 [facility] Comment on above: Order Comment: No: D o not add to previous drawNo collection time noted on specimen or requisition. The collection timerecorded is the time of receipt in the lab. Performed By: #### 0 0121 ####[facility] PLAT CNT 236 10*3/uL Normal 150-400 [facility] Comment on above: Order Comment: No: D o not add to previous drawNo collection time noted on specimen or requisition. The collection timerecorded is the time of receipt in the lab. Performed By: #### 0 0121 ####[facility] RBC Auto #/vol (Bld) 3.75 10*6/uL Low 3.80-5.00 [facility] Comment on above: Order Comment: No: D o not add to previous drawNo collection time noted on specimen or requisition. The collection timerecorded is the time of receipt in the lab. Performed By: #### 0 0121 ####[facility] [facility].[address] WBC Auto #/vol (Bld) 13.43 10*3/uL High 4.00-10.60 The [facility] Comment on above: Order Comment: No: D o not add to previous drawNo collection time noted on specimen or requisition. The collection timerecorded is the time of receipt in the lab. Performed By: #### 0 0121 ####[facility] [facility] [place] [address], [facility] MAGNESIUM BLOODon 06-28-2018 Magnesium mass conc 1.7 mg/dL Low 1.9-2.7 The [facility] Comment on above: Order Comment: No: D o not add to previous drawNo collection time noted on specimen or requisition. The collection timerecorded is the time of receipt in the lab. Performed By: #### 1 0070, [id number], [id number] ####[facility] [facility] [place] [address], [facility] PHOSPHORUS BLOODon 8 Phosphate mass conc 3.4 mg/dL Normal 2.5-5.0 The [facility] Comment on above: Order Comment: No: D o not add to previous drawNo collection time noted on specimen or requisition. The collection timerecorded is the time of receipt in the lab. Performed By: #### 1 0070, [id number], [id number] ####[facility] [facility] [place] [address], [facility] POC GLUCOSE LABon 06-28-2018 Glucose mass conc 166 mg/dL High 70-100 The [facility] Comment on above: Performed By: #### 0 0121 ####[facility] [facility] [place] [address], [facility] Glucose mass conc 168 mg/dL High 70-100 The [facility] Comment on above: Performed By: #### 0 0121 ####[facility] [facility] [place] [address], [facility] Glucose mass conc 141 mg/dL High 70-100 The [facility] Comment on above: Performed By: #### 0 0121 ####[facility] [facility] [place] [address], [facility] Glucose mass conc 180 mg/dL High 70-100 The [facility] Comment on above: Performed By: #### 8 5499 ####[facility] [place] [address], [facility] PORTABLE CHEST 1 VIEWon 06-09 PORTABLE CHEST 1 VIEW [facility] Shaw[facility] A[facility] [place] [id number] Stacy ent Name: VIDHYA GIORDANO : 1940Sex: FAge: Race: WhiteMRN: [id number]. Location: [id number] Status: IVisit #: [id number] Date: 06/28/2018 6:35:00 PMCompleted Date: 06/28/2018 07:38 PMRequesting Provider: VINICIO REAVES Attending Provider: MEG ABEBE Report Copy To: Signs & Symptoms: FeverHistory: Patient history not availableComments: R/O InfiltratesExam: PORTABLE CHEST 1 VIEWAccession #: [id number] ===PORTABLE CHEST 1 VIEW 06/28/2018 7:38 PM [...] findings. Electronically signed by:Rhoda Nicole. Transcribed by: [email or web address], User Resident: MARITA MCKEONElectronically Signed by: RHODA NICOLE @ 06/29/2018 09:22 AMI personally read this/these film(s) with this resident Normal The [facility] Comment on above: Order Comment: R/O I nfiltrates URINALYSIS REFLEXon 06-28-20 18 APPEARANCE CLEAR Normal CLEAR The [facility] Comment on above: Order Comment: No: D o not add to previous drawCriteria for reflexing a culture was not met. Please call the lab [phone] within 24 hours of collection time if culture is needed Performed By: #### 0 0121 ####[facility] [facility] [place] [address], [facility] BILIRUBIN Negative Normal NEGATIVE The [facility] Comment on above: Order Comment: No: D o not add to previous drawCriteria for reflexing a culture was not met. Please call the lab [phone] within 24 hours of collection time if culture is needed Performed By: #### 0 0121 ####[facility] [place] [address], [facility] BLOOD Negative Normal NEGATIVE The [facility] Comment on above: Order Comment: No: D o not add to previous drawCriteria for reflexing a culture was not met. Please call the lab [phone] within 24 hours of collection time if culture is needed Performed By: #### 0 0121 ####[facility] [place] [address], [place] COLOR YELLOW Normal YELLOW The [facility] Comment on above: Order Comment: No: D o not add to previous drawCriteria for reflexing a culture was not met. Please call the lab [phone] within 24 hours of collection time if culture is needed Performed By: #### 0 0121 ####[facility] [place] [address], [place] GLUCOSE Negative Normal NEGATIVE The [facility] Comment on above: Order Comment: No: D o not add to previous drawCriteria for reflexing a culture was not met. Please call the lab [phone] within 24 hours of collection time if culture is needed Performed By: #### 0 0121 ####[facility] [facility] [place] [address], [facility] KETONE Negative Normal NEGATIVE The [facility] Comment on above: Order Comment: No: D o not add to previous drawCriteria for reflexing a culture was not met. Please call the lab [id number] within 24 hours of collection time if culture is needed Performed By: #### 0 0121 ####[facility] [facility] [place] [address], [place] Negative Normal NEGATIVE The [facility] Comment on above: Order Comment: No: D o not add to previous drawCriteria for reflexing a culture was not met. Please call the lab [phone] within 24 hours of collection time if culture is needed Performed By: #### 0 0121 ####[facility] [facility] [place] [address], [place] MICRO NOT DONE negative chemical reactions unless requested in original order Normal The [facility] Comment on above: Order Comment: No: D o not add to previous drawCriteria for reflexing a culture was not met. Please call the lab [phone] within 24 hours of collection time if culture is needed Performed By: #### 0 0121 ####[facility] [address], [facility] NITRITE Negative Normal NEGATIVE The [facility] Comment on above: Order Comment: No: D o not add to previous drawCriteria for reflexing a culture was not met. Please call the lab [id number] within 24 hours of collection time if culture is needed Performed By: #### 0 0121 ####[facility] [facility].[address] PH 5.0 Normal 5.0-8.0 The [facility] Comment on above: Order Comment: No: D o not add to previous drawCriteria for reflexing a culture was not met. Please call the lab [phone] within 24 hours of collection time if culture is needed Performed By: #### 0 0121 ####[facility] Protein mass conc Negative Normal NEGATIVE The [facility] Comment on above: Order Comment: No: D o not add to previous drawCriteria for reflexing a culture was not met. Please call the lab [phone] within 24 hours of collection time if culture is needed Performed By: #### 0 0121 ####[facility] SPEC GRAV 1.013 Low 1.015-1.020 The [facility] Comment on above: Order Comment: No: D o not add to previous drawCriteria for reflexing a culture was not met. Please call the lab [phone] within 24 hours of collection time if culture is needed Performed By: #### 0 0121 ####[facility] [facility].[address] APTTon 06-27-2018 aPTT Coag time (Bld) 33.7 s Normal 25.0-35.0 The [facility] Comment on above: Result Comment: ALL RESULTS [...] THIS PURPOSE. Performed By: #### 5 6101, [id number] ####[facility] [facility].[address] POC GLUCOSE LABon 06-27-2018 Glucose mass conc 164 mg/dL High 70-100 The [facility] Comment on above: Performed By: #### 8 5499 ####[facility] [facility].[address] Glucose mass conc 194 mg/dL High 70-100 [facility] Comment on above: Performed By: #### 8 5499 ####[facility] [facility].[address] Glucose mass conc 115 mg/dL High 70-100 The [facility] Comment on above: Performed By: #### 8 5499 ####[facility] [facility].[address] PROTHROMBIN TIMEon 8 INR Coag RelTime (PPP) 1.07 {INR} Normal 0.91-1.16 [facility] Comment on above: Result Comment: ACCC P RECOMMENDED INR FOR WARFARIN THERAPY CONDITION INRPROPHYLAXIS OF VENOUS THROMBOSIS 2-3(HIGH-RISK SURGERY)TREATMENT OF VENOUS THROMBOSIS 2-3TREATMENT OF PULMONARY EMBOLISM 2-3PREVENTION OF SYSTEMIC EMBOLISM: 2-3 ACUTE MYOCARDIAL INFARCTION TISSUE HEART VALVES VALVULAR HEART DISEASE ATRIAL FIBRILLATION RECURRENT SYSTEMIC EMBOLISMMECHANICAL HEART VALVE 2.5-3.5 FROM: ORAL ANTICOAGULANTS. MECHANISM OF ACTION, CLINICALEFFECTIVENESS, AND OPTIMAL THERAPEUTIC RANGE. [id number]. Performed By: #### 5 6101, 07356 ####[facility] Prothrombin time (PT) Coag time (PPP) 13.9 s Normal 12.3-14.8 The [facility] Comment on above: Result Comment: ALL RESULTS MUST BE INTERPRETED WITH RESPECT TO BLOOD DRAWING ARTIFACTOR DILUTION ERROR OF ANTICOAGULANT AT THE TIME OF SAMPLING. Performed By: #### 5 6101, [id number] ####[facility] CBC W/DIFFon 05-24-2018 ABS BASOPHILS 0.1 10*3/uL Normal 0.0-0.2 The [facility] Comment on above: Performed By: #### 5 0103 ####[facility] ABS IMM GRANS 0.1 10*3/uL Normal 0.0-0.2 The [facility] Comment on above: Performed By: #### 5 0103 ####[place] [address] ABS NEUTROPHILS 4.6 10*3/uL Normal 1.6-7.6 The [facility] Comment on above: Performed By: #### 5 0103 ####[facility] Basophils Auto #/vol (Bld) 0.7 % Normal 0.0-1.0 The [facility] Comment on above: Performed By: #### 5 0103 ####[facility] [facility].[address] Eosinophils Auto #/vol (Bld) 0.5 10*3/uL Normal 0.0-0.5 The [facility] Comment on above: Performed By: #### 5 0103 ####[facility] [facility].[address] Eosinophils/100 WBC Auto (Bld) 5.2 % Normal 0.0-6.0 The [facility] Comment on above: Performed By: #### 3 ####[facility] [facility].[address] Erythrocyte distribution width Auto Ratio (RBC) 13.8 % Normal 11.5-15.0 The [facility] Comment on above: Performed By: #### 3 ####[facility] Hematocrit Auto Volume Fraction (Bld) 40.0 % Normal 36.0-45.0 The [facility] Comment on above: Performed By: #### 3 ####[facility] [facility].[address] Hemoglobin mass conc (Bld) 13.0 g/dL Normal 12.0-15.0 The [facility] Comment on above: Performed By: #### 5 3 ####[facility] IMMATURE GRANS 0.6 % Normal 0.0-1.0 The [facility] Comment on above: Performed By: #### 5 3 ####[facility] [facility].[address] Lymphocytes Auto #/vol (Bld) 3.1 10*3/uL Normal 1.2-4.0 The [facility] Comment on above: Performed By: #### 5 3 ####[facility] [facility].[address] Lymphocytes/100 WBC Auto (Bld) 33.5 % Normal 20.0-45.0 The [facility] Comment on above: Performed By: #### 0103 ####[facility] MCH Auto Entitic mass (RBC) 31.9 pg Normal 27.0-33.0 The [facility] Comment on above: Performed By: #### 3 ####[facility] MCHC Auto mass conc (RBC) 32.5 g/dL Normal 32.0-35.0 The [facility] Comment on above: Performed By: #### 3 ####[facility] MCV Auto Entitic volume (RBC) 98.0 fL Normal 82.0-98.0 The [facility] Comment on above: Performed By: #### 3 ####[facility] Monocytes Auto #/vol (Bld) 1.0 10*3/uL Normal 0.1-1.0 The [facility] Comment on above: Performed By: #### 3 ####[facility] MONOS 10.3 % Normal 5.0-12.0 The [facility] Comment on above: Performed By: #### 5 3 ####[facility] Neutrophils/100 WBC Auto (Bld) 49.7 % Normal 40.0-72.0 The [facility] Comment on above: Performed By: #### 3 ####[facility] Nucleated RBC/100 WBC Ratio (Bld) 0 % Normal 0-0 The [facility] Comment on above: Performed By: #### 3 ####[facility] [address], [facility] PLAT CNT 258 10*3/uL Normal 150-400 The [facility] Comment on above: Performed By: #### 102 ####[facility] [facility] [place] [address], [facility] RBC Auto #/vol (Bld) 4.08 10*6/uL Normal 3.80-5.00 The [facility] Comment on above: Performed By: #### 5 010 ####[facility] [facility] [place] [address], [facility] WBC Auto #/vol (Bld) 9.35 10*3/uL Normal 4.00-10.60 The [facility] Comment on above: Performed By: #### 102 ####[facility] [facility].[address] COMP METABOLIC PANELon 05-24 Albumin mass conc 4.1 g/dL Normal 3.5-5.7 The [facility] Comment on above: Performed By: #### 0 0121 ####[place] [address] [facility].[address] ALKALINE PHOSPH 64 IU/L Normal 34-104 The [facility] Comment on above: Performed By: #### 0 0121 ####[facility] [facility].[address] ALT enzyme act/vol 26 U/L Normal 7-52 The [facility] Comment on above: Performed By: #### 0 0121 ####[place] [address] [facility].[address] AST enzyme act/vol 32 U/L Normal 13-39 The [facility] Comment on above: Performed By: #### 0 0121 ####[address] Bilirubin mass conc 0.4 mg/dL Normal 0.3-1.0 The [facility] Comment on above: Performed By: #### 0 0121 ####[facility] [facility] [place] [address], [facility] Calcium mass conc 10.2 mg/dL Normal 8.6-10.3 The [facility] Comment on above: Performed By: #### 0 0121 ####[facility] [facility] [place] [address], [facility] Chloride molar conc 102 mmol/L Normal 98-107 The [facility] Comment on above: Performed By: #### 0 0121 ####[facility] [facility] [place] [address], [facility] CO2 molar conc 24 mmol/L Normal 21-31 The [facility] Comment on above: Performed By: #### 0 0121 ####[facility] [place] [address], [facility] Creatinine mass conc 1.41 mg/dL High 0.60-1.20 The [facility] Comment on above: Performed By: #### 0 0121 ####[facility] [place] [address], [facility] GFR/1.73 sq M predicted among blacks MDRD vol rate/area (S/P/Bld) 44 ml/min/1.73sq m Abnormal >60 The [facility] Comment on above: Result Comment: Calc ulation may not be valid for patients over 70 years Performed By: #### 0 0121 ####[facility] [facility] [place] [address], [facility] GFR/1.73 sq M predicted among non-blacks MDRD vol rate/area (S/P/Bld) 36 ml/min/1.73sq m Abnormal >60 The [facility] Comment on above: Result Comment: Calc ulation may not be valid for patients over 70 years Performed By: #### 0 0121 ####[facility] [facility] [place] [address], [facility] Glucose mass conc 129 mg/dL High 70-100 The [facility] Comment on above: Performed By: #### 0 0121 ####[facility] [facility] [place] [address], [facility] Potassium molar conc 5.1 mmol/L Normal 3.5-5.1 The [facility] Comment on above: Performed By: #### 0 0121 ####[facility] [facility] [place] [address], [facility] Protein mass conc 7.6 g/dL Normal 6.0-8.3 The [facility] Comment on above: Performed By: #### 0 0121 ####[facility] [facility] [place] [address], [facility] Sodium molar conc 134 mmol/L Low 136-145 The [facility] Comment on above: Performed By: #### 0 0121 ####[facility] [facility] [place] [address], [facility] Urea nitrogen mass conc 25 mg/dL Normal 7-25 The [facility] Comment on above: Performed By: #### 0 0121 ####[facility] [place], [place] [id number] [place] [address] Progress Noteon 12-02-2017 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 [facility] 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 [facility] Vital Signs Date Time Vital Sign Value Performing Clinician Manohari shana 05-03-2024 13: Body height 152.4 cm MD Kael Adkins Work Phone: [facility] 05-03-2024 13: Body mass index (BMI) [Ratio] 31.5 kg/m2 MD Kael Adkins Work Phone: [facility] 05-03-2024 13: Body weight 73.2 kg MD Kael Adkins Work Phone: [facility] 05-03-2024 13:020400 Body temperature 97.3 [degF] MD Kael Adkins Work Phone: [facility] 05-03-2024 13:020400 Diastolic blood pressure 59 mm[Hg] MD Kael Adkins Work Phone: [facility] 05-03-2024 13:020400 Heart rate 56 /min MD Kael Adkins Work Phone: [facility] 05-03-2024 13:020400 Respiratory rate 20 /min MD Kael Adkins Work Phone: [facility] 05-03-2024 13:020400 Systolic blood pressure 106 mm[Hg] MD Kael Adkins Work Phone: [facility] Encounters Encounter Date Encounter Type Care Provider Facility Start: 03-07-2025 End: 03-07-2025 ambulatory Kael Adkins [facility] Work Phone: Start: 03-07-2025 End: 03-07-2025 Departed Referred Kael Adkins MD Work Phone: [facility] Start: 03-05-2025 End: 03-05-2025 ambulatory [facility] Start: 05-03-2024 End: 05-03-2024 ambulatory MD Kael Adkins Work Phone: [facility] Work Phone: Start: 05-03-2024 End: 05-03-2024 Discharged Recurring MD Kael Adkins Work Phone: [facility] Work Phone: Start: 12-13-2023 End: 12-13-2023 Clinical Support Anna Kumar CCC-A Work Phone: [facility] Comment on above: Bilateral impacted c erumen (Primary Dx) Start: 01-22-2023 End: 01-22-2023 ambulatory STACIA ARIANNA Facility:[facility] Start: 11-16-2022 End: 11-17-2022 ambulatory NONE LISTED REQUEST Facility:[facility] Start: 09-16-2022 ambulatory STACIAKRISSY KELLER Facility: [facility] Start: 08-28-2022 End: 08-29-2022 ambulatory KAEL ADKINS Facility:[facility] Start: 02-11-2022 End: 02-12-[address] DOCTOR JUAREZ Facility:[facility] Start: 02-08-2022 End: 02-08-[address] KAEL ADKINS . Facility:[facility] Start: 02-04-2022 ambulatory STACIA KELLER Facility: [facility] Start: 02-01-2022 End: 02-01-[address] KAEL ADKINS . Facility: Start: 06-27-2018 End: 07-19-2018 Evaluation and management of inpatient MEG ABEBE Facility:[facility] Start: 05-24-2018 End: 05-25-2018 Patient encounter MEG ABEBE Facility:[facility] Start: 04-19-2018 End: 04-20-2018 Patient encounter MEG ABEBE Facility:[facility] Procedures Date Procedure Procedure Detail Performing [...] on above: Performed By: #### 5 6101, [id number] ####[facility] [place] [address], [facility] Start: 06-28-2018 INTRODUCE OF OTH THE RAP SUBST INTO RESP TRACT, VIA OPENING TOMERIN MIS Start: 06-27-2018 EXCISION OF ABD SUBC U/FASCIA, OPEN APPROACH MEG ABEBE Start: 06-27-2018 REPAIR SMALL INTESTI NE, OPEN APPROACH MEG ABEBE Plan of Treatment Date Care Activity Detail Author Start: 03-07-2025 Bacteria identified in Urine by Culture Urine Culture [facility] Start: 03-07-2025 Urine culture [facility] Start: 2004 Pneumococcal Vaccine: 65+ Years (1 - PCV) Pneumococcal Vaccine: 65+ Years (1 - PCV) [facility] Payers Date Payer Category Payer Private Health Insurance [facility] [id number] 2020 Self-pay [id number] 1960 Medicare [id number] 1960 Self-pay [id number] 1959 Unknown 1959 Unknown [id number] 1939 Unknown [id number] 2.16.8 40.1.985800.3.579.2.647 1939 Unknown [id number] 2.16.8 40.1.082840.3.579.2.647 1939 Unknown [id number] 2.16.8 40.1.734718.3.579.2.647 1939 Unknown [id number] 2.16.84 0.1.835917.3.579.2.718 1939 Unknown [id number] 2.16.84 0.1.478258.3.579.2.593 1939 Unknown [id number] 2.16.84 0.1.887907.3.579.2.593 1939 Unknown [id number] 2.16.84 0.1.487721.3.579.2.593 1939 Unknown [id number] 2.16.84 0.1.418662.3.579.2.593 1939 Unknown [id number] 2.16.84 0.1.487331.3.579.2.593 1939 Unknown [id number] 2.16.84 0.1.801304.3.579.2.593 1939 Unknown [id number] 2.16.84 0.1.655368.3.579.2.593 1939 Unknown [id number] 2.16.84 0.1.034214.3.579.2.1259 1939 Unknown [id number] 2.16. 840.1.646357.3.579.2.1286 Medicare [id number] Unknown [id number] 2.16.8 40.1.354664.3.579.2.531 Unknown [id number] 2.16.8 40.1.962460.3.579.2.531 Social History Date Type Detail Facility Tobacco smoking status NHIS Tobacco smoking consumption unknown [facility] Start: 1940 Sex Assigned At Not on file [facility] Gender identity Not [facility] file [facility] Start: 05-03-2024 Tobacco smoking status NHIS Ex-smoker (finding) [facility] Start: 1940 Sex Assigned At Female F [facility] Start: 03-09-2025 Sex Female (finding) [facility] Clinical Notes 10-17-2020 to 05-03-2024 Note Date & Type Note Facility 05-03-2024 Progress note Note Date/Time May 03, 2024 1:14pm [facility] [address] [place] [address] Wound Center Provider Note Signed Patient: Vidhya Giordano MR#: [id number] : 1940 Acct:[id number] Age/Sex: 83 / F Copies to: MD Wendy Verdugo APRN~ HPI Date of Visit Date of Visit: Date of Service: 05/03/2024 Time of Service: 13:12 Narrative HPI: Vidhya is an 81 year old female presenting to [facility] wound care program for afollow up visit [...] 05/19/23 stable again, was apparently dc'd from [facility] and so we will order suppliesfrom [...] are happy with this order, spoke about [facility] again and they will think about [...] Intensity: 7 Wound/Ulcer History Mode of Arrival/ Dampener: Family Assistive Device Used Today: Wheelchair Lives with:: Children Appetite Description: Within Normal Limits Who helps w/ dressing change?: Home Health Why Do You Need Help?: Can't Reach Ulcer, Limited mobility, Unsafe leave home byself and Taxing effort to leave home Smoking Status: Former smoker [facility] Medical History (Updated 07/14/23 @ 13:12 by [...] Full Bed Appearance: Beefy Red, Hypergranulation and Eulonia Percent of Wound Bed Granulated/Red: 100 Percent [...] By: <Electronically signed by DG Scott> 05/03/241313 [facility] Work Phone: 1(697) 465-588204-24-2024 Progress note Author Wendy Scott [facility] March 01, 2024 2:57pm Note Date/Time March 01, 2024 2:5 8pm [facility] [address] [place] [address] Wound Center Provider Note Signed Patient: Vidhya Giordano MR#: [id number] : 1940 Acct:[id number] Age/Sex: 83 / F Copies to: MD Wendy Verdugo, DG~ HPI Date of Visit Date of Visit: Date of Service: 03/01/2024 Time of Service: 14:55 Narrative HPI: Vidhya is an 81 year old female presenting to [facility] wound care program for afollow up visit [...] 05/19/23 stable again, was apparently dc'd from [facility] and so we will order suppliesfrom [...] are happy with this order, spoke about [facility] again and they will think about [...] the time Wound/Ulcer History Mode of Arrival/ Dampener: Family Assistive Device Used Today: Wheelchair Lives with:: Children Appetite Description: Within Normal Limits Who helps w/ dressing change?: Home Health Why Do You Need Help?: Can't Reach Ulcer, Limited mobility, Unsafe leave home byself and Taxing effort to leave home Smoking Status: Former smoker [facility] Medical History (Updated 07/14/23 @ 13:12 by [...] Thickness: Full Bed Appearance: Beefy Red and Eulonia Percent of Wound Bed Granulated/Red: 100 Percent [...] <Electronically signed by DG Scott> 03/01/24 1454 [facility] Work Phone: 1(508) 514-407902-21-2024 Progress note Author Wendy Scott [facility] December 29, 2023 1:12pm Note Date/Time December 29, 2023 1:34pm [facility] [address] [place] [address] Wound Center Provider Note Signed Patient: Vidhya Giordano MR#: [id number] : 1940 Acct:[id number] Age/Sex: 83 / F Copies to: MD Wendy Verdugo APRN~ HPI Date of Visit Date of Visit: Date of Service: 12/29/2023 Time of Service: 13:10 Narrative HPI: Vidhya is an 81 year old female presenting to [facility] wound care program for afollow up visit [...] 05/19/23 stable again, was apparently dc'd from [facility] and so we will order suppliesfrom [...] Intensity: 0 Wound/Ulcer History Mode of Arrival/ Dampener: Family Assistive Device Used Today: Wheelchair Lives with:: Children Appetite Description: Within Normal Limits Who helps w/ dressing change?: Home Health Why Do You Need Help?: Can't Reach Ulcer, Limited mobility, Unsafe leave home byself and Taxing effort to leave home Smoking Status: Former smoker [facility] Medical History (Updated 07/14/23 @ 13:12 by [...] Thickness: Full Bed Appearance: Beefy Red and Eulonia Percent of Wound Bed Granulated/Red: 100 Percent [...] <Electronically signed by DG Scott> 12/29/23 1312 [facility] Work Phone: 1(170) 992-906802-05-2024 History of Present illness Narrative* ZORA Infante [...] Pt to return prn documented [id number] Progress note Author Wendy Scott [facility] November 03, 2023 1:09pm Note Date/Time November 03, 2023 1:09pm [facility] [address] [place] [address] Wound Center Provider Note Signed Patient: Vidhya Giordano MR#: [id number] : 1940 Acct:[id number] Age/Sex: 83 / F Copies to: MD Wendy Verdugo APRN~ HPI Date of Visit Date of Visit: Date of Service: 11/03/2023 Time of Service: 13:08 Narrative HPI: Vidhya is an 81 year old female presenting to [facility] wound care program for afollow up visit [...] 05/19/23 stable again, was apparently dc'd from [facility] and so we will order suppliesfrom [...] Intensity: 0 Wound/Ulcer History Mode of Arrival/ Dampener: Family Assistive Device Used Today: Wheelchair Lives with:: Children Appetite Description: Within Normal Limits Who helps w/ dressing change?: Home Health Why Do You Need Help?: Can't Reach Ulcer, Limited mobility, Unsafe leave home byself and Taxing effort to leave home Smoking Status: Former smoker [facility] Medical History (Updated 07/14/23 @ 13:12 by [...] Thickness: Full Bed Appearance: Beefy Red and Eulonia Percent of Wound Bed Granulated/Red: 100 Percent [...] <Electronically signed by DG Scott> 11/03/23 1309 [facility] Work Phone: 1(312) 328-417411-01-2023 Progress note Author Wendy Scott [facility] September 08, 2023 1:10pm Note Date/Time September 08, 2023 1 :10pm [facility] [address] [place] [address] Wound Center Provider Note Signed Patient: Vidhya Giordano MR#: [id number] : 1940 Acct:[id number] Age/Sex: 83 / F Copies to: MD Wendy Verdugo APRN~ HPI Date of Visit Date of Visit: Date of Service: 09/08/2023 Time of Service: 13:08 Narrative HPI: Vidhya is an 81 year old female presenting to [facility] wound care program for afollow up visit [...] 05/19/23 stable again, was apparently dc'd from [facility] and so we will order suppliesfrom [...] Intensity: 0 Wound/Ulcer History Mode of Arrival/ Dampener: Family Assistive Device Used Today: Wheelchair Lives with:: Children Appetite Description: Within Normal Limits Who helps w/ dressing change?: Home Health Why Do You Need Help?: Can't Reach Ulcer, Limited mobility, Unsafe leave home byself and Taxing effort to leave home Smoking Status: Former smoker [facility] Medical History (Updated 07/14/23 @ 13:12 by [...] Thickness: Full Bed Appearance: Beefy Red and Eulonia Percent of Wound Bed Granulated/Red: 100 Percent [...] <Electronically signed by DG Scott> 09/08/23 1310 [facility] Work Phone: 1(877) 745-844409-06-2023 Progress note Author Wendy Scott [facility] July 14, 2023 1:12pm Note Date/Time July 14, 2023 1:13pm [facility] [address] [place] [address] Wound Center Provider Note Signed Patient: Vidhya Giordano MR#: [id number] : 1940 Acct:[id number] Age/Sex: 83 / F Copies to: MD Wendy Verdugo APRN~ HPI Date of Visit Date of Visit: Date of Service: 07/14/2023 Time of Service: 13:10 Narrative HPI: Vidhya is an 81 year old female presenting to [facility] wound care program for afollow up visit [...] 05/19/23 stable again, was apparently dc'd from [facility] and so we will order suppliesfrom [...] Intensity: 0 Wound/Ulcer History Mode of Arrival/ Dampener: Family Assistive Device Used Today: Wheelchair Lives with:: Children Appetite Description: Within Normal Limits Who helps w/ dressing change?: Home Health Why Do You Need Help?: Can't Reach Ulcer, Limited mobility, Unsafe leave home byself and Taxing effort to leave home Smoking Status: Former smoker [facility] Medical History (Updated 07/14/23 @ 13:12 by [...] Thickness: Full Bed Appearance: Beefy Red and Eulonia Percent of Wound Bed Granulated/Red: 100 Percent [...] <Electronically signed by DG Scott> 07/14/23 1312 [facility] Work Phone: 1(415) 759-853207-12-2023 Progress note Author Wendy Scott [facility] May 19, 2023 1:22pm Note Date/Time May 19, 2023 1:22 pm [facility] [address] [place] [address] Wound Center Provider Note Signed Patient: Vidhya Giordano MR#: [id number] : 1940 Acct:[id number] Age/Sex: 82 / F Copies to: MD Wendy Verdugo, STUD SETTER~ HPI Date of Visit Date of Visit: Date of Service: 05/19/2023 Time of Service: 13:19 Narrative HPI: Vidhya is an 81 year old female presenting to [facility] wound care program for afollow up visit [...] 05/19/23 stable again, was apparently dc'd from [facility] and so we will order suppliesfrom a dme supplier, orders the same since the daughter prefers it that way, 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, 8 week appt Subjective Pain Abdomen: Pain Intensity: 0 Wound/Ulcer History Mode of Arrival/ Dampener: Family Assistive Device Used Today: Wheelchair Lives with:: Children Appetite Description: Within Normal Limits Who helps w/ dressing change?: Home Health Why Do You Need Help?: Can't Reach Ulcer, Limited mobility, Unsafe leave home byself and Taxing effort to leave home Smoking Status: Former smoker [facility] Medical History (Updated 06/03/22 @ 11:55 by [...] wound) Thickness: Full Bed Appearance: Beefy Red, Eulonia and Hypergranulation Percent of Wound Bed Granulated/Red: [...] <Electronically signed by DG Scott> 05/19/23 1322 [facility] Work Phone: 1(535) 722-902105-17-2023 Progress note Author Wendy Scott [facility] March 24, 2023 1:44pm Note Date/Time March 24, 2023 1:44p m [facility] [address] [place] [address] Wound Center Provider Note Signed Patient: Vidhya Giordano MR#: [id number] : 1940 Acct:[id number] Age/Sex: 82 / F Copies to: Kael Adkins MD Wendy Tyler, STUD SETTER~ HPI Date of Visit Date of Visit: Date of Service: 03/24/2023 Time of Service: 13:42 Narrative HPI: Vidhya is an 81 year old female presenting to [facility] wound care program for afollow up visit [...] from shingles Wound/Ulcer History Mode of Arrival/ Dampener: Family Assistive Device Used Today: Wheelchair Lives with:: Children Appetite Description: Within Normal Limits Who helps w/ dressing change?: Home Health Why Do You Need Help?: Can't Reach Ulcer, Limited mobility, Unsafe leave home byself and Taxing effort to leave home Smoking Status: Former smoker [facility] Medical History (Updated 06/03/22 @ 11:55 by [...] (Non-healing surgical wound) Thickness: Full Bed Appearance: Eulonia and Rolled Edges Percent of Wound Bed [...] <Electronically signed by DG Scott> 03/24/23 1344 [facility] Work Phone: 1(733) 651-209303-08-2023 Progress note Author Wendy Scott [facility] January 13, 2023 1:07pm Note Date/Time January 13, 2023 1:08 pm [facility] [address] [place] [address] Wound Center Provider Note Signed Patient: Vidhya Giordano MR#: [id number] : 1940 Acct:[id number] Age/Sex: 82 / F Copies to: MD Wendy Verdugo APRN~ HPI Date of Visit Date of Visit: Date of Service: 01/13/2023 Time of Service: 13:06 Narrative HPI: Vidhya is an 81 year old female presenting to [facility] wound care program for afollow up visit [...] Intensity: 7 Wound/Ulcer History Mode of Arrival/ Dampener: Family Assistive Device Used Today: Wheelchair Lives with:: Children Appetite Description: Within Normal Limits Who helps w/ dressing change?: Home Health Why Do You Need Help?: Can't Reach Ulcer, Limited mobility, Unsafe leave home byself and Taxing effort to leave home Smoking Status: Former smoker [facility] Medical History (Updated 06/03/22 @ 11:55 by [...] (Non-healing surgical wound) Thickness: Full Bed Appearance: Eulonia and Rolled Edges Percent of Wound Bed [...] <Electronically signed by DG Scott> 01/13/23 1305 [facility] Work Phone: 1(972) 526-800201-11-2023 Progress note Author Wendy Scott [facility] November 18, 2022 11:26am Note Date/Time November 18, 2022 1 1:27am [facility] [address] [place] [address] Wound Center Provider Note Signed Patient: Vidhya Giordano MR#: [id number] : 1940 Acct:[id number] Age/Sex: 82 / F Copies to: MD Wendy Verdugo APRN~ HPI Date of Visit Date of Visit: Date of Service: 11/18/2022 Time of Service: 11:25 Narrative HPI: Vidhya is an 81 year old female presenting to [facility] wound care program for afollow up visit [...] from shingles Wound/Ulcer History Mode of Arrival/ Dampener: Family Assistive Device Used Today: Wheelchair Lives with:: Children Appetite Description: Within Normal Limits Who helps w/ dressing change?: Home Health Why Do You Need Help?: Can't Reach Ulcer, Limited mobility, Unsafe leave home byself and Taxing effort to leave home Smoking Status: Former smoker [facility] Medical History (Updated 06/03/22 @ 11:55 by [...] (Non-healing surgical wound) Thickness: Full Bed Appearance: Eulonia and Rolled Edges Percent of Wound Bed [...] By: <Electronically signed by DG Scott> 11/18/221125 [facility] Work Phone: 1([phone]) 667-891811-16-2022 Progress note Author Wendy Scott [facility] September 23, 2022 11:25am Note Date/Time September 23, 2022 11:25am [facility] [address] [place] [address] Wound Center Provider Note Signed Patient: Vidhya Giordano MR#: [id number] : 1940 Acct:[id number] Age/Sex: 82 / F Copies to: MD Wendy Verdugo APRN~ HPI Date of Visit Date of Visit: Date of Service: 09/23/2022 Time of Service: 11:22 Narrative HPI: Vidhya is an 81 year old female presenting to [facility] wound care program for afollow up visit [...] Intensity: 0 Wound/Ulcer History Mode of Arrival/ Dampener: Family Assistive Device Used Today: Wheelchair Lives with:: Children Appetite Description: Within Normal Limits Who helps w/ dressing change?: Home Health Why Do You Need Help?: Can't Reach Ulcer, Limited mobility, Unsafe leave home byself and Taxing effort to leave home Smoking Status: Former smoker [facility] Medical History (Updated 06/03/22 @ 11:55 by [...] (Non-healing surgical wound) Thickness: Full Bed Appearance: Eulonia and Rolled Edges Percent of Wound Bed [...] <Electronically signed by DG Scott> 09/23/22 1125 [facility] Work Phone: 1(859) 956-163109-21-2022 Progress note Author Wendy Scott [facility] July 29, 2022 11:35am Note Date/Time July 29, 2022 11:34am [facility] [address] [place] [address] Wound Center Provider Note Signed Patient: Vidhya Giordano MR#: [id number] : 1940 Acct:[id number] Age/Sex: 82 / F Copies to: MD Wendy Verdugo APRN~ HPI Date of Visit Date of Visit: Date of Service: 07/29/2022 Time of Service: 11:25 Narrative HPI: Vidhya is an 81 year old female presenting to [facility] wound care program for afollow up visit [...] Intensity: 6 Wound/Ulcer History Mode of Arrival/ Dampener: Family Assistive Device Used Today: Wheelchair Lives with:: Children Appetite Description: Within Normal Limits Who helps w/ dressing change?: Home Health Why Do You Need Help?: Can't Reach Ulcer, Limited mobility, Unsafe leave home byself and Taxing effort to leave home Smoking Status: Former smoker [facility] Medical History (Updated 06/03/22 @ 11:55 by [...] wound) Thickness: Full Bed Appearance: Beefy Red, Eulonia and Rolled Edges Percent of Wound Bed [...] <Electronically signed by DG Scott> 07/29/22 1135 [facility] Work Phone: 1(802) 244-106307-27-2022 Progress note Author Wendy Scott [facility] June 03, 2022 11:56am Note Date/Time June 03, 2022 11:5 5am [facility] [address] [place] [address] Wound Center Provider Note Signed Patient: Vidhya Giordano MR#: [id number] : 1940 Acct:[id number] Age/Sex: 81 / F Copies to: MD Wendy Verdugo APRN~ HPI Date of Visit Date of Visit: Date of Service: 06/03/2022 Time of Service: 11:54 Narrative HPI: Vidhya is an 81 year old female presenting to [facility] wound care program for afollow up visit [...] from shingles Wound/Ulcer History Mode of Arrival/ Dampener: Family Assistive Device Used Today: Wheelchair Lives with:: Children Appetite Description: Within Normal Limits Who helps w/ dressing change?: Home Health Why Do You Need Help?: Can't Reach Ulcer, Limited mobility, Unsafe leave home byself and Taxing effort to leave home Smoking Status: Former smoker [facility] Medical History (Updated 06/03/22 @ 11:55 by [...] wound) Thickness: Full Bed Appearance: Beefy Red, Eulonia and Hypergranulation Percent of Wound Bed Granulated/Red: [...] By: <Electronically signed by DG Scott> 06/03/22 1154 [facility] Work Phone: 1([phone]) 343-817606-01-2022 Progress note Author Wendy Scott [facility] April 08, 2022 1:14pm Note Date/Time April 08, 2022 1:14p m [facility] [address] [place] [address] Wound Center Provider Note Signed Patient: Vidhya Giordano MR#: [id number] : 1940 Acct:[id number] Age/Sex: 81 / F Copies to: MD Wendy Verdugo APRN~ HPI Date of Visit Date of Visit: Date of Service: 04/08/2022 Time of Service: 13:11 Narrative HPI: Vidhya is an 81 year old female presenting to [facility] wound care program for afollow up visit [...] Intensity: 0 Wound/Ulcer History Mode of Arrival/ Dampener: Family Assistive Device Used Today: Wheelchair Lives with:: Children Appetite Description: Within Normal Limits Who helps w/ dressing change?: Home Health Why Do You Need Help?: Can't Reach Ulcer, Limited mobility, Unsafe leave home byself and Taxing effort to leave home Smoking Status: Former smoker [facility] Medical History (Updated 04/08/22 @ 13:13 by [...] <Electronically signed by DG Scott> 04/08/22 1314 [facility] Work Phone: 1([phone]) 990-473104-06-2022 Progress note Author Wendy Scott [facility] February 11, 2022 1:50pm Note Date/Time February 11, 2022 1:50 pm [facility] [address] [place] [address] Wound Center Provider Note Signed Patient: Vidhya Giordano MR#: [id number] : 1940 Acct:[id number] Age/Sex: 81 / F Copies to: MD Wendy Verdugo APRN~ HPI Date of Visit Date of Visit: Date of Service: 02/11/2022 Time of Service: 13:46 Narrative HPI: Vidhya is an 81 year old female presenting to [facility] wound care program for afollow up visit [...] from shingles Wound/Ulcer History Mode of Arrival/ Dampener: Family Assistive Device Used Today: Wheelchair Lives with:: Children Appetite Description: Within Normal Limits Who helps w/ dressing change?: Home Health Why Do You Need Help?: Can't Reach Ulcer, Limited mobility, Unsafe leave home byself and Taxing effort to leave home Smoking Status: Former smoker [facility] Medical History (Updated 01/02/21 @ 15:16 by [...] Thickness: Full Bed Appearance: Beefy Red and Eulonia Percent of Wound Bed Granulated/Red: 90 Percent [...] <Electronically signed by DG Scott> 02/11/22 1350 [facility] Work Phone: 1([phone]) 873-650102-09-2022 Progress note Author Wendy Scott [facility] December 17, 2021 2:16pm Note Date/Time December 17, 2021 2 :16pm [facility] [address] [place] [address] Wound Center Provider Note Signed Patient: Vidhya Giordano MR#: [id number] : 1940 Acct:[id number] Age/Sex: 81 / F Copies to: MD Wendy Verdugo APRN~ HPI Date of Visit Date of Visit: Date of Service: 12/17/2021 Time of Service: 14:13 Narrative HPI: Vidhya is an 81 year old female presenting to [facility] wound care program for afollow up visit [...] is there Wound/Ulcer History Mode of Arrival/ Dampener: Family Assistive Device Used Today: Wheelchair Lives with:: Children Appetite Description: Within Normal Limits Who helps w/ dressing change?: Home Health Why Do You Need Help?: Can't Reach Ulcer, Limited mobility, Unsafe leave home byself and Taxing effort to leave home Smoking Status: Former smoker [facility] Medical History (Updated 01/02/21 @ 15:16 by [...] Thickness: Full Bed Appearance: Beefy Red and Eulonia Percent of Wound Bed Granulated/Red: 100 Percent [...] By: <Electronically signed by DG Scott> 12/17/21 [facility] Work Phone: 1([phone]) 703-898911-29-2021 Progress note Author Wendy Scott [facility] October 06, 2021 11:31am Note Date/Time October 06, 2021 11:31am [facility] [address] [place] [address] Wound Center Provider Note Signed Patient: Vidhya Giordano MR#: [id number] : 1940 Acct:[id number] Age/Sex: 81 / F Copies to: MD Wendy Verdugo APRN~ HPI Date of Visit Date of Visit: Date of Service: 10/06/2021 Time of Service: :29 Narrative HPI: Vidhya is an 81 year old female presenting to [facility] wound care program for afollow up visit [...] is there Wound/Ulcer History Mode of Arrival/ Dampener: Family Assistive Device Used Today: Wheelchair Lives with:: Children Appetite Description: Within Normal Limits Who helps w/ dressing change?: Home Health Why Do You Need Help?: Can't Reach Ulcer, Limited mobility, Unsafe leave home byself and Taxing effort to leave home Smoking Status: Former smoker [facility] Medical History (Updated 01/02/21 @ 15:16 by [...] Thickness: Full Bed Appearance: Beefy Red and Eulonia Percent of Wound Bed Granulated/Red: 100 Percent [...] DD/ 1129 Signed By: <Electronically signed by GD Scott> 10/06/21 1131 [facility] Work Phone: 1(457) 349-818310-11-2021 Progress note Author Wendy Scott [facility] August 18, 2021 11:42am Note Date/Time August 18, 2021 1 1:42am [facility] [address] [place] [address] Wound Center Provider Note Signed Patient: Vidhya Giordano MR#: [id number] : 1940 Acct:[id number] Age/Sex: 81 / F Copies to: MD Wendy Verdugo, STUD SETTER~ HPI Date of Visit Date of Visit: Date of Service: 08/18/2021 Time of Service: 11:37 Narrative HPI: Vidhya is an 81 year old female presenting to [facility] wound care program for afollow up visit [...] is there Wound/Ulcer History Mode of Arrival/ Dampener: Family Assistive Device Used Today: Wheelchair Lives with:: Children Appetite Description: Within Normal Limits Who helps w/ dressing change?: Home Health Why Do You Need Help?: Can't Reach Ulcer, Limited mobility, Unsafe leave home byself and Taxing effort to leave home Smoking Status: Former smoker [facility] Medical History (Updated 01/02/21 @ 15:16 by [...] mg(1,500 mg)-vitamin D3 800 unit chewable tablet ([id number] plus D) 1 tab PO DAILY 12/23/17 [...] Thickness: Full Bed Appearance: Beefy Red and Eulonia Percent of Wound Bed Granulated/Red: 100 Percent [...] <Electronically signed by DG Scott> 08/18/21 1142 [facility] Work Phone: 1(673) 883-102408-16-2021 Progress note Author Wendy Scott [facility] June 23, 2021 11:37am Note Date/Time June 23, 2021 11 :37am [facility] [address] [place] [address] Wound Center Provider Note Signed Patient: Vidhya Giordano MR#: [id number] : 1940 Acct:[id number] Age/Sex: 81 / F Copies to: MD Wendy Verdugo APRN~ HPI Date of Visit Date of Visit: Date of Service: 06/23/2021 Time of Service: 11:35 Narrative HPI: Vidhya is an 81 year old female presenting to [facility] wound care program for a follow up [...] is there Wound/Ulcer History Mode of Arrival/ Dampener: Family Assistive Device Used Today: Wheelchair Lives with:: Children Appetite Description: Within Normal Limits Who helps w/ dressing change?: Home Health Why Do You Need Help?: Can't Reach Ulcer, Limited mobility, Unsafe leave home byself and Taxing effort to leave home Smoking Status: Former smoker [facility] Medical History (Updated 01/02/21 @ 15:16 by [...] mg(1,500 mg)-vitamin D3 800 unit chewable tablet ([id number] plus D) 1 tab PO DAILY 12/23/17 [...] Thickness: Full Bed Appearance: Beefy Red and Eulonia Percent of Wound Bed Granulated/Red: 100 Percent [...] <Electronically signed by DG Scott> 06/23/21 1137 [facility] Work Phone: 1(814) 508-152106-21-2021 Progress note Author Wendy Scott [facility] April 28, 2021 11:22am Note Date/Time April 28, 2021 11:2 2am [facility] [address] [place] [address] Wound Center Provider Note Signed Patient: Vidhya Giordano MR#: [id number] : 1940 Acct:[id number] Age/Sex: 80 / F Copies to: MD Wendy Verdugo APRN~ HPI Date of Visit Date of Visit: Date of Service: 04/28/2021 Time of Service: 11:18 Narrative HPI: Vidhya is an 80 year old female presenting to [facility] wound care program for a follow up [...] Intensity: 0 Wound/Ulcer History Mode of Arrival/ Dampener: Family Assistive Device Used Today: Wheelchair Lives with:: Children Appetite Description: Within Normal Limits Who helps w/ dressing change?: Home Health Why Do You Need Help?: Can't Reach Ulcer, Limited mobility, Unsafe leave home byself and Taxing effort to leave home Smoking Status: Former smoker [facility] Medical History (Updated 01/02/21 @ 15:16 by [...] Thickness: Full Bed Appearance: Beefy Red and Eulonia Percent of Wound Bed Granulated/Red: 100 Percent [...] <Electronically signed by DG Scott> 04/28/21 1122 [facility] Work Phone: 1(366) 323-518805-10-2021 Progress note Author Wendy Scott [facility] March 17, 2021 11:35am Note Date/Time March 17, 2021 11:35 am [facility] [address] [place] [address] Wound Center Provider Note Signed Patient: Vidhya Giordano MR#: [id number] : 1940 Acct:[id number] Age/Sex: 80 / F Copies to: MD Wendy Verdugo APRN~ HPI Date of Visit Date of Visit: Date of Service: 03/17/2021 Time of Service: 11:31 Narrative HPI: Vidhya is an 80 year old female presenting to [facility] wound care program for a follow up [...] is there Wound/Ulcer History Mode of Arrival/ Dampener: Family Assistive Device Used Today: Wheelchair Lives with:: Children Appetite Description: Within Normal Limits Who helps w/ dressing change?: Home Health Why Do You Need Help?: Can't Reach Ulcer, Limited mobility, Unsafe leave home byself and Taxing effort to leave home [facility] Medical History (Updated 01/02/21 @ 15:16 by [...] Thickness: Full Bed Appearance: Beefy Red and Eulonia Percent of Wound Bed Granulated/Red: 100 Percent [...] <Electronically signed by DG Scott> 03/17/21 1135 [facility] Work Phone: 1(252) 952-517503-17-2021 Progress note Author Wendy Scott [facility] January 22, 2021 1:13pm Note Date/Time January 22, 2021 1:1 3pm [facility] [address] [place] [address] Wound Center Provider Note Signed Patient: Vidhya Giordano MR#: [id number] : 1940 Acct:[id number] Age/Sex: 80 / F Copies to: MD Wendy Verdugo APRN~ HPI Date of Visit Date of Visit: Date of Service: 01/22/2021 Time of Service: 13:11 Narrative HPI: Vidhya is an 80 year old female presenting to [facility] wound care program for a follow up [...] is there Wound/Ulcer History Mode of Arrival/ Dampener: Family Assistive Device Used Today: Wheelchair Lives with:: Children Appetite Description: Within Normal Limits Who helps w/ dressing change?: Home Health Why Do You Need Help?: Can't Reach Ulcer, Limited mobility, Unsafe leave home byself and Taxing effort to leave home Smoking Status: Former smoker [facility] Medical History (Updated 01/02/21 @ 15:16 by [...] Thickness: Full Bed Appearance: Beefy Red and Eulonia Percent of Wound Bed Granulated/Red: 100 Percent [...] By: <Electronically signed by DG Scott> 01/22/211312 [facility] Work Phone: 1([phone]) 546-886302-25-2021 Progress note Author Nichole Giordano [facility] January 02, 2021 3:18pm Note Date/Time January 02, 2021 3:15pm [facility] [address] [place] [address] Wound Center Provider Note Signed Patient: Vdihya Giordano MR#: [id number] : 1940 Acct:[id number] Age/Sex: 80 / F Copies to: MD Nichole Verdugo APRN~ HPI Date of Visit Date of Visit: Date of Service: 01/02/2021 Time of Service: 15:14 Narrative HPI: Vidhya is an 80 year old female presenting to [facility] wound care program for an initial visit [...] is there Wound/Ulcer History Mode of Arrival/ Dampener: Family Assistive Device Used Today: Wheelchair Lives with:: Children Appetite Description: Within Normal Limits Who helps w/ dressing change?: Home Health Why Do You Need Help?: Can't Reach Ulcer, Limited mobility, Unsafe leave home byself and Taxing effort to leave home Smoking Status: Former smoker [facility] Medical History (Updated 01/02/21 @ 15:16 by [...] Thickness: Full Bed Appearance: Beefy Red and Eulonia Percent of Wound Bed Granulated/Red: 100 Percent [...] <Electronically signed by DG Giordano> 01/02/21 1518 [facility] Work Phone: 1(965) 291-117701-07-2021 Progress note Author eWndy Scott [facility] November 14, 2020 8:16am Note Date/Time November 14, 2020 8: 16am [facility] [address] [place] [address] Wound Center Provider Note Signed Patient: Vidhya Giordano MR#: [id number] : 1940 Acct:[id number] Age/Sex: 80 / F Copies to: MD Wendy Verdugo APRN~ HPI Date of Visit Date of Visit: Date of Service: 11/14/2020 Time of Service: 08:14 Narrative HPI: Vidhya is an 80 year old female presenting to [facility] wound care program for a follow up [...] is there Wound/Ulcer History Mode of Arrival/ Dampener: Family Assistive Device Used Today: Wheelchair Lives with:: Children Appetite Description: Within Normal Limits Who helps w/ dressing change?: Home Health Why Do You Need Help?: Can't Reach Ulcer, Limited mobility, Unsafe leave home byself and Taxing effort to leave home Smoking Status: Former smoker [facility] Medical History (Updated 11/14/20 @ 08:16 by [...] Wound/Ulcer Abdomen: Bed Appearance: Beefy Red and Eulonia Percent of Wound Bed Granulated/Red: 100 Percent [...] By: <Electronically signed by DG Scott> 11/14/20815 [facility] Work Phone: 1(142) 272-389912-10-2020 Progress note Author Wendy Scott [facility] October 17, 2020 8:39am Note Date/Time October 17, 2020 8:35am [facility] [address] [place] [address] Wound Center Provider Note Signed Patient: Vidhya Giordano MR#: [id number] : 1940 Acct:[id number] Age/Sex: 80 / F Copies to: MD Wendy Verdugo APRN~ HPI Date of Visit Date of Visit: Date of Service: 10/17/2020 Time of Service: 08:32 Narrative HPI: Vidhya is an 80 year old female presenting to [facility] wound care program for an initial visit [...] is there Wound/Ulcer History Mode of Arrival/ Dampener: Family Assistive Device Used Today: Wheelchair Lives with:: Children Appetite Description: Within Normal Limits Who helps w/ dressing change?: Home Health Why Do You Need Help?: Can't Reach Ulcer, Limited mobility, Unsafe leave home byself and Taxing effort to leave home Smoking Status: Former smoker [facility] Medical History (Updated 10/17/20 @ 08:34 by [...] 05/10/19 [History Confirmed 10/17/20] acetaminophen 650 mg SC Q6H PRN 05/10/19 [History Confirmed 10/17/20] allopurinol [...] Rash Wound/Ulcer Abdomen: Bed Appearance: Beefy Red, Eulonia and Hypergranulation Percent of Wound Bed Granulated/Red: [...] <Electronically signed by DG Scott> 10/17/20 0839 [facility] Work Phone: Evaluation note* Diagnosis Bilateral impacted cerumen- Primary Impacted cerumen documented in this encounter [facility] Diagnosis Onset Date Resolution Status Dementia chronic Gastrointestinal fistula chr onic Inflammation chronic Limited mobility chronic Obesity chronic 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 Surgical wound, non healing chronic Candidiasis resolved [facility] Work Phone: Evaluation noteNo assessment information available [facility] Work Phone: Summary Purpose Family History No Family History Records Found Relationship Condition Age at Onset Recorded Date/T scott mother Malignant neoplasm Unknown daughter Malignant neoplasm Unknown sister Malignant neoplasm Unknown Advance Directives No Advanced Directives Records Found Advance Directive Response Recorded Date/ Time Advance Directives No December 11:26am Hospital Course Note [id number] Admitted: 06/27/2018 Discharged: 07/19/2018 Date of : 1940 Physician: Meg Abebe M.D. DISCHARGE SUMMARYDISCHARGE ATTENDING: Jianlin Abebe, M.D.PRINCIPAL DIAGNOSIS: Enterocutaneous fistula.SECONDARY DIAGNOSES: Depression, hypertension, diabetes mellitus,neuropathy.PROCEDURES PERFORMED AND TREATMENT RENDERED: The patient is a [id number] with a history of ventral hernia repair. [...] Dementia Gastrointestinal fistula Inflammation Limited mobility Obesity [id number] Surgical wound, non healing Candidiasis Chief Complaint Admit Date Unknown March 07, 2025 7:3 6am Additional Source Comments INFORMATION SOURCE (unrecogn ized section and content) DATE CREATED AUTHOR [facility]02/2018 [facility] DATE CREATED AUTHOR AUTHOR'S ORGANIZ ATION 10/02/2018 [facility] DATE CREATED AUTHOR AUTHOR'S ORGANIZ ATION 09/01/2022 [facility] DATE CREATED AUTHOR AUTHOR'S ORGANIZ ATION 01/31/2023 [facility] DATE CREATED AUTHOR AUTHOR'S ORGANIZ ATION 06/24/2024 [facility] EPIC DATE CREATED AUTHOR AUTHOR'S ORGANIZ ATION 03/13/2025 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 [employer] provides no warranty or guarantee of the accuracy or completeness of information in this document.
[2025-07-08 12:19] LABS: Hematocrit 40.3 % (36.0-48.0); Hemoglobin 13.0 g/dL (12.0-16.0); Mean Corpuscular HGB Conc 32.3 g/dL (29.9-35.2); Mean Corpuscular Hemoglobin 27.4 pg (26.7-34.0); Mean Corpuscular Volume 84.8 fL (81.0-99.0); Platelet Count 202 10^3/uL (150-450); Red Blood Count 4.75 10^6/uL (4.20-5.40); White Blood Count 14.5 10^3/uL (4.0-11.0)
[2025-07-08 12:37] LABS: INR 1.11; Prothrombin Time 11.6 sec (9.0-11.6)
--- OUTSIDE RECORDS SUMMARY | 2025-07-08 12:39 | XMS_ITS | Encounter Summary ---
Author Organization [employer] Address [id number] [place] [address] Care Team Providers Care Collar Trimmer Name Role Phone Provider, Colt THOMAS Primary Care Provider Un available Encounter Details Date Type Department Care Team (Late st Contact Info) Description 07/08/2025 12:39 PM EDT - 07/11/2025 12:45 PM EDT Emergency [facility] [address] [place] [address] Discharge Disposition: Telemedicine Discharge Social History Tobacco Use Types Packs/Day Years [...] on file documented as of this encounter Miscellaneous Notes * Plan of Care - FE Cao - 07/10/2025 8:37 AM EDT Telestroke update note: Patient stable. At baseline per the bedside nurse at [place]. No further recs. FE Cao 07/11/25 0840 * Telehealth Consult - Erlin Bejarano MD - 07/09/2025 11:10 AM EDT Images from the original note were not included. [facility] TELENEUROLOGY CONSULTATION NOTE Telemedicine consultation was requested on this patient. To the best of my ability the purpose of teleneurology was reviewed with patient prior to initiation of visit and verbal consent was obtained. Hospital:[facility] Patient Seen: Floor Neurology Consult Note Consult Date: 07/09/2025 Referring Physician: No att. providers found Reason for Consult I have been asked to see the patient in neurological consultation to render advice and opinion regarding AMS, generalized weakness. History of Present Illness Dahlia Giordano is a RIGHT hand dominant 85 y.o. female with history of HTN, T2DM, chronic painand cervical stenosis with history of previous cervical spine surgery requiring removal of hardwareand repair of pseudomeningocele in 06/[address] Venegas at [facility] who was transferred from her SNF yesterday due to AMS and generalized weakness (?worse on left). In the EC she underwent n on-contrast CTH and CT cervical spine. The noncontrast head CT did not have any acute findings. CT cervical spine had severe degenerative and postoperative changes including severe disc height loss at C4-5, C5-6, and C6-7 with accompanying posterior decompression. Laboratory studies were also obtained which revealed leukocytosis (WBC=14.2), and elevated creatinine (2.01) as well as elevated troponin (194.5). Currently, Dahlia is resting in bed. She is VERY ROBINSON. Assessment is done through assistance of bedside RN, Maureen. Dahlia denies any acute neurologic symptoms. Specifically she denies any headache, visual disturbance, dysarthria, aphasia or dysphagia. She denies any focal extremity weakness. She does admit to generalized weakness. At baseline she is primarily bed ridden or wheelchair dependent. She is able to tell me her name and date of . She has difficulty telling me the current month, year, or where she is located. REVIEW OF SYSTEMS: Review of Systems Exam General appearance: Awake and alert, in no distress. Has soft cervical collar in place. Cardiovascular: on monitor. Chest: Appears unlabored Extremities: Very mild lower extremity edema. Abdomen: No overt distention noted through limits of video visit Skin: No rashes or lesions noted. Neurological Examination: Patient evaluation done through video consult. Patient currently sitting up in bed. Alert oriented to self/ . Unable to tell me current month/ year. Unable to tell me current location. Participates and follows commands during exam. Symmetric face. EOMs intact. Speech is intact for comprehension and expression. Tongue protrudes midline and moves symmetrically. There is no dysarthria or aphasia.Raises all 4 extremities antigravity with general drift in all 4. No focal weakness appreciated.Limited neuro examination given the limitations of video unable to test reflexes or motor strength. Lab Review Urine: neg Imaging 07/08 CTH: no acute intracranial pathology. 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 07/08 CT Cervical spine: Clinical Impression: Multifactorial Encephalopathy Deconditioning Known Advanced Cervical Spine Disease Recommendations: Dahliamiya Romeroalex a RIGHT hand dominant 85 y.o. female with history of HTN, T2DM, chronic pain and cervical stenosis with history of previous cervical spine surgery requiring removal of hardware and repair of pseudomeningocele in 06/[address] [facility]eg[facility] and generalized weakness. Assessment by camera is non-focal. It is suspected she may be close to baseline. At this time advise: Check TSH, B12, Folate Complete infectious work up- note mild leukocytosis Gently hydration, note CRISTINA No focal weakness. Do not feel strongly about further neuro-imaging at this time. Suspect she is close to baseline. Teleneurology will sign off care. Discussed via phone with hospitalist: Dr. Momin. I, Jessica Uribe PA-C, assisted with documentation during the assessment of this patient.Please note case was done in collaboration with: Dr. Erlin Bejarano. I have spent 40 minutes personally reviewing previous history, imaging, and performing a face to face physical assessment on this patient. If you have any further questions please feel free to contact us. Thank you for asking us to be part of this patient's care. [id number] Telestroke Consult from 30-50 minutes This note is dictated with the use of M*Modal.Please note that this dictation was completed with computer voice recognition software. Quite often unanticipated grammatical, syntax, homophones, and other interpretive errors are inadvertently transcribed by the computer software. Please disregard these errors. Please excuse any errors that have escaped final proofreading. Consults Tele-Neurology Telemedicine Consult Note Consent Statement: I discussed risks, benefits, and alternatives of a real-time synchronous audiovisual consultation with the patient (and any accompanying persons) including the risks that the patient's personal health details and medical records will be discussed over real-time, synchronous, interactive video/audio/telecommunication technology, the visitwill not be recorded without the express consent of both the provider and the patient, and that there are some limitations compared to zchq-at-[id number] evaluations. We elected to proceed. THEO Heard 07/09/25 1238 The patient is an 85-year-old female [facility] Patient has multiple comorbidities including history of cervical surgery and baseline weakness and difficulty ambulating. The patient was found to have leukocytosis and increased weakness associated with some confusion.The patient likely has a multifactorial metabolic encephalopathy related to underlying infection. The patient may have exacerbation of baseline neurological deficits in the setting of underlying medical condition. I will continue to follow the patient with medical management of underlying medical conditions. I'll consider further evaluation if the patient does not return to baseline. I, Erlin Bejarano MD, provided the documented services for this patient. I personally reviewed previous medical history, laboratory studies, neuroimaging, and completed a tsfm-ik-rpvu physical assessment on this patient via live audio/ video camera. To the best of my ability, the assessment and plan was discussed with patient and bedside staff. documented in this encounter Plan of Treatment Not on file documented as of this encounter Visit Diagnoses Not on filedocumented in this encounter Care Teams Collar Trimmer Relationship Specialty Start Date End Date Provider, MD Colt PCP - General 01/05/13 documented as of this encounter
[2025-07-08 12:46] LABS: Alanine Aminotransferase 24 U/L (14-59); Albumin Globulin Ratio 0.7; Albumin Level 2.5 g/dL (3.4-5.0); Alkaline Phosphatase 94 U/L (46-116); Anion Gap 14.3; Aspartate Amino Transferase 36 U/L (15-37); Calcium 8.2 mg/dL (8.5-10.1); Carbon Dioxide 29.6 mmol/L (21.0-32.0); Chloride 97 mmol/L (98-107); Estimated GFR (African America 26 (>=60 mL/min/1.73m^2); Estimated GFR (Non-African Ame 22 (>=60 mL/min/1.73m^2); Globulin 3.5 g/dL; Glucose 251 mg/dL (74-106); Sodium 138 mmol/L (136-145); Total Protein 6.0 g/dL (6.4-8.2)
[2025-07-08 12:46] LABS: Glucose Urine UA NEGATIVE (NEGATIVE)
[2025-07-08 12:49] LABS: Blood Urea Nitrogen 82.0 mg/dL (7.0-18.0); Potassium 2.9 mmol/L (3.5-5.1)
[2025-07-08 13:02] LABS: Band Neutrophils Absolute 0.3 10^3/uL (0.0-0.3); Lymphocytes Absolute Manual 1.74 10^3/uL (1.20-3.80); Lymphocytes Percent Manual 12.0 % (20.5-60.0); Segmented Neut Absolute Manual 11.60 10^3/uL (1.4-6.5); Segmented Neutrophils % Manual 80.0 (43.0-75.0)
[2025-07-08 13:03] LABS: Basophils Abs Manual 0.14 10^3/uL (0.00-0.10); Basophils Percent Manual 1.0 % (0.2-2.0); Eosinophils Absolute Manual 0.00 10^3/uL (0.00-0.70); Eosinophils Percent Manual 0.0 % (0.9-7.0); Monocytes Absolute Manual 0.72 10^3/uL (0.30-0.80); Monocytes Percent Manual 5.0 % (1.7-12.0)
[2025-07-08 13:24] LABS: Magnesium 2.0 mg/dL (1.8-2.4)
--- NOTE | 2025-07-08 13:34 | ED.AMS1 ---
HPI - Altered Mental Status General Chief Complaint: Altered Mental Status Stated Complaint: ALTERED MENTAL STATUS Time Seen by Provider: 07/08/25 11:19 Source: patient Mode of arrival: ambulance History of Present Illness HPI narrative: The patient is a 85-year-old female with multiple comorbidities including the fact that she is coming from a half-way facility with a history of cervical stenosis status postsurgery, the patient apparently was noted at 9:15 AM which is 2 hours before arrival to us at 11:15 AM that she has some decrease in her attention in addition to some weakness in the left side that was noted by the staff, the patient herself mentioned that she feels weak all over and denies any left-sided weakness said that she always had this weakness in the left side more than the right, the patient mentioned that she is just weak all over and tired She denies any headache mentioned that she had a baseline blurry vision in her right eye and double vision when she open both eyes together and also mentioned this is not new On multiple occasion the patient confirmed that the only concern is that she is just generally weak all over No abdominal pain , no fever and pt didnt eat today Related Data Home Medications ?Medication ?Instructions ?Recorded ?Confirmed allopurinol 100 mg tablet 100 mg PO DAILY 03/05/25 07/08/25 donepezil 5 mg tablet 5 mg PO QPM 03/05/25 07/08/25 levothyroxine 50 mcg tablet 50 mcg PO QAM 03/05/25 07/08/25 vitamin B12 1 tab PO DAILY 03/05/25 07/08/25 atorvastatin 10 mg tablet (Lipitor) 10 mg PO DAILY 07/08/25 07/08/25 diclofenac sodium 1 % topical gel 2 g topical BID 07/08/25 07/08/25 magnesium hydroxide 400 mg/5 mL 30 ml PO BID PRN constipation 07/08/25 07/08/25 oral suspension (Milk of Magnesia) pantoprazole 40 mg tablet,delayed 40 mg PO DAILY 07/08/25 07/08/25 release polyethylene glycol 3350 17 gram 17 g PO BID 07/08/25 07/08/25 oral powder packet Previous Rx's ?Medication ?Instructions ?Recorded Melatonin 6 mg PO HS ##0 06/29/25 acetaminophen 325 mg tablet 650 mg (2 x 325 mg) PO Q6H PRN 06/29/25 (Tylenol) Pain/fever #0 tabs amlodipine 5 mg tablet 5 mg PO QD #0 tabs 06/29/25 aspirin 81 mg tablet,delayed 81 mg PO QD #0 tabs 06/29/25 release buprenorphine 20 mcg/hour weekly 1 patch transdermal Q7D #1 ea 06/29/25 transdermal patch docusate sodium 100 mg capsule 100 mg PO BID #0 caps 06/29/25 escitalopram oxalate 10 mg tablet 20 mg (2 x 10 mg) PO DAILY #0 tabs 06/29/25 metoprolol succinate 25 mg 25 mg PO DAILY #30 tabs 06/29/25 tablet,extended release 24 hr (Toprol XL) pregabalin 50 mg capsule 50 mg PO BID #20 caps 06/29/25 sennosides 8.6 mg-docusate sodium 2 tab PO QD #0 tabs 06/29/25 50 mg tablet (Senna Plus) torsemide 20 mg tablet 20 mg PO QD #0 tabs 06/29/25 Allergies Allergy/AdvReac Type Severity Reaction Status Date / Time codeine Allergy dizzy Verified 03/05/25 17:21 latex Allergy Rash Verified 03/05/25 17:21 meperidine (From Demerol) Allergy hallucinati Verified 03/05/25 17:21 on Sulfa (Sulfonamide Allergy Rash Verified 03/05/25 17:21 Antibiotics) Review of Systems ROS Status of ROS 10 or more systems reviewed and unremarkable except as noted in history and below [facility] Medical History Fall ?W19.XXXA - Unspecified fall, initial encounter (ICD-10) Hyperkalemia ?E87.5 - Hyperkalemia (ICD-10) Peripheral vascular disease ?I73.9 - Peripheral vascular disease, unspecified (ICD-10) Nerve damage ?T14.8XXA - Other injury of unspecified body region, initial encounter (ICD-10) HTN (hypertension) ?I10 - Essential (primary) hypertension (ICD-10) Diabetes ?E11.9 - Type 2 diabetes mellitus without complications (ICD-10) Surgical History History of cholecystectomy ?Z90.49 - Acquired absence of other specified parts of digestive tract (ICD-10) H/O knee surgery ?Z98.890 - Other specified postprocedural states (ICD-10) History of hysterectomy ?Z90.710 - Acquired absence of both cervix and uterus (ICD-10) Previous back surgery ?Z98.890 - Other specified postprocedural states (ICD-10) H/O neck surgery ?Z98.890 - Other specified postprocedural states (ICD-10) Family History Mother Family history of cancer Other Family history of CHF (congestive heart failure) Social History (Updated 06/25/25 @ 20:28 by Carline Spivey RN) Within the past year, how often did you have a drink containing alcohol: never Within the past year, how often did you have six or more drinks on one occasion: never Score interpretation: A score less than 3 is consistent with normal alcohol consumption. Smoking status: Former smoker Second hand tobacco smoke exposure: Yes Non-prescribed substance use: denies use Known occupational exposures/hazards: No Highest level of school completed/degree received: high school graduate Do you want help with school or training: No Are you now , , , , never or living with a partner: In a typical week, how many times do you talk on the telephone with family, friends, or neighbors: twice per week How often do you get together with friends or relatives: twice per week Little interest or pleasure in doing things: not at all Feeling down, depressed, or hopeless: not at all Feel stressed/tense/nervous/anxious/difficulty sleeping: not at all Do you think of yourself as: straight/heterosexual Gender Identity: female Exam Narrative Exam Narrative: Nurses notes and vital signs reviewed and patient is not hypoxic. General: Well-appearing and in no apparent distress. Skin: Warm, dry, no pallor noted. No rash. Head: Normocephalic, atraumatic. Neck: Soft neck collar Eye: Pupils are equal, round and EOMI. No scleral icterus. Ears, Nose, Mouth, and Throat: TM are clear, no nasal mucosal hypertrophy. Oral mucosa is moist, no posterior oropharynx erythema, uvula is mid-line Cardiovascular: Regular Rate and Rhythm without murmur, gallop or rub. Respiratory: No accessory muscle use or respiratory distress. Lungs are clear to auscultation, no wheezing, rales or rhonchi Chest Wall: no tenderness Back: No midline thoracic or lumbar vertebral tenderness. No CVA tenderness Musculoskeletal: normal ROM, no calf or popliteal tenderness, no lower extremity edema/swelling GI: Abdomen is soft, non-distended. Normal bowel sounds. No masses appreciated. No tenderness to palpation. No rebound, guarding, or rigidity noted. The patient have a wound dressing on the anterior abdomen that is changed showing a small puncture like wound. No signs of infection it is just below the umbilicus, Neurological: A&O x2 No cranial nerve dysfunction observed. The patient have a left-sided upper and lower extremity weakness that mostly equal in both lower extremities but in the left upper extremity the patient have some drifting of the arm when she raises it up, mild handgrip weakness in the left compared to the right Psychiatric: Cooperative and interactive. Normal mood and affect. Constitutional Vital Signs, click to edit/add: Last Vital Signs Temp 98.2 F 07/08/25 11:12 Pulse 82 07/08/25 14:20 Resp 19 07/08/25 14:20 BP 131/63 07/08/25 14:15 Pulse Ox 94 L 07/08/25 14:20 O2 Del Method Room Air 07/08/25 11:12 Course Vital Signs Vital signs: Vital Signs Temperature 98.2 F 07/08/25 11:12 Pulse Rate 87 07/08/25 11:12 Respiratory Rate 16 07/08/25 11:12 Blood Pressure 117/74 07/08/25 11:12 Pulse Oximetry 97 07/08/25 11:12 Oxygen Delivery Method Room Air 07/08/25 11:12 Temperature 98.2 F 07/08/25 11:12 Pulse Rate 82 07/08/25 14:20 Respiratory Rate 19 07/08/25 14:20 Blood Pressure 131/63 07/08/25 14:15 Pulse Oximetry 94 L 07/08/25 14:20 Oxygen Delivery Method Room Air 07/08/25 11:12 MDM - Altered Mental Status MDM Narrative Medical decision making narrative: The patient EKG in the ER showing sinus rhythm with a heart rate of 85 there is right bundle chalo block the patient had some T wave inversion in lead III and aVF and also V2 and V3 3 compared to the old EKG from February of this year The patient CT head showed no acute pathology The patient case discussed with the teleneurologist Dr Duffy and he agreed that the patient presentation right now does not seem to be due to a stroke but mostly is either secondary to her cervical neck or to her metabolic changes The patient did complain only of generalized weakness and not left-sided weakness CBC shows white blood cell of 14 the chemistry showed some elevation of the BUN at 80 and creatinine 2.1 compared to her baseline of 1.8 The patient was started IV fluids 500 cc in the ER The patient also had a troponin of of 190 in the ER and it was repeated after around 2 hours and it was 199 The patient case discussed with the link and link knitting machine operator on-call Dr. Bazan and the she mentioned that right now the patient would need further testing with an echo as inpatient as well as trending of the troponin in case of any chest pain or trending up of the troponin the patient will need further evaluation and possible cardiac cath But right now the patient does not need any transfer she just need to be admitted for trending of the troponin as well as an echo in addition to hydration and monitoring her kidney function I did review the patient previous workup including MRI done previously in addition to the fact that she had a history of cervical canal stenosis at that she refused to be transferred for surgery for the last time she was admitted here in this hospital, the patient again I explained to her that her weakness mostly in the left side could be secondary to that and it could progress to cause her paralysis but the patient understand and she mentioned that she does not have any increase in the left side weakness and she is just here because she is tired and weak all over, again I explained to the patient that in case of any progression of her spinal canal stenosis that would cause her harm and right now there is no neurosurgery in our facility to do any kind of procedure and alleviate the pressure from her disc. But the patient understand and she does not want any surgery for her neck and she does not want to be transferred to another facility The patient understand the risk of paralysis from the progression of cervical disc compression that was brought to her clearly and this wording multiple times and pt just doest want to be transferred and she agreed to be admitted to our facility here in [place] where we do not have any neurosurgery but she would need further cardiac evaluation as well is hydration in our facility The patient has preserved cognition to understand what I explained to her and I did explain to her that in details and in simple words. The patient clearly knows that the cervical disc disease will continue to deteriorate causing further damage but she still does not want any further transfer to another facility or any surgery done. The patient case discussed with Dr. Momin and he agreed on admitting the patient for further evaluation and management Lab Data Labs: Lab Results 07/08/25 07/08/25 07/08/25 Range/Units 11:13 11:22 12:12 WBC Not Reportable 14.5 H RBC Not Reportable 4.75 Hgb Not Reportable 13.0 Hct Not Reportable 40.3 MCV Not Reportable 84.8 MCH Not Reportable 27.4 MCHC Not Reportable 32.3 RDW Not Reportable 15.6 H Plt Count Not Reportable 202 MPV Not Reportable 12.1 Seg Neuts % (Manual) 80.0 H (43.0-75.0) Band Neutrophils % 2.0 (0-5) % Lymphocytes % (Manual) 12.0 L (20.5-60.0) % Monocytes % (Manual) 5.0 (1.7-12.0) % Eosinophils % (Manual) 0.0 L (0.9-7.0) % Basophils % (Manual) 1.0 (0.2-2.0) % Neutrophils # (Manual) 11.60 H (1.4-6.5) 10^3/uL Band Neutrophils # 0.3 (0.0-0.3) 10^3/uL Lymphocytes # (Manual) 1.74 (1.20-3.80) 10^3/uL Monocytes # (Manual) 0.72 (0.30-0.80) 10^3/uL Eosinophils # (Manual) 0.00 (0.00-0.70) 10^3/uL Basophils # (Manual) 0.14 H (0.00-0.10) 10^3/uL PT 11.6 (9.0-11.6) sec INR 1.11 Sodium 138 (136-145) mmol/L Potassium 2.9 L* (3.5-5.1) mmol/L Chloride 97 L (98-107) mmol/L Carbon Dioxide 29.6 (21.0-32.0) mmol/L Anion Gap 14.3 BUN 82.0 H* (7.0-18.0) mg/dL Creatinine 2.16 H (0.55-1.02) mg/dL Est GFR ( Amer) 26 L (>=60 mL/min/1.73m^2) Est GFR (Non-Af Amer) 22 L (>=60 mL/min/1.73m^2) BUN/Creatinine Ratio 38.0 Glucose 251 H (74-106) mg/dL Lactate 1.7 (0.4-2.0) mmol/L Calcium 8.2 L (8.5-10.1) mg/dL Magnesium (1.8-2.4) mg/dL Total Bilirubin 0.4 (0.2-1.0) mg/dL AST 36 (15-37) U/L ALT 24 (14-59) U/L Alkaline Phosphatase 94 (46-116) U/L Troponin I High Sens 192.2 H* (4.0-51.3) pg/mL Total Protein 6.0 L (6.4-8.2) g/dL Albumin 2.5 L (3.4-5.0) g/dL Globulin 3.5 g/dL Albumin/Globulin Ratio 0.7 Urine Color (YELLOW) Urine Clarity (CLEAR) Urine pH (5.0-9.0) Ur Specific [place] (1.005-1.025) Urine Protein (NEG/TRACE) mg/dL Urine Glucose (UA) (NEGATIVE) mg/dL Urine Ketones (NEGATIVE) mg/dL Urine Occult Blood (NEGATIVE) Urine Nitrite (NEGATIVE) Urine Bilirubin (NEGATIVE) Urine Urobilinogen (0.2-1.0) EU/dL Ur Leukocyte Esterase (NEGATIVE) Stool Occult Blood POC Glucose 281 H (74-106) mg/dL 07/08/25 07/08/25 07/08/25 Range/Units 12:23 12:25 12:58 WBC RBC Hgb Hct MCV MCH MCHC RDW Plt Count MPV Seg Neuts % (Manual) (43.0-75.0) Band Neutrophils % (0-5) % Lymphocytes % (Manual) (20.5-60.0) % Monocytes % (Manual) (1.7-12.0) % Eosinophils % (Manual) (0.9-7.0) % Basophils % (Manual) (0.2-2.0) % Neutrophils # (Manual) (1.4-6.5) 10^3/uL Band Neutrophils # (0.0-0.3) 10^3/uL Lymphocytes # (Manual) (1.20-3.80) 10^3/uL Monocytes # (Manual) (0.30-0.80) 10^3/uL Eosinophils # (Manual) (0.00-0.70) 10^3/uL Basophils # (Manual) (0.00-0.10) 10^3/uL PT (9.0-11.6) sec INR Sodium (136-145) mmol/L Potassium (3.5-5.1) mmol/L Chloride (98-107) mmol/L Carbon Dioxide (21.0-32.0) mmol/L Anion Gap BUN (7.0-18.0) mg/dL Creatinine (0.55-1.02) mg/dL Est GFR ( Amer) (>=60 mL/min/1.73m^2) Est GFR (Non-Af Amer) (>=60 mL/min/1.73m^2) BUN/Creatinine Ratio Glucose (74-106) mg/dL Lactate (0.4-2.0) mmol/L Calcium (8.5-10.1) mg/dL Magnesium 2.0 (1.8-2.4) mg/dL Total Bilirubin (0.2-1.0) mg/dL AST (15-37) U/L ALT (14-59) U/L Alkaline Phosphatase (46-116) U/L Troponin I High Sens (4.0-51.3) pg/mL Total Protein (6.4-8.2) g/dL Albumin (3.4-5.0) g/dL Globulin g/dL Albumin/Globulin Ratio Urine Color Lt. yellow (YELLOW) Urine Clarity Clear (CLEAR) Urine pH 6.0 (5.0-9.0) Ur Specific [place] 1.015 (1.005-1.025) Urine Protein Negative (NEG/TRACE) mg/dL Urine Glucose (UA) Negative (NEGATIVE) mg/dL Urine Ketones Negative (NEGATIVE) mg/dL Urine Occult Blood Negative (NEGATIVE) Urine Nitrite Negative (NEGATIVE) Urine Bilirubin Negative (NEGATIVE) Urine Urobilinogen 0.2 (0.2-1.0) EU/dL Ur Leukocyte Esterase Negative (NEGATIVE) Stool Occult Blood Negative POC Glucose (74-106) mg/dL 07/08/25 Range/Units 13:40 WBC RBC Hgb Hct MCV MCH MCHC RDW Plt Count MPV Seg Neuts % (Manual) (43.0-75.0) Band Neutrophils % (0-5) % Lymphocytes % (Manual) (20.5-60.0) % Monocytes % (Manual) (1.7-12.0) % Eosinophils % (Manual) (0.9-7.0) % Basophils % (Manual) (0.2-2.0) % Neutrophils # (Manual) (1.4-6.5) 10^3/uL Band Neutrophils # (0.0-0.3) 10^3/uL Lymphocytes # (Manual) (1.20-3.80) 10^3/uL Monocytes # (Manual) (0.30-0.80) 10^3/uL Eosinophils # (Manual) (0.00-0.70) 10^3/uL Basophils # (Manual) (0.00-0.10) 10^3/uL PT (9.0-11.6) sec INR Sodium (136-145) mmol/L Potassium (3.5-5.1) mmol/L Chloride (98-107) mmol/L Carbon Dioxide (21.0-32.0) mmol/L Anion Gap BUN (7.0-18.0) mg/dL Creatinine (0.55-1.02) mg/dL Est GFR ( Amer) (>=60 mL/min/1.73m^2) Est GFR (Non-Af Amer) (>=60 mL/min/1.73m^2) BUN/Creatinine Ratio Glucose (74-106) mg/dL Lactate (0.4-2.0) mmol/L Calcium (8.5-10.1) mg/dL Magnesium (1.8-2.4) mg/dL Total Bilirubin (0.2-1.0) mg/dL AST (15-37) U/L ALT (14-59) U/L Alkaline Phosphatase (46-116) U/L Troponin I High Sens 199.9 H* (4.0-51.3) pg/mL Total Protein (6.4-8.2) g/dL Albumin (3.4-5.0) g/dL Globulin g/dL Albumin/Globulin Ratio Urine Color (YELLOW) Urine Clarity (CLEAR) Urine pH (5.0-9.0) Ur Specific [place] (1.005-1.025) Urine Protein (NEG/TRACE) mg/dL Urine Glucose (UA) (NEGATIVE) mg/dL Urine Ketones (NEGATIVE) mg/dL Urine Occult Blood (NEGATIVE) Urine Nitrite (NEGATIVE) Urine Bilirubin (NEGATIVE) Urine Urobilinogen (0.2-1.0) EU/dL Ur Leukocyte Esterase (NEGATIVE) Stool Occult Blood POC Glucose (74-106) mg/dL Discharge Plan Discharge Chief Complaint: Altered Mental Status Clinical Impression: Generalized weakness, CRISTINA (acute kidney injury), Uremia, Hypokalemia, Elevated troponin Patient Disposition: Admitted As Inpatient Time of Disposition Decision: 15:17
[2025-07-08 13:44] LABS: Lactate/Lactic Acid 1.7 mmol/L (0.4-2.0)
--- NOTE | 2025-07-08 13:52 | XR_ITS ---
The [address] [address] Patient Name: VIDHYA REGALADO MRN: [id number] date: 1940 Sex: F Assigned Patient Location: ER Current Patient Location: ER Accession/Order Number: [id number] Exam Date: 07/08/2025 14:00 Report Date: 07/08/2025 14:35 At the request of: MACARIO BASS MD Procedure: XR chest 1V XR chest 1V 07/08/2025 2:13 PM SIGNS AND SYMPTOMS: Blurred vision and weakness PROTOCOL: Frontal radiograph of the chest COMPARISON: 06/25/2025 FINDINGS: The trachea is midline. Atherosclerotic changes are noted in the thoracic aorta. The heart and mediastinal structures are within normal limits. The lung parenchyma is clear. The bony thorax is intact. There is fusion hardware in the lower thoracic and upper lumbar spine. Surgical clips are noted in the left upper quadrant. XR/XR chest 1V IMPRESSION: No acute cardiopulmonary pathology. Impression dictated by: Cheng Bartlett M.D. 07/08/2025 2:35 PM Dictation Location: [place] [address] Electronically authenticated by: [id number] Y Date: 07/08/2025 14:35
[2025-07-08] MEDS: POTASSIUM CHLORIDE IN WATER 10 MEQ/100 ML PREMIX 100 MEQ IV (13:54)
--- OUTSIDE RECORDS SUMMARY | 2025-07-08 13:55 | XMS_ITS | Encounter Summary ---
Author Organization [facility] Address [id number] [address] [place] [address] Care Team Providers Care Sleeve Sewer Name Role Phone Provider, Colt THOMAS Primary Care Provider Un available Encounter Details Date Type Department Care Team (Late st Contact Info) Description 07/08/2025 1:55 PM EDT Ancillary Procedure [facility] [address] [place] [address] Pain Social History Tobacco Use [...] Procedure Name Priority Date/Time Associated Diagnosis Comments XR CHEST 1 VW Routine 07/08/2025 1:55 PM EDT Pain documented in this encounter Results * X-ray chest 1 view (07/08/2025 1:55 PM EDT) us Scanning Provider External IMG DIAGNOSTIC IMAGIN G ORDERABLES Final Result documented in this encounter Visit Diagnoses Diagnosis Pain Generalized pain documented in this encounter Care Teams Sleeve Sewer Relationship Specialty Start Date End Date ProviderColt MD PCP - General 01/05/13 documented as of this encounter
--- OUTSIDE RECORDS SUMMARY | 2025-07-08 16:04 | XMS_ITS | CCD ---
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 Name Role Phone ABEBE, JIANLIN Unavailable Unavailable ABEBE, JIANLIN Unavailable Unavailable DURBIN, TAN Unavailable Unavailable DURBIN, TAN Unavailable Unavailable ABEBE, JIANLIN Unavailable Unavailable ABEBE, JIANLIN Unavailable Unavailable PAVLOCK, MAX ANAND Unavailable Unavailable PAVLOCK, MAX ANAND Unavailable Unavailable ABEBE, JIANLIN Unavailable Unavailable ABEBE, JIANLIN Unavailable Unavailable PAVLOCK, MAX ANAND Unavailable Unavailable PAVLOCK, MAX ANAND Unavailable Unavailable HI Unavailable Unavailable ABEBE, JIANLIN Unavailable Unavailable KAEL [...] Unavailable Kael Adkins MD Primary Care Provider [phone] ANNA KUMAR Attending Unavailable MD Kael Adkins Primary Care Provider [phone] DG Scott Attending Provider Kael Adkins MD Attending Provider Kael Adkins Admitting Unavailable Kael Adkins Attending Unavailable Kael Adkins Primary Care Unavailable Wendy Scott Admitting Unavailable Wendy Scott Attending Unavailable STACIA KELLER Attending Unavailable PROVIDER, CONVERSION Primary Care Unavailable Allergies Allergy Classification Reported Allergen(s) Allergy Type Date of Onset Reaction(s) Facility (5 sources) codeine Drug Allergy 12-28-19 13 AOF, Unknown Reaction [facility] Repository (1 source) Dust; Translations: [Dust] Propensity to adverse reactions (disorder) 12-28-19 13 [facility] Rep[facility] (3 sources) glycerin Drug Allergy 12-28-19 13 Unknown Reaction [facility] (1 source) Grass pollen; Translations: [grass pollen] Propensity to adverse reactions (disorder) 12-28-19 13 [facility] Rep[facility] (5 sources) Latex Drug allergy (disorder) 12-28-19 13 Unknown Reaction [facility] Repository (2 sources) meperidine Drug Allergy 12-28-19 13 AOF [facility] Repository (4 sources) mold extract; Translations: [Mold] Drug Allergy 12-28-19 13 Sneezing [facility] Repository (3 sources) nitrofurantoin Drug Allergy 12-23-19 16 [facility] (1 source) sulfamethoxazole / trimethoprim Drug Allergy 12-28-19 13 [facility] Rep[facility] (2 sources) Desonide Drug Allergy 06-13-20 13 [facility] Repository (2 sources) Glycerin Drug Allergy 06-13-20 13 [facility] Rep[facility] (4 sources) Lidocaine Drug Allergy 06-13-20 13 Unknown Reaction [facility] Rep[facility] (2 sources) Meperidine Drug Allergy 12-23-19 16 [facility] Rep[facility] (2 sources) Sulfonamides (Antibiotic) Drug allergy (disorder) 12-23-19 16 [facility] Rep[facility] (2 sources) Grass Pollen-[place], Standard Drug allergy (disorder) 06-13-20 13 [facility] Repository (2 sources) Misc-ENV; Translations: [Misc-ENV] Propensity to adverse reactions (disorder) 06-13-20 13 [facility] Repository (3 sources) Meperidine; Translations: [meperidine] Drug Allergy 04-08-20 Confusion [facility] (3 sources) Sulfonamides (Antibiotic); Translations: [Sulfa (Sulfonamide Antibiotics)] Allergy to substance 04-08-20 [facility] (3 sources) cat dander; Translations: [cat dander] Allergy to substance 04-08-20 Sneezing [facility] (3 sources) NSAIDS (Non-Steroidal Anti-Inflamma; Translations: [NSAIDS (Non-Steroidal Anti-Inflamma] Allergy to substance 04-08-20 [facility] (1 source) Codeine Drug Allergy 04-08-20 [facility] Repository (1 source) Glycerin Drug Allergy 04-08-20 [facility] Repository (1 source) Latex Drug allergy (disorder) 04-08-20 [facility] Repository (1 source) Lidocaine Drug Allergy 04-08-20 [facility] Repository Medications Current Medications Medication Drug [...] 650 mg Supposi tory Discontinued 650 MG HI Q6H as needed for Fever May 10, [...] May 10, 2019 11:35am polyethylene glycol 3350 01294 mg powder for oral solution (2 sources) [...] 11:25am docusate sodium 50 mg / sennosides, senior care 8.6 mg oral tablet (2 sources) Start: [...] disease (1 source) Atherosclerotic heart disease of [place] coronary artery without angina pectoris; Translations: [ATHSCL HEART DISEASE OF [place] CORONARY ARTERY W/O ANG PCTRS] Onset: 8 [...] 05-24-2018 Episodic Other aftercare (1 source) 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 Delays in transport may affect results. Interpret with caution. A clinical correlation is recommended. Performed By: #### T HYR #### [facility] ([address] [address] VIR BLOOD/HGB Trace Abnormal Negative [facility] Comment on above: Order Comment: Urine received without preservative. Delays in transport may affect results. Interpret with caution. A clinical correlation is recommended. Performed By: #### T HYR #### [facility] ([address] [address] VIR Color (U) Yellow Normal Yellow [facility] Comment on above: Order Comment: Urine received without preservative. Delays in transport may affect results. Interpret with caution. A clinical correlation is recommended. Performed By: #### T HYR #### [facility] ([address] [address] VIR Glucose Ql (U) Negative Normal Negative, 250 mg/dL [facility] Comment on above: Order Comment: Urine received without preservative. Delays in transport may affect results. Interpret with caution. A clinical correlation is recommended. Performed By: #### T HYR #### [facility] ([address] [address] VIR Ketones Ql (U) Negative Normal Negative [facility] Comment on above: Order Comment: Urine received without preservative. Delays in transport may affect results. Interpret with caution. A clinical correlation is recommended. Performed By: #### T HYR #### [facility] ([address] [address] VIR Leukocyte esterase Test strip Ql (U) Moderate Abnormal Negative [facility] Comment on above: Order Comment: Urine received without preservative. Delays in transport may affect results. Interpret with caution. A clinical correlation is recommended. Performed By: #### T HYR #### [facility] ([address] [address] VIR Nitrite Ql (U) Positive Abnormal Negative [facility] Comment on above: Order Comment: Urine received without preservative. Delays in transport may affect results. Interpret with caution. A clinical correlation is recommended. Performed By: #### T HYR #### [facility] ([address] [address] VIR PH,URINE 6.0 Normal 5.0-8.5 [facility] Comment on above: Order Comment: Urine received without preservative. Delays in transport may affect results. Interpret with caution. A clinical correlation is recommended. Performed By: #### T HYR #### [facility] ([address] [address] VIR Protein Ql (U) Trace Abnormal Negative [facility] Comment on above: Order Comment: Urine received without preservative. Delays in transport may affect results. Interpret with caution. A clinical correlation is recommended. Performed By: #### T HYR #### [facility] ([address] [address] VIR R.B.CELLS 3 Normal 0-5 [facility] Comment on above: Order Comment: Urine received without preservative. Delays in transport may affect results. Interpret with caution. A clinical correlation is recommended. Performed By: #### T HYR #### [facility] ([address] [address] VIR Specific gravity (U) [Rel density] 1.025 Normal 1.003-1.035 [facility] Comment on above: Order Comment: Urine received without preservative. Delays in transport may affect results. Interpret with caution. A clinical correlation is recommended. Performed By: #### T HYR #### [facility] ([address] [address] VIR SQUAMOUS EPITHELIUM 2 Normal 0-5 [facility] Comment on above: Order Comment: Urine received without preservative. Delays in transport may affect results. Interpret with caution. A clinical correlation is recommended. Performed By: #### T HYR #### [facility] ([address] [address] VIR TURBIDITY Cloudy Abnormal Clear [facility] Comment on above: Order Comment: Urine received without preservative. Delays in transport may affect results. Interpret with caution. A clinical correlation is recommended. Performed By: #### T HYR #### [facility] ([address] [address] VIR UROBILINOGEN 0.2 eu/dL Normal 0.2 eu/dL, 1.0 eu/dL [facility] Comment on above: Order Comment: Urine received without preservative. Delays in transport may affect results. Interpret with caution. A clinical correlation is recommended. Performed By: #### T HYR #### [facility] ([address] [address] VIR W.B.CELLS >^100 High 0-5 [facility] Comment on above: Order Comment: Urine received without preservative. Delays in transport may affect results. Interpret with caution. A clinical correlation is recommended. Performed By: #### T HYR #### [facility] ([address] [address] VIR URINE CULTUREon 06-14-2025 Bacteria identified Cx [...] Trimethoprim + Sulfamethoxazole S <=^1.0 F Susceptible [facility] Comment on above: Order Comment: Along with 10,000 to 50,000 CFU/mL Normal Urogenital Dania.Urine received without preservative - delays in transport may affect results. Interpret with caution and clinical correlation is recommended. Performed By: #### T HYR #### [facility] ([address] [place] [address] VIR URINALYSISon 05-23-2025 Bilirubin Ql (U) Negative Normal Negative [facility] Comment on above: Performed By: #### T HYR #### [facility] ([address] [place] [address] VIR BLOOD/HGB Negative Normal Negative [facility] Comment on above: Performed By: #### T HYR #### [facility] ([address] [place] [address] VIR Color (U) Yellow Normal Yellow, Colorless [facility] Comment on above: Performed By: #### T HYR #### [facility] ([address] [place] [address] VIR Glucose Ql (U) Negative Normal Negative, 250 mg/dL [facility] Comment on above: Performed By: #### T HYR #### [facility] ([address] [place] [address] VIR Ketones Ql (U) Negative Normal Negative [facility] Comment on above: Performed By: #### T HYR #### [facility] ([address] [place] [address] VIR Leukocyte esterase Test strip Ql (U) Moderate Abnormal Negative [facility] Comment on above: Performed By: #### T HYR #### [facility] (PENDING SALE TO [facility]) [address] [place] [address] VIR Nitrite Ql (U) Positive Abnormal Negative [facility] Comment on above: Performed By: #### T HYR #### [facility] (PEND[facility]) [address] [place] [address] [place] [address] VIR PH,URINE 6.0 Normal 5.0-8.5 [facility] Comment on above: Performed By: #### T HYR #### [facility] ([address] [place] [address] VIR Protein Ql (U) Trace Abnormal Negative [facility] Comment on above: Performed By: #### T HYR #### [facility] ([address] [place] [address] VIR R.B.CELLS 3 Normal 0-5 [facility] Comment on above: Performed By: #### T HYR #### [facility] ([address] [place] [address] VIR Specific gravity (U) [Rel density] 1.020 Normal 1.003-1.035 [facility] Comment on above: Performed By: #### T HYR #### [facility] ([address] [place] [address] VIR SQUAMOUS EPITHELIUM 1 Normal 0-5 [facility] Comment on above: Performed By: #### T HYR #### [facility] ([place] [address] [facility] [place] [address] VIR TURBIDITY Hazy Abnormal Clear [facility] Comment on above: Performed By: #### T HYR #### [facility] ([address] [place] [address] VIR UROBILINOGEN 0.2 eu/dL Normal 0.2 eu/dL, 1.0 eu/dL [facility] Comment on above: Performed By: #### T HYR #### [facility] (PENDING SALE TO [facility]) [address] [place] [address] VIR W.B.CELLS 90 High 0-5 [facility] Comment on above: Performed By: #### T HYR #### [facility] (PEND[facility]) [address] [place] [address] VIR URINE CULTUREon 05-23-2025 Bacteria identified Cx [...] Trimethoprim + Sulfamethoxazole S <=^1.0 F Susceptible [facility] Comment on above: Performed By: #### T HYR #### [facility] ([address] [address] VIR URINALYSISon 05-01-2025 Bilirubin Ql (U) Negative Normal Negative [facility] Comment on above: Order Comment: Urine received without preservative. Delays in transport may affect results. Interpret with caution. A clinical correlation is recommended. Performed By: #### U A #### [facility] (PEND[facility]) [address] [place] [address] VIR BLOOD/HGB Negative Normal Negative [facility] Comment on above: Order Comment: Urine received without preservative. Delays in transport may affect results. Interpret with caution. A clinical correlation is recommended. Performed By: #### U A #### [facility] ([address] [place] [address] VIR Color (U) Yellow Normal Yellow, Colorless [facility] Comment on above: Order Comment: Urine received without preservative. Delays in transport may affect results. Interpret with caution. A clinical correlation is recommended. Performed By: #### U A #### [facility] ([address] [place] [address] VIR Glucose Ql (U) Negative Normal Negative, 250 mg/dL [facility] Comment on above: Order Comment: Urine received without preservative. Delays in transport may affect results. Interpret with caution. A clinical correlation is recommended. Performed By: #### U A #### [facility] ([address] [place] [address] VIR Ketones Ql (U) Negative Normal Negative [facility] Comment on above: Order Comment: Urine received without preservative. Delays in transport may affect results. Interpret with caution. A clinical correlation is recommended. Performed By: #### U A #### [address] [place] [address] VIR Leukocyte esterase Test strip Ql (U) Trace Abnormal Negative [facility] Comment on above: Order Comment: Urine received without preservative. Delays in transport may affect results. Interpret with caution. A clinical correlation is recommended. Performed By: #### U A #### [facility] ([address] [place] [address] VIR Nitrite Ql (U) Negative Normal Negative [facility] Comment on above: Order Comment: Urine received without preservative. Delays in transport may affect results. Interpret with caution. A clinical correlation is recommended. Performed By: #### U A #### [address] [place] [address] VIR PH,URINE 6.0 Normal 5.0-8.5 [facility] Comment on above: Order Comment: Urine received without preservative. Delays in transport may affect results. Interpret with caution. A clinical correlation is recommended. Performed By: #### U A #### [facility] ([address] [address] VIR Protein Ql (U) Negative Normal Negative [facility] Comment on above: Order Comment: Urine received without preservative. Delays in transport may affect results. Interpret with caution. A clinical correlation is recommended. Performed By: #### U A #### [facility] ([address] [address] VIR Specific gravity (U) [Rel density] <=^1.005 Normal 1.003-1.035 [facility] Comment on above: Order Comment: Urine received without preservative. Delays in transport may affect results. Interpret with caution. A clinical correlation is recommended. Performed By: #### U A #### [facility] ([address] [address] VIR SQUAMOUS EPITHELIUM 1 Normal 0-5 [facility] Comment on above: Order Comment: Urine received without preservative. Delays in transport may affect results. Interpret with caution. A clinical correlation is recommended. Performed By: #### U A #### [facility] ([address] [address] VIR TURBIDITY Clear Normal Clear [facility] Comment on above: Order Comment: Urine received without preservative. Delays in transport may affect results. Interpret with caution. A clinical correlation is recommended. Performed By: #### U A #### [facility] ([address] [address] VIR UROBILINOGEN 0.2 eu/dL Normal 0.2 eu/dL, 1.0 eu/dL [facility] Comment on above: Order Comment: Urine received without preservative. Delays in transport may affect results. Interpret with caution. A clinical correlation is recommended. Performed By: #### U A #### [facility] ([address] [address] VIR W.B.CELLS 20 High 0-5 [facility] Comment on above: Order Comment: Urine received without preservative. Delays in transport may affect results. Interpret with caution. A clinical correlation is recommended. Performed By: #### U A #### [facility] ([address] [place] [address] VIR URINE CULTUREon 05-01-2025 Bacteria identified Cx [...] Trimethoprim + Sulfamethoxazole S <=^1.0 F Susceptible [facility] Comment on above: Order Comment: Urine received without preservative - delays in transport may affect results. Interpret with caution and clinical correlation is recommended. Performed By: #### T HYR #### [facility] ([address] [place] [address] VIR BASIC METABOLIC PANELon Anion gap [Moles/Vol] 12 mmol/L Normal 5-15 [facility] Comment on above: Performed By: #### B MP #### [facility] ([address] [address] VIR Calcium [Mass/Vol] 9.4 mg/dL Normal 8.5-10.5 [facility] Comment on above: Performed By: #### B MP #### [facility] ([address] [place] [address] VIR Chloride [Moles/Vol] 102 mmol/L Normal 98-109 [facility] Comment on above: Performed By: #### B MP #### [facility] ([address] [place] [address] VIR CO2 [Moles/Vol] 21 mmol/L Low 22-32 [facility] Comment on above: Performed By: #### B MP #### [facility] ([address] [place] [address] VIR Creatinine [Mass/Vol] 2.29 mg/dL High 0.40-1.00 [facility] Comment on above: Result Comment: METH OD TRACEABLE TO IDMS STANDARD Performed By: #### B MP #### [facility] ([address] [address] VIR GFR/1.73 sq M.predicted among non-blacks MDRD (S/P/Bld) [Vol rate/Area] 20 mL/min/{1.73_m2} Low >=60 [facility] Comment on above: Result Comment: eGFR not reported due to non-numeric value for Creatinine. Reported eGFR is based on the CKD-EPI 2021 equation that does not use a race coefficient. Performed By: #### B MP #### [facility] ([address] [place] [address] VIR Glucose [Mass/Vol] 188 mg/dL High 65-99 [facility] Comment on above: Performed By: #### B MP #### [facility] ([address] [place] [address] VIR Potassium [Moles/Vol] 4.9 mmol/L Normal 3.5-5.0 [facility] Comment on above: Performed By: #### B MP #### [facility]) [address] [place] [address]. [place] [address] VIR Sodium [Moles/Vol] 135 mmol/L Normal 134-146 [facility] Comment on above: Performed By: #### B MP #### [facility] (PENDING SALE [facility]) [address] [place] [address]. [place] [address] VIR Urea nitrogen [Mass/Vol] 29 mg/dL High 5-27 [facility] Comment on above: Performed By: #### B MP #### [facility] (PEND[facility] S[facility]) [address] [place] [address] VIR Urine Cultureon 03-07-2025 Bacteria identified Cx Nom (U) 25,000 colonies/ml mixed bacterial skin contaminants 2 Days PERFORMED BY: [place] [address] PATHOLOGIST CHECK OUT CLERK DEBORAH VIZCAINO M.D. Normal [facility] Comment on above: Performed By: #### C UU #### [address] CBC WITH AUTO DIFFERENTIALon 03-05-2025 BASOPHILS ABSOLUTE COUNT (10*3/UL) BY AUTOMATED COUNT 0.0 10*3/uL Normal [facility] Comment on above: Performed By: #### C BCA #### [facility] ([facility]END[facility]) [address] [place] [address] VIR BASOPHILS RELATIVE PERCENT BY AUTOMATED COUNT 0.7 % Normal [facility] Comment on above: Performed By: #### C BCA #### [facility] ([facility]END[facility]) [address] [place] [address]. [place] [address] VIR CELLAVISION DIFFERENTIAL TYPE AUTOMATED DIFFERENTIAL Normal [facility] Comment on above: Performed By: #### C BCA #### [facility] ([facility]) [address] [place] [address] VIR Eosinophils (Bld) [#/Vol] 0.2 10*3/uL Normal [facility] Comment on above: Performed By: #### C BCA #### [facility] ([address] [address] VIR EOSINOPHILS RELATIVE PERCENT BY AUTOMATED COUNT 2.5 % Normal [facility] Comment on above: Performed By: #### C BCA #### [facility] ([address] [address] VIR Erythrocyte distribution width (RBC) [Ratio] 15.8 % High 11.5-15 [facility] Comment on above: Performed By: #### C BCA #### [facility] ([address] [address] VIR Hematocrit (Bld) [Volume fraction] 34.8 % Low 35-47 [facility] Comment on above: Performed By: #### C BCA #### [facility] ([address] [address] VIR Hemoglobin (Bld) [Mass/Vol] 11.4 g/dL Low 11.7-15.5 [facility] Comment on above: Performed By: #### C BCA #### [facility] ([address] [address] VIR LYMPHOCYTES ABSOLUTE COUNT (10*3/UL) BY AUTOMATED COUNT 2.0 10*3/uL Normal [facility] Comment on above: Performed By: #### C BCA #### [facility] ([address] [address] VIR LYMPHOCYTES RELATIVE PERCENT BY AUTOMATED COUNT 30.3 % Normal [facility] Comment on above: Performed By: #### C BCA #### [facility] ([address] [address] VIR MCH (RBC) [Entitic mass] 28.6 pg Normal 27-34 [facility] Comment on above: Performed By: #### C BCA #### [facility] ([address] [place] [address] VIR MCHC (RBC) [Mass/Vol] 32.7 g/dL Normal 32-36 [facility] Comment on above: Performed By: #### C BCA #### [facility] ([address] [place] [address] VIR MCV (RBC) [Entitic vol] 88 fL Normal 80-100 [facility] Comment on above: Performed By: #### C BCA #### [facility] ([address] [place] [address] VIR MONOCYTES ABSOLUTE COUNT (10*3/UL) BY AUTOMATED COUNT 0.6 10*3/uL Normal [facility] Comment on above: Performed By: #### C BCA #### [facility] ([address] [place] [address] VIR MONOCYTES RELATIVE PERCENT BY AUTOMATED COUNT 8.9 % Normal [facility] Comment on above: Performed By: #### C BCA #### [facility] ([address] [place] [address] VIR NEUTROPHILS ABSOLUTE COUNT BY AUTOMATED COUNT 3.8 10*3/uL Normal [facility] Comment on above: Performed By: #### C BCA #### [facility] ([address] [place] [address] VIR NEUTROPHILS RELATIVE PERCENT BY AUTOMATED COUNT 57.6 % Normal [facility] Comment on above: Performed By: #### C BCA #### [facility] ([address] [place] [address] VIR Platelet mean volume (Bld) [Entitic vol] 9.0 fL Normal 7-12 [facility] Comment on above: Performed By: #### C BCA #### [facility] ([address] [place] [address] VIR Platelets (Bld) [#/Vol] 236 10*3/uL Normal 150-450 [facility] Comment on above: Performed By: #### C BCA #### [facility] ([address] [place] [address] VIR RBC COUNT 3.98 X10E12/L Normal 3.8-5.2 [facility] Comment on above: Performed By: #### C BCA #### [facility] ([address] [place] [address] VIR WBC (Bld) [#/Vol] 6.6 10*3/uL Normal 4-11 [facility] Comment on above: Performed By: #### C BCA #### [facility] ([address] [place] [address] VIR COMPREHENSIVE METABOLIC PANE Elmer 03-05-2025 Albumin [Mass/Vol] 4.1 g/dL Normal 3.2-5.3 [facility] Comment on above: Performed By: #### C MP #### [facility] ([address] [place] [address] VIR ALP [Catalytic activity/Vol] 76 U/L Normal 39-130 [facility] Comment on above: Performed By: #### C MP #### [facility] ([address] [place] [address] VIR ALT [Catalytic activity/Vol] 18 U/L Normal <=31 [facility] Comment on above: Performed By: #### C MP #### [facility] ([address] [place] [address] VIR Anion gap [Moles/Vol] 8 mmol/L Normal 5-15 [facility] Comment on above: Performed By: #### C MP #### [facility] ([address] [place] [address] VIR AST [Catalytic activity/Vol] 21 U/L Normal <=41 [facility] Comment on above: Performed By: #### C MP #### [facility] ([address] [place] [address] VIR Bilirubin [Mass/Vol] 0.6 mg/dL Normal 0.3-1.2 [facility] Comment on above: Performed By: #### C MP #### [facility] ([address] [place] [address] VIR Calcium [Mass/Vol] 9.4 mg/dL Normal 8.5-10.5 [facility] Comment on above: Performed By: #### C MP #### [facility] ([address] [place] [address] VIR Chloride [Moles/Vol] 103 mmol/L Normal 98-109 [facility] Comment on above: Performed By: #### C MP #### [facility] ([address] [place] [address] VIR CO2 [Moles/Vol] 24 mmol/L Normal 22-32 [facility] Comment on above: Performed By: #### C MP #### [facility] ([address] [place] [address] VIR Creatinine [Mass/Vol] 2.14 mg/dL High 0.40-1.00 [facility] Comment on above: Result Comment: METH OD TRACEABLE TO IDMS STANDARD Performed By: #### C MP #### [facility] ([address] [place] [address] VIR GFR/1.73 sq M.predicted among non-blacks MDRD (S/P/Bld) [Vol rate/Area] 22 mL/min/{1.73_m2} Low >=60 [facility] Comment on above: Result Comment: Repo rted eGFR is based on the CKD-EPI 2020 equation that does not use a race coefficient. Performed By: #### C MP #### [facility] (PENDING SALE TO [facility]) [address] [place] [address] VIR Glucose [Mass/Vol] 102 mg/dL High 65-99 [facility] Comment on above: Performed By: #### C MP #### [facility] (PENDING SALE TO [facility]) [address] [place] [address] VIR Potassium [Moles/Vol] 6.3 mmol/L Critically high 3.5-5.0 [facility] Comment on above: Performed By: #### C MP #### [facility] ([address] [place] [address] VIR Protein [Mass/Vol] 7.0 g/dL Normal 6.0-8.0 [facility] Comment on above: Performed By: #### C MP #### [facility] ([address] [place] [address] VIR Sodium [Moles/Vol] 135 mmol/L Normal 134-146 [facility] Comment on above: Performed By: #### C MP #### [facility] ([address] [place] [address] VIR Urea nitrogen [Mass/Vol] 30 mg/dL High 5-27 [facility] Comment on above: Performed By: #### C MP #### [facility] ([address] [place] [address] VIR HEMOGLOBIN A1Con 03-05-2025 Glucose [Mass/Vol] 123 mg/dL Normal [facility] Comment on above: Performed By: #### H A1C #### [facility] ([facility]) [address] [place] [address] VIR HbA1c (Bld) [Mass fraction] 5.9 % High 4.4-5.6 [facility] Comment on above: Result Comment: ADA Guidelines Result HgbA1c Normal : less than 5.7 % Prediabetes : 5.7 % to 6.4 % Diabetes : > 6.4 % Use with caution in patients with abnormal hemoglobin variants as the half-life of red blood cells and in vivo glycation rates are affected. Performed By: #### H A1C #### [facility] ([facility]) [address] [place] [address] VIR INSULINon 03-05-2025 INSULIN 19.48 uIU/mL Normal 1.00-23.00 [facility] Comment on above: Order Comment: Ref. range is for FASTING NON-DIABETIC POPULATION. Performed By: #### I NSL #### [facility] ([facility]) [address] [place] [address] VIR IRON AND TIBCon 03-05-2025 Iron [Mass/Vol] 48 ug/dL Low 50-170 [facility] Comment on above: Performed By: #### F EPR #### [facility] ([facility]) [address] [place] [address] VIR IRON BINDING 515 ug/dL High 250-425 [facility] Comment on above: Performed By: #### F EPR #### [facility] ([facility]) [address] [place] [address] VIR IRON SATURATION 9 % SATURATION Low 15-[address] [facility] Comment on above: Performed By: #### F EPR #### [facility] ([facility]) [address] [place] [address] VIR Transferrin [Mass/Vol] 368 mg/dL High 168-336 [facility] Comment on above: Performed By: #### F EPR #### [facility] ([facility]) [address] [place] [address] VIR LIPID PROFILEon 03-05-2025 Cholesterol [Mass/Vol] 186 mg/dL Normal 150-200 [facility] Comment on above: Performed By: #### L IPR #### [facility] ([facility]) [address] [place] [address] VIR Cholesterol in HDL [Mass/Vol] 43 mg/dL Normal >39 [facility] Comment on above: Result Comment: HDL <40 mg/dL - High Risk HDL > or = 40mg/dL- Desirable HDL >60 mg/dL - Negative Risk Performed By: #### L IPR #### [facility] ([facility]) [address] [place] [address] VIR Cholesterol in LDL [Mass/Vol] 100 mg/dL Normal <130 [facility] Comment on above: Result Comment: LDL <100 mg/dL - Desirable LDL >160 mg/dL - High Risk Performed By: #### L IPR #### [facility] ([facility]) [address] [place] [address] VIR CHOLESTEROL:HDL 4.3 Normal 1.0-5.0 [facility] Comment on above: Performed By: #### L IPR #### [facility] ([facility]) [address] [place] [address] VIR Triglyceride [Mass/Vol] 217 mg/dL High 27-150 [facility] Comment on above: Performed By: #### L IPR #### [facility] ([facility]) [address] [place] [address] VIR VERY LOW LIPOPROTEIN 43 mg/dL High 0-30 [facility] Comment on above: Performed By: #### L IPR #### [facility] ([facility]) [address] [place] [address] VIR THYROID PROFILE INCLUDES TSH FT4on 03-05-2025 Free T4 [Mass/Vol] 0.93 ng/dL Normal 0.61-1.60 [facility] Comment on above: Performed By: #### T HYR #### [facility] (PENDING SALE TO [facility]) [address] [place], [place] [address]. [place] [address] VIR TSH 2.21 uIU/mL Normal 0.49-4.67 [facility] Comment on above: Performed By: #### T HYR #### [facility] (PENDING S[facility]) [address] [facility] [place] [address] VIR VITAMIN D 25 HYDROXYon 03-05 VITAMIN D 25 HYD TOT 35.4 ng/mL Normal 30.0-100.0 [facility] Comment on above: Order Comment: Vitam in D status 25 [place] Vitamin D Deficiency <20 ng/mL Insufficiency 20-29 ng/mL Sufficiency 30-100 ng/mL Toxicity >100 ng/mL NOTE: A pediatric reference range has not been established by the can labeler of this kit. The [place] [employer] recommends a Vitamin D level of = or >20ng/mL in infants and children. Performed By: #### V ITD #### [facility] ([facility]) [address] [place] [address] VIR CULTURE URINEon 01-22-2023 CULTURE URINE Culture Observations : NO GROWTH. Normal [facility] Comment on above: Performed By: #### U A #### [facility] [address] [place] [address] Dr. Noreen Castro UA RANDOM W/MICROSCOPICon BACTERIA NONE SEEN Normal NONE SEEN [facility] Comment on above: Performed By: #### U AMIC #### [facility] [address] [address] [address] Noreen Castro Bilirubin Ql (U) Negative Normal NEGATIVE [facility] Comment on above: Performed By: #### U AMIC #### [facility] [address] [address] [address] Noreen Castro CAST NONE SEEN Normal NONE SEEN [facility] Comment on above: Performed By: #### U AMIC #### [facility] [address] [address] [address] Noreen Castro Clarity (U) SL CLOUDY Abnormal CLEAR [facility] Comment on above: Performed By: #### U AMIC #### [facility] [address] [address] [address] Noreen Castro Color (U) LT. YELLOW Normal YELLOW [facility] Comment on above: Performed By: #### U AMIC #### [facility] [address] [address] [address] Noreen Castro Crystals LM Nom (Urine sed) NONE SEEN Normal NONE SEEN [facility] Comment on above: Performed By: #### U AMIC #### [facility] [address] [address] [address] Noreen Castro Epithelial cells LM Ql (Urine sed) FEW Abnormal NONE SEEN /RARE [facility] Comment on above: Performed By: #### U AMIC #### [facility] [address] [place] [address] Dr. Noreen Castro Glucose Ql (U) Negative Normal NEGATIVE [facility] Comment on above: Performed By: #### U AMIC #### [facility] [address] [address] [address] Noreen Castro Hemoglobin Ql (U) Negative Normal NEGATIVE [facility] Comment on above: Performed By: #### U AMIC #### [facility] [address] [address] [address] Noreen Castro Ketones Ql (U) Negative Normal NEGATIVE [facility] Comment on above: Performed By: #### U AMIC #### [facility] [address] [address] [address] Noreen Castro LEUKOCYTES Negative Normal NEGATIVE [facility] Comment on above: Performed By: #### U AMIC #### [facility] [address] [address] [address] Noreen Castro MUCOUS NONE SEEN Normal NONE SEEN [facility] Comment on above: Performed By: #### U AMIC #### [facility] [address] [address] [address] Noreen Castro Nitrite Ql (U) Negative Normal NEGATIVE [facility] Comment on above: Performed By: #### U AMIC #### [facility] [address] [place] [address] Dr. Noreen Castro pH (U) 6.0 [pH] Normal 5-9 [facility] Comment on above: Performed By: #### U AMIC #### [facility] [address] [place] [address] Dr. Noreen Castro RBC NONE SEEN Abnormal 0-2 [facility] Comment on above: Performed By: #### U AMIC #### [facility] [address] [place] [address] Dr. Noreen Castro SPEC GRAVITY 1.015 Normal 1.005-<=1.02 5 [facility] Comment on above: Performed By: #### U AMIC #### [facility] [address] [place] [address] Dr. Noreen Castro UA PROTEIN TRACE Normal NEGATIVE/ TRACE [facility] Comment on above: Performed By: #### U AMIC #### [facility] [address] [place] [address] Dr. Noreen Castro Urobilinogen Qn (U) 0.2 {Scarlett'U}/dL Normal 0.2 - 1.0 [facility] Comment on above: Performed By: #### U AMIC #### [facility] [address] [place] [address] Dr. Noreen Castro WBC 0-2 Abnormal NONE SEEN [facility] Comment on above: Performed By: #### U AMIC #### [facility] [address] [place] [address] Dr. Noreen Castro BILIRUBIN CONJUGATED (DIRECT )on 11-16-2022 BILI, CONJUGATED 0.1 mg/dL Normal 0.0-0.2 [facility] Comment on above: Performed By: #### D NATASHA, CMP #### [facility] [address] [place] [address] Dr. Noreen Castro CBC AUTO DIFFon 11-16-2022 BASO # 0.1 103/ul Normal 0.0-0.1 [facility] Comment on above: Performed By: #### C BC #### [facility] [address] [place] [address] Dr. Noreen Castro Basophils/100 WBC (Bld) 0.6 % Normal 0.2-2.0 [facility] Comment on above: Performed By: #### C BC #### [facility] [address] [place] [address] Dr. Noreen Castro EO # 0.2 103/ul Normal 0.0-0.7 [facility] Comment on above: Performed By: #### C BC #### [facility] [address] [place] [address] Dr. Noreen Castro Eosinophils/100 WBC (Bld) 1.8 % Normal 0.9-7.0 [facility] Comment on above: Performed By: #### C BC #### [facility] [address] [place] [address] Dr. Noreen Castro Erythrocyte distribution width (RBC) [Ratio] 14.1 % Normal 11.0-15.0 [facility] Comment on above: Performed By: #### C BC #### [facility] [address] [place] [address] Dr. Noreen Castro Hematocrit (Bld) [Volume fraction] 35.0 % Critically low 36.0-48.0 [facility] Comment on above: Performed By: #### C BC #### [facility] [address] [place] [address] Dr. Noreen Castro Hemoglobin (Bld) [Mass/Vol] 12.0 g/dL Normal 12.0-16.0 [facility] Comment on above: Performed By: #### C BC #### [facility] [address] [place] [address] Dr. Noreen Castro IG # 0.07 10e3/ul Critically high 0.00-0.03 [facility] Comment on above: Performed By: #### C BC #### [facility] [address] [place] [address] Dr. Noreen Castro IG % 0.7 % Critically high 0.0-0.5 [facility] Comment on above: Performed By: #### C BC #### [facility] [address] [place] [address] Dr. Noreen Castro LYMPH # 2.8 103/ul Normal 1.2-3.8 [facility] Comment on above: Performed By: #### C BC #### [facility] [address] [place] [address] Dr. Noreen Castro Lymphocytes/100 WBC (Bld) 27.1 % Normal 20.5-60.0 [facility] Comment on above: Performed By: #### C BC #### [facility] [address] [place] [address] Dr. Noreen Castro MANUAL DIFF REQ NO Normal [facility] Comment on above: Performed By: #### C BC #### [facility] [address] [place] [address] Dr. Noreen Castro MCH (RBC) [Entitic mass] 31.1 pg Normal 26.7-34.0 [facility] Comment on above: Performed By: #### C BC #### [facility] [address] [place] [address] Dr. Noreen Castro MCHC (RBC) [Mass/Vol] 34.3 g/dL Normal 29.9-35.2 [facility] Comment on above: Performed By: #### C BC #### [facility] [address] [place] [address] Dr. Noreen Castro MCV (RBC) [Entitic vol] 90.7 fL Normal 81.0-99.0 [facility] Comment on above: Performed By: #### C BC #### [facility] [address] [place] [address] Dr. Noreen Castro MONO # 0.8 103/ul Normal 0.3-0.8 [facility] Comment on above: Performed By: #### C BC #### [facility] [address] [place] [address] Dr. Noreen Castro Monocytes/100 WBC (Bld) 8.0 % Normal 1.7-12.0 [facility] Comment on above: Performed By: #### C BC #### [facility] [address] [place] [address] Dr. Noreen Castro NEUT # 6.3 103/ul Normal 1.4-6.5 [facility] Comment on above: Performed By: #### C BC #### [facility] [address] [address] [address] Noreen Castro Neutrophils/100 WBC (Bld) 61.8 % Normal 43.0-75.0 [facility] Comment on above: Performed By: #### C BC #### [facility] [address] [address] [address] Noreen Castro Platelet mean volume (Bld) [Entitic vol] 9.6 fL Normal 9.5-13.5 [facility] Comment on above: Performed By: #### C BC #### [facility] [address] [place] [address] Dr. Noreen Castro PLT 210 103/ul Normal 150-450 [facility] Comment on above: Performed By: #### C BC #### [facility] [address] [place] [address] Dr. Noreen Castro RBC 3.86 106/ul Critically low 4.20-5.40 [facility] Comment on above: Performed By: #### C BC #### [facility] [address] [place] [address] Dr. Noreen Castro WBC 10.1 103/ul Normal 4.0-11.0 [facility] Comment on above: Performed By: #### C BC #### [facility] [address] [place] [address] Dr. Noreen Castro PROF 14(COMP METB)on 023 Albumin [Mass/Vol] 3.8 g/dL Normal 3.4-5.0 [facility] Comment on above: Performed By: #### D NATASHA, CMP #### [facility] [address] [place] [address] Dr. Noreen Castro Albumin/Globulin [Mass ratio] 1.1 {ratio} Normal [facility] Comment on above: Performed By: #### D NATASHA, CMP #### [facility] [address] [address] [address] Noreen Castro ALP [Catalytic activity/Vol] 76 U/L Normal 46-116 [facility] Comment on above: Performed By: #### D NATASHA, CMP #### [facility] [address] [address] [address] Noreen Castro ALT [Catalytic activity/Vol] 15 U/L Normal 14-59 [facility] Comment on above: Performed By: #### D NATASHA, CMP #### [facility] [address] [address] [address] Noreen Castro Anion gap [Moles/Vol] 12.7 mmol/L Normal [facility] Comment on above: Performed By: #### D NATASHA, CMP #### [facility] [address] [address] [address] Noreen Castro AST [Catalytic activity/Vol] 19 U/L Normal 15-37 [facility] Comment on above: Performed By: #### D NATASHA, CMP #### [facility] [address] [address] [address] Noreen Castro Bilirubin [Mass/Vol] 0.3 mg/dL Normal 0.2-1.0 [facility] Comment on above: Performed By: #### D NATASHA, CMP #### [facility] [address] [address] [address] Noreen Castro Calcium [Mass/Vol] 9.6 mg/dL Normal 8.5-10.1 [facility] Comment on above: Performed By: #### D NATASHA, CMP #### [facility] [address] [address] [address] Noreen Castro Chloride [Moles/Vol] 100 mmol/L Normal 98-107 [facility] Comment on above: Performed By: #### D NATASHA, CMP #### [facility] [address] [address] [address] Noreen Castro CO2 [Moles/Vol] 29.4 mmol/L Normal 21.0-32.0 [facility] Comment on above: Performed By: #### D NATASHA, CMP #### [facility] [address] [address] [address] Noreen Castro Creatinine [Mass/Vol] 2.18 mg/dL Critically high 0.55-1.02 [facility] Comment on above: Performed By: #### D NATASHA, CMP #### [facility] [address] [address] [address] Noreen Castro EGFR-AF PARAGUAYAN 26 mL/min/1.73m2 Critically low >=60 [facility] Comment on above: Performed By: #### D NATASHA, CMP #### [facility] [address] [address] [address] Noreen Castro EGFR-NON AF PARAGUAYAN 22 mL/min/1.73m2 Critically low >=60 [facility] Comment on above: Performed By: #### D NATASHA, CMP #### [facility] [address] [place] [address] Dr. Noreen Castro Globulin (S) [Mass/Vol] 3.6 g/dL Normal [facility] Comment on above: Performed By: #### D NATASHA, CMP #### [facility] [address] [place] [address] Dr. Noreen Castro Glucose [Mass/Vol] 89 mg/dL Normal 74-106 [facility] Comment on above: Performed By: #### D NATASHA, CMP #### [facility] [address] [place] [address] Dr. Noreen Castro Potassium [Moles/Vol] 5.1 mmol/L Normal 3.5-5.1 [facility] Comment on above: Performed By: #### D NATASHA, CMP #### [facility] [address] [place] [address] Dr. Noreen Castro Protein [Mass/Vol] 7.4 g/dL Normal 6.4-8.2 [facility] Comment on above: Performed By: #### D NATASHA, CMP #### [facility] [address] [place] [address] Dr. Noreen Castro Sodium [Moles/Vol] 137 mmol/L Normal 136-145 [facility] Comment on above: Performed By: #### D NATASHA, CMP #### [facility] [address] [place] [address] Dr. Noreen Castro Urea nitrogen [Mass/Vol] 27.0 mg/dL Critically high 7.0-18.0 [facility] Comment on above: Performed By: #### D NATASHA, CMP #### [facility] [address] [address] [address] Noreen Castro Urea nitrogen/Creatinin e [Mass ratio] 12.4 mg/mg Normal [facility] Comment on above: Performed By: #### D NATASHA, CMP #### [facility] [address] [address] [address] Noreen Castro Provider Orderson 08-31-2022 Provider Orders [id number] [facility] C Urineon 08-30-2022 C Urine <10,000 cfu/ml [facility] Comment on above: Performed By: #### [id number] #### [facility] [employer] (DEFAULT) [address] [place] [address] [id number] UA Standardon 08-28-2022 Breakpoint UA [facility] Comment on above: Performed By: #### 1 [id number] #### [facility] [employer] [employer] (DEFAULT) [address] [place] [address] [phone] Color (U) Yellow [facility] Comment on above: Performed By: #### 1 [id number] #### [facility] [employer] [employer] (DEFAULT) [address] [place] [address] 34699 Glucose (U) [Mass/Vol] Negative [facility] Comment on above: Performed By: #### 1 [id number] #### [facility] [employer] [employer] (DEFAULT) [address] [place] [address] 50295 Ketones Ql (U) Negative [facility] Comment on above: Performed By: #### 1 [id number] #### [facility] [employer] [employer] (DEFAULT) [address] [place] [address] 07907 UA Bilirubin Negative [facility] Comment on above: Performed By: #### 1 [id number] #### [facility] [employer] (DEFAULT) [address] [place] [address] 03274 UA Blood Negative Normal [facility] Comment on above: Performed By: #### 1 [id number] #### [facility] [employer] [employer] (DEFAULT) [address] [place] [address] 29421 UA Clarity CLEAR Normal CLEAR [facility] Comment on above: Performed By: #### 1 [id number] #### [facility] [employer] [employer] (DEFAULT) [address] [place] [address] 64924 UA Leuk Est TRACE Abnormal NEGATIVE [facility] Comment on above: Performed By: #### 1 [id number] #### [facility] [employer] (DEFAULT) [address] [place] [address] 18382 UA Nitrite Negative Normal NEGATIVE [facility] Comment on above: Performed By: #### 1 [id number] #### [facility] [employer] [employer] (DEFAULT) [address] [place] [address] 36651 UA pH 6.0 Normal 5-8 [facility] Comment on above: Performed By: #### 1 [id number] #### [facility] [employer] [employer] (DEFAULT) [address] [place] [address] 89757 UA Protein TRACE Abnormal NEGATIVE [facility] Comment on above: Performed By: #### 1 [id number] #### [facility] [employer] [employer] (DEFAULT) [address] [place] [address] 91846 UA Spec Grav 1.020 Normal 1.001-1.035 [facility] Comment on above: Performed By: #### 1 [id number] #### [facility] [employer] [employer] (DEFAULT) [address] [place] [address] 87695 UA Urobilinogen 0.2 mg/dL Normal 0.2-1.0 [facility] Comment on above: Performed By: #### 1 [id number] #### [facility] [employer] (DEFAULT) [address] [place] [address] 61611 Urine Source Clean Catch Normal [facility] Comment on above: Performed By: #### 1 [id number] #### [facility] [employer] (DEFAULT) [address] [place] [address] 57533 BILIRUBIN CONJUGATED (DIRECT )on 02-11-2022 BILI, CONJUGATED 0.1 mg/dL Normal 0.0-0.3 [facility] Comment on above: Performed By: #### C MP DBIL #### [facility] [address] [address] [address] Noreen Castro CBC AUTO DIFFon 02-11-2022 BASO # 0.1 103/ul Normal 0.0-0.1 [facility] Comment on above: Performed By: #### U A #### [facility] [address] [place] [address] Dr. Noreen Castor Basophils/100 WBC (Bld) 0.6 % Normal 0.2-2.0 [facility] Comment on above: Performed By: #### U A #### [facility] [address] [place] [address] Dr. Noreen Castro EO # 0.2 103/ul Normal 0.0-0.7 [facility] Comment on above: Performed By: #### U A #### [facility] [address] [place] [address] Dr. Noreen Castro Eosinophils/100 WBC (Bld) 1.2 % Normal 0.9-7.0 [facility] Comment on above: Performed By: #### U A #### [facility] [address] [place] [address] Dr. Noreen Castro Erythrocyte distribution width (RBC) [Ratio] 14.4 % Normal 11.0-15.0 [facility] Comment on above: Performed By: #### U A #### [facility] [address] [place] [address] Dr. Noreen Castro Hematocrit (Bld) [Volume fraction] 39.0 % Normal 36.0-48.0 [facility] Comment on above: Performed By: #### U A #### [facility] [address] [place] [address] Dr. Noreen Castro Hemoglobin (Bld) [Mass/Vol] 12.3 g/dL Normal 12.0-16.0 [facility] Comment on above: Performed By: #### U A #### [facility] [address] [place] [address] Dr. Noreen Castro IG # 0.20 10e3/ul Critically high 0.00-0.03 [facility] Comment on above: Performed By: #### U A #### [facility] [address] [place] [address] Dr. Noreen Castro IG % 1.4 % Critically high 0.0-0.5 [facility] Comment on above: Performed By: #### U A #### [facility] [address] [place] [address] Dr. Noreen Castro LYMPH # 4.4 103/ul Critically high 1.2-3.8 [facility] Comment on above: Performed By: #### U A #### [facility] [address] [place] [address] Dr. Noreen Castro Lymphocytes/100 WBC (Bld) 30.4 % Normal 20.5-60.0 [facility] Comment on above: Performed By: #### U A #### [facility] [address] [place] [address] Dr. Noreen Castro MANUAL DIFF REQ NO Normal [facility] Comment on above: Performed By: #### U A #### [facility] [address] [place] [address] Dr. Noreen Castro MCH (RBC) [Entitic mass] 30.8 pg Normal 26.7-34.0 [facility] Comment on above: Performed By: #### U A #### [facility] [address] [place] [address] Dr. Noreen Castro MCHC (RBC) [Mass/Vol] 31.5 g/dL Normal 29.9-35.2 [facility] Comment on above: Performed By: #### U A #### [facility] [address] [place] [address] Dr. Noreen Castro MCV (RBC) [Entitic vol] 97.5 fL Normal 81.0-99.0 [facility] Comment on above: Performed By: #### U A #### [facility] [address] [place] [address] Dr. Noreen Castro MONO # 1.0 103/ul Critically high 0.3-0.8 [facility] Comment on above: Performed By: #### U A #### [facility] [address] [address] [address] Noreen Castro Monocytes/100 WBC (Bld) 6.8 % Normal 1.7-12.0 [facility] Comment on above: Performed By: #### U A #### [facility] [address] [address] [address] Noreen Castro NEUT # 8.6 103/ul Critically high 1.4-6.5 [facility] Comment on above: Performed By: #### U A #### [facility] [address] [address] [address] Noreen Castro Neutrophils/100 WBC (Bld) 59.6 % Normal 43.0-75.0 [facility] Comment on above: Performed By: #### U A #### [facility] [address] [place] [address] Dr. Noreen Castro Platelet mean volume (Bld) [Entitic vol] 9.9 fL Normal 9.5-13.5 [facility] Comment on above: Performed By: #### U A #### [facility] [address] [place] [address] Dr. Noreen Castro PLT 283 103/ul Normal 150-450 [facility] Comment on above: Performed By: #### U A #### [facility] [address] [place] [address] Dr. Noreen Castro RBC 4.00 106/ul Critically low 4.20-5.40 [facility] Comment on above: Performed By: #### U A #### [facility] [address] [place] [address] Dr. Noreen Castro WBC 14.5 103/ul Critically high 4.0-11.0 [facility] Comment on above: Performed By: #### U A #### [facility] [address] [place] [address] Dr. Noreen Castro CULTURE URINEon 02-11-2022 CULTURE [...] Trimethoprim/Sulfamethoxaz ole >=320 R F Normal [facility] Comment on above: Performed By: #### U RCX #### [facility] [address] [place] [address] Dr. Noreen Castro DRUG SCREEN RAPID (URINE)on 02-11-2022 AMP Negative Normal NEGATIVE [facility] Comment on above: Performed By: #### U A #### [facility] [address] [place] [address] Dr. Noreen Castro BAR Negative Normal NEGATIVE [facility] Comment on above: Performed By: #### U A #### [facility] [address] [place] [address] Dr. Noreen Castro BUP Negative Normal NEGATIVE [facility] Comment on above: Performed By: #### U A #### [facility] [address] [place] [address] Dr. Noreen Castro BZO Negative Normal NEGATIVE [facility] Comment on above: Performed By: #### U A #### [facility] [address] [place] [address] Dr. Noreen Castro VERONICA Negative Normal NEGATIVE [facility] Comment on above: Performed By: #### U A #### [facility] [address] [place] [address] Dr. Noreen Castro CUT-OFFS SEE BELOW Normal [facility] Comment on above: Result Comment: AMP [...] ng/mL Performed By: #### U A #### [facility] [address] [place] [address] Dr. Noreen Castro DRUG CUT HEADER DRUG CLASS TEST SYST EM CUT-OFF CONCENTRATIONS ARE FOLLOWS: Normal [facility] Comment on above: Performed By: #### U A #### [facility] [address] [place] [address] Dr. Noreen Castro mAMP Negative Normal NEGATIVE [facility] Comment on above: Performed By: #### U A #### [facility] [address] [place] [address] Dr. Noreen Castro MTD Negative Normal NEGATIVE [facility] Comment on above: Performed By: #### U A #### [facility] [address] [place] [address] Dr. Noreen Castro OPI Negative Normal NEGATIVE [facility] Comment on above: Performed By: #### U A #### [facility] [address] [place] [address] Dr. Noreen Castro OXY Negative Normal NEGATIVE [facility] Comment on above: Performed By: #### U A #### [facility] [address] [place] [address] Dr. Noreen aCstro PCP Negative Normal NEGATIVE [facility] Comment on above: Performed By: #### U A #### [facility] [address] [place] [address] Dr. Noreen Castro PPX Negative Normal NEGATIVE [facility] Comment on above: Performed By: #### U A #### [facility] [address] [place] [address] Dr. Noreen Castro TCA Positive Abnormal NEGATIVE [facility] Comment on above: Performed By: #### U A #### [facility] [address] [place] [address] Dr. Noreen Castro THC Negative Normal NEGATIVE [facility] Comment on above: Performed By: #### U A #### [facility] [address] [address] [address] Noreen Castro PROF 14(COMP METB)on 022 Albumin [Mass/Vol] 3.9 g/dL Normal 3.4-5.0 [facility] Comment on above: Performed By: #### C MP, DBIL #### [facility] [address] [place] [address] Dr. Noreen Castro Albumin/Globulin [Mass ratio] 0.9 {ratio} Normal [facility] Comment on above: Performed By: #### C MP, DBIL #### [facility] [address] [place] [address] Dr. Noreen Castro ALP [Catalytic activity/Vol] 76 U/L Normal 46-116 [facility] Comment on above: Performed By: #### C MP, DBIL #### [facility] [address] [place] [address] Dr. Noreen Castro ALT [Catalytic activity/Vol] 39 U/L Normal 14-59 [facility] Comment on above: Performed By: #### C MP, DBIL #### [facility] [address] [place] [address] Dr. Noreen Castro Anion gap [Moles/Vol] 18.4 mmol/L Normal [facility] Comment on above: Performed By: #### C MP, DBIL #### [facility] [address] [place] [address] Dr. Noreen Castro AST [Catalytic activity/Vol] 30 U/L Normal 15-37 [facility] Comment on above: Performed By: #### C MP, DBIL #### [facility] [address] [place] [address] Dr. Noreen Castro Bilirubin [Mass/Vol] 0.4 mg/dL Normal 0.2-1.3 [facility] Comment on above: Performed By: #### C MP, DBIL #### [facility] [address] [place] [address] Dr. Noreen Castro Calcium [Mass/Vol] 9.2 mg/dL Normal 8.5-10.1 [facility] Comment on above: Performed By: #### C MP, DBIL #### [facility] [address] [place] [address] Dr. Noreen Castro Chloride [Moles/Vol] 99 mmol/L Normal 98-107 [facility] Comment on above: Performed By: #### C MP, DBIL #### [facility] [address] [place] [address] Dr. Noreen Castro CO2 [Moles/Vol] 22.2 mmol/L Normal 22.0-30.0 [facility] Comment on above: Performed By: #### C MP, DBIL #### [facility] [address] [place] [address] Dr. Noreen Castro Creatinine [Mass/Vol] 2.72 mg/dL Critically high 0.52-1.04 [facility] Comment on above: Performed By: #### C MP, DBIL #### [facility] [address] [place] [address] Dr. Noreen Castro EGFR-AF PARAGUAYAN 20 mL/min/1.73m2 Critically low >=60 [facility] Comment on above: Performed By: #### C MP, DBIL #### [facility] [address] [place] [address] Dr. Noreen Castro EGFR-NON AF PARAGUAYAN 17 mL/min/1.73m2 Critically low >=60 [facility] Comment on above: Performed By: #### C MP, DBIL #### [facility] [address] [place] [address] Dr. Noreen Castro Globulin (S) [Mass/Vol] 4.3 g/dL Normal [facility] Comment on above: Performed By: #### C MP, DBIL #### [facility] [address] [place] [address] Dr. Noreen Castro Glucose [Mass/Vol] 143 mg/dL Critically high 74-106 [facility] Comment on above: Performed By: #### C MP, DBIL #### [facility] [address] [place] [address] Dr. Noreen Castro Potassium [Moles/Vol] 5.6 mmol/L Critically high 3.4-5.0 [facility] Comment on above: Performed By: #### C MP, DBIL #### [facility] [address] [place] [address] Dr. Noreen Castro Protein [Mass/Vol] 8.2 g/dL Normal 6.1-8.2 [facility] Comment on above: Performed By: #### C MP, DBIL #### [facility] [address] [place] [address] Dr. Noreen Castro Sodium [Moles/Vol] 134 mmol/L Critically low 137-145 [facility] Comment on above: Performed By: #### C MP, DBIL #### [facility] [address] [place] [address] Dr. Noreen Castro Urea nitrogen [Mass/Vol] 36.0 mg/dL Critically high 7.0-18.0 [facility] Comment on above: Performed By: #### C MP, DBIL #### [facility] [address] [place] [address] Dr. Noreen Castro Urea nitrogen/Creatinin e [Mass ratio] 13.2 mg/mg Normal [facility] Comment on above: Performed By: #### C MP, DBIL #### [facility] [address] [place] [address] Dr. Noreen Castro UA RANDOMon 02-08-2022 Bilirubin Ql (U) Negative Normal NEGATIVE [facility] Comment on above: Performed By: #### U A #### [facility] [address] [place] [address] Dr. Noreen Castro Clarity (U) SL CLOUDY Abnormal CLEAR [facility] Comment on above: Performed By: #### U A #### [facility] [address] [place] [address] Dr. Noreen Castro Color (U) LT. YELLOW Normal YELLOW [facility] Comment on above: Performed By: #### U A #### [facility] [address] [place] [address] Dr. Noreen Castro Glucose Ql (U) Negative Normal NEGATIVE [facility] Comment on above: Performed By: #### U A #### [facility] [address] [place] [address] Dr. Noreen Castro Hemoglobin Ql (U) TRACE-INTACT Abnormal NEGATIVE [facility] Comment on above: Performed By: #### U A #### [facility] [address] [place] [address] Dr. Noreen Castro Ketones Ql (U) Negative Normal NEGATIVE [facility] Comment on above: Performed By: #### U A #### [facility] [address] [place] [address] Dr. Noreen Castro LEUKOCYTES MODERATE Abnormal NEGATIVE [facility] Comment on above: Performed By: #### U A #### [facility] [address] [place] [address] Dr. Noreen Castro Nitrite Ql (U) Positive Abnormal NEGATIVE [facility] Comment on above: Performed By: #### U A #### [facility] [address] [place] [address] Dr. Noreen Castro pH (U) 5.0 [pH] Normal 5-9 [facility] Comment on above: Performed By: #### U A #### [facility] [address] [place] [address] Dr. Noreen Castro SPEC GRAVITY 1.020 Normal 1.005-<=1.02 5 [facility] Comment on above: Performed By: #### U A #### [facility] [address] [place] [address] Dr. Noreen Castro UA PROTEIN TRACE Normal NEGATIVE/ TRACE [facility] Comment on above: Performed By: #### U A #### [facility] [address] [place] [address] Dr. Noreen Castro Urobilinogen Qn (U) 0.2 {Scarlett'U}/dL Normal 0.2 - 1.0 [facility] Comment on above: Performed By: #### U A #### [facility] [address] [place] [address] Dr. Noreen Castro CULTURE URINEon 02-01-2022 CULTURE URINE Culture Observations : No growth Normal [facility] Comment on above: Performed By: #### U RCX #### [facility] [address] [place] [address] Dr. Noreen Castro UA RANDOMon 02-01-2022 Bilirubin Ql (U) Negative Normal NEGATIVE [facility] Comment on above: Performed By: #### U A #### [facility] [address] [place] [address] Dr. Noreen Castro Clarity (U) CLEAR Normal CLEAR [facility] Comment on above: Performed By: #### U A #### [facility] [address] [place] [address] Dr. Noreen Castro Color (U) YELLOW Normal YELLOW [facility] Comment on above: Performed By: #### U A #### [facility] [address] [place] [address] Dr. Noreen Castro Glucose Ql (U) Negative Normal NEGATIVE [facility] Comment on above: Performed By: #### U A #### [facility] [address] [place] [address] Dr. Noreen Castro Hemoglobin Ql (U) SMALL Abnormal NEGATIVE [facility] Comment on above: Performed By: #### U A #### [facility] [address] [place] [address] Dr. Noreen Castro Ketones Ql (U) Negative Normal NEGATIVE [facility] Comment on above: Performed By: #### U A #### [facility] [address] [place] [address] Dr. Noreen Castro LEUKOCYTES Negative Normal NEGATIVE [facility] Comment on above: Performed By: #### U A #### [facility] [address] [place] [address] Dr. Noreen Castro Nitrite Ql (U) Negative Normal NEGATIVE [facility] Comment on above: Performed By: #### U A #### [facility] [address] [place] [address] Dr. Noreen Castro pH (U) 5.0 [pH] Normal 5-9 [facility] Comment on above: Performed By: #### U A #### [facility] [address] [address] [address] Noreen Castro SPEC GRAVITY 1.025 Normal 1.005-<=1.02 5 [facility] Comment on above: Performed By: #### U A #### [facility] [address] [address] [address] Noreen Castro UA PROTEIN Negative Normal NEGATIVE/ TRACE [facility] Comment on above: Performed By: #### U A #### [facility] [address] [address] [address] Noreen Castro Urobilinogen Qn (U) 0.2 {Scarlett'U}/dL Normal 0.2 - 1.0 [facility] Comment on above: Performed By: #### U A #### [facility] [address] [address] [address] Noreen Castro POC GLUCOSE LABon 07-19-2018 Glucose mass conc 97 mg/dL Normal 70-100 [facility] Comment on above: Performed By: #### 0 0121 ####[facility] [facility] [place] [address], [facility] Glucose mass conc 110 mg/dL High 70-100 [facility] Comment on above: Performed By: #### 0 0121 ####[facility] [facility] [place] [address], [facility] Glucose mass conc 93 mg/dL Normal 70-100 [facility] Comment on above: Performed By: #### 0 0121 ####[facility] [facility] [place] [address], [facility] Glucose mass conc 92 mg/dL Normal 70-100 [facility] Comment on above: Performed By: #### 0 0121 ####[facility] [facility] [place] [address], [facility] CBC COMPLETE BLOOD COUNTon 0 07-18-2018 Erythrocyte distribution width Auto Ratio (RBC) 14.0 % Normal 11.5-15.0 [facility] Comment on above: Order Comment: No: D o not add to previous draw Performed By: #### 0 0121 ####[facility] Hematocrit Auto Volume Fraction (Bld) 32.3 % Low 36.0-45.0 [facility] Comment on above: Order Comment: No: D o not add to previous draw Performed By: #### 0 0121 ####[facility] Hemoglobin mass conc (Bld) 10.1 g/dL Low 12.0-15.0 [facility] Comment on above: Order Comment: No: D o not add to previous draw Performed By: #### 0 0121 ####[facility] MCH Auto Entitic mass (RBC) 29.6 pg Normal 27.0-33.0 [facility] Comment on above: Order Comment: No: D o not add to previous draw Performed By: #### 0 0121 ####[facility] MCHC Auto mass conc (RBC) 31.3 g/dL Low 32.0-35.0 [facility] Comment on above: Order Comment: No: D o not add to previous draw Performed By: #### 0 0121 ####[facility] MCV Auto Entitic volume (RBC) 94.7 fL Normal 82.0-98.0 [facility] Comment on above: Order Comment: No: D o not add to previous draw Performed By: #### 0 0121 ####[facility] Nucleated RBC/100 WBC Ratio (Bld) 0 % Normal 0-0 [facility] Comment on above: Order Comment: No: D o not add to previous draw Performed By: #### 0 0121 ####[facility] [place] [address], [facility] CNT 372 10*3/uL Normal 150-400 [facility] Comment on above: Order Comment: No: D o not add to previous draw Performed By: #### 0 0121 ####[facility] [place] [address], [facility] RBC Auto #/vol (Bld) 3.41 10*6/uL Low 3.80-5.00 [facility] Comment on above: Order Comment: No: D o not add to previous draw Performed By: #### 0 0121 ####[facility] [place] [address], [facility] WBC Auto #/vol (Bld) 8.69 10*3/uL Normal 4.00-10.60 [facility] Comment on above: Order Comment: No: D o not add to previous draw Performed By: #### 0 0121 ####[facility] [place] [address], [facility] POC GLUCOSE LABon 07-18-2018 Glucose mass conc 101 mg/dL High 70-100 [facility] Comment on above: Performed By: #### 0 0121 ####[facility] [place] [address], [facility] Glucose mass conc 117 mg/dL High 70-100 [facility] Comment on above: Performed By: #### 0 0121 ####[facility] [place] [address], [facility] Glucose mass conc 94 mg/dL Normal 70-100 [facility] Comment on above: Performed By: #### 0 0121 ####[facility] [place] [address], [facility] Glucose mass conc 92 mg/dL Normal 70-100 [facility] Comment on above: Performed By: #### 0 0121 ####[facility] [place] [address], [facility] POC GLUCOSE LABon 07-17-2018 Glucose mass conc 105 mg/dL High 70-100 [facility] Comment on above: Performed By: #### 0 0121 ####[facility] [place] [address], [facility] Glucose mass conc 126 mg/dL High 70-100 [facility] Comment on above: Performed By: #### 0 0121 ####[facility] [place] [address], [facility] Glucose mass conc 118 mg/dL High 70-100 [facility] Comment on above: Performed By: #### 0 0121 ####[facility] [place] [address], [facility] Glucose mass conc 99 mg/dL Normal 70-100 [facility] Comment on above: Performed By: #### 0 0121 ####[facility] [facility] [place] [address], [facility] BASIC METABOLIC PANELon Calcium mass conc 9.4 mg/dL Normal 8.6-10.3 [facility] Comment on above: Order Comment: No: D o not add to previous draw Performed By: #### 0 0121 ####[facility] [place] [address], [facility] Chloride molar conc 104 mmol/L Normal 98-107 [facility] Comment on above: Order Comment: No: D o not add to previous draw Performed By: #### 0 0121 ####[facility] [place] [address], [facility] CO2 molar conc 24 mmol/L Normal 21-31 [facility] Comment on above: Order Comment: No: D o not add to previous draw Performed By: #### 0 0121 ####[facility] [place] [address], [facility] Creatinine mass conc 1.11 mg/dL Normal 0.60-1.20 [facility] Comment on above: Order Comment: No: D o not add to previous draw Performed By: #### 0 0121 ####[facility] [place] [address], [facility] GFR/1.73 sq M predicted among blacks MDRD vol rate/area (S/P/Bld) 57 ml/min/1.73sq m Abnormal >60 [facility] Comment on above: Order Comment: No: D o not add to previous draw Result Comment: Calc ulation may not be valid for patients over 70 years Performed By: #### 0 0121 ####[facility] [place] [address], [facility] GFR/1.73 sq M predicted among non-blacks MDRD vol rate/area (S/P/Bld) 47 ml/min/1.73sq m Abnormal >60 [facility] Comment on above: Order Comment: No: D o not add to previous draw Result Comment: Calc ulation may not be valid for patients over 70 years Performed By: #### 0 0121 ####[facility] [facility] [place] [address], [facility] Glucose mass conc 104 mg/dL High 70-100 [facility] Comment on above: Order Comment: No: D o not add to previous draw Performed By: #### 0 0121 ####[facility] [facility] [place] [address], [facility] Potassium molar conc 4.6 mmol/L Normal 3.5-5.1 [facility] Comment on above: Order Comment: No: D o not add to previous draw Performed By: #### 0 0121 ####[facility] [facility] [place] [address], [place] Sodium molar conc 135 mmol/L Low 136-145 [facility] Comment on above: Order Comment: No: D o not add to previous draw Performed By: #### 0 0121 ####[place] [address] [address] Urea nitrogen mass conc 22 mg/dL Normal 7-25 [facility] Comment on above: Order Comment: No: D o not add to previous draw Performed By: #### 0 0121 ####[facility] CBC W/DIFFon 07-16-2018 ABS BASOPHILS 0.1 10*3/uL Normal 0.0-0.2 [facility] Comment on above: Order Comment: No: D o not add to previous draw Performed By: #### 0 0121 ####[facility] ABS IMM GRANS 0.3 10*3/uL High 0.0-0.2 [facility] Comment on above: Order Comment: No: D o not add to previous draw Performed By: #### 0 0121 ####[place] [address] [address] ABS NEUTROPHILS 6.5 10*3/uL Normal 1.6-7.6 [facility] Comment on above: Order Comment: No: D o not add to previous draw Performed By: #### 0 0121 ####[facility] Basophils Auto #/vol (Bld) 0.6 % Normal 0.0-1.0 [facility] Comment on above: Order Comment: No: D o not add to previous draw Performed By: #### 0 0121 ####[facility] Eosinophils Auto #/vol (Bld) 0.3 10*3/uL Normal 0.0-0.5 [facility] Comment on above: Order Comment: No: D o not add to previous draw Performed By: #### 0 0121 ####[facility] Eosinophils/100 WBC Auto (Bld) 2.5 % Normal 0.0-6.0 [facility] Comment on above: Order Comment: No: D o not add to previous draw Performed By: #### 0 0121 ####[facility] Erythrocyte distribution width Auto Ratio (RBC) 14.4 % Normal 11.5-15.0 [facility] Comment on above: Order Comment: No: D o not add to previous draw Performed By: #### 0 0121 ####[facility] Hematocrit Auto Volume Fraction (Bld) 31.7 % Low 36.0-45.0 [facility] Comment on above: Order Comment: No: D o not add to previous draw Performed By: #### 0 0121 ####[facility] Hemoglobin mass conc (Bld) 10.1 g/dL Low 12.0-15.0 [facility] Comment on above: Order Comment: No: D o not add to previous draw Performed By: #### 0 0121 ####[facility] IMMATURE GRANS 2.8 % High 0.0-1.0 [facility] Comment on above: Order Comment: No: D o not add to previous draw Performed By: #### 0 0121 ####[facility] Lymphocytes Auto #/vol (Bld) 2.4 10*3/uL Normal 1.2-4.0 [facility] Comment on above: Order Comment: No: D o not add to previous draw Performed By: #### 0 0121 ####[facility] Lymphocytes/100 WBC Auto (Bld) 22.1 % Normal 20.0-45.0 [facility] Comment on above: Order Comment: No: D o not add to previous draw Performed By: #### 0 0121 ####[facility] MCH Auto Entitic mass (RBC) 30.3 pg Normal 27.0-33.0 [facility] Comment on above: Order Comment: No: D o not add to previous draw Performed By: #### 0 0121 ####[facility] MCHC Auto mass conc (RBC) 31.9 g/dL Low 32.0-35.0 [facility] Comment on above: Order Comment: No: D o not add to previous draw Performed By: #### 0 0121 ####[place] [address] [address] MCV Auto Entitic volume (RBC) 95.2 fL Normal 82.0-98.0 [facility] Comment on above: Order Comment: No: D o not add to previous draw Performed By: #### 0 0121 ####[facility] Monocytes Auto #/vol (Bld) 1.2 10*3/uL High 0.1-1.0 [facility] Comment on above: Order Comment: No: D o not add to previous draw Performed By: #### 0 0121 ####[facility] MONOS 11.0 % Normal 5.0-12.0 [facility] Comment on above: Order Comment: No: D o not add to previous draw Performed By: #### 0 0121 ####[facility] [address], [facility] Neutrophils/100 WBC Auto (Bld) 61.0 % Normal 40.0-72.0 [facility] Comment on above: Order Comment: No: D o not add to previous draw Performed By: #### 0 0121 ####[facility] [facility].[address] Nucleated RBC/100 WBC Ratio (Bld) 0 % Normal 0-0 [facility] Comment on above: Order Comment: No: D o not add to previous draw Performed By: #### 0 0121 ####[facility] [facility] [place] [address], [facility] PLAT CNT 450 10*3/uL High 150-400 [facility] Comment on above: Order Comment: No: D o not add to previous draw Performed By: #### 0 0121 ####[facility] [facility].[address] RBC Auto #/vol (Bld) 3.33 10*6/uL Low 3.80-5.00 [facility] Comment on above: Order Comment: No: D o not add to previous draw Performed By: #### 0 0121 ####[facility] [address], [facility] WBC Auto #/vol (Bld) 10.68 10*3/uL High 4.00-10.60 [facility] Comment on above: Order Comment: No: D o not add to previous draw Performed By: #### 0 0121 ####[facility] MAGNESIUM BLOODon 07-16-2018 Magnesium mass conc 2.3 mg/dL Normal 1.9-2.7 [facility] Comment on above: Order Comment: No: D o not add to previous draw Performed By: #### 0 0121 ####[facility] [place] [address], [facility] PHOSPHORUS BLOODon 8 Phosphate mass conc 3.6 mg/dL Normal 2.5-5.0 [facility] Comment on above: Order Comment: No: D o not add to previous draw Performed By: #### 0 0121 ####[facility] [place] [address], [facility] POC GLUCOSE LABon 07-16-2018 Glucose mass conc 111 mg/dL High 70-100 [facility] Comment on above: Performed By: #### 0 0121 ####[facility] [place] [address], [facility] Glucose mass conc 159 mg/dL High 70-100 [facility] Comment on above: Performed By: #### 0 0121 ####[facility] [place] [address], [facility] Glucose mass conc 103 mg/dL High 70-100 [facility] Comment on above: Performed By: #### 0 0121 ####[facility] [place] [address], [facility] Glucose mass conc 99 mg/dL Normal 70-100 [facility] Comment on above: Performed By: #### 0 0121 ####[facility] [place] [address], [facility] BASIC METABOLIC PANELon Calcium mass conc 8.8 mg/dL Normal 8.6-10.3 [facility] Comment on above: Order Comment: No: D o not add to previous draw Performed By: #### 0 0121 ####[facility] [place] [address], [facility] Chloride molar conc 106 mmol/L Normal 98-107 [facility] Comment on above: Order Comment: No: D o not add to previous draw Performed By: #### 0 0121 ####[facility] [facility] [place] [address], [facility] CO2 molar conc 23 mmol/L Normal 21-31 [facility] Comment on above: Order Comment: No: D o not add to previous draw Performed By: #### 0 0121 ####[facility] [place] [address], [facility] Creatinine mass conc 1.01 mg/dL Normal 0.60-1.20 [facility] Comment on above: Order Comment: No: D o not add to previous draw Performed By: #### 0 0121 ####[facility] [facility] [place] [address], [facility] GFR/1.73 sq M predicted among blacks MDRD vol rate/area (S/P/Bld) mL/min/{1.73_m2} Normal >60 [facility] Comment on above: Order Comment: No: D o not add to previous draw Result Comment: Calc ulation may not be valid for patients over 70 years Performed By: #### 0 0121 ####[facility] [facility] [place] [address], [facility] GFR/1.73 sq M predicted among non-blacks MDRD vol rate/area (S/P/Bld) 53 ml/min/1.73sq m Abnormal >60 [facility] Comment on above: Order Comment: No: D o not add to previous draw Result Comment: Calc ulation may not be valid for patients over 70 years Performed By: #### 0 0121 ####[facility] [place] [address], [facility] Glucose mass conc 139 mg/dL High 70-100 [facility] Comment on above: Order Comment: No: D o not add to previous draw Performed By: #### 0 0121 ####[facility] [facility] Potassium molar conc 4.1 mmol/L Normal 3.5-5.1 [facility] Comment on above: Order Comment: No: D o not add to previous draw Performed By: #### 0 0121 ####[facility] [facility].[address] Sodium molar conc 136 mmol/L Normal 136-145 [facility] Comment on above: Order Comment: No: D o not add to previous draw Performed By: #### 0 0121 ####[facility] Urea nitrogen mass conc 26 mg/dL High 7-25 [facility] Comment on above: Order Comment: No: D o not add to previous draw Performed By: #### 0 0121 ####[facility] CBC W/DIFFon 07-15-2018 ABS BASOPHILS 0.0 10*3/uL Normal 0.0-0.2 [facility] Comment on above: Order Comment: No: D o not add to previous draw Performed By: #### 0 0121 ####[facility] ABS IMM GRANS 0.3 10*3/uL High 0.0-0.2 [facility] Comment on above: Order Comment: No: D o not add to previous draw Performed By: #### 0 0121 ####[facility] ABS NEUTROPHILS 5.7 10*3/uL Normal 1.6-7.6 [facility] Comment on above: Order Comment: No: D o not add to previous draw Performed By: #### 0 0121 ####[facility] [facility].[address] Basophils Auto #/vol (Bld) 0.4 % Normal 0.0-1.0 [facility] Comment on above: Order Comment: No: D o not add to previous draw Performed By: #### 0 0121 ####[facility] Eosinophils Auto #/vol (Bld) 0.2 10*3/uL Normal 0.0-0.5 [facility] Comment on above: Order Comment: No: D o not add to previous draw Performed By: #### 0 0121 ####[facility] Eosinophils/100 WBC Auto (Bld) 2.1 % Normal 0.0-6.0 [facility] Comment on above: Order Comment: No: D o not add to previous draw Performed By: #### 0 0121 ####[facility] Erythrocyte distribution width Auto Ratio (RBC) 14.1 % Normal 11.5-15.0 [facility] Comment on above: Order Comment: No: D o not add to previous draw Performed By: #### 0 0121 ####[facility] Hematocrit Auto Volume Fraction (Bld) 28.7 % Low 36.0-45.0 [facility] Comment on above: Order Comment: No: D o not add to previous draw Performed By: #### 0 0121 ####[facility] Hemoglobin mass conc (Bld) 9.1 g/dL Low 12.0-15.0 [facility] Comment on above: Order Comment: No: D o not add to previous draw Performed By: #### 0 0121 ####[facility] [place] [address] IMMATURE GRANS 3.4 % High 0.0-1.0 [facility] Comment on above: Order Comment: No: D o not add to previous draw Performed By: #### 0 0121 ####[facility] Lymphocytes Auto #/vol (Bld) 2.6 10*3/uL Normal 1.2-4.0 [facility] Comment on above: Order Comment: No: D o not add to previous draw Performed By: #### 0 0121 ####[facility] Lymphocytes/100 WBC Auto (Bld) 25.8 % Normal 20.0-45.0 [facility] Comment on above: Order Comment: No: D o not add to previous draw Performed By: #### 0 0121 ####[place] [address] [address] MCH Auto Entitic mass (RBC) 30.4 pg Normal 27.0-33.0 [facility] Comment on above: Order Comment: No: D o not add to previous draw Performed By: #### 0 0121 ####[place] [address] [address] MCHC Auto mass conc (RBC) 31.7 g/dL Low 32.0-35.0 [facility] Comment on above: Order Comment: No: D o not add to previous draw Performed By: #### 0 0121 ####[facility] MCV Auto Entitic volume (RBC) 96.0 fL Normal 82.0-98.0 [facility] Comment on above: Order Comment: No: D o not add to previous draw Performed By: #### 0 0121 ####[address] Monocytes Auto #/vol (Bld) 1.0 10*3/uL Normal 0.1-1.0 [facility] Comment on above: Order Comment: No: D o not add to previous draw Performed By: #### 0 0121 ####[facility] MONOS 10.2 % Normal 5.0-12.0 [facility] Comment on above: Order Comment: No: D o not add to previous draw Performed By: #### 0 0121 ####[facility] [facility].[address] Neutrophils/100 WBC Auto (Bld) 58.1 % Normal 40.0-72.0 [facility] Comment on above: Order Comment: No: D o not add to previous draw Performed By: #### 0 0121 ####[facility] [facility].[address] Nucleated RBC/100 WBC Ratio (Bld) 0 % Normal 0-0 [facility] Comment on above: Order Comment: No: D o not add to previous draw Performed By: #### 0 0121 ####[facility] [facility] [place] [address], [facility] PLAT CNT 447 10*3/uL High 150-400 [facility] Comment on above: Order Comment: No: D o not add to previous draw Performed By: #### 0 0121 ####[facility] [facility].[address] RBC Auto #/vol (Bld) 2.99 10*6/uL Low 3.80-5.00 [facility] Comment on above: Order Comment: No: D o not add to previous draw Performed By: #### 0 0121 ####[facility] WBC Auto #/vol (Bld) 9.87 10*3/uL Normal 4.00-10.60 [facility] Comment on above: Order Comment: No: D o not add to previous draw Performed By: #### 0 0121 ####[facility] [place] [address], [facility] MAGNESIUM BLOODon 07-15-2018 Magnesium mass conc 1.6 mg/dL Low 1.9-2.7 [facility] Comment on above: Order Comment: No: D o not add to previous draw Performed By: #### 0 0121 ####[facility] [place] [address], [facility] PHOSPHORUS BLOODon 8 Phosphate mass conc 3.2 mg/dL Normal 2.5-5.0 [facility] Comment on above: Order Comment: No: D o not add to previous draw Performed By: #### 0 0121 ####[facility] [place] [address], [facility] POC GLUCOSE LABon 07-15-2018 Glucose mass conc 109 mg/dL High 70-100 [facility] Comment on above: Performed By: #### 0 0121 ####[facility] [place] [address], [facility] Glucose mass conc 154 mg/dL High 70-100 [facility] Comment on above: Performed By: #### 0 0121 ####[facility] [place] [address], [facility] Glucose mass conc 156 mg/dL High 70-100 [facility] Comment on above: Performed By: #### 0 0121 ####[facility] [place] [address], [facility] Glucose mass conc 166 mg/dL High 70-100 [facility] Comment on above: Performed By: #### 0 0121 ####[facility] [place] [address], [facility] BASIC METABOLIC PANELon Calcium mass conc 9.6 mg/dL Normal 8.6-10.3 [facility] Comment on above: Order Comment: No: D o not add to previous draw Performed By: #### 0 0121 ####[facility] [place] [address], [facility] Chloride molar conc 105 mmol/L Normal 98-107 [facility] Comment on above: Order Comment: No: D o not add to previous draw Performed By: #### 0 0121 ####[facility] [place] [address], [place] CO2 molar conc 21 mmol/L Normal 21-31 [facility] Comment on above: Order Comment: No: D o not add to previous draw Performed By: #### 0 0121 ####[facility] [place] [address], [facility] Creatinine mass conc 1.16 mg/dL Normal 0.60-1.20 [facility] Comment on above: Order Comment: No: D o not add to previous draw Performed By: #### 0 0121 ####[facility] [facility] [place] [address], [facility] GFR/1.73 sq M predicted among blacks MDRD vol rate/area (S/P/Bld) 54 ml/min/1.73sq m Abnormal >60 [facility] Comment on above: Order Comment: No: D o not add to previous draw Result Comment: Calc ulation may not be valid for patients over 70 years Performed By: #### 0 0121 ####[facility] [facility] [place] [address], [facility] GFR/1.73 sq M predicted among non-blacks MDRD vol rate/area (S/P/Bld) 45 ml/min/1.73sq m Abnormal >60 [facility] Comment on above: Order Comment: No: D o not add to previous draw Result Comment: Calc ulation may not be valid for patients over 70 years Performed By: #### 0 0121 ####[facility] Glucose mass conc 172 mg/dL High 70-100 [facility] Comment on above: Order Comment: No: D o not add to previous draw Performed By: #### 0 0121 ####[facility] [facility].[address] Potassium molar conc 4.9 mmol/L Normal 3.5-5.1 [facility] Comment on above: Order Comment: No: D o not add to previous draw Performed By: #### 0 0121 ####[facility] [facility].[address] Sodium molar conc 132 mmol/L Low 136-145 [facility] Comment on above: Order Comment: No: D o not add to previous draw Performed By: #### 0 0121 ####[facility] [facility].[address] Urea nitrogen mass conc 28 mg/dL High 7-25 [facility] Comment on above: Order Comment: No: D o not add to previous draw Performed By: #### 0 0121 ####[address] CBC W/DIFFon 07-14-2018 ABS BASOPHILS 0.1 10*3/uL Normal 0.0-0.2 [facility] Comment on above: Order Comment: No: D o not add to previous draw Performed By: #### 0 0121 ####[facility] [facility] [facility].[address] ABS NEUTROPHILS 9.2 10*3/uL High 1.6-7.6 [facility] Comment on above: Order Comment: No: D o not add to previous draw Performed By: #### 0 0121 ####[facility] [facility].[address] Basophils Auto #/vol (Bld) 0.9 % Normal 0.0-1.0 [facility] Comment on above: Order Comment: No: D o not add to previous draw Performed By: #### 0 0121 ####[facility] [facility].[address] Eosinophils Auto #/vol (Bld) 0.4 10*3/uL Normal 0.0-0.5 [facility] Comment on above: Order Comment: No: D o not add to previous draw Performed By: #### 0 0121 ####[facility] Eosinophils/100 WBC Auto (Bld) 2.7 % Normal 0.0-6.0 [facility] Comment on above: Order Comment: No: D o not add to previous draw Performed By: #### 0 0121 ####[facility] Erythrocyte distribution width Auto Ratio (RBC) 14.4 % Normal 11.5-15.0 [facility] Comment on above: Order Comment: No: D o not add to previous draw Performed By: #### 0 0121 ####[facility] Hematocrit Auto Volume Fraction (Bld) 30.8 % Low 36.0-45.0 [facility] Comment on above: Order Comment: No: D o not add to previous draw Performed By: #### 0 0121 ####[facility] Hemoglobin mass conc (Bld) 9.7 g/dL Low 12.0-15.0 [facility] Comment on above: Order Comment: No: D o not add to previous draw Performed By: #### 0 0121 ####[facility] [place] [address], [facility] Lymphocytes Auto #/vol (Bld) 2.5 10*3/uL Normal 1.2-4.0 [facility] Comment on above: Order Comment: No: D o not add to previous draw Performed By: #### 0 0121 ####[facility] Lymphocytes/100 WBC Auto (Bld) 18.2 % Low 20.0-45.0 [facility] Comment on above: Order Comment: No: D o not add to previous draw Performed By: #### 0 0121 ####[facility] MCH Auto Entitic mass (RBC) 30.6 pg Normal 27.0-33.0 [facility] Comment on above: Order Comment: No: D o not add to previous draw Performed By: #### 0 0121 ####[facility] MCHC Auto mass conc (RBC) 31.5 g/dL Low 32.0-35.0 [facility] Comment on above: Order Comment: No: D o not add to previous draw Performed By: #### 0 0121 ####[facility] MCV Auto Entitic volume (RBC) 97.2 fL Normal 82.0-98.0 [facility] Comment on above: Order Comment: No: D o not add to previous draw Performed By: #### 0 0121 ####[facility] Monocytes Auto #/vol (Bld) 1.3 10*3/uL High 0.1-1.0 [facility] Comment on above: Order Comment: No: D o not add to previous draw Performed By: #### 0 0121 ####[facility] MONOS 10.0 % Normal 5.0-12.0 [facility] Comment on above: Order Comment: No: D o not add to previous draw Performed By: #### 0 0121 ####[facility] [place] [address], [facility] Neutrophils/100 WBC Auto (Bld) 68.2 % Normal 40.0-72.0 [facility] Comment on above: Order Comment: No: D o not add to previous draw Performed By: #### 0 0121 ####[facility] [facility].[address] NRBC SCAN Present Normal [facility] Comment on above: Order Comment: No: D o not add to previous draw Performed By: #### 0 0121 ####[facility] [facility].[address] Nucleated RBC/100 WBC Ratio (Bld) 0 % Normal 0-0 [facility] Comment on above: Order Comment: No: D o not add to previous draw Performed By: #### 0 0121 ####[facility] [facility].[address] PLAT CNT 509 10*3/uL High 150-400 [facility] Comment on above: Order Comment: No: D o not add to previous draw Performed By: #### 0 0121 ####[facility] [facility].[address] RBC Auto #/vol (Bld) 3.17 10*6/uL Low 3.80-5.00 [facility] Comment on above: Order Comment: No: D o not add to previous draw Performed By: #### 0 0121 ####[facility] [place] [address].[address] WBC Auto #/vol (Bld) 13.48 10*3/uL High 4.00-10.60 [facility] Comment on above: Order Comment: No: D o not add to previous draw Performed By: #### 0 0121 ####[facility] [place] [address], [facility] MAGNESIUM BLOODon 07-14-2018 Magnesium mass conc 2.2 mg/dL Normal 1.9-2.7 [facility] Comment on above: Order Comment: No: D o not add to previous draw Performed By: #### 0 0121 ####[facility] [place] [address], [facility] PHOSPHORUS BLOODon 8 Phosphate mass conc 3.8 mg/dL Normal 2.5-5.0 [facility] Comment on above: Order Comment: No: D o not add to previous draw Performed By: #### 0 0121 ####[facility] [place] [address], [facility] POC GLUCOSE LABon 07-14-2018 Glucose mass conc 169 mg/dL High 70-100 [facility] Comment on above: Performed By: #### 0 0121 ####[facility] [place] [address], [facility] Glucose mass conc 188 mg/dL High 70-100 [facility] Comment on above: Performed By: #### 0 0121 ####[facility] [place] [address], [facility] Glucose mass conc 187 mg/dL High 70-100 [facility] Comment on above: Performed By: #### 0 0121 ####[facility] [place] [address], [facility] Glucose mass conc 123 mg/dL High 70-100 [facility] Comment on above: Performed By: #### 0 0121 ####[facility] [place] [address], [facility] BASIC METABOLIC PANELon Calcium mass conc 9.2 mg/dL Normal 8.6-10.3 [facility] Comment on above: Order Comment: No: D o not add to previous draw Performed By: #### 0 0121 ####[facility] [place] [address], [facility] Chloride molar conc 104 mmol/L Normal 98-107 [facility] Comment on above: Order Comment: No: D o not add to previous draw Performed By: #### 0 0121 ####[facility] [place] [address], [place] CO2 molar conc 22 mmol/L Normal 21-31 [facility] Comment on above: Order Comment: No: D o not add to previous draw Performed By: #### 0 0121 ####[facility] [place] [address], [facility] Creatinine mass conc 1.30 mg/dL High 0.60-1.20 [facility] Comment on above: Order Comment: No: D o not add to previous draw Performed By: #### 0 0121 ####[facility] [place] [address], [facility] GFR/1.73 sq M predicted among blacks MDRD vol rate/area (S/P/Bld) 47 ml/min/1.73sq m Abnormal >60 [facility] Comment on above: Order Comment: No: D o not add to previous draw Result Comment: Calc ulation may not be valid for patients over 70 years Performed By: #### 0 0121 ####[facility] [place] [address], [facility] GFR/1.73 sq M predicted among non-blacks MDRD vol rate/area (S/P/Bld) 39 ml/min/1.73sq m Abnormal >60 [facility] Comment on above: Order Comment: No: D o not add to previous draw Result Comment: Calc ulation may not be valid for patients over 70 years Performed By: #### 0 0121 ####[facility] Glucose mass conc 160 mg/dL High 70-100 [facility] Comment on above: Order Comment: No: D o not add to previous draw Performed By: #### 0 0121 ####[facility] [facility].[address] Potassium molar conc 4.7 mmol/L Normal 3.5-5.1 [facility] Comment on above: Order Comment: No: D o not add to previous draw Performed By: #### 0 0121 ####[facility] [facility].[address] Sodium molar conc 133 mmol/L Low 136-145 [facility] Comment on above: Order Comment: No: D o not add to previous draw Performed By: #### 0 0121 ####[facility] [facility].[address] Urea nitrogen mass conc 32 mg/dL High 7-25 [facility] Comment on above: Order Comment: No: D o not add to previous draw Performed By: #### 0 0121 ####[address] CBC W/DIFFon 07-13-2018 ABS BASOPHILS 0.1 10*3/uL Normal 0.0-0.2 [facility] Comment on above: Order Comment: No: D o not add to previous draw Performed By: #### 0 0121 ####[facility] [facility].[address] ABS NEUTROPHILS 7.1 10*3/uL Normal 1.6-7.6 [facility] Comment on above: Order Comment: No: D o not add to previous draw Performed By: #### 0 0121 ####[facility] [facility].[address] Basophils Auto #/vol (Bld) 1.0 % Normal 0.0-1.0 [facility] Comment on above: Order Comment: No: D o not add to previous draw Performed By: #### 0 0121 ####[facility] Eosinophils Auto #/vol (Bld) 0.1 10*3/uL Normal 0.0-0.5 [facility] Comment on above: Order Comment: No: D o not add to previous draw Performed By: #### 0 0121 ####[facility] [facility].[address] Eosinophils/100 WBC Auto (Bld) 1.0 % Normal 0.0-6.0 [facility] Comment on above: Order Comment: No: D o not add to previous draw Performed By: #### 0 0121 ####[facility] [facility].[address] Erythrocyte distribution width Auto Ratio (RBC) 14.4 % Normal 11.5-15.0 [facility] Comment on above: Order Comment: No: D o not add to previous draw Performed By: #### 0 0121 ####[facility] [facility].[address] Hematocrit Auto Volume Fraction (Bld) 30.2 % Low 36.0-45.0 [facility] Comment on above: Order Comment: No: D o not add to previous draw Performed By: #### 0 0121 ####[facility] [facility].[address] Hemoglobin mass conc (Bld) 9.3 g/dL Low 12.0-15.0 [facility] Comment on above: Order Comment: No: D o not add to previous draw Performed By: #### 0 0121 ####[facility] [place] [address], [facility] Lymphocytes Auto #/vol (Bld) 2.7 10*3/uL Normal 1.2-4.0 [facility] Comment on above: Order Comment: No: D o not add to previous draw Performed By: #### 0 0121 ####[facility] Lymphocytes/100 WBC Auto (Bld) 23.3 % Normal 20.0-45.0 [facility] Comment on above: Order Comment: No: D o not add to previous draw Performed By: #### 0 0121 ####[facility] MCH Auto Entitic mass (RBC) 30.3 pg Normal 27.0-33.0 [facility] Comment on above: Order Comment: No: D o not add to previous draw Performed By: #### 0 0121 ####[facility] MCHC Auto mass conc (RBC) 30.8 g/dL Low 32.0-35.0 [facility] Comment on above: Order Comment: No: D o not add to previous draw Performed By: #### 0 0121 ####[facility] MCV Auto Entitic volume (RBC) 98.4 fL High 82.0-98.0 [facility] Comment on above: Order Comment: No: D o not add to previous draw Performed By: #### 0 0121 ####[facility] METAMYELO 1.9 % High 0.0-0.0 [facility] Comment on above: Order Comment: No: D o not add to previous draw Performed By: #### 0 0121 ####[facility] [place] [address] Monocytes Auto #/vol (Bld) 1.0 10*3/uL Normal 0.1-1.0 [facility] Comment on above: Order Comment: No: D o not add to previous draw Performed By: #### 0 0121 ####[facility] [place] [address], [facility] MONOS 8.7 % Normal 5.0-12.0 [facility] Comment on above: Order Comment: No: D o not add to previous draw Performed By: #### 0 0121 ####[facility] [facility] [place] [address], [facility] MYELOS 3.9 % High .0-.0 [facility] Comment on above: Order Comment: No: D o not add to previous draw Performed By: #### 0 0121 ####[facility] [facility].[address] Neutrophils/100 WBC Auto (Bld) 60.2 % Normal 40.0-72.0 [facility] Comment on above: Order Comment: No: D o not add to previous draw Performed By: #### 0 0121 ####[facility] [facility].[address] Nucleated RBC/100 WBC Ratio (Bld) 0 % Normal 0-0 [facility] Comment on above: Order Comment: No: D o not add to previous draw Performed By: #### 0 0121 ####[facility] [facility] [place] [address], [facility] PLAT CNT 435 10*3/uL High 150-400 [facility] Comment on above: Order Comment: No: D o not add to previous draw Performed By: #### 0 0121 ####[facility] [place] [address], [facility] RBC Auto #/vol (Bld) 3.07 10*6/uL Low 3.80-5.00 [facility] Comment on above: Order Comment: No: D o not add to previous draw Performed By: #### 0 0121 ####[facility] [facility] [place] [address], [facility] WBC Auto #/vol (Bld) 11.73 10*3/uL High 4.00-10.60 [facility] Comment on above: Order Comment: No: D o not add to previous draw Performed By: #### 0 0121 ####[facility] [facility] [place] [address], [facility] MAGNESIUM BLOODon 07-13-2018 Magnesium mass conc 1.8 mg/dL Low 1.9-2.7 [facility] Comment on above: Order Comment: No: D o not add to previous draw Performed By: #### 0 0121 ####[facility] [facility] [place] [address], [facility] PHOSPHORUS BLOODon 8 Phosphate mass conc 3.8 mg/dL Normal 2.5-5.0 [facility] Comment on above: Order Comment: No: D o not add to previous draw Performed By: #### 0 0121 ####[facility] [facility].[address] POC GLUCOSE LABon 07-13-2018 Glucose mass conc 147 mg/dL High 70-100 [facility] Comment on above: Performed By: #### 0 0121 ####[facility] [facility] [place] [address], [facility] Glucose mass conc 188 mg/dL High 70-100 [facility] Comment on above: Performed By: #### 0 0121 ####[facility] [facility] [place] [address], [facility] Glucose mass conc 150 mg/dL High 70-100 [facility] Comment on above: Performed By: #### 0 0121 ####[facility] [facility] [place] [address], [facility] Glucose mass conc 139 mg/dL High 70-100 [facility] Comment on above: Performed By: #### 0 0121 ####[facility] [place] [address], [facility] BASIC METABOLIC PANELon 09-0 Calcium mass conc 9.7 mg/dL Normal 8.6-10.3 [facility] Comment on above: Order Comment: No: D o not add to previous draw Performed By: #### 0 0121 ####[facility] [place] [address], [facility] Chloride molar conc 103 mmol/L Normal 98-107 [facility] Comment on above: Order Comment: No: D o not add to previous draw Performed By: #### 0 0121 ####[facility] [place] [address], [facility] CO2 molar conc 18 mmol/L Low 21-31 [facility] Comment on above: Order Comment: No: D o not add to previous draw Performed By: #### 0 0121 ####[facility] [place] [address], [facility] Creatinine mass conc 1.33 mg/dL High 0.60-1.20 [facility] Comment on above: Order Comment: No: D o not add to previous draw Performed By: #### 0 0121 ####[facility] [address], [facility] GFR/1.73 sq M predicted among blacks MDRD vol rate/area (S/P/Bld) 47 ml/min/1.73sq m Abnormal >60 [facility] Comment on above: Order Comment: No: D o not add to previous draw Result Comment: Calc ulation may not be valid for patients over 70 years Performed By: #### 0 0121 ####[facility] [place] [address], [facility] GFR/1.73 sq M predicted among non-blacks MDRD vol rate/area (S/P/Bld) 39 ml/min/1.73sq m Abnormal >60 [facility] Comment on above: Order Comment: No: D o not add to previous draw Result Comment: Calc ulation may not be valid for patients over 70 years Performed By: #### 0 0121 ####[facility] [facility].[address] Glucose mass conc 133 mg/dL High 70-100 [facility] Comment on above: Order Comment: No: D o not add to previous draw Performed By: #### 0 0121 ####[facility] [facility].[address] Potassium molar conc 5.2 mmol/L High 3.5-5.1 [facility] Comment on above: Order Comment: No: D o not add to previous draw Performed By: #### 0 0121 ####[facility] [facility].[address] Sodium molar conc 131 mmol/L Low 136-145 [facility] Comment on above: Order Comment: No: D o not add to previous draw Performed By: #### 0 0121 ####[facility] [facility].[address] Urea nitrogen mass conc 31 mg/dL High 7-25 [facility] Comment on above: Order Comment: No: D o not add to previous draw Performed By: #### 0 0121 ####[facility] [facility] [place] [address], [facility] CBC W/DIFFon 07-12-2018 ABS BASOPHILS 0.1 10*3/uL Normal 0.0-0.2 [facility] Comment on above: Order Comment: No: D o not add to previous draw Performed By: #### 0 0121 ####[facility] [facility] [place] [address], [place] ABS IMM GRANS 1.2 10*3/uL High 0.0-0.2 [facility] Comment on above: Order Comment: No: D o not add to previous draw Performed By: #### 0 0121 ####[facility] [facility] [place] [address], [facility] ABS NEUTROPHILS 7.2 10*3/uL Normal 1.6-7.6 [facility] Comment on above: Order Comment: No: D o not add to previous draw Performed By: #### 0 0121 ####[facility] [facility] [place] [address], [facility] Basophils Auto #/vol (Bld) 0.5 % Normal 0.0-1.0 [facility] Comment on above: Order Comment: No: D o not add to previous draw Performed By: #### 0 0121 ####[facility] [facility] [place] [address], [facility] Eosinophils Auto #/vol (Bld) 0.3 10*3/uL Normal 0.0-0.5 [facility] Comment on above: Order Comment: No: D o not add to previous draw Performed By: #### 0 0121 ####[facility] [facility].[address] Eosinophils/100 WBC Auto (Bld) 2.3 % Normal 0.0-6.0 [facility] Comment on above: Order Comment: No: D o not add to previous draw Performed By: #### 0 0121 ####[facility] [facility].[address] Erythrocyte distribution width Auto Ratio (RBC) 14.2 % Normal 11.5-15.0 [facility] Comment on above: Order Comment: No: D o not add to previous draw Performed By: #### 0 0121 ####[facility] Hematocrit Auto Volume Fraction (Bld) 36.0 % Normal 36.0-45.0 [facility] Comment on above: Order Comment: No: D o not add to previous draw Performed By: #### 0 0121 ####[facility] [facility].[address] Hemoglobin mass conc (Bld) 11.2 g/dL Low 12.0-15.0 [facility] Comment on above: Order Comment: No: D o not add to previous draw Performed By: #### 0 0121 ####[facility] IMM PLATELET FRAC 2.2 % Normal 0.8-6.3 [facility] Comment on above: Order Comment: No: D o not add to previous draw Performed By: #### 0 0121 ####[facility] IMMATURE GRANS 9.1 % High 0.0-1.0 [facility] Comment on above: Order Comment: No: D o not add to previous draw Performed By: #### 0 0121 ####[facility] Lymphocytes Auto #/vol (Bld) 3.0 10*3/uL Normal 1.2-4.0 [facility] Comment on above: Order Comment: No: D o not add to previous draw Performed By: #### 0 0121 ####[facility] [facility].[address] Lymphocytes/100 WBC Auto (Bld) 22.3 % Normal 20.0-45.0 [facility] Comment on above: Order Comment: No: D o not add to previous draw Performed By: #### 0 0121 ####[facility] MCH Auto Entitic mass (RBC) 30.9 pg Normal 27.0-33.0 [facility] Comment on above: Order Comment: No: D o not add to previous draw Performed By: #### 0 0121 ####[facility] MCHC Auto mass conc (RBC) 31.1 g/dL Low 32.0-35.0 [facility] Comment on above: Order Comment: No: D o not add to previous draw Performed By: #### 0 0121 ####[facility] MCV Auto Entitic volume (RBC) 99.4 fL High 82.0-98.0 [facility] Comment on above: Order Comment: No: D o not add to previous draw Performed By: #### 0 0121 ####[facility] Monocytes Auto #/vol (Bld) 1.5 10*3/uL High 0.1-1.0 [facility] Comment on above: Order Comment: No: D o not add to previous draw Performed By: #### 0 0121 ####[facility] MONOS 11.3 % Normal 5.0-12.0 [facility] Comment on above: Order Comment: No: D o not add to previous draw Performed By: #### 0 0121 ####[facility] Neutrophils/100 WBC Auto (Bld) 54.5 % Normal 40.0-72.0 [facility] Comment on above: Order Comment: No: D o not add to previous draw Performed By: #### 0 0121 ####[facility] Nucleated RBC/100 WBC Ratio (Bld) 0 % Normal 0-0 [facility] Comment on above: Order Comment: No: D o not add to previous draw Performed By: #### 0 0121 ####[facility] [address], [facility] PLAT CNT 425 10*3/uL High 150-400 [facility] Comment on above: Order Comment: No: D o not add to previous draw Performed By: #### 0 0121 ####[facility] RBC Auto #/vol (Bld) 3.62 10*6/uL Low 3.80-5.00 [facility] Comment on above: Order Comment: No: D o not add to previous draw Performed By: #### 0 0121 ####[facility] [facility] [place] [address], [facility] WBC Auto #/vol (Bld) 13.29 10*3/uL High 4.00-10.60 [facility] Comment on above: Order Comment: No: D o not add to previous draw Performed By: #### 0 0121 ####[facility] [facility].[address] MAGNESIUM BLOODon 07-12-2018 Magnesium mass conc 2.1 mg/dL Normal 1.9-2.7 [facility] Comment on above: Order Comment: No: D o not add to previous draw Performed By: #### 0 0121 ####[facility] [facility] [place] [address], [facility] PHOSPHORUS BLOODon 8 Phosphate mass conc 4.6 mg/dL Normal 2.5-5.0 [facility] Comment on above: Order Comment: No: D o not add to previous draw Performed By: #### 0 0121 ####[facility] POC GLUCOSE LABon 07-12-2018 Glucose mass conc 145 mg/dL High 70-100 [facility] Comment on above: Performed By: #### 0 0121 ####[facility] [place] [address], [facility] Glucose mass conc 184 mg/dL High 70-100 [facility] Comment on above: Performed By: #### 0 0121 ####[facility] [facility] [place] [address], [facility] Glucose mass conc 134 mg/dL High 70-100 [facility] Comment on above: Performed By: #### 0 0121 ####[facility] [place] [address], [facility] Glucose mass conc 168 mg/dL High 70-100 [facility] Comment on above: Performed By: #### 0 0121 ####[facility] [place] [address], [facility] ABDOMEN SERIES W CHESTon ABDOMEN SERIES W CHEST [facility] Hpqkt[address] [place] [address] Stacy ent Name: VIDHYA GIORDANO : 1940Sex: FAge: Race: WhiteMRN: [id number]. Location: [id number] Status: IVisit #: [id number] Date: 07/11/2018 11:25:00 AMCompleted Date: 07/11/2018 01:43 PMRequesting Provider: ROSIBEL PERRY Attending Provider: MEG ABEBE Report Copy To: Signs & Symptoms: Post OPHistory: Patient history not availableComments: R/O ObstructionExam: ABDOMEN SERIES W CHESTAccession #: [id number] ===ABDOMEN SERIES W CHEST 07/11/2018 1:43 PM [...] obstruction. Electronically signed by:Nora Sethi. Transcribed by: [id number], User Resident: Electronically Signed by: NORA SETHI @ 07/12/2018 07:26 AM Normal [facility] Comment on above: Order Comment: R/O O bstruction BASIC METABOLIC PANELon Calcium mass conc 10.2 mg/dL Normal 8.6-10.3 [facility] Comment on above: Order Comment: No: D o not add to previous draw Performed By: #### 0 0121 ####[facility] [facility] [place] [address], [facility] Chloride molar conc 102 mmol/L Normal 98-107 [facility] Comment on above: Order Comment: No: D o not add to previous draw Performed By: #### 0 0121 ####[facility] [place] [address], [facility] CO2 molar conc 21 mmol/L Normal 21-31 [facility] Comment on above: Order Comment: No: D o not add to previous draw Performed By: #### 0 0121 ####[facility] [place] [address], [facility] Creatinine mass conc 1.30 mg/dL High 0.60-1.20 [facility] Comment on above: Order Comment: No: D o not add to previous draw Performed By: #### 0 0121 ####[facility] [place] [address], [facility] GFR/1.73 sq M predicted among blacks MDRD vol rate/area (S/P/Bld) 47 ml/min/1.73sq m Abnormal >60 [facility] Comment on above: Order Comment: No: D o not add to previous draw Result Comment: Calc ulation may not be valid for patients over 70 years Performed By: #### 0 0121 ####[facility] [facility] [place] [address], [facility] GFR/1.73 sq M predicted among non-blacks MDRD vol rate/area (S/P/Bld) 39 ml/min/1.73sq m Abnormal >60 [facility] Comment on above: Order Comment: No: D o not add to previous draw Result Comment: Calc ulation may not be valid for patients over 70 years Performed By: #### 0 0121 ####[facility] [facility] [place] [address], [facility] Glucose mass conc 162 mg/dL High 70-100 [facility] Comment on above: Order Comment: No: D o not add to previous draw Performed By: #### 0 0121 ####[facility] [facility] [place] [address], [facility] Potassium molar conc 5.6 mmol/L High 3.5-5.1 [facility] Comment on above: Order Comment: No: D o not add to previous draw Performed By: #### 0 0121 ####[facility] [facility] [place] [address], [facility] Sodium molar conc 132 mmol/L Low 136-145 [facility] Comment on above: Order Comment: No: D o not add to previous draw Performed By: #### 0 0121 ####[facility] Urea nitrogen mass conc 29 mg/dL High 7-25 [facility] Comment on above: Order Comment: No: D o not add to previous draw Performed By: #### 0 0121 ####[facility] CBC COMPLETE BLOOD COUNTon 0 07-11-2018 Erythrocyte distribution width Auto Ratio (RBC) 14.1 % Normal 11.5-15.0 [facility] Comment on above: Order Comment: This order is a replacement of the rejected order with accession [id number]. Performed By: #### 0 0121 ####[place] [address] Hematocrit Auto Volume Fraction (Bld) 33.4 % Low 36.0-45.0 [facility] Comment on above: Order Comment: This order is a replacement of the rejected order with accession [id number]. Performed By: #### 0 0121 ####[place] [address] Hemoglobin mass conc (Bld) 10.5 g/dL Low 12.0-15.0 [facility] Comment on above: Order Comment: This order is a replacement of the rejected order with accession [id number]. Performed By: #### 0 0121 ####[facility] MCH Auto Entitic mass (RBC) 30.3 pg Normal 27.0-33.0 [facility] Comment on above: Order Comment: This order is a replacement of the rejected order with accession [id number]. Performed By: #### 0 0121 ####[facility] MCHC Auto mass conc (RBC) 31.4 g/dL Low 32.0-35.0 [facility] Comment on above: Order Comment: This order is a replacement of the rejected order with accession [id number]. Performed By: #### 0 0121 ####[facility] MCV Auto Entitic volume (RBC) 96.5 fL Normal 82.0-98.0 [facility] Comment on above: Order Comment: This order is a replacement of the rejected order with accession [id number]. Performed By: #### 0 0121 ####[place] [address] Nucleated RBC/100 WBC Ratio (Bld) 0 % Normal 0-0 [facility] Comment on above: Order Comment: This order is a replacement of the rejected order with accession [id number]. Performed By: #### 0 0121 ####[facility] PLAT CNT 527 10*3/uL High 150-400 [facility] Comment on above: Order Comment: This order is a replacement of the rejected order with accession [id number]. Performed By: #### 0 0121 ####[place] [address] RBC Auto #/vol (Bld) 3.46 10*6/uL Low 3.80-5.00 [facility] Comment on above: Order Comment: This order is a replacement of the rejected order with accession [id number]. Performed By: #### 0 0121 ####[facility] WBC Auto #/vol (Bld) 15.56 10*3/uL High 4.00-10.60 [facility] Comment on above: Order Comment: This order is a replacement of the rejected order with accession [id number]. Performed By: #### 0 0121 ####[facility] [facility] [place] [address], [facility] MAGNESIUM BLOODon 07-11-2018 Magnesium mass conc 1.7 mg/dL Low 1.9-2.7 [facility] Comment on above: Order Comment: No: D o not add to previous draw Performed By: #### 0 0121 ####[facility] [facility] [place] [address], [facility] PHOSPHORUS BLOODon 8 Phosphate mass conc 4.6 mg/dL Normal 2.5-5.0 [facility] Comment on above: Order Comment: No: D o not add to previous draw Performed By: #### 0 0121 ####[facility] [facility] [place] [address], [facility] POC GLUCOSE LABon 07-11-2018 Glucose mass conc 158 mg/dL High 70-100 [facility] Comment on above: Performed By: #### 0 0121 ####[facility] [facility].[address] Glucose mass conc 204 mg/dL High 70-100 [facility] Comment on above: Performed By: #### 0 0121 ####[facility] [facility] [place] [address], [facility] Glucose mass conc 186 mg/dL High 70-100 [facility] Comment on above: Performed By: #### 0 0121 ####[facility] [facility].[address] *BLOOD CULTUREon 07-10-2018 Bacteria identified in Blood by Culture Clinical Report: (D) Specimen: BLOOD CULTURE Collected: 07/10/2018 11:19 Status: Final Last Updated: 07/16/2018 06:46 CULT RES (Final) No Growth Day 5 Normal [facility] Comment on above: Performed By: #### 0 0121 ####[facility] [place] [address], [facility] BASIC METABOLIC PANELon 09-0 Calcium mass conc 9.9 mg/dL Normal 8.6-10.3 [facility] Comment on above: Order Comment: No: D o not add to previous draw Performed By: #### 0 0121 ####[facility] [place] [address], [facility] Chloride molar conc 101 mmol/L Normal 98-107 [facility] Comment on above: Order Comment: No: D o not add to previous draw Performed By: #### 0 0121 ####[facility] [place] [address], [facility] CO2 molar conc 22 mmol/L Normal 21-31 [facility] Comment on above: Order Comment: No: D o not add to previous draw Performed By: #### 0 0121 ####[facility] [place] [address], [facility] Creatinine mass conc 1.18 mg/dL Normal 0.60-1.20 [facility] Comment on above: Order Comment: No: D o not add to previous draw Performed By: #### 0 0121 ####[facility] [place] [address], [facility] GFR/1.73 sq M predicted among blacks MDRD vol rate/area (S/P/Bld) 53 ml/min/1.73sq m Abnormal >60 [facility] Comment on above: Order Comment: No: D o not add to previous draw Result Comment: Calc ulation may not be valid for patients over 70 years Performed By: #### 0 0121 ####[facility] [place] [address], [facility] GFR/1.73 sq M predicted among non-blacks MDRD vol rate/area (S/P/Bld) 45 ml/min/1.73sq m Abnormal >60 [facility] Comment on above: Order Comment: No: D o not add to previous draw Result Comment: Calc ulation may not be valid for patients over 70 years Performed By: #### 0 0121 ####[facility] Glucose mass conc 212 mg/dL High 70-100 [facility] Comment on above: Order Comment: No: D o not add to previous draw Performed By: #### 0 0121 ####[facility] Potassium molar conc 5.1 mmol/L Normal 3.5-5.1 [facility] Comment on above: Order Comment: No: D o not add to previous draw Performed By: #### 0 0121 ####[facility] Sodium molar conc 132 mmol/L Low 136-145 [facility] Comment on above: Order Comment: No: D o not add to previous draw Performed By: #### 0 0121 ####[facility] Urea nitrogen mass conc 28 mg/dL High 7-25 [facility] Comment on above: Order Comment: No: D o not add to previous draw Performed By: #### 0 0121 ####[facility] CBC W/DIFFon 07-10-2018 ABS BASOPHILS 0.2 10*3/uL Normal 0.0-0.2 [facility] Comment on above: Order Comment: No: D o not add to previous draw Performed By: #### 0 0121 ####[facility] ABS IMM GRANS 2.1 10*3/uL High 0.0-0.2 [facility] Comment on above: Order Comment: No: D o not add to previous draw Performed By: #### 0 0121 ####[facility] [facility] [place] [address], [facility] ABS NEUTROPHILS 13.5 10*3/uL High 1.6-7.6 [facility] Comment on above: Order Comment: No: D o not add to previous draw Performed By: #### 0 0121 ####[facility] [facility] [place] [address], [facility] Basophils Auto #/vol (Bld) 1.0 % Normal 0.0-1.0 [facility] Comment on above: Order Comment: No: D o not add to previous draw Performed By: #### 0 0121 ####[facility] [place] [address], [facility] Eosinophils Auto #/vol (Bld) 0.2 10*3/uL Normal 0.0-0.5 [facility] Comment on above: Order Comment: No: D o not add to previous draw Performed By: #### 0 0121 ####[facility] [place] [address], [facility] Eosinophils/100 WBC Auto (Bld) 1.0 % Normal 0.0-6.0 [facility] Comment on above: Order Comment: No: D o not add to previous draw Performed By: #### 0 0121 ####[facility] [facility].[address] Erythrocyte distribution width Auto Ratio (RBC) 13.9 % Normal 11.5-15.0 [facility] Comment on above: Order Comment: No: D o not add to previous draw Performed By: #### 0 0121 ####[facility] Hematocrit Auto Volume Fraction (Bld) 32.3 % Low 36.0-45.0 [facility] Comment on above: Order Comment: No: D o not add to previous draw Performed By: #### 0 0121 ####[facility] Hemoglobin mass conc (Bld) 10.4 g/dL Low 12.0-15.0 [facility] Comment on above: Order Comment: No: D o not add to previous draw Performed By: #### 0 0121 ####[facility] Lymphocytes Auto #/vol (Bld) 2.8 10*3/uL Normal 1.2-4.0 [facility] Comment on above: Order Comment: No: D o not add to previous draw Performed By: #### 0 0121 ####[facility] Lymphocytes/100 WBC Auto (Bld) 15.0 % Low 20.0-45.0 [facility] Comment on above: Order Comment: No: D o not add to previous draw Performed By: #### 0 0121 ####[facility] MCH Auto Entitic mass (RBC) 30.6 pg Normal 27.0-33.0 [facility] Comment on above: Order Comment: No: D o not add to previous draw Performed By: #### 0 0121 ####[facility] [place] [address] MCHC Auto mass conc (RBC) 32.2 g/dL Normal 32.0-35.0 [facility] Comment on above: Order Comment: No: D o not add to previous draw Performed By: #### 0 0121 ####[place] [address] MCV Auto Entitic volume (RBC) 95.0 fL Normal 82.0-98.0 [facility] Comment on above: Order Comment: No: D o not add to previous draw Performed By: #### 0 0121 ####[facility] [facility] [place] [address], [facility] METAMYELO 4.0 % High 0.0-0.0 [facility] Comment on above: Order Comment: No: D o not add to previous draw Performed By: #### 0 0121 ####[facility] [facility] [place] [address], [facility] Monocytes Auto #/vol (Bld) 0.9 10*3/uL Normal 0.1-1.0 [facility] Comment on above: Order Comment: No: D o not add to previous draw Performed By: #### 0 0121 ####[facility] [facility] [place] [address], [facility] MONOS 5.0 % Normal 5.0-12.0 [facility] Comment on above: Order Comment: No: D o not add to previous draw Performed By: #### 0 0121 ####[facility] [facility] [place] [address], [facility] MYELOS 2.0 % High .0-.0 [facility] Comment on above: Order Comment: No: D o not add to previous draw Performed By: #### 0 0121 ####[facility] [facility] [place] [address], [facility] Neutrophils/100 WBC Auto (Bld) 72.0 % Normal 40.0-72.0 [facility] Comment on above: Order Comment: No: D o not add to previous draw Performed By: #### 0 0121 ####[facility] [facility] [place] [address], [facility] Nucleated RBC/100 WBC Ratio (Bld) 0 % Normal 0-0 [facility] Comment on above: Order Comment: No: D o not add to previous draw Performed By: #### 0 0121 ####[facility] PLAT CNT 530 10*3/uL High 150-400 [facility] Comment on above: Order Comment: No: D o not add to previous draw Performed By: #### 0 0121 ####[facility] RBC Auto #/vol (Bld) 3.40 10*6/uL Low 3.80-5.00 [facility] Comment on above: Order Comment: No: D o not add to previous draw Performed By: #### 0 0121 ####[facility] WBC Auto #/vol (Bld) 18.70 10*3/uL High 4.00-10.60 [facility] Comment on above: Order Comment: No: D o not add to previous draw Performed By: #### 0 0121 ####[address] ABDOMEN AND PELVIS WO CON TRASTon 07-10-2018 CT ABDOMEN AND PELVIS WO CONTRAST [facility] Pcsgaqnfd[address] [place] [address] Stacy ent Name: VIDHYA GIORDANO : 1940Sex: FAge: Race: WhiteMRN: [id number]. Location: [id number] Status: IVisit #: [id number] Date: 07/10/2018 11:10:00 AMCompleted Date: 07/10/2018 02:44 PMRequesting Provider: MEG ABEBE Attending Provider: MEG ABEBE Report Copy To: Signs & Symptoms: AbscessHistory: Patient history not availableComments: Other, leukocytosis. need oral contrastExam: CT ABDOMEN AND PELVIS WO CONTRASTAccession #: [id number] ===CT ABDOMEN AND PELVIS WO CONTRAST 07/10/2018 [...] findings. Electronically signed by:Rhoda Nicole. Transcribed by: [email or web address], User Resident: WU TURNERElectronically Signed by: RHODA NICOLE @ 07/12/2018 10:55 AMI personally read this/these film(s) with this resident Normal [facility] Comment on above: Order Comment: Other , leukocytosis. need oral contrast MAGNESIUM BLOODon 07-10-2018 Magnesium mass conc 1.8 mg/dL Low 1.9-2.7 [facility] Comment on above: Order Comment: No: D o not add to previous draw Performed By: #### 0 0121 ####[facility] PHOSPHORUS BLOODon 8 Phosphate mass conc 4.4 mg/dL Normal 2.5-5.0 [facility] Comment on above: Order Comment: No: D o not add to previous draw Performed By: #### 0 0121 ####[facility] [place] [address], [facility] POC GLUCOSE LABon 07-10-2018 Glucose mass conc 183 mg/dL High 70-100 [facility] Comment on above: Performed By: #### 0 0121 ####[facility] [facility] [place] [address], [facility] Glucose mass conc 195 mg/dL High 70-100 [facility] Comment on above: Performed By: #### 0 0121 ####[facility] [facility] [place] [address], [facility] Glucose mass conc 246 mg/dL High 70-100 [facility] Comment on above: Performed By: #### 0 0121 ####[facility] [facility] [place] [address], [facility] Glucose mass conc 187 mg/dL High 70-100 [facility] Comment on above: Performed By: #### 0 0121 ####[facility] [facility].[address] *BLOOD CULTUREon 07-09-2018 Bacteria identified in Blood by Culture Clinical Report: (D) Specimen: BLOOD CULTURE Collected: 07/09/2018 17:53 Status: Final Last Updated: 07/15/2018 07:43 CULT RES (Final) No Growth Day 5 Normal [facility] Comment on above: Performed By: #### 0 0121 ####[facility] [facility].[address] BASIC METABOLIC PANELon Calcium mass conc 9.2 mg/dL Normal 8.6-10.3 [facility] Comment on above: Order Comment: No: D o not add to previous draw Performed By: #### 0 0121 ####[facility] Chloride molar conc 102 mmol/L Normal 98-107 [facility] Comment on above: Order Comment: No: D o not add to previous draw Performed By: #### 0 0121 ####[facility] [place] [address], [facility] CO2 molar conc 25 mmol/L Normal 21-31 [facility] Comment on above: Order Comment: No: D o not add to previous draw Performed By: #### 0 0121 ####[facility] [place] [address], [facility] Creatinine mass conc 0.95 mg/dL Normal 0.60-1.20 [facility] Comment on above: Order Comment: No: D o not add to previous draw Performed By: #### 0 0121 ####[facility] [place] [address], [facility] GFR/1.73 sq M predicted among blacks MDRD vol rate/area (S/P/Bld) mL/min/{1.73_m2} Normal >60 [facility] Comment on above: Order Comment: No: D o not add to previous draw Result Comment: Calc ulation may not be valid for patients over 70 years Performed By: #### 0 0121 ####[facility] [facility] [place] [address], [facility] GFR/1.73 sq M predicted among non-blacks MDRD vol rate/area (S/P/Bld) 56 ml/min/1.73sq m Abnormal >60 [facility] Comment on above: Order Comment: No: D o not add to previous draw Result Comment: Calc ulation may not be valid for patients over 70 years Performed By: #### 0 0121 ####[facility] [place] [address], [facility] Glucose mass conc 178 mg/dL High 70-100 [facility] Comment on above: Order Comment: No: D o not add to previous draw Performed By: #### 0 0121 ####[facility] [place] [address], [facility] Potassium molar conc 4.5 mmol/L Normal 3.5-5.1 [facility] Comment on above: Order Comment: No: D o not add to previous draw Performed By: #### 0 0121 ####[facility] Sodium molar conc 131 mmol/L Low 136-145 [facility] Comment on above: Order Comment: No: D o not add to previous draw Performed By: #### 0 0121 ####[facility] [place] [address] Urea nitrogen mass conc 28 mg/dL High 7-25 The [facility] Comment on above: Order Comment: No: D o not add to previous draw Performed By: #### 0 0121 ####[place] [id number] [address] CBC W/DIFFon 07-09-2018 ABS BASOPHILS 0.0 10*3/uL Normal 0.0-0.2 [facility] Comment on above: Order Comment: No: D o not add to previous draw Performed By: #### 0 0121 ####[place] [id number] [address] ABS NEUTROPHILS 12.4 10*3/uL High 1.6-7.6 [facility] Comment on above: Order Comment: No: D o not add to previous draw Performed By: #### 0 0121 ####[facility] Basophils Auto #/vol (Bld) 0.0 % Normal 0.0-1.0 [facility] Comment on above: Order Comment: No: D o not add to previous draw Performed By: #### 0 0121 ####[facility] Eosinophils Auto #/vol (Bld) 0.3 10*3/uL Normal 0.0-0.5 [facility] Comment on above: Order Comment: No: D o not add to previous draw Performed By: #### 0 0121 ####[facility] Eosinophils/100 WBC Auto (Bld) 1.8 % Normal 0.0-6.0 [facility] Comment on above: Order Comment: No: D o not add to previous draw Performed By: #### 0 0121 ####[facility] Erythrocyte distribution width Auto Ratio (RBC) 14.0 % Normal 11.5-15.0 [facility] Comment on above: Order Comment: No: D o not add to previous draw Performed By: #### 0 0121 ####[facility] GIANT PLATELETS Present Normal [facility] Comment on above: Order Comment: No: D o not add to previous draw Performed By: #### 0 0121 ####[facility] Hematocrit Auto Volume Fraction (Bld) 30.0 % Low 36.0-45.0 [facility] Comment on above: Order Comment: No: D o not add to previous draw Performed By: #### 0 0121 ####[facility] [facility].[address] Hemoglobin mass conc (Bld) 9.6 g/dL Low 12.0-15.0 [facility] Comment on above: Order Comment: No: D o not add to previous draw Performed By: #### 0 0121 ####[facility] Lymphocytes Auto #/vol (Bld) 3.1 10*3/uL Normal 1.2-4.0 [facility] Comment on above: Order Comment: No: D o not add to previous draw Performed By: #### 0 0121 ####[facility] Lymphocytes/100 WBC Auto (Bld) 17.4 % Low 20.0-45.0 [facility] Comment on above: Order Comment: No: D o not add to previous draw Performed By: #### 0 0121 ####[facility] MCH Auto Entitic mass (RBC) 30.6 pg Normal 27.0-33.0 [facility] Comment on above: Order Comment: No: D o not add to previous draw Performed By: #### 0 0121 ####[facility] MCHC Auto mass conc (RBC) 32.0 g/dL Normal 32.0-35.0 [facility] Comment on above: Order Comment: No: D o not add to previous draw Performed By: #### 0 0121 ####[facility] MCV Auto Entitic volume (RBC) 95.5 fL Normal 82.0-98.0 [facility] Comment on above: Order Comment: No: D o not add to previous draw Performed By: #### 0 0121 ####[facility] METAMYELO 1.8 % High 0.0-0.0 [facility] Comment on above: Order Comment: No: D o not add to previous draw Performed By: #### 0 0121 ####[address] Monocytes Auto #/vol (Bld) 1.3 10*3/uL High 0.1-1.0 [facility] Comment on above: Order Comment: No: D o not add to previous draw Performed By: #### 0 0121 ####[facility] [place] [address], [facility] MONOS 7.4 % Normal 5.0-12.0 [facility] Comment on above: Order Comment: No: D o not add to previous draw Performed By: #### 0 0121 ####[facility] [place] [address], [facility] MYELOS 0.9 % High .0-.0 [facility] Comment on above: Order Comment: No: D o not add to previous draw Performed By: #### 0 0121 ####[facility] [place] [address], [facility] Neutrophils/100 WBC Auto (Bld) 70.7 % Normal 40.0-72.0 [facility] Comment on above: Order Comment: No: D o not add to previous draw Performed By: #### 0 0121 ####[facility] NRBC SCAN Present Normal [facility] Comment on above: Order Comment: No: D o not add to previous draw Performed By: #### 0 0121 ####[facility] [place] [address], [facility] Nucleated RBC/100 WBC Ratio (Bld) 0 % Normal 0-0 [facility] Comment on above: Order Comment: No: D o not add to previous draw Performed By: #### 0 0121 ####[facility] [place] [address], [facility] PLAT CNT 430 10*3/uL High 150-400 [facility] Comment on above: Order Comment: No: D o not add to previous draw Performed By: #### 0 0121 ####[facility] [place] [address], [facility] RBC Auto #/vol (Bld) 3.14 10*6/uL Low 3.80-5.00 [facility] Comment on above: Order Comment: No: D o not add to previous draw Performed By: #### 0 0121 ####[facility] [facility].[address] WBC Auto #/vol (Bld) 17.58 10*3/uL High 4.00-10.60 [facility] Comment on above: Order Comment: No: D o not add to previous draw Performed By: #### 0 0121 ####[facility] [facility] [place] [address], [facility] MAGNESIUM BLOODon 07-09-2018 Magnesium mass conc 1.8 mg/dL Low 1.9-2.7 [facility] Comment on above: Order Comment: No: D o not add to previous draw Performed By: #### 0 0121 ####[facility] [facility] [place] [address], [facility] PHOSPHORUS BLOODon 8 Phosphate mass conc 4.1 mg/dL Normal 2.5-5.0 [facility] Comment on above: Order Comment: No: D o not add to previous draw Performed By: #### 0 0121 ####[facility] [facility].[address] POC GLUCOSE LABon 07-09-2018 Glucose mass conc 172 mg/dL High 70-100 [facility] Comment on above: Performed By: #### 0 0121 ####[facility] [facility] [place] [address], [facility] Glucose mass conc 179 mg/dL High 70-100 [facility] Comment on above: Performed By: #### 0 0121 ####[facility] [facility] [place] [address], [facility] Glucose mass conc 168 mg/dL High 70-100 [facility] Comment on above: Performed By: #### 0 0121 ####[facility] [place] [address], [facility] Glucose mass conc 147 mg/dL High 70-100 [facility] Comment on above: Performed By: #### 0 0121 ####[facility] [place] [address], [facility] PORTABLE CHEST 1 VIEWon PORTABLE CHEST 1 VIEW [facility] Avbrealwf[address] [place] [address] Stacy ent Name: VIDHYA GIORDANO : 1940Sex: FAge: Race: WhiteMRN: [id number]. Location: [id number] Status: IVisit #: [id number] Date: 07/09/2018 5:25:00 PMCompleted Date: 07/09/2018 06:13 PMRequesting Provider: MARLIN DELGADO Attending Provider: MEG ABEBE Report Copy To: Signs & Symptoms: Elevated WBCHistory: Patient history not availableComments: R/O PneumoniaExam: PORTABLE CHEST 1 VIEWAccession #: [id number] ===PORTABLE CHEST 1 VIEW 07/09/2018 6:13 PM [...] findings. Electronically signed by:Rhoda Nicole. Transcribed by: [email or web address], User Resident: WU TURNERElectronically Signed by: RHODA NICOLE @ 07/10/2018 12:40 PMI personally read this/these film(s) with this resident Normal [facility] Comment on above: Order Comment: R/O P neumonia URINALYSIS REFLEXon 07-09-20 18 APPEARANCE CLEAR Normal CLEAR [facility] Comment on above: Order Comment: No: D o not add to previous drawCriteria for reflexing a culture was not met. Please call the lab [phone] within 24 hours of collection time if culture is needed Performed By: #### 0 0121 ####[facility] [facility] [place] [address], [facility] BILIRUBIN Negative Normal NEGATIVE [facility] Comment on above: Order Comment: No: D o not add to previous drawCriteria for reflexing a culture was not met. Please call the lab [id number] within 24 hours of collection time if culture is needed Performed By: #### 0 0121 ####[facility] [place] [address], [place] BLOOD Negative Normal NEGATIVE [facility] Comment on above: Order Comment: No: D o not add to previous drawCriteria for reflexing a culture was not met. Please call the lab [id number] within 24 hours of collection time if culture is needed Performed By: #### 0 0121 ####[facility] [place] [address], [place] COLOR YELLOW Normal YELLOW [facility] Comment on above: Order Comment: No: D o not add to previous drawCriteria for reflexing a culture was not met. Please call the lab [phone] within 24 hours of collection time if culture is needed Performed By: #### 0 0121 ####[facility] [place] [address], [place] GLUCOSE Negative Normal NEGATIVE [facility] Comment on above: Order Comment: No: D o not add to previous drawCriteria for reflexing a culture was not met. Please call the lab [id number] within 24 hours of collection time if culture is needed Performed By: #### 0 0121 ####[facility] [place] [address], [facility] KETONE Negative Normal NEGATIVE [facility] Comment on above: Order Comment: No: D o not add to previous drawCriteria for reflexing a culture was not met. Please call the lab [id number] within 24 hours of collection time if culture is needed Performed By: #### 0 0121 ####[facility] [place] [address], [place] Negative Normal NEGATIVE [facility] Comment on above: Order Comment: No: D o not add to previous drawCriteria for reflexing a culture was not met. Please call the lab [id number] within 24 hours of collection time if culture is needed Performed By: #### 0 0121 ####[facility] [place] [address], [place] MICRO NOT DONE negative chemical reactions unless requested in original order Normal [facility] Comment on above: Order Comment: No: D o not add to previous drawCriteria for reflexing a culture was not met. Please call the lab [phone] within 24 hours of collection time if culture is needed Performed By: #### 0 0121 ####[facility] [address], [place] NITRITE Negative Normal NEGATIVE [facility] Comment on above: Order Comment: No: D o not add to previous drawCriteria for reflexing a culture was not met. Please call the lab [id number] within 24 hours of collection time if culture is needed Performed By: #### 0 0121 ####[facility] [place] [address], [facility] PH 5.0 Normal 5.0-8.0 [facility] Comment on above: Order Comment: No: D o not add to previous drawCriteria for reflexing a culture was not met. Please call the lab [id number] within 24 hours of collection time if culture is needed Performed By: #### 0 0121 ####[facility] [place] [address], [facility] Protein mass conc Negative Normal NEGATIVE [facility] Comment on above: Order Comment: No: D o not add to previous drawCriteria for reflexing a culture was not met. Please call the lab [id number] within 24 hours of collection time if culture is needed Performed By: #### 0 0121 ####[facility] [place] [address], [facility] SPEC GRAV 1.009 Low 1.015-1.020 [facility] Comment on above: Order Comment: No: D o not add to previous drawCriteria for reflexing a culture was not met. Please call the lab [phone] within 24 hours of collection time if culture is needed Performed By: #### 0 0121 ####[facility] [facility] [place] [address], [facility] BASIC METABOLIC PANELon 08-3 Calcium mass conc 9.2 mg/dL Normal 8.6-10.3 [facility] Comment on above: Order Comment: No: D o not add to previous drawNo collection time noted on specimen or requisition. The collection timerecorded is the time of receipt in the lab. Performed By: #### 1 0070, 53306, 35659 ####[facility] [facility] [place] [address], [facility] Chloride molar conc 100 mmol/L Normal 98-107 [facility] Comment on above: Order Comment: No: D o not add to previous drawNo collection time noted on specimen or requisition. The collection timerecorded is the time of receipt in the lab. Performed By: #### 1 0070, 50648, 85899 ####[facility] [facility] [place] [address], [facility] CO2 molar conc 26 mmol/L Normal 21-31 [facility] Comment on above: Order Comment: No: D o not add to previous drawNo collection time noted on specimen or requisition. The collection timerecorded is the time of receipt in the lab. Performed By: #### 1 0070, 93130, 73073 ####[facility] [place] [address], [facility] Creatinine mass conc 0.92 mg/dL Normal 0.60-1.20 [facility] Comment on above: Order Comment: No: D o not add to previous drawNo collection time noted on specimen or requisition. The collection timerecorded is the time of receipt in the lab. Performed By: #### 1 0070, 28685, 75264 ####[facility] [facility] [place] [address], [facility] GFR/1.73 sq M predicted among blacks MDRD vol rate/area (S/P/Bld) mL/min/{1.73_m2} Normal >60 [facility] Comment on above: Order Comment: No: D o not add to previous drawNo collection time noted on specimen or requisition. The collection timerecorded is the time of receipt in the lab. Result Comment: Calc ulation may not be valid for patients over 70 years Performed By: #### 1 0070, 94584, 48109 ####[facility] [facility] [place] [address], [facility] GFR/1.73 sq M predicted among non-blacks MDRD vol rate/area (S/P/Bld) 59 ml/min/1.73sq m Abnormal >60 [facility] Comment on above: Order Comment: No: D o not add to previous drawNo collection time noted on specimen or requisition. The collection timerecorded is the time of receipt in the lab. Result Comment: Calc ulation may not be valid for patients over 70 years Performed By: #### 1 0070, 75171, 47135 ####[facility] [facility] [place] [address], [facility] Glucose mass conc 391 mg/dL High 70-100 [facility] Comment on above: Order Comment: No: D o not add to previous drawNo collection time noted on specimen or requisition. The collection timerecorded is the time of receipt in the lab. Performed By: #### 1 0070, 84439, 84218 ####[facility] [facility] [place] [address], [facility] Potassium molar conc 5.1 mmol/L Normal 3.5-5.1 [facility] Comment on above: Order Comment: No: D o not add to previous drawNo collection time noted on specimen or requisition. The collection timerecorded is the time of receipt in the lab. Performed By: #### 1 0070, 19893, 22032 ####[facility] [facility] [place] [address], [facility] Sodium molar conc 130 mmol/L Low 136-145 [facility] Comment on above: Order Comment: No: D o not add to previous drawNo collection time noted on specimen or requisition. The collection timerecorded is the time of receipt in the lab. Performed By: #### 1 0070, 25171, 05955 ####[facility] [facility] [place] [address], [facility] Urea nitrogen mass conc 24 mg/dL Normal 7-25 [facility] Comment on above: Order Comment: No: D o not add to previous drawNo collection time noted on specimen or requisition. The collection timerecorded is the time of receipt in the lab. Performed By: #### 1 0, 10593, 63866 ####[facility] [facility].[address] CBC W/DIFFon 07-08-2018 ABS BASOPHILS 0.5 10*3/uL High 0.0-0.2 [facility] Comment on above: Order Comment: No: D o not add to previous drawNo collection time noted on specimen or requisition. The collection timerecorded is the time of receipt in the lab. Performed By: #### 1 0, 13890, 53942 ####[facility] [facility].[address] ABS NEUTROPHILS 12.1 10*3/uL High 1.6-7.6 [facility] Comment on above: Order Comment: No: D o not add to previous drawNo collection time noted on specimen or requisition. The collection timerecorded is the time of receipt in the lab. Performed By: #### 1 0, , 64677 ####[facility] [facility].[address] Basophils Auto #/vol (Bld) 2.8 % High 0.0-1.0 [facility] Comment on above: Order Comment: No: D o not add to previous drawNo collection time noted on specimen or requisition. The collection timerecorded is the time of receipt in the lab. Performed By: #### 1 0, , 06807 ####[facility] [facility].[address] Eosinophils Auto #/vol (Bld) 0.1 10*3/uL Normal 0.0-0.5 [facility] Comment on above: Order Comment: No: D o not add to previous drawNo collection time noted on specimen or requisition. The collection timerecorded is the time of receipt in the lab. Performed By: #### 1 0, 01838, 58321 ####[facility] [facility].[address] Eosinophils/100 WBC Auto (Bld) 0.9 % Normal 0.0-6.0 [facility] Comment on above: Order Comment: No: D o not add to previous drawNo collection time noted on specimen or requisition. The collection timerecorded is the time of receipt in the lab. Performed By: #### 1 0070, 61221, 84645 ####[facility] Erythrocyte distribution width Auto Ratio (RBC) 13.7 % Normal 11.5-15.0 [facility] Comment on above: Order Comment: No: D o not add to previous drawNo collection time noted on specimen or requisition. The collection timerecorded is the time of receipt in the lab. Performed By: #### 1 0070, 40804, 48513 ####[facility] [facility].[address] Hematocrit Auto Volume Fraction (Bld) 30.4 % Low 36.0-45.0 [facility] Comment on above: Order Comment: No: D o not add to previous drawNo collection time noted on specimen or requisition. The collection timerecorded is the time of receipt in the lab. Performed By: #### 1 0070, 46521, 76541 ####[facility] Hemoglobin mass conc (Bld) 9.7 g/dL Low 12.0-15.0 [facility] Comment on above: Order Comment: No: D o not add to previous drawNo collection time noted on specimen or requisition. The collection timerecorded is the time of receipt in the lab. Performed By: #### 1 0070, 66835, 88838 ####[facility] [facility].[address] Lymphocytes Auto #/vol (Bld) 1.5 10*3/uL Normal 1.2-4.0 [facility] Comment on above: Order Comment: No: D o not add to previous drawNo collection time noted on specimen or requisition. The collection timerecorded is the time of receipt in the lab. Performed By: #### 1 0070, 32706, 65975 ####[facility] Lymphocytes/100 WBC Auto (Bld) 9.2 % Low 20.0-45.0 [facility] Comment on above: Order Comment: No: D o not add to previous drawNo collection time noted on specimen or requisition. The collection timerecorded is the time of receipt in the lab. Performed By: #### 1 0070, 30892, 00733 ####[facility] [place] [address] MCH Auto Entitic mass (RBC) 30.7 pg Normal 27.0-33.0 [facility] Comment on above: Order Comment: No: D o not add to previous drawNo collection time noted on specimen or requisition. The collection timerecorded is the time of receipt in the lab. Performed By: #### 1 0070, 64349, 02138 ####[address] MCHC Auto mass conc (RBC) 31.9 g/dL Low 32.0-35.0 [facility] Comment on above: Order Comment: No: D o not add to previous drawNo collection time noted on specimen or requisition. The collection timerecorded is the time of receipt in the lab. Performed By: #### 1 0070, 39896, 15244 ####[facility] MCV Auto Entitic volume (RBC) 96.2 fL Normal 82.0-98.0 [facility] Comment on above: Order Comment: No: D o not add to previous drawNo collection time noted on specimen or requisition. The collection timerecorded is the time of receipt in the lab. Performed By: #### 1 0070, 30577, 95248 ####[facility] [facility] [place] [address], [facility] Monocytes Auto #/vol (Bld) 1.9 10*3/uL High 0.1-1.0 [facility] Comment on above: Order Comment: No: D o not add to previous drawNo collection time noted on specimen or requisition. The collection timerecorded is the time of receipt in the lab. Performed By: #### 1 0, , 34280 ####[facility] [facility].[address] MONOS 11.9 % Normal 5.0-12.0 [facility] Comment on above: Order Comment: No: D o not add to previous drawNo collection time noted on specimen or requisition. The collection timerecorded is the time of receipt in the lab. Performed By: #### 1 0, , 13515 ####[facility] [facility].[address] Neutrophils/100 WBC Auto (Bld) 75.2 % High 40.0-72.0 [facility] Comment on above: Order Comment: No: D o not add to previous drawNo collection time noted on specimen or requisition. The collection timerecorded is the time of receipt in the lab. Performed By: #### 1 0, , 83394 ####[facility] [facility].[address] Nucleated RBC/100 WBC Ratio (Bld) 0 % Normal 0-0 [facility] Comment on above: Order Comment: No: D o not add to previous drawNo collection time noted on specimen or requisition. The collection timerecorded is the time of receipt in the lab. Performed By: #### 1 0, 84599, 34204 ####[facility] [place] [address], [facility] PLAT CNT 354 10*3/uL Normal 150-400 [facility] Comment on above: Order Comment: No: D o not add to previous drawNo collection time noted on specimen or requisition. The collection timerecorded is the time of receipt in the lab. Performed By: #### 1 0070, 27509, 41687 ####[facility] RBC Auto #/vol (Bld) 3.16 10*6/uL Low 3.80-5.00 [facility] Comment on above: Order Comment: No: D o not add to previous drawNo collection time noted on specimen or requisition. The collection timerecorded is the time of receipt in the lab. Performed By: #### 1 0070, 13970, 66671 ####[facility] WBC Auto #/vol (Bld) 16.12 10*3/uL High 4.00-10.60 [facility] Comment on above: Order Comment: No: D o not add to previous drawNo collection time noted on specimen or requisition. The collection timerecorded is the time of receipt in the lab. Performed By: #### 1 0070, 77618, 31980 ####[facility] MAGNESIUM BLOODon 07-08-2018 Magnesium mass conc 2.3 mg/dL Normal 1.9-2.7 [facility] Comment on above: Order Comment: No: D o not add to previous drawNo collection time noted on specimen or requisition. The collection timerecorded is the time of receipt in the lab. Performed By: #### 1 0070, 20640, 08767 ####[facility] [place] [address], [facility] PHOSPHORUS BLOODon 8 Phosphate mass conc 4.7 mg/dL Normal 2.5-5.0 [facility] Comment on above: Order Comment: No: D o not add to previous drawNo collection time noted on specimen or requisition. The collection timerecorded is the time of receipt in the lab. Performed By: #### 1 0070, 22293, 67199 ####[facility] [facility].[address] POC GLUCOSE LABon 07-08-2018 Glucose mass conc 115 mg/dL High 70-100 [facility] Comment on above: Performed By: #### 0 0121 ####[facility] [facility] [place] [address], [facility] Glucose mass conc 183 mg/dL High 70-100 [facility] Comment on above: Performed By: #### 0 0121 ####[address] BASIC METABOLIC PANELon 06-10 Calcium mass conc 9.5 mg/dL Normal 8.6-10.3 [facility] Comment on above: Order Comment: No: D o not add to previous drawNo collection time noted on specimen or requisition. The collection timerecorded is the time of receipt in the lab. Performed By: #### 1 0070, 98844, 12420 ####[place] [address] [facility] [place] [address], [facility] Chloride molar conc 99 mmol/L Normal 98-107 [facility] Comment on above: Order Comment: No: D o not add to previous drawNo collection time noted on specimen or requisition. The collection timerecorded is the time of receipt in the lab. Performed By: #### 1 0070, 52404, 15828 ####[facility] [facility] [place] [address], [facility] CO2 molar conc 24 mmol/L Normal 21-31 [facility] Comment on above: Order Comment: No: D o not add to previous drawNo collection time noted on specimen or requisition. The collection timerecorded is the time of receipt in the lab. Performed By: #### 1 0070, 30533, 35355 ####[facility] [place] [address], [facility] Creatinine mass conc 0.90 mg/dL Normal 0.60-1.20 [facility] Comment on above: Order Comment: No: D o not add to previous drawNo collection time noted on specimen or requisition. The collection timerecorded is the time of receipt in the lab. Performed By: #### 1 0070, 63306, 81475 ####[facility] [place] [address], [facility] GFR/1.73 sq M predicted among blacks MDRD vol rate/area (S/P/Bld) mL/min/{1.73_m2} Normal >60 [facility] Comment on above: Order Comment: No: D o not add to previous drawNo collection time noted on specimen or requisition. The collection timerecorded is the time of receipt in the lab. Result Comment: Calc ulation may not be valid for patients over 70 years Performed By: #### 1 0070, 45624, 71374 ####[place] [address] [place] [address], [facility] GFR/1.73 sq M predicted among non-blacks MDRD vol rate/area (S/P/Bld) mL/min/{1.73_m2} Normal >60 [facility] Comment on above: Order Comment: No: D o not add to previous drawNo collection time noted on specimen or requisition. The collection timerecorded is the time of receipt in the lab. Result Comment: Calc ulation may not be valid for patients over 70 years Performed By: #### 1 0070, 83246, 32729 ####[place] [address] [place] [address], [facility] Glucose mass conc 207 mg/dL High 70-100 [facility] Comment on above: Order Comment: No: D o not add to previous drawNo collection time noted on specimen or requisition. The collection timerecorded is the time of receipt in the lab. Performed By: #### 1 0070, 84508, 63798 ####[facility] Potassium molar conc 4.4 mmol/L Normal 3.5-5.1 [facility] Comment on above: Order Comment: No: D o not add to previous drawNo collection time noted on specimen or requisition. The collection timerecorded is the time of receipt in the lab. Performed By: #### 1 0, 30121, 89624 ####[facility] [facility].[address] Sodium molar conc 131 mmol/L Low 136-145 [facility] Comment on above: Order Comment: No: D o not add to previous drawNo collection time noted on specimen or requisition. The collection timerecorded is the time of receipt in the lab. Performed By: #### 1 0, 82046, 64535 ####[place] [address] [facility].[address] Urea nitrogen mass conc 19 mg/dL Normal 7-25 [facility] Comment on above: Order Comment: No: D o not add to previous drawNo collection time noted on specimen or requisition. The collection timerecorded is the time of receipt in the lab. Performed By: #### 1 0, 70728, 77049 ####[facility] CALCIUM IONIZED CBGLon 07-07 IONIZED CALCIUM 1.42 mmol/L High 1.12-1.30 [facility] Comment on above: Performed By: #### 1 0070, 92622, 46648 ####[facility] [facility] [place] [address], [facility] CBC W/DIFFon 07-07-2018 ABS BASOPHILS 0.0 10*3/uL Normal 0.0-0.2 [facility] Comment on above: Order Comment: No: D o not add to previous drawNo collection time noted on specimen or requisition. The collection timerecorded is the time of receipt in the lab. Performed By: #### 1 0, , 07118 ####[facility] ABS NEUTROPHILS 12.3 10*3/uL High 1.6-7.6 [facility] Comment on above: Order Comment: No: D o not add to previous drawNo collection time noted on specimen or requisition. The collection timerecorded is the time of receipt in the lab. Performed By: #### 1 0, , 22402 ####[facility] Basophils Auto #/vol (Bld) 0.0 % Normal 0.0-1.0 [facility] Comment on above: Order Comment: No: D o not add to previous drawNo collection time noted on specimen or requisition. The collection timerecorded is the time of receipt in the lab. Performed By: #### 1 0, , 58663 ####[facility] Eosinophils Auto #/vol (Bld) 1.1 10*3/uL High 0.0-0.5 [facility] Comment on above: Order Comment: No: D o not add to previous drawNo collection time noted on specimen or requisition. The collection timerecorded is the time of receipt in the lab. Performed By: #### 1 0, , 68879 ####[facility] Eosinophils/100 WBC Auto (Bld) 6.4 % High 0.0-6.0 [facility] Comment on above: Order Comment: No: D o not add to previous drawNo collection time noted on specimen or requisition. The collection timerecorded is the time of receipt in the lab. Performed By: #### 1 0, , 26283 ####[facility] Erythrocyte distribution width Auto Ratio (RBC) 13.6 % Normal 11.5-15.0 [facility] Comment on above: Order Comment: No: D o not add to previous drawNo collection time noted on specimen or requisition. The collection timerecorded is the time of receipt in the lab. Performed By: #### 1 0070, 22689, 24922 ####[facility] GIANT PLATELETS Present Normal [facility] Comment on above: Order Comment: No: D o not add to previous drawNo collection time noted on specimen or requisition. The collection timerecorded is the time of receipt in the lab. Performed By: #### 1 0070, 09608, 17164 ####[facility] Hematocrit Auto Volume Fraction (Bld) 31.8 % Low 36.0-45.0 [facility] Comment on above: Order Comment: No: D o not add to previous drawNo collection time noted on specimen or requisition. The collection timerecorded is the time of receipt in the lab. Performed By: #### 1 0070, 76087, 95215 ####[facility] Hemoglobin mass conc (Bld) 10.1 g/dL Low 12.0-15.0 [facility] Comment on above: Order Comment: No: D o not add to previous drawNo collection time noted on specimen or requisition. The collection timerecorded is the time of receipt in the lab. Performed By: #### 1 0070, 09347, 76591 ####[facility] Lymphocytes Auto #/vol (Bld) 2.7 10*3/uL Normal 1.2-4.0 [facility] Comment on above: Order Comment: No: D o not add to previous drawNo collection time noted on specimen or requisition. The collection timerecorded is the time of receipt in the lab. Performed By: #### 1 0, 96795, 80906 ####[facility] Lymphocytes/100 WBC Auto (Bld) 15.4 % Low 20.0-45.0 [facility] Comment on above: Order Comment: No: D o not add to previous drawNo collection time noted on specimen or requisition. The collection timerecorded is the time of receipt in the lab. Performed By: #### 1 0, , 36889 ####[facility] MCH Auto Entitic mass (RBC) 31.3 pg Normal 27.0-33.0 [facility] Comment on above: Order Comment: No: D o not add to previous drawNo collection time noted on specimen or requisition. The collection timerecorded is the time of receipt in the lab. Performed By: #### 1 0, , 16142 ####[facility] MCHC Auto mass conc (RBC) 31.8 g/dL Low 32.0-35.0 [facility] Comment on above: Order Comment: No: D o not add to previous drawNo collection time noted on specimen or requisition. The collection timerecorded is the time of receipt in the lab. Performed By: #### 1 0, 73710, 77635 ####[facility] [facility].[address] MCV Auto Entitic volume (RBC) 98.5 fL High 82.0-98.0 [facility] Comment on above: Order Comment: No: D o not add to previous drawNo collection time noted on specimen or requisition. The collection timerecorded is the time of receipt in the lab. Performed By: #### 1 0070, 86299, 45476 ####[facility] METAMYELO 0.9 % High 0.0-0.0 [facility] Comment on above: Order Comment: No: D o not add to previous drawNo collection time noted on specimen or requisition. The collection timerecorded is the time of receipt in the lab. Performed By: #### 1 0070, 53313, 70657 ####[facility] Monocytes Auto #/vol (Bld) 1.0 10*3/uL Normal 0.1-1.0 [facility] Comment on above: Order Comment: No: D o not add to previous drawNo collection time noted on specimen or requisition. The collection timerecorded is the time of receipt in the lab. Performed By: #### 1 0070, 46664, 72980 ####[address] MONOS 5.5 % Normal 5.0-12.0 [facility] Comment on above: Order Comment: No: D o not add to previous drawNo collection time noted on specimen or requisition. The collection timerecorded is the time of receipt in the lab. Performed By: #### 1 0070, 07633, 25924 ####[address] MYELOS 0.9 % High .0-.0 [facility] Comment on above: Order Comment: No: D o not add to previous drawNo collection time noted on specimen or requisition. The collection timerecorded is the time of receipt in the lab. Performed By: #### 1 0070, 51416, 62389 ####[place] [address] Neutrophils/100 WBC Auto (Bld) 70.9 % Normal 40.0-72.0 [facility] Comment on above: Order Comment: No: D o not add to previous drawNo collection time noted on specimen or requisition. The collection timerecorded is the time of receipt in the lab. Performed By: #### 1 0, 16903, 14285 ####[facility] [facility].[address] Nucleated RBC/100 WBC Ratio (Bld) 0 % Normal 0-0 [facility] Comment on above: Order Comment: No: D o not add to previous drawNo collection time noted on specimen or requisition. The collection timerecorded is the time of receipt in the lab. Performed By: #### 1 0, , 73156 ####[facility] [facility].[address] PLAT CNT 382 10*3/uL Normal 150-400 [facility] Comment on above: Order Comment: No: D o not add to previous drawNo collection time noted on specimen or requisition. The collection timerecorded is the time of receipt in the lab. Performed By: #### 1 0, , 69239 ####[facility] [facility].[address] RBC Auto #/vol (Bld) 3.23 10*6/uL Low 3.80-5.00 [facility] Comment on above: Order Comment: No: D o not add to previous drawNo collection time noted on specimen or requisition. The collection timerecorded is the time of receipt in the lab. Performed By: #### 1 0, 54620, 78564 ####[facility] [facility].[address] WBC Auto #/vol (Bld) 17.29 10*3/uL High 4.00-10.60 [facility] Comment on above: Order Comment: No: D o not add to previous drawNo collection time noted on specimen or requisition. The collection timerecorded is the time of receipt in the lab. Performed By: #### 1 0, 51793, 28449 ####[facility] [place] [address].[address] LIVER BATTERYon 07-07-2018 Albumin mass conc 3.0 g/dL Low 3.5-5.7 [facility] Comment on above: Order Comment: No: D o not add to previous drawNo collection time noted on specimen or requisition. The collection timerecorded is the time of receipt in the lab. Performed By: #### 1 0070, 09558, 83311 ####[facility] ALKALINE PHOSPH 99 IU/L Normal 34-104 [facility] Comment on above: Order Comment: No: D o not add to previous drawNo collection time noted on specimen or requisition. The collection timerecorded is the time of receipt in the lab. Performed By: #### 1 0070, 72917, 79819 ####[address] ALT enzyme act/vol 21 U/L Normal 7-52 [facility] Comment on above: Order Comment: No: D o not add to previous drawNo collection time noted on specimen or requisition. The collection timerecorded is the time of receipt in the lab. Performed By: #### 1 0070, 20750, 53316 ####[place] [address] AST enzyme act/vol 23 U/L Normal 13-39 [facility] Comment on above: Order Comment: No: D o not add to previous drawNo collection time noted on specimen or requisition. The collection timerecorded is the time of receipt in the lab. Performed By: #### 1 0070, 64396, 03623 ####[address] Bilirubin mass conc 0.5 mg/dL Normal 0.3-1.0 [facility] Comment on above: Order Comment: No: D o not add to previous drawNo collection time noted on specimen or requisition. The collection timerecorded is the time of receipt in the lab. Performed By: #### 1 0070, 59180, 83122 ####[facility] [facility] [place] [address], [facility] Bilirubin.direct mass conc 0.3 mg/dL High 0.0-0.2 [facility] Comment on above: Order Comment: No: D o not add to previous drawNo collection time noted on specimen or requisition. The collection timerecorded is the time of receipt in the lab. Performed By: #### 1 0070, 34359, 98590 ####[facility] [facility].[address] Protein mass conc 6.5 g/dL Normal 6.0-8.3 [facility] Comment on above: Order Comment: No: D o not add to previous drawNo collection time noted on specimen or requisition. The collection timerecorded is the time of receipt in the lab. Performed By: #### 1 0, 00581, 63870 ####[facility] [facility] [place] [address], [facility] MAGNESIUM BLOODon 07-07-2018 Magnesium mass conc 1.6 mg/dL Low 1.9-2.7 [facility] Comment on above: Order Comment: No: D o not add to previous drawNo collection time noted on specimen or requisition. The collection timerecorded is the time of receipt in the lab. Performed By: #### 1 0070, 02072, 26778 ####[facility] [place] [address], [facility] PHOSPHORUS BLOODon 8 Phosphate mass conc 3.4 mg/dL Normal 2.5-5.0 [facility] Comment on above: Order Comment: No: D o not add to previous drawNo collection time noted on specimen or requisition. The collection timerecorded is the time of receipt in the lab. Performed By: #### 1 0070, 08348, 45285 ####[facility] [place] [address], [place] POC GLUCOSE LABon 07-07-2018 Glucose mass conc 157 mg/dL High 70-100 [facility] Comment on above: Performed By: #### 1 0070, 46424, 42261 ####[facility] [place] [address], [place] Glucose mass conc 196 mg/dL High 70-100 [facility] Comment on above: Performed By: #### 1 0070, 19825, 60458 ####[facility] [place] [address], [place] Glucose mass conc 190 mg/dL High 70-100 [facility] Comment on above: Performed By: #### 1 0070, 38505, 98637 ####[facility] [place] [address], [place] Glucose mass conc 189 mg/dL High 70-100 [facility] Comment on above: Performed By: #### 1 0070, 67738, 90423 ####[facility] [place] [address], [facility] BASIC METABOLIC PANELon 06-09 Calcium mass conc 9.3 mg/dL Normal 8.6-10.3 [facility] Comment on above: Order Comment: No: D o not add to previous draw Performed By: #### 8 5499 ####[facility] [place] [address], [place] Chloride molar conc 100 mmol/L Normal 98-107 [facility] Comment on above: Order Comment: No: D o not add to previous draw Performed By: #### 8 2809 ####[facility] [place] [address], [place] CO2 molar conc 25 mmol/L Normal 21-31 [facility] Comment on above: Order Comment: No: D o not add to previous draw Performed By: #### 8 1429 ####[facility] [place] [address], [facility] Creatinine mass conc 0.97 mg/dL Normal 0.60-1.20 [facility] Comment on above: Order Comment: No: D o not add to previous draw Performed By: #### 8 5499 ####[facility] [place] [place] [address], [facility] GFR/1.73 sq M predicted among blacks MDRD vol rate/area (S/P/Bld) mL/min/{1.73_m2} Normal >60 [facility] Comment on above: Order Comment: No: D o not add to previous draw Result Comment: Calc ulation may not be valid for patients over 70 years Performed By: #### 8 5499 ####[facility] [place] [address], [facility] GFR/1.73 sq M predicted among non-blacks MDRD vol rate/area (S/P/Bld) 56 ml/min/1.73sq m Abnormal >60 [facility] Comment on above: Order Comment: No: D o not add to previous draw Result Comment: Calc ulation may not be valid for patients over 70 years Performed By: #### 8 5499 ####[facility] [place] [address], [facility] Glucose mass conc 213 mg/dL High 70-100 [facility] Comment on above: Order Comment: No: D o not add to previous draw Performed By: #### 8 5499 ####[facility] [place] [address], [place] Potassium molar conc 4.1 mmol/L Normal 3.5-5.1 [facility] Comment on above: Order Comment: No: D o not add to previous draw Performed By: #### 8 5499 ####[facility] [place] [address], [place] Sodium molar conc 132 mmol/L Low 136-145 [facility] Comment on above: Order Comment: No: D o not add to previous draw Performed By: #### 8 5499 ####[facility] [facility] [place] [address], [facility] Urea nitrogen mass conc 19 mg/dL Normal 7-25 [facility] Comment on above: Order Comment: No: D o not add to previous draw Performed By: #### 8 5499 ####[facility] [facility].[address] MAGNESIUM BLOODon 07-06-2018 Magnesium mass conc 1.8 mg/dL Low 1.9-2.7 [facility] Comment on above: Order Comment: No: D o not add to previous drawNo collection time noted on specimen or requisition. The collection timerecorded is the time of receipt in the lab. Performed By: #### 1 0070, 78338, 58937 ####[facility] [facility].[address] PHOSPHORUS BLOODon 8 Phosphate mass conc 3.8 mg/dL Normal 2.5-5.0 [facility] Comment on above: Order Comment: No: D o not add to previous drawNo collection time noted on specimen or requisition. The collection timerecorded is the time of receipt in the lab. Performed By: #### 1 0070, 45350, 01401 ####[facility] [facility] [place] [address], [facility] POC GLUCOSE LABon 07-06-2018 Glucose mass conc 217 mg/dL High 70-100 [facility] Comment on above: Performed By: #### 1 0070, 77867, 36495 ####[facility] [facility] [place] [address], [facility] Glucose mass conc 197 mg/dL High 70-100 [facility] Comment on above: Performed By: #### 1 0070, 15630, 83852 ####[facility] [address], [facility] Glucose mass conc 160 mg/dL High 70-100 [facility] Comment on above: Performed By: #### 8 5499 ####[facility] [place] [address], [facility] TRIGLYCERIDES BLOODon 2017 Triglyceride mass conc 256 mg/dL High 40-149 [facility] Comment on above: Order Comment: No: D o not add to previous draw Result Comment: TRIG LYCERIDE REFERENCE RANGE:20 YEARS AND OLDER CARDIOVASCULAR RISKLESS THAN 150 mg/dl LOW [id number] TO 199 mg/dl BORDERLINE [id number] mg/dl AND GREATER HIGH RISK Performed By: #### 8 5499 ####[address] BASIC METABOLIC PANELon 06-09 Calcium mass conc 8.7 mg/dL Normal 8.6-10.3 [facility] Comment on above: Order Comment: No: D o not add to previous draw Performed By: #### 8 5499 ####[facility] [facility] [place] [address], [facility] Chloride molar conc 105 mmol/L Normal 98-107 [facility] Comment on above: Order Comment: No: D o not add to previous draw Performed By: #### 8 5499 ####[facility] [place] [address], [facility] CO2 molar conc 24 mmol/L Normal 21-31 [facility] Comment on above: Order Comment: No: D o not add to previous draw Performed By: #### 8 5499 ####[facility] [place] [address], [facility] Creatinine mass conc 1.05 mg/dL Normal 0.60-1.20 [facility] Comment on above: Order Comment: No: D o not add to previous draw Performed By: #### 8 5499 ####[facility] [facility] [place] [address], [facility] GFR/1.73 sq M predicted among blacks MDRD vol rate/area (S/P/Bld) mL/min/{1.73_m2} Normal >60 [facility] Comment on above: Order Comment: No: D o not add to previous draw Result Comment: Calc ulation may not be valid for patients over 70 years Performed By: #### 8 [id number] ####[facility] [facility] [place] [address], [facility] GFR/1.73 sq M predicted among non-blacks MDRD vol rate/area (S/P/Bld) 50 ml/min/1.73sq m Abnormal >60 [facility] Comment on above: Order Comment: No: D o not add to previous draw Result Comment: Calc ulation may not be valid for patients over 70 years Performed By: #### 8 [id number] ####[facility] [facility] [place] [address], [facility] Glucose mass conc 185 mg/dL High 70-100 [facility] Comment on above: Order Comment: No: D o not add to previous draw Performed By: #### 8 [id number] ####[facility] [facility] [place] [address], [facility] Potassium molar conc 3.8 mmol/L Normal 3.5-5.1 [facility] Comment on above: Order Comment: No: D o not add to previous draw Performed By: #### 8 [id number] ####[facility] [facility] [place] [address], [place] Sodium molar conc 138 mmol/L Normal 136-145 [facility] Comment on above: Order Comment: No: D o not add to previous draw Performed By: #### 8 [id number] ####[facility] [facility] [place] [address], [facility] Urea nitrogen mass conc 18 mg/dL Normal 7-25 [facility] Comment on above: Order Comment: No: D o not add to previous draw Performed By: #### 8 [id number] ####[facility] CBC W/DIFFon 07-05-2018 ABS BASOPHILS 0.0 10*3/uL Normal 0.0-0.2 [facility] Comment on above: Order Comment: No: D o not add to previous draw Performed By: #### 8 [id number] ####[facility] ABS NEUTROPHILS 9.5 10*3/uL High 1.6-7.6 [facility] Comment on above: Order Comment: No: D o not add to previous draw Performed By: #### 8 [id number] ####[facility] Basophils Auto #/vol (Bld) 0.0 % Normal 0.0-1.0 [facility] Comment on above: Order Comment: No: D o not add to previous draw Performed By: #### 8 [id number] ####[facility] [place] [address], [facility] Eosinophils Auto #/vol (Bld) 0.2 10*3/uL Normal 0.0-0.5 [facility] Comment on above: Order Comment: No: D o not add to previous draw Performed By: #### 8 [id number] ####[facility] Eosinophils/100 WBC Auto (Bld) 1.8 % Normal 0.0-6.0 [facility] Comment on above: Order Comment: No: D o not add to previous draw Performed By: #### 8 [id number] ####[facility] Erythrocyte distribution width Auto Ratio (RBC) 13.8 % Normal 11.5-15.0 [facility] Comment on above: Order Comment: No: D o not add to previous draw Performed By: #### 8 [id number] ####[facility] Hematocrit Auto Volume Fraction (Bld) 28.7 % Low 36.0-45.0 [facility] Comment on above: Order Comment: No: D o not add to previous draw Performed By: #### 8 [id number] ####[facility] Hemoglobin mass conc (Bld) 8.9 g/dL Low 12.0-15.0 [facility] Comment on above: Order Comment: No: D o not add to previous draw Performed By: #### 8 [id number] ####[facility] [place] [address] Lymphocytes Auto #/vol (Bld) 1.3 10*3/uL Normal 1.2-4.0 [facility] Comment on above: Order Comment: No: D o not add to previous draw Performed By: #### 8 [id number] ####[facility] [place] [address] Lymphocytes/100 WBC Auto (Bld) 10.9 % Low 20.0-45.0 [facility] Comment on above: Order Comment: No: D o not add to previous draw Performed By: #### 8 [id number] ####[facility] [place] [address] MCH Auto Entitic mass (RBC) 30.5 pg Normal 27.0-33.0 [facility] Comment on above: Order Comment: No: D o not add to previous draw Performed By: #### 8 [id number] ####[facility] [place] [address] MCHC Auto mass conc (RBC) 31.0 g/dL Low 32.0-35.0 [facility] Comment on above: Order Comment: No: D o not add to previous draw Performed By: #### 8 [id number] ####[facility] MCV Auto Entitic volume (RBC) 98.3 fL High 82.0-98.0 [facility] Comment on above: Order Comment: No: D o not add to previous draw Performed By: #### 8 [id number] ####[facility] METAMYELO 0.9 % High 0.0-0.0 [facility] Comment on above: Order Comment: No: D o not add to previous draw Performed By: #### 8 [id number] ####[facility] Monocytes Auto #/vol (Bld) 0.8 10*3/uL Normal 0.1-1.0 [facility] Comment on above: Order Comment: No: D o not add to previous draw Performed By: #### 8 [id number] ####[facility] MONOS 6.4 % Normal 5.0-12.0 [facility] Comment on above: Order Comment: No: D o not add to previous draw Performed By: #### 8 [id number] ####[facility] MYELOS 0.9 % High .0-.0 [facility] Comment on above: Order Comment: No: D o not add to previous draw Performed By: #### 8 [id number] ####[facility] Neutrophils/100 WBC Auto (Bld) 79.1 % High 40.0-72.0 [facility] Comment on above: Order Comment: No: D o not add to previous draw Performed By: #### 8 [id number] ####[facility] Nucleated RBC/100 WBC Ratio (Bld) 0 % Normal 0-0 [facility] Comment on above: Order Comment: No: D o not add to previous draw Performed By: #### 8 [id number] ####[facility] [facility] [place] [address], [facility] PLAT CNT 284 10*3/uL Normal 150-400 [facility] Comment on above: Order Comment: No: D o not add to previous draw Performed By: #### 8 [id number] ####[facility] [facility].[address] RBC Auto #/vol (Bld) 2.92 10*6/uL Low 3.80-5.00 [facility] Comment on above: Order Comment: No: D o not add to previous draw Performed By: #### 8 [id number] ####[facility] [facility].[address] WBC Auto #/vol (Bld) 12.05 10*3/uL High 4.00-10.60 [facility] Comment on above: Order Comment: No: D o not add to previous draw Performed By: #### 8 [id number] ####[facility] [facility].[address] MAGNESIUM BLOODon 07-05-2018 Magnesium mass conc 1.8 mg/dL Low 1.9-2.7 [facility] Comment on above: Order Comment: No: D o not add to previous draw Performed By: #### 8 [id number] ####[facility] [address], [facility] PHOSPHORUS BLOODon 8 Phosphate mass conc 3.4 mg/dL Normal 2.5-5.0 [facility] Comment on above: Order Comment: No: D o not add to previous draw Performed By: #### 8 [id number] ####[facility] [place] [address], [facility] POC GLUCOSE LABon 07-05-2018 Glucose mass conc 162 mg/dL High 70-100 [facility] Comment on above: Performed By: #### 8 [id number] ####[facility] [place] [address], [facility] Glucose mass conc 198 mg/dL High 70-100 [facility] Comment on above: Performed By: #### 8 [id number] ####[facility] [place] [address], [facility] TRIGLYCERIDES BLOODon 2017 Triglyceride mass conc 204 mg/dL High 40-149 [facility] Comment on above: Order Comment: No: D o not add to previous draw Result Comment: TRIG LYCERIDE REFERENCE RANGE:20 YEARS AND OLDER CARDIOVASCULAR RISKLESS THAN 150 mg/dl LOW [id number] TO 199 mg/dl BORDERLINE [id number] mg/dl AND GREATER HIGH RISK Performed By: #### 8 [id number] ####[facility] [facility] [place] [address], [facility] BASIC METABOLIC PANELon 06-09 Calcium mass conc 8.8 mg/dL Normal 8.6-10.3 [facility] Comment on above: Order Comment: No: D o not add to previous draw Performed By: #### 8 [id number] ####[facility] [place] [address], [facility] Chloride molar conc 105 mmol/L Normal 98-107 [facility] Comment on above: Order Comment: No: D o not add to previous draw Performed By: #### 8 [id number] ####[facility] [place] [address], [facility] CO2 molar conc 22 mmol/L Normal 21-31 [facility] Comment on above: Order Comment: No: D o not add to previous draw Performed By: #### 8 [id number] ####[facility] [facility] [place] [address], [facility] Creatinine mass conc 1.07 mg/dL Normal 0.60-1.20 [facility] Comment on above: Order Comment: No: D o not add to previous draw Performed By: #### 8 [id number] ####[facility] [place] [address], [place] GFR/1.73 sq M predicted among blacks MDRD vol rate/area (S/P/Bld) mL/min/{1.73_m2} Normal >60 [facility] Comment on above: Order Comment: No: D o not add to previous draw Result Comment: Calc ulation may not be valid for patients over 70 years Performed By: #### 8 [id number] ####[facility] [facility] [place] [address], [facility] GFR/1.73 sq M predicted among non-blacks MDRD vol rate/area (S/P/Bld) 50 ml/min/1.73sq m Abnormal >60 [facility] Comment on above: Order Comment: No: D o not add to previous draw Result Comment: Calc ulation may not be valid for patients over 70 years Performed By: #### 8 [id number] ####[facility] [facility] [place] [address], [facility] Glucose mass conc 188 mg/dL High 70-100 [facility] Comment on above: Order Comment: No: D o not add to previous draw Performed By: #### 8 [id number] ####[facility] [facility] [place] [address], [place] Potassium molar conc 3.7 mmol/L Normal 3.5-5.1 [facility] Comment on above: Order Comment: No: D o not add to previous draw Performed By: #### 8 [id number] ####[facility] [place] [address], [place] Sodium molar conc 136 mmol/L Normal 136-145 [facility] Comment on above: Order Comment: No: D o not add to previous draw Performed By: #### 8 [id number] ####[facility] [facility].[address] Urea nitrogen mass conc 14 mg/dL Normal 7-25 [facility] Comment on above: Order Comment: No: D o not add to previous draw Performed By: #### 8 [id number] ####[facility] [facility].[address] CBC W/DIFFon 07-04-2018 ABS BASOPHILS 0.0 10*3/uL Normal 0.0-0.2 [facility] Comment on above: Performed By: #### 8 [id number] ####[facility] [facility].[address] ABS NEUTROPHILS 9.7 10*3/uL High 1.6-7.6 [facility] Comment on above: Performed By: #### 8 [id number] ####[facility] [facility].[address] Basophils Auto #/vol (Bld) 0.0 % Normal 0.0-1.0 [facility] Comment on above: Performed By: #### 8 [id number] ####[facility] [facility].[address] Eosinophils Auto #/vol (Bld) 0.2 10*3/uL Normal 0.0-0.5 [facility] Comment on above: Performed By: #### 8 [id number] ####[facility] [facility].[address] Eosinophils/100 WBC Auto (Bld) 1.8 % Normal 0.0-6.0 [facility] Comment on above: Performed By: #### 8 [id number] ####[facility] [facility].[address] Erythrocyte distribution width Auto Ratio (RBC) 13.7 % Normal 11.5-15.0 [facility] Comment on above: Performed By: #### 8 [id number] ####[facility] GIANT PLATELETS Present Normal [facility] Comment on above: Performed By: #### 8 [id number] ####[facility] Hematocrit Auto Volume Fraction (Bld) 31.4 % Low 36.0-45.0 [facility] Comment on above: Performed By: #### 8 [id number] ####[facility] Hemoglobin mass conc (Bld) 10.0 g/dL Low 12.0-15.0 [facility] Comment on above: Performed By: #### 8 [id number] ####[facility] Lymphocytes Auto #/vol (Bld) 1.5 10*3/uL Normal 1.2-4.0 [facility] Comment on above: Performed By: #### 8 [id number] ####[facility] Lymphocytes/100 WBC Auto (Bld) 11.8 % Low 20.0-45.0 [facility] Comment on above: Performed By: #### 8 [id number] ####[facility] MCH Auto Entitic mass (RBC) 30.8 pg Normal 27.0-33.0 [facility] Comment on above: Performed By: #### 8 [id number] ####[facility] MCHC Auto mass conc (RBC) 31.8 g/dL Low 32.0-35.0 [facility] Comment on above: Performed By: #### 8 [id number] ####[facility] [facility].[address] MCV Auto Entitic volume (RBC) 96.6 fL Normal 82.0-98.0 [facility] Comment on above: Performed By: #### 8 [id number] ####[facility] [facility].[address] METAMYELO 0.9 % High 0.0-0.0 [facility] Comment on above: Performed By: #### 8 [id number] ####[facility] Monocytes Auto #/vol (Bld) 1.0 10*3/uL Normal 0.1-1.0 [facility] Comment on above: Performed By: #### 8 5499 ####[facility] MONOS 8.2 % Normal 5.0-12.0 [facility] Comment on above: Performed By: #### 8 5499 ####[facility] Neutrophils/100 WBC Auto (Bld) 77.3 % High 40.0-72.0 [facility] Comment on above: Performed By: #### 8 5499 ####[facility] NRBC SCAN Present Normal [facility] Comment on above: Performed By: #### 8 [id number] ####[facility] [facility].[address] Nucleated RBC/100 WBC Ratio (Bld) 0 % Normal 0-0 [facility] Comment on above: Performed By: #### 8 [id number] ####[facility] [facility] [place] [address], [facility] PLAT CNT 300 10*3/uL Normal 150-400 [facility] Comment on above: Performed By: #### 8 [id number] ####[facility] [address], [facility] RBC Auto #/vol (Bld) 3.25 10*6/uL Low 3.80-5.00 [facility] Comment on above: Performed By: #### 8 [id number] ####[facility] WBC Auto #/vol (Bld) 12.52 10*3/uL High 4.00-10.60 [facility] Comment on above: Performed By: #### 8 [id number] ####[facility] MAGNESIUM BLOODon 07-04-2018 Magnesium mass conc 1.9 mg/dL Normal 1.9-2.7 [facility] Comment on above: Order Comment: No: D o not add to previous draw Performed By: #### 8 [id number] ####[facility] PHOSPHORUS BLOODon 8 Phosphate mass conc 2.8 mg/dL Normal 2.5-5.0 [facility] Comment on above: Order Comment: No: D o not add to previous draw Performed By: #### 8 [id number] ####[facility] POC GLUCOSE LABon 07-04-2018 Glucose mass conc 161 mg/dL High 70-100 [facility] Comment on above: Performed By: #### 8 [id number] ####[facility] Glucose mass conc 169 mg/dL High 70-100 [facility] Comment on above: Performed By: #### 8 [id number] ####[facility] [place] [address], [place] Glucose mass conc 222 mg/dL High 70-100 [facility] Comment on above: Performed By: #### 8 5499 ####[facility] [place] [address], [place] Glucose mass conc 186 mg/dL High 70-100 [facility] Comment on above: Performed By: #### 8 [id number] ####[facility] [place] [address], [place] Glucose mass conc 153 mg/dL High 70-100 [facility] Comment on above: Performed By: #### 8 [id number] ####[facility] [place] [address], [facility] BASIC METABOLIC PANELon 08-2 Calcium mass conc 8.1 mg/dL Low 8.6-10.3 [facility] Comment on above: Order Comment: No: D o not add to previous draw Performed By: #### 8 [id number] ####[facility] [place] [address], [place] Chloride molar conc 104 mmol/L Normal 98-107 [facility] Comment on above: Order Comment: No: D o not add to previous draw Performed By: #### 8 [id number] ####[facility] [place] [address], [place] CO2 molar conc 21 mmol/L Normal 21-31 [facility] Comment on above: Order Comment: No: D o not add to previous draw Performed By: #### 8 [id number] ####[facility] [place] [address], [place] Creatinine mass conc 1.12 mg/dL Normal 0.60-1.20 [facility] Comment on above: Order Comment: No: D o not add to previous draw Performed By: #### 8 [id number] ####[facility] [place] [address], [place] GFR/1.73 sq M predicted among blacks MDRD vol rate/area (S/P/Bld) 57 ml/min/1.73sq m Abnormal >60 [facility] Comment on above: Order Comment: No: D o not add to previous draw Result Comment: Calc ulation may not be valid for patients over 70 years Performed By: #### 8 [id number] ####[facility] [place] [address], [facility] GFR/1.73 sq M predicted among non-blacks MDRD vol rate/area (S/P/Bld) 47 ml/min/1.73sq m Abnormal >60 [facility] Comment on above: Order Comment: No: D o not add to previous draw Result Comment: Calc ulation may not be valid for patients over 70 years Performed By: #### 8 [id number] ####[facility] [place] [address], [facility] Glucose mass conc 246 mg/dL High 70-100 [facility] Comment on above: Order Comment: No: D o not add to previous draw Performed By: #### 8 [id number] ####[facility] [place] [address], [place] Potassium molar conc 4.4 mmol/L Normal 3.5-5.1 [facility] Comment on above: Order Comment: No: D o not add to previous draw Performed By: #### 8 [id number] ####[facility] [place] [address], [place] Sodium molar conc 132 mmol/L Low 136-145 [facility] Comment on above: Order Comment: No: D o not add to previous draw Performed By: #### 8 [id number] ####[facility] [place] [address], [place] Urea nitrogen mass conc 10 mg/dL Normal 7-25 [facility] Comment on above: Order Comment: No: D o not add to previous draw Performed By: #### 8 [id number] ####[facility] CBC COMPLETE BLOOD COUNTon 0 07-03-2018 Erythrocyte distribution width Auto Ratio (RBC) 13.7 % Normal 11.5-15.0 [facility] Comment on above: Order Comment: No: D o not add to previous draw Performed By: #### 8 [id number] ####[facility] [facility] Hematocrit Auto Volume Fraction (Bld) 36.3 % Normal 36.0-45.0 [facility] Comment on above: Order Comment: No: D o not add to previous draw Performed By: #### 8 [id number] ####[facility] Hemoglobin mass conc (Bld) 11.3 g/dL Low 12.0-15.0 [facility] Comment on above: Order Comment: No: D o not add to previous draw Performed By: #### 8 [id number] ####[facility] [facility].[address] MCH Auto Entitic mass (RBC) 30.5 pg Normal 27.0-33.0 [facility] Comment on above: Order Comment: No: D o not add to previous draw Performed By: #### 8 [id number] ####[facility] [facility].[address] MCHC Auto mass conc (RBC) 31.1 g/dL Low 32.0-35.0 [facility] Comment on above: Order Comment: No: D o not add to previous draw Performed By: #### 8 [id number] ####[facility] MCV Auto Entitic volume (RBC) 97.8 fL Normal 82.0-98.0 [facility] Comment on above: Order Comment: No: D o not add to previous draw Performed By: #### 8 [id number] ####[facility] Nucleated RBC/100 WBC Ratio (Bld) 0 % Normal 0-0 [facility] Comment on above: Order Comment: No: D o not add to previous draw Performed By: #### 8 [id number] ####[facility] [address], [facility] PLAT CNT 313 10*3/uL Normal 150-400 [facility] Comment on above: Order Comment: No: D o not add to previous draw Performed By: #### 8 [id number] ####[facility] RBC Auto #/vol (Bld) 3.71 10*6/uL Low 3.80-5.00 [facility] Comment on above: Order Comment: No: D o not add to previous draw Performed By: #### 8 [id number] ####[facility] WBC Auto #/vol (Bld) 9.64 10*3/uL Normal 4.00-10.60 [facility] Comment on above: Order Comment: No: D o not add to previous draw Performed By: #### 8 [id number] ####[facility] LIVER BATTERYon 07-03-2018 Albumin mass conc 2.8 g/dL Low 3.5-5.7 [facility] Comment on above: Order Comment: No: D o not add to previous draw Performed By: #### 8 [id number] ####[facility] [address], [facility] ALKALINE PHOSPH 87 IU/L Normal 34-104 [facility] Comment on above: Order Comment: No: D o not add to previous draw Performed By: #### 8 [id number] ####[facility] [place] [address], [facility] ALT enzyme act/vol 17 U/L Normal 7-52 [facility] Comment on above: Order Comment: No: D o not add to previous draw Performed By: #### 8 [id number] ####[facility] [place] [address], [place] AST enzyme act/vol 17 U/L Normal 13-39 [facility] Comment on above: Order Comment: No: D o not add to previous draw Performed By: #### 8 [id number] ####[facility] [place] [address], [facility] Bilirubin mass conc 1.0 mg/dL Normal 0.3-1.0 [facility] Comment on above: Order Comment: No: D o not add to previous draw Performed By: #### 8 [id number] ####[facility] [place] [address], [facility] Bilirubin.direct mass conc 0.6 mg/dL High 0.0-0.2 [facility] Comment on above: Order Comment: No: D o not add to previous draw Performed By: #### 8 [id number] ####[facility] [address] [place] [address], [facility] Protein mass conc 5.6 g/dL Low 6.0-8.3 [facility] Comment on above: Order Comment: No: D o not add to previous draw Performed By: #### 8 5499 ####[facility] [place] [address], [facility] MAGNESIUM BLOODon 07-03-2018 Magnesium mass conc 2.3 mg/dL Normal 1.9-2.7 [facility] Comment on above: Order Comment: No: D o not add to previous draw Performed By: #### 8 5499 ####[facility] Operative Reporton 8 Operative Report MR#: [id number] [facility] Pt[facility] Name: Vidhya Giordano Room #: [id number] Discharge Date: Birthdate: 1940 OPERATIVE REPORTDATE OF SURGERY: 07/02/2018SURGEON: Meg Abebe M.D.PREOPERATIVE DIAGNOSIS: Status post repair of enterocutaneous fistula andanastomosis leak.POSTOPERATIVE DIAGNOSIS: Status post repair of enterocutaneous fistula andanastomosis leak.OPERATION PERFORMED: Exploratory laparotomy, extensive lysis of adhesionmore than 2 hours, small-bowel resection with functional hhu-vn-bejmpchucqxsaf and repair of a transverse colon iatrogenic [...] time-out, the incision staple was reopened and cvaytgvumpkqjxdjb-ww-lwdet suture was removed. The fascia was opened. [...] divided with the LigaSure. Then, a functional caf-mm-zxndxqfuajiavg was performed by a blue load 6 [...] 07/02/2018/07:16 P/Meg Abebe M.D.Date Trans: 07/02/2018 10:15 P/giovannyoDN_JN:[id number] c: Kalin Santos D.O. [address] [place] [address] Normal [facility] PHOSPHORUS BLOODon 8 Phosphate mass conc 2.3 mg/dL Low 2.5-5.0 [facility] Comment on above: Order Comment: No: D o not add to previous draw Performed By: #### 8 5499 ####[facility] [address], [facility] POC GLUCOSE LABon 07-03-2018 Glucose mass conc 169 mg/dL High 70-100 [facility] Comment on above: Performed By: #### 8 5499 ####[facility] [place] [address], [facility] Glucose mass conc 141 mg/dL High 70-100 [facility] Comment on above: Performed By: #### 8 5499 ####[facility] [place] [address], [facility] Glucose mass conc 221 mg/dL High 70-100 [facility] Comment on above: Performed By: #### 8 5499 ####[facility] [place] [address], [facility] *BLOOD CULTUREon 07-02-2018 Bacteria identified in Blood by Culture Clinical Report: (D) Specimen: BLOOD CULTURE Collected: 07/02/2018 21:59 Status: Final Last Updated: 07/08/2018 07:42 CULT RES (Final) No Growth Day 5 Normal [facility] Comment on above: Performed By: #### 8 5499 ####[facility] [facility] [place] [address], [facility] Bacteria identified in Blood by Culture Clinical Report: (D) Specimen: BLOOD CULTURE Collected: 07/02/2018 21:50 Status: Final Last Updated: 07/08/2018 07:42 (1) left hand CULT RES (Final) No Growth Day 5 Normal [facility] Comment on above: Order Comment: left hand Performed By: #### 8 5499 ####[facility] [place] [address], [facility] BASIC METABOLIC PANELon 06-09 Calcium mass conc 8.2 mg/dL Low 8.6-10.3 [facility] Comment on above: Order Comment: No: D o not add to previous draw Performed By: #### 5 6101, 56303 ####[facility] [place] [address], [facility] Chloride molar conc 103 mmol/L Normal 98-107 [facility] Comment on above: Order Comment: No: D o not add to previous draw Performed By: #### 5 6311, 19212 ####[facility] [place] [address], [facility] CO2 molar conc 20 mmol/L Low 21-31 [facility] Comment on above: Order Comment: No: D o not add to previous draw Performed By: #### 5 6101, 44012 ####[facility] [place] [address], [facility] Creatinine mass conc 1.09 mg/dL Normal 0.60-1.20 [facility] Comment on above: Order Comment: No: D o not add to previous draw Performed By: #### 5 6101, 82480 ####[facility] [place] [address], [facility] GFR/1.73 sq M predicted among blacks MDRD vol rate/area (S/P/Bld) 59 ml/min/1.73sq m Abnormal >60 [facility] Comment on above: Order Comment: No: D o not add to previous draw Result Comment: Calc ulation may not be valid for patients over 70 years Performed By: #### 5 6101, 11201 ####[facility] [place] [address], [facility] GFR/1.73 sq M predicted among non-blacks MDRD vol rate/area (S/P/Bld) 48 ml/min/1.73sq m Abnormal >60 [facility] Comment on above: Order Comment: No: D o not add to previous draw Result Comment: Calc ulation may not be valid for patients over 70 years Performed By: #### 5 5621, 73133 ####[facility] [place] [address], [facility] Glucose mass conc 272 mg/dL High 70-100 [facility] Comment on above: Order Comment: No: D o not add to previous draw Performed By: #### 5 610, 03044 ####[facility] [place] [address], [place] Potassium molar conc 3.6 mmol/L Normal 3.5-5.1 [facility] Comment on above: Order Comment: No: D o not add to previous draw Performed By: #### 5 610, 65999 ####[facility] [place] [address], [place] Sodium molar conc 132 mmol/L Low 136-145 [facility] Comment on above: Order Comment: No: D o not add to previous draw Performed By: #### 5 610, 47523 ####[facility] [place] [address], [facility] Urea nitrogen mass conc 10 mg/dL Normal 7-25 [facility] Comment on above: Order Comment: No: D o not add to previous draw Performed By: #### 5 610, 49797 ####[facility] [place] [address], [place] Calcium mass conc 8.4 mg/dL Low 8.6-10.3 [facility] Comment on above: Order Comment: No: D o not add to previous draw Performed By: #### 5 610, 54381 ####[facility] [place] [address], [place] Chloride molar conc 106 mmol/L Normal 98-107 [facility] Comment on above: Order Comment: No: D o not add to previous draw Performed By: #### 5 610, 45542 ####[facility] [place] [address], [place] CO2 molar conc 24 mmol/L Normal 21-31 [facility] Comment on above: Order Comment: No: D o not add to previous draw Performed By: #### 5 610, 84026 ####[facility] [place] [address], [facility] Creatinine mass conc 1.12 mg/dL Normal 0.60-1.20 [facility] Comment on above: Order Comment: No: D o not add to previous draw Performed By: #### 5 610, 18637 ####[facility] [place] [address], [facility] GFR/1.73 sq M predicted among blacks MDRD vol rate/area (S/P/Bld) 57 ml/min/1.73sq m Abnormal >60 [facility] Comment on above: Order Comment: No: D o not add to previous draw Result Comment: Calc ulation may not be valid for patients over 70 years Performed By: #### 5 610, 46409 ####[facility] [place] [address], [facility] GFR/1.73 sq M predicted among non-blacks MDRD vol rate/area (S/P/Bld) 47 ml/min/1.73sq m Abnormal >60 [facility] Comment on above: Order Comment: No: D o not add to previous draw Result Comment: Calc ulation may not be valid for patients over 70 years Performed By: #### 5 9899, 96127 ####[facility] [place] [address], [facility] Glucose mass conc 149 mg/dL High 70-100 [facility] Comment on above: Order Comment: No: D o not add to previous draw Performed By: #### 5 8481, 52684 ####[facility] [place] [address], [facility] Potassium molar conc 3.8 mmol/L Normal 3.5-5.1 [facility] Comment on above: Order Comment: No: D o not add to previous draw Performed By: #### 5 610, 21601 ####[facility] [place] [address], [place] Sodium molar conc 136 mmol/L Normal 136-145 [facility] Comment on above: Order Comment: No: D o not add to previous draw Performed By: #### 5 610, 36556 ####[facility] Urea nitrogen mass conc 12 mg/dL Normal 7-25 [facility] Comment on above: Order Comment: No: D o not add to previous draw Performed By: #### 5 610, 30550 ####[facility] CBC COMPLETE BLOOD COUNTon 0 07-02-2018 Erythrocyte distribution width Auto Ratio (RBC) 13.8 % Normal 11.5-15.0 [facility] Comment on above: Order Comment: No: D o not add to previous [id number]- PATIENT NOT IN ROOM; STILL IN O.R. SHOULD BE RN DRAW, PER RN-TECH LM Performed By: #### 5 610, 22660 ####[facility] Hematocrit Auto Volume Fraction (Bld) 36.9 % Normal 36.0-45.0 [facility] Comment on above: Order Comment: No: D o not add to previous [id number]- PATIENT NOT IN ROOM; STILL IN O.R. SHOULD BE RN DRAW, PER RN-TECH LM Performed By: #### 5 6101, 58919 ####[facility] [facility].[address] Hemoglobin mass conc (Bld) 11.6 g/dL Low 12.0-15.0 [facility] Comment on above: Order Comment: No: D o not add to previous [id number]- PATIENT NOT IN ROOM; STILL IN O.R. SHOULD BE RN DRAW, PER RN-TECH LM Performed By: #### 5 6101, 40076 ####[facility] [facility] [place] [address], [facility] MCH Auto Entitic mass (RBC) 31.1 pg Normal 27.0-33.0 [facility] Comment on above: Order Comment: No: D o not add to previous [id number]- PATIENT NOT IN ROOM; STILL IN O.R. SHOULD BE RN DRAW, PER RN-TECH LM Performed By: #### 5 610, 55678 ####[facility] MCHC Auto mass conc (RBC) 31.4 g/dL Low 32.0-35.0 [facility] Comment on above: Order Comment: No: D o not add to previous [id number]- PATIENT NOT IN ROOM; STILL IN O.R. SHOULD BE RN DRAW, PER RN-TECH LM Performed By: #### 5 610, 67270 ####[place] [address] [address] MCV Auto Entitic volume (RBC) 98.9 fL High 82.0-98.0 [facility] Comment on above: Order Comment: No: D o not add to previous [id number]- PATIENT NOT IN ROOM; STILL IN O.R. SHOULD BE RN DRAW, PER RN-TECH LM Performed By: #### 5 610, 42145 ####[address] Nucleated RBC/100 WBC Ratio (Bld) 0 % Normal 0-0 [facility] Comment on above: Order Comment: No: D o not add to previous [id number]- PATIENT NOT IN ROOM; STILL IN O.R. SHOULD BE RN DRAW, PER RN-TECH LM Performed By: #### 5 610, 65972 ####[place] [address] [address] PLAT CNT 165 10*3/uL Normal 150-400 [facility] Comment on above: Order Comment: No: D o not add to previous [id number]- PATIENT NOT IN ROOM; STILL IN O.R. SHOULD BE RN DRAW, PER RN-TECH LM Performed By: #### 5 610, 41496 ####[facility] RBC Auto #/vol (Bld) 3.73 10*6/uL Low 3.80-5.00 [facility] Comment on above: Order Comment: No: D o not add to previous [id number]- PATIENT NOT IN ROOM; STILL IN O.R. SHOULD BE RN DRAW, PER RN-TECH LM Performed By: #### 5 610, 18120 ####[facility] [facility].[address] WBC Auto #/vol (Bld) 9.50 10*3/uL Normal 4.00-10.60 [facility] Comment on above: Order Comment: No: D o not add to previous [id number]- PATIENT NOT IN ROOM; STILL IN O.R. SHOULD BE RN DRAW, PER RN-TECH LM Performed By: #### 5 610, 36186 ####[facility] [facility].[address] Erythrocyte distribution width Auto Ratio (RBC) 13.9 % Normal 11.5-15.0 [facility] Comment on above: Order Comment: No: D o not add to previous draw Performed By: #### 5 610, 66694 ####[place] [address] [facility].[address] Hematocrit Auto Volume Fraction (Bld) 34.4 % Low 36.0-45.0 [facility] Comment on above: Order Comment: No: D o not add to previous draw Performed By: #### 5 610, 70145 ####[facility] [facility] Hemoglobin mass conc (Bld) 10.8 g/dL Low 12.0-15.0 [facility] Comment on above: Order Comment: No: D o not add to previous draw Performed By: #### 5 610, 39832 ####[facility] [facility] [place] [address], [facility] MCH Auto Entitic mass (RBC) 31.1 pg Normal 27.0-33.0 [facility] Comment on above: Order Comment: No: D o not add to previous draw Performed By: #### 5 610, 99845 ####[facility] MCHC Auto mass conc (RBC) 31.4 g/dL Low 32.0-35.0 [facility] Comment on above: Order Comment: No: D o not add to previous draw Performed By: #### 5 6100, 13321 ####[facility] MCV Auto Entitic volume (RBC) 99.1 fL High 82.0-98.0 [facility] Comment on above: Order Comment: No: D o not add to previous draw Performed By: #### 5 6100, 53405 ####[facility] [facility] Nucleated RBC/100 WBC Ratio (Bld) 0 % Normal 0-0 [facility] Comment on above: Order Comment: No: D o not add to previous draw Performed By: #### 5 6100, 14058 ####[facility] PLAT CNT 232 10*3/uL Normal 150-400 [facility] Comment on above: Order Comment: No: D o not add to previous draw Performed By: #### 5 610, 39100 ####[facility] RBC Auto #/vol (Bld) 3.47 10*6/uL Low 3.80-5.00 [facility] Comment on above: Order Comment: No: D o not add to previous draw Performed By: #### 5 610, 29042 ####[facility] WBC Auto #/vol (Bld) 9.09 10*3/uL Normal 4.00-10.60 [facility] Comment on above: Order Comment: No: D o not add to previous draw Performed By: #### 5 6101, 48541 ####[facility] MAGNESIUM BLOODon 07-02-2018 Magnesium mass conc 1.6 mg/dL Low 1.9-2.7 [facility] Comment on above: Order Comment: No: D o not add to previous draw Performed By: #### 5 6101, 16849 ####[facility] Operative Reporton 8 Operative Report MR#: [id number] [facility] Name: Vidhya Giordano Room #: 3AB [id number] Discharge Date: Birthdate: 1940 OPERATIVE REPORTDATE OF [...] The fascia wasclosed by interrupted 0 PDS bbefkp-kg-mphpc suture. The skin was closed byskin jd. The Prevena wound VAC was applied. Operation was completedwithout complication.I was present during the entire operation.Electronically Signed by:Meg Abebe M.D. 07/07/2018 12:44 P Meg Abebe M.D.Date Dict: 07/02/2018/07:09 P/Meg Abebe M.D.Date Trans: 07/02/2018 09:51 P/giovannyoDWalt_JN:[id number] c: Kalin aSntos D.O. [address] [facility] [address] Normal [facility] PHOSPHORUS BLOODon 8 Phosphate mass conc 1.9 mg/dL Low 2.5-5.0 [facility] Comment on above: Order Comment: No: D o not add to previous [id number]- CHANGED TO LAB DRAW Performed By: #### 8 5499 ####[facility] [facility] [address] [place] [address], [facility] POC GLUCOSE LABon 07-02-2018 Glucose mass conc 246 mg/dL High 70-100 [facility] Comment on above: Performed By: #### 5 6101, 69455 ####[facility] [facility] [facility] [place] [address], [place] Glucose mass conc 145 mg/dL High 70-100 [facility] Comment on above: Performed By: #### 5 610, 09040 ####[facility] [place] [address], [place] Glucose mass conc 140 mg/dL High 70-100 [facility] Comment on above: Performed By: #### 5 610, 29461 ####[facility] [place] [address], [place] Glucose mass conc 163 mg/dL High 70-100 [facility] Comment on above: Performed By: #### 5 610, 38507 ####[facility] [place] [address], [place] TYPE AND SCREENon 07-02-2018 ABO INTERPRETATION A Normal [facility] Comment on above: Performed By: #### 5 610, 79170 ####[facility] [place] [address], [place] RH INTERPRETATION Positive Normal [facility] Comment on above: Performed By: #### 5 610, 70901 ####[facility] [place] [address], [place] POC GLUCOSE LABon 07-01-2018 Glucose mass conc 137 mg/dL High 70-100 [facility] Comment on above: Performed By: #### 5 6100, 16134 ####[facility] [place] [address], [place] Glucose mass conc 178 mg/dL High 70-100 [facility] Comment on above: Performed By: #### 5 610, 90517 ####[facility] [place] [address], [place] Glucose mass conc 119 mg/dL High 70-100 [facility] Comment on above: Performed By: #### 5 610, 23353 ####[facility] [place] [address], [facility] Glucose mass conc 95 mg/dL Normal 70-100 [facility] Comment on above: Performed By: #### 5 610, 31036 ####[facility] [place] [address], [facility] BASIC METABOLIC PANELon 08-2 Calcium mass conc 8.3 mg/dL Low 8.6-10.3 [facility] Comment on above: Order Comment: No: D o not add to previous draw Performed By: #### 5 610, 40962 ####[facility] [place] [address], [facility] Chloride molar conc 110 mmol/L High 98-107 [facility] Comment on above: Order Comment: No: D o not add to previous draw Performed By: #### 5 610, 58166 ####[facility] [place] [address], [facility] CO2 molar conc 23 mmol/L Normal 21-31 [facility] Comment on above: Order Comment: No: D o not add to previous draw Performed By: #### 5 610, 52160 ####[facility] [place] [address], [facility] Creatinine mass conc 1.08 mg/dL Normal 0.60-1.20 [facility] Comment on above: Order Comment: No: D o not add to previous draw Performed By: #### 5 610, 36685 ####[facility] [place] [address], [facility] GFR/1.73 sq M predicted among blacks MDRD vol rate/area (S/P/Bld) 59 ml/min/1.73sq m Abnormal >60 [facility] Comment on above: Order Comment: No: D o not add to previous draw Result Comment: Calc ulation may not be valid for patients over 70 years Performed By: #### 5 6101, 99597 ####[facility] [place] [address], [facility] GFR/1.73 sq M predicted among non-blacks MDRD vol rate/area (S/P/Bld) 49 ml/min/1.73sq m Abnormal >60 [facility] Comment on above: Order Comment: No: D o not add to previous draw Result Comment: Calc ulation may not be valid for patients over 70 years Performed By: #### 5 6101, 94671 ####[facility] [place] [address], [facility] Glucose mass conc 148 mg/dL High 70-100 [facility] Comment on above: Order Comment: No: D o not add to previous draw Performed By: #### 5 610, 31226 ####[facility] [place] [address], [facility] Potassium molar conc 3.9 mmol/L Normal 3.5-5.1 [facility] Comment on above: Order Comment: No: D o not add to previous draw Performed By: #### 5 6101, 75126 ####[facility] [place] [address], [facility] Sodium molar conc 139 mmol/L Normal 136-145 [facility] Comment on above: Order Comment: No: D o not add to previous draw Performed By: #### 5 6101, 30372 ####[facility] [place] [address], [facility] Urea nitrogen mass conc 14 mg/dL Normal 7-25 [facility] Comment on above: Order Comment: No: D o not add to previous draw Performed By: #### 5 6101, 89820 ####[facility] [place] [address], [facility] CBC COMPLETE BLOOD COUNTon 0 - Erythrocyte distribution width Auto Ratio (RBC) 14.0 % Normal 11.5-15.0 [facility] Comment on above: Order Comment: No: D o not add to previous draw Performed By: #### 5 610, 07561 ####[facility] Hematocrit Auto Volume Fraction (Bld) 34.0 % Low 36.0-45.0 [facility] Comment on above: Order Comment: No: D o not add to previous draw Performed By: #### 5 610, 51539 ####[facility] Hemoglobin mass conc (Bld) 10.7 g/dL Low 12.0-15.0 [facility] Comment on above: Order Comment: No: D o not add to previous draw Performed By: #### 5 610, 92067 ####[facility] [facility] MCH Auto Entitic mass (RBC) 31.6 pg Normal 27.0-33.0 [facility] Comment on above: Order Comment: No: D o not add to previous draw Performed By: #### 5 6100, 93839 ####[facility] [facility] MCHC Auto mass conc (RBC) 31.5 g/dL Low 32.0-35.0 [facility] Comment on above: Order Comment: No: D o not add to previous draw Performed By: #### 5 610, 21492 ####[facility] [facility].[address] MCV Auto Entitic volume (RBC) 100.3 fL High 82.0-98.0 [facility] Comment on above: Order Comment: No: D o not add to previous draw Performed By: #### 5 610, 14384 ####[facility] Nucleated RBC/100 WBC Ratio (Bld) 0 % Normal 0-0 [facility] Comment on above: Order Comment: No: D o not add to previous draw Performed By: #### 5 610, 66453 ####[facility] [place] [address], [facility] PLAT CNT 213 10*3/uL Normal 150-400 [facility] Comment on above: Order Comment: No: D o not add to previous draw Performed By: #### 5 610, 34814 ####[facility] [place] [address], [facility] RBC Auto #/vol (Bld) 3.39 10*6/uL Low 3.80-5.00 [facility] Comment on above: Order Comment: No: D o not add to previous draw Performed By: #### 5 610, 75580 ####[facility] [place] [address], [facility] WBC Auto #/vol (Bld) 11.66 10*3/uL High 4.00-10.60 [facility] Comment on above: Order Comment: No: D o not add to previous draw Performed By: #### 5 6101, 84715 ####[facility] [place] [address], [facility] MAGNESIUM BLOODon 06-30-2018 Magnesium mass conc 2.1 mg/dL Normal 1.9-2.7 [facility] Comment on above: Order Comment: No: D o not add to previous draw Performed By: #### 5 610, 37393 ####[facility] [place] [address], [facility] PHOSPHORUS BLOODon 8 Phosphate mass conc 2.1 mg/dL Low 2.5-5.0 [facility] Comment on above: Order Comment: No: D o not add to previous draw Performed By: #### 5 610, 33277 ####[facility] [place] [address], [facility] POC GLUCOSE LABon 06-30-2018 Glucose mass conc 160 mg/dL High 70-100 [facility] Comment on above: Performed By: #### 5 6101, 74752 ####[facility] [place] [address], [facility] [facility] Glucose mass conc 193 mg/dL High 70-100 [facility] Comment on above: Performed By: #### 5 6101, [id number] ####[facility] [place] [address], [facility] Glucose mass conc 134 mg/dL High 70-100 [facility] Comment on above: Performed By: #### 8 5499 ####[facility] [place] [address], [facility] Glucose mass conc 132 mg/dL High 70-100 [facility] Comment on above: Performed By: #### 8 5499 ####[facility] [place] [address], [facility] BASIC METABOLIC PANELon 06-09 Calcium mass conc 8.7 mg/dL Normal 8.6-10.3 [facility] Comment on above: Order Comment: No: D o not add to previous draw Performed By: #### 8 [id number] ####[facility] [place] [address], [facility] Chloride molar conc 110 mmol/L High 98-107 [facility] Comment on above: Order Comment: No: D o not add to previous draw Performed By: #### 8 [id number] ####[facility] [place] [address], [facility] CO2 molar conc 24 mmol/L Normal 21-31 [facility] Comment on above: Order Comment: No: D o not add to previous draw Performed By: #### 8 5499 ####[facility] [place] [address], [facility] Creatinine mass conc 1.25 mg/dL High 0.60-1.20 [facility] Comment on above: Order Comment: No: D o not add to previous draw Performed By: #### 8 5499 ####[facility] [facility] [place] [address], [facility] GFR/1.73 sq M predicted among blacks MDRD vol rate/area (S/P/Bld) 50 ml/min/1.73sq m Abnormal >60 [facility] Comment on above: Order Comment: No: D o not add to previous draw Result Comment: Calc ulation may not be valid for patients over 70 years Performed By: #### 8 5499 ####[facility] [facility] [place] [address], [facility] GFR/1.73 sq M predicted among non-blacks MDRD vol rate/area (S/P/Bld) 42 ml/min/1.73sq m Abnormal >60 [facility] Comment on above: Order Comment: No: D o not add to previous draw Result Comment: Calc ulation may not be valid for patients over 70 years Performed By: #### 8 5499 ####[facility] [facility] [place] [address], [facility] Glucose mass conc 183 mg/dL High 70-100 [facility] Comment on above: Order Comment: No: D o not add to previous draw Performed By: #### 8 5499 ####[facility] [facility] [place] [address], [facility] Potassium molar conc 4.0 mmol/L Normal 3.5-5.1 [facility] Comment on above: Order Comment: No: D o not add to previous draw Performed By: #### 8 5499 ####[facility] [facility] [place] [address], [place] Sodium molar conc 139 mmol/L Normal 136-145 [facility] Comment on above: Order Comment: No: D o not add to previous draw Performed By: #### 8 5499 ####[facility] [facility].[address] Urea nitrogen mass conc 16 mg/dL Normal 7-25 [facility] Comment on above: Order Comment: No: D o not add to previous draw Performed By: #### 8 [id number] ####[facility] [facility].[address] CBC COMPLETE BLOOD COUNTon 06-29-2018 Erythrocyte distribution width Auto Ratio (RBC) 14.2 % Normal 11.5-15.0 [facility] Comment on above: Order Comment: No: D o not add to previous draw Performed By: #### 8 [id number] ####[facility] Hematocrit Auto Volume Fraction (Bld) 36.9 % Normal 36.0-45.0 [facility] Comment on above: Order Comment: No: D o not add to previous draw Performed By: #### 8 5499 ####[facility] [facility].[address] Hemoglobin mass conc (Bld) 11.5 g/dL Low 12.0-15.0 [facility] Comment on above: Order Comment: No: D o not add to previous draw Performed By: #### 8 5499 ####[facility] [facility].[address] MCH Auto Entitic mass (RBC) 31.1 pg Normal 27.0-33.0 [facility] Comment on above: Order Comment: No: D o not add to previous draw Performed By: #### 8 [id number] ####[facility] [facility].[address] MCHC Auto mass conc (RBC) 31.2 g/dL Low 32.0-35.0 [facility] Comment on above: Order Comment: No: D o not add to previous draw Performed By: #### 8 5499 ####[facility] MCV Auto Entitic volume (RBC) 99.7 fL High 82.0-98.0 [facility] Comment on above: Order Comment: No: D o not add to previous draw Performed By: #### 8 5499 ####[facility] [facility].[address] Nucleated RBC/100 WBC Ratio (Bld) 0 % Normal 0-0 [facility] Comment on above: Order Comment: No: D o not add to previous draw Performed By: #### 8 5499 ####[facility] [facility].[address] PLAT CNT 228 10*3/uL Normal 150-400 [facility] Comment on above: Order Comment: No: D o not add to previous draw Performed By: #### 8 5499 ####[facility] RBC Auto #/vol (Bld) 3.70 10*6/uL Low 3.80-5.00 [facility] Comment on above: Order Comment: No: D o not add to previous draw Performed By: #### 8 5499 ####[facility] [facility].[address] WBC Auto #/vol (Bld) 14.41 10*3/uL High 4.00-10.60 [facility] Comment on above: Order Comment: No: D o not add to previous draw Performed By: #### 8 5499 ####[facility] [facility].[address] MAGNESIUM BLOODon 06-29-2018 Magnesium mass conc 2.5 mg/dL Normal 1.9-2.7 [facility] Comment on above: Order Comment: No: D o not add to previous draw Performed By: #### 8 5499 ####[facility] [facility] [place] [address], [facility] PHOSPHORUS BLOODon 8 Phosphate mass conc 1.7 mg/dL Low 2.5-5.0 [facility] Comment on above: Order Comment: No: D o not add to previous draw Performed By: #### 8 5499 ####[facility] [place] [address].[place] [address], [facility] POC GLUCOSE LABon 06-29-2018 Glucose mass conc 134 mg/dL High 70-100 [facility] Comment on above: Performed By: #### 8 5499 ####[facility] [place] [address], [facility] Glucose mass conc 168 mg/dL High 70-100 [facility] Comment on above: Performed By: #### 8 5499 ####[facility] [place] [address], [facility] Glucose mass conc 169 mg/dL High 70-100 [facility] Comment on above: Performed By: #### 0 0121 ####[address] [address], [facility] Glucose mass conc 180 mg/dL High 70-100 [facility] Comment on above: Performed By: #### 0 0121 ####[address] [address], [facility] PORTABLE CHEST 1 VIEWon 06-09 PORTABLE CHEST 1 VIEW [facility] [address] [place] [address] Stacy ent Name: VIDHYA GIORDANO : 1940Sex: FAge: Race: WhiteMRN: [id number]. Location: [id number] Status: IVisit #: [id number] Date: 06/29/2018 7:00:00 AMCompleted Date: 06/29/2018 07:23 AMRequesting Provider: MARLIN DELGADO Attending Provider: MEG ABEBE Report Copy To: Signs & Symptoms: Elevated WBCHistory: Patient history not availableComments: R/O PneumoniaExam: PORTABLE CHEST 1 VIEWAccession #: [id number] ===PORTABLE CHEST 1 VIEW 06/29/2018 7:23 AM [...] findings. Electronically signed by:Rhoda Nicole. Transcribed by: [email or web address], User Resident: MARITA MCKEONElectronically Signed by: RHODA NICOLE @ 06/29/2018 09:45 AMI personally read this/these film(s) with this resident Normal [facility] Comment on above: Order Comment: R/O P neumonia *BLOOD CULTUREon 06-28-2018 Bacteria identified in Blood by Culture Clinical Report: (D) Specimen: BLOOD CULTURE Collected: 06/28/2018 18:45 Status: Final Last Updated: 07/04/2018 07:52 CULT RES (Final) No Growth Day 5 Normal [facility] Comment on above: Performed By: #### 0 0121 ####[facility] [facility].[address] BASIC METABOLIC PANELon 06-09 Calcium mass conc 8.6 mg/dL Normal 8.6-10.3 [facility] Comment on above: Order Comment: No: D o not add to previous drawNo collection time noted on specimen or requisition. The collection timerecorded is the time of receipt in the lab. Performed By: #### 0 0121 ####[facility] [facility] [place] [address], [facility] Chloride molar conc 106 mmol/L Normal 98-107 [facility] Comment on above: Order Comment: No: D o not add to previous drawNo collection time noted on specimen or requisition. The collection timerecorded is the time of receipt in the lab. Performed By: #### 0 0121 ####[facility] [facility] [place] [address], [facility] CO2 molar conc 26 mmol/L Normal 21-31 [facility] Comment on above: Order Comment: No: D o not add to previous drawNo collection time noted on specimen or requisition. The collection timerecorded is the time of receipt in the lab. Performed By: #### 0 0121 ####[facility] [facility] [place] [address], [facility] Creatinine mass conc 1.50 mg/dL High 0.60-1.20 [facility] Comment on above: Order Comment: No: D o not add to previous drawNo collection time noted on specimen or requisition. The collection timerecorded is the time of receipt in the lab. Performed By: #### 0 0121 ####[facility] [place] [address], [facility] GFR/1.73 sq M predicted among blacks MDRD vol rate/area (S/P/Bld) 41 ml/min/1.73sq m Abnormal >60 [facility] Comment on above: Order Comment: No: D o not add to previous drawNo collection time noted on specimen or requisition. The collection timerecorded is the time of receipt in the lab. Result Comment: Calc ulation may not be valid for patients over 70 years Performed By: #### 0 0121 ####[facility] [facility] [place] [address], [facility] GFR/1.73 sq M predicted among non-blacks MDRD vol rate/area (S/P/Bld) 33 ml/min/1.73sq m Abnormal >60 [facility] Comment on above: Order Comment: No: D o not add to previous drawNo collection time noted on specimen or requisition. The collection timerecorded is the time of receipt in the lab. Result Comment: Calc ulation may not be valid for patients over 70 years Performed By: #### 0 0121 ####[place] [address] [place] [address], [facility] Glucose mass conc 170 mg/dL High 70-100 [facility] Comment on above: Order Comment: No: D o not add to previous drawNo collection time noted on specimen or requisition. The collection timerecorded is the time of receipt in the lab. Performed By: #### 0 0121 ####[address] Potassium molar conc 4.0 mmol/L Normal 3.5-5.1 [facility] Comment on above: Order Comment: No: D o not add to previous drawNo collection time noted on specimen or requisition. The collection timerecorded is the time of receipt in the lab. Performed By: #### 0 0121 ####[place] [address] Sodium molar conc 137 mmol/L Normal 136-145 [facility] Comment on above: Order Comment: No: D o not add to previous drawNo collection time noted on specimen or requisition. The collection timerecorded is the time of receipt in the lab. Performed By: #### 0 0121 ####[place] [address] Urea nitrogen mass conc 23 mg/dL Normal 7-25 [facility] Comment on above: Order Comment: No: D o not add to previous drawNo collection time noted on specimen or requisition. The collection timerecorded is the time of receipt in the lab. Performed By: #### 0 0121 ####[address] CBC W/DIFFon 06-28-2018 ABS BASOPHILS 0.0 10*3/uL Normal 0.0-0.2 [facility] Comment on above: Order Comment: No: D o not add to previous drawNo collection time noted on specimen or requisition. The collection timerecorded is the time of receipt in the lab. Performed By: #### 0 0121 ####[address] ABS IMM GRANS 0.1 10*3/uL Normal 0.0-0.2 [facility] Comment on above: Order Comment: No: D o not add to previous drawNo collection time noted on specimen or requisition. The collection timerecorded is the time of receipt in the lab. Performed By: #### 0 0121 ####[address] ABS NEUTROPHILS 9.5 10*3/uL High 1.6-7.6 [facility] Comment on above: Order Comment: No: D o not add to previous drawNo collection time noted on specimen or requisition. The collection timerecorded is the time of receipt in the lab. Performed By: #### 0 0121 ####[facility] Basophils Auto #/vol (Bld) 0.2 % Normal 0.0-1.0 [facility] Comment on above: Order Comment: No: D o not add to previous drawNo collection time noted on specimen or requisition. The collection timerecorded is the time of receipt in the lab. Performed By: #### 0 0121 ####[facility] Eosinophils Auto #/vol (Bld) 0.0 10*3/uL Normal 0.0-0.5 [facility] Comment on above: Order Comment: No: D o not add to previous drawNo collection time noted on specimen or requisition. The collection timerecorded is the time of receipt in the lab. Performed By: #### 0 0121 ####[place] [address] Eosinophils/100 WBC Auto (Bld) 0.1 % Normal 0.0-6.0 [facility] Comment on above: Order Comment: No: D o not add to previous drawNo collection time noted on specimen or requisition. The collection timerecorded is the time of receipt in the lab. Performed By: #### 0 0121 ####[facility] Erythrocyte distribution width Auto Ratio (RBC) 14.0 % Normal 11.5-15.0 [facility] Comment on above: Order Comment: No: D o not add to previous drawNo collection time noted on specimen or requisition. The collection timerecorded is the time of receipt in the lab. Performed By: #### 0 0121 ####[address] Hematocrit Auto Volume Fraction (Bld) 35.7 % Low 36.0-45.0 [facility] Comment on above: Order Comment: No: D o not add to previous drawNo collection time noted on specimen or requisition. The collection timerecorded is the time of receipt in the lab. Performed By: #### 0 0121 ####[facility] Hemoglobin mass conc (Bld) 11.9 g/dL Low 12.0-15.0 [facility] Comment on above: Order Comment: No: D o not add to previous drawNo collection time noted on specimen or requisition. The collection timerecorded is the time of receipt in the lab. Performed By: #### 0 0121 ####[place] [address] IMMATURE GRANS 0.4 % Normal 0.0-1.0 [facility] Comment on above: Order Comment: No: D o not add to previous drawNo collection time noted on specimen or requisition. The collection timerecorded is the time of receipt in the lab. Performed By: #### 0 0121 ####[address] Lymphocytes Auto #/vol (Bld) 2.5 10*3/uL Normal 1.2-4.0 [facility] Comment on above: Order Comment: No: D o not add to previous drawNo collection time noted on specimen or requisition. The collection timerecorded is the time of receipt in the lab. Performed By: #### 0 0121 ####[address] Lymphocytes/100 WBC Auto (Bld) 18.4 % Low 20.0-45.0 [facility] Comment on above: Order Comment: No: D o not add to previous drawNo collection time noted on specimen or requisition. The collection timerecorded is the time of receipt in the lab. Performed By: #### 0 0121 ####[facility] MCH Auto Entitic mass (RBC) 31.7 pg Normal 27.0-33.0 [facility] Comment on above: Order Comment: No: D o not add to previous drawNo collection time noted on specimen or requisition. The collection timerecorded is the time of receipt in the lab. Performed By: #### 0 0121 ####[facility] MCHC Auto mass conc (RBC) 33.3 g/dL Normal 32.0-35.0 [facility] Comment on above: Order Comment: No: D o not add to previous drawNo collection time noted on specimen or requisition. The collection timerecorded is the time of receipt in the lab. Performed By: #### 0 0121 ####[facility] MCV Auto Entitic volume (RBC) 95.2 fL Normal 82.0-98.0 [facility] Comment on above: Order Comment: No: D o not add to previous drawNo collection time noted on specimen or requisition. The collection timerecorded is the time of receipt in the lab. Performed By: #### 0 0121 ####[place] [address] Monocytes Auto #/vol (Bld) 1.3 10*3/uL High 0.1-1.0 [facility] Comment on above: Order Comment: No: D o not add to previous drawNo collection time noted on specimen or requisition. The collection timerecorded is the time of receipt in the lab. Performed By: #### 0 0121 ####[facility] MONOS 10.0 % Normal 5.0-12.0 [facility] Comment on above: Order Comment: No: D o not add to previous drawNo collection time noted on specimen or requisition. The collection timerecorded is the time of receipt in the lab. Performed By: #### 0 0121 ####[facility] Neutrophils/100 WBC Auto (Bld) 70.9 % Normal 40.0-72.0 [facility] Comment on above: Order Comment: No: D o not add to previous drawNo collection time noted on specimen or requisition. The collection timerecorded is the time of receipt in the lab. Performed By: #### 0 0121 ####[facility] Nucleated RBC/100 WBC Ratio (Bld) 0 % Normal 0-0 [facility] Comment on above: Order Comment: No: D o not add to previous drawNo collection time noted on specimen or requisition. The collection timerecorded is the time of receipt in the lab. Performed By: #### 0 0121 ####[facility] PLAT CNT 236 10*3/uL Normal 150-400 [facility] Comment on above: Order Comment: No: D o not add to previous drawNo collection time noted on specimen or requisition. The collection timerecorded is the time of receipt in the lab. Performed By: #### 0 0121 ####[facility] RBC Auto #/vol (Bld) 3.75 10*6/uL Low 3.80-5.00 [facility] Comment on above: Order Comment: No: D o not add to previous drawNo collection time noted on specimen or requisition. The collection timerecorded is the time of receipt in the lab. Performed By: #### 0 0121 ####[facility] [facility].[address] WBC Auto #/vol (Bld) 13.43 10*3/uL High 4.00-10.60 [facility] Comment on above: Order Comment: No: D o not add to previous drawNo collection time noted on specimen or requisition. The collection timerecorded is the time of receipt in the lab. Performed By: #### 0 0121 ####[facility] [facility] [place] [address], [facility] MAGNESIUM BLOODon 06-28-2018 Magnesium mass conc 1.7 mg/dL Low 1.9-2.7 [facility] Comment on above: Order Comment: No: D o not add to previous drawNo collection time noted on specimen or requisition. The collection timerecorded is the time of receipt in the lab. Performed By: #### 1 0070, [id number], [id number] ####[facility] [facility] [place] [address], [facility] PHOSPHORUS BLOODon 8 Phosphate mass conc 3.4 mg/dL Normal 2.5-5.0 [facility] Comment on above: Order Comment: No: D o not add to previous drawNo collection time noted on specimen or requisition. The collection timerecorded is the time of receipt in the lab. Performed By: #### 1 0070, [id number], [id number] ####[facility] [facility] [place] [address], [facility] POC GLUCOSE LABon 06-28-2018 Glucose mass conc 166 mg/dL High 70-100 [facility] Comment on above: Performed By: #### 0 0121 ####[facility] [facility] [place] [address], [facility] Glucose mass conc 168 mg/dL High 70-100 [facility] Comment on above: Performed By: #### 0 0121 ####[facility] [facility] [place] [address], [facility] Glucose mass conc 141 mg/dL High 70-100 [facility] Comment on above: Performed By: #### 0 0121 ####[facility] [facility] [place] [address], [facility] Glucose mass conc 180 mg/dL High 70-100 [facility] Comment on above: Performed By: #### 8 5499 ####[facility] [place] [address], [facility] PORTABLE CHEST 1 VIEWon 06-09 PORTABLE CHEST 1 VIEW [facility] [address] [place] [id number] Stacy ent Name: VIDHYA GIORDANO : 1940Sex: FAge: Race: WhiteMRN: [id number]. Location: [id number] Status: IVisit #: [id number] Date: 06/28/2018 6:35:00 PMCompleted Date: 06/28/2018 07:38 PMRequesting Provider: VINICIO REAVES Attending Provider: MEG ABEBE Report Copy To: Signs & Symptoms: FeverHistory: Patient history not availableComments: R/O InfiltratesExam: PORTABLE CHEST 1 VIEWAccession #: [id number] ===PORTABLE CHEST 1 VIEW 06/28/2018 7:38 PM [...] findings. Electronically signed by:Rhoda Nicole. Transcribed by: [email or web address], User Resident: MARITA MCKEONElectronically Signed by: RHODA NICOLE @ 06/29/2018 09:22 AMI personally read this/these film(s) with this resident Normal [facility] Comment on above: Order Comment: R/O I nfiltrates URINALYSIS REFLEXon 06-28-20 18 APPEARANCE CLEAR Normal CLEAR [facility] Comment on above: Order Comment: No: D o not add to previous drawCriteria for reflexing a culture was not met. Please call the lab [email or web address] within 24 hours of collection time if culture is needed Performed By: #### 0 0121 ####[facility] [facility] [place] [address], [facility] BILIRUBIN Negative Normal NEGATIVE [facility] Comment on above: Order Comment: No: D o not add to previous drawCriteria for reflexing a culture was not met. Please call the lab [phone] within 24 hours of collection time if culture is needed Performed By: #### 0 0121 ####[facility] [place] [address], [facility] BLOOD Negative Normal NEGATIVE [facility] Comment on above: Order Comment: No: D o not add to previous drawCriteria for reflexing a culture was not met. Please call the lab [phone] within 24 hours of collection time if culture is needed Performed By: #### 0 0121 ####[facility] [place] [address], [place] COLOR YELLOW Normal YELLOW [facility] Comment on above: Order Comment: No: D o not add to previous drawCriteria for reflexing a culture was not met. Please call the lab [id number] within 24 hours of collection time if culture is needed Performed By: #### 0 0121 ####[facility] [place] [address], [place] GLUCOSE Negative Normal NEGATIVE [facility] Comment on above: Order Comment: No: D o not add to previous drawCriteria for reflexing a culture was not met. Please call the lab [id number] within 24 hours of collection time if culture is needed Performed By: #### 0 0121 ####[facility] [place] [address], [facility] KETONE Negative Normal NEGATIVE [facility] Comment on above: Order Comment: No: D o not add to previous drawCriteria for reflexing a culture was not met. Please call the lab [phone] within 24 hours of collection time if culture is needed Performed By: #### 0 0121 ####[facility] [place] [address], [place] Negative Normal NEGATIVE [facility] Comment on above: Order Comment: No: D o not add to previous drawCriteria for reflexing a culture was not met. Please call the lab [phone] within 24 hours of collection time if culture is needed Performed By: #### 0 0121 ####[facility] [place] [address], [place] MICRO NOT DONE negative chemical reactions unless requested in original order Normal [facility] Comment on above: Order Comment: No: D o not add to previous drawCriteria for reflexing a culture was not met. Please call the lab [id number] within 24 hours of collection time if culture is needed Performed By: #### 0 0121 ####[facility] [address], [facility] NITRITE Negative Normal NEGATIVE [facility] Comment on above: Order Comment: No: D o not add to previous drawCriteria for reflexing a culture was not met. Please call the lab [id number] within 24 hours of collection time if culture is needed Performed By: #### 0 0121 ####[facility] [facility].[address] PH 5.0 Normal 5.0-8.0 [facility] Comment on above: Order Comment: No: D o not add to previous drawCriteria for reflexing a culture was not met. Please call the lab [id number] within 24 hours of collection time if culture is needed Performed By: #### 0 0121 ####[facility] Protein mass conc Negative Normal NEGATIVE [facility] Comment on above: Order Comment: No: D o not add to previous drawCriteria for reflexing a culture was not met. Please call the lab [id number] within 24 hours of collection time if culture is needed Performed By: #### 0 0121 ####[facility] SPEC GRAV 1.013 Low 1.015-1.020 [facility] Comment on above: Order Comment: No: D o not add to previous drawCriteria for reflexing a culture was not met. Please call the lab [id number] within 24 hours of collection time if culture is needed Performed By: #### 0 0121 ####[facility] [facility].[address] APTTon 06-27-2018 aPTT Coag time (Bld) 33.7 s Normal 25.0-35.0 [facility] Comment on above: Result Comment: ALL RESULTS [...] THIS PURPOSE. Performed By: #### 5 6101, [id number] ####[facility] [facility].[address] POC GLUCOSE LABon 06-27-2018 Glucose mass conc 164 mg/dL High 70-100 [facility] Comment on above: Performed By: #### 8 5499 ####[facility] [facility].[address] Glucose mass conc 194 mg/dL High 70-[address] [facility] Comment on above: Performed By: #### 8 5499 ####[facility] [facility].[address] Glucose mass conc 115 mg/dL High 70-100 [facility] Comment on above: Performed By: #### 8 5499 ####[facility] [facility].[address] PROTHROMBIN TIMEon 8 INR Coag RelTime (PPP) 1.07 {INR} Normal 0.91-1.[address] [facility] Comment on above: Result Comment: ACCC P RECOMMENDED INR FOR WARFARIN THERAPY CONDITION INRPROPHYLAXIS OF VENOUS THROMBOSIS 2-3(HIGH-RISK SURGERY)TREATMENT OF VENOUS THROMBOSIS 2-3TREATMENT OF PULMONARY EMBOLISM 2-3PREVENTION OF SYSTEMIC EMBOLISM: 2-3 ACUTE MYOCARDIAL INFARCTION TISSUE HEART VALVES VALVULAR HEART DISEASE ATRIAL FIBRILLATION RECURRENT SYSTEMIC EMBOLISMMECHANICAL HEART VALVE 2.5-3.5 FROM: ORAL ANTICOAGULANTS. MECHANISM OF ACTION, CLINICALEFFECTIVENESS, AND OPTIMAL THERAPEUTIC RANGE. [id number]. Performed By: #### 5 6101, 79935 ####[facility] Prothrombin time (PT) Coag time (PPP) 13.9 s Normal 12.3-14.8 [facility] Comment on above: Result Comment: ALL RESULTS MUST BE INTERPRETED WITH RESPECT TO BLOOD DRAWING ARTIFACTOR DILUTION ERROR OF ANTICOAGULANT AT THE TIME OF SAMPLING. Performed By: #### 5 6101, 99639 ####[facility] CBC W/DIFFon 05-24-2018 ABS BASOPHILS 0.1 10*3/uL Normal 0.0-0.2 [facility] Comment on above: Performed By: #### 5 0103 ####[facility] ABS IMM GRANS 0.1 10*3/uL Normal 0.0-0.2 [facility] Comment on above: Performed By: #### 5 0103 ####[place] [address] [address] ABS NEUTROPHILS 4.6 10*3/uL Normal 1.6-7.6 [facility] Comment on above: Performed By: #### 5 0103 ####[facility] Basophils Auto #/vol (Bld) 0.7 % Normal 0.0-1.0 [facility] Comment on above: Performed By: #### 5 0103 ####[facility] [facility].[address] Eosinophils Auto #/vol (Bld) 0.5 10*3/uL Normal 0.0-0.5 [facility] Comment on above: Performed By: #### 5 0103 ####[facility] [facility].[address] Eosinophils/100 WBC Auto (Bld) 5.2 % Normal 0.0-6.0 [facility] Comment on above: Performed By: #### 3 ####[facility] [facility].[address] Erythrocyte distribution width Auto Ratio (RBC) 13.8 % Normal 11.5-15.0 [facility] Comment on above: Performed By: #### 3 ####[facility] Hematocrit Auto Volume Fraction (Bld) 40.0 % Normal 36.0-45.0 [facility] Comment on above: Performed By: #### 3 ####[facility] [facility].[address] Hemoglobin mass conc (Bld) 13.0 g/dL Normal 12.0-15.0 [facility] Comment on above: Performed By: #### 5 3 ####[facility] IMMATURE GRANS 0.6 % Normal 0.0-1.0 [facility] Comment on above: Performed By: #### 5 3 ####[facility] [facility].[address] Lymphocytes Auto #/vol (Bld) 3.1 10*3/uL Normal 1.2-4.0 [facility] Comment on above: Performed By: #### 5 3 ####[facility] [facility] Lymphocytes/100 WBC Auto (Bld) 33.5 % Normal 20.0-45.0 [facility] Comment on above: Performed By: #### 0103 ####[facility] MCH Auto Entitic mass (RBC) 31.9 pg Normal 27.0-33.0 [facility] Comment on above: Performed By: #### 3 ####[facility] MCHC Auto mass conc (RBC) 32.5 g/dL Normal 32.0-35.0 [facility] Comment on above: Performed By: #### 3 ####[facility] MCV Auto Entitic volume (RBC) 98.0 fL Normal 82.0-98.0 [facility] Comment on above: Performed By: #### 3 ####[facility] Monocytes Auto #/vol (Bld) 1.0 10*3/uL Normal 0.1-1.0 [facility] Comment on above: Performed By: #### 3 ####[facility] MONOS 10.3 % Normal 5.0-12.0 [facility] Comment on above: Performed By: #### 5 3 ####[facility] Neutrophils/100 WBC Auto (Bld) 49.7 % Normal 40.0-72.0 [facility] Comment on above: Performed By: #### 3 ####[facility] Nucleated RBC/100 WBC Ratio (Bld) 0 % Normal 0-0 [facility] Comment on above: Performed By: #### 3 ####[facility] [address], [facility] PLAT CNT 258 10*3/uL Normal 150-400 [facility] Comment on above: Performed By: #### 102 ####[facility] [facility] [place] [address], [facility] RBC Auto #/vol (Bld) 4.08 10*6/uL Normal 3.80-5.00 [facility] Comment on above: Performed By: #### 5 010 ####[facility] [facility] [place] [address], [facility] WBC Auto #/vol (Bld) 9.35 10*3/uL Normal 4.00-10.60 [facility] Comment on above: Performed By: #### 102 ####[facility] [facility].[address] COMP METABOLIC PANELon 05-24 Albumin mass conc 4.1 g/dL Normal 3.5-5.7 [facility] Comment on above: Performed By: #### 0 0121 ####[place] [address] [facility].[address] ALKALINE PHOSPH 64 IU/L Normal 34-104 [facility] Comment on above: Performed By: #### 0 0121 ####[facility] [facility].[address] ALT enzyme act/vol 26 U/L Normal 7-52 [facility] Comment on above: Performed By: #### 0 0121 ####[place] [address] [facility].[address] AST enzyme act/vol 32 U/L Normal 13-39 [facility] Comment on above: Performed By: #### 0 0121 ####[address] Bilirubin mass conc 0.4 mg/dL Normal 0.3-1.0 [facility] Comment on above: Performed By: #### 0 0121 ####[facility] [facility] [place] [address], [facility] Calcium mass conc 10.2 mg/dL Normal 8.6-10.3 [facility] Comment on above: Performed By: #### 0 0121 ####[facility] [facility] [place] [address], [facility] Chloride molar conc 102 mmol/L Normal 98-107 [facility] Comment on above: Performed By: #### 0 0121 ####[facility] [facility] [place] [address], [facility] CO2 molar conc 24 mmol/L Normal 21-31 [facility] Comment on above: Performed By: #### 0 0121 ####[facility] [place] [address], [facility] Creatinine mass conc 1.41 mg/dL High 0.60-1.20 [facility] Comment on above: Performed By: #### 0 0121 ####[facility] [place] [address], [facility] GFR/1.73 sq M predicted among blacks MDRD vol rate/area (S/P/Bld) 44 ml/min/1.73sq m Abnormal >60 [facility] Comment on above: Result Comment: Calc ulation may not be valid for patients over 70 years Performed By: #### 0 0121 ####[facility] [facility] [place] [address], [facility] GFR/1.73 sq M predicted among non-blacks MDRD vol rate/area (S/P/Bld) 36 ml/min/1.73sq m Abnormal >60 [facility] Comment on above: Result Comment: Calc ulation may not be valid for patients over 70 years Performed By: #### 0 0121 ####[facility] [facility] [place] [address], [facility] Glucose mass conc 129 mg/dL High 70-100 [facility] Comment on above: Performed By: #### 0 0121 ####[facility] [facility] [place] [address], [facility] Potassium molar conc 5.1 mmol/L Normal 3.5-5.1 [facility] Comment on above: Performed By: #### 0 0121 ####[facility] [facility] [place] [address], [facility] Protein mass conc 7.6 g/dL Normal 6.0-8.3 [facility] Comment on above: Performed By: #### 0 0121 ####[facility] [facility] [place] [address], [facility] Sodium molar conc 134 mmol/L Low 136-145 [facility] Comment on above: Performed By: #### 0 0121 ####[facility] 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 Normal [facility] Vital Signs Date Time Vital Sign Value Performing Clinician Manohari shana 05-03-2024 13: Body height 152.4 cm MD Kael Adkins Work Phone: [facility] 05-03-2024 13: Body mass index (BMI) [Ratio] 31.5 kg/m2 MD Kael Adkins Work Phone: [facility] 05-03-2024 13: Body weight 73.2 kg MD Kael Adkins Work Phone: [facility] 05-03-2024 13:020400 Body temperature 97.3 [degF] MD Kael Adkins Work Phone: [facility] 05-03-2024 13:020400 Diastolic blood pressure 59 mm[Hg] MD Kael Adkins Work Phone: [facility] 05-03-2024 13:020400 Heart rate 56 /min MD Kael Adkins Work Phone: [facility] 05-03-2024 13:020400 Respiratory rate 20 /min MD Kael Adkins Work Phone: [facility] 05-03-2024 13:020400 Systolic blood pressure 106 mm[Hg] MD Kael Adkins Work Phone: [facility] Encounters Encounter Date Encounter Type Care Provider Facility Start: 03-07-2025 End: 03-07-2025 ambulatory Kael Adkins [facility] Work Phone: Start: 03-07-2025 End: 03-07-2025 Departed Referred Kael Adkins MD Work Phone: [facility] Start: 03-05-2025 End: 03-05-2025 ambulatory [facility] Start: 05-03-2024 End: 05-03-2024 ambulatory MD Kael Adkins Work Phone: [facility] Work Phone: Start: 05-03-2024 End: 05-03-2024 Discharged Recurring MD Kael Adkins Work Phone: [facility] [place] Work Phone: Start: 12-13-2023 End: 12-13-2023 Clinical Support Anna Kumar CCC-A Work Phone: [facility] Comment on above: Bilateral impacted c erumen (Primary Dx) Start: 01-22-2023 End: 01-22-2023 ambulatory STACIA ARIANNA Facility:[facility] Start: 11-16-2022 End: 11-17-2022 ambulatory NONE LISTED REQUEST Facility:[facility] Start: 09-16-2022 ambulatory STACIAKRISSY KELLER Facility: [facility] Start: 08-28-2022 End: 08-29-2022 ambulatory KAEL ADKINS Facility:[facility] Start: 02-11-2022 End: 02-12-[address] DOCTOR JUAREZ Facility:[facility] Start: 02-08-2022 End: 02-08-[address] KAEL ADKINS . Facility:[facility] Start: 02-04-2022 ambulatory STACIA KELLER Facility: [facility] Start: 02-01-2022 End: 02-01-[address] KAEL ADKINS . Facility: Start: 06-27-2018 End: 07-19-2018 Evaluation and management of inpatient MEG ABEBE Facility:[facility] Start: 05-24-2018 End: 05-25-2018 Patient encounter MEG ABEBE Facility:[facility] Start: 04-19-2018 End: 04-20-2018 Patient encounter MEG ABEBE Facility:[facility] Procedures Date Procedure Procedure Detail [...] on above: Performed By: #### 5 6101, 03466 ####[facility] [address], [facility] Start: 06-28-2018 INTRODUCE OF OTH THE RAP SUBST INTO RESP TRACT, VIA OPENING TOMERIN MIS Start: 06-27-2018 EXCISION OF ABD SUBC U/FASCIA, OPEN APPROACH MEG ABEBE Start: 06-27-2018 REPAIR SMALL INTESTI NE, OPEN APPROACH MEG ABEBE Plan of Treatment Date Care Activity Detail Author Start: 03-07-2025 Bacteria identified in Urine by Culture Urine Culture [facility] Start: 03-07-2025 Urine culture [facility] Start: 2004 Pneumococcal Vaccine: 65+ Years (1 - PCV) Pneumococcal Vaccine: 65+ Years (1 - PCV) [facility] Payers Date Payer Category Payer Private Health Insurance [facility] [id number] 2020 Self-pay [id number] 1960 Medicare [id number] 1959 Self-pay [id number] 1959 Unknown 1959 Unknown [id number] 1939 Unknown [id number] 2.16.8 40.1.202940.3.579.2.647 1939 Unknown [id number] 2.16.8 40.1.328458.3.579.2.647 1939 Unknown [id number] 2.16.8 40.1.235926.3.579.2.647 1939 Unknown [id number] 2.16.84 0.1.508672.3.579.2.718 1939 Unknown [id number] 2.16.84 0.1.776289.3.579.2.593 1939 Unknown [id number] 2.16.84 0.1.629722.3.579.2.593 1939 Unknown [id number] 2.16.84 0.1.341365.3.579.2.593 1939 Unknown [id number] 2.16.84 0.1.183419.3.579.2.593 1939 Unknown [id number] 2.16.84 0.1.588616.3.579.2.593 1939 Unknown [id number] 2.16.84 0.1.918458.3.579.2.593 1939 Unknown [id number] 2.16.84 0.1.759538.3.579.2.593 1939 Unknown [id number] 2.16.84 0.1.155302.3.579.2.1259 1939 Unknown [id number] 2.16. 840.1.890303.3.579.2.1286 Medicare [id number] Unknown [id number] 2.16.8 40.1.768489.3.579.2.531 Unknown [id number] 2.16.8 40.1.469373.3.579.2.531 Social History Date Type Detail Facility Tobacco smoking status NHIS Tobacco smoking consumption unknown [facility] Start: 1940 Sex Assigned At Not on file [facility] Gender identity Not on file [facility] Start: 05-03-2024 Tobacco smoking status NHIS Ex-smoker (finding) [facility] Start: 1940 Sex Assigned At Female F [facility] Start: 03-09-2025 Sex Female (finding) [facility] Clinical Notes 10-17-2020 to 05-03-2024 Note Date & Type Note Facility 05-03-2024 Progress note Note Date/Time May 03, 2024 1:14pm [facility] [address] [place] [address] Wound Center Provider Note Signed Patient: Vidhya Giordano MR#: [id number] : 1940 Acct:[id number] Age/Sex: 83 / F Copies to: MD Wendy Verdugo APRN~ HPI Date of Visit Date of Visit: Date of Service: 05/03/2024 Time of Service: 13:12 Narrative HPI: Vidhya is an 81 year old female presenting to [facility] wound care program for afollow up visit [...] 05/19/23 stable again, was apparently dc'd from [facility] and so we will order suppliesfrom a [...] are happy with this order, spoke about [facility] again and they will think about getting [...] Intensity: 7 Wound/Ulcer History Mode of Arrival/ Cpo: Family Assistive Device Used Today: Wheelchair Lives with:: Children Appetite Description: Within Normal Limits Who helps w/ dressing change?: Home Health Why Do You Need Help?: Can't Reach Ulcer, Limited mobility, Unsafe leave home byself and Taxing effort to leave home Smoking Status: Former smoker [facility] Medical History (Updated 07/14/23 @ 13:12 by [...] Full Bed Appearance: Beefy Red, Hypergranulation and [place] Percent of Wound Bed Granulated/Red: 100 Percent [...] By: <Electronically signed by DG Scott> 05/03/241313 [facility] Work Phone: 1(543) 305-992304-24-2024 Progress note Author Wendy Scott [facility] March 01, 2024 2:57pm Note Date/Time March 01, 2024 2:5 8pm [facility] [address] [place] [address] Wound Center Provider Note Signed Patient: Vidhya Giordano MR#: [id number] : 1940 Acct:[id number] Age/Sex: 83 / F Copies to: MD Wendy Verdugo, DG~ HPI Date of Visit Date of Visit: Date of Service: 03/01/2024 Time of Service: 14:55 Narrative HPI: Vidhya is an 81 year old female presenting to [facility] wound care program for afollow up visit [...] 05/19/23 stable again, was apparently dc'd from [facility] and so we will order suppliesfrom a [...] are happy with this order, spoke about [facility] again and they will think about getting [...] the time Wound/Ulcer History Mode of Arrival/ Cpo: Family Assistive Device Used Today: Wheelchair Lives with:: Children Appetite Description: Within Normal Limits Who helps w/ dressing change?: Home Health Why Do You Need Help?: Can't Reach Ulcer, Limited mobility, Unsafe leave home byself and Taxing effort to leave home Smoking Status: Former smoker [facility] Medical History (Updated 07/14/23 @ 13:12 by [...] Thickness: Full Bed Appearance: Beefy Red and [place] Percent of Wound Bed Granulated/Red: 100 Percent [...] By: <Electronically signed by DG Scott> 03/01/24 1458 [facility] Work Phone: 1(744) 320-528802-21-2024 Progress note Author Wendy Scott [facility] December 29, 2023 1:12pm Note Date/Time December 29, 2023 1:34pm [facility] [address] [place] [address] Wound Center Provider Note Signed Patient: Vidhya Giordano MR#: [id number] : 1940 Acct:[id number] Age/Sex: 83 / F Copies to: MD Wendy Verdugo APRN~ HPI Date of Visit Date of Visit: Date of Service: 12/29/2023 Time of Service: 13:10 Narrative HPI: Vidhya is an 81 year old female presenting to [facility] wound care program for afollow up visit [...] foreign body that is still in place- Vdihya has no intention of any further surgical [...] 05/19/23 stable again, was apparently dc'd from [facility] and so we will order suppliesfrom a [...] Intensity: 0 Wound/Ulcer History Mode of Arrival/ Cpo: Family Assistive Device Used Today: Wheelchair Lives with:: Children Appetite Description: Within Normal Limits Who helps w/ dressing change?: Home Health Why Do You Need Help?: Can't Reach Ulcer, Limited mobility, Unsafe leave home byself and Taxing effort to leave home Smoking Status: Former smoker [facility] Medical History (Updated 07/14/23 @ 13:12 by Wenyd Scott APRN) Skin ulcer of abdomen Intestinal [...] Thickness: Full Bed Appearance: Beefy Red and [place] Percent of Wound Bed Granulated/Red: 100 Percent [...] <Electronically signed by DG Scott> 12/29/23 1312 [facility] Work Phone: 1(459) 722-693402-05-2024 History of Present illness Narrative* ZORA Infante [...] Pt to return prn documented in this encounterOz[facility] [id number] Progress note Author Wendy Scott [facility] November 03, 2023 1:09pm Note Date/Time November 03, 2023 1:09pm [facility] [address] [place] [address] Wound Center Provider Note Signed Patient: Vidhya Giordano MR#: [id number] : 1940 Acct:[id number] Age/Sex: 83 / F Copies to: MD Wendy Verdugo APRN~ HPI Date of Visit Date of Visit: Date of Service: 11/03/2023 Time of Service: 13:08 Narrative HPI: Vidhya is an 81 year old female presenting to [facility] wound care program for afollow up visit [...] 05/19/23 stable again, was apparently dc'd from [facility] and so we will order suppliesfrom a [...] Intensity: 0 Wound/Ulcer History Mode of Arrival/ Cpo: Family Assistive Device Used Today: Wheelchair Lives with:: Children Appetite Description: Within Normal Limits Who helps w/ dressing change?: Home Health Why Do You Need Help?: Can't Reach Ulcer, Limited mobility, Unsafe leave home byself and Taxing effort to leave home Smoking Status: Former smoker [facility] Medical History (Updated 07/14/23 @ 13:12 by [...] Thickness: Full Bed Appearance: Beefy Red and [place] Percent of Wound Bed Granulated/Red: 100 Percent [...] <Electronically signed by DG Scott> 11/03/23 1309 [facility] Work Phone: 1(545) 936-576111-01-2023 Progress note Author Wendy Scott [facility] September 08, 2023 1:10pm Note Date/Time September 08, 2023 1 :10pm [facility] [address] [place] [address] Wound Center Provider Note Signed Patient: Vidhya Giordano MR#: [id number] : 1940 Acct:[id number] Age/Sex: 83 / F Copies to: MD Wendy Verdugo APRN~ HPI Date of Visit Date of Visit: Date of Service: 09/08/2023 Time of Service: 13:08 Narrative HPI: Vidhya is an 81 year old female presenting to [facility] wound care program for afollow up visit [...] 05/19/23 stable again, was apparently dc'd from [facility] and so we will order suppliesfrom a [...] Intensity: 0 Wound/Ulcer History Mode of Arrival/ Cpo: Family Assistive Device Used Today: Wheelchair Lives with:: Children Appetite Description: Within Normal Limits Who helps w/ dressing change?: Home Health Why Do You Need Help?: Can't Reach Ulcer, Limited mobility, Unsafe leave home byself and Taxing effort to leave home Smoking Status: Former smoker [facility] Medical History (Updated 07/14/23 @ 13:12 by [...] Thickness: Full Bed Appearance: Beefy Red and Piedra Aguza Percent of Wound Bed Granulated/Red: 100 Percent [...] <Electronically signed by DG Scott> 09/08/23 [address] [facility] Work Phone: 1([phone]) 171-623609-06-2023 Progress note Author Wendy Scott [facility] July 14, 2023 1:12pm Note Date/Time July 14, 2023 1:13pm [facility] [address] [place] [address] Wound Center Provider Note Signed Patient: Vidhya Giordano MR#: [id number] : 1940 Acct:[id number] Age/Sex: 83 / F Copies to: MD Wendy Verdugo APRN~ HPI Date of Visit Date of Visit: Date of Service: 07/14/2023 Time of Service: 13:10 Narrative HPI: Vidhya is an 81 year old female presenting to [facility] wound care program for afollow up visit [...] 05/19/23 stable again, was apparently dc'd from [facility] and so we will order suppliesfrom a [...] Intensity: 0 Wound/Ulcer History Mode of Arrival/ Cpo: Family Assistive Device Used Today: Wheelchair Lives with:: Children Appetite Description: Within Normal Limits Who helps w/ dressing change?: Home Health Why Do You Need Help?: Can't Reach Ulcer, Limited mobility, Unsafe leave home byself and Taxing effort to leave home Smoking Status: Former smoker [facility] Medical History (Updated 07/14/23 @ 13:12 by [...] Thickness: Full Bed Appearance: Beefy Red and P[place]ra Aguza Percent of Wound Bed Granulated/Red: 100 Percent [...] <Electronically signed by DG Scott> 07/14/23 1312 [facility] Work Phone: 1([phone]) 117-639807-12-2023 Progress note Author Wendy Scott [facility] May 19, 2023 1:22pm Note Date/Time May 19, 2023 1:22 pm [facility] [address] [place] [address] Wound Center Provider Note Signed Patient: Vidhya Giordano MR#: [id number] : 1940 Acct:[id number] Age/Sex: 82 / F Copies to: MD Wendy Verdugo, BLACK TOP MACHINE OPERATOR~ HPI Date of Visit Date of Visit: Date of Service: 05/19/2023 Time of Service: 13:19 Narrative HPI: Vidhya is an 81 year old female presenting to [facility] wound care program for afollow up visit [...] 05/19/23 stable again, was apparently dc'd from [facility] and so we will order suppliesfrom a dme supplier, orders the same since the daughter prefers it that way, 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..] <Electronically signed by DG Scott> 05/19/23 132[address] [facility] Work Phone: 1([phone]) 938-135405-17-2023 Progress note Author Wendy Scott [facility] March 24, 2023 1:44pm Note Date/Time March 24, 2023 1:44p m [facility] [address] [place] [address] Wound Center Provider Note Signed Patient: Vidhya Giordano MR#: [id number] : 1940 Acct:[id number] Age/Sex: 82 / F Copies to: Kael Adkins MD Wendy Tyler, BLACK TOP MACHINE OPERATOR~ HPI Date of Visit Date of Visit: Date of Service: 03/24/2023 Time of Service: 13:42 Narrative HPI: Vidhya is an 81 year old female presenting to [facility] wound care program for afollow up visit [...] from shingles Wound/Ulcer History Mode of Arrival/ Cpo: Family Assistive Device Used Today: Wheelchair Lives with:: Children Appetite Description: Within Normal Limits Who helps w/ dressing change?: Home Health Why Do You Need Help?: Can't Reach Ulcer, Limited mobility, Unsafe leave home byself and Taxing effort to leave home Smoking Status: Former smoker [facility] Medical History (Updated 06/03/22 @ 11:55 by [...] (Non-healing surgical wound) Thickness: Full Bed Appearance: Piedra Aguza and Rolled Edges Percent of Wound Bed [...] <Electronically signed by DG Scott> 03/24/23 134[address] [facility] Work Phone: 1(137) 714-960803-08-2023 Progress note Author Wendy Scott [facility] January 13, 2023 1:07pm Note Date/Time January 13, 2023 1:08 pm [facility] [address] [place] [address] Wound Center Provider Note Signed Patient: Vidhya Giordano MR#: [id number] : 1940 Acct:[id number] Age/Sex: 82 / F Copies to: MD Wendy Verdugo APRN~ HPI Date of Visit Date of Visit: Date of Service: 01/13/2023 Time of Service: 13:06 Narrative HPI: Vidhya is an 81 year old female presenting to [facility] wound care program for afollow up visit [...] Intensity: 7 Wound/Ulcer History Mode of Arrival/ Cpo: Family Assistive Device Used Today: Wheelchair Lives with:: Children Appetite Description: Within Normal Limits Who helps w/ dressing change?: Home Health Why Do You Need Help?: Can't Reach Ulcer, Limited mobility, Unsafe leave home byself and Taxing effort to leave home Smoking Status: Former smoker [facility] Medical History (Updated 06/03/22 @ 11:55 by [...] (Non-healing surgical wound) Thickness: Full Bed Appearance: Piedra Aguza and Rolled Edges Percent of Wound Bed [...] <Electronically signed by DG Scott> 01/13/23 [address] [facility] Work Phone: 1(284) 335-749801-11-2023 Progress note Author Wendy Scott [facility] November 18, 2022 11:26am Note Date/Time November 18, 2022 1 1:27am [facility] [address] [place] [address] Wound Center Provider Note Signed Patient: Vidhya Giordano MR#: [id number] : 1940 Acct:[id number] Age/Sex: 82 / F Copies to: MD Wendy Verdugo APRN~ HPI Date of Visit Date of Visit: Date of Service: 11/18/2022 Time of Service: 11:25 Narrative HPI: Vidhya is an 81 year old female presenting to [facility] wound care program for afollow up visit [...] from shingles Wound/Ulcer History Mode of Arrival/ Cpo: Family Assistive Device Used Today: Wheelchair Lives with:: Children Appetite Description: Within Normal Limits Who helps w/ dressing change?: Home Health Why Do You Need Help?: Can't Reach Ulcer, Limited mobility, Unsafe leave home byself and Taxing effort to leave home Smoking Status: Former smoker [facility] Medical History (Updated 06/03/22 @ 11:55 by [...] (Non-healing surgical wound) Thickness: Full Bed Appearance: Piedra Aguza and Rolled Edges Percent of Wound Bed [...] By: <Electronically signed by DG Scott> 11/18/221125 [facility] Work Phone: 1(793) 929-617611-16-2022 Progress note Author Wendy Scott [facility] September 23, 2022 11:25am Note Date/Time September 23, 2022 11:25am [facility] [address] [place] [address] Wound Center Provider Note Signed Patient: Vidhya Giordano MR#: [id number] : 1940 Acct:[id number] Age/Sex: 82 / F Copies to: MD Wendy Verdugo APRN~ HPI Date of Visit Date of Visit: Date of Service: 09/23/2022 Time of Service: 11:22 Narrative HPI: Vidhya is an 81 year old female presenting to [facility] wound care program for afollow up visit [...] Intensity: 0 Wound/Ulcer History Mode of Arrival/ Cpo: Family Assistive Device Used Today: Wheelchair Lives with:: Children Appetite Description: Within Normal Limits Who helps w/ dressing change?: Home Health Why Do You Need Help?: Can't Reach Ulcer, Limited mobility, Unsafe leave home byself and Taxing effort to leave home Smoking Status: Former smoker [facility] Medical History (Updated 06/03/22 @ 11:55 by [...] (Non-healing surgical wound) Thickness: Full Bed Appearance: Piedra Aguza and Rolled Edges Percent of Wound Bed [...] <Electronically signed by DG Scott> 09/23/22 [address] [facility] Work Phone: 1([phone]) 231-700709-21-2022 Progress note Author Wedny Scott [facility] July 29, 2022 11:35am Note Date/Time July 29, 2022 11:34am [facility] [address] [place] [address] Wound Center Provider Note Signed Patient: Vidhya Giordano MR#: [id number] : 1940 Acct:[id number] Age/Sex: 82 / F Copies to: MD Wendy Verdugo APRN~ HPI Date of Visit Date of Visit: Date of Service: 07/29/2022 Time of Service: 11:25 Narrative HPI: Vidhya is an 81 year old female presenting to [facility] wound care program for afollow up visit [...] Intensity: 6 Wound/Ulcer History Mode of Arrival/ Cpo: Family Assistive Device Used Today: Wheelchair Lives with:: Children Appetite Description: Within Normal Limits Who helps w/ dressing change?: Home Health Why Do You Need Help?: Can't Reach Ulcer, Limited mobility, Unsafe leave home byself and Taxing effort to leave home Smoking Status: Former smoker [facility] Medical History (Updated 06/03/22 @ 11:55 by [...] wound) Thickness: Full Bed Appearance: Beefy Red, Piedra Aguza and Rolled Edges Percent of Wound Bed [...] <Electronically signed by DG Scott> 07/29/22 1135 [facility] Work Phone: 1([phone]) 849-475407-27-2022 Progress note Author Wendy Scott [facility] June 03, 2022 11:56am Note Date/Time June 03, 2022 11:5 5am [facility] [address] [place] [address] Wound Center Provider Note Signed Patient: Vidhya Giordano MR#: [id number] : 1940 Acct:[id number] Age/Sex: 81 / F Copies to: MD Wendy Verdugo APRN~ HPI Date of Visit Date of Visit: Date of Service: 06/03/2022 Time of Service: 11:54 Narrative HPI: Vidhya is an 81 year old female presenting to [facility] wound care program for afollow up visit for an abdominal ulcer. I am very familiar with Vdihya, as she has been a patient of [...] from shingles Wound/Ulcer History Mode of Arrival/ Cpo: Family Assistive Device Used Today: Wheelchair Lives with:: Children Appetite Description: Within Normal Limits Who helps w/ dressing change?: Home Health Why Do You Need Help?: Can't Reach Ulcer, Limited mobility, Unsafe leave home byself and Taxing effort to leave home Smoking Status: Former smoker [facility] Medical History (Updated 06/03/22 @ 11:55 by [...] wound) Thickness: Full Bed Appearance: Beefy Red, Piedra Aguza and Hypergranulation Percent of Wound Bed Granulated/Red: [...] <Electronically signed by DG Scott> 06/03/22 115[address] [facility] Work Phone: 1(159) 111-670806-01-2022 Progress note Author Wendy Scott [facility] April 08, 2022 1:14pm Note Date/Time April 08, 2022 1:14p m [facility] [address] [place] [address] Wound Center Provider Note Signed Patient: Vidhya Giordano MR#: [id number] : 1940 Acct:[id number] Age/Sex: 81 / F Copies to: MD Wendy Verdugo APRN~ HPI Date of Visit Date of Visit: Date of Service: 04/08/2022 Time of Service: 13:11 Narrative HPI: Vidhya is an 81 year old female presenting to [facility] wound care program for afollow up visit [...] Intensity: 0 Wound/Ulcer History Mode of Arrival/ Cpo: Family Assistive Device Used Today: Wheelchair Lives with:: Children Appetite Description: Within Normal Limits Who helps w/ dressing change?: Home Health Why Do You Need Help?: Can't Reach Ulcer, Limited mobility, Unsafe leave home byself and Taxing effort to leave home Smoking Status: Former smoker [facility] Medical History (Updated 04/08/22 @ 13:13 by [...] <Electronically signed by DG Scott> 04/08/22 1314 [facility] Work Phone: 1([phone]) 821-979804-06-2022 Progress note Author Wendy Scott [facility] February 11, 2022 1:50pm Note Date/Time February 11, 2022 1:50 pm [facility] [address] [place] [address] Wound Center Provider Note Signed Patient: Vidhya Giordano MR#: [id number] : 1940 Acct:[id number] Age/Sex: 81 / F Copies to: MD Wendy Verdugo APRN~ HPI Date of Visit Date of Visit: Date of Service: 02/11/2022 Time of Service: 13:46 Narrative HPI: Vidhya is an 81 year old female presenting to [facility] wound care program for afollow up visit [...] from shingles Wound/Ulcer History Mode of Arrival/ Cpo: Family Assistive Device Used Today: Wheelchair Lives with:: Children Appetite Description: Within Normal Limits Who helps w/ dressing change?: Home Health Why Do You Need Help?: Can't Reach Ulcer, Limited mobility, Unsafe leave home byself and Taxing effort to leave home Smoking Status: Former smoker [facility] Medical History (Updated 01/02/21 @ 15:16 by [...] Thickness: Full Bed Appearance: Beefy Red and Piedra Aguza Percent of Wound Bed Granulated/Red: 90 Percent [...] <Electronically signed by DG Scott> 02/11/22 [address] [facility] Work Phone: 1([phone]) 243-437802-09-2022 Progress note Author Wendy Scott [facility] December 17, 2021 2:16pm Note Date/Time December 17, 2021 2 :16pm [facility] [address] [place] [address] Wound Center Provider Note Signed Patient: Vidhya Giordano MR#: [id number] : 1940 Acct:[id number] Age/Sex: 81 / F Copies to: MD Wendy Verdugo APRN~ HPI Date of Visit Date of Visit: Date of Service: 12/17/2021 Time of Service: 14:13 Narrative HPI: Vidhya is an 81 year old female presenting to [facility] wound care program for afollow up visit [...] is there Wound/Ulcer History Mode of Arrival/ Cpo: Family Assistive Device Used Today: Wheelchair Lives with:: Children Appetite Description: Within Normal Limits Who helps w/ dressing change?: Home Health Why Do You Need Help?: Can't Reach Ulcer, Limited mobility, Unsafe leave home byself and Taxing effort to leave home Smoking Status: Former smoker [facility] Medical History (Updated 01/02/21 @ 15:16 by [...] Thickness: Full Bed Appearance: Beefy Red and Piedra Aguza Percent of Wound Bed Granulated/Red: 100 Percent [...] <Electronically signed by DG Scott> 12/17/21 [facility] Work Phone: [phone]) 429-330811-29-2021 Progress note Author Wendy Scott [facility] October 06, 2021 11:31am Note Date/Time October 06, 2021 11:31am [facility] [address] [place] [address] Wound Center Provider Note Signed Patient: Vidhya Giordano MR#: [id number] : 1940 Acct:[id number] Age/Sex: 81 / F Copies to: MD Wendy Verdugo APRN~ HPI Date of Visit Date of Visit: Date of Service: 10/06/2021 Time of Service: :29 Narrative HPI: Vidhya is an 81 year old female presenting to [facility] wound care program for afollow up visit [...] is there Wound/Ulcer History Mode of Arrival/ Cpo: Family Assistive Device Used Today: Wheelchair Lives with:: Children Appetite Description: Within Normal Limits Who helps w/ dressing change?: Home Health Why Do You Need Help?: Can't Reach Ulcer, Limited mobility, Unsafe leave home byself and Taxing effort to leave home Smoking Status: Former smoker [facility] Medical History (Updated 01/02/21 @ 15:16 by [...] Thickness: Full Bed Appearance: Beefy Red and Piedra Aguza Percent of Wound Bed Granulated/Red: 100 Percent [...] <Electronically signed by DG Scott> 10/06/21 1131 [facility] Work Phone: 1([phone]) 867-311910-11-2021 Progress note Author Wendy Scott [facility] August 18, 2021 11:42am Note Date/Time August 18, 2021 1 1:42am [facility] [address] [place] [address] Wound Center Provider Note Signed Patient: Vidhya Giordano MR#: [id number] : 1940 Acct:[id number] Age/Sex: 81 / F Copies to: MD Wendy Verdugo, 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 TOP MACHINE 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~ HPI Date of Visit Date of Visit: Date of Service: 08/18/2021 Time of Service: 11:37 Narrative HPI: Vidhya is an 81 year old female presenting to [facility] wound care program for afollow up visit [...] is there Wound/Ulcer History Mode of Arrival/ Cpo: Family Assistive Device Used Today: Wheelchair Lives with:: Children Appetite Description: Within Normal Limits Who helps w/ dressing change?: Home Health Why Do You Need Help?: Can't Reach Ulcer, Limited mobility, Unsafe leave home byself and Taxing effort to leave home Smoking Status: Former smoker [facility] Medical History (Updated 01/02/21 @ 15:16 by [...] mg(1,500 mg)-vitamin D3 800 unit chewable tablet ([id number] plus D) 1 tab PO DAILY 12/23/17 [...] Thickness: Full Bed Appearance: Beefy Red and Piedra Aguza Percent of Wound Bed Granulated/Red: 100 Percent [...] <Electronically signed by DG Scott> 08/18/21 114[address] [facility] Work Phone: 1(263) 961-330208-16-2021 Progress note Author Wendy Scott [facility] June 23, 2021 11:37am Note Date/Time June 23, 2021 11 :37am [facility] [address] [place] [address] Wound Center Provider Note Signed Patient: Vidhya Giordano MR#: [id number] : 1940 Acct:[id number] Age/Sex: 81 / F Copies to: MD Wendy Verdugo APRN~ HPI Date of Visit Date of Visit: Date of Service: 06/23/2021 Time of Service: 11:35 Narrative HPI: Vidhya is an 81 year old female presenting to [facility] wound care program for a follow up [...] is there Wound/Ulcer History Mode of Arrival/ Cpo: Family Assistive Device Used Today: Wheelchair Lives with:: Children Appetite Description: Within Normal Limits Who helps w/ dressing change?: Home Health Why Do You Need Help?: Can't Reach Ulcer, Limited mobility, Unsafe leave home byself and Taxing effort to leave home Smoking Status: Former smoker [facility] Medical History (Updated 01/02/21 @ 15:16 by [...] mg(1,500 mg)-vitamin D3 800 unit chewable tablet ([id number] plus D) 1 tab PO DAILY 12/23/17 [...] Thickness: Full Bed Appearance: Beefy Red and Piedra Aguza Percent of Wound Bed Granulated/Red: 100 Percent [...] <Electronically signed by DG Scott> 06/23/21 [address] [facility] Work Phone: 1([phone]) 339-689906-21-2021 Progress note Author Wendy Scott [facility] April 28, 2021 11:22am Note Date/Time April 28, 2021 11:2 2am [facility] [address] [place] [address] Wound Center Provider Note Signed Patient: Vidhya Giordano MR#: [id number] : 1940 Acct:[id number] Age/Sex: 80 / F Copies to: MD Wendy Verdugo APRN~ HPI Date of Visit Date of Visit: Date of Service: 04/28/2021 Time of Service: 11:18 Narrative HPI: Vidhya is an 80 year old female presenting to [facility] wound care program for a follow up [...] Intensity: 0 Wound/Ulcer History Mode of Arrival/ Cpo: Family Assistive Device Used Today: Wheelchair Lives with:: Children Appetite Description: Within Normal Limits Who helps w/ dressing change?: Home Health Why Do You Need Help?: Can't Reach Ulcer, Limited mobility, Unsafe leave home byself and Taxing effort to leave home Smoking Status: Former smoker [facility] Medical History (Updated 01/02/21 @ 15:16 by [...] Thickness: Full Bed Appearance: Beefy Red and Piedra Aguza Percent of Wound Bed Granulated/Red: 100 Percent [...] <Electronically signed by DG Scott> 04/28/21 [address] [facility] Work Phone: [phone]) 802-767905-10-2021 Progress note Author Wendy Scott [facility] March 17, 2021 11:35am Note Date/Time March 17, 2021 11:35 am [facility] [address] [place] [address] Wound Center Provider Note Signed Patient: Vidhya Giordano MR#: [id number] : 1940 Acct:[id number] Age/Sex: 80 / F Copies to: MD Wendy Verdugo APRN~ HPI Date of Visit Date of Visit: Date of Service: 03/17/2021 Time of Service: 11:31 Narrative HPI: Vidhya is an 80 year old female presenting to [facility] wound care program for a follow up [...] is there Wound/Ulcer History Mode of Arrival/ Cpo: Family Assistive Device Used Today: Wheelchair Lives with:: Children Appetite Description: Within Normal Limits Who helps w/ dressing change?: Home Health Why Do You Need Help?: Can't Reach Ulcer, Limited mobility, Unsafe leave home byself and Taxing effort to leave home [facility] Medical History (Updated 01/02/21 @ 15:16 by [...] Thickness: Full Bed Appearance: Beefy Red and Piedra Aguza Percent of Wound Bed Granulated/Red: 100 Percent [...] 30 Signed By: <Electronically signed by DG Soctt> 03/17/21 [address] [facility] Work Phone: 1(242) 956-828403-17-2021 Progress note Author Wendy Scott [facility] January 22, 2021 1:13pm Note Date/Time January 22, 2021 1:1 3pm [facility] [address] [place] [address] Wound Center Provider Note Signed Patient: Vidhya Giordano MR#: [id number] : 1940 Acct:[id number] Age/Sex: 80 / F Copies to: MD Wendy Verdugo APRN~ HPI Date of Visit Date of Visit: Date of Service: 01/22/2021 Time of Service: 13:11 Narrative HPI: Vidhya is an 80 year old female presenting to [facility] wound care program for a follow up [...] is there Wound/Ulcer History Mode of Arrival/ Cpo: Family Assistive Device Used Today: Wheelchair Lives with:: Children Appetite Description: Within Normal Limits Who helps w/ dressing change?: Home Health Why Do You Need Help?: Can't Reach Ulcer, Limited mobility, Unsafe leave home byself and Taxing effort to leave home Smoking Status: Former smoker [facility] Medical History (Updated 01/02/21 @ 15:16 by [...] Thickness: Full Bed Appearance: Beefy Red and Piedra Aguza Percent of Wound Bed Granulated/Red: 100 Percent [...] By: <Electronically signed by DG Scott> 01/22/211312 [facility] Work Phone: [phone]) 692-631502-25-2021 Progress note Author Nichole Giordano [facility] January 02, 2021 3:18pm Note Date/Time January 02, 2021 3:15pm [facility] [address] [place] [address] Wound Center Provider Note Signed Patient: Vidhya Giordano MR#: [id number] : 1940 Acct:[id number] Age/Sex: 80 / F Copies to: MD Nichole Verdugo APRN~ HPI Date of Visit Date of Visit: Date of Service: 01/02/2021 Time of Service: 15:14 Narrative HPI: Vidhya is an 80 year old female presenting to [facility] wound care program for an initial visit [...] is there Wound/Ulcer History Mode of Arrival/ Cpo: Family Assistive Device Used Today: Wheelchair Lives with:: Children Appetite Description: Within Normal Limits Who helps w/ dressing change?: Home Health Why Do You Need Help?: Can't Reach Ulcer, Limited mobility, Unsafe leave home byself and Taxing effort to leave home Smoking Status: Former smoker [facility] Medical History (Updated 01/02/21 @ 15:16 by [...] Thickness: Full Bed Appearance: Beefy Red and Piedra Aguza Percent of Wound Bed Granulated/Red: 100 Percent [...] <Electronically signed by DG Giordano> 01/02/21 15[address] [facility] Work Phone: 1(248) 416-101901-07-2021 Progress note Author Wendy Scott [facility] November 14, 2020 8:16am Note Date/Time November 14, 2020 8: 16am [facility] [address] [place] [address] Wound Center Provider Note Signed Patient: Vidhya Giordano MR#: [id number] : 1940 Acct:[id number] Age/Sex: 80 / F Copies to: MD Wendy Verdugo APRN~ HPI Date of Visit Date of Visit: Date of Service: 11/14/2020 Time of Service: 08:14 Narrative HPI: Vidhya is an 80 year old female presenting to [facility] wound care program for a follow up [...] is there Wound/Ulcer History Mode of Arrival/ Cpo: Family Assistive Device Used Today: Wheelchair Lives with:: Children Appetite Description: Within Normal Limits Who helps w/ dressing change?: Home Health Why Do You Need Help?: Can't Reach Ulcer, Limited mobility, Unsafe leave home byself and Taxing effort to leave home Smoking Status: Former smoker [facility] Medical History (Updated 11/14/20 @ 08:16 by [...] Wound/Ulcer Abdomen: Bed Appearance: Beefy Red and [place] Percent of Wound Bed Granulated/Red: 100 Percent [...] By: <Electronically signed by DG Scott> 11/14/20815 [facility] Work Phone: [phone] 151-193512-10-2020 Progress note Author Wendy Scott [facility] October 17, 2020 8:39am Note Date/Time October 17, 2020 8:35am [facility] [address] [place] [address] Wound Center Provider Note Signed Patient: Vidhya Giordano MR#: [id number] : 1940 Acct:[id number] Age/Sex: 80 / F Copies to: MD Wendy Verdugo APRN~ HPI Date of Visit Date of Visit: Date of Service: 10/17/2020 Time of Service: 08:32 Narrative HPI: Vidhya is an 80 year old female presenting to [facility] wound care program for an initial visit [...] is there Wound/Ulcer History Mode of Arrival/ Cpo: Family Assistive Device Used Today: Wheelchair Lives with:: Children Appetite Description: Within Normal Limits Who helps w/ dressing change?: Home Health Why Do You Need Help?: Can't Reach Ulcer, Limited mobility, Unsafe leave home byself and Taxing effort to leave home Smoking Status: Former smoker [facility] Medical History (Updated 10/17/20 @ 08:34 by [...] 05/10/19 [History Confirmed 10/17/20] acetaminophen 650 mg HI Q6H PRN 05/10/19 [History Confirmed 10/17/20] allopurinol [...] Rash Wound/Ulcer Abdomen: Bed Appearance: Beefy Red, [place] and Hypergranulation Percent of Wound Bed Granulated/Red: [...] <Electronically signed by DG Scott> 10/17/20 0839 [facility] Work Phone: Evaluation note* Diagnosis Bilateral impacted cerumen- Primary Impacted cerumen documented in this encounter [facility] Diagnosis Onset Date Resolution Status Dementia chronic Gastrointestinal fistula chr onic Inflammation chronic Limited mobility chronic Obesity chronic [id number] chronic Surgical wound, non healing chronic Candidiasis resolved [facility] Work Phone: Evaluation noteNo assessment information available [facility] Work Phone: Summary Purpose Family History No Family History Records Found Relationship Condition Age at Onset Recorded Date/T scott mother Malignant neoplasm Unknown daughter Malignant neoplasm Unknown sister Malignant neoplasm Unknown Advance Directives No Advanced Directives Records Found Advance Directive Response Recorded Date/ Time Advance Directives No December 11:26am Hospital Course Note MR[id number] Admitted: 06/27/2018 Discharged: 07/19/2018 Date of : 1940 Physician: Meg Abebe M.D. DISCHARGE SUMMARYDISCHARGE ATTENDING: Jianlin Abebe, M.D.PRINCIPAL DIAGNOSIS: Enterocutaneous fistula.SECONDARY DIAGNOSES: Depression, hypertension, diabetes mellitus,neuropathy.PROCEDURES PERFORMED AND TREATMENT RENDERED: The patient is a [id number] with a history of ventral hernia repair. [...] Dementia Gastrointestinal fistula Inflammation Limited mobility Obesity [id number] Surgical wound, non healing Candidiasis Chief Complaint Admit Date Unknown March 07, 2025 7:3 6am Additional Source Comments INFORMATION SOURCE (unrecogn ized section and content) DATE CREATED AUTHOR [facility] DATE CREATED AUTHOR AUTHOR'S ORGANIZ ATION 10/02/2018 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 [employer] provides no warranty or guarantee of the accuracy or completeness of information in this document.
[2025-07-08] MEDS: POTASSIUM CHLORIDE 10 MEQ ER TABLET 20 MEQ PO (17:42)
[2025-07-08] MEDS: 0.9 % SODIUM CHLORIDE 1,000 ML 75 ML IV (17:42)
[2025-07-08] MEDS: HEPARIN SODIUM (PORCINE) 5,000 UNIT/ML VIAL 5000 UNIT SUBQ (18:50)
[2025-07-08 20:51] LABS: Potassium 3.5 mmol/L (3.5-5.1)
[2025-07-08] MEDS: POLYETHYLENE GLYCOL 3350 17 GM POWDER PACKET PO (21:29)
[2025-07-08] MEDS: PREGABALIN 50 MG CAPSULE PO (21:29)
[2025-07-08] MEDS: DOCUSATE SODIUM 100 MG CAPSULE PO (21:29)
[2025-07-08] MEDS: ATORVASTATIN CALCIUM 10 MG TABLET 80 MG PO (21:29)
[2025-07-08] MEDS: DONEPEZIL HCL 5 MG TABLET PO (21:29)
[2025-07-09] VITALS (22 sets, daily range): BP systolic 106–123; BP diastolic 63–74; PULSE 69–81; TEMP 36.4–37.1; O2SAT 89–90
[2025-07-09] MEDS: HEPARIN SODIUM (PORCINE) 5,000 UNIT/ML VIAL 5000 UNIT SUBQ ×3 (03:05→17:26)
--- NOTE | 2025-07-09 03:12 | PC.NURSE ---
refused nurses offer to turn at this time
[2025-07-09] MEDS: LEVOTHYROXINE SODIUM 25 MCG TABLET 50 MCG PO (05:46)
[2025-07-09 06:16] LABS: Hematocrit 38.5 % (36.0-48.0); Hemoglobin 12.1 g/dL (12.0-16.0); Immature Granulocytes Abs Auto 1.05 10^3/uL (0.00-0.03); Immature Granulocytes Pct Auto 7.4 % (0.0-0.5); Lymphocytes Absolute Auto 1.9 10^3/uL (1.2-3.8); Mean Corpuscular HGB Conc 31.4 g/dL (29.9-35.2); Mean Corpuscular Hemoglobin 27.1 pg (26.7-34.0); Mean Corpuscular Volume 86.1 fL (81.0-99.0); Platelet Count 186 10^3/uL (150-450); Red Blood Count 4.47 10^6/uL (4.20-5.40); White Blood Count 14.2 10^3/uL (4.0-11.0)
[2025-07-09 06:31] LABS: Anion Gap 12.7; Blood Urea Nitrogen 74.0 mg/dL (7.0-18.0); Calcium 8.4 mg/dL (8.5-10.1); Carbon Dioxide 30.6 mmol/L (21.0-32.0); Chloride 101 mmol/L (98-107); Estimated GFR (African America 28 (>=60 mL/min/1.73m^2); Estimated GFR (Non-African Ame 23 (>=60 mL/min/1.73m^2); Glucose 173 mg/dL (74-106); Potassium 3.3 mmol/L (3.5-5.1); Sodium 141 mmol/L (136-145)
[2025-07-09] MEDS: 0.9 % SODIUM CHLORIDE 1,000 ML 75 ML IV (06:50)
[2025-07-09 07:26] LABS: A. calcoaceticus-baumannii Cpx NOT DETECTED (NOT DETECTE); Bacteroides fragilis NOT DETECTED (NOT DETECTE); Candida auris NOT DETECTED (NOT DETECTE); Candida glabrata NOT DETECTED (NOT DETECTE); Enterobacterales NOT DETECTED (NOT DETECTE); Enterococcus faecalis NOT DETECTED (NOT DETECTE); Enterococcus faecium NOT DETECTED (NOT DETECTE); Klebsiella aerogenes NOT DETECTED (NOT DETECTE); Klebsiella pneumoniae group NOT DETECTED (NOT DETECTE); Proteus spp. NOT DETECTED (NOT DETECTE); Salmonella spp. NOT DETECTED (NOT DETECTE); Serratia marcescens NOT DETECTED (NOT DETECTE); Staphylococcus lugdunensis NOT DETECTED (NOT DETECTE); Stenotrophomonas maltophilia NOT DETECTED (NOT DETECTE); Streptococcus pyogenes NOT DETECTED (NOT DETECTE); Streptococcus spp. NOT DETECTED (NOT DETECTE)
[2025-07-09] MEDS: ASPIRIN 325 MG TABLET PO (08:25)
[2025-07-09] MEDS: PREGABALIN 50 MG CAPSULE PO ×2 (08:25→21:13)
[2025-07-09] MEDS: ESCITALOPRAM 10 MG TABLET 20 MG PO (08:25)
[2025-07-09] MEDS: DOCUSATE SODIUM 100 MG CAPSULE PO ×2 (08:25→21:13)
[2025-07-09] MEDS: METOPROLOL SUCCINATE 25 MG TAB.ER.24H PO (08:25)
[2025-07-09] MEDS: SENNOSIDES/DOCUSATE SODIUM 1 TAB TABLET 2 TAB PO (08:25)
[2025-07-09] MEDS: POLYETHYLENE GLYCOL 3350 17 GM POWDER PACKET PO ×2 (08:25→21:13)
[2025-07-09] MEDS: ALLOPURINOL 100 MG TABLET PO (08:25)
[2025-07-09] MEDS: PANTOPRAZOLE SODIUM 40 MG TABLET.DR PO (08:25)
[2025-07-09] MEDS: AMLODIPINE BESYLATE 5 MG TABLET 2.5 MG PO (08:25)
[2025-07-09 09:07] LABS: Source Blood
[2025-07-09 09:08] LABS: Staphylococcus epidermidis DETECTED (NOT DETECTE); Staphylococcus spp. DETECTED (NOT DETECTE); mecA/C DETECTED (NOT DETECTE)
--- NOTE | 2025-07-09 10:52 | PM.HP ---
HPI H&P: HPI History of Present Illness Chief complaint: Acute On chronic kidney disease uremia Narrative: Mrs. Giordano is an 85-year-old female who is known to me from recent encounter. Patient was recently discharged to a long-term for physical occupational therapy. Patient did well. Yesterday nursing staff reported that the patient is somewhat not acting herself. Somewhat lethargic with a suspected right or left sided weakness therefore she was sent to the emergency room department. Patient is not far from baseline. On exam there is no new motor deficit. Patient is able to move her upper and lower extremities symmetrically. Unable to stand up and ambulate. That is a chronic. This has been going on for years. In the emergency room department, it was believed that her weakness is probably related to her cervical spine disease. Emergency room physician recommended to transfer patient to tertiary [facility] to be seen by spine surgery team. The patient declined stated that she does not want to go anywhere else. She does not want to have any surgical intervention. Subsequently had accepted to admit patient for further evaluation. She is found to have CRISTINA. Opioid HPI Opioid Management Most Recent Pain and Opioid Data: Last Pain Scale 0 07/08/25, 16:24 Last Pain Intensity 3 03/06/25, 11:19 Last Pain Assessment 07/08/25, 16:24 Last ORT Total Score 2 07/08/25, 16:24 Last ORT Risk Category Low Risk 07/08/25, 16:24 Review of Systems ROS Status of ROS 10 or more systems reviewed and unremarkable except as noted in history and below [facility] Medical History Fall ?W19.XXXA - Unspecified fall, initial encounter (ICD-10) Hyperkalemia ?E87.5 - Hyperkalemia (ICD-10) Peripheral vascular disease ?I73.9 - Peripheral vascular disease, unspecified (ICD-10) Nerve damage ?T14.8XXA - Other injury of unspecified body region, initial encounter (ICD-10) HTN (hypertension) ?I10 - Essential (primary) hypertension (ICD-10) Diabetes ?E11.9 - Type 2 diabetes mellitus without complications (ICD-10) Surgical History History of cholecystectomy ?Z90.49 - Acquired absence of other specified parts of digestive tract (ICD-10) H/O knee surgery ?Z98.890 - Other specified postprocedural states (ICD-10) History of hysterectomy ?Z90.710 - Acquired absence of both cervix and uterus (ICD-10) Previous back surgery ?Z98.890 - Other specified postprocedural states (ICD-10) H/O neck surgery ?Z98.890 - Other specified postprocedural states (ICD-10) Family History Mother Family history of cancer Other Family history of CHF (congestive heart failure) Social History (Updated 06/25/25 @ 20:28 by Carline Spivey RN) Within the past year, how often did you have a drink containing alcohol: never Within the past year, how often did you have six or more drinks on one occasion: never Score interpretation: A score less than 3 is consistent with normal alcohol consumption. Smoking status: Former smoker Second hand tobacco smoke exposure: Yes Non-prescribed substance use: denies use Known occupational exposures/hazards: No Highest level of school completed/degree received: high school graduate Do you want help with school or training: No Are you now , , , , never or living with a partner: In a typical week, how many times do you talk on the telephone with family, friends, or neighbors: twice per week How often do you get together with friends or relatives: twice per week Little interest or pleasure in doing things: not at all Feeling down, depressed, or hopeless: not at all Feel stressed/tense/nervous/anxious/difficulty sleeping: not at all Do you think of yourself as: straight/heterosexual Gender Identity: female Meds Home Medications and Allergies Home Medications ?Medication ?Instructions ?Recorded ?Confirmed ?Type allopurinol 100 mg tablet 100 mg PO DAILY 03/05/25 07/08/25 History donepezil 5 mg tablet 5 mg PO QPM 03/05/25 07/08/25 History levothyroxine 50 mcg tablet 50 mcg PO QAM 03/05/25 07/08/25 History vitamin B12 1 tab PO DAILY 03/05/25 07/08/25 History Melatonin 6 mg PO HS ##0 06/29/25 07/08/25 Rx acetaminophen 325 mg tablet 650 mg (2 x 325 mg) PO Q6H PRN 06/29/25 07/08/25 Rx (Tylenol) Pain/fever #0 tabs amlodipine 5 mg tablet 5 mg PO QD #0 tabs 06/29/25 07/08/25 Rx aspirin 81 mg tablet,delayed 81 mg PO QD #0 tabs 06/29/25 07/08/25 Rx release buprenorphine 20 mcg/hour weekly 1 patch transdermal Q7D #1 ea 06/29/25 07/08/25 Rx transdermal patch docusate sodium 100 mg capsule 100 mg PO BID #0 caps 06/29/25 07/08/25 Rx escitalopram oxalate 10 mg tablet 20 mg (2 x 10 mg) PO DAILY #0 tabs 06/29/25 07/08/25 Rx metoprolol succinate 25 mg 25 mg PO DAILY #30 tabs 06/29/25 07/08/25 Rx tablet,extended release 24 hr (Toprol XL) pregabalin 50 mg capsule 50 mg PO BID #20 caps 06/29/25 07/08/25 Rx sennosides 8.6 mg-docusate sodium 2 tab PO QD #0 tabs 06/29/25 07/08/25 Rx 50 mg tablet (Senna Plus) torsemide 20 mg tablet 20 mg PO QD #0 tabs 06/29/25 07/08/25 Rx atorvastatin 10 mg tablet (Lipitor) 10 mg PO DAILY 07/08/25 07/08/25 History diclofenac sodium 1 % topical gel 2 g topical BID 07/08/25 07/08/25 History magnesium hydroxide 400 mg/5 mL 30 ml PO BID PRN constipation 07/08/25 07/08/25 History oral suspension (Milk of Magnesia) pantoprazole 40 mg tablet,delayed 40 mg PO DAILY 07/08/25 07/08/25 History release polyethylene glycol 3350 17 gram 17 g PO BID 07/08/25 07/08/25 History oral powder packet Allergies Allergy/AdvReac Type Severity Reaction Status Date / Time codeine Allergy dizzy Verified 03/05/25 17:21 latex Allergy Rash Verified 03/05/25 17:21 meperidine (From Demerol) Allergy hallucinati Verified 03/05/25 17:21 on Sulfa (Sulfonamide Allergy Rash Verified 03/05/25 17:21 Antibiotics) Exam Narrative Exam Narrative: Patient is lying in bed. Awake. Somewhat more lethargic than when I saw her several weeks ago. Able to follow commands. Able to answer questions but takes her some time to respond. Able to lift up her upper and lower extremities against gravity. Unable to lift against resistance. That is chronic and is similar to my exam completed several weeks ago. Chest is clear, heart is regular. Abdomen is soft, nontender. Constitutional Vital Signs, click to edit/add: Last Vital Signs Temp 98.7 F 07/09/25 07:35 Pulse 77 07/09/25 09:58 Resp 20 07/09/25 07:35 BP 118/72 07/09/25 07:35 Pulse Ox 90 L 07/09/25 07:35 O2 Del Method Room Air 07/09/25 07:35 Results Labs Labs: Short CBC 07/08/25 07/08/25 07/09/25 Range/Units 11:22 12:12 05:40 WBC Not Reportable 14.5 H 14.2 H Hgb Not Reportable 13.0 12.1 Hct Not Reportable 40.3 38.5 Plt Count Not Reportable 202 186 BMP 07/08/25 07/08/25 07/09/25 12:12 20:25 05:40 Sodium 138 141 Potassium 2.9 L* 3.5 3.3 L Chloride 97 L 101 Carbon Dioxide 29.6 30.6 BUN 82.0 H* 74.0 H Creatinine 2.16 H 2.01 H Glucose 251 H 173 H Calcium 8.2 L 8.4 L Liver Function 07/08/25 Range/Units 12:12 Total Bilirubin 0.4 (0.2-1.0) mg/dL AST 36 (15-37) U/L ALT 24 (14-59) U/L Alkaline Phosphatase 94 (46-116) U/L Albumin 2.5 L (3.4-5.0) g/dL Urine 07/08/25 Range/Units 12:23 Urine Color Lt. yellow (YELLOW) Urine Clarity Clear (CLEAR) Urine pH 6.0 (5.0-9.0) Ur Specific [place] 1.015 (1.005-1.025) Urine Protein Negative (NEG/TRACE) mg/dL Urine Glucose (UA) Negative (NEGATIVE) mg/dL Assessment and Plan Assessment and Plan (1) Elevated troponin: (2) NSTEMI (non-ST elevated myocardial infarction): (3) Hypokalemia: (4) CRISTINA (acute kidney injury): (5) Generalized weakness: (6) Obesity: (7) Myelomalacia: (8) Spinal stenosis: (9) CKD (chronic kidney disease): (10) Constipation: (11) Positive blood culture: Plan Altered mental status, lethargy, confusion, probable weakness reported by nursing staff at the nursing facility Patient is back to baseline which is consistent with mild cognitive loss, moderate to advanced functional loss and disability. This could have been triggered by CRISTINA/CKD associated with borderline hypotension. CAT scan of the brain does not show any acute intracranial process but could not exclude the possibility of ischemic stroke. Patient is unlikely to be candidate for MRI due to reported history of metal rods in her cervical spine. I started patient on aspirin as well as high-dose statin. No CTA was completed due to CKD. Requested echocardiogram and carotid study. Neurology team yesterday did not recommend any intervention or tPA or transferring to [place]. Patient will be seen by neurology team today. CRISTINA/CKD. Patient has stage IV CKD with a baseline creatinine around 1.7 and a GFR in the upper 20s lower 30s CRISTINA is likely secondary to volume loss. Patient was borderline hypotensive in the emergency room department. Patient was on torsemide 20 mg daily Holding diuretics and providing her with gentle diuresis. CRISTINA is improving. UA is bland. No RBC or protein. No suspicion for acute glomerulonephritis or obstructive uropathy. Resume diuretics in 24 to 48 hours to prevent fluid overload NSTEMI. Chronic RBBB Elevated troponin compared to baseline. Patient denies having any chest pain. EKG does not show ST elevation or depression. No clinical suspicion of ACS or acute coronary syndrome, however patient most likely has underlying CAD. Emergency room physician I discussed her case with [employer] on-call yesterday Dr. Bazan. She did not recommend transfer. She did not recommend any significant cardiovascular invention. She recommended observation and echocardiogram Continue aspirin. Continue beta-ghulam. Echocardiogram is to be done tomorrow to assess cardiac function and rule out valvular disease or cardiomyopathy. Requested official cardiology consultation Functional disability. 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 Subsequently [place] spine surgery team told the patient that she is not a candidate for any additional surgical intervention on the cervical spine. Recent MRI showed myelomalacia suggestive significant cord injury and likely irreversibility Patient declined to be transferred to tertiary care center to be seen by spine surgery team last admission. Patient declined to be transferred to be seen by spine surgery team in the emergency room yesterday. Patient does not want any heroic measures. She does not want any surgical intervention. Patient wants to hopefully improve her function with therapy program. Positive blood culture for MRSE. 1 bottle left 2. I highly suspect that this is contaminant. I would request repeat blood culture and give the patient 1 dose of vancomycin until final culture and sensitivity is back. Hypokalemia Potassium supplementation. Chronic constipation, probable ileus secondary to opiates that she takes Continue stool softeners and stimulant. Chronic medical conditions not listed above, incidental findings seen on labs and imaging. These would need to be addressed. Could be addressed when time and condition are appropriate. Could be addressed in the outpatient setting by PCP collaboration with other needed outpatient providers. Urinary Catheter Management Urinary Catheter Management Urethral: Cath placed during this visit: yes Urethral indwelling: No Insertion date: 07/08/25 Insertion time: 12:37
[2025-07-09] MEDS: VANCOMYCIN HCL 1,250 MG in 0.9 % SODIUM CHLORIDE 250 ML 166.667 MG IV (11:50)
[2025-07-09] MEDS: POTASSIUM CHLORIDE 10 MEQ ER TABLET 20 MEQ PO (11:50)
--- OUTSIDE RECORDS SUMMARY | 2025-07-09 20:05 | XMS_ITS | Continuity of Care Document ---
Author Organization [facility] Address [address] [place] [address] Phone Care Team Providers Care Care Navigator Name Role Phone Jackelyn Arreola MD Attending Provider [phone] Care Teams Patient Care Team Team Status: Inactive Member Role Status Dates Jackelyn Arreola MD Attending Provider Active Sta rt: July 08, 2025 End: July 08, 2025 Chief Complaint and Reason for Visit Chief Complaint Admit Date Unknown July 08, 2025 12 :04pm Allergies, Adverse Reactions, Alerts Allergen Type Severity Reaction Last Updated Verified Status cat dander Allergy Unknown Sneezing April 08, 2022 1:01pm Yes Active codeine Allergy Unknown Unknown Reaction April 1:01pm Yes Active glycerin Allergy Unknown Unknown Reaction April 1:01pm Yes Active latex Allergy Unknown Unknown Reaction April 1:01pm Yes Active lidocaine Allergy Unknown Unknown Reaction April 1:01pm Yes Active meperidine Allergy Unknown Confusion April 08, 2022 1:01pm Yes Active mold Allergy Unknown Sneezing April 08, 2022 1:01pm Yes Active NSAIDS (Non-Steroidal Anti-Inflamma Allergy Unknown Rash April 08, 2022 1:01pm Yes Active Sulfa (Sulfonamide Antibiotics) Allergy Unknown Rash April 08, 2022 1:01pm Yes Active Social History Smoking Status Status Start Date End Date Date of Observa tion Ex-smoker (finding) April 1:14pm Observation Status Observation Response Date of Response Legal Sex Female (finding) Sex Assigned At Female June Family History Relationship Condition Age at Onset Recorded Date/T scott mother Malignant neoplasm Unknown daughter Malignant neoplasm Unknown sister Malignant neoplasm Unknown Problems Active Problems Medical Problem Onset Date Status Dementia Unknown Active Dermatitis Unknown Active Limited mobility Unknown Active Inflammation Unknown Active Requires daily assistance fo r activities of daily living (ADL) and comfort needs Unknown Active Gastrointestinal fistula Unknown Active Surgical wound, non healing Unknown Acti ve Obesity Unknown Active Inactive/Resolved Problems Medical Problem Onset Date Status Candidiasis Unknown Resolved Medications Medication Status Dose Units Route Directions Qty Days St art Date Stop Date End Date Instructions Adherence Cyclobenzap rine 10 mg tablet Discont inued 2017 1:00am May 10, 2019 11:25 am Gabapentin 600 mg tablet Active 800 MG PO Daily 2017 1:00am Unknown Donepezil 5 mg tablet Active 5 MG PO Daily 2017 1:00am Unknown Atenolol 25 mg tablet Active 12.5 MG PO Daily 2017 1:00am Unknown Pantoprazol e 40 mg tablet,betsy yed release (DR/EC) Discont inued 2017 1:00am May 10, 2019 11:35 am Pantoprazol e 40 mg tablet,betsy yed release (DR/EC) Active 40 MG PO Daily 2017 1:00am Unknown Escitalopra m Oxalate 20 mg tablet Active 20 MG PO Twice daily 2017 1:00am Unknown Cyclobenzap rine 5 mg tablet Discont inued 2017 1:00am May 10, 2019 11:25 am Ferrous Sulfate 324 mg (65 mg iron) tablet,betsy yed release (DR/EC) Discont inued 325 MG PO Twice daily 2017 1:00am 2019 2:03p m Buprenorphi ne 20 mcg/hour patch weekly Active 20 mcg/hr TOPICA L every week 2017 1:00am Unknown Calcium Carbonate-V itamin D3 (Caltrate 600 + D) 600 mg (1,500 mg)-800 unit Tablet,Chew able Active 1 TAB PO Daily 2017 1:00am Unknown Multivitami n (Daily-Justo ) Tablet Active 1 TAB PO Daily 2017 1:00am Unknown Chlorphenir amine Maleate (Chlor-Trim eton) 4 mg Tablet Active 2 MG PO Daily 2017 1:00am Unknown Hydrochloro thiazide 50 mg Tablet Discont inued 2017 1:00am May 10, 2019 11:35 am Albuterol Sulfate (Proair Hfa) 90 mcg/actuati on Hfa Aerosol Inhaler Active 2 PUFF INHALA TION Every 6 hours as needed for Shortness Of Breath 2017 1:00am Unknown Triamcinolo ne Acetonide 0.1 % ointment Active 1 APPLIC TOPICA L Daily 30 2017 1:00am apply daily as discussed, no more than 2 wks Unknown Ciprofloxac in Hcl (Cipro) 500 mg Tablet Discont inued 500 MG PO Twice daily March 17, 2021 12:00a m Augus t 2020 11:25 am Cefdinir 300 mg Capsule Discont inued 600 MG PO Daily February 11, 2022 12:00a m April 08, 2022 1:02p m Valacyclovi r 1 gram tablet Active 1000 MG PO Three times daily February 11, 2022 12:00a m Unknown Trazodone 50 mg Tablet Discont inued 25 MG PO Daily at bedtime May 10, 2019 12:00a m Septe mber 2019 2:04p m Spironolact one 25 mg Tablet Active 25 MG PO Daily May 10, 2019 12:00a m Unknown Cyclobenzap rine 10 mg Tablet Active 10 MG PO Twice daily as needed for Muscle Spasm May 10, 2019 12:00a m Unknown Metformin 500 mg Tablet Active 500 MG PO Daily May 10, 2019 12:00a m Unknown Acetaminoph en 650 mg Suppository Discont inued 650 MG KS Q6H as needed for Fever May 10, 2019 12:00a m Janua 2020 8:57a m Cyanocobala min (Vitamin B-12) (Vitamin B-12) 2,500 mcg Tablet, Sublingual Active 2500 MCG SUBLIN GUAL Daily May 10, 2019 12:00a m Unknown Polyethylen e Glycol 3350 (Miralax) 17 gram Powder In Packet Active 17 GM PO Daily as needed for Constipatio n May 10, 2019 12:00a m Unknown Sennosides- Docusate Sodium (Senna-S) 8.6-50 mg Tablet Discont inued 2 TAB PO Daily at bedtime May 10, 2019 12:00a m [facility] 2019 2:05p m Meclizine 12.5 mg Tablet Active 12.5 MG PO Daily as needed for Dizziness May 10, 2019 12:00a m Unknown Risperidone 0.25 mg Tablet Active 0.25 MG PO Twice daily May 10, 2019 12:00a m Unknown Allopurinol 100 mg tablet Active 100 MG PO Daily May 10, 2019 12:00a m Unknown Acetaminoph en 650 mg Tablet Extended Release Active 650 MG PO EVERY 4-6 HOURS as needed for Pain May 10, 2019 12:00a m Unknown Oxycodone-A cetaminophe n 5-325 mg Tablet Discont inued 2 TAB PO EVERY 4-6 HOURS as needed for Pain May 10, 2019 12:00a m [facility] 2019 2:05p m Pravastatin 10 mg Tablet Active 10 MG PO Daily May 10, 2019 12:00a m Unknown Ondansetron 4 mg Tablet,Disi ntegrating Active 4 MG PO Q4H as needed for Nausea May 10, 2019 12:00a m Unknown L.Acidoph-L .Bulg-B.Bif -S.Therm (Bacid (L. Acidophilus )) 1 billion cell- 250 mg Tablet Discont inued 1 TAB PO Twice daily May 10, 2019 12:00a m [facility] 2019 2:05p m Lactobacill us Combination No.4 (Probiotic) 3 billion cell Capsule Active 3000 MMU CELLS PO Daily May 10, 2019 12:00a m Unknown Doxycycline Hyclate 100 mg capsule Discont inued 100 MG PO Twice daily r 2018 12:00a m [facility] 2019 9:03a m avoid taking Calcium/Iron at the same time as the Doxy Procedures Procedure Date Performed Status Blood Culture July 08, 2025 active Advance Directives Advance Directive Response Recorded Date/ Time Advance Directives No December 11:26am Insurance Providers Guarantor Dahlia Giordano Address [address] [place] [phone] Contact Info. Home Phone: Payer Policy Id Subscriber's Name Subscriber Id Effectiv e Date Expiration Date [id number] Dahlia Giordano [id number] Aetna Mcr PFFS Non Pt [id number] Dahlia Romeroacher [id number] Encounters Encounter Location(s) Arrival/Admit Date Discharge/Depart Date Provider(s) Departed Referred -[facility] July 08, 2025 12:04pm July 08, 2025 12:05pm Jackelyn Arreola MD Plan of Treatment Future Tests Future scheduled test information is unavailable Pending Tests Pending diagnostic test information is unavailable Future Visits Future appointment information is unavailable Referrals to Other Providers Referral information is unavailable Future Procedures Procedure Name Ordered Date Scheduled Date Blood Culture July 09, 2025 12:04pm Augu [facility] 2024 12:04pm Future Medications Future medication information is unavailable Patient Instructions Patient instructions are unavailable
[2025-07-09] MEDS: ATORVASTATIN CALCIUM 10 MG TABLET 80 MG PO (21:13)
[2025-07-09] MEDS: DONEPEZIL HCL 5 MG TABLET PO (21:13)
[2025-07-10] VITALS (17 sets, daily range): BP systolic 117–143; BP diastolic 64–77; PULSE 71–85; TEMP 36.5–36.7; O2SAT 90–93; BMI 10.0
[2025-07-10] MEDS: HEPARIN SODIUM (PORCINE) 5,000 UNIT/ML VIAL 5000 UNIT SUBQ ×3 (03:19→18:45)
[2025-07-10 05:31] LABS: Anion Gap 12.8; Blood Urea Nitrogen 55.0 mg/dL (7.0-18.0); Calcium 8.5 mg/dL (8.5-10.1); Carbon Dioxide 26.9 mmol/L (21.0-32.0); Chloride 108 mmol/L (98-107); Estimated GFR (African America 33 (>=60 mL/min/1.73m^2); Estimated GFR (Non-African Ame 27 (>=60 mL/min/1.73m^2); Glucose 134 mg/dL (74-106); Potassium 3.7 mmol/L (3.5-5.1); Sodium 144 mmol/L (136-145)
[2025-07-10] MEDS: LEVOTHYROXINE SODIUM 25 MCG TABLET 50 MCG PO (05:38)
[2025-07-10] MEDS: AMLODIPINE BESYLATE 5 MG TABLET 2.5 MG PO (08:56)
[2025-07-10] MEDS: DOCUSATE SODIUM 100 MG CAPSULE PO ×2 (08:56→22:35)
[2025-07-10] MEDS: PANTOPRAZOLE SODIUM 40 MG TABLET.DR PO (08:56)
[2025-07-10] MEDS: POLYETHYLENE GLYCOL 3350 17 GM POWDER PACKET PO ×2 (08:56→22:34)
[2025-07-10] MEDS: ALLOPURINOL 100 MG TABLET PO (08:57)
[2025-07-10] MEDS: ASPIRIN 325 MG TABLET PO (08:57)
[2025-07-10] MEDS: SENNOSIDES/DOCUSATE SODIUM 1 TAB TABLET 2 TAB PO (08:57)
[2025-07-10] MEDS: METOPROLOL SUCCINATE 25 MG TAB.ER.24H PO (08:57)
[2025-07-10] MEDS: ESCITALOPRAM 10 MG TABLET 20 MG PO (08:58)
--- NOTE | 2025-07-10 09:10 | CM.NOTE ---
Rounds made with Dr. Jade, discussed plan of care with pt and reason for admission. No discharge today.
--- NOTE | 2025-07-10 10:03 | SWNOTE1 ---
SW reached out to Lula and Eugene at [facility]. Pt is still there skilled. Eugene let SW know she did reach out to daughter, Divya, and they are not paying to hold the bed. SW to reach out to Divya as well.
--- NOTE | 2025-07-10 10:51 | CA_ITS ---
Patient Name: VIDHYA REGALADO MR#: [id number] : 1940 Exam Date: 07/10/2025 Ordering Doctor: [facility] ECHOCARDIOGRAM REPORT PROCEDURE: CA ECHO DOPPLER COMPLETE INDICATIONS: NSTEMI, hypertension, diabetes, chronic kidney disease COMPARISON: None. DESCRIPTION: COMPLETE ECHOCARDIOGRAM Real-time transthoracic echocardiography with 2D, M-mode, spectral and color flow Doppler performed. QUALITY: Technical quality was good. LEFT VENTRICLE: Normal chamber size. Normal left ventricular wall thickness. Velocities are increased in the left ventricular outflow tract likely related to hyperdynamic left ventricular systolic function. LV EF: Global left ventricular systolic function is hyperdynamic; visually estimated ejection fraction is 70 to 75%. No significant wall motion abnormalities. DIASTOLIC: Grade II diastolic dysfunction. ATRIAL SEPTUM: Visually appears intact. LEFT ATRIUM: Mild dilatation. RIGHT ATRIUM: Normal chamber size. RIGHT VENTRICLE: Normal chamber size. Normal right ventricular systolic function. TRICUSPID VALVE: Normal mobility and thickness. No stenosis with no regurgitation. MITRAL VALVE: Normal mobility and thickness. No evidence of mitral valve stenosis. Mild mitral annular calcification. No mitral regurgitation. AORTIC VALVE: Normal trileaflet appearance. No visible sclerosis. Normal leaflet mobility. No evidence of aortic valve stenosis. No aortic regurgitation. AORTIC ROOT: Normal diameter and appearance. Ascending aorta is normal in size. PULMONIC VALVE: Normal thickness and mobility. No stenosis. Trivial regurgitation. PERICARDIUM: Anterior free space; trivial effusion versus fat pad. IVC: Collapses with inspiration. IVC is normal in size. CONCLUSION: Global left ventricular systolic function is hyperdynamic; visually estimated ejection fraction is 70 to 75% Normal right ventricular size and systolic function The left atrium is mildly dilated Grade 2 diastolic dysfunction No significant valvular abnormalities Anterior free space; trivial effusion versus fat pad Adult Echocardiography Procedure Report Left Ventricle LVEDD (3.7 - 5.6 cm): 4.20 cm LVESD (2.2 - 4.0 cm): 3.01 cm LVIVS thickness (0.6 - 1.2 cm): 0.96 cm LVPW thickness (0.5 - 1.0 cm): 0.77 cm e': 0.04 m/s E - e': 16.25 LVOT Max Gradient: 12.54 mm[Hg] LVOT Area (cm2): 1.77 m/s Peak Velocity (LVOT): 1.77 m/s Mean Velocity (LVOT): LVOT Diameter 2.06 cm Left Ventricular Ejection Fraction: Left Atrium LA Volume Index (2D A2C): 39.24 ml/m2 Left Atrium Systolic Dimension: 2.92 cm Mitral Valve MV E to A Ratio: 0.77 MV Max Gradient: MV Mean Gradient: Mitral Valve A-Wave Peak Velocity: 0.84 m/s Mitral Valve E-Wave Peak Velocity: 0.65 m/s Cardiovascular Orifice Area: Right Ventricle RV Internal Diastolic Dimension: Aorta AO Root Diam: 3.20 cm Ascending Ao Diam: 2.90 cm Aortic Valve AoV Area (Peak Aaron): 3.57 cm2, 3.57 cm2 AoV Area (VTI): Deceleration [place]: Pressure Half-Time: Peak Velocity(Antegrade Flow): 1.66 m/s Peak Gradient(Antegrade Flow): 11.00 mm[Hg] Mean Velocity(Antegrade Flow): 1.12 m/s Mean Gradient(Antegrade Flow): 5.77 mm[Hg] Velocity Time Integral: 30.97 cm Tricuspid Valve Peak Velocity (Regurgitant Flow): Peak Velocity: Pulmonic Valve Mean Gradient: Mean Velocity: Peak Velocity: Peak Gradient: 5.14 mm[Hg], 5.20 mm[Hg] Right Atrium Right Atrium Systolic Pressure: 27.19 ml, 27.19 ml Dictated by: Deshaun Vazquez M.D. on 07/10/2025 at 13:33 Approved by: Deshaun Vazquez M.D. on 07/10/2025 at 13:38
--- NOTE | 2025-07-10 12:43 | SWNOTE1 ---
SW called pt's daughter, Divya, had to leave message, waiting for call back.
--- NOTE | 2025-07-10 12:50 | P.PN_ITS ---
Progress Note: Subjective Subjective Interval history: Seen and evaluated this morning, she says she is still feeling a bit weak on her right side. She seems lethargic overall, she is awake and alert x3 which is an improvement from yesterday though she does just seem slow to answer. Exam Narrative Exam Narrative: General: Awake and alert, laying in bed. A little bit slow to answer but overall does seem improved from yesterday. HEENT: Normocephalic, atraumatic, neck brace present Lungs: Clear to auscultation bilaterally Cardiac: Regular rate and rhythm, no murmurs appreciated GI: Soft, nontender, regular bowel sounds. Extremities: Globally weak, she has good passive range of motion, very minimal effort with active range of motion. She does follow commands. Skin: No rashes or lesions, no signs of jaundice Constitutional Vital Signs, click to edit/add: Last Vital Signs Temp 97.7 F 07/10/25 11:18 Pulse 71 07/10/25 11:58 Resp 16 07/10/25 11:18 BP 120/75 07/10/25 11:18 Pulse Ox 93 L 07/10/25 11:18 O2 Del Method Room Air 07/10/25 11:18 Progress Note: Objective Labs Labs: [facility] 07/10/25 05:08 Sodium 144 Potassium 3.7 Chloride 108 H Carbon Dioxide 26.9 BUN 55.0 H Creatinine 1.78 H Glucose 134 H Calcium 8.5 Progress Note: A&P Assessment and Plan (1) Metabolic encephalopathy: Assessment and Plan: ? Appears to have improved since admission, might not be back to baseline yet but I do believe she is improving steadily. ? Continue aspirin and statin ? Likely secondary to CRISTINA on CKD ? Echocardiogram pending ? Carotid ultrasound showed no acute processes ? Bedside RN held her Lyrica this morning, she was much more awake and alert later on in the afternoon, there is likely a degree of polypharmacy involved with her symptoms (2) Elevated troponin: Assessment and Plan: ? Possibly secondary to her CRISTINA and hypotension on admission ? Case was discussed with on-call investigation division lieutenant on admission ? Echocardiogram pending ? Continue aspirin, beta-ghulam ? Cardiology consult pending (3) NSTEMI (non-ST elevated myocardial infarction): Assessment and Plan: See above (4) Hypokalemia: Assessment and Plan: Resolved, 3.7 this morning. It was 2.9 on admission ? Replenish as needed, check magnesium tomorrow morning (5) CRISTINA (acute kidney injury): Assessment and Plan: Resolved and at her baseline (6) Generalized weakness: Assessment and Plan: ? PT OT (7) Obesity: (8) Myelomalacia: Assessment and Plan: Chronic and stable, this is been an ongoing problem for around 6 years or so to the chart. Patient is still not interested in surgical options (9) Spinal stenosis: (10) CKD (chronic kidney disease): (11) Constipation: Urinary Catheter Management Urinary Catheter Management Urethral: Cath placed during this visit: yes Urethral indwelling: No Insertion date: 07/08/25 Insertion time: 12:37
[2025-07-10] MEDS: ENSURE HP 237 ML LIQUID PO ×2 (13:26→22:34)
--- NOTE | 2025-07-10 14:34 | SWNOTE1 ---
SW called and spoke to daughter, Divya. Divya voiced she would like to try and get pt in to [facility]. She stated pt sat on the bedside commode for several hours. She would like SW to call [facility] and check on beds. SW to check. Pt's daughter did also request that SW reach out to physician have him call her with updates as well. SW to reach out to Dr. Jade. SW to speak with pt about [facility] as well.
--- NOTE | 2025-07-10 14:40 | SWNOTE1 ---
Important Message from Medicare reviewed and discussed with patient and pt's daughter Divya Love. They both verbalized understanding and SW signed the form that it was reviewed. Original placed in pt's room and copy placed in patient?s chart.
--- NOTE | 2025-07-10 15:05 | SWNOTE1 ---
TONEY did reach out to [facility] and spoke to Lacey. She confirmed they do have a bed available and to send referral so they can review. Referral sent to [facility]. Referral included face sheet, ED note, H&P, provider notes, case management report, nursing notes, diagnostic imaging, med list, and PT/OT notes.
--- NOTE | 2025-07-10 15:51 | SWNOTE1 ---
SW stopped in to speak with pt. SW asked pt what brought her in. She tried to remember, but was having a hard time. She voiced they brought her to the emergency room. SW asked if she like it at the [facility]? She voiced that she did. SW let her know that SW spoke to her daughter, Divya, and she wants her to go to [facility] for rehab this time. SW asked pt if she would like to go to [facility], she stated, yeh. She asked SW what Divya wanted her to do, SW let her know that Divya wants her to go to [facility]. Pt in agreement. Pt's eyes started closing during conversation, SW let her know that she can take a nap. No other needs at this time. Referral has been sent to [facility], waiting to hear back if they can accept.
--- NOTE | 2025-07-10 17:19 | PM.CACN ---
History of Present Illness History of Present Illness Consult date: 07/10/25 Requesting physician: Magdy Momin Consult reason: chest pain Chief complaint: NSTEMI Narrative: 85-year-old lady with past medical history of CKD and uremia was recently discharged from [facility] following an admission for progressive weakness and cognitive decline. She is known to have dementia and hypothyroidism and was discharged to facility on 06/30/2025. Patient was noted to be more lethargic and was then sent to the emergency room for further evaluation. On evaluation it was noted that her mental status and functional status was not significantly different from baseline. She had a troponin that was noted to be 190 initially which increased to 199. EKG performed showed sinus rhythm with underlying right bundle branch block poor R wave progression. She was subsequently noted to have an echocardiogram which showed EF of 70 to 75% no evidence of wall motion abnormality and grade 2 diastolic dysfunction ECHO Global left ventricular systolic function is hyperdynamic; visually estimated ejection fraction is 70 to 75% Normal right ventricular size and systolic function The left atrium is mildly dilated Grade 2 diastolic dysfunction No significant valvular abnormalities Anterior free space; trivial effusion versus fat pad Review of Systems ROS Status of ROS 10 or more systems reviewed and unremarkable except as noted in history and below [facility] Medical History Fall ?W19.XXXA - Unspecified fall, initial encounter (ICD-10) Hyperkalemia ?E87.5 - Hyperkalemia (ICD-10) Peripheral vascular disease ?I73.9 - Peripheral vascular disease, unspecified (ICD-10) Nerve damage ?T14.8XXA - Other injury of unspecified body region, initial encounter (ICD-10) HTN (hypertension) ?I10 - Essential (primary) hypertension (ICD-10) Diabetes ?E11.9 - Type 2 diabetes mellitus without complications (ICD-10) Surgical History History of cholecystectomy ?Z90.49 - Acquired absence of other specified parts of digestive tract (ICD-10) H/O knee surgery ?Z98.890 - Other specified postprocedural states (ICD-10) History of hysterectomy ?Z90.710 - Acquired absence of both cervix and uterus (ICD-10) Previous back surgery ?Z98.890 - Other specified postprocedural states (ICD-10) H/O neck surgery ?Z98.890 - Other specified postprocedural states (ICD-10) Family History Mother Family history of cancer Other Family history of CHF (congestive heart failure) Social History (Updated 06/25/25 @ 20:28 by Carline Spivey RN) Within the past year, how often did you have a drink containing alcohol: never Within the past year, how often did you have six or more drinks on one occasion: never Score interpretation: A score less than 3 is consistent with normal alcohol consumption. Smoking status: Former smoker Second hand tobacco smoke exposure: Yes Non-prescribed substance use: denies use Known occupational exposures/hazards: No Highest level of school completed/degree received: high school graduate Do you want help with school or training: No Are you now , , , , never or living with a partner: In a typical week, how many times do you talk on the telephone with family, friends, or neighbors: twice per week How often do you get together with friends or relatives: twice per week Little interest or pleasure in doing things: not at all Feeling down, depressed, or hopeless: not at all Feel stressed/tense/nervous/anxious/difficulty sleeping: not at all Do you think of yourself as: straight/heterosexual Gender Identity: female Meds Home Medications and Allergies Home Medications ?Medication ?Instructions ?Recorded ?Confirmed ?Type allopurinol 100 mg tablet 100 mg PO DAILY 03/05/25 07/08/25 History donepezil 5 mg tablet 5 mg PO QPM 03/05/25 07/08/25 History levothyroxine 50 mcg tablet 50 mcg PO QAM 03/05/25 07/08/25 History vitamin B12 1 tab PO DAILY 03/05/25 07/08/25 History Melatonin 6 mg PO HS ##0 06/29/25 07/08/25 Rx acetaminophen 325 mg tablet 650 mg (2 x 325 mg) PO Q6H PRN 06/29/25 07/08/25 Rx (Tylenol) Pain/fever #0 tabs amlodipine 5 mg tablet 5 mg PO QD #0 tabs 06/29/25 07/08/25 Rx aspirin 81 mg tablet,delayed 81 mg PO QD #0 tabs 06/29/25 07/08/25 Rx release buprenorphine 20 mcg/hour weekly 1 patch transdermal Q7D #1 ea 06/29/25 07/08/25 Rx transdermal patch docusate sodium 100 mg capsule 100 mg PO BID #0 caps 06/29/25 07/08/25 Rx escitalopram oxalate 10 mg tablet 20 mg (2 x 10 mg) PO DAILY #0 tabs 06/29/25 07/08/25 Rx metoprolol succinate 25 mg 25 mg PO DAILY #30 tabs 06/29/25 07/08/25 Rx tablet,extended release 24 hr (Toprol XL) pregabalin 50 mg capsule 50 mg PO BID #20 caps 06/29/25 07/08/25 Rx sennosides 8.6 mg-docusate sodium 2 tab PO QD #0 tabs 06/29/25 07/08/25 Rx 50 mg tablet (Senna Plus) torsemide 20 mg tablet 20 mg PO QD #0 tabs 06/29/25 07/08/25 Rx atorvastatin 10 mg tablet (Lipitor) 10 mg PO DAILY 07/08/25 07/08/25 History diclofenac sodium 1 % topical gel 2 g topical BID 07/08/25 07/08/25 History magnesium hydroxide 400 mg/5 mL 30 ml PO BID PRN constipation 07/08/25 07/08/25 History oral suspension (Milk of Magnesia) pantoprazole 40 mg tablet,delayed 40 mg PO DAILY 07/08/25 07/08/25 History release polyethylene glycol 3350 17 gram 17 g PO BID 07/08/25 07/08/25 History oral powder packet Allergies Allergy/AdvReac Type Severity Reaction Status Date / Time codeine Allergy dizzy Verified 03/05/25 17:21 latex Allergy Rash Verified 03/05/25 17:21 meperidine (From Demerol) Allergy hallucinati Verified 03/05/25 17:21 on Sulfa (Sulfonamide Allergy Rash Verified 03/05/25 17:21 Antibiotics) Exam Narrative Exam Narrative: General: Awake and alert, laying in bed. A little bit slow to answer but overall does seem improved from yesterday. HEENT: Normocephalic, atraumatic, neck brace present Lungs: Clear to auscultation bilaterally Cardiac: Regular rate and rhythm, no murmurs appreciated GI: Soft, nontender, regular bowel sounds. Extremities: Globally weak, she has good passive range of motion, very minimal effort with active range of motion. She does follow commands. Skin: No rashes or lesions, no signs of jaundice Constitutional Vital Signs, click to edit/add: Last Vital Signs Temp 98.0 F 07/10/25 15:42 Pulse 76 07/10/25 15:43 Resp 16 07/10/25 15:42 BP 117/68 07/10/25 15:42 Pulse Ox 93 L 07/10/25 15:42 O2 Del Method Room Air 07/10/25 15:42 Results Labs and Meds Lab results: Comprehensive Metabolic Panel 07/10/25 Range/Units 05:08 Sodium 144 (136-145) mmol/L Potassium 3.7 (3.5-5.1) mmol/L Chloride 108 H (98-107) mmol/L Carbon Dioxide 26.9 (21.0-32.0) mmol/L BUN 55.0 H (7.0-18.0) mg/dL Creatinine 1.78 H (0.55-1.02) mg/dL Glucose 134 H (74-106) mg/dL Calcium 8.5 (8.5-10.1) mg/dL Intake and Output 07/10/25 07/10/25 07/10/25 07:59 15:59 23:59 Intake Total 150 / 1800 737 / 737 Output Total 525 / 1025 Balance -375 / 775 737 / 737 Intake: Oral 150 / 550 737 / 737 Output: Urine Amount (Catheter) 525 / 1025 Urethral 525 / 1025 Other: # Bowel Movements 1 Imaging and Cardiology Echo: report reviewed EKG Interpretation EKG: sinus rhythm Assessment and Plan Assessment and Plan (1) Elevated troponin: (2) NSTEMI (non-ST elevated myocardial infarction): (3) CRISTINA (acute kidney injury): (4) Generalized weakness: (5) Metabolic encephalopathy: (6) CKD (chronic kidney disease): Qualifiers: Chronic kidney disease stage: stage 3 (moderate) Plan Pt has evidence of troponin leak no acute EKG evidence of ischemia. I do not have a repeat EKG to compare the progression but given that the echocardiogram does not show any wall motion abnormalities this is less likely related to be a plaque rupture and more likely type II NE. At this stage I would recommend medical management for the above. Depending upon the long-term goals, especially given the underlying dementia of the patient consideration for noninvasive coronary evaluation such as Lexiscan can be entertained. I will continue with medical management for the moment. Please repeat serial EKGs and troponins.
--- NOTE | 2025-07-10 17:35 | ECG_ITS ---
[facility] Test Date: 2025-07-10 Pat Name: VIDHYA REGALADO Department: Room: 2141 Gender: Female [employer] Operator: : [id number] Requested By: SANDEEP DEL TORO Order Number: [id number] Reading MD: BJORN PRINCE Measurements Intervals [place] Rate: 76 P: 24 UT: 197 QRS: -21 QRSD: 134 T: 11 QT: 444 QTc: 502 Interpretive Statements SINUS RHYTHM INDETERMINATE AXIS RIGHT BUNDLE BRANCH BLOCK [120+ ms QRS DURATION, UPRIGHT V1, 40+ ms S IN I/aVL/V4/V5/V6] Compared to ECG 07/08/2025 11:15:34 Left anterior fascicular block no longer present Electronically Signed On 07-11-2025 13:57:18 EDT by BJORN PRINCE
[2025-07-10] MEDS: DONEPEZIL HCL 5 MG TABLET PO (20:29)
[2025-07-10] MEDS: ACETAMINOPHEN 325 MG TABLET 650 MG PO (20:29)
[2025-07-10] MEDS: PREGABALIN 50 MG CAPSULE PO (22:34)
[2025-07-10] MEDS: ATORVASTATIN CALCIUM 10 MG TABLET 80 MG PO (22:35)
[2025-07-11] VITALS (15 sets, daily range): BP systolic 106–133; BP diastolic 64–76; PULSE 66–84; TEMP 36.5–36.8; O2SAT 90–93
[2025-07-11] MEDS: HEPARIN SODIUM (PORCINE) 5,000 UNIT/ML VIAL 5000 UNIT SUBQ ×3 (02:19→17:40)
[2025-07-11 05:42] LABS: Hematocrit 37.2 % (36.0-48.0); Hemoglobin 11.7 g/dL (12.0-16.0); Mean Corpuscular HGB Conc 31.5 g/dL (29.9-35.2); Mean Corpuscular Hemoglobin 27.3 pg (26.7-34.0); Mean Corpuscular Volume 86.7 fL (81.0-99.0); Platelet Count 164 10^3/uL (150-450); Red Blood Count 4.29 10^6/uL (4.20-5.40); White Blood Count 8.1 10^3/uL (4.0-11.0)
[2025-07-11 05:53] LABS: Anion Gap 11.6; Blood Urea Nitrogen 43.0 mg/dL (7.0-18.0); Calcium 8.6 mg/dL (8.5-10.1); Carbon Dioxide 28.3 mmol/L (21.0-32.0); Chloride 106 mmol/L (98-107); Estimated GFR (African America 42 (>=60 mL/min/1.73m^2); Estimated GFR (Non-African Ame 35 (>=60 mL/min/1.73m^2); Glucose 124 mg/dL (74-106); Magnesium 1.9 mg/dL (1.8-2.4); Potassium 3.9 mmol/L (3.5-5.1); Sodium 142 mmol/L (136-145)
[2025-07-11] MEDS: LEVOTHYROXINE SODIUM 25 MCG TABLET 50 MCG PO (05:58)
[2025-07-11] MEDS: ENSURE HP 237 ML LIQUID PO ×3 (05:58→17:40)
[2025-07-11] MEDS: DOCUSATE SODIUM 100 MG CAPSULE PO ×2 (08:48→21:51)
[2025-07-11] MEDS: ESCITALOPRAM 10 MG TABLET 20 MG PO (08:48)
[2025-07-11] MEDS: AMLODIPINE BESYLATE 5 MG TABLET 2.5 MG PO (08:48)
[2025-07-11] MEDS: POLYETHYLENE GLYCOL 3350 17 GM POWDER PACKET PO ×2 (08:48→21:52)
[2025-07-11] MEDS: ASPIRIN 325 MG TABLET PO (08:48)
[2025-07-11] MEDS: PANTOPRAZOLE SODIUM 40 MG TABLET.DR PO (08:49)
[2025-07-11] MEDS: METOPROLOL SUCCINATE 25 MG TAB.ER.24H PO (08:49)
[2025-07-11] MEDS: ALLOPURINOL 100 MG TABLET PO (08:49)
[2025-07-11] MEDS: PREGABALIN 50 MG CAPSULE PO ×2 (08:50→21:51)
[2025-07-11] MEDS: SENNOSIDES/DOCUSATE SODIUM 1 TAB TABLET 2 TAB PO (08:50)
--- NOTE | 2025-07-11 08:50 | SWNOTE1 ---
TONEY received a message from Lacey at [facility] and they are able to accept and they will start precert today. SW to call daughter. TONEY messaged case management as well.
--- NOTE | 2025-07-11 09:10 | CM.NOTE ---
Rounds made with Dr. Jade, no discharge today. Pt will discharge to [facility] when medically stable.
--- NOTE | 2025-07-11 09:56 | SWNOTE1 ---
TONEY stopped in to speak with pt. She was laying awake in bed. SW let pt know that [facility] has accepted her and now we have to wait for her insurance to approved her. She voiced that was great. SW did ask pt if she knew where she was at right now, pt then stated her name and date of . SW asked again if she knew where she was at? Pt stated a hospital, SW let her know it was the [facility]. SW asked if she remembered where she was at prior to the hospital, she could not remember. SW did remind her that she was at the [facility] for rehab prior to coming here. SW stated, that's right. SW then reminded her that [facility] is where Divya wanted her to go for rehab this time and pt has agreed to this. TONEY asked if she spoke with Divya this morning? She stated no. Pt's breakfast then came to room. TONEY asked if she would like to call daughter after eating breakfast? She stated yes. SW to stop back in later this morning.
--- NOTE | 2025-07-11 11:24 | PT.DAILY ---
Physical Therapy Daily Note PT Daily Note/Assess Start: 07/11/25 11:13 Freq: Status: Active Protocol: Document 07/11/25 11:14 CHAZ (Rec: 07/11/25 11:23 CHAZ [id number]) Physical Therapy Daily Note/Assessment Time In/Time Out Time In 10:40 Time Out 11:10 Pain In Pain N/A Pain Out Pain N/A Subjective Subjective Pt supine upon arrival. Agreeable to PT this morning. Denies pain currently but reports bilat hand numbness Therapeutic Exercise Time Therapeutic Exercise 8 Minutes (minutes) Therapeutic Exercise 1 Units Therapeutic Exercise Treatment Therapeutic Exercise AA/PROM to bilat LE to maintain mobility and regain Treatment strength. Some effort excreted on this date - minimal resistance noticed with PROM motions. Seated LAQ and AP 15x ea Therapeutic Activity Time Therapeutic Activity 15 Minutes (minutes) Therapeutic Activity 1 Units Therapeutic Activity Treatment Bed Mobility Ability Maximum Assist Therapeutic Activity Supine>sit MaxA to advance hips and upper body to sit Comments at EOB. Pt sits EOB 10 min with occ Mihir due to posterior/R lateral lean. Able to perform active LAQ and AP while sitting EOB with min LOB posteriorly - Mihir to correct. Pt unable to weight through hands with sitting - reports numbness/weakness. Pt requires MaxA to return to supine to advance LEs and adjust trunk in bed. Unable to roll side to side to help with positioning - total assist to scoot pt up and to the side in bed with bed pad. Pillows placed under bilat arms and LEs. Call light within reach and bed alarm set . Total Physical Therapy Time Total Therapy 23 Minutes Total Physical 2 Therapy Units Summary Daily Note Summary Improved cooperation on this date. Considerable weakness noticed but improved seated tolerance and endurance. Would benefit from SNF to regain strength, endurance and functional mobility to return to PLOF.
--- NOTE | 2025-07-11 11:41 | SWNOTE1 ---
TONEY faxed updated PT/OT notes, vitals, labs, and nursing notes to Yamileth at [facility] to submit to precert.
--- NOTE | 2025-07-11 12:43 | P.PN_ITS ---
Progress Note: Subjective Subjective Interval history: Seen and evaluated this morning, she is much more awake and alert than she was yesterday. She still describes bilateral hand weakness though it does appear to be improving. I had a long talk with the daughter this morning, spent about 35 minutes on the phone in regards to her mom's overall health care and status of her neck. I explained to the daughter that she was here this time with dehydration, she did not seem to be willing to feed herself so it is likely she became quite dehydrated at the nursing facility. This led to her CRISTINA which resolved with fluids, likely was also the cause of her NSTEMI. At this point in time the patient has repeatedly said no to surgical intervention of her neck, I did discuss the prior note on June [address] Momin spoke with the patient about considering transfer for evaluation by a spinal surgeon. Patient said no on June 26, she again said no for me this morning when I talked to her about it. I brought up the idea of hospice care to the daughter and the patient, the patient says that she was previous on hospice years ago for shingles pain when it was really bad and she has no objections to a hospice evaluation/consult at the patient is agreeable. I did discuss with the patient in the afternoon of July 11, she was also agreeable for this. Exam Narrative Exam Narrative: General: Awake and alert, no acute distress HEENT: Normocephalic, atraumatic, no scleral icterus noted Lungs: Clear to auscultation bilaterally Cardiac: Regular rate and rhythm, no murmurs appreciated GI: Soft, nontender, regular bowel sounds. Extremities: Active and passive range of motion intact throughout though she does appear weak with her bilateral upper extremities. Neuro: Cranial nerves II through XII intact, no focal deficits noted Skin: No rashes or lesions, no signs of jaundice Constitutional Vital Signs, click to edit/add: Last Vital Signs Temp 97.7 F 07/11/25 11:38 Pulse 71 07/11/25 11:54 Resp 18 07/11/25 11:38 BP 118/72 07/11/25 11:38 Pulse Ox 93 L 07/11/25 11:38 O2 Del Method Room Air 07/11/25 11:38 Progress Note: Objective Labs Labs: Short CBC 07/11/25 Range/Units 05:25 WBC 8.1 (4.0-11.0) 10^3/uL Hgb 11.7 L (12.0-16.0) g/dL Hct 37.2 (36.0-48.0) % Plt Count 164 (150-450) 10^3/uL BMP 07/11/25 05:25 Sodium 142 Potassium 3.9 Chloride 106 Carbon Dioxide 28.3 BUN 43.0 H Creatinine 1.42 H Glucose 124 H Calcium 8.6 Progress Note: A&P Assessment and Plan (1) Elevated troponin: Assessment and Plan: ? Secondary to dehydration/CRISTINA ? Cardiology on consult, troponins trending down ? Echocardiogram reveals no wall motion abnormality ? Likely does not require further intervention or lab evaluation (2) NSTEMI (non-ST elevated myocardial infarction): (3) CRISTINA (acute kidney injury): Assessment and Plan: Secondary to dehydration, resolved. Continue with encouraging oral intake ? Check labs tomorrow morning (4) Generalized weakness: Assessment and Plan: This is likely multifactorial from deconditioning as well as her known cervical stenosis/myelomalacia, she has consistently said no to surgical evaluation/intervention. ? This is consistent with her wishes today, she told me this morning she does n ot want any surgical evaluation for this ? Had a long discussion that without any intervention, this weakness will likely become worse as time goes despite receiving therapy or not. At this point in time I recommended a hospice consult, patient and daughter are both agreeable. (5) Metabolic encephalopathy: Assessment and Plan: ? Secondary to CRISTINA, resolved (6) CKD (chronic kidney disease): Assessment and Plan: Stable Qualifiers: Chronic kidney disease stage: stage 3 (moderate) Urinary Catheter Management Urinary Catheter Management Urethral: Cath placed during this visit: yes Urethral indwelling: No Insertion date: 07/08/25 Insertion time: 12:37
--- NOTE | 2025-07-11 13:04 | SWNOTE1 ---
SW received a message from nurse and hospice consult was placed. SW went to pt's room and attempted to call pt's daughter, Divya, with pt. Divya did not answer. SW left a message for her to return call to discuss hospice consultation.
--- NOTE | 2025-07-11 14:02 | SWNOTE1 ---
SW attempted to call pt's daughter, Divya, no answer.
--- NOTE | 2025-07-11 14:48 | SWNOTE1 ---
SW called daughter, Divya, again and there was no answer.
--- NOTE | 2025-07-11 14:51 | SWNOTE1 ---
SW to speak with pt about hospice companies.
--- NOTE | 2025-07-11 15:10 | SWNOTE1 ---
SW stopped in pt's room and let her know that SW has attempted to call Divya several times today and she is not answering. SW explained to pt that earlier Dr. Jade did come in and speak with her about having a hospice consultation. SW asked if she remembered. Pt did state, yeah. SW asked if she is open to talking to hospice to see how they can assist. She voiced yes. SW asked if she had a preference on hospice companies, pt voiced she does not. SW advised that we will send referral to [facility] and if her daughter does not agree we can send elsewhere. Pt in agreement. Referral sent to [facility]. Referral included face sheet, ED note, H&P, provider notes, case management report, nursing notes, diagnostic imaging, med list, PT/OT notes, DNR order, HCPOA, and hospice order.
--- NOTE | 2025-07-11 15:16 | SWNOTE1 ---
TONEY called Divya again and left voicemail letting her know the referral has been sent to [facility]. TONEY did let Divya know in the voicemail if she would like another hospice agency to call TONEY and we can change and send referral elsewhere. TONEY updated nurse.
[2025-07-11] MEDS: ATORVASTATIN CALCIUM 10 MG TABLET 80 MG PO (21:51)
[2025-07-11] MEDS: DONEPEZIL HCL 5 MG TABLET PO (21:52)
--- OUTSIDE RECORDS SUMMARY | 2025-07-12 00:42 | XMS_ITS | CCD ---
Author Organization [facility] Care Team Providers Care Hotel Or Motel Manager Name Role Phone ABEBE, JIANLIN Unavailable Unavailable ABEBE, JIANLIN Unavailable Unavailable DURBIN, TAN Unavailable Unavailable DURBIN, TAN Unavailable Unavailable ABEBE, JIANLIN Unavailable Unavailable ABEBE, JIANLIN Unavailable Unavailable PAVLOCK, MAX ANAND Unavailable Unavailable PAVLOCK, MAX ANAND Unavailable Unavailable ABEBE, JIANLIN Unavailable Unavailable ABEBE, JIANLIN Unavailable Unavailable PAVLOCK, MAX ANAND Unavailable Unavailable PAVLOCK, MAX ANAND Unavailable Unavailable [place] Unavailable Unavailable ABEBE, JIANLIN Unavailable Unavailable KAEL [...] Unavailable Kael Adkins MD Primary Care Provider [phone] ANNA KUMAR Attending Unavailable MD Kael Adkins Primary Care Provider [phone] ZHANG ScottN Wendy Attending Provider Kael Adkins MD Attending Provider STACIA KELLER Attending Unavailable PROVIDER, CONVERSION Primary Care Unavailable PROVIDER, CONVERSION Primary Care Unavailable PROVIDER, CONVERSION Primary Care Unavailable PROVIDER, CONVERSION Primary Care Unavailable PROVIDER, CONVERSION Primary Care Unavailable Jackelyn Arreola MD Attending Provider [phone] Kael Adkins Admitting Unavailable Kael Adkins Attending Unavailable Jackelyn Arreola Attending Unavailable Jackelyn Arreola Admitting Unavailable Allergies Allergy Classification Reported Allergen(s) Allergy Type Date of Onset Reaction(s) Facility (6 sources) codeine Drug Allergy 12-28-19 13 AOF, Unknown Reaction [facility] Repository (1 source) Dust; Translations: [Dust] Propensity to adverse reactions (disorder) 12-28-19 13 [facility] Repository (4 sources) glycerin Drug Allergy 12-28-19 13 Unknown Reaction [facility] Rep[facility] (1 source) Grass pollen; Translations: [grass pollen] Propensity to adverse reactions (disorder) 12-28-19 13 [facility] Repository (6 sources) Latex Drug allergy (disorder) 12-28-19 13 Unknown Reaction [facility] Repository (2 sources) meperidine Drug Allergy 12-28-19 13 AOF [facility] Repository (5 sources) mold extract; Translations: [Mold] Drug Allergy 12-28-19 13 Sneezing [facility] Repository (3 sources) nitrofurantoin Drug Allergy 12-23-19 16 [facility] Rep[facility] (1 source) sulfamethoxazole / trimethoprim Drug Allergy 12-28-19 13 [facility] Repository (2 sources) Desonide Drug Allergy 06-13-20 13 [facility] Repository (2 sources) Glycerin Drug Allergy 06-13-20 13 [facility] Repository (5 sources) Lidocaine Drug Allergy 06-13-20 13 Unknown Reaction [facility] Repository (2 sources) Meperidine Drug Allergy 12-23-19 16 [facility] Rep[facility] (2 sources) Sulfonamides (Antibiotic) Drug allergy (disorder) 12-23-19 16 [facility] Repository (2 sources) Grass Pollen-[place], Standard Drug allergy (disorder) 06-13-20 13 [facility] Repository (2 sources) Misc-ENV; Translations: [Misc-ENV] Propensity to adverse reactions (disorder) 06-13-20 13 [facility] Repository (4 sources) Meperidine; Translations: [meperidine] Drug Allergy 04-08-20 [facility] (4 sources) Sulfonamides (Antibiotic); Translations: [Sulfa (Sulfonamide Antibiotics)] Allergy to substance 04-08-20 [facility] (4 sources) cat dander; Translations: [cat dander] Allergy to substance 04-08-20 Sneezing [facility] (4 sources) NSAIDS (Non-Steroidal Anti-Inflamma; Translations: [NSAIDS (Non-Steroidal Anti-Inflamma] Allergy to substance 04-08-20 [facility] (1 source) Codeine Drug Allergy 04-08-20 [facility] Repository (1 source) Glycerin Drug Allergy 04-08-20 [facility] Repository (1 source) Latex Drug allergy (disorder) 04-08-20 [facility] Repository (1 source) Lidocaine Drug Allergy 04-08-20 [facility] Repository Medications Current Medications Medication Drug Class(es) Dates Sig (Normalized) Sig (Original) 8 hr acetaminophen 650 mg extended release oral tablet (6 sources) Start: 05-10-2019 take 1 tablet by mouth every four to six hours as needed for pain Start: 05-10-2019 End: 11-14-2020 Acetaminophen 650 mg Supposi tory Discontinued 650 MG [place] Q6H as needed for Fever May 10, 2019 12:00am November 14, 2020 8:57am [id number] 200 actuat albuterol 0.09 mg/actuat metered dose inhaler (1 source) beta2-Adrenergic Agonist Start: 12-23-2017 take 1 puff(s) by inhalation [...] 2017 1:00am allopurinol 100 mg oral tablet (3 sources) Xanthine Oxidase Inhibitor Start: 05-10-2019 take 1 tablet by mouth once daily atenolol 25 mg oral tablet (3 sources) beta-Adrenergic Dion Start: 12-23-2017 Start: 12-23-2017 take 12.5 mg by mouth once lolis ly Atenolol Active 12.5 MG PO Daily December 23, 2017 1:00am 168 hr buprenorphine 0.02 mg/hr transdermal system (3 sources) Partial Opioid Agonist Start: 12-23-2017 apply 1 ug topically every hour calcium carbonate 1500 mg / cholecalciferol 800 unt chewable tablet (3 sources) Vitamin D Start: 12-23-2017 chlorpheniramine maleate 4 mg oral tablet (3 sources) Histamine-1 Receptor Antagonist Start: 12-23-2017 cyclobenzaprine hydrochloride 10 mg oral tablet (9 sources) Muscle Relaxant Start: 12-23-2017 End: 05-10-2019 take 1 tablet by mouth twice daily as needed for muscle spasms Start: 12-23-2017 End: 05-10-2019 Cyclobenzaprine 5 mg tablet Discontinued December 23, 2017 1:00am May 10, 2019 11:25am Start: 12-23-2017 End: 05-10-2019 Cyclobenzaprine 10 mg tablet Discontinued December 23, 2017 1:00am May 10, 2019 11:25am Start: 12-23-2017 End: 05-10-2019 Cyclobenzaprine 5 mg tablet Discontinued TABLET December 23, 2017 1:00am May 10, 2019 11:25am Start: 12-23-2017 End: 05-10-2019 Cyclobenzaprine Discontinued TABLET December 23, 2017 1:00am May 10, 2019 11:25am donepezil hydrochloride 5 mg oral tablet (3 sources) Start: 12-23-2017 take 1 tablet by mouth once daily escitalopram 20 mg oral tablet (3 sources) Serotonin Reuptake Inhibitor Start: 12-23-2017 take 1 tablet by mouth twice daily gabapentin 600 mg oral tablet (3 sources) Anti-epileptic Agent Start: 12-23-2017 Start: 12-23-2017 take 800 mg by mouth once otoniel y Gabapentin Active 800 MG PO Daily December 23, 2017 1:00am Lactobacillus Combination No .4 (Probiotic) 3 billion cell Capsule (3 sources) Start: 05-10-2019 take 3 capsules by m outh once daily Start: 05-10-2019 take 3 capsules by m outh once daily Lactobacillus Combination No.4 (Probiotic) 3 billion cell Capsule Active 3000 MMU CELLS PO Daily May 10, 2019 12:00am meclizine hydrochloride 12.5 mg oral tablet (3 sources) Antiemetic Start: 05-10-2019 take 1 tablet by konstantin th once daily as needed for dizziness metFORMIN hydrochloride 500 mg oral tablet (3 sources) Biguanide Start: 05-10-2019 take 1 tablet by konstantin th once daily Multivitamin (Daily-Justo) Tablet (3 sources) Start: 12-23-2017 take 1 tablet by konstantin th once daily Start: 12-23-2017 take 1 tablet by konstantin th once daily Multivitamin (Daily-Justo) Tablet Active 1 TAB PO Daily December 23, 2017 1:00am ondansetron 4 mg disintegrating oral tablet (3 sources) Serotonin-3 Receptor Antagonist Start: 05-10-2019 take 1 tablet by mouth every four hours as needed for nausea pantoprazole 40 mg delayed release oral tablet (6 sources) Proton Pump Inhibitor Start: 12-23-2017 End: 05-10-2019 take 1 tablet by mouth once daily Start: 12-23-2017 End: 05-10-2019 Pantoprazole 40 mg tablet,de layed release (DR/EC) Discontinued December 23, 2017 1:00am May 10, 2019 11:35am polyethylene glycol 3350 21901 mg powder for oral solution (3 sources) Osmotic Laxative Start: 05-10-2019 pravastatin sodium 10 mg oral tablet (3 sources) HMG-CoA Reductase Inhibitor Start: 05-10-2019 take 1 tablet by mouth once daily risperiDONE 0.25 mg oral tablet (3 sources) Atypical Antipsychotic Start: 05-10-2019 take 1 tablet by mouth twice daily spironolactone 25 mg oral tablet (3 sources) Aldosterone Antagonist Start: 05-10-2019 take 1 tablet by mouth once daily triamcinolone acetonide 0.001 mg/mg topical ointment (3 sources) Corticosteroid Start: 12-23-2017 valACYclovir 1000 mg oral tablet (3 sources) Herpesvirus Nucleoside Analog DNA Polymerase Inhibitor, Herpes Simplex Virus Nucleoside Analog DNA Polymerase Inhibitor, Herpes Zoster Virus Nucleoside Analog DNA Polymerase Inhibitor Start: 02-11-2022 Start: 02-11-2022 take 1000 mg by mout h three times daily Valacyclovir Active 1000 MG PO Three times daily February 11, 2022 12:00am vitamin b12 2.5 mg sublingua l tablet (3 sources) Vitamin B12 Start: 05-10-2019 take 1 tablet under the tongue once daily Completed/Discontinued Medications Medication Drug Class(es) Dates Sig (Normalized) Sig (Original) acetaminophen 325 mg / oxyCODONE hydrochloride 5 mg oral tablet (3 sources) Opioid Agonist Start: 05-10-2019 End: 07-12-2020 take 2 tablets by mouth every four to six hours as needed for pain Oxycodone-Acetamin ophen 5-325 mg Tablet Discontinued 2 TAB PO EVERY 4-6 HOURS as needed for Pain May 10, 2019 12:00am July 12, 2020 2:05pm cefdinir 300 mg oral capsule (3 sources) Cephalosporin Antibacterial Start: 02-11-2022 End: 04-08-2022 take 2 capsules by mouth once daily Cefdinir 300 mg Capsule Discontinued 600 MG PO Daily February 11, 2022 12:00am April 08, 2022 1:02pm Start: 02-11-2022 End: 04-08-2022 take 600 mg by mouth once daily Cefdinir Discontinued 600 MG PO Daily February 11, 2022 12:00am April 08, 2022 1:02pm ciprofloxacin 500 mg oral tablet (3 sources) Quinolone Antimicrobial Start: 03-17-2021 End: 06-23-2021 take 1 tablet by mouth twice daily Ciprofloxacin Hcl (Cipro) 500 mg Tablet Discontinued 500 MG PO Twice daily March 17, 2021 12:00am June 23, 2021 11:25am docusate sodium 50 mg / sennosides, skilled nursing 8.6 mg oral tablet (3 sources) Start: 05-10-2019 End: 07-12-2020 take 2 tablets by mouth once daily at bedtime Sennosides-Docusate Sodium (Senna-S) 8.6-50 mg Tablet Discontinued 2 TAB PO Daily at bedtime May 10, 2019 12:00am July 12, 2020 2:05pm doxycycline hyclate 100 mg oral capsule (3 sources) Tetracycline-clas s Drug Start: 09-07-2019 End: 11-16-2019 take 1 capsule by mouth twice daily Doxycycline Hyclate 100 mg capsule Discontinued 100 MG PO Twice daily September 07, 2019 12:00am November 16, 2019 9:03am avoid taking Calcium/Iron at the same time as the Doxy ferrous sulfate 324 mg delayed release oral tablet (3 sources) Start: 12-23-2017 End: 07-12-2020 take 1 tablet by mouth twice daily Ferrous Sulfate 324 mg (65 mg iron) tablet,delayed release (DR/EC) Discontinued 325 MG PO Twice daily December 23, 2017 1:00am July 12, 2020 2:03pm hydroCHLOROthiazide 50 mg oral tablet (3 sources) Thiazide Diuretic Start: 12-23-2017 End: 05-10-2019 Hydrochlorothiazide 50 mg Tablet Discontinued December 23, 2017 1:00am May 10, 2019 11:35am Start: 12-23-2017 End: 05-10-2019 Hydrochlorothiazide 50 mg Ta blet Discontinued TABLET December 23, 2017 1:00am May 10, 2019 11:35am Start: 12-23-2017 End: 05-10-2019 Hydrochlorothiazide Disconti nued TABLET December 23, 2017 1:00am May 10, 2019 11:35am L.Acidoph-L.Bulg-B.Bif-S.The rm (Bacid (L. Acidophilus)) 1 billion cell- 250 mg Tablet (3 sources) Start: 05-10-2019 End: 07-12-2020 take 1 tablet by mouth twice daily L.Acidoph-L.Bulg-B.Bif-S.Therm (Bacid (L. Acidophilus)) 1 billion cell- 250 mg Tablet Discontinued 1 TAB PO Twice daily May 10, 2019 12:00am July 12, 2020 2:05pm traZODone hydrochloride 50 m g oral tablet (3 sources) Cody Chang anthony Inhib itor Start: [...] Classification Problem Date Documented Da te Episodic/Chronic Acute cerebrovascular disease (1 source) Acute cerebrovascular disease Onset: 5 Administrative/social admission (8 sources) Reduced mobility; Translations: [Other reduced mobility] 07-12-2020 Episodic Allergic reactions (7 sources) Latex allergy status; Translations: [Allergy status to other antibiotic agents status] Onset: 8 12-23-2017 Episodic Complications of surgical procedures or medical care (4 sources) Non-healing surgical wound; Translations: [Other complications of procedures, not elsewhere classified, initial encounter] 06-03-2022 Episodic Complications of surgical procedures or medical care (1 source) Other postprocedural complications and disorders of digestive system; Translations: [OTH POSTPROCEDURAL COMPLICATIONS AND DISORDERS OF DGSTV SYS] Onset: 8 Coronary atherosclerosis and other heart disease (1 source) Atherosclerotic heart disease of [place] coronary artery without angina pectoris; Translations: [ATHSCL HEART DISEASE OF H[place] CORONARY ARTERY W/O ANG PCTRS] Onset: 8 Chronic Delirium, dementia, and amnestic and other cognitive disorders (4 sources) Dementia; Translations: [Unspecified dementia without behavioral [...] DISORDER, SINGLE EPISODE, UNSPECIFIED] Onset: 8 Mycoses (4 sources) Candidiasis; Translations: [Candidiasis, unspecified] 01-02-2021 Episodic [...] Onset: 8 05-03-2024 Episodic Other gastrointestinal disorders (3 sources) Gastrointestinal fistula; 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] 01-13-2018 Episodic Other nervous system disorders (1 source) Complex regional pain syndrome I of right upper limb; Translations: [COMPLEX RGN PAIN SYND I RT UP LIMB] Onset: 3 Chronic Other nutritional; endocrine; and metabolic disorders (3 sources) Obesity; Translations: [Obesity, unspecified] 12-23-2017 Chronic Other nutritional; endocrine; and metabolic disorders (1 source) Obesity, unspecified; Translations: [Obesity, unspecified] 05-03-2024 Chronic Residual codes; unclassified (2 sources) Inflammatory disorder 07-14-2023 Episodic Residual codes; unclassified (1 source) Pain, unspecified; Translations: [Pain, unspecified] Onset: 5 Episodic Unclassified (2 sources) Inflammatory disorder; Translations: [Inflammation] 07-14-2023 Urinary tract infections (4 sources) Urinary tract infection, site not specified; Translations: [UTI SITE NOT SPECIFIED] Onset: 3 Episodic Past or Other Problems Problem Classification Problem Date Documented Date Episodic/Chronic Genitourinary symptoms and ill-defined conditions (4 sources) Unspecified symptoms and signs involving the genitourinary system; Translations: [UNS SYMPTOMS SIGNS INVLV SYSTEM] Onset: 02-08-2022 Episodic Other aftercare (4 sources) Encounter for therapeutic drug level monitoring; Translations: [ENCOUNTER FOR THERAPEUTIC DRUG LEVEL MONITORING] Onset: 05-24-2018 Episodic Other aftercare (1 source) Other computer terminal operator (current) drug therapy; Translations: [OTHER TRANSPORTATION SPECIALIST (CURRENT) DRUG THERAPY] Onset: 05-24-2018 Episodic Screening or history of mental health and substance abuse (1 source) Personal history of nicotine dependence; Translations: [PERSONAL HISTORY OF NICOTINE DEPENDENCE] Onset: 06-27-2018 Episodic Unclassified (2 sources) Unknown / UNK(Unknown) Onset: 05-24-2018 Results Test Name Value Interpretation Reference Range Facility Blood Cultureon 07-08-2025 Bacteria identified Cx Nom (Bld) Gram Stain Gram Positive Cocci in Clusters ORGANISM: Staphylococcus epidermidis (O:STAEPI) ORGANISM: Staphylococcus sp coag neg (O:STACN) PERFORMED BY: [place] [address] PATHOLOGIST DECKHAND TUNA BOAT RAFAEL GARCIA M.D. Normal [facility] Comment on above: Performed By: #### C UBLD #### [address] URINALYSISon 06-14-2025 Bilirubin Ql (U) Negative Normal Negative [facility] Comment on above: Order Comment: Urine received without preservative. Delays in transport may affect results. Interpret with caution. A clinical correlation is recommended. Performed By: #### T HYR #### [facility] [address] [place] [address] VIR BLOOD/HGB Trace Abnormal Negative [facility] Comment on above: Order Comment: Urine received without preservative. Delays in transport may affect results. Interpret with caution. A clinical correlation is recommended. Performed By: #### T HYR #### [facility] ([address] [address] VIR Color (U) Yellow Normal Yellow [facility] Comment on above: Order Comment: Urine received without preservative. Delays in transport may affect results. Interpret with caution. A clinical correlation is recommended. Performed By: #### T HYR #### [facility] ([address] [address] VIR Glucose Ql (U) Negative Normal Negative, 250 mg/dL [facility] Comment on above: Order Comment: Urine received without preservative. Delays in transport may affect results. Interpret with caution. A clinical correlation is recommended. Performed By: #### T HYR #### [facility] ([address] [address] VIR Ketones Ql (U) Negative Normal Negative [facility] Comment on above: Order Comment: Urine received without preservative. Delays in transport may affect results. Interpret with caution. A clinical correlation is recommended. Performed By: #### T HYR #### [facility] ([address] [place] [address] VIR Leukocyte esterase Test strip Ql (U) Moderate Abnormal Negative [facility] Comment on above: Order Comment: Urine received without preservative. Delays in transport may affect results. Interpret with caution. A clinical correlation is recommended. Performed By: #### T HYR #### [facility] ([address] [address] VIR Nitrite Ql (U) Positive Abnormal Negative [facility] Comment on above: Order Comment: Urine received without preservative. Delays in transport may affect results. Interpret with caution. A clinical correlation is recommended. Performed By: #### T HYR #### [facility] ([address] [address] VIR PH,URINE 6.0 Normal 5.0-8.5 [facility] Comment on above: Order Comment: Urine received without preservative. Delays in transport may affect results. Interpret with caution. A clinical correlation is recommended. Performed By: #### T HYR #### [facility] ([address] [address] VIR Protein Ql (U) Trace Abnormal Negative [facility] Comment on above: Order Comment: Urine received without preservative. Delays in transport may affect results. Interpret with caution. A clinical correlation is recommended. Performed By: #### T HYR #### [facility] ([address] [address] VIR R.B.CELLS 3 Normal 0-5 [facility] Comment on above: Order Comment: Urine received without preservative. Delays in transport may affect results. Interpret with caution. A clinical correlation is recommended. Performed By: #### T HYR #### [facility] ([address] [address] VIR Specific gravity (U) [Rel density] 1.025 Normal 1.003-1.035 [facility] Comment on above: Order Comment: Urine received without preservative. Delays in transport may affect results. Interpret with caution. A clinical correlation is recommended. Performed By: #### T HYR #### [facility] ([address] [address] VIR SQUAMOUS EPITHELIUM 2 Normal 0-5 [facility] Comment on above: Order Comment: Urine received without preservative. Delays in transport may affect results. Interpret with caution. A clinical correlation is recommended. Performed By: #### T HYR #### [facility] ([address] [address] VIR TURBIDITY Cloudy Abnormal Clear [facility] Comment on above: Order Comment: Urine received without preservative. Delays in transport may affect results. Interpret with caution. A clinical correlation is recommended. Performed By: #### T HYR #### [facility] ([address] [place] [address] VIR UROBILINOGEN 0.2 eu/dL Normal 0.2 eu/dL, 1.0 eu/dL [facility] Comment on above: Order Comment: Urine received without preservative. Delays in transport may affect results. Interpret with caution. A clinical correlation is recommended. Performed By: #### T HYR #### [facility]) [address] [place] [address] VIR W.B.CELLS >^100 High 0-5 [facility] Comment on above: Order Comment: Urine received without preservative. Delays in transport may affect results. Interpret with caution. A clinical correlation is recommended. Performed By: #### T HYR #### [facility] ([address] [address] VIR URINE CULTUREon 06-14-2025 Bacteria identified Cx [...] + Sulfamethoxazole S <=^1.0 F Susceptible [facility] Comment on above: Order Comment: Along with 10,000 to 50,000 CFU/mL Normal Urogenital Dania.Urine received without preservative - delays in transport may affect results. Interpret with caution and clinical correlation is recommended. Performed By: #### T HYR #### [facility]) [address] [place] [address] [place] [address] VIR URINALYSISon 05-23-2025 Bilirubin Ql (U) Negative Normal Negative [facility] Comment on above: Performed By: #### T HYR #### [facility]) [address] [place] [address] [place] [address] VIR BLOOD/HGB Negative Normal Negative [facility] Comment on above: Performed By: #### T HYR #### [facility] ([address] [place] [address] VIR Color (U) Yellow Normal Yellow, Colorless [facility] Comment on above: Performed By: #### T HYR #### [facility] ([address] [place] [address] VIR Glucose Ql (U) Negative Normal Negative, 250 mg/dL [facility] Comment on above: Performed By: #### T HYR #### [facility] ([address] [place] [address] VIR Ketones Ql (U) Negative Normal Negative [facility] Comment on above: Performed By: #### T HYR #### [facility] ([address] [place] [address] VIR Leukocyte esterase Test strip Ql (U) Moderate Abnormal Negative [facility] Comment on above: Performed By: #### T HYR #### [facility] ([address] [place] [address] VIR Nitrite Ql (U) Positive Abnormal Negative [facility] Comment on above: Performed By: #### T HYR #### [facility] ([address] [place] [address] VIR PH,URINE 6.0 Normal 5.0-8.5 [facility] Comment on above: Performed By: #### T HYR #### [facility] [address] [facility] [place] [address] VIR Protein Ql (U) Trace Abnormal Negative [facility] Comment on above: Performed By: #### T HYR #### [facility] [address] [facility] [place] [address] VIR R.B.CELLS 3 Normal 0-5 [facility] Comment on above: Performed By: #### T HYR #### [facility]) [address] [place] [address]. [place] [address] VIR Specific gravity (U) [Rel density] 1.020 Normal 1.003-1.035 [facility] Comment on above: Performed By: #### T HYR #### [facility] ([address] [place] [address] VIR SQUAMOUS EPITHELIUM 1 Normal 0-5 [facility] Comment on above: Performed By: #### T HYR #### [facility] ([address] [place] [address] VIR TURBIDITY Hazy Abnormal Clear [facility] Comment on above: Performed By: #### T HYR #### [facility] ([address] [place] [address] VIR UROBILINOGEN 0.2 eu/dL Normal 0.2 eu/dL, 1.0 eu/dL [facility] Comment on above: Performed By: #### T HYR #### [facility] ([address] [place] [address] VIR W.B.CELLS 90 High 0-5 [facility] Comment on above: Performed By: #### T HYR #### [facility] ([address] [place] [address] VIR URINE CULTUREon 05-23-2025 Bacteria identified Cx [...] + Sulfamethoxazole S <=^1.0 F Susceptible [facility] Comment on above: Performed By: #### T HYR #### [address] [address] VIR URINALYSISon 05-01-2025 Bilirubin Ql (U) Negative Normal Negative [facility] Comment on above: Order Comment: Urine received without preservative. Delays in transport may affect results. Interpret with caution. A clinical correlation is recommended. Performed By: #### U A #### [address] [address] VIR BLOOD/HGB Negative Normal Negative [facility] Comment on above: Order Comment: Urine received without preservative. Delays in transport may affect results. Interpret with caution. A clinical correlation is recommended. Performed By: #### U A #### [address] [address] VIR Color (U) Yellow Normal Yellow, Colorless [facility] Comment on above: Order Comment: Urine received without preservative. Delays in transport may affect results. Interpret with caution. A clinical correlation is recommended. Performed By: #### U A #### [address] [address] VIR Glucose Ql (U) Negative Normal Negative, 250 mg/dL [facility] Comment on above: Order Comment: Urine received without preservative. Delays in transport may affect results. Interpret with caution. A clinical correlation is recommended. Performed By: #### U A #### [facility] ([address] [address] VIR Ketones Ql (U) Negative Normal Negative [facility] Comment on above: Order Comment: Urine received without preservative. Delays in transport may affect results. Interpret with caution. A clinical correlation is recommended. Performed By: #### U A #### [facility] ([address] [address] VIR Leukocyte esterase Test strip Ql (U) Trace Abnormal Negative [facility] Comment on above: Order Comment: Urine received without preservative. Delays in transport may affect results. Interpret with caution. A clinical correlation is recommended. Performed By: #### U A #### [facility] ([address] [address] VIR Nitrite Ql (U) Negative Normal Negative [facility] Comment on above: Order Comment: Urine received without preservative. Delays in transport may affect results. Interpret with caution. A clinical correlation is recommended. Performed By: #### U A #### [facility] ([address] [address] VIR PH,URINE 6.0 Normal 5.0-8.5 [facility] Comment on above: Order Comment: Urine received without preservative. Delays in transport may affect results. Interpret with caution. A clinical correlation is recommended. Performed By: #### U A #### [facility] ([address] [address] VIR Protein Ql (U) Negative Normal Negative [facility] Comment on above: Order Comment: Urine received without preservative. Delays in transport may affect results. Interpret with caution. A clinical correlation is recommended. Performed By: #### U A #### [facility] ([address] [address] VIR Specific gravity (U) [Rel density] <=^1.005 Normal 1.003-1.035 [facility] Comment on above: Order Comment: Urine received without preservative. Delays in transport may affect results. Interpret with caution. A clinical correlation is recommended. Performed By: #### U A #### [facility] ([address] [address] VIR SQUAMOUS EPITHELIUM 1 Normal 0-5 [facility] Comment on above: Order Comment: Urine received without preservative. Delays in transport may affect results. Interpret with caution. A clinical correlation is recommended. Performed By: #### U A #### [address] [address] VIR TURBIDITY Clear Normal Clear [facility] Comment on above: Order Comment: Urine received without preservative. Delays in transport may affect results. Interpret with caution. A clinical correlation is recommended. Performed By: #### U A #### [address] [address] VIR UROBILINOGEN 0.2 eu/dL Normal 0.2 eu/dL, 1.0 eu/dL [facility] Comment on above: Order Comment: Urine received without preservative. Delays in transport may affect results. Interpret with caution. A clinical correlation is recommended. Performed By: #### U A #### [facility] ([address] [address] VIR W.B.CELLS 20 High 0-5 [facility] Comment on above: Order Comment: Urine received without preservative. Delays in transport may affect results. Interpret with caution. A clinical correlation is recommended. Performed By: #### U A #### [facility] ([address] [address] VIR URINE CULTUREon 05-01-2025 Bacteria identified Cx [...] + Sulfamethoxazole S <=^1.0 F Susceptible [facility] Comment on above: Order Comment: Urine received without preservative - delays in transport may affect results. Interpret with caution and clinical correlation is recommended. Performed By: #### T HYR #### [facility] ([address] [place] [address] VIR BASIC METABOLIC PANELon Anion gap [Moles/Vol] 12 mmol/L Normal 5-15 [facility] Comment on above: Performed By: #### B MP #### [address] [place] [place] [address] VIR Calcium [Mass/Vol] 9.4 mg/dL Normal 8.5-10.5 [facility] Comment on above: Performed By: #### B MP #### [address] [address] VIR Chloride [Moles/Vol] 102 mmol/L Normal 98-109 [facility] Comment on above: Performed By: #### B MP #### [facility] ([address] [place] [address] VIR CO2 [Moles/Vol] 21 mmol/L Low 22-32 [facility] Comment on above: Performed By: #### B MP #### [facility] ([address] [place] [address] VIR Creatinine [Mass/Vol] 2.29 mg/dL High 0.40-1.00 [facility] Comment on above: Result Comment: METH OD TRACEABLE TO IDMS STANDARD Performed By: #### B MP #### [facility] ([address] [place] [address] VIR GFR/1.73 sq M.predicted among non-blacks MDRD (S/P/Bld) [Vol rate/Area] 20 mL/min/{1.73_m2} Low >=60 [facility] Comment on above: Result Comment: eGFR not reported due to non-numeric value for Creatinine. Reported eGFR is based on the CKD-EPI 2020 equation that does not use a race coefficient. Performed By: #### B MP #### [facility] ([address] [place] [address] VIR Glucose [Mass/Vol] 188 mg/dL High 65-99 [facility] Comment on above: Performed By: #### B MP #### [facility] ([address] [place] [address] VIR Potassium [Moles/Vol] 4.9 mmol/L Normal 3.5-5.0 [facility] Comment on above: Performed By: #### B MP #### [facility] ([address] [place] [address] VIR Sodium [Moles/Vol] 135 mmol/L Normal 134-146 [facility] Comment on above: Performed By: #### B MP #### [facility] ([address] [place] [address] VIR Urea nitrogen [Mass/Vol] 29 mg/dL High 5-27 [facility] Comment on above: Performed By: #### B MP #### [facility] [address] [place] [address] VIR Urine Cultureon 03-07-2025 Bacteria identified Cx Nom (U) 25,000 colonies/ml mixed bacterial skin contaminants 2 Days PERFORMED BY: [facility] [address] [place] [address] PATHOLOGIST DECKHAND TUNA [employer]AT DEBORAH VIZCAINO M.D. Normal [facility] Comment on above: Performed By: #### C UU #### [facility] [address] CBC WITH AUTO DIFFERENTIALon 03-05-2025 BASOPHILS ABSOLUTE COUNT (10*3/UL) BY AUTOMATED COUNT 0.0 10*3/uL Normal [facility] Comment on above: Performed By: #### C BCA #### [facility] [address] [place] [address] VIR BASOPHILS RELATIVE PERCENT BY AUTOMATED COUNT 0.7 % Normal [facility] Comment on above: Performed By: #### C BCA #### [facility] [address] [place] [address] VIR CELLAVISION DIFFERENTIAL TYPE AUTOMATED DIFFERENTIAL Normal [facility] Comment on above: Performed By: #### C BCA #### [facility] [address] [place] [address] VIR Eosinophils (Bld) [#/Vol] 0.2 10*3/uL Normal [facility] Comment on above: Performed By: #### C BCA #### [facility] [address] [place] [address] VIR EOSINOPHILS RELATIVE PERCENT BY AUTOMATED COUNT 2.5 % Normal [facility] Comment on above: Performed By: #### C BCA #### [facility] [address] [place] [address]. [place] [address] VIR Erythrocyte distribution width (RBC) [Ratio] 15.8 % High 11.5-15 [facility] Comment on above: Performed By: #### C BCA #### [facility] ([address] [address] VIR Hematocrit (Bld) [Volume fraction] 34.8 % Low 35-47 [facility] Comment on above: Performed By: #### C BCA #### [facility] ([address] [address] VIR Hemoglobin (Bld) [Mass/Vol] 11.4 g/dL Low 11.7-15.5 [facility] Comment on above: Performed By: #### C BCA #### [facility] ([address] [address] VIR LYMPHOCYTES ABSOLUTE COUNT (10*3/UL) BY AUTOMATED COUNT 2.0 10*3/uL Normal [facility] Comment on above: Performed By: #### C BCA #### [facility] ([address] [address] VIR LYMPHOCYTES RELATIVE PERCENT BY AUTOMATED COUNT 30.3 % Normal [facility] Comment on above: Performed By: #### C BCA #### [facility] ([address] [address] VIR MCH (RBC) [Entitic mass] 28.6 pg Normal 27-34 [facility] Comment on above: Performed By: #### C BCA #### [facility] ([address] [address] VIR MCHC (RBC) [Mass/Vol] 32.7 g/dL Normal 32-36 [facility] Comment on above: Performed By: #### C BCA #### [facility] ([address] [address] VIR MCV (RBC) [Entitic vol] 88 fL Normal 80-100 [facility] Comment on above: Performed By: #### C BCA #### [facility] ([place] [id number] [facility] [place] [address] VIR MONOCYTES ABSOLUTE COUNT (10*3/UL) BY AUTOMATED COUNT 0.6 10*3/uL Normal [facility] Comment on above: Performed By: #### C BCA #### [facility] ([place] [id number] [facility] [place] [address] VIR MONOCYTES RELATIVE PERCENT BY AUTOMATED COUNT 8.9 % Normal [facility] Comment on above: Performed By: #### C BCA #### [facility] ([address] [place] [address] VIR NEUTROPHILS ABSOLUTE COUNT BY AUTOMATED COUNT 3.8 10*3/uL Normal [facility] Comment on above: Performed By: #### C BCA #### [facility] ([address] [place] [address] VIR NEUTROPHILS RELATIVE PERCENT BY AUTOMATED COUNT 57.6 % Normal [facility] Comment on above: Performed By: #### C BCA #### [facility] ([address] [place] [address] VIR Platelet mean volume (Bld) [Entitic vol] 9.0 fL Normal 7-12 [facility] Comment on above: Performed By: #### C BCA #### [facility] ([address] [place] [address] VIR Platelets (Bld) [#/Vol] 236 10*3/uL Normal 150-450 [facility] Comment on above: Performed By: #### C BCA #### [facility] ([address] [place] [address] VIR RBC COUNT 3.98 X10E12/L Normal 3.8-5.2 [facility] Comment on above: Performed By: #### C BCA #### [facility] ([address] [place] [address] VIR WBC (Bld) [#/Vol] 6.6 10*3/uL Normal 4-11 [facility] Comment on above: Performed By: #### C BCA #### [facility] ([place] [address] [place] [address] VIR COMPREHENSIVE METABOLIC PANE [place] 03-05-2025 Albumin [Mass/Vol] 4.1 g/dL Normal 3.2-5.3 [facility] Comment on above: Performed By: #### C MP #### [facility] ([place] [address] [place] [address] VIR ALP [Catalytic activity/Vol] 76 U/L Normal 39-130 [facility] Comment on above: Performed By: #### C MP #### [facility] ([address] [place] [address] VIR ALT [Catalytic activity/Vol] 18 U/L Normal <=31 [facility] Comment on above: Performed By: #### C MP #### [facility] ([place] [address] [place] [address] VIR Anion gap [Moles/Vol] 8 mmol/L Normal 5-15 [facility] Comment on above: Performed By: #### C MP #### [facility] ([place] [address] [place] [address] VIR AST [Catalytic activity/Vol] 21 U/L Normal <=41 [facility] Comment on above: Performed By: #### C MP #### [facility] ([place] [address] [place] [address] VIR Bilirubin [Mass/Vol] 0.6 mg/dL Normal 0.3-1.2 [facility] Comment on above: Performed By: #### C MP #### [facility] ([place] [address] [place] [address] VIR Calcium [Mass/Vol] 9.4 mg/dL Normal 8.5-10.5 [facility] Comment on above: Performed By: #### C MP #### [facility] ([address] [place] [address] VIR Chloride [Moles/Vol] 103 mmol/L Normal 98-109 [facility] Comment on above: Performed By: #### C MP #### [facility] ([address] [place] [address] VIR CO2 [Moles/Vol] 24 mmol/L Normal 22-32 [facility] Comment on above: Performed By: #### C MP #### [facility] ([address] [address] VIR Creatinine [Mass/Vol] 2.14 mg/dL High 0.40-1.00 [facility] Comment on above: Result Comment: METH OD TRACEABLE TO IDMS STANDARD Performed By: #### C MP #### [facility] ([address] [address] VIR GFR/1.73 sq M.predicted among non-blacks MDRD (S/P/Bld) [Vol rate/Area] 22 mL/min/{1.73_m2} Low >=60 [facility] Comment on above: Result Comment: Repo rted eGFR is based on the CKD-EPI 2020 equation that does not use a race coefficient. Performed By: #### C MP #### [facility] ([address] [place] [address] VIR Glucose [Mass/Vol] 102 mg/dL High 65-99 [facility] Comment on above: Performed By: #### C MP #### [facility] ([address] [place] [address] VIR Potassium [Moles/Vol] 6.3 mmol/L Critically high 3.5-5.0 [facility] Comment on above: Performed By: #### C MP #### [facility] [address] [place] [address] VIR Protein [Mass/Vol] 7.0 g/dL Normal 6.0-8.0 [facility] Comment on above: Performed By: #### C MP #### [facility] ([address] [place] [address] VIR Sodium [Moles/Vol] 135 mmol/L Normal 134-146 [facility] Comment on above: Performed By: #### C MP #### [facility] ([address] [place] [address] VIR Urea nitrogen [Mass/Vol] 30 mg/dL High 5-27 [facility] Comment on above: Performed By: #### C MP #### [facility] ([address] [place] [address] VIR HEMOGLOBIN A1Con 03-05-2025 Glucose [Mass/Vol] 123 mg/dL Normal [facility] Comment on above: Performed By: #### H A1C #### [facility] ([facility]) [address] [place] [address] VIR HbA1c (Bld) [Mass fraction] 5.9 % High 4.4-5.6 [facility] Comment on above: Result Comment: ADA Guidelines Result HgbA1c Normal : less than 5.7 % Prediabetes : 5.7 % to 6.4 % Diabetes : > 6.4 % Use with caution in patients with abnormal hemoglobin variants as the half-life of red blood cells and in vivo glycation rates are affected. Performed By: #### H A1C #### [facility] ([facility]) [address] [place] [address] VIR INSULINon 03-05-2025 INSULIN 19.48 uIU/mL Normal 1.00-23.00 [facility] Comment on above: Order Comment: Ref. range is for FASTING NON-DIABETIC POPULATION. Performed By: #### I NSL #### [facility] ([facility]) [address] [place] [address] VIR IRON AND TIBCon 03-05-2025 Iron [Mass/Vol] 48 ug/dL Low 50-170 [facility] Comment on above: Performed By: #### F EPR #### [facility] ([facility]) [address] [place] [address] VIR IRON BINDING 515 ug/dL High 250-425 [facility] Comment on above: Performed By: #### F EPR #### [facility] ([facility]) [address] [place] [address] VIR IRON SATURATION 9 % SATURATION Low 15-50 [facility] Comment on above: Performed By: #### F EPR #### [facility] ([facility]) [address] [place] [address] VIR Transferrin [Mass/Vol] 368 mg/dL High 168-336 [facility] Comment on above: Performed By: #### F EPR #### [facility] ([facility]) [address] [place] [address] VIR LIPID PROFILEon 03-05-2025 Cholesterol [Mass/Vol] 186 mg/dL Normal 150-200 [facility] Comment on above: Performed By: #### L IPR #### [facility] ([facility]) [address] [place] [address] VIR Cholesterol in HDL [Mass/Vol] 43 mg/dL Normal >39 [facility] Comment on above: Result Comment: HDL <40 mg/dL - High Risk HDL > or = 40mg/dL- Desirable HDL >60 mg/dL - Negative Risk Performed By: #### L IPR #### [facility] ([facility]) [address] [place] [address] VIR Cholesterol in LDL [Mass/Vol] 100 mg/dL Normal <130 [facility] Comment on above: Result Comment: LDL <100 mg/dL - Desirable LDL >160 mg/dL - High Risk Performed By: #### L IPR #### [facility] ([facility]) [address] [place] [address] VIR CHOLESTEROL:HDL 4.3 Normal 1.0-5.0 [facility] Comment on above: Performed By: #### L IPR #### [facility] ([facility]) [address] [place] [address] VIR Triglyceride [Mass/Vol] 217 mg/dL High 27-150 [facility] Comment on above: Performed By: #### L IPR #### [facility] ([facility]) [address] [place] [address] VIR VERY LOW LIPOPROTEIN 43 mg/dL High 0-30 [facility] Comment on above: Performed By: #### L IPR #### [facility] ([facility]) [address] [place] [address] VIR THYROID PROFILE INCLUDES TSH FT4on 03-05-2025 Free T4 [Mass/Vol] 0.93 ng/dL Normal 0.61-1.60 [facility] Comment on above: Performed By: #### T HYR #### [facility] [address] [place] [address] VIR TSH 2.21 uIU/mL Normal 0.49-4.67 [facility] Comment on above: Performed By: #### T HYR #### [facility] [address] [place] [address] VIR VITAMIN D 25 HYDROXYon 03-05 VITAMIN D 25 HYD TOT 35.4 ng/mL Normal 30.0-100.0 [facility] Comment on above: Order Comment: Vitam in D status 25 [place] Vitamin D Deficiency <20 ng/mL Insufficiency 20-29 ng/mL Sufficiency 30-100 ng/mL Toxicity >100 ng/mL NOTE: A pediatric reference range has not been established by the senior mobile developer of this kit. The [place] [employer] recommends a Vitamin D level of = or >20ng/mL in infants and children. Performed By: #### V ITD #### [facility] ([facility]) [address] [place] [address] VIR CULTURE URINEon 01-22-2023 CULTURE URINE Culture Observations : NO GROWTH. Normal [facility] Comment on above: Performed By: #### U A #### [facility] [address] [place] [address] Dr. Noreen Castro UA RANDOM W/MICROSCOPICon BACTERIA NONE SEEN Normal NONE SEEN [facility] Comment on above: Performed By: #### U AMIC #### [facility] [address] [place] [address] Dr. Noreen Castro Bilirubin Ql (U) Negative Normal NEGATIVE [facility] Comment on above: Performed By: #### U AMIC #### [facility] [address] [place] [address] Dr. Noreen Castro CAST NONE SEEN Normal NONE SEEN [facility] Comment on above: Performed By: #### U AMIC #### [facility] [address] [place] [address] Dr. Noreen Castro Clarity (U) SL CLOUDY Abnormal CLEAR [facility] Comment on above: Performed By: #### U AMIC #### [facility] [address] [place] [address] Dr. Noreen Castro Color (U) LT. YELLOW Normal YELLOW [facility] Comment on above: Performed By: #### U AMIC #### [facility] [address] [place] [address] Dr. Noreen Castro Crystals LM Nom (Urine sed) NONE SEEN Normal NONE SEEN [facility] Comment on above: Performed By: #### U AMIC #### [facility] [address] [place] [address] [address] Noreen Castro Epithelial cells LM Ql (Urine sed) FEW Abnormal NONE SEEN /RARE [facility] Comment on above: Performed By: #### U AMIC #### [facility] [address] [place] [address] Dr. Noreen Castro Glucose Ql (U) Negative Normal NEGATIVE [facility] Comment on above: Performed By: #### U AMIC #### [facility] [address] [place] [address] [address] Noreen Castro Hemoglobin Ql (U) Negative Normal NEGATIVE [facility] Comment on above: Performed By: #### U AMIC #### [facility] [address] [place] [address] Dr. Noreen Castro Ketones Ql (U) Negative Normal NEGATIVE [facility] Comment on above: Performed By: #### U AMIC #### [facility] [address] [place] [address] Dr. Noreen Castro LEUKOCYTES Negative Normal NEGATIVE [facility] Comment on above: Performed By: #### U AMIC #### [facility] [address] [place] [address] Dr. Noreen Castro MUCOUS NONE SEEN Normal NONE SEEN [facility] Comment on above: Performed By: #### U AMIC #### [facility] [address] [place] [address] Dr. Noreen Castro Nitrite Ql (U) Negative Normal NEGATIVE [facility] Comment on above: Performed By: #### U AMIC #### [facility] [address] [place] [address] Dr. Noreen Castro pH (U) 6.0 [pH] Normal 5-9 [facility] Comment on above: Performed By: #### U AMIC #### [facility] [address] [place] [address] Dr. Noreen Castro RBC NONE SEEN Abnormal 0-2 [facility] Comment on above: Performed By: #### U AMIC #### [facility] [address] [place] [address] Dr. Noreen Castro SPEC GRAVITY 1.015 Normal 1.005-<=1.02 5 [facility] Comment on above: Performed By: #### U AMIC #### [facility] [address] [place] [address] Dr. Noreen Castro UA PROTEIN TRACE Normal NEGATIVE/ TRACE [facility] Comment on above: Performed By: #### U AMIC #### [facility] [address] [place] [address] Dr. Noreen Castro Urobilinogen Qn (U) 0.2 {Scarlett'U}/dL Normal 0.2 - 1.0 [facility] Comment on above: Performed By: #### U AMIC #### [facility] [address] [place] [address] Dr. Noreen Castro WBC 0-2 Abnormal NONE SEEN [facility] Comment on above: Performed By: #### U AMIC #### [facility] [address] [place] [address] Dr. Noreen Castro BILIRUBIN CONJUGATED (DIRECT )on 11-16-2022 BILI, CONJUGATED 0.1 mg/dL Normal 0.0-0.2 [facility] Comment on above: Performed By: #### D NATASHA, CMP #### [facility] [address] [place] [address] Dr. Noreen Castro CBC AUTO DIFFon 11-16-2022 BASO # 0.1 103/ul Normal 0.0-0.1 [facility] Comment on above: Performed By: #### C BC #### [facility] [address] [place] [address] Dr. Noreen Castro Basophils/100 WBC (Bld) 0.6 % Normal 0.2-2.0 [facility] Comment on above: Performed By: #### C BC #### [facility] [address] [place] [address] Dr. Noreen Castro EO # 0.2 103/ul Normal 0.0-0.7 [facility] Comment on above: Performed By: #### C BC #### [facility] [address] [place] [address] Dr. Noreen Castro Eosinophils/100 WBC (Bld) 1.8 % Normal 0.9-7.0 [facility] Comment on above: Performed By: #### C BC #### [facility] [address] [place] [address] Dr. Noreen Castro Erythrocyte distribution width (RBC) [Ratio] 14.1 % Normal 11.0-15.0 [facility] Comment on above: Performed By: #### C BC #### [facility] [address] [place] [address] Dr. Noreen Castro Hematocrit (Bld) [Volume fraction] 35.0 % Critically low 36.0-48.0 [facility] Comment on above: Performed By: #### C BC #### [facility] [address] [place] [address] Dr. Noreen Castro Hemoglobin (Bld) [Mass/Vol] 12.0 g/dL Normal 12.0-16.0 [facility] Comment on above: Performed By: #### C BC #### [facility] [address] [place] [address] Dr. Noreen Castro IG # 0.07 10e3/ul Critically high 0.00-0.03 [facility] Comment on above: Performed By: #### C BC #### [facility] [address] [place] [address] Dr. Noreen Castro IG % 0.7 % Critically high 0.0-0.5 [facility] Comment on above: Performed By: #### C BC #### [facility] [address] [place] [address] Dr. Noreen Castro LYMPH # 2.8 103/ul Normal 1.2-3.8 [facility] Comment on above: Performed By: #### C BC #### [facility] [address] [place] [address] Dr. Noreen Castro Lymphocytes/100 WBC (Bld) 27.1 % Normal 20.5-60.0 [facility] Comment on above: Performed By: #### C BC #### [facility] [address] [place] [address] Dr. Noreen Castro MANUAL DIFF REQ NO Normal [facility] Comment on above: Performed By: #### C BC #### [facility] [address] [place] [address] Dr. Noreen Castro MCH (RBC) [Entitic mass] 31.1 pg Normal 26.7-34.0 [facility] Comment on above: Performed By: #### C BC #### [facility] [address] [place] [address] Dr. Noreen Castro MCHC (RBC) [Mass/Vol] 34.3 g/dL Normal 29.9-35.2 [facility] Comment on above: Performed By: #### C BC #### [facility] [address] [place] [address] Dr. Noreen Castro MCV (RBC) [Entitic vol] 90.7 fL Normal 81.0-99.0 [facility] Comment on above: Performed By: #### C BC #### [facility] [address] [place] [address] Dr. Noreen Castro MONO # 0.8 103/ul Normal 0.3-0.8 [facility] Comment on above: Performed By: #### C BC #### [facility] [address] [place] [address] Dr. Noreen Castro Monocytes/100 WBC (Bld) 8.0 % Normal 1.7-12.0 [facility] Comment on above: Performed By: #### C BC #### [facility] [address] [place] [address] Dr. Noreen Castro NEUT # 6.3 103/ul Normal 1.4-6.5 [facility] Comment on above: Performed By: #### C BC #### [facility] [address] [place] [address] Dr. Noreen Castro Neutrophils/100 WBC (Bld) 61.8 % Normal 43.0-75.0 [facility] Comment on above: Performed By: #### C BC #### [facility] [address] [place] [address] Dr. Noreen Castro Platelet mean volume (Bld) [Entitic vol] 9.6 fL Normal 9.5-13.5 [facility] Comment on above: Performed By: #### C BC #### [facility] [address] [place] [address] Dr. Noreen Castro PLT 210 103/ul Normal 150-450 [facility] Comment on above: Performed By: #### C BC #### [facility] [address] [address] [address] Noreen Castro RBC 3.86 106/ul Critically low 4.20-5.40 [facility] Comment on above: Performed By: #### C BC #### [facility] [address] [address] [address] Noreen Castro WBC 10.1 103/ul Normal 4.0-11.0 [facility] Comment on above: Performed By: #### C BC #### [facility] [address] [place] [address] Dr. Noreen Castro PROF 14(COMP METB)on 023 Albumin [Mass/Vol] 3.8 g/dL Normal 3.4-5.0 [facility] Comment on above: Performed By: #### D NATASHA, CMP #### [facility] [address] [place] [address] Dr. Noreen Castro Albumin/Globulin [Mass ratio] 1.1 {ratio} Normal [facility] Comment on above: Performed By: #### D NATASHA, CMP #### [facility] [address] [place] [address] Dr. Noreen Castro ALP [Catalytic activity/Vol] 76 U/L Normal 46-116 [facility] Comment on above: Performed By: #### D NATASHA, CMP #### [facility] [address] [address] [address] Noreen Castro ALT [Catalytic activity/Vol] 15 U/L Normal 14-59 [facility] Comment on above: Performed By: #### D NATASHA, CMP #### [facility] [address] [place] [address] Dr. Noreen Castro Anion gap [Moles/Vol] 12.7 mmol/L Normal [facility] Comment on above: Performed By: #### D NATASHA, CMP #### [facility] [address] [address] [address] Noreen Castro AST [Catalytic activity/Vol] 19 U/L Normal 15-37 [facility] Comment on above: Performed By: #### D NATASHA, CMP #### [facility] [address] [address] [address] Noreen Castro Bilirubin [Mass/Vol] 0.3 mg/dL Normal 0.2-1.0 [facility] Comment on above: Performed By: #### D NATASHA, CMP #### [facility] [address] [address] [address] Noreen Castro Calcium [Mass/Vol] 9.6 mg/dL Normal 8.5-10.1 [facility] Comment on above: Performed By: #### D NATASHA, CMP #### [facility] [address] [address] [address] Noreen Castro Chloride [Moles/Vol] 100 mmol/L Normal 98-107 [facility] Comment on above: Performed By: #### D NATASHA, CMP #### [facility] [address] [address] [address] Noreen Castro CO2 [Moles/Vol] 29.4 mmol/L Normal 21.0-32.0 [facility] Comment on above: Performed By: #### D NATASHA, CMP #### [facility] [address] [address] [address] Noreen Csatro Creatinine [Mass/Vol] 2.18 mg/dL Critically high 0.55-1.02 [facility] Comment on above: Performed By: #### D NATASHA, CMP #### [facility] [address] [address] [address] Noreen Castro EGFR-AF CONGOLESE 26 mL/min/1.73m2 Critically low >=60 [facility] Comment on above: Performed By: #### D NATASHA, CMP #### [facility] [address] [address] [address] Noreen Castro EGFR-NON AF CONGOLESE 22 mL/min/1.73m2 Critically low >=60 [facility] Comment on above: Performed By: #### D NATASHA, CMP #### [facility] [address] [place] [address] Dr. Noreen Castro Globulin (S) [Mass/Vol] 3.6 g/dL Normal [facility] Comment on above: Performed By: #### D NATASHA, CMP #### [facility] [address] [address] [address] Noreen Castro Glucose [Mass/Vol] 89 mg/dL Normal 74-106 [facility] Comment on above: Performed By: #### D NATASHA, CMP #### [facility] [address] [place] [address] Dr. Noreen Castro Potassium [Moles/Vol] 5.1 mmol/L Normal 3.5-5.1 [facility] Comment on above: Performed By: #### D NATASHA, CMP #### [facility] [address] [place] [address] Dr. Noreen Castro Protein [Mass/Vol] 7.4 g/dL Normal 6.4-8.2 [facility] Comment on above: Performed By: #### D NATASHA, CMP #### [facility] [address] [place] [address] Dr. Noreen Castro Sodium [Moles/Vol] 137 mmol/L Normal 136-145 [facility] Comment on above: Performed By: #### D NATASHA, CMP #### [facility] [address] [place] [address] Dr. Noreen Castro Urea nitrogen [Mass/Vol] 27.0 mg/dL Critically high 7.0-18.0 [facility] Comment on above: Performed By: #### D NATASHA, CMP #### [facility] [address] [place] [address] Dr. Noreen Castro Urea nitrogen/Creatinin e [Mass ratio] 12.4 mg/mg Normal [facility] Comment on above: Performed By: #### D NATASHA, CMP #### [facility] [address] [place] [address] Dr. Noreen Castro Provider Orderson 08-31-2022 Provider Orders [id number] [facility] C Urineon 08-30-2022 C Urine <10,000 cfu/ml [facility] Comment on above: Performed By: #### [id number] #### [facility] (DEFAULT) [address] [place] [address] 91646 UA Standardon 08-28-2022 Breakpoint UA [facility] Comment on above: Performed By: #### 1 [id number] #### [facility] (DEFAULT) [address] [place] [address] 27467 Color (U) Yellow [facility] Comment on above: Performed By: #### 1 [id number] #### [facility] (DEFAULT) [address] [place] [address] 51813 Glucose (U) [Mass/Vol] Negative [facility] Comment on above: Performed By: #### 1 [id number] #### [facility] (DEFAULT) [address] [place] [address] 74510 Ketones Ql (U) Negative [facility] Comment on above: Performed By: #### 1 [id number] #### [facility] (DEFAULT) [address] [place] [address] 55252 UA Bilirubin Negative Normal [facility] Comment on above: Performed By: #### 1 [id number] #### [facility] (DEFAULT) [address] [place] [address] 58811 UA Blood Negative Normal [facility] Comment on above: Performed By: #### 1 [id number] #### [facility] (DEFAULT) [address] [place] [address] 67614 UA Clarity CLEAR Normal CLEAR [facility] Comment on above: Performed By: #### 1 [id number] #### [facility] (DEFAULT) [address] [place] [address] 08287 UA Leuk Est TRACE Abnormal NEGATIVE [facility] Comment on above: Performed By: #### 1 [id number] #### [facility] (DEFAULT) [address] [place] [address] 94916 UA Nitrite Negative Normal NEGATIVE [facility] Comment on above: Performed By: #### 1 [id number] #### [facility] (DEFAULT) [address] [place] [address] 54070 UA pH 6.0 Normal 5-8 [facility] Comment on above: Performed By: #### 1 [id number] #### [facility] (DEFAULT) [address] [place] [address] 01633 UA Protein TRACE Abnormal NEGATIVE [facility] Comment on above: Performed By: #### 1 [id number] #### [facility] (DEFAULT) [address] [place] [address] 49216 UA Spec Grav 1.020 Normal 1.001-1.035 [facility] Comment on above: Performed By: #### 1 [id number] #### [facility] (DEFAULT) [address] [place] [address] 87432 UA Urobilinogen 0.2 mg/dL Normal 0.2-1.0 [facility] Comment on above: Performed By: #### 1 [id number] #### [facility] (DEFAULT) [address] [place] [address] 55301 Urine Source Clean Catch Normal [facility] Comment on above: Performed By: #### 1 [id number] #### [facility] (DEFAULT) [address] [place] [address] 75740 BILIRUBIN CONJUGATED (DIRECT )on 02-11-2022 BILI, CONJUGATED 0.1 mg/dL Normal 0.0-0.3 [facility] Comment on above: Performed By: #### C MP, DBIL #### [facility] [address] [place] [address] Dr. Noreen Castro CBC AUTO DIFFon 02-11-2022 BASO # 0.1 103/ul Normal 0.0-0.1 [facility] Comment on above: Performed By: #### U A #### [facility] [address] [place] [address] Dr. Noreen Castro Basophils/100 WBC (Bld) 0.6 % Normal 0.2-2.0 [facility] Comment on above: Performed By: #### U A #### [facility] [address] [address] [address] Noreen Castro EO # 0.2 103/ul Normal 0.0-0.7 [facility] Comment on above: Performed By: #### U A #### [facility] [address] [address] [address] Noreen Castro Eosinophils/100 WBC (Bld) 1.2 % Normal 0.9-7.0 [facility] Comment on above: Performed By: #### U A #### [facility] [address] [place] [address] Dr. Noreen Castro Erythrocyte distribution width (RBC) [Ratio] 14.4 % Normal 11.0-15.0 [facility] Comment on above: Performed By: #### U A #### [facility] [address] [place] [address] Dr. Noreen Castro Hematocrit (Bld) [Volume fraction] 39.0 % Normal 36.0-48.0 [facility] Comment on above: Performed By: #### U A #### [facility] [address] [place] [address] Dr. Noreen Castro Hemoglobin (Bld) [Mass/Vol] 12.3 g/dL Normal 12.0-16.0 [facility] Comment on above: Performed By: #### U A #### [facility] [address] [place] [address] Dr. Noreen Castro IG # 0.20 10e3/ul Critically high 0.00-0.03 [facility] Comment on above: Performed By: #### U A #### [facility] [address] [place] [address] Dr. Noreen Castro IG % 1.4 % Critically high 0.0-0.5 [facility] Comment on above: Performed By: #### U A #### [facility] [address] [place] [address] Dr. Noreen Castro LYMPH # 4.4 103/ul Critically high 1.2-3.8 [facility] Comment on above: Performed By: #### U A #### [facility] [address] [place] [address] Dr. Noreen Castro Lymphocytes/100 WBC (Bld) 30.4 % Normal 20.5-60.0 [facility] Comment on above: Performed By: #### U A #### [facility] [address] [place] [address] Dr. Noreen Castro MANUAL DIFF REQ NO Normal [facility] Comment on above: Performed By: #### U A #### [facility] [address] [place] [address] Dr. Noreen Castro MCH (RBC) [Entitic mass] 30.8 pg Normal 26.7-34.0 [facility] Comment on above: Performed By: #### U A #### [facility] [address] [place] [address] Dr. Noreen Castro MCHC (RBC) [Mass/Vol] 31.5 g/dL Normal 29.9-35.2 [facility] Comment on above: Performed By: #### U A #### [facility] [address] [place] [address] Dr. Noreen Castro MCV (RBC) [Entitic vol] 97.5 fL Normal 81.0-99.0 [facility] Comment on above: Performed By: #### U A #### [facility] [address] [place] [address] Dr. Noreen Castro MONO # 1.0 103/ul Critically high 0.3-0.8 [facility] Comment on above: Performed By: #### U A #### [facility] [address] [place] [address] Dr. Noreen Castro Monocytes/100 WBC (Bld) 6.8 % Normal 1.7-12.0 [facility] Comment on above: Performed By: #### U A #### [facility] [address] [place] [address] Dr. Noreen Castro NEUT # 8.6 103/ul Critically high 1.4-6.5 [facility] Comment on above: Performed By: #### U A #### [facility] [address] [address] [address] Noreen Castro Neutrophils/100 WBC (Bld) 59.6 % Normal 43.0-75.0 [facility] Comment on above: Performed By: #### U A #### [facility] [address] [address] [address] Noreen Castro Platelet mean volume (Bld) [Entitic vol] 9.9 fL Normal 9.5-13.5 [facility] Comment on above: Performed By: #### U A #### [facility] [address] [address] [address] Noreen Castro PLT 283 103/ul Normal 150-450 [facility] Comment on above: Performed By: #### U A #### [facility] [address] [place] [address] Dr. Noreen Castro RBC 4.00 106/ul Critically low 4.20-5.40 [facility] Comment on above: Performed By: #### U A #### [facility] [address] [address] [address] Noreen Castro WBC 14.5 103/ul Critically high 4.0-11.0 [facility] Comment on above: Performed By: #### U A #### [facility] [address] [place] [address] Dr. Noreen Castro CULTURE URINEon 02-11-2022 CULTURE [...] Trimethoprim/Sulfamethoxaz ole >=320 R F Normal [facility] Comment on above: Performed By: #### U RCX #### [facility] [address] [address] [address] Noreen Castro DRUG SCREEN RAPID (URINE)on 02-11-2022 AMP Negative Normal NEGATIVE [facility] Comment on above: Performed By: #### U A #### [facility] [address] [address] [address] Noreen Castro BAR Negative Normal NEGATIVE [facility] Comment on above: Performed By: #### U A #### [facility] [address] [address] [address] Noreen Castro BUP Negative Normal NEGATIVE [facility] Comment on above: Performed By: #### U A #### [facility] [address] [place] [address] Dr. Noreen Castro BZO Negative Normal NEGATIVE [facility] Comment on above: Performed By: #### U A #### [facility] [address] [place] [address] Dr. Noreen Castro VERONICA Negative Normal NEGATIVE [facility] Comment on above: Performed By: #### U A #### [facility] [address] [address] [address] Noreen Castro CUT-OFFS SEE BELOW Normal [facility] Comment on above: Result Comment: [...] ng/mL Performed By: #### U A #### [facility] [address] [place] [address] Dr. Noreen Castro DRUG CUT HEADER DRUG CLASS TEST SYST EM CUT-OFF CONCENTRATIONS ARE FOLLOWS: Normal [facility] Comment on above: Performed By: #### U A #### [facility] [address] [place] [address] Dr. Noreen Castro mAMP Negative Normal NEGATIVE [facility] Comment on above: Performed By: #### U A #### [facility] [address] [place] [address] Dr. Noreen Castro MTD Negative Normal NEGATIVE [facility] Comment on above: Performed By: #### U A #### [facility] [address] [place] [address] Dr. Noreen Castro OPI Negative Normal NEGATIVE [facility] Comment on above: Performed By: #### U A #### [facility] [address] [place] [address] Dr. Noreen Castro OXY Negative Normal NEGATIVE [facility] Comment on above: Performed By: #### U A #### [facility] [address] [place] [address] Dr. Noreen Castro PCP Negative Normal NEGATIVE [facility] Comment on above: Performed By: #### U A #### [facility] [address] [place] [address] Dr. Noreen Castro PPX Negative Normal NEGATIVE [facility] Comment on above: Performed By: #### U A #### [facility] [address] [place] [address] Dr. Noreen Castro TCA Positive Abnormal NEGATIVE [facility] Comment on above: Performed By: #### U A #### [facility] [address] [place] [address] Dr. Noreen Castro THC Negative Normal NEGATIVE [facility] Comment on above: Performed By: #### U A #### [facility] [address] [place] [address] Dr. Noreen Castro PROF 14(COMP METB)on 022 Albumin [Mass/Vol] 3.9 g/dL Normal 3.4-5.0 [facility] Comment on above: Performed By: #### C MP, DBIL #### [facility] [address] [place] [address] Dr. Noreen Castro Albumin/Globulin [Mass ratio] 0.9 {ratio} Normal [facility] Comment on above: Performed By: #### C MP, DBIL #### [facility] [address] [place] [address] Dr. Noreen Castro ALP [Catalytic activity/Vol] 76 U/L Normal 46-116 [facility] Comment on above: Performed By: #### C MP, DBIL #### [facility] [address] [place] [address] Dr. Noreen Castro ALT [Catalytic activity/Vol] 39 U/L Normal 14-59 [facility] Comment on above: Performed By: #### C MP, DBIL #### [facility] [address] [place] [address] Dr. Noreen Castro Anion gap [Moles/Vol] 18.4 mmol/L Normal [facility] Comment on above: Performed By: #### C MP, DBIL #### [facility] [address] [place] [address] Dr. Noreen Castro AST [Catalytic activity/Vol] 30 U/L Normal 15-37 [facility] Comment on above: Performed By: #### C MP, DBIL #### [facility] [address] [place] [address] Dr. Noreen Castro Bilirubin [Mass/Vol] 0.4 mg/dL Normal 0.2-1.3 [facility] Comment on above: Performed By: #### C MP, DBIL #### [facility] [address] [place] [address] Dr. Noreen Castro Calcium [Mass/Vol] 9.2 mg/dL Normal 8.5-10.1 [facility] Comment on above: Performed By: #### C MP, DBIL #### [facility] [address] [place] [address] Dr. Noreen Castro Chloride [Moles/Vol] 99 mmol/L Normal 98-107 [facility] Comment on above: Performed By: #### C MP, DBIL #### [facility] [address] [place] [address] Dr. Noreen Castro CO2 [Moles/Vol] 22.2 mmol/L Normal 22.0-30.0 [facility] Comment on above: Performed By: #### C MP, DBIL #### [facility] [address] [place] [address] Dr. Noreen Castro Creatinine [Mass/Vol] 2.72 mg/dL Critically high 0.52-1.04 [facility] Comment on above: Performed By: #### C MP, DBIL #### [facility] [address] [place] [address] Dr. Noreen Castro EGFR-AF CONGOLESE 20 mL/min/1.73m2 Critically low >=60 [facility] Comment on above: Performed By: #### C MP, DBIL #### [facility] [address] [place] [address] Dr. Noreen Castro EGFR-NON AF CONGOLESE 17 mL/min/1.73m2 Critically low >=60 [facility] Comment on above: Performed By: #### C MP, DBIL #### [facility] [address] [place] [address] Dr. Noreen Castro Globulin (S) [Mass/Vol] 4.3 g/dL Normal [facility] Comment on above: Performed By: #### C MP, DBIL #### [facility] [address] [place] [address] Dr. Noreen Castro Glucose [Mass/Vol] 143 mg/dL Critically high 74-106 [facility] Comment on above: Performed By: #### C MP, DBIL #### [facility] [address] [place] [address] Dr. Noreen Castro Potassium [Moles/Vol] 5.6 mmol/L Critically high 3.4-5.0 [facility] Comment on above: Performed By: #### C MP, DBIL #### [facility] [address] [place] [address] Dr. Noreen Castro Protein [Mass/Vol] 8.2 g/dL Normal 6.1-8.2 [facility] Comment on above: Performed By: #### C MP, DBIL #### [facility] [address] [place] [address] Dr. Noreen Castro Sodium [Moles/Vol] 134 mmol/L Critically low 137-145 Th [facility] Comment on above: Performed By: #### C MP, DBIL #### [facility] [address] [place] [address] Dr. Noreen Castro Urea nitrogen [Mass/Vol] 36.0 mg/dL Critically high 7.0-18.0 [facility] Comment on above: Performed By: #### C MP, DBIL #### [facility] [address] [place] [address] Dr. Noreen Castro Urea nitrogen/Creatinin e [Mass ratio] 13.2 mg/mg Normal [facility] Comment on above: Performed By: #### C GALE, DBIL #### [facility] [address] [place] [address] Dr. Noreen Castro UA RANDOMon 02-08-2022 Bilirubin Ql (U) Negative Normal NEGATIVE [facility] Comment on above: Performed By: #### U A #### [facility] [address] [place] [address] Dr. Noreen Castro Clarity (U) SL CLOUDY Abnormal CLEAR [facility] Comment on above: Performed By: #### U A #### [facility] [address] [place] [address] Dr. Noreen Castro Color (U) LT. YELLOW Normal YELLOW [facility] Comment on above: Performed By: #### U A #### [facility] [address] [place] [address] Dr. Noreen Castro Glucose Ql (U) Negative Normal NEGATIVE [facility] Comment on above: Performed By: #### U A #### [facility] [address] [place] [address] Dr. Noreen Castro Hemoglobin Ql (U) TRACE-INTACT Abnormal NEGATIVE [facility] Comment on above: Performed By: #### U A #### [facility] [address] [place] [address] Dr. Noreen Castro Ketones Ql (U) Negative Normal NEGATIVE [facility] Comment on above: Performed By: #### U A #### [facility] [address] [place] [address] Dr. Noreen Castro LEUKOCYTES MODERATE Abnormal NEGATIVE [facility] Comment on above: Performed By: #### U A #### [facility] [address] [place] [address] Dr. Noreen Castro Nitrite Ql (U) Positive Abnormal NEGATIVE [facility] Comment on above: Performed By: #### U A #### [facility] [address] [place] [address] Dr. Noreen Castro pH (U) 5.0 [pH] Normal 5-9 [facility] Comment on above: Performed By: #### U A #### [facility] [address] [place] [address] Dr. Noreen Castro SPEC GRAVITY 1.020 Normal 1.005-<=1.02 5 [facility] Comment on above: Performed By: #### U A #### [facility] [address] [place] [address] Dr. Noreen APLM PROTEIN TRACE Normal NEGATIVE/ TRACE [facility] Comment on above: Performed By: #### U A #### [facility] [address] [place] [address] Dr. Noreen Castro Urobilinogen Qn (U) 0.2 {Scarlett'U}/dL Normal 0.2 - 1.0 [facility] Comment on above: Performed By: #### U A #### [facility] [address] [place] [address] Dr. Noreen Castro CULTURE URINEon 02-01-2022 CULTURE URINE Culture Observations : No growth Normal [facility] Comment on above: Performed By: #### U RCX #### [facility] [address] [place] [address] Dr. Noreen Castro UA RANDOMon 02-01-2022 Bilirubin Ql (U) Negative Normal NEGATIVE [facility] Comment on above: Performed By: #### U A #### [facility] [address] [place] [address] Dr. Noreen Castro Clarity (U) CLEAR Normal CLEAR [facility] Comment on above: Performed By: #### U A #### [facility] [address] [address] [address] Noreen Castro Color (U) YELLOW Normal YELLOW [facility] Comment on above: Performed By: #### U A #### [facility] [address] [address] [address] Noreen Castro Glucose Ql (U) Negative Normal NEGATIVE [facility] Comment on above: Performed By: #### U A #### [facility] [address] [place] [address] Dr. Noreen Castro Hemoglobin Ql (U) SMALL Abnormal NEGATIVE [facility] Comment on above: Performed By: #### U A #### [facility] [address] [place] [address] Dr. Noreen Castro Ketones Ql (U) Negative Normal NEGATIVE [facility] Comment on above: Performed By: #### U A #### [facility] [address] [place] [address] Dr. Noreen Castro LEUKOCYTES Negative Normal NEGATIVE [facility] Comment on above: Performed By: #### U A #### [facility] [address] [place] [address] Dr. Noreen Castro Nitrite Ql (U) Negative Normal NEGATIVE [facility] Comment on above: Performed By: #### U A #### [facility] [address] [place] [address] Dr. Noreen Castro pH (U) 5.0 [pH] Normal 5-9 [facility] Comment on above: Performed By: #### U A #### [facility] [address] [place] [address] Dr. Noreen Castro SPEC GRAVITY 1.025 Normal 1.005-<=1.02 5 [facility] Comment on above: Performed By: #### U A #### [facility] [address] [place] [address] Dr. Noreen Castro UA PROTEIN Negative Normal NEGATIVE/ TRACE [facility] Comment on above: Performed By: #### U A #### [facility] [address] [place] [address] Dr. Noreen Castro Urobilinogen Qn (U) 0.2 {Scarlett'U}/dL Normal 0.2 - 1.0 [facility] Comment on above: Performed By: #### U A #### [facility] [address] [address] [address] Noreen Castro POC GLUCOSE LABon 07-19-2018 Glucose mass conc 97 mg/dL Normal 70-100 [facility] Comment on above: Performed By: #### 0 0121 ####[facility] [facility] [place] [address], [facility] Glucose mass conc 110 mg/dL High 70-100 [facility] Comment on above: Performed By: #### 0 0121 ####[facility] [facility] [place] [address], [facility] Glucose mass conc 93 mg/dL Normal 70-100 [facility] Comment on above: Performed By: #### 0 0121 ####[facility] [facility], [place] [address] Glucose mass conc 92 mg/dL Normal 70-100 [facility] Comment on above: Performed By: #### 0 0121 ####[facility] [place], [place] [id number] [place] [address] CBC COMPLETE BLOOD COUNTon 0 07-18-2018 Erythrocyte distribution width Auto Ratio (RBC) 14.0 % Normal 11.5-15.0 [facility] Comment on above: Order Comment: No: D o not add to previous draw Performed By: #### 0 0121 ####[facility] [facility], [place] [id number] [place] [address] Hematocrit Auto Volume Fraction (Bld) 32.3 % Low 36.0-45.0 [facility] Comment on above: Order Comment: No: D o not add to previous draw Performed By: #### 0 0121 ####[facility] Hemoglobin mass conc (Bld) 10.1 g/dL Low 12.0-15.0 [facility] Comment on above: Order Comment: No: D o not add to previous draw Performed By: #### 0 0121 ####[facility] MCH Auto Entitic mass (RBC) 29.6 pg Normal 27.0-33.0 [facility] Comment on above: Order Comment: No: D o not add to previous draw Performed By: #### 0 0121 ####[facility] MCHC Auto mass conc (RBC) 31.3 g/dL Low 32.0-35.0 [facility] Comment on above: Order Comment: No: D o not add to previous draw Performed By: #### 0 0121 ####[facility] MCV Auto Entitic volume (RBC) 94.7 fL Normal 82.0-98.0 [facility] Comment on above: Order Comment: No: D o not add to previous draw Performed By: #### 0 0121 ####[facility] Nucleated RBC/100 WBC Ratio (Bld) 0 % Normal 0-0 [facility] Comment on above: Order Comment: No: D o not add to previous draw Performed By: #### 0 0121 ####[facility] PLAT CNT 372 10*3/uL Normal 150-400 [facility] Comment on above: Order Comment: No: D o not add to previous draw Performed By: #### 0 0121 ####[facility] RBC Auto #/vol (Bld) 3.41 10*6/uL Low 3.80-5.00 [facility] Comment on above: Order Comment: No: D o not add to previous draw Performed By: #### 0 0121 ####[facility] [address], [facility] WBC Auto #/vol (Bld) 8.69 10*3/uL Normal 4.00-10.60 [facility] Comment on above: Order Comment: No: D o not add to previous draw Performed By: #### 0 0121 ####[facility] [address], [facility] POC GLUCOSE LABon 07-18-2018 Glucose mass conc 101 mg/dL High 70-100 [facility] Comment on above: Performed By: #### 0 0121 ####[facility] [place] [address], [facility] Glucose mass conc 117 mg/dL High 70-100 [facility] Comment on above: Performed By: #### 0 0121 ####[facility] [place] [address], [facility] Glucose mass conc 94 mg/dL Normal 70-100 [facility] Comment on above: Performed By: #### 0 0121 ####[facility] [place] [address], [facility] Glucose mass conc 92 mg/dL Normal 70-100 [facility] Comment on above: Performed By: #### 0 0121 ####[facility] [place] [address], [facility] POC GLUCOSE LABon 07-17-2018 Glucose mass conc 105 mg/dL High 70-100 [facility] Comment on above: Performed By: #### 0 0121 ####[facility] [place] [address], [place] Glucose mass conc 126 mg/dL High 70-100 [facility] Comment on above: Performed By: #### 0 0121 ####[facility] [place] [address], [facility] Glucose mass conc 118 mg/dL High 70-100 [facility] Comment on above: Performed By: #### 0 0121 ####[facility] [place] [address], [place] Glucose mass conc 99 mg/dL Normal 70-100 [facility] Comment on above: Performed By: #### 0 0121 ####[facility] [address], [facility] BASIC METABOLIC PANELon 09-0 Calcium mass conc 9.4 mg/dL Normal 8.6-10.3 [facility] Comment on above: Order Comment: No: D o not add to previous draw Performed By: #### 0 0121 ####[facility] [address], [place] Chloride molar conc 104 mmol/L Normal 98-107 [facility] Comment on above: Order Comment: No: D o not add to previous draw Performed By: #### 0 0121 ####[facility] [place] [address], [place] CO2 molar conc 24 mmol/L Normal 21-31 [facility] Comment on above: Order Comment: No: D o not add to previous draw Performed By: #### 0 0121 ####[facility] [place] [address], [place] Creatinine mass conc 1.11 mg/dL Normal 0.60-1.20 [facility] Comment on above: Order Comment: No: D o not add to previous draw Performed By: #### 0 0121 ####[facility] [place] [address], [place] GFR/1.73 sq M predicted among blacks MDRD vol rate/area (S/P/Bld) 57 ml/min/1.73sq m Abnormal >60 [facility] Comment on above: Order Comment: No: D o not add to previous draw Result Comment: Calc ulation may not be valid for patients over 70 years Performed By: #### 0 0121 ####[facility] [facility] [place] [address], [facility] GFR/1.73 sq M predicted among non-blacks MDRD vol rate/area (S/P/Bld) 47 ml/min/1.73sq m Abnormal >60 [facility] Comment on above: Order Comment: No: D o not add to previous draw Result Comment: Calc ulation may not be valid for patients over 70 years Performed By: #### 0 0121 ####[facility] [facility] [place] [address], [facility] Glucose mass conc 104 mg/dL High 70-100 [facility] Comment on above: Order Comment: No: D o not add to previous draw Performed By: #### 0 0121 ####[facility] [facility] [place] [address], [facility] Potassium molar conc 4.6 mmol/L Normal 3.5-5.1 [facility] Comment on above: Order Comment: No: D o not add to previous draw Performed By: #### 0 0121 ####[facility] [facility] [place] [address], [facility] Sodium molar conc 135 mmol/L Low 136-145 [facility] Comment on above: Order Comment: No: D o not add to previous draw Performed By: #### 0 0121 ####[facility] [facility] [place] [address], [facility] Urea nitrogen mass conc 22 mg/dL Normal 7-25 [facility] Comment on above: Order Comment: No: D o not add to previous draw Performed By: #### 0 0121 ####[facility] CBC W/DIFFon 07-16-2018 ABS BASOPHILS 0.1 10*3/uL Normal 0.0-0.2 [facility] Comment on above: Order Comment: No: D o not add to previous draw Performed By: #### 0 0121 ####[facility] ABS IMM GRANS 0.3 10*3/uL High 0.0-0.2 [facility] Comment on above: Order Comment: No: D o not add to previous draw Performed By: #### 0 0121 ####[place] [id number] ABS NEUTROPHILS 6.5 10*3/uL Normal 1.6-7.6 [facility] Comment on above: Order Comment: No: D o not add to previous draw Performed By: #### 0 0121 ####[facility] Basophils Auto #/vol (Bld) 0.6 % Normal 0.0-1.0 [facility] Comment on above: Order Comment: No: D o not add to previous draw Performed By: #### 0 0121 ####[facility] Eosinophils Auto #/vol (Bld) 0.3 10*3/uL Normal 0.0-0.5 [facility] Comment on above: Order Comment: No: D o not add to previous draw Performed By: #### 0 0121 ####[facility] [place] [address], [facility] Eosinophils/100 WBC Auto (Bld) 2.5 % Normal 0.0-6.0 [facility] Comment on above: Order Comment: No: D o not add to previous draw Performed By: #### 0 0121 ####[facility] Erythrocyte distribution width Auto Ratio (RBC) 14.4 % Normal 11.5-15.0 [facility] Comment on above: Order Comment: No: D o not add to previous draw Performed By: #### 0 0121 ####[facility] [facility] Hematocrit Auto Volume Fraction (Bld) 31.7 % Low 36.0-45.0 [facility] Comment on above: Order Comment: No: D o not add to previous draw Performed By: #### 0 0121 ####[place] [id number] [facility].[address] Hemoglobin mass conc (Bld) 10.1 g/dL Low 12.0-15.0 [facility] Comment on above: Order Comment: No: D o not add to previous draw Performed By: #### 0 0121 ####[facility] IMMATURE GRANS 2.8 % High 0.0-1.0 [facility] Comment on above: Order Comment: No: D o not add to previous draw Performed By: #### 0 0121 ####[place] [id number] Lymphocytes Auto #/vol (Bld) 2.4 10*3/uL Normal 1.2-4.0 [facility] Comment on above: Order Comment: No: D o not add to previous draw Performed By: #### 0 0121 ####[facility] [facility].[address] Lymphocytes/100 WBC Auto (Bld) 22.1 % Normal 20.0-45.0 [facility] Comment on above: Order Comment: No: D o not add to previous draw Performed By: #### 0 0121 ####[address] [place] [address], [place] MCH Auto Entitic mass (RBC) 30.3 pg Normal 27.0-33.0 [facility] Comment on above: Order Comment: No: D o not add to previous draw Performed By: #### 0 0121 ####[facility] MCHC Auto mass conc (RBC) 31.9 g/dL Low 32.0-35.0 [facility] Comment on above: Order Comment: No: D o not add to previous draw Performed By: #### 0 0121 ####[address] MCV Auto Entitic volume (RBC) 95.2 fL Normal 82.0-98.0 [facility] Comment on above: Order Comment: No: D o not add to previous draw Performed By: #### 0 0121 ####[facility] Monocytes Auto #/vol (Bld) 1.2 10*3/uL High 0.1-1.0 [facility] Comment on above: Order Comment: No: D o not add to previous draw Performed By: #### 0 0121 ####[facility] MONOS 11.0 % Normal 5.0-12.0 [facility] Comment on above: Order Comment: No: D o not add to previous draw Performed By: #### 0 0121 ####[place] [id number] Neutrophils/100 WBC Auto (Bld) 61.0 % Normal 40.0-72.0 [facility] Comment on above: Order Comment: No: D o not add to previous draw Performed By: #### 0 0121 ####[facility] [place] [address], [place] Nucleated RBC/100 WBC Ratio (Bld) 0 % Normal 0-0 [facility] Comment on above: Order Comment: No: D o not add to previous draw Performed By: #### 0 0121 ####[facility] [address], [facility] PLAT CNT 450 10*3/uL High 150-400 [facility] Comment on above: Order Comment: No: D o not add to previous draw Performed By: #### 0 0121 ####[facility] [facility].[address] RBC Auto #/vol (Bld) 3.33 10*6/uL Low 3.80-5.00 [facility] Comment on above: Order Comment: No: D o not add to previous draw Performed By: #### 0 0121 ####[facility] WBC Auto #/vol (Bld) 10.68 10*3/uL High 4.00-10.60 [facility] Comment on above: Order Comment: No: D o not add to previous draw Performed By: #### 0 0121 ####[facility] [facility].[address] MAGNESIUM BLOODon 07-16-2018 Magnesium mass conc 2.3 mg/dL Normal 1.9-2.7 [facility] Comment on above: Order Comment: No: D o not add to previous draw Performed By: #### 0 0121 ####[facility] [facility] [place] [address], [facility] PHOSPHORUS BLOODon 8 Phosphate mass conc 3.6 mg/dL Normal 2.5-5.0 [facility] Comment on above: Order Comment: No: D o not add to previous draw Performed By: #### 0 0121 ####[facility] [place] [address], [facility] POC GLUCOSE LABon 07-16-2018 Glucose mass conc 111 mg/dL High 70-100 [facility] Comment on above: Performed By: #### 0 0121 ####[facility] [place] [address], [facility] Glucose mass conc 159 mg/dL High 70-100 [facility] Comment on above: Performed By: #### 0 0121 ####[facility] [place] [address], [facility] Glucose mass conc 103 mg/dL High 70-100 [facility] Comment on above: Performed By: #### 0 0121 ####[facility] [place] [address], [facility] Glucose mass conc 99 mg/dL Normal 70-100 [facility] Comment on above: Performed By: #### 0 0121 ####[facility] [place] [address], [facility] BASIC METABOLIC PANELon Calcium mass conc 8.8 mg/dL Normal 8.6-10.3 [facility] Comment on above: Order Comment: No: D o not add to previous draw Performed By: #### 0 0121 ####[facility] [facility] [place] [address], [facility] Chloride molar conc 106 mmol/L Normal 98-107 [facility] Comment on above: Order Comment: No: D o not add to previous draw Performed By: #### 0 0121 ####[facility] [facility] [place] [address], [facility] CO2 molar conc 23 mmol/L Normal 21-31 [facility] Comment on above: Order Comment: No: D o not add to previous draw Performed By: #### 0 0121 ####[facility] [place] [address], [facility] Creatinine mass conc 1.01 mg/dL Normal 0.60-1.20 [facility] Comment on above: Order Comment: No: D o not add to previous draw Performed By: #### 0 0121 ####[facility] [place] [address], [facility] GFR/1.73 sq M predicted among blacks MDRD vol rate/area (S/P/Bld) mL/min/{1.73_m2} Normal >60 [facility] Comment on above: Order Comment: No: D o not add to previous draw Result Comment: Calc ulation may not be valid for patients over 70 years Performed By: #### 0 0121 ####[facility] [place] [address], [facility] GFR/1.73 sq M predicted among non-blacks MDRD vol rate/area (S/P/Bld) 53 ml/min/1.73sq m Abnormal >60 [facility] Comment on above: Order Comment: No: D o not add to previous draw Result Comment: Calc ulation may not be valid for patients over 70 years Performed By: #### 0 0121 ####[facility] [place] [address], [facility] Glucose mass conc 139 mg/dL High 70-100 [facility] Comment on above: Order Comment: No: D o not add to previous draw Performed By: #### 0 0121 ####[facility] [place] [address], [facility] Potassium molar conc 4.1 mmol/L Normal 3.5-5.1 [facility] Comment on above: Order Comment: No: D o not add to previous draw Performed By: #### 0 0121 ####[facility] [place] [address], [facility] Sodium molar conc 136 mmol/L Normal 136-145 [facility] Comment on above: Order Comment: No: D o not add to previous draw Performed By: #### 0 0121 ####[facility]3000 [facility].[address] Urea nitrogen mass conc 26 mg/dL High 7-25 [facility] Comment on above: Order Comment: No: D o not add to previous draw Performed By: #### 0 0121 ####[facility] [facility].[address] CBC W/DIFFon 07-15-2018 ABS BASOPHILS 0.0 10*3/uL Normal 0.0-0.2 [facility] Comment on above: Order Comment: No: D o not add to previous draw Performed By: #### 0 0121 ####[facility] ABS IMM GRANS 0.3 10*3/uL High 0.0-0.2 [facility] Comment on above: Order Comment: No: D o not add to previous draw Performed By: #### 0 0121 ####[facility] ABS NEUTROPHILS 5.7 10*3/uL Normal 1.6-7.6 [facility] Comment on above: Order Comment: No: D o not add to previous draw Performed By: #### 0 0121 ####[facility] Basophils Auto #/vol (Bld) 0.4 % Normal 0.0-1.0 [facility] Comment on above: Order Comment: No: D o not add to previous draw Performed By: #### 0 0121 ####[facility] [facility].[address] Eosinophils Auto #/vol (Bld) 0.2 10*3/uL Normal 0.0-0.5 [facility] Comment on above: Order Comment: No: D o not add to previous draw Performed By: #### 0 0121 ####[facility] Eosinophils/100 WBC Auto (Bld) 2.1 % Normal 0.0-6.0 [facility] Comment on above: Order Comment: No: D o not add to previous draw Performed By: #### 0 0121 ####[facility] Erythrocyte distribution width Auto Ratio (RBC) 14.1 % Normal 11.5-15.0 [facility] Comment on above: Order Comment: No: D o not add to previous draw Performed By: #### 0 0121 ####[facility] Hematocrit Auto Volume Fraction (Bld) 28.7 % Low 36.0-45.0 [facility] Comment on above: Order Comment: No: D o not add to previous draw Performed By: #### 0 0121 ####[facility] Hemoglobin mass conc (Bld) 9.1 g/dL Low 12.0-15.0 [facility] Comment on above: Order Comment: No: D o not add to previous draw Performed By: #### 0 0121 ####[facility] IMMATURE GRANS 3.4 % High 0.0-1.0 [facility] Comment on above: Order Comment: No: D o not add to previous draw Performed By: #### 0 0121 ####[facility] Lymphocytes Auto #/vol (Bld) 2.6 10*3/uL Normal 1.2-4.0 [facility] Comment on above: Order Comment: No: D o not add to previous draw Performed By: #### 0 0121 ####[facility] Lymphocytes/100 WBC Auto (Bld) 25.8 % Normal 20.0-45.0 [facility] Comment on above: Order Comment: No: D o not add to previous draw Performed By: #### 0 0121 ####[facility] MCH Auto Entitic mass (RBC) 30.4 pg Normal 27.0-33.0 [facility] Comment on above: Order Comment: No: D o not add to previous draw Performed By: #### 0 0121 ####[facility] MCHC Auto mass conc (RBC) 31.7 g/dL Low 32.0-35.0 [facility] Comment on above: Order Comment: No: D o not add to previous draw Performed By: #### 0 0121 ####[facility] MCV Auto Entitic volume (RBC) 96.0 fL Normal 82.0-98.0 [facility] Comment on above: Order Comment: No: D o not add to previous draw Performed By: #### 0 0121 ####[facility] [place] [address] Monocytes Auto #/vol (Bld) 1.0 10*3/uL Normal 0.1-1.0 [facility] Comment on above: Order Comment: No: D o not add to previous draw Performed By: #### 0 0121 ####[facility] [place] [address] MONOS 10.2 % Normal 5.0-12.0 [facility] Comment on above: Order Comment: No: D o not add to previous draw Performed By: #### 0 0121 ####[facility] [place] [address] [place] [address], [facility] Neutrophils/100 WBC Auto (Bld) 58.1 % Normal 40.0-72.0 [facility] Comment on above: Order Comment: No: D o not add to previous draw Performed By: #### 0 0121 ####[facility] [facility] [place] [address], [facility] Nucleated RBC/100 WBC Ratio (Bld) 0 % Normal 0-0 [facility] Comment on above: Order Comment: No: D o not add to previous draw Performed By: #### 0 0121 ####[facility] [place] [address], [facility] PLAT CNT 447 10*3/uL High 150-400 [facility] Comment on above: Order Comment: No: D o not add to previous draw Performed By: #### 0 0121 ####[facility] [facility] [place] [address], [facility] RBC Auto #/vol (Bld) 2.99 10*6/uL Low 3.80-5.00 [facility] Comment on above: Order Comment: No: D o not add to previous draw Performed By: #### 0 0121 ####[facility] [facility] [place] [address], [facility] WBC Auto #/vol (Bld) 9.87 10*3/uL Normal 4.00-10.60 [facility] Comment on above: Order Comment: No: D o not add to previous draw Performed By: #### 0 0121 ####[facility] [facility] [place] [address], [facility] MAGNESIUM BLOODon 07-15-2018 Magnesium mass conc 1.6 mg/dL Low 1.9-2.7 [facility] Comment on above: Order Comment: No: D o not add to previous draw Performed By: #### 0 0121 ####[facility] [place] [address], [facility] PHOSPHORUS BLOODon 8 Phosphate mass conc 3.2 mg/dL Normal 2.5-5.0 [facility] Comment on above: Order Comment: No: D o not add to previous draw Performed By: #### 0 0121 ####[facility] [facility] [place] [address], [facility] POC GLUCOSE LABon 07-15-2018 Glucose mass conc 109 mg/dL High 70-100 [facility] Comment on above: Performed By: #### 0 0121 ####[place] [id number] [facility] [place] [address], [facility] Glucose mass conc 154 mg/dL High 70-100 [facility] Comment on above: Performed By: #### 0 0121 ####[place] [address] [place] [address], [facility] Glucose mass conc 156 mg/dL High 70-100 [facility] Comment on above: Performed By: #### 0 0121 ####[facility] [facility] [place] [address], [facility] Glucose mass conc 166 mg/dL High 70-100 [facility] Comment on above: Performed By: #### 0 0121 ####[facility] [facility].[address] BASIC METABOLIC PANELon Calcium mass conc 9.6 mg/dL Normal 8.6-10.3 [facility] Comment on above: Order Comment: No: D o not add to previous draw Performed By: #### 0 0121 ####[place] [address] [facility] [place] [address], [facility] Chloride molar conc 105 mmol/L Normal 98-107 [facility] Comment on above: Order Comment: No: D o not add to previous draw Performed By: #### 0 0121 ####[facility] [facility] [place] [address], [facility] CO2 molar conc 21 mmol/L Normal 21-31 [facility] Comment on above: Order Comment: No: D o not add to previous draw Performed By: #### 0 0121 ####[facility] [place] [address], [facility] Creatinine mass conc 1.16 mg/dL Normal 0.60-1.20 [facility] Comment on above: Order Comment: No: D o not add to previous draw Performed By: #### 0 0121 ####[facility] [facility] [place] [address], [facility] GFR/1.73 sq M predicted among blacks MDRD vol rate/area (S/P/Bld) 54 ml/min/1.73sq m Abnormal >60 [facility] Comment on above: Order Comment: No: D o not add to previous draw Result Comment: Calc ulation may not be valid for patients over 70 years Performed By: #### 0 0121 ####[facility] [facility] [place] [address], [facility] GFR/1.73 sq M predicted among non-blacks MDRD vol rate/area (S/P/Bld) 45 ml/min/1.73sq m Abnormal >60 [facility] Comment on above: Order Comment: No: D o not add to previous draw Result Comment: Calc ulation may not be valid for patients over 70 years Performed By: #### 0 0121 ####[facility] [place] [address], [facility] Glucose mass conc 172 mg/dL High 70-100 [facility] Comment on above: Order Comment: No: D o not add to previous draw Performed By: #### 0 0121 ####[facility] [place] [address], [facility] Potassium molar conc 4.9 mmol/L Normal 3.5-5.1 [facility] Comment on above: Order Comment: No: D o not add to previous draw Performed By: #### 0 0121 ####[facility] Sodium molar conc 132 mmol/L Low 136-145 [facility] Comment on above: Order Comment: No: D o not add to previous draw Performed By: #### 0 0121 ####[facility] Urea nitrogen mass conc 28 mg/dL High 7-25 [facility] Comment on above: Order Comment: No: D o not add to previous draw Performed By: #### 0 0121 ####[address] CBC W/DIFFon 07-14-2018 ABS BASOPHILS 0.1 10*3/uL Normal 0.0-0.2 [facility] Comment on above: Order Comment: No: D o not add to previous draw Performed By: #### 0 0121 ####[facility] ABS NEUTROPHILS 9.2 10*3/uL High 1.6-7.6 [facility] Comment on above: Order Comment: No: D o not add to previous draw Performed By: #### 0 0121 ####[facility] [place] [address] Basophils Auto #/vol (Bld) 0.9 % Normal 0.0-1.0 [facility] Comment on above: Order Comment: No: D o not add to previous draw Performed By: #### 0 0121 ####[facility] Eosinophils Auto #/vol (Bld) 0.4 10*3/uL Normal 0.0-0.5 [facility] Comment on above: Order Comment: No: D o not add to previous draw Performed By: #### 0 0121 ####[facility] [facility] [place] [address], [facility] Eosinophils/100 WBC Auto (Bld) 2.7 % Normal 0.0-6.0 [facility] Comment on above: Order Comment: No: D o not add to previous draw Performed By: #### 0 0121 ####[facility] [facility].[address] Erythrocyte distribution width Auto Ratio (RBC) 14.4 % Normal 11.5-15.0 [facility] Comment on above: Order Comment: No: D o not add to previous draw Performed By: #### 0 0121 ####[facility] Hematocrit Auto Volume Fraction (Bld) 30.8 % Low 36.0-45.0 [facility] Comment on above: Order Comment: No: D o not add to previous draw Performed By: #### 0 0121 ####[facility] Hemoglobin mass conc (Bld) 9.7 g/dL Low 12.0-15.0 [facility] Comment on above: Order Comment: No: D o not add to previous draw Performed By: #### 0 0121 ####[facility] [facility] [place] [address], [facility] Lymphocytes Auto #/vol (Bld) 2.5 10*3/uL Normal 1.2-4.0 [facility] Comment on above: Order Comment: No: D o not add to previous draw Performed By: #### 0 0121 ####[facility] [place] [address], [facility] Lymphocytes/100 WBC Auto (Bld) 18.2 % Low 20.0-45.0 [facility] Comment on above: Order Comment: No: D o not add to previous draw Performed By: #### 0 0121 ####[facility] [facility].[address] MCH Auto Entitic mass (RBC) 30.6 pg Normal 27.0-33.0 [facility] Comment on above: Order Comment: No: D o not add to previous draw Performed By: #### 0 0121 ####[facility] [facility].[address] MCHC Auto mass conc (RBC) 31.5 g/dL Low 32.0-35.0 [facility] Comment on above: Order Comment: No: D o not add to previous draw Performed By: #### 0 0121 ####[facility] MCV Auto Entitic volume (RBC) 97.2 fL Normal 82.0-98.0 [facility] Comment on above: Order Comment: No: D o not add to previous draw Performed By: #### 0 0121 ####[facility] Monocytes Auto #/vol (Bld) 1.3 10*3/uL High 0.1-1.0 [facility] Comment on above: Order Comment: No: D o not add to previous draw Performed By: #### 0 0121 ####[facility]3000 [facility].[address] MONOS 10.0 % Normal 5.0-12.0 [facility] Comment on above: Order Comment: No: D o not add to previous draw Performed By: #### 0 0121 ####[facility] Neutrophils/100 WBC Auto (Bld) 68.2 % Normal 40.0-72.0 [facility] Comment on above: Order Comment: No: D o not add to previous draw Performed By: #### 0 0121 ####[facility] NRBC SCAN Present Normal [facility] Comment on above: Order Comment: No: D o not add to previous draw Performed By: #### 0 0121 ####[facility] [facility].[address] Nucleated RBC/100 WBC Ratio (Bld) 0 % Normal 0-0 [facility] Comment on above: Order Comment: No: D o not add to previous draw Performed By: #### 0 0121 ####[facility] [facility] [place] [address], [facility] PLAT CNT 509 10*3/uL High 150-400 [facility] Comment on above: Order Comment: No: D o not add to previous draw Performed By: #### 0 0121 ####[facility] [facility].[address] RBC Auto #/vol (Bld) 3.17 10*6/uL Low 3.80-5.00 [facility] Comment on above: Order Comment: No: D o not add to previous draw Performed By: #### 0 0121 ####[facility] [facility] [place] [address], [facility] WBC Auto #/vol (Bld) 13.48 10*3/uL High 4.00-10.60 [facility] Comment on above: Order Comment: No: D o not add to previous draw Performed By: #### 0 0121 ####[facility]3000 [facility].[address] MAGNESIUM BLOODon 07-14-2018 Magnesium mass conc 2.2 mg/dL Normal 1.9-2.7 [facility] Comment on above: Order Comment: No: D o not add to previous draw Performed By: #### 0 0121 ####[facility] [place] [address], [facility] PHOSPHORUS BLOODon 8 Phosphate mass conc 3.8 mg/dL Normal 2.5-5.0 [facility] Comment on above: Order Comment: No: D o not add to previous draw Performed By: #### 0 0121 ####[facility] [place] [address], [facility] POC GLUCOSE LABon 07-14-2018 Glucose mass conc 169 mg/dL High 70-100 [facility] Comment on above: Performed By: #### 0 0121 ####[facility] [place] [address], [facility] Glucose mass conc 188 mg/dL High 70-100 [facility] Comment on above: Performed By: #### 0 0121 ####[facility] [place] [address], [facility] Glucose mass conc 187 mg/dL High 70-100 [facility] Comment on above: Performed By: #### 0 0121 ####[facility] [place] [address], [facility] Glucose mass conc 123 mg/dL High 70-100 [facility] Comment on above: Performed By: #### 0 0121 ####[facility] BASIC METABOLIC PANELon Calcium mass conc 9.2 mg/dL Normal 8.6-10.3 [facility] Comment on above: Order Comment: No: D o not add to previous draw Performed By: #### 0 0121 ####[facility] [place] [address], [facility] Chloride molar conc 104 mmol/L Normal 98-107 [facility] Comment on above: Order Comment: No: D o not add to previous draw Performed By: #### 0 0121 ####[facility] [place] [address], [facility] CO2 molar conc 22 mmol/L Normal 21-31 [facility] Comment on above: Order Comment: No: D o not add to previous draw Performed By: #### 0 0121 ####[facility] [place] [address], [facility] Creatinine mass conc 1.30 mg/dL High 0.60-1.20 [facility] Comment on above: Order Comment: No: D o not add to previous draw Performed By: #### 0 0121 ####[facility] [facility] [place] [address], [facility] GFR/1.73 sq M predicted among blacks MDRD vol rate/area (S/P/Bld) 47 ml/min/1.73sq m Abnormal >60 [facility] Comment on above: Order Comment: No: D o not add to previous draw Result Comment: Calc ulation may not be valid for patients over 70 years Performed By: #### 0 0121 ####[facility] [facility] [place] [address], [facility] GFR/1.73 sq M predicted among non-blacks MDRD vol rate/area (S/P/Bld) 39 ml/min/1.73sq m Abnormal >60 [facility] Comment on above: Order Comment: No: D o not add to previous draw Result Comment: Calc ulation may not be valid for patients over 70 years Performed By: #### 0 0121 ####[facility] [place] [address], [facility] Glucose mass conc 160 mg/dL High 70-100 [facility] Comment on above: Order Comment: No: D o not add to previous draw Performed By: #### 0 0121 ####[facility] [place] [address], [place] Potassium molar conc 4.7 mmol/L Normal 3.5-5.1 [facility] Comment on above: Order Comment: No: D o not add to previous draw Performed By: #### 0 0121 ####[facility] Sodium molar conc 133 mmol/L Low 136-145 [facility] Comment on above: Order Comment: No: D o not add to previous draw Performed By: #### 0 0121 ####[place] [id number] Urea nitrogen mass conc 32 mg/dL High 7-25 [facility] Comment on above: Order Comment: No: D o not add to previous draw Performed By: #### 0 0121 ####[address] CBC W/DIFFon 07-13-2018 ABS BASOPHILS 0.1 10*3/uL Normal 0.0-0.2 [facility] Comment on above: Order Comment: No: D o not add to previous draw Performed By: #### 0 0121 ####[facility] ABS NEUTROPHILS 7.1 10*3/uL Normal 1.6-7.6 [facility] Comment on above: Order Comment: No: D o not add to previous draw Performed By: #### 0 0121 ####[facility] [place] [address] Basophils Auto #/vol (Bld) 1.0 % Normal 0.0-1.0 [facility] Comment on above: Order Comment: No: D o not add to previous draw Performed By: #### 0 0121 ####[facility] Eosinophils Auto #/vol (Bld) 0.1 10*3/uL Normal 0.0-0.5 [facility] Comment on above: Order Comment: No: D o not add to previous draw Performed By: #### 0 0121 ####[facility] [facility] [place] [address], [facility] Eosinophils/100 WBC Auto (Bld) 1.0 % Normal 0.0-6.0 [facility] Comment on above: Order Comment: No: D o not add to previous draw Performed By: #### 0 0121 ####[facility] [facility].[address] Erythrocyte distribution width Auto Ratio (RBC) 14.4 % Normal 11.5-15.0 [facility] Comment on above: Order Comment: No: D o not add to previous draw Performed By: #### 0 0121 ####[facility] Hematocrit Auto Volume Fraction (Bld) 30.2 % Low 36.0-45.0 [facility] Comment on above: Order Comment: No: D o not add to previous draw Performed By: #### 0 0121 ####[facility] Hemoglobin mass conc (Bld) 9.3 g/dL Low 12.0-15.0 [facility] Comment on above: Order Comment: No: D o not add to previous draw Performed By: #### 0 0121 ####[facility] [facility] [place] [address], [facility] Lymphocytes Auto #/vol (Bld) 2.7 10*3/uL Normal 1.2-4.0 [facility] Comment on above: Order Comment: No: D o not add to previous draw Performed By: #### 0 0121 ####[facility] [place] [address], [facility] Lymphocytes/100 WBC Auto (Bld) 23.3 % Normal 20.0-45.0 [facility] Comment on above: Order Comment: No: D o not add to previous draw Performed By: #### 0 0121 ####[facility] [facility].[address] MCH Auto Entitic mass (RBC) 30.3 pg Normal 27.0-33.0 [facility] Comment on above: Order Comment: No: D o not add to previous draw Performed By: #### 0 0121 ####[facility] [facility].[address] MCHC Auto mass conc (RBC) 30.8 g/dL Low 32.0-35.0 [facility] Comment on above: Order Comment: No: D o not add to previous draw Performed By: #### 0 0121 ####[facility] MCV Auto Entitic volume (RBC) 98.4 fL High 82.0-98.0 [facility] Comment on above: Order Comment: No: D o not add to previous draw Performed By: #### 0 0121 ####[facility] METAMYELO 1.9 % High 0.0-0.0 [facility] Comment on above: Order Comment: No: D o not add to previous draw Performed By: #### 0 0121 ####[facility] Monocytes Auto #/vol (Bld) 1.0 10*3/uL Normal 0.1-1.0 [facility] Comment on above: Order Comment: No: D o not add to previous draw Performed By: #### 0 0121 ####[facility] MONOS 8.7 % Normal 5.0-12.0 [facility] Comment on above: Order Comment: No: D o not add to previous draw Performed By: #### 0 0121 ####[facility] [address], [facility] MYELOS 3.9 % High .0-.0 [facility] Comment on above: Order Comment: No: D o not add to previous draw Performed By: #### 0 0121 ####[facility] [id number], [facility] Neutrophils/100 WBC Auto (Bld) 60.2 % Normal 40.0-72.0 [facility] Comment on above: Order Comment: No: D o not add to previous draw Performed By: #### 0 0121 ####[facility] [place] [address], [facility] Nucleated RBC/100 WBC Ratio (Bld) 0 % Normal 0-0 [facility] Comment on above: Order Comment: No: D o not add to previous draw Performed By: #### 0 0121 ####[facility] [place] [address], [facility] PLAT CNT 435 10*3/uL High 150-400 [facility] Comment on above: Order Comment: No: D o not add to previous draw Performed By: #### 0 0121 ####[facility] [place] [address], [facility] RBC Auto #/vol (Bld) 3.07 10*6/uL Low 3.80-5.00 [facility] Comment on above: Order Comment: No: D o not add to previous draw Performed By: #### 0 0121 ####[facility] [id number], [facility] WBC Auto #/vol (Bld) 11.73 10*3/uL High 4.00-10.60 [facility] Comment on above: Order Comment: No: D o not add to previous draw Performed By: #### 0 0121 ####[facility] [place] [address], [facility] MAGNESIUM BLOODon 07-13-2018 Magnesium mass conc 1.8 mg/dL Low 1.9-2.7 [facility] Comment on above: Order Comment: No: D o not add to previous draw Performed By: #### 0 0121 ####[facility] [facility] [place] [address], [facility] PHOSPHORUS BLOODon 8 Phosphate mass conc 3.8 mg/dL Normal 2.5-5.0 [facility] Comment on above: Order Comment: No: D o not add to previous draw Performed By: #### 0 0121 ####[facility] [facility].[address] POC GLUCOSE LABon 07-13-2018 Glucose mass conc 147 mg/dL High 70-100 [facility] Comment on above: Performed By: #### 0 0121 ####[facility] [facility].[address] Glucose mass conc 188 mg/dL High 70-100 [facility] Comment on above: Performed By: #### 0 0121 ####[place] [id number] [facility].[address] Glucose mass conc 150 mg/dL High 70-100 [facility] Comment on above: Performed By: #### 0 0121 ####[facility] [facility].[address] Glucose mass conc 139 mg/dL High 70-100 [facility] Comment on above: Performed By: #### 0 0121 ####[facility] [facility].[address] BASIC METABOLIC PANELon Calcium mass conc 9.7 mg/dL Normal 8.6-10.3 [facility] Comment on above: Order Comment: No: D o not add to previous draw Performed By: #### 0 0121 ####[facility] [place] [address], [facility] Chloride molar conc 103 mmol/L Normal 98-107 [facility] Comment on above: Order Comment: No: D o not add to previous draw Performed By: #### 0 0121 ####[facility] [place] [address], [place] CO2 molar conc 18 mmol/L Low 21-31 [facility] Comment on above: Order Comment: No: D o not add to previous draw Performed By: #### 0 0121 ####[facility] [facility] [place] [address], [facility] Creatinine mass conc 1.33 mg/dL High 0.60-1.20 [facility] Comment on above: Order Comment: No: D o not add to previous draw Performed By: #### 0 0121 ####[facility] [facility] [place] [address], [facility] GFR/1.73 sq M predicted among blacks MDRD vol rate/area (S/P/Bld) 47 ml/min/1.73sq m Abnormal >60 [facility] Comment on above: Order Comment: No: D o not add to previous draw Result Comment: Calc ulation may not be valid for patients over 70 years Performed By: #### 0 0121 ####[facility] [facility] [place] [address], [facility] GFR/1.73 sq M predicted among non-blacks MDRD vol rate/area (S/P/Bld) 39 ml/min/1.73sq m Abnormal >60 [facility] Comment on above: Order Comment: No: D o not add to previous draw Result Comment: Calc ulation may not be valid for patients over 70 years Performed By: #### 0 0121 ####[facility] [place] [address], [place] Glucose mass conc 133 mg/dL High 70-100 [facility] Comment on above: Order Comment: No: D o not add to previous draw Performed By: #### 0 0121 ####[facility] Potassium molar conc 5.2 mmol/L High 3.5-5.1 [facility] Comment on above: Order Comment: No: D o not add to previous draw Performed By: #### 0 0121 ####[facility] [facility].[address] Sodium molar conc 131 mmol/L Low 136-145 [facility] Comment on above: Order Comment: No: D o not add to previous draw Performed By: #### 0 0121 ####[facility] [facility].[address] Urea nitrogen mass conc 31 mg/dL High 7-25 [facility] Comment on above: Order Comment: No: D o not add to previous draw Performed By: #### 0 0121 ####[facility] [facility].[address] CBC W/DIFFon 07-12-2018 ABS BASOPHILS 0.1 10*3/uL Normal 0.0-0.2 [facility] Comment on above: Order Comment: No: D o not add to previous draw Performed By: #### 0 0121 ####[facility] [facility].[address] ABS IMM GRANS 1.2 10*3/uL High 0.0-0.2 [facility] Comment on above: Order Comment: No: D o not add to previous draw Performed By: #### 0 0121 ####[facility] [facility].[address] ABS NEUTROPHILS 7.2 10*3/uL Normal 1.6-7.6 [facility] Comment on above: Order Comment: No: D o not add to previous draw Performed By: #### 0 0121 ####[facility] [place] [address], [facility] Basophils Auto #/vol (Bld) 0.5 % Normal 0.0-1.0 [facility] Comment on above: Order Comment: No: D o not add to previous draw Performed By: #### 0 0121 ####[facility] [facility] [place] [address], [facility] Eosinophils Auto #/vol (Bld) 0.3 10*3/uL Normal 0.0-0.5 [facility] Comment on above: Order Comment: No: D o not add to previous draw Performed By: #### 0 0121 ####[facility] Eosinophils/100 WBC Auto (Bld) 2.3 % Normal 0.0-6.0 [facility] Comment on above: Order Comment: No: D o not add to previous draw Performed By: #### 0 0121 ####[facility] Erythrocyte distribution width Auto Ratio (RBC) 14.2 % Normal 11.5-15.0 [facility] Comment on above: Order Comment: No: D o not add to previous draw Performed By: #### 0 0121 ####[facility] Hematocrit Auto Volume Fraction (Bld) 36.0 % Normal 36.0-45.0 [facility] Comment on above: Order Comment: No: D o not add to previous draw Performed By: #### 0 0121 ####[facility] Hemoglobin mass conc (Bld) 11.2 g/dL Low 12.0-15.0 [facility] Comment on above: Order Comment: No: D o not add to previous draw Performed By: #### 0 0121 ####[facility] IMM PLATELET FRAC 2.2 % Normal 0.8-6.3 [facility] Comment on above: Order Comment: No: D o not add to previous draw Performed By: #### 0 0121 ####[facility] [place] [address] IMMATURE GRANS 9.1 % High 0.0-1.0 [facility] Comment on above: Order Comment: No: D o not add to previous draw Performed By: #### 0 0121 ####[address] Lymphocytes Auto #/vol (Bld) 3.0 10*3/uL Normal 1.2-4.0 [facility] Comment on above: Order Comment: No: D o not add to previous draw Performed By: #### 0 0121 ####[facility] Lymphocytes/100 WBC Auto (Bld) 22.3 % Normal 20.0-45.0 [facility] Comment on above: Order Comment: No: D o not add to previous draw Performed By: #### 0 0121 ####[facility] MCH Auto Entitic mass (RBC) 30.9 pg Normal 27.0-33.0 [facility] Comment on above: Order Comment: No: D o not add to previous draw Performed By: #### 0 0121 ####[address] MCHC Auto mass conc (RBC) 31.1 g/dL Low 32.0-35.0 [facility] Comment on above: Order Comment: No: D o not add to previous draw Performed By: #### 0 0121 ####[facility] MCV Auto Entitic volume (RBC) 99.4 fL High 82.0-98.0 [facility] Comment on above: Order Comment: No: D o not add to previous draw Performed By: #### 0 0121 ####[facility] [place] [address], [facility] Monocytes Auto #/vol (Bld) 1.5 10*3/uL High 0.1-1.0 [facility] Comment on above: Order Comment: No: D o not add to previous draw Performed By: #### 0 0121 ####[facility] [facility].[address] MONOS 11.3 % Normal 5.0-12.0 [facility] Comment on above: Order Comment: No: D o not add to previous draw Performed By: #### 0 0121 ####[facility] [facility].[address] Neutrophils/100 WBC Auto (Bld) 54.5 % Normal 40.0-72.0 [facility] Comment on above: Order Comment: No: D o not add to previous draw Performed By: #### 0 0121 ####[facility] [facility].[address] Nucleated RBC/100 WBC Ratio (Bld) 0 % Normal 0-0 [facility] Comment on above: Order Comment: No: D o not add to previous draw Performed By: #### 0 0121 ####[facility] [facility] [place] [address], [facility] PLAT CNT 425 10*3/uL High 150-400 [facility] Comment on above: Order Comment: No: D o not add to previous draw Performed By: #### 0 0121 ####[facility] [place] [address], [facility] RBC Auto #/vol (Bld) 3.62 10*6/uL Low 3.80-5.00 [facility] Comment on above: Order Comment: No: D o not add to previous draw Performed By: #### 0 0121 ####[facility] [place] [address], [facility] WBC Auto #/vol (Bld) 13.29 10*3/uL High 4.00-10.60 [facility] Comment on above: Order Comment: No: D o not add to previous draw Performed By: #### 0 0121 ####[facility] [place] [address], [facility] MAGNESIUM BLOODon 07-12-2018 Magnesium mass conc 2.1 mg/dL Normal 1.9-2.7 [facility] Comment on above: Order Comment: No: D o not add to previous draw Performed By: #### 0 0121 ####[facility] [place] [address], [facility] PHOSPHORUS BLOODon 8 Phosphate mass conc 4.6 mg/dL Normal 2.5-5.0 [facility] Comment on above: Order Comment: No: D o not add to previous draw Performed By: #### 0 0121 ####[facility] [place] [address], [facility] POC GLUCOSE LABon 07-12-2018 Glucose mass conc 145 mg/dL High 70-100 [facility] Comment on above: Performed By: #### 0 0121 ####[facility] [place] [address], [facility] Glucose mass conc 184 mg/dL High 70-100 [facility] Comment on above: Performed By: #### 0 0121 ####[facility] [place] [address], [facility] Glucose mass conc 134 mg/dL High 70-100 [facility] Comment on above: Performed By: #### 0 0121 ####[facility] [place] [address], [facility] Glucose mass conc 168 mg/dL High 70-100 [facility] Comment on above: Performed By: #### 0 0121 ####[facility] [place] [address], [facility] ABDOMEN SERIES W CHESTon ABDOMEN SERIES W CHEST [facility] [place] [id number] Stacy ent Name: VIDHYA GIORDANO : 1940Sex: FAge: Race: WhiteMRN: [id number]. Location: [id number] Status: IVisit #: [id number] Date: 07/11/2018 11:25:00 AMCompleted Date: 07/11/2018 01:43 PMRequesting Provider: ROSIBEL PERRY Attending Provider: MEG ABEBE Report Copy To: Signs & Symptoms: Post OPHistory: Patient history not availableComments: R/O ObstructionExam: ABDOMEN SERIES W CHESTAccession #: [id number] ===ABDOMEN SERIES W CHEST 07/11/2018 1:43 PM [...] obstruction. Electronically signed by:Nora Sethi. Transcribed by: [email or web address], User Resident: Electronically Signed by: NORA SETHI @ 07/12/2018 07:26 AM Normal [facility] Comment on above: Order Comment: R/O O bstruction BASIC METABOLIC PANELon - Calcium mass conc 10.2 mg/dL Normal 8.6-10.3 [facility] Comment on above: Order Comment: No: D o not add to previous draw Performed By: #### 0 0121 ####[facility] [facility] [place] [address], [facility] Chloride molar conc 102 mmol/L Normal 98-107 [facility] Comment on above: Order Comment: No: D o not add to previous draw Performed By: #### 0 0121 ####[facility] [facility] [place] [address], [facility] CO2 molar conc 21 mmol/L Normal 21-31 [facility] Comment on above: Order Comment: No: D o not add to previous draw Performed By: #### 0 0121 ####[facility] [facility] [place] [address], [facility] Creatinine mass conc 1.30 mg/dL High 0.60-1.20 [facility] Comment on above: Order Comment: No: D o not add to previous draw Performed By: #### 0 0121 ####[facility] [facility] [place] [address], [facility] GFR/1.73 sq M predicted among blacks MDRD vol rate/area (S/P/Bld) 47 ml/min/1.73sq m Abnormal >60 [facility] Comment on above: Order Comment: No: D o not add to previous draw Result Comment: Calc ulation may not be valid for patients over 70 years Performed By: #### 0 0121 ####[facility] [address], [facility] GFR/1.73 sq M predicted among non-blacks MDRD vol rate/area (S/P/Bld) 39 ml/min/1.73sq m Abnormal >60 [facility] Comment on above: Order Comment: No: D o not add to previous draw Result Comment: Calc ulation may not be valid for patients over 70 years Performed By: #### 0 0121 ####[facility] [place] [address], [facility] Glucose mass conc 162 mg/dL High 70-100 [facility] Comment on above: Order Comment: No: D o not add to previous draw Performed By: #### 0 0121 ####[facility] [facility] [place] [address], [facility] Potassium molar conc 5.6 mmol/L High 3.5-5.1 [facility] Comment on above: Order Comment: No: D o not add to previous draw Performed By: #### 0 0121 ####[facility] [place] [address], [facility] Sodium molar conc 132 mmol/L Low 136-145 [facility] Comment on above: Order Comment: No: D o not add to previous draw Performed By: #### 0 0121 ####[facility] [place] [address], [facility] Urea nitrogen mass conc 29 mg/dL High 7-25 [facility] Comment on above: Order Comment: No: D o not add to previous draw Performed By: #### 0 0121 ####[facility] CBC COMPLETE BLOOD COUNTon 0 07-11-2018 Erythrocyte distribution width Auto Ratio (RBC) 14.1 % Normal 11.5-15.0 [facility] Comment on above: Order Comment: This order is a replacement of the rejected order with accession [id number]. Performed By: #### 0 0121 ####[facility] Hematocrit Auto Volume Fraction (Bld) 33.4 % Low 36.0-45.0 [facility] Comment on above: Order Comment: This order is a replacement of the rejected order with accession [id number]. Performed By: #### 0 0121 ####[address] Hemoglobin mass conc (Bld) 10.5 g/dL Low 12.0-15.0 [facility] Comment on above: Order Comment: This order is a replacement of the rejected order with accession [id number]. Performed By: #### 0 0121 ####[facility] MCH Auto Entitic mass (RBC) 30.3 pg Normal 27.0-33.0 [facility] Comment on above: Order Comment: This order is a replacement of the rejected order with accession [id number]. Performed By: #### 0 0121 ####[facility] MCHC Auto mass conc (RBC) 31.4 g/dL Low 32.0-35.0 [facility] Comment on above: Order Comment: This order is a replacement of the rejected order with accession [id number]. Performed By: #### 0 0121 ####[facility] MCV Auto Entitic volume (RBC) 96.5 fL Normal 82.0-98.0 [facility] Comment on above: Order Comment: This order is a replacement of the rejected order with accession [id number]. Performed By: #### 0 0121 ####[facility] Nucleated RBC/100 WBC Ratio (Bld) 0 % Normal 0-0 [facility] Comment on above: Order Comment: This order is a replacement of the rejected order with accession [id number]. Performed By: #### 0 0121 ####[facility] [facility].[address] PLAT CNT 527 10*3/uL High 150-400 [facility] Comment on above: Order Comment: This order is a replacement of the rejected order with accession [id number]. Performed By: #### 0 0121 ####[place] [id number] [address] RBC Auto #/vol (Bld) 3.46 10*6/uL Low 3.80-5.00 [facility] Comment on above: Order Comment: This order is a replacement of the rejected order with accession [id number]. Performed By: #### 0 0121 ####[place] [address] [address] WBC Auto #/vol (Bld) 15.56 10*3/uL High 4.00-10.60 [facility] Comment on above: Order Comment: This order is a replacement of the rejected order with accession [id number]. Performed By: #### 0 0121 ####[facility] MAGNESIUM BLOODon 07-11-2018 Magnesium mass conc 1.7 mg/dL Low 1.9-2.7 [facility] Comment on above: Order Comment: No: D o not add to previous draw Performed By: #### 0 0121 ####[facility] [place] [address], [facility] PHOSPHORUS BLOODon 8 Phosphate mass conc 4.6 mg/dL Normal 2.5-5.0 [facility] Comment on above: Order Comment: No: D o not add to previous draw Performed By: #### 0 0121 ####[facility] [place] [address], [facility] POC GLUCOSE LABon 07-11-2018 Glucose mass conc 158 mg/dL High 70-100 [facility] Comment on above: Performed By: #### 0 0121 ####[facility]3000 [facility] [place] [address], [facility] Glucose mass conc 204 mg/dL High 70-100 [facility] Comment on above: Performed By: #### 0 0121 ####[facility], [place] [id number] [place] [address] Glucose mass conc 186 mg/dL High 70-100 [facility] Comment on above: Performed By: #### 0 0121 ####[facility]3000 [facility].[address] *BLOOD CULTUREon 07-10-2018 Bacteria identified in Blood by Culture Clinical Report: (D) Specimen: BLOOD CULTURE Collected: 07/10/2018 11:19 Status: Final Last Updated: 07/16/2018 06:46 CULT RES (Final) No Growth Day 5 Normal [facility] Comment on above: Performed By: #### 0 0121 ####[facility] [facility] [place] [address], [facility] BASIC METABOLIC PANELon Calcium mass conc 9.9 mg/dL Normal 8.6-10.3 [facility] Comment on above: Order Comment: No: D o not add to previous draw Performed By: #### 0 0121 ####[facility] [facility] [place] [address], [facility] Chloride molar conc 101 mmol/L Normal 98-107 [facility] Comment on above: Order Comment: No: D o not add to previous draw Performed By: #### 0 0121 ####[facility] [place] [address], [facility] CO2 molar conc 22 mmol/L Normal 21-31 [facility] Comment on above: Order Comment: No: D o not add to previous draw Performed By: #### 0 0121 ####[facility] [facility] [place] [address], [facility] Creatinine mass conc 1.18 mg/dL Normal 0.60-1.20 [facility] Comment on above: Order Comment: No: D o not add to previous draw Performed By: #### 0 0121 ####[facility] [facility] [place] [address], [facility] GFR/1.73 sq M predicted among blacks MDRD vol rate/area (S/P/Bld) 53 ml/min/1.73sq m Abnormal >60 [facility] Comment on above: Order Comment: No: D o not add to previous draw Result Comment: Calc ulation may not be valid for patients over 70 years Performed By: #### 0 0121 ####[facility] [facility] [place] [address], [facility] GFR/1.73 sq M predicted among non-blacks MDRD vol rate/area (S/P/Bld) 45 ml/min/1.73sq m Abnormal >60 [facility] Comment on above: Order Comment: No: D o not add to previous draw Result Comment: Calc ulation may not be valid for patients over 70 years Performed By: #### 0 0121 ####[facility] [place] [address], [facility] Glucose mass conc 212 mg/dL High 70-100 [facility] Comment on above: Order Comment: No: D o not add to previous draw Performed By: #### 0 0121 ####[facility] Potassium molar conc 5.1 mmol/L Normal 3.5-5.1 [facility] Comment on above: Order Comment: No: D o not add to previous draw Performed By: #### 0 0121 ####[place] [address] Sodium molar conc 132 mmol/L Low 136-145 [facility] Comment on above: Order Comment: No: D o not add to previous draw Performed By: #### 0 0121 ####[address] Urea nitrogen mass conc 28 mg/dL High 7-25 [facility] Comment on above: Order Comment: No: D o not add to previous draw Performed By: #### 0 0121 ####[address] CBC W/DIFFon 07-10-2018 ABS BASOPHILS 0.2 10*3/uL Normal 0.0-0.2 [facility] Comment on above: Order Comment: No: D o not add to previous draw Performed By: #### 0 0121 ####[address] ABS IMM GRANS 2.1 10*3/uL High 0.0-0.2 [facility] Comment on above: Order Comment: No: D o not add to previous draw Performed By: #### 0 0121 ####[facility] ABS NEUTROPHILS 13.5 10*3/uL High 1.6-7.6 [facility] Comment on above: Order Comment: No: D o not add to previous draw Performed By: #### 0 0121 ####[address] Basophils Auto #/vol (Bld) 1.0 % Normal 0.0-1.0 [facility] Comment on above: Order Comment: No: D o not add to previous draw Performed By: #### 0 0121 ####[facility] Eosinophils Auto #/vol (Bld) 0.2 10*3/uL Normal 0.0-0.5 [facility] Comment on above: Order Comment: No: D o not add to previous draw Performed By: #### 0 0121 ####[facility] [facility].[address] Eosinophils/100 WBC Auto (Bld) 1.0 % Normal 0.0-6.0 [facility] Comment on above: Order Comment: No: D o not add to previous draw Performed By: #### 0 0121 ####[facility] [facility].[address] Erythrocyte distribution width Auto Ratio (RBC) 13.9 % Normal 11.5-15.0 [facility] Comment on above: Order Comment: No: D o not add to previous draw Performed By: #### 0 0121 ####[facility]3000 [facility].[address] Hematocrit Auto Volume Fraction (Bld) 32.3 % Low 36.0-45.0 [facility] Comment on above: Order Comment: No: D o not add to previous draw Performed By: #### 0 0121 ####[facility]3000 [facility].[address] Hemoglobin mass conc (Bld) 10.4 g/dL Low 12.0-15.0 [facility] Comment on above: Order Comment: No: D o not add to previous draw Performed By: #### 0 0121 ####[facility] [place] [address], [facility] Lymphocytes Auto #/vol (Bld) 2.8 10*3/uL Normal 1.2-4.0 [facility] Comment on above: Order Comment: No: D o not add to previous draw Performed By: #### 0 0121 ####[facility] Lymphocytes/100 WBC Auto (Bld) 15.0 % Low 20.0-45.0 [facility] Comment on above: Order Comment: No: D o not add to previous draw Performed By: #### 0 0121 ####[facility] MCH Auto Entitic mass (RBC) 30.6 pg Normal 27.0-33.0 [facility] Comment on above: Order Comment: No: D o not add to previous draw Performed By: #### 0 0121 ####[facility] MCHC Auto mass conc (RBC) 32.2 g/dL Normal 32.0-35.0 [facility] Comment on above: Order Comment: No: D o not add to previous draw Performed By: #### 0 0121 ####[facility] MCV Auto Entitic volume (RBC) 95.0 fL Normal 82.0-98.0 [facility] Comment on above: Order Comment: No: D o not add to previous draw Performed By: #### 0 0121 ####[facility] METAMYELO 4.0 % High 0.0-0.0 [facility] Comment on above: Order Comment: No: D o not add to previous draw Performed By: #### 0 0121 ####[facility] [place] [address] Monocytes Auto #/vol (Bld) 0.9 10*3/uL Normal 0.1-1.0 [facility] Comment on above: Order Comment: No: D o not add to previous draw Performed By: #### 0 0121 ####[facility] [place] [address], [facility] MONOS 5.0 % Normal 5.0-12.0 [facility] Comment on above: Order Comment: No: D o not add to previous draw Performed By: #### 0 0121 ####[facility] MYELOS 2.0 % High .0-.0 [facility] Comment on above: Order Comment: No: D o not add to previous draw Performed By: #### 0 0121 ####[facility] Neutrophils/100 WBC Auto (Bld) 72.0 % Normal 40.0-72.0 [facility] Comment on above: Order Comment: No: D o not add to previous draw Performed By: #### 0 0121 ####[facility] Nucleated RBC/100 WBC Ratio (Bld) 0 % Normal 0-0 [facility] Comment on above: Order Comment: No: D o not add to previous draw Performed By: #### 0 0121 ####[facility] [place] [address], [facility] PLAT CNT 530 10*3/uL High 150-400 [facility] Comment on above: Order Comment: No: D o not add to previous draw Performed By: #### 0 0121 ####[facility] [place] [address] RBC Auto #/vol (Bld) 3.40 10*6/uL Low 3.80-5.00 [facility] Comment on above: Order Comment: No: D o not add to previous draw Performed By: #### 0 0121 ####[address] WBC Auto #/vol (Bld) 18.70 10*3/uL High 4.00-10.60 [facility] Comment on above: Order Comment: No: D o not add to previous draw Performed By: #### 0 0121 ####[address] ABDOMEN AND PELVIS WO CON TRASTon 07-10-2018 CT ABDOMEN AND PELVIS WO CONTRAST [facility] [place], [place] [id number] Stacy ent Name: VIDHYA GIORDANO : 1940Sex: FAge: Race: WhiteMRN: [id number]. Location: [id number] Status: IVisit #: [id number] Date: 07/10/2018 11:10:00 AMCompleted Date: 07/10/2018 02:44 PMRequesting Provider: MEG ABEBE Attending Provider: MEG ABEBE Report Copy To: Signs & Symptoms: AbscessHistory: Patient history not availableComments: Other, leukocytosis. need oral contrastExam: CT ABDOMEN AND PELVIS WO CONTRASTAccession #: [id number] ===CT ABDOMEN AND PELVIS WO CONTRAST 07/10/2018 [...] findings. Electronically signed by:Rhoda Nicole. Transcribed by: [email or web address], User Resident: WU TURNERElectronically Signed by: RHODA NICOLE @ 07/12/2018 10:55 AMI personally read this/these film(s) with this resident Normal [facility] Comment on above: Order Comment: Other , leukocytosis. need oral contrast MAGNESIUM BLOODon 07-10-2018 Magnesium mass conc 1.8 mg/dL Low 1.9-2.7 [facility] Comment on above: Order Comment: No: D o not add to previous draw Performed By: #### 0 0121 ####[facility] [facility] [place] [address], [facility] PHOSPHORUS BLOODon 8 Phosphate mass conc 4.4 mg/dL Normal 2.5-5.0 [facility] Comment on above: Order Comment: No: D o not add to previous draw Performed By: #### 0 0121 ####[facility] [facility] [place] [address], [facility] POC GLUCOSE LABon 07-10-2018 Glucose mass conc 183 mg/dL High 70-100 [facility] Comment on above: Performed By: #### 0 0121 ####[facility] [facility] [place] [address], [facility] Glucose mass conc 195 mg/dL High 70-100 [facility] Comment on above: Performed By: #### 0 0121 ####[facility] [facility] [place] [address], [facility] Glucose mass conc 246 mg/dL High 70-100 [facility] Comment on above: Performed By: #### 0 0121 ####[facility] [facility] [place] [address], [facility] Glucose mass conc 187 mg/dL High 70-100 [facility] Comment on above: Performed By: #### 0 0121 ####[facility]3000 [facility].[address] *BLOOD CULTUREon 07-09-2018 Bacteria identified in Blood by Culture Clinical Report: (D) Specimen: BLOOD CULTURE Collected: 07/09/2018 17:53 Status: Final Last Updated: 07/15/2018 07:43 CULT RES (Final) No Growth Day 5 Normal [facility] Comment on above: Performed By: #### 0 0121 ####[address] BASIC METABOLIC PANELon Calcium mass conc 9.2 mg/dL Normal 8.6-10.3 [facility] Comment on above: Order Comment: No: D o not add to previous draw Performed By: #### 0 0121 ####[place] [address] [place] [address], [facility] Chloride molar conc 102 mmol/L Normal 98-107 [facility] Comment on above: Order Comment: No: D o not add to previous draw Performed By: #### 0 0121 ####[facility] [place] [address], [facility] CO2 molar conc 25 mmol/L Normal 21-31 [facility] Comment on above: Order Comment: No: D o not add to previous draw Performed By: #### 0 0121 ####[place] [address], [facility] Creatinine mass conc 0.95 mg/dL Normal 0.60-1.20 [facility] Comment on above: Order Comment: No: D o not add to previous draw Performed By: #### 0 0121 ####[facility] [place] [address], [facility] GFR/1.73 sq M predicted among blacks MDRD vol rate/area (S/P/Bld) mL/min/{1.73_m2} Normal >60 [facility] Comment on above: Order Comment: No: D o not add to previous draw Result Comment: Calc ulation may not be valid for patients over 70 years Performed By: #### 0 0121 ####[place] [address] [place] [address], [facility] GFR/1.73 sq M predicted among non-blacks MDRD vol rate/area (S/P/Bld) 56 ml/min/1.73sq m Abnormal >60 [facility] Comment on above: Order Comment: No: D o not add to previous draw Result Comment: Calc ulation may not be valid for patients over 70 years Performed By: #### 0 0121 ####[facility] [place] [address], [facility] Glucose mass conc 178 mg/dL High 70-100 [facility] Comment on above: Order Comment: No: D o not add to previous draw Performed By: #### 0 0121 ####[facility] [place] [address], [facility] Potassium molar conc 4.5 mmol/L Normal 3.5-5.1 [facility] Comment on above: Order Comment: No: D o not add to previous draw Performed By: #### 0 0121 ####[facility] [place] [address], [facility] Sodium molar conc 131 mmol/L Low 136-145 [facility] Comment on above: Order Comment: No: D o not add to previous draw Performed By: #### 0 0121 ####[facility] [address] Urea nitrogen mass conc 28 mg/dL High 7-25 [facility] Comment on above: Order Comment: No: D o not add to previous draw Performed By: #### 0 0121 ####[address] CBC W/DIFFon 07-09-2018 ABS BASOPHILS 0.0 10*3/uL Normal 0.0-0.2 [facility] Comment on above: Order Comment: No: D o not add to previous draw Performed By: #### 0 0121 ####[address] ABS NEUTROPHILS 12.4 10*3/uL High 1.6-7.6 [facility] Comment on above: Order Comment: No: D o not add to previous draw Performed By: #### 0 0121 ####[address] Basophils Auto #/vol (Bld) 0.0 % Normal 0.0-1.0 [facility] Comment on above: Order Comment: No: D o not add to previous draw Performed By: #### 0 0121 ####[address] Eosinophils Auto #/vol (Bld) 0.3 10*3/uL Normal 0.0-0.5 [facility] Comment on above: Order Comment: No: D o not add to previous draw Performed By: #### 0 0121 ####[address] Eosinophils/100 WBC Auto (Bld) 1.8 % Normal 0.0-6.0 [facility] Comment on above: Order Comment: No: D o not add to previous draw Performed By: #### 0 0121 ####[address] [place] [address], [place] Erythrocyte distribution width Auto Ratio (RBC) 14.0 % Normal 11.5-15.0 [facility] Comment on above: Order Comment: No: D o not add to previous draw Performed By: #### 0 0121 ####[facility] [place] [address], [facility] GIANT PLATELETS Present Normal [facility] Comment on above: Order Comment: No: D o not add to previous draw Performed By: #### 0 0121 ####[facility] Hematocrit Auto Volume Fraction (Bld) 30.0 % Low 36.0-45.0 [facility] Comment on above: Order Comment: No: D o not add to previous draw Performed By: #### 0 0121 ####[facility] Hemoglobin mass conc (Bld) 9.6 g/dL Low 12.0-15.0 [facility] Comment on above: Order Comment: No: D o not add to previous draw Performed By: #### 0 0121 ####[address] Lymphocytes Auto #/vol (Bld) 3.1 10*3/uL Normal 1.2-4.0 [facility] Comment on above: Order Comment: No: D o not add to previous draw Performed By: #### 0 0121 ####[facility] [place] [address], [facility] Lymphocytes/100 WBC Auto (Bld) 17.4 % Low 20.0-45.0 [facility] Comment on above: Order Comment: No: D o not add to previous draw Performed By: #### 0 0121 ####[facility] [place] [address], [facility] MCH Auto Entitic mass (RBC) 30.6 pg Normal 27.0-33.0 [facility] Comment on above: Order Comment: No: D o not add to previous draw Performed By: #### 0 0121 ####[facility]3000 [facility].[address] MCHC Auto mass conc (RBC) 32.0 g/dL Normal 32.0-35.0 [facility] Comment on above: Order Comment: No: D o not add to previous draw Performed By: #### 0 0121 ####[facility] [facility].[address] MCV Auto Entitic volume (RBC) 95.5 fL Normal 82.0-98.0 [facility] Comment on above: Order Comment: No: D o not add to previous draw Performed By: #### 0 0121 ####[facility] [facility].[address] METAMYELO 1.8 % High 0.0-0.0 [facility] Comment on above: Order Comment: No: D o not add to previous draw Performed By: #### 0 0121 ####[facility] [facility].[address] Monocytes Auto #/vol (Bld) 1.3 10*3/uL High 0.1-1.0 [facility] Comment on above: Order Comment: No: D o not add to previous draw Performed By: #### 0 0121 ####[facility] [facility].[address] MONOS 7.4 % Normal 5.0-12.0 [facility] Comment on above: Order Comment: No: D o not add to previous draw Performed By: #### 0 0121 ####[facility] MYELOS 0.9 % High .0-.0 [facility] Comment on above: Order Comment: No: D o not add to previous draw Performed By: #### 0 0121 ####[facility] [address] [address], [facility] Neutrophils/100 WBC Auto (Bld) 70.7 % Normal 40.0-72.0 [facility] Comment on above: Order Comment: No: D o not add to previous draw Performed By: #### 0 0121 ####[facility] NRBC SCAN Present Normal [facility] Comment on above: Order Comment: No: D o not add to previous draw Performed By: #### 0 0121 ####[facility] [facility].[address] Nucleated RBC/100 WBC Ratio (Bld) 0 % Normal 0-0 [facility] Comment on above: Order Comment: No: D o not add to previous draw Performed By: #### 0 0121 ####[facility] [facility].[address] PLAT CNT 430 10*3/uL High 150-400 [facility] Comment on above: Order Comment: No: D o not add to previous draw Performed By: #### 0 0121 ####[facility] [facility].[address] RBC Auto #/vol (Bld) 3.14 10*6/uL Low 3.80-5.00 [facility] Comment on above: Order Comment: No: D o not add to previous draw Performed By: #### 0 0121 ####[facility] [place] [address], [facility] WBC Auto #/vol (Bld) 17.58 10*3/uL High 4.00-10.60 [facility] Comment on above: Order Comment: No: D o not add to previous draw Performed By: #### 0 0121 ####[facility] [facility] [place] [address], [facility] MAGNESIUM BLOODon 07-09-2018 Magnesium mass conc 1.8 mg/dL Low 1.9-2.7 [facility] Comment on above: Order Comment: No: D o not add to previous draw Performed By: #### 0 0121 ####[facility] [facility] [place] [address], [facility] PHOSPHORUS BLOODon 8 Phosphate mass conc 4.1 mg/dL Normal 2.5-5.0 [facility] Comment on above: Order Comment: No: D o not add to previous draw Performed By: #### 0 0121 ####[facility] [facility] [place] [address], [facility] POC GLUCOSE LABon 07-09-2018 Glucose mass conc 172 mg/dL High 70-100 [facility] Comment on above: Performed By: #### 0 0121 ####[place] [address] [facility] [place] [address], [facility] Glucose mass conc 179 mg/dL High 70-100 [facility] Comment on above: Performed By: #### 0 0121 ####[place] [address] [facility] [place] [address], [facility] Glucose mass conc 168 mg/dL High 70-100 [facility] Comment on above: Performed By: #### 0 0121 ####[facility] [facility] [place] [address], [facility] [facility] Glucose mass conc 147 mg/dL High 70-100 [facility] Comment on above: Performed By: #### 0 0121 ####[address] [place] [address], [facility] PORTABLE CHEST 1 VIEWon PORTABLE CHEST 1 VIEW [facility] Tzb[address] [place] [address] Stacy ent Name: VIDHYA GIORDANO : 1940Sex: FAge: Race: WhiteMRN: [id number]. Location: [id number] Status: IVisit #: [id number] Date: 07/09/2018 5:25:00 PMCompleted Date: 07/09/2018 06:13 PMRequesting Provider: MARLIN DELGADO Attending Provider: MEG ABEBE Report Copy To: Signs & Symptoms: Elevated WBCHistory: Patient history not availableComments: R/O PneumoniaExam: PORTABLE CHEST 1 VIEWAccession #: [id number] ===PORTABLE CHEST 1 VIEW 07/09/2018 6:13 PM [...] findings. Electronically signed by:Rhoda Nicole. Transcribed by: [email or web address], User Resident: [email or web address] TURNERElectronically Signed by: RHODA NICOLE @ 07/10/2018 12:40 PMI personally read this/these film(s) with this resident Normal [facility] Comment on above: Order Comment: R/O P neumonia URINALYSIS REFLEXon 07-09-20 18 APPEARANCE CLEAR Normal CLEAR [facility] Comment on above: Order Comment: No: D o not add to previous drawCriteria for reflexing a culture was not met. Please call the lab [id number] within 24 hours of collection time if culture is needed Performed By: #### 0 0121 ####[facility] [place] [address], [facility] BILIRUBIN Negative Normal NEGATIVE [facility] Comment on above: Order Comment: No: D o not add to previous drawCriteria for reflexing a culture was not met. Please call the lab [id number] within 24 hours of collection time if culture is needed Performed By: #### 0 0121 ####[facility] [address], [place] BLOOD Negative Normal NEGATIVE [facility] Comment on above: Order Comment: No: D o not add to previous drawCriteria for reflexing a culture was not met. Please call the lab [id number] within 24 hours of collection time if culture is needed Performed By: #### 0 0121 ####[facility] [place] [address], [place] COLOR YELLOW Normal YELLOW [facility] Comment on above: Order Comment: No: D o not add to previous drawCriteria for reflexing a culture was not met. Please call the lab [id number] within 24 hours of collection time if culture is needed Performed By: #### 0 0121 ####[facility] [address], [place] GLUCOSE Negative Normal NEGATIVE [facility] Comment on above: Order Comment: No: D o not add to previous drawCriteria for reflexing a culture was not met. Please call the lab [id number] within 24 hours of collection time if culture is needed Performed By: #### 0 0121 ####[facility] [facility] [place] [address], [facility] KETONE Negative Normal NEGATIVE [facility] Comment on above: Order Comment: No: D o not add to previous drawCriteria for reflexing a culture was not met. Please call the lab [id number] within 24 hours of collection time if culture is needed Performed By: #### 0 0121 ####[facility] [facility] [place] [address], [facility] LEUK GA Negative Normal NEGATIVE [facility] Comment on above: Order Comment: No: D o not add to previous drawCriteria for reflexing a culture was not met. Please call the lab [id number] within 24 hours of collection time if culture is needed Performed By: #### 0 0121 ####[facility] [facility] [place] [address], [facility] MICRO NOT DONE negative chemical reactions unless requested in original order Normal [facility] Comment on above: Order Comment: No: D o not add to previous drawCriteria for reflexing a culture was not met. Please call the lab [email or web address] within 24 hours of collection time if culture is needed Performed By: #### 0 0121 ####[facility] [facility] [place] [address], [facility] NITRITE Negative Normal NEGATIVE [facility] Comment on above: Order Comment: No: D o not add to previous drawCriteria for reflexing a culture was not met. Please call the lab [id number] within 24 hours of collection time if culture is needed Performed By: #### 0 0121 ####[facility] [facility] [place] [address], [facility] PH 5.0 Normal 5.0-8.0 [facility] Comment on above: Order Comment: No: D o not add to previous drawCriteria for reflexing a culture was not met. Please call the lab [id number] within 24 hours of collection time if culture is needed Performed By: #### 0 0121 ####[facility] [facility] [place] [address], [facility] Protein mass conc Negative Normal NEGATIVE [facility] Comment on above: Order Comment: No: D o not add to previous drawCriteria for reflexing a culture was not met. Please call the lab [id number] within 24 hours of collection time if culture is needed Performed By: #### 0 0121 ####[facility] [facility] [place] [address], [facility] SPEC GRAV 1.009 Low 1.015-1.020 [facility] Comment on above: Order Comment: No: D o not add to previous drawCriteria for reflexing a culture was not met. Please call the lab [id number] within 24 hours of collection time if culture is needed Performed By: #### 0 0121 ####[facility] [place] [address], [facility] BASIC METABOLIC PANELon 08-3 Calcium mass conc 9.2 mg/dL Normal 8.6-10.3 [facility] Comment on above: Order Comment: No: D o not add to previous drawNo collection time noted on specimen or requisition. The collection timerecorded is the time of receipt in the lab. Performed By: #### 1 0070, 15474, 49362 ####[facility] [facility] [place] [address], [facility] Chloride molar conc 100 mmol/L Normal 98-107 [facility] Comment on above: Order Comment: No: D o not add to previous drawNo collection time noted on specimen or requisition. The collection timerecorded is the time of receipt in the lab. Performed By: #### 1 0070, 34885, 56363 ####[facility] [facility] [place] [address], [facility] CO2 molar conc 26 mmol/L Normal 21-31 [facility] Comment on above: Order Comment: No: D o not add to previous drawNo collection time noted on specimen or requisition. The collection timerecorded is the time of receipt in the lab. Performed By: #### 1 0070, 93281, 14403 ####[facility] [place] [address], [facility] Creatinine mass conc 0.92 mg/dL Normal 0.60-1.20 [facility] Comment on above: Order Comment: No: D o not add to previous drawNo collection time noted on specimen or requisition. The collection timerecorded is the time of receipt in the lab. Performed By: #### 1 0070, 05635, 11000 ####[facility] [facility] [place] [address], [facility] GFR/1.73 sq M predicted among blacks MDRD vol rate/area (S/P/Bld) mL/min/{1.73_m2} Normal >60 [facility] Comment on above: Order Comment: No: D o not add to previous drawNo collection time noted on specimen or requisition. The collection timerecorded is the time of receipt in the lab. Result Comment: Calc ulation may not be valid for patients over 70 years Performed By: #### 1 0070, 06243, 88376 ####[facility] [facility] [place] [address], [facility] GFR/1.73 sq M predicted among non-blacks MDRD vol rate/area (S/P/Bld) 59 ml/min/1.73sq m Abnormal >60 [facility] Comment on above: Order Comment: No: D o not add to previous drawNo collection time noted on specimen or requisition. The collection timerecorded is the time of receipt in the lab. Result Comment: Calc ulation may not be valid for patients over 70 years Performed By: #### 1 0070, 34305, 77795 ####[facility] [facility] [place] [address], [facility] Glucose mass conc 391 mg/dL High 70-100 [facility] Comment on above: Order Comment: No: D o not add to previous drawNo collection time noted on specimen or requisition. The collection timerecorded is the time of receipt in the lab. Performed By: #### 1 0070, 30794, 50204 ####[facility] [facility].[address] Potassium molar conc 5.1 mmol/L Normal 3.5-5.1 [facility] Comment on above: Order Comment: No: D o not add to previous drawNo collection time noted on specimen or requisition. The collection timerecorded is the time of receipt in the lab. Performed By: #### 1 0070, 85297, 08139 ####[facility] [facility].[address] Sodium molar conc 130 mmol/L Low 136-145 [facility] Comment on above: Order Comment: No: D o not add to previous drawNo collection time noted on specimen or requisition. The collection timerecorded is the time of receipt in the lab. Performed By: #### 1 0070, 90324, 10114 ####[facility] [facility].[address] Urea nitrogen mass conc 24 mg/dL Normal 7-25 [facility] Comment on above: Order Comment: No: D o not add to previous drawNo collection time noted on specimen or requisition. The collection timerecorded is the time of receipt in the lab. Performed By: #### 1 0070, 54714, 36720 ####[facility] [facility] [place] [address], [facility] CBC W/DIFFon 07-08-2018 ABS BASOPHILS 0.5 10*3/uL High 0.0-0.2 [facility] Comment on above: Order Comment: No: D o not add to previous drawNo collection time noted on specimen or requisition. The collection timerecorded is the time of receipt in the lab. Performed By: #### 1 0070, 02899, 01984 ####[facility] ABS NEUTROPHILS 12.1 10*3/uL High 1.6-7.6 [facility] Comment on above: Order Comment: No: D o not add to previous drawNo collection time noted on specimen or requisition. The collection timerecorded is the time of receipt in the lab. Performed By: #### 1 0, , 65620 ####[facility] Basophils Auto #/vol (Bld) 2.8 % High 0.0-1.0 [facility] Comment on above: Order Comment: No: D o not add to previous drawNo collection time noted on specimen or requisition. The collection timerecorded is the time of receipt in the lab. Performed By: #### 1 69, , 81813 ####[facility] Eosinophils Auto #/vol (Bld) 0.1 10*3/uL Normal 0.0-0.5 [facility] Comment on above: Order Comment: No: D o not add to previous drawNo collection time noted on specimen or requisition. The collection timerecorded is the time of receipt in the lab. Performed By: #### 1 0, , 98937 ####[facility] Eosinophils/100 WBC Auto (Bld) 0.9 % Normal 0.0-6.0 [facility] Comment on above: Order Comment: No: D o not add to previous drawNo collection time noted on specimen or requisition. The collection timerecorded is the time of receipt in the lab. Performed By: #### 1 0, , 74955 ####[facility] Erythrocyte distribution width Auto Ratio (RBC) 13.7 % Normal 11.5-15.0 [facility] Comment on above: Order Comment: No: D o not add to previous drawNo collection time noted on specimen or requisition. The collection timerecorded is the time of receipt in the lab. Performed By: #### 1 0, 84272, 39085 ####[facility] Hematocrit Auto Volume Fraction (Bld) 30.4 % Low 36.0-45.0 [facility] Comment on above: Order Comment: No: D o not add to previous drawNo collection time noted on specimen or requisition. The collection timerecorded is the time of receipt in the lab. Performed By: #### 1 0, 91384, 19290 ####[address] Hemoglobin mass conc (Bld) 9.7 g/dL Low 12.0-15.0 [facility] Comment on above: Order Comment: No: D o not add to previous drawNo collection time noted on specimen or requisition. The collection timerecorded is the time of receipt in the lab. Performed By: #### 1 0, 82221, 86090 ####[facility] Lymphocytes Auto #/vol (Bld) 1.5 10*3/uL Normal 1.2-4.0 [facility] Comment on above: Order Comment: No: D o not add to previous drawNo collection time noted on specimen or requisition. The collection timerecorded is the time of receipt in the lab. Performed By: #### 1 0, 86932, 89407 ####[facility] [place] [address] Lymphocytes/100 WBC Auto (Bld) 9.2 % Low 20.0-45.0 [facility] Comment on above: Order Comment: No: D o not add to previous drawNo collection time noted on specimen or requisition. The collection timerecorded is the time of receipt in the lab. Performed By: #### 1 0, 75753, 89744 ####[facility] MCH Auto Entitic mass (RBC) 30.7 pg Normal 27.0-33.0 [facility] Comment on above: Order Comment: No: D o not add to previous drawNo collection time noted on specimen or requisition. The collection timerecorded is the time of receipt in the lab. Performed By: #### 1 0, , 52322 ####[facility] MCHC Auto mass conc (RBC) 31.9 g/dL Low 32.0-35.0 [facility] Comment on above: Order Comment: No: D o not add to previous drawNo collection time noted on specimen or requisition. The collection timerecorded is the time of receipt in the lab. Performed By: #### 1 0, , 50287 ####[facility] MCV Auto Entitic volume (RBC) 96.2 fL Normal 82.0-98.0 [facility] Comment on above: Order Comment: No: D o not add to previous drawNo collection time noted on specimen or requisition. The collection timerecorded is the time of receipt in the lab. Performed By: #### 1 0, , 74717 ####[facility] Monocytes Auto #/vol (Bld) 1.9 10*3/uL High 0.1-1.0 [facility] Comment on above: Order Comment: No: D o not add to previous drawNo collection time noted on specimen or requisition. The collection timerecorded is the time of receipt in the lab. Performed By: #### 1 0070, 89422, 37829 ####[facility] [facility] [place] [address], [facility] MONOS 11.9 % Normal 5.0-12.0 [facility] Comment on above: Order Comment: No: D o not add to previous drawNo collection time noted on specimen or requisition. The collection timerecorded is the time of receipt in the lab. Performed By: #### 1 0070, 52545, 27341 ####[facility] [facility].[address] Neutrophils/100 WBC Auto (Bld) 75.2 % High 40.0-72.0 [facility] Comment on above: Order Comment: No: D o not add to previous drawNo collection time noted on specimen or requisition. The collection timerecorded is the time of receipt in the lab. Performed By: #### 1 0070, 41476, 87669 ####[facility] [facility].[address] Nucleated RBC/100 WBC Ratio (Bld) 0 % Normal 0-0 [facility] Comment on above: Order Comment: No: D o not add to previous drawNo collection time noted on specimen or requisition. The collection timerecorded is the time of receipt in the lab. Performed By: #### 1 0070, 92531, 35168 ####[facility] [facility].[address] PLAT CNT 354 10*3/uL Normal 150-400 [facility] Comment on above: Order Comment: No: D o not add to previous drawNo collection time noted on specimen or requisition. The collection timerecorded is the time of receipt in the lab. Performed By: #### 1 0070, 49608, 15845 ####[place] [address] [facility].[address] RBC Auto #/vol (Bld) 3.16 10*6/uL Low 3.80-5.00 [facility] Comment on above: Order Comment: No: D o not add to previous drawNo collection time noted on specimen or requisition. The collection timerecorded is the time of receipt in the lab. Performed By: #### 1 0070, 63983, 39288 ####[facility] [facility].[address] WBC Auto #/vol (Bld) 16.12 10*3/uL High 4.00-10.60 [facility] Comment on above: Order Comment: No: D o not add to previous drawNo collection time noted on specimen or requisition. The collection timerecorded is the time of receipt in the lab. Performed By: #### 1 0070, 52029, 56335 ####[facility] [facility].[address] MAGNESIUM BLOODon 07-08-2018 Magnesium mass conc 2.3 mg/dL Normal 1.9-2.7 [facility] Comment on above: Order Comment: No: D o not add to previous drawNo collection time noted on specimen or requisition. The collection timerecorded is the time of receipt in the lab. Performed By: #### 1 0070, 08198, 97330 ####[facility] [facility] [place] [address], [facility] PHOSPHORUS BLOODon 8 Phosphate mass conc 4.7 mg/dL Normal 2.5-5.0 [facility] Comment on above: Order Comment: No: D o not add to previous drawNo collection time noted on specimen or requisition. The collection timerecorded is the time of receipt in the lab. Performed By: #### 1 0070, 08651, 95363 ####[facility] [facility] [place] [address], [facility] POC GLUCOSE LABon 07-08-2018 Glucose mass conc 115 mg/dL High 70-100 [facility] Comment on above: Performed By: #### 0 0121 ####[facility] [facility] [place] [address], [facility] Glucose mass conc 183 mg/dL High 70-100 [facility] Comment on above: Performed By: #### 0 0121 ####[facility] [facility] [place] [address], [facility] BASIC METABOLIC PANELon -3 Calcium mass conc 9.5 mg/dL Normal 8.6-10.3 [facility] Comment on above: Order Comment: No: D o not add to previous drawNo collection time noted on specimen or requisition. The collection timerecorded is the time of receipt in the lab. Performed By: #### 1 0070, 06233, 99256 ####[facility] [facility] [place] [address], [facility] Chloride molar conc 99 mmol/L Normal 98-107 [facility] Comment on above: Order Comment: No: D o not add to previous drawNo collection time noted on specimen or requisition. The collection timerecorded is the time of receipt in the lab. Performed By: #### 1 0070, 21864, 41042 ####[facility] [facility] [place] [address], [facility] CO2 molar conc 24 mmol/L Normal 21-31 [facility] Comment on above: Order Comment: No: D o not add to previous drawNo collection time noted on specimen or requisition. The collection timerecorded is the time of receipt in the lab. Performed By: #### 1 0070, 81600, 71389 ####[facility] [facility] [place] [address], [facility] Creatinine mass conc 0.90 mg/dL Normal 0.60-1.20 [facility] Comment on above: Order Comment: No: D o not add to previous drawNo collection time noted on specimen or requisition. The collection timerecorded is the time of receipt in the lab. Performed By: #### 1 0070, 89506, 03809 ####[facility] [facility] [place] [address], [facility] GFR/1.73 sq M predicted among blacks MDRD vol rate/area (S/P/Bld) mL/min/{1.73_m2} Normal >60 [facility] Comment on above: Order Comment: No: D o not add to previous drawNo collection time noted on specimen or requisition. The collection timerecorded is the time of receipt in the lab. Result Comment: Calc ulation may not be valid for patients over 70 years Performed By: #### 1 0070, 82866, 78287 ####[facility] [facility] [place] [address], [facility] GFR/1.73 sq M predicted among non-blacks MDRD vol rate/area (S/P/Bld) mL/min/{1.73_m2} Normal >60 [facility] Comment on above: Order Comment: No: D o not add to previous drawNo collection time noted on specimen or requisition. The collection timerecorded is the time of receipt in the lab. Result Comment: Calc ulation may not be valid for patients over 70 years Performed By: #### 1 0070, 36309, 13151 ####[facility] [facility] [place] [address], [facility] Glucose mass conc 207 mg/dL High 70-100 [facility] Comment on above: Order Comment: No: D o not add to previous drawNo collection time noted on specimen or requisition. The collection timerecorded is the time of receipt in the lab. Performed By: #### 1 0070, 51683, 11084 ####[facility] [facility] [place] [address], [facility] Potassium molar conc 4.4 mmol/L Normal 3.5-5.1 [facility] Comment on above: Order Comment: No: D o not add to previous drawNo collection time noted on specimen or requisition. The collection timerecorded is the time of receipt in the lab. Performed By: #### 1 0070, 95026, 03087 ####[facility] [facility].[address] Sodium molar conc 131 mmol/L Low 136-145 [facility] Comment on above: Order Comment: No: D o not add to previous drawNo collection time noted on specimen or requisition. The collection timerecorded is the time of receipt in the lab. Performed By: #### 1 0, 73376, 06743 ####[facility] [facility].[address] Urea nitrogen mass conc 19 mg/dL Normal 7-25 [facility] Comment on above: Order Comment: No: D o not add to previous drawNo collection time noted on specimen or requisition. The collection timerecorded is the time of receipt in the lab. Performed By: #### 1 0, 53232, 51177 ####[place] [id number] [address] CALCIUM IONIZED CBGLon 07-07 IONIZED CALCIUM 1.42 mmol/L High 1.12-1.30 [facility] Comment on above: Performed By: #### 1 0, 52710, 34426 ####[facility] CBC W/DIFFon 07-07-2018 ABS BASOPHILS 0.0 10*3/uL Normal 0.0-0.2 [facility] Comment on above: Order Comment: No: D o not add to previous drawNo collection time noted on specimen or requisition. The collection timerecorded is the time of receipt in the lab. Performed By: #### 1 0, 06392, 66540 ####[facility]3000 [facility].[address] ABS NEUTROPHILS 12.3 10*3/uL High 1.6-7.6 [facility] Comment on above: Order Comment: No: D o not add to previous drawNo collection time noted on specimen or requisition. The collection timerecorded is the time of receipt in the lab. Performed By: #### 1 0070, 94126, 61842 ####[facility]3000 [facility].[address] Basophils Auto #/vol (Bld) 0.0 % Normal 0.0-1.0 [facility] Comment on above: Order Comment: No: D o not add to previous drawNo collection time noted on specimen or requisition. The collection timerecorded is the time of receipt in the lab. Performed By: #### 1 69, , 43898 ####[facility] Eosinophils Auto #/vol (Bld) 1.1 10*3/uL High 0.0-0.5 [facility] Comment on above: Order Comment: No: D o not add to previous drawNo collection time noted on specimen or requisition. The collection timerecorded is the time of receipt in the lab. Performed By: #### 1 69, , 24986 ####[facility] Eosinophils/100 WBC Auto (Bld) 6.4 % High 0.0-6.0 [facility] Comment on above: Order Comment: No: D o not add to previous drawNo collection time noted on specimen or requisition. The collection timerecorded is the time of receipt in the lab. Performed By: #### 1 69, , 01443 ####[facility]3000 [facility].[address] Erythrocyte distribution width Auto Ratio (RBC) 13.6 % Normal 11.5-15.0 [facility] Comment on above: Order Comment: No: D o not add to previous drawNo collection time noted on specimen or requisition. The collection timerecorded is the time of receipt in the lab. Performed By: #### 1 0, , 74848 ####[facility] [place] [address] GIANT PLATELETS Present Normal [facility] Comment on above: Order Comment: No: D o not add to previous drawNo collection time noted on specimen or requisition. The collection timerecorded is the time of receipt in the lab. Performed By: #### 1 0, 52604, 60037 ####[facility] Hematocrit Auto Volume Fraction (Bld) 31.8 % Low 36.0-45.0 [facility] Comment on above: Order Comment: No: D o not add to previous drawNo collection time noted on specimen or requisition. The collection timerecorded is the time of receipt in the lab. Performed By: #### 1 0070, 82003, 37642 ####[facility] Hemoglobin mass conc (Bld) 10.1 g/dL Low 12.0-15.0 [facility] Comment on above: Order Comment: No: D o not add to previous drawNo collection time noted on specimen or requisition. The collection timerecorded is the time of receipt in the lab. Performed By: #### 1 0070, 07729, 40021 ####[facility] Lymphocytes Auto #/vol (Bld) 2.7 10*3/uL Normal 1.2-4.0 [facility] Comment on above: Order Comment: No: D o not add to previous drawNo collection time noted on specimen or requisition. The collection timerecorded is the time of receipt in the lab. Performed By: #### 1 0070, 73932, 29602 ####[facility] Lymphocytes/100 WBC Auto (Bld) 15.4 % Low 20.0-45.0 [facility] Comment on above: Order Comment: No: D o not add to previous drawNo collection time noted on specimen or requisition. The collection timerecorded is the time of receipt in the lab. Performed By: #### 1 0, , 75393 ####[facility] MCH Auto Entitic mass (RBC) 31.3 pg Normal 27.0-33.0 [facility] Comment on above: Order Comment: No: D o not add to previous drawNo collection time noted on specimen or requisition. The collection timerecorded is the time of receipt in the lab. Performed By: #### 1 0, , 96881 ####[facility]3000 [facility].[address] MCHC Auto mass conc (RBC) 31.8 g/dL Low 32.0-35.0 [facility] Comment on above: Order Comment: No: D o not add to previous drawNo collection time noted on specimen or requisition. The collection timerecorded is the time of receipt in the lab. Performed By: #### 1 0, , 03589 ####[facility] MCV Auto Entitic volume (RBC) 98.5 fL High 82.0-98.0 [facility] Comment on above: Order Comment: No: D o not add to previous drawNo collection time noted on specimen or requisition. The collection timerecorded is the time of receipt in the lab. Performed By: #### 1 0, , 54909 ####[facility] METAMYELO 0.9 % High 0.0-0.0 [facility] Comment on above: Order Comment: No: D o not add to previous drawNo collection time noted on specimen or requisition. The collection timerecorded is the time of receipt in the lab. Performed By: #### 1 0, 72592, 54323 ####[facility] [place] [address], [facility] Monocytes Auto #/vol (Bld) 1.0 10*3/uL Normal 0.1-1.0 [facility] Comment on above: Order Comment: No: D o not add to previous drawNo collection time noted on specimen or requisition. The collection timerecorded is the time of receipt in the lab. Performed By: #### 1 0070, 45947, 94969 ####[facility] [place] [address], [facility] MONOS 5.5 % Normal 5.0-12.0 [facility] Comment on above: Order Comment: No: D o not add to previous drawNo collection time noted on specimen or requisition. The collection timerecorded is the time of receipt in the lab. Performed By: #### 1 0070, 77647, 44141 ####[place] [address] [address] MYELOS 0.9 % High .0-.0 [facility] Comment on above: Order Comment: No: D o not add to previous drawNo collection time noted on specimen or requisition. The collection timerecorded is the time of receipt in the lab. Performed By: #### 1 0070, 93564, 14255 ####[facility] Neutrophils/100 WBC Auto (Bld) 70.9 % Normal 40.0-72.0 [facility] Comment on above: Order Comment: No: D o not add to previous drawNo collection time noted on specimen or requisition. The collection timerecorded is the time of receipt in the lab. Performed By: #### 1 0070, 79900, 36385 ####[facility] Nucleated RBC/100 WBC Ratio (Bld) 0 % Normal 0-0 [facility] Comment on above: Order Comment: No: D o not add to previous drawNo collection time noted on specimen or requisition. The collection timerecorded is the time of receipt in the lab. Performed By: #### 1 0070, 19618, 73072 ####[facility]3000 [facility].[address] PLAT CNT 382 10*3/uL Normal 150-400 [facility] Comment on above: Order Comment: No: D o not add to previous drawNo collection time noted on specimen or requisition. The collection timerecorded is the time of receipt in the lab. Performed By: #### 1 0070, 47879, 08705 ####[facility]3000 [facility].[address] RBC Auto #/vol (Bld) 3.23 10*6/uL Low 3.80-5.00 [facility] Comment on above: Order Comment: No: D o not add to previous drawNo collection time noted on specimen or requisition. The collection timerecorded is the time of receipt in the lab. Performed By: #### 1 0070, 83605, 71039 ####[facility]3000 [facility].[address] WBC Auto #/vol (Bld) 17.29 10*3/uL High 4.00-10.60 [facility] Comment on above: Order Comment: No: D o not add to previous drawNo collection time noted on specimen or requisition. The collection timerecorded is the time of receipt in the lab. Performed By: #### 1 0070, 86101, 11854 ####[facility]3000 [facility].[address] LIVER BATTERYon 07-07-2018 Albumin mass conc 3.0 g/dL Low 3.5-5.7 [facility] Comment on above: Order Comment: No: D o not add to previous drawNo collection time noted on specimen or requisition. The collection timerecorded is the time of receipt in the lab. Performed By: #### 1 0070, 91947, 28420 ####[facility]3000 [facility] [place] [address], [facility] ALKALINE PHOSPH 99 IU/L Normal 34-104 [facility] Comment on above: Order Comment: No: D o not add to previous drawNo collection time noted on specimen or requisition. The collection timerecorded is the time of receipt in the lab. Performed By: #### 1 0070, 41490, 14038 ####[facility]3000 [facility] [place] [address], [facility] ALT enzyme act/vol 21 U/L Normal 7-52 [facility] Comment on above: Order Comment: No: D o not add to previous drawNo collection time noted on specimen or requisition. The collection timerecorded is the time of receipt in the lab. Performed By: #### 1 0070, 81544, 18933 ####[facility] AST enzyme act/vol 23 U/L Normal 13-39 [facility] Comment on above: Order Comment: No: D o not add to previous drawNo collection time noted on specimen or requisition. The collection timerecorded is the time of receipt in the lab. Performed By: #### 1 0070, 84248, 07109 ####[facility] Bilirubin mass conc 0.5 mg/dL Normal 0.3-1.0 [facility] Comment on above: Order Comment: No: D o not add to previous drawNo collection time noted on specimen or requisition. The collection timerecorded is the time of receipt in the lab. Performed By: #### 1 0070, 41018, 52003 ####[facility] [place] [address], [facility] Bilirubin.direct mass conc 0.3 mg/dL High 0.0-0.2 [facility] Comment on above: Order Comment: No: D o not add to previous drawNo collection time noted on specimen or requisition. The collection timerecorded is the time of receipt in the lab. Performed By: #### 1 0070, 38908, 57725 ####[facility] [place] [address], [facility] Protein mass conc 6.5 g/dL Normal 6.0-8.3 [facility] Comment on above: Order Comment: No: D o not add to previous drawNo collection time noted on specimen or requisition. The collection timerecorded is the time of receipt in the lab. Performed By: #### 1 0070, 53270, 82633 ####[facility] [place] [address], [facility] MAGNESIUM BLOODon 07-07-2018 Magnesium mass conc 1.6 mg/dL Low 1.9-2.7 [facility] Comment on above: Order Comment: No: D o not add to previous drawNo collection time noted on specimen or requisition. The collection timerecorded is the time of receipt in the lab. Performed By: #### 1 0070, 89783, 88083 ####[facility]3000 [facility] [place] [address], [facility] PHOSPHORUS BLOODon 8 Phosphate mass conc 3.4 mg/dL Normal 2.5-5.0 [facility] Comment on above: Order Comment: No: D o not add to previous drawNo collection time noted on specimen or requisition. The collection timerecorded is the time of receipt in the lab. Performed By: #### 1 0070, , 59098 ####[facility] [facility] [place] [address], [facility] POC GLUCOSE LABon 07-07-2018 Glucose mass conc 157 mg/dL High 70-100 [facility] Comment on above: Performed By: #### 1 0070, 97304, 62495 ####[facility] [place] [address], [facility] Glucose mass conc 196 mg/dL High 70-100 [facility] Comment on above: Performed By: #### 1 0070, 91662, 92948 ####[facility] [place] [address], [place] Glucose mass conc 190 mg/dL High 70-100 [facility] Comment on above: Performed By: #### 1 0070, 55678, 00255 ####[facility] [place] [address], [place] Glucose mass conc 189 mg/dL High 70-100 [facility] Comment on above: Performed By: #### 1 0070, 39848, 95325 ####[facility] [place] [address], [place] BASIC METABOLIC PANELon 06-09 Calcium mass conc 9.3 mg/dL Normal 8.6-10.3 [facility] Comment on above: Order Comment: No: D o not add to previous draw Performed By: #### 8 5499 ####[facility] [place] [address], [place] Chloride molar conc 100 mmol/L Normal 98-107 [facility] Comment on above: Order Comment: No: D o not add to previous draw Performed By: #### 8 5499 ####[facility] [place] [address], [place] CO2 molar conc 25 mmol/L Normal 21-31 [facility] Comment on above: Order Comment: No: D o not add to previous draw Performed By: #### 8 5499 ####[facility] [place] [address], [place] Creatinine mass conc 0.97 mg/dL Normal 0.60-1.20 [facility] Comment on above: Order Comment: No: D o not add to previous draw Performed By: #### 8 5499 ####[facility] [place] [address], [place] GFR/1.73 sq M predicted among blacks MDRD vol rate/area (S/P/Bld) mL/min/{1.73_m2} Normal >60 [facility] Comment on above: Order Comment: No: D o not add to previous draw Result Comment: Calc ulation may not be valid for patients over 70 years Performed By: #### 8 5499 ####[facility] [place] [address], [facility] GFR/1.73 sq M predicted among non-blacks MDRD vol rate/area (S/P/Bld) 56 ml/min/1.73sq m Abnormal >60 [facility] Comment on above: Order Comment: No: D o not add to previous draw Result Comment: Calc ulation may not be valid for patients over 70 years Performed By: #### 8 5499 ####[facility] [address], [facility] Glucose mass conc 213 mg/dL High 70-100 [facility] Comment on above: Order Comment: No: D o not add to previous draw Performed By: #### 8 5499 ####[facility] [place] [address], [place] Potassium molar conc 4.1 mmol/L Normal 3.5-5.1 [facility] Comment on above: Order Comment: No: D o not add to previous draw Performed By: #### 8 5499 ####[facility] [place] [address], [place] Sodium molar conc 132 mmol/L Low 136-145 [facility] Comment on above: Order Comment: No: D o not add to previous draw Performed By: #### 8 5499 ####[facility] [place] [address], [place] Urea nitrogen mass conc 19 mg/dL Normal 7-25 [facility] Comment on above: Order Comment: No: D o not add to previous draw Performed By: #### 8 5499 ####[facility] [place] [address], [facility] MAGNESIUM BLOODon 07-06-2018 Magnesium mass conc 1.8 mg/dL Low 1.9-2.7 [facility] Comment on above: Order Comment: No: D o not add to previous drawNo collection time noted on specimen or requisition. The collection timerecorded is the time of receipt in the lab. Performed By: #### 1 0070, 96539, 46929 ####[facility]3000 [facility] [place] [address], [facility] PHOSPHORUS BLOODon 8 Phosphate mass conc 3.8 mg/dL Normal 2.5-5.0 [facility] Comment on above: Order Comment: No: D o not add to previous drawNo collection time noted on specimen or requisition. The collection timerecorded is the time of receipt in the lab. Performed By: #### 1 0070, 44675, 40258 ####[facility] [facility] [place] [address], [facility] POC GLUCOSE LABon 07-06-2018 Glucose mass conc 217 mg/dL High 70-100 [facility] Comment on above: Performed By: #### 1 0070, 51496, 00606 ####[facility] [place] [address], [facility] Glucose mass conc 197 mg/dL High 70-100 [facility] Comment on above: Performed By: #### 1 0070, 32169, 33248 ####[facility] [place] [address], [facility] Glucose mass conc 160 mg/dL High 70-100 [facility] Comment on above: Performed By: #### 8 5499 ####[facility] [facility] [place] [address], [facility] TRIGLYCERIDES BLOODon 2017 Triglyceride mass conc 256 mg/dL High 40-149 [facility] Comment on above: Order Comment: No: D o not add to previous draw Result Comment: TRIG LYCERIDE REFERENCE RANGE:20 YEARS AND OLDER CARDIOVASCULAR RISKLESS THAN 150 mg/dl LOW [id number] TO 199 mg/dl BORDERLINE [id number] mg/dl AND GREATER HIGH RISK Performed By: #### 8 5499 ####[facility] [place] [address], [facility] BASIC METABOLIC PANELon - Calcium mass conc 8.7 mg/dL Normal 8.6-10.3 [facility] Comment on above: Order Comment: No: D o not add to previous draw Performed By: #### 8 5499 ####[facility] [place] [address], [facility] Chloride molar conc 105 mmol/L Normal 98-107 [facility] Comment on above: Order Comment: No: D o not add to previous draw Performed By: #### 8 5499 ####[facility] [place] [address], [facility] CO2 molar conc 24 mmol/L Normal 21-31 [facility] Comment on above: Order Comment: No: D o not add to previous draw Performed By: #### 8 5499 ####[facility] [facility] [place] [address], [facility] Creatinine mass conc 1.05 mg/dL Normal 0.60-1.20 [facility] Comment on above: Order Comment: No: D o not add to previous draw Performed By: #### 8 5499 ####[facility] [place] [address], [facility] GFR/1.73 sq M predicted among blacks MDRD vol rate/area (S/P/Bld) mL/min/{1.73_m2} Normal >60 [facility] Comment on above: Order Comment: No: D o not add to previous draw Result Comment: Calc ulation may not be valid for patients over 70 years Performed By: #### 8 5499 ####[facility] [place] [address], [facility] GFR/1.73 sq M predicted among non-blacks MDRD vol rate/area (S/P/Bld) 50 ml/min/1.73sq m Abnormal >60 [facility] Comment on above: Order Comment: No: D o not add to previous draw Result Comment: Calc ulation may not be valid for patients over 70 years Performed By: #### 8 5499 ####[facility] [place] [address], [facility] Glucose mass conc 185 mg/dL High 70-100 [facility] Comment on above: Order Comment: No: D o not add to previous draw Performed By: #### 8 5499 ####[facility] [place] [address], [facility] Potassium molar conc 3.8 mmol/L Normal 3.5-5.1 [facility] Comment on above: Order Comment: No: D o not add to previous draw Performed By: #### 8 5499 ####[facility] [place] [address], [facility] Sodium molar conc 138 mmol/L Normal 136-145 [facility] Comment on above: Order Comment: No: D o not add to previous draw Performed By: #### 8 5499 ####[facility] [place] [address], [facility] Urea nitrogen mass conc 18 mg/dL Normal 7-25 [facility] Comment on above: Order Comment: No: D o not add to previous draw Performed By: #### 8 5499 ####[facility] [place] [address], [facility] CBC W/DIFFon 07-05-2018 ABS BASOPHILS 0.0 10*3/uL Normal 0.0-0.2 [facility] Comment on above: Order Comment: No: D o not add to previous draw Performed By: #### 8 5499 ####[facility] [place] [address], [facility] ABS NEUTROPHILS 9.5 10*3/uL High 1.6-7.6 [facility] Comment on above: Order Comment: No: D o not add to previous draw Performed By: #### 8 5499 ####[facility] [facility] [place] [address], [facility] Basophils Auto #/vol (Bld) 0.0 % Normal 0.0-1.0 [facility] Comment on above: Order Comment: No: D o not add to previous draw Performed By: #### 8 5499 ####[facility] [place] [address], [facility] Eosinophils Auto #/vol (Bld) 0.2 10*3/uL Normal 0.0-0.5 [facility] Comment on above: Order Comment: No: D o not add to previous draw Performed By: #### 8 5499 ####[facility]3000 [facility].[address] Eosinophils/100 WBC Auto (Bld) 1.8 % Normal 0.0-6.0 [facility] Comment on above: Order Comment: No: D o not add to previous draw Performed By: #### 8 5499 ####[facility] Erythrocyte distribution width Auto Ratio (RBC) 13.8 % Normal 11.5-15.0 [facility] Comment on above: Order Comment: No: D o not add to previous draw Performed By: #### 8 5499 ####[facility] Hematocrit Auto Volume Fraction (Bld) 28.7 % Low 36.0-45.0 [facility] Comment on above: Order Comment: No: D o not add to previous draw Performed By: #### 8 5499 ####[facility]3000 [facility] Hemoglobin mass conc (Bld) 8.9 g/dL Low 12.0-15.0 [facility] Comment on above: Order Comment: No: D o not add to previous draw Performed By: #### 8 [id number] ####[facility] Lymphocytes Auto #/vol (Bld) 1.3 10*3/uL Normal 1.2-4.0 [facility] Comment on above: Order Comment: No: D o not add to previous draw Performed By: #### 8 [id number] ####[facility] Lymphocytes/100 WBC Auto (Bld) 10.9 % Low 20.0-45.0 [facility] Comment on above: Order Comment: No: D o not add to previous draw Performed By: #### 8 [id number] ####[facility] MCH Auto Entitic mass (RBC) 30.5 pg Normal 27.0-33.0 [facility] Comment on above: Order Comment: No: D o not add to previous draw Performed By: #### 8 [id number] ####[facility] MCHC Auto mass conc (RBC) 31.0 g/dL Low 32.0-35.0 [facility] Comment on above: Order Comment: No: D o not add to previous draw Performed By: #### 8 [id number] ####[facility] MCV Auto Entitic volume (RBC) 98.3 fL High 82.0-98.0 [facility] Comment on above: Order Comment: No: D o not add to previous draw Performed By: #### 8 [id number] ####[facility] [place] [address], [place] METAMYELO 0.9 % High 0.0-0.0 [facility] Comment on above: Order Comment: No: D o not add to previous draw Performed By: #### 8 [id number] ####[facility] [facility] [place] [address], [facility] Monocytes Auto #/vol (Bld) 0.8 10*3/uL Normal 0.1-1.0 [facility] Comment on above: Order Comment: No: D o not add to previous draw Performed By: #### 8 [id number] ####[facility]3000 [facility] [place] [address], [facility] MONOS 6.4 % Normal 5.0-12.0 [facility] Comment on above: Order Comment: No: D o not add to previous draw Performed By: #### 8 [id number] ####[facility]3000 [facility].[address] MYELOS 0.9 % High .0-.0 [facility] Comment on above: Order Comment: No: D o not add to previous draw Performed By: #### 8 [id number] ####[facility]3000 [facility] [place] [address], [facility] Neutrophils/100 WBC Auto (Bld) 79.1 % High 40.0-72.0 [facility] Comment on above: Order Comment: No: D o not add to previous draw Performed By: #### 8 [id number] ####[facility] [facility] [place] [address], [facility] Nucleated RBC/100 WBC Ratio (Bld) 0 % Normal 0-0 [facility] Comment on above: Order Comment: No: D o not add to previous draw Performed By: #### 8 [id number] ####[facility]3000 [facility] [place] [address], [facility] PLAT CNT 284 10*3/uL Normal 150-400 [facility] Comment on above: Order Comment: No: D o not add to previous draw Performed By: #### 8 [id number] ####[facility] [address], [facility] RBC Auto #/vol (Bld) 2.92 10*6/uL Low 3.80-5.00 [facility] Comment on above: Order Comment: No: D o not add to previous draw Performed By: #### 8 [id number] ####[facility] [place] [place] [address], [facility] WBC Auto #/vol (Bld) 12.05 10*3/uL High 4.00-10.60 [facility] Comment on above: Order Comment: No: D o not add to previous draw Performed By: #### 8 [id number] ####[facility]3000 [facility] [place] [address], [facility] MAGNESIUM BLOODon 07-05-2018 Magnesium mass conc 1.8 mg/dL Low 1.9-2.7 [facility] Comment on above: Order Comment: No: D o not add to previous draw Performed By: #### 8 [id number] ####[facility] [facility] [place] [address], [facility] PHOSPHORUS BLOODon 8 Phosphate mass conc 3.4 mg/dL Normal 2.5-5.0 [facility] Comment on above: Order Comment: No: D o not add to previous draw Performed By: #### 8 [id number] ####[facility] [address], [facility] POC GLUCOSE LABon 07-05-2018 Glucose mass conc 162 mg/dL High 70-100 [facility] Comment on above: Performed By: #### 8 [id number] ####[facility] [address], [facility] Glucose mass conc 198 mg/dL High 70-100 [facility] Comment on above: Performed By: #### 8 [id number] ####[facility] [place] [address], [facility] TRIGLYCERIDES BLOODon 2017 Triglyceride mass conc 204 mg/dL High 40-149 [facility] Comment on above: Order Comment: No: D o not add to previous draw Result Comment: TRIG LYCERIDE REFERENCE RANGE:20 YEARS AND OLDER CARDIOVASCULAR RISKLESS THAN 150 mg/dl LOW [id number] TO 199 mg/dl BORDERLINE [id number] mg/dl AND GREATER HIGH RISK Performed By: #### 8 [id number] ####[facility] [place] [address], [facility] BASIC METABOLIC PANELon 06-09 Calcium mass conc 8.8 mg/dL Normal 8.6-10.3 [facility] Comment on above: Order Comment: No: D o not add to previous draw Performed By: #### 8 [id number] ####[facility] [facility] [place] [address], [facility] Chloride molar conc 105 mmol/L Normal 98-107 [facility] Comment on above: Order Comment: No: D o not add to previous draw Performed By: #### 8 [id number] ####[facility] [facility] [address], [facility] CO2 molar conc 22 mmol/L Normal 21-31 [facility] Comment on above: Order Comment: No: D o not add to previous draw Performed By: #### 8 [id number] ####[facility] [place] [address], [facility] Creatinine mass conc 1.07 mg/dL Normal 0.60-1.20 [facility] Comment on above: Order Comment: No: D o not add to previous draw Performed By: #### 8 [id number] ####[facility] [place] [address], [place] GFR/1.73 sq M predicted among blacks MDRD vol rate/area (S/P/Bld) mL/min/{1.73_m2} Normal >60 [facility] Comment on above: Order Comment: No: D o not add to previous draw Result Comment: Calc ulation may not be valid for patients over 70 years Performed By: #### 8 [id number] ####[facility] [place] [address], [facility] GFR/1.73 sq M predicted among non-blacks MDRD vol rate/area (S/P/Bld) 50 ml/min/1.73sq m Abnormal >60 [facility] Comment on above: Order Comment: No: D o not add to previous draw Result Comment: Calc ulation may not be valid for patients over 70 years Performed By: #### 8 [id number] ####[facility] [place] [address], [facility] Glucose mass conc 188 mg/dL High 70-100 [facility] Comment on above: Order Comment: No: D o not add to previous draw Performed By: #### 8 [id number] ####[facility] [place] [address], [facility] Potassium molar conc 3.7 mmol/L Normal 3.5-5.1 [facility] Comment on above: Order Comment: No: D o not add to previous draw Performed By: #### 8 [id number] ####[facility] [place] [address], [place] Sodium molar conc 136 mmol/L Normal 136-145 [facility] Comment on above: Order Comment: No: D o not add to previous draw Performed By: #### 8 [id number] ####[facility] [address], [facility] Urea nitrogen mass conc 14 mg/dL Normal 7-25 [facility] Comment on above: Order Comment: No: D o not add to previous draw Performed By: #### 8 [id number] ####[facility] [place] [address], [place] CBC W/DIFFon 07-04-2018 ABS BASOPHILS 0.0 10*3/uL Normal 0.0-0.2 [facility] Comment on above: Performed By: #### 8 [id number] ####[facility]3000 [facility].[address] ABS NEUTROPHILS 9.7 10*3/uL High 1.6-7.6 [facility] Comment on above: Performed By: #### 8 [id number] ####[facility]3000 [facility] Basophils Auto #/vol (Bld) 0.0 % Normal 0.0-1.0 [facility] Comment on above: Performed By: #### 8 [id number] ####[facility]3000 [facility].[address] Eosinophils Auto #/vol (Bld) 0.2 10*3/uL Normal 0.0-0.5 [facility] Comment on above: Performed By: #### 8 [id number] ####[facility]3000 [facility].[address] Eosinophils/100 WBC Auto (Bld) 1.8 % Normal 0.0-6.0 [facility] Comment on above: Performed By: #### 8 [id number] ####[facility]3000 [facility].[address] Erythrocyte distribution width Auto Ratio (RBC) 13.7 % Normal 11.5-15.0 [facility] Comment on above: Performed By: #### 8 [id number] ####[facility]3000 [facility].[address] GIANT PLATELETS Present Normal [facility] Comment on above: Performed By: #### 8 [id number] ####[facility]3000 [facility].[address] Hematocrit Auto Volume Fraction (Bld) 31.4 % Low 36.0-45.0 [facility] Comment on above: Performed By: #### 8 [id number] ####[facility]3000 [facility].[address] Hemoglobin mass conc (Bld) 10.0 g/dL Low 12.0-15.0 [facility] Comment on above: Performed By: #### 8 [id number] ####[facility]3000 [facility].[address] Lymphocytes Auto #/vol (Bld) 1.5 10*3/uL Normal 1.2-4.0 [facility] Comment on above: Performed By: #### 8 [id number] ####[address] Lymphocytes/100 WBC Auto (Bld) 11.8 % Low 20.0-45.0 [facility] Comment on above: Performed By: #### 8 [id number] ####[facility] MCH Auto Entitic mass (RBC) 30.8 pg Normal 27.0-33.0 [facility] Comment on above: Performed By: #### 8 [id number] ####[facility] MCHC Auto mass conc (RBC) 31.8 g/dL Low 32.0-35.0 [facility] Comment on above: Performed By: #### 8 [id number] ####[facility] MCV Auto Entitic volume (RBC) 96.6 fL Normal 82.0-98.0 [facility] Comment on above: Performed By: #### 8 5499 ####[facility] [place] [address] METAMYELO 0.9 % High 0.0-0.0 [facility] Comment on above: Performed By: #### 8 [id number] ####[facility] Monocytes Auto #/vol (Bld) 1.0 10*3/uL Normal 0.1-1.0 [facility] Comment on above: Performed By: #### 8 [id number] ####[facility]3000 [facility].[address] MONOS 8.2 % Normal 5.0-12.0 [facility] Comment on above: Performed By: #### 8 5499 ####[facility] Neutrophils/100 WBC Auto (Bld) 77.3 % High 40.0-72.0 [facility] Comment on above: Performed By: #### 8 [id number] ####[facility] NRBC SCAN Present Normal [facility] Comment on above: Performed By: #### 8 [id number] ####[facility] Nucleated RBC/100 WBC Ratio (Bld) 0 % Normal 0-0 [facility] Comment on above: Performed By: #### 8 [id number] ####[facility]3000 [facility].[address] PLAT CNT 300 10*3/uL Normal 150-400 [facility] Comment on above: Performed By: #### 8 5499 ####[facility] RBC Auto #/vol (Bld) 3.25 10*6/uL Low 3.80-5.00 [facility] Comment on above: Performed By: #### 8 [id number] ####[facility] [facility] [place] [address], [facility] WBC Auto #/vol (Bld) 12.52 10*3/uL High 4.00-10.60 [facility] Comment on above: Performed By: #### 8 [id number] ####[facility] [place] [address], [facility] MAGNESIUM BLOODon 07-04-2018 Magnesium mass conc 1.9 mg/dL Normal 1.9-2.7 [facility] Comment on above: Order Comment: No: D o not add to previous draw Performed By: #### 8 [id number] ####[facility] [place] [address], [facility] PHOSPHORUS BLOODon 8 Phosphate mass conc 2.8 mg/dL Normal 2.5-5.0 [facility] Comment on above: Order Comment: No: D o not add to previous draw Performed By: #### 8 [id number] ####[facility] [place] [address], [facility] POC GLUCOSE LABon 07-04-2018 Glucose mass conc 161 mg/dL High 70-100 [facility] Comment on above: Performed By: #### 8 [id number] ####[facility] [facility] [place] [address], [place] Glucose mass conc 169 mg/dL High 70-100 [facility] Comment on above: Performed By: #### 8 [id number] ####[facility] [place] [address], [place] Glucose mass conc 222 mg/dL High 70-100 [facility] Comment on above: Performed By: #### 8 [id number] ####[facility] [place] [address], [place] Glucose mass conc 186 mg/dL High 70-100 [facility] Comment on above: Performed By: #### 8 [id number] ####[facility] [place] [address], [facility] Glucose mass conc 153 mg/dL High 70-100 [facility] Comment on above: Performed By: #### 8 [id number] ####[facility] [place] [address], [facility] BASIC METABOLIC PANELon 08-2 Calcium mass conc 8.1 mg/dL Low 8.6-10.3 [facility] Comment on above: Order Comment: No: D o not add to previous draw Performed By: #### 8 [id number] ####[facility] [place] [address], [facility] Chloride molar conc 104 mmol/L Normal 98-107 [facility] Comment on above: Order Comment: No: D o not add to previous draw Performed By: #### 8 [id number] ####[facility] [place] [address], [facility] CO2 molar conc 21 mmol/L Normal 21-31 [facility] Comment on above: Order Comment: No: D o not add to previous draw Performed By: #### 8 [id number] ####[facility] [place] [address], [facility] Creatinine mass conc 1.12 mg/dL Normal 0.60-1.20 [facility] Comment on above: Order Comment: No: D o not add to previous draw Performed By: #### 8 [id number] ####[facility] [place] [address], [place] GFR/1.73 sq M predicted among blacks MDRD vol rate/area (S/P/Bld) 57 ml/min/1.73sq m Abnormal >60 [facility] Comment on above: Order Comment: No: D o not add to previous draw Result Comment: Calc ulation may not be valid for patients over 70 years Performed By: #### 8 [id number] ####[facility] [place] [address], [facility] GFR/1.73 sq M predicted among non-blacks MDRD vol rate/area (S/P/Bld) 47 ml/min/1.73sq m Abnormal >60 [facility] Comment on above: Order Comment: No: D o not add to previous draw Result Comment: Calc ulation may not be valid for patients over 70 years Performed By: #### 8 [id number] ####[facility] [place] [address], [facility] Glucose mass conc 246 mg/dL High 70-100 [facility] Comment on above: Order Comment: No: D o not add to previous draw Performed By: #### 8 [id number] ####[facility] [place] [address], [facility] Potassium molar conc 4.4 mmol/L Normal 3.5-5.1 [facility] Comment on above: Order Comment: No: D o not add to previous draw Performed By: #### 8 [id number] ####[facility] [place] [address], [facility] Sodium molar conc 132 mmol/L Low 136-145 [facility] Comment on above: Order Comment: No: D o not add to previous draw Performed By: #### 8 [id number] ####[facility] [facility] [place] [address], [facility] Urea nitrogen mass conc 10 mg/dL Normal 7-25 [facility] Comment on above: Order Comment: No: D o not add to previous draw Performed By: #### 8 [id number] ####[facility] [place] [address], [facility] CBC COMPLETE BLOOD COUNTon 0 07-03-2018 Erythrocyte distribution width Auto Ratio (RBC) 13.7 % Normal 11.5-15.0 [facility] Comment on above: Order Comment: No: D o not add to previous draw Performed By: #### 8 [id number] ####[facility] Hematocrit Auto Volume Fraction (Bld) 36.3 % Normal 36.0-45.0 [facility] Comment on above: Order Comment: No: D o not add to previous draw Performed By: #### 8 [id number] ####[facility] Hemoglobin mass conc (Bld) 11.3 g/dL Low 12.0-15.0 [facility] Comment on above: Order Comment: No: D o not add to previous draw Performed By: #### 8 [id number] ####[facility] MCH Auto Entitic mass (RBC) 30.5 pg Normal 27.0-33.0 [facility] Comment on above: Order Comment: No: D o not add to previous draw Performed By: #### 8 [id number] ####[facility] MCHC Auto mass conc (RBC) 31.1 g/dL Low 32.0-35.0 [facility] Comment on above: Order Comment: No: D o not add to previous draw Performed By: #### 8 [id number] ####[facility] [facility] MCV Auto Entitic volume (RBC) 97.8 fL Normal 82.0-98.0 [facility] Comment on above: Order Comment: No: D o not add to previous draw Performed By: #### 8 [id number] ####[facility] [facility].[address] Nucleated RBC/100 WBC Ratio (Bld) 0 % Normal 0-0 [facility] Comment on above: Order Comment: No: D o not add to previous draw Performed By: #### 8 [id number] ####[facility] [place] [address], [facility] PLAT CNT 313 10*3/uL Normal 150-400 [facility] Comment on above: Order Comment: No: D o not add to previous draw Performed By: #### 8 [id number] ####[facility] [place] [address], [facility] RBC Auto #/vol (Bld) 3.71 10*6/uL Low 3.80-5.00 [facility] Comment on above: Order Comment: No: D o not add to previous draw Performed By: #### 8 [id number] ####[facility] [place] [address], [facility] WBC Auto #/vol (Bld) 9.64 10*3/uL Normal 4.00-10.60 [facility] Comment on above: Order Comment: No: D o not add to previous draw Performed By: #### 8 [id number] ####[facility] [place] [address], [facility] LIVER BATTERYon 07-03-2018 Albumin mass conc 2.8 g/dL Low 3.5-5.7 [facility] Comment on above: Order Comment: No: D o not add to previous draw Performed By: #### 8 [id number] ####[facility] [place] [address], [facility] ALKALINE PHOSPH 87 IU/L Normal 34-104 [facility] Comment on above: Order Comment: No: D o not add to previous draw Performed By: #### 8 [id number] ####[facility] [place] [address], [facility] ALT enzyme act/vol 17 U/L Normal 7-52 [facility] Comment on above: Order Comment: No: D o not add to previous draw Performed By: #### 8 [id number] ####[facility] [place] [address], [facility] AST enzyme act/vol 17 U/L Normal 13-39 [facility] Comment on above: Order Comment: No: D o not add to previous draw Performed By: #### 8 [id number] ####[facility] Bilirubin mass conc 1.0 mg/dL Normal 0.3-1.0 [facility] Comment on above: Order Comment: No: D o not add to previous draw Performed By: #### 8 [id number] ####[facility] [place] [address], [facility] Bilirubin.direct mass conc 0.6 mg/dL High 0.0-0.2 [facility] Comment on above: Order Comment: No: D o not add to previous draw Performed By: #### 8 [id number] ####[facility] [place] [address], [facility] Protein mass conc 5.6 g/dL Low 6.0-8.3 [facility] Comment on above: Order Comment: No: D o not add to previous draw Performed By: #### 8 [id number] ####[facility] MAGNESIUM BLOODon 07-03-2018 Magnesium mass conc 2.3 mg/dL Normal 1.9-2.7 [facility] Comment on above: Order Comment: No: D o not add to previous draw Performed By: #### 8 [id number] ####[facility] [facility].[address] Operative Reporton 8 Operative Report MR#: [id number] [facility]ord[facility] Room #: [id number] Discharge Date: Birthdate: 1940 OPERATIVE REPORTDATE OF SURGERY: 07/02/2018SURGEON: Meg Abebe M.D.PREOPERATIVE DIAGNOSIS: Status post repair of enterocutaneous fistula andanastomosis leak.POSTOPERATIVE DIAGNOSIS: Status post repair of enterocutaneous fistula andanastomosis leak.OPERATION PERFORMED: Exploratory laparotomy, extensive lysis of adhesionmore than 2 hours, small-bowel resection with functional pht-rw-wdjzbgkecmprxq and repair of a transverse colon iatrogenic [...] time-out, the incision staple was reopened and flfwuficfdshaayiq-tv-cwvol suture was removed. The fascia was opened. [...] divided with the LigaSure. Then, a functional lwt-rj-cgqqzifbslpmsj was performed by a blue load 6 [...] 07/02/2018/07:16 P/Meg Abebe M.D.Date Trans: 07/02/2018 10:15 P/[id number]_JN:[id number] c: Kalin Santos D.O. [address] [facility] [address] Normal [facility] PHOSPHORUS BLOODon 8 Phosphate mass conc 2.3 mg/dL Low 2.5-5.0 [facility] Comment on above: Order Comment: No: D o not add to previous draw Performed By: #### 8 5499 ####[facility] [facility] [place] [address], [facility] POC GLUCOSE LABon 07-03-2018 Glucose mass conc 169 mg/dL High 70-100 [facility] Comment on above: Performed By: #### 8 5499 ####[facility] [facility] [place] [address], [facility] Glucose mass conc 141 mg/dL High 70-100 [facility] Comment on above: Performed By: #### 8 5499 ####[facility] [place] [address], [facility] Glucose mass conc 221 mg/dL High 70-100 [facility] Comment on above: Performed By: #### 8 5499 ####[facility] [place] [address], [facility] *BLOOD CULTUREon 07-02-2018 Bacteria identified in Blood by Culture Clinical Report: (D) Specimen: BLOOD CULTURE Collected: 07/02/2018 21:59 Status: Final Last Updated: 07/08/2018 07:42 CULT RES (Final) No Growth Day 5 Normal [facility] Comment on above: Performed By: #### 8 5499 ####[facility] [place] [address], [facility] Bacteria identified in Blood by Culture Clinical Report: (D) Specimen: BLOOD CULTURE Collected: 07/02/2018 21:50 Status: Final Last Updated: 07/08/2018 07:42 (1) left hand CULT RES (Final) No Growth Day 5 Normal [facility] Comment on above: Order Comment: left hand Performed By: #### 8 5499 ####[facility] [place] [address], [facility] BASIC METABOLIC PANELon 06-09 Calcium mass conc 8.2 mg/dL Low 8.6-10.3 [facility] Comment on above: Order Comment: No: D o not add to previous draw Performed By: #### 5 3771, 81297 ####[facility] [place] [address], [facility] Chloride molar conc 103 mmol/L Normal 98-107 [facility] Comment on above: Order Comment: No: D o not add to previous draw Performed By: #### 5 4661, 69203 ####[facility] [place] [address], [facility] CO2 molar conc 20 mmol/L Low 21-31 [facility] Comment on above: Order Comment: No: D o not add to previous draw Performed By: #### 5 411, 23712 ####[facility] [place] [address], [facility] Creatinine mass conc 1.09 mg/dL Normal 0.60-1.20 [facility] Comment on above: Order Comment: No: D o not add to previous draw Performed By: #### 5 610, 45567 ####[facility] [facility] [place] [address], [facility] GFR/1.73 sq M predicted among blacks MDRD vol rate/area (S/P/Bld) 59 ml/min/1.73sq m Abnormal >60 [facility] Comment on above: Order Comment: No: D o not add to previous draw Result Comment: Calc ulation may not be valid for patients over 70 years Performed By: #### 5 610, 99198 ####[facility] [facility] [place] [address], [facility] GFR/1.73 sq M predicted among non-blacks MDRD vol rate/area (S/P/Bld) 48 ml/min/1.73sq m Abnormal >60 [facility] Comment on above: Order Comment: No: D o not add to previous draw Result Comment: Calc ulation may not be valid for patients over 70 years Performed By: #### 5 610, 90047 ####[facility] [facility] [place] [address], [facility] Glucose mass conc 272 mg/dL High 70-100 [facility] Comment on above: Order Comment: No: D o not add to previous draw Performed By: #### 5 9141, 48805 ####[facility] [facility] [place] [address], [facility] Potassium molar conc 3.6 mmol/L Normal 3.5-5.1 [facility] Comment on above: Order Comment: No: D o not add to previous draw Performed By: #### 5 610, 44389 ####[facility] [place] [address], [place] Sodium molar conc 132 mmol/L Low 136-145 [facility] Comment on above: Order Comment: No: D o not add to previous draw Performed By: #### 5 610, 91432 ####[facility] [place] [address], [facility] Urea nitrogen mass conc 10 mg/dL Normal 7-25 [facility] Comment on above: Order Comment: No: D o not add to previous draw Performed By: #### 5 610, 97278 ####[facility] [place] [address], [facility] Calcium mass conc 8.4 mg/dL Low 8.6-10.3 [facility] Comment on above: Order Comment: No: D o not add to previous draw Performed By: #### 5 610, 65913 ####[facility] [place] [address], [facility] Chloride molar conc 106 mmol/L Normal 98-107 [facility] Comment on above: Order Comment: No: D o not add to previous draw Performed By: #### 5 610, 65713 ####[facility] [place] [address], [facility] CO2 molar conc 24 mmol/L Normal 21-31 [facility] Comment on above: Order Comment: No: D o not add to previous draw Performed By: #### 5 610, 64822 ####[facility] [place] [address], [facility] Creatinine mass conc 1.12 mg/dL Normal 0.60-1.20 [facility] Comment on above: Order Comment: No: D o not add to previous draw Performed By: #### 5 610, 64452 ####[facility] [place] [address], [facility] GFR/1.73 sq M predicted among blacks MDRD vol rate/area (S/P/Bld) 57 ml/min/1.73sq m Abnormal >60 [facility] Comment on above: Order Comment: No: D o not add to previous draw Result Comment: Calc ulation may not be valid for patients over 70 years Performed By: #### 5 610, 72079 ####[facility] [place] [address], [facility] GFR/1.73 sq M predicted among non-blacks MDRD vol rate/area (S/P/Bld) 47 ml/min/1.73sq m Abnormal >60 [facility] Comment on above: Order Comment: No: D o not add to previous draw Result Comment: Calc ulation may not be valid for patients over 70 years Performed By: #### 5 610, 15437 ####[facility] [place] [address], [facility] Glucose mass conc 149 mg/dL High 70-100 [facility] Comment on above: Order Comment: No: D o not add to previous draw Performed By: #### 5 610, 74534 ####[facility] [place] [address], [facility] Potassium molar conc 3.8 mmol/L Normal 3.5-5.1 [facility] Comment on above: Order Comment: No: D o not add to previous draw Performed By: #### 5 610, 79440 ####[facility] [place] [address], [facility] Sodium molar conc 136 mmol/L Normal 136-145 [facility] Comment on above: Order Comment: No: D o not add to previous draw Performed By: #### 5 610, 76410 ####[facility] [place] [address], [facility] Urea nitrogen mass conc 12 mg/dL Normal 7-25 [facility] Comment on above: Order Comment: No: D o not add to previous draw Performed By: #### 5 610, 43089 ####[facility] CBC COMPLETE BLOOD COUNTon 0 07-02-2018 Erythrocyte distribution width Auto Ratio (RBC) 13.8 % Normal 11.5-15.0 [facility] Comment on above: Order Comment: No: D o not add to previous [id number]- PATIENT NOT IN ROOM; STILL IN O.R. SHOULD BE RN DRAW, PER RN-TECH LM Performed By: #### 5 6101, 14082 ####[facility] Hematocrit Auto Volume Fraction (Bld) 36.9 % Normal 36.0-45.0 [facility] Comment on above: Order Comment: No: D o not add to previous [id number]- PATIENT NOT IN ROOM; STILL IN O.R. SHOULD BE RN DRAW, PER RN-TECH LM Performed By: #### 5 6101, 18541 ####[address] Hemoglobin mass conc (Bld) 11.6 g/dL Low 12.0-15.0 [facility] Comment on above: Order Comment: No: D o not add to previous [id number]- PATIENT NOT IN ROOM; STILL IN O.R. SHOULD BE RN DRAW, PER RN-TECH LM Performed By: #### 5 6101, 08178 ####[facility] MCH Auto Entitic mass (RBC) 31.1 pg Normal 27.0-33.0 [facility] Comment on above: Order Comment: No: D o not add to previous [id number]- PATIENT NOT IN ROOM; STILL IN O.R. SHOULD BE RN DRAW, PER RN-TECH LM Performed By: #### 5 6101, 07193 ####[facility] MCHC Auto mass conc (RBC) 31.4 g/dL Low 32.0-35.0 [facility] Comment on above: Order Comment: No: D o not add to previous [id number]- PATIENT NOT IN ROOM; STILL IN O.R. SHOULD BE RN DRAW, PER RN-TECH LM Performed By: #### 5 610, [address] ####[place] [address] [address] MCV Auto Entitic volume (RBC) 98.9 fL High 82.0-98.0 [facility] Comment on above: Order Comment: No: D o not add to previous [id number]- PATIENT NOT IN ROOM; STILL IN O.R. SHOULD BE RN DRAW, PER RN-TECH LM Performed By: #### 5 610, 79592 ####[address] Nucleated RBC/100 WBC Ratio (Bld) 0 % Normal 0-0 [facility] Comment on above: Order Comment: No: D o not add to previous [id number]- PATIENT NOT IN ROOM; STILL IN O.R. SHOULD BE RN DRAW, PER RN-TECH LM Performed By: #### 5 610, 89219 ####[address] PLAT CNT 165 10*3/uL Normal 150-400 [facility] Comment on above: Order Comment: No: D o not add to previous [id number]- PATIENT NOT IN ROOM; STILL IN O.R. SHOULD BE RN DRAW, PER RN-TECH LM Performed By: #### 5 610, 44430 ####[place] [address] [address] RBC Auto #/vol (Bld) 3.73 10*6/uL Low 3.80-5.00 [facility] Comment on above: Order Comment: No: D o not add to previous [id number]- PATIENT NOT IN ROOM; STILL IN O.R. SHOULD BE RN DRAW, PER RN-TECH LM Performed By: #### 5 610, 70610 ####[address] WBC Auto #/vol (Bld) 9.50 10*3/uL Normal 4.00-10.60 [facility] Comment on above: Order Comment: No: D o not add to previous [id number]- PATIENT NOT IN ROOM; STILL IN O.R. SHOULD BE RN DRAW, PER RN-TECH LM Performed By: #### 5 610, 71388 ####[facility] [facility].[address] Erythrocyte distribution width Auto Ratio (RBC) 13.9 % Normal 11.5-15.0 [facility] Comment on above: Order Comment: No: D o not add to previous draw Performed By: #### 5 610, 01574 ####[facility] [facility].[address] Hematocrit Auto Volume Fraction (Bld) 34.4 % Low 36.0-45.0 [facility] Comment on above: Order Comment: No: D o not add to previous draw Performed By: #### 5 610, 66040 ####[facility] [facility].[address] Hemoglobin mass conc (Bld) 10.8 g/dL Low 12.0-15.0 [facility] Comment on above: Order Comment: No: D o not add to previous draw Performed By: #### 5 610, 00460 ####[facility] [facility].[address] MCH Auto Entitic mass (RBC) 31.1 pg Normal 27.0-33.0 [facility] Comment on above: Order Comment: No: D o not add to previous draw Performed By: #### 5 610, 64594 ####[facility] [facility].[address] MCHC Auto mass conc (RBC) 31.4 g/dL Low 32.0-35.0 [facility] Comment on above: Order Comment: No: D o not add to previous draw Performed By: #### 5 610, 70563 ####[facility] MCV Auto Entitic volume (RBC) 99.1 fL High 82.0-98.0 [facility] Comment on above: Order Comment: No: D o not add to previous draw Performed By: #### 5 610, 45037 ####[facility] Nucleated RBC/100 WBC Ratio (Bld) 0 % Normal 0-0 [facility] Comment on above: Order Comment: No: D o not add to previous draw Performed By: #### 5 610, 42463 ####[facility] PLAT CNT 232 10*3/uL Normal 150-400 [facility] Comment on above: Order Comment: No: D o not add to previous draw Performed By: #### 5 610, 26182 ####[facility] [facility].[address] RBC Auto #/vol (Bld) 3.47 10*6/uL Low 3.80-5.00 [facility] Comment on above: Order Comment: No: D o not add to previous draw Performed By: #### 5 610, 53781 ####[facility] WBC Auto #/vol (Bld) 9.09 10*3/uL Normal 4.00-10.60 [facility] Comment on above: Order Comment: No: D o not add to previous draw Performed By: #### 5 6101, 61292 ####[facility] MAGNESIUM BLOODon 07-02-2018 Magnesium mass conc 1.6 mg/dL Low 1.9-2.7 [facility] Comment on above: Order Comment: No: D o not add to previous draw Performed By: #### 5 6101, 24651 ####[facility] Operative Reporton Operative Report MR#: [id number] [facility] Room #: 3AB [id number] Discharge Date: Birthdate: 1940 OPERATIVE REPORTDATE OF [...] The fascia wasclosed by interrupted 0 PDS jqnnor-mg-levuc suture. The skin was closed byskin jd. The Prevena wound VAC was applied. Operation was completedwithout complication.I was present during the entire operation.Electronically Signed by:Meg Abebe M.D. 07/07/2018 12:44 P Meg Abebe M.D.Date Dict: 07/02/2018/07:09 P/Meg Abebe M.D.Date Trans: 07/02/2018 09:51 P/[id number] c: Kalin Santos D.O. [address] [facility] [address] Normal [facility] PHOSPHORUS BLOODon 8 Phosphate mass conc 1.9 mg/dL Low 2.5-5.0 [facility] Comment on above: Order Comment: No: D o not add to previous [id number]- CHANGED TO LAB DRAW Performed By: #### 8 5499 ####[facility] [facility] [place] [address], [facility] POC GLUCOSE LABon 07-02-2018 Glucose mass conc 246 mg/dL High 70-100 [facility] Comment on above: Performed By: #### 5 6101, 72250 ####[facility] [facility] [place] [address], [facility] Glucose mass conc 145 mg/dL High 70-100 [facility] Comment on above: Performed By: #### 5 6101, 04864 ####[facility] [facility] [place] [address], [facility] Glucose mass conc 140 mg/dL High 70-100 [facility] Comment on above: Performed By: #### 5 6101, 36752 ####[facility] [facility] [place] [address], [facility] Glucose mass conc 163 mg/dL High 70-100 [facility] Comment on above: Performed By: #### 5 610, 51557 ####[facility] [place] [address], [facility] TYPE AND SCREENon 07-02-2018 ABO INTERPRETATION A Normal [facility] Comment on above: Performed By: #### 5 610, 93008 ####[facility] [place] [address], [place] RH INTERPRETATION Positive Normal [facility] Comment on above: Performed By: #### 5 610, 88342 ####[facility] [place] [address], [place] POC GLUCOSE LABon 07-01-2018 Glucose mass conc 137 mg/dL High 70-100 [facility] Comment on above: Performed By: #### 5 610, 20005 ####[facility] [place] [address], [place] Glucose mass conc 178 mg/dL High 70-100 [facility] Comment on above: Performed By: #### 5 610, 39583 ####[facility] [place] [address], [place] Glucose mass conc 119 mg/dL High 70-100 [facility] Comment on above: Performed By: #### 5 610, 89201 ####[facility] [place] [address], [place] Glucose mass conc 95 mg/dL Normal 70-100 [facility] Comment on above: Performed By: #### 5 6101, 93929 ####[facility] [place] [address], [place] BASIC METABOLIC PANELon 06-09 Calcium mass conc 8.3 mg/dL Low 8.6-10.3 [facility] Comment on above: Order Comment: No: D o not add to previous draw Performed By: #### 5 610, 37176 ####[facility] [place] [address], [facility] Chloride molar conc 110 mmol/L High 98-107 [facility] Comment on above: Order Comment: No: D o not add to previous draw Performed By: #### 5 610, 00868 ####[facility] [place] [address], [facility] CO2 molar conc 23 mmol/L Normal 21-31 [facility] Comment on above: Order Comment: No: D o not add to previous draw Performed By: #### 5 6101, 00068 ####[facility] [place] [address], [facility] Creatinine mass conc 1.08 mg/dL Normal 0.60-1.20 [facility] Comment on above: Order Comment: No: D o not add to previous draw Performed By: #### 5 610, 06759 ####[facility] [place] [address], [facility] GFR/1.73 sq M predicted among blacks MDRD vol rate/area (S/P/Bld) 59 ml/min/1.73sq m Abnormal >60 [facility] Comment on above: Order Comment: No: D o not add to previous draw Result Comment: Calc ulation may not be valid for patients over 70 years Performed By: #### 5 610, 28408 ####[facility] [place] [address], [place] GFR/1.73 sq M predicted among non-blacks MDRD vol rate/area (S/P/Bld) 49 ml/min/1.73sq m Abnormal >60 [facility] Comment on above: Order Comment: No: D o not add to previous draw Result Comment: Calc ulation may not be valid for patients over 70 years Performed By: #### 5 610, 16601 ####[facility] [place] [address], [facility] Glucose mass conc 148 mg/dL High 70-100 [facility] Comment on above: Order Comment: No: D o not add to previous draw Performed By: #### 5 610, 97940 ####[facility] [place] [address], [facility] Potassium molar conc 3.9 mmol/L Normal 3.5-5.1 [facility] Comment on above: Order Comment: No: D o not add to previous draw Performed By: #### 5 610, 96659 ####[facility] [place] [address], [facility] Sodium molar conc 139 mmol/L Normal 136-145 [facility] Comment on above: Order Comment: No: D o not add to previous draw Performed By: #### 5 610, 28664 ####[facility] [place] [address], [facility] Urea nitrogen mass conc 14 mg/dL Normal 7-25 [facility] Comment on above: Order Comment: No: D o not add to previous draw Performed By: #### 5 610, 31589 ####[facility] CBC COMPLETE BLOOD COUNTon 0 - Erythrocyte distribution width Auto Ratio (RBC) 14.0 % Normal 11.5-15.0 [facility] Comment on above: Order Comment: No: D o not add to previous draw Performed By: #### 5 610, 68768 ####[facility] [place] [address], [facility] Hematocrit Auto Volume Fraction (Bld) 34.0 % Low 36.0-45.0 [facility] Comment on above: Order Comment: No: D o not add to previous draw Performed By: #### 5 610, 52515 ####[facility] Hemoglobin mass conc (Bld) 10.7 g/dL Low 12.0-15.0 [facility] Comment on above: Order Comment: No: D o not add to previous draw Performed By: #### 5 610, 06734 ####[facility] MCH Auto Entitic mass (RBC) 31.6 pg Normal 27.0-33.0 [facility] Comment on above: Order Comment: No: D o not add to previous draw Performed By: #### 5 610, 89504 ####[place] [address] [facility] MCHC Auto mass conc (RBC) 31.5 g/dL Low 32.0-35.0 [facility] Comment on above: Order Comment: No: D o not add to previous draw Performed By: #### 5 610, 48430 ####[facility] [facility].[address] MCV Auto Entitic volume (RBC) 100.3 fL High 82.0-98.0 [facility] Comment on above: Order Comment: No: D o not add to previous draw Performed By: #### 5 610, 73620 ####[facility] [facility].[address] Nucleated RBC/100 WBC Ratio (Bld) 0 % Normal 0-0 [facility] Comment on above: Order Comment: No: D o not add to previous draw Performed By: #### 5 610, 34758 ####[facility] PLAT CNT 213 10*3/uL Normal 150-400 [facility] Comment on above: Order Comment: No: D o not add to previous draw Performed By: #### 5 610, 55076 ####[facility] RBC Auto #/vol (Bld) 3.39 10*6/uL Low 3.80-5.00 [facility] Comment on above: Order Comment: No: D o not add to previous draw Performed By: #### 5 610, [id number] ####[facility] [facility] [place] [address], [facility] WBC Auto #/vol (Bld) 11.66 10*3/uL High 4.00-10.60 [facility] Comment on above: Order Comment: No: D o not add to previous draw Performed By: #### 5 610, [id number] ####[facility] [facility].[address] MAGNESIUM BLOODon 06-30-2018 Magnesium mass conc 2.1 mg/dL Normal 1.9-2.7 [facility] Comment on above: Order Comment: No: D o not add to previous draw Performed By: #### 5 610, [id number] ####[facility] [facility].[address] PHOSPHORUS BLOODon 8 Phosphate mass conc 2.1 mg/dL Low 2.5-5.0 [facility] Comment on above: Order Comment: No: D o not add to previous draw Performed By: #### 5 610, [id number] ####[facility] [facility].[address] POC GLUCOSE LABon 06-30-2018 Glucose mass conc 160 mg/dL High 70-100 [facility] Comment on above: Performed By: #### 5 610, [id number] ####[facility] [facility].[address] Glucose mass conc 193 mg/dL High 70-100 [facility] Comment on above: Performed By: #### 5 610, 69952 ####[facility] [facility] [place] [address], [facility] Glucose mass conc 134 mg/dL High 70-100 [facility] Comment on above: Performed By: #### 8 5499 ####[facility] [place] [address], [facility] Glucose mass conc 132 mg/dL High 70-100 [facility] Comment on above: Performed By: #### 8 5499 ####[facility] [place] [address], [facility] BASIC METABOLIC PANELon 08- Calcium mass conc 8.7 mg/dL Normal 8.6-10.3 [facility] Comment on above: Order Comment: No: D o not add to previous draw Performed By: #### 8 5499 ####[facility] [place] [address], [facility] Chloride molar conc 110 mmol/L High 98-107 [facility] Comment on above: Order Comment: No: D o not add to previous draw Performed By: #### 8 [id number] ####[facility] [facility] [place] [address], [facility] CO2 molar conc 24 mmol/L Normal 21-31 [facility] Comment on above: Order Comment: No: D o not add to previous draw Performed By: #### 8 5499 ####[facility] [place] [address], [facility] Creatinine mass conc 1.25 mg/dL High 0.60-1.20 [facility] Comment on above: Order Comment: No: D o not add to previous draw Performed By: #### 8 5499 ####[facility] [facility] [place] [address], [facility] GFR/1.73 sq M predicted among blacks MDRD vol rate/area (S/P/Bld) 50 ml/min/1.73sq m Abnormal >60 [facility] Comment on above: Order Comment: No: D o not add to previous draw Result Comment: Calc ulation may not be valid for patients over 70 years Performed By: #### 8 5499 ####[facility] [facility] [place] [address], [facility] GFR/1.73 sq M predicted among non-blacks MDRD vol rate/area (S/P/Bld) 42 ml/min/1.73sq m Abnormal >60 [facility] Comment on above: Order Comment: No: D o not add to previous draw Result Comment: Calc ulation may not be valid for patients over 70 years Performed By: #### 8 [id number] ####[facility] [place] [address], [facility] Glucose mass conc 183 mg/dL High 70-100 [facility] Comment on above: Order Comment: No: D o not add to previous draw Performed By: #### 8 [id number] ####[facility] [facility] [place] [address], [facility] Potassium molar conc 4.0 mmol/L Normal 3.5-5.1 [facility] Comment on above: Order Comment: No: D o not add to previous draw Performed By: #### 8 5499 ####[facility] [place] [address], [facility] Sodium molar conc 139 mmol/L Normal 136-145 [facility] Comment on above: Order Comment: No: D o not add to previous draw Performed By: #### 8 [id number] ####[facility] [place] [address], [facility] Urea nitrogen mass conc 16 mg/dL Normal 7-25 [facility] Comment on above: Order Comment: No: D o not add to previous draw Performed By: #### 8 [id number] ####[facility] [place] [address], [facility] CBC COMPLETE BLOOD COUNTon 0 06-29-2018 Erythrocyte distribution width Auto Ratio (RBC) 14.2 % Normal 11.5-15.0 [facility] Comment on above: Order Comment: No: D o not add to previous draw Performed By: #### 8 [id number] ####[facility] Hematocrit Auto Volume Fraction (Bld) 36.9 % Normal 36.0-45.0 [facility] Comment on above: Order Comment: No: D o not add to previous draw Performed By: #### 8 [id number] ####[facility] Hemoglobin mass conc (Bld) 11.5 g/dL Low 12.0-15.0 [facility] Comment on above: Order Comment: No: D o not add to previous draw Performed By: #### 8 [id number] ####[facility] MCH Auto Entitic mass (RBC) 31.1 pg Normal 27.0-33.0 [facility] Comment on above: Order Comment: No: D o not add to previous draw Performed By: #### 8 5499 ####[facility] MCHC Auto mass conc (RBC) 31.2 g/dL Low 32.0-35.0 [facility] Comment on above: Order Comment: No: D o not add to previous draw Performed By: #### 8 5499 ####[facility] MCV Auto Entitic volume (RBC) 99.7 fL High 82.0-98.0 [facility] Comment on above: Order Comment: No: D o not add to previous draw Performed By: #### 8 [id number] ####[facility] Nucleated RBC/100 WBC Ratio (Bld) 0 % Normal 0-0 [facility] Comment on above: Order Comment: No: D o not add to previous draw Performed By: #### 8 [id number] ####[facility] [place] [address], [facility] PLAT CNT 228 10*3/uL Normal 150-400 [facility] Comment on above: Order Comment: No: D o not add to previous draw Performed By: #### 8 5499 ####[facility] [place] [address], [facility] RBC Auto #/vol (Bld) 3.70 10*6/uL Low 3.80-5.00 [facility] Comment on above: Order Comment: No: D o not add to previous draw Performed By: #### 8 [id number] ####[facility] [place] [address], [facility] WBC Auto #/vol (Bld) 14.41 10*3/uL High 4.00-10.60 [facility] Comment on above: Order Comment: No: D o not add to previous draw Performed By: #### 8 [id number] ####[facility] MAGNESIUM BLOODon 06-29-2018 Magnesium mass conc 2.5 mg/dL Normal 1.9-2.7 [facility] Comment on above: Order Comment: No: D o not add to previous draw Performed By: #### 8 [id number] ####[facility] [place] [address], [facility] PHOSPHORUS BLOODon 8 Phosphate mass conc 1.7 mg/dL Low 2.5-5.0 [facility] Comment on above: Order Comment: No: D o not add to previous draw Performed By: #### 8 5499 ####[facility] [place] [address], [facility] POC GLUCOSE LABon 06-29-2018 Glucose mass conc 134 mg/dL High 70-100 [facility] Comment on above: Performed By: #### 8 5499 ####[facility] [place] [address], [facility] Glucose mass conc 168 mg/dL High 70-100 [facility] Comment on above: Performed By: #### 8 5499 ####[facility] [place] [address], [facility] Glucose mass conc 169 mg/dL High 70-100 [facility] Comment on above: Performed By: #### 0 0121 ####[facility] [place] [address], [facility] Glucose mass conc 180 mg/dL High 70-100 [facility] Comment on above: Performed By: #### 0 0121 ####[facility] [place] [id number] [place] [address] PORTABLE CHEST 1 VIEWon 06-09 PORTABLE CHEST 1 VIEW [facility] Coxliyfws[address] [place] [id number] Stacy ent Name: VIDHYA GIORDANO : 1940Sex: FAge: Race: WhiteMRN: [id number]. Location: [id number] Status: IVisit #: [id number] Date: 06/29/2018 7:00:00 AMCompleted Date: 06/29/2018 07:23 AMRequesting Provider: MARLIN DELGADO Attending Provider: MEG ABEBE Report Copy To: Signs & Symptoms: Elevated WBCHistory: Patient history not availableComments: R/O PneumoniaExam: PORTABLE CHEST 1 VIEWAccession #: [id number] ===PORTABLE CHEST 1 VIEW 06/29/2018 7:23 AM [...] findings. Electronically signed by:Rhoda Nicole. Transcribed by: [email or web address], User Resident: MARITA MCKEONElectronically Signed by: RHODA NICOLE @ 06/29/2018 09:45 AMI personally read this/these film(s) with this resident Normal [facility] Comment on above: Order Comment: R/O P neumonia *BLOOD CULTUREon 06-28-2018 Bacteria identified in Blood by Culture Clinical Report: (D) Specimen: BLOOD CULTURE Collected: 06/28/2018 18:45 Status: Final Last Updated: 07/04/2018 07:52 CULT RES (Final) No Growth Day 5 Normal [facility] Comment on above: Performed By: #### 0 0121 ####[facility] [facility].[address] BASIC METABOLIC PANELon 08-2 Calcium mass conc 8.6 mg/dL Normal 8.6-10.3 [facility] Comment on above: Order Comment: No: D o not add to previous drawNo collection time noted on specimen or requisition. The collection timerecorded is the time of receipt in the lab. Performed By: #### 0 0121 ####[address] [place] [address], [facility] Chloride molar conc 106 mmol/L Normal 98-107 [facility] Comment on above: Order Comment: No: D o not add to previous drawNo collection time noted on specimen or requisition. The collection timerecorded is the time of receipt in the lab. Performed By: #### 0 0121 ####[place] [address], [facility] CO2 molar conc 26 mmol/L Normal 21-31 [facility] Comment on above: Order Comment: No: D o not add to previous drawNo collection time noted on specimen or requisition. The collection timerecorded is the time of receipt in the lab. Performed By: #### 0 0121 ####[address] Creatinine mass conc 1.50 mg/dL High 0.60-1.20 [facility] Comment on above: Order Comment: No: D o not add to previous drawNo collection time noted on specimen or requisition. The collection timerecorded is the time of receipt in the lab. Performed By: #### 0 0121 ####[address] GFR/1.73 sq M predicted among blacks MDRD vol rate/area (S/P/Bld) 41 ml/min/1.73sq m Abnormal >60 [facility] Comment on above: Order Comment: No: D o not add to previous drawNo collection time noted on specimen or requisition. The collection timerecorded is the time of receipt in the lab. Result Comment: Calc ulation may not be valid for patients over 70 years Performed By: #### 0 0121 ####[place] [address] [place] [address], [facility] GFR/1.73 sq M predicted among non-blacks MDRD vol rate/area (S/P/Bld) 33 ml/min/1.73sq m Abnormal >60 [facility] Comment on above: Order Comment: No: D o not add to previous drawNo collection time noted on specimen or requisition. The collection timerecorded is the time of receipt in the lab. Result Comment: Calc ulation may not be valid for patients over 70 years Performed By: #### 0 0121 ####[place] [address], [facility] Glucose mass conc 170 mg/dL High 70-100 [facility] Comment on above: Order Comment: No: D o not add to previous drawNo collection time noted on specimen or requisition. The collection timerecorded is the time of receipt in the lab. Performed By: #### 0 0121 ####[place] [address], [facility] Potassium molar conc 4.0 mmol/L Normal 3.5-5.1 [facility] Comment on above: Order Comment: No: D o not add to previous drawNo collection time noted on specimen or requisition. The collection timerecorded is the time of receipt in the lab. Performed By: #### 0 0121 ####[address] [place] [address], [facility] Sodium molar conc 137 mmol/L Normal 136-145 [facility] Comment on above: Order Comment: No: D o not add to previous drawNo collection time noted on specimen or requisition. The collection timerecorded is the time of receipt in the lab. Performed By: #### 0 0121 ####[address] [place] [address], [place] Urea nitrogen mass conc 23 mg/dL Normal 7-25 [facility] Comment on above: Order Comment: No: D o not add to previous drawNo collection time noted on specimen or requisition. The collection timerecorded is the time of receipt in the lab. Performed By: #### 0 0121 ####[place] [id number] CBC W/DIFFon 06-28-2018 ABS BASOPHILS 0.0 10*3/uL Normal 0.0-0.2 [facility] Comment on above: Order Comment: No: D o not add to previous drawNo collection time noted on specimen or requisition. The collection timerecorded is the time of receipt in the lab. Performed By: #### 0 0121 ####[address] ABS IMM GRANS 0.1 10*3/uL Normal 0.0-0.2 [facility] Comment on above: Order Comment: No: D o not add to previous drawNo collection time noted on specimen or requisition. The collection timerecorded is the time of receipt in the lab. Performed By: #### 0 0121 ####[place] [address] ABS NEUTROPHILS 9.5 10*3/uL High 1.6-7.6 [facility] Comment on above: Order Comment: No: D o not add to previous drawNo collection time noted on specimen or requisition. The collection timerecorded is the time of receipt in the lab. Performed By: #### 0 0121 ####[address] Basophils Auto #/vol (Bld) 0.2 % Normal 0.0-1.0 [facility] Comment on above: Order Comment: No: D o not add to previous drawNo collection time noted on specimen or requisition. The collection timerecorded is the time of receipt in the lab. Performed By: #### 0 0121 ####[facility] [facility] [place] [address], [facility] Eosinophils Auto #/vol (Bld) 0.0 10*3/uL Normal 0.0-0.5 [facility] Comment on above: Order Comment: No: D o not add to previous drawNo collection time noted on specimen or requisition. The collection timerecorded is the time of receipt in the lab. Performed By: #### 0 0121 ####[facility] Eosinophils/100 WBC Auto (Bld) 0.1 % Normal 0.0-6.0 [facility] Comment on above: Order Comment: No: D o not add to previous drawNo collection time noted on specimen or requisition. The collection timerecorded is the time of receipt in the lab. Performed By: #### 0 0121 ####[facility] Erythrocyte distribution width Auto Ratio (RBC) 14.0 % Normal 11.5-15.0 [facility] Comment on above: Order Comment: No: D o not add to previous drawNo collection time noted on specimen or requisition. The collection timerecorded is the time of receipt in the lab. Performed By: #### 0 0121 ####[facility] [facility].[address] Hematocrit Auto Volume Fraction (Bld) 35.7 % Low 36.0-45.0 [facility] Comment on above: Order Comment: No: D o not add to previous drawNo collection time noted on specimen or requisition. The collection timerecorded is the time of receipt in the lab. Performed By: #### 0 0121 ####[address] Hemoglobin mass conc (Bld) 11.9 g/dL Low 12.0-15.0 [facility] Comment on above: Order Comment: No: D o not add to previous drawNo collection time noted on specimen or requisition. The collection timerecorded is the time of receipt in the lab. Performed By: #### 0 0121 ####[facility] IMMATURE GRANS 0.4 % Normal 0.0-1.0 [facility] Comment on above: Order Comment: No: D o not add to previous drawNo collection time noted on specimen or requisition. The collection timerecorded is the time of receipt in the lab. Performed By: #### 0 0121 ####[address] Lymphocytes Auto #/vol (Bld) 2.5 10*3/uL Normal 1.2-4.0 [facility] Comment on above: Order Comment: No: D o not add to previous drawNo collection time noted on specimen or requisition. The collection timerecorded is the time of receipt in the lab. Performed By: #### 0 0121 ####[address] Lymphocytes/100 WBC Auto (Bld) 18.4 % Low 20.0-45.0 [facility] Comment on above: Order Comment: No: D o not add to previous drawNo collection time noted on specimen or requisition. The collection timerecorded is the time of receipt in the lab. Performed By: #### 0 0121 ####[place] [address] MCH Auto Entitic mass (RBC) 31.7 pg Normal 27.0-33.0 [facility] Comment on above: Order Comment: No: D o not add to previous drawNo collection time noted on specimen or requisition. The collection timerecorded is the time of receipt in the lab. Performed By: #### 0 0121 ####[facility] MCHC Auto mass conc (RBC) 33.3 g/dL Normal 32.0-35.0 [facility] Comment on above: Order Comment: No: D o not add to previous drawNo collection time noted on specimen or requisition. The collection timerecorded is the time of receipt in the lab. Performed By: #### 0 0121 ####[address] MCV Auto Entitic volume (RBC) 95.2 fL Normal 82.0-98.0 [facility] Comment on above: Order Comment: No: D o not add to previous drawNo collection time noted on specimen or requisition. The collection timerecorded is the time of receipt in the lab. Performed By: #### 0 0121 ####[address] Monocytes Auto #/vol (Bld) 1.3 10*3/uL High 0.1-1.0 [facility] Comment on above: Order Comment: No: D o not add to previous drawNo collection time noted on specimen or requisition. The collection timerecorded is the time of receipt in the lab. Performed By: #### 0 0121 ####[address] MONOS 10.0 % Normal 5.0-12.0 [facility] Comment on above: Order Comment: No: D o not add to previous drawNo collection time noted on specimen or requisition. The collection timerecorded is the time of receipt in the lab. Performed By: #### 0 0121 ####[address] Neutrophils/100 WBC Auto (Bld) 70.9 % Normal 40.0-72.0 [facility] Comment on above: Order Comment: No: D o not add to previous drawNo collection time noted on specimen or requisition. The collection timerecorded is the time of receipt in the lab. Performed By: #### 0 0121 ####[facility] Nucleated RBC/100 WBC Ratio (Bld) 0 % Normal 0-0 [facility] Comment on above: Order Comment: No: D o not add to previous drawNo collection time noted on specimen or requisition. The collection timerecorded is the time of receipt in the lab. Performed By: #### 0 0121 ####[facility] PLAT CNT 236 10*3/uL Normal 150-400 [facility] Comment on above: Order Comment: No: D o not add to previous drawNo collection time noted on specimen or requisition. The collection timerecorded is the time of receipt in the lab. Performed By: #### 0 0121 ####[facility] RBC Auto #/vol (Bld) 3.75 10*6/uL Low 3.80-5.00 [facility] Comment on above: Order Comment: No: D o not add to previous drawNo collection time noted on specimen or requisition. The collection timerecorded is the time of receipt in the lab. Performed By: #### 0 0121 ####[facility] WBC Auto #/vol (Bld) 13.43 10*3/uL High 4.00-10.60 [facility] Comment on above: Order Comment: No: D o not add to previous drawNo collection time noted on specimen or requisition. The collection timerecorded is the time of receipt in the lab. Performed By: #### 0 0121 ####[address] MAGNESIUM BLOODon 06-28-2018 Magnesium mass conc 1.7 mg/dL Low 1.9-2.7 [facility] Comment on above: Order Comment: No: D o not add to previous drawNo collection time noted on specimen or requisition. The collection timerecorded is the time of receipt in the lab. Performed By: #### 1 0070, [id number], [id number] ####[facility] [facility] [place] [address], [facility] PHOSPHORUS BLOODon 8 Phosphate mass conc 3.4 mg/dL Normal 2.5-5.0 [facility] Comment on above: Order Comment: No: D o not add to previous drawNo collection time noted on specimen or requisition. The collection timerecorded is the time of receipt in the lab. Performed By: #### 1 0070, 13315, [id number] ####[facility] [facility] [place] [address], [facility] POC GLUCOSE LABon 06-28-2018 Glucose mass conc 166 mg/dL High 70-100 [facility] Comment on above: Performed By: #### 0 0121 ####[facility] [facility] [place] [address], [facility] Glucose mass conc 168 mg/dL High 70-100 [facility] Comment on above: Performed By: #### 0 0121 ####[facility] [facility] [place] [address], [facility] Glucose mass conc 141 mg/dL High 70-100 [facility] Comment on above: Performed By: #### 0 0121 ####[facility] [facility] [place] [address], [facility] Glucose mass conc 180 mg/dL High 70-100 [facility] Comment on above: Performed By: #### 8 5499 ####[facility] [facility] [place] [address], [facility] PORTABLE CHEST 1 VIEWon 06-09 PORTABLE CHEST 1 VIEW [facility] [id number] [place] [address] Stacy ent Name: VIDHYA GIORDANO : 1940Sex: FAge: Race: WhiteMRN: [id number]. Location: [id number] Status: IVisit #: [id number] Date: 06/28/2018 6:35:00 PMCompleted Date: 06/28/2018 07:38 PMRequesting Provider: VINICIO REAVES Attending Provider: MEG ABEBE Report Copy To: Signs & Symptoms: FeverHistory: Patient history not availableComments: R/O InfiltratesExam: PORTABLE CHEST 1 VIEWAccession #: [id number] ===PORTABLE CHEST 1 VIEW 06/28/2018 7:38 PM [...] findings. Electronically signed by:Rhoda Nicole. Transcribed by: [email or web address], User Resident: MARITA MCKEONElectronically Signed by: RHODA NICOLE @ 06/29/2018 09:22 AMI personally read this/these film(s) with this resident Normal [facility] Comment on above: Order Comment: R/O I nfiltrates URINALYSIS REFLEXon 06-28-20 18 APPEARANCE CLEAR Normal CLEAR [facility] Comment on above: Order Comment: No: D o not add to previous drawCriteria for reflexing a culture was not met. Please call the lab [id number] within 24 hours of collection time if culture is needed Performed By: #### 0 0121 ####[facility] [place] [address], [place] BILIRUBIN Negative Normal NEGATIVE [facility] Comment on above: Order Comment: No: D o not add to previous drawCriteria for reflexing a culture was not met. Please call the lab [id number] within 24 hours of collection time if culture is needed Performed By: #### 0 0121 ####[facility] [place] [address], [place] BLOOD Negative Normal NEGATIVE [facility] Comment on above: Order Comment: No: D o not add to previous drawCriteria for reflexing a culture was not met. Please call the lab [id number] within 24 hours of collection time if culture is needed Performed By: #### 0 0121 ####[facility] [place] [address], [place] COLOR YELLOW Normal YELLOW [facility] Comment on above: Order Comment: No: D o not add to previous drawCriteria for reflexing a culture was not met. Please call the lab [id number] within 24 hours of collection time if culture is needed Performed By: #### 0 0121 ####[facility] [place] [address], [place] GLUCOSE Negative Normal NEGATIVE [facility] Comment on above: Order Comment: No: D o not add to previous drawCriteria for reflexing a culture was not met. Please call the lab [id number] within 24 hours of collection time if culture is needed Performed By: #### 0 0121 ####[facility] [place] [address], [place] KETONE Negative Normal NEGATIVE [facility] Comment on above: Order Comment: No: D o not add to previous drawCriteria for reflexing a culture was not met. Please call the lab [id number] within 24 hours of collection time if culture is needed Performed By: #### 0 0121 ####[facility] [facility] [place] [address], [facility] [place] Negative Normal NEGATIVE [facility] Comment on above: Order Comment: No: D o not add to previous drawCriteria for reflexing a culture was not met. Please call the lab [id number] within 24 hours of collection time if culture is needed Performed By: #### 0 0121 ####[facility] [facility] [place] [address], [facility] MICRO NOT DONE negative chemical reactions unless requested in original order Normal [facility] Comment on above: Order Comment: No: D o not add to previous drawCriteria for reflexing a culture was not met. Please call the lab [id number] within 24 hours of collection time if culture is needed Performed By: #### 0 0121 ####[facility] [facility] [place] [place] [address], [place] NITRITE Negative Normal NEGATIVE [facility] Comment on above: Order Comment: No: D o not add to previous drawCriteria for reflexing a culture was not met. Please call the lab [id number] within 24 hours of collection time if culture is needed Performed By: #### 0 0121 ####[facility] [place] [address], [facility] PH 5.0 Normal 5.0-8.0 [facility] Comment on above: Order Comment: No: D o not add to previous drawCriteria for reflexing a culture was not met. Please call the lab [id number] within 24 hours of collection time if culture is needed Performed By: #### 0 0121 ####[facility] [facility].[address] Protein mass conc Negative Normal NEGATIVE [facility] Comment on above: Order Comment: No: D o not add to previous drawCriteria for reflexing a culture was not met. Please call the lab [id number] within 24 hours of collection time if culture is needed Performed By: #### 0 0121 ####[place] [address] [address] SPEC GRAV 1.013 Low 1.015-1.020 [facility] Comment on above: Order Comment: No: D o not add to previous drawCriteria for reflexing a culture was not met. Please call the lab [id number] within 24 hours of collection time if culture is needed Performed By: #### 0 0121 ####[facility] [facility].[address] APTTon 06-27-2018 aPTT Coag time (Bld) 33.7 s Normal 25.0-35.0 [facility] Comment on above: Result Comment: ALL RESULTS [...] THIS PURPOSE. Performed By: #### 5 6101, [id number] ####[place] [address] [facility].[address] POC GLUCOSE LABon 06-27-2018 Glucose mass conc 164 mg/dL High 70-100 [facility] Comment on above: Performed By: #### 8 5499 ####[facility] [facility] [place] [address], [facility] Glucose mass conc 194 mg/dL High 70-100 [facility] Comment on above: Performed By: #### 8 5499 ####[facility] [facility] [place] [address], [facility] Glucose mass conc 115 mg/dL High 70-100 [facility] Comment on above: Performed By: #### 8 5499 ####[facility] [facility].[address] PROTHROMBIN TIMEon 8 INR Coag RelTime (PPP) 1.07 {INR} Normal 0.91-1.16 [facility] Comment on above: Result Comment: ACCC P RECOMMENDED INR FOR WARFARIN THERAPY CONDITION INRPROPHYLAXIS OF VENOUS THROMBOSIS 2-3(HIGH-RISK SURGERY)TREATMENT OF VENOUS THROMBOSIS 2-3TREATMENT OF PULMONARY EMBOLISM 2-3PREVENTION OF SYSTEMIC EMBOLISM: 2-3 ACUTE MYOCARDIAL INFARCTION TISSUE HEART VALVES VALVULAR HEART DISEASE ATRIAL FIBRILLATION RECURRENT SYSTEMIC EMBOLISMMECHANICAL HEART VALVE 2.5-3.5 FROM: ORAL ANTICOAGULANTS. MECHANISM OF ACTION, CLINICALEFFECTIVENESS, AND OPTIMAL THERAPEUTIC RANGE. [id number]. Performed By: #### 5 6101, [id number] ####[facility] Prothrombin time (PT) Coag time (PPP) 13.9 s Normal 12.3-14.8 [facility] Comment on above: Result Comment: ALL RESULTS MUST BE INTERPRETED WITH RESPECT TO BLOOD DRAWING ARTIFACTOR DILUTION ERROR OF ANTICOAGULANT AT THE TIME OF SAMPLING. Performed By: #### 5 6101, 85557 ####[facility] CBC W/DIFFon 05-24-2018 ABS BASOPHILS 0.1 10*3/uL Normal 0.0-0.2 [facility] Comment on above: Performed By: #### 5 0103 ####[facility] [facility].[address] ABS IMM GRANS 0.1 10*3/uL Normal 0.0-0.2 [facility] Comment on above: Performed By: #### 5 0103 ####[facility] [place] [address] ABS NEUTROPHILS 4.6 10*3/uL Normal 1.6-7.6 [facility] Comment on above: Performed By: #### 5 0103 ####[facility] [facility].[address] Basophils Auto #/vol (Bld) 0.7 % Normal 0.0-1.0 [facility] Comment on above: Performed By: #### 5 3 ####[place] [address] [facility].[address] Eosinophils Auto #/vol (Bld) 0.5 10*3/uL Normal 0.0-0.5 [facility] Comment on above: Performed By: #### 5 0103 ####[facility] [facility].[address] Eosinophils/100 WBC Auto (Bld) 5.2 % Normal 0.0-6.0 [facility] Comment on above: Performed By: #### 5 3 ####[facility] [facility].[address] Erythrocyte distribution width Auto Ratio (RBC) 13.8 % Normal 11.5-15.0 [facility] Comment on above: Performed By: #### 5 0103 ####[place] [address] [address] Hematocrit Auto Volume Fraction (Bld) 40.0 % Normal 36.0-45.0 [facility] Comment on above: Performed By: #### 5 3 ####[address] Hemoglobin mass conc (Bld) 13.0 g/dL Normal 12.0-15.0 [facility] Comment on above: Performed By: #### 5 3 ####[address] IMMATURE GRANS 0.6 % Normal 0.0-1.0 [facility] Comment on above: Performed By: #### 3 ####[address] Lymphocytes Auto #/vol (Bld) 3.1 10*3/uL Normal 1.2-4.0 [facility] Comment on above: Performed By: #### 5 3 ####[address] Lymphocytes/100 WBC Auto (Bld) 33.5 % Normal 20.0-45.0 [facility] Comment on above: Performed By: #### 5 3 ####[place] [address] [address] MCH Auto Entitic mass (RBC) 31.9 pg Normal 27.0-33.0 [facility] Comment on above: Performed By: #### 102 ####[address] MCHC Auto mass conc (RBC) 32.5 g/dL Normal 32.0-35.0 [facility] Comment on above: Performed By: #### 5 102 ####[facility] [facility].[address] MCV Auto Entitic volume (RBC) 98.0 fL Normal 82.0-98.0 [facility] Comment on above: Performed By: #### 102 ####[facility] [facility].[address] Monocytes Auto #/vol (Bld) 1.0 10*3/uL Normal 0.1-1.0 [facility] Comment on above: Performed By: #### 5 102 ####[facility] [facility].[address] MONOS 10.3 % Normal 5.0-12.0 [facility] Comment on above: Performed By: #### 5 102 ####[facility] [facility].[address] Neutrophils/100 WBC Auto (Bld) 49.7 % Normal 40.0-72.0 [facility] Comment on above: Performed By: #### 5 102 ####[facility] [facility].[address] Nucleated RBC/100 WBC Ratio (Bld) 0 % Normal 0-0 [facility] Comment on above: Performed By: #### 102 ####[facility] [facility].[address] PLAT CNT 258 10*3/uL Normal 150-400 [facility] Comment on above: Performed By: #### 102 ####[facility] RBC Auto #/vol (Bld) 4.08 10*6/uL Normal 3.80-5.00 [facility] Comment on above: Performed By: #### 5 0103 ####[facility] [facility].[address] WBC Auto #/vol (Bld) 9.35 10*3/uL Normal 4.00-10.60 [facility] Comment on above: Performed By: #### 5 0103 ####[facility] [facility].[address] COMP METABOLIC PANELon 05-24 Albumin mass conc 4.1 g/dL Normal 3.5-5.7 [facility] Comment on above: Performed By: #### 0 0121 ####[facility] ALKALINE PHOSPH 64 IU/L Normal 34-104 [facility] Comment on above: Performed By: #### 0 0121 ####[facility] ALT enzyme act/vol 26 U/L Normal 7-52 [facility] Comment on above: Performed By: #### 0 0121 ####[facility] AST enzyme act/vol 32 U/L Normal 13-39 [facility] Comment on above: Performed By: #### 0 0121 ####[facility] [facility].[address] Bilirubin mass conc 0.4 mg/dL Normal 0.3-1.0 [facility] Comment on above: Performed By: #### 0 0121 ####[facility] Calcium mass conc 10.2 mg/dL Normal 8.6-10.3 [facility] Comment on above: Performed By: #### 0 0121 ####[facility] [place] [address], [facility] Chloride molar conc 102 mmol/L Normal 98-107 [facility] Comment on above: Performed By: #### 0 0121 ####[facility] [facility] [place] [address], [facility] CO2 molar conc 24 mmol/L Normal 21-31 [facility] Comment on above: Performed By: #### 0 0121 ####[facility] [place] [address], [facility] Creatinine mass conc 1.41 mg/dL High 0.60-1.20 [facility] Comment on above: Performed By: #### 0 0121 ####[facility] [address], [facility] GFR/1.73 sq M predicted among blacks MDRD vol rate/area (S/P/Bld) 44 ml/min/1.73sq m Abnormal >60 [facility] Comment on above: Result Comment: Calc ulation may not be valid for patients over 70 years Performed By: #### 0 0121 ####[facility] [facility] [place] [address], [facility] GFR/1.73 sq M predicted among non-blacks MDRD vol rate/area (S/P/Bld) 36 ml/min/1.73sq m Abnormal >60 [facility] Comment on above: Result Comment: Calc ulation may not be valid for patients over 70 years Performed By: #### 0 0121 ####[facility] [place] [address], [facility] Glucose mass conc 129 mg/dL High 70-100 [facility] Comment on above: Performed By: #### 0 0121 ####[facility] [place] [address], [facility] Potassium molar conc 5.1 mmol/L Normal 3.5-5.1 [facility] Comment on above: Performed By: #### 0 0121 ####[facility] Protein mass conc 7.6 g/dL Normal 6.0-8.3 [facility] Comment on above: Performed By: #### 0 0121 ####[facility] [place], [place] [address] [place] [address] Sodium molar conc 134 mmol/L Low 136-145 [facility] Comment on above: Performed By: #### 0 0121 ####[facility] Urea nitrogen mass conc 25 mg/dL Normal 7-25 [facility] Comment on above: Performed By: #### 0 0121 ####[facility] Progress Noteon 12-02-2017 HIM IP Note OR Unhairing Machine Operator Normal [facility] HIM IP Note OR Unhairing Machine Operator Normal [facility] Vital Signs Date Time Vital Sign Value Performing Clinician Manohari shana 05-03-2024 13:14040 Body height 152.4 cm MD Kael Adkins Work Phone: [facility] 05-03-2024 13:14040 Body mass index (BMI) [Ratio] 31.5 kg/m2 MD Kael Adkins Work Phone: [facility] 05-03-2024 13:14040 Body weight 73.2 kg MD Kael Adkins Work Phone: [facility] 05-03-2024 13:040 Body temperature 97.3 [degF] MD Kael Adkins Work Phone: [facility] 05-03-2024 13:02040 Diastolic blood pressure 59 mm[Hg] MD Kael Adkins Work Phone: [facility] 05-03-2024 13:02040 Heart rate 56 /min MD Kael Adkins Work Phone: [facility] 05-03-2024 13:02-0400 Respiratory rate 20 /min MD Kael Adkins Work Phone: [facility] 05-03-2024 13:02-0400 Systolic blood pressure 106 mm[Hg] MD Kael Adkins Work Phone: [facility] Encounters Encounter Date Encounter Type Care Provider Facility Start: 07-09-2025 ambulatory CONVERSION PROVIDER [facility] Start: 07-08-2025 Emergency department patient visit CONVERSION PROVIDER [facility] Start: 07-08-2025 End: 07-08-2025 ambulatory Jackelyn Arreola [facility] Work Phone: Start: 07-08-2025 End: 07-08-2025 Departed Referred Jackelyn Arreola MD -[facility] Start: 03-07-2025 End: 03-07-2025 ambulatory Kael Adkins [facility] Work Phone: Start: 03-07-2025 End: 03-07-2025 Departed Referred Kael Adkins MD Work Phone: [facility] Start: 03-05-2025 End: 03-05-2025 ambulatory STACIA Gutierrez [facility] Start: 05-03-2024 End: 05-03-2024 ambulatory MD Kael Adkins Work Phone: [facility] Work Phone: Start: 05-03-2024 End: 05-03-2024 Discharged Recurring MD Kael Adkins Work Phone: [facility] Roger Work Phone: Start: 12-13-2023 End: 12-13-2023 Clinical Support Anna Kumar [facility] Work Phone: [facility] Comment on above: Bilateral impacted c erumen (Primary Dx) Start: 01-22-2023 End: 01-22-2023 ambulatory [facility] Facility:[facility] Start: 11-16-2022 End: 11-17-2022 ambulatory NONE LISTED REQUEST Facility:[facility] Start: 09-16-2022 ambulatory STACIA ARIANNA Facility: Start: 08-28-2022 End: 08-29-2022 ambulatory KAEL ADKINS Facility:[facility] Start: 02-11-2022 End: 02-12-[address] DOCTOR JUAREZ Facility:[facility] Start: 02-08-2022 End: 02-08-[address] KAEL ADKINS . Facility:[facility] Start: 02-04-2022 ambulatory STACIA KELLER Facility: [facility] Start: 02-01-2022 End: 02-01-[address] KAEL ADKINS . Facility: Start: 06-27-2018 End: 07-19-2018 Evaluation and management of inpatient MEG ABEBE Facility:[facility] Start: 05-24-2018 End: 05-25-2018 Patient encounter MEG ABEBE Facility:[facility] Start: 04-19-2018 End: 04-20-2018 Patient encounter MEG ABEBE Facility:[facility] Procedures Date Procedure Procedure Detail Performing Clinician Start: 07-02-2018 EXCISION OF PERITONE UM, OPEN APPROACH MEG ABEBE Start: 07-02-2018 EXCISION OF SMALL IN TESTINE, OPEN APPROACH MEG ABEBE Start: 07-02-2018 INTRODUCE ADHESION B ARRIER IN PERITON CAV, OPEN TOMERIN ABEBE Start: 07-02-2018 RELEASE SMALL INTEST INE, OPEN APPROACH TOMERIN ABEBE Start: 07-02-2018 REPAIR TRANSVERSE CO ELMER, OPEN APPROACH TOMERIN ABEBE Start: 07-02-2018 Antibody screen MEG ABEBE Comment on above: Performed By: #### 5 6031, 71099 ####[facility] [place] [address], [facility] Start: 06-28-2018 INTRODUCE OF OTH THE RAP SUBST INTO RESP TRACT, VIA OPENING TOMERIN ABEBE Start: 06-27-2018 EXCISION OF ABD SUBC U/FASCIA, OPEN APPROACH TOMERIN ABEBE Start: 06-27-2018 REPAIR SMALL INTESTI NE, OPEN APPROACH MEG ABEBE Plan of Treatment Date Care Activity Detail Author Start: 07-08-2025 Bacteria identified in Blood by Culture Blood Culture [facility] Start: 07-08-2025 [facility] Start: 03-07-2025 Bacteria identified in Urine by Culture Urine Culture [facility] Start: 03-07-2025 Urine culture [facility] Start: 2004 Pneumococcal Vaccine: 65+ Years (1 - PCV) Pneumococcal Vaccine: 65+ Years (1 - PCV) [facility] Payers Date Payer Category Payer Self-pay [id number] 2014 Private Health Insurance [facility] [id number] 1959 Medicare [id number] 1959 Self-pay [id number] 1959 Unknown 1959 Unknown [id number] 1939 Unknown [id number] 2.16.8 40.1.951988.3.579.2.647 1939 Unknown [id number] 2.16.8 40.1.029573.3.579.2.647 1939 Unknown [id number] 2.16.8 40.1.914691.3.579.2.647 1939 Unknown [id number] 2.16.84 0.1.955150.3.579.2.718 1939 Unknown [id number] 2.16.84 0.1.255849.3.579.2.593 1939 Unknown [id number] 2.16.84 0.1.288355.3.579.2.593 1939 Unknown [id number] 2.16.84 0.1.819544.3.579.2.593 1939 Unknown [id number] 2.16.84 0.1.444260.3.579.2.593 1939 Unknown [id number] 2.16.84 0.1.311718.3.579.2.593 1939 Unknown [id number] 2.16.84 0.1.291900.3.579.2.593 1939 Unknown [id number] 2.16.84 0.1.845724.3.579.2.593 1939 Unknown [id number] 2.16.84 0.1.675815.3.579.2.1259 1939 Unknown [id number] 2.16. 840.1.420278.3.579.2.1286 1939 Unknown [id number] 2.16. 840.1.795896.3.579.2.1286 1939 Unknown [id number] 2.16. 840.1.239843.3.579.2.1286 1939 Unknown [id number] 2.16. 840.1.045184.3.579.2.1286 1939 Unknown [id number] 2.16. 840.1.735076.3.579.2.1286 Medicare [id number] Unknown [id number] 2.16.8 40.1.395287.3.579.2.531 Unknown [id number] 2.16.8 40.1.023749.3.579.2.531 Social History Date Type Detail Facility Tobacco smoking status MNIS Tobacco smoking consumption unknown [facility] Start: 1940 Sex Assigned At Not on file N [facility] Gender identity Not on file [facility] are Start: 05-03-2024 Tobacco smoking status NHIS Ex-smoker (finding) [facility] Start: 1940 Sex Assigned At Female F [facility] Start: 03-09-2025 Sex Female (finding) [facility] Clinical Notes 10-17-2020 to 05-03-2024 Note Date & Type Note Facility 05-03-2024 Progress note Note Date/Time May 03, 2024 1:14pm [facility] [address] [place] [address] Wound Center Provider Note Signed Patient: Vidhya Giordano MR#: [id number] : 1940 Acct:[id number] Age/Sex: 83 / F Copies to: Kael M Hoy, MD Wendy Copsey, SCALLOP CUTTER MACHINE~ HPI Date of Visit Date of Visit: Date of Service: 05/03/2024 Time of Service: 13:12 Narrative HPI: Vidhya is an 81 year old female presenting to [facility] wound care program for afollow up [...] no change, orders the same as 01/13/ , patient and daughter still prefer to visit but do understand that this will not heal 05/19/23 stable again, was apparently dc'd from [facility] and so we will order suppliesfrom a [...] happy with this order, spoke about [facility] again and they will think about getting [...] Intensity: 7 Wound/Ulcer History Mode of Arrival/ Food Service Clerk: Family Assistive Device Used Today: Wheelchair Lives with:: Children Appetite Description: Within Normal Limits Who helps w/ dressing change?: Home Health Why Do You Need Help?: Can't Reach Ulcer, Limited mobility, Unsafe leave home byself and Taxing effort to leave home Smoking Status: Former smoker [facility] Medical History (Updated 07/14/23 @ 13:12 by [...] Full Bed Appearance: Beefy Red, Hypergranulation and Green Lane Percent of Wound Bed Granulated/Red: 100 Percent [...] Signed By: <Electronically signed by DG Scott> 05/03/24 1314 [facility] Work Phone: 1(761) 501-876704-24-2024 Progress note Author Wendy Scott [facility] March 01, 2024 2:57pm Note Date/Time March 01, 2024 2:5 8pm [facility] [address] [place] [address] Wound Center Provider Note Signed Patient: Vidhya Giordano MR#: [id number] : 1940 Acct:[id number] Age/Sex: 83 / F Copies to: MD Wendy Verdugo APRN~ HPI Date of Visit Date of Visit: Date of Service: 03/01/2024 Time of Service: 14:55 Narrative HPI: Vidhya is an 81 year old female presenting to [facility] wound care program for afollow up [...] stable again, was apparently dc'd from [facility] and so we will order suppliesfrom a [...] happy with this order, spoke about [facility] again and they will think about getting [...] the time Wound/Ulcer History Mode of Arrival/ Food Service Clerk: Family Assistive Device Used Today: Wheelchair Lives with:: Children Appetite Description: Within Normal Limits Who helps w/ dressing change?: Home Health Why Do You Need Help?: Can't Reach Ulcer, Limited mobility, Unsafe leave home byself and Taxing effort to leave home Smoking Status: Former smoker [facility] Medical History (Updated 07/14/23 @ 13:12 by [...] Thickness: Full Bed Appearance: Beefy Red and Green Lane Percent of Wound Bed Granulated/Red: 100 Percent [...] 11 Dictated By: Wendy Scott APRN DD/ 145 Signed By: <Electronically signed by DG Scott> 03/01/24 1457 [facility] Work Phone: 1([phone]) 899-477702-21-2024 Progress note Author Wendy Scott [facility] December 29, 2023 1:12pm Note Date/Time December 29, 2023 1:34pm [facility] [address] [place] [address] Wound Center Provider Note Signed Patient: Vidhya Giordano MR#: [id number] : 1940 Acct:[id number] Age/Sex: 83 / F Copies to: MD Wendy Verdugo APRN~ HPI Date of Visit Date of Visit: Date of Service: 12/29/2023 Time of Service: 13:10 Narrative HPI: Vidhya is an 81 year old female presenting to [facility] wound care program for afollow up [...] stable again, was apparently dc'd from [facility] and so we will order suppliesfrom a [...] Intensity: 0 Wound/Ulcer History Mode of Arrival/ Food Service Clerk: Family Assistive Device Used Today: Wheelchair Lives with:: Children Appetite Description: Within Normal Limits Who helps w/ dressing change?: Home Health Why Do You Need Help?: Can't Reach Ulcer, Limited mobility, Unsafe leave home byself and Taxing effort to leave home Smoking Status: Former smoker [facility] Medical History (Updated 07/14/23 @ 13:12 by [...] 10 mg tablet 10 mg PO DAILY 07/03/19 [History Confirmed 11/03/23] risperidone 0.25 mg tablet [...] Thickness: Full Bed Appearance: Beefy Red and Green Lane Percent of Wound Bed Granulated/Red: 100 Percent [...] 10 Dictated By: Wendy Scott APRN DD/ 09 Signed By: <Electronically signed by DG Scott> 12/29/23 1312 [facility] Work Phone: 1([phone]) 994-343702-05-2024 History of Present illness Narrative* ZORA Infante [...] Pt to return prn [id number] Progress note Author Wendy Scott [facility] November 03, 2023 1:09pm Note Date/Time November 03, 2023 1:09pm [facility] [address] [place] [address] Wound Center Provider Note Signed Patient: Vidhya Giordano MR#: [id number] : 1940 Acct:[id number] Age/Sex: 83 / F Copies to: Kael M Hoy, MD Wendy Copsey, SCALLOP CUTTER MACHINE~ HPI Date of Visit Date of Visit: Date of Service: 11/03/2023 Time of Service: 13:08 Narrative HPI: Vidhya is an 81 year old female presenting to [facility] wound care program for afollow up [...] no change, orders the same as 01/13/ , patient and daughter still prefer to visit but do understand that this will not heal 05/19/23 stable again, was apparently dc'd from [facility] and so we will order suppliesfrom a [...] Intensity: 0 Wound/Ulcer History Mode of Arrival/ Food Service Clerk: Family Assistive Device Used Today: Wheelchair Lives with:: Children Appetite Description: Within Normal Limits Who helps w/ dressing change?: Home Health Why Do You Need Help?: Can't Reach Ulcer, Limited mobility, Unsafe leave home byself and Taxing effort to leave home Smoking Status: Former smoker [facility] Medical History (Updated 07/14/23 @ 13:12 by [...] Thickness: Full Bed Appearance: Beefy Red and Green Lane Percent of Wound Bed Granulated/Red: 100 Percent [...] 8 Dictated By: Wendy Scott APRN DD/ 07 Signed By: <Electronically signed by DG Scott> 11/03/23 1309 [facility] Work Phone: 1([phone]) 791-653911-01-2023 Progress note Author Wendy Scott [facility] September 08, 2023 1:10pm Note Date/Time September 08, 2023 1 :10pm [facility] [address] [place] [address] Wound Center Provider Note Signed Patient: Vidhya Giordano MR#: [id number] : 1940 Acct:[id number] Age/Sex: 83 / F Copies to: MD Wendy Verdugo APRN~ HPI Date of Visit Date of Visit: Date of Service: 09/08/2023 Time of Service: 13:08 Narrative HPI: Vidhya is an 81 year old female presenting to [facility] wound care program for afollow up [...] stable again, was apparently dc'd from [facility] and so we will order suppliesfrom a [...] Intensity: 0 Wound/Ulcer History Mode of Arrival/ Food Service Clerk: Family Assistive Device Used Today: Wheelchair Lives with:: Children Appetite Description: Within Normal Limits Who helps w/ dressing change?: Home Health Why Do You Need Help?: Can't Reach Ulcer, Limited mobility, Unsafe leave home byself and Taxing effort to leave home Smoking Status: Former smoker [facility] Medical History (Updated 07/14/23 @ 13:12 by [...] 25 mg PO DAILY 05/10/19 [History Confirmed 09/06/23] valacyclovir 1 gram tablet 1,000 mg PO [...] Thickness: Full Bed Appearance: Beefy Red and Green Lane Percent of Wound Bed Granulated/Red: 100 Percent [...] <Electronically signed by DG Scott> 09/08/23 1310 [facility] Work Phone: 1(318) 210-550909-06-2023 Progress note Author Wendy Scott [facility] July 14, 2023 1:12pm Note Date/Time July 14, 2023 1:13pm [facility] [address] [place] [address] Wound Center Provider Note Signed Patient: Vidhya Giordano MR#: [id number] : 1940 Acct:[id number] Age/Sex: 83 / F Copies to: MD Wendy Verdugo APRN~ HPI Date of Visit Date of Visit: Date of Service: 07/14/2023 Time of Service: 13:10 Narrative HPI: Vidhya is an 81 year old female presenting to [facility] wound care program for afollow up [...] stable again, was apparently dc'd from [facility] and so we will order suppliesfrom a [...] Intensity: 0 Wound/Ulcer History Mode of Arrival/ Food Service Clerk: Family Assistive Device Used Today: Wheelchair Lives with:: Children Appetite Description: Within Normal Limits Who helps w/ dressing change?: Home Health Why Do You Need Help?: Can't Reach Ulcer, Limited mobility, Unsafe leave home byself and Taxing effort to leave home Smoking Status: Former smoker [facility] Medical History (Updated 07/14/23 @ 13:12 by [...] Thickness: Full Bed Appearance: Beefy Red and Green Lane Percent of Wound Bed Granulated/Red: 100 Percent [...] 12 Dictated By: Wendy Scott APRN DD/ 09 Signed By: <Electronically signed by DG Scott> 07/14/23 1312 [facility] Work Phone: 1([phone]) 712-129407-12-2023 Progress note Author Wendy Scott [facility] May 19, 2023 1:22pm Note Date/Time May 19, 2023 1:22 pm [facility] [address] [place] [address] Wound Center Provider Note Signed Patient: Vidhya Giordano MR#: [id number] : 1940 Acct:[id number] Age/Sex: 82 / F Copies to: MD Wendy Verdugo APRN~ HPI Date of Visit Date of Visit: Date of Service: 05/19/2023 Time of Service: 13:19 Narrative HPI: Vidhya is an 81 year old female presenting to [facility] wound care program for afollow up [...] stable again, was apparently dc'd from [facility] and so we will order suppliesfrom a dme supplier, orders the same since the daughter prefers it that way, 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, 8 week appt Subjective Pain Abdomen: Pain Intensity: 0 Wound/Ulcer History Mode of Arrival/ Food Service Clerk: Family Assistive Device Used Today: Wheelchair Lives with:: Children Appetite Description: Within Normal Limits Who helps w/ dressing change?: Home Health Why Do You Need Help?: Can't Reach Ulcer, Limited mobility, Unsafe leave home byself and Taxing effort to leave home Smoking Status: Former smoker [facility] Medical History (Updated 06/03/22 @ 11:55 by [...] wound) Thickness: Full Bed Appearance: Beefy Red, Green Lane and Hypergranulation Percent of Wound Bed Granulated/Red: [...] By: <Electronically signed by DG Scott> 05/19/23 7188 [facility] Work Phone: 1(235) 377-511505-17-2023 Progress note Author Wendy Scott [facility] March 24, 2023 1:44pm Note Date/Time March 24, 2023 1:44p m [facility] [address] [place] [address] Wound Center Provider Note Signed Patient: Vidhya Giordano MR#: [id number] : 1940 Acct:[id number] Age/Sex: 82 / F Copies to: MD Wendy Verdugo APRN~ HPI Date of Visit Date of Visit: Date of Service: 03/24/2023 Time of Service: 13:42 Narrative HPI: Vidhya is an 81 year old female presenting to [facility] wound care program for afollow up [...] from shingles Wound/Ulcer History Mode of Arrival/ Food Service Clerk: Family Assistive Device Used Today: Wheelchair Lives with:: Children Appetite Description: Within Normal Limits Who helps w/ dressing change?: Home Health Why Do You Need Help?: Can't Reach Ulcer, Limited mobility, Unsafe leave home byself and Taxing effort to leave home Smoking Status: Former smoker [facility] Medical History (Updated 06/03/22 @ 11:55 by [...] (Non-healing surgical wound) Thickness: Full Bed Appearance: Green Lane and Rolled Edges Percent of Wound Bed [...] 13 Dictated By: Wendy Scott APRN DD/ 41 Signed By: <Electronically signed by DG Scott> 03/24/23 1344 [facility] Work Phone: 1(863) 314-326903-08-2023 Progress note Author Wendy Scott [facility] January 13, 2023 1:07pm Note Date/Time January 13, 2023 1:08 pm [facility] [address] [place] [address] Wound Center Provider Note Signed Patient: Vidhya Giordano MR#: [id number] : 1940 Acct:[id number] Age/Sex: 82 / F Copies to: Kael Adkins MD Wendy Tyler, SCALLOP CUTTER MACHINE~ HPI Date of Visit Date of Visit: Date of Service: 01/13/2023 Time of Service: 13:06 Narrative HPI: Vidhya is an 81 year old female presenting to [facility] wound care program for afollow up [...] Intensity: 7 Wound/Ulcer History Mode of Arrival/ Food Service Clerk: Family Assistive Device Used Today: Wheelchair Lives with:: Children Appetite Description: Within Normal Limits Who helps w/ dressing change?: Home Health Why Do You Need Help?: Can't Reach Ulcer, Limited mobility, Unsafe leave home byself and Taxing effort to leave home Smoking Status: Former smoker [facility] Medical History (Updated 06/03/22 @ 11:55 by [...] (Non-healing surgical wound) Thickness: Full Bed Appearance: Green Lane and Rolled Edges Percent of Wound Bed [...] By: <Electronically signed by DG Scott> 01/13/23 1307 [facility] Work Phone: 1([phone]) 614-761801-11-2023 Progress note Author Wendy Scott [facility] November 18, 2022 11:26am Note Date/Time November 18, 2022 1 1:27am [facility] [address] [place] [address] Wound Center Provider Note Signed Patient: Vidhya Giordano MR#: [id number] : 1940 Acct:[id number] Age/Sex: 82 / F Copies to: MD Wendy Verdugo APRN~ HPI Date of Visit Date of Visit: Date of Service: 11/18/2022 Time of Service: 11:25 Narrative HPI: Vidhya is an 81 year old female presenting to [facility] wound care program for afollow up [...] from shingles Wound/Ulcer History Mode of Arrival/ Food Service Clerk: Family Assistive Device Used Today: Wheelchair Lives with:: Children Appetite Description: Within Normal Limits Who helps w/ dressing change?: Home Health Why Do You Need Help?: Can't Reach Ulcer, Limited mobility, Unsafe leave home byself and Taxing effort to leave home Smoking Status: Former smoker [facility] Medical History (Updated 06/03/22 @ 11:55 by [...] (Non-healing surgical wound) Thickness: Full Bed Appearance: Green Lane and Rolled Edges Percent of Wound Bed [...] By: <Electronically signed by DG Scott> 11/18/221125 [facility] Work Phone: 1(123) 256-102211-16-2022 Progress note Author Wendy Scott [facility] September 23, 2022 11:25am Note Date/Time September 23, 2022 11:25am [facility] [address] [place] [address] Wound Center Provider Note Signed Patient: Vidhya Giordano MR#: [id number] : 1940 Acct:[id number] Age/Sex: 82 / F Copies to: MD Wendy Verdugo, SCALLOP CUTTER MACHINE~ HPI Date of Visit Date of Visit: Date of Service: 09/23/2022 Time of Service: : Narrative HPI: Vidhya is an 81 year old female presenting to [facility] wound care program for afollow up [...] Intensity: 0 Wound/Ulcer History Mode of Arrival/ Food Service Clerk: Family Assistive Device Used Today: Wheelchair Lives with:: Children Appetite Description: Within Normal Limits Who helps w/ dressing change?: Home Health Why Do You Need Help?: Can't Reach Ulcer, Limited mobility, Unsafe leave home byself and Taxing effort to leave home Smoking Status: Former smoker [facility] Medical History (Updated 06/03/22 @ 11:55 by [...] (Non-healing surgical wound) Thickness: Full Bed Appearance: Green Lane and Rolled Edges Percent of Wound Bed [...] By: <Electronically signed by DG Scott> 09/23/22 [facility] Work Phone: 1(963) 966-516309-21-2022 Progress note Author Wendy Scott [facility] July 29, 2022 11:35am Note Date/Time July 29, 2022 11:34am [facility] [address] [place] [address] Wound Center Provider Note Signed Patient: Vidhya Giordano MR#: [id number] : 1940 Acct:[id number] Age/Sex: 82 / F Copies to: MD Wendy Verdugo APRN~ HPI Date of Visit Date of Visit: Date of Service: 07/29/2022 Time of Service: 11:25 Narrative HPI: Vidhya is an 81 year old female presenting to [facility] wound care program for afollow up [...] Intensity: 6 Wound/Ulcer History Mode of Arrival/ Food Service Clerk: Family Assistive Device Used Today: Wheelchair Lives with:: Children Appetite Description: Within Normal Limits Who helps w/ dressing change?: Home Health Why Do You Need Help?: Can't Reach Ulcer, Limited mobility, Unsafe leave home byself and Taxing effort to leave home Smoking Status: Former smoker [facility] Medical History (Updated 06/03/22 @ 11:55 by [...] wound) Thickness: Full Bed Appearance: Beefy Red, Green Lane and Rolled Edges Percent of Wound Bed [...] 10 Dictated By: Wendy Scott APRN DD/ 1125 Signed By: <Electronically signed by DG Scott> 07/29/22 1135 [facility] Work Phone: [phone]) [phone] Progress note Author Wendy Scott [facility] June 03, 2022 11:56am Note Date/Time June 03, 2022 11:5 5am [facility] [address] [place] [address] Wound Center Provider Note Signed Patient: Vidhya Giordano MR#: [id number] : 1940 Acct:[id number] Age/Sex: 81 / F Copies to: MD Wendy Verdugo, SCALLOP CUTTER MACHINE~ HPI Date of Visit Date of Visit: Date of Service: 06/03/2022 Time of Service: 11:54 Narrative HPI: Vidhya is an 81 year old female presenting to [facility] wound care program for afollow up [...] from shingles Wound/Ulcer History Mode of Arrival/ Food Service Clerk: Family Assistive Device Used Today: Wheelchair Lives with:: Children Appetite Description: Within Normal Limits Who helps w/ dressing change?: Home Health Why Do You Need Help?: Can't Reach Ulcer, Limited mobility, Unsafe leave home byself and Taxing effort to leave home Smoking Status: Former smoker [facility] Medical History (Updated 06/03/22 @ 11:55 by [...] wound) Thickness: Full Bed Appearance: Beefy Red, Green Lane and Hypergranulation Percent of Wound Bed Granulated/Red: [...] By: <Electronically signed by DG Scott> 06/03/22 1156 [facility] Work Phone: [phone]) 368-696806-01-2022 Progress note Author Wendy Scott [facility] April 08, 2022 1:14pm Note Date/Time April 08, 2022 1:14p [facility] [address] [place] [address] Wound Center Provider Note Signed Patient: Vidhya Giordano MR#: [id number] : 1940 Acct:[id number] Age/Sex: 81 / F Copies to: MD Wendy Verdugo APRN~ HPI Date of Visit Date of Visit: Date of Service: 04/08/2022 Time of Service: 13:11 Narrative HPI: Vidhya is an 81 year old female presenting to [facility] wound care program for afollow up [...] Intensity: 0 Wound/Ulcer History Mode of Arrival/ Food Service Clerk: Family Assistive Device Used Today: Wheelchair Lives with:: Children Appetite Description: Within Normal Limits Who helps w/ dressing change?: Home Health Why Do You Need Help?: Can't Reach Ulcer, Limited mobility, Unsafe leave home byself and Taxing effort to leave home Smoking Status: Former smoker [facility] Medical History (Updated 04/08/22 @ 13:13 by [...] By: <Electronically signed by DG Scott> 04/08/22 [facility] Work Phone: [phone]) [phone] Progress note Author Wendy Scott [facility] February 11, 2022 1:50pm Note Date/Time February 11, 2022 1:50 pm [facility] [address] [place] [address] Wound Center Provider Note Signed Patient: Vidhya Giordano MR#: [id number] : 1940 Acct:[id number] Age/Sex: 81 / F Copies to: MD Wendy Verdugo APRN~ HPI Date of Visit Date of Visit: Date of Service: 02/11/2022 Time of Service: 13:46 Narrative HPI: Vidhya is an 81 year old female presenting to [facility] wound care program for afollow up [...] from shingles Wound/Ulcer History Mode of Arrival/ Food Service Clerk: Family Assistive Device Used Today: Wheelchair Lives with:: Children Appetite Description: Within Normal Limits Who helps w/ dressing change?: Home Health Why Do You Need Help?: Can't Reach Ulcer, Limited mobility, Unsafe leave home byself and Taxing effort to leave home Smoking Status: Former smoker [facility] Medical History (Updated 01/02/21 @ 15:16 by [...] Thickness: Full Bed Appearance: Beefy Red and Green Lane Percent of Wound Bed Granulated/Red: 90 Percent [...] By: <Electronically signed by DG Scott> 02/11/22 6552 [facility] Work Phone: 1(240) 483-812202-09-2022 Progress note Author Wendy Scott [facility] December 17, 2021 2:16pm Note Date/Time December 17, 2021 2 :16pm [facility] [address] [place] [address] Wound Center Provider Note Signed Patient: Vidhya Giordano MR#: [id number] : 1940 Acct:[id number] Age/Sex: 81 / F Copies to: MD Wendy Verdugo APRN~ HPI Date of Visit Date of Visit: Date of Service: 12/17/2021 Time of Service: 14:13 Narrative HPI: Vidhya is an 81 year old female presenting to [facility] wound care program for afollow up [...] is there Wound/Ulcer History Mode of Arrival/ Food Service Clerk: Family Assistive Device Used Today: Wheelchair Lives with:: Children Appetite Description: Within Normal Limits Who helps w/ dressing change?: Home Health Why Do You Need Help?: Can't Reach Ulcer, Limited mobility, Unsafe leave home byself and Taxing effort to leave home Smoking Status: Former smoker [facility] Medical History (Updated 01/02/21 @ 15:16 by [...] Thickness: Full Bed Appearance: Beefy Red and Green Lane Percent of Wound Bed Granulated/Red: 100 Percent [...] 10 Dictated By: Wendy Scott APRN DD/ 1413 Signed By: <Electronically signed by DG Scott> 12/17/21 1416 [facility] Work Phone: 1(461) 565-710811-29-2021 Progress note Author Wendy Scott [facility] October 06, 2021 11:31am Note Date/Time October 06, 2021 11:31am [facility] [address] [place] [address] Wound Center Provider Note Signed Patient: Vidhya Giordano MR#: [id number] : 1940 Acct:[id number] Age/Sex: 81 / F Copies to: MD Wendy Verdugo APRN~ HPI Date of Visit Date of Visit: Date of Service: 10/06/2021 Time of Service: 11:29 Narrative HPI: Vidhya is an 81 year old female presenting to [facility] wound care program for afollow up [...] is there Wound/Ulcer History Mode of Arrival/ Food Service Clerk: Family Assistive Device Used Today: Wheelchair Lives with:: Children Appetite Description: Within Normal Limits Who helps w/ dressing change?: Home Health Why Do You Need Help?: Can't Reach Ulcer, Limited mobility, Unsafe leave home byself and Taxing effort to leave home Smoking Status: Former smoker [facility] Medical History (Updated 01/02/21 @ 15:16 by [...] Rash Sulfa (Sulfonamide Antibiotics) Allergy (Verified 06/23/21 11:) Rash Wound/Ulcer Abdomen: Type: Surgical Wound (Non-healing surgical wound) Thickness: Full Bed Appearance: Beefy Red and Green Lane Percent of Wound Bed Granulated/Red: 100 Percent [...] 15 Dictated By: Wendy Scott APRN DD/ 112 Signed By: <Electronically signed by DG Scott> 10/06/21 1131 [facility] Work Phone: 1([phone]) 691-932410-11-2021 Progress note Author Wendy Scott [facility] August 18, 2021 11:42am Note Date/Time August 18, 2021 1 1:42am [facility] [address] [place] [address] Wound Center Provider Note Signed Patient: Vidhya Giordano MR#: [id number] : 1940 Acct:[id number] Age/Sex: 81 / F Copies to: MD Wendy Verdugo APRN~ HPI Date of Visit Date of Visit: Date of Service: 08/18/2021 Time of Service: 11:37 Narrative HPI: Vidhya is an 81 year old female presenting to [facility] wound care program for afollow up [...] is there Wound/Ulcer History Mode of Arrival/ Food Service Clerk: Family Assistive Device Used Today: Wheelchair Lives with:: Children Appetite Description: Within Normal Limits Who helps w/ dressing change?: Home Health Why Do You Need Help?: Can't Reach Ulcer, Limited mobility, Unsafe leave home byself and Taxing effort to leave home Smoking Status: Former smoker [facility] Medical History (Updated 01/02/21 @ 15:16 by [...] mg(1,500 mg)-vitamin D3 800 unit chewable tablet ([id number] plus D) 1 tab PO DAILY 12/23/17 [...] Thickness: Full Bed Appearance: Beefy Red and Green Lane Percent of Wound Bed Granulated/Red: 100 Percent [...] <Electronically signed by DG Scott> 08/18/21 1142 [facility] Work Phone: 1(635) 707-497308-16-2021 Progress note Author Wendy Scott [facility] June 23, 2021 11:37am Note Date/Time June 23, 2021 11 :37am [facility] [facility] [address] [place] [address] Wound Center Provider Note Signed Patient: Vidhya Giordano MR#: [id number] : 1940 Acct:[id number] Age/Sex: 81 / F Copies to: MD Wendy Verdugo APRN~ HPI Date of Visit Date of Visit: Date of Service: 06/23/2021 Time of Service: 11:35 Narrative HPI: Vidhya is an 81 year old female presenting to [facility] wound care program for a follow [...] is there Wound/Ulcer History Mode of Arrival/ Food Service Clerk: Family Assistive Device Used Today: Wheelchair Lives with:: Children Appetite Description: Within Normal Limits Who helps w/ dressing change?: Home Health Why Do You Need Help?: Can't Reach Ulcer, Limited mobility, Unsafe leave home byself and Taxing effort to leave home Smoking Status: Former smoker [facility] Medical History (Updated 01/02/21 @ 15:16 by [...] mg(1,500 mg)-vitamin D3 800 unit chewable tablet (Yevpfces935 plus D) 1 tab PO DAILY 12/23/17 [...] Thickness: Full Bed Appearance: Beefy Red and Green Lane Percent of Wound Bed Granulated/Red: 100 Percent [...] 15 Dictated By: Wendy Scott APRN DD/ 34 Signed By: <Electronically signed by DG Scott> 06/23/21 1137 [facility] Work Phone: 1(200) 753-220506-21-2021 Progress note Author Wendy Scott [facility] April 28, 2021 11:22am Note Date/Time April 28, 2021 11:2 2am [facility] [address] [place] [address] Wound Center Provider Note Signed Patient: Vidhya Giordano MR#: [id number] : 1940 Acct:[id number] Age/Sex: 80 / F Copies to: MD Wendy Verdugo APRN~ HPI Date of Visit Date of Visit: Date of Service: 04/28/2021 Time of Service: 11:18 Narrative HPI: Vidhya is an 80 year old female presenting to [facility] wound care program for a follow [...] Intensity: 0 Wound/Ulcer History Mode of Arrival/ Food Service Clerk: Family Assistive Device Used Today: Wheelchair Lives with:: Children Appetite Description: Within Normal Limits Who helps w/ dressing change?: Home Health Why Do You Need Help?: Can't Reach Ulcer, Limited mobility, Unsafe leave home byself and Taxing effort to leave home Smoking Status: Former smoker [facility] Medical History (Updated 01/02/21 @ 15:16 by [...] Thickness: Full Bed Appearance: Beefy Red and Green Lane Percent of Wound Bed Granulated/Red: 100 Percent [...] <Electronically signed by DG Scott> 04/28/21 1122 [facility] Work Phone: 1(715) 309-654805-10-2021 Progress note Author Wendy Scott [facility] March 17, 2021 11:35am Note Date/Time March 17, 2021 11:35 am [facility] [address] [place] [address] Wound Center Provider Note Signed Patient: Vidhya Giordano MR#: [id number] : 1940 Acct:[id number] Age/Sex: 80 / F Copies to: MD Wendy Verdugo APRN~ HPI Date of Visit Date of Visit: Date of Service: 03/17/2021 Time of Service: 11:31 Narrative HPI: Vidhya is an 80 year old female presenting to [facility] wound care program for a follow [...] is there Wound/Ulcer History Mode of Arrival/ Food Service Clerk: Family Assistive Device Used Today: Wheelchair Lives with:: Children Appetite Description: Within Normal Limits Who helps w/ dressing change?: Home Health Why Do You Need Help?: Can't Reach Ulcer, Limited mobility, Unsafe leave home byself and Taxing effort to leave home [facility] Medical History (Updated 01/02/21 @ 15:16 by [...] Thickness: Full Bed Appearance: Beefy Red and Green Lane Percent of Wound Bed Granulated/Red: 100 Percent [...] <Electronically signed by DG Scott> 03/17/21 1135 [facility] Work Phone: 1(769) 679-737303-17-2021 Progress note Author Wendy Scott [facility] January 22, 2021 1:13pm Note Date/Time January 22, 2021 1:1 3pm [facility] [address] [place] [address] Wound Center Provider Note Signed Patient: Vidhya Giordano MR#: [id number] : 1940 Acct:[id number] Age/Sex: 80 / F Copies to: MD Wendy Verdugo APRN~ HPI Date of Visit Date of Visit: Date of Service: 01/22/2021 Time of Service: 13:11 Narrative HPI: Vidhya is an 80 year old female presenting to [facility] wound care program for a follow [...] is there Wound/Ulcer History Mode of Arrival/ Food Service Clerk: Family Assistive Device Used Today: Wheelchair Lives with:: Children Appetite Description: Within Normal Limits Who helps w/ dressing change?: Home Health Why Do You Need Help?: Can't Reach Ulcer, Limited mobility, Unsafe leave home byself and Taxing effort to leave home Smoking Status: Former smoker [facility] Medical History (Updated 01/02/21 @ 15:16 by [...] Thickness: Full Bed Appearance: Beefy Red and Green Lane Percent of Wound Bed Granulated/Red: 100 Percent [...] Signed By: <Electronically signed by DG Scott> 01/22/21 [facility] Work Phone: 1(573) 265-327602-25-2021 Progress note Author Nichole Giordano [facility] January 02, 2021 3:18pm Note Date/Time January 02, 2021 3:15pm [facility] [address] [place] [address] Wound Center Provider Note Signed Patient: Vidhya Giordano MR#: [id number] : 1940 Acct:[id number] Age/Sex: 80 / F Copies to: MD Nichole Verdugo APRN~ HPI Date of Visit Date of Visit: Date of Service: 01/02/2021 Time of Service: 15:14 Narrative HPI: Vidhya is an 80 year old female presenting to [facility] wound care program for an initial [...] is there Wound/Ulcer History Mode of Arrival/ Food Service Clerk: Family Assistive Device Used Today: Wheelchair Lives with:: Children Appetite Description: Within Normal Limits Who helps w/ dressing change?: Home Health Why Do You Need Help?: Can't Reach Ulcer, Limited mobility, Unsafe leave home byself and Taxing effort to leave home Smoking Status: Former smoker [facility] Medical History (Updated 01/02/21 @ 15:16 by [...] Thickness: Full Bed Appearance: Beefy Red and Green Lane Percent of Wound Bed Granulated/Red: 100 Percent [...] 20 Dictated By: Nichole Giordano APRN DD/ 151 Signed By: <Electronically signed by DG Giordano> 01/02/21 [facility] Work Phone: 1(799) 292-686401-07-2021 Progress note Author Wendy Scott [facility] November 14, 2020 8:16am Note Date/Time November 14, 2020 8: 16am [facility] [address] [place] [address] Wound Center Provider Note Signed Patient: Vidhya Giordano MR#: [id number] : 1940 Acct:[id number] Age/Sex: 80 / F Copies to: MD Wendy Verdugo APRN~ HPI Date of Visit Date of Visit: Date of Service: 11/14/2020 Time of Service: 08:14 Narrative HPI: Vidhya is an 80 year old female presenting to [facility] wound care program for a follow [...] is there Wound/Ulcer History Mode of Arrival/ Food Service Clerk: Family Assistive Device Used Today: Wheelchair Lives with:: Children Appetite Description: Within Normal Limits Who helps w/ dressing change?: Home Health Why Do You Need Help?: Can't Reach Ulcer, Limited mobility, Unsafe leave home byself and Taxing effort to leave home Smoking Status: Former smoker [facility] Medical History (Updated 11/14/20 @ 08:16 by [...] Wound/Ulcer Abdomen: Bed Appearance: Beefy Red and Green Lane Percent of Wound Bed Granulated/Red: 100 Percent [...] By: <Electronically signed by DG Scott> 11/14/20815 [facility] Work Phone: 1(601) 551-156812-10-2020 Progress note Author Wendy Scott [facility] October 17, 2020 8:39am Note Date/Time October 17, 2020 8:35am [facility] [address] [place] [address] Wound Center Provider Note Signed Patient: Vidhya Giordano MR#: [id number] : 1940 Acct:[id number] Age/Sex: 80 / F Copies to: MD Wendy Verdugo APRN~ HPI Date of Visit Date of Visit: Date of Service: 10/17/2020 Time of Service: 08:32 Narrative HPI: Vidhya is an 80 year old female presenting to [facility] wound care program for an initial [...] is there Wound/Ulcer History Mode of Arrival/ Food Service Clerk: Family Assistive Device Used Today: Wheelchair Lives with:: Children Appetite Description: Within Normal Limits Who helps w/ dressing change?: Home Health Why Do You Need Help?: Can't Reach Ulcer, Limited mobility, Unsafe leave home byself and Taxing effort to leave home Smoking Status: Former smoker [facility] Medical History (Updated 10/17/20 @ 08:34 by [...] 05/10/19 [History Confirmed 10/17/20] acetaminophen 650 mg [place] Q6H PRN 05/10/19 [History Confirmed 10/17/20] allopurinol [...] Rash Wound/Ulcer Abdomen: Bed Appearance: Beefy Red, Green Lane and Hypergranulation Percent of Wound Bed Granulated/Red: [...] 20 Dictated By: Wendy Scott APRN DD/ Signed By: <Electronically signed by DG Scott> 10/17/20 0839 [facility] Work Phone: Evaluation note* Diagnosis Bilateral impacted cerumen- Primary Impacted cerumen [facility] this encounter [facility] Diagnosis Onset Date Resolution Status Dementia chronic Gastrointestinal fistula chr onic Inflammation chronic Limited mobility chronic Obesity chronic [id number] chronic Surgical wound, non healing chronic Candidiasis resolved [facility] Work Phone: Evaluation noteNo assessment information available [facility] Work Phone: Reason for referral (narrative)No reason for referral [facility] Work Phone: Summary Purpose Family History No Family History Records Found Relationship Condition Age at Onset Recorded Date/T scott mother Malignant neoplasm Unknown daughter Malignant neoplasm Unknown sister Malignant neoplasm Unknown Advance Directives No Advanced Directives Records Found Advance Directive Response Recorded Date/ Time Advance Directives No December 11:26am Hospital Course Note MR[id number] Admitted: 06/27/2018 Discharged: 07/19/2018 Date of : 1940 Physician: Meg Abebe M.D. DISCHARGE SUMMARYDISCHARGE ATTENDING: Meg Abebe M.D.PRINCIPAL DIAGNOSIS: Enterocutaneous fistula.SECONDARY DIAGNOSES: Depression, hypertension, diabetes mellitus,neuropathy.PROCEDURES PERFORMED AND TREATMENT RENDERED: The patient is a [id number] with a history of ventral hernia repair. [...] Dementia Gastrointestinal fistula Inflammation Limited mobility Obesity [id number] Surgical wound, non healing Candidiasis Chief Complaint Admit Date Unknown March 07, 2025 7:3 6am Chief Complaint Admit Date Unknown July 08, 2025 12 :04pm Additional Source Comments INFORMATION SOURCE (unrecogn ized section and content) DATE CREATED AUTHOR 05/02/2018 Thi bowers DATE CREATED AUTHOR AUTHOR'S ORGANIZ ATION 10/02/2018 [facility] DATE CREATED AUTHOR AUTHOR'S ORGANIZ ATION 09/01/2022 [facility] DATE CREATED AUTHOR AUTHOR'S ORGANIZ ATION 01/31/2023 [facility] DATE CREATED AUTHOR AUTHOR'S ORGANIZ ATION 06/24/2024 [facility] EPIC DATE CREATED AUTHOR AUTHOR'S ORGANIZ ATION 06/18/2025 [facility] DATE CREATED AUTHOR AUTHOR'S ORGANIZ ATION 07/09/2025 [facility] DATE CREATED AUTHOR AUTHOR'S ORGANIZ ATION 07/10/2025 [facility] Care Teams (unrecognized sec tion and content) Hotel Or Motel Manager Relationship Specialty Start Date End Date Kael Adkins MD [address] [facility] [place] [phone] PCP - General Family Medicine 12/13/23 Team [...] March 07, 2025 End: March 07, 2025 Team Status: Inactive Member Role Status Dates Jackelyn Arreola MD Attending Provider Active Sta rt: July 08, 2025 End: July 08, 2025 Goals (unrecognized section and content) Goals may be documented in a n alternate sectionGoals may be documented in an alternate sectionGoals may be documented in an [...] BE BASED ON THE PRIMARY CLINICAL RECORDS. [facility]. provides no warranty or guarantee of the accuracy or completeness of information in this document.
--- OUTSIDE RECORDS SUMMARY | 2025-07-12 00:43 | XMS_ITS | Encounter Summary ---
Author Organization [facility] Address [address], [address] [place] [address] Care Team Providers Care Coal Picker Name Role Phone Kalin Santos DO Primary Care Provider Unavaila ble Reason for Visit * Reason Comments Medication Refill Encounter Details Date Type Department Care Team (Late st Contact Info) Description 07/05/2012 Refill [facility] [address] [place] [phone] Antoni Anne MD [address] [place] [address] Medication Refill Social History Tobacco Use Types [...] documented as of this encounter Care Teams Coal Picker Relationship Specialty Start Date End Date Kalin Santos DO [address] [place] [address] PCP - General 06/22/16 documented as of this encounter
--- OUTSIDE RECORDS SUMMARY | 2025-07-12 00:43 | XMS_ITS | Encounter Summary ---
Author Organization [facility] Address [address] [place] [address] Care Team Providers Care Conservation Worker Name Role Phone Greg Adkins MD Primary Care Provider [phone] Encounter Details Date Type Department Care Team (Late st Contact Info) Description 04/11/2025 Abstract [facility] [address] [facility] [address] [place] [phone] Unallocated, [facility] [address] [place] [address] Social History Tobacco Use Types Packs/Day Years Used Date Smoking Tobacco: Never Assessed Comments Unknown Sex and Gender Information Value Date Recorded Sex Assigned at Not on file Legal Sex Female 6:38 PM EDT Gender Identity Not on file Sexual Orientation Not on file documented as of this encounter Plan of Treatment Not on file documented as of this encounter Visit Diagnoses Not on filedocumented in this encounter Care Teams Conservation Worker Relationship Specialty Start Date End Date Greg Adkins MD PCP - General Family Medicine 12/13/23 documented as of this encounter
--- OUTSIDE RECORDS SUMMARY | 2025-07-12 00:43 | XMS_ITS | Encounter Summary ---
Author Organization [employer] Address [id number] [address] [place] [address] Care Team Providers Care Molecular Physicist Name Role Phone Provider, Colt THOMAS Primary Care Provider Un available Encounter Details Date Type Department Care Team (Late st Contact Info) Description 07/09/2025 Orders Only [facility] [address] [place] [phone] Transcribe, Orders Support User Pain (Primary Dx) Social History Tobacco Use Types Packs/Day Years [...] on file documented as of this encounter Results * X-ray chest 1 view (07/08/2025 1:55 PM EDT) us Scanning Provider External IMG DIAGNOSTIC IMAGIN G ORDERABLES Final Result * CT cervical spine without contrast (07/08/2025 11:40 AM EDT) us Scanning Provider External IMG CT ORDERABLES Fin al Result * CT brain without contrast stroke alert (07/08/2025 11:35 AM EDT) us Scanning Provider External IMG CT ORDERABLES Fin al Result documented in this encounter Visit Diagnoses Diagnosis Pain- Primary Generalized pain documented in this encounter Care Teams Molecular Physicist Relationship Specialty Start Date End Date Provider, MD Colt PCP - General 01/05/13 documented as of this encounter
--- OUTSIDE RECORDS SUMMARY | 2025-07-12 00:43 | XMS_ITS | Encounter Summary ---
Author Organization [employer] Address [id number] [address] [place] [address] Care Team Providers Care Space Control Agent Name Role Phone Provider, Colt THOMAS Primary Care Provider Un available Encounter Details Date Type Department Care Team (Late st Contact Info) Description 03/20/2024 Orders Only [facility] [address] [place] [address] Ref Prov, [place] [address] Social History Tobacco Use Types Packs/Day Years [...] on filedocumented in this encounter Care Teams Space Control Agent Relationship Specialty Start Date End Date ProviderColt MD PCP - General 01/05/13 documented as of this encounter
--- OUTSIDE RECORDS SUMMARY | 2025-07-12 00:43 | XMS_ITS | Encounter Summary ---
Author Organization [facility] Address [address], [address] [place] [address] Care Team Providers Care Thoracic Medicine Physician Name Role Phone Kalin Santos DO Primary Care Provider Unavaila ble Encounter Details Date Type Department Care Team (Late st Contact Info) Description 05/12/2016 PAT Telephone STV Pre-Admit Testing [address] [place] [address] Marci Canchola RN Social History Tobacco Use [...] documented as of this encounter Care Teams Thoracic Medicine Physician Relationship Specialty Start Date End Date Kalin Santos DO [address] [place] [address] PCP - General 06/22/16 documented as of this encounter
--- OUTSIDE RECORDS SUMMARY | 2025-07-12 00:43 | XMS_ITS | Encounter Summary ---
Author Organization [facility] Address [address] [place] [address] Care Team Providers Care District Court Administrator Name Role Phone Greg Adkins MD Primary Care Provider [phone] Encounter Details Date Type Department Care Team (Late st Contact Info) Description 03/24/2023 Abstract [facility] [address] [phone] Get Lin MD [address] [address] Social History Tobacco Use Types Packs/Day Years [...] on filedocumented in this encounter Care Teams District Court Administrator Relationship Specialty Start Date End Date Greg Adkins MD PCP - General Family Medicine 12/13/23 documented as of this encounter
--- OUTSIDE RECORDS SUMMARY | 2025-07-12 00:43 | XMS_ITS | Clinical Summary ---
Author Organization [facility] Address [address], [address] [place] [address] Care Team Providers Care Outside Operator Name Role Phone Kalin Santos DO [...] Indicated MRSA Comment:Gladys-06/23/16 06/24/2016 06/24/2016 Insurance [address] [place] [address] [employer] MEDICARE A[employer] MEDICARE [facility] [address] [facility] [address] Advance Directives Documents on File Type Date Recorded Patient Textile Pin Worker Expl anation [employer] Machine Operator 02/03/2016 10:12 AM * Full Code (Latest [...] 2:46 PM 02/04/2016 6:35 PM Care Teams Outside Operator Relationship Specialty Start Date End Date Kalin Santso DO [address] [place] [address] PCP - General 06/22/16
--- OUTSIDE RECORDS SUMMARY | 2025-07-12 00:43 | XMS_ITS | Encounter Summary ---
Author Organization [facility] Address [address], [address] [place] [address] Care Team Providers Care First Aid Nurse Name Role Phone Kalin Snatos DO Primary Care Provider Unavaila ble Reason for Visit * Reason Comments Medication Refill Encounter Details Date Type Department Care Team (Late st Contact Info) Description 06/26/2012 Refill [facility] [address] [address] [place] [phone] Antoni Anne MD [address] [place] [address] Medication Refill Social History Tobacco Use Types [...] documented as of this encounter Care Teams First Aid Nurse Relationship Specialty Start Date End Date Kalin Santos DO [address] [place] [address] PCP - General 06/22/16 documented as of this encounter
--- OUTSIDE RECORDS SUMMARY | 2025-07-12 00:43 | XMS_ITS | Encounter Summary ---
Author Organization [facility] Address [address], [address] [place] [address] Care Team Providers Care Hair Spinning Machine Operator Name Role Phone Kalin Santos DO Primary Care Provider Unavaila ble Reason for Visit * Reason Comments Medication Refill Encounter Details Date Type Department Care Team (Late st Contact Info) Description 11/15/2011 Refill [facility] [address] [place] [phone] Antoni Anne MD [address] [place] [address] Medication Refill Social History Tobacco Use Types [...] documented as of this encounter Care Teams Hair Spinning Machine Operator Relationship Specialty Start Date End Date Kalin Santos DO [address] [place] [address] PCP - General 06/22/16 documented as of this encounter
--- OUTSIDE RECORDS SUMMARY | 2025-07-12 00:43 | XMS_ITS | Encounter Summary ---
Author Organization [facility] [employer]) [facility] tem Address [id number] [place] [address] Care Team Providers Care Central Office Operator Supervisor Name Role Phone Provider, Conversion Primary Care Provider Un available Encounter Details Date Type Department Care Team (Late st Contact Info) Description 03/05/2025 Lab Requisition [facility] - Lab [address] [place] [phone] Atiya Srivastava, POT FIRER-TRUSS BUILDER [address] [place] [phone] Essential (primary) hypertension Social History Tobacco Use [...] - 146 mmol/L 03/05/2025 12:29 PM EDT [facility] POTASSIUM 6.3(HH) 3.5 - 5.0 mmol/L 03/05/2025 12:29 PM EDT [facility] CHLORIDE 103 98 - 109 mmol/L 03/05/2025 12:29 PM EDT [facility] CARBON DIOXIDE 24 22 - 32 mmol/L 03/05/2025 12:29 PM EDT [facility] ANION GAP 8 5 - 15 mmol/L 03/05/2025 12:29 PM EDT [facility] BLOOD UREA NITROGEN 30(H) 5 - 27 mg/dL 03/05/2025 12:29 PM EDT [facility] CREATININE 2.14(H) 0.40 - 1.00 mg/dL 03/05/2025 12:29 PM EDT [facility] Comment:METHOD TRACEABLE TO IDMS STANDARD GLUCOSE 102(H) 65 - 99 mg/dL 03/05/2025 12:29 PM EDT [facility] CALCIUM 9.4 8.5 - 10.5 mg/dL 03/05/2025 12:29 PM EDT [facility] TOTAL PROTEIN 7.0 6.0 - 8.0 g/dL 03/05/2025 12:29 PM EDT [facility] ALBUMIN 4.1 3.2 - 5.3 g/dL 03/05/2025 12:29 PM EDT [facility] ALKALINE PHOSPHATASE 76 39 - 130 U/L 03/05/2025 12:29 PM EDT [facility] AST 21 <=41 U/L 03/05/2025 12:29 PM EDT [facility] ALT 18 <=31 U/L 03/05/2025 12:29 PM EDT [facility] BILIRUBIN,TOTAL 0.6 0.3 - 1.2 mg/dL 03/05/2025 12:29 PM EDT [facility] EGFR Non-Race Dependent 22(L) >=60 ml/min/1.7 3sq.m 03/05/2025 12:29 PM EDT [facility] Comment: Reported eGFR is based on the CKD-EPI 2020 equation that does not use a race coefficient. Blood Venous blood / Unknown 03/05/2025 10:30 AM EDT 03/05/2025 11:42 AM EDT us Atiya Srivastava POT FIRER-TRUSS BUILDER LAB BLOOD ORDERABLES Fi nal Result [facility] [address] [place] [address], * Thyroid profile includes TSH FT4 (03/05/2025 10:30 AM EDT) FREE T4 0.93 0.61 - 1.60 ng/dL 03/05/2025 12:24 PM EDT [facility] TSH 2.21 0.49 - 4.67 uIU/mL 03/05/2025 12:24 PM EDT [facility] Blood Venous blood / Unknown 03/05/2025 10:30 AM EDT 03/05/2025 11:42 AM EDT Atiya Srivastava POT FIRER-[facility] LAB BLOOD ORDERABLES Fi nal Result [facility] [address] [place] [address], [place] * Insulin (03/05/2025 10:30 AM EDT) INSULIN 19.48 1.00 - 23.00 uIU/mL 03/05/2025 8:10 PM EDT [facility] Blood Venous blood / Unknown 03/05/2025 10:30 AM EDT 03/05/2025 11:42 AM EDT [facility] LABORATORY - 03/05/2025 8:10 PM EDT Ref. range is for FASTING NON-DIABETIC POPULATION. Atiya Srivastava [facility] LAB BLOOD ORDERABLES nal Result [facility] [address] [place] [address], [place] [phone] * Vitamin D 25 hydroxy (03/05/2025 10:30 AM EDT) VITAMIN D 25 HYD TOT 35.4 30.0 - 100.0 ng/mL 03/05/2025 8:09 PM EDT [facility] Blood Venous blood / Unknown 03/05/2025 10:30 AM EDT 03/05/2025 11:42 AM EDT [facility] LABORATORY - 03/05/2025 8:09 PM EDT Vitamin D status 25 [place] Vitamin D Deficiency <20 ng/mL Insufficiency 20-29 ng/mL Sufficiency 30-100 ng/mL Toxicity >100 ng/mL NOTE: A pediatric reference range has not been established by the field account manager of this kit. The [place] [employer] recommends a Vitamin D level of = or >20ng/mL in infants and children. Atiya Srivastava [facility] LAB BLOOD ORDERABLES Fi nal Result Performing Organization Address City/[facility]/ZIP Co de Phone Number [facility] [address] [place] [address], * (ABNORMAL) Iron and TIBC (03/05/2025 10:30 AM EDT) IRON 48(L) 50 - 170 ug/dL 03/05/2025 7:50 PM EDT [facility] TRANSFERRIN 368(H) 168 - 336 mg/dL 03/05/2025 7:50 PM EDT [facility] IRON BINDING 515(H) 250 - 425 ug/dL 03/05/2025 7:50 PM EDT [facility] IRON SATURATION 9(L) 15 - 50 % SATURATION 03/05/2025 7:50 PM EDT [facility] Blood Venous blood / Unknown 03/05/2025 10:30 AM EDT 03/05/2025 11:42 AM EDT Atiya Cottrellmer [facility] LAB BLOOD ORDERABLES nal Result Performing Organization Address City/[facility]/ZIP Co de Phone Number [facility] [address] [place] [address], * (ABNORMAL) Hemoglobin A1c (03/05/2025 10:30 AM EDT) HEMOGLOBIN A1C 5.9(H) 4.4 - 5.6 % 03/05/2025 7:33 PM EDT [facility] Comment: ADA Guidelines Result HgbA1c Normal : less than 5.7 % Prediabetes : 5.7 % to 6.4 % Diabetes : > 6.4 % Use with caution in patients with abnormal hemoglobin variants as the half-life of red blood cells and in vivo glycation rates are affected. EST. AVERAGE GLUCOSE 123 mg/dL 03/05/2025 7:33 PM EDT [facility] Blood Venous blood / Unknown 03/05/2025 10:30 AM EDT 03/05/2025 11:42 AM EDT us Atiya Srivastava POT FIRER-TRUSS BUILDER LAB BLOOD ORDERABLES Fi nal Result [facility] [address] [place] [address], * (ABNORMAL) CBC auto differential (03/05/2025 10:30 AM EDT) WBC 6.6 4 - 11 x10E9/L 03/05/2025 12:02 PM EDT [facility] RBC Count 3.98 3.8 - 5.2 X10E12/L 03/05/2025 12:02 PM EDT [facility] Hemoglobin 11.4(L) 11.7 - 15.5 g/dL 03/05/2025 12:02 PM EDT [facility] Hematocrit 34.8(L) 35 - 47 % 03/05/2025 12:02 PM EDT [facility] MCV 88 80 - 100 fL 03/05/2025 12:02 PM EDT [facility] MCH 28.6 27 - 34 pg 03/05/2025 12:02 PM EDT [facility] MCHC 32.7 32 - 36 g/dL 03/05/2025 12:02 PM EDT [facility] RDW 15.8(H) 11.5 - 15 % 03/05/2025 12:02 PM EDT [facility] Platelet Count 236 150 - 450 X10E9/L 03/05/2025 12:02 PM EDT [facility] MPV 9.0 7 - 12 fL 03/05/2025 12:02 PM EDT [facility] Neutrophils % 57.6 % 03/05/2025 12:02 PM EDT [facility] Lymphocytes % 30.3 % 03/05/2025 12:02 PM EDT [facility] Monocytes % 8.9 % 03/05/2025 12:02 PM EDT [facility] Eosinophils % 2.5 % 03/05/2025 12:02 PM EDT [facility] Basophils % 0.7 % 03/05/2025 12:02 PM EDT [facility] Neutrophils Absolute (A) 3.8 10*3/uL 03/05/2025 12:02 PM EDT [facility] Lymphocytes Absolute 2.0 10*3/uL 03/05/2025 12:02 PM EDT [facility] Monocytes Absolute 0.6 10*3/uL 03/05/2025 12:02 PM EDT [facility] Eosinophils Absolute 0.2 10*3/uL 03/05/2025 12:02 PM EDT [facility] Basophils Absolute 0.0 10*3/uL 03/05/2025 12:02 PM EDT [facility] Differential Type AUTOMATED DIFFERENTIAL 03/05/2025 12:02 PM EDT [facility] Blood Venous blood / Unknown 03/05/2025 10:30 AM EDT 03/05/2025 11:42 AM EDT us Atiya Srivastava POT FIRER-TRUSS BUILDER LAB BLOOD ORDERABLES Fi nal Result [facility] [address] [place] [address], [place] * (ABNORMAL) Lipid profile (03/05/2025 10:30 AM EDT) CHOLESTEROL 186 150 - 200 mg/dL 03/05/2025 7:50 PM EDT [facility] TRIGLYCERIDE 217(H) 27 - 150 mg/dL 03/05/2025 7:50 PM EDT [facility] HDL CHOLESTEROL 43 >39 mg/dL 7:50 PM EDT [facility] Comment: HDL <40 mg/dL - High Risk HDL > or = 40mg/dL- Desirable HDL >60 mg/dL - Negative Risk LDL (CALC) 100 <130 mg/dL 03/05/2025 7:50 PM EDT [facility] Comment: LDL <100 mg/dL - Desirable LDL >160 mg/dL - High Risk CHOLESTEROL:HDL 4.3 1.0 - 5.0 7:50 PM EDT [facility] VERY LOW LIPOPROTEIN 43(H) 0 - 30 mg/dL 03/05/2025 7:50 PM EDT [facility] Blood Venous blood / Unknown 03/05/2025 10:30 AM EDT 03/05/2025 11:42 AM EDT us Atiya Srivastava POT FIRER-TRUSS BUILDER LAB BLOOD ORDERABLES Fi nal Result [facility] [address] [place] [address], [place] [phone] documented in this encounter Visit Diagnoses Diagnosis Essential (primary) hypertension Unspecified essential hypertension documented in this encounter Care Teams Central Office Operator Supervisor Relationship Specialty Start Date End Date Provider, MD Colt PCP - General 01/05/13 documented as of this encounter
--- OUTSIDE RECORDS SUMMARY | 2025-07-12 00:43 | XMS_ITS | Clinical Summary ---
Author Organization [facility] Address [address] [place] [address] Care Team Providers Care Hha Name Role Phone Greg Adkins MD Primary Care Provider [phone] Encounters Date Type Department Care Team Description 04/11/2025 Abstract OCTAVIA Luigi [facility] [address] [facility] [address] [place] [address] Unallocated, Noms ProviderMD from Last 3 Months Social History Tobacco Use Types Packs/Day Years Used Date Smoking Tobacco: Never Assessed Comments Unknown Sex and Gender Information Value Date Recorded Sex Assigned at Not on file Legal Sex Female 6:38 PM EDT Gender Identity Not on file Sexual Orientation Not on file Last Filed Vital Signs Vital Sign Reading Time Taken Comments Blood Pressure 140/78 10/19/2018 12:00 PM EST Pulse - - Temperature - - Respiratory Rate - - Oxygen Saturation - - Inhaled Oxygen Concentration - - Weight 77.1 kg (170 lb) 01/17/2018 12:00 PM EDT Height 152.4 cm (5') 10/19/2018 12:00 PM EST Body Mass Index 33.2 01/17/2018 12:00 PM EDT Plan of Treatment Health Maintenance Due Date Last Done Comments Pneumococcal Vaccine: 65+ Ye ars (1 of 1 - PCV) 1989 Influenza Vaccine (#1) 2025 2, 08/10/2021, 07/29/2020, Additional history exists Insurance [employer] Care Teams Hha Relationship Specialty Start Date End Date Greg Adkins MD PCP - General Family Medicine 12/13/23
--- OUTSIDE RECORDS SUMMARY | 2025-07-12 00:43 | XMS_ITS | Encounter Summary ---
Author Organization [facility] Address [address], [address] [place] [address] Care Team Providers Care Forestry Tree Pruner Name Role Phone Kalin Santos DO Primary Care Provider Unavaila ble Reason for Visit * Reason Comments Medication Refill Encounter Details Date Type Department Care Team (Late st Contact Info) Description 03/28/2012 Refill [facility] [address] [place] [phone] Antoni Anne MD [address] [place] [address] Medication Refill Social History Tobacco Use Types [...] documented as of this encounter Care Teams Forestry Tree Pruner Relationship Specialty Start Date End Date Kalin Santos DO [address] [place] [address] PCP - General 06/22/16 documented as of this encounter
--- OUTSIDE RECORDS SUMMARY | 2025-07-12 00:43 | XMS_ITS | Encounter Summary ---
Author Organization [facility] Address [address], [address] [place] [address] Care Team Providers Care Structural Steel Worker Helper Name Role Phone Kalin Santos DO Primary Care Provider Unavaila ble Reason for Visit * Reason Comments Medication Refill Encounter Details Date Type Department Care Team (Late st Contact Info) Description 11/23/2016 Refill [facility] [address] [place] [address] [address] [place] [address] Antoni Anne MD [address] [place] [address] Medication Refill Social History Tobacco Use Types [...] documented as of this encounter Care Teams Structural Steel Worker Helper Relationship Specialty Start Date End Date Kalin Santos DO [address] [place] [address] PCP - General 06/22/16 documented as of this encounter
--- OUTSIDE RECORDS SUMMARY | 2025-07-12 00:43 | XMS_ITS | Encounter Summary ---
Author Organization [facility] Address [address] [address] Care Team Providers Care Leasing Representative Name Role Phone Kalin Santos DO Primary Care Provider Unavaila ble Encounter Details Date Type Department Care Team (Late st Contact Info) Description 06/19/2016 PAT Telephone [facility] Pre-Admit Testing [address] [place] [phone] Osvaldo Pagan RN Social History Tobacco Use [...] documented as of this encounter Care Teams Leasing Representative Relationship Specialty Start Date End Date Kalin Santos DO [address] [place] [address] PCP - General 06/22/16 documented as of this encounter
--- OUTSIDE RECORDS SUMMARY | 2025-07-12 00:43 | XMS_ITS | Patient Health Record ---
Author Organization The [facility] in [place] Address [address] [place] [address] Care Team Providers Care Taker Off Drying [employer] Name Role Phone CarolaAtiya adan Primary Care Provider David Adkins [phone] Allergies Allergen (clinical drug ingredient) Drug/Non Drug Allergy documented on EMR Reaction Allergy Type Onset Date Status codeine Codeine Sulfate TABS (uncoded) dizzy Allergy Active Latex Latex (uncoded) rash Allergy Acti ve Demerol TABS dizzy Drug Allergy Acti ve Substance with sulfonamide structure and antibacterial mechanism of action (substance) Sulfa Antibiotics rash Drug Allergy Active Results Component Value Reference Range Notes IRON PROFILE ([facility]) Reviewed date:03/06/2025 08:45:29 AM Interpretation: Performing Lab: Notes/Report: IRON 48 50-170 ug/dL TRANSFERRIN 368 168-336 mg/dL IRON BINDING 515 250-425 ug/dL IRON SATURATION 9 15-50 % SATURATION PERFORMED AT [facility] [address],[place] [address] HGB A1C (GLYCO-HGB) Reviewed date:04/10/2025 12:47:56 PM [...] EST. AVERAGE GLUCOSE 123 PERFORMED AT [address],[place] [address] LIPID PANEL Reviewed date:03/06/2025 08:45:29 AM Interpretation: [...] LOW LIPOPROTEIN 43 0-30 mg/dL PERFORMED AT [address],[place] [address] CBC AUTO DIFF Reviewed date:03/06/2025 08:45:29 AM Interpretation: Performing Lab: Notes/Report: [facility] , White Blood Count 9.0 4.0-11.0 10 [...] 3/uL Performing Lab: see note ML - [facility] LB PROF 14(COMP METB) Reviewed date:03/06/2025 08:45:29 AM Interpretation: Performing Lab: Notes/Report: [facility] , Sodium 137 136-145 mmol/L Potassium 6.5 3.5-5.1 mmol/L RESULTS MENDOZA D TO Dr. Bass Chloride 103 98-107 mmol/L Carbon Dioxide 28.1 [...] 1.1 Performing Lab: see note ML - [facility] LB CBC no Diff (Hemogram) Reviewed date:03/06/2025 08:45:29 AM Interpretation: Performing Lab: Notes/Report: [facility] , White Blood Count 7.5 4.0-11.0 10 [...] 9.5-13.5 fL Performing Lab: see note - [facility] LB PROF CHEM 8 (BAS METB) Reviewed date:03/06/2025 04:03:20 PM Interpretation: Performing Lab: Notes/Report: [facility] , Sodium 138 136-145 mmol/L Potassium 5.6 3.5-5.1 mmol/L Chloride 101 98-107 mmol/L Carbon Dioxide 28.6 21.0-32.0 mmol/L Anion Gap 14.0 Glucose 129 74-106 mg/dL Blood Urea Nitrogen 26.0 7.0-18.0 mg/dL Creatinine 2.47 0.55-1.02 mg/dL Estimated GFR ( Simona 23 >=60 mL/min/1.73m 2 Estimated GFR (Non- Eva 19 >=60 mL/min/1.73m 2 BUN Creatinine Ratio 10.5 Calcium 9.2 8.5-10.1 mg/dL Performing Lab: see note [facility] UA RANDOM W or MICROSCOPIC Reviewed date:03/07/2025 04:59:39 PM Interpretation: Performing Lab: Notes/Report: [facility] , Color Urine LT. YELLOW YELLOW Clarity Urine CLEAR CLEAR Specific [place] Urine 1.015 1.005-1.025 pH Urine 6.0 5.0-9.0 [...] NO Performing Lab: see note ML - [facility] LB URINALYSIS Reviewed date:05/02/2025 08:54:55 AM Interpretation: Performing [...] A clinical correlation is recommended. PERFORMED AT [address] [place] [address] URINE CULTURE Reviewed date:05/28/2025 04:54:52 PM Interpretation: Performing Lab:[facility] ([facility]), [address] [place], [place] [address]., [address]. [address] PH:[phone] Notes/Report: URINE CULTURE SEE RESULTS BELOW SPECIMEN SOURCE Urine Urine CULTURE RESULTS ORGANISM 1: ESCHERICHIA COLI >100,000 CFU/mL Escherichia coli REPORT STATUS FINAL 05/25/2025 ESCHERICHIA COLI Interpretation Ampicillin <=2.0 S AMP/SULBACTAM <=2.0 S PIPERACIL/TAZOBACTAM <=4.0 S Cefazolin (non-urinary) <=1.0 S Cefazolin (urinary) <=1.0 S Ceftriaxone <=0.25 S Gentamicin <=1.0 S Ciprofloxacin <=0.06 S Levofloxacin <=0.12 S Nitrofurantoin <=16.0 S Trimethoprim + Sulfamethoxazole<=1. 0 S PERFORMED AT [address], [place] [address] URINALYSIS Reviewed date:05/25/2025 10:37:04 AM Interpretation: Performing [...] (URINE) Negative Negative, 250 mg/dL PERFORMED AT [address] [place] [address] URINE CULTURE Reviewed date:06/18/2025 10:29:29 AM Interpretation: Performing Lab:[facility] ([facility]), [address] [place] [address]., [address]. [address] PH:[phone] Notes/Report: URINE CULTURE SEE RESULTS BELOW SPECIMEN SOURCE Urine Urine CULTURE RESULTS ORGANISM 1: ESCHERICHIA COLI >100,000 CFU/mL Escherichia coli REPORT STATUS FINAL 06/17/2025 ESCHERICHIA COLI Interpretation Ampicillin <=2.0 S AMP/SULBACTAM <=2.0 S PIPERACIL/TAZOBACTAM <=4.0 S Cefazolin (non-urinary) 2.0 S Cefazolin (urinary) 2.0 S Ceftriaxone <=0.25 S Gentamicin <=1.0 S Ciprofloxacin <=0.06 S Levofloxacin <=0.12 S Nitrofurantoin <=16.0 S Trimethoprim + Sulfamethoxazole<=1. 0 S Along with 10,000 to 50,000 CFU/mL Normal Urogenital Dania. Urine received without preservative - delays in transport may affect results. Interpret with caution and clinical correlation is recommended. PERFORMED AT [address],[place] [address] URINALYSIS Reviewed date:06/18/2025 10:30:28 AM Interpretation: Performing [...] A clinical correlation is recommended. PERFORMED AT [address] [place] [address] CBC AUTO DIFF Reviewed date:06/26/2025 08:33:44 AM Interpretation: Performing Lab: Notes/Report: [facility] , White Blood Count 10.5 4.0-11.0 10 [...] 3/uL Performing Lab: see note ML - [facility] LB LACTATE or LACTIC ACID Reviewed date:06/26/2025 08:33:44 AM Interpretation: Performing Lab: Notes/Report: [facility] , Lactate/Lactic Acid 2.0 0.4-2.0 mmol/L Performing Lab: see note - [facility] LB PROF 14(COMP METB) Reviewed date:06/26/2025 08:33:44 AM Interpretation: Performing Lab: Notes/Report: [facility] , Sodium 140 136-145 mmol/L Potassium 5.6 [...] Globulin Ratio 0.9 Performing Lab: see note - [facility] LB UA RANDOM W or MICROSCOPIC Reviewed date:06/26/2025 08:33:44 AM Interpretation: Performing Lab: Notes/Report: [facility] , Color Urine LT. YELLOW YELLOW Clarity Urine CLEAR CLEAR Specific [place] Urine 1.020 1.005-1.025 pH Urine 6.0 5.0-9.0 Protein Urine NEGATIVE NEG/TRACE mg/dL Glucose Urine UA NEGATIVE NEGATIVE mg/dL Bilirubin Urine NEGATIVE NEGATIVE Ketones Urine NEGATIVE NEGATIVE mg/dL Blood Urine NEGATIVE NEGATIVE Nitrite Urine NEGATIVE NEGATIVE Urobilinogen Urine 0.2 0.2-1.0 EU/dL Leukocyte Esterase Urine NEGATIVE NEGATIVE WBC Urine 0-2 NONE SEEN #/HPF RBC Urine 0-2 0-2 #/HPF Bacteria Urine NONE SEEN NONE SEEN #/HPF Mucus Urine NONE SEEN NONE SEEN Squamous Epithelial Cell Urine RARE NONE/RARE #/LPF Crystals Seen? None Seen None Seen #/HPF Cast Seen? NONE SEEN NONE SEEN #/LPF Urine Culture Indicated NO Performing Lab: see note ML - [facility] LB Troponin I High Sensitivity Reviewed date:06/26/2025 08:33:44 AM Interpretation: Performing Lab: Notes/Report: [facility] , Troponin I High Sensitivity 14.9 4.0-51.3 pg/mL CUT-OFF POINTS HAVE BEEN ESTABLISHED BASED ON THE FOURTH UNIVERSAL DEFINITION OF MYOCARDIAL INFARCTION. THE UPPER REFERENCE LIMIT (URL) OF TROPONIN, DEFINED THE 99TH PERCENTILE OF cTnI DISTRIBUTION IN A REFERENCE POPULATION, HAS BEEN CONFIRMED THE DECISION THRESHOLD FOR [place] DIAGNOSIS. 99TH PERCENTILE = 51.4 PG/ML NOTE: HIGH-SENSITIVITY TROPONIN ASSAY IS NOT INTENDED TO BE USED IN ISOLATION BUT SHOULD BE INTERPRETED IN CONJUNCTION WITH OTHER DIAGNOSTIC AND CLINICAL INFORMATION. Performing Lab: see note ML - [facility] LB XR chest 1V Reviewed date:06/26/2025 08:33:44 AM Interpretation: Performing Lab: Notes/Report: Source Facility: [facility]-[address] [place] [address] [place] [address] XRay Report Signed Patient: VIDHYA GIORDANO MR#: [id number] : 1940 Acct:[id number] Age/Sex: 85 / F ADM Date: 06/25/25 Loc: ER Attending Dr: Ordering Physician: Serenity Patrick D.O. Date of Service: 06/25/25 Procedure(s): XR chest 1V Accession Number(s): [id number] cc: ATIYA KELLER ; Serenity Patrick D.O. The [place] [address] Patient Name: VIDHYA GIORDANO MRN: [id number] date: 1940 Sex: F Assigned Patient Location: ED.MAIN Current Patient Location: ED.MAIN Accession/Order Number: [id number] Exam Date: 06/25/2025 17:14 Report Date: 06/25/2025 17:16 At the request of: SERENITY PATRICK DO Procedure: XR chest 1V Plain film chest Single view HISTORY: Weakness COMPARISON: 03/05/2025 FINDINGS: SUPPORT DEVICES: None POSTSURGICAL CHANGES: Spinal fixation hardware HEART: Within normal limits PULMONARY FRANKIE: Within normal limits MEDIASTINUM: Unremarkable LUNGS AND PLEURA: No acute lung process, pleural effusion or pneumothorax identified. Similar right hemidiaphragm elevation BONY STRUCTURES: Intact ADDITIONAL FINDINGS None XR/XR chest 1V IMPRESSION: No acute process. Impression dictated by: Mark Funez M.D. 06/25/2025 5:16 PM Dictation Location: [place] [address] Electronically authenticated by: [id number] Y Date: 06/25/2025 17:16 Dictated By: Mark Funez D.O. Signed By: 06/25/251717 DD/ 15 TD/TT: [employer] Teacher: [place] [address] XRay Report Signed Patient: VIDHYA GIORDANO MR#: [id number] : 1940 Acct:[id number] Age/Sex: 85 / F ADM Date: 06/25/25 Loc: ER Attending Dr: Ordering Physician: Serenity Patrick D.O. Date of Service: 06/25/25 Procedure(s): XR carla st 1V Accession Number(s): [id number] cc: ATIYA KELLER ; Serenity Patrick D.O. [address] [address] Patient Name: VIDHYA GIORDANO MRN: [facility]:[id number] date: 1940 Sex: F Assigned Patient Location: ED.MAIN Current Patient Location: ED.MAIN Accession/Order Numb er: [id number] Exam Date: 06/25/2025 17:14 Report Date: 06/25/2025 17:16 At the request of: SERENITY BURNS DO Procedure: XR chest 1V Plain film chest Sin gle view HISTORY: Weakness COMPARISON: 03/05/2025 FINDINGS: SUPPORT DEVICES: None POSTSURGICAL CHANGES : Spinal fixation hardware HEART: Within normal limits PULMONARY FRANKIE: With in normal limits MEDIASTINUM: Unremarkable LUNGS AND PLEURA: No acute lung process, pleural effusion or pneumothorax identified. Similar right hemidiaphragm elevation BONY STRUCTURES: Intact ADDITIONAL FINDINGS None X R/XR chest 1V IMPRESSION: No acute process. Impression dictated by: Mark Funez M.D. 06/25/2025 5:16 PM Dictation Location: [place] [address] Electronically authenticated by: [id number] Y Date: 06/25/2025 17:16 Dictated By: Mark Funez D.O. Signed By: 06/25/251717 DD/ 15 TD/TT: [employer] Teacher: PROF REDMOND 8 ([facility]) Reviewed date:06/26/2025 08:33:44 AM Interpretation: Performing Lab: Notes/Report: [facility] , Sodium 138 136-145 mmol/L Potassium 4.8 3.5-5.1 mmol/L Chloride 104 98-107 mmol/L Carbon Dioxide 25.7 21.0-32.0 mmol/L Anion Gap 13.1 Glucose 113 74-106 mg/dL Blood Urea Nitrogen 34.0 7.0-18.0 mg/dL Creatinine 1.66 0.55-1.02 mg/dL Estimated GFR ( Simona 35 >=60 mL/min/1.73m 2 Estimated GFR (Non- Eva 29 >=60 mL/min/1.73m 2 BUN Creatinine Ratio 20.5 Calcium 9.5 8.5-10.1 mg/dL Performing Lab: see note ML - [facility] LB CT head/brain wo con Reviewed date:06/26/2025 04:19:27 PM Interpretation: Performing Lab: Notes/Report: Source Facility: [facility]-[address] [place] [address] [place] [address] CT Scan Report Signed Patient: VIDHYA GIORDANO MR#: [id number] : 1940 Acct:[id number] Age/Sex: 85 / F ADM Date: 06/25/25 Loc: MS 232-[address]: Magdy Muhammad M.D. Ordering Physician: Magdy Muhammad M.D. Date of Service: 06/26/25 Procedure(s): CT head/brain wo con Accession Number(s): [id number] cc: ATIYA KELLER [place] [id number] Patient Name: VIDHYA GIORDANO MRN: [id number] date: 1940 Sex: F Assigned Patient Location: MS Current Patient Location: [place] Accession/Order Number: [id number] Exam Date: 06/26/2025 16:05 Report Date: 06/26/2025 16:11 At the request of: MAGDY MUHAMMAD MD Procedure: CT head/brain wo con CT BRAIN WITHOUT CONTRAST: CLINICAL HISTORY: Weakness COMPARISON: CT head 03/05/2025, MRI cervical spine 05/15/2025 TECHNIQUE: Contiguous axial unenhanced images were obtained through the brain. This CT exam was performed using one or more following dose reduction techniques: Automated exposure control, adjustment of the mA and/or kV according to patient size, or use of iterative reconstruction technique. FINDINGS: There is no evidence of midline shift, intra or extra-axial fluid collection, hemorrhage or CT evidence of of acute large vascular lesion stroke. Moderate chronic small ischemic disease and Central involutional changes identified. 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 There are contraindications identified involving the intracranial vasculature. Cataract surgery. Visualized paranasal sinuses are clear. No calvarial fracture. Severe degenerative changes at the craniocervical junction again identified better assessed on recent MRI cervical spine. CT/CT head/brain wo con IMPRESSION: NO ACUTE INTRACRANIAL ABNORMALITY. CHRONIC SMALL VESSEL ISCHEMIC DISEASE AND CENTRAL INVOLUTIONAL CHANGES. Impression dictated by: Odilon Jain M.D. 06/26/2025 4:11 PM Dictation Location: [place] [address] Electronically authenticated by: [id number] Y Date: 06/26/2025 16:11 Dictated By: Odilon Jain M.D. Signed By: 06/26/25 1613 DD/ 10 TD/TT: [employer] Teacher: [place] [address] CT Scan Report Signed Patient: VIDHYA GIORDANO MR#: [id number] : 1940 Acct:[id number] Age/Sex: 85 / F ADM Date: 06/25/25 Loc: MS 232-[address]: Magdy Muhammad M.D. Ordering Physician: Magdy Muhammad M.D. Date of Service: 06/26/25 Procedure(s): CT head/brain wo con Accession Number(s): [id number] cc: ATIYA KELLER [place] [id number] Patient Name: VIDHYA GIORDANO MRN: [id number] date: 1940 Sex: F Assigned Patient Location: MS Current Patient Location: MS Accession/Order Numb er: [id number] Exam Date: 06/26/2025 16:05 Report Date: 06/26/2025 16:11 At the request of: MAGDY MUHAMMAD MD Procedure: CT head/b rain wo con CT BRAIN WITHOUT CONTRAST: CLINICAL HISTORY: Weakness COMPARISON: CT head 03/05/2025, MRI cervical spine 05/15/2025 TECHNIQUE: Contiguou s axial unenhanced images were obtained through the brain. This CT exam was performed using one or more following dose reduction techniques: Automate d exposure control, adjustment of the mA and/or kV according to patient size, or use of iterative reconstruction technique. FINDINGS: There is n o evidence of midline shift, intra or extra-axial fluid collection, hemorrha ge or CT evidence of of acute large vascular lesion stroke. Moderate chr onic small ischemic disease and Central involutional changes identified. Evidence of remote left parasagittal/mediastinal similar stroke notably on th e left PICA distribution. There are contraindications identified involving the intracranial vasculature. Cataract surgery. Visualized paranasal sinuses are clear. No calvarial fracture. Severe degenerative changes at the craniocervical junction again identified better assessed on recent M RI cervical spine. C T/CT head/brain wo con IMPRESSION: NO ACUTE INTRACRANIA L ABNORMALITY. CHRONIC SMALL VESSEL ISCHEMIC DISEASE AND CENTRAL INVOLUTIONAL CHANGES. Impression dictated by: Odilon Jain M.D. 06/26/2025 4:11 PM Dictation Location: [place] [address] Electronically authenticated by: [id number] Y Date: 06/26/2025 16:11 Dictated By: Juli Jain M.D. Signed By: 06/26/251612 DD/ 10 TD/TT: [employer] Teacher: PROF NYLA Holland ([facility]) Reviewed date:06/28/2025 10:12:00 AM Interpretation: Performing Lab: Notes/Report: [facility] , Sodium 136 136-145 mmol/L Potassium 5.3 3.5-5.1 mmol/L Chloride 102 98-107 mmol/L Carbon Dioxide 26.4 21.0-32.0 mmol/L Anion Gap 12.9 Glucose 255 74-106 mg/dL Blood Urea Nitrogen 38.0 7.0-18.0 mg/dL Creatinine 1.86 0.55-1.02 mg/dL Estimated GFR ( Simona 31 >=60 mL/min/1.73m 2 Estimated GFR (Non- Eva 26 >=60 mL/min/1.73m 2 BUN Creatinine Ratio 20.4 Calcium 9.5 8.5-10.1 mg/dL Performing Lab: see note ML - [facility] LB CBC no Diff (Hemogram) Reviewed date:06/28/2025 10:12:00 AM Interpretation: Performing Lab: Notes/Report: [facility] , White Blood Count 11.0 4.0-11.0 10 3/uL Red Blood Count 4.40 4.20-5.40 10 6/uL Hemoglobin 12.1 12.0-16.0 g/dL Hematocrit 37.3 36.0-48.0 % Mean Corpuscular Volume 84.8 81.0-99.0 fL Mean Corpuscular Hemoglobin 27.5 26.7-34.0 pg Mean Corpuscular HGB Conc 32.4 29.9-35.2 g/dL Red Cell Distribution Width 15.2 11.0-15.0 % Platelet Count 261 150-450 10 3/uL Mean Platelet Volume 10.0 9.5-13.5 fL Performing Lab: see note ML - [facility] LB XR abdomen 1V Reviewed date:06/28/2025 12:27:29 PM Interpretation: Performing Lab: Notes/Report: Source Facility: [place] [address] XRay Report Signed Patient: VIDHYA GIORDANO MR#: [id number] : 1940 Acct:[id number] Age/Sex: 85 / F ADM Date: 06/25/25 Loc: [place] 232-[address]: Magdy Muhammad M.D. Ordering Physician: Magdy Muhammad M.D. Date of Service: 06/28/25 Procedure(s): XR abdomen 1V Accession Number(s): [id number] cc: ATIYA KELLER ; Magdy Muhammad M.D. [place] [address] Patient Name: VIDHYA GIORDANO MRN: [id number] date: 1940 Sex: F Assigned Patient Location: [place] Current Patient Location: [place] Accession/Order Number: [id number] Exam Date: 06/28/2025 12:02 Report Date: 06/28/2025 12:05 At the request of: MAGDY MUHAMMAD MD Procedure: XR abdomen 1V Single supine view abdomen INDICATION: Ileus XR/XR abdomen 1V IMPRESSION: 02/25/2025 FINDINGS: There are prominent gas-filled loops of bowel identified moderate stool burden rectosigmoid junction. No definite free air. Multilevel postsurgical changes thoracolumbar instrumentation noted. IMPRESSION: Moderate stool burden rectosigmoid junction. Moderate gaseous of the bowel loops may suggest distal obstruction or impaction. Impression dictated by: Odilon Jain M.D. 06/28/2025 12:05 PM Dictation Location: [place] [address] Electronically authenticated by: [id number] Date: 06/28/2025 12:05 Dictated By: Odilon Jain M.D. Signed By: 06/28/25 1208 DD/ 1205 TD/TT: [employer] Teacher: [place] [address] XRay Report Signed Patient: VIDHYA GIORDANO MR#: [id number] : 1940 Acct:[id number] Age/Sex: 85 / F ADM Date: 06/25/25 Loc: MS 232-[address]: Magdy Muhammad M.D. Ordering Physician: Magdy Muhammad M.D. Date of Service: 06/28/25 Procedure(s): XR abd omen 1V Accession Number(s): [id number] cc: ATIYA KELLER ; Magdy Muhammad M.D. [place] [address] Patient Name: VIDHYA GIORDANO MRN: [id number] date: 1940 Sex: F Assigned Patient Location: [place] Current Patient Location: [place] Accession/Order Numb er: [id number] Exam Date: 06/28/2025 12:02 Report Date: 06/28/2025 12:05 At the request of: MAGDY MUHAMMAD MD Procedure: XR abdomen 1V Single supine view abdomen INDICATION: Ileus X R/XR abdomen 1V IMPRESSION: 02/25/2025 FINDINGS: There are prominent gas-filled loops of bowel identified moderate stool burden rectosigmoid junction. No definite free air. Multilevel postsurgical changes thoracolumbar instrumentation noted. IMPRESSION: Moderate stool burden rectosigmoid junction. Moderate gaseous of the bowel loops may suggest distal obstruction or impaction. Impression dictated by: Odilon Jain M.D. 06/28/2025 12:05 PM Dictation Location: [place] [address] Electronically authenticated by: [id number] Y Date: 06/28/2025 12:05 Dictated By: Juli Jain M.D. Signed By: 06/28/258 DD/ 04 TD/TT: [employer] Teacher: PROF NYLA Holland ([facility]) Reviewed date:06/29/2025 08:54:38 AM Interpretation: Performing Lab: Notes/Report: [facility] , Sodium 133 136-145 mmol/L Potassium 4.8 3.5-5.1 mmol/L Chloride 93 98-107 mmol/L Carbon Dioxide 29.6 21.0-32.0 mmol/L Anion Gap 15.2 Glucose 225 74-106 mg/dL Blood Urea Nitrogen 60.0 7.0-18.0 mg/dL Creatinine 1.94 0.55-1.02 mg/dL Estimated GFR ( Simona 30 >=60 mL/min/1.73m 2 Estimated GFR (Non- Eva 24 >=60 mL/min/1.73m 2 BUN Creatinine Ratio 30.9 Calcium 9.5 8.5-10.1 mg/dL Performing Lab: see note ML - [facility] LB CBC no Diff (Hemogram) Reviewed date:06/29/2025 08:54:38 AM Interpretation: Performing Lab: Notes/Report: [facility] , White Blood Count 15.0 4.0-11.0 10 3/uL Red Blood Count 4.70 4.20-5.40 10 6/uL Hemoglobin 12.8 12.0-16.0 g/dL Hematocrit 38.9 36.0-48.0 % Mean Corpuscular Volume 82.8 81.0-99.0 fL Mean Corpuscular Hemoglobin 27.2 26.7-34.0 pg Mean Corpuscular HGB Conc 32.9 29.9-35.2 g/dL Red Cell Distribution Width 15.2 11.0-15.0 % Platelet Count 311 150-450 10 3/uL Mean Platelet Volume 10.7 9.5-13.5 fL Performing Lab: see note ML - [facility] LB Blood Culture 2 (Not yet rev iewed by provider) Interpretation: Performing Lab: Notes/Report: RIGHT HAND [facility] , Blood Culture 2 See Below For Report O:STAEPI Isolated O:STANEG Isolated Organism: 1.1 Antibiotic Interpretation JONATHAN Status Organism: 1.2 Antibiotic Interpretation JONATHAN Status Blood Culture 2 See Below For Report O:STAEPI Isolated O:STANEG Isolated Organism: 1.1 Antibiotic Interpretation JONATHAN Status Organism: 1.2 Antibiotic Interpretation JONATHAN Status Blood Culture 2 POSITIVE AEROBIC BOT TLE SET #2 O:STAEPI Isolated O:STANEG Isolated Organism: 1.1 Antibiotic Interpretation JONATHAN Status Organism: 1.2 Antibiotic Interpretation JONATHAN Status Blood Culture 2 O:STAEPI Isolated O:STANEG Isolated Organism: 1.1 Antibiotic Interpretation JONATHAN Status Organism: 1.2 Antibiotic Interpretation JONATHAN Status Blood Culture 2 BCID= STAPH. EPI O:STAEPI Isolated O:STANEG Isolated Organism: 1.1 Antibiotic Interpretation JONATHAN Status Organism: 1.2 Antibiotic Interpretation JONATHAN Status Blood Culture 2 O:STAEPI Isolated O:STANEG Isolated Organism: 1.1 Antibiotic Interpretation JONATHAN Status Organism: 1.2 Antibiotic Interpretation JONATHAN Status Blood Culture 2 GRAM STAIN= GRAM POSITIVE COCCI O:STAEPI Isolated O:STANEG Isolated Organism: 1.1 Antibiotic Interpretation JONATHAN Status Organism: 1.2 Antibiotic Interpretation JONATHAN Status Blood Culture 2 O:STAEPI Isolated O:STANEG Isolated Organism: 1.1 Antibiotic Interpretation JONATHAN Status Organism: 1.2 Antibiotic Interpretation JONATHAN Status Blood Culture 2 SENT TO [facility] FURTHER WORKUP O:STAEPI Isolated O:STANEG Isolated Organism: 1.1 Antibiotic Interpretation JONATHAN Status Organism: 1.2 Antibiotic Interpretation JONATHAN Status Blood Culture 2 See Below For Report O:STAEPI Isolated O:STANEG Isolated Organism: 1.1 Antibiotic Interpretation JONATHAN Status Organism: 1.2 Antibiotic Interpretation JONATHAN Status Blood Culture 2 Azithromycin R F O:STAEPI Isolated O:STANEG Isolated Organism: 1.1 Antibiotic Interpretation JONATHAN Status Organism: 1.2 Antibiotic Interpretation JONATHAN Status Blood Culture 2 Daptomycin S F O:STAEPI Isolated O:STANEG Isolated Organism: 1.1 Antibiotic Interpretation JONATHAN Status Organism: 1.2 Antibiotic Interpretation JONATHAN Status Blood Culture 2 Levofloxacin S F O:STAEPI Isolated O:STANEG Isolated Organism: 1.1 Antibiotic Interpretation JONATHAN Status Organism: 1.2 Antibiotic Interpretation JONATHAN Status Blood Culture 2 Linezolid S F O:STAEPI Isolated O:STANEG Isolated Organism: 1.1 Antibiotic Interpretation JONATHAN Status Organism: 1.2 Antibiotic Interpretation JONATHAN Status Blood Culture 2 Oxacillin Jontahan R F O:STAEPI Isolated O:STANEG Isolated Organism: 1.1 Antibiotic Interpretation JONATHAN Status Organism: 1.2 Antibiotic Interpretation JONATHAN Status Blood Culture 2 Penicillin R F O:STAEPI Isolated O:STANEG Isolated Organism: 1.1 Antibiotic Interpretation JONATHAN Status Organism: 1.2 Antibiotic Interpretation JONATHAN Status Blood Culture 2 Tetracycline S F O:STAEPI Isolated O:STANEG Isolated Organism: 1.1 Antibiotic Interpretation JONATHAN Status Organism: 1.2 Antibiotic Interpretation JONATHAN Status Blood Culture 2 Vancomycin S F O:STAEPI Isolated O:STANEG Isolated Organism: 1.1 Antibiotic Interpretation JONATHAN Status Organism: 1.2 Antibiotic Interpretation JONATHAN Status Blood Culture 2 Ciprofloxacin S F O:STAEPI Isolated O:STANEG Isolated Organism: 1.1 Antibiotic Interpretation JONATHAN Status Organism: 1.2 Antibiotic Interpretation JONATHAN Status Blood Culture 2 Trimethoprim/Sulfa S F O:STAEPI Isolated O:STANEG Isolated Organism: 1.1 Antibiotic Interpretation JONATHAN Status Organism: 1.2 Antibiotic Interpretation JONATHAN Status Blood Culture 2 See Below For Report O:STAEPI Isolated O:STANEG Isolated Organism: 1.1 Antibiotic Interpretation JONATHAN Status Organism: 1.2 Antibiotic Interpretation JONATHNA Status Blood Culture 2 Azithromycin R F O:STAEPI Isolated O:STANEG Isolated Organism: 1.1 Antibiotic Interpretation JONATHAN Status Organism: 1.2 Antibiotic Interpretation JONATHAN Status Blood Culture 2 Daptomycin S F O:STAEPI Isolated O:STANEG Isolated Organism: 1.1 Antibiotic Interpretation JONATHAN Status Organism: 1.2 Antibiotic Interpretation JONATHAN Status Blood Culture 2 Levofloxacin R F O:STAEPI Isolated O:STANEG Isolated Organism: 1.1 Antibiotic Interpretation JONATHAN Status Organism: 1.2 Antibiotic Interpretation JONATHAN Status Blood Culture 2 Linezolid S F O:STAEPI Isolated O:STANEG Isolated Organism: 1.1 Antibiotic Interpretation JONATHAN Status Organism: 1.2 Antibiotic Interpretation JONATHAN Status Blood Culture 2 Oxacillin Jonathan R F O:STAEPI Isolated O:STANEG Isolated Organism: 1.1 Antibiotic Interpretation JONATHAN Status Organism: 1.2 Antibiotic Interpretation JONATHAN Status Blood Culture 2 Penicillin R F O:STAEPI Isolated O:STANEG Isolated Organism: 1.1 Antibiotic Interpretation JONATHAN Status Organism: 1.2 Antibiotic Interpretation JONATHAN Status Blood Culture 2 Tetracycline R F O:STAEPI Isolated O:STANEG Isolated Organism: 1.1 Antibiotic Interpretation JONATHAN Status Organism: 1.2 Antibiotic Interpretation JONATHAN Status Blood Culture 2 Vancomycin S F O:STAEPI Isolated O:STANEG Isolated Organism: 1.1 Antibiotic Interpretation JONATHAN Status Organism: 1.2 Antibiotic Interpretation JONATHAN Status Blood Culture 2 Ciprofloxacin R F O:STAEPI Isolated O:STANEG Isolated Organism: 1.1 Antibiotic Interpretation JONATHAN Status Organism: 1.2 Antibiotic Interpretation JONATHAN Status Blood Culture 2 Trimethoprim/Sulfa R F O:STAEPI Isolated O:STANEG Isolated Organism: 1.1 Antibiotic Interpretation JONATHAN Status Organism: 1.2 Antibiotic Interpretation JONATHAN Status Performing Lab: see note ML - [facility] SEE REPORT - Behavioral Sciences Instructor Id information not found for OBX-specific insurance producer legend BLOOD CULTURE ID PANEL Reviewed date:07/10/2025 11:01:17 AM Interpretation: Performing Lab: Notes/Report: SET #2- R. HAND [facility] , CTX-M NOT APPLICABLE NOT DETECTE IMP NOT APPLICABLE NOT DETECTE KPC NOT APPLICABLE NOT DETECTE mcr-1 NOT APPLICABLE NOT DETECTE mecA/C DETECTED NOT DETECTE RESULTS CALLED TO MORGAN PEÑA RN mecA/C and MREJ (MRSA) NOT APPLICABLE NOT DETECTE NDM NOT APPLICABLE NOT DETECTE OXA-48-like NOT APPLICABLE NOT DETECTE Ap/B NOT APPLICABLE NOT DETECTE VIM NOT APPLICABLE NOT DETECTE Source Blood Enterococcus faecalis NOT DETECTED NOT DETECTE Enterococcus faecium NOT DETECTED NOT DETECTE Listeria monocytogenes NOT DETECTED NOT DETECTE Staphylococcus spp. DETECTED NOT DETECTE RESULTS CALLED TO MORGAN PEÑA RN Staphylococcus aureus NOT DETECTED NOT DETECTE Staphylococcus epidermidis DETECTED NOT DETECTE RESULTS CALLED TO MORGAN PEÑA RN Staphylococcus lugdunensis NOT DETECTED NOT DETECTE Streptococcus spp. NOT DETECTED NOT DETECTE Streptococcus agalactiae NOT DETECTED NOT DETECTE Streptococcus pneumoniae NOT DETECTED NOT DETECTE Streptococcus pyogenes NOT DETECTED NOT DETECTE A. calcoaceticus-baumannii Cpx NOT DETECTED NOT DETECTE Bacteroides fragilis NOT DETECTED NOT DETECTE Enterobacterales NOT DETECTED NOT DETECTE Enterobacter cloacae complex NOT DETECTED NOT DETECTE Escherichia coli NOT DETECTED NOT DETECTE Klebsiella aerogenes NOT DETECTED NOT DETECTE Klebsiella oxytoca NOT DETECTED NOT DETECTE Klebsiella pneumoniae group NOT DETECTED NOT DETECTE Proteus spp. NOT DETECTED NOT DETECTE Salmonella spp. NOT DETECTED NOT DETECTE Serratia marcescens NOT DETECTED NOT DETECTE Haemophilus influenzae NOT DETECTED NOT DETECTE Neisseria meningitidis NOT DETECTED NOT DETECTE Pseudomonas aeruginosa NOT DETECTED NOT DETECTE Stenotrophomonas maltophilia NOT DETECTED NOT DETECTE Mirna albicans NOT DETECTED NOT DETECTE Mirna auris NOT DETECTED NOT DETECTE Mirna glabrata NOT DETECTED NOT DETECTE Mirna krusei NOT DETECTED NOT DETECTE Mirna parapsilosis NOT DETECTED NOT DETECTE Mirna tropicalis NOT DETECTED NOT DETECTE Cryptococcus neoformans/gattii NOT DETECTED NOT DETECTE Performing Lab: see note ML - [facility] LB CBC AUTO DIFF Reviewed date:07/10/2025 11:01:17 AM Interpretation: Performing Lab: Notes/Report: [facility] , White Blood Count 9.7 4.0-11.0 10 3/uL Red Blood Count 2.73 4.20-5.40 10 6/uL Hemoglobin 7.4 12.0-16.0 g/dL Hematocrit 23.2 36.0-48.0 % RESULTS CALLED TO JANY PARKER RN at 1146 Mean Corpuscular Volume 85.0 81.0-99.0 fL Mean Corpuscular Hemoglobin 27.1 26.7-34.0 pg Mean Corpuscular HGB Conc 31.9 29.9-35.2 g/dL Red Cell Distribution Width 15.4 11.0-15.0 % Platelet Count 128 150-450 10 3/uL Mean Platelet Volume 11.7 9.5-13.5 fL Performing Lab: see note ML - [facility] LB LACTATE or LACTIC ACID Reviewed date:07/10/2025 11:01:17 AM Interpretation: Performing Lab: Notes/Report: [facility] , Lactate/Lactic Acid 1.7 0.4-2.0 mmol/L Performing Lab: see note ML - [facility] LB MAGNESIUM Reviewed date:07/10/2025 11:01:17 AM Interpretation: Performing Lab: Notes/Report: [facility] , Magnesium 2.0 1.8-2.4 mg/dL Performing Lab: see note ML - [facility] LB POTASSIUM Reviewed date:07/10/2025 11:01:17 AM Interpretation: Performing Lab: Notes/Report: [facility] , Potassium 3.5 3.5-5.1 mmol/L Performing Lab: see note ML - [facility] LB PROF 14(COMP METB) Reviewed date:07/10/2025 11:01:17 AM Interpretation: Performing Lab: Notes/Report: [facility] , Sodium 138 136-145 mmol/L Potassium 2.9 3.5-5.1 mmol/L RESULTS MENDOZA D TO DELFINA CUETO RN at 1247 Chloride 97 98-107 mmol/L Carbon Dioxide 29.6 21.0-32.0 mmol/L Anion Gap 14.3 Glucose 251 74-106 mg/dL Blood Urea Nitrogen 82.0 7.0-18.0 mg/dL RESULT S CALLED TO DELFINA CUETO RN at 1247 Creatinine 2.16 0.55-1.02 mg/dL Estimated GFR ( [place] 26 >=60 mL/min/1.73m 2 Estimated GFR (Non- Eva 22 >=60 mL/min/1.73m 2 BUN Creatinine Ratio 38.0 Calcium 8.2 8.5-10.1 mg/dL Bilirubin Total 0.4 0.2-1.0 mg/dL Aspartate Amino Transferase 36 15-37 U/L Alanine Aminotransferase 24 14-59 U/L Alkaline Phosphatase 94 46-116 U/L Total Protein 6.0 6.4-8.2 g/dL Albumin Level 2.5 3.4-5.0 g/dL Globulin 3.5 Albumin Globulin Ratio 0.7 Performing Lab: see note - [facility] LB UA (CLEAN or CATCH) RUG HOOKER or M ICRO IF IND. Reviewed date:07/10/2025 11:01:17 AM Interpretation: Performing Lab: Notes/Report: [facility] , Color Urine LT. YELLOW YELLOW Clarity Urine CLEAR CLEAR Specific [place] Urine 1.015 1.005-1.025 pH Urine 6.0 5.0-9.0 Protein Urine NEGATIVE NEG/TRACE mg/dL Glucose Urine UA NEGATIVE NEGATIVE mg/dL Bilirubin Urine NEGATIVE NEGATIVE Ketones Urine NEGATIVE NEGATIVE mg/dL Blood Urine NEGATIVE NEGATIVE Nitrite Urine NEGATIVE NEGATIVE Urobilinogen Urine 0.2 0.2-1.0 EU/dL Leukocyte Esterase Urine NEGATIVE NEGATIVE Urine Microscopic Indicated NO Performing Lab: see note - [facility] LB Blood Culture 1 Reviewed date:07/10/2025 04:25:50 PM Interpretation: Performing Lab: Notes/Report: PEDS BOTTLE, LEFT 4ARM [facility] , Blood Culture 1 See Below For Report Blood Culture 1 NG3D NO GROWTH AT 36-48 HOURS. FINAL TO FOLLOW.^NO GROWTH AT 36-48 HOURS. FINAL TO FOLLOW. Performing Lab: see note - [facility] LB Prothrombin Time INR Reviewed date:07/10/2025 11:01:17 AM Interpretation: Performing Lab: Notes/Report: [facility] , Prothrombin Time 11.6 9.0-11.6 sec INR 1.11 DESIRED INR: 2.0-3.0 CONDITIONS NOT LISTED BELOW 2.5-3.5 FOR PROSTHETIC HEART VALVE REPLACEMENT 2.5-3.5 RECURRENT THROMBOSIS Performing Lab: see note - [facility] LB Manual Differential Reviewed date:07/10/2025 11:01:17 AM Interpretation: Performing Lab: Notes/Report: [facility] , Segmented Neutrophils % Manual 80.0 43.0-75.0 Band Neutrophils % 2.0 0-5 % Lymphocytes Percent Manual 12.0 20.5-60.0 % Monocytes Percent Manual 5.0 1.7-12.0 % Eosinophils Percent Manual 0.0 0.9-7.0 % Basophils Percent Manual 1.0 0.2-2.0 % Segmented Neut Absolute Manual 11.60 1.4-6.5 10 3/uL Band Neutrophils Absolute 0.3 0.0-0.3 10 3/uL Lymphocytes Absolute Manual 1.74 1.20-3.80 10 3/uL Monocytes Absolute Manual 0.72 0.30-0 .80 10 3/uL Eosinophils Absolute Manual 0.00 0.00-0.70 10 3/uL Basophils Abs Manual 0.14 0.00-0.10 1 0 3/uL Performing Lab: see note - [facility] LB Troponin I High Sensitivity Reviewed date:07/10/2025 11:01:17 AM Interpretation: Performing Lab: Notes/Report: [facility] , Troponin I High Sensitivity 192.2 4.0-51.3 pg/mL RESULTS CALLED TO DELFINA CUETO RN at 1247 CUT-OFF POINTS HAVE BEEN ESTABLISHED BASED ON THE FOURTH UNIVERSAL DEFINITION OF MYOCARDIAL INFARCTION. THE UPPER REFERENCE LIMIT (URL) OF TROPONIN, DEFINED THE 99TH PERCENTILE OF cTnI DISTRIBUTION IN A REFERENCE POPULATION, HAS BEEN CONFIRMED THE DECISION THRESHOLD FOR [place] DIAGNOSIS. 99TH PERCENTILE = 51.4 PG/ML NOTE: HIGH-SENSITIVITY TROPONIN ASSAY IS NOT INTENDED TO BE USED IN ISOLATION BUT SHOULD BE INTERPRETED IN CONJUNCTION WITH OTHER DIAGNOSTIC AND CLINICAL INFORMATION. Performing Lab: see note ML - [facility] LB Occult Blood* Reviewed date:07/10/2025 11:01:17 AM Interpretation: Performing Lab: Notes/Report: [facility] , Occult Blood Negative Performing Lab: see note - [facility] LB ECG 12 lead (Not yet reviewe d by provider) Interpretation: Performing Lab: Notes/Report: Source Facility: [facility]-[address] [place] [address] [place] [address] Electrocardiograph Report Signed Patient: VIDHYA GIORDANO MR#: [id number] : 1940 Acct:[id number] Age/Sex: 85 / F ADM Date: 07/08/25 Loc: MS 214-[address]: Magdy Muhammad M.D. Ordering Physician: Jackelyn Bass Date of Service: 07/08/25 Procedure(s): ECG 12 lead Accession Number(s): [id number] cc: [facility] Test Date: 2025-07-08 Pat Name: VIDHYA GIORDANO Department: Room: [facility] Gender: Female Student Services Director: : 1940 Requested By: 1854 Order Number: [id number] Reading MD: DESHAUN VAZQUEZ Measurements Intervals [place] Rate: 85 P: -27 MS: 186 QRS: -47 QRSD: 132 T: 6 QT: 428 QTc: 470 Interpretive Statements 1100 Sinus rhythm 2450 Right bundle branch block 2630 Left anterior fascicular block Bifascicular Block 7300 Indeterminate axis 9150 abnormal ECG Compared to ECG 03/05/2025 16:49:25 Right bundle-branch block now present Left anterior fascicular block now present Indeterminate axis now present First degree AV block no longer present Incomplete right bundle-branch block no longer present Electronically Signed On 07-11-2025 13:35:26 EDT by DESHAUN VAZQUEZ Dictated By: Deshaun Vazquez M.D. Signed By: 07/11/25 1335 07/11/25 1335 DD/ 1115 TD/TT: [employer] Teacher: [place] [id number] Electrocardiograph Report Signed Patient: VIDHYA GIORDANO MR#: [id number] : 1940 Acct:[id number] Age/Sex: 85 / F ADM Date: 07/08/25 Loc: MS 214-[address]: Magdy Muhammad M.D. Ordering Physician: Jackelyn Bass Date of Service: 07/08/25 Procedure(s): ECG 12 lead Accession Number(s): [id number] cc: [facility] Test Date: 2025-07-08 Pat Name: VIDHAY GIORDANO Department: 05 Room: [facility] Gender: Female Student Services Director: : 1940 Requested By: 1854 Order Number: [id number] Reading MD: DESHAUN VAZQUEZ Measurements Intervals [place] Rate: 85 P: -27 MS: 186 QRS: -47 QRSD: 132 T: 6 QT: 428 QTc: 470 Interpretive Statements 1100 Sinus rhythm 2450 Right bundle br anch block 2630 Left anterior fascicular block Bifascicular Block 7300 Indeterminate axis 9150 abnormal ECG Compared to ECG 03/05/2025 16:49:25 Right bundle-branch block now present Left anterior fascic ular block now present Indeterminate axis n ow present First degree AV bloc k no longer present Incomplete right bundle-branch block no longer present Electronically Scarlett d On 07-11-2025 13:35:26 EDT by DESHAUN VAZQUEZ Dictated By: Deshaun Vazquez M.D. Signed By: 07/11/255 07/11/25 133 DD/ 1115 TD/TT: [employer] Teacher: ABDULLAHI chest 1V Reviewed date:07/10/2025 11:01:17 AM Interpretation: Performing Lab: Notes/Report: Source Facility: [place] [address] XRay Report Signed Patient: VIDHYA GIORDANO MR#: [id number] : 1940 Acct:[id number] Age/Sex: 85 / F ADM Date: 07/08/25 Loc: ER Attending Dr: Ordering Physician: Jackelyn Bass Date of Service: 07/08/25 Procedure(s): XR chest 1V Accession Number(s): [id number] cc: ATIYA KELLER ; Jackelyn Bass [place] [address] Patient Name: VIDHYA GIORDANO MRN: [id number] date: 1940 Sex: F Assigned Patient Location: ER Current Patient Location: ER Accession/Order Number: [id number] Exam Date: 07/08/2025 14:00 Report Date: 07/08/2025 14:35 At the request of: JACKELYN BASS MD Procedure: XR chest 1V XR chest 1V 07/08/2025 2:13 PM SIGNS AND SYMPTOMS: Blurred vision and weakness PROTOCOL: Frontal radiograph of the chest COMPARISON: 06/25/2025 FINDINGS: The trachea is midline. Atherosclerotic changes are noted in the thoracic aorta. The heart and mediastinal structures are within normal limits. The lung parenchyma is clear. The bony thorax is intact. There is fusion hardware in the lower thoracic and upper lumbar spine. Surgical clips are noted in the left upper quadrant. XR/XR chest 1V IMPRESSION: No acute cardiopulmonary pathology. Impression dictated by: Cheng Bartlett M.D. 07/08/2025 2:35 PM Dictation Location: [place] [address] Electronically authenticated by: [id number] Y Date: 07/08/2025 14:35 Dictated By: Cheng Bartlett M.D. Signed By: 07/08/251436 DD/ 34 TD/TT: [employer] Education Teacher: [place] [address] XRay Report Signed Patient: VIDHYA GIORDANO MR#: [id number] : 1940 Acct:[id number] Age/Sex: 85 / F ADM Date: 07/08/25 Loc: ER Attending Dr: Ordering Physician: Jackelyn Bass Date of Service: 07/08/25 Procedure(s): XR caral st 1V Accession Number(s): [id number] cc: ATIYA KELLER ; Jackelyn Bass [address] [address] Patient Name: VIDHYA GIORDANO MRN: [id number] date: 1940 Sex: F Assigned Patient Location: ER Current Patient Location: ER Accession/Order Numb er: [id number] Exam Date: 07/08/2025 14:00 Report Date: 07/08/2025 14:35 At the request of: JACKELYN BASS MD Procedure: XR chest 1V XR chest 1V 2:13 PM SIGNS AND SYMPTOMS: Blurred vision and weakness PROTOCOL: Frontal radiograph of the chest COMPARISON: 06/25/2025 FINDINGS: The trachea is midli ne. Atherosclerotic changes are noted in the thoracic aorta. The heart and mediastinal structures are within normal limits. The lung parenchyma is clear. The bony thorax is intact. There is fusion hardware in the lowe r thoracic and upper lumbar spine. Surgical clips are noted in the left up per quadrant. X R/XR chest 1V IMPRESSION: No acute cardiopulmo nary pathology. Impression dictated by: Cheng Bartlett M.D. 07/08/2025 2:35 PM Dictation Location: [place] [address] Electronically authenticated by: [id number] Y Date: 07/08/2025 14:35 Dictated By: Cheng Bartlett M.D. Signed By: 07/08/25 1437 DD/ 34 TD/TT: [employer] Education Teacher: CT cervical spine wo con Reviewed date:07/10/2025 11:01:17 AM Interpretation: Performing Lab: Notes/Report: Source Facility: [place] [address] CT Scan Report Signed Patient: VIDHYA GIORDANO MR#: [id number] : 1940 Acct:[id number] Age/Sex: 85 / F ADM Date: 07/08/25 Loc: ER Attending Dr: Ordering Physician: Jackelyn Bass Date of Service: 07/08/25 Procedure(s): CT cervical spine wo con Accession Number(s): [id number] cc: ATIYA KELLER [place] [address] Patient Name: VIDHYA GIORDANO MRN: [id number] date: 1940 Sex: F Assigned Patient Location: ER Current Patient Location: ER Accession/Order Number: [id number] Exam Date: 07/08/2025 11:30 Report Date: 07/08/2025 12:01 At the request of: JACKELYN BASS MD Procedure: CT cervical spine wo con CT cervical spine wo con 07/08/2025 11:46 AM SIGN AND SYMPTOMS: left sided upper and lower extremity movement TECHNIQUE: Multi detector CT axial slices of the cervical spine were obtained without IV contrast. Volumetric acquisition sagittal, coronal, and 3-D reconstructions were performed and reviewed. CT was performed with one or more of the following dose reduction techniques: Automated exposure control, adjustment of the mA and/or kV according to patient size, or use of iterative reconstruction technique. COMPARISON: 05/15/2025 FINDINGS: There is preservation of the vertebral body heights. There is severe disc height loss at C4-C5, C5-6, and C6-C7. There is accompanying posterior decompression. There is facet hypertrophy throughout. No fractures or dislocations are seen. The alignment of the cervical spine is normal. Degenerative changes are noted at the craniocervical junction and atlantoaxial joint. There is pseudoarticulation of the posterior arch of C1 and the posterior elements of C2. The prevertebral soft tissues are within normal limits. Calcified plaque is noted in the carotid bifurcations. The paraspinous soft tissues are within normal limits. The lung apices are unremarkable. CT/CT cervical spine wo con IMPRESSION: No acute bony injury. Severe degenerative and postoperative changes are noted as above. Impression dictated by: Cheng Bartlett M.D. 07/08/2025 12:01 PM Dictation Location: [place] [address] Electronically authenticated by: [id number] Y Date: 07/08/2025 12:01 Dictated By: Cheng Bartlett M.D. Signed By: 07/08/25 1203 DD/ 1201 TD/TT: [employer] Education Teacher: [place] [address] CT Scan Report Signed Patient: VIDHYA GIORDANO MR#: [id number] : 1940 Acct:[id number] Age/Sex: 85 / F ADM Date: 07/08/25 Loc: ER Attending Dr: Ordering Physician: Jackelyn Bass Date of Service: 07/08/25 Procedure(s): CT cervical spine wo con Accession Number(s): [id number] cc: ATIYA KELLER [place] [id number] Patient Name: VIDHYA GIORDANO MRN: [id number] date: 1940 Sex: F Assigned Patient Location: ER Current Patient Location: ER Accession/Order Numb er: [id number] Exam Date: 07/08/2025 11:30 Report Date: 07/08/2025 12:01 At the request of: JACKELYN BASS MD Procedure: CT cervic al spine wo con CT cervical spine wo con 07/08/2025 11:46 AM SIGN AND SYMPTOMS: left sided upper and lower extremity movement TECHNIQUE: Multi detector CT axial slices of the cervical spine were obtained without IV contrast. Volumetric acquisition sagittal, coronal, and 3-D reconstructions were performed and reviewed. CT was performed with one or more of the following dos e reduction techniques: Automated exposure control, adjustment of the mA and/or kV according to patient size, or use of iterative reconstruction technique. COMPARISON: 05/15/2025 FINDINGS: There is preservatio n of the vertebral body heights. There is severe disc height loss at C4-C5 , C5-6, and C6-C7. There is accompanying posterior decompression. There is facet hypertrophy throughout. No fractures or dislocations are see n. The alignment of the cervical spine is normal. Degenerative changes are noted at the craniocervical junction and atlantoaxial joint. There is pseudoarticulation of the posterior arch of C1 and the posterior elements o f C2. The prevertebral soft tissues are within normal limits. Calcified pl aque is noted in the carotid bifurcations. The paraspinous soft tis sues are within normal limits. The lung apices are unremarkable. C T/CT cervical spine wo con IMPRESSION: No acute bony injury. Severe degenerative and postoperative changes are noted as above. Impression dictated by: Cheng Bartlett M.D. 07/08/2025 12:01 PM Dictation Location: [place] [address] Electronically authenticated by: [id number] Y Date: 07/08/2025 12:01 Dictated By: Cheng Bartlett M.D. Signed By: 07/08/25 1203 DD/ 1201 TD/TT: [employer] Teacher: CT stroke head/brain wo con Reviewed date:07/10/2025 11:01:17 AM Interpretation: Performing Lab: Notes/Report: Source Facility: [place] [address] CT Scan Report Signed Patient: VIDHYA GIORDANO MR#: [id number] : 1940 Acct:[id number] Age/Sex: 85 / F ADM Date: 07/08/25 Loc: ER Attending Dr: Ordering Physician: Jackelyn Bass Date of Service: 07/08/25 Procedure(s): CT stroke head/brain wo con Accession Number(s): [id number] cc: ATIYA KELLER [place] [address] Patient Name: VIDHYA GIORDANO MRN: [id number] date: 1940 Sex: F Assigned Patient Location: ER Current Patient Location: ER Accession/Order Number: [id number] Exam Date: 07/08/2025 11:29 Report Date: 07/08/2025 11:55 At the request of: JACKELYN BASS MD Procedure: CT stroke head/brain wo con CT stroke head/brain wo con 07/08/2025 11:47 AM SIGNS AND SYMPTOMS: new blurry vision and weakness TECHNIQUE:Multi-detector CT axial slices of the brain were obtained without IV contrast. CT was performed with one or more of the following dose reduction techniques: Automated exposure control, adjustment of the mA and/or kV according to patient size, or use of iterative reconstruction technique. COMPARISON: 06/26/2025 FINDINGS: There is no shift of the midline structures, acute intracranial bleeding, mass effects, or evidence of acute ischemia. The ventricular system is normal in size. The brainstem is within normal limits. There is gliosis and encephalomalacia in the left cerebellar hemisphere. This is consistent with a remote infarct. Periventricular white matter hypoattenuation is noted. There is a remote infarct in the left frontal periventricular white matter. There is age-related cortical atrophy. The visualized intraorbital contents, the visualized paranasal sinuses, and the infratemporal soft tissues show no acute abnormality. The osseous structures in the skull base and the calvarium show no abnormality. CT/CT stroke head/brain wo con IMPRESSION: No acute intrapelvic pathology. 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 Impression dictated by: Cheng Bartlett M.D. 07/08/2025 11:55 AM Dictation Location: [place] [address] Electronically authenticated by: [id number] Y Date: 07/08/2025 11:55 Dictated By: Cheng Bartlett M.D. Signed By: 07/08/25 1157 DD/ 1155 TD/TT: [employer] Education Teacher: [place] [address] CT Scan Report Signed Patient: VIDHYA GIORDANO MR#: [id number] : 1940 Acct:[id number] Age/Sex: 85 / F ADM Date: 07/08/25 Loc: ER Attending Dr: Ordering Physician: Jackelyn Bass Date of Service: 07/08/25 Procedure(s): CT str law head/brain wo con Accession Number(s): [id number] cc: ATIYA [facility] [id number] Patient Name: VIDHYA GIORDANO MRN: [id number] date: 1940 Sex: F Assigned Patient Location: ER Current Patient Location: ER Accession/Order Numb er: [id number] Exam Date: 07/08/2025 11:29 Report Date: 07/08/2025 11:55 At the request of: JACKELYN BASS MD Procedure: CT stroke head/brain wo con CT stroke head/brain wo con 07/08/2025 11:47 AM SIGNS AND SYMPTOMS: new blurry vision an d weakness TECHNIQUE:Multi-dete ctor CT axial slices of the brain were obtained without IV contrast. CT was performed with one or more of the following dose reduction techniques: Automate d exposure control, adjustment of the mA and/or kV according to patient size, or use of iterative reconstruction technique. COMPARISON: 06/26/2025 FINDINGS: There is n o shift of the midline structures, acute intracranial bleeding, mass effec ts, or evidence of acute ischemia. The ventricular system is normal in size. T he brainstem is within normal limits. There is gliosis and encephalomalacia in the left cerebellar hemisphere. This is consistent with a remote infarc t. Periventricular white matter hypoattenuation is noted. There is a remote infarct in the left frontal periventricular white matter. There is age-related cortical atrophy. The visualized intraorbital contents, the visualized paran leobardo sinuses, and the infratemporal soft tissues show no acute abnormality. T he osseous structures in the skull base and the calvarium show no abnormality. C T/CT stroke head/brain wo con IMPRESSION: No acute intrapelvic pathology. 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 Impression dictated by: Cheng Bartlett M.D. 07/08/2025 11:55 AM Dictation Location: [place] [address] Electronically authenticated by: [id number] Y Date: 07/08/2025 11:55 Dictated By: Cheng Bartlett M.D. Signed By: 07/08/25 1157 DD/ 1155 TD/TT: [employer] Teacher: CBC AUTO DIFF Reviewed date:07/10/2025 11:01:17 AM Interpretation: Performing Lab: Notes/Report: [facility] , White Blood Count 14.5 4.0-11.0 10 3/uL Red Blood Count 4.75 4.20-5.40 10 6/uL Hemoglobin 13.0 12.0-16.0 g/dL Hematocrit 40.3 36.0-48.0 % Mean Corpuscular Volume 84.8 81.0-99.0 fL Mean Corpuscular Hemoglobin 27.4 26.7-34.0 pg Mean Corpuscular HGB Conc 32.3 29.9-35.2 g/dL Red Cell Distribution Width 15.6 11.0-15.0 % Platelet Count 202 150-450 10 3/uL Mean Platelet Volume 12.1 9.5-13.5 fL Performing Lab: see note ML - [facility] LB Troponin I High Sensitivity Reviewed date:07/10/2025 11:01:17 AM Interpretation: Performing Lab: Notes/Report: [facility] , Troponin I High Sensitivity 199.9 4.0-51.3 pg/mL RESULTS CALLED TO JANY PARKER RN at 1420 CUT-OFF POINTS HAVE BEEN ESTABLISHED BASED ON THE FOURTH UNIVERSAL DEFINITION OF MYOCARDIAL INFARCTION. THE UPPER REFERENCE LIMIT (URL) OF TROPONIN, DEFINED THE 99TH PERCENTILE OF cTnI DISTRIBUTION IN A REFERENCE POPULATION, HAS BEEN CONFIRMED THE DECISION THRESHOLD FOR [place] DIAGNOSIS. 99TH PERCENTILE = 51.4 PG/ML NOTE: HIGH-SENSITIVITY TROPONIN ASSAY IS NOT INTENDED TO BE USED IN ISOLATION BUT SHOULD BE INTERPRETED IN CONJUNCTION WITH OTHER DIAGNOSTIC AND CLINICAL INFORMATION. Performing Lab: see note ML - [facility] LB Troponin I High Sensitivity Reviewed date:07/10/2025 11:01:17 AM Interpretation: Performing Lab: Notes/Report: [facility] , Troponin I High Sensitivity 194.5 4.0-51.3 pg/mL RESULTS CALLED TO GISELE GAMEZ RN @BY Jackie Diaomnd at 205 CUT-OFF POINTS HAVE BEEN ESTABLISHED BASED ON THE FOURTH UNIVERSAL DEFINITION OF MYOCARDIAL INFARCTION. THE UPPER REFERENCE LIMIT (URL) OF TROPONIN, DEFINED THE 99TH PERCENTILE OF cTnI DISTRIBUTION IN A REFERENCE POPULATION, HAS BEEN CONFIRMED THE DECISION THRESHOLD FOR [place] DIAGNOSIS. 99TH PERCENTILE = 51.4 PG/ML NOTE: HIGH-SENSITIVITY TROPONIN ASSAY IS NOT INTENDED TO BE USED IN ISOLATION BUT SHOULD BE INTERPRETED IN CONJUNCTION WITH OTHER DIAGNOSTIC AND CLINICAL INFORMATION. Performing Lab: see note ML - [facility] LB Blood Culture 1 (Not yet rev iewed by provider) Interpretation: Performing Lab: Notes/Report: LEFT HAND [facility] , Blood Culture 1 See Below For Report Blood Culture 1 NG3D NO GROWTH AT 36-48 HOURS. FINAL TO FOLLOW.^NO GROWTH AT 36-48 HOURS. FINAL TO FOLLOW. Performing Lab: see note ML - [facility] LB CBC AUTO DIFF Reviewed date:07/10/2025 11:01:17 AM Interpretation: Performing Lab: Notes/Report: [facility] , White Blood Count 14.2 4.0-11.0 10 3/uL Red Blood Count 4.47 4.20-5.40 10 6/uL Hemoglobin 12.1 12.0-16.0 g/dL Hematocrit 38.5 36.0-48.0 % Mean Corpuscular Volume 86.1 81.0-99.0 fL Mean Corpuscular Hemoglobin 27.1 26.7-34.0 pg Mean Corpuscular HGB Conc 31.4 29.9-35.2 g/dL Red Cell Distribution Width 16.1 11.0-15.0 % Platelet Count 186 150-450 10 3/uL Mean Platelet Volume 12.2 9.5-13.5 fL Neutrophils Percent Auto 71.6 43.0-75.0 % Lymphocytes Percent Auto 13.2 20.5-60.0 % Monocytes Percent Auto 6.4 1.7-12.0 % Eosinophils Percent Auto 0.8 0.9-7.0 % Basophils Percent Auto 0.6 0.2-2.0 % Immature Granulocytes Pct Auto 7.4 0.0-0.5 % Neutrophils Absolute Auto 10.2 1.4-6.5 10 3/uL Lymphocytes Absolute Auto 1.9 1.2-3.8 10 3/uL Monocytes Absolute Auto 0.9 0.3-0.8 10 3/uL Eosinophils Absolute Auto 0.1 0.0-0.7 10 3/uL Basophils Absolute Auto 0.1 0.0-0.1 10 3/uL Immature Granulocytes Abs Auto 1.05 0.00-0.03 10 3/uL Performing Lab: see note ML - [facility] PROF CHEM 8 (BAS METB) Reviewed date:07/10/2025 11:01:17 AM Interpretation: Performing Lab: Notes/Report: [facility] , Sodium 141 136-145 mmol/L Potassium 3.3 3.5-5.1 mmol/L Chloride 101 98-107 mmol/L Carbon Dioxide 30.6 21.0-32.0 mmol/L Anion Gap 12.7 Glucose 173 74-106 mg/dL Blood Urea Nitrogen 74.0 7.0-18.0 mg/dL Creatinine 2.01 0.55-1.02 mg/dL Estimated GFR ( Simona 28 >=60 mL/min/1.73m 2 Estimated GFR (Non- Eva 23 >=60 mL/min/1.73m 2 BUN Creatinine Ratio 36.8 Calcium 8.4 8.5-10.1 mg/dL Performing Lab: see note ML - [facility] PROF CHEM 8 (BAS METB) Reviewed date:07/10/2025 11:01:17 AM Interpretation: Performing Lab: Notes/Report: [facility] , Sodium 144 136-145 mmol/L Potassium 3.7 3.5-5.1 mmol/L Chloride 108 98-107 mmol/L Carbon Dioxide 26.9 21.0-32.0 mmol/L Anion Gap 12.8 Glucose 134 74-106 mg/dL Blood Urea Nitrogen 55.0 7.0-18.0 mg/dL Creatinine 1.78 0.55-1.02 mg/dL Estimated GFR ( Simona 33 >=60 mL/min/1.73m 2 Estimated GFR (Non- Eva 27 >=60 mL/min/1.73m 2 BUN Creatinine Ratio 30.9 Calcium 8.5 8.5-10.1 mg/dL Performing Lab: see note ML - [facility] ECG 12 lead (Not yet reviewe d by provider) Interpretation: Performing Lab: Notes/Report: Source Facility: [place] [address] Electrocardiograph Report Signed Patient: VIDHYA GIORDANO MR#: [id number] : 1940 Acct:[id number] Age/Sex: 85 / F ADM Date: 07/08/25 Loc: MS 214- Attending Dr: Magdy Muhammad M.D. Ordering Physician: Celio Birch M.D. Date of Service: 07/10/25 Procedure(s): ECG 12 lead Accession Number(s): [id number] cc: [facility] Test Date: 2025-07-10 Pat Name: VIDHYA GIORDANO Department: Room: 214 Gender: Female Student Services Director: : 1940 Requested By: CELIO BIRCH Order Number: [id number] Shelbi MD: DESHAUN VAZQUEZ Measurements Intervals [place] Rate: 76 P: 24 MS: 197 QRS: -21 QRSD: 134 T: 11 QT: 444 QTc: 502 Interpretive Statements SINUS RHYTHM INDETERMINATE AXIS RIGHT BUNDLE BRANCH BLOCK [120+ ms QRS DURATION, UPRIGHT V1, 40+ ms S IN I/aVL/V4/V5/V6] Compared to ECG 07/08/2025 11:15:34 Left anterior fascicular block no longer present Electronically Signed On 07-11-2025 13:57:18 EDT by DESHAUN VAZQUEZ Dictated By: Deshaun Vazquez M.D. Signed By: 07/11/251356 DD/ 46 TD/TT: [employer] Education Teacher: [place] [address] Electrocardiograph Report Signed Patient: VIDHYA GIORDANO MR#: [id number] : 1940 Acct:[id number] Age/Sex: 85 / F ADM Date: 07/08/25 Loc: MS 214-[address]: Magdy Muhammad M.D. Ordering Physician: Celio Birch M.D. Date of Service: 07/10/25 Procedure(s): ECG 12 lead Accession Number(s): [id number] cc: [facility] Test Date: 2025-07-10 Pat Name: VIDHYA GIORDANO Department: 05 Room: [facility] Gender: Female Student Services Director: : 1940 Requested By: CELIO BIRCH Order Number: [id number] Reading MD: DESHAUN VAZQUEZ Measurements Intervals [place] Rate: 76 P: 24 MS: 197 QRS: -21 QRSD: 134 T: 11 QT: 444 QTc: 502 Interpretive Statements SINUS RHYTHM INDETERMINATE AXIS RIGHT BUNDLE BRANCH BLOCK [120+ ms QRS DURATION, UPRIGHT V1, 40+ ms S IN I/aVL/V4/V5/V6] Compared to ECG 07/08/2025 11:15:34 Left anterior fascic ular block no longer present Electronically Scarlett d On 07-11-2025 13:57:18 EDT by DESHAUN VAZQUEZ Dictated By: Deshaun Vazquez M.D. Signed By: 07/11/251356 DD/ 46 TD/TT: [employer] Teacher: MARIA VICTORIA echo doppler complete Reviewed date:07/10/2025 04:25:50 PM Interpretation: Performing Lab: Notes/Report: Source Facility: [place] [id number] Cardiology Report Signed Patient: VIDHYA GIORDANO MR#: [id number] : 1940 Acct:[id number] Age/Sex: 85 / F ADM Date: 07/08/25 Loc: MS 214-[address]: Magdy Muhammad M.D. Ordering Physician: Magdy Muhammad M.D. Date of Service: 07/10/25 Procedure(s): CA echo doppler complete Accession Number(s): [id number] cc: ATIYA KELLER ; Magdy Muhammad M.D. Patient Name: VIDHYA GIORDANO MR#: [id number] : 1940 Exam Date: 07/10/2025 Ordering Doctor: MAGDY MUHAMMAD ECHOCARDIOGRAM REPORT PROCEDURE: CA ECHO DOPPLER COMPLETE INDICATIONS: NSTEMI, hypertension, diabetes, chronic kidney disease COMPARISON: None. DESCRIPTION: COMPLETE ECHOCARDIOGRAM Real-time transthoracic echocardiography with 2D, M-mode, spectral and color flow Doppler performed. QUALITY: Technical quality was good. LEFT VENTRICLE: Normal chamber size. Normal left ventricular wall thickness. Velocities are increased in the left ventricular outflow tract likely related to hyperdynamic left ventricular systolic function. LV EF: Global left ventricular systolic function is hyperdynamic; visually estimated ejection fraction is 70 to 75%. No significant wall motion abnormalities. DIASTOLIC: Grade II diastolic dysfunction. ATRIAL SEPTUM: Visually appears intact. LEFT ATRIUM: Mild dilatation. RIGHT ATRIUM: Normal chamber size. RIGHT VENTRICLE: Normal chamber size. Normal right ventricular systolic function. TRICUSPID VALVE: Normal mobility and thickness. No stenosis with no regurgitation. MITRAL VALVE: Normal mobility and thickness. No evidence of mitral valve stenosis. Mild mitral annular calcification. No mitral regurgitation. AORTIC VALVE: Normal trileaflet appearance. No visible sclerosis. Normal leaflet mobility. No evidence of aortic valve stenosis. No aortic regurgitation. AORTIC ROOT: Normal diameter and appearance. Ascending aorta is normal in size. PULMONIC VALVE: Normal thickness and mobility. No stenosis. Trivial regurgitation. PERICARDIUM: Anterior free space; trivial effusion versus fat pad. IVC: Collapses with inspiration. IVC is normal in size. CONCLUSION: Global left ventricular systolic function is hyperdynamic; visually estimated ejection fraction is 70 to 75% Normal right ventricular size and systolic function The left atrium is mildly dilated Grade 2 diastolic dysfunction No significant valvular abnormalities Anterior free space; trivial effusion versus fat pad Adult Echocardiography Procedure Report Left Ventricle LVEDD (3.7 - 5.6 cm): 4.20 cm LVESD (2.2 - 4.0 cm): 3.01 cm LVIVS thickness (0.6 - 1.2 cm): 0.96 cm LVPW thickness (0.5 - 1.0 cm): 0.77 cm e': 0.04 m/s E - e': 16.25 LVOT Max Gradient: 12.54 mm[Hg] LVOT Area (cm2): 1.77 m/s Peak Velocity (LVOT): 1.77 m/s Mean Velocity (LVOT): LVOT Diameter 2.06 cm Left Ventricular Ejection Fraction: Left Atrium LA Volume Index (2D A2C): 39.24 ml/m2 Left Atrium Systolic Dimension: 2.92 cm Mitral Valve MV E to A Ratio: 0.77 MV Max Gradient: MV Mean Gradient: Mitral Valve A-Wave Peak Velocity: 0.84 m/s Mitral Valve E-Wave Peak Velocity: 0.65 m/s Cardiovascular Orifice Area: Right Ventricle RV Internal Diastolic Dimension: Aorta AO Root Diam: 3.20 cm Ascending Ao Diam: 2.90 cm Aortic Valve AoV Area (Peak Aaron): 3.57 cm2, 3.57 cm2 AoV Area (VTI): Deceleration Real: Pressure Half-Time: Peak Velocity(Antegrade Flow): 1.66 m/s Peak Gradient(Antegrade Flow): 11.00 mm[Hg] Mean Velocity(Antegrade Flow): 1.12 m/s Mean Gradient(Antegrade Flow): 5.77 mm[Hg] Velocity Time Integral: 30.97 cm Tricuspid Valve Peak Velocity (Regurgitant Flow): Peak Velocity: Pulmonic Valve Mean Gradient: Mean Velocity: Peak Velocity: Peak Gradient: 5.14 mm[Hg], 5.20 mm[Hg] Right Atrium Right Atrium Systolic Pressure: 27.19 ml, 27.19 ml Dictated by: Deshaun Vazquez M.D. on 07/10/2025 at 13:33 Approved by: Deshaun Vazquez M.D. on 07/10/2025 at 13:38 Dictated By: Deshaun Vazquez M.D. Signed By: 07/10/259 DD/ 37 TD/TT: [employer] Teacher: [address] [address] Cardiology Report Signed Patient: VIDHYA GIORDANO MR#: [id number] : 1940 Acct:[id number] Age/Sex: 85 / F ADM Date: 07/08/25 Loc: MS 214-[address]: Magdy Muhammad M.D. Ordering Physician: Magdy Muhammad M.D. Date of Service: 07/10/25 Procedure(s): CA ech o doppler complete Accession Number(s): [id number] cc: ATIYA KELLER ; Magdy Muhammad M.D. Patient Name: VIDHYA GIORDANO MR#: [id number] : 1940 Exam Date: 07/10/2025 Ordering Doctor: JOELLE MUHAMMAD ECHOCARDIOGRAM REPORT PROCEDURE: CA ECHO DOPPLER COMPLETE INDICATIONS: NSTEMI, hypertension, diabetes, chronic kidney disease COMPARISON: None. DESCRIPTION: COMPLET E ECHOCARDIOGRAM Real-time transthoracic echocardiography wit h 2D, M-mode, spectral and color flow Doppler performed. QUALITY: Technical quality was good. LEFT VENTRICLE: Norm al chamber size. Normal left ventricular wall thickness. Velocitie s are increased in the left ventricular outflow tract likely related to hyperdynamic left ventricular systolic function. LV EF: Global left ventricular systolic function is hyperdynamic; visually estimated ejection fraction is 70 to 75%. No significant wall motion abnormalities. DIASTOLIC: Grade II diastolic dysfunction. ATRIAL SEPTUM: Visua lly appears intact. LEFT ATRIUM: Mild dilatation. RIGHT ATRIUM: Normal chamber size. RIGHT VENTRICLE: Nor mal chamber size. Normal right ventricular systolic function. TRICUSPID VALVE: Nor mal mobility and thickness. No stenosis with no regurgitation. MITRAL VALVE: Normal mobility and thickness. No evidence of mitral valve stenosis. Mild demetria l annular calcification. No mitral regurgitation. AORTIC VALVE: Normal trileaflet appearance. No visible sclerosis. Normal leaflet mobility. No evidence of aortic valve stenosis. No aortic regurgitation. AORTIC ROOT: Normal diameter and appearance. Ascending aorta is normal in size. PULMONIC VALVE: Norm al thickness and mobility. No stenosis. Trivial regurgitation. PERICARDIUM: Anterio r free space; trivial effusion versus fat pad. IVC: Collapses with inspiration. IVC is normal in size. CONCLUSION: Global left ventricu lar systolic function is hyperdynamic; visually estimated ejection fraction is 70 to 75% Normal right ventric ular size and systolic function The left atrium is mildly dilated Grade 2 diastolic dysfunction No significant valvu lar abnormalities Anterior free space; trivial effusion versus fat pad Adult Echocardiograp hy Procedure Report Left Ventricle LVEDD (3.7 - 5.6 cm) : 4.20 cm LVESD (2.2 - 4.0 cm) : 3.01 cm LVIVS thickness (0.6 - 1.2 cm): 0.96 cm LVPW thickness (0.5 - 1.0 cm): 0.77 cm e': 0.04 m/s E - e': 16.25 LVOT Max Gradient: 1 2.54 mm[Hg] LVOT Area (cm2): 1.7 7 m/s Peak Velocity (LVOT) : 1.77 m/s Mean Velocity (LVOT): LVOT Diameter 2.06 cm Left Ventricular Ejection Fraction: Left Atrium LA Volume Index (2D A2C): 39.24 ml/m2 Left Atrium Systolic Dimension: 2.92 cm Mitral Valve MV E to A Ratio: 0.77 MV Max Gradient: MV Mean Gradient: Mitral Valve A-Wave Peak Velocity: 0.84 m/s Mitral Valve E-Wave Peak Velocity: 0.65 m/s Cardiovascular Orifi ce Area: Right Ventricle RV Internal Diastoli c Dimension: Aorta AO Root Diam: 3.20 cm Ascending Ao Diam: 2 .90 cm Aortic Valve AoV Area (Peak Aaron): 3.57 cm2, 3.57 cm2 AoV Area (VTI): Deceleration Real: Pressure Half-Time: Peak Velocity(Antegr larisa Flow): 1.66 m/s Peak Gradient(Antegr larisa Flow): 11.00 mm[Hg] Mean Velocity(Antegr larisa Flow): 1.12 m/s Mean Gradient(Antegr larisa Flow): 5.77 mm[Hg] Velocity Time Integr al: 30.97 cm Tricuspid Valve Peak Velocity (Regurgitant Flow): Peak Velocity: Pulmonic Valve Mean Gradient: Mean Velocity: Peak Velocity: Peak Gradient: 5.14 mm[Hg], 5.20 mm[Hg] Right Atrium Right Atrium Systoli c Pressure: 27.19 ml, 27.19 ml Dictated by: Deshaun Vazquez M.D. on 07/10/2025 at 13:33 Approved by: Deshaun Vazquez M.D. on 07/10/2025 at 13:38 Dictated By: Deshaun Vazquez M.D. Signed By: 07/10/25 1339 DD/ 1338 TD/TT: [employer] Education Teacher: CT abdomen pelvis wo con Reviewed date:06/29/2025 08:54:38 AM Interpretation: Performing Lab: Notes/Report: Source Facility: [place] [address] CT Scan Report Signed Patient: VIDHYA GIORDANO MR#: [id number] : 1940 Acct:[id number] Age/Sex: 85 / F ADM Date: 06/25/25 Loc: MS 232-[address]: Magdy Muhammad M.D. Ordering Physician: Magdy Muhammad M.D. Date of Service: 06/28/25 Procedure(s): CT abdomen pelvis wo con Accession Number(s): [id number] cc: ATIYA KELLER [place] [address] Patient Name: VIDHYA GIORDANO MRN: [id number] date: 1940 Sex: F Assigned Patient Location: MS Current Patient Location: MS Accession/Order Number: [id number] Exam Date: 06/28/2025 22:02 Report Date: 06/28/2025 22:57 At the request of: MAGDY MUHAMMAD MD Procedure: CT abdomen pelvis wo con CT Abdomen and Pelvis withoutcontrast TECHNIQUE: Axial imaging with 2-D reconstruction. . The CT exam was performed using one or more the following dose reduction techniques: Automated exposure control, adjustment of the MA and/or Kv according to patient size, or use of the iterative reconstruction technique. COMPARISON: None History: Constipation. Assessment for obstruction LIMITATIONS: None LOWER THORAX mild atelectasis/scarring. LIVER: Unremarkable GALLBLADDER: Cholecystectomy clips identified. BILE DUCTS: No dilatation SPLEEN: Unremarkable PANCREAS: Unremarkable ADRENAL GLANDS: Unremarkable KIDNEYS:Unremarkable AORTA: No abdominal aortic aneurysm identified. Atherosclerosis RETROPERITONEUM: No significant retroperitoneal abnormalities identified. MESENTERY:Unremarkable STOMACH:Unremarkable SMALL BOWEL: The small bowel loops are nondistended. APPENDIX: The appendix is normal. COLON: Moderate burden of stool throughout the colon. URINARY BLADDER: Urinary bladder is unremarkable. REPRODUCTIVE SYSTEM: Reproductive structures are unremarkable. PNEUMOPERITONEUM: None PERITONEAL FLUID:None BONY STRUCTURES: Spinal fixation hardware ABDOMINAL WALL: Unremarkable CT/CT abdomen pelvis wo con IMPRESSION: No acute findings. Moderate constipation. No bowel obstruction. No focal inflammatory changes. Impression dictated by: Mark Funez M.D. 06/28/2025 10:57 PM [facility]ictation [facility] [place] Electronically authenticated by: [id number] Y Date: 06/28/2025 22:57 Dictated By: Mark Funez D.O. Signed By: 06/28/252299 DD/ 56 TD/TT: Adventure Education Teacher: [place] [address] CT Scan Report Signed Patient: VIDHYA GIORDANO MR#: [id number] : 1940 Acct:[id number] Age/Sex: 85 / F ADM Date: 06/25/25 Loc: MS 232-[address]: Magdy Muhammad M.D. Ordering Physician: Magdy Muhammad M.D. Date of Service: 06/28/25 Procedure(s): CT abd omen pelvis wo con Accession Number(s): [id number] cc: ATIYA KELLER [address] [address] Patient Name: VIDHYA GIORDANO MRN: [id number] date: 1940 Sex: F Assigned Patient Location: MS Current Patient Location: MS Accession/Order Numb er: [id number] Exam Date: 06/28/2025 22:02 Report Date: 06/28/2025 22:57 At the request of: MAGDY MUHAMMAD MD Procedure: CT abdome n pelvis wo con CT Abdomen and Pelvi s withoutcontrast TECHNIQUE: Axial dory ging with 2-D reconstruction. . The CT exam was performed using one or more th e following dose reduction techniques: Automated exposure control, adjustment of the MA and/or Kv according to patient size, or use of the iterative reconstruction technique. COMPARISON: None History: Constipatio n. Assessment for obstruction LIMITATIONS: None LOWER THORAX mild atelectasis/scarring. LIVER: Unremarkable GALLBLADDER: Cholecystectomy clips identified. BILE DUCTS: No dilatation SPLEEN: Unremarkable PANCREAS: Unremarkable ADRENAL GLANDS: Unremarkable KIDNEYS:Unremarkable AORTA: No abdominal aortic aneurysm identified. Atherosclerosis RETROPERITONEUM: No significant retroperitoneal abnormalities identified. MESENTERY:Unremarkable STOMACH:Unremarkable SMALL BOWEL: The sma ll bowel loops are nondistended. APPENDIX: The append ix is normal. COLON: Moderate phoebe en of stool throughout the colon. URINARY BLADDER: Uri nary bladder is unremarkable. REPRODUCTIVE SYSTEM: Reproductive structures are unremarkable. PNEUMOPERITONEUM: None PERITONEAL FLUID:None BONY STRUCTURES: Spi nal fixation hardware ABDOMINAL WALL: Unremarkable C T/CT abdomen pelvis wo con IMPRESSION: No acute findings. Moderate constipation. No bowel obstruction. No focal inflammator y changes. Impression dictated by: Mark Funez M.D. 06/28/2025 10:57 PM Dictation Location: [place] [address] Electronically authenticated by: [id number] Y Date: 06/28/2025 22:57 Dictated By: Mark Funez D.O. Signed By: 06/28/252299 DD/ 56 TD/TT: [employer] Education Teacher: CBC AUTO DIFF Reviewed date:06/26/2025 08:33:44 AM Interpretation: Performing Lab: Notes/Report: [facility] , White Blood Count 9.4 4.0-11.0 10 3/uL Red Blood Count 4.08 4.20-5.40 10 6/uL Hemoglobin 11.0 12.0-16.0 g/dL Hematocrit 35.0 36.0-48.0 % Mean Corpuscular Volume 85.8 81.0-99.0 fL Mean Corpuscular Hemoglobin 27.0 26.7-34.0 pg Mean Corpuscular HGB Conc 31.4 29.9-35.2 g/dL Red Cell Distribution Width 15.7 11.0-15.0 % Platelet Count 254 150-450 10 3/uL Mean Platelet Volume 10.1 9.5-13.5 fL Neutrophils Percent Auto 51.9 43.0-75.0 % Lymphocytes Percent Auto 32.7 20.5-60.0 % Monocytes Percent Auto 10.8 1.7-12.0 % Eosinophils Percent Auto 2.1 0.9-7.0 % Basophils Percent Auto 0.9 0.2-2.0 % Immature Granulocytes Pct Auto 1.6 0.0-0.5 % Neutrophils Absolute Auto 4.9 1.4-6.5 10 3/uL Lymphocytes Absolute Auto 3.1 1.2-3.8 10 3/uL Monocytes Absolute Auto 1.0 0.3-0.8 10 3/uL Eosinophils Absolute Auto 0.2 0.0-0.7 10 3/uL Basophils Absolute Auto 0.1 0.0-0.1 10 3/uL Immature Granulocytes Abs Auto 0.15 0.00-0.03 10 3/uL Performing Lab: see note ML - [facility] LB MR cervical spine wo con Reviewed date:05/15/2025 07:26:45 PM Interpretation: Performing Lab: Notes/Report: Source Facility: [place] [address] Magnetic Resonance Report Signed Patient: VIDHYA GIORDANO MR#: [id number] : 1940 Acct:[id number] Age/Sex: 84 / F ADM Date: 05/15/25 Loc: MRI Attending Dr: Kael Adkins M.D. Ordering Physician: Kael Adkins M.D. Date of Service: 05/15/25 Procedure(s): MR cervical spine wo con Accession Number(s): [id number] cc: ATIYA KELLER ; Kael Adkins M.D. [place] [address] Patient Name: VIDHYA GIORDANO MRN: [id number] date: 1940 Sex: F Assigned Patient Location: MRI Current Patient Location: MRI Accession/Order Number: [id number] Exam Date: 05/15/2025 15:07 Report Date: 05/15/2025 15:20 At the request of: KAEL ADKINS MD Procedure: MR cervical spine wo con [...] Bartlett M.D. 05/15/2025 3:20 PM Dictation Location: [place] [address] Electronically authenticated by: [id number] Y Date: 05/15/2025 15:20 Dictated By: Cheng Bartlett M.D. Signed By: 05/15/25 1523 DD/ 1520 TD/TT: [employer] Teacher: [place] [address] Magnetic Resonance Report Signed Patient: VIDHYA GIORDANO MR#: [id number] : 1940 Acct:[id number] Age/Sex: 84 / F ADM Date: 05/15/25 Loc: MRI Attending Dr: Julia Adkins M.D. Ordering Physician: Kael Adkins M.D. Date of Service: 05/15/25 Procedure(s): MR cervical spine wo con Accession Number(s): [id number] cc: ATIYA KELLER ; Kael Adkins M.D. [place] [address] Patient Name: VIDHYA GIORDANO MRN: [id number] date: 1940 Sex: F Assigned Patient Location: MRI Current Patient Location: MRI Accession/Order Numb er: [id number] Exam Date: 05/15/2025 15:07 Report Date: 05/15/2025 15:20 At the request of: KAEL ADKINS MD Procedure: MR cervic al spine wo [...] Bartlett M.D. 05/15/2025 3:20 PM Dictation Location: [place] [address] Electronically authenticated by: [id number] Y Date: 05/15/2025 15:20 Dictated By: Cheng Bartlett M.D. Signed By: 05/15/25 1523 DD/ 1520 TD/TT: Adventure Education Teacher: URINE CULTURE Reviewed date:05/03/2025 12:01:18 PM Interpretation: Performing Lab:[facility] ([facility]), [address] [place], [place] [address], [address]. [address] PH:[phone] Notes/Report: URINE CULTURE SEE RESULTS BELOW SPECIMEN SOURCE Urine Urine, Clean Catch Midstream CULTURE RESULTS ORGANISM 1: ESCHERICHIA COLI >100,000 CFU/mL Escherichia coli REPORT STATUS FINAL 05/03/2025 ESCHERICHIA COLI Interpretation Ampicillin <=2.0 S AMP/SULBACTAM <=2.0 S PIPERACIL/TAZOBACTAM <=4.0 S Cefazolin (non-urinary) 2.0 S Cefazolin (urinary) 2.0 S Ceftriaxone <=0.25 S Gentamicin <=1.0 S Ciprofloxacin <=0.06 S Levofloxacin <=0.12 S Nitrofurantoin <=16.0 S Trimethoprim + Sulfamethoxazole<=1. 0 S Urine received without preservative - delays in transport may affect results. Interpret with caution and clinical correlation is recommended. PERFORMED AT [address] [address] BMP w/GFR Reviewed date:04/11/2025 09:49:53 PM Interpretation: [...] not use a race coefficient. PERFORMED AT [address] [place] [address] PROF CHEM 8 (BAS METB) Reviewed date:03/08/2025 12:30:42 PM Interpretation: Performing Lab: Notes/Report: [facility] , Sodium 139 136-145 mmol/L Potassium 4.3 [...] mg/dL Performing Lab: see note ML - [facility] Urine Culture - FR Reviewed date:03/12/2025 08:01:02 PM Interpretation: Performing Lab: Notes/Report: [facility] , Urine Culture - FR See Below For Report Urine Culture - [facility] 25,000 colonies/ml mixed Urine Culture - FR bacterial skin contaminants Urine Culture - [facility] 25,000 colonies/ml mixed Urine Culture - FR 2 Days Urine Culture - [facility] 25,000 colonies/ml mixed Urine Culture - FR Urine Culture - [facility] 25,000 colonies/ml mixed Urine Culture - FR Testing performed a [facility] Urine Culture - [facility] 25,000 colonies/ml mixed Urine Culture - FR [address] [place] [address] Urine Culture - [facility] 25,000 colonies/ml mixed Performing Lab: see note ML - [facility] LB PROF CHEM 8 (BAS METB) Reviewed date:03/07/2025 04:59:39 PM Interpretation: Performing Lab: Notes/Report: [facility] , Sodium 140 136-145 mmol/L Potassium 4.7 3.5-5.1 mmol/L Chloride 103 98-107 mmol/L Carbon Dioxide 30.5 21.0-32.0 mmol/L Anion Gap 11.2 Glucose 116 74-106 mg/dL Blood Urea Nitrogen 29.0 7.0-18.0 mg/dL Creatinine 2.13 0.55-1.02 mg/dL Estimated GFR ( Simona 27 >=60 mL/min/1.73m 2 Estimated GFR (Non- Eva 22 >=60 mL/min/1.73m 2 BUN Creatinine Ratio 13.6 Calcium 9.0 8.5-10.1 mg/dL Performing Lab: see note - [facility] LB CBC AUTO DIFF Reviewed date:03/07/2025 04:59:39 PM Interpretation: Performing Lab: Notes/Report: [facility] , White Blood Count 7.3 4.0-11.0 10 [...] 3/uL Performing Lab: see note ML - [facility] PROF CHEM 8 ([facility] METB) Reviewed date:03/07/2025 04:59:39 PM Interpretation: Performing Lab: Notes/Report: [facility] , Sodium 140 136-145 mmol/L Potassium 5.1 3.5-5.1 mmol/L Chloride 102 98-107 mmol/L Carbon Dioxide 28.1 21.0-32.0 mmol/L Anion Gap 15.0 Glucose 119 74-106 mg/dL Blood Urea Nitrogen 26.0 7.0-18.0 mg/dL Creatinine 2.28 0.55-1.02 mg/dL Estimated GFR ( Simona 25 >=60 mL/min/1.73m 2 Estimated GFR (Non- Eva 20 >=60 mL/min/1.73m 2 BUN Creatinine Ratio 11.4 Calcium 8.6 8.5-10.1 mg/dL Performing Lab: see note - [facility] LB PROF CHEM 8 (organgir.am METB) Reviewed date:03/06/2025 12:19:06 PM Interpretation: Performing Lab: Notes/Report: [facility] , Sodium 137 136-145 mmol/L Potassium 5.6 [...] mg/dL Performing Lab: see note ML - [facility] LB MAGNESIUM Reviewed date:03/06/2025 12:19:06 PM Interpretation: Performing Lab: Notes/Report: Comment am blood? [facility] , Magnesium 2.1 1.8-2.4 mg/dL Performing Lab: see note - [facility] LB PROF CHEM 8 (BAS METB) Reviewed date:03/06/2025 08:45:29 AM Interpretation: Performing Lab: Notes/Report: [facility] , Sodium 138 136-145 mmol/L Potassium 5.4 [...] Performing Lab: see note ML - [facility] LB ECG 12 lead Reviewed date:03/06/2025 08:45:29 AM Interpretation: Performing Lab: Notes/Report: Source Facility: [facility]-[address] [place] [address] [place] [address] Electrocardiograph Report Signed Patient: VIDHYA GIORDANO MR#: [id number] : 1940 Acct:[id number] Age/Sex: 84 / F ADM Date: 03/05/25 Loc: ER Attending Dr: Ordering Physician: Jackelyn Bass Date of Service: 03/05/25 Procedure(s): ECG 12 lead Accession Number(s): [id number] cc: [facility] Test Date: 2025-03-05 Pat Name: VIDHYA GIORDANO Department: Room: - Gender: Female Student Services Director: : 1940 Requested By: 1854 Order Number: [id number] Reading MD: JANNA ALTAMIRANO M.D. Measurements Intervals [place] Rate: 53 P: 60 MS: 210 QRS: -4 QRSD: 118 T: 15 [...] M.D. Dictated By: JANNA ALTAMIRANO Signed By: 03/05/25 172 DD/ 48 TD/TT: Adventure Education Teacher: [place] [address] Electrocardiograph Report Signed Patient: VIDHYA GIORDANO MR#: [id number] : 1940 Acct:[id number] Age/Sex: 84 / F ADM Date: 03/05/25 Loc: ER Attending Dr: Ordering Physician: Jackelyn Bass Date of Service: 03/05/25 Procedure(s): ECG 12 lead Accession Number(s): [id number] cc: [facility] Test Date: 2025-03-05 Pat Name: VIDHYA GIORDANO Department: 05 Room: - Gender: Female Student Services Director: : 1940 Requested By: 1854 Order Number: [id number] Reading MD: JANNA ALTAMIRANO M.D. Measurements Intervals [place] Rate: 53 P: 60 MS: 210 QRS: -4 QRSD: 118 T: 15 [...] ALTAMIRANO Signed By: 03/05/251720 DD/ 48 TD/TT: [employer] Teacher: PROF CHEM 8 (BAS METB) Reviewed date:03/06/2025 08:45:29 AM Interpretation: Performing Lab: Notes/Report: [facility] , Sodium 139 136-145 mmol/L Potassium 5.2 [...] Performing Lab: see note ML - [facility] LB INSULIN Reviewed date:03/06/2025 08:45:29 AM Interpretation: Performing Lab: Notes/Report: INSULIN 19.48 1.00-23.00 uIU/mL Ref. range is for FASTING NON-DIABETIC POPULATION. PERFORMED AT [address], [place] [address] VITAMIN D 25 HYD TOT Reviewed date:03/06/2025 08:45:29 AM Interpretation: Performing Lab: Notes/Report: VITAMIN D 25 HYD TOT 35.4 30.0-100.0 ng/mL Vitamin D status 25 [place] Vitamin D Deficiency <20 ng/mL Insufficiency 20-29 ng/mL Sufficiency 30-100 ng/mL Toxicity >100 ng/mL NOTE: A pediatric reference range has not been established by the ophthalmic technologist of this kit. The [place] [employer] recommends a Vitamin D level of = or >20ng/mL in infants and children. PERFORMED AT [address], [place] [address] CBC no Diff (Hemogram) Reviewed date:07/11/2025 08:19:15 AM Interpretation: Performing Lab: Notes/Report: [facility] , White Blood Count 8.1 4.0-11.0 10 3/uL Red Blood Count 4.29 4.20-5.40 10 6/uL Hemoglobin 11.7 12.0-16.0 g/dL Hematocrit 37.2 36.0-48.0 % Mean Corpuscular Volume 86.7 81.0-99.0 fL Mean Corpuscular Hemoglobin 27.3 26.7-34.0 pg Mean Corpuscular HGB Conc 31.5 29.9-35.2 g/dL Red Cell Distribution Width 16.5 11.0-15.0 % Platelet Count 164 150-450 10 3/uL Mean Platelet Volume 11.4 9.5-13.5 fL Performing Lab: see note ML - [facility] LB PROF CHEM 8 (BAS METB) Reviewed date:07/11/2025 08:19:15 AM Interpretation: Performing Lab: Notes/Report: [facility] , Sodium 142 136-145 mmol/L Potassium 3.9 3.5-5.1 mmol/L Chloride 106 98-107 mmol/L Carbon Dioxide 28.3 21.0-32.0 mmol/L Anion Gap 11.6 Glucose 124 74-106 mg/dL Blood Urea Nitrogen 43.0 7.0-18.0 mg/dL Creatinine 1.42 0.55-1.02 mg/dL Estimated GFR ( Simona 42 >=60 mL/min/1.73m 2 Estimated GFR (Non- Eva 35 >=60 mL/min/1.73m 2 BUN Creatinine Ratio 30.3 Calcium 8.6 8.5-10.1 mg/dL Performing Lab: see note ML - [facility] LB MAGNESIUM Reviewed date:07/11/2025 08:19:15 AM Interpretation: Performing Lab: Notes/Report: [facility] , Magnesium 1.9 1.8-2.4 mg/dL Performing Lab: see note - [facility] LB Troponin I High Sensitivity Reviewed date:07/11/2025 08:19:15 AM Interpretation: Performing Lab: Notes/Report: [facility] , Troponin I High Sensitivity 94.3 4.0-51.3 pg/mL RESULTS CALLED TO CUT-OFF POINTS HAVE BEEN ESTABLISHED BASED ON THE FOURTH UNIVERSAL DEFINITION OF MYOCARDIAL INFARCTION. THE UPPER REFERENCE LIMIT (URL) OF TROPONIN, DEFINED THE 99TH PERCENTILE OF cTnI DISTRIBUTION IN A REFERENCE POPULATION, HAS BEEN CONFIRMED THE DECISION THRESHOLD FOR [place] DIAGNOSIS. 99TH PERCENTILE = 51.4 PG/ML NOTE: HIGH-SENSITIVITY TROPONIN ASSAY IS NOT INTENDED TO BE USED IN ISOLATION BUT SHOULD BE INTERPRETED IN CONJUNCTION WITH OTHER DIAGNOSTIC AND CLINICAL INFORMATION. Performing Lab: see note ML - [facility] Reason For Referral Reason home health, pt and ot Diagnosis 1 Generalized weakness (R53.1) Referral Organization [facility] Referring Provider First Name Atiya Referring Provider Last Name Carola Referring Provider [facility] Referred Provider [facility] [facility] Referred Provider Specialty Home Health Agency Referral Priority Routine Reason needs home health ai de and nursing for labs Diagnosis 1 Generalized weakness (R53.1) Diagnosis 2 Chronic kidney disea se, stage 4 (severe) (N18.4) Diagnosis 3 Peripheral vascular disease, unspecified (I73.9) Referral Organization [facility] Referring Provider First Name Atiya Referring Provider Last Name Carola Referring Provider [facility] Referred Provider [employer] [facility] Referred Provider Specialty [facility] Referral Priority Routine Medications Medication SIG [...] w/Device as directed daily fasting Active Nyamyc 289250 UNIT/GM APPLY TO THE ABDOMINAL FOLDS TWICE [...] Inhalation every 4 hrs Active Polymyxin B-Trimethoprim 11803-3.1 UNIT/ML 1 drop into affected eye Ophthalmic Four times a day for 5 days 01/08/2025 Active Immunizations Vaccine Route Administration Date Status Comme nts Flu, Fluad (8262-3734) (21291) 65 yrs+, single-dose syringe IM Intramuscular 09/29/2023 Administered Social History AUDIT-C (Standard) Question Answer Notes Did you have a drink containing alcohol in the p ast year? 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) Active confirmed Problem 883166875 Chronic kidney disease, stage 4 (severe) (N18.4) Active confirmed Problem Gastroesophageal reflux disease (671294269) GERD (gastroesophag eal reflux disease) (K21.9) Active confirmed Problem Arthritis (9764054) Arthritis (M19.90) Active confirmed Problem Chronic kidney disease (953103475) CKD (chronic kidney disease) (N18.9) Active confirmed Problem Gout (73460519) Gout (M10.9) Active confirmed Problem Iron deficiency anemia (33245875) Iron deficiency anemia (D50.9) Active confirmed Problem Alzheimer disease (20771867) Alzheimer disease (G30.9) Active confirmed Problem Paresthesia of arm (65698700) Paresthesia of arm (R20.2) Active confirmed Vital Signs Heart Rate 60 /min 04/16/2025 Temperature 97.2 degrees Fahrenheit 11/30/2024 Oximetry 97 % 11/30/2024 Blood pressure diastolic 70 mm Hg 04/16/2025 Height 60 in 04/16/2025 Blood pressure systolic 130 mm Hg 04/16/2025 Encounters Encounter Location Date Provider Diagnosis [facility] [address] [place] [address] 11/30/2024 Atiya Keller COVID-19 U07.1 and Arthritis M19.90 [facility] [address] [place] [address] 04/16/2025 Atiya Keller Hyperkalemia E87.5 a nd Paresthesia of arm R20.2 [facility] [address] [place] [address] 07/17/2024 Atiya Keller [facility] [address] [place] [address] 08/18/2024 Atiya Keller [facility] [address] [place] [address] 08/28/2024 Atiya Keller [facility] [address] [place] [address] 09/26/2024 Atiya Keller [facility] [address] [facility] [place] [address] 12/06/2024 Atiya Keller [facility] [address] [place] [address] 12/07/2024 Atiya Keller [facility] [address] [place] [address] 12/08/2024 Atiya Keller [facility] [address] [place] [address] 01/02/2025 Atiya Keller Generalized weakness R53.1 [facility] [address] [place] [address] 01/02/2025 Atiya Keller [facility] [address] [place] [address] 01/08/2025 Atiya Keller [facility] [address] [place] [address] 01/16/2025 Atiya Keller [facility] [address] [place] [address] 01/31/2025 Atiya Keller [facility] [address] [place] [address] 02/19/2025 Atiya Keller HTN (hypertension) I 10 [facility] [address] [place] [address] 02/22/2025 Atiya Keller [facility] [address] [place] [address] 03/01/2025 Atiya Keller Generalized weakness R53.1 and Type 2 diabetes mellitus with diabetic chronic kidney disease E11.22 [facility] [address] [place] [address] 03/05/2025 Atiya Keller [facility] [address] [place] [address] 03/05/2025 Atiya Keller [facility] [address] [place] [address] 03/13/2025 [facility] [address] [place] [address] 03/29/2025 Atiya Keller [facility] [address] [place] [address] 03/30/2025 David Adkins Hyperkalemia E87.5 [facility] [address] [place] [address] 04/06/2025 Atiya Keller [facility] [address] [place] [address] 04/10/2025 Atiya Keller [facility] [address] [place] [address] 04/11/2025 Atiya Keller [facility] [address] [place] [address] 04/17/2025 Atiya Keller [facility] [address] [facility] [place] [address] 04/20/2025 Atiya Keller [facility] [address] [place] [address] 04/23/2025 David Adkins Compression fracture of C1 vertebra S12.090A [facility] [address] [facility] [place] [address] 04/27/2025 Atiya Keller [facility] [address] [facility] [place] [address] 05/01/2025 Atiya Keller [facility] [address] [place] [address] 05/02/2025 Atiya Keller [facility] [address] [place] [address] 05/03/2025 Atiya Keller Urinary tract infection, site not specified N39.0 [facility] [address] [place] [address] 05/04/2025 Atiya Keller [facility] [address] [facility] [place] [address] 05/15/2025 David Tomaszy [facility] [address] [place] [facility] [place] [place] [address] 05/24/2025 Atiya Keller [facility] [address] [place] [facility] [place] [address] 05/28/2025 Atiya Keller UTI (urinary tract infection) N39.0 [facility] [address] [place] [facility] [place] [address] 06/15/2025 Atiya Keller [facility] [address] [place] [facility] [place] [place] [address] 06/18/2025 Atiyaalyse Keller [facility] [address] [place] [facility] [place] [place] [address] 06/26/2025 David Adkins Assessments Encounter Date Diagnosis (ICD Code) Assessment [...] 09/29/2023 BMP - Basic Metabolic Panel 03/30/2025 CULTURE URINE 05/03/2025 UA RANDOM W or MICROSCOPIC 03/08/2023 THYROID PANEL (T4/TSH/FREE T3) THYROID PANEL (T4/TSH/FREE T3) 3 Blood Culture 1 07/09/2025 Blood Culture 2 07/08/2025 ECG 12 lead 07/08/2025 ECG 12 lead 07/10/2025 XR cervical spine 2-3V 04/16/2025 CMP (COMP MET [place]) w/eGFR CKD-EPI 2024 CBC WITH DIFF 02/19/2025 Future Test Test Name Order Date BMP (BASIC MET PANEL - W/GFR) 03/19/2016 Insurance Providers Payer Name Payer Address Payer Phone Subscriber Number Group Number Insured Name Patient Relationship to Insured Coverage Start Date Coverage End Date [employer] MED[employer]ARE [address] [place], [place] [id number] [facility] Self - patient is the insured Medical [...]
--- OUTSIDE RECORDS SUMMARY | 2025-07-12 00:44 | XMS_ITS | Encounter Summary ---
Author Organization [facility] tem Address [id number] [place] [address] Care Team Providers Care Harpsichord Maker Name Role Phone Provider, Conversion Primary Care Provider Un available Encounter Details Date Type Department Care Team (Late st Contact Info) Description 04/11/2025 Lab Requisition [facility] - Lab [address] [place] [id number] Greg Adkins MD [address] [place] [address] Hyperkalemia; Type 2 diabetes mellitus with diabetic chronic kidney disease ([facility]) Social History Tobacco Use Types Packs/Day Years [...] diabetes mellitus with diabetic chronic kidney disease ([facility]) documented in this encounter Results * (ABNORMAL) Basic Metabolic Panel (04/11/2025 3:19 PM EDT) SODIUM 135 134 - 146 mmol/L 04/11/2025 4:02 PM EDT [facility] POTASSIUM 4.9 3.5 - 5.0 mmol/L 04/11/2025 4:02 PM EDT [facility] CHLORIDE 102 98 - 109 mmol/L 04/11/2025 4:02 PM EDT [facility] CARBON DIOXIDE 21(L) 22 - 32 mmol/L 04/11/2025 4:02 PM EDT [facility] ANION GAP 12 5 - 15 mmol/L 04/11/2025 4:02 PM EDT [facility] BLOOD UREA NITROGEN 29(H) 5 - 27 mg/dL 04/11/2025 4:02 PM EDT [facility] CREATININE 2.29(H) 0.40 - 1.00 mg/dL 04/11/2025 4:02 PM EDT [facility] Comment:METHOD TRACEABLE TO IDMS STANDARD GLUCOSE 188(H) 65 - 99 mg/dL 04/11/2025 4:02 PM EDT [facility] CALCIUM 9.4 8.5 - 10.5 mg/dL 04/11/2025 4:02 PM EDT [facility] EGFR Non-Race Dependent 20(L) >=60 ml/min/1.7 3sq.m 04/11/2025 4:02 PM EDT [facility] Comment: eGFR not reported due to non-numeric value for Creatinine. Reported eGFR is based on the CKD-EPI 2020 equation that does not use a race coefficient. Blood Venous blood / Unknown 04/11/2025 3:19 PM EDT 04/11/2025 3:47 PM EDT us Greg Adkins MD LAB BLOOD ORDERABLES Final Resu lt [facility] [address] [facility] [place] [address], documented in this encounter Visit Diagnoses Diagnosis Hyperkalemia Hyperpotassemia Type 2 diabetes mellitus with diabetic chronic kidney disease ([facility]-HCC) documented in this encounter Care Teams Harpsichord Maker Relationship Specialty Start Date End Date Provider, Colt, PCP - General 01/05/13 documented as of this encounter
--- OUTSIDE RECORDS SUMMARY | 2025-07-12 00:44 | XMS_ITS | Clinical Summary ---
Author Organization [employer] Formerly [facility] tem Address [id number] [address] [place] [address] Care Team Providers Care Stock Checkerer Name Role Phone Provider, Conversion Primary Care Provider Un available Encounters Date Type Department Care Team Description 07/09/2025 Orders Only [facility] [address] [place] [phone] Transcribe, Orders Support User Pain (Primary Dx) 07/08/2025 1:55 PM EDT Ancillary Procedure [facility] [address] [place] [address] Pain 07/08/2025 12:39 PM EDT - 07/11/2025 12:45 PM EDT Emergency [facility] [address] [place] [phone] Discharge Disposition: Telemedicine Discharge 07/08/2025 11:40 AM EDT Ancillary Procedure [facility] [address] [place] [address] Pain 07/08/2025 11:35 AM EDT Ancillary Procedure [facility] [address] [place] [address] Pain 06/14/2025 Lab Requisition [facility] - Lab [address] [place] [phone] Atiya Srivastava S, DIRECTOR EXPERIMENTAL MEDICINE-[employer] Unspecified symptoms and signs involving the genitourinary system; Unspecified abnormal findings in urine; Type 2 diabetes mellitus with diabetic chronic kidney disease ([facility]) 05/23/2025 Lab Requisition [facility] - Lab [address] [place] [phone] Atiya Srivastava APRN-CNP Type 2 diabetes mellitus with diabetic chronic kidney disease ([facility]); Urinary tract infection, site not specified 05/01/2025 Lab Requisition [facility] - Lab [address] [place] [phone] Atiya Srivastava APRN-CNP Unspecified symptoms and signs involving the genitourinary system; Unspecified abnormal findings in urine 04/11/2025 Lab Requisition [facility] - Lab [address] [place] [phone] Greg Adkins MD Hyperkalemia; Type 2 diabetes mellitus with diabetic chronic kidney disease ([facility]) from Last 3 Months Social History Tobacco [...] and Td Vaccines (1 - Tdap) 1958 Fall Risk Screening 2004 COVID-19 Vaccine (2024-2 6 season) 2025 08/10/2021, 12/28/2020, 12/05/2020 Influenza Vaccine 07/09/2025 08/04/2022, , 07/29/2020, Additional history exists Zoster (Shingles) Vaccine Completed 06/04/2020, Medical Devices Not on file Procedures Procedure Name Priority Date/Time Associated Diagnosis Comments XR CHEST 1 VW Routine 07/08/2025 1:[address] CERVICAL SPINE WO CONT Routine 07/08/2025 11:[address] BRAIN WO CONT STROKE ALERT STAT Reading 07/08/2025 11:35 AM EDT Pain URINALYSIS Routine 06/14/2025 3:50 PM EDT Unspecified symptoms and signs involving the genitourinary system Unspecified abnormal findings in urine Type 2 diabetes mellitus with diabetic chronic kidney disease ([facility]) URINE CULTURE Routine 06/14/2025 3:50 PM EDT Unspecified symptoms and signs involving the genitourinary system Unspecified abnormal findings in urine Type 2 diabetes mellitus with diabetic chronic kidney disease ([facility]) URINALYSIS Routine 05/23/2025 12:51 PM EDT Type 2 diabetes mellitus with diabetic chronic kidney disease ([facility]) Urinary tract infection, site not specified URINE CULTURE Routine 05/23/2025 12:51 PM EDT Type 2 diabetes mellitus with diabetic chronic kidney disease ([facility]) Urinary tract infection, site not specified URINALYSIS [...] disease ([facility]) from Last 3 Months Results * X-ray chest 1 view (07/08/2025 1:55 PM EDT) us Scanning Provider External IMG DIAGNOSTIC IMAGIN G ORDERABLES Final Result * CT cervical spine without contrast (07/08/2025 11:40 AM EDT) us Scanning Provider External IMG CT ORDERABLES Fin al Result * CT brain without contrast stroke alert (07/08/2025 11:35 AM EDT) us Scanning Provider External IMG CT ORDERABLES Fin al Result * (ABNORMAL) Urinalysis (06/14/2025 3:50 PM EDT) Only the most recent of3 resultswithin the time period is included. COLOR Yellow Yellow 06/14/2025 4:34 PM EDT [facility] TURBIDITY Cloudy(A) Clear 06/14/2025 4:34 PM EDT [facility] SPECIFIC GRAVITY 1.025 1.003 - 1.035 06/14/2025 4:34 PM EDT [facility] NITRITE Positive(A) Negative 06/14/2025 4:34 PM EDT [facility] PH,URINE 6.0 5.0 - 8.5 06/14/2025 4:34 PM EDT [facility] LEUKOCYTE ESTERASE Moderate(A) Negative 06/14/2025 4:34 PM EDT [facility] PROTEIN Trace(A) Negative 06/14/2025 4:34 PM EDT [facility] KETONES (URINE) Negative Negative 4:34 PM EDT [facility] UROBILINOGEN 0.2 eu/dL 0.2 eu/dL, 1.0 eu/dL 06/14/2025 4:34 PM EDT [facility] BILIRUBIN (URINE) Negative Negative 06/14/2025 4:34 PM EDT [facility] BLOOD/HGB Trace(A) Negative 06/14/2025 4:34 PM EDT [facility] R.B.CELLS 3 0 - 5 06/14/2025 4:34 PM EDT [facility] SQUAMOUS EPITHELIUM 2 0 - 5 06/14/2025 4:34 PM EDT [facility] W.B.CELLS >100(H) 0 - 5 06/14/2025 4:34 PM EDT [facility] GLUCOSE (URINE) Negative Negative, 250 mg/dL 06/14/2025 4:34 PM EDT [facility] Urine Urine / Unknown 06/14/2025 3 :50 PM EDT 06/14/2025 4:14 PM EDT Narrative [facility] - 06/14/2025 4:34 PM EDT Urine received without preservative. Delays in transport may affect results. Interpret with caution. A clinical correlation is recommended. us Atiya Srivastava DIRECTOR EXPERIMENTAL MEDICINE-[employer] URINE ORDERABLES Final Result [facility] [address] [facility] [place] [address], * (ABNORMAL) Urine Culture (06/14/2025 3:50 PM EDT) Only the most recent of3 resultswithin the time period is included. CULTURE RESULTS >100,000 CFU/mL Escherichia coli(A) 06/17/2025 8:[address] [facility] Urine Urine / Unknown 06/14/2025 3 :50 PM EDT 06/14/2025 4:14 PM EDT [facility] - 06/17/2025 8:48 AM EDT [...] + Sulfamethoxazole <=1.0: Susceptible us Atiya Srivastava DIRECTOR EXPERIMENTAL MEDICINE-[employer] MICROBIOLOGY - GENERAL ORDERABLES Final Result [facility] [address] [place] [address], [place] [phone] * (ABNORMAL) Basic Metabolic Panel (04/11/2025 3:19 PM EDT) SODIUM 135 134 - 146 mmol/L 04/11/2025 4:02 PM EDT [facility] POTASSIUM 4.9 3.5 - 5.0 mmol/L 04/11/2025 4:02 PM EDT [facility] CHLORIDE 102 98 - 109 mmol/L 04/11/2025 4:02 PM EDT [facility] CARBON DIOXIDE 21(L) 22 - 32 mmol/L 04/11/2025 4:02 PM EDT [facility] ANION GAP 12 5 - 15 mmol/L 04/11/2025 4:02 PM EDT [facility] BLOOD UREA NITROGEN 29(H) 5 - 27 mg/dL 04/11/2025 4:02 PM EDT [facility] CREATININE 2.29(H) 0.40 - 1.00 mg/dL 04/11/2025 4:02 PM EDT [facility] Comment:METHOD TRACEABLE TO IDMS STANDARD GLUCOSE 188(H) 65 - 99 mg/dL 04/11/2025 4:02 PM EDT [facility] CALCIUM 9.4 8.5 - 10.5 mg/dL 04/11/2025 4:02 PM EDT [facility] EGFR Non-Race Dependent 20(L) >=60 ml/min/1.7 3sq.m 04/11/2025 4:02 PM EDT [facility] Comment: eGFR not reported due to non-numeric value for Creatinine. Reported eGFR is based on the CKD-EPI 2020 equation that does not use a race coefficient. Blood Venous blood / Unknown 04/11/2025 3:19 PM EDT 04/11/2025 3:47 PM EDT us Greg Adkins MD LAB BLOOD ORDERABLES Final Resu lt [facility] [address] [place] [address], from Last 3 Months Insurance [employer] MEDICARE Care Teams Stock Checkerer Relationship Specialty Start Date End Date ProviderColt MD PCP - General 01/05/13
--- OUTSIDE RECORDS SUMMARY | 2025-07-12 00:44 | XMS_ITS | Encounter Summary ---
Author Organization [facility] [employer] [facility] tem Address [id number] [address] [place] [address] Care Team Providers Care Windows Mobile Developer Name Role Phone Provider, Conversion MD Primary Care Provider Un available Encounter Details Date Type Department Care Team (Latest Contact Info) Description 05/01/2025 Lab Requisition [facility] - Lab [address] [place] [phone] Atiya Srivastava, OPTICAL ELEMENT COATER-CORSETIER [address] [place] [phone] Unspecified symptoms and signs involving the genitourinary [...] CFU/mL Escherichia coli(A) 05/03/2025 10:33 AM EDT [facility] Urine Urine specimen collection, clean catch / Unknown 05/01/2025 4:00 PM EDT 05/01/2025 5:23 PM EDT Narrative [facility] - 05/03/2025 10:33 AM EDT Urine [...] Trimethoprim + Sulfamethoxazole <=1.0: Susceptible Atiya Srivastava OPTICAL ELEMENT COATER-CORSETIER MICROBIOLOGY - GENERAL ORDERABLES Final Result [facility] [address] [place] [address], * (ABNORMAL) Urinalysis (05/01/2025 4:00 PM EDT) COLOR Yellow Yellow, Colorless 05/01/2025 6:15 PM EDT [facility] TURBIDITY Clear Clear 05/01/2025 6:15 PM EDT [facility] SPECIFIC GRAVITY <=1.005 1.003 - 1.035 05/01 6:15 PM EDT [facility] NITRITE Negative Negative 05/01/2025 6:15 PM EDT [facility] PH,URINE 6.0 5.0 - 8.5 05/01/2025 6:15 PM EDT [facility] LEUKOCYTE ESTERASE Trace(A) Negative 05/01/2025 6:15 PM EDT [facility] PROTEIN Negative Negative 05/01/2025 6:15 PM EDT [facility] KETONES (URINE) Negative Negative 6:15 PM EDT [facility] UROBILINOGEN 0.2 eu/dL 0.2 eu/dL, 1.0 eu/dL 05/01/2025 6:15 PM EDT [facility] BILIRUBIN (URINE) Negative Negative 05/01/2025 6:15 PM EDT [facility] BLOOD/HGB Negative Negative 05/01/2025 6:15 PM EDT [facility] SQUAMOUS EPITHELIUM 1 0 - 5 05/01/2025 6:15 PM EDT [facility] W.B.CELLS 20(H) 0 - 5 05/01/2025 6:15 PM EDT [facility] GLUCOSE (URINE) Negative Negative, 250 mg/dL 05/01/2025 6:15 PM EDT [facility] Urine Urine specimen collection, clean catch / Unknown 05/01/2025 4:00 PM EDT 05/01/2025 5:23 PM EDT Narrative [facility] - 05/01/2025 6:15 PM EDT Urine received without preservative. Delays in transport may affect results. Interpret with caution. A clinical correlation is recommended. us Atiya Srivastava OPTICAL ELEMENT COATER-CORSETIER URINE ORDERABLES Final Result [facility] [address] [place] [address], documented in this encounter Visit Diagnoses Diagnosis Unspecified symptoms and signs involving the genitourinary system Unspecified abnormal findings in urine documented in this encounter Care Teams Windows Mobile Developer Relationship Specialty Start Date End Date Provider, Colt, PCP - General 01/05/13 documented as of this encounter
--- OUTSIDE RECORDS SUMMARY | 2025-07-12 00:44 | XMS_ITS | Encounter Summary ---
Author Organization [facility] [employer] [facility] tem Address [id number] [address] [place] [address] Care Team Providers Care Equal Opportunity Specialist Name Role Phone Provider, Conversion MD Primary Care Provider Un available Encounter Details Date Type Department Care Team (Latest Contact Info) Description 06/14/2025 Lab Requisition [facility] - Lab [address] [place] [address] Atiya Srivastava, TILT TRAY DRIVER-EARTH SCIENCE TEACHER [address] [place] [address] Unspecified symptoms and signs involving the genitourinary system; Unspecified abnormal findings in urine; Type 2 diabetes mellitus with diabetic chronic kidney disease ([facility] [place]) Social History Tobacco Use Types Packs/Day Years [...] diabetes mellitus with diabetic chronic kidney disease ([facility]) URINE CULTURE Routine 06/14/2025 3:50 PM EDT Unspecified symptoms and signs involving the genitourinary system Unspecified abnormal findings in urine Type 2 diabetes mellitus with diabetic chronic kidney disease ([facility]) documented in this encounter Results * (ABNORMAL) Urine Culture (06/14/2025 3:50 PM EDT) CULTURE RESULTS >100,000 CFU/mL Escherichia coli(A) 06/17/2025 8:48 AM EDT [facility] Urine Urine / Unknown 06/14/2025 3 :50 PM EDT 06/14/2025 4:14 PM EDT Narrative [facility] - 06/17/2025 8:48 AM [...] + Sulfamethoxazole <=1.0: Susceptible us Atiya Srivastava TILT TRAY DRIVER-EARTH SCIENCE TEACHER MICROBIOLOGY - GENERAL ORDERABLES Final Result [facility] [address] [place] [address], * (ABNORMAL) Urinalysis (06/14/2025 3:50 PM EDT) COLOR Yellow Yellow 06/14/2025 4:34 PM EDT [facility] TURBIDITY Cloudy(A) Clear 06/14/2025 4:34 PM EDT [facility] SPECIFIC GRAVITY 1.025 1.003 - 1.035 06/14/2025 4:34 PM EDT [facility] NITRITE Positive(A) Negative 06/14/2025 4:34 PM EDT [facility] PH,URINE 6.0 5.0 - 8.5 06/14/2025 4:34 PM EDT [facility] LEUKOCYTE ESTERASE Moderate(A) Negative 06/14/2025 4:34 PM EDT [facility] PROTEIN Trace(A) Negative 06/14/2025 4:34 PM EDT [facility] KETONES (URINE) Negative Negative 4:34 PM EDT [facility] UROBILINOGEN 0.2 eu/dL 0.2 eu/dL, 1.0 eu/dL 06/14/2025 4:34 PM EDT [facility] BILIRUBIN (URINE) Negative Negative 06/14/2025 4:34 PM EDT [facility] BLOOD/HGB Trace(A) Negative 06/14/2025 4:34 PM EDT [facility] R.B.CELLS 3 0 - 5 06/14/2025 4:34 PM EDT [facility] SQUAMOUS EPITHELIUM 2 0 - 5 06/14/2025 4:34 PM EDT [facility] W.B.CELLS >100(H) 0 - 5 06/14/2025 4:34 PM EDT [facility] GLUCOSE (URINE) Negative Negative, 250 mg/dL 06/14/2025 4:34 PM EDT [facility] Urine Urine / Unknown 06/14/2025 3 :50 PM EDT 06/14/2025 4:14 PM EDT Narrative [facility] - 06/14/2025 4:34 PM EDT Urine received without preservative. Delays in transport may affect results. Interpret with caution. A clinical correlation is recommended. us Atiya Srivastava TILT TRAY DRIVER-EARTH SCIENCE TEACHER URINE ORDERABLES Final Result [facility] [address] [place] [address], documented in this encounter Visit Diagnoses Diagnosis Unspecified symptoms and signs involving the genitourinary system Unspecified abnormal findings in urine Type 2 diabetes mellitus with diabetic chronic kidney disease (CMS-HCC) documented in this encounter Care Teams Equal Opportunity Specialist Relationship Specialty Start Date End Date Provider, MD Colt PCP - General 01/05/13 documented as of this encounter
--- OUTSIDE RECORDS SUMMARY | 2025-07-12 00:44 | XMS_ITS | Encounter Summary ---
Author Organization [facility] [employer] [facility] tem Address [id number] [address] [place] [address] Care Team Providers Care Orchid Hand Name Role Phone Provider, Conversion MD Primary Care Provider Un available Encounter Details Date Type Department Care Team (Late st Contact Info) Description 05/23/2025 Lab Requisition [facility] - Lab [address] [place] [phone] Atiya Srivastava, ROCK CRUSHER OPERATOR-DIRECTOR VIDEO [address] [place] [phone] Type 2 diabetes mellitus with diabetic chronic kidney disease ([facility]); Urinary tract infection, site not specified Social [...] diabetes mellitus with diabetic chronic kidney disease [facility] Urinary tract infection, site not specified URINE CULTURE Routine 05/23/2025 12:51 PM EDT Type 2 diabetes mellitus with diabetic chronic kidney disease (CMS-HCC) Urinary tract infection, site not specified documented in this encounter Results * (ABNORMAL) Urine culture (05/23/2025 12:51 PM EDT) CULTURE RESULTS >100,000 CFU/mL Escherichia coli(A) 05/25/2025 11:50 AM EDT [facility] Urine Urine / Unknown 05/23/2025 1 [...] Trimethoprim + Sulfamethoxazole <=1.0: Susceptible Atiya Srivastava ROCK CRUSHER OPERATOR-DIRECTOR VIDEO MICROBIOLOGY - GENERAL ORDERABLES Final Result [facility] [address] [place] [address], * (ABNORMAL) Urinalysis (05/23/2025 12:51 PM EDT) COLOR Yellow Yellow, Colorless 05/23/2025 2:07 PM EDT [facility] TURBIDITY Hazy(A) Clear 05/23/2025 2:07 PM EDT [facility] SPECIFIC GRAVITY 1.020 1.003 - 1.035 05/23/2025 2:07 PM EDT [facility] NITRITE Positive(A) Negative 05/23/2025 2:07 PM EDT [facility] PH,URINE 6.0 5.0 - 8.5 05/23/2025 2:07 PM EDT [facility] LEUKOCYTE ESTERASE Moderate(A) Negative 05/23/2025 2:07 PM EDT [facility] PROTEIN Trace(A) Negative 05/23/2025 2:07 PM EDT [facility] KETONES (URINE) Negative Negative 2:07 PM EDT [facility] UROBILINOGEN 0.2 eu/dL 0.2 eu/dL, 1.0 eu/dL 05/23/2025 2:07 PM EDT [facility] BILIRUBIN (URINE) Negative Negative 05/23/2025 2:07 PM EDT [facility] BLOOD/HGB Negative Negative 05/23/2025 2:07 PM EDT [facility] R.B.CELLS 3 0 - 5 05/23/2025 2:07 PM EDT [facility] SQUAMOUS EPITHELIUM 1 0 - 5 05/23/2025 2:07 PM EDT [facility] W.B.CELLS 90(H) 0 - 5 05/23/2025 2:07 PM EDT [facility] GLUCOSE (URINE) Negative Negative, 250 mg/dL 05/23/2025 2:07 PM EDT [facility] Urine Urine / Unknown 05/23/2025 1 2:51 PM EDT 05/23/2025 1:28 PM EDT us Atiya Srivastava ROCK CRUSHER OPERATOR-DIRECTOR VIDEO URINE ORDERABLES Final Result [facility] [address] [place] [address], documented in this encounter Visit Diagnoses Diagnosis Type 2 diabetes mellitus with diabetic chronic kidney disease (CMS-HCC) Urinary tract infection, site not specified documented in this encounter Care Teams Orchid Hand Relationship Specialty Start Date End Date Provider, Colt, PCP - General 01/05/13 documented as of this encounter
[2025-07-12] MEDS: HEPARIN SODIUM (PORCINE) 5,000 UNIT/ML VIAL 5000 UNIT SUBQ ×2 (02:10→17:27)
[2025-07-12 05:48] LABS: Hematocrit 36.6 % (36.0-48.0); Hemoglobin 11.4 g/dL (12.0-16.0); Mean Corpuscular HGB Conc 31.1 g/dL (29.9-35.2); Mean Corpuscular Hemoglobin 27.1 pg (26.7-34.0); Mean Corpuscular Volume 86.9 fL (81.0-99.0); Platelet Count 172 10^3/uL (150-450); Red Blood Count 4.21 10^6/uL (4.20-5.40); White Blood Count 9.0 10^3/uL (4.0-11.0)
[2025-07-12 05:49] LABS: Anion Gap 13.8; Blood Urea Nitrogen 34.0 mg/dL (7.0-18.0); Calcium 8.7 mg/dL (8.5-10.1); Carbon Dioxide 28.8 mmol/L (21.0-32.0); Chloride 104 mmol/L (98-107); Estimated GFR (African America 51 (>=60 mL/min/1.73m^2); Estimated GFR (Non-African Ame 42 (>=60 mL/min/1.73m^2); Glucose 124 mg/dL (74-106); Magnesium 1.9 mg/dL (1.8-2.4); Potassium 4.6 mmol/L (3.5-5.1); Sodium 142 mmol/L (136-145)
[2025-07-12] MEDS: LEVOTHYROXINE SODIUM 25 MCG TABLET 50 MCG PO (06:06)
[2025-07-12 08:41] VITALS: BP 123/72; PULSE 80; TEMP 36.6; O2SAT 92
--- NOTE | 2025-07-12 08:43 | SWNOTE1 ---
On 07/11/25 at 6:00pm SW received a call from nurse, Miguelina, and pt's daughter did call the hospital and would like to speak with SW. TONEY called pt's daughter, Divya. TONEY and Divya spoke about hospice services. Divya was under the impression that hospice came in 31/05 and assisted with pt in the home. TONEY did explain to Divya that hospice will not be in the home 31/05. They would be a in a few times of the week for a certain amount of time and there is someone animation artist 31/05 in case of emergency. TONEY let Divya know that we have Hospice come here to hospital to speak with pt and family so they can discuss in more detail the services they offer and how often they would be in the home. TONEY did explain to Divya that pt can't be skilled for rehab at [facility] and have hospice services. Divya asked if she was able to get in to [facility]. TONEY advised Divya that SW did leave a message for her letting her know [facility] accepted and they started precert. Divya stated her phone has not been working right today. Divya stated she wants her to get in to [facility]. TONEY asked what the superintendent container terminal plan would be. Divya voiced she is going to try to get pt Medicaid. She stated she missed the deadline to submit paperwork so she has to call [employer], she plans on doing this on 07/12. SW did let Divya know that [facility] usually does not take Medicaid superintendent container terminal and is usually private pay. Divya voiced she is aware and that she is on the wait list for superintendent container terminal beds with Medicaid at [facility]. TONEY advised in the 7 years that SW has been here, SW has not known anyone to get in to [facility] with Medicaid. TONEY let Divya know she may also want to start thinking about other facilities that do accept Medicaid. TONEY let Divya know that if they do meet with hospice and decided to pursue hospice, hospice will want to know the plan, meaning will patient go home or to a nursing facility? TONEY again explained that if it would be nursing facility, the nursing facility will want a form of payment. Divya stated she only has $7,000. TONEY did explain that usually alf at care home is between $8-10,000. She voiced she is aware. She again spoke about getting pt's Medicaid figured out. SW again let her know that pt can't go skilled and have hospice at the same time. SW did ask her what she would like to do and did recommend that she and pt at least speak with hospice. Pt's daughter in agreement to speak with hospice, but stated she does want to keep precert going and wants pt to get to [facility]. SW asked if [facility]. Divya in agreement with [facility].
--- NOTE | 2025-07-12 08:45 | CM.NOTE ---
Rounds made with Dr. Jade, discussed plan of care with pt. Pt continues with weakness in L arm, pt having difficulty even raising the arm. PT and OT will continue to work with pt during admission for strengthening. No discharge today. Hospice will come in to evaluate pt today. TONEY spoke with Hospice and pt's daughter this AM.
[2025-07-12] MEDS: ENSURE HP 237 ML LIQUID PO ×3 (09:02→17:26)
--- NOTE | 2025-07-12 09:02 | SWNOTE1 ---
TONEY called [facility] and spoke to intake. She confirmed they did receive referral and the nurse attempted to call Divya on 07/11/25, but Divya did not answer. The Nasim nurse left a voicemail for Divya. She stated someone will follow up this morning and attempt to call Divya again. Nasim will call TONEY was they have a confirmed meeting.
[2025-07-12] MEDS: POLYETHYLENE GLYCOL 3350 17 GM POWDER PACKET PO ×2 (09:03→21:26)
[2025-07-12] MEDS: ALLOPURINOL 100 MG TABLET PO (09:04)
[2025-07-12] MEDS: ESCITALOPRAM 10 MG TABLET 20 MG PO (09:04)
[2025-07-12] MEDS: METOPROLOL SUCCINATE 25 MG TAB.ER.24H PO (09:04)
[2025-07-12] MEDS: DOCUSATE SODIUM 100 MG CAPSULE PO ×2 (09:05→21:26)
[2025-07-12] MEDS: SENNOSIDES/DOCUSATE SODIUM 1 TAB TABLET 2 TAB PO (09:05)
[2025-07-12] MEDS: PREGABALIN 50 MG CAPSULE PO ×2 (09:05→21:26)
[2025-07-12 09:06] VITALS: BP 123/72
[2025-07-12] MEDS: AMLODIPINE BESYLATE 5 MG TABLET 2.5 MG PO (09:06)
[2025-07-12] MEDS: PANTOPRAZOLE SODIUM 40 MG TABLET.DR PO (09:06)
[2025-07-12] MEDS: ASPIRIN 325 MG TABLET PO (09:06)
--- NOTE | 2025-07-12 09:39 | SWNOTE1 ---
TONEY called and spoke to Divya this morning. TONEY asked if she received a call from Hospice today? She voiced she has not. Divya then advised SW that pt can't be at a longterm and have Medicaid and Hospice. TONEY advsied that many people have Medicaid at a longterm and have hospice services. Divya then stated she needs to talk to the person at [facility] today in regards to pt's Medicaid. She stated the lady she spoke to last time was talking about passport services. TONEY did let Divya know when she speaks to her today to ask about [facility] medicaid for a longterm. Divya then stated that pt can't have hospice in the home and other services at the same time. SW did let her know that she is right, can't have home health and hospice in the home. Divya then stated with her dad, hospice came in once a week to give him a bath for 30 minutes then left. SW did let her know that is why we have hospice come speak with pt and family to let them know how they can assist in the home. Divya requested that SW find this out and let her know. TONEY advised it would be more beneficial it hospice spoke to pt and Divya that way they can ask any questions. Divya then stated she did not have time for that today. She stated she has to look through the trash for important paperwork for Medicaid and she has to call the lady at [facility]. Divya asked why this had to be done today. TONEY did explain that pt is getting close to being medically stable for discharge and want to make sure the discharge plan is all set. Divya then voiced she will likely not answer the phone if hospice calls. She stated they can come see her when she is at [facility]. TONEY did let her know that she is correct, but did remind Divya that pt can't be skilled and have hospice services coming in. If pt changes to remote computer terminal operator, it would be out of pocket. Divya voiced she does know that. TONEY did let her know some people do have hospice come in to the home and also hire private caregivers. Divya again voiced she is aware of this as well. TONEY then asked Divya what the goal was for the patient? She stated she wants to get her to [facility] skilled at this time. SW did let her know that SW is unsure of how long she will be skilled for. Divya voiced understanding and expressed to TONEY that she is going to get started on figuring out the Medicaid. SW did let her know hospice may still call her today. Divya voiced she may not answer. TONEY then received a message from Jazlyn at [facility] and nurse Tasha will be coming out to see pt and she is also calling the daughter. TONEY did message Jazlyn back that SW just spoke with daughter and she may not answer and TONEY will updated Tasha once she arrives.
--- NOTE | 2025-07-12 09:55 | PT.DAILY ---
Physical Therapy Daily Note PT Daily Note/Assess Start: 07/11/25 11:13 Freq: Status: Active Protocol: Document 07/12/25 09:20 DERRICK (Rec: 07/12/25 09:55 DERRICK [id number]) Physical Therapy Daily Note/Assessment Time In/Time Out Time In 09:20 Time Out 09:35 Subjective Subjective Patient reports neck pain 8/10 this morning, but agrees to supine exercises with B LE's. Per nursing okay to only do bed level exercises due to high pain. Therapeutic Exercise Time Therapeutic Exercise 10 Minutes (minutes) Therapeutic Exercise 1 Units Therapeutic Exercise Treatment Therapeutic Exercise Supine exercises B LE with isometrics and AAROM 5 reps Treatment each with max verbal cues to stay on task. Therapeutic Activity Time Therapeutic Activity 5 Minutes (minutes) Therapeutic Activity 0 Units Therapeutic Activity Treatment Bed Mobility Ability Maximum Assist Therapeutic Activity Patient max assist to reposition in bed with pillows Comments for pain control. Total Physical Therapy Time Total Therapy 15 Minutes Total Physical 1 Therapy Units Summary Daily Note Summary Patient reports high pain this morning, but does agree to supine exercises for strengthening. Patient zones out frequently and requires max assistance to stay on task. Patient unable to initiate exercise of heel slides but once given tactile cue is able to complete exercise actively. Patient was supine in bed, positioned to comfort with rails up and call light in reach. Nursing notified of patient's response to therapy today.
--- NOTE | 2025-07-12 10:13 | PM.PN ---
Progress Note: Subjective Subjective Interval history: Seen and valuated this morning, patient is sleeping and wakes up very easily. She says she is still feeling little below her baseline but also says she is feeling better than yesterday. She continues to be weak with her left arm. She continues to decline proceeding with surgical evaluation of her neck. Exam Narrative Exam Narrative: General: Awake and alert, no acute distress HEENT: Normocephalic, atraumatic, no scleral icterus noted, wearing her neck brace Lungs: Clear to auscultation bilaterally though diminished Cardiac: Regular rate and rhythm, no murmurs appreciated GI: Soft, nontender, regular bowel sounds. Extremities: Active and passive range of motion intact throughout though she does appear weak with her bilateral upper extremities. There appears to be a little lack of effort on her left side today. Neuro: Cranial nerves II through XII intact, no focal deficits noted Skin: No rashes or lesions, no signs of jaundice Constitutional Vital Signs, click to edit/add: Last Vital Signs Temp 98 F 07/12/25 08:41 Pulse 80 07/12/25 08:41 Resp 16 07/12/25 08:41 BP 123/72 07/12/25 09:06 Pulse Ox 92 L 07/12/25 08:41 O2 Del Method Room Air 07/12/25 08:41 Progress Note: Objective Labs Labs: Short CBC 07/12/25 Range/Units 04:47 WBC 9.0 (4.0-11.0) 10^3/uL Hgb 11.4 L (12.0-16.0) g/dL Hct 36.6 (36.0-48.0) % Plt Count 172 (150-450) 10^3/uL BMP 07/12/25 04:47 Sodium 142 Potassium 4.6 Chloride 104 Carbon Dioxide 28.8 BUN 34.0 H Creatinine 1.22 H Glucose 124 H Calcium 8.7 Progress Note: A&P Assessment and Plan (1) Elevated troponin: Assessment and Plan: ? Secondary to dehydration/CRISTINA ? Cardiology on consult, troponins trending down ? Echocardiogram reveals no wall motion abnormality ? Likely does not require further intervention or lab evaluation (2) NSTEMI (non-ST elevated myocardial infarction): (3) CRISTINA (acute kidney injury): Assessment and Plan: Secondary to dehydration, resolved. Continue with encouraging oral intake Labs have normalized for 48 hours, will defer for the lab draws. (4) Generalized weakness: (5) Metabolic encephalopathy: Assessment and Plan: Resolved (6) CKD (chronic kidney disease): Assessment and Plan: Stable Qualifiers: Chronic kidney disease stage: stage 3 (moderate) (7) Goals of care, counseling/discussion: Assessment and Plan: ? Spent roughly 20 minutes with the patient yesterday and 35 minutes on the phone with her daughter Clyde yesterday discussing her cervical issues, weakness and recommendation for hospice care. Patient continued to be adamant yesterday and today that she does not want any surgical intervention on her cervical spine. With this in mind, I recommended hospice consult yesterday for evaluation as this weakness will continue to get worse and there is no chance for a meaningful recovery. Patient was interested in hospice. Hospice consult was placed yesterday, planning to meet with patient today. Plan Disposition pending pre-CERT for SNF Only check vital signs while awake, if she is sleeping at night do not disturb her. No indication to check further labs. Urinary Catheter Management Urinary Catheter Management Urethral: Cath placed during this visit: yes Urethral indwelling: No Insertion date: 07/08/25 Insertion time: 12:37
--- NOTE | 2025-07-12 10:27 | SWNOTE1 ---
SW stopped in to pt's room. Pt was lying in bed and was awake. She immediately asked SW if she spoke to Divya? SW let her know that SW spoke to her yesterday evening and this morning. SW let pt know that hospice is coming in this morning just to assess and speak with pt. Divya had told SW that she is not able to be on the phone while hospice is here as she is trying to get Medicaid figured out. Pt is agreeable to speak with hospice. SW asked pt if she would like to call and speak with Divya? She voiced she does. SW and pt called and spoke with Divya. Pt was not able to lift her hands and hold the phone to her ear, SW assisted with this. After pt was done speaking with Divya, SW did let Divya know that hospice was coming here soon to assess pt. Divya expressed to not let pt sign anything, SW re-assured Divya that SW will make sure pt does not sign anything at this time. After pt was done talking on phone, SW asked if she was feeling better. Pt voiced she was and needed a drink of water. SW assisted with pt drinking her water. Pt could not lift water to drink, SW helped. Pt was more conversational today than yesterday.
--- NOTE | 2025-07-12 10:50 | SWNOTE1 ---
Tasha, nurse from [facility] stopped in to see pt. TONEY provided paperwork that was sent to [facility] yesterday to Tasha. TONEY took Tasha to pt's room and introduced Tasha to pt. TONEY did advise pt that Tasha will call Divya after they converse. Pt requested that she does. Tasha in agreement.
[2025-07-12 11:26] VITALS: BP 140/82; PULSE 75; TEMP 36.4; O2SAT 92
--- NOTE | 2025-07-12 11:29 | SWNOTE1 ---
SW faxed updated PT note, physician note, labs, vitals, and nursing notes to [facility].
--- NOTE | 2025-07-12 15:38 | SWNOTE1 ---
SW faxed OT note to [facility]. TONEY received a message from Lacey and precert is still pending.
--- NOTE | 2025-07-12 15:50 | SWNOTE1 ---
TONEY received a message from Lacey at [facility] and she received an email that the insurance is requesting a peer to peer to be completed. Lacey sent TONEY the email with the information. Must be completed by 12:00 on TONEY provided information to Dr. Jade.
[2025-07-12 16:00] VITALS: BP 143/84; PULSE 69; TEMP 36.7; O2SAT 92
--- NOTE | 2025-07-12 19:08 | PC.NURSE ---
Daughter approached nurse upset and asked about pt's buprenorphine patch. This RN explained that this RN discovered it this afternoon and was trying to figure it out. Daughter is very upset that staff has not placed a new patch and it was due to be changed. This RN explained that this RN is currently investigating it and trying to work with pharmacy to address the issue. Osvaldo FIGUEROA hospital supervisor gear repair called to help investigate and speak with pharmacy. Explained to daughter that staff would provide her with an update as soon as possible.
--- NOTE | 2025-07-12 19:26 | PC.NURSE ---
Daughter updated that the supervisor ski production Osvaldo FIGUEROA is handling it and working with the pharmacist and final application reviewer physician and she will speak with her. Report given to Belén FIGUEROA.
[2025-07-12 20:26] VITALS: BP 126/76; PULSE 74; TEMP 36.7; O2SAT 92
[2025-07-12] MEDS: DONEPEZIL HCL 5 MG TABLET PO (21:27)
[2025-07-12] MEDS: ATORVASTATIN CALCIUM 10 MG TABLET 80 MG PO (21:27)
[2025-07-13] MEDS: HEPARIN SODIUM (PORCINE) 5,000 UNIT/ML VIAL 5000 UNIT SUBQ ×2 (02:05→09:54)
[2025-07-13] MEDS: LEVOTHYROXINE SODIUM 25 MCG TABLET 50 MCG PO (06:06)
--- NOTE | 2025-07-13 08:40 | CM.NOTE ---
Rounds made with Dr. Jade, discussed plan of care with pt. Dr. Jade will call insurance for appeal for pt to go skilled at discharge. Pt plan is to discharge to [place]. SW spoke with daughter for update and discharge planning.
[2025-07-13] MEDS: ENSURE HP 237 ML LIQUID PO ×2 (08:57→12:43)
[2025-07-13] MEDS: POLYETHYLENE GLYCOL 3350 17 GM POWDER PACKET PO (08:57)
[2025-07-13] MEDS: PREGABALIN 50 MG CAPSULE PO (08:58)
[2025-07-13] MEDS: METOPROLOL SUCCINATE 25 MG TAB.ER.24H PO (08:58)
[2025-07-13] MEDS: ESCITALOPRAM 10 MG TABLET 20 MG PO (08:58)
[2025-07-13] MEDS: AMLODIPINE BESYLATE 5 MG TABLET 2.5 MG PO (08:58)
[2025-07-13] MEDS: DOCUSATE SODIUM 100 MG CAPSULE PO (08:58)
[2025-07-13] MEDS: PANTOPRAZOLE SODIUM 40 MG TABLET.DR PO (08:58)
[2025-07-13] MEDS: ALLOPURINOL 100 MG TABLET PO (08:58)
[2025-07-13] MEDS: ASPIRIN 325 MG TABLET PO (08:59)
[2025-07-13 09:00] VITALS: BP 132/80; PULSE 79; TEMP 36.6; O2SAT 90
--- NOTE | 2025-07-13 09:06 | SWNOTE1 ---
TONEY called Jazlyn at [facility] and requested the nurse, Tasha, come back and re-eval patient and see if she qualifies for the Inpt. Unit. SW waiting to hear back.
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
--- NOTE | 2025-07-13 10:27 | SWNOTE1 ---
TONEY did reach out to Jazlyn at [facility] and let her know that SW spoke to Divya this morning. Divya has expressed she does not want pt to go to [place] to the inpt unit if she qualifies. Divya is not able to drive and does not have a car, so she would not be able to go see pt in [place]. TONEY will follow up with [facility] once peer to peer is determined.
--- NOTE | 2025-07-13 11:07 | P.PN_ITS ---
Progress Note: Subjective Subjective Interval history: Seen and evaluated this morning, she is much more awake and alert than she was yesterday and especially the day before that. I did have a long talk with her this morning about continuation of care and how she would benefit greatly from a nursing facility for more rehab. Yesterday the patient's participation was a little bit lacking however after seeing her today I did discuss this with her and she says she is feeling a lot better today and is more than willing to participate with therapy and also get up to the chair if she is able to. She is still declining surgical intervention. It should be noted that she suffered a fall at a [facility] roughly 1 month or so ago, with her weakness in her left hand, this is well below her baseline. It is very likely that she suffered minor injury on top of her chronic problem from the fall in regards to a likely bruise to her spinal cord given that she has such severe stenosis. Exam Narrative Exam Narrative: General: Awake and alert, no acute distress, has more energy today. Much more talkative HEENT: Normocephalic, atraumatic, no scleral icterus noted, wearing her neck brace Lungs: Clear to auscultation bilaterally though diminished Cardiac: Regular rate and rhythm, no murmurs appreciated GI: Soft, nontender, regular bowel sounds. Extremities: Active and passive range of motion intact throughout though she does appear weak with her bilateral upper extremities however she is moving her left side more today than she was previously. She remains weak, encouraged physical and Occupational Therapy today. Neuro: Cranial nerves II through XII intact, no focal deficits noted Skin: No rashes or lesions, no signs of jaundice Constitutional Vital Signs, click to edit/add: Last Vital Signs Temp 97.9 F 07/13/25 09:00 Pulse 79 07/13/25 09:00 Resp 16 07/13/25 09:00 BP 132/80 07/13/25 09:00 Pulse Ox 90 L 07/13/25 09:00 O2 Del Method Room Air 07/13/25 09:00 Progress Note: A&P Assessment and Plan (1) Elevated troponin: Assessment and Plan: ? Secondary to dehydration/CRISTINA ? Cardiology on consult, troponins trending down ? Echocardiogram reveals no wall motion abnormality ? Likely does not require further intervention or lab evaluation (2) NSTEMI (non-ST elevated myocardial infarction): Assessment and Plan: see above (3) CRISTINA (acute kidney injury): Assessment and Plan: Secondary to dehydration (4) Generalized weakness: Assessment and Plan: Encouraged PT OT, she did participate more therapy today. Definite improvement from yesterday (5) Metabolic encephalopathy: Assessment and Plan: Resolved (6) CKD (chronic kidney disease): Assessment and Plan: Stable Qualifiers: Chronic kidney disease stage: stage 3 (moderate) (7) Goals of care, counseling/discussion: Assessment and Plan: Hospice evaluation was had, patient is agreeable to [facility] hospice. Disposition pending. (8) Ambulatory dysfunction: Assessment and Plan: ? 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 She has since refused further surgical intervention. The patient is well-known to this facility and on presentation this admission she was well below her baseline in regards to her functional ability to move her upper extremities and even transition from bed to the chair. Onto speaking with the daughter, there was a fall at the last [facility] which is why her and the daughter are pursuing a different nursing facility. Her participation with therapy has been improving throughout her admission and today she participated quite well with therapy and is showing improvements with her strength. Most notably in her left upper arm though she is still well below her baseline. ? The evening of July 12 I was notified that insurance is denying her alf facility request, there is a peer to peer that was scheduled for today, July 13 with a deadline of noon. As of the time of writing this note at approximately 11:15 AM on July 13, 2025 I have been on hold for more than 45 minutes waiting for this peer to peer. ?It is the opinion of myself, the attending physician, our physical therapist and occupational therapist, and nursing staff who knows the patient quite well, we have all done our own physical evaluations and all agree that she would benefit greatly from a alf facility. Unfortunately, insurance has denied her alf request as of now, they have not evaluated the patient. If there is no transition to alf facility for posthospitalization care, the patient will likely end up at home under the care of her daughter who is not trained to care for a patient with this level of severe and complex medical issues. She is at extremely high risk to fall and suffer further injuries which could greatly increase her morbidity and mortality especially if it becomes a another spinal cord injury or even a brain bleed. Again, as daughter is not trained, if she does not attempt to get the patient out of bed then insurance company is essentially committing Miss Giordano to be bedbound for the rest of her life which will significantly decrease her lifespan. If any of this does happen, it will be the responsibility of the insurance company for inappropriately denying her alf facility stay for further rehabilitation. Urinary Catheter Management Urinary Catheter Management Urethral: Cath placed during this visit: yes Urethral indwelling: No Insertion date: 07/08/25 Insertion time: 12:37
--- NOTE | 2025-07-13 11:45 | SWNOTE1 ---
Physician was able to schedule peer to peer and it they will reach out to him before 4:00pm today. SW let nurse know.
[2025-07-13 12:45] VITALS: BP 121/74; PULSE 82; TEMP 36.7; O2SAT 91
--- NOTE | 2025-07-13 14:21 | SWNOTE1 ---
TONEY received a message from Dr. Jade and he did get the peer to peer approved. TONEY called and left a message for Lacey at [facility]. TONEY also sent Kristy and Lacey an email letting them know.
[2025-07-13] MEDS: [UNRECOGNIZED DRUG - REMARK] 1 EACH TP (14:48)
--- NOTE | 2025-07-13 14:55 | SWNOTE1 ---
Kristy at [facility] emailed TONEY back and stated they are reacing out to there precert team. She voiced we can set up transport for later today. TONEY messaged Dr. Jade and pt will be discharged. SW to set up transport. TONEY called [facility] and set up transport for 5:00. TONEY notified nurse, Kristy and Lacey at [facility], and TONEY called pt's daughter Divya and informed her. Divya voiced appreciation. TONEY to send orders once completed. TONEY completed [facility] paperwork and attached to pt's packet. TONEY completed HENS 700 online.
--- NOTE | 2025-07-13 15:01 | SWNOTE1 ---
SW did message Jazlyn at [facility] and updated her of pt's discharge to [facility] skilled today.
--- NOTE | 2025-07-13 15:01 | SWNOTE1 ---
Jazlyn at [facility] did message SW back and she will inform her team.
--- NOTE | 2025-07-13 15:37 | SWNOTE1 ---
SW faxed over dc med rec to [facility]. SW took packet to the floor. Pt is going to [facility] skilled.
--- NOTE | 2025-07-13 16:57 | PC.NURSE ---
report given to Dinora at [facility]. All questions answered
--- NOTE | 2025-07-31 21:37 | P.DS_ITS ---
DS: Providers Provider Date of admission: 07/08/25 15:58 Primary care physician: STACIA KELLER Consults: 07/08/25 Consult to Dietitian Routine Reason for consultation: nutrition Has provider been notified: No 07/08/25 12:17 Consult to Telestroke Routine Reason for consultation: left sided weakness 07/08/25 16:02 Occupational Therapy Eval and Treat Routine Reason for consultation: Weakness Physical Therapy Eval and Treat Routine Reason for consultation: Weakness 07/09/25 10:51 Consult to Cardiology Routine Reason for consultation: NSTEMI 07/11/25 12:16 Consult to Hospice Routine Reason for consultation: goals of care Attending physician on discharge: NORMA VALDEZ Anticipated date of discharge: 07/13/25 DS: Diagnosis Discharge Diagnosis (1) Elevated troponin: (2) NSTEMI (non-ST elevated myocardial infarction): (3) CRISTINA (acute kidney injury): (4) Generalized weakness: (5) Metabolic encephalopathy: (6) CKD (chronic kidney disease): Qualifiers: Chronic kidney disease stage: stage 3 (moderate) (7) Goals of care, counseling/discussion: (8) Ambulatory dysfunction: DS: Summary Hospital Course Hospital Course: Miss Giordano is an 85 year old female who was admitted to the hospital with a CC of worsening weakness, decreased oral intake, and confusion who was found to have an CRISTINA with elevated troponin. She was subsequently admitted to the hospital for the aforementioned issues, evaluated by cardiology and it was deemed a type II nstemi secondary to dehydration, no intervention or further investigation necessary. The patient was well known the nursing staff and was clearly well below her baseline to them. She was seen by PT and OT who recommended SNF. I did have numerous long discussions with the patient and her daughter about the status of her cervical spine. On further investigation it appeared the patient had suffered a fall roughly 1 month ago, she likely bruised her spinal cord due to the severe stenosis. She was still refusing any surgical intervention so I deferred MRI. Ultimately, she was discharged to a SNF on 07/13, the day of DC her mentation was back at baseline, she was very conversive. Her and the daughter were interested in meeting with hospice to discuss furthers goals of care as she continues to decline slowly from her cervical stenosis. Time Spent with Patient Time attestation: Total time spent providing and/or coordinating discharge services: Exam Constitutional Vital Signs, click to edit/add: Last Vital Signs Temp 98.1 F 07/13/25 12:45 Pulse 82 07/13/25 12:45 Resp 18 07/13/25 12:45 BP 121/74 07/13/25 12:45 Pulse Ox 91 L 07/13/25 12:45 O2 Del Method Room Air 07/13/25 12:45 Common normals: no apparent distress General appearance: cooperative and comfortable HENMT Common normals: normocephalic and head/scalp atraumatic Head and scalp: other (cervical collar on) Chest Common normals: inspection of chest normal Respiratory Common normals: normal respiratory effort Effort & inspection: able to speak in complete sentences Auscultation: clear to auscultation bilaterally Cardio Palpation: normal PMI Rate: regular rate Rhythm: regular rhythm Heart sounds: S1 normal and S2 normal GI Common normals: Normal to inspection, nondistended, normoactive bowel sounds present Neuro Common normals: oriented x3 Discharge Plan Discharge Disposition: er [facility] Discharge Medications: Continued donepezil 5 mg tablet 5 mg PO QPM allopurinol 100 mg tablet 100 mg PO DAILY vitamin B12 1,000 mcg tablet 1 tab PO DAILY levothyroxine 50 mcg tablet 50 mcg PO QAM acetaminophen [Tylenol] 325 mg Tablet 650 mg PO Q6H PRN (Reason: Pain/fever) Qty: 0 0RF sennosides-docusate sodium [Senna Plus] 8.6-50 mg Tablet 2 tab PO QD Qty: 0 0RF aspirin 81 mg Tablet,Delayed Release (Dr/Ec) 81 mg PO QD Qty: 0 0RF docusate sodium 100 mg Capsule 100 mg PO BID Qty: 0 0RF escitalopram oxalate 10 mg Tablet 20 mg PO DAILY Qty: 0 0RF pregabalin 50 mg Capsule 50 mg PO BID Qty: 20 0RF Melatonin 6 mg PO HS Qty: 0 0RF metoprolol succinate [Toprol XL] 25 mg tablet extended release 24 hr 25 mg PO DAILY Qty: 30 1RF buprenorphine 20 mcg/hour patch weekly 1 patch transdermal Q7D Qty: 1 0RF Patient Comments: every WEDNESDAY magnesium hydroxide [Milk of Magnesia] 400 mg/5 mL suspension 30 ml PO BID PRN (Reason: constipation) pantoprazole 40 mg tablet,delayed release (DR/EC) 40 mg PO DAILY polyethylene glycol 3350 17 gram Powder In Packet 17 g PO BID diclofenac sodium 1 % gel 2 g TOPICAL BID Rx Instructions: APPLY TO NECK Changed atorvastatin [Lipitor] 10 mg tablet 80 mg PO DAILY Qty: 0 0RF Held torsemide 20 mg Tablet 20 mg PO QD Qty: 0 0RF Hold Instructions: Take PRN for weight gain Discontinued amlodipine 5 mg Tablet 5 mg PO QD Qty: 0 0RF Print Language: [place] [employer] Instructions: Discharge to [facility] skilled Forms: Portal Instructions Discharge Date/Time: 07/13/25 17:19 Discharge Location: [facility]
== END 2025-07-13 17:19 | DRG 682 ==
LOC: ER 15:17 → MS 07-10 17:20
PROVIDERS: Internal Medicine Cardiovascular Disease; Admitting Provider Internal Medicine; Emergency Provider Emergency Medicine; PCP Nurse Practitioner Family; Visit Provider Internal Medicine
DX: N17.9 Acute kidney failure, unspecified (principal); G93.41 Metabolic encephalopathy; I21.A1 Myocardial infarction type 2; G95.89 Other specified diseases of spinal cord; E86.0 Dehydration; R53.1 Weakness; E87.6 Hypokalemia; M48.02 Spinal stenosis, cervical region; E11.51 Type 2 diabetes mellitus with diabetic peripheral angiopathy without gangrene; Z87.891 Personal history of nicotine dependence; Z79.82 Long term (current) use of aspirin; Z79.899 Other long term (current) drug therapy; E11.22 Type 2 diabetes mellitus with diabetic chronic kidney disease; I45.10 Unspecified right bundle-branch block; K59.09 Other constipation; N18.30 Chronic kidney disease, stage 3 unspecified; I12.9 Hypertensive chronic kidney disease with stage 1 through stage 4 chronic kidney disease, or unspecified chronic kidney disease; Z91.81 History of falling; E03.9 Hypothyroidism, unspecified; F03.90 Unspecified dementia, unspecified severity, without behavioral disturbance, psychotic disturbance, mood disturbance, and anxiety; Z90.49 Acquired absence of other specified parts of digestive tract; Z90.710 Acquired absence of both cervix and uterus; Z79.890 Hormone replacement therapy; Z68.28 Body mass index [BMI] 28.0-28.9, adult
CPT/HCPCS: 36415; 51702; 70450; 71045; 72125; 80048; 80053; 81003; 82948; 83605; 83735; 84132; 84484; 85007; 85025; 85027; 85610; 86850; 86900; 86901; 87040; 87088; 87150; 87186; 93005; 93306; 93880; 96365; 97110; 97163; 97165; 97530; 97535; 99285; G0328; J1644; J3373; J3480

== ENCOUNTER 2025-08-25 16:40 | Emergency (ER) | payer MEDICARE, SELFPAY ==
[2025-08-25] VITALS (52 sets, daily range): BP systolic 85–146; BP diastolic 43–95; PULSE 82–107; TEMP 37.3; O2SAT 65–94; BMI 29.3
--- NOTE | 2025-08-25 16:47 | ED.GENADUL1 ---
HPI HPI - General Adult General Chief complaint: Urogenital-Female Stated complaint: PAINFUL URINATION Time Seen by Provider: 08/25/25 16:44 Source: patient Mode of arrival: ambulance History of Present Illness HPI narrative: 85-year-old female presents from [facility] for possible UTI. Her chief complaint is malodorous urine. She states that started yesterday and she believes she has a UTI. She does not complain of any pain and she has not had a fever or vomiting. Later a daughter called and spoke to one of our nurses. 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 Reportedly has been draining a little bit more than typical. Related Data Home Medications ?Medication ?Instructions ?Recorded ?Confirmed allopurinol 100 mg tablet 100 mg PO DAILY 03/05/25 07/08/25 donepezil 5 mg tablet 5 mg PO QPM 03/05/25 07/08/25 levothyroxine 50 mcg tablet 50 mcg PO QAM 03/05/25 07/08/25 vitamin B12 1 tab PO DAILY 03/05/25 07/08/25 diclofenac sodium 1 % topical gel 2 g topical BID 07/08/25 07/08/25 magnesium hydroxide 400 mg/5 mL 30 ml PO BID PRN constipation 07/08/25 07/08/25 oral suspension (Milk of Magnesia) pantoprazole 40 mg tablet,delayed 40 mg PO DAILY 07/08/25 07/08/25 release polyethylene glycol 3350 17 gram 17 g PO BID 07/08/25 07/08/25 oral powder packet Previous Rx's ?Medication ?Instructions ?Recorded Melatonin 6 mg PO HS ##0 06/29/25 acetaminophen 325 mg tablet 650 mg (2 x 325 mg) PO Q6H PRN 06/29/25 (Tylenol) Pain/fever #0 tabs aspirin 81 mg tablet,delayed 81 mg PO QD #0 tabs 06/29/25 release buprenorphine 20 mcg/hour weekly 1 patch transdermal Q7D #1 ea 06/29/25 transdermal patch docusate sodium 100 mg capsule 100 mg PO BID #0 caps 06/29/25 escitalopram oxalate 10 mg tablet 20 mg (2 x 10 mg) PO DAILY #0 tabs 06/29/25 metoprolol succinate 25 mg 25 mg PO DAILY #30 tabs 06/29/25 tablet,extended release 24 hr (Toprol XL) pregabalin 50 mg capsule 50 mg PO BID #20 caps 06/29/25 sennosides 8.6 mg-docusate sodium 2 tab PO QD #0 tabs 06/29/25 50 mg tablet (Senna Plus) torsemide 20 mg tablet 20 mg PO QD #0 tabs 06/29/25 Held on 07/13/25. Instructions: Take PRN for weight gain atorvastatin 10 mg tablet (Lipitor) 80 mg (8 x 10 mg) PO DAILY #0 tabs 07/13/25 Allergies Allergy/AdvReac Type Severity Reaction Status Date / Time codeine Allergy dizzy Verified 03/05/25 17:21 latex Allergy Rash Verified 03/05/25 17:21 meperidine (From Demerol) Allergy hallucinati Verified 03/05/25 17:21 on Sulfa (Sulfonamide Allergy Rash Verified 03/05/25 17:21 Antibiotics) Opioid HPI Opioid Management Most Recent Opioid Data: Last Pain Scale 0 07/12/25, 11:43 Last Pain Intensity 0 07/12/25, 11:43 Last ORT Total Score 2 07/08/25, 16:24 Last ORT Risk Category Low Risk 07/08/25, 16:24 Review of Systems ROS Narrative A ten point review of systems is negative except as noted above. [facility] Fall ?W19.XXXA - Unspecified fall, initial encounter (ICD-10) Hyperkalemia ?E87.5 - Hyperkalemia (ICD-10) Peripheral vascular disease ?I73.9 - Peripheral vascular disease, unspecified (ICD-10) Nerve damage ?T14.8XXA - Other injury of unspecified body region, initial encounter (ICD-10) HTN (hypertension) ?I10 - Essential (primary) hypertension (ICD-10) Diabetes ?E11.9 - Type 2 diabetes mellitus without complications (ICD-10) Surgical History History of cholecystectomy ?Z90.49 - Acquired absence of other specified parts of digestive tract (ICD-10) H/O knee surgery ?Z98.890 - Other specified postprocedural states (ICD-10) History of hysterectomy ?Z90.710 - Acquired absence of both cervix and uterus (ICD-10) Previous back surgery ?Z98.890 - Other specified postprocedural states (ICD-10) H/O neck surgery ?Z98.890 - Other specified postprocedural states (ICD-10) Family History Mother Family history of cancer Other Family history of CHF (congestive heart failure) Social History (Updated 06/25/25 @ 20:28 by Carline Spivey RN) Within the past year, how often did you have a drink containing alcohol: never Within the past year, how often did you have six or more drinks on one occasion: never Score interpretation: A score less than 3 is consistent with normal alcohol consumption. Smoking status: Former smoker Second hand tobacco smoke exposure: Yes Non-prescribed substance use: denies use Known occupational exposures/hazards: No Highest level of school completed/degree received: high school graduate Do you want help with school or training: No Are you now , , , , never or living with a partner: In a typical week, how many times do you talk on the telephone with family, friends, or neighbors: twice per week How often do you get together with friends or relatives: twice per week Little interest or pleasure in doing things: not at all Feeling down, depressed, or hopeless: not at all Feel stressed/tense/nervous/anxious/difficulty sleeping: not at all Do you think of yourself as: straight/heterosexual Gender Identity: female Exam Narrative Exam Narrative: Nurses note and vital signs reviewed General:The patient appears in no acute distress Skin:Warm, dry, no pallor noted.There is no rash noted. Head:Normocephalic, atraumatic Eye: Normal conjunctiva, no drainage Ears, Nose, Mouth, and Throat: oral mucosa is moist. Nares patent. Cardiovascular:Regular Rate and Rhythm Respiratory:Patient is in no distress, no accessory muscle use, lungs are clear to auscultation, no wheezing, rales or rhonchi GI: Soft and nontender Musculoskeletal: The patient has no evidence of calf tenderness, no pitting edema, symmetrical pulses noted bilaterally Neurological:A&O, normal speech Psychiatric:Cooperative Constitutional Vital Signs, click to edit/add: Last Vital Signs Temp 99.1 F 08/25/25 16:42 Pulse 90 08/25/25 16:42 Resp 18 08/25/25 16:42 BP 132/95 H 08/25/25 16:42 Pulse Ox 94 L 08/25/25 16:42 O2 Del Method Room Air 08/25/25 16:42 Course Vital Signs Vital signs: Vital Signs Temperature 99.1 F 08/25/25 16:42 Pulse Rate 90 08/25/25 16:42 Respiratory Rate 18 08/25/25 16:42 Blood Pressure 132/95 H 08/25/25 16:42 Pulse Oximetry 94 L 08/25/25 16:42 Oxygen Delivery Method Room Air 08/25/25 16:42 Temperature 99.1 F 08/25/25 16:42 Pulse Rate 90 08/25/25 16:42 Respiratory Rate 18 08/25/25 16:42 Blood Pressure 132/95 H 08/25/25 16:42 Pulse Oximetry 94 L 08/25/25 16:42 Oxygen Delivery Method Room Air 08/25/25 16:42 Medical Decision Making MDM Narrative Medical decision making narrative: The patient has UTI and was ordered IV Rocephin. CT scan is ordered of the abdomen to investigate this fistula. The patient is signed out to Dr. Nguyễn at change of shift. Differential Diagnosis Differential Diagnosis: UTI, fistula Lab Data Lab results reviewed: Yes I reviewed the patient's lab results Labs: Lab Results 08/25/25 08/25/25 Range/Units 17:15 17:56 WBC 9.5 (4.0-11.0) 10^3/uL RBC 4.57 (4.20-5.40) 10^6/uL Hgb 12.7 (12.0-16.0) g/dL Hct 41.2 (36.0-48.0) % MCV 90.2 (81.0-99.0) fL MCH 27.8 (26.7-34.0) pg MCHC 30.8 (29.9-35.2) g/dL RDW 19.1 H (11.0-15.0) % Plt Count 369 (150-450) 10^3/uL MPV 10.3 (9.5-13.5) fL Neut % (Auto) 42.6 L (43.0-75.0) % Lymph % (Auto) 38.9 (20.5-60.0) % [place] % (Auto) 10.7 (1.7-12.0) % Eos % (Auto) 6.2 (0.9-7.0) % Baso % (Auto) 0.7 (0.2-2.0) % Neut # (Auto) 4.1 (1.4-6.5) 10^3/uL Lymph # (Auto) 3.7 (1.2-3.8) 10^3/uL [place] # (Auto) 1.0 H (0.3-0.8) 10^3/uL Eos # (Auto) 0.6 (0.0-0.7) 10^3/uL Baso # (Auto) 0.1 (0.0-0.1) 10^3/uL Abs Immat Gran (auto) 0.09 H (0.00-0.03) 10^3/uL Imm/Tot Granulo (auto) 0.9 H (0.0-0.5) % Sodium 139 (136-145) mmol/L Potassium 4.1 (3.5-5.1) mmol/L Chloride 103 (98-107) mmol/L Carbon Dioxide 28.8 (21.0-32.0) mmol/L Anion Gap 11.3 BUN 30.0 H (7.0-18.0) mg/dL Creatinine 1.40 H (0.55-1.02) mg/dL Est GFR ( Amer) 43 L (>=60 mL/min/1.73m^2) Est GFR (Non-Af Amer) 36 L (>=60 mL/min/1.73m^2) BUN/Creatinine Ratio 21.4 Glucose 165 H (74-106) mg/dL Calcium 9.7 (8.5-10.1) mg/dL Urine Color Brown A (YELLOW) Urine Clarity Sl cloudy (CLEAR) Urine pH 6.0 (5.0-9.0) Ur Specific [place] 1.020 (1.005-1.025) Urine Protein Trace (NEG/TRACE) mg/dL Urine Glucose (UA) Negative (NEGATIVE) mg/dL Urine Ketones Negative (NEGATIVE) mg/dL Urine Occult Blood Moderate A (NEGATIVE) Urine Nitrite Positive A (NEGATIVE) Urine Bilirubin Negative (NEGATIVE) Urine Urobilinogen 1.0 (0.2-1.0) EU/dL Ur Leukocyte Esterase Moderate A (NEGATIVE) Urine RBC 0-2 (0-2) #/HPF Urine WBC 50-75 A (NONE SEEN) #/HPF Ur Squamous Epith Cells Few A (NONE/RARE) #/LPF Urine Crystals None seen (None Seen) #/HPF Urine Bacteria Moderate A (NONE SEEN) #/HPF Urine Casts None seen (NONE SEEN) #/LPF Urine Mucus Small A (NONE SEEN) Urine Yeast Seen A (NONE SEEN) Ur Culture Indicated? Yes-[facility] [place] Discharge Plan Discharge Patient Disposition: Still a Patient
--- OUTSIDE RECORDS SUMMARY | 2025-08-25 16:47 | XMS_ITS | CCD ---
Author Organization [facility] Care Team Providers Care Home Energy Consultant Supervisor Name Role Phone ABEBE, JIANLIN Unavailable Unavailable ABEBE, JIANLIN Unavailable Unavailable DURBIN, TAN Unavailable Unavailable DURBIN, TAN Unavailable Unavailable ABEBE, JIANLIN Unavailable Unavailable ABEBE, JIANLIN Unavailable Unavailable PAVLOCK, MAX ANAND Unavailable Unavailable PAVLOCK, MAX ANAND Unavailable Unavailable ABEBE, JIANLIN Unavailable Unavailable ABEBE, JIANLIN Unavailable Unavailable PAVLOCK, MAX ANAND Unavailable Unavailable PAVLOCK, MAX ANAND Unavailable Unavailable [place] Unavailable Unavailable ABEBE, JIANLIN Unavailable Unavailable KAEL [...] Unavailable Kael Adkins MD Primary Care Provider [phone] ANNA KUMAR Attending Unavailable MD Kael Adkins Primary Care Provider [phone] ScottN Wendy Attending Provider Kael Adkins MD Attending Provider [phone] STACIA KELLER Attending Unavailable PROVIDER, CONVERSION Primary Care Unavailable Jackelyn Arreola MD Attending Provider [phone] Kael Adkins Admitting Unavailable Kael Adkins Attending Unavailable Jackelyn Arreola Attending Unavailable Jackelyn Arreola Admitting Unavailable PROVIDER, CONVERSION Primary Care Unavailable PROVIDER, CONVERSION Primary Care Unavailable PROVIDER, CONVERSION Primary Care Unavailable PROVIDER, CONVERSION Primary Care Unavailable Allergies Allergy Classification Reported Allergen(s) Allergy Type Date of Onset Reaction(s) Facility (6 sources) codeine Drug Allergy 12-28-19 13 AOF, Unknown Reaction [facility] (1 source) Dust; Translations: [Dust] Propensity to adverse reactions (disorder) 12-28-19 13 [facility] (4 sources) glycerin Drug Allergy 12-28-19 13 Unknown Reaction [facility] (1 source) Grass pollen; Translations: [grass pollen] Propensity to adverse reactions (disorder) 12-28-19 13 [facility] (6 sources) Latex Drug allergy (disorder) 12-28-19 13 Unknown Reaction [facility] (2 sources) meperidine Drug Allergy 12-28-19 13 AOF [facility] (5 sources) mold extract; Translations: [Mold] Drug Allergy 12-28-19 13 Sneezing [facility] (3 sources) nitrofurantoin Drug Allergy 12-23-19 16 [facility] (1 source) sulfamethoxazole / trimethoprim Drug Allergy 12-28-19 13 [facility] (2 sources) Desonide Drug Allergy 06-13-20 13 The [facility] (2 sources) Glycerin Drug Allergy 06-13-20 13 [facility] (5 sources) Lidocaine Drug Allergy 06-13-20 13 Unknown Reaction [facility] (2 sources) Meperidine Drug Allergy 12-23-19 16 [facility] (2 sources) Sulfonamides (Antibiotic) Drug allergy (disorder) 12-23-19 16 [facility] (2 sources) Grass Pollen-[place], Standard Drug allergy (disorder) 06-13-20 13 [facility] (2 sources) Misc-ENV; Translations: [Misc-ENV] Propensity to adverse reactions (disorder) 06-13-20 13 [facility] (4 sources) Meperidine; Translations: [meperidine] Drug Allergy 04-08-20 [facility] (4 sources) Sulfonamides (Antibiotic); Translations: [Sulfa (Sulfonamide Antibiotics)] Allergy to substance 04-08-20 [facility] (4 sources) cat dander; Translations: [cat dander] Allergy to substance 04-08-20 Sneezing [facility] (4 sources) NSAIDS (Non-Steroidal Anti-Inflamma; Translations: [NSAIDS (Non-Steroidal Anti-Inflamma] Allergy to substance 04-08-20 [facility] (1 source) Codeine Drug Allergy 04-08-20 [facility] (1 source) Glycerin Drug Allergy 04-08-20 [facility] (1 source) Latex Drug allergy (disorder) 04-08-20 [facility] (1 source) Lidocaine Drug Allergy 04-08-20 [facility] Medications Current Medications Medication Drug Class(es) Dates Sig (Normalized) Sig (Original) 8 hr acetaminophen 650 mg extended release oral tablet (6 sources) Start: 05-10-2019 take 1 tablet by mouth every four to six hours as needed for pain Start: 05-10-2019 End: 11-14-2020 Acetaminophen 650 mg Supposi tory Discontinued 650 MG MI Q6H as needed for Fever May 10, 2019 12:00am November 14, 2020 8:57am [id number] 200 actuat albuterol 0.09 mg/actuat metered dose [...] May 10, 2019 11:35am polyethylene glycol 3350 12580 mg powder for oral solution (3 sources) [...] 11:25am docusate sodium 50 mg / sennosides, care home 8.6 mg oral tablet (3 sources) Start: [...] disease (1 source) Atherosclerotic heart disease of [place] coronary artery without angina pectoris; Translations: [ATHSCL HEART DISEASE OF [place] CORONARY ARTERY W/O ANG PCTRS] Onset: 8 [...] 05-24-2018 Episodic Other aftercare (1 source) Other penitentiary (current) drug therapy; Translations: [OTHER SEARCH ENGINEER (CURRENT) DRUG THERAPY] Onset: 05-24-2018 Episodic Screening [...] Positive Cocci in Clusters ORGANISM: Staphylococcus epidermidis (O:STAMARCOSI) ORGANISM: Staphylococcus sp coag neg (O:STACN) Aerobic JONATHAN Charge (PCMIC38) SUSCEPTIBILITY ORGANISM: O:STAEPI ANTIBIOTIC INTERPRETATION JONATHAN Azithromycin R >4 Ciprofloxacin S <1 Daptomycin S <0.5 Levofloxacin S <1 Linezolid S <1 Oxacillin R >2 Penicillin R >2 Tetracycline S <4 Trimethoprim/Sulfamethoxaz ole S <0.5 Vancomycin S 1 Aerobic JONATHAN Charge (PCMIC38) SUSCEPTIBILITY ORGANISM: O:STACN ANTIBIOTIC INTERPRETATION JONATHAN Azithromycin R >4 Ciprofloxacin R >2 Daptomycin S <0.5 Levofloxacin R >4 Linezolid S 2 Oxacillin R 2 Penicillin R >2 Tetracycline R >8 Trimethoprim/Sulfamethoxaz ole R >2 Vancomycin S 0.5 S = SUSCEPTIBLE I = INTERMEDIATE R = RESISTANT BLANK = DATA NOT AVAILABLE, OR DRUG NOT ADVISABLE OR TESTED R* = RESISTANCE DUE TO EXTENDED SPECTRUM BETA-LACTAMASES ESBL = EXTENDED SPECTRUM BETA-LACTAMASE TFG = THYMIDINE-DEPENDENT STRAIN ZAYRA = BETA-LACTAMASE POSITIVE IB = INDUCIBLE BETA-LACTAMASE. APPEARS IN PLACE OF 'S' WITH SPECIES KNOWN TO POSSESS INDUCIBLE BETA-LACTAMASES. POTENTIALLY THEY MAY BECOME RESISTANT TO ALL B-LACTAM DRUGS. PERFORMED BY: [facility] [address] [place] [address] PATHOLOGIST VALVE MAKER RAFAEL GARCIA M.D. Normal [facility] Comment on above: Performed By: #### C UBLD #### [facility] [address] URINALYSISon 06-14-2025 Bilirubin Ql (U) Negative Normal Negative [facility] Comment on above: Order Comment: Urine received without preservative. Delays in transport may affect results. Interpret with caution. A clinical correlation is recommended. Performed By: #### T HYR #### [facility] ([address] [address] VIR BLOOD/HGB Trace Abnormal Negative [facility] Comment on above: Order Comment: Urine received without preservative. Delays in transport may affect results. Interpret with caution. A clinical correlation is recommended. Performed By: #### T HYR #### [facility] ([facility]) [address] [place] [id number] VIR Color (U) Yellow Normal Yellow [facility] Comment on above: Order Comment: Urine received without preservative. Delays in transport may affect results. Interpret with caution. A clinical correlation is recommended. Performed By: #### T HYR #### [facility] ([address] [address] VIR Glucose Ql (U) Negative Normal Negative, 250 mg/dL [facility] Comment on above: Order Comment: Urine received without preservative. Delays in transport may affect results. Interpret with caution. A clinical correlation is recommended. Performed By: #### T HYR #### [facility] ([address] [place] [address] VIR Ketones Ql (U) Negative Normal Negative [facility] Comment on above: Order Comment: Urine received without preservative. Delays in transport may affect results. Interpret with caution. A clinical correlation is recommended. Performed By: #### T HYR #### [facility] ([address] [place] [address] VIR Leukocyte esterase Test strip Ql (U) Moderate Abnormal Negative [facility] Comment on above: Order Comment: Urine received without preservative. Delays in transport may affect results. Interpret with caution. A clinical correlation is recommended. Performed By: #### T HYR #### [facility] ([address] [place] [address] VIR Nitrite Ql (U) Positive Abnormal Negative [facility] Comment on above: Order Comment: Urine received without preservative. Delays in transport may affect results. Interpret with caution. A clinical correlation is recommended. Performed By: #### T HYR #### [facility] ([address] [place] [address] VIR PH,URINE 6.0 Normal 5.0-8.5 [facility] Comment on above: Order Comment: Urine received without preservative. Delays in transport may affect results. Interpret with caution. A clinical correlation is recommended. Performed By: #### T HYR #### [facility] ([address] [place] [address] VIR Protein Ql (U) Trace Abnormal Negative [facility] Comment on above: Order Comment: Urine received without preservative. Delays in transport may affect results. Interpret with caution. A clinical correlation is recommended. Performed By: #### T HYR #### [facility] ([facility]) [address] [place] [address] VIR R.B.CELLS 3 Normal 0-5 [facility] Comment on above: Order Comment: Urine received without preservative. Delays in transport may affect results. Interpret with caution. A clinical correlation is recommended. Performed By: #### T HYR #### [facility] ([facility]) [address] [place] [address] VIR Specific gravity (U) [Rel density] 1.025 Normal 1.003-1.035 [facility] Comment on above: Order Comment: Urine received without preservative. Delays in transport may affect results. Interpret with caution. A clinical correlation is recommended. Performed By: #### T HYR #### [facility] ([address] [address] VIR SQUAMOUS EPITHELIUM 2 Normal 0-5 [facility] Comment on above: Order Comment: Urine received without preservative. Delays in transport may affect results. Interpret with caution. A clinical correlation is recommended. Performed By: #### T HYR #### [facility] ([address] [address] VIR TURBIDITY Cloudy Abnormal Clear [facility] Comment on above: Order Comment: Urine received without preservative. Delays in transport may affect results. Interpret with caution. A clinical correlation is recommended. Performed By: #### T HYR #### [facility] ([address] [address] VIR UROBILINOGEN 0.2 eu/dL Normal 0.2 eu/dL, 1.0 eu/dL [facility] Comment on above: Order Comment: Urine received without preservative. Delays in transport may affect results. Interpret with caution. A clinical correlation is recommended. Performed By: #### T HYR #### [facility] ([address] [address] VIR W.B.CELLS >^100 High 0-5 [facility] Comment on above: Order Comment: Urine received without preservative. Delays in transport may affect results. Interpret with caution. A clinical correlation is recommended. Performed By: #### T HYR #### [facility] ([address] [address] VIR URINE CULTUREon 06-14-2025 Bacteria identified Cx [...] Trimethoprim + Sulfamethoxazole S <=^1.0 F Susceptible [facility] Comment on above: Order Comment: Along with 10,000 to 50,000 CFU/mL Normal Urogenital Dania.Urine received without preservative - delays in transport may affect results. Interpret with caution and clinical correlation is recommended. Performed By: #### T HYR #### [facility] ([address] [place] [address] VIR URINALYSISon 05-23-2025 Bilirubin Ql (U) Negative Normal Negative [facility] Comment on above: Performed By: #### T HYR #### [facility] ([address] [place] [address] VIR BLOOD/HGB Negative Normal Negative [facility] Comment on above: Performed By: #### T HYR #### [facility] ([facility]) [address] [place] [address] VIR Color (U) Yellow Normal Yellow, Colorless [facility] Comment on above: Performed By: #### T HYR #### [facility] ([address] [place] [address] VIR Glucose Ql (U) Negative Normal Negative, 250 mg/dL [facility] Comment on above: Performed By: #### T HYR #### [facility] ([address] [place] [address] VIR Ketones Ql (U) Negative Normal Negative [facility] Comment on above: Performed By: #### T HYR #### [facility] ([address] [address] VIR Leukocyte esterase Test strip Ql (U) Moderate Abnormal Negative [facility] Comment on above: Performed By: #### T HYR #### [facility] ([address] [place] [address] VIR Nitrite Ql (U) Positive Abnormal Negative [facility] Comment on above: Performed By: #### T HYR #### [facility] ([address] [address] VIR PH,URINE 6.0 Normal 5.0-8.5 [facility] Comment on above: Performed By: #### T HYR #### [facility] ([address] [address] VIR Protein Ql (U) Trace Abnormal Negative [facility] Comment on above: Performed By: #### T HYR #### [facility] ([address] [address] VIR R.B.CELLS 3 Normal 0-5 [facility] Comment on above: Performed By: #### T HYR #### [facility] ([address] [address] VIR Specific gravity (U) [Rel density] 1.020 Normal 1.003-1.035 [facility] Comment on above: Performed By: #### T HYR #### [facility] ([address] [address] VIR SQUAMOUS EPITHELIUM 1 Normal 0-5 [facility] Comment on above: Performed By: #### T HYR #### [facility] ([address] [address] VIR TURBIDITY Hazy Abnormal Clear [facility] Comment on above: Performed By: #### T HYR #### [facility] ([address] [address] VIR UROBILINOGEN 0.2 eu/dL Normal 0.2 eu/dL, 1.0 eu/dL [facility] Comment on above: Performed By: #### T HYR #### [facility] ([address] [address] VIR W.B.CELLS 90 High 0-5 [facility] Comment on above: Performed By: #### T HYR #### [facility] ([address] [address] VIR URINE CULTUREon 05-23-2025 Bacteria identified Cx [...] Trimethoprim + Sulfamethoxazole S <=^1.0 F Susceptible [facility] Comment on above: Performed By: #### T HYR #### [facility] ([address] [address] VIR URINALYSISon 05-01-2025 Bilirubin Ql (U) Negative Normal Negative [facility] Comment on above: Order Comment: Urine received without preservative. Delays in transport may affect results. Interpret with caution. A clinical correlation is recommended. Performed By: #### U A #### [address] [address] VIR BLOOD/HGB Negative Normal Negative [facility] Comment on above: Order Comment: Urine received without preservative. Delays in transport may affect results. Interpret with caution. A clinical correlation is recommended. Performed By: #### U A #### [address] [address] VIR Color (U) Yellow Normal Yellow, Colorless [facility] Comment on above: Order Comment: Urine received without preservative. Delays in transport may affect results. Interpret with caution. A clinical correlation is recommended. Performed By: #### U A #### [address] [address] VIR Glucose Ql (U) Negative Normal Negative, 250 mg/dL [facility] Comment on above: Order Comment: Urine received without preservative. Delays in transport may affect results. Interpret with caution. A clinical correlation is recommended. Performed By: #### U A #### [address] [address] VIR Ketones Ql (U) Negative Normal Negative [facility] Comment on above: Order Comment: Urine received without preservative. Delays in transport may affect results. Interpret with caution. A clinical correlation is recommended. Performed By: #### U A #### [place] [id number] [place] [address] VIR Leukocyte esterase Test strip Ql (U) Trace Abnormal Negative [facility] Comment on above: Order Comment: Urine received without preservative. Delays in transport may affect results. Interpret with caution. A clinical correlation is recommended. Performed By: #### U A #### [facility] ([address] [address] VIR Nitrite Ql (U) Negative Normal Negative [facility] Comment on above: Order Comment: Urine received without preservative. Delays in transport may affect results. Interpret with caution. A clinical correlation is recommended. Performed By: #### U A #### [address] [address] VIR PH,URINE 6.0 Normal 5.0-8.5 [facility] Comment on above: Order Comment: Urine received without preservative. Delays in transport may affect results. Interpret with caution. A clinical correlation is recommended. Performed By: #### U A #### [facility] ([address] [address] VIR Protein Ql (U) Negative Normal Negative [facility] Comment on above: Order Comment: Urine received without preservative. Delays in transport may affect results. Interpret with caution. A clinical correlation is recommended. Performed By: #### U A #### [address] [address] VIR Specific gravity (U) [Rel density] <=^1.005 Normal 1.003-1.035 [facility] Comment on above: Order Comment: Urine received without preservative. Delays in transport may affect results. Interpret with caution. A clinical correlation is recommended. Performed By: #### U A #### [facility] ([address] [address] VIR SQUAMOUS EPITHELIUM 1 Normal 0-5 [facility] Comment on above: Order Comment: Urine received without preservative. Delays in transport may affect results. Interpret with caution. A clinical correlation is recommended. Performed By: #### U A #### [facility] ([address] [address] VIR TURBIDITY Clear Normal Clear [facility] Comment on above: Order Comment: Urine received without preservative. Delays in transport may affect results. Interpret with caution. A clinical correlation is recommended. Performed By: #### U A #### [facility] ([address] [address] VIR UROBILINOGEN 0.2 eu/dL Normal 0.2 eu/dL, 1.0 eu/dL [facility] Comment on above: Order Comment: Urine received without preservative. Delays in transport may affect results. Interpret with caution. A clinical correlation is recommended. Performed By: #### U A #### [address] [address] VIR W.B.CELLS 20 High 0-5 [facility] Comment on above: Order Comment: Urine received without preservative. Delays in transport may affect results. Interpret with caution. A clinical correlation is recommended. Performed By: #### U A #### [address] [address] VIR URINE CULTUREon 05-01-2025 Bacteria identified Cx [...] Trimethoprim + Sulfamethoxazole S <=^1.0 F Susceptible [facility] Comment on above: Order Comment: Urine received without preservative - delays in transport may affect results. Interpret with caution and clinical correlation is recommended. Performed By: #### T HYR #### [facility] ([address] [place] [address] VIR BASIC METABOLIC PANELon 06-0 Anion gap [Moles/Vol] 12 mmol/L Normal 5-15 [facility] Comment on above: Performed By: #### B MP #### [facility] ([address] [address] VIR Calcium [Mass/Vol] 9.4 mg/dL Normal 8.5-10.5 [facility] Comment on above: Performed By: #### B MP #### [address] [address] VIR Chloride [Moles/Vol] 102 mmol/L Normal 98-109 [facility] Comment on above: Performed By: #### B MP #### [facility] ([address] [address] VIR CO2 [Moles/Vol] 21 mmol/L Low 22-32 [facility] Comment on above: Performed By: #### B MP #### [facility] ([address] [address] VIR Creatinine [Mass/Vol] 2.29 mg/dL High 0.40-1.00 [facility] Comment on above: Result Comment: METH OD TRACEABLE TO IDMS STANDARD Performed By: #### B MP #### [facility] ([address] [address] VIR GFR/1.73 sq M.predicted among non-blacks MDRD (S/P/Bld) [Vol rate/Area] 20 mL/min/{1.73_m2} Low >=60 [facility] Comment on above: Result Comment: eGFR not reported due to non-numeric value for Creatinine. Reported eGFR is based on the CKD-EPI 2020 equation that does not use a race coefficient. Performed By: #### B MP #### [facility] ([address] [address] VIR Glucose [Mass/Vol] 188 mg/dL High 65-99 [facility] Comment on above: Performed By: #### B MP #### [facility] ([address] [address] VIR Potassium [Moles/Vol] 4.9 mmol/L Normal 3.5-5.0 [facility] Comment on above: Performed By: #### B MP #### [facility] ([address] [address] VIR Sodium [Moles/Vol] 135 mmol/L Normal 134-146 [facility] Comment on above: Performed By: #### B MP #### [facility] ([address] [address] VIR Urea nitrogen [Mass/Vol] 29 mg/dL High 5-27 [facility] Comment on above: Performed By: #### B MP #### [facility] ([address] [address] VIR Urine Cultureon 03-07-2025 Bacteria identified Cx Nom (U) 25,000 colonies/ml mixed bacterial skin contaminants 2 Days PERFORMED BY: [place] [address] PATHOLOGIST VALVE MAKER DEBORAH VIZCAINO M.D. Normal [facility] Comment on above: Performed By: #### C UU #### [address] CBC WITH AUTO DIFFERENTIALon 03-05-2025 BASOPHILS ABSOLUTE COUNT (10*3/UL) BY AUTOMATED COUNT 0.0 10*3/uL Normal [facility] Comment on above: Performed By: #### C BCA #### [facility] ([address] [address] VIR BASOPHILS RELATIVE PERCENT BY AUTOMATED COUNT 0.7 % Normal [facility] Comment on above: Performed By: #### C BCA #### [facility] ([address] [address] VIR CELLAVISION DIFFERENTIAL TYPE AUTOMATED DIFFERENTIAL [facility] Comment on above: Performed By: #### C BCA #### [facility] ([address] [address] VIR Eosinophils (Bld) [#/Vol] 0.2 10*3/uL Normal [facility] Comment on above: Performed By: #### C BCA #### [facility] ([address] [address] VIR EOSINOPHILS RELATIVE PERCENT BY AUTOMATED COUNT 2.5 % Normal [facility] Comment on above: Performed By: #### C BCA #### [facility] ([address] [address] VIR Erythrocyte distribution width (RBC) [Ratio] 15.8 % High 11.5-15 [facility] Comment on above: Performed By: #### C BCA #### [facility] ([address] [address] VIR Hematocrit (Bld) [Volume fraction] 34.8 % Low 35-47 [facility] Comment on above: Performed By: #### C BCA #### [facility] ([address] [address] VIR Hemoglobin (Bld) [Mass/Vol] 11.4 g/dL Low 11.7-15.5 [facility] Comment on above: Performed By: #### C BCA #### [facility] ([facility]) [address] [place] [address] [place] [address] VIR LYMPHOCYTES ABSOLUTE COUNT (10*3/UL) BY AUTOMATED COUNT 2.0 10*3/uL Normal [facility] Comment on above: Performed By: #### C BCA #### [facility] ([address] [place] [address] VIR LYMPHOCYTES RELATIVE PERCENT BY AUTOMATED COUNT 30.3 % Normal [facility] Comment on above: Performed By: #### C BCA #### [facility] ([address] [place] [address] VIR MCH (RBC) [Entitic mass] 28.6 pg Normal 27-34 [facility] Comment on above: Performed By: #### C BCA #### [facility] ([address] [place] [address] VIR MCHC (RBC) [Mass/Vol] 32.7 g/dL Normal 32-36 [facility] Comment on above: Performed By: #### C BCA #### [facility] ([address] [place] [address] VIR MCV (RBC) [Entitic vol] 88 fL Normal 80-100 [facility] Comment on above: Performed By: #### C BCA #### [facility] ([address] [place] [address] VIR MONOCYTES ABSOLUTE COUNT (10*3/UL) BY AUTOMATED COUNT 0.6 10*3/uL Normal [facility] Comment on above: Performed By: #### C BCA #### [facility] ([address] [place] [address] VIR MONOCYTES RELATIVE PERCENT BY AUTOMATED COUNT 8.9 % Normal [facility] Comment on above: Performed By: #### C BCA #### [facility] ([address] [place] [address] VIR NEUTROPHILS ABSOLUTE COUNT BY AUTOMATED COUNT 3.8 10*3/uL Normal [facility] Comment on above: Performed By: #### C BCA #### [facility] ([address] [place] [address] VIR NEUTROPHILS RELATIVE PERCENT BY AUTOMATED COUNT 57.6 % Normal [facility] Comment on above: Performed By: #### C BCA #### [facility] ([address] [place] [address] VIR Platelet mean volume (Bld) [Entitic vol] 9.0 fL Normal 7-12 [facility] Comment on above: Performed By: #### C BCA #### [facility] ([address] [place] [address] VIR Platelets (Bld) [#/Vol] 236 10*3/uL Normal 150-450 [facility] Comment on above: Performed By: #### C BCA #### [facility] ([address] [place] [address] VIR RBC COUNT 3.98 X10E12/L Normal 3.8-5.2 [facility] Comment on above: Performed By: #### C BCA #### [facility] ([address] [place] [address] VIR WBC (Bld) [#/Vol] 6.6 10*3/uL Normal 4-11 [facility] Comment on above: Performed By: #### C BCA #### [facility] ([address] [place] [address] VIR COMPREHENSIVE METABOLIC PANE [place] 03-05-2025 Albumin [Mass/Vol] 4.1 g/dL Normal 3.2-5.3 [facility] Comment on above: Performed By: #### C MP #### [facility] ([address] [place] [address] VIR ALP [Catalytic activity/Vol] 76 U/L Normal 39-130 [facility] Comment on above: Performed By: #### C MP #### [facility] ([place] [address] [place] [address] VIR ALT [Catalytic activity/Vol] 18 U/L Normal <=31 [facility] Comment on above: Performed By: #### C MP #### [facility] ([address] [place] [address] VIR Anion gap [Moles/Vol] 8 mmol/L Normal 5-15 [facility] Comment on above: Performed By: #### C MP #### [facility] ([address] [place] [address] VIR AST [Catalytic activity/Vol] 21 U/L Normal <=41 [facility] Comment on above: Performed By: #### C MP #### [facility] ([address] [place] [address] VIR Bilirubin [Mass/Vol] 0.6 mg/dL Normal 0.3-1.2 [facility] Comment on above: Performed By: #### C MP #### [facility] ([address] [address] VIR Calcium [Mass/Vol] 9.4 mg/dL Normal 8.5-10.5 [facility] Comment on above: Performed By: #### C MP #### [facility] ([address] [place] [address] VIR Chloride [Moles/Vol] 103 mmol/L Normal 98-109 [facility] Comment on above: Performed By: #### C MP #### [facility] ([place] [address] [place] [address] VIR CO2 [Moles/Vol] 24 mmol/L Normal 22-32 [facility] Comment on above: Performed By: #### C MP #### [facility] ([address] [place] [address] VIR Creatinine [Mass/Vol] 2.14 mg/dL High 0.40-1.00 [facility] Comment on above: Result Comment: METH OD TRACEABLE TO IDMS STANDARD Performed By: #### C MP #### [facility] ([address] [place] [address] VIR GFR/1.73 sq M.predicted among non-blacks MDRD (S/P/Bld) [Vol rate/Area] 22 mL/min/{1.73_m2} Low >=60 [facility] Comment on above: Result Comment: Repo rted eGFR is based on the CKD-EPI 2020 equation that does not use a race coefficient. Performed By: #### C MP #### [address] [place] [address] VIR Glucose [Mass/Vol] 102 mg/dL High 65-99 [facility] Comment on above: Performed By: #### C MP #### [address] [place] [address] VIR Potassium [Moles/Vol] 6.3 mmol/L Critically high 3.5-5.0 [facility] Comment on above: Performed By: #### C MP #### [facility] ([address] [place] [address] VIR Protein [Mass/Vol] 7.0 g/dL Normal 6.0-8.0 [facility] Comment on above: Performed By: #### C MP #### [facility] ([address] [place] [address] VIR Sodium [Moles/Vol] 135 mmol/L Normal 134-146 [facility] Comment on above: Performed By: #### C MP #### [facility] ([address] [place] [address] VIR Urea nitrogen [Mass/Vol] 30 mg/dL High 5-27 [facility] Comment on above: Performed By: #### C MP #### [facility] ([facility]) [address] [place] [address] VIR HEMOGLOBIN A1Con 03-05-2025 Glucose [Mass/Vol] 123 mg/dL Normal [facility] Comment on above: Performed By: #### H A1C #### [facility] ([facility]) [address] [place] [address] VIR HbA1c (Bld) [Mass fraction] 5.9 % High 4.4-5.6 [facility] Comment on above: Result Comment: ADA Guidelines Result HgbA1c Normal : less than 5.7 % Prediabetes : 5.7 % to 6.4 % Diabetes : > 6.4 % Use with caution in patients with abnormal hemoglobin variants as the half-life of red blood cells and in vivo glycation rates are affected. Performed By: #### H A1C #### [facility] ([facility]) [address] [place] [address] VIR INSULINon 03-05-2025 INSULIN 19.48 uIU/mL Normal 1.00-23.00 [facility] Comment on above: Order Comment: Ref. range is for FASTING NON-DIABETIC POPULATION. Performed By: #### I NSL #### [facility] ([facility]) [address] [place] [address] VIR IRON AND TIBCon 03-05-2025 Iron [Mass/Vol] 48 ug/dL Low 50-170 [facility] Comment on above: Performed By: #### F EPR #### [facility] ([facility]) [address] [place] [address] VIR IRON BINDING 515 ug/dL High 250-425 [facility] Comment on above: Performed By: #### F EPR #### [facility] ([facility]) [address] [place] [address] VIR IRON SATURATION 9 % SATURATION Low 15-50 [facility] Comment on above: Performed By: #### F EPR #### [facility] ([facility]) [address] [place] [address] VIR Transferrin [Mass/Vol] 368 mg/dL High 168-336 [facility] Comment on above: Performed By: #### F EPR #### [facility] ([facility]) [address] [place] [address] VIR LIPID PROFILEon 03-05-2025 Cholesterol [Mass/Vol] 186 mg/dL Normal 150-200 [facility] Comment on above: Performed By: #### L IPR #### [facility] ([facility]) [address] [place] [address] VIR Cholesterol in HDL [Mass/Vol] 43 mg/dL Normal >39 [facility] Comment on above: Result Comment: HDL <40 mg/dL - High Risk HDL > or = 40mg/dL- Desirable HDL >60 mg/dL - Negative Risk Performed By: #### L IPR #### [facility] ([facility]) [address] [place] [address] VIR Cholesterol in LDL [Mass/Vol] 100 mg/dL Normal <130 [facility] Comment on above: Result Comment: LDL <100 mg/dL - Desirable LDL >160 mg/dL - High Risk Performed By: #### L IPR #### [facility] ([facility]) [address] [place] [address] VIR CHOLESTEROL:HDL 4.3 Normal 1.0-5.0 [facility] Comment on above: Performed By: #### L IPR #### [facility] ([facility]) [address] [place] [address] VIR Triglyceride [Mass/Vol] 217 mg/dL High 27-150 [facility] Comment on above: Performed By: #### L IPR #### [facility] ([facility]) [address] [place] [address] VIR VERY LOW LIPOPROTEIN 43 mg/dL High 0-30 [facility] Comment on above: Performed By: #### L IPR #### [facility] ([facility]) [address] [place] [address] VIR THYROID PROFILE INCLUDES TSH FT4on 03-05-2025 Free T4 [Mass/Vol] 0.93 ng/dL Normal 0.61-1.60 [facility] Comment on above: Performed By: #### T HYR #### [facility] ([address] [place] [address] VIR TSH 2.21 uIU/mL Normal 0.49-4.67 [facility] Comment on above: Performed By: #### T HYR #### [facility] ([address] [place] [place] [address] VIR VITAMIN D 25 HYDROXYon 03-05 VITAMIN D 25 HYD TOT 35.4 ng/mL Normal 30.0-100.0 [facility] Comment on above: Order Comment: Vitam in D status 25 [place] Vitamin D Deficiency <20 ng/mL Insufficiency 20-29 ng/mL Sufficiency 30-100 ng/mL Toxicity >100 ng/mL NOTE: A pediatric reference range has not been established by the sport shoe spike assembler of this kit. The [place] [employer] recommends a Vitamin D level of = or >20ng/mL in infants and children. Performed By: #### V ITD #### [facility] ([facility]) [address] [place] [address] VIR CULTURE URINEon 01-22-2023 CULTURE URINE Culture Observations : NO GROWTH. Normal [facility] Comment on above: Performed By: #### U A #### [facility] [address] [address] [address] Noreen Castro UA RANDOM W/MICROSCOPICon BACTERIA NONE SEEN Normal NONE SEEN [facility] Comment on above: Performed By: #### U AMIC #### [facility] [address] [address] [address] Noreen Castro Bilirubin Ql (U) Negative Normal NEGATIVE [facility] Comment on above: Performed By: #### U AMIC #### [facility] [address] [address] [address] Noreen Castro CAST NONE SEEN Normal NONE SEEN [facility] Comment on above: Performed By: #### U AMIC #### [facility] [address] [address] [address] Noreen Castro Clarity (U) SL CLOUDY Abnormal CLEAR [facility] Comment on above: Performed By: #### U AMIC #### [facility] [address] [address] [address] Noreen Castro Color (U) LT. YELLOW Normal YELLOW [facility] Comment on above: Performed By: #### U AMIC #### [facility] [address] [address] [address] Noreen Castro Crystals LM Nom (Urine sed) NONE SEEN Normal NONE SEEN [facility] Comment on above: Performed By: #### U AMIC #### [facility] [address] [place] [address] Dr. Noreen Castro Epithelial cells LM Ql (Urine sed) FEW Abnormal NONE SEEN /RARE [facility] Comment on above: Performed By: #### U AMIC #### [facility] [address] [address] [address] Noreen Castro Glucose Ql (U) Negative Normal NEGATIVE [facility] Comment on above: Performed By: #### U AMIC #### [facility] [address] [address] [address] Noreen Castro Hemoglobin Ql (U) Negative Normal NEGATIVE [facility] Comment on above: Performed By: #### U AMIC #### [facility] [address] [address] [address] Noreen Castro Ketones Ql (U) Negative Normal NEGATIVE [facility] Comment on above: Performed By: #### U AMIC #### [facility] [address] [place] [address] Dr. Noreen Castro LEUKOCYTES Negative Normal NEGATIVE [facility] Comment on above: Performed By: #### U AMIC #### [facility] [address] [place] [address] Dr. Noreen Castro MUCOUS NONE SEEN Normal NONE SEEN [facility] Comment on above: Performed By: #### U AMIC #### [facility] [address] [place] [address] Dr. Noreen Castro Nitrite Ql (U) Negative Normal NEGATIVE [facility] Comment on above: Performed By: #### U AMIC #### [facility] [address] [place] [address] Dr. Noreen Castro pH (U) 6.0 [pH] Normal 5-9 [facility] Comment on above: Performed By: #### U AMIC #### [facility] [address] [place] [address] Dr. Noreen Castro RBC NONE SEEN Abnormal 0-2 [facility] Comment on above: Performed By: #### U AMIC #### [facility] [address] [place] [address] Dr. Noreen Castro SPEC GRAVITY 1.015 Normal 1.005-<=1.02 5 [facility] Comment on above: Performed By: #### U AMIC #### [facility] [address] [place] [address] Dr. Noreen Castro UA PROTEIN TRACE Normal NEGATIVE/ TRACE [facility] Comment on above: Performed By: #### U AMIC #### [facility] [address] [place] [address] Dr. Noreen Castro Urobilinogen Qn (U) 0.2 {Scarlett'U}/dL Normal 0.2 - 1.0 [facility] Comment on above: Performed By: #### U AMIC #### [facility] [address] [place] [address] Dr. Noreen Castro WBC 0-2 Abnormal NONE SEEN [facility] Comment on above: Performed By: #### U AMIC #### [facility] [address] [place] [address] Dr. Noreen Castro BILIRUBIN CONJUGATED (DIRECT )on 11-16-2022 BILI, CONJUGATED 0.1 mg/dL Normal 0.0-0.2 [facility] Comment on above: Performed By: #### D NATASHA, CMP #### [facility] [address] [place] [address] Dr. Noreen Castro CBC AUTO DIFFon 11-16-2022 BASO # 0.1 103/ul Normal 0.0-0.1 [facility] Comment on above: Performed By: #### C BC #### [facility] [address] [place] [address] Dr. Noreen Castro Basophils/100 WBC (Bld) 0.6 % Normal 0.2-2.0 [facility] Comment on above: Performed By: #### C BC #### [facility] [address] [place] [address] Dr. Noreen Castro EO # 0.2 103/ul Normal 0.0-0.7 [facility] Comment on above: Performed By: #### C BC #### [facility] [address] [place] [address] Dr. Noreen Castro Eosinophils/100 WBC (Bld) 1.8 % Normal 0.9-7.0 [facility] Comment on above: Performed By: #### C BC #### [facility] [address] [place] [address] Dr. Noreen Castro Erythrocyte distribution width (RBC) [Ratio] 14.1 % Normal 11.0-15.0 [facility] Comment on above: Performed By: #### C BC #### [facility] [address] [place] [address] Dr. Noreen Castro Hematocrit (Bld) [Volume fraction] 35.0 % Critically low 36.0-48.0 [facility] Comment on above: Performed By: #### C BC #### [facility] [address] [address] [address] Noreen Castro Hemoglobin (Bld) [Mass/Vol] 12.0 g/dL Normal 12.0-16.0 [facility] Comment on above: Performed By: #### C BC #### [facility] [address] [address] [address] Noreen Castro IG # 0.07 10e3/ul Critically high 0.00-0.03 [facility] Comment on above: Performed By: #### C BC #### [facility] [address] [address] [address] Noreen Castro IG % 0.7 % Critically high 0.0-0.5 [facility] Comment on above: Performed By: #### C BC #### [facility] [address] [place] [address] Dr. Noreen Castro LYMPH # 2.8 103/ul Normal 1.2-3.8 [facility] Comment on above: Performed By: #### C BC #### [facility] [address] [place] [address] Dr. Noreen Castro Lymphocytes/100 WBC (Bld) 27.1 % Normal 20.5-60.0 [facility] Comment on above: Performed By: #### C BC #### [facility] [address] [place] [address] Dr. Noreen Castro MANUAL DIFF REQ NO Normal [facility] Comment on above: Performed By: #### C BC #### [facility] [address] [place] [address] Dr. Noreen Castro MCH (RBC) [Entitic mass] 31.1 pg Normal 26.7-34.0 [facility] Comment on above: Performed By: #### C BC #### [facility] [address] [place] [address] Dr. Noreen Castro MCHC (RBC) [Mass/Vol] 34.3 g/dL Normal 29.9-35.2 [facility] Comment on above: Performed By: #### C BC #### [facility] [address] [address] [address] Noreen Castro MCV (RBC) [Entitic vol] 90.7 fL Normal 81.0-99.0 [facility] Comment on above: Performed By: #### C BC #### [facility] [address] [place] [address] Dr. Noreen Castro MONO # 0.8 103/ul Normal 0.3-0.8 [facility] Comment on above: Performed By: #### C BC #### [facility] [address] [place] [address] Dr. Noreen Castro Monocytes/100 WBC (Bld) 8.0 % Normal 1.7-12.0 [facility] Comment on above: Performed By: #### C BC #### [facility] [address] [place] [address] Dr. Noreen Castro NEUT # 6.3 103/ul Normal 1.4-6.5 [facility] Comment on above: Performed By: #### C BC #### [facility] [address] [place] [address] Dr. Noreen Castro Neutrophils/100 WBC (Bld) 61.8 % Normal 43.0-75.0 [facility] Comment on above: Performed By: #### C BC #### [facility] [address] [place] [address] Dr. Noreen Castro Platelet mean volume (Bld) [Entitic vol] 9.6 fL Normal 9.5-13.5 [facility] Comment on above: Performed By: #### C BC #### [facility] [address] [place] [address] Dr. Noreen Castro PLT 210 103/ul Normal 150-450 [facility] Comment on above: Performed By: #### C BC #### [facility] [address] [place], [place] [address] Dr. Noreen Castro RBC 3.86 106/ul Critically low 4.20-5.40 [facility] Comment on above: Performed By: #### C BC #### [facility] [address] [place] [address] Dr. Noreen Castro WBC 10.1 103/ul Normal 4.0-11.0 [facility] Comment on above: Performed By: #### C BC #### [facility] [address] [place] [address] Dr. Noreen Castro PROF 14(COMP METB)on 023 Albumin [Mass/Vol] 3.8 g/dL Normal 3.4-5.0 [facility] Comment on above: Performed By: #### D NATASHA, CMP #### [facility] [address] [place] [address] Dr. Noreen Castro Albumin/Globulin [Mass ratio] 1.1 {ratio} Normal [facility] Comment on above: Performed By: #### D NATASHA, CMP #### [facility] [address] [place] [address] Dr. Noreen Castro ALP [Catalytic activity/Vol] 76 U/L Normal 46-116 [facility] Comment on above: Performed By: #### D NATASHA, CMP #### [facility] [address] [place] [address] Dr. Noreen Castro ALT [Catalytic activity/Vol] 15 U/L Normal 14-59 [facility] Comment on above: Performed By: #### D NATASHA, CMP #### [facility] [address] [place] [address] Dr. Noreen Castro Anion gap [Moles/Vol] 12.7 mmol/L Normal [facility] Comment on above: Performed By: #### D NATASHA, CMP #### [facility] [address] [place] [address] Dr. Noreen Castro AST [Catalytic activity/Vol] 19 U/L Normal 15-37 [facility] Comment on above: Performed By: #### D NATASHA, CMP #### [facility] [address] [place] [address] Dr. Noreen Castro Bilirubin [Mass/Vol] 0.3 mg/dL Normal 0.2-1.0 [facility] Comment on above: Performed By: #### D NATASHA, CMP #### [facility] [address] [place] [address] Dr. Noreen Castro Calcium [Mass/Vol] 9.6 mg/dL Normal 8.5-10.1 [facility] Comment on above: Performed By: #### D NATASHA, CMP #### [facility] [address] [address] [address] Noreen Castro Chloride [Moles/Vol] 100 mmol/L Normal 98-107 [facility] Comment on above: Performed By: #### D NATASHA, CMP #### [facility] [address] [address] [address] Noreen Castro CO2 [Moles/Vol] 29.4 mmol/L Normal 21.0-32.0 [facility] Comment on above: Performed By: #### D NATASHA, CMP #### [facility] [address] [place] [address] Dr. Noreen Castro Creatinine [Mass/Vol] 2.18 mg/dL Critically high 0.55-1.02 [facility] Comment on above: Performed By: #### D NATASHA, CMP #### [facility] [address] [place] [address] Dr. Noreen Castro EGFR-AF [place]IZ[place] 26 mL/min/1.73m2 Critically low >=60 [facility] Comment on above: Performed By: #### D NATASHA, CMP #### [facility] [address] [place] [address] Dr. Noreen Castro EGFR-NON AF CITIZEN [place] 22 mL/min/1.73m2 Critically low >=60 [facility] Comment on above: Performed By: #### D NATASHA, CMP #### [facility] [address] [place] [address] Dr. Noreen Castro Globulin (S) [Mass/Vol] 3.6 g/dL Normal [facility] Comment on above: Performed By: #### D NATASHA, CMP #### [facility] [address] [place] [address] Dr. Noreen Castro Glucose [Mass/Vol] 89 mg/dL Normal 74-106 [facility] Comment on above: Performed By: #### D NATASHA, CMP #### [facility] [address] [address] [address] Noreen Castro Potassium [Moles/Vol] 5.1 mmol/L Normal 3.5-5.1 [facility] Comment on above: Performed By: #### D NATASHA, CMP #### [facility] [address] [place] [address] Dr. Noreen Castro Protein [Mass/Vol] 7.4 g/dL Normal 6.4-8.2 [facility] Comment on above: Performed By: #### D NATASHA, CMP #### [facility] [address] [place] [address] Dr. Noreen Castro Sodium [Moles/Vol] 137 mmol/L Normal 136-145 [facility] Comment on above: Performed By: #### D NATASHA, CMP #### [facility] [address] [place] [address] Dr. Noreen Castro Urea nitrogen [Mass/Vol] 27.0 mg/dL Critically high 7.0-18.0 [facility] Comment on above: Performed By: #### D NATASHA, CMP #### [facility] [address] [place] [address] Dr. Noreen Castro Urea nitrogen/Creatinin e [Mass ratio] 12.4 mg/mg Normal [facility] Comment on above: Performed By: #### D NATASHA, CMP #### [facility] [address] [place] [address] Dr. Noreen Castro Provider Orderson 08-31-2022 Provider Orders [id number] [facility] C Urineon 08-30-2022 C Urine <10,000 cfu/ml [facility] Comment on above: Performed By: #### [id number] #### [facility] (DEFAULT) [address] [place] [address] 25820 UA Standardon 08-28-2022 Breakpoint UA [facility] Comment on above: Performed By: #### 1 [id number] #### [facility] (DEFAULT) [address] [place] [address] 65154 Color (U) Yellow Normal [facility] Comment on above: Performed By: #### 1 [id number] #### [facility] (DEFAULT) [address] [place] [address] 33383 Glucose (U) [Mass/Vol] Negative Normal [facility] Comment on above: Performed By: #### 1 [id number] #### [facility] (DEFAULT) [address] [place] [address] 12122 Ketones Ql (U) Negative [facility] Comment on above: Performed By: #### 1 [id number] #### [facility] (DEFAULT) [address] [place] [address] 74244 UA Bilirubin Negative [facility] Comment on above: Performed By: #### 1 [id number] #### [facility] (DEFAULT) [address] [place] [address] 48126 UA Blood Negative Normal [facility] Comment on above: Performed By: #### 1 [id number] #### [facility] (DEFAULT) [address] [place] [address] 53857 UA Clarity CLEAR Normal CLEAR [facility] Comment on above: Performed By: #### 1 [id number] #### [facility] (DEFAULT) [address] [place] [address] 52084 UA Leuk Est TRACE Abnormal NEGATIVE [facility] Comment on above: Performed By: #### 1 [id number] #### [facility] (DEFAULT) [address] [place] [address] 05716 UA Nitrite Negative Normal NEGATIVE [facility] Comment on above: Performed By: #### 1 [id number] #### [facility] (DEFAULT) [address] [place] [address] 07942 UA pH 6.0 Normal 5-8 [facility] Comment on above: Performed By: #### 1 [id number] #### [facility] (DEFAULT) [address] [place] [address] 23530 UA Protein TRACE Abnormal NEGATIVE [facility] Comment on above: Performed By: #### 1 [id number] #### [facility] (DEFAULT) [address] [place] [address] 32903 UA Spec Grav 1.020 Normal 1.001-1.035 [facility] Comment on above: Performed By: #### 1 [id number] #### [facility] (DEFAULT) [address] [place] [address] 44503 UA Urobilinogen 0.2 mg/dL Normal 0.2-1.0 [facility] Comment on above: Performed By: #### 1 [id number] #### [facility] (DEFAULT) [address] [place] [address] 06009 Urine Source Clean Catch Normal [facility] Comment on above: Performed By: #### 1 [id number] #### [facility] (DEFAULT) [address] [place] [address] 77860 BILIRUBIN CONJUGATED (DIRECT )on 02-11-2022 BILI, CONJUGATED 0.1 mg/dL Normal 0.0-0.3 [facility] Comment on above: Performed By: #### C MP, DBIL #### [facility] [address] [place] [address] Dr. Noreen Castro CBC AUTO DIFFon 02-11-2022 BASO # 0.1 103/ul Normal 0.0-0.1 [facility] Comment on above: Performed By: #### U A #### [facility] [address] [place] [address] Dr. Noreen Castro Basophils/100 WBC (Bld) 0.6 % Normal 0.2-2.0 [facility] Comment on above: Performed By: #### U A #### [facility] [address] [place] [address] Dr. Noreen Castro EO # 0.2 103/ul Normal 0.0-0.7 [facility] Comment on above: Performed By: #### U A #### [facility] [address] [place] [address] Dr. Noreen Castro Eosinophils/100 WBC (Bld) 1.2 % Normal 0.9-7.0 [facility] Comment on above: Performed By: #### U A #### [facility] [address] [place] [address] Dr. Noreen Castro Erythrocyte distribution width (RBC) [Ratio] 14.4 % Normal 11.0-15.0 [facility] Comment on above: Performed By: #### U A #### [facility] [address] [place] [address] Dr. Noreen Castro Hematocrit (Bld) [Volume fraction] 39.0 % Normal 36.0-48.0 [facility] Comment on above: Performed By: #### U A #### [facility] [address] [place] [address] Dr. Noreen Castro Hemoglobin (Bld) [Mass/Vol] 12.3 g/dL Normal 12.0-16.0 [facility] Comment on above: Performed By: #### U A #### [facility] [address] [place] [address] Dr. Noreen Castro IG # 0.20 10e3/ul Critically high 0.00-0.03 [facility] Comment on above: Performed By: #### U A #### [facility] [address] [place] [address] Dr. Noreen Castro IG % 1.4 % Critically high 0.0-0.5 [facility] Comment on above: Performed By: #### U A #### [facility] [address] [place] [address] Dr. Noreen Castro LYMPH # 4.4 103/ul Critically high 1.2-3.8 [facility] Comment on above: Performed By: #### U A #### [facility] [address] [place] [address] Dr. Noreen Castro Lymphocytes/100 WBC (Bld) 30.4 % Normal 20.5-60.0 [facility] Comment on above: Performed By: #### U A #### [facility] [address] [place] [address] Dr. Noreen Castro MANUAL DIFF REQ NO Normal [facility] Comment on above: Performed By: #### U A #### [facility] [address] [place] [address] Dr. Noreen Castro MCH (RBC) [Entitic mass] 30.8 pg Normal 26.7-34.0 [facility] Comment on above: Performed By: #### U A #### [facility] [address] [address] [address] Noreen Castro MCHC (RBC) [Mass/Vol] 31.5 g/dL Normal 29.9-35.2 [facility] Comment on above: Performed By: #### U A #### [facility] [address] [address] [address] Noreen Castro MCV (RBC) [Entitic vol] 97.5 fL Normal 81.0-99.0 [facility] Comment on above: Performed By: #### U A #### [facility] [address] [address] [address] Noreen Castro MONO # 1.0 103/ul Critically high 0.3-0.8 [facility] Comment on above: Performed By: #### U A #### [facility] [address] [address] [address] Noreen Castro Monocytes/100 WBC (Bld) 6.8 % Normal 1.7-12.0 [facility] Comment on above: Performed By: #### U A #### [facility] [address] [place] [address] Dr. Noreen Castro NEUT # 8.6 103/ul Critically high 1.4-6.5 [facility] Comment on above: Performed By: #### U A #### [facility] [address] [address] [address] Noreen Castro Neutrophils/100 WBC (Bld) 59.6 % Normal 43.0-75.0 [facility] Comment on above: Performed By: #### U A #### [facility] [address] [address] [address] Noreen Castro Platelet mean volume (Bld) [Entitic vol] 9.9 fL Normal 9.5-13.5 [facility] Comment on above: Performed By: #### U A #### [facility] [address] [place] [address] Dr. Noreen Castro PLT 283 103/ul Normal 150-450 [facility] Comment on above: Performed By: #### U A #### [facility] [address] [address] [address] Noreen Castro RBC 4.00 106/ul Critically low 4.20-5.40 [facility] Comment on above: Performed By: #### U A #### [facility] [address] [address] [address] Noreen Castro WBC 14.5 103/ul Critically high 4.0-11.0 [facility] Comment on above: Performed By: #### U A #### [facility] [address] [address] [address] Noreen Castro CULTURE URINEon 02-11-2022 CULTURE [...] Trimethoprim/Sulfamethoxaz ole >=320 R F Normal [facility] Comment on above: Performed By: #### U RCX #### [facility] [address] [address] [address] Noreen Castro DRUG SCREEN RAPID (URINE)on 02-11-2022 AMP Negative Normal NEGATIVE [facility] Comment on above: Performed By: #### U A #### [facility] [address] [address] [address] Noreen Castro BAR Negative Normal NEGATIVE [facility] Comment on above: Performed By: #### U A #### [facility] [address] [address] [address] Noreen Castro BUP Negative Normal NEGATIVE [facility] Comment on above: Performed By: #### U A #### [facility] [address] [place] [address] Dr. Noreen Castro BZO Negative Normal NEGATIVE [facility] Comment on above: Performed By: #### U A #### [facility] [address] [place] [address] Dr. Noreen Castro VERONICA Negative Normal NEGATIVE [facility] Comment on above: Performed By: #### U A #### [facility] [address] [place] [address] Dr. Noreen Castro CUT-OFFS SEE BELOW Normal [facility] Comment on above: Result Comment: [...] ng/mL Performed By: #### U A #### [facility] [address] [place] [address] Dr. Noreen Castro DRUG CUT HEADER DRUG CLASS TEST SYST EM CUT-OFF CONCENTRATIONS ARE FOLLOWS: Normal [facility] Comment on above: Performed By: #### U A #### [facility] [address] [place] [address] Dr. Noreen Castro mAMP Negative Normal NEGATIVE [facility] Comment on above: Performed By: #### U A #### [facility] [address] [place] [address] Dr. Noreen Castro MTD Negative Normal NEGATIVE [facility] Comment on above: Performed By: #### U A #### [facility] [address] [place] [address] Dr. Noreen Castro OPI Negative Normal NEGATIVE [facility] Comment on above: Performed By: #### U A #### [facility] [address] [place] [address] Dr. Noreen Castro OXY Negative Normal NEGATIVE [facility] Comment on above: Performed By: #### U A #### [facility] [address] [place] [address] Dr. Noreen Castro PCP Negative Normal NEGATIVE [facility] Comment on above: Performed By: #### U A #### [facility] [address] [place] [address] Dr. Noreen Castro PPX Negative Normal NEGATIVE [facility] Comment on above: Performed By: #### U A #### [facility] [address] [place] [address] Dr. Noreen Castro TCA Positive Abnormal NEGATIVE [facility] Comment on above: Performed By: #### U A #### [facility] [address] [place] [address] Dr. Noreen Castro THC Negative Normal NEGATIVE [facility] Comment on above: Performed By: #### U A #### [facility] [address] [place] [address] Dr. Noreen Castro PROF 14(COMP METB)on 022 Albumin [Mass/Vol] 3.9 g/dL Normal 3.4-5.0 [facility] Comment on above: Performed By: #### C MP, DBIL #### [facility] [address] [place] [address] Dr. Noreen Castro Albumin/Globulin [Mass ratio] 0.9 {ratio} Normal [facility] Comment on above: Performed By: #### C MP, DBIL #### [facility] [address] [place] [address] Dr. Noreen Castro ALP [Catalytic activity/Vol] 76 U/L Normal 46-116 [facility] Comment on above: Performed By: #### C MP, DBIL #### [facility] [address] [place] [address] Dr. Noreen Castro ALT [Catalytic activity/Vol] 39 U/L Normal 14-59 [facility] Comment on above: Performed By: #### C MP, DBIL #### [facility] [address] [address] [address] Noreen Castro Anion gap [Moles/Vol] 18.4 mmol/L Normal [facility] Comment on above: Performed By: #### C MP, DBIL #### [facility] [address] [place] [address] Dr. Noreen Castro AST [Catalytic activity/Vol] 30 U/L Normal 15-37 [facility] Comment on above: Performed By: #### C MP, DBIL #### [facility] [address] [place] [address] Dr. Noreen Castro Bilirubin [Mass/Vol] 0.4 mg/dL Normal 0.2-1.3 [facility] Comment on above: Performed By: #### C MP, DBIL #### [facility] [address] [place] [address] Dr. Noreen Castro Calcium [Mass/Vol] 9.2 mg/dL Normal 8.5-10.1 [facility] Comment on above: Performed By: #### C MP, DBIL #### [facility] [address] [place] [address] Dr. Noreen Castro Chloride [Moles/Vol] 99 mmol/L Normal 98-107 [facility] Comment on above: Performed By: #### C MP, DBIL #### [facility] [address] [place] [address] Dr. Noreen Castro CO2 [Moles/Vol] 22.2 mmol/L Normal 22.0-30.0 [facility] Comment on above: Performed By: #### C MP, DBIL #### [facility] [address] [place] [address] Dr. Noreen Castro Creatinine [Mass/Vol] 2.72 mg/dL Critically high 0.52-1.04 [facility] Comment on above: Performed By: #### C MP, DBIL #### [facility] [address] [place] [address] Dr. Noreen Castro EGFR-AF [place]IZ[place] 20 mL/min/1.73m2 Critically low >=60 [facility] Comment on above: Performed By: #### C MP, DBIL #### [facility] [address] [address] [address] Noreen Castro EGFR-NON AF CITIZEN OF [place] 17 mL/min/1.73m2 Critically low >=60 [facility] Comment on above: Performed By: #### C MP, DBIL #### [facility] [address] [address] [address] Noreen Castro Globulin (S) [Mass/Vol] 4.3 g/dL Normal [facility] Comment on above: Performed By: #### C MP, DBIL #### [facility] [address] [address] [address] Noreen Castro Glucose [Mass/Vol] 143 mg/dL Critically high 74-106 [facility] Comment on above: Performed By: #### C MP, DBIL #### [facility] [address] [place] [address] Dr. Noreen Castro Potassium [Moles/Vol] 5.6 mmol/L Critically high 3.4-5.0 [facility] Comment on above: Performed By: #### C MP, DBIL #### [facility] [address] [address] [address] Noreen Castro Protein [Mass/Vol] 8.2 g/dL Normal 6.1-8.2 [facility] Comment on above: Performed By: #### C MP, DBIL #### [facility] [address] [address] [address] Noreen Castro Sodium [Moles/Vol] 134 mmol/L Critically low 137-145 [facility] Comment on above: Performed By: #### C MP, DBIL #### [facility] [address] [address] [address] Noreen Castro Urea nitrogen [Mass/Vol] 36.0 mg/dL Critically high 7.0-18.0 [facility] Comment on above: Performed By: #### C MP, DBIL #### [facility] [address] [address] [address] Noreen Castro Urea nitrogen/Creatinin e [Mass ratio] 13.2 mg/mg Normal [facility] Comment on above: Performed By: #### C MP, DBIL #### [facility] [address] [place] [address] Dr. Noreen Castro UA RANDOMon 02-08-2022 Bilirubin Ql (U) Negative Normal NEGATIVE [facility] Comment on above: Performed By: #### U A #### [facility] [address] [place] [address] Dr. Noreen Castro Clarity (U) SL CLOUDY Abnormal CLEAR [facility] Comment on above: Performed By: #### U A #### [facility] [address] [place] [address] Dr. Noreen Castro Color (U) LT. YELLOW Normal YELLOW [facility] Comment on above: Performed By: #### U A #### [facility] [address] [place] [address] Dr. Noreen Castro Glucose Ql (U) Negative Normal NEGATIVE [facility] Comment on above: Performed By: #### U A #### [facility] [address] [place] [address] Dr. Noreen Castro Hemoglobin Ql (U) TRACE-INTACT Abnormal NEGATIVE [facility] Comment on above: Performed By: #### U A #### [facility] [address] [place] [address] Dr. Noreen Castro Ketones Ql (U) Negative Normal NEGATIVE [facility] Comment on above: Performed By: #### U A #### [facility] [address] [place] [address] Dr. Noreen Castro LEUKOCYTES MODERATE Abnormal NEGATIVE [facility] Comment on above: Performed By: #### U A #### [facility] [address] [place] [address] Dr. Noreen Castro Nitrite Ql (U) Positive Abnormal NEGATIVE [facility] Comment on above: Performed By: #### U A #### [facility] [address] [place] [address] Dr. Noreen Castro pH (U) 5.0 [pH] Normal 5-9 [facility] Comment on above: Performed By: #### U A #### [facility] [address] [place] [address] Dr. Noreen Castro SPEC GRAVITY 1.020 Normal 1.005-<=1.02 5 [facility] Comment on above: Performed By: #### U A #### [facility] [address] [place] [address] Dr. Noreen Castro UA PROTEIN TRACE Normal NEGATIVE/ TRACE [facility] Comment on above: Performed By: #### U A #### [facility] [address] [place] [address] Dr. Noreen Castro Urobilinogen Qn (U) 0.2 {Scarlett'U}/dL Normal 0.2 - 1.0 [facility] Comment on above: Performed By: #### U A #### [facility] [address] [place] [address] Dr. Noreen Castro CULTURE URINEon 02-01-2022 CULTURE URINE Culture Observations : No growth Normal [facility] Comment on above: Performed By: #### U RCX #### [facility] [address] [place] [address] Dr. Noreen Castro UA RANDOMon 02-01-2022 Bilirubin Ql (U) Negative Normal NEGATIVE [facility] Comment on above: Performed By: #### U A #### [facility] [address] [place] [address] Dr. Noreen Castro Clarity (U) CLEAR Normal CLEAR [facility] Comment on above: Performed By: #### U A #### [facility] [address] [place] [address] Dr. Noreen Castro Color (U) YELLOW Normal YELLOW [facility] Comment on above: Performed By: #### U A #### [facility] [address] [place] [address] Dr. Noreen Castro Glucose Ql (U) Negative Normal NEGATIVE [facility] Comment on above: Performed By: #### U A #### [facility] [address] [place] [address] Dr. Noreen Castro Hemoglobin Ql (U) SMALL Abnormal NEGATIVE [facility] Comment on above: Performed By: #### U A #### [facility] [address] [place] [address] Dr. Noreen Castro Ketones Ql (U) Negative Normal NEGATIVE [facility] Comment on above: Performed By: #### U A #### [facility] [address] [place] [address] Dr. Noreen Castro LEUKOCYTES Negative Normal NEGATIVE [facility] Comment on above: Performed By: #### U A #### [facility] [address] [address] [address] Noreen Castro Nitrite Ql (U) Negative Normal NEGATIVE [facility] Comment on above: Performed By: #### U A #### [facility] [address] [place] [address] Dr. Noreen Castro pH (U) 5.0 [pH] Normal 5-9 [facility] Comment on above: Performed By: #### U A #### [facility] [address] [place] [address] Dr. Noreen Castro SPEC GRAVITY 1.025 Normal 1.005-<=1.02 5 [facility] Comment on above: Performed By: #### U A #### [facility] [address] [place] [address] Dr. Noreen Castro UA PROTEIN Negative Normal NEGATIVE/ TRACE [facility] Comment on above: Performed By: #### U A #### [facility] [address] [place] [address] Dr. Noreen Castro Urobilinogen Qn (U) 0.2 {Scarlett'U}/dL Normal 0.2 - 1.0 [facility] Comment on above: Performed By: #### U A #### [facility] [address] [place] [address] Dr. Noreen Castro POC GLUCOSE LABon 07-19-2018 Glucose mass conc 97 mg/dL Normal 70-100 [facility] Comment on above: Performed By: #### 0 0121 ####[place] [id number] [address] Glucose mass conc 110 mg/dL High 70-100 [facility] Comment on above: Performed By: #### 0 0121 ####[facility] [place] [address], [facility] Glucose mass conc 93 mg/dL Normal 70-100 [facility] Comment on above: Performed By: #### 0 0121 ####[facility] [place] [address], [facility] Glucose mass conc 92 mg/dL Normal 70-100 [facility] Comment on above: Performed By: #### 0 0121 ####[facility]3000 [facility].[address] CBC COMPLETE BLOOD COUNTon 0 07-18-2018 Erythrocyte distribution width Auto Ratio (RBC) 14.0 % Normal 11.5-15.0 [facility] Comment on above: Order Comment: No: D o not add to previous draw Performed By: #### 0 0121 ####[facility] Hematocrit Auto Volume Fraction (Bld) 32.3 % Low 36.0-45.0 [facility] Comment on above: Order Comment: No: D o not add to previous draw Performed By: #### 0 0121 ####[facility].[address] Hemoglobin mass conc (Bld) 10.1 g/dL Low 12.0-15.0 [facility] Comment on above: Order Comment: No: D o not add to previous draw Performed By: #### 0 0121 ####[facility] [address], [facility] MCH Auto Entitic mass (RBC) 29.6 pg Normal 27.0-33.0 [facility] Comment on above: Order Comment: No: D o not add to previous draw Performed By: #### 0 0121 ####[facility] MCHC Auto mass conc (RBC) 31.3 g/dL Low 32.0-35.0 [facility] Comment on above: Order Comment: No: D o not add to previous draw Performed By: #### 0 0121 ####[facility].[address] MCV Auto Entitic volume (RBC) 94.7 fL Normal 82.0-98.0 [facility] Comment on above: Order Comment: No: D o not add to previous draw Performed By: #### 0 0121 ####[facility] Nucleated RBC/100 WBC Ratio (Bld) 0 % Normal 0-0 [facility] Comment on above: Order Comment: No: D o not add to previous draw Performed By: #### 0 0121 ####[facility] PLAT CNT 372 10*3/uL Normal 150-400 [facility] Comment on above: Order Comment: No: D o not add to previous draw Performed By: #### 0 0121 ####[facility] RBC Auto #/vol (Bld) 3.41 10*6/uL Low 3.80-5.00 [facility] Comment on above: Order Comment: No: D o not add to previous draw Performed By: #### 0 0121 ####[facility]3000 [facility].[address] WBC Auto #/vol (Bld) 8.69 10*3/uL Normal 4.00-10.60 [facility] Comment on above: Order Comment: No: D o not add to previous draw Performed By: #### 0 0121 ####[facility] POC GLUCOSE LABon 07-18-2018 Glucose mass conc 101 mg/dL High 70-100 [facility] Comment on above: Performed By: #### 0 0121 ####[facility] [place] [address], [place] Glucose mass conc 117 mg/dL High 70-100 [facility] Comment on above: Performed By: #### 0 0121 ####[facility] [place] [address], [place] Glucose mass conc 94 mg/dL Normal 70-100 [facility] Comment on above: Performed By: #### 0 0121 ####[facility] [place] [address], [place] Glucose mass conc 92 mg/dL Normal 70-100 [facility] Comment on above: Performed By: #### 0 0121 ####[facility] [place] [address], [place] POC GLUCOSE LABon 07-17-2018 Glucose mass conc 105 mg/dL High 70-100 [facility] Comment on above: Performed By: #### 0 0121 ####[facility] [place] [address], [place] Glucose mass conc 126 mg/dL High 70-100 [facility] Comment on above: Performed By: #### 0 0121 ####[facility] [place] [address], [place] Glucose mass conc 118 mg/dL High 70-100 [facility] Comment on above: Performed By: #### 0 0121 ####[facility] [place] [address], [place] Glucose mass conc 99 mg/dL Normal 70-100 [facility] Comment on above: Performed By: #### 0 0121 ####[facility] [place] [address], [facility] BASIC METABOLIC PANELon 09-0 Calcium mass conc 9.4 mg/dL Normal 8.6-10.3 [facility] Comment on above: Order Comment: No: D o not add to previous draw Performed By: #### 0 0121 ####[facility]3000 [facility] [place] [address], [facility] [place] Chloride molar conc 104 mmol/L Normal 98-107 [facility] Comment on above: Order Comment: No: D o not add to previous draw Performed By: #### 0 0121 ####[facility]3000 [facility] [place] [address], [facility] [place] CO2 molar conc 24 mmol/L Normal 21-31 [facility] Comment on above: Order Comment: No: D o not add to previous draw Performed By: #### 0 0121 ####[facility]3000 [facility] [place] [address], [facility] [place] Creatinine mass conc 1.11 mg/dL Normal 0.60-1.20 [facility] Comment on above: Order Comment: No: D o not add to previous draw Performed By: #### 0 0121 ####[facility]3000 [facility] [place] [address], [facility] [place] GFR/1.73 sq M predicted among blacks MDRD vol rate/area (S/P/Bld) 57 ml/min/1.73sq m Abnormal >60 [facility] Comment on above: Order Comment: No: D o not add to previous draw Result Comment: Calc ulation may not be valid for patients over 70 years Performed By: #### 0 0121 ####[facility]3000 [facility] [place] [address], [facility] GFR/1.73 sq M predicted among non-blacks MDRD vol rate/area (S/P/Bld) 47 ml/min/1.73sq m Abnormal >60 [facility] Comment on above: Order Comment: No: D o not add to previous draw Result Comment: Calc ulation may not be valid for patients over 70 years Performed By: #### 0 0121 ####[facility] Glucose mass conc 104 mg/dL High 70-100 [facility] Comment on above: Order Comment: No: D o not add to previous draw Performed By: #### 0 0121 ####[facility] Potassium molar conc 4.6 mmol/L Normal 3.5-5.1 [facility] Comment on above: Order Comment: No: D o not add to previous draw Performed By: #### 0 0121 ####[facility] Sodium molar conc 135 mmol/L Low 136-145 [facility] Comment on above: Order Comment: No: D o not add to previous draw Performed By: #### 0 0121 ####[facility] Urea nitrogen mass conc 22 mg/dL Normal 7-25 [facility] Comment on above: Order Comment: No: D o not add to previous draw Performed By: #### 0 0121 ####[facility] CBC W/DIFFon 07-16-2018 ABS BASOPHILS 0.1 10*3/uL Normal 0.0-0.2 [facility] Comment on above: Order Comment: No: D o not add to previous draw Performed By: #### 0 0121 ####[facility] ABS IMM GRANS 0.3 10*3/uL High 0.0-0.2 [facility] Comment on above: Order Comment: No: D o not add to previous draw Performed By: #### 0 0121 ####[facility]3000 [facility] [place] [address], [facility] [place] ABS NEUTROPHILS 6.5 10*3/uL Normal 1.6-7.6 [facility] Comment on above: Order Comment: No: D o not add to previous draw Performed By: #### 0 0121 ####[facility] [place] [address], [facility] [place] Basophils Auto #/vol (Bld) 0.6 % Normal 0.0-1.0 [facility] Comment on above: Order Comment: No: D o not add to previous draw Performed By: #### 0 0121 ####[facility]3000 [facility] [place] [address], [facility] [place] Eosinophils Auto #/vol (Bld) 0.3 10*3/uL Normal 0.0-0.5 [facility] Comment on above: Order Comment: No: D o not add to previous draw Performed By: #### 0 0121 ####[facility] [place] [address], [facility] [place] Eosinophils/100 WBC Auto (Bld) 2.5 % Normal 0.0-6.0 [facility] Comment on above: Order Comment: No: D o not add to previous draw Performed By: #### 0 0121 ####[facility] Erythrocyte distribution width Auto Ratio (RBC) 14.4 % Normal 11.5-15.0 [facility] Comment on above: Order Comment: No: D o not add to previous draw Performed By: #### 0 0121 ####[facility] Hematocrit Auto Volume Fraction (Bld) 31.7 % Low 36.0-45.0 [facility] Comment on above: Order Comment: No: D o not add to previous draw Performed By: #### 0 0121 ####[facility] Hemoglobin mass conc (Bld) 10.1 g/dL Low 12.0-15.0 [facility] Comment on above: Order Comment: No: D o not add to previous draw Performed By: #### 0 0121 ####[facility] IMMATURE GRANS 2.8 % High 0.0-1.0 [facility] Comment on above: Order Comment: No: D o not add to previous draw Performed By: #### 0 0121 ####[place] [id number] [address] Lymphocytes Auto #/vol (Bld) 2.4 10*3/uL Normal 1.2-4.0 [facility] Comment on above: Order Comment: No: D o not add to previous draw Performed By: #### 0 0121 ####[facility] Lymphocytes/100 WBC Auto (Bld) 22.1 % Normal 20.0-45.0 [facility] Comment on above: Order Comment: No: D o not add to previous draw Performed By: #### 0 0121 ####[facility] MCH Auto Entitic mass (RBC) 30.3 pg Normal 27.0-33.0 [facility] Comment on above: Order Comment: No: D o not add to previous draw Performed By: #### 0 0121 ####[facility] MCHC Auto mass conc (RBC) 31.9 g/dL Low 32.0-35.0 [facility] Comment on above: Order Comment: No: D o not add to previous draw Performed By: #### 0 0121 ####[facility]3000 [facility].[address] MCV Auto Entitic volume (RBC) 95.2 fL Normal 82.0-98.0 [facility] Comment on above: Order Comment: No: D o not add to previous draw Performed By: #### 0 0121 ####[facility] [place] [address], [facility] [place] Monocytes Auto #/vol (Bld) 1.2 10*3/uL High 0.1-1.0 [facility] Comment on above: Order Comment: No: D o not add to previous draw Performed By: #### 0 0121 ####[address] MONOS 11.0 % Normal 5.0-12.0 [facility] Comment on above: Order Comment: No: D o not add to previous draw Performed By: #### 0 0121 ####[facility]3000 [facility].[address] Neutrophils/100 WBC Auto (Bld) 61.0 % Normal 40.0-72.0 [facility] Comment on above: Order Comment: No: D o not add to previous draw Performed By: #### 0 0121 ####[place] [id number] [facility].[address] Nucleated RBC/100 WBC Ratio (Bld) 0 % Normal 0-0 [facility] Comment on above: Order Comment: No: D o not add to previous draw Performed By: #### 0 0121 ####[facility] [place] [address].[place] [address], [facility] [place] PLAT CNT 450 10*3/uL High 150-400 [facility] Comment on above: Order Comment: No: D o not add to previous draw Performed By: #### 0 0121 ####[facility]3000 [facility] [place] [address], [facility] [place] RBC Auto #/vol (Bld) 3.33 10*6/uL Low 3.80-5.00 [facility] Comment on above: Order Comment: No: D o not add to previous draw Performed By: #### 0 0121 ####[facility] [place] [address], [facility] [place] WBC Auto #/vol (Bld) 10.68 10*3/uL High 4.00-10.60 [facility] Comment on above: Order Comment: No: D o not add to previous draw Performed By: #### 0 0121 ####[facility] [place] [address], [facility] [place] MAGNESIUM BLOODon 07-16-2018 Magnesium mass conc 2.3 mg/dL Normal 1.9-2.7 [facility] Comment on above: Order Comment: No: D o not add to previous draw Performed By: #### 0 0121 ####[facility] [place] [address], [facility] [place] PHOSPHORUS BLOODon 8 Phosphate mass conc 3.6 mg/dL Normal 2.5-5.0 [facility] Comment on above: Order Comment: No: D o not add to previous draw Performed By: #### 0 0121 ####[facility] [place] [address], [facility] [place] POC GLUCOSE LABon 07-16-2018 Glucose mass conc 111 mg/dL High 70-100 [facility] Comment on above: Performed By: #### 0 0121 ####[facility] [address], [facility] [place] Glucose mass conc 159 mg/dL High 70-100 [facility] Comment on above: Performed By: #### 0 0121 ####[facility] [place] [address], [facility] [place] Glucose mass conc 103 mg/dL High 70-100 [facility] Comment on above: Performed By: #### 0 0121 ####[facility] [place] [address], [facility] [place] Glucose mass conc 99 mg/dL Normal 70-100 [facility] Comment on above: Performed By: #### 0 0121 ####[facility] [place] [address], [facility] [place] BASIC METABOLIC PANELon 09-0 Calcium mass conc 8.8 mg/dL Normal 8.6-10.3 [facility] Comment on above: Order Comment: No: D o not add to previous draw Performed By: #### 0 0121 ####[facility] [place] [address], [facility] [place] Chloride molar conc 106 mmol/L Normal 98-107 [facility] Comment on above: Order Comment: No: D o not add to previous draw Performed By: #### 0 0121 ####[facility] [place] [address], [facility] [place] CO2 molar conc 23 mmol/L Normal 21-31 [facility] Comment on above: Order Comment: No: D o not add to previous draw Performed By: #### 0 0121 ####[facility] [place] [address], [facility] [place] Creatinine mass conc 1.01 mg/dL Normal 0.60-1.20 [facility] Comment on above: Order Comment: No: D o not add to previous draw Performed By: #### 0 0121 ####[facility] [place] [address], [facility] [place] GFR/1.73 sq M predicted among blacks MDRD vol rate/area (S/P/Bld) mL/min/{1.73_m2} Normal >60 [facility] Comment on above: Order Comment: No: D o not add to previous draw Result Comment: Calc ulation may not be valid for patients over 70 years Performed By: #### 0 0121 ####[facility]3000 [facility] [place] [address], [facility] [place] GFR/1.73 sq M predicted among non-blacks MDRD vol rate/area (S/P/Bld) 53 ml/min/1.73sq m Abnormal >60 [facility] Comment on above: Order Comment: No: D o not add to previous draw Result Comment: Calc ulation may not be valid for patients over 70 years Performed By: #### 0 0121 ####[facility]3000 [facility].[address] Glucose mass conc 139 mg/dL High 70-100 [facility] Comment on above: Order Comment: No: D o not add to previous draw Performed By: #### 0 0121 ####[facility]3000 [facility].[address] Potassium molar conc 4.1 mmol/L Normal 3.5-5.1 [facility] Comment on above: Order Comment: No: D o not add to previous draw Performed By: #### 0 0121 ####[facility]3000 [facility] [place] [address], [facility] [place] Sodium molar conc 136 mmol/L Normal 136-145 [facility] Comment on above: Order Comment: No: D o not add to previous draw Performed By: #### 0 0121 ####[facility]3000 [facility] [place] [address], [facility] [place] Urea nitrogen mass conc 26 mg/dL High 7-25 [facility] Comment on above: Order Comment: No: D o not add to previous draw Performed By: #### 0 0121 ####[facility]3000 [facility].[address] CBC W/DIFFon 07-15-2018 ABS BASOPHILS 0.0 10*3/uL Normal 0.0-0.2 [facility] Comment on above: Order Comment: No: D o not add to previous draw Performed By: #### 0 0121 ####[facility] ABS IMM GRANS 0.3 10*3/uL High 0.0-0.2 [facility] Comment on above: Order Comment: No: D o not add to previous draw Performed By: #### 0 0121 ####[facility] [place] [address], [facility] [place] ABS NEUTROPHILS 5.7 10*3/uL Normal 1.6-7.6 [facility] Comment on above: Order Comment: No: D o not add to previous draw Performed By: #### 0 0121 ####[facility] Basophils Auto #/vol (Bld) 0.4 % Normal 0.0-1.0 [facility] Comment on above: Order Comment: No: D o not add to previous draw Performed By: #### 0 0121 ####[facility] Eosinophils Auto #/vol (Bld) 0.2 10*3/uL Normal 0.0-0.5 [facility] Comment on above: Order Comment: No: D o not add to previous draw Performed By: #### 0 0121 ####[facility] Eosinophils/100 WBC Auto (Bld) 2.1 % Normal 0.0-6.0 [facility] Comment on above: Order Comment: No: D o not add to previous draw Performed By: #### 0 0121 ####[facility] Erythrocyte distribution width Auto Ratio (RBC) 14.1 % Normal 11.5-15.0 [facility] Comment on above: Order Comment: No: D o not add to previous draw Performed By: #### 0 0121 ####[facility]3000 [facility].[address] Hematocrit Auto Volume Fraction (Bld) 28.7 % Low 36.0-45.0 [facility] Comment on above: Order Comment: No: D o not add to previous draw Performed By: #### 0 0121 ####[facility]3000 [facility].[address] Hemoglobin mass conc (Bld) 9.1 g/dL Low 12.0-15.0 [facility] Comment on above: Order Comment: No: D o not add to previous draw Performed By: #### 0 0121 ####[facility] IMMATURE GRANS 3.4 % High 0.0-1.0 [facility] Comment on above: Order Comment: No: D o not add to previous draw Performed By: #### 0 0121 ####[facility] Lymphocytes Auto #/vol (Bld) 2.6 10*3/uL Normal 1.2-4.0 [facility] Comment on above: Order Comment: No: D o not add to previous draw Performed By: #### 0 0121 ####[facility] Lymphocytes/100 WBC Auto (Bld) 25.8 % Normal 20.0-45.0 [facility] Comment on above: Order Comment: No: D o not add to previous draw Performed By: #### 0 0121 ####[facility] MCH Auto Entitic mass (RBC) 30.4 pg Normal 27.0-33.0 [facility] Comment on above: Order Comment: No: D o not add to previous draw Performed By: #### 0 0121 ####[facility] MCHC Auto mass conc (RBC) 31.7 g/dL Low 32.0-35.0 [facility] Comment on above: Order Comment: No: D o not add to previous draw Performed By: #### 0 0121 ####[facility] [facility] MCV Auto Entitic volume (RBC) 96.0 fL Normal 82.0-98.0 [facility] Comment on above: Order Comment: No: D o not add to previous draw Performed By: #### 0 0121 ####[place] [id number] [facility].[address] Monocytes Auto #/vol (Bld) 1.0 10*3/uL Normal 0.1-1.0 [facility] Comment on above: Order Comment: No: D o not add to previous draw Performed By: #### 0 0121 ####[facility]3000 [facility].[address] MONOS 10.2 % Normal 5.0-12.0 [facility] Comment on above: Order Comment: No: D o not add to previous draw Performed By: #### 0 0121 ####[facility]3000 [facility].[address] Neutrophils/100 WBC Auto (Bld) 58.1 % Normal 40.0-72.0 [facility] Comment on above: Order Comment: No: D o not add to previous draw Performed By: #### 0 0121 ####[facility]3000 [facility].[address] Nucleated RBC/100 WBC Ratio (Bld) 0 % Normal 0-0 [facility] Comment on above: Order Comment: No: D o not add to previous draw Performed By: #### 0 0121 ####[address] [place] [address], [facility] [place] PLAT CNT 447 10*3/uL High 150-400 [facility] Comment on above: Order Comment: No: D o not add to previous draw Performed By: #### 0 0121 ####[facility]3000 [facility] [place] [address], [facility] [place] RBC Auto #/vol (Bld) 2.99 10*6/uL Low 3.80-5.00 [facility] Comment on above: Order Comment: No: D o not add to previous draw Performed By: #### 0 0121 ####[address] [place] [address], [facility] [place] WBC Auto #/vol (Bld) 9.87 10*3/uL Normal 4.00-10.60 [facility] Comment on above: Order Comment: No: D o not add to previous draw Performed By: #### 0 0121 ####[facility]3000 [facility].[address] MAGNESIUM BLOODon 07-15-2018 Magnesium mass conc 1.6 mg/dL Low 1.9-2.7 [facility] Comment on above: Order Comment: No: D o not add to previous draw Performed By: #### 0 0121 ####[place] [id number] [facility].[address] PHOSPHORUS BLOODon 8 Phosphate mass conc 3.2 mg/dL Normal 2.5-5.0 [facility] Comment on above: Order Comment: No: D o not add to previous draw Performed By: #### 0 0121 ####[place] [id number] [facility] [place] [address], [facility] [place] POC GLUCOSE LABon 07-15-2018 Glucose mass conc 109 mg/dL High 70-100 [facility] Comment on above: Performed By: #### 0 0121 ####[facility] [facility] [place] [address], [facility] [place] Glucose mass conc 154 mg/dL High 70-100 [facility] Comment on above: Performed By: #### 0 0121 ####[facility] [id number], [facility] [place] Glucose mass conc 156 mg/dL High 70-100 [facility] Comment on above: Performed By: #### 0 0121 ####[facility] [place] [address], [facility] [place] Glucose mass conc 166 mg/dL High 70-100 [facility] Comment on above: Performed By: #### 0 0121 ####[facility] [facility] [place] [address], [facility] [place] BASIC METABOLIC PANELon 09- Calcium mass conc 9.6 mg/dL Normal 8.6-10.3 [facility] Comment on above: Order Comment: No: D o not add to previous draw Performed By: #### 0 0121 ####[facility] [place] [address], [facility] [place] Chloride molar conc 105 mmol/L Normal 98-107 [facility] Comment on above: Order Comment: No: D o not add to previous draw Performed By: #### 0 0121 ####[facility] [place] [address], [facility] [place] CO2 molar conc 21 mmol/L Normal 21-31 [facility] Comment on above: Order Comment: No: D o not add to previous draw Performed By: #### 0 0121 ####[facility] [place] [address], [facility] [place] Creatinine mass conc 1.16 mg/dL Normal 0.60-1.20 [facility] Comment on above: Order Comment: No: D o not add to previous draw Performed By: #### 0 0121 ####[facility] [place] [address], [facility] [place] GFR/1.73 sq M predicted among blacks MDRD vol rate/area (S/P/Bld) 54 ml/min/1.73sq m Abnormal >60 [facility] Comment on above: Order Comment: No: D o not add to previous draw Result Comment: Calc ulation may not be valid for patients over 70 years Performed By: #### 0 0121 ####[facility] [place] [address], [facility] [place] GFR/1.73 sq M predicted among non-blacks MDRD vol rate/area (S/P/Bld) 45 ml/min/1.73sq m Abnormal >60 [facility] Comment on above: Order Comment: No: D o not add to previous draw Result Comment: Calc ulation may not be valid for patients over 70 years Performed By: #### 0 0121 ####[facility] [place] [address], [facility] [place] Glucose mass conc 172 mg/dL High 70-100 [facility] Comment on above: Order Comment: No: D o not add to previous draw Performed By: #### 0 0121 ####[facility] [place] [address], [facility] [place] Potassium molar conc 4.9 mmol/L Normal 3.5-5.1 [facility] Comment on above: Order Comment: No: D o not add to previous draw Performed By: #### 0 0121 ####[facility] [place] [address], [facility] [place] Sodium molar conc 132 mmol/L Low 136-145 [facility] Comment on above: Order Comment: No: D o not add to previous draw Performed By: #### 0 0121 ####[facility] [place] [address], [facility] [place] Urea nitrogen mass conc 28 mg/dL High 7-25 [facility] Comment on above: Order Comment: No: D o not add to previous draw Performed By: #### 0 0121 ####[facility] CBC W/DIFFon 07-14-2018 ABS BASOPHILS 0.1 10*3/uL Normal 0.0-0.2 [facility] Comment on above: Order Comment: No: D o not add to previous draw Performed By: #### 0 0121 ####[facility] ABS NEUTROPHILS 9.2 10*3/uL High 1.6-7.6 [facility] Comment on above: Order Comment: No: D o not add to previous draw Performed By: #### 0 0121 ####[facility] Basophils Auto #/vol (Bld) 0.9 % Normal 0.0-1.0 [facility] Comment on above: Order Comment: No: D o not add to previous draw Performed By: #### 0 0121 ####[facility] Eosinophils Auto #/vol (Bld) 0.4 10*3/uL Normal 0.0-0.5 [facility] Comment on above: Order Comment: No: D o not add to previous draw Performed By: #### 0 0121 ####[facility] Eosinophils/100 WBC Auto (Bld) 2.7 % Normal 0.0-6.0 [facility] Comment on above: Order Comment: No: D o not add to previous draw Performed By: #### 0 0121 ####[facility] Erythrocyte distribution width Auto Ratio (RBC) 14.4 % Normal 11.5-15.0 [facility] Comment on above: Order Comment: No: D o not add to previous draw Performed By: #### 0 0121 ####[facility] Hematocrit Auto Volume Fraction (Bld) 30.8 % Low 36.0-45.0 [facility] Comment on above: Order Comment: No: D o not add to previous draw Performed By: #### 0 0121 ####[facility] Hemoglobin mass conc (Bld) 9.7 g/dL Low 12.0-15.0 [facility] Comment on above: Order Comment: No: D o not add to previous draw Performed By: #### 0 0121 ####[address] Lymphocytes Auto #/vol (Bld) 2.5 10*3/uL Normal 1.2-4.0 [facility] Comment on above: Order Comment: No: D o not add to previous draw Performed By: #### 0 0121 ####[address] Lymphocytes/100 WBC Auto (Bld) 18.2 % Low 20.0-45.0 [facility] Comment on above: Order Comment: No: D o not add to previous draw Performed By: #### 0 0121 ####[facility] [place] [address] MCH Auto Entitic mass (RBC) 30.6 pg Normal 27.0-33.0 [facility] Comment on above: Order Comment: No: D o not add to previous draw Performed By: #### 0 0121 ####[address] MCHC Auto mass conc (RBC) 31.5 g/dL Low 32.0-35.0 [facility] Comment on above: Order Comment: No: D o not add to previous draw Performed By: #### 0 0121 ####[facility] MCV Auto Entitic volume (RBC) 97.2 fL Normal 82.0-98.0 [facility] Comment on above: Order Comment: No: D o not add to previous draw Performed By: #### 0 0121 ####[facility] [place] [address], [facility] [place] Monocytes Auto #/vol (Bld) 1.3 10*3/uL High 0.1-1.0 [facility] Comment on above: Order Comment: No: D o not add to previous draw Performed By: #### 0 0121 ####[facility] MONOS 10.0 % Normal 5.0-12.0 [facility] Comment on above: Order Comment: No: D o not add to previous draw Performed By: #### 0 0121 ####[facility] Neutrophils/100 WBC Auto (Bld) 68.2 % Normal 40.0-72.0 [facility] Comment on above: Order Comment: No: D o not add to previous draw Performed By: #### 0 0121 ####[facility] NRBC SCAN Present Normal [facility] Comment on above: Order Comment: No: D o not add to previous draw Performed By: #### 0 0121 ####[facility] Nucleated RBC/100 WBC Ratio (Bld) 0 % Normal 0-0 [facility] Comment on above: Order Comment: No: D o not add to previous draw Performed By: #### 0 0121 ####[facility] PLAT CNT 509 10*3/uL High 150-400 [facility] Comment on above: Order Comment: No: D o not add to previous draw Performed By: #### 0 0121 ####[facility] [facility].[address] RBC Auto #/vol (Bld) 3.17 10*6/uL Low 3.80-5.00 [facility] Comment on above: Order Comment: No: D o not add to previous draw Performed By: #### 0 0121 ####[address] WBC Auto #/vol (Bld) 13.48 10*3/uL High 4.00-10.60 [facility] Comment on above: Order Comment: No: D o not add to previous draw Performed By: #### 0 0121 ####[facility] MAGNESIUM BLOODon 07-14-2018 Magnesium mass conc 2.2 mg/dL Normal 1.9-2.7 [facility] Comment on above: Order Comment: No: D o not add to previous draw Performed By: #### 0 0121 ####[place] [id number] [facility].[address] PHOSPHORUS BLOODon 8 Phosphate mass conc 3.8 mg/dL Normal 2.5-5.0 [facility] Comment on above: Order Comment: No: D o not add to previous draw Performed By: #### 0 0121 ####[place] [id number] [facility].[address] POC GLUCOSE LABon 07-14-2018 Glucose mass conc 169 mg/dL High 70-100 [facility] Comment on above: Performed By: #### 0 0121 ####[facility] [place] [address].[place] [address], [facility] [place] Glucose mass conc 188 mg/dL High 70-100 [facility] Comment on above: Performed By: #### 0 0121 ####[facility] [place] [address], [facility] [place] Glucose mass conc 187 mg/dL High 70-100 [facility] Comment on above: Performed By: #### 0 0121 ####[facility] [place] [address], [facility] [place] Glucose mass conc 123 mg/dL High 70-100 [facility] Comment on above: Performed By: #### 0 0121 ####[facility] [place] [address], [facility] [place] BASIC METABOLIC PANELon 09 Calcium mass conc 9.2 mg/dL Normal 8.6-10.3 [facility] Comment on above: Order Comment: No: D o not add to previous draw Performed By: #### 0 0121 ####[facility] [place] [address], [facility] [place] Chloride molar conc 104 mmol/L Normal 98-107 [facility] Comment on above: Order Comment: No: D o not add to previous draw Performed By: #### 0 0121 ####[facility] [place] [address], [facility] [place] CO2 molar conc 22 mmol/L Normal 21-31 [facility] Comment on above: Order Comment: No: D o not add to previous draw Performed By: #### 0 0121 ####[facility] [place] [address], [facility] [place] Creatinine mass conc 1.30 mg/dL High 0.60-1.20 [facility] Comment on above: Order Comment: No: D o not add to previous draw Performed By: #### 0 0121 ####[facility] [place] [address], [facility] [place] GFR/1.73 sq M predicted among blacks MDRD vol rate/area (S/P/Bld) 47 ml/min/1.73sq m Abnormal >60 [facility] Comment on above: Order Comment: No: D o not add to previous draw Result Comment: Calc ulation may not be valid for patients over 70 years Performed By: #### 0 0121 ####[facility] [place] [address], [facility] [place] GFR/1.73 sq M predicted among non-blacks MDRD vol rate/area (S/P/Bld) 39 ml/min/1.73sq m Abnormal >60 [facility] Comment on above: Order Comment: No: D o not add to previous draw Result Comment: Calc ulation may not be valid for patients over 70 years Performed By: #### 0 0121 ####[facility] [facility] [place] [address], [facility] [place] Glucose mass conc 160 mg/dL High 70-100 [facility] Comment on above: Order Comment: No: D o not add to previous draw Performed By: #### 0 0121 ####[facility] [facility] [place] [address], [facility] [place] Potassium molar conc 4.7 mmol/L Normal 3.5-5.1 [facility] Comment on above: Order Comment: No: D o not add to previous draw Performed By: #### 0 0121 ####[facility] [place] [address], [facility] [place] Sodium molar conc 133 mmol/L Low 136-145 [facility] Comment on above: Order Comment: No: D o not add to previous draw Performed By: #### 0 0121 ####[facility] [place] [address], [facility] [place] Urea nitrogen mass conc 32 mg/dL High 7-25 [facility] Comment on above: Order Comment: No: D o not add to previous draw Performed By: #### 0 0121 ####[facility] CBC W/DIFFon 07-13-2018 ABS BASOPHILS 0.1 10*3/uL Normal 0.0-0.2 [facility] Comment on above: Order Comment: No: D o not add to previous draw Performed By: #### 0 0121 ####[facility] ABS NEUTROPHILS 7.1 10*3/uL Normal 1.6-7.6 [facility] Comment on above: Order Comment: No: D o not add to previous draw Performed By: #### 0 0121 ####[facility] Basophils Auto #/vol (Bld) 1.0 % Normal 0.0-1.0 [facility] Comment on above: Order Comment: No: D o not add to previous draw Performed By: #### 0 0121 ####[facility] Eosinophils Auto #/vol (Bld) 0.1 10*3/uL Normal 0.0-0.5 [facility] Comment on above: Order Comment: No: D o not add to previous draw Performed By: #### 0 0121 ####[facility] Eosinophils/100 WBC Auto (Bld) 1.0 % Normal 0.0-6.0 [facility] Comment on above: Order Comment: No: D o not add to previous draw Performed By: #### 0 0121 ####[facility] Erythrocyte distribution width Auto Ratio (RBC) 14.4 % Normal 11.5-15.0 [facility] Comment on above: Order Comment: No: D o not add to previous draw Performed By: #### 0 0121 ####[facility] Hematocrit Auto Volume Fraction (Bld) 30.2 % Low 36.0-45.0 [facility] Comment on above: Order Comment: No: D o not add to previous draw Performed By: #### 0 0121 ####[facility] Hemoglobin mass conc (Bld) 9.3 g/dL Low 12.0-15.0 [facility] Comment on above: Order Comment: No: D o not add to previous draw Performed By: #### 0 0121 ####[address] Lymphocytes Auto #/vol (Bld) 2.7 10*3/uL Normal 1.2-4.0 [facility] Comment on above: Order Comment: No: D o not add to previous draw Performed By: #### 0 0121 ####[address] Lymphocytes/100 WBC Auto (Bld) 23.3 % Normal 20.0-45.0 [facility] Comment on above: Order Comment: No: D o not add to previous draw Performed By: #### 0 0121 ####[facility] [place] [address] MCH Auto Entitic mass (RBC) 30.3 pg Normal 27.0-33.0 [facility] Comment on above: Order Comment: No: D o not add to previous draw Performed By: #### 0 0121 ####[address] MCHC Auto mass conc (RBC) 30.8 g/dL Low 32.0-35.0 [facility] Comment on above: Order Comment: No: D o not add to previous draw Performed By: #### 0 0121 ####[facility] [facility].[address] MCV Auto Entitic volume (RBC) 98.4 fL High 82.0-98.0 [facility] Comment on above: Order Comment: No: D o not add to previous draw Performed By: #### 0 0121 ####[facility] [facility] METAMYELO 1.9 % High 0.0-0.0 [facility] Comment on above: Order Comment: No: D o not add to previous draw Performed By: #### 0 0121 ####[facility] Monocytes Auto #/vol (Bld) 1.0 10*3/uL Normal 0.1-1.0 [facility] Comment on above: Order Comment: No: D o not add to previous draw Performed By: #### 0 0121 ####[facility] MONOS 8.7 % Normal 5.0-12.0 [facility] Comment on above: Order Comment: No: D o not add to previous draw Performed By: #### 0 0121 ####[facility] MYELOS 3.9 % High .0-.0 [facility] Comment on above: Order Comment: No: D o not add to previous draw Performed By: #### 0 0121 ####[facility] Neutrophils/100 WBC Auto (Bld) 60.2 % Normal 40.0-72.0 [facility] Comment on above: Order Comment: No: D o not add to previous draw Performed By: #### 0 0121 ####[facility] Nucleated RBC/100 WBC Ratio (Bld) 0 % Normal 0-0 [facility] Comment on above: Order Comment: No: D o not add to previous draw Performed By: #### 0 0121 ####[facility] [facility] [place] [address], [facility] [place] PLAT CNT 435 10*3/uL High 150-400 [facility] Comment on above: Order Comment: No: D o not add to previous draw Performed By: #### 0 0121 ####[address] RBC Auto #/vol (Bld) 3.07 10*6/uL Low 3.80-5.00 [facility] Comment on above: Order Comment: No: D o not add to previous draw Performed By: #### 0 0121 ####[facility] [facility].[address] WBC Auto #/vol (Bld) 11.73 10*3/uL High 4.00-10.60 [facility] Comment on above: Order Comment: No: D o not add to previous draw Performed By: #### 0 0121 ####[place] [id number] [address] MAGNESIUM BLOODon 07-13-2018 Magnesium mass conc 1.8 mg/dL Low 1.9-2.7 [facility] Comment on above: Order Comment: No: D o not add to previous draw Performed By: #### 0 0121 ####[facility] [place] [address], [facility] [place] PHOSPHORUS BLOODon 8 Phosphate mass conc 3.8 mg/dL Normal 2.5-5.0 [facility] Comment on above: Order Comment: No: D o not add to previous draw Performed By: #### 0 0121 ####[facility] [address], [facility] [place] POC GLUCOSE LABon 07-13-2018 Glucose mass conc 147 mg/dL High 70-100 [facility] Comment on above: Performed By: #### 0 0121 ####[facility] [place] [address], [place] Glucose mass conc 188 mg/dL High 70-100 [facility] Comment on above: Performed By: #### 0 0121 ####[facility] [place] [address], [place] Glucose mass conc 150 mg/dL High 70-100 [facility] Comment on above: Performed By: #### 0 0121 ####[facility] [place] [address], [facility] [place] Glucose mass conc 139 mg/dL High 70-100 [facility] Comment on above: Performed By: #### 0 0121 ####[facility] [facility] [place] [address], [facility] [place] BASIC METABOLIC PANELon Calcium mass conc 9.7 mg/dL Normal 8.6-10.3 [facility] Comment on above: Order Comment: No: D o not add to previous draw Performed By: #### 0 0121 ####[facility] [place] [address], [facility] [place] Chloride molar conc 103 mmol/L Normal 98-107 [facility] Comment on above: Order Comment: No: D o not add to previous draw Performed By: #### 0 0121 ####[facility] [place] [address], [facility] [place] CO2 molar conc 18 mmol/L Low 21-31 [facility] Comment on above: Order Comment: No: D o not add to previous draw Performed By: #### 0 0121 ####[facility] [place] [address], [facility] [place] Creatinine mass conc 1.33 mg/dL High 0.60-1.20 [facility] Comment on above: Order Comment: No: D o not add to previous draw Performed By: #### 0 0121 ####[facility] [place] [address], [facility] [place] GFR/1.73 sq M predicted among blacks MDRD vol rate/area (S/P/Bld) 47 ml/min/1.73sq m Abnormal >60 [facility] Comment on above: Order Comment: No: D o not add to previous draw Result Comment: Calc ulation may not be valid for patients over 70 years Performed By: #### 0 0121 ####[facility] [place] [address], [facility] [place] GFR/1.73 sq M predicted among non-blacks MDRD vol rate/area (S/P/Bld) 39 ml/min/1.73sq m Abnormal >60 [facility] Comment on above: Order Comment: No: D o not add to previous draw Result Comment: Calc ulation may not be valid for patients over 70 years Performed By: #### 0 0121 ####[facility] [place] [address], [facility] [place] Glucose mass conc 133 mg/dL High 70-100 [facility] Comment on above: Order Comment: No: D o not add to previous draw Performed By: #### 0 0121 ####[facility] [place] [address], [facility] [place] Potassium molar conc 5.2 mmol/L High 3.5-5.1 [facility] Comment on above: Order Comment: No: D o not add to previous draw Performed By: #### 0 0121 ####[facility] [place] [address], [facility] [place] Sodium molar conc 131 mmol/L Low 136-145 [facility] Comment on above: Order Comment: No: D o not add to previous draw Performed By: #### 0 0121 ####[facility]3000 [facility].[address] Urea nitrogen mass conc 31 mg/dL High 7-25 [facility] Comment on above: Order Comment: No: D o not add to previous draw Performed By: #### 0 0121 ####[facility] [facility].[address] CBC W/DIFFon 07-12-2018 ABS BASOPHILS 0.1 10*3/uL Normal 0.0-0.2 [facility] Comment on above: Order Comment: No: D o not add to previous draw Performed By: #### 0 0121 ####[facility] ABS IMM GRANS 1.2 10*3/uL High 0.0-0.2 [facility] Comment on above: Order Comment: No: D o not add to previous draw Performed By: #### 0 0121 ####[facility] ABS NEUTROPHILS 7.2 10*3/uL Normal 1.6-7.6 [facility] Comment on above: Order Comment: No: D o not add to previous draw Performed By: #### 0 0121 ####[facility] Basophils Auto #/vol (Bld) 0.5 % Normal 0.0-1.0 [facility] Comment on above: Order Comment: No: D o not add to previous draw Performed By: #### 0 0121 ####[facility] Eosinophils Auto #/vol (Bld) 0.3 10*3/uL Normal 0.0-0.5 [facility] Comment on above: Order Comment: No: D o not add to previous draw Performed By: #### 0 0121 ####[facility]3000 [facility].[address] Eosinophils/100 WBC Auto (Bld) 2.3 % Normal 0.0-6.0 [facility] Comment on above: Order Comment: No: D o not add to previous draw Performed By: #### 0 0121 ####[facility]3000 [facility].[address] Erythrocyte distribution width Auto Ratio (RBC) 14.2 % Normal 11.5-15.0 [facility] Comment on above: Order Comment: No: D o not add to previous draw Performed By: #### 0 0121 ####[facility] Hematocrit Auto Volume Fraction (Bld) 36.0 % Normal 36.0-45.0 [facility] Comment on above: Order Comment: No: D o not add to previous draw Performed By: #### 0 0121 ####[facility] Hemoglobin mass conc (Bld) 11.2 g/dL Low 12.0-15.0 [facility] Comment on above: Order Comment: No: D o not add to previous draw Performed By: #### 0 0121 ####[facility]3000 [facility].[address] IMM PLATELET FRAC 2.2 % Normal 0.8-6.3 [facility] Comment on above: Order Comment: No: D o not add to previous draw Performed By: #### 0 0121 ####[facility] IMMATURE GRANS 9.1 % High 0.0-1.0 [facility] Comment on above: Order Comment: No: D o not add to previous draw Performed By: #### 0 0121 ####[facility] Lymphocytes Auto #/vol (Bld) 3.0 10*3/uL Normal 1.2-4.0 [facility] Comment on above: Order Comment: No: D o not add to previous draw Performed By: #### 0 0121 ####[facility] Lymphocytes/100 WBC Auto (Bld) 22.3 % Normal 20.0-45.0 [facility] Comment on above: Order Comment: No: D o not add to previous draw Performed By: #### 0 0121 ####[facility] MCH Auto Entitic mass (RBC) 30.9 pg Normal 27.0-33.0 [facility] Comment on above: Order Comment: No: D o not add to previous draw Performed By: #### 0 0121 ####[facility] MCHC Auto mass conc (RBC) 31.1 g/dL Low 32.0-35.0 [facility] Comment on above: Order Comment: No: D o not add to previous draw Performed By: #### 0 0121 ####[facility] MCV Auto Entitic volume (RBC) 99.4 fL High 82.0-98.0 [facility] Comment on above: Order Comment: No: D o not add to previous draw Performed By: #### 0 0121 ####[facility] [place] [address] Monocytes Auto #/vol (Bld) 1.5 10*3/uL High 0.1-1.0 [facility] Comment on above: Order Comment: No: D o not add to previous draw Performed By: #### 0 0121 ####[facility] [id number], [facility] MONOS 11.3 % Normal 5.0-12.0 [facility] Comment on above: Order Comment: No: D o not add to previous draw Performed By: #### 0 0121 ####[facility] [place] [address], [facility] [place] Neutrophils/100 WBC Auto (Bld) 54.5 % Normal 40.0-72.0 [facility] Comment on above: Order Comment: No: D o not add to previous draw Performed By: #### 0 0121 ####[facility] [place] [address], [facility] [place] Nucleated RBC/100 WBC Ratio (Bld) 0 % Normal 0-0 [facility] Comment on above: Order Comment: No: D o not add to previous draw Performed By: #### 0 0121 ####[facility] [place] [address], [facility] [place] PLAT CNT 425 10*3/uL High 150-400 [facility] Comment on above: Order Comment: No: D o not add to previous draw Performed By: #### 0 0121 ####[facility] [place] [address], [facility] RBC Auto #/vol (Bld) 3.62 10*6/uL Low 3.80-5.00 [facility] Comment on above: Order Comment: No: D o not add to previous draw Performed By: #### 0 0121 ####[facility] [place] [address], [facility] [place] WBC Auto #/vol (Bld) 13.29 10*3/uL High 4.00-10.60 [facility] Comment on above: Order Comment: No: D o not add to previous draw Performed By: #### 0 0121 ####[facility]3000 [facility] [place] [address], [facility] [place] MAGNESIUM BLOODon 07-12-2018 Magnesium mass conc 2.1 mg/dL Normal 1.9-2.7 [facility] Comment on above: Order Comment: No: D o not add to previous draw Performed By: #### 0 0121 ####[address] [place] [address], [facility] [place] PHOSPHORUS BLOODon 8 Phosphate mass conc 4.6 mg/dL Normal 2.5-5.0 [facility] Comment on above: Order Comment: No: D o not add to previous draw Performed By: #### 0 0121 ####[address] POC GLUCOSE LABon 07-12-2018 Glucose mass conc 145 mg/dL High 70-100 [facility] Comment on above: Performed By: #### 0 0121 ####[address] Glucose mass conc 184 mg/dL High 70-100 [facility] Comment on above: Performed By: #### 0 0121 ####[address] Glucose mass conc 134 mg/dL High 70-100 [facility] Comment on above: Performed By: #### 0 0121 ####[address] Glucose mass conc 168 mg/dL High 70-100 [facility] Comment on above: Performed By: #### 0 0121 ####[address] [place] [address], [facility] [place] ABDOMEN SERIES W CHESTon ABDOMEN SERIES W CHEST [facility] [id number] [place] [id number] Stacy ent Name: VIDHYA GIORDANO : 1940Sex: FAge: Race: WhiteMRN: [id number]. Location: [id number] Status: IVisit #: [id number] Date: 07/11/2018 11:25:00 AMCompleted Date: 07/11/2018 01:43 PMRequesting Provider: ROSIBEL PERRY Attending Provider: MEG ABEBE Report Copy To: Signs & Symptoms: Post OPHistory: Patient history not availableComments: R/O ObstructionExam: ABDOMEN SERIES W CHESTAccession #: [id number] ===ABDOMEN SERIES W CHEST 07/11/2018 1:43 PM [...] obstruction. Electronically signed by:Nora Sethi. Transcribed by: [email or web address], User Resident: Electronically Signed by: NORA SETHI @ 07/12/2018 07:26 AM Normal [facility] Comment on above: Order Comment: R/O O bstruction BASIC METABOLIC PANELon 0 Calcium mass conc 10.2 mg/dL Normal 8.6-10.3 [facility] Comment on above: Order Comment: No: D o not add to previous draw Performed By: #### 0 0121 ####[facility] [place] [address], [facility] [place] Chloride molar conc 102 mmol/L Normal 98-107 [facility] Comment on above: Order Comment: No: D o not add to previous draw Performed By: #### 0 0121 ####[facility] [place] [address], [facility] [place] CO2 molar conc 21 mmol/L Normal 21-31 [facility] Comment on above: Order Comment: No: D o not add to previous draw Performed By: #### 0 0121 ####[facility] [place] [address], [facility] [place] Creatinine mass conc 1.30 mg/dL High 0.60-1.20 [facility] Comment on above: Order Comment: No: D o not add to previous draw Performed By: #### 0 0121 ####[facility] [place] [address], [facility] [place] GFR/1.73 sq M predicted among blacks MDRD vol rate/area (S/P/Bld) 47 ml/min/1.73sq m Abnormal >60 [facility] Comment on above: Order Comment: No: D o not add to previous draw Result Comment: Calc ulation may not be valid for patients over 70 years Performed By: #### 0 0121 ####[facility] [place] [address], [facility] [place] GFR/1.73 sq M predicted among non-blacks MDRD vol rate/area (S/P/Bld) 39 ml/min/1.73sq m Abnormal >60 [facility] Comment on above: Order Comment: No: D o not add to previous draw Result Comment: Calc ulation may not be valid for patients over 70 years Performed By: #### 0 0121 ####[facility]3000 [facility].[address] Glucose mass conc 162 mg/dL High 70-100 [facility] Comment on above: Order Comment: No: D o not add to previous draw Performed By: #### 0 0121 ####[facility]3000 [facility].[address] Potassium molar conc 5.6 mmol/L High 3.5-5.1 [facility] Comment on above: Order Comment: No: D o not add to previous draw Performed By: #### 0 0121 ####[facility]3000 [facility].[address] Sodium molar conc 132 mmol/L Low 136-145 [facility] Comment on above: Order Comment: No: D o not add to previous draw Performed By: #### 0 0121 ####[facility] Urea nitrogen mass conc 29 mg/dL High 7-25 [facility] Comment on above: Order Comment: No: D o not add to previous draw Performed By: #### 0 0121 ####[facility] CBC COMPLETE BLOOD COUNTon 0 07-11-2018 Erythrocyte distribution width Auto Ratio (RBC) 14.1 % Normal 11.5-15.0 [facility] Comment on above: Order Comment: This order is a replacement of the rejected order with accession [id number]. Performed By: #### 0 0121 ####[facility] Hematocrit Auto Volume Fraction (Bld) 33.4 % Low 36.0-45.0 [facility] Comment on above: Order Comment: This order is a replacement of the rejected order with accession [id number]. Performed By: #### 0 0121 ####[facility] Hemoglobin mass conc (Bld) 10.5 g/dL Low 12.0-15.0 [facility] Comment on above: Order Comment: This order is a replacement of the rejected order with accession [id number]. Performed By: #### 0 0121 ####[facility] MCH Auto Entitic mass (RBC) 30.3 pg Normal 27.0-33.0 [facility] Comment on above: Order Comment: This order is a replacement of the rejected order with accession [id number]. Performed By: #### 0 0121 ####[place] [address] [address] MCHC Auto mass conc (RBC) 31.4 g/dL Low 32.0-35.0 [facility] Comment on above: Order Comment: This order is a replacement of the rejected order with accession [id number]. Performed By: #### 0 0121 ####[place] [address] [address] MCV Auto Entitic volume (RBC) 96.5 fL Normal 82.0-98.0 [facility] Comment on above: Order Comment: This order is a replacement of the rejected order with accession [id number]. Performed By: #### 0 0121 ####[facility] Nucleated RBC/100 WBC Ratio (Bld) 0 % Normal 0-0 [facility] Comment on above: Order Comment: This order is a replacement of the rejected order with accession [id number]. Performed By: #### 0 0121 ####[place] [address] [address] PLAT CNT 527 10*3/uL High 150-400 [facility] Comment on above: Order Comment: This order is a replacement of the rejected order with accession [id number]. Performed By: #### 0 0121 ####[facility] RBC Auto #/vol (Bld) 3.46 10*6/uL Low 3.80-5.00 [facility] Comment on above: Order Comment: This order is a replacement of the rejected order with accession [id number]. Performed By: #### 0 0121 ####[facility]3000 [facility] WBC Auto #/vol (Bld) 15.56 10*3/uL High 4.00-10.60 [facility] Comment on above: Order Comment: This order is a replacement of the rejected order with accession [id number]. Performed By: #### 0 0121 ####[facility] MAGNESIUM BLOODon 07-11-2018 Magnesium mass conc 1.7 mg/dL Low 1.9-2.7 [facility] Comment on above: Order Comment: No: D o not add to previous draw Performed By: #### 0 0121 ####[facility]3000 [facility].[address] PHOSPHORUS BLOODon 8 Phosphate mass conc 4.6 mg/dL Normal 2.5-5.0 [facility] Comment on above: Order Comment: No: D o not add to previous draw Performed By: #### 0 0121 ####[facility]3000 [facility].[address] POC GLUCOSE LABon 07-11-2018 Glucose mass conc 158 mg/dL High 70-100 [facility] Comment on above: Performed By: #### 0 0121 ####[facility]3000 [facility].[address] Glucose mass conc 204 mg/dL High 70-100 [facility] Comment on above: Performed By: #### 0 0121 ####[facility] [place] [address], [facility] [place] Glucose mass conc 186 mg/dL High 70-100 [facility] Comment on above: Performed By: #### 0 0121 ####[facility]3000 [facility].[address] *BLOOD CULTUREon 07-10-2018 Bacteria identified in Blood by Culture Clinical Report: (D) Specimen: BLOOD CULTURE Collected: 07/10/2018 11:19 Status: Final Last Updated: 07/16/2018 06:46 CULT RES (Final) No Growth Day 5 Normal [facility] Comment on above: Performed By: #### 0 0121 ####[place] [address] [facility].[address] BASIC METABOLIC PANELon Calcium mass conc 9.9 mg/dL Normal 8.6-10.3 [facility] Comment on above: Order Comment: No: D o not add to previous draw Performed By: #### 0 0121 ####[place] [address] [facility] [place] [address], [facility] [place] Chloride molar conc 101 mmol/L Normal 98-107 [facility] Comment on above: Order Comment: No: D o not add to previous draw Performed By: #### 0 0121 ####[facility]3000 [facility] [place] [address], [facility] CO2 molar conc 22 mmol/L Normal 21-31 [facility] Comment on above: Order Comment: No: D o not add to previous draw Performed By: #### 0 0121 ####[facility] [place] [address], [facility] [place] Creatinine mass conc 1.18 mg/dL Normal 0.60-1.20 [facility] Comment on above: Order Comment: No: D o not add to previous draw Performed By: #### 0 0121 ####[facility] [address], [facility] GFR/1.73 sq M predicted among blacks MDRD vol rate/area (S/P/Bld) 53 ml/min/1.73sq m Abnormal >60 [facility] Comment on above: Order Comment: No: D o not add to previous draw Result Comment: Calc ulation may not be valid for patients over 70 years Performed By: #### 0 0121 ####[facility] [place] [address], [facility] [place] GFR/1.73 sq M predicted among non-blacks MDRD vol rate/area (S/P/Bld) 45 ml/min/1.73sq m Abnormal >60 [facility] Comment on above: Order Comment: No: D o not add to previous draw Result Comment: Calc ulation may not be valid for patients over 70 years Performed By: #### 0 0121 ####[facility] [place] [address], [facility] [place] Glucose mass conc 212 mg/dL High 70-100 [facility] Comment on above: Order Comment: No: D o not add to previous draw Performed By: #### 0 0121 ####[facility] [place] [address], [facility] [place] Potassium molar conc 5.1 mmol/L Normal 3.5-5.1 [facility] Comment on above: Order Comment: No: D o not add to previous draw Performed By: #### 0 0121 ####[facility] [place] [address], [facility] [place] Sodium molar conc 132 mmol/L Low 136-145 [facility] Comment on above: Order Comment: No: D o not add to previous draw Performed By: #### 0 0121 ####[facility] Urea nitrogen mass conc 28 mg/dL High 7-25 [facility] Comment on above: Order Comment: No: D o not add to previous draw Performed By: #### 0 0121 ####[facility] CBC W/DIFFon 07-10-2018 ABS BASOPHILS 0.2 10*3/uL Normal 0.0-0.2 [facility] Comment on above: Order Comment: No: D o not add to previous draw Performed By: #### 0 0121 ####[facility] ABS IMM GRANS 2.1 10*3/uL High 0.0-0.2 [facility] Comment on above: Order Comment: No: D o not add to previous draw Performed By: #### 0 0121 ####[facility] ABS NEUTROPHILS 13.5 10*3/uL High 1.6-7.6 [facility] Comment on above: Order Comment: No: D o not add to previous draw Performed By: #### 0 0121 ####[facility] Basophils Auto #/vol (Bld) 1.0 % Normal 0.0-1.0 [facility] Comment on above: Order Comment: No: D o not add to previous draw Performed By: #### 0 0121 ####[facility] Eosinophils Auto #/vol (Bld) 0.2 10*3/uL Normal 0.0-0.5 [facility] Comment on above: Order Comment: No: D o not add to previous draw Performed By: #### 0 0121 ####[facility] Eosinophils/100 WBC Auto (Bld) 1.0 % Normal 0.0-6.0 [facility] Comment on above: Order Comment: No: D o not add to previous draw Performed By: #### 0 0121 ####[facility] [facility] Erythrocyte distribution width Auto Ratio (RBC) 13.9 % Normal 11.5-15.0 [facility] Comment on above: Order Comment: No: D o not add to previous draw Performed By: #### 0 0121 ####[facility]3000 [facility].[address] Hematocrit Auto Volume Fraction (Bld) 32.3 % Low 36.0-45.0 [facility] Comment on above: Order Comment: No: D o not add to previous draw Performed By: #### 0 0121 ####[facility]3000 [facility].[address] Hemoglobin mass conc (Bld) 10.4 g/dL Low 12.0-15.0 [facility] Comment on above: Order Comment: No: D o not add to previous draw Performed By: #### 0 0121 ####[facility] Lymphocytes Auto #/vol (Bld) 2.8 10*3/uL Normal 1.2-4.0 [facility] Comment on above: Order Comment: No: D o not add to previous draw Performed By: #### 0 0121 ####[facility]3000 [facility] [place] [address], [facility] [place] Lymphocytes/100 WBC Auto (Bld) 15.0 % Low 20.0-45.0 [facility] Comment on above: Order Comment: No: D o not add to previous draw Performed By: #### 0 0121 ####[facility]3000 [facility] [place] [address], [facility] MCH Auto Entitic mass (RBC) 30.6 pg Normal 27.0-33.0 [facility] Comment on above: Order Comment: No: D o not add to previous draw Performed By: #### 0 0121 ####[facility]3000 [facility].[address] MCHC Auto mass conc (RBC) 32.2 g/dL Normal 32.0-35.0 [facility] Comment on above: Order Comment: No: D o not add to previous draw Performed By: #### 0 0121 ####[facility]3000 [facility].[address] MCV Auto Entitic volume (RBC) 95.0 fL Normal 82.0-98.0 [facility] Comment on above: Order Comment: No: D o not add to previous draw Performed By: #### 0 0121 ####[facility]3000 [facility].[address] METAMYELO 4.0 % High 0.0-0.0 [facility] Comment on above: Order Comment: No: D o not add to previous draw Performed By: #### 0 0121 ####[facility]3000 [facility].[address] Monocytes Auto #/vol (Bld) 0.9 10*3/uL Normal 0.1-1.0 [facility] Comment on above: Order Comment: No: D o not add to previous draw Performed By: #### 0 0121 ####[facility]3000 [facility].[address] MONOS 5.0 % Normal 5.0-12.0 [facility] Comment on above: Order Comment: No: D o not add to previous draw Performed By: #### 0 0121 ####[facility] MYELOS 2.0 % High .0-.0 [facility] Comment on above: Order Comment: No: D o not add to previous draw Performed By: #### 0 0121 ####[facility] [place] [address], [facility] Neutrophils/100 WBC Auto (Bld) 72.0 % Normal 40.0-72.0 [facility] Comment on above: Order Comment: No: D o not add to previous draw Performed By: #### 0 0121 ####[facility]3000 [facility].[address] Nucleated RBC/100 WBC Ratio (Bld) 0 % Normal 0-0 [facility] Comment on above: Order Comment: No: D o not add to previous draw Performed By: #### 0 0121 ####[address] PLAT CNT 530 10*3/uL High 150-400 [facility] Comment on above: Order Comment: No: D o not add to previous draw Performed By: #### 0 0121 ####[address] RBC Auto #/vol (Bld) 3.40 10*6/uL Low 3.80-5.00 [facility] Comment on above: Order Comment: No: D o not add to previous draw Performed By: #### 0 0121 ####[facility] [place] [address].[place] [address], [facility] WBC Auto #/vol (Bld) 18.70 10*3/uL High 4.00-10.60 [facility] Comment on above: Order Comment: No: D o not add to previous draw Performed By: #### 0 0121 ####[address] ABDOMEN AND PELVIS WO CON TRASTon 07-10-2018 CT ABDOMEN AND PELVIS WO CONTRAST [facility] [address] [place] [address] Stacy ent Name: VIDHYA GIORDANO : 1940Sex: FAge: Race: WhiteMRN: [id number]. Location: [id number] Status: IVisit #: [id number] Date: 07/10/2018 11:10:00 AMCompleted Date: 07/10/2018 02:44 PMRequesting Provider: MEG ABEBE Attending Provider: MEG ABEBE Report Copy To: Signs & Symptoms: AbscessHistory: Patient history not availableComments: Other, leukocytosis. need oral contrastExam: CT ABDOMEN AND PELVIS WO CONTRASTAccession #: [id number] ===CT ABDOMEN AND PELVIS WO CONTRAST 07/10/2018 [...] findings. Electronically signed by:Rhoda Nicole. Transcribed by: [email or web address], User Resident: WU TURNERElectronically Signed by: RHODA NICOLE @ 07/12/2018 10:55 AMI personally read this/these film(s) with this resident Normal [facility] Comment on above: Order Comment: Other , leukocytosis. need oral contrast MAGNESIUM BLOODon 07-10-2018 Magnesium mass conc 1.8 mg/dL Low 1.9-2.7 [facility] Comment on above: Order Comment: No: D o not add to previous draw Performed By: #### 0 0121 ####[facility] [place] [address], [place] PHOSPHORUS BLOODon 8 Phosphate mass conc 4.4 mg/dL Normal 2.5-5.0 [facility] Comment on above: Order Comment: No: D o not add to previous draw Performed By: #### 0 0121 ####[facility] [place] [address], [place] POC GLUCOSE LABon 07-10-2018 Glucose mass conc 183 mg/dL High 70-100 [facility] Comment on above: Performed By: #### 0 0121 ####[facility] [place] [address], [place] Glucose mass conc 195 mg/dL High 70-100 [facility] Comment on above: Performed By: #### 0 0121 ####[facility] [place] [address], [place] Glucose mass conc 246 mg/dL High 70-100 [facility] Comment on above: Performed By: #### 0 0121 ####[facility] [place] [address], [place] Glucose mass conc 187 mg/dL High 70-100 [facility] Comment on above: Performed By: #### 0 0121 ####[facility] [place] [address], [place] *BLOOD CULTUREon 07-09-2018 Bacteria identified in Blood by Culture Clinical Report: (D) Specimen: BLOOD CULTURE Collected: 07/09/2018 17:53 Status: Final Last Updated: 07/15/2018 07:43 CULT RES (Final) No Growth Day 5 Normal [facility] Comment on above: Performed By: #### 0 0121 ####[facility] [place] [address], [facility] BASIC METABOLIC PANELon 09-0 Calcium mass conc 9.2 mg/dL Normal 8.6-10.3 [facility] Comment on above: Order Comment: No: D o not add to previous draw Performed By: #### 0 0121 ####[facility] [place] [address], [facility] [place] Chloride molar conc 102 mmol/L Normal 98-107 [facility] Comment on above: Order Comment: No: D o not add to previous draw Performed By: #### 0 0121 ####[facility] [place] [address], [facility] CO2 molar conc 25 mmol/L Normal 21-31 [facility] Comment on above: Order Comment: No: D o not add to previous draw Performed By: #### 0 0121 ####[facility] [place] [address], [facility] [place] Creatinine mass conc 0.95 mg/dL Normal 0.60-1.20 [facility] Comment on above: Order Comment: No: D o not add to previous draw Performed By: #### 0 0121 ####[facility] [place] [address], [facility] [place] GFR/1.73 sq M predicted among blacks MDRD vol rate/area (S/P/Bld) mL/min/{1.73_m2} Normal >60 [facility] Comment on above: Order Comment: No: D o not add to previous draw Result Comment: Calc ulation may not be valid for patients over 70 years Performed By: #### 0 0121 ####[facility] GFR/1.73 sq M predicted among non-blacks MDRD vol rate/area (S/P/Bld) 56 ml/min/1.73sq m Abnormal >60 [facility] Comment on above: Order Comment: No: D o not add to previous draw Result Comment: Calc ulation may not be valid for patients over 70 years Performed By: #### 0 0121 ####[place] [address] [facility].[address] Glucose mass conc 178 mg/dL High 70-100 [facility] Comment on above: Order Comment: No: D o not add to previous draw Performed By: #### 0 0121 ####[address] Potassium molar conc 4.5 mmol/L Normal 3.5-5.1 [facility] Comment on above: Order Comment: No: D o not add to previous draw Performed By: #### 0 0121 ####[place] [address] [address] Sodium molar conc 131 mmol/L Low 136-145 [facility] Comment on above: Order Comment: No: D o not add to previous draw Performed By: #### 0 0121 ####[address] Urea nitrogen mass conc 28 mg/dL High 7-25 [facility] Comment on above: Order Comment: No: D o not add to previous draw Performed By: #### 0 0121 ####[address] CBC W/DIFFon 07-09-2018 ABS BASOPHILS 0.0 10*3/uL Normal 0.0-0.2 [facility] Comment on above: Order Comment: No: D o not add to previous draw Performed By: #### 0 0121 ####[address] ABS NEUTROPHILS 12.4 10*3/uL High 1.6-7.6 [facility] Comment on above: Order Comment: No: D o not add to previous draw Performed By: #### 0 0121 ####[facility] [place] [address], [facility] Basophils Auto #/vol (Bld) 0.0 % Normal 0.0-1.0 [facility] Comment on above: Order Comment: No: D o not add to previous draw Performed By: #### 0 0121 ####[facility] [facility] [place] [address], [facility] [place] Eosinophils Auto #/vol (Bld) 0.3 10*3/uL Normal 0.0-0.5 [facility] Comment on above: Order Comment: No: D o not add to previous draw Performed By: #### 0 0121 ####[facility] [facility].[address] Eosinophils/100 WBC Auto (Bld) 1.8 % Normal 0.0-6.0 [facility] Comment on above: Order Comment: No: D o not add to previous draw Performed By: #### 0 0121 ####[facility] [facility].[address] Erythrocyte distribution width Auto Ratio (RBC) 14.0 % Normal 11.5-15.0 [facility] Comment on above: Order Comment: No: D o not add to previous draw Performed By: #### 0 0121 ####[place] [address] [address] GIANT PLATELETS Present Normal [facility] Comment on above: Order Comment: No: D o not add to previous draw Performed By: #### 0 0121 ####[facility] Hematocrit Auto Volume Fraction (Bld) 30.0 % Low 36.0-45.0 [facility] Comment on above: Order Comment: No: D o not add to previous draw Performed By: #### 0 0121 ####[facility] Hemoglobin mass conc (Bld) 9.6 g/dL Low 12.0-15.0 [facility] Comment on above: Order Comment: No: D o not add to previous draw Performed By: #### 0 0121 ####[facility] Lymphocytes Auto #/vol (Bld) 3.1 10*3/uL Normal 1.2-4.0 [facility] Comment on above: Order Comment: No: D o not add to previous draw Performed By: #### 0 0121 ####[facility] Lymphocytes/100 WBC Auto (Bld) 17.4 % Low 20.0-45.0 [facility] Comment on above: Order Comment: No: D o not add to previous draw Performed By: #### 0 0121 ####[facility] MCH Auto Entitic mass (RBC) 30.6 pg Normal 27.0-33.0 [facility] Comment on above: Order Comment: No: D o not add to previous draw Performed By: #### 0 0121 ####[facility] MCHC Auto mass conc (RBC) 32.0 g/dL Normal 32.0-35.0 [facility] Comment on above: Order Comment: No: D o not add to previous draw Performed By: #### 0 0121 ####[facility] [place] [address], [facility] MCV Auto Entitic volume (RBC) 95.5 fL Normal 82.0-98.0 [facility] Comment on above: Order Comment: No: D o not add to previous draw Performed By: #### 0 0121 ####[facility] [place] [address], [facility] [place] METAMYELO 1.8 % High 0.0-0.0 [facility] Comment on above: Order Comment: No: D o not add to previous draw Performed By: #### 0 0121 ####[facility] [place] [address], [facility] [place] Monocytes Auto #/vol (Bld) 1.3 10*3/uL High 0.1-1.0 [facility] Comment on above: Order Comment: No: D o not add to previous draw Performed By: #### 0 0121 ####[facility] [place] [address], [facility] MONOS 7.4 % Normal 5.0-12.0 [facility] Comment on above: Order Comment: No: D o not add to previous draw Performed By: #### 0 0121 ####[facility] [facility].[address] MYELOS 0.9 % High .0-.0 [facility] Comment on above: Order Comment: No: D o not add to previous draw Performed By: #### 0 0121 ####[facility] [place] [address], [facility] [place] Neutrophils/100 WBC Auto (Bld) 70.7 % Normal 40.0-72.0 [facility] Comment on above: Order Comment: No: D o not add to previous draw Performed By: #### 0 0121 ####[facility] [place] [address], [facility] NRBC SCAN Present Normal [facility] Comment on above: Order Comment: No: D o not add to previous draw Performed By: #### 0 0121 ####[facility] [facility].[address] Nucleated RBC/100 WBC Ratio (Bld) 0 % Normal 0-0 [facility] Comment on above: Order Comment: No: D o not add to previous draw Performed By: #### 0 0121 ####[facility] [facility] [place] [address], [facility] PLAT CNT 430 10*3/uL High 150-400 [facility] Comment on above: Order Comment: No: D o not add to previous draw Performed By: #### 0 0121 ####[place] [address] [address] RBC Auto #/vol (Bld) 3.14 10*6/uL Low 3.80-5.00 [facility] Comment on above: Order Comment: No: D o not add to previous draw Performed By: #### 0 0121 ####[facility] [facility].[address] WBC Auto #/vol (Bld) 17.58 10*3/uL High 4.00-10.60 [facility] Comment on above: Order Comment: No: D o not add to previous draw Performed By: #### 0 0121 ####[facility] [facility].[address] MAGNESIUM BLOODon 07-09-2018 Magnesium mass conc 1.8 mg/dL Low 1.9-2.7 [facility] Comment on above: Order Comment: No: D o not add to previous draw Performed By: #### 0 0121 ####[address] PHOSPHORUS BLOODon 8 Phosphate mass conc 4.1 mg/dL Normal 2.5-5.0 [facility] Comment on above: Order Comment: No: D o not add to previous draw Performed By: #### 0 0121 ####[facility] [place] [address], [facility] POC GLUCOSE LABon 07-09-2018 Glucose mass conc 172 mg/dL High 70-100 [facility] Comment on above: Performed By: #### 0 0121 ####[facility] [place] [address], [facility] [place] Glucose mass conc 179 mg/dL High 70-100 [facility] Comment on above: Performed By: #### 0 0121 ####[place] [address] [place] [address], [facility] [place] Glucose mass conc 168 mg/dL High 70-100 [facility] Comment on above: Performed By: #### 0 0121 ####[place] [address], [facility] Glucose mass conc 147 mg/dL High 70-100 [facility] Comment on above: Performed By: #### 0 0121 ####[place] [address], [facility] PORTABLE CHEST 1 VIEWon PORTABLE CHEST 1 VIEW [facility] [place] [id number] Stacy ent Name: VIDHYA GIORDANO : 1940Sex: FAge: Race: WhiteMRN: [id number]. Location: [id number] Status: IVisit #: [id number] Date: 07/09/2018 5:25:00 PMCompleted Date: 07/09/2018 06:13 PMRequesting Provider: MARLIN DELGADO Attending Provider: MEG ABEBE Report Copy To: Signs & Symptoms: Elevated WBCHistory: Patient history not availableComments: R/O PneumoniaExam: PORTABLE CHEST 1 VIEWAccession #: [id number] ===PORTABLE CHEST 1 VIEW 07/09/2018 6:13 PM [...] findings. Electronically signed by:Rhoda Nicole. Transcribed by: [email or web address], User Resident: WU TURNERElectronically Signed by: RHODA NICOLE @ 07/10/2018 12:40 PMI personally read this/these film(s) with this resident Normal [facility] Comment on above: Order Comment: R/O P neumonia URINALYSIS REFLEXon 07-09-20 18 APPEARANCE CLEAR Normal CLEAR [facility] Comment on above: Order Comment: No: D o not add to previous drawCriteria for reflexing a culture was not met. Please call the lab [id number] within 24 hours of collection time if culture is needed Performed By: #### 0 0121 ####[facility] [place] [address], [place] BILIRUBIN Negative Normal NEGATIVE [facility] Comment on above: Order Comment: No: D o not add to previous drawCriteria for reflexing a culture was not met. Please call the lab [id number] within 24 hours of collection time if culture is needed Performed By: #### 0 0121 ####[facility] [place] [address], [place] BLOOD Negative Normal NEGATIVE [facility] Comment on above: Order Comment: No: D o not add to previous drawCriteria for reflexing a culture was not met. Please call the lab [id number] within 24 hours of collection time if culture is needed Performed By: #### 0 0121 ####[facility] [place] [address], [place] COLOR YELLOW Normal YELLOW [facility] Comment on above: Order Comment: No: D o not add to previous drawCriteria for reflexing a culture was not met. Please call the lab [id number] within 24 hours of collection time if culture is needed Performed By: #### 0 0121 ####[facility] [place] [address], [place] GLUCOSE Negative Normal NEGATIVE [facility] Comment on above: Order Comment: No: D o not add to previous drawCriteria for reflexing a culture was not met. Please call the lab [id number] within 24 hours of collection time if culture is needed Performed By: #### 0 0121 ####[facility] [place] [address], [place] KETONE Negative Normal NEGATIVE [facility] Comment on above: Order Comment: No: D o not add to previous drawCriteria for reflexing a culture was not met. Please call the lab [phone] within 24 hours of collection time if culture is needed Performed By: #### 0 0121 ####[facility] [address], [place] LE[place] GA Negative Normal NEGATIVE [facility] Comment on above: Order Comment: No: D o not add to previous drawCriteria for reflexing a culture was not met. Please call the lab [phone] within 24 hours of collection time if culture is needed Performed By: #### 0 0121 ####[facility] [facility] [place] [address], [facility] MICRO NOT DONE negative chemical reactions unless requested in original order Normal [facility] Comment on above: Order Comment: No: D o not add to previous drawCriteria for reflexing a culture was not met. Please call the lab [id number] within 24 hours of collection time if culture is needed Performed By: #### 0 0121 ####[facility] [facility] [place] [address], [facility] NITRITE Negative Normal NEGATIVE [facility] Comment on above: Order Comment: No: D o not add to previous drawCriteria for reflexing a culture was not met. Please call the lab [id number] within 24 hours of collection time if culture is needed Performed By: #### 0 0121 ####[facility] [facility] [place] [address], [facility] PH 5.0 Normal 5.0-8.0 [facility] Comment on above: Order Comment: No: D o not add to previous drawCriteria for reflexing a culture was not met. Please call the lab [phone] within 24 hours of collection time if culture is needed Performed By: #### 0 0121 ####[facility] [facility] [place] [address], [facility] Protein mass conc Negative Normal NEGATIVE [facility] Comment on above: Order Comment: No: D o not add to previous drawCriteria for reflexing a culture was not met. Please call the lab [phone] within 24 hours of collection time if culture is needed Performed By: #### 0 0121 ####[facility] [facility] [place] [address], [facility] SPEC GRAV 1.009 Low 1.015-1.020 [facility] Comment on above: Order Comment: No: D o not add to previous drawCriteria for reflexing a culture was not met. Please call the lab [id number] within 24 hours of collection time if culture is needed Performed By: #### 0 0121 ####[facility] [facility] [place] [address], [facility] [place] BASIC METABOLIC PANELon 08-3 Calcium mass conc 9.2 mg/dL Normal 8.6-10.3 [facility] Comment on above: Order Comment: No: D o not add to previous drawNo collection time noted on specimen or requisition. The collection timerecorded is the time of receipt in the lab. Performed By: #### 1 0070, [id number], [id number] ####[facility] [facility] [place] [address], [facility] Chloride molar conc 100 mmol/L Normal 98-107 [facility] Comment on above: Order Comment: No: D o not add to previous drawNo collection time noted on specimen or requisition. The collection timerecorded is the time of receipt in the lab. Performed By: #### 1 0070, [id number], [id number] ####[facility] [facility] [place] [address], [facility] CO2 molar conc 26 mmol/L Normal 21-31 [facility] Comment on above: Order Comment: No: D o not add to previous drawNo collection time noted on specimen or requisition. The collection timerecorded is the time of receipt in the lab. Performed By: #### 1 0070, [id number], [id number] ####[facility] [facility] [place] [address], [facility] [place] Creatinine mass conc 0.92 mg/dL Normal 0.60-1.20 [facility] Comment on above: Order Comment: No: D o not add to previous drawNo collection time noted on specimen or requisition. The collection timerecorded is the time of receipt in the lab. Performed By: #### 1 0070, 28669, [id number] ####[facility] [facility] [place] [address], [facility] [place] GFR/1.73 sq M predicted among blacks MDRD vol rate/area (S/P/Bld) mL/min/{1.73_m2} Normal >60 [facility] Comment on above: Order Comment: No: D o not add to previous drawNo collection time noted on specimen or requisition. The collection timerecorded is the time of receipt in the lab. Result Comment: Calc ulation may not be valid for patients over 70 years Performed By: #### 1 0070, [id number], [id number] ####[facility] [facility] [place] [address], [facility] [place] GFR/1.73 sq M predicted among non-blacks MDRD vol rate/area (S/P/Bld) 59 ml/min/1.73sq m Abnormal >60 [facility] Comment on above: Order Comment: No: D o not add to previous drawNo collection time noted on specimen or requisition. The collection timerecorded is the time of receipt in the lab. Result Comment: Calc ulation may not be valid for patients over 70 years Performed By: #### 1 0070, [id number], [id number] ####[facility] [facility] [place] [address], [facility] Glucose mass conc 391 mg/dL High 70-100 [facility] Comment on above: Order Comment: No: D o not add to previous drawNo collection time noted on specimen or requisition. The collection timerecorded is the time of receipt in the lab. Performed By: #### 1 0070, 08341, [id number] ####[facility] [facility] [place] [address], [facility] [place] Potassium molar conc 5.1 mmol/L Normal 3.5-5.1 [facility] Comment on above: Order Comment: No: D o not add to previous drawNo collection time noted on specimen or requisition. The collection timerecorded is the time of receipt in the lab. Performed By: #### 1 0, 52565, 74309 ####[facility] Sodium molar conc 130 mmol/L Low 136-145 [facility] Comment on above: Order Comment: No: D o not add to previous drawNo collection time noted on specimen or requisition. The collection timerecorded is the time of receipt in the lab. Performed By: #### 1 0, , [id number] ####[facility] Urea nitrogen mass conc 24 mg/dL Normal 7-25 [facility] Comment on above: Order Comment: No: D o not add to previous drawNo collection time noted on specimen or requisition. The collection timerecorded is the time of receipt in the lab. Performed By: #### 1 0, , [id number] ####[facility] CBC W/DIFFon 07-08-2018 ABS BASOPHILS 0.5 10*3/uL High 0.0-0.2 [facility] Comment on above: Order Comment: No: D o not add to previous drawNo collection time noted on specimen or requisition. The collection timerecorded is the time of receipt in the lab. Performed By: #### 1 0, , 47384 ####[facility] ABS NEUTROPHILS 12.1 10*3/uL High 1.6-7.6 [facility] Comment on above: Order Comment: No: D o not add to previous drawNo collection time noted on specimen or requisition. The collection timerecorded is the time of receipt in the lab. Performed By: #### 1 0, 90414, 30793 ####[facility] Basophils Auto #/vol (Bld) 2.8 % High 0.0-1.0 [facility] Comment on above: Order Comment: No: D o not add to previous drawNo collection time noted on specimen or requisition. The collection timerecorded is the time of receipt in the lab. Performed By: #### 1 0070, 46121, 98253 ####[facility] Eosinophils Auto #/vol (Bld) 0.1 10*3/uL Normal 0.0-0.5 [facility] Comment on above: Order Comment: No: D o not add to previous drawNo collection time noted on specimen or requisition. The collection timerecorded is the time of receipt in the lab. Performed By: #### 1 0070, 47177, 86198 ####[facility] Eosinophils/100 WBC Auto (Bld) 0.9 % Normal 0.0-6.0 [facility] Comment on above: Order Comment: No: D o not add to previous drawNo collection time noted on specimen or requisition. The collection timerecorded is the time of receipt in the lab. Performed By: #### 1 0, 24587, 26069 ####[facility] Erythrocyte distribution width Auto Ratio (RBC) 13.7 % Normal 11.5-15.0 [facility] Comment on above: Order Comment: No: D o not add to previous drawNo collection time noted on specimen or requisition. The collection timerecorded is the time of receipt in the lab. Performed By: #### 1 0070, 44173, 84451 ####[facility] Hematocrit Auto Volume Fraction (Bld) 30.4 % Low 36.0-45.0 [facility] Comment on above: Order Comment: No: D o not add to previous drawNo collection time noted on specimen or requisition. The collection timerecorded is the time of receipt in the lab. Performed By: #### 1 0, , 44142 ####[facility] Hemoglobin mass conc (Bld) 9.7 g/dL Low 12.0-15.0 [facility] Comment on above: Order Comment: No: D o not add to previous drawNo collection time noted on specimen or requisition. The collection timerecorded is the time of receipt in the lab. Performed By: #### 1 0, , 73380 ####[place] [address] [address] Lymphocytes Auto #/vol (Bld) 1.5 10*3/uL Normal 1.2-4.0 [facility] Comment on above: Order Comment: No: D o not add to previous drawNo collection time noted on specimen or requisition. The collection timerecorded is the time of receipt in the lab. Performed By: #### 1 0, , 38757 ####[address] Lymphocytes/100 WBC Auto (Bld) 9.2 % Low 20.0-45.0 [facility] Comment on above: Order Comment: No: D o not add to previous drawNo collection time noted on specimen or requisition. The collection timerecorded is the time of receipt in the lab. Performed By: #### 1 0, , 17627 ####[facility] MCH Auto Entitic mass (RBC) 30.7 pg Normal 27.0-33.0 [facility] Comment on above: Order Comment: No: D o not add to previous drawNo collection time noted on specimen or requisition. The collection timerecorded is the time of receipt in the lab. Performed By: #### 1 0, 62225, 79882 ####[facility] MCHC Auto mass conc (RBC) 31.9 g/dL Low 32.0-35.0 [facility] Comment on above: Order Comment: No: D o not add to previous drawNo collection time noted on specimen or requisition. The collection timerecorded is the time of receipt in the lab. Performed By: #### 1 0, 45555, 65560 ####[address] MCV Auto Entitic volume (RBC) 96.2 fL Normal 82.0-98.0 [facility] Comment on above: Order Comment: No: D o not add to previous drawNo collection time noted on specimen or requisition. The collection timerecorded is the time of receipt in the lab. Performed By: #### 1 0, , 69725 ####[address] Monocytes Auto #/vol (Bld) 1.9 10*3/uL High 0.1-1.0 [facility] Comment on above: Order Comment: No: D o not add to previous drawNo collection time noted on specimen or requisition. The collection timerecorded is the time of receipt in the lab. Performed By: #### 1 0, , 54265 ####[address] MONOS 11.9 % Normal 5.0-12.0 [facility] Comment on above: Order Comment: No: D o not add to previous drawNo collection time noted on specimen or requisition. The collection timerecorded is the time of receipt in the lab. Performed By: #### 1 0, 87003, 78288 ####[address] Neutrophils/100 WBC Auto (Bld) 75.2 % High 40.0-72.0 [facility] Comment on above: Order Comment: No: D o not add to previous drawNo collection time noted on specimen or requisition. The collection timerecorded is the time of receipt in the lab. Performed By: #### 1 0070, 99063, 26603 ####[facility] Nucleated RBC/100 WBC Ratio (Bld) 0 % Normal 0-0 [facility] Comment on above: Order Comment: No: D o not add to previous drawNo collection time noted on specimen or requisition. The collection timerecorded is the time of receipt in the lab. Performed By: #### 1 0070, 38571, 13141 ####[facility] PLAT CNT 354 10*3/uL Normal 150-400 [facility] Comment on above: Order Comment: No: D o not add to previous drawNo collection time noted on specimen or requisition. The collection timerecorded is the time of receipt in the lab. Performed By: #### 1 0, 70638, 00167 ####[facility] RBC Auto #/vol (Bld) 3.16 10*6/uL Low 3.80-5.00 [facility] Comment on above: Order Comment: No: D o not add to previous drawNo collection time noted on specimen or requisition. The collection timerecorded is the time of receipt in the lab. Performed By: #### 1 0070, 99846, 85351 ####[facility]3000 [facility].[address] WBC Auto #/vol (Bld) 16.12 10*3/uL High 4.00-10.60 [facility] Comment on above: Order Comment: No: D o not add to previous drawNo collection time noted on specimen or requisition. The collection timerecorded is the time of receipt in the lab. Performed By: #### 1 0070, 97470, 13907 ####[facility] [place] [address], [facility] [place] MAGNESIUM BLOODon 07-08-2018 Magnesium mass conc 2.3 mg/dL Normal 1.9-2.7 [facility] Comment on above: Order Comment: No: D o not add to previous drawNo collection time noted on specimen or requisition. The collection timerecorded is the time of receipt in the lab. Performed By: #### 1 0070, 38525, 50917 ####[facility] [place] [address], [facility] [place] PHOSPHORUS BLOODon 8 Phosphate mass conc 4.7 mg/dL Normal 2.5-5.0 [facility] Comment on above: Order Comment: No: D o not add to previous drawNo collection time noted on specimen or requisition. The collection timerecorded is the time of receipt in the lab. Performed By: #### 1 0, 92690, 90817 ####[facility] [place] [address], [facility] [place] POC GLUCOSE LABon 07-08-2018 Glucose mass conc 115 mg/dL High 70-100 [facility] Comment on above: Performed By: #### 0 0121 ####[facility] [place] [address], [facility] [place] Glucose mass conc 183 mg/dL High 70-100 [facility] Comment on above: Performed By: #### 0 0121 ####[facility] [place] [address], [facility] [place] BASIC METABOLIC PANELon 06-10 Calcium mass conc 9.5 mg/dL Normal 8.6-10.3 [facility] Comment on above: Order Comment: No: D o not add to previous drawNo collection time noted on specimen or requisition. The collection timerecorded is the time of receipt in the lab. Performed By: #### 1 0070, 33491, 63610 ####[facility] [facility] [place] [address], [facility] [place] Chloride molar conc 99 mmol/L Normal 98-107 [facility] Comment on above: Order Comment: No: D o not add to previous drawNo collection time noted on specimen or requisition. The collection timerecorded is the time of receipt in the lab. Performed By: #### 1 0070, 91334, 81739 ####[facility] [facility] [place] [address], [facility] [place] CO2 molar conc 24 mmol/L Normal 21-31 [facility] Comment on above: Order Comment: No: D o not add to previous drawNo collection time noted on specimen or requisition. The collection timerecorded is the time of receipt in the lab. Performed By: #### 1 0070, 98836, 50602 ####[address] [place] [address], [facility] [place] Creatinine mass conc 0.90 mg/dL Normal 0.60-1.20 [facility] Comment on above: Order Comment: No: D o not add to previous drawNo collection time noted on specimen or requisition. The collection timerecorded is the time of receipt in the lab. Performed By: #### 1 0070, 53998, 63508 ####[facility] [facility] [place] [address], [facility] [place] GFR/1.73 sq M predicted among blacks MDRD vol rate/area (S/P/Bld) mL/min/{1.73_m2} Normal >60 [facility] Comment on above: Order Comment: No: D o not add to previous drawNo collection time noted on specimen or requisition. The collection timerecorded is the time of receipt in the lab. Result Comment: Calc ulation may not be valid for patients over 70 years Performed By: #### 1 0070, 66681, 56154 ####[facility] [facility] [place] [address], [facility] [place] GFR/1.73 sq M predicted among non-blacks MDRD vol rate/area (S/P/Bld) mL/min/{1.73_m2} Normal >60 [facility] Comment on above: Order Comment: No: D o not add to previous drawNo collection time noted on specimen or requisition. The collection timerecorded is the time of receipt in the lab. Result Comment: Calc ulation may not be valid for patients over 70 years Performed By: #### 1 0070, 93775, 45881 ####[facility] [facility] [place] [address], [facility] [place] Glucose mass conc 207 mg/dL High 70-100 [facility] Comment on above: Order Comment: No: D o not add to previous drawNo collection time noted on specimen or requisition. The collection timerecorded is the time of receipt in the lab. Performed By: #### 1 0070, 21807, 37539 ####[facility] [facility] [place] [address], [facility] [place] Potassium molar conc 4.4 mmol/L Normal 3.5-5.1 [facility] Comment on above: Order Comment: No: D o not add to previous drawNo collection time noted on specimen or requisition. The collection timerecorded is the time of receipt in the lab. Performed By: #### 1 0070, 77684, 37655 ####[facility] [facility] [place] [address], [facility] [place] Sodium molar conc 131 mmol/L Low 136-145 [facility] Comment on above: Order Comment: No: D o not add to previous drawNo collection time noted on specimen or requisition. The collection timerecorded is the time of receipt in the lab. Performed By: #### 1 0070, 39144, 42465 ####[facility] [facility] [place] [address], [facility] [place] Urea nitrogen mass conc 19 mg/dL Normal 7-25 [facility] Comment on above: Order Comment: No: D o not add to previous drawNo collection time noted on specimen or requisition. The collection timerecorded is the time of receipt in the lab. Performed By: #### 1 0, , 30251 ####[address] CALCIUM IONIZED CBGLon 07-07 IONIZED CALCIUM 1.42 mmol/L High 1.12-1.30 [facility] Comment on above: Performed By: #### 1 0, , 73167 ####[address] CBC W/DIFFon 07-07-2018 ABS BASOPHILS 0.0 10*3/uL Normal 0.0-0.2 [facility] Comment on above: Order Comment: No: D o not add to previous drawNo collection time noted on specimen or requisition. The collection timerecorded is the time of receipt in the lab. Performed By: #### 1 0, , 40325 ####[address] ABS NEUTROPHILS 12.3 10*3/uL High 1.6-7.6 [facility] Comment on above: Order Comment: No: D o not add to previous drawNo collection time noted on specimen or requisition. The collection timerecorded is the time of receipt in the lab. Performed By: #### 1 0, , 92934 ####[address] Basophils Auto #/vol (Bld) 0.0 % Normal 0.0-1.0 [facility] Comment on above: Order Comment: No: D o not add to previous drawNo collection time noted on specimen or requisition. The collection timerecorded is the time of receipt in the lab. Performed By: #### 1 0, 52311, 54353 ####[address] Eosinophils Auto #/vol (Bld) 1.1 10*3/uL High 0.0-0.5 [facility] Comment on above: Order Comment: No: D o not add to previous drawNo collection time noted on specimen or requisition. The collection timerecorded is the time of receipt in the lab. Performed By: #### 1 0, 08731, 50270 ####[facility] [facility] [place] [address], [facility] [place] Eosinophils/100 WBC Auto (Bld) 6.4 % High 0.0-6.0 [facility] Comment on above: Order Comment: No: D o not add to previous drawNo collection time noted on specimen or requisition. The collection timerecorded is the time of receipt in the lab. Performed By: #### 1 0070, 14845, 81359 ####[facility]3000 [facility].[address] Erythrocyte distribution width Auto Ratio (RBC) 13.6 % Normal 11.5-15.0 [facility] Comment on above: Order Comment: No: D o not add to previous drawNo collection time noted on specimen or requisition. The collection timerecorded is the time of receipt in the lab. Performed By: #### 1 0, 60539, 84400 ####[facility] [place] [address], [facility] [place] GIANT PLATELETS Present Normal [facility] Comment on above: Order Comment: No: D o not add to previous drawNo collection time noted on specimen or requisition. The collection timerecorded is the time of receipt in the lab. Performed By: #### 1 0070, 47920, 45857 ####[facility] Hematocrit Auto Volume Fraction (Bld) 31.8 % Low 36.0-45.0 [facility] Comment on above: Order Comment: No: D o not add to previous drawNo collection time noted on specimen or requisition. The collection timerecorded is the time of receipt in the lab. Performed By: #### 1 0070, 44762, 87966 ####[facility]3000 [facility].[address] Hemoglobin mass conc (Bld) 10.1 g/dL Low 12.0-15.0 [facility] Comment on above: Order Comment: No: D o not add to previous drawNo collection time noted on specimen or requisition. The collection timerecorded is the time of receipt in the lab. Performed By: #### 1 0, , 55625 ####[facility] Lymphocytes Auto #/vol (Bld) 2.7 10*3/uL Normal 1.2-4.0 [facility] Comment on above: Order Comment: No: D o not add to previous drawNo collection time noted on specimen or requisition. The collection timerecorded is the time of receipt in the lab. Performed By: #### 1 69, , 47738 ####[facility] Lymphocytes/100 WBC Auto (Bld) 15.4 % Low 20.0-45.0 [facility] Comment on above: Order Comment: No: D o not add to previous drawNo collection time noted on specimen or requisition. The collection timerecorded is the time of receipt in the lab. Performed By: #### 1 0, , 34031 ####[facility]3000 [facility].[address] MCH Auto Entitic mass (RBC) 31.3 pg Normal 27.0-33.0 [facility] Comment on above: Order Comment: No: D o not add to previous drawNo collection time noted on specimen or requisition. The collection timerecorded is the time of receipt in the lab. Performed By: #### 1 0, , 21085 ####[facility]3000 [facility].[address] MCHC Auto mass conc (RBC) 31.8 g/dL Low 32.0-35.0 [facility] Comment on above: Order Comment: No: D o not add to previous drawNo collection time noted on specimen or requisition. The collection timerecorded is the time of receipt in the lab. Performed By: #### 1 0, 92813, 61279 ####[facility] MCV Auto Entitic volume (RBC) 98.5 fL High 82.0-98.0 [facility] Comment on above: Order Comment: No: D o not add to previous drawNo collection time noted on specimen or requisition. The collection timerecorded is the time of receipt in the lab. Performed By: #### 1 0, 33025, 10939 ####[facility] METAMYELO 0.9 % High 0.0-0.0 [facility] Comment on above: Order Comment: No: D o not add to previous drawNo collection time noted on specimen or requisition. The collection timerecorded is the time of receipt in the lab. Performed By: #### 1 0, 63477, 80867 ####[facility] Monocytes Auto #/vol (Bld) 1.0 10*3/uL Normal 0.1-1.0 [facility] Comment on above: Order Comment: No: D o not add to previous drawNo collection time noted on specimen or requisition. The collection timerecorded is the time of receipt in the lab. Performed By: #### 1 0, 41260, 07295 ####[facility] [place] [address] MONOS 5.5 % Normal 5.0-12.0 [facility] Comment on above: Order Comment: No: D o not add to previous drawNo collection time noted on specimen or requisition. The collection timerecorded is the time of receipt in the lab. Performed By: #### 1 0, 19960, 73421 ####[facility] MYELOS 0.9 % High .0-.0 [facility] Comment on above: Order Comment: No: D o not add to previous drawNo collection time noted on specimen or requisition. The collection timerecorded is the time of receipt in the lab. Performed By: #### 1 0, , 72177 ####[facility]3000 [facility].[address] Neutrophils/100 WBC Auto (Bld) 70.9 % Normal 40.0-72.0 [facility] Comment on above: Order Comment: No: D o not add to previous drawNo collection time noted on specimen or requisition. The collection timerecorded is the time of receipt in the lab. Performed By: #### 1 0, , 55071 ####[facility] Nucleated RBC/100 WBC Ratio (Bld) 0 % Normal 0-0 [facility] Comment on above: Order Comment: No: D o not add to previous drawNo collection time noted on specimen or requisition. The collection timerecorded is the time of receipt in the lab. Performed By: #### 1 0, , 60494 ####[facility] PLAT CNT 382 10*3/uL Normal 150-400 [facility] Comment on above: Order Comment: No: D o not add to previous drawNo collection time noted on specimen or requisition. The collection timerecorded is the time of receipt in the lab. Performed By: #### 1 0, 30848, 27517 ####[facility] [facility] [place] [address], [facility] [place] RBC Auto #/vol (Bld) 3.23 10*6/uL Low 3.80-5.00 [facility] Comment on above: Order Comment: No: D o not add to previous drawNo collection time noted on specimen or requisition. The collection timerecorded is the time of receipt in the lab. Performed By: #### 1 0070, 11541, 11208 ####[facility]3000 [facility].[address] WBC Auto #/vol (Bld) 17.29 10*3/uL High 4.00-10.60 [facility] Comment on above: Order Comment: No: D o not add to previous drawNo collection time noted on specimen or requisition. The collection timerecorded is the time of receipt in the lab. Performed By: #### 1 0, 83554, 80203 ####[facility]3000 [facility].[address] LIVER BATTERYon 07-07-2018 Albumin mass conc 3.0 g/dL Low 3.5-5.7 [facility] Comment on above: Order Comment: No: D o not add to previous drawNo collection time noted on specimen or requisition. The collection timerecorded is the time of receipt in the lab. Performed By: #### 1 0070, 94155, 82315 ####[facility] ALKALINE PHOSPH 99 IU/L Normal 34-104 [facility] Comment on above: Order Comment: No: D o not add to previous drawNo collection time noted on specimen or requisition. The collection timerecorded is the time of receipt in the lab. Performed By: #### 1 0070, 68437, 82305 ####[facility]3000 [facility].[address] ALT enzyme act/vol 21 U/L Normal 7-52 [facility] Comment on above: Order Comment: No: D o not add to previous drawNo collection time noted on specimen or requisition. The collection timerecorded is the time of receipt in the lab. Performed By: #### 1 0, 34478, 22800 ####[facility]3000 [facility].[address] AST enzyme act/vol 23 U/L Normal 13-39 [facility] Comment on above: Order Comment: No: D o not add to previous drawNo collection time noted on specimen or requisition. The collection timerecorded is the time of receipt in the lab. Performed By: #### 1 0, 65559, 96673 ####[facility] Bilirubin mass conc 0.5 mg/dL Normal 0.3-1.0 [facility] Comment on above: Order Comment: No: D o not add to previous drawNo collection time noted on specimen or requisition. The collection timerecorded is the time of receipt in the lab. Performed By: #### 1 0, 06404, 37562 ####[facility] Bilirubin.direct mass conc 0.3 mg/dL High 0.0-0.2 [facility] Comment on above: Order Comment: No: D o not add to previous drawNo collection time noted on specimen or requisition. The collection timerecorded is the time of receipt in the lab. Performed By: #### 1 0, 22347, 83861 ####[facility]3000 [facility].[address] Protein mass conc 6.5 g/dL Normal 6.0-8.3 [facility] Comment on above: Order Comment: No: D o not add to previous drawNo collection time noted on specimen or requisition. The collection timerecorded is the time of receipt in the lab. Performed By: #### 1 0, 67488, 88414 ####[facility] [facility] [place] [address], [facility] [place] MAGNESIUM BLOODon 07-07-2018 Magnesium mass conc 1.6 mg/dL Low 1.9-2.7 [facility] Comment on above: Order Comment: No: D o not add to previous drawNo collection time noted on specimen or requisition. The collection timerecorded is the time of receipt in the lab. Performed By: #### 1 0070, 27666, 99533 ####[facility] [place] [address], [facility] [place] PHOSPHORUS BLOODon 8 Phosphate mass conc 3.4 mg/dL Normal 2.5-5.0 [facility] Comment on above: Order Comment: No: D o not add to previous drawNo collection time noted on specimen or requisition. The collection timerecorded is the time of receipt in the lab. Performed By: #### 1 0070, 25468, 64290 ####[facility] [facility] [place] [address], [facility] [place] POC GLUCOSE LABon 07-07-2018 Glucose mass conc 157 mg/dL High 70-100 [facility] Comment on above: Performed By: #### 1 0070, 67473, 74480 ####[facility] [facility] [place] [address], [facility] [place] Glucose mass conc 196 mg/dL High 70-100 [facility] Comment on above: Performed By: #### 1 0070, 87888, 79410 ####[facility] [place] [address], [facility] [place] Glucose mass conc 190 mg/dL High 70-100 [facility] Comment on above: Performed By: #### 1 0070, 08788, 77926 ####[facility] [place] [address], [facility] [place] Glucose mass conc 189 mg/dL High 70-100 [facility] Comment on above: Performed By: #### 1 0070, 90417, 33829 ####[facility] [place] [address], [facility] [place] BASIC METABOLIC PANELon - Calcium mass conc 9.3 mg/dL Normal 8.6-10.3 [facility] Comment on above: Order Comment: No: D o not add to previous draw Performed By: #### 8 5499 ####[facility] [place] [address], [facility] [place] Chloride molar conc 100 mmol/L Normal 98-107 [facility] Comment on above: Order Comment: No: D o not add to previous draw Performed By: #### 8 5499 ####[facility] [place] [address], [facility] [place] CO2 molar conc 25 mmol/L Normal 21-31 [facility] Comment on above: Order Comment: No: D o not add to previous draw Performed By: #### 8 [id number] ####[facility] [place] [address], [facility] [place] Creatinine mass conc 0.97 mg/dL Normal 0.60-1.20 [facility] Comment on above: Order Comment: No: D o not add to previous draw Performed By: #### 8 [id number] ####[facility] [facility] [place] [address], [facility] [place] GFR/1.73 sq M predicted among blacks MDRD vol rate/area (S/P/Bld) mL/min/{1.73_m2} Normal >60 [facility] Comment on above: Order Comment: No: D o not add to previous draw Result Comment: Calc ulation may not be valid for patients over 70 years Performed By: #### 8 [id number] ####[facility] [facility] [place] [address], [facility] [place] GFR/1.73 sq M predicted among non-blacks MDRD vol rate/area (S/P/Bld) 56 ml/min/1.73sq m Abnormal >60 [facility] Comment on above: Order Comment: No: D o not add to previous draw Result Comment: Calc ulation may not be valid for patients over 70 years Performed By: #### 8 [id number] ####[facility] [place] [address], [facility] [place] Glucose mass conc 213 mg/dL High 70-100 [facility] Comment on above: Order Comment: No: D o not add to previous draw Performed By: #### 8 [id number] ####[facility] [place] [address], [facility] [place] Potassium molar conc 4.1 mmol/L Normal 3.5-5.1 [facility] Comment on above: Order Comment: No: D o not add to previous draw Performed By: #### 8 [id number] ####[facility] [place] [address], [facility] [place] Sodium molar conc 132 mmol/L Low 136-145 [facility] Comment on above: Order Comment: No: D o not add to previous draw Performed By: #### 8 [id number] ####[facility] [facility] [place] [address], [facility] [place] Urea nitrogen mass conc 19 mg/dL Normal 7-25 [facility] Comment on above: Order Comment: No: D o not add to previous draw Performed By: #### 8 [id number] ####[facility] [facility] [place] [address], [facility] [place] MAGNESIUM BLOODon 07-06-2018 Magnesium mass conc 1.8 mg/dL Low 1.9-2.7 [facility] Comment on above: Order Comment: No: D o not add to previous drawNo collection time noted on specimen or requisition. The collection timerecorded is the time of receipt in the lab. Performed By: #### 1 0070, [id number], [id number] ####[facility] [place] [address], [facility] [place] PHOSPHORUS BLOODon 8 Phosphate mass conc 3.8 mg/dL Normal 2.5-5.0 [facility] Comment on above: Order Comment: No: D o not add to previous drawNo collection time noted on specimen or requisition. The collection timerecorded is the time of receipt in the lab. Performed By: #### 1 0070, [id number], [id number] ####[facility] [place] [address], [facility] [place] POC GLUCOSE LABon 07-06-2018 Glucose mass conc 217 mg/dL High 70-100 [facility] Comment on above: Performed By: #### 1 0070, [id number], [id number] ####[facility] [place] [address], [facility] [place] Glucose mass conc 197 mg/dL High 70-100 [facility] Comment on above: Performed By: #### 1 0070, [id number], [id number] ####[facility] [place] [address], [place] Glucose mass conc 160 mg/dL High 70-100 [facility] Comment on above: Performed By: #### 8 5499 ####[facility] [place] [address], [facility] [place] TRIGLYCERIDES BLOODon 2017 Triglyceride mass conc 256 mg/dL High 40-149 [facility] Comment on above: Order Comment: No: D o not add to previous draw Result Comment: TRIG LYCERIDE REFERENCE RANGE:20 YEARS AND OLDER CARDIOVASCULAR RISKLESS THAN 150 mg/dl LOW [id number] TO 199 mg/dl BORDERLINE [id number] mg/dl AND GREATER HIGH RISK Performed By: #### 8 [id number] ####[facility] [place] [address], [facility] [place] BASIC METABOLIC PANELon 06-09 Calcium mass conc 8.7 mg/dL Normal 8.6-10.3 [facility] Comment on above: Order Comment: No: D o not add to previous draw Performed By: #### 8 5499 ####[facility] [place] [address], [place] Chloride molar conc 105 mmol/L Normal 98-107 [facility] Comment on above: Order Comment: No: D o not add to previous draw Performed By: #### 8 5499 ####[facility] [place] [address], [place] CO2 molar conc 24 mmol/L Normal 21-31 [facility] Comment on above: Order Comment: No: D o not add to previous draw Performed By: #### 8 5499 ####[facility] [place] [address], [facility] [place] Creatinine mass conc 1.05 mg/dL Normal 0.60-1.20 [facility] Comment on above: Order Comment: No: D o not add to previous draw Performed By: #### 8 5499 ####[facility] [facility] [place] [address], [facility] [place] GFR/1.73 sq M predicted among blacks MDRD vol rate/area (S/P/Bld) mL/min/{1.73_m2} Normal >60 [facility] Comment on above: Order Comment: No: D o not add to previous draw Result Comment: Calc ulation may not be valid for patients over 70 years Performed By: #### 8 5499 ####[facility] [facility] [place] [address], [facility] [place] GFR/1.73 sq M predicted among non-blacks MDRD vol rate/area (S/P/Bld) 50 ml/min/1.73sq m Abnormal >60 [facility] Comment on above: Order Comment: No: D o not add to previous draw Result Comment: Calc ulation may not be valid for patients over 70 years Performed By: #### 8 5499 ####[facility] [place] [address], [place] Glucose mass conc 185 mg/dL High 70-100 [facility] Comment on above: Order Comment: No: D o not add to previous draw Performed By: #### 8 5499 ####[facility] Potassium molar conc 3.8 mmol/L Normal 3.5-5.1 [facility] Comment on above: Order Comment: No: D o not add to previous draw Performed By: #### 8 5499 ####[facility] [facility] Sodium molar conc 138 mmol/L Normal 136-145 [facility] Comment on above: Order Comment: No: D o not add to previous draw Performed By: #### 8 5499 ####[facility] [facility].[address] Urea nitrogen mass conc 18 mg/dL Normal 7-25 [facility] Comment on above: Order Comment: No: D o not add to previous draw Performed By: #### 8 5499 ####[facility] [facility].[address] CBC W/DIFFon 07-05-2018 ABS BASOPHILS 0.0 10*3/uL Normal 0.0-0.2 [facility] Comment on above: Order Comment: No: D o not add to previous draw Performed By: #### 8 5499 ####[facility] [facility].[address] ABS NEUTROPHILS 9.5 10*3/uL High 1.6-7.6 [facility] Comment on above: Order Comment: No: D o not add to previous draw Performed By: #### 8 5499 ####[facility] [facility].[address] Basophils Auto #/vol (Bld) 0.0 % Normal 0.0-1.0 [facility] Comment on above: Order Comment: No: D o not add to previous draw Performed By: #### 8 5499 ####[facility] [facility] Eosinophils Auto #/vol (Bld) 0.2 10*3/uL Normal 0.0-0.5 [facility] Comment on above: Order Comment: No: D o not add to previous draw Performed By: #### 8 5499 ####[facility] [facility] [place] [address], [facility] [place] Eosinophils/100 WBC Auto (Bld) 1.8 % Normal 0.0-6.0 [facility] Comment on above: Order Comment: No: D o not add to previous draw Performed By: #### 8 5499 ####[facility] Erythrocyte distribution width Auto Ratio (RBC) 13.8 % Normal 11.5-15.0 [facility] Comment on above: Order Comment: No: D o not add to previous draw Performed By: #### 8 5499 ####[facility] Hematocrit Auto Volume Fraction (Bld) 28.7 % Low 36.0-45.0 [facility] Comment on above: Order Comment: No: D o not add to previous draw Performed By: #### 8 5499 ####[facility] Hemoglobin mass conc (Bld) 8.9 g/dL Low 12.0-15.0 [facility] Comment on above: Order Comment: No: D o not add to previous draw Performed By: #### 8 5499 ####[facility] [facility] [place] [address], [facility] [place] Lymphocytes Auto #/vol (Bld) 1.3 10*3/uL Normal 1.2-4.0 [facility] Comment on above: Order Comment: No: D o not add to previous draw Performed By: #### 8 5499 ####[facility] Lymphocytes/100 WBC Auto (Bld) 10.9 % Low 20.0-45.0 [facility] Comment on above: Order Comment: No: D o not add to previous draw Performed By: #### 8 5499 ####[facility] MCH Auto Entitic mass (RBC) 30.5 pg Normal 27.0-33.0 [facility] Comment on above: Order Comment: No: D o not add to previous draw Performed By: #### 8 5499 ####[place] [id number] [address] MCHC Auto mass conc (RBC) 31.0 g/dL Low 32.0-35.0 [facility] Comment on above: Order Comment: No: D o not add to previous draw Performed By: #### 8 5499 ####[facility] MCV Auto Entitic volume (RBC) 98.3 fL High 82.0-98.0 [facility] Comment on above: Order Comment: No: D o not add to previous draw Performed By: #### 8 5499 ####[address] METAMYELO 0.9 % High 0.0-0.0 [facility] Comment on above: Order Comment: No: D o not add to previous draw Performed By: #### 8 5499 ####[facility] [place] [address] Monocytes Auto #/vol (Bld) 0.8 10*3/uL Normal 0.1-1.0 [facility] Comment on above: Order Comment: No: D o not add to previous draw Performed By: #### 8 5499 ####[facility] [place], [place] [id number], [facility] [place] MONOS 6.4 % Normal 5.0-12.0 [facility] Comment on above: Order Comment: No: D o not add to previous draw Performed By: #### 8 5499 ####[facility] [facility] [place] [address], [facility] [place] MYELOS 0.9 % High .0-.0 [facility] Comment on above: Order Comment: No: D o not add to previous draw Performed By: #### 8 5499 ####[facility] [facility] [place] [address], [facility] [place] Neutrophils/100 WBC Auto (Bld) 79.1 % High 40.0-72.0 [facility] Comment on above: Order Comment: No: D o not add to previous draw Performed By: #### 8 5499 ####[facility] [facility] [place] [address], [facility] [place] Nucleated RBC/100 WBC Ratio (Bld) 0 % Normal 0-0 [facility] Comment on above: Order Comment: No: D o not add to previous draw Performed By: #### 8 5499 ####[facility] [facility] [place] [address], [facility] [place] PLAT CNT 284 10*3/uL Normal 150-400 [facility] Comment on above: Order Comment: No: D o not add to previous draw Performed By: #### 8 5499 ####[facility] [facility] [place] [address], [facility] [place] RBC Auto #/vol (Bld) 2.92 10*6/uL Low 3.80-5.00 [facility] Comment on above: Order Comment: No: D o not add to previous draw Performed By: #### 8 5499 ####[facility] [facility] [place] [address], [facility] [place] WBC Auto #/vol (Bld) 12.05 10*3/uL High 4.00-10.60 [facility] Comment on above: Order Comment: No: D o not add to previous draw Performed By: #### 8 5499 ####[facility] [place] [address], [facility] [place] MAGNESIUM BLOODon 07-05-2018 Magnesium mass conc 1.8 mg/dL Low 1.9-2.7 [facility] Comment on above: Order Comment: No: D o not add to previous draw Performed By: #### 8 5499 ####[facility] [place] [address], [facility] [place] PHOSPHORUS BLOODon 8 Phosphate mass conc 3.4 mg/dL Normal 2.5-5.0 [facility] Comment on above: Order Comment: No: D o not add to previous draw Performed By: #### 8 5499 ####[facility] [place] [address], [facility] [place] POC GLUCOSE LABon 07-05-2018 Glucose mass conc 162 mg/dL High 70-100 [facility] Comment on above: Performed By: #### 8 5499 ####[facility] [place] [address], [facility] [place] Glucose mass conc 198 mg/dL High 70-100 [facility] Comment on above: Performed By: #### 8 5499 ####[facility] [place] [address], [facility] [place] TRIGLYCERIDES BLOODon 2017 Triglyceride mass conc 204 mg/dL High 40-149 [facility] Comment on above: Order Comment: No: D o not add to previous draw Result Comment: TRIG LYCERIDE REFERENCE RANGE:20 YEARS AND OLDER CARDIOVASCULAR RISKLESS THAN 150 mg/dl LOW [id number] TO 199 mg/dl BORDERLINE [id number] mg/dl AND GREATER HIGH RISK Performed By: #### 8 [id number] ####[facility] [place] [address], [facility] [place] BASIC METABOLIC PANELon 06-09 Calcium mass conc 8.8 mg/dL Normal 8.6-10.3 [facility] Comment on above: Order Comment: No: D o not add to previous draw Performed By: #### 8 5499 ####[facility] [place] [address], [place] Chloride molar conc 105 mmol/L Normal 98-107 [facility] Comment on above: Order Comment: No: D o not add to previous draw Performed By: #### 8 5499 ####[facility] [place] [address], [place] CO2 molar conc 22 mmol/L Normal 21-31 [facility] Comment on above: Order Comment: No: D o not add to previous draw Performed By: #### 8 5499 ####[facility] [place] [address], [place] Creatinine mass conc 1.07 mg/dL Normal 0.60-1.20 [facility] Comment on above: Order Comment: No: D o not add to previous draw Performed By: #### 8 5499 ####[facility] [place] [address], [place] GFR/1.73 sq M predicted among blacks MDRD vol rate/area (S/P/Bld) mL/min/{1.73_m2} Normal >60 [facility] Comment on above: Order Comment: No: D o not add to previous draw Result Comment: Calc ulation may not be valid for patients over 70 years Performed By: #### 8 5499 ####[facility] [place] [address], [place] GFR/1.73 sq M predicted among non-blacks MDRD vol rate/area (S/P/Bld) 50 ml/min/1.73sq m Abnormal >60 [facility] Comment on above: Order Comment: No: D o not add to previous draw Result Comment: Calc ulation may not be valid for patients over 70 years Performed By: #### 8 5499 ####[facility] Glucose mass conc 188 mg/dL High 70-100 [facility] Comment on above: Order Comment: No: D o not add to previous draw Performed By: #### 8 5499 ####[facility] [facility].[address] Potassium molar conc 3.7 mmol/L Normal 3.5-5.1 [facility] Comment on above: Order Comment: No: D o not add to previous draw Performed By: #### 8 5499 ####[facility] [facility].[address] Sodium molar conc 136 mmol/L Normal 136-145 [facility] Comment on above: Order Comment: No: D o not add to previous draw Performed By: #### 8 5499 ####[facility] [facility].[address] Urea nitrogen mass conc 14 mg/dL Normal 7-25 [facility] Comment on above: Order Comment: No: D o not add to previous draw Performed By: #### 8 5499 ####[facility] [facility].[address] CBC W/DIFFon 07-04-2018 ABS BASOPHILS 0.0 10*3/uL Normal 0.0-0.2 [facility] Comment on above: Performed By: #### 8 5499 ####[facility] [facility] [place] [address], [facility] ABS NEUTROPHILS 9.7 10*3/uL High 1.6-7.6 [facility] Comment on above: Performed By: #### 8 5499 ####[facility] [place] [address], [facility] Basophils Auto #/vol (Bld) 0.0 % Normal 0.0-1.0 [facility] Comment on above: Performed By: #### 8 5499 ####[facility] [facility] Eosinophils Auto #/vol (Bld) 0.2 10*3/uL Normal 0.0-0.5 [facility] Comment on above: Performed By: #### 8 5499 ####[facility] [facility] Eosinophils/100 WBC Auto (Bld) 1.8 % Normal 0.0-6.0 [facility] Comment on above: Performed By: #### 8 5499 ####[facility] [facility] Erythrocyte distribution width Auto Ratio (RBC) 13.7 % Normal 11.5-15.0 [facility] Comment on above: Performed By: #### 8 5499 ####[facility] [facility].[address] GIANT PLATELETS Present Normal [facility] Comment on above: Performed By: #### 8 5499 ####[facility] [facility] Hematocrit Auto Volume Fraction (Bld) 31.4 % Low 36.0-45.0 [facility] Comment on above: Performed By: #### 8 5499 ####[facility] [facility].[address] Hemoglobin mass conc (Bld) 10.0 g/dL Low 12.0-15.0 [facility] Comment on above: Performed By: #### 8 5499 ####[facility] Lymphocytes Auto #/vol (Bld) 1.5 10*3/uL Normal 1.2-4.0 [facility] Comment on above: Performed By: #### 8 5499 ####[facility] Lymphocytes/100 WBC Auto (Bld) 11.8 % Low 20.0-45.0 [facility] Comment on above: Performed By: #### 8 5499 ####[facility] MCH Auto Entitic mass (RBC) 30.8 pg Normal 27.0-33.0 [facility] Comment on above: Performed By: #### 8 5499 ####[facility] MCHC Auto mass conc (RBC) 31.8 g/dL Low 32.0-35.0 [facility] Comment on above: Performed By: #### 8 5499 ####[facility] [place] [address] MCV Auto Entitic volume (RBC) 96.6 fL Normal 82.0-98.0 [facility] Comment on above: Performed By: #### 8 5499 ####[place] [id number] [address] METAMYELO 0.9 % High 0.0-0.0 [facility] Comment on above: Performed By: #### 8 5499 ####[facility] Monocytes Auto #/vol (Bld) 1.0 10*3/uL Normal 0.1-1.0 [facility] Comment on above: Performed By: #### 8 5499 ####[facility] [place] [address] MONOS 8.2 % Normal 5.0-12.0 [facility] Comment on above: Performed By: #### 8 5499 ####[facility] [address], [facility] Neutrophils/100 WBC Auto (Bld) 77.3 % High 40.0-72.0 [facility] Comment on above: Performed By: #### 8 5499 ####[facility] [facility].[address] NRBC SCAN Present Normal [facility] Comment on above: Performed By: #### 8 5499 ####[facility] [facility].[address] Nucleated RBC/100 WBC Ratio (Bld) 0 % Normal 0-0 [facility] Comment on above: Performed By: #### 8 5499 ####[facility] [facility].[address] PLAT CNT 300 10*3/uL Normal 150-400 [facility] Comment on above: Performed By: #### 8 5499 ####[facility] [facility] [place] [address], [facility] RBC Auto #/vol (Bld) 3.25 10*6/uL Low 3.80-5.00 [facility] Comment on above: Performed By: #### 8 5499 ####[facility] [facility].[address] WBC Auto #/vol (Bld) 12.52 10*3/uL High 4.00-10.60 [facility] Comment on above: Performed By: #### 8 5499 ####[facility] [facility].[address] MAGNESIUM BLOODon 07-04-2018 Magnesium mass conc 1.9 mg/dL Normal 1.9-2.7 [facility] Comment on above: Order Comment: No: D o not add to previous draw Performed By: #### 8 5499 ####[facility] [place] [address], [facility] PHOSPHORUS BLOODon 8 Phosphate mass conc 2.8 mg/dL Normal 2.5-5.0 [facility] Comment on above: Order Comment: No: D o not add to previous draw Performed By: #### 8 5499 ####[facility] [place] [address], [facility] POC GLUCOSE LABon 07-04-2018 Glucose mass conc 161 mg/dL High 70-100 [facility] Comment on above: Performed By: #### 8 5499 ####[facility] [place] [address], [facility] Glucose mass conc 169 mg/dL High 70-100 [facility] Comment on above: Performed By: #### 8 5499 ####[facility] [place] [address], [facility] Glucose mass conc 222 mg/dL High 70-100 [facility] Comment on above: Performed By: #### 8 [id number] ####[facility] [place] [address], [facility] Glucose mass conc 186 mg/dL High 70-100 [facility] Comment on above: Performed By: #### 8 5499 ####[facility] [place] [address], [facility] [place] Glucose mass conc 153 mg/dL High 70-100 [facility] Comment on above: Performed By: #### 8 5499 ####[facility] [place] [address], [facility] [place] BASIC METABOLIC PANELon 06-09 Calcium mass conc 8.1 mg/dL Low 8.6-10.3 [facility] Comment on above: Order Comment: No: D o not add to previous draw Performed By: #### 8 5499 ####[facility] [place] [address], [facility] [place] Chloride molar conc 104 mmol/L Normal 98-107 [facility] Comment on above: Order Comment: No: D o not add to previous draw Performed By: #### 8 5499 ####[facility] [place] [address], [place] CO2 molar conc 21 mmol/L Normal 21-31 [facility] Comment on above: Order Comment: No: D o not add to previous draw Performed By: #### 8 5499 ####[facility] [place] [address], [facility] [place] Creatinine mass conc 1.12 mg/dL Normal 0.60-1.20 [facility] Comment on above: Order Comment: No: D o not add to previous draw Performed By: #### 8 5499 ####[facility] [place] [address], [place] GFR/1.73 sq M predicted among blacks MDRD vol rate/area (S/P/Bld) 57 ml/min/1.73sq m Abnormal >60 [facility] Comment on above: Order Comment: No: D o not add to previous draw Result Comment: Calc ulation may not be valid for patients over 70 years Performed By: #### 8 5499 ####[facility] [place] [address], [place] GFR/1.73 sq M predicted among non-blacks MDRD vol rate/area (S/P/Bld) 47 ml/min/1.73sq m Abnormal >60 [facility] Comment on above: Order Comment: No: D o not add to previous draw Result Comment: Calc ulation may not be valid for patients over 70 years Performed By: #### 8 5499 ####[facility] [place] [address], [place] Glucose mass conc 246 mg/dL High 70-100 [facility] Comment on above: Order Comment: No: D o not add to previous draw Performed By: #### 8 5499 ####[facility] Potassium molar conc 4.4 mmol/L Normal 3.5-5.1 [facility] Comment on above: Order Comment: No: D o not add to previous draw Performed By: #### 8 5499 ####[facility] [place] [address], [facility] [place] Sodium molar conc 132 mmol/L Low 136-145 [facility] Comment on above: Order Comment: No: D o not add to previous draw Performed By: #### 8 5499 ####[facility]3000 [facility].[address] Urea nitrogen mass conc 10 mg/dL Normal 7-25 [facility] Comment on above: Order Comment: No: D o not add to previous draw Performed By: #### 8 5499 ####[facility] [facility].[address] CBC COMPLETE BLOOD COUNTon 0 07-03-2018 Erythrocyte distribution width Auto Ratio (RBC) 13.7 % Normal 11.5-15.0 [facility] Comment on above: Order Comment: No: D o not add to previous draw Performed By: #### 8 5499 ####[facility] [facility].[address] Hematocrit Auto Volume Fraction (Bld) 36.3 % Normal 36.0-45.0 [facility] Comment on above: Order Comment: No: D o not add to previous draw Performed By: #### 8 5499 ####[facility] [facility].[address] Hemoglobin mass conc (Bld) 11.3 g/dL Low 12.0-15.0 [facility] Comment on above: Order Comment: No: D o not add to previous draw Performed By: #### 8 5499 ####[facility] MCH Auto Entitic mass (RBC) 30.5 pg Normal 27.0-33.0 [facility] Comment on above: Order Comment: No: D o not add to previous draw Performed By: #### 8 5499 ####[facility] MCHC Auto mass conc (RBC) 31.1 g/dL Low 32.0-35.0 [facility] Comment on above: Order Comment: No: D o not add to previous draw Performed By: #### 8 5499 ####[facility] MCV Auto Entitic volume (RBC) 97.8 fL Normal 82.0-98.0 [facility] Comment on above: Order Comment: No: D o not add to previous draw Performed By: #### 8 5499 ####[facility] Nucleated RBC/100 WBC Ratio (Bld) 0 % Normal 0-0 [facility] Comment on above: Order Comment: No: D o not add to previous draw Performed By: #### 8 5499 ####[facility] [facility] PLAT CNT 313 10*3/uL Normal 150-400 [facility] Comment on above: Order Comment: No: D o not add to previous draw Performed By: #### 8 5499 ####[facility] RBC Auto #/vol (Bld) 3.71 10*6/uL Low 3.80-5.00 [facility] Comment on above: Order Comment: No: D o not add to previous draw Performed By: #### 8 5499 ####[facility] WBC Auto #/vol (Bld) 9.64 10*3/uL Normal 4.00-10.60 [facility] Comment on above: Order Comment: No: D o not add to previous draw Performed By: #### 8 5499 ####[facility] [place] [address], [facility] [place] LIVER BATTERYon 07-03-2018 Albumin mass conc 2.8 g/dL Low 3.5-5.7 [facility] Comment on above: Order Comment: No: D o not add to previous draw Performed By: #### 8 5499 ####[facility] [place] [address], [facility] [place] ALKALINE PHOSPH 87 IU/L Normal 34-104 [facility] Comment on above: Order Comment: No: D o not add to previous draw Performed By: #### 8 5499 ####[facility] [place] [address], [facility] ALT enzyme act/vol 17 U/L Normal 7-52 [facility] Comment on above: Order Comment: No: D o not add to previous draw Performed By: #### 8 5499 ####[facility] [place] [address], [facility] AST enzyme act/vol 17 U/L Normal 13-39 [facility] Comment on above: Order Comment: No: D o not add to previous draw Performed By: #### 8 5499 ####[facility] [place] [address], [facility] [place] Bilirubin mass conc 1.0 mg/dL Normal 0.3-1.0 [facility] Comment on above: Order Comment: No: D o not add to previous draw Performed By: #### 8 5499 ####[facility] [place] [address], [facility] [place] Bilirubin.direct mass conc 0.6 mg/dL High 0.0-0.2 [facility] Comment on above: Order Comment: No: D o not add to previous draw Performed By: #### 8 5499 ####[facility] Protein mass conc 5.6 g/dL Low 6.0-8.3 [facility] Comment on above: Order Comment: No: D o not add to previous draw Performed By: #### 8 5499 ####[facility] MAGNESIUM BLOODon 07-03-2018 Magnesium mass conc 2.3 mg/dL Normal 1.9-2.7 [facility] Comment on above: Order Comment: No: D o not add to previous draw Performed By: #### 8 5499 ####[facility] Operative Reporton 8 Operative Report MR#: [id number] [facility] Vidhya Giordano Room #: [id number] Discharge Date: Birthdate: 1940 OPERATIVE REPORTDATE OF SURGERY: 07/02/2018SURGEON: Meg Abebe M.D.PREOPERATIVE DIAGNOSIS: Status post repair of enterocutaneous fistula andanastomosis leak.POSTOPERATIVE DIAGNOSIS: Status post repair of enterocutaneous fistula andanastomosis leak.OPERATION PERFORMED: Exploratory laparotomy, extensive lysis of adhesionmore than 2 hours, small-bowel resection with functional zof-pg-lggozufjdeadjd and repair of a transverse colon iatrogenic [...] time-out, the incision staple was reopened and bpqcvfyqwgnyzylou-hf-lwcvj suture was removed. The fascia was opened. [...] divided with the LigaSure. Then, a functional vvc-bh-uepljrmbjqevdp was performed by a blue load 6 [...] 12:44 P Meg Abebe M.D.Date Dict: 07/02/2018/07:16 Chandni/Meg Abebe M.D.Date Trans: 07/02/2018 10:15 P/[id number]_JN:[id number] c: Kalin Santos D.O. [address] [facility] [address] Normal [facility] PHOSPHORUS BLOODon 8 Phosphate mass conc 2.3 mg/dL Low 2.5-5.0 [facility] Comment on above: Order Comment: No: D o not add to previous draw Performed By: #### 8 5499 ####[facility] [place] [address], [place] POC GLUCOSE LABon 07-03-2018 Glucose mass conc 169 mg/dL High 70-100 [facility] Comment on above: Performed By: #### 8 5499 ####[facility] [place] [address], [place] Glucose mass conc 141 mg/dL High 70-100 [facility] Comment on above: Performed By: #### 8 5499 ####[facility] [place] [address], [place] Glucose mass conc 221 mg/dL High 70-100 [facility] Comment on above: Performed By: #### 8 5499 ####[facility] [place] [address], [place] *BLOOD CULTUREon 07-02-2018 Bacteria identified in Blood by Culture Clinical Report: (D) Specimen: BLOOD CULTURE Collected: 07/02/2018 21:59 Status: Final Last Updated: 07/08/2018 07:42 CULT RES (Final) No Growth Day 5 Normal [facility] Comment on above: Performed By: #### 8 5499 ####[facility] [place] [address], [place] Bacteria identified in Blood by Culture Clinical Report: (D) Specimen: BLOOD CULTURE Collected: 07/02/2018 21:50 Status: Final Last Updated: 07/08/2018 07:42 (1) left hand CULT RES (Final) No Growth Day 5 Normal [facility] Comment on above: Order Comment: left hand Performed By: #### 8 5499 ####[facility] [place] [address], [facility] BASIC METABOLIC PANELon 06-09 Calcium mass conc 8.2 mg/dL Low 8.6-10.3 [facility] Comment on above: Order Comment: No: D o not add to previous draw Performed By: #### 5 6101, 98617 ####[facility] [place] [address], [facility] [place] Chloride molar conc 103 mmol/L Normal 98-107 [facility] Comment on above: Order Comment: No: D o not add to previous draw Performed By: #### 5 6101, 30548 ####[facility] [place] [address], [facility] [place] CO2 molar conc 20 mmol/L Low 21-31 [facility] Comment on above: Order Comment: No: D o not add to previous draw Performed By: #### 5 6101, 80690 ####[facility] [place] [address], [facility] [place] Creatinine mass conc 1.09 mg/dL Normal 0.60-1.20 [facility] Comment on above: Order Comment: No: D o not add to previous draw Performed By: #### 5 6101, 43225 ####[facility] [place] [address], [facility] GFR/1.73 sq M predicted among blacks MDRD vol rate/area (S/P/Bld) 59 ml/min/1.73sq m Abnormal >60 [facility] Comment on above: Order Comment: No: D o not add to previous draw Result Comment: Calc ulation may not be valid for patients over 70 years Performed By: #### 5 610, 63383 ####[facility] [place] [address], [facility] GFR/1.73 sq M predicted among non-blacks MDRD vol rate/area (S/P/Bld) 48 ml/min/1.73sq m Abnormal >60 [facility] Comment on above: Order Comment: No: D o not add to previous draw Result Comment: Calc ulation may not be valid for patients over 70 years Performed By: #### 5 610, 81193 ####[facility] [place] [address], [facility] Glucose mass conc 272 mg/dL High 70-100 [facility] Comment on above: Order Comment: No: D o not add to previous draw Performed By: #### 5 610, 89891 ####[facility] [place] [address], [facility] [place] Potassium molar conc 3.6 mmol/L Normal 3.5-5.1 [facility] Comment on above: Order Comment: No: D o not add to previous draw Performed By: #### 5 6101, 94872 ####[facility] [place] [address], [facility] [place] Sodium molar conc 132 mmol/L Low 136-145 [facility] Comment on above: Order Comment: No: D o not add to previous draw Performed By: #### 5 610, 04495 ####[facility] [place] [address], [facility] [place] Urea nitrogen mass conc 10 mg/dL Normal 7-25 [facility] Comment on above: Order Comment: No: D o not add to previous draw Performed By: #### 5 610, 86354 ####[facility] [place] [address], [place] Calcium mass conc 8.4 mg/dL Low 8.6-10.3 [facility] Comment on above: Order Comment: No: D o not add to previous draw Performed By: #### 5 6101, 89308 ####[facility] [place] [address], [place] Chloride molar conc 106 mmol/L Normal 98-107 [facility] Comment on above: Order Comment: No: D o not add to previous draw Performed By: #### 5 6101, 67647 ####[facility] [place] [address], [place] CO2 molar conc 24 mmol/L Normal 21-31 [facility] Comment on above: Order Comment: No: D o not add to previous draw Performed By: #### 5 6101, 94271 ####[facility] [place] [address], [place] Creatinine mass conc 1.12 mg/dL Normal 0.60-1.20 [facility] Comment on above: Order Comment: No: D o not add to previous draw Performed By: #### 5 6101, 76421 ####[facility] [place] [address], [place] GFR/1.73 sq M predicted among blacks MDRD vol rate/area (S/P/Bld) 57 ml/min/1.73sq m Abnormal >60 [facility] Comment on above: Order Comment: No: D o not add to previous draw Result Comment: Calc ulation may not be valid for patients over 70 years Performed By: #### 5 6101, 58685 ####[facility] [place] [address], [place] GFR/1.73 sq M predicted among non-blacks MDRD vol rate/area (S/P/Bld) 47 ml/min/1.73sq m Abnormal >60 [facility] Comment on above: Order Comment: No: D o not add to previous draw Result Comment: Calc ulation may not be valid for patients over 70 years Performed By: #### 5 610, 51167 ####[facility] [place] [address], [facility] Glucose mass conc 149 mg/dL High 70-100 [facility] Comment on above: Order Comment: No: D o not add to previous draw Performed By: #### 5 610, 25506 ####[facility] [place] [address], [place] Potassium molar conc 3.8 mmol/L Normal 3.5-5.1 [facility] Comment on above: Order Comment: No: D o not add to previous draw Performed By: #### 5 610, 11546 ####[facility] [place] [address], [facility] Sodium molar conc 136 mmol/L Normal 136-145 [facility] Comment on above: Order Comment: No: D o not add to previous draw Performed By: #### 5 610, 15732 ####[facility] [place] [address], [facility] [place] Urea nitrogen mass conc 12 mg/dL Normal 7-25 [facility] Comment on above: Order Comment: No: D o not add to previous draw Performed By: #### 5 610, 77579 ####[facility] [place] [address], [facility] CBC COMPLETE BLOOD COUNTon 0 07-02-2018 Erythrocyte distribution width Auto Ratio (RBC) 13.8 % Normal 11.5-15.0 [facility] Comment on above: Order Comment: No: D o not add to previous [id number]- PATIENT NOT IN ROOM; STILL IN O.R. SHOULD BE RN DRAW, PER RN-TECH LM Performed By: #### 5 6101, 82553 ####[facility] [place] [address], [place] Hematocrit Auto Volume Fraction (Bld) 36.9 % Normal 36.0-45.0 [facility] Comment on above: Order Comment: No: D o not add to previous [id number]- PATIENT NOT IN ROOM; STILL IN O.R. SHOULD BE RN DRAW, PER RN-TECH LM Performed By: #### 5 6101, 56085 ####[facility] Hemoglobin mass conc (Bld) 11.6 g/dL Low 12.0-15.0 [facility] Comment on above: Order Comment: No: D o not add to previous [id number]- PATIENT NOT IN ROOM; STILL IN O.R. SHOULD BE RN DRAW, PER RN-TECH LM Performed By: #### 5 6101, 54004 ####[facility] [place] [address] MCH Auto Entitic mass (RBC) 31.1 pg Normal 27.0-33.0 [facility] Comment on above: Order Comment: No: D o not add to previous [id number]- PATIENT NOT IN ROOM; STILL IN O.R. SHOULD BE RN DRAW, PER RN-TECH LM Performed By: #### 5 6101, 97009 ####[place] [address] [address] MCHC Auto mass conc (RBC) 31.4 g/dL Low 32.0-35.0 [facility] Comment on above: Order Comment: No: D o not add to previous [id number]- PATIENT NOT IN ROOM; STILL IN O.R. SHOULD BE RN DRAW, PER RN-TECH LM Performed By: #### 5 6101, 75451 ####[facility] MCV Auto Entitic volume (RBC) 98.9 fL High 82.0-98.0 [facility] Comment on above: Order Comment: No: D o not add to previous [id number]- PATIENT NOT IN ROOM; STILL IN O.R. SHOULD BE RN DRAW, PER RN-TECH LM Performed By: #### 5 6101, 08384 ####[facility] Nucleated RBC/100 WBC Ratio (Bld) 0 % Normal 0-0 [facility] Comment on above: Order Comment: No: D o not add to previous [id number]- PATIENT NOT IN ROOM; STILL IN O.R. SHOULD BE RN DRAW, PER RN-TECH LM Performed By: #### 5 6101, 61916 ####[facility] [place] [address] PLAT CNT 165 10*3/uL Normal 150-400 [facility] Comment on above: Order Comment: No: D o not add to previous [id number]- PATIENT NOT IN ROOM; STILL IN O.R. SHOULD BE RN DRAW, PER RN-TECH LM Performed By: #### 5 610, [address]18 ####[address] RBC Auto #/vol (Bld) 3.73 10*6/uL Low 3.80-5.00 [facility] Comment on above: Order Comment: No: D o not add to previous [id number]- PATIENT NOT IN ROOM; STILL IN O.R. SHOULD BE RN DRAW, PER RN-TECH LM Performed By: #### 5 6101, 51127 ####[address] WBC Auto #/vol (Bld) 9.50 10*3/uL Normal 4.00-10.60 [facility] Comment on above: Order Comment: No: D o not add to previous [id number]- PATIENT NOT IN ROOM; STILL IN O.R. SHOULD BE RN DRAW, PER RN-TECH LM Performed By: #### 5 6101, 98805 ####[address] Erythrocyte distribution width Auto Ratio (RBC) 13.9 % Normal 11.5-15.0 [facility] Comment on above: Order Comment: No: D o not add to previous draw Performed By: #### 5 6101, 69245 ####[facility] [facility] Hematocrit Auto Volume Fraction (Bld) 34.4 % Low 36.0-45.0 [facility] Comment on above: Order Comment: No: D o not add to previous draw Performed By: #### 5 610, 53935 ####[facility] [facility] Hemoglobin mass conc (Bld) 10.8 g/dL Low 12.0-15.0 [facility] Comment on above: Order Comment: No: D o not add to previous draw Performed By: #### 5 6100, 58304 ####[facility] [facility] MCH Auto Entitic mass (RBC) 31.1 pg Normal 27.0-33.0 [facility] Comment on above: Order Comment: No: D o not add to previous draw Performed By: #### 5 6100, 11195 ####[facility] [facility].[address] MCHC Auto mass conc (RBC) 31.4 g/dL Low 32.0-35.0 [facility] Comment on above: Order Comment: No: D o not add to previous draw Performed By: #### 5 6100, 28682 ####[facility] [facility].[address] MCV Auto Entitic volume (RBC) 99.1 fL High 82.0-98.0 [facility] Comment on above: Order Comment: No: D o not add to previous draw Performed By: #### 5 610, 45983 ####[facility] [facility].[address] Nucleated RBC/100 WBC Ratio (Bld) 0 % Normal 0-0 [facility] Comment on above: Order Comment: No: D o not add to previous draw Performed By: #### 5 6101, 75310 ####[facility] PLAT CNT 232 10*3/uL Normal 150-400 [facility] Comment on above: Order Comment: No: D o not add to previous draw Performed By: #### 5 6101, 96182 ####[facility] RBC Auto #/vol (Bld) 3.47 10*6/uL Low 3.80-5.00 [facility] Comment on above: Order Comment: No: D o not add to previous draw Performed By: #### 5 6101, 86539 ####[facility] WBC Auto #/vol (Bld) 9.09 10*3/uL Normal 4.00-10.60 [facility] Comment on above: Order Comment: No: D o not add to previous draw Performed By: #### 5 6101, 58172 ####[facility] [facility].[address] MAGNESIUM BLOODon 07-02-2018 Magnesium mass conc 1.6 mg/dL Low 1.9-2.7 [facility] Comment on above: Order Comment: No: D o not add to previous draw Performed By: #### 5 6101, 27521 ####[facility] [facility].[address] Operative Reporton 8 Operative Report MR#: [id number] [facility] Vid[facility]a [facility]ord[facility] Room #: [id number] Discharge Date: Birthdate: 1940 OPERATIVE REPORTDATE OF [...] The fascia wasclosed by interrupted 0 PDS idxtqs-lg-gipyf suture. The skin was closed byskin jd. The Prevena wound VAC was applied. Operation was completedwithout complication.I was present during the entire operation.Electronically Signed by:Meg Abebe M.D. 07/07/2018 12:44 P Meg Abebe M.D.Date Dict: 07/02/2018/07:09 P/Meg Abebe M.D.Date Trans: 07/02/2018 09:51 P/[id number] c: Kalin Santos D.O. [address] [facility] [address] Normal [facility] PHOSPHORUS BLOODon 8 Phosphate mass conc 1.9 mg/dL Low 2.5-5.0 [facility] Comment on above: Order Comment: No: D o not add to previous [id number]- CHANGED TO LAB DRAW Performed By: #### 8 [id number] ####[facility] [place] [address], [place] POC GLUCOSE LABon 07-02-2018 Glucose mass conc 246 mg/dL High 70-100 [facility] Comment on above: Performed By: #### 5 6101, 48674 ####[facility] [place] [address], [place] Glucose mass conc 145 mg/dL High 70-100 [facility] Comment on above: Performed By: #### 5 6101, 17068 ####[facility] [place] [address], [place] Glucose mass conc 140 mg/dL High 70-100 [facility] Comment on above: Performed By: #### 5 6101, 53252 ####[facility] [place] [address], [place] Glucose mass conc 163 mg/dL High 70-100 [facility] Comment on above: Performed By: #### 5 6101, 95475 ####[facility] [place] [address], [place] TYPE AND SCREENon 07-02-2018 ABO INTERPRETATION A Normal [facility] Comment on above: Performed By: #### 5 6101, 07404 ####[facility] [place] [address], [place] RH INTERPRETATION Positive Normal [facility] Comment on above: Performed By: #### 5 6101, 85185 ####[facility] [place] [address], [place] POC GLUCOSE LABon 07-01-2018 Glucose mass conc 137 mg/dL High 70-100 [facility] Comment on above: Performed By: #### 5 6100, 95741 ####[facility] [place] [address], [place] Glucose mass conc 178 mg/dL High 70-100 [facility] Comment on above: Performed By: #### 5 6100, 97272 ####[facility] [place] [address], [place] Glucose mass conc 119 mg/dL High 70-100 [facility] Comment on above: Performed By: #### 5 6100, 66399 ####[facility] [place] [address], [place] Glucose mass conc 95 mg/dL Normal 70-100 [facility] Comment on above: Performed By: #### 5 6100, 52814 ####[facility] [place] [address], [facility] [place] BASIC METABOLIC PANELon 06-09 Calcium mass conc 8.3 mg/dL Low 8.6-10.3 [facility] Comment on above: Order Comment: No: D o not add to previous draw Performed By: #### 5 6100, 68963 ####[facility] [place] [address], [place] Chloride molar conc 110 mmol/L High 98-107 [facility] Comment on above: Order Comment: No: D o not add to previous draw Performed By: #### 5 6100, 74155 ####[facility] [place] [address], [place] CO2 molar conc 23 mmol/L Normal 21-31 [facility] Comment on above: Order Comment: No: D o not add to previous draw Performed By: #### 5 610, 75535 ####[facility] [place] [address], [facility] [place] Creatinine mass conc 1.08 mg/dL Normal 0.60-1.20 [facility] Comment on above: Order Comment: No: D o not add to previous draw Performed By: #### 5 610, 07511 ####[facility] [place] [address], [facility] [place] GFR/1.73 sq M predicted among blacks MDRD vol rate/area (S/P/Bld) 59 ml/min/1.73sq m Abnormal >60 [facility] Comment on above: Order Comment: No: D o not add to previous draw Result Comment: Calc ulation may not be valid for patients over 70 years Performed By: #### 5 610, 50833 ####[facility] [facility] [place] [address], [facility] [place] GFR/1.73 sq M predicted among non-blacks MDRD vol rate/area (S/P/Bld) 49 ml/min/1.73sq m Abnormal >60 [facility] Comment on above: Order Comment: No: D o not add to previous draw Result Comment: Calc ulation may not be valid for patients over 70 years Performed By: #### 5 610, 21014 ####[facility] [place] [address], [facility] [place] Glucose mass conc 148 mg/dL High 70-100 [facility] Comment on above: Order Comment: No: D o not add to previous draw Performed By: #### 5 610, 30691 ####[facility] [facility] [place] [address], [facility] [place] Potassium molar conc 3.9 mmol/L Normal 3.5-5.1 [facility] Comment on above: Order Comment: No: D o not add to previous draw Performed By: #### 5 610, 34274 ####[facility] [facility].[address] Sodium molar conc 139 mmol/L Normal 136-145 [facility] Comment on above: Order Comment: No: D o not add to previous draw Performed By: #### 5 610, 79013 ####[facility] [facility] Urea nitrogen mass conc 14 mg/dL Normal 7-25 [facility] Comment on above: Order Comment: No: D o not add to previous draw Performed By: #### 5 6100, 00885 ####[facility] [facility].[address] CBC COMPLETE BLOOD COUNTon 0 06-30-2018 Erythrocyte distribution width Auto Ratio (RBC) 14.0 % Normal 11.5-15.0 [facility] Comment on above: Order Comment: No: D o not add to previous draw Performed By: #### 5 6100, 56944 ####[facility] [facility].[address] Hematocrit Auto Volume Fraction (Bld) 34.0 % Low 36.0-45.0 [facility] Comment on above: Order Comment: No: D o not add to previous draw Performed By: #### 5 6100, 52106 ####[facility] [facility] Hemoglobin mass conc (Bld) 10.7 g/dL Low 12.0-15.0 [facility] Comment on above: Order Comment: No: D o not add to previous draw Performed By: #### 5 6100, 15244 ####[facility] [place] [address], [facility] [place] MCH Auto Entitic mass (RBC) 31.6 pg Normal 27.0-33.0 [facility] Comment on above: Order Comment: No: D o not add to previous draw Performed By: #### 5 610, 01615 ####[facility] MCHC Auto mass conc (RBC) 31.5 g/dL Low 32.0-35.0 [facility] Comment on above: Order Comment: No: D o not add to previous draw Performed By: #### 5 6100, 78353 ####[facility] [facility] MCV Auto Entitic volume (RBC) 100.3 fL High 82.0-98.0 [facility] Comment on above: Order Comment: No: D o not add to previous draw Performed By: #### 5 6100, 46897 ####[facility] [facility].[address] Nucleated RBC/100 WBC Ratio (Bld) 0 % Normal 0-0 [facility] Comment on above: Order Comment: No: D o not add to previous draw Performed By: #### 5 6100, 57255 ####[facility] [facility].[address] PLAT CNT 213 10*3/uL Normal 150-400 [facility] Comment on above: Order Comment: No: D o not add to previous draw Performed By: #### 5 6100, 55065 ####[facility] [facility].[address] RBC Auto #/vol (Bld) 3.39 10*6/uL Low 3.80-5.00 [facility] Comment on above: Order Comment: No: D o not add to previous draw Performed By: #### 5 610, 19283 ####[facility] [place] [address], [facility] [place] WBC Auto #/vol (Bld) 11.66 10*3/uL High 4.00-10.60 [facility] Comment on above: Order Comment: No: D o not add to previous draw Performed By: #### 5 610, 97210 ####[facility] [place] [address], [place] MAGNESIUM BLOODon 06-30-2018 Magnesium mass conc 2.1 mg/dL Normal 1.9-2.7 [facility] Comment on above: Order Comment: No: D o not add to previous draw Performed By: #### 5 6101, 25265 ####[facility] [place] [address], [facility] [place] PHOSPHORUS BLOODon 8 Phosphate mass conc 2.1 mg/dL Low 2.5-5.0 [facility] Comment on above: Order Comment: No: D o not add to previous draw Performed By: #### 5 6101, 17778 ####[facility] [place] [address], [place] POC GLUCOSE LABon 06-30-2018 Glucose mass conc 160 mg/dL High 70-100 [facility] Comment on above: Performed By: #### 5 6101, 92649 ####[facility] [place] [address], [place] Glucose mass conc 193 mg/dL High 70-100 [facility] Comment on above: Performed By: #### 5 6101, 21261 ####[facility] [place] [address], [place] Glucose mass conc 134 mg/dL High 70-100 [facility] Comment on above: Performed By: #### 8 5499 ####[facility] [place] [address], [place] Glucose mass conc 132 mg/dL High 70-100 [facility] Comment on above: Performed By: #### 8 5499 ####[facility] [place] [address], [place] BASIC METABOLIC PANELon 06-09 Calcium mass conc 8.7 mg/dL Normal 8.6-10.3 [facility] Comment on above: Order Comment: No: D o not add to previous draw Performed By: #### 8 5499 ####[facility] [place] [address], [facility] [place] Chloride molar conc 110 mmol/L High 98-107 [facility] Comment on above: Order Comment: No: D o not add to previous draw Performed By: #### 8 5499 ####[facility] [place] [address], [place] CO2 molar conc 24 mmol/L Normal 21-31 [facility] Comment on above: Order Comment: No: D o not add to previous draw Performed By: #### 8 5499 ####[facility] [place] [address], [place] Creatinine mass conc 1.25 mg/dL High 0.60-1.20 [facility] Comment on above: Order Comment: No: D o not add to previous draw Performed By: #### 8 5499 ####[facility] [place] [address], [place] GFR/1.73 sq M predicted among blacks MDRD vol rate/area (S/P/Bld) 50 ml/min/1.73sq m Abnormal >60 [facility] Comment on above: Order Comment: No: D o not add to previous draw Result Comment: Calc ulation may not be valid for patients over 70 years Performed By: #### 8 5499 ####[facility] [place] [address], [place] GFR/1.73 sq M predicted among non-blacks MDRD vol rate/area (S/P/Bld) 42 ml/min/1.73sq m Abnormal >60 [facility] Comment on above: Order Comment: No: D o not add to previous draw Result Comment: Calc ulation may not be valid for patients over 70 years Performed By: #### 8 5499 ####[facility] [place] [address], [facility] [place] Glucose mass conc 183 mg/dL High 70-100 [facility] Comment on above: Order Comment: No: D o not add to previous draw Performed By: #### 8 5499 ####[facility] [place] [address], [facility] [place] Potassium molar conc 4.0 mmol/L Normal 3.5-5.1 [facility] Comment on above: Order Comment: No: D o not add to previous draw Performed By: #### 8 5499 ####[facility] [place] [address], [facility] [place] Sodium molar conc 139 mmol/L Normal 136-145 [facility] Comment on above: Order Comment: No: D o not add to previous draw Performed By: #### 8 5499 ####[facility] [place] [address], [facility] [place] Urea nitrogen mass conc 16 mg/dL Normal 7-25 [facility] Comment on above: Order Comment: No: D o not add to previous draw Performed By: #### 8 5499 ####[facility] [facility].[address] CBC COMPLETE BLOOD COUNTon 0 - Erythrocyte distribution width Auto Ratio (RBC) 14.2 % Normal 11.5-15.0 [facility] Comment on above: Order Comment: No: D o not add to previous draw Performed By: #### 8 5499 ####[facility] [place] [address], [facility] [place] Hematocrit Auto Volume Fraction (Bld) 36.9 % Normal 36.0-45.0 [facility] Comment on above: Order Comment: No: D o not add to previous draw Performed By: #### 8 5499 ####[facility] [place] [address], [facility] [place] Hemoglobin mass conc (Bld) 11.5 g/dL Low 12.0-15.0 [facility] Comment on above: Order Comment: No: D o not add to previous draw Performed By: #### 8 5499 ####[facility] MCH Auto Entitic mass (RBC) 31.1 pg Normal 27.0-33.0 [facility] Comment on above: Order Comment: No: D o not add to previous draw Performed By: #### 8 5499 ####[facility] MCHC Auto mass conc (RBC) 31.2 g/dL Low 32.0-35.0 [facility] Comment on above: Order Comment: No: D o not add to previous draw Performed By: #### 8 5499 ####[facility] MCV Auto Entitic volume (RBC) 99.7 fL High 82.0-98.0 [facility] Comment on above: Order Comment: No: D o not add to previous draw Performed By: #### 8 5499 ####[facility] Nucleated RBC/100 WBC Ratio (Bld) 0 % Normal 0-0 [facility] Comment on above: Order Comment: No: D o not add to previous draw Performed By: #### 8 5499 ####[facility] PLAT CNT 228 10*3/uL Normal 150-400 [facility] Comment on above: Order Comment: No: D o not add to previous draw Performed By: #### 8 5499 ####[facility] RBC Auto #/vol (Bld) 3.70 10*6/uL Low 3.80-5.00 [facility] Comment on above: Order Comment: No: D o not add to previous draw Performed By: #### 8 5499 ####[facility] [place] [address], [facility] [place] WBC Auto #/vol (Bld) 14.41 10*3/uL High 4.00-10.60 [facility] Comment on above: Order Comment: No: D o not add to previous draw Performed By: #### 8 5499 ####[facility] [place] [address], [facility] [place] MAGNESIUM BLOODon 06-29-2018 Magnesium mass conc 2.5 mg/dL Normal 1.9-2.7 [facility] Comment on above: Order Comment: No: D o not add to previous draw Performed By: #### 8 5499 ####[facility] [place] [address], [facility] [place] PHOSPHORUS BLOODon 8 Phosphate mass conc 1.7 mg/dL Low 2.5-5.0 [facility] Comment on above: Order Comment: No: D o not add to previous draw Performed By: #### 8 5499 ####[facility] [place] [address], [facility] [place] POC GLUCOSE LABon 06-29-2018 Glucose mass conc 134 mg/dL High 70-100 [facility] Comment on above: Performed By: #### 8 5499 ####[facility] [place] [address], [facility] [place] Glucose mass conc 168 mg/dL High 70-100 [facility] Comment on above: Performed By: #### 8 5499 ####[facility] [place] [address], [place] Glucose mass conc 169 mg/dL High 70-100 [facility] Comment on above: Performed By: #### 0 0121 ####[facility] [facility] [place] [address], [facility] [place] Glucose mass conc 180 mg/dL High 70-100 [facility] Comment on above: Performed By: #### 0 0121 ####[address] PORTABLE CHEST 1 VIEWon 06-09 PORTABLE CHEST 1 VIEW [facility] [place] [id number] Stacy ent Name: VIDHYA GIORDANO : 1940Sex: FAge: Race: WhiteMRN: [id number]. Location: [id number] Status: IVisit #: [id number] Date: 06/29/2018 7:00:00 AMCompleted Date: 06/29/2018 07:23 AMRequesting Provider: MARLIN DELGADO Attending Provider: MEG ABEBE Report Copy To: Signs & Symptoms: Elevated WBCHistory: Patient history not availableComments: R/O PneumoniaExam: PORTABLE CHEST 1 VIEWAccession #: [id number] ===PORTABLE CHEST 1 VIEW 06/29/2018 7:23 AM [...] findings. Electronically signed by:Rhoda Nicole. Transcribed by: [email or web address], User Resident: MARITA MCKEONElectronically Signed by: RHODA NICOLE @ 06/29/2018 09:45 AMI personally read this/these film(s) with this resident Normal [facility] Comment on above: Order Comment: R/O P neumonia *BLOOD CULTUREon 06-28-2018 Bacteria identified in Blood by Culture Clinical Report: (D) Specimen: BLOOD CULTURE Collected: 06/28/2018 18:45 Status: Final Last Updated: 07/04/2018 07:52 CULT RES (Final) No Growth Day 5 Normal [facility] Comment on above: Performed By: #### 0 0121 ####[facility] [facility].[address] BASIC METABOLIC PANELon 06-09 Calcium mass conc 8.6 mg/dL Normal 8.6-10.3 [facility] Comment on above: Order Comment: No: D o not add to previous drawNo collection time noted on specimen or requisition. The collection timerecorded is the time of receipt in the lab. Performed By: #### 0 0121 ####[facility] Chloride molar conc 106 mmol/L Normal 98-107 [facility] Comment on above: Order Comment: No: D o not add to previous drawNo collection time noted on specimen or requisition. The collection timerecorded is the time of receipt in the lab. Performed By: #### 0 0121 ####[facility] [facility] [place] [address], [facility] [place] CO2 molar conc 26 mmol/L Normal 21-31 [facility] Comment on above: Order Comment: No: D o not add to previous drawNo collection time noted on specimen or requisition. The collection timerecorded is the time of receipt in the lab. Performed By: #### 0 0121 ####[facility] [facility] [place] [address], [facility] [place] Creatinine mass conc 1.50 mg/dL High 0.60-1.20 [facility] Comment on above: Order Comment: No: D o not add to previous drawNo collection time noted on specimen or requisition. The collection timerecorded is the time of receipt in the lab. Performed By: #### 0 0121 ####[facility] [facility] [place] [address], [facility] [place] GFR/1.73 sq M predicted among blacks MDRD vol rate/area (S/P/Bld) 41 ml/min/1.73sq m Abnormal >60 [facility] Comment on above: Order Comment: No: D o not add to previous drawNo collection time noted on specimen or requisition. The collection timerecorded is the time of receipt in the lab. Result Comment: Calc ulation may not be valid for patients over 70 years Performed By: #### 0 0121 ####[facility] [facility] [place] [address], [facility] [place] GFR/1.73 sq M predicted among non-blacks MDRD vol rate/area (S/P/Bld) 33 ml/min/1.73sq m Abnormal >60 [facility] Comment on above: Order Comment: No: D o not add to previous drawNo collection time noted on specimen or requisition. The collection timerecorded is the time of receipt in the lab. Result Comment: Calc ulation may not be valid for patients over 70 years Performed By: #### 0 0121 ####[facility] [place] [address], [facility] [place] Glucose mass conc 170 mg/dL High 70-100 [facility] Comment on above: Order Comment: No: D o not add to previous drawNo collection time noted on specimen or requisition. The collection timerecorded is the time of receipt in the lab. Performed By: #### 0 0121 ####[facility] Potassium molar conc 4.0 mmol/L Normal 3.5-5.1 [facility] Comment on above: Order Comment: No: D o not add to previous drawNo collection time noted on specimen or requisition. The collection timerecorded is the time of receipt in the lab. Performed By: #### 0 0121 ####[facility] Sodium molar conc 137 mmol/L Normal 136-145 [facility] Comment on above: Order Comment: No: D o not add to previous drawNo collection time noted on specimen or requisition. The collection timerecorded is the time of receipt in the lab. Performed By: #### 0 0121 ####[facility] Urea nitrogen mass conc 23 mg/dL Normal 7-25 [facility] Comment on above: Order Comment: No: D o not add to previous drawNo collection time noted on specimen or requisition. The collection timerecorded is the time of receipt in the lab. Performed By: #### 0 0121 ####[address] CBC W/DIFFon 06-28-2018 ABS BASOPHILS 0.0 10*3/uL Normal 0.0-0.2 [facility] Comment on above: Order Comment: No: D o not add to previous drawNo collection time noted on specimen or requisition. The collection timerecorded is the time of receipt in the lab. Performed By: #### 0 0121 ####[facility] ABS IMM GRANS 0.1 10*3/uL Normal 0.0-0.2 [facility] Comment on above: Order Comment: No: D o not add to previous drawNo collection time noted on specimen or requisition. The collection timerecorded is the time of receipt in the lab. Performed By: #### 0 0121 ####[facility] ABS NEUTROPHILS 9.5 10*3/uL High 1.6-7.6 [facility] Comment on above: Order Comment: No: D o not add to previous drawNo collection time noted on specimen or requisition. The collection timerecorded is the time of receipt in the lab. Performed By: #### 0 0121 ####[facility] Basophils Auto #/vol (Bld) 0.2 % Normal 0.0-1.0 [facility] Comment on above: Order Comment: No: D o not add to previous drawNo collection time noted on specimen or requisition. The collection timerecorded is the time of receipt in the lab. Performed By: #### 0 0121 ####[facility] Eosinophils Auto #/vol (Bld) 0.0 10*3/uL Normal 0.0-0.5 [facility] Comment on above: Order Comment: No: D o not add to previous drawNo collection time noted on specimen or requisition. The collection timerecorded is the time of receipt in the lab. Performed By: #### 0 0121 ####[address] Eosinophils/100 WBC Auto (Bld) 0.1 % Normal 0.0-6.0 [facility] Comment on above: Order Comment: No: D o not add to previous drawNo collection time noted on specimen or requisition. The collection timerecorded is the time of receipt in the lab. Performed By: #### 0 0121 ####[facility] Erythrocyte distribution width Auto Ratio (RBC) 14.0 % Normal 11.5-15.0 [facility] Comment on above: Order Comment: No: D o not add to previous drawNo collection time noted on specimen or requisition. The collection timerecorded is the time of receipt in the lab. Performed By: #### 0 0121 ####[place] [address] [address] Hematocrit Auto Volume Fraction (Bld) 35.7 % Low 36.0-45.0 [facility] Comment on above: Order Comment: No: D o not add to previous drawNo collection time noted on specimen or requisition. The collection timerecorded is the time of receipt in the lab. Performed By: #### 0 0121 ####[address] Hemoglobin mass conc (Bld) 11.9 g/dL Low 12.0-15.0 [facility] Comment on above: Order Comment: No: D o not add to previous drawNo collection time noted on specimen or requisition. The collection timerecorded is the time of receipt in the lab. Performed By: #### 0 0121 ####[place] [address] [address] IMMATURE GRANS 0.4 % Normal 0.0-1.0 [facility] Comment on above: Order Comment: No: D o not add to previous drawNo collection time noted on specimen or requisition. The collection timerecorded is the time of receipt in the lab. Performed By: #### 0 0121 ####[facility] Lymphocytes Auto #/vol (Bld) 2.5 10*3/uL Normal 1.2-4.0 [facility] Comment on above: Order Comment: No: D o not add to previous drawNo collection time noted on specimen or requisition. The collection timerecorded is the time of receipt in the lab. Performed By: #### 0 0121 ####[facility] Lymphocytes/100 WBC Auto (Bld) 18.4 % Low 20.0-45.0 [facility] Comment on above: Order Comment: No: D o not add to previous drawNo collection time noted on specimen or requisition. The collection timerecorded is the time of receipt in the lab. Performed By: #### 0 0121 ####[facility] MCH Auto Entitic mass (RBC) 31.7 pg Normal 27.0-33.0 [facility] Comment on above: Order Comment: No: D o not add to previous drawNo collection time noted on specimen or requisition. The collection timerecorded is the time of receipt in the lab. Performed By: #### 0 0121 ####[facility] MCHC Auto mass conc (RBC) 33.3 g/dL Normal 32.0-35.0 [facility] Comment on above: Order Comment: No: D o not add to previous drawNo collection time noted on specimen or requisition. The collection timerecorded is the time of receipt in the lab. Performed By: #### 0 0121 ####[address] MCV Auto Entitic volume (RBC) 95.2 fL Normal 82.0-98.0 [facility] Comment on above: Order Comment: No: D o not add to previous drawNo collection time noted on specimen or requisition. The collection timerecorded is the time of receipt in the lab. Performed By: #### 0 0121 ####[facility] Monocytes Auto #/vol (Bld) 1.3 10*3/uL High 0.1-1.0 [facility] Comment on above: Order Comment: No: D o not add to previous drawNo collection time noted on specimen or requisition. The collection timerecorded is the time of receipt in the lab. Performed By: #### 0 0121 ####[facility] MONOS 10.0 % Normal 5.0-12.0 [facility] Comment on above: Order Comment: No: D o not add to previous drawNo collection time noted on specimen or requisition. The collection timerecorded is the time of receipt in the lab. Performed By: #### 0 0121 ####[facility] Neutrophils/100 WBC Auto (Bld) 70.9 % Normal 40.0-72.0 [facility] Comment on above: Order Comment: No: D o not add to previous drawNo collection time noted on specimen or requisition. The collection timerecorded is the time of receipt in the lab. Performed By: #### 0 0121 ####[facility] Nucleated RBC/100 WBC Ratio (Bld) 0 % Normal 0-0 [facility] Comment on above: Order Comment: No: D o not add to previous drawNo collection time noted on specimen or requisition. The collection timerecorded is the time of receipt in the lab. Performed By: #### 0 0121 ####[facility] [place] [address], [facility] [place] PLAT CNT 236 10*3/uL Normal 150-400 [facility] Comment on above: Order Comment: No: D o not add to previous drawNo collection time noted on specimen or requisition. The collection timerecorded is the time of receipt in the lab. Performed By: #### 0 0121 ####[facility] RBC Auto #/vol (Bld) 3.75 10*6/uL Low 3.80-5.00 [facility] Comment on above: Order Comment: No: D o not add to previous drawNo collection time noted on specimen or requisition. The collection timerecorded is the time of receipt in the lab. Performed By: #### 0 0121 ####[facility] WBC Auto #/vol (Bld) 13.43 10*3/uL High 4.00-10.60 [facility] Comment on above: Order Comment: No: D o not add to previous drawNo collection time noted on specimen or requisition. The collection timerecorded is the time of receipt in the lab. Performed By: #### 0 0121 ####[facility] MAGNESIUM BLOODon 06-28-2018 Magnesium mass conc 1.7 mg/dL Low 1.9-2.7 [facility] Comment on above: Order Comment: No: D o not add to previous drawNo collection time noted on specimen or requisition. The collection timerecorded is the time of receipt in the lab. Performed By: #### 1 0070, [id number], [id number] ####[facility] PHOSPHORUS BLOODon 8 Phosphate mass conc 3.4 mg/dL Normal 2.5-5.0 [facility] Comment on above: Order Comment: No: D o not add to previous drawNo collection time noted on specimen or requisition. The collection timerecorded is the time of receipt in the lab. Performed By: #### 1 0070, [id number], [id number] ####[facility] [place] [address], [facility] [place] POC GLUCOSE LABon 06-28-2018 Glucose mass conc 166 mg/dL High 70-100 [facility] Comment on above: Performed By: #### 0 0121 ####[facility] [place] [address], [facility] [place] Glucose mass conc 168 mg/dL High 70-100 [facility] Comment on above: Performed By: #### 0 0121 ####[place] [address] [place] [address], [facility] [place] Glucose mass conc 141 mg/dL High 70-100 [facility] Comment on above: Performed By: #### 0 0121 ####[facility] [place] [address], [facility] [place] Glucose mass conc 180 mg/dL High 70-100 [facility] Comment on above: Performed By: #### 8 5499 ####[address] PORTABLE CHEST 1 VIEWon 06-09 PORTABLE CHEST 1 VIEW [facility] [place] [id number] Stacy ent Name: VIDHYA GIORDANO : 1940Sex: FAge: Race: WhiteMRN: [id number]. Location: [id number] Status: IVisit #: [id number] Date: 06/28/2018 6:35:00 PMCompleted Date: 06/28/2018 07:38 PMRequesting Provider: VINICIO REAVES Attending Provider: MEG ABEBE Report Copy To: Signs & Symptoms: FeverHistory: Patient history not availableComments: R/O InfiltratesExam: PORTABLE CHEST 1 VIEWAccession #: [id number] ===PORTABLE CHEST 1 VIEW 06/28/2018 7:38 PM [...] findings. Electronically signed by:Rhoda Nicole. Transcribed by: [email or web address], User Resident: MARITA MCKEONElectronically Signed by: RHODA NICOLE @ 06/29/2018 09:22 AMI personally read this/these film(s) with this resident Normal [facility] Comment on above: Order Comment: R/O I nfiltrates URINALYSIS REFLEXon 06-28-20 18 APPEARANCE CLEAR Normal CLEAR [facility] Comment on above: Order Comment: No: D o not add to previous drawCriteria for reflexing a culture was not met. Please call the lab [id number] within 24 hours of collection time if culture is needed Performed By: #### 0 0121 ####[facility] [place] [address], [place] BILIRUBIN Negative Normal NEGATIVE [facility] Comment on above: Order Comment: No: D o not add to previous drawCriteria for reflexing a culture was not met. Please call the lab [id number] within 24 hours of collection time if culture is needed Performed By: #### 0 0121 ####[facility] [address], [place] BLOOD Negative Normal NEGATIVE [facility] Comment on above: Order Comment: No: D o not add to previous drawCriteria for reflexing a culture was not met. Please call the lab [id number] within 24 hours of collection time if culture is needed Performed By: #### 0 0121 ####[facility] [place] [address], [place] COLOR YELLOW Normal YELLOW [facility] Comment on above: Order Comment: No: D o not add to previous drawCriteria for reflexing a culture was not met. Please call the lab [id number] within 24 hours of collection time if culture is needed Performed By: #### 0 0121 ####[facility] [place] [address], [place] GLUCOSE Negative Normal NEGATIVE [facility] Comment on above: Order Comment: No: D o not add to previous drawCriteria for reflexing a culture was not met. Please call the lab [id number] within 24 hours of collection time if culture is needed Performed By: #### 0 0121 ####[facility] [place] [address], [place] KETONE Negative Normal NEGATIVE [facility] Comment on above: Order Comment: No: D o not add to previous drawCriteria for reflexing a culture was not met. Please call the lab [id number] within 24 hours of collection time if culture is needed Performed By: #### 0 0121 ####[facility] [address], [facility] [place] Negative Normal NEGATIVE [facility] Comment on above: Order Comment: No: D o not add to previous drawCriteria for reflexing a culture was not met. Please call the lab [id number] within 24 hours of collection time if culture is needed Performed By: #### 0 0121 ####[facility] [place] [address], [facility] [place] MICRO NOT DONE negative chemical reactions unless requested in original order Normal [facility] Comment on above: Order Comment: No: D o not add to previous drawCriteria for reflexing a culture was not met. Please call the lab [id number] within 24 hours of collection time if culture is needed Performed By: #### 0 0121 ####[address] [place] [address], [facility] [place] NITRITE Negative Normal NEGATIVE [facility] Comment on above: Order Comment: No: D o not add to previous drawCriteria for reflexing a culture was not met. Please call the lab [id number] within 24 hours of collection time if culture is needed Performed By: #### 0 0121 ####[place] [address] [facility] [place] [address], [facility] [place] PH 5.0 Normal 5.0-8.0 [facility] Comment on above: Order Comment: No: D o not add to previous drawCriteria for reflexing a culture was not met. Please call the lab [id number] within 24 hours of collection time if culture is needed Performed By: #### 0 0121 ####[facility] [place] [address], [facility] [place] Protein mass conc Negative Normal NEGATIVE [facility] Comment on above: Order Comment: No: D o not add to previous drawCriteria for reflexing a culture was not met. Please call the lab [phone] within 24 hours of collection time if culture is needed Performed By: #### 0 0121 ####[facility]3000 [facility].[address] SPEC GRAV 1.013 Low 1.015-1.020 [facility] Comment on above: Order Comment: No: D o not add to previous drawCriteria for reflexing a culture was not met. Please call the lab [id number] within 24 hours of collection time if culture is needed Performed By: #### 0 0121 ####[place] [address] [facility].[address] APTTon 06-27-2018 aPTT Coag time (Bld) 33.7 s Normal 25.0-35.0 [facility] Comment on above: Result Comment: ALL RESULTS [...] THIS PURPOSE. Performed By: #### 5 6101, 13727 ####[place] [address] [facility].[address] POC GLUCOSE LABon 06-27-2018 Glucose mass conc 164 mg/dL High 70-100 [facility] Comment on above: Performed By: #### 8 5499 ####[address] Glucose mass conc 194 mg/dL High 70-100 [facility] Comment on above: Performed By: #### 8 5499 ####[place] [address] [facility] [place] [address], [facility] [place] Glucose mass conc 115 mg/dL High 70-100 [facility] Comment on above: Performed By: #### 8 5499 ####[address] [place] [address], [facility] [place] PROTHROMBIN TIMEon 8 INR Coag RelTime (PPP) 1.07 {INR} Normal 0.91-1.16 [facility] Comment on above: Result Comment: ACCC P RECOMMENDED INR FOR WARFARIN THERAPY CONDITION INRPROPHYLAXIS OF VENOUS THROMBOSIS 2-3(HIGH-RISK SURGERY)TREATMENT OF VENOUS THROMBOSIS 2-3TREATMENT OF PULMONARY EMBOLISM 2-3PREVENTION OF SYSTEMIC EMBOLISM: 2-3 ACUTE MYOCARDIAL INFARCTION TISSUE HEART VALVES VALVULAR HEART DISEASE ATRIAL FIBRILLATION RECURRENT SYSTEMIC EMBOLISMMECHANICAL HEART VALVE 2.5-3.5 FROM: ORAL ANTICOAGULANTS. MECHANISM OF ACTION, CLINICALEFFECTIVENESS, AND OPTIMAL THERAPEUTIC RANGE. [id number]. Performed By: #### 5 6101, 60242 ####[facility]3000 [facility].[address] Prothrombin time (PT) Coag time (PPP) 13.9 s Normal 12.3-14.8 [facility] Comment on above: Result Comment: ALL RESULTS MUST BE INTERPRETED WITH RESPECT TO BLOOD DRAWING ARTIFACTOR DILUTION ERROR OF ANTICOAGULANT AT THE TIME OF SAMPLING. Performed By: #### 5 6101, 60449 ####[facility]3000 [facility].[address] CBC W/DIFFon 05-24-2018 ABS BASOPHILS 0.1 10*3/uL Normal 0.0-0.2 [facility] Comment on above: Performed By: #### 5 0103 ####[facility] [facility] [place] [address], [facility] [place] ABS IMM GRANS 0.1 10*3/uL Normal 0.0-0.2 [facility] Comment on above: Performed By: #### 5 0103 ####[facility] [facility] [place] [address], [facility] [place] ABS NEUTROPHILS 4.6 10*3/uL Normal 1.6-7.6 [facility] Comment on above: Performed By: #### 5 0103 ####[facility] [place] [address], [facility] [place] Basophils Auto #/vol (Bld) 0.7 % Normal 0.0-1.0 [facility] Comment on above: Performed By: #### 5 0103 ####[facility] [place] [address], [facility] [place] Eosinophils Auto #/vol (Bld) 0.5 10*3/uL Normal 0.0-0.5 [facility] Comment on above: Performed By: #### 5 0103 ####[facility] [facility] Eosinophils/100 WBC Auto (Bld) 5.2 % Normal 0.0-6.0 [facility] Comment on above: Performed By: #### 5 0103 ####[facility]3000 [facility].[address] Erythrocyte distribution width Auto Ratio (RBC) 13.8 % Normal 11.5-15.0 [facility] Comment on above: Performed By: #### 5 0103 ####[facility]3000 [facility].[address] Hematocrit Auto Volume Fraction (Bld) 40.0 % Normal 36.0-45.0 [facility] Comment on above: Performed By: #### 5 3 ####[facility] Hemoglobin mass conc (Bld) 13.0 g/dL Normal 12.0-15.0 [facility] Comment on above: Performed By: #### 3 ####[facility] IMMATURE GRANS 0.6 % Normal 0.0-1.0 [facility] Comment on above: Performed By: #### 102 ####[facility] Lymphocytes Auto #/vol (Bld) 3.1 10*3/uL Normal 1.2-4.0 [facility] Comment on above: Performed By: #### 102 ####[facility] Lymphocytes/100 WBC Auto (Bld) 33.5 % Normal 20.0-45.0 [facility] Comment on above: Performed By: #### 102 ####[place] [address] [address] MCH Auto Entitic mass (RBC) 31.9 pg Normal 27.0-33.0 [facility] Comment on above: Performed By: #### 5 102 ####[facility] MCHC Auto mass conc (RBC) 32.5 g/dL Normal 32.0-35.0 [facility] Comment on above: Performed By: #### 102 ####[facility] MCV Auto Entitic volume (RBC) 98.0 fL Normal 82.0-98.0 [facility] Comment on above: Performed By: #### 102 ####[place] [address] [address] Monocytes Auto #/vol (Bld) 1.0 10*3/uL Normal 0.1-1.0 [facility] Comment on above: Performed By: #### 102 ####[facility]3000 [facility].[address] MONOS 10.3 % Normal 5.0-12.0 [facility] Comment on above: Performed By: #### 102 ####[facility]3000 [facility].[address] Neutrophils/100 WBC Auto (Bld) 49.7 % Normal 40.0-72.0 [facility] Comment on above: Performed By: #### 102 ####[facility] Nucleated RBC/100 WBC Ratio (Bld) 0 % Normal 0-0 [facility] Comment on above: Performed By: #### 102 ####[facility] PLAT CNT 258 10*3/uL Normal 150-400 [facility] Comment on above: Performed By: #### 102 ####[facility] RBC Auto #/vol (Bld) 4.08 10*6/uL Normal 3.80-5.00 [facility] Comment on above: Performed By: #### 102 ####[facility]3000 [facility].[address] WBC Auto #/vol (Bld) 9.35 10*3/uL Normal 4.00-10.60 [facility] Comment on above: Performed By: #### 102 ####[facility] COMP METABOLIC PANELon 05-24 Albumin mass conc 4.1 g/dL Normal 3.5-5.7 [facility] Comment on above: Performed By: #### 0 0121 ####[facility] [place] [address], [facility] ALKALINE PHOSPH 64 IU/L Normal 34-104 [facility] Comment on above: Performed By: #### 0 0121 ####[facility] [place] [address], [facility] [place] ALT enzyme act/vol 26 U/L Normal 7-52 [facility] Comment on above: Performed By: #### 0 0121 ####[facility] [place] [address], [facility] [place] AST enzyme act/vol 32 U/L Normal 13-39 [facility] Comment on above: Performed By: #### 0 0121 ####[facility] [place] [address], [facility] [place] Bilirubin mass conc 0.4 mg/dL Normal 0.3-1.0 [facility] Comment on above: Performed By: #### 0 0121 ####[facility] [place] [address], [facility] [place] Calcium mass conc 10.2 mg/dL Normal 8.6-10.3 [facility] Comment on above: Performed By: #### 0 0121 ####[facility] [place] [address], [facility] [place] Chloride molar conc 102 mmol/L Normal 98-107 [facility] Comment on above: Performed By: #### 0 0121 ####[facility] [place] [address], [facility] [place] CO2 molar conc 24 mmol/L Normal 21-31 [facility] Comment on above: Performed By: #### 0 0121 ####[facility] [place] [address], [facility] [place] Creatinine mass conc 1.41 mg/dL High 0.60-1.20 [facility] Comment on above: Performed By: #### 0 0121 ####[facility]3000 [facility] [place] [address], [facility] [place] GFR/1.73 sq M predicted among blacks MDRD vol rate/area (S/P/Bld) 44 ml/min/1.73sq m Abnormal >60 [facility] Comment on above: Result Comment: Calc ulation may not be valid for patients over 70 years Performed By: #### 0 0121 ####[facility] [place] [address], [facility] [place] GFR/1.73 sq M predicted among non-blacks MDRD vol rate/area (S/P/Bld) 36 ml/min/1.73sq m Abnormal >60 [facility] Comment on above: Result Comment: Calc ulation may not be valid for patients over 70 years Performed By: #### 0 0121 ####[facility] [facility] [place] [address], [facility] [place] Glucose mass conc 129 mg/dL High 70-100 [facility] Comment on above: Performed By: #### 0 0121 ####[facility] [place] [address], [facility] [place] Potassium molar conc 5.1 mmol/L Normal 3.5-5.1 [facility] Comment on above: Performed By: #### 0 0121 ####[facility] [facility] [place] [address], [facility] [place] Protein mass conc 7.6 g/dL Normal 6.0-8.3 [facility] Comment on above: Performed By: #### 0 0121 ####[facility] [place] [address], [facility] [place] Sodium molar conc 134 mmol/L Low 136-145 [facility] Comment on above: Performed By: #### 0 0121 ####[facility] [place] [address], [facility] [place] Urea nitrogen mass conc 25 mg/dL Normal 7-25 [facility] Comment on above: Performed By: #### 0 0121 ####[facility] [place] [address], [facility] [place] Progress Noteon 12-02-2017 HIM IP Note OR Pressing Machine Operator Normal [facility] HIM IP Note OR Pressing Machine Operator Normal [facility] Vital Signs Date Time Vital Sign Value Performing Clinician López saldana 05-03-2024 13:14-0400 Body height 152.4 cm MD Kael Adkins Work Phone: [facility] Health 05-03-2024 13:140400 Body mass index (BMI) [Ratio] 31.5 kg/m2 MD Kael Adkins Work Phone: [facility] 05-03-2024 13:140400 Body weight 73.2 kg MD Kael Adkins Work Phone: [facility] 05-03-2024 13:02-0400 Body temperature 97.3 [degF] MD Kael Adkins Work Phone: [facility] 05-03-2024 13:02-0400 Diastolic blood pressure 59 mm[Hg] MD Kael Adkins Work Phone: [facility] 05-03-2024 13:02-0400 Heart rate 56 /min MD Kael Adkins Work Phone: [facility] 05-03-2024 13:02-0400 Respiratory rate 20 /min MD Kael Adkins Work Phone: [facility] 05-03-2024 13:02-0400 Systolic blood pressure 106 mm[Hg] MD Kael Adkins Work Phone: [facility] Encounters Encounter Date Encounter Type Care Provider Facility Start: 07-09-2025 ambulatory CONVERSION PROVIDER [facility] Start: 07-08-2025 End: 07-11-2025 Emergency department patient visit CONVERSION PROVIDER [facility] Start: 07-08-2025 End: 07-08-2025 ambulatory Jackelyn Arreola [facility] Work Phone: Start: 07-08-2025 End: 07-08-2025 Departed Referred Jackelyn Arreola MD -[facility] Start: 03-07-2025 End: 03-07-2025 ambulatory Kael Adkins [facility] Work Phone: Start: 03-07-2025 End: 03-07-2025 Departed Referred Kael Adkins MD Work Phone: [facility] Path Spec [facility] Start: 03-05-2025 End: 03-05-2025 ambulatory STACIA KELLER [facility] Start: 05-03-2024 End: 05-03-2024 ambulatory MD Kael Adkins Work Phone: [facility] Work Phone: Start: 05-03-2024 End: 05-03-2024 Discharged Recurring MD Kael Akdins Work Phone: [facility] Work Phone: Start: 12-13-2023 End: 12-13-2023 Clinical Support Anna Kumar [facility] Work Phone: [facility] Comment on above: Bilateral impacted c erumen (Primary Dx) Start: 01-22-2023 End: 01-22-2023 ambulatory STACIA KELLER Facility:[facility] Start: 11-16-2022 End: 11-17-[address] CROWLEY LISTED REQUEST Facility:[facility] Start: 09-16-2022 ambulatory STACIA KELLER Facility: [facility] Start: 08-28-2022 End: 08-29-2022 ambulatory KAEL ADKINS Facility:[facility] Start: 02-11-2022 End: 02-12-[address] DOCTOR JUAREZ Facility:[facility] Start: 02-08-2022 End: 02-08-[address] KAEL ADKINS . Facility:[facility] Start: 02-04-2022 ambulatory STACIA KELLER Facility: [facility] Start: 02-01-2022 End: 02-01-[address] KAEL ADKINS . Facility:[facility] Start: 06-27-2018 End: 07-19-2018 Evaluation and management of inpatient TOMERDICKSON MIS Facility:[facility] Start: 05-24-2018 End: 05-25-2018 Patient encounter TOMERDICKSON MIS Facility:[facility] Start: 04-19-2018 End: 04-20-2018 Patient encounter TOMERDICKSON MIS Facility:[facility] Procedures Date Procedure Procedure Detail [...] on above: Performed By: #### 5 [id number] ####[address] Start: 06-28-2018 INTRODUCE OF OTH THE RAP SUBST INTO RESP TRACT, VIA OPENING MEG ABEBE Start: 06-27-2018 EXCISION OF ABD SUBC U/FASCIA, OPEN APPROACH MEG ABEBE Start: 06-27-2018 REPAIR SMALL INTESTI NE, OPEN APPROACH MEG ABEBE Plan of Treatment Date Care Activity Detail Author Start: 07-08-2025 Bacteria identified in Blood by Culture Blood Culture [facility] Start: 07-08-2025 [facility] Start: 03-07-2025 Bacteria identified in Urine by Culture Urine Culture [facility] Start: 03-07-2025 Urine culture [facility] Start: 2004 Pneumococcal Vaccine: 65+ Years (1 - PCV) Pneumococcal Vaccine: 65+ Years (1 - PCV) [facility] Payers Date Payer Category Payer Self-pay [id number] 2014 Private Health Insurance [id number] 1959 Medicare [id number] 1959 Self-pay [id number] 1959 Unknown 1959 Unknown [id number] 1939 Unknown [id number] 2.16.8 40.1.132054.3.579.2.647 1939 Unknown [id number] 2.16.8 40.1.371089.3.579.2.647 1939 Unknown [id number] 2.16.8 40.1.531366.3.579.2.647 1939 Unknown [id number] 2.16.84 0.1.849151.3.579.2.718 1939 Unknown [id number] 2.16.84 0.1.294405.3.579.2.593 1939 Unknown [id number] 2.16.84 0.1.008596.3.579.2.593 1939 Unknown [id number] 2.16.84 0.1.928169.3.579.2.593 1939 Unknown [id number] 2.16.84 0.1.280744.3.579.2.593 1939 Unknown [id number] 2.16.84 0.1.285105.3.579.2.593 1939 Unknown [id number] 2.16.84 0.1.887428.3.579.2.593 1939 Unknown [id number] 2.16.84 0.1.023516.3.579.2.593 1939 Unknown [id number] 2.16.84 0.1.549767.3.579.2.1259 1939 Unknown [id number] 2.16. 840.1.287112.3.579.2.1286 1939 Unknown [id number] 2.16. 840.1.523081.3.579.2.1286 1939 Unknown [id number] 2.16. 840.1.559715.3.579.2.1286 1939 Unknown [id number] 2.16. 840.1.786278.3.579.2.1286 1939 Unknown [id number] 2.16. 840.1.705083.3.579.2.1286 Medicare [id number] Unknown [id number] 2.16.8 40.1.946745.3.579.2.531 Unknown [id number] 2.16.8 40.1.843409.3.579.2.531 Social History Date Type Detail Facility Tobacco smoking status NHIS Tobacco smoking consumption unknown [facility] Start: 1940 Sex Assigned At Not on file [facility] Gender identity Not on file [facility] Start: 05-03-2024 Tobacco smoking status NHIS Ex-smoker (finding) [facility] Start: 1940 Sex Assigned At Female [facility] Start: 03-09-2025 Sex Female (finding) [facility] Clinical Notes 10-17-2020 to 05-03-2024 Note Date & Type Note Facility 05-03-2024 Progress note Note Date/Time May 03, 2024 1:14pm [facility] [address] [place] [address] Wound Center Provider Note Signed Patient: Vidhya Giordano MR#: [id number] : 1940 Acct:[id number] Age/Sex: 83 / F Copies to: MD Wenyd Verdugo, DG~ HPI Date of Visit Date of Visit: Date of Service: 05/03/2024 Time of Service: 13:12 Narrative HPI: Vidhya is an 81 year old female presenting to [facility] wound care program for afollow up [...] 05/19/23 stable again, was apparently dc'd from [facility] and so we will order suppliesfrom a [...] are happy with this order, spoke about [facility] again and they will think about getting [...] Intensity: 7 Wound/Ulcer History Mode of Arrival/ Scrap Preparation Supervisor: Family Assistive Device Used Today: Wheelchair Lives with:: Children Appetite Description: Within Normal Limits Who helps w/ dressing change?: Home Health Why Do You Need Help?: Can't Reach Ulcer, Limited mobility, Unsafe leave home byself and Taxing effort to leave home Smoking Status: Former smoker [facility] Medical History (Updated 07/14/23 @ 13:12 by [...] Full Bed Appearance: Beefy Red, Hypergranulation and Deale Percent of Wound Bed Granulated/Red: 100 Percent [...] By: <Electronically signed by DG Scott> 05/03/241313 [facility] Work Phone: 1(227) 574-908804-24-2024 Progress note Author Wendy Scott [facility] March 01, 2024 2:57pm Note Date/Time March 01, 2024 2:5 8pm [facility] [address] [place] [address] Wound Center Provider Note Signed Patient: Vidhya Giordano MR#: [id number] : 1940 Acct:[id number] Age/Sex: 83 / F Copies to: MD Wendy Verdugo, SADDLE CUTTER~ HPI Date of Visit Date of Visit: Date of Service: 03/01/2024 Time of Service: 14:55 Narrative HPI: Vidhya is an 81 year old female presenting to [facility] wound care program for afollow up [...] 05/19/23 stable again, was apparently dc'd from [facility] and so we will order suppliesfrom a [...] are happy with this order, spoke about [facility] again and they will think about getting [...] the time Wound/Ulcer History Mode of Arrival/ Scrap Preparation Supervisor: Family Assistive Device Used Today: Wheelchair Lives with:: Children Appetite Description: Within Normal Limits Who helps w/ dressing change?: Home Health Why Do You Need Help?: Can't Reach Ulcer, Limited mobility, Unsafe leave home byself and Taxing effort to leave home Smoking Status: Former smoker [facility] Medical History (Updated 07/14/23 @ 13:12 by [...] mg tablet,delayed release 40 mg PO DAILY 02/15/18 [History Confirmed 11/03/23] triamcinolone acetonide 0.1 % [...] Thickness: Full Bed Appearance: Beefy Red and Deale Percent of Wound Bed Granulated/Red: 100 Percent [...] <Electronically signed by DG Scott> 03/01/24 1457 [facility] Work Phone: 1(229) 804-357602-21-2024 Progress note Author Wendy Scott [facility] December 29, 2023 1:12pm Note Date/Time December 29, 2023 1:34pm [facility] [address] [place] [address] Wound Center Provider Note Signed Patient: Vidhya Giordano MR#: [id number] : 1940 Acct:[id number] Age/Sex: 83 / F Copies to: MD Wendy Verdugo APRN~ HPI Date of Visit Date of Visit: Date of Service: 12/29/2023 Time of Service: 13:10 Narrative HPI: Vidhya is an 81 year old female presenting to [facility] wound care program for afollow up [...] 05/19/23 stable again, was apparently dc'd from [facility] and so we will order suppliesfrom a [...] Intensity: 0 Wound/Ulcer History Mode of Arrival/ Scrap Preparation Supervisor: Family Assistive Device Used Today: Wheelchair Lives with:: Children Appetite Description: Within Normal Limits Who helps w/ dressing change?: Home Health Why Do You Need Help?: Can't Reach Ulcer, Limited mobility, Unsafe leave home byself and Taxing effort to leave home Smoking Status: Former smoker [facility] Medical History (Updated 07/14/23 @ 13:12 by [...] Thickness: Full Bed Appearance: Beefy Red and Deale Percent of Wound Bed Granulated/Red: 100 Percent [...] by DG Scott> 12/29/23 1312 [facility] Work Phone: 1(523) 967-846602-05-2024 History of Present illness Narrative* ZORA Infante [...] Pt to return prn [id number] Progress note Author Wendy Scott [facility] November 03, 2023 1:09pm Note Date/Time November 03, 2023 1:09pm [facility] [address] [place] [address] Wound Center Provider Note Signed Patient: Vidhya Giordano MR#: [id number] : 1940 Acct:[id number] Age/Sex: 83 / F Copies to: MD Wendy Verdugo APRN~ HPI Date of Visit Date of Visit: Date of Service: 11/03/2023 Time of Service: 13:08 Narrative HPI: Vidhya is an 81 year old female presenting to [facility] wound care program for afollow up [...] 05/19/23 stable again, was apparently dc'd from [facility] and so we will order suppliesfrom a [...] Intensity: 0 Wound/Ulcer History Mode of Arrival/ Scrap Preparation Supervisor: Family Assistive Device Used Today: Wheelchair Lives with:: Children Appetite Description: Within Normal Limits Who helps w/ dressing change?: Home Health Why Do You Need Help?: Can't Reach Ulcer, Limited mobility, Unsafe leave home byself and Taxing effort to leave home Smoking Status: Former smoker [facility] Medical History (Updated 07/14/23 @ 13:12 by [...] Thickness: Full Bed Appearance: Beefy Red and Deale Percent of Wound Bed Granulated/Red: 100 Percent [...] <Electronically signed by DG Scott> 11/03/23 1309 [facility] Work Phone: 1(673) 706-741411-01-2023 Progress note Author Wendy Scott [facility] September 08, 2023 1:10pm Note Date/Time September 08, 2023 1 :10pm [facility] [address] [place] [address] Wound Center Provider Note Signed Patient: Vidhya Giordano MR#: [id number] : 1940 Acct:[id number] Age/Sex: 83 / F Copies to: MD Wendy Verdugo APRN~ HPI Date of Visit Date of Visit: Date of Service: 09/08/2023 Time of Service: 13:08 Narrative HPI: Vidhya is an 81 year old female presenting to [facility] wound care program for afollow up [...] 05/19/23 stable again, was apparently dc'd from [facility] and so we will order suppliesfrom a [...] Intensity: 0 Wound/Ulcer History Mode of Arrival/ Scrap Preparation Supervisor: Family Assistive Device Used Today: Wheelchair Lives with:: Children Appetite Description: Within Normal Limits Who helps w/ dressing change?: Home Health Why Do You Need Help?: Can't Reach Ulcer, Limited mobility, Unsafe leave home byself and Taxing effort to leave home Smoking Status: Former smoker [facility] Medical History (Updated 07/14/23 @ 13:12 by [...] Thickness: Full Bed Appearance: Beefy Red and Deale Percent of Wound Bed Granulated/Red: 100 Percent [...] <Electronically signed by DG Scott> 09/08/23 1310 [facility] Work Phone: 1(996) 163-921309-06-2023 Progress note Author Wendy Scott [facility] July 14, 2023 1:12pm Note Date/Time July 14, 2023 1:13pm [facility] [address] [place] [address] Wound Center Provider Note Signed Patient: Vidhya Giordano MR#: [id number] : 1940 Acct:[id number] Age/Sex: 83 / F Copies to: MD Wendy Verdugo APRN~ HPI Date of Visit Date of Visit: Date of Service: 07/14/2023 Time of Service: 13:10 Narrative HPI: Vidhya is an 81 year old female presenting to [facility] wound care program for afollow up [...] 05/19/23 stable again, was apparently dc'd from [facility] and so we will order suppliesfrom a [...] Intensity: 0 Wound/Ulcer History Mode of Arrival/ Scrap Preparation Supervisor: Family Assistive Device Used Today: Wheelchair Lives with:: Children Appetite Description: Within Normal Limits Who helps w/ dressing change?: Home Health Why Do You Need Help?: Can't Reach Ulcer, Limited mobility, Unsafe leave home byself and Taxing effort to leave home Smoking Status: Former smoker [facility] Medical History (Updated 07/14/23 @ 13:12 by [...] Thickness: Full Bed Appearance: Beefy Red and Deale Percent of Wound Bed Granulated/Red: 100 Percent [...] by DG Scott> 07/14/23 1312 [facility] Work Phone: 1(553) 884-782207-12-2023 Progress note Author Wendy Scott [facility] May 19, 2023 1:22pm Note Date/Time May 19, 2023 1:22 pm [facility] [address] [place] [address] Wound Center Provider Note Signed Patient: Vidhya Giordano MR#: [id number] : 1940 Acct:[id number] Age/Sex: 82 / F Copies to: MD Wendy Verdugo, SADDLE CUTTER~ HPI Date of Visit Date of Visit: Date of Service: 05/19/2023 Time of Service: 13:19 Narrative HPI: Vidhya is an 81 year old female presenting to [facility] wound care program for afollow up [...] 05/19/23 stable again, was apparently dc'd from [facility] and so we will order suppliesfrom a dme supplier, orders the same since the daughter prefers it that way, 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, 8 week appt Subjective Pain Abdomen: Pain Intensity: 0 Wound/Ulcer History Mode of Arrival/ Scrap Preparation Supervisor: Family Assistive Device Used Today: Wheelchair Lives with:: Children Appetite Description: Within Normal Limits Who helps w/ dressing change?: Home Health Why Do You Need Help?: Can't Reach Ulcer, Limited mobility, Unsafe leave home byself and Taxing effort to leave home Smoking Status: Former smoker [facility] Medical History (Updated 06/03/22 @ 11:55 by [...] wound) Thickness: Full Bed Appearance: Beefy Red, Deale and Hypergranulation Percent of Wound Bed Granulated/Red: [...] <Electronically signed by DG Scott> 05/19/23 1322 [facility] Work Phone: 1(738) 952-368005-17-2023 Progress note Author Wendy Scott [facility] March 24, 2023 1:44pm Note Date/Time March 24, 2023 1:44p m [facility] [address] [place] [address] Wound Center Provider Note Signed Patient: Vidhya Giordano MR#: [id number] : 1940 Acct:[id number] Age/Sex: 82 / F Copies to: MD Wendy Verdugo, SADDLE CUTTER~ HPI Date of Visit Date of Visit: Date of Service: 03/24/2023 Time of Service: 13:42 Narrative HPI: Vidhya is an 81 year old female presenting to [facility] wound care program for afollow up [...] from shingles Wound/Ulcer History Mode of Arrival/ Scrap Preparation Supervisor: Family Assistive Device Used Today: Wheelchair Lives with:: Children Appetite Description: Within Normal Limits Who helps w/ dressing change?: Home Health Why Do You Need Help?: Can't Reach Ulcer, Limited mobility, Unsafe leave home byself and Taxing effort to leave home Smoking Status: Former smoker [facility] Medical History (Updated 06/03/22 @ 11:55 by [...] (Non-healing surgical wound) Thickness: Full Bed Appearance: Deale and Rolled Edges Percent of Wound Bed [...] <Electronically signed by DG Scott> 03/24/23 1344 [facility] Work Phone: 1(996) 864-306603-08-2023 Progress note Author Wendy Scott [facility] January 13, 2023 1:07pm Note Date/Time January 13, 2023 1:08 pm [facility] [address] [place] [address] Wound Center Provider Note Signed Patient: Vidhya Giordano MR#: [id number] : 1940 Acct:[id number] Age/Sex: 82 / F Copies to: MD Wendy Verdugo APRN~ HPI Date of Visit Date of Visit: Date of Service: 01/13/2023 Time of Service: 13:06 Narrative HPI: Vidhya is an 81 year old female presenting to [facility] wound care program for afollow up [...] Intensity: 7 Wound/Ulcer History Mode of Arrival/ Scrap Preparation Supervisor: Family Assistive Device Used Today: Wheelchair Lives with:: Children Appetite Description: Within Normal Limits Who helps w/ dressing change?: Home Health Why Do You Need Help?: Can't Reach Ulcer, Limited mobility, Unsafe leave home byself and Taxing effort to leave home Smoking Status: Former smoker [facility] Medical History (Updated 06/03/22 @ 11:55 by [...] (Non-healing surgical wound) Thickness: Full Bed Appearance: Deale and Rolled Edges Percent of Wound Bed [...] <Electronically signed by DG Scott> 01/13/23 1307 [facility] Work Phone: 1(115) 979-638201-11-2023 Progress note Author Wendy Scott [facility] November 18, 2022 11:26am Note Date/Time November 18, 2022 1 1:27am [facility] [address] [place] [address] Wound Center Provider Note Signed Patient: Vidhya Giordano MR#: [id number] : 1940 Acct:[id number] Age/Sex: 82 / F Copies to: MD Wendy Verdugo APRN~ HPI Date of Visit Date of Visit: Date of Service: 11/18/2022 Time of Service: 11:25 Narrative HPI: Vidhya is an 81 year old female presenting to [facility] wound care program for afollow up [...] from shingles Wound/Ulcer History Mode of Arrival/ Scrap Preparation Supervisor: Family Assistive Device Used Today: Wheelchair Lives with:: Children Appetite Description: Within Normal Limits Who helps w/ dressing change?: Home Health Why Do You Need Help?: Can't Reach Ulcer, Limited mobility, Unsafe leave home byself and Taxing effort to leave home Smoking Status: Former smoker [facility] Medical History (Updated 06/03/22 @ 11:55 by [...] (Non-healing surgical wound) Thickness: Full Bed Appearance: Deale and Rolled Edges Percent of Wound Bed [...] Signed By: <Electronically signed by DG Scott> 11/18/22 [facility] Work Phone: 1(339) 645-982711-16-2022 Progress note Author Wendy Scott [facility] September 23, 2022 11:25am Note Date/Time September 23, 2022 11:25am [facility] [address] [place] [address] Wound Center Provider Note Signed Patient: Vidhya Giordano MR#: [id number] : 1940 Acct:[id number] Age/Sex: 82 / F Copies to: MD Wendy Verdugo APRN~ HPI Date of Visit Date of Visit: Date of Service: 09/23/2022 Time of Service: 11:22 Narrative HPI: Vidhya is an 81 year old female presenting to [facility] wound care program for afollow up [...] Intensity: 0 Wound/Ulcer History Mode of Arrival/ Scrap Preparation Supervisor: Family Assistive Device Used Today: Wheelchair Lives with:: Children Appetite Description: Within Normal Limits Who helps w/ dressing change?: Home Health Why Do You Need Help?: Can't Reach Ulcer, Limited mobility, Unsafe leave home byself and Taxing effort to leave home Smoking Status: Former smoker [facility] Medical History (Updated 06/03/22 @ 11:55 by [...] (Non-healing surgical wound) Thickness: Full Bed Appearance: Deale and Rolled Edges Percent of Wound Bed [...] <Electronically signed by DG Scott> 09/23/22 1125 [facility] Work Phone: 1(360) 154-348409-21-2022 Progress note Author Wendy Scott [facility] July 29, 2022 11:35am Note Date/Time July 29, 2022 11:34am [facility] [address] [place] [address] Wound Center Provider Note Signed Patient: Vidhya Giordano MR#: [id number] : 1940 Acct:[id number] Age/Sex: 82 / F Copies to: MD Wendy Verdugo APRN~ HPI Date of Visit Date of Visit: Date of Service: 07/29/2022 Time of Service: 11:25 Narrative HPI: Vidhya is an 81 year old female presenting to [facility] wound care program for afollow up [...] Intensity: 6 Wound/Ulcer History Mode of Arrival/ Scrap Preparation Supervisor: Family Assistive Device Used Today: Wheelchair Lives with:: Children Appetite Description: Within Normal Limits Who helps w/ dressing change?: Home Health Why Do You Need Help?: Can't Reach Ulcer, Limited mobility, Unsafe leave home byself and Taxing effort to leave home Smoking Status: Former smoker [facility] Medical History (Updated 06/03/22 @ 11:55 by [...] wound) Thickness: Full Bed Appearance: Beefy Red, Deale and Rolled Edges Percent of Wound Bed [...] <Electronically signed by DG Scott> 07/29/22 1135 [facility] Work Phone: 1(323) 678-637207-27-2022 Progress note Author Wendy Scott [facility] June 03, 2022 11:56am Note Date/Time June 03, 2022 11:5 5am [facility] [address] [place] [address] Wound Center Provider Note Signed Patient: Vidhya Giordano MR#: [id number] : 1940 Acct:[id number] Age/Sex: 81 / F Copies to: MD Wendy Verdugo APRN~ HPI Date of Visit Date of Visit: Date of Service: 06/03/2022 Time of Service: 11:54 Narrative HPI: Vidhya is an 81 year old female presenting to [facility] wound care program for afollow up [...] from shingles Wound/Ulcer History Mode of Arrival/ Scrap Preparation Supervisor: Family Assistive Device Used Today: Wheelchair Lives with:: Children Appetite Description: Within Normal Limits Who helps w/ dressing change?: Home Health Why Do You Need Help?: Can't Reach Ulcer, Limited mobility, Unsafe leave home byself and Taxing effort to leave home Smoking Status: Former smoker [facility] Medical History (Updated 06/03/22 @ 11:55 by [...] wound) Thickness: Full Bed Appearance: Beefy Red, Deale and Hypergranulation Percent of Wound Bed Granulated/Red: [...] <Electronically signed by DG Scott> 06/03/22 1156 [facility] Work Phone: 1(750) 891-284006-01-2022 Progress note Author Wendy Scott [facility] April 08, 2022 1:14pm Note Date/Time April 08, 2022 1:14p m [facility] [address] [place] [address] Wound Center Provider Note Signed Patient: Vidhya Giordano MR#: [id number] : 1940 Acct:[id number] Age/Sex: 81 / F Copies to: MD Wendy Verdugo APRN~ HPI Date of Visit Date of Visit: Date of Service: 04/08/2022 Time of Service: 13:11 Narrative HPI: Vidhya is an 81 year old female presenting to [facility] wound care program for afollow up [...] Intensity: 0 Wound/Ulcer History Mode of Arrival/ Scrap Preparation Supervisor: Family Assistive Device Used Today: Wheelchair Lives with:: Children Appetite Description: Within Normal Limits Who helps w/ dressing change?: Home Health Why Do You Need Help?: Can't Reach Ulcer, Limited mobility, Unsafe leave home byself and Taxing effort to leave home Smoking Status: Former smoker [facility] Medical History (Updated 04/08/22 @ 13:13 by Wendy cSott APRN) Alzheimer disease Bipolar disorder Chronic pain [...] <Electronically signed by DG Scott> 04/08/22 [facility]14 [facility] Ctr Work Phone: 1(867) 566-466104-06-2022 Progress note Author Wendy Scott [facility] February 11, 2022 1:50pm Note Date/Time February 11, 2022 1:50 pm [facility] [address] [place] [address] Wound Center Provider Note Signed Patient: Vidhya Giordano MR#: [id number] : 1940 Acct:[id number] Age/Sex: 81 / F Copies to: MD Wendy Verdugo APRN~ HPI Date of Visit Date of Visit: Date of Service: 02/11/2022 Time of Service: 13:46 Narrative HPI: Vidhya is an 81 year old female presenting to [facility] wound care program for afollow up [...] from shingles Wound/Ulcer History Mode of Arrival/ Scrap Preparation Supervisor: Family Assistive Device Used Today: Wheelchair Lives with:: Children Appetite Description: Within Normal Limits Who helps w/ dressing change?: Home Health Why Do You Need Help?: Can't Reach Ulcer, Limited mobility, Unsafe leave home byself and Taxing effort to leave home Smoking Status: Former smoker [facility] Medical History (Updated 01/02/21 @ 15:16 by [...] Thickness: Full Bed Appearance: Beefy Red and Deale Percent of Wound Bed Granulated/Red: 90 Percent [...] <Electronically signed by DG Scott> 02/11/22 1350 [facility] Work Phone: 1(468) 860-378502-09-2022 Progress note Author Wendy Scott [facility] December 17, 2021 2:16pm Note Date/Time December 17, 2021 2 :16pm [facility] [address] [place] [address] Wound Center Provider Note Signed Patient: Vidhya Giordano MR#: [id number] : 1940 Acct:[id number] Age/Sex: 81 / F Copies to: MD Wendy Verdugo APRN~ HPI Date of Visit Date of Visit: Date of Service: 12/17/2021 Time of Service: 14:13 Narrative HPI: Vidhya is an 81 year old female presenting to [facility] wound care program for afollow up [...] is there Wound/Ulcer History Mode of Arrival/ Scrap Preparation Supervisor: Family Assistive Device Used Today: Wheelchair Lives with:: Children Appetite Description: Within Normal Limits Who helps w/ dressing change?: Home Health Why Do You Need Help?: Can't Reach Ulcer, Limited mobility, Unsafe leave home byself and Taxing effort to leave home Smoking Status: Former smoker [facility] Medical History (Updated 01/02/21 @ 15:16 by [...] Thickness: Full Bed Appearance: Beefy Red and Deale Percent of Wound Bed Granulated/Red: 100 Percent [...] By: <Electronically signed by DG Scott> 12/17/21 [facility] Work Phone: 1(718) 290-575811-29-2021 Progress note Author Wendy Scott [facility] October 06, 2021 11:31am Note Date/Time October 06, 2021 11:31am [facility] [address] [place] [address] Wound Center Provider Note Signed Patient: Vidhya Giordano MR#: [id number] : 1940 Acct:[id number] Age/Sex: 81 / F Copies to: MD Wendy Verdugo APRN~ HPI Date of Visit Date of Visit: Date of Service: 10/06/2021 Time of Service: : Narrative HPI: Vidhya is an 81 year old female presenting to [facility] wound care program for afollow up [...] is there Wound/Ulcer History Mode of Arrival/ Scrap Preparation Supervisor: Family Assistive Device Used Today: Wheelchair Lives with:: Children Appetite Description: Within Normal Limits Who helps w/ dressing change?: Home Health Why Do You Need Help?: Can't Reach Ulcer, Limited mobility, Unsafe leave home byself and Taxing effort to leave home Smoking Status: Former smoker [facility] Medical History (Updated 01/02/21 @ 15:16 by [...] ointment 1 applic TOPICAL DAILY #30 gm 02/15/18 [Rx Confirmed 06/23/21] acetaminophen 650 mg tablet,extended [...] Thickness: Full Bed Appearance: Beefy Red and Deale Percent of Wound Bed Granulated/Red: 100 Percent [...] by DG Scott> 10/06/21 1131 [facility] Work Phone: 1(369) 585-499610-11-2021 Progress note Author Wendy Scott [facility] August 18, 2021 11:42am Note Date/Time August 18, 2021 1 1:42am [facility] [address] [place] [address] Wound Center Provider Note Signed Patient: Vidhya Giordano MR#: [id number] : 1940 Acct:[id number] Age/Sex: 81 / F Copies to: MD Wendy Verdugo, SADDLE CUTTER~ HPI Date of Visit Date of Visit: Date of Service: 08/18/2021 Time of Service: 11:37 Narrative HPI: Vidhya is an 81 year old female presenting to [facility] wound care program for afollow up [...] is there Wound/Ulcer History Mode of Arrival/ Scrap Preparation Supervisor: Family Assistive Device Used Today: Wheelchair Lives with:: Children Appetite Description: Within Normal Limits Who helps w/ dressing change?: Home Health Why Do You Need Help?: Can't Reach Ulcer, Limited mobility, Unsafe leave home byself and Taxing effort to leave home Smoking Status: Former smoker [facility] Medical History (Updated 01/02/21 @ 15:16 by [...] mg(1,500 mg)-vitamin D3 800 unit chewable tablet ([id number] plus D) 1 tab PO DAILY 12/23/17 [...] Thickness: Full Bed Appearance: Beefy Red and Deale Percent of Wound Bed Granulated/Red: 100 Percent [...] by DG Scott> 08/18/21 1142 [facility] Work Phone: 1(726) 416-924308-16-2021 Progress note Author Wendy Scott [facility] June 23, 2021 11:37am Note Date/Time June 23, 2021 11 :37am [facility] [address] [place] [address] Wound Center Provider Note Signed Patient: Vidhya Giordano MR#: [id number] : 1940 Acct:[id number] Age/Sex: 81 / F Copies to: MD Wendy Verdugo APRN~ HPI Date of Visit Date of Visit: Date of Service: 06/23/2021 Time of Service: 11:35 Narrative HPI: Vidhya is an 81 year old female presenting to [facility] wound care program for a follow [...] is there Wound/Ulcer History Mode of Arrival/ Scrap Preparation Supervisor: Family Assistive Device Used Today: Wheelchair Lives with:: Children Appetite Description: Within Normal Limits Who helps w/ dressing change?: Home Health Why Do You Need Help?: Can't Reach Ulcer, Limited mobility, Unsafe leave home byself and Taxing effort to leave home Smoking Status: Former smoker [facility] Medical History (Updated 01/02/21 @ 15:16 by [...] mg(1,500 mg)-vitamin D3 800 unit chewable tablet (Sxvrlkjs785 plus D) 1 tab PO DAILY 12/23/17 [...] Thickness: Full Bed Appearance: Beefy Red and Deale Percent of Wound Bed Granulated/Red: 100 Percent [...] <Electronically signed by DG Scott> 06/23/21 1137 [facility] Work Phone: 1(384) 160-618006-21-2021 Progress note Author Wendy Scott [facility] April 28, 2021 11:22am Note Date/Time April 28, 2021 11:2 2am [facility] [address] [place] [address] Wound Center Provider Note Signed Patient: Vidhya Giordano MR#: [id number] : 1940 Acct:[id number] Age/Sex: 80 / F Copies to: MD Wendy Verdugo APRN~ HPI Date of Visit Date of Visit: Date of Service: 04/28/2021 Time of Service: 11:18 Narrative HPI: Vidhya is an 80 year old female presenting to [facility] wound care program for a follow [...] Intensity: 0 Wound/Ulcer History Mode of Arrival/ Scrap Preparation Supervisor: Family Assistive Device Used Today: Wheelchair Lives with:: Children Appetite Description: Within Normal Limits Who helps w/ dressing change?: Home Health Why Do You Need Help?: Can't Reach Ulcer, Limited mobility, Unsafe leave home byself and Taxing effort to leave home Smoking Status: Former smoker [facility] Medical History (Updated 01/02/21 @ 15:16 by Nichole Giordano, DG) Alzheimer disease Bipolar disorder Chronic pain Chronic [...] Thickness: Full Bed Appearance: Beefy Red and Deale Percent of Wound Bed Granulated/Red: 100 Percent [...] <Electronically signed by DG Scott> 04/28/21 1122 [facility] Work Phone: 1(356) 385-505505-10-2021 Progress note Author Wendy Scott [facility] March 17, 2021 11:35am Note Date/Time March 17, 2021 11:35 am [facility] [address] [place] [address] Wound Center Provider Note Signed Patient: Vidhya Giordano MR#: [id number] : 1940 Acct:[id number] Age/Sex: 80 / F Copies to: MD Wendy Verdugo APRN~ HPI Date of Visit Date of Visit: Date of Service: 03/17/2021 Time of Service: 11:31 Narrative HPI: Vidhya is an 80 year old female presenting to [facility] wound care program for a follow [...] is there Wound/Ulcer History Mode of Arrival/ Scrap Preparation Supervisor: Family Assistive Device Used Today: Wheelchair Lives with:: Children Appetite Description: Within Normal Limits Who helps w/ dressing change?: Home Health Why Do You Need Help?: Can't Reach Ulcer, Limited mobility, Unsafe leave home byself and Taxing effort to leave home [facility] Medical History (Updated 01/02/21 @ 15:16 by [...] 03/17/21 11:23) Confusion mold Allergy (Verified 03/17/21 11:) Sneezing NSAIDS (Non-Steroidal Anti-Inflamma Allergy (Verified 03/17/21 11:23) Rash Sulfa (Sulfonamide Antibiotics) Allergy (Verified 03/17/21 11:) Rash Wound/Ulcer Abdomen: Type: Surgical Wound (Non-healing surgical wound) Thickness: Full Bed Appearance: Beefy Red and Deale Percent of Wound Bed Granulated/Red: 100 Percent [...] 15 Dictated By: Wendy Scott APRN DD/ 113 Signed By: <Electronically signed by DG Scott> 03/17/21 1135 [facility] Work Phone: 1(375) 561-164203-17-2021 Progress note Author Wendy Scott [facility] January 22, 2021 1:13pm Note Date/Time January 22, 2021 1:1 3pm [facility] [address] [place] [address] Wound Center Provider Note Signed Patient: Vidhya Giordano MR#: [id number] : 1940 Acct:[id number] Age/Sex: 80 / F Copies to: MD Wendy Verdugo APRN~ HPI Date of Visit Date of Visit: Date of Service: 01/22/2021 Time of Service: 13:11 Narrative HPI: Vidhya is an 80 year old female presenting to [facility] wound care program for a follow [...] is there Wound/Ulcer History Mode of Arrival/ Scrap Preparation Supervisor: Family Assistive Device Used Today: Wheelchair Lives with:: Children Appetite Description: Within Normal Limits Who helps w/ dressing change?: Home Health Why Do You Need Help?: Can't Reach Ulcer, Limited mobility, Unsafe leave home byself and Taxing effort to leave home Smoking Status: Former smoker [facility] Medical History (Updated 01/02/21 @ 15:16 by [...] Thickness: Full Bed Appearance: Beefy Red and Deale Percent of Wound Bed Granulated/Red: 100 Percent [...] By: <Electronically signed by DG Scott> 01/22/211312 [facility] Work Phone: 1(486) 424-965302-25-2021 Progress note Author Nichole Giordano [facility] January 02, 2021 3:18pm Note Date/Time January 02, 2021 3:15pm [facility] [address] [place] [address] Wound Center Provider Note Signed Patient: Vidhya Giordano MR#: [id number] : 1940 Acct:[id number] Age/Sex: 80 / F Copies to: MD Nichole Verdugo APRN~ HPI Date of Visit Date of Visit: Date of Service: 01/02/2021 Time of Service: 15:14 Narrative HPI: Vidhya is an 80 year old female presenting to [facility] wound care program for an initial [...] is there Wound/Ulcer History Mode of Arrival/ Scrap Preparation Supervisor: Family Assistive Device Used Today: Wheelchair Lives with:: Children Appetite Description: Within Normal Limits Who helps w/ dressing change?: Home Health Why Do You Need Help?: Can't Reach Ulcer, Limited mobility, Unsafe leave home byself and Taxing effort to leave home Smoking Status: Former smoker [facility] Medical History (Updated 01/02/21 @ 15:16 by [...] Thickness: Full Bed Appearance: Beefy Red and Deale Percent of Wound Bed Granulated/Red: 100 Percent [...] 20 Dictated By: Nichole Giordano APRN DD/ 1514 Signed By: <Electronically signed by DG Giordano> 01/02/21 1518 [facility] Work Phone: 1(585) 856-503601-07-2021 Progress note Author Wendy Scott [facility] November 14, 2020 8:16am Note Date/Time November 14, 2020 8: 16am [facility] [address] [place] [address] Wound Center Provider Note Signed Patient: Vidhya Giordano MR#: [id number] : 1940 Acct:[id number] Age/Sex: 80 / F Copies to: MD Wendy Verdugo APRN~ HPI Date of Visit Date of Visit: Date of Service: 11/14/2020 Time of Service: 08:14 Narrative HPI: Vidhya is an 80 year old female presenting to [facility] wound care program for a follow [...] is there Wound/Ulcer History Mode of Arrival/ Scrap Preparation Supervisor: Family Assistive Device Used Today: Wheelchair Lives with:: Children Appetite Description: Within Normal Limits Who helps w/ dressing change?: Home Health Why Do You Need Help?: Can't Reach Ulcer, Limited mobility, Unsafe leave home byself and Taxing effort to leave home Smoking Status: Former smoker [facility] Medical History (Updated 11/14/20 @ 08:16 by [...] Wound/Ulcer Abdomen: Bed Appearance: Beefy Red and Deale Percent of Wound Bed Granulated/Red: 100 Percent [...] Signed By: <Electronically signed by DG Scott> 11/14/2016 [facility] Work Phone: 1(407) 630-593912-10-2020 Progress note Author Wendy Scott [facility] October 17, 2020 8:39am Note Date/Time October 17, 2020 8:35am [facility] [address] [place] [address] Wound Center Provider Note Signed Patient: Vidhya Giordano MR#: [id number] : 1940 Acct:[id number] Age/Sex: 80 / F Copies to: MD Wendy Verdugo APRN~ HPI Date of Visit Date of Visit: Date of Service: 10/17/2020 Time of Service: 08:32 Narrative HPI: Vidhya is an 80 year old female presenting to [facility] wound care program for an initial [...] is there Wound/Ulcer History Mode of Arrival/ Scrap Preparation Supervisor: Family Assistive Device Used Today: Wheelchair Lives with:: Children Appetite Description: Within Normal Limits Who helps w/ dressing change?: Home Health Why Do You Need Help?: Can't Reach Ulcer, Limited mobility, Unsafe leave home byself and Taxing effort to leave home Smoking Status: Former smoker [facility] Medical History (Updated 10/17/20 @ 08:34 by [...] 05/10/19 [History Confirmed 10/17/20] acetaminophen 650 mg MI Q6H PRN 05/10/19 [History Confirmed 10/17/20] allopurinol [...] Rash Wound/Ulcer Abdomen: Bed Appearance: Beefy Red, Deale and Hypergranulation Percent of Wound Bed Granulated/Red: [...] <Electronically signed by DG Scott> 10/17/20 0839 [facility] Work Phone: Evaluation note* Diagnosis Bilateral impacted cerumen- Primary Impacted cerumen documented [facility] this encounter [facility] Diagnosis Onset Date Resolution Status Dementia chronic Gastrointestinal fistula chr onic Inflammation chronic Limited mobility chronic Obesity chronic [id number] chronic Surgical wound, non healing chronic Candidiasis resolved [facility] Work Phone: Evaluation noteNo assessment information available [facility] Work Phone: Reason for referral (narrative)No reason for referral information availableC[facility] Work Phone: Summary Purpose Family History No Family History Records Found Relationship Condition Age at Onset Recorded Date/T scott mother Malignant neoplasm Unknown daughter Malignant neoplasm Unknown sister Malignant neoplasm Unknown Advance Directives No Advanced Directives Records Found Advance Directive Response Recorded Date/ Time Advance Directives No December 11:26am Hospital Course Note MR#: [id number] [facility] V[facility] Admitted: 06/27/2018 Discharged: 07/19/2018 Date of : 1940 Physician: Meg Abebe M.D. DISCHARGE SUMMARYDISCHARGE ATTENDING: Meg Abebe M.D.PRINCIPAL DIAGNOSIS: Enterocutaneous fistula.SECONDARY DIAGNOSES: Depression, hypertension, diabetes mellitus,neuropathy.PROCEDURES PERFORMED AND TREATMENT RENDERED: The patient is a [id number] with a history of ventral hernia repair. [...] Dementia Gastrointestinal fistula Inflammation Limited mobility Obesity [id number] Surgical wound, non healing Candidiasis Chief Complaint Admit Date Unknown March 07, 2025 7:3 6am Chief Complaint Admit Date Unknown July 08, 2025 12 :04pm Additional Source Comments INFORMATION SOURCE (unrecogn ized section and content) DATE CREATED AUTHOR 05/02/2018 [facility] DATE CREATED AUTHOR AUTHOR'S ORGANIZ ATION 10/02/2018 [facility] DATE CREATED AUTHOR AUTHOR'S ORGANIZ ATION 09/01/2022 [facility] DATE CREATED AUTHOR AUTHOR'S ORGANIZ ATION 01/31/2023 [facility] DATE CREATED AUTHOR AUTHOR'S ORGANIZ ATION 06/24/2024 [facility] DATE CREATED AUTHOR AUTHOR'S ORGANIZ ATION 06/18/2025 [facility] DATE CREATED AUTHOR AUTHOR'S ORGANIZ ATION 07/12/2025 [facility] DATE CREATED AUTHOR AUTHOR'S ORGANIZ ATION 07/16/2025 [facility] Care Teams (unrecognized sec tion and content) Home Energy Consultant Supervisor Relationship Specialty Start Date End Date Kael Adkins MD [address] [place] [address] PCP - General Family Medicine 12/13/23 Team [...] BE BASED ON THE PRIMARY CLINICAL RECORDS. [facility] provides no warranty or guarantee of the accuracy or completeness of information in this document.
[2025-08-25 17:23] LABS: Glucose Urine UA NEGATIVE (NEGATIVE)
[2025-08-25 17:34] LABS: Cast Seen? NONE SEEN #/LPF (NONE SEEN); Crystals Seen? None Seen #/HPF (None Seen); Urine Culture Indicated YES-FRMC
--- NOTE | 2025-08-25 17:42 | CT_ITS ---
[address] [address] Patient Name: VIDHYA REGALADO MRN: [id number] date: 1940 Sex: F Assigned Patient Location: ED.MAIN Current Patient Location: ED.MAIN Accession/Order Number: [id number] Exam Date: 08/25/2025 18:50 Report Date: 08/25/2025 19:21 At the request of: RENATA BRAGG MD Procedure: CT abdomen pelvis w con CT abdomen pelvis w con 08/25/2025 7:01 PM SIGNS AND SYMPTOMS: ^Possible fistula to abdominal wall, painful urination TECHNIQUE: Multidetector ct axial images of the abdomen and pelvis were obtained with IV contrast. Multiplanar reformats were performed and reviewed to further define anatomy and possible pathology. CT was performed with one or more of the following dose reduction techniques: Automated exposure control, adjustment of the mA and/or kV according to patient size, or use of iterative reconstruction technique. COMPARISON: 02/13/2025 FINDINGS: Lower Chest: Atherosclerotic changes are noted in the aortic annulus and coronary arteries. ABDOMEN: Liver: Within normal limits. Bile Ducts: Normal caliber. Gallbladder: Previously removed Pancreas: Within normal limits. Spleen: Within normal limits. Adrenals: Within normal limits. Kidneys: Simple cysts are noted in the renal cortices requiring no further follow-up. Renal cortical atrophy is present bilaterally. Pelvis: Reproductive Organs: No pelvic masses. Ureters: Within normal limits. Bladder: Within normal limits. Bowel: There is a large amount of stool within the rectum and sigmoid colon suggesting constipation/fecal impaction. No bowel obstruction. Mesenteric Lymph Nodes: No enlarged mesenteric lymph nodes. Peritoneum: No ascites or free air, no fluid collection. Vessels: Atherosclerotic changes are noted in the abdominal aorta and its branches. Retroperitoneum: Within normal limits. Abdominal Wall: Postsurgical changes are noted in the anterior abdominal wall. There is a small fluid collection containing gas with adjacent skin thickening slightly to the right of the area of scarring measuring 8 x 4 mm in greatest axial dimension presumably representing a small abscess. This may be the area of fistulization in question. There is adjacent small bowel in this location. There is accompanying subcutaneous gas in the surgical site suspicious for abscess. Bones: There is posterior fusion hardware about the thoracolumbar spine with posterior decompression in the lumbar spine. Severe degenerative changes are noted at L5-S1. Degenerative changes are noted in the hips and sacroiliac joints. CT/CT abdomen pelvis w con IMPRESSION: Postsurgical changes are noted in the anterior abdominal wall. There is a small fluid collection containing gas with adjacent skin thickening slightly to the right of the area of scarring measuring 8 x 4 mm in greatest axial dimension presumably representing a small abscess. This may be the area of fistulization in question. A small amount of adjacent subcutaneous gas possibly represents an abscess in this location. There is adjacent small bowel in this location. There is a large amount of stool within the rectum and sigmoid colon suggesting constipation/fecal impaction. Impression dictated by: Cheng Bartlett M.D. 08/25/2025 7:21 PM Dictation Location: [place] [address] Electronically authenticated by: [id number] Y Date: 08/25/2025 19:21
[2025-08-25 18:09] LABS: Hematocrit 41.2 % (36.0-48.0); Hemoglobin 12.7 g/dL (12.0-16.0); Immature Granulocytes Abs Auto 0.09 10^3/uL (0.00-0.03); Immature Granulocytes Pct Auto 0.9 % (0.0-0.5); Lymphocytes Absolute Auto 3.7 10^3/uL (1.2-3.8); Mean Corpuscular HGB Conc 30.8 g/dL (29.9-35.2); Mean Corpuscular Hemoglobin 27.8 pg (26.7-34.0); Mean Corpuscular Volume 90.2 fL (81.0-99.0); Platelet Count 369 10^3/uL (150-450); Red Blood Count 4.57 10^6/uL (4.20-5.40); White Blood Count 9.5 10^3/uL (4.0-11.0)
[2025-08-25 18:18] LABS: Anion Gap 11.3; Blood Urea Nitrogen 30.0 mg/dL (7.0-18.0); Calcium 9.7 mg/dL (8.5-10.1); Carbon Dioxide 28.8 mmol/L (21.0-32.0); Chloride 103 mmol/L (98-107); Estimated GFR (African America 43 (>=60 mL/min/1.73m^2); Estimated GFR (Non-African Ame 36 (>=60 mL/min/1.73m^2); Glucose 165 mg/dL (74-106); Potassium 4.1 mmol/L (3.5-5.1); Sodium 139 mmol/L (136-145)
[2025-08-26] VITALS (14 sets, daily range): BP systolic 81–103; BP diastolic 33–46; PULSE 81–92
== END 2025-08-26 04:02 | disposition home or self-care (01) ==
PROVIDERS: Emergency Medicine; Emergency Provider Internal Medicine; PCP Nurse Practitioner Family
DX: N39.0 Urinary tract infection, site not specified (principal); K59.00 Constipation, unspecified; K63.2 Fistula of intestine; Z87.891 Personal history of nicotine dependence
CPT/HCPCS: 36415; 74176; 74177; 80048; 81001; 85025; 87070; 87075; 87086; 87088; 87186; 99285; J0696; Q9966; Q9967